=== PATIENT | male | born 1955 | race Caucasian/White ===

== ENCOUNTER 2022-12-08 07:18 | Outpatient (OUT) | payer MEDICARE, SELFPAY ==
[2022-12-08 08:17] LABS: Anion Gap 14.1; BUN Creatinine Ratio 14.8; Carbon Dioxide 26.3 mmol/L (21.0-32.0); Chloride 103 mmol/L (98-107); Estimated GFR (African America >60 (>=60); Estimated GFR (Non-African Ame >60 (>=60); Glucose 160 mg/dL (74-106); Potassium 4.4 mmol/L (3.5-5.1); Sodium 139 mmol/L (136-145)
== END 2022-12-08 07:19 | disposition home or self-care (01) ==
LOC: LAB 07:23
PROVIDERS: PCP Family Medicine
DX: I50.9 Heart failure, unspecified (principal); I25.89 Other forms of chronic ischemic heart disease
CPT/HCPCS: 36415; 80048

== ENCOUNTER 2023-01-14 08:23 | Outpatient (OUT) | payer MEDICARE, SELFPAY ==
--- NOTE | 2023-01-14 08:27 | CT_ITS ---
The [address] [address] Patient Name: LORENA CAMPOS MRN: [id number] date: 1955 Sex: M Assigned Patient Location: CT Current Patient Location: CT Accession/Order Number: [id number] Exam Date: 01/14/2023 08:30 Report Date: 01/14/2023 16:01 At the request of: TOÑA CACERES Procedure: CT chest wo con CT chest wo con CLINICAL HISTORY: Solitary Pulmonary Nodule R91.1 COMPARISON: 01/19/2022. 03/30/2021. CT CHEST TECHNIQUE: Noncontrast axial CT images obtained from lung apices through lung bases. Coronal and sagittal reconstructions performed. Dose reduction techniques were achieved by using automated exposure control and/or adjustment of mA and/or kV according to patient size and/or use of iterative reconstruction technique. CT CHEST FINDINGS: Lower thyroid unremarkable. No axillary adenopathy. Thoracic spondylosis without acute bony process. Visualized upper abdomen is unremarkable. Cardiomegaly and coronary artery calcifications. No pericardial effusion. No mediastinal adenopathy. Lungs with minimal scarring. No active airspace opacities or effusions. No interval dominant lesion. No chronic interstitial lung disease or bronchiectasis. Anterior left lower lobe subpleural 6 mm noncalcified nodule on image 63 of series 3 is stable. 3 mm right lower lobe noncalcified nodule on image [address]/CT chest wo con IMPRESSION: Stable bilateral lower lobe nodules back to February 2021. Most consistent with benign granulomas. No interval acute process or other significant change. Electronically authenticated by: LONDON GARCIA Date: 01/14/2023 16:01
== END 2023-01-14 08:24 | disposition home or self-care (01) ==
LOC: CT 08:23
PROVIDERS: PCP Family Medicine; Visit Provider Internal Medicine
DX: R91.1 Solitary pulmonary nodule (principal)
CPT/HCPCS: 71250

== ENCOUNTER 2023-04-05 09:09 | Outpatient (OUT) | payer MEDICARE, SELFPAY ==
[2023-04-05 09:48] LABS: Estimated Average Glucose 154 mg/dL
== END 2023-04-05 09:10 | disposition home or self-care (01) ==
LOC: LAB 09:11
PROVIDERS: PCP Family Medicine; Visit Provider Family Medicine
DX: E11.65 Type 2 diabetes mellitus with hyperglycemia (principal)
CPT/HCPCS: 36415; 83036

== ENCOUNTER 2023-04-05 09:15 | Outpatient (OUT) | payer MEDICARE, SELFPAY ==
[2023-04-05 09:36] LABS: Basophils Percent Auto 0.5 % (0.2-2.0); Eosinophils Absolute Auto 0.2 10^3/uL (0.0-0.7); Hematocrit 40.9 % (42.0-54.0); Hemoglobin 13.7 g/dL (14.0-18.0); Immature Granulocytes Abs Auto 0.01 10^3/uL (0.00-0.03); Immature Granulocytes Pct Auto 0.2 % (0.0-0.5); Lymphocytes Absolute Auto 1.5 10^3/uL (1.2-3.8); Lymphocytes Percent Auto 26.6 % (20.5-60.0); Mean Corpuscular HGB Conc 33.5 g/dL (29.9-35.2); Mean Corpuscular Hemoglobin 30.5 pg (25.9-34.0); Mean Corpuscular Volume 91.1 fL (80.0-94.0); Mean Platelet Volume 10.6 fL (9.5-13.5); Monocytes Absolute Auto 0.5 10^3/uL (0.3-0.8); Monocytes Percent Auto 8.5 % (1.7-12.0); Neutrophils Absolute Auto 3.3 10^3/uL (1.4-6.5); Neutrophils Percent Auto 60.2 % (43.0-75.0); Platelet Count 140 10^3/uL (150-450); Red Blood Count 4.49 10^6/uL (4.70-6.10); Red Cell Distribution Width 13.1 % (11.0-15.0); White Blood Count 5.5 10^3/uL (4.0-11.0)
[2023-04-05 09:59] LABS: Anion Gap 14.6; BUN Creatinine Ratio 17.1; Calcium 8.9 mg/dL (8.5-10.1); Carbon Dioxide 25.7 mmol/L (21.0-32.0); Chloride 101 mmol/L (98-107); Estimated GFR (African America >60 (>=60); Estimated GFR (Non-African Ame >60 (>=60); Glucose 139 mg/dL (74-106); Potassium 4.3 mmol/L (3.5-5.1); Sodium 137 mmol/L (136-145)
== END 2023-04-05 09:16 | disposition home or self-care (01) ==
LOC: LAB 09:16
PROVIDERS: PCP Family Medicine
DX: R94.31 Abnormal electrocardiogram [ECG] [EKG] (principal); E11.65 Type 2 diabetes mellitus with hyperglycemia; Z79.899 Other long term (current) drug therapy; E78.5 Hyperlipidemia, unspecified; R53.83 Other fatigue
CPT/HCPCS: 36415; 80048; 83036; 85025

== ENCOUNTER 2023-08-13 07:07 | Outpatient (OUT) | payer MEDICARE, SELFPAY ==
--- OUTSIDE RECORDS SUMMARY | 2023-08-13 07:19 | XMS_ITS | CCD ---
Author Name Unknown Address [id number] [place] [address] Organization [facility] Care Team Providers Care Lay Out Inspector Name Role Phone Cristina Benítez Unavailable Adam Leo Unavailable Akil Morrow Unavailable Cristina Benítez Unavailable Unavailable Unavailable CRISTINA BENÍTEZ Primary Care Physician [phone] Cristina Benítez Un[address]. Cristina Benítez Primary Care Unav ailable Primo Stevens Attending Unavailable MD Kushal Page Admitting Unavailable NONE, XXXX Referring Unavailable MD Kushal Page Attending Unavailable MD Kushal Page Admitting Unavailable NONE, XXXX Referring Unavailable MD Kushal Page Attending Unavailable MD Kushal Page Admitting Unavailable MD Kushal Page Attending Unavailable MD Kushal Page Referring Unavailable MD Kushal Page Admitting Unavailable MD Kushal Page Attending Unavailable MD Kushal Page Admitting Unavailable MD Kushal Page Attending Unavailable NONE, XXXX Referring Unavailable MD Kushal Page Attending Unavailable MD Kushal Page Admitting Unavailable DR DOMINIC ROMEO LISTED Primary Care Unavailmelo ANTONIO, DR LORENA Banks Consulting Unavailable TOÑA MARIN Admitting Unavailable TOÑA MARIN Attending Unavailable TOÑA MARIN Consulting Unavailable MISC, DR FLORES Attending Unavailable JEYSON, DR CRISTINA Albarado Primary Care Unavailable MISC, DR FLORES Admitting Unavailable MISC, DR FLORES Consulting Unavailable MISC, DR FLORES Attending Unavailable DR CRISTINA BENÍTEZ Primary Care Unavailable MISC, DR FLORES Admitting Unavailable MISC, DR FLORES Consulting Unavailable BENÍTEZ, DR CRISTINA Albarado Admitting Unavailable BENÍTEZ, DR CRISTINA Albarado Primary Care Unavailable BENÍTEZ, DR CRISTINA Albarado Consulting Unavailable BENÍTEZ, DR CRISTINA Albarado Attending Unavailable Stevens, Dr. Oswald Attending Unavailable Benítez, Dr. Cristina Cunha Primary Care Unav ailable Stevens, Dr. Oswald Referring Unavailable Stevens, Dr. Oswald Attending Unavailable Jeyson, Dr. Cristina Cunha Primary Care Unav ailable Stevens, Dr. Oswald Referring Unavailable Benítez, Dr. Cristina Cunha Primary Care Unav ailable Stevens, Dr. Oswald Attending Unavailable Stevens, Dr. Oswald Referring Unavailable Benítez, Dr. Cristina Cunha Primary Care Unav ailable Stevens, Dr. Oswald Referring Unavailable Stevens, Dr. Oswald Attending Unavailable Stevens, Dr. Oswald Attending Unavailable Benítez, Dr. Cristina Cunha Primary Care Unav ailable Stevens, Dr. Oswald Referring Unavailable Benítez, Dr. Cristina Cunha Primary Care Unav ailable Stevens, Dr. Oswald Referring Unavailable Stevens, Dr. Oswald Attending Unavailable Stevens, Dr. Oswald Attending Unavailable Benítez, Dr. Cristina Cunha Primary Care Unav ailable Stevens, Dr. Oswald Referring Unavailable Kelly Jane Unavailable PRIMO STEVENS Attending Unavailable CRISTINA BENÍTEZ Primary Care Unavailable Allergies Allergy Classification Reported Allergen(s) Allergy Type Date of Onset Reaction(s) Facility (1 source) No Known Medication Allergies; Translations: [No Known Medication Allergies] Propensity to adverse reactions (disorder) [facility] (10 sources) dapagliflozin; Translations: [Farxiga TABS] Drug Allergy [place] [address] DO Work Phone: Medications Current Medications Medication Drug Class(es) Dates Sig (Normalized) Sig (Original) allopurinol 300 mg oral tablet (20 sources) Xanthine Oxidase Inhibitor Start: 06-03-2022 take 1 tablet by mouth every twenty-four hours Allopurinol 300 MG 1 tablet Orally Once a day for 90 days May, Active Start: 03-06-2020 allopurinol 30 0 mg Tab 150 mg = 0.5 tab(s), Oral, Daily, Gout pain Start Date: 03/06/20 Status: Ordered Allopurinol Acti ve apixaban 5 mg oral tablet (1 source) Factor Xa Inhibitor take 1 tablet by mouth twice daily Eliquis 5 mg oral tablet ; 1 tab(s) orally 2 times a day Quantity: 0 Refills: 0 Ordered: 07-Oct-2020 Andreia Petersen Generic Substitution Allowed Aspir-81 (8 sources) Aspir-81 Active clopidogrel 75 mg oral tablet (20 sources) [id number] Platelet Inhibitor Start: 2 End: 3 take 1 tablet by mouth once daily Plavix 75 mg Tab 75 mg = 1 tab(s), Oral, Daily, X 90 day(s), # 90 tab(s), Refills(s) 3, Pharmacy: [facility]/pharmacy #[id number], 178, cm, 01/23/22 14:05:00 EDT, Height/Length Dosing, 170, kg, 01/23/22 14:05:00 EDT, Weight Dosing Start Date: 01/24/22 Stop Date: 01/19/23 Status: Ordered Start: 01-23-2022 take 4 tablets by mouth once P lavix 75 mg Tab 300 mg = 4 tab(s), Oral, Once, 300 mg Loading Dose, # 4 tab(s), Refills(s) 0, Pharmacy: [facility]/pharmacy #[id number], 178, cm, 01/23/22 14:05:00 EDT, Height/Length Dosing, 170, kg, 01/23/22 14:05:00 EDT, Weight Dosing Start Date: 01/24/22 Status: Ordered Clopidogrel Bisu lfate Active take 1 tablet by inocencio th once daily Clopidogrel Bisulfate 75 MG Oral Tablet TAKE 1 TABLET DAILY. Quantity: 0 Refills: 0 Ordered: 21-Apr-2021 DO Active colchicine 0.6 mg oral capsule (20 sources) Start: 03-06-2020 take 1 capsule by mouth once daily as needed for pain colchicine 0.6 mg oral capsule 0.6 mg = 1 cap(s), Oral, Daily, PRN Gout pain, Refills(s) 0 Start Date: 03/06/20 Status: Ordered Colchicine 0.6 M G 1 tablet prn Active Colchicine 0.6 M G Oral Capsule as needed Quantity: 0 Refills: 0 Ordered: 06-Jul-2022 DO Active cyclobenzaprine hydrochloride 10 mg oral tablet (2 sources) Muscle Relaxant Start: 05-07-2023 take 1 tablet by mouth three times daily as needed for pain Cyclobenzaprine HCl 10 MG 1 tab(s) Orally tid prn prn back pain and stiffness Apr, Active 0.5 ml dulaglutide 1.5 mg/ml auto-injector (11 sources) GLP-1 Receptor Agonist Start: 06-29-2022 Trulicity 0.75 MG/0.5ML as directed Subcutaneous weekly for 28 days May, Active Trulicity 0.75 M G/0.5ML Subcutaneous Solution Pen-injector 1 weekly shot Quantity: 0 Refills: 0 Ordered: 06-Jul-2022 DO Active DULoxetine 60 mg delayed release oral capsule (6 sources) Serotonin and Norepinephrine Reuptake Inhibitor Start: 11-05-2022 take 1 capsule by mouth every twenty-four hours Cymbalta 60 MG 1 capsule Orally Once a day for 30 days Oct, Active losartan potassium 50 mg oral tablet (20 sources) Angiotensin 2 Receptor Sally Start: 10-09-2021 End: 10-04-2022 take 1 tablet by mouth twice daily losartan 50 mg Tab 50 mg = 1 tab(s), Oral, BID, X 90 day(s), # 180 tab(s), Refills(s) 3, Pharmacy: [facility]/pharmacy #[id number], 178, cm, 06/20/21 9:09:00 EST, Height/Length Dosing, 166, kg, 06/20/21 9:09:00 EST, Weight Dosing Start Date: 10/09/21 Stop Date: 10/04/22 Status: Ordered Losartan Potassi um Active take 1 tablet by mouth once dudley y Losartan Potassium 50 MG Oral Tablet TAKE 1 TABLET DAILY. Quantity: 0 Refills: 0 Ordered: 14-Apr-2021 DO Active Magnesium (3 sources) Magnesium 400 MG 1 tablet once a day Active metFORMIN hydrochloride 500 mg oral tablet (20 sources) Biguanide Start: 03-06-2020 take 1 tablet by mouth once daily metformin 500 mg ER Tab 500 mg = 1 tab(s), Oral, Daily, High blood sugar Start Date: 03/06/20 Status: Ordered take 1 tablet by mouth once dudley y metFORMIN HCl ER 750 MG TAKE 1 TABLET BY MOUTH EVERY DAY Active metFORMIN HCl Ac tive take 1 tablet by mouth twice alda ly metFORMIN 750 mg oral tablet, extended release ; 1 tab(s) orally 2 times a day Quantity: 0 Refills: 0 Ordered: 07-Oct-2020 Andreia Petersen Generic Substitution Allowed modafinil 200 mg oral tablet (4 sources) Sympathomimetic-like Agent take 1 tablet by mouth every twenty-four hours Modafinil 200 MG 1 tablet once a day Active take 1 tablet by mouth once dudley y Modafinil 100 MG Oral Tablet TAKE 1 TABLET DAILY. Quantity: 0 Refills: 0 Ordered: 15-Feb-2023 DO Active Multivitamin preparation (9 sources) Multivitamin Act trish take 1 tablet by mouth once dudley y Multiple Vitamins oral tablet ; 1 tab(s) orally once a day Quantity: 0 Refills: 0 Ordered: 07-Oct-2020 Andreia Petersen Generic Substitution Allowed Multivitamin, Therapeutic w/ Minerals (7 sources) Start: 06-21-2020 take 1 tablet by mouth once daily Multivitamin, Therapeutic w/ Minerals 1 tab(s), Oral, Daily, Prophylaxis Start Date: 06/21/20 Status: Ordered naproxen 500 mg oral tablet (7 sources) Nonsteroidal Anti-inflammatory Drug Start: 06-08-2020 take 1 tablet by mouth every twelve hours at mealtime as needed Naproxen 500 MG 1 tablet with food or milk as needed Orally every 12 hrs for 10 days May, Active Start: 06-08-2020 Naproxen 500 M G Oral Tablet Quantity: 20 Refills: 0 Ordered: 08-Jun-2020 DO Start : 08-Jun-2020 Complete predniSONE 20 mg oral tablet (2 sources) Start: 05-07-2023 take 1 tablet by mouth every twelve hours predniSONE 20 MG 1 tablet Orally bid for 5 day(s) Apr, Active 24 hr venlafaxine 37.5 mg extended release oral tablet (20 sources) Serotonin and Norepinephrine Reuptake Inhibitor Start: 06-21-2020 take 1 tablet by mouth once daily venlafaxine 37.5 mg oral tablet, extended release 37.5 mg = 1 tab(s), Oral, Daily, Anxiety Start Date: 06/21/20 Status: Ordered take 1 tablet by mouth once dudley y Venlafaxine HCl ER 225 MG TAKE 1 TABLET BY MOUTH EVERY DAY for 90 Active Venlafaxine HCl Active Completed/Discontinued Medications Medication Drug Class(es) Dates Sig (Normalized) Sig (Original) acetaminophen 325 mg / HYDROcodone bitartrate 5 mg oral tablet (2 sources) Opioid Agonist Start: 03-30-2021 HYDROcodone-Aceta minophen 5-325 MG Oral Tablet Quantity: 18 Refills: 0 Ordered: 30-Mar-2021 DO Start : 30-Mar-2021 Complete amoxicillin 875 mg / clavulanate 125 mg oral tablet (2 sources) Penicillin-class Antibacterial Start: 03-30-2021 Amoxicillin-Pot Clavulanate 875-125 MG Oral Tablet Quantity: 14 Refills: 0 Ordered: 30-Mar-2021 DO Start : 30-Mar-2021 Complete aspirin 81 mg delayed release oral tablet (20 sources) Platelet Aggregation Inhibitor, Nonsteroidal Anti-inflammatory Drug Start: 08-17-2022 Aspirin EC 81 MG TBEC TAKE 1 TABLET DAILY. Quantity: 90 Refills: 3 Ordered: 17-Aug-2022 Primo Stevens MD Start : 17-Aug-2022 Active Start: 01-21-2022 aspirin 81 mg oral capsule Refills(s) 0 Start Date: 01/21/22 Status: Ordered Aspirin 81 MG TA BS TAKE 1 TABLET DAILY. Quantity: 0 Refills: 0 Ordered: 31-Dec-2021 DO Active take 1 tablet by inocencio th once daily aspirin 81 mg oral tablet, chewable ; 1 tab(s) orally once a day Quantity: 0 Refills: 0 Ordered: 07-Oct-2020 Andreia Petersen Generic Substitution Allowed atorvastatin 40 mg oral tablet (20 sources) HMG-CoA Reductase Inhibitor Start: 09-22-2022 take 1 tablet by mouth at bedtime Atorvastatin Calcium 40 MG Oral Tablet TAKE 1 TABLET AT BEDTIME. Quantity: 90 Refills: 3 Ordered: 22-Sep-2022 Primo Stevens MD Start : 22-Sep-2022 Active Start: 05-17-2020 take 2 tablets by mo [facility] at bedtime atorvastatin 40 mg Tab 80 mg = 2 tab(s), Oral, Bedtime, Refills(s) 0, High cholesterol Start Date: 05/17/20 Status: Ordered Atorvastatin Davide cium Not-Taking take 1 tablet by inocencio th once daily Atorvastatin Calcium 10 MG Oral Tablet TAKE 1 TABLET DAILY DIRECTED. Quantity: 0 Refills: 0 Ordered: 21-Apr-2021 DO Active take 1 tablet by inocencio th once daily at bedtime atorvastatin 40 mg oral tablet ; 1 tab(s) orally once a day (at bedtime) Quantity: 0 Refills: 0 Ordered: 07-Oct-2020 Andreia Petersen Generic Substitution Allowed carvedilol 3.125 mg oral tablet (8 sources) alpha-Adrenergic Sally, beta-Adrenergic Sally Start: 07-19-2020 Carvedilol 3.125 MG Oral Tablet Quantity: 180 Refills: 0 Ordered: 19-Jul-2020 DO Start : 19-Jul-2020 Complete Carvedilol Activ e take 1 tablet by mouth twice alda ly carvedilol 3.125 mg oral tablet ; 1 tab(s) orally 2 times a day Quantity: 0 Refills: 0 Ordered: 07-Oct-2020 Anderia Petersen Status: Discontinued Generic Substitution Allowed dapagliflozin 10 mg oral tablet (4 sources) Sodium-Glucose Cotransporter 2 Inhibitor Start: 08-17-2022 take 1 tablet by mouth once daily in the morning Farxiga 10 MG Oral Tablet TAKE 1 TABLET BY MOUTH EVERY MORNING Quantity: 90 Refills: 0 Ordered: 17-Aug-2022 Primo Stevens MD Start : 17-Aug-2022 Active furosemide 20 mg oral tablet (9 sources) Loop Diuretic Start: 07-06-2022 take 0.5 tablet by mouth once daily Furosemide 20 MG Oral Tablet TAKE 0.5 TABLET Daily Quantity: 45 Refills: 3 Ordered: 06-Jul-2022 Primo Stevens MD Start : 06-Jul-2022 Active dose decreased Start: 07-01-2021 End: 04-09-2023 take 1 tablet by mouth once daily furosemide 20 mg Tab 20 mg = 1 tab(s), Oral, Daily, X 90 day(s), # 90 tab(s), Refills(s) 3, Pharmacy: [facility]/pharmacy #[id number], 179, cm, 03/09/22 11:22:00 EDT, Height/Length Dosing, 171, kg, 03/09/22 11:22:00 EDT, Weight Dosing Start Date: 04/14/22 Stop Date: 04/09/23 Status: Ordered Ketorolac (8 sources) Nonsteroidal Anti-inflammatory Drug, Cyclooxygenase Inhibitor Start: 01-31-2015 Toradol per 15 mg Jan, 60 mg magnesium oxide 400 mg oral tablet (20 sources) Start: 12-21-2022 take 1 tablet by mouth once daily Magnesium Oxide -Mg Supplement 400 (240 Mg) MG Oral Tablet TAKE 1 TABLET BY MOUTH EVERY DAY Quantity: 90 Refills: 3 Ordered: 21-Dec-2022 Kaity Rodriguez Start : 21-Dec-2022 Active Start: 10-09-2020 Magnesium Oxid e 400 MG Oral Tablet Quantity: 90 Refills: 0 Ordered: 02-Apr-2021 DO Start : 09-Oct-2020 Complete Start: 10-09-2020 End: 04-06-2021 take 1 tablet by mouth once daily magnesium oxide 400 mg (241.3 mg elemental magnesium) oral tablet ; 1 tab(s) orally once a day Quantity: 30 Refills: 5 Ordered: 09-Oct-2020 Deann Zuñiga Start: 09-Oct-2020 End: 06-Apr-2021 Generic Substitution Allowed Multi Vitamin Oral Tablet (20 sources) take 1 tablet by mouth once daily Multi Vitamin Oral Tablet TAKE 1 TABLET DAILY. Quantity: 0 Refills: 0 Ordered: 14-Apr-2021 DO Active omeprazole 20 mg delayed release oral capsule (20 sources) Proton Pump Inhibitor Start: 12-09-19 22 take 1 capsule by mouth once daily Omeprazole 20 MG Oral Capsule Delayed Release TAKE 1 CAPSULE Daily Quantity: 90 Refills: 3 Ordered: 08-Dec-2021 DO Start : 08-Dec-2021 Active rivaroxaban 20 mg oral tablet (20 sources) Factor Xa Inhibitor Start: 04-23-20 21 take 1 tablet by mouth once daily at mealtime Xarelto 20 MG Oral Tablet TAKE 1 TABLET DAILY WITH BIGGEST MEAL OF THE DAY. Quantity: 90 Refills: 0 Ordered: 03-Feb-2023 Primo Stevens MD Start : 23-Apr-2021 Active rosuvastatin calcium 20 mg oral tablet (15 sources) HMG-CoA Reductase Inhibitor Start: 08-18-19 23 take 1 tablet by mouth once daily Rosuvastatin Calcium 20 MG Oral Tablet TAKE 1 TABLET DAILY. Quantity: 90 Refills: 0 Ordered: 17-Aug-2022 Primo Stevens MD Start : 17-Aug-2022 Active sacubitril 49 mg / valsartan 51 mg oral tablet (19 sources) Angiotensin 2 Receptor Sally Start: 11-24-19 take 1 tablet by mouth twice daily Entresto 49-51 MG Oral Tablet TAKE 1 TABLET BY MOUTH TWICE A DAY Quantity: 180 Refills: 3 Ordered: 23-Nov-2022 Primo Stevens MD Start : 23-Nov-2022 Active dose change Start: 07-06-2022 take 1 tablet by inocencio th twice daily Entresto 24-26 MG Oral Tablet TAKE 1 TABLET BY MOUTH TWICE A DAY Quantity: 180 Refills: 0 Ordered: 17-Aug-2022 Primo Stevens MD Start : 06-Jul-2022 Active stop losartan/ new start sotalol hydrochloride 80 mg oral tablet (20 sources) Antiarrhythmic Start: 10-05-2022 take 1 tablet by mouth twice daily Sotalol HCl - 80 MG Oral Tablet TAKE 1 TABLET BY MOUTH TWICE DAILY Quantity: 180 Refills: 3 Ordered: 05-Oct-2022 Primo Stevens MD Start : 05-Oct-2022 Active Start: 07-07-2021 End: 05-29-2023 take 1 tablet by mouth twice daily Sotalol HCl - 120 MG Oral Tablet take 1 tablet by mouth twice a day Quantity: 180 Refills: 3 Ordered: 07-Jul-2021 Adam Leo MD Start : 07-Jul-2021 Active Start: 10-09-2020 End: 04-06-2021 take 1 tablet by mouth twice daily sotalol 120 mg Tab 120 mg = 1 tab(s), Oral, BID, Rx per DR Leo, # 60 tab(s), Refills(s) 0, other reason (Rx) Start Date: 11/05/20 Status: Ordered sulfamethoxazole 800 mg / trimethoprim 160 mg oral tablet (2 sources) Dihydrofolate Reductase Inhibitor Antibacterial, Sulfonamide Antimicrobial Start: 04-08-2021 Sulfamethoxazole-Trimethopri m 800-160 MG Oral Tablet Quantity: 14 Refills: 0 Ordered: 08-Apr-2021 DO Start : 08-Apr-2021 Complete triamcinolone acetonide 40 mg/ml injectable suspension (10 sources) Corticosteroid Start: 05-07-2023 Kenalog-40 Apr, 40 m g Start: 10-25-2018 ELIZABETH Newton 10 leandro ravi September, 60 mg Problems Active Problems Problem Classification Problem Date Documented Date Episodic/Chronic Administrative/social admission (17 sources) Follow-up status; Translations: [Other specified counseling] Episodic Anxiety disorders (7 sources) Anxiety 06-21-2020 Chronic Blindness and vision defects (16 sources) Visual impairment; Translations: [Unqualified visual loss, 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 Cardiac dysrhythmias (20 sources) Persistent atrial fibrillation; Translations: [Atrial fibrillation] Onset: 3 2020 Chronic Coagulation and hemorrhagic disorders (2 sources) Other thrombophilia; Translations: [Other thrombophilia (CMS/HCC)] Onset: 4 Chronic Conduction disorders (10 sources) Chronotropic incompetence; Translations: [Other specified conduction disorders] Chronic Congestive heart failure; nonhypertensive (19 sources) Congestive heart failure stage C; Translations: [Congestive heart failure, unspecified] Onset: 3 Chronic Coronary atherosclerosis and other heart disease (20 sources) Coronary arteriosclerosis; Translations: [Coronary atherosclerosis of unspecified type of vessel, [place] or graft] Onset: 3 Chronic Coronary atherosclerosis and other heart disease (16 sources) Stented coronary artery; Translations: [Percutaneous transluminal coronary angioplasty status] Episodic Diabetes mellitus with complications (14 sources) Type 2 diabetes mellitus; Translations: [Type 2 diabetes mellitus with hyperglycemia] Onset: 3 Chronic Diabetes mellitus without complication (17 sources) Diabetes mellitus; Translations: [Diabetes mellitus without mention of complication, type II or unspecified type, not stated as uncontrolled] Onset: 3 Chronic Diabetes mellitus without complication (16 sources) Prediabetes; Translations: [Hyperglycemia] Onset: 3 06-21-2020 Episodic Disorders of lipid metabolism (20 sources) Hypercholesterolemia; Translations: [Hyperlipidemia] Onset: 3 06-21-2020 Chronic Esophageal disorders (7 sources) Gastroesophageal reflux disease 04-09-2016 Chronic Essential hypertension (18 sources) Hypertensive disorder; Translations: [Essential hypertension] Onset: 3 04-18-2020 Chronic Fracture of upper limb (7 sources) Fracture at wrist and/or hand level 06-21-2020 Episodic Gout and other crystal arthropathies (15 sources) Gout; Translations: [Gouty arthritis of toe] 06-21-2020 Chronic Malaise and fatigue (7 sources) Fatigue; Translations: [Other malaise and fatigue] Episodic Nonspecific chest pain (1 source) Chest pain; Translations: [Chest pain, unspecified] Episodic Other aftercare (20 sources) Drug therapy finding; Translations: [Long-term (current) use of other medications] Episodic Other aftercare (16 sources) Long-term current use of anticoagulant; Translations: [Long-term (current) use of anticoagulants] Episodic Other aftercare (10 sources) Treatment changed; Translations: [Long-term (current) use of other medications] Episodic Other aftercare (3 sources) Other continuous churn buttermaker (current) drug therapy; Translations: [OTH THRILL PERFORMER CURRENT DRUG THERAPY] Onset: 3 Episodic Other aftercare (1 source) [facility] (current) use of anticoagulants; Translations: [THRILL PERFORMER CURRNT USE ANTICOAGULANTS] Onset: 3 Episodic Other connective tissue disease (10 sources) Muscle pain; Translations: [Myalgia and myositis, unspecified] Episodic Other infections; including parasitic (14 sources) Personal history of other infectious and parasitic diseases; Translations: [Personal history of COVID-19] Episodic Other lower respiratory disease (20 sources) Dyspnea; Translations: [Shortness of breath] Episodic Other lower respiratory disease (1 source) Shortness of breath; Translations: [Shortness of breath] Onset: 3 Episodic Other nutritional; endocrine; and metabolic disorders (4 sources) Morbid obesity; Translations: [Morbid obesity] Chronic Other nutritional; endocrine; and metabolic disorders (20 sources) Body mass index 40+ - severely obese; Translations: [Morbid obesity] Chronic Other nutritional; endocrine; and metabolic disorders (1 source) Body mass index (BMI) 50.0-59.9, adult Chronic Other screening for suspected conditions (not mental disorders or infectious disease) (20 sources) Electrocardiogram abnormal; Translations: [Nonspecific abnormal electrocardiogram [ECG] [EKG]] Onset: 3 Episodic Daphne-; endo-; and myocarditis; cardiomyopathy (except that caused by tuberculosis or sexually transmitted disease) (20 sources) Cardiomyopathy; Translations: [Other primary cardiomyopathies] Onset: Chronic Residual codes; unclassified (8 sources) Sleep apnea; Translations: [Obstructive sleep apnea (adult)(pediatric)] 06-21-2020 Chronic Residual codes; unclassified (19 sources) Obstructive sleep apnea syndrome; Translations: [Obstructive sleep apnea (adult)(pediatric)] Chronic Residual codes; unclassified (1 source) Obstructive sleep apnea (adult) (pediatric) Chronic Residual codes; unclassified (9 sources) Non-smoker; Translations: [Other specified conditions influencing health status] Episodic Residual codes; unclassified (16 sources) Poor short-term memory ; Translations: [Memory loss] Episodic Sprains and strains (1 source) Strain of muscle, fascia and tendon of lower back, initial encounter Episodic Transient cerebral ischemia (16 sources) Transient cerebral ischemia; Translations: [Unspecified transient cerebral ischemia] Chronic Unclassified (2 sources) DRUG LOADING WITH SOTALOL 09-26-2020 Comment on above: DRUG LOADING WITH SO TALOL Viral infection (7 sources) Disease caused by 2019-nCoV; Translations: [Other specified viral infection] Episodic Past or Other Problems Problem Classification Problem Date Documented Da te Episodic/Chronic Other lower respiratory disease (4 sources) Solitary pulmonary nodule; Translations: [SOLITARY PULMONARY NODULE] Onset: 01-19-2022 Episodic Residual codes; unclassified (20 sources) H/O: obesity; Translations: [Personal history of other specified diseases] Resolved: 12-31-2021 Episodic Unclassified (16 sources) Never smoked tobacco; Translations: [Never smoker] Unclassified (16 sources) Patient status finding; Translations: [Patient new to provider] Results Test Name Value Interpretation Reference Range Facility Office Visit (Cardiology)on 02-15-2023 Follow-up visit Diagnoses/Problems Assessed Anticoagulant long-term use (V58.61) (Z79.01) CAD (coronary artery disease) (414.00) (I25.10) CHF (NYHA class II, ACC/AHA stage C) (428.0) (I50.9) Diabetes mellitus (250.00) (E11.9) Encounter to discuss test results (V65.49) (Z71.2) High risk medication use (V58.69) (Z79.899) 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) Morbid obesity with BMI of 50.0-59.9, adult (278.01,V85.43) (E66.01,Z68.43) Obstructive sleep apnea syndrome (327.23) (G47.33) Personal history of COVID-19 (V12.09) (Z86.16) SOB (shortness of breath) (786.05) (R06.02) Stented coronary artery (V45.82) (Z95.5) TIA (transient ischemic attack) (435.9) (G45.9) 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) Never smoker Hyperlipidemia (272.4) (E78.5) Fatigue (780.79) (R53.83) Cardiomyopathy (425.4) (I42.9) Sleep apnea treated with continuous positive airway pressure (CPAP) (327.23) (G47.30) Atrial fibrillation (427.31) (I48.91) Abnormal EKG (794.31) (R94.31) Orders Abnormal EKG Basic Metabolic Panel; Status:Active - Retrospective Authorization; Requested for:[id number]; Abnormal EKG, Fatigue, High risk medication use, Hyperlipidemia Complete Blood Count; Status:Active - Retrospective Authorization; Requested for:[id number]; Atrial fibrillation IO EKG Electrocardiogram- 12 Lead; Status:Complete; Done: [id number] Morbid obesity with BMI of 50.0-59.9, adult Healthy Weight Tips; Status:Complete - Retrospective Authorization; Done: [id number] Some eating tips that can help you lose weight.; Status:Complete - Retrospective Authorization; Done: [id number] SocHx: Never smoker Tobacco Use Screening; Status:Complete; Done: [id number] Patient Instructions Please bring all medicines, vitamins, and herbal supplements with you when you come to the office. Prescriptions will not be filled unless you are compliant with your follow up appointments or have a follow up appointment scheduled as per instruction of your physician. Refills should be requested at the time of your visit. Fall Prevention education given labs Follow up in 5 months Chief Complaint LORENA CAMPOS is being seen for a 3 month follow-up of. History of Present Illness Patient is accompanied by to the office. Most recently seen October 2022 at which time Entresto dose was uptitrated. Blood pressure is now at target no symptoms of lightheadedness presyncope or syncope. Continues to have exertional shortness of breath which is clearly multifactorial. The treadmill stress test in August of this year showed profound chronotropic blunting. At that time we discontinued metoprolol. We talked about down titrating sotalol, but there is concerned that atrial fibrillation may recur, and patient historically has not tolerated atrial fibrillation. His morbid obesity is also contributory to his shortness of breath. He is not interested in pursuing bariatric surgical options. He and his have joined Novad[employer]. An EKG was done today, reviewed,No recent laboratory data to review.Reviewed Holter monitor results. Reviewed treadmill stress test results History so far : 1. Persistent atrial fibrillation controlled on sotalol and anticoagulated with Eliquis. 2. Sinus node dysfunction. Patient had profound bradycardia on combination of beta-sally and sotalol, currently remains on sotalol. 3. Coronary artery disease status post angioplasty with drug-eluting stent to the mid right coronary artery on May 16, 2020. 4. Dyslipidemia on high-dose high intensity statin. 5. Hypertension, controlled 6. Morbid obesity with a BMI of 52.95. 7. Diabetes mellitus, uncontrolled, elevated hemoglobin A1c 8. Obstructive sleep apnea on CPAP. 9. Cardiomyopathy with a left ventricular ejection fraction of 40 to 45% per 2D echocardiogram dated June 07, 2020, [place] Heart [employer] class II, stage B heart failure. 10. Gouty arthritis. Patient remains on allopurinol, no recent recurrence. 11. Abnormal perfusion imaging showing an LV ejection fraction in the 20s, with subsequent cardiac catheterization showing LV ejection fraction of 45%, this was done at [facility] and that particular Catheterization did not show any flow-limiting disease. The perfusion study was done in December 2021, cardiac catheterization from January 2022 showed nonobstructive coronary artery disease of the left system widely patent RCA stent LVEF 45% moderately dilated left ventricular chamber dimension mildly elevated LV end-diastolic pressure. 12. General stress test August 2022-4.6 METS, 72% HPJ maximum heart rate, developed shortness of breath and the study had to be terminated. Only exercised for 3 minutes per Benja protocol. There was also blunting of blood pressure response. This is consistent with chronotropic blunting. 13. [id number] score is 6 14.48-hour Holter monitor-minimum heart rate 46 bpm average heart rate 66 bpm maximum heart rate 99 bpm ventricular patience (more content not included)... Normal [employer] Tobacco Screening.on 023 Fall risk assessment b) One or more fall s in the last year [facility] 250 DO Work Phone: Tobacco use status [facility] b) No [facility] [facility] 250 DO Work Phone: Cardiovasc Arrhythmia Result son 11-30-2022 Cardiovasc Arrhythmia Results Reason For Visit Reason for Visit: Holter Monitor: LORENA is here for the application of a 48 hour Holter monitor. Ordering Physician: Dr. Primo Stevens MD Diagnosis: a-fib NO equipment agreement signed. LORENA understands monitor is to be returned on: 12/02/2022 Monitor number [id number] applied. Holter monitor returned and downloaded. Holter monitor returned and downloaded. 12/03/2022 Holter monitor printed and emailed to [place] [facility] and placed on Dr. Primo Stevens MD desk to dictate. Procedure 48-hour Holter monitor is performed to evaluate heart rate variability in patient with atrial fibrillation. Patient is 67 years old. Minimum heart rate 46 bpm occurring at 9:16 AM, average heart rate 66 bpm maximum heart rate 99 bpm. There were a total of 2164 ventricular ectopic beats, comprising 0.6% of the total QRS complexes. There was 1 ventricular triplet and 12 ventricular couplets. There were a total of 2003 supraventricular ectopic beats, comprising 1.1% of the total QRS complexes. There was a 3 beat atrial run at 6:30 PM, at a rate of 124 bpm. Longest R to R interval was 1.7 seconds and occurred at 5:37 AM. Activity log was not provided Patient did not report any cardiac symptoms. There was no atrial fibrillation identified. Summary: 1. Overall blunted heart rate, heart there were no tachy or bradycardia dysrhythmias. 2. Patient was in sinus rhythm throughout, with the exception of isolated ventricular and supraventricular premature beats. 3. Patient did not report any symptoms Diagnosis/Problems Assessed Atrial fibrillation (427.31) (I48.91) Future Appointments Date/TimeProviderSpeci altySite 02/15/2023 12:30 PMRodney Primo, [id number] [facility] [address] 250 DO Signatures Electronically signed by : Primo Stevens MD; Feb 15 2023 2:58PM EST (Author) Normal [facility] Office Visit (Cardiology)on 11-23-2022 Follow-up visit Diagnoses/Problems Assessed Atrial fibrillation (427.31) (I48.91) CAD (coronary artery disease) (414.00) (I25.10) Cardiomyopathy (425.4) (I42.9) CHF (NYHA class II, ACC/AHA stage C) (428.0) (I50.9) Diabetes mellitus (250.00) (E11.9) Hyperlipidemia (272.4) (E78.5) 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) Obstructive sleep apnea syndrome (327.23) (G47.33) Never smoker Morbid obesity with BMI of 50.0-59.9, adult (278.01,V85.43) (E66.01,Z68.43) Medication list inaccurate SOB (shortness of breath) (786.05) (R06.02) Fatigue (780.79) (R53.83) Medication course changed (V58.69) (Z79.899) Personal history of COVID-19 (V12.09) (Z86.16) Anticoagulant long-term use (V58.61) (Z79.01) Myalgia (729.1) (M79.10) Orders Atrial fibrillation IO EKG Electrocardiogram- 12 Lead; Status:Complete; Done: 23Nov2022 IO Holter Monitor up to 48 Hrs; Status:Active - Perform Order,Retrospective Authorization; Requested for:23Nov2022; CHF (NYHA class II, ACC/AHA stage C) Start: Entresto 49-51 MG Oral Tablet; TAKE 1 TABLET BY MOUTH TWICE A DAY CHF (NYHA class II, ACC/AHA stage C), Ischemic heart disease with chronotropic incompetence Basic Metabolic Panel; Status:Active - Retrospective Authorization; Requested for:[id number]; Morbid obesity with BMI of 50.0-59.9, adult Healthy Weight Tips; Status:Complete - Retrospective Authorization; Done: 23Nov2022 Some eating tips that can help you lose weight.; Status:Complete - Retrospective Authorization; Done: 23Nov2022 SocHx: Never smoker Tobacco Use Screening; Status:Complete; Done: 23Nov2022 Patient Instructions Please bring all medicines, vitamins, and herbal supplements with you when you come to the office. Prescriptions will not be filled unless you are compliant with your follow up appointments or have a follow up appointment scheduled as per instruction of your physician. Refills should be requested at the time of your visit. Follow up in [3 ] months Chief Complaint LORENA CAMPOS is being seen for 6-8 week follow up. History of Present Illness Patient was most recently seen by me September 2022 and presents for follow-up. Did not have his medications or list with him, says his lays on his medications out, and she could not accompany him to the office today. At last office visit Patient's beta-blockers had to be discontinued because of profound bradycardia and fatigue on the combination. Currently remains on sotalol 80 mg p.o. twice daily, EKG shows sinus rhythm at 82 bpm KS interval 158 ms QRS duration 102 ms QTc 450 ms, isolated ventricular premature beat is noted, and there is poor R wave progression. Low volts in general in the anterior and lateral precordial leads. Tolerating current medications, continues to remain very tired, BMI is excessive, clinically trace lower extremity edema, could not afford Farxiga, hence did not start. EKG today shows sinus rhythm at 82 bpm with isolated supraventricular premature beats, poor R wave progression across the anterior precordial leads, normal intervals, no significant change compared to EKG of 623 with the exception of supraventricular premature beats that are now noted. 1 History so far : 1. Persistent atrial fibrillation controlled on sotalol and anticoagulated with Eliquis. 2. Sinus node dysfunction. Patient had profound bradycardia on combination of beta-sally and sotalol, currently remains on sotalol. 3. Coronary artery disease status post angioplasty with drug-eluting stent to the mid right coronary artery on May 16, 2020. 4. Dyslipidemia on high-dose high intensity statin. 5. Hypertension, controlled 6. Morbid obesity with a BMI of 52.95. 7. Diabetes mellitus, uncontrolled, elevated hemoglobin A1c, Trulicity was added recently. 8. Obstructive sleep apnea on CPAP. 9. Cardiomyopathy with a left ventricular ejection fraction of 40 to 45% per 2D echocardiogram dated June 07, 2020, [place] Heart [employer] class II, stage B heart failure. 10. Gouty arthritis. Patient remains on allopurinol, no recent recurrence. 11. Abnormal perfusion imaging showing an LV ejection fraction in the 20s, with subsequent cardiac catheterization showing LV ejection fraction of 45%, this was done at [facility] and that particular Catheterization did not show any flow-limiting disease. The perfusion study was done in December 2021, cardiac catheterization from January 2022 showed nonobstructive coronary artery disease of the left system widely patent RCA stent LVEF 45% moderately dilated left ventricular chamber dimension mildly elevated LV end-diastolic pressure. 12. General stress test August 2022-4.6 METS, 72% HPJ maximum heart rate, developed shortness of breath and the study had to be terminated. Only exercised for 3 minutes per Benja protocol. There was also blunting of blood pressure response. This is consistent with chronotropic blunting. 13. [id number] score is 6 Laboratory data from September 2022 s (more content not included)... Normal [employer] Tobacco Screening.on 023 Adult depression screening assessment No [facility] 250 DO Work Phone: Fall risk assessment a) No falls within the last year [facility] 250 DO Work Phone: Tobacco use status [facility] b) No [facility] 250 DO Work Phone: BNPon 10-27-2022 Natriuretic peptide B (Bld) [Mass/Vol] 80.0 pg/mL Normal <=900.0 [facility] Comment on above: Performed By: #### B OYSTER GROWER, CK, TSH #### [facility] [address], [place] [address] Dr. Maria T Canela CPKon 10-27-2022 CK [Catalytic activity/Vol] 302 U/L Normal 39-308 [facility] Comment on above: Performed By: #### B OYSTER GROWER, CK, TSH #### [facility] [address], [place] [address] Dr. Maria T Canela FREE T4on 10-27-2022 Free T4 [Mass/Vol] 0.87 ng/dL Normal 0.76-1.46 [facility] Comment on above: Performed By: #### F T4 ####[facility] [id number] [place] [id number]. Maria T Canela GLYCOHEMOGLOBIN A1Con 2022 ADA RECOMMENDATION SEE BELOW Normal [facility] Comment on above: Result Comment: ADA RECOMMENDED LIMIT 4.0 - 6.0 ADA THERAPEUTIC TARGET < 7.0 ACTION SUGGESTED > 7.0 Performed By: #### A 1C #### [facility] [address] [place] [address] [address] Maria T Canela Glucose [Mass/Vol] 169 mg/dL Normal [facility] Comment on above: Performed By: #### A 1C #### [facility] [address] [address] [address] Maria T Canela HbA1c (Bld) [Mass fraction] 7.5 % Critically high 4.5-6.2 [facility] Comment on above: Performed By: #### A 1C #### [facility] [address] [address] [address] Maria T Canela [facility] 20[facility] SED RATE 15 mm/hr Normal <=20 [facility] Comment on above: Performed By: #### S EDR ####[facility] [address] [place] [id number]. Maria T Canela TSHon 10-27-2022 TSH 1.477 uIU/mL Normal 0.358-3.740 [facility] Comment on above: Performed By: #### B OYSTER GROWER, CK, TSH #### [facility] [address] [address] [address] Maria T Canela Office Visit (Cardiology)on 10-05-2022 Follow-up visit Diagnoses/Problems Assessed High risk medication use (V58.69) (Z79.899) Diabetes mellitus (250.00) (E11.9) CHF (NYHA class II, ACC/AHA stage C) (428.0) (I50.9) Atrial fibrillation (427.31) (I48.91) Anticoagulant long-term use (V58.61) (Z79.01) CAD (coronary artery disease) (414.00) (I25.10) Hyperlipidemia (272.4) (E78.5) Obstructive sleep apnea syndrome (327.23) (G47.33) Short-term memory loss (780.93) (R41.3) SOB (shortness of breath) (786.05) (R06.02) Stented coronary artery (V45.82) (Z95.5) Encounter to discuss test results (V65.49) (Z71.2) Morbid obesity with BMI of 50.0-59.9, adult (278.01,V85.43) (E66.01,Z68.43) Never smoker Personal history of COVID-19 (V12.09) (Z86.16) Orders Anticoagulant long-term use, Atrial fibrillation, CAD (coronary artery disease), Cardiomyopathy, CHF (NYHA class II, ACC/AHA stage C), Diabetes mellitus, High risk medication use, Hyperlipidemia Brain Natriuretic Peptide BNP; Status:Active - Retrospective Authorization; Requested for:05Oct2022; Creatine Kinase, Level; Status:Active - Retrospective Authorization; Requested for:05Oct2022; Sedimentation Rate, Erythrocyte; Status:Active - Retrospective Authorization; Requested for:05Oct2022; T4 - Free Thyroxine, Serum; Status:Active - Retrospective Authorization; Requested for:05Oct2022; TSH - Thyroid Stimulating Hormone, Serum; Status:Active - Retrospective Authorization; Requested for:05Oct2022; Atrial fibrillation Start: Sotalol HCl - 80 MG Oral Tablet; TAKE 1 TABLET BY MOUTH TWICE DAILY IO EKG Electrocardiogram- 12 Lead; Status:Complete; Done: 05Oct2022 Morbid obesity with BMI of 50.0-59.9, adult Healthy Weight Tips; Status:Complete - Retrospective Authorization; Done: 05Oct2022 Some eating tips that can help you lose weight.; Status:Complete - Retrospective Authorization; Done: 05Oct2022 SocHx: Never smoker Tobacco Use Screening; Status:Complete; Done: 05Oct2022 Patient Instructions Please bring all medicines, vitamins, and herbal supplements with you when you come to the office. Prescriptions will not be filled unless you are compliant with your follow up appointments or have a follow up appointment scheduled as per instruction of your physician. Refills should be requested at the time of your visit. patient to hold Rosuvastatin for 4 weeks to see if improvement from joint pain. Follow up in 6-8 weeks Chief Complaint LORENA CAMPOS is being seen for test results. History of Present Illness Patient with chronic systolic heart failure functional class III, progressive and persistent fatigue and some shortness of breath, morbid obesity, obstructive sleep apnea, on high risk medication, presents for follow-up after testing. At the last office visit I was considering the possibility of chronotropic blunting to be a cause of his shortness of breath. On history no stress test August 2022 he achieved a workload of 4.6 METS and only 72% of his age-predicted maximum heart rate. He had to stop exercising after 3 minutes. Blood pressure response to exercise was also blunted. Patient says he has no follow-up with EP service, and does not wish to establish follow-up at this time. Reports compliance with CPAP therapy. Also complains of diffuse aches and pains. This may or may not be related to rosuvastatin, but would be easy to figure out, we will give him a holiday from rosuvastatin. Remains on Xarelto, no bleeding diathesis. EKG was reviewed. Significant sinus bradycardia is noted. Compared to prior EKG there has been a further drop in heart rate. History so far : 1. Persistent atrial fibrillation controlled on sotalol and anticoagulated with Eliquis. 2. Sinus node dysfunction. Patient had profound bradycardia on combination of beta-sally and sotalol, currently remains on sotalol. 3. Coronary artery disease status post angioplasty with drug-eluting stent to the mid right coronary artery on May 16, 2020. 4. Dyslipidemia on high-dose high intensity statin. 5. Hypertension, controlled 6. Morbid obesity with a BMI of 52.95. 7. Diabetes mellitus, uncontrolled, elevated hemoglobin A1c, Trulicity was added recently. 8. Obstructive sleep apnea on CPAP. 9. Cardiomyopathy with a left ventricular ejection fraction of 40 to 45% per 2D echocardiogram dated June 07, 2020, [place] Heart [employer] class II, stage B heart failure. 10. Gouty arthritis. Patient remains on allopurinol, no recent recurrence. 11. Abnormal perfusion imaging showing an LV ejection fraction in the 20s, with subsequent cardiac catheterization showing LV ejection fraction of 45%, this was done at [facility] and that particular Catheterization did not show any flow-limiting disease. The perfusion study was done in December 2021, cardiac catheterization from January 2022 showed nonobstructive coronary artery disease of the left system widely patent RCA stent LVEF 45% moderately dilated left ventricular chamber dimension mildly elevated L (more content not included)... Normal [employer] Tobacco Screening.on 023 Tobacco use status [facility] b) No [facility] [facility] 250 DO Work Phone: Heart and Vascular Office/Cl inic Noteon 09-26-2022 Heart and Vascular Office/Clinic Note History of Present Illness Mr. Campos is a 66 year old male, morbidly obese with obstructive sleep apnea who uses CPAP, hypertension, unknown cholesterol but on atorvastatin, lifelong non-smoker, who returns to Cardiology office for follow up after extensive cardiac testing. He was previously seen in the office by Dr Saldaña for further evaluation of labile BP, near syncope, dizziness, and dyspnea on exertion. He had a 12 lead EKG which revealed atrial fibrillation. His orthostatic VS were negative in office. He had echocardiogram performed at [facility], which was normal. He was ordered Event Monitor, Carotid US, Stress Testing, and Ambulatory BP monitoring. Patient underwent a nuclear stress test in February 2020 which demonstrated a large fixed defect inferiorly and anterior ischemia. Patient was seen by me in consultation in the office recommended a heart catheterization which took place on 05/16/2020 with the following results: CONCLUSIONS: 1. Minimal nonobstructive disease of the left anterior descending with angiographically normal diagonal #1 and diagonal #2. 2. Angiographically normal left circumflex. 3. Significant mid-right coronary artery stenosis in a dominant right coronary artery. 4. Moderate to severe left ventricular dysfunction with regional wall motion abnormalities of the mid-anteroapical and inferoapical henry. LVEF approximate 35 to 40%. 5. Normal LVDP. It was found the patient required intervention of his RCA which took place on the same day 05/16/2020 with the following results: CONCLUSIONS: 1. Successful Heparin and Plavix assisted angioplasty and drug-eluting stenting of the mid-right coronary artery utilizing a 4.0 x 24 Promus Synergy stent, postdilated with a 4.5 x 8 noncompliant balloon with an excellent result. 2. Nonobstructive disease of his left anterior descending and angiographically normal left circumflex. 3. Moderate to severe left ventricular dysfunction. [1] In addition he underwent echocardiogram on 05/20/2020 which showed low normal EF of 50%, no wall motion abnormalities noted, normal RVSP. Stage I diastolic dysfunction. Patient underwent unsuccessful DC cardioversion on 06/25/2020 with the following results: Unsuccessful direct current cardioversion with a maximum of 200 joules of biphasic energy. He remained in atrial fibrillation. Patient will be recovered per Anesthesiology protocol. [1] patient was then referred to [facility] and was placed on sotalol followed by repeat DC cardioversion which was successful. In addition the patient underwent a Holter monitor following that on 11/14/2020 with the following results: CONCLUSIONS: Generally benign appearing Holter monitor which was mostly sinus bradycardia or sinus rhythm. Clinical correlation suggested. [2] Finally, the patient had a repeat echocardiogram to determine if sinus rhythm has improved his LV function on 06/04/2021 with the following results: (06/04/2021 10:15 EST Echo Transthoracic w/ Contrast) SUMMARY/CONCLUSION: 1. Mild left ventricular dysfunction with above noted wall motion abnormalities. Left ventricular ejection fraction is approximately 45%. 2. Stage 1 diastolic dysfunction. 3. Mild left atrial enlargement. 4. Trivial tricuspid regurgitation with normal right ventricular systolic pressure of 25 mmHg. 5. Mild ascending aortic root dilatation of 3.8 cm. 6. In comparison to echocardiogram dated 06/07/2020, no appreciable change is noted, however, the patient appears to be in normal sinus rhythm on this examination and was in atrial fibrillation at that time. [3] To better evaluate the patient's LV dysfunction recommended a stress test which took place on 01/22/2023 with the following results: (01/22/2022 12:19 EDT NM Myocardial Spect Multi Stress) CONCLUSIONS: 1. Abnormal, adequate, Lexiscan/myocardial perfusion imaging. Positive for significant left ventricular dilatation and moderate left ventricular dysfunction with an ejection fraction of 44%. 2. There is evidence of fixed inferior apical hypoperfusion which appears to worsen with peak exercise. 3. Hypertensive blood pressure response to exercise. 4. Poor exercise capacity for age. 5. No anginal symptoms noted. 6. This is an intermediate risk study. Recommend clinical correlation or additional testing for cardiac evaluation. [1] Given his known history of coronary disease and abnormal stress test he underwent repeat catheterization on 02/05/22 with the following results: CONCLUSIONS: 1. Angiographically normal left anterior descending, diagonal, and left circumflex system. 2. Widely patent right coronary artery stent with no significant in-stent restenosis. 3. Mild global left ventricular dysfunction with a left ventricular ejection fraction of 45%. 4. Moderately dilated left ventricular chamber. 5. Mildly elevated left ventricular end diastolic pressure of 20. [1] Patient acquired COVID about 5 months ago and has had a progressive dry (more content not included)... Normal [facility] Comment on above: Result Comment: Elec tronically Signed By: Camilo STARK, Kushal Galarza Other Comment: Appar ent pt no show Cardiac Stress Teston 2022 Cardiac Stress Test [address], [address] [place] [address] Exercise Stress Test Patient Name: LORENA CAMPOS Ordering Physician: [id number] Primo Stevens Study Date: 09/10/2022 Reading Physician: [id number] Kim Mckeon MD, [facility] MRN/PID: [id number] Supervising Physician: [id number] Kim Mckeon MD, [facility] Accession/Order#: [id number] Referring Physician: PRIMO STEVENS Date of : 1955 PCP: Cristina Benítez Gender: M Fellow: Height: 177.80 cm Nurse: Tigre De La Rosa RN Weight: 168.74 kg Reclamation Worker: ROB BSA: 2.72 m2 Technologist: BMI: 53.38 kg/m2 Additional Staff: Age: 66 years cc report to: Patient Location: cc report to: [id number] Primo Stevens Study Type: Cardiac Stress Test Diagnosis/ICD: R94.31-Abnormal electrocardiogram [ECG] [EKG]; I25.10-Atherosclerotic heart disease; I42.9-Cardiomyopathy, unspecified; I50.9-Heart failure, unspecified; R06.02-Shortness of breath Indication: Cardiomyopathy Procedure/CPT: Stress Test Interpretation-[id number]; Stress Test Supervision-[id number] Falls Risk: Low: Patient has low risk for sustaining a fall; environmental safety interventions in place. Study Details: Correct procedure and correct patient verified verbally. Patient History: Allergies: None. Patient Performance: The peak heart rate achieved was 112 bpm, which was 72 % of the age predicted target heart rate of 155 bpm. The resting blood pressure was 108/66 mmHg with a heart rate of 59 bpm. The standing blood pressure was 116/72 mmHg with a heart rate of 60 bpm. The patient's functional capacity was below average. The patient developed dyspnea during the stress exam. The symptoms resolved with rest. The blood pressure response was normal. The test was terminated due to: dyspnea. Baseline ECG: Resting ECG showed sinus bradycardia. Stress Stage Data: + +--- +------+-------+ HR Sys BP Jay BP + +--- +------+-------+ Baseline Resting 59 108 66 + +--- +------+-------+ Baseline Standing 60 116 72 + +--- +------+-------+ Stage I 112 138 78 + +--- +------+-------+ Recovery ECG: The heart rate recovery was normal. + +---+---- --+-------+ HR Sys BP Jay BP + +---+---- --+-------+ Recovery I 112 138 78 + +---+---- --+-------+ Recovery II 83 136 76 + +---+---- --+-------+ Recovery III 64 128 82 + +---+---- --+-------+ Recovery IV 64 112 78 + +---+---- --+-------+ Summary: 1. 1_nondiagnostic graded exercise tolerance test after completing only 3 minutes on a Benja protocol and achieving only 72% of predicted maximal heart rate and a workload of 4.6 METS. The test ended due to dyspnea. 2_no chest pain, cardiac arrhythmias or ischemic EKG changes after limited exercise tolerance test 3_poor exercise tolerance for age likely caused by deconditioning. If ischemic heart disease is suspected other modalities of investigation such as nuclear pharmacological stress test would be recommended. 2. The adequate level of stress was achieved. [id number] Kim Mckeon MD, [facility] Electronically signed on 09/10/2022 at 6:25:43 PM Final Normal [facility] Cardiac Stress Test MP-No rth [facility] y 250 DO Work Phone: Office Visit (Cardiology)on 08-17-2022 Follow-up visit Diagnoses/Problems Assessed Personal history of COVID-19 (V12.09) (Z86.16) Anticoagulant long-term use (V58.61) (Z79.01) Atrial fibrillation (427.31) (I48.91) CAD (coronary artery disease) (414.00) (I25.10) CHF (NYHA class II, ACC/AHA stage C) (428.0) (I50.9) Diabetes mellitus (250.00) (E11.9) Hyperlipidemia (272.4) (E78.5) Morbid obesity with BMI of 50.0-59.9, adult (278.01,V85.43) (E66.01,Z68.43) Obstructive sleep apnea syndrome (327.23) (G47.33) Short-term memory loss (780.93) (R41.3) SOB (shortness of breath) (786.05) (R06.02) Orders Abnormal EKG, CAD (coronary artery disease), Cardiomyopathy, CHF (NYHA class II, ACC/AHA stage C), SOB (shortness of breath) Cardiac Stress Test; Status:Hold For - Scheduling; Requested for:17Aug2022; CAD (coronary artery disease) Start: Aspirin EC 81 MG Oral Tablet Delayed Release; TAKE 1 TABLET DAILY CAD (coronary artery disease), Cardiomyopathy, CHF (NYHA class II, ACC/AHA stage C), Diabetes mellitus, Health Maintenance, Hyperlipidemia, Morbid obesity with BMI of 50.0-59.9, adult ALT - Alanine Aminotransferase, Serum; Status:Active; Requested for:17Nov2022; AST; Status:Active; Requested for:17Nov2022; Lipid Panel; Status:Active; Requested for:17Nov2022; CAD (coronary artery disease), Cardiomyopathy, CHF (NYHA class II, ACC/AHA stage C), SOB (shortness of breath), Stented coronary artery ALT - Alanine Aminotransferase, Serum; Status:Active; Requested for:28Sep2022; AST; Status:Active; Requested for:28Sep2022; Cardiomyopathy, CHF (NYHA class II, ACC/AHA stage C) Renew: Entresto 24-26 MG Oral Tablet; TAKE 1 TABLET BY MOUTH TWICE A DAY CHF (NYHA class II, ACC/AHA stage C), Diabetes mellitus Start: Farxiga 10 MG Oral Tablet; TAKE 1 TABLET BY MOUTH EVERY MORNING Hyperlipidemia Start: Rosuvastatin Calcium 20 MG Oral Tablet; TAKE 1 TABLET DAILY Morbid obesity with BMI of 50.0-59.9, adult Healthy Weight Tips; Status:Complete; Done: 17Aug2022 Some eating tips that can help you lose weight.; Status:Complete; Done: 17Aug2022 Patient Instructions Please bring all medicines, vitamins, and herbal supplements with you when you come to the office. Prescriptions will not be filled unless you are compliant with your follow up appointments or have a follow up appointment scheduled as per instruction of your physician. Refills should be requested at the time of your visit. Follow-up after testing completed Chief Complaint LORENA CAMPOS is being seen for a 6 week follow-up of. History of Present Illness Patient with atherosclerotic [place] vessel coronary artery disease, multiple cardiac risk factors including diabetes that is suboptimally controlled, increased BMI, atrial fibrillation on high risk medications sotalol and Xarelto, was most recently and initially seen by me to 623, at which time some medication changes were suggested as part of evaluation of unrelenting fatigue and memory impairment. I temporarily stopped atorvastatin, and discontinued the metoprolol succinate. Patient continues to have fatigue. Patient was also started on Entresto, and the WINTER inhibitor was discontinued. I reduced his Lasix dose as well Weight has remained without change, patient has issues with his CPAP therapy, there is air leak, his continued fatigue could be multifactorial to include poorly controlled diabetes, suboptimally treated sleep apnea and chronotropic blunting. He does not report any chest pressure tightness or heaviness. Short-term memory impairment persists. Laboratory data from 07/20/2022 was reviewed sodium 136 potassium 4.9 glucose 190 GFR greater than 60 NT proBNP level was within normal limits, hemoglobin A1c was significantly elevated at 9.4. Assessment: 1. Persistent atrial fibrillation controlled on sotalol and anticoagulated with Eliquis. 2. Sinus node dysfunction. Patient had profound bradycardia on combination of beta-sally and sotalol, currently remains on sotalol. 3. Coronary artery disease status post angioplasty with drug-eluting stent to the mid right coronary artery on May 16, 2020. 4. Dyslipidemia on high-dose high intensity statin. 5. Hypertension, controlled 6. Morbid obesity with a BMI of 52.95. 7. Diabetes mellitus, uncontrolled, elevated hemoglobin A1c, Trulicity was added recently. 8. Obstructive sleep apnea on CPAP. 9. Cardiomyopathy with a left ventricular ejection fraction of 40 to 45% per 2D echocardiogram dated June 07, 2020, [place] [employer] class II, stage B heart failure. 10. Gouty arthritis. Patient remains on allopurinol, no recent recurrence. 11. Abnormal perfusion imaging showing an LV ejection fraction in the 20s, with subsequent cardiac catheterization showing LV ejection fraction of 45%, this was done at [facility] and that particular Catheterization did not show any flow-limiting disease. The perfusion study was done in December 2021, cardiac catheterization from January 2022 showed nonobstructive coronary a (more content not included)... Normal [email or web address] Tobacco Screening.on 023 Fall risk assessment c) Not medically indicated [facility] y 250 DO Work Phone: Tobacco use status [facility] b) No [facility] 250 DO Work Phone: BNPon 07-20-2022 Natriuretic peptide B (Bld) [Mass/Vol] 72.0 pg/mL Normal <=900.0 [facility] Comment on above: Performed By: #### B MP, BNP ####[facility] [address] [place], [place] [address]Dr. Maria T Canela PROF CHEM 8 (BAS METB)on Anion gap [Moles/Vol] 11.8 mmol/L Normal [facility] Comment on above: Performed By: #### B MP, BNP ####[facility] [address] [place], [place] [address]Dr. Maria T Canela Calcium [Mass/Vol] 9.2 mg/dL Normal 8.5-10.1 [facility] Comment on above: Performed By: #### B MP, BNP ####[facility] [address] [place], [place] [address]Dr. Maria T Caneal Chloride [Moles/Vol] 101 mmol/L Normal 98-107 [facility] Comment on above: Performed By: #### B MP, BNP ####[facility] [address] [place], [place] [address]Dr. Maria T Canela CO2 [Moles/Vol] 28.1 mmol/L Normal 21.0-32.[address] [facility] Comment on above: Performed By: #### B MP, BNP ####[facility] [address] [place], [place] [address]Dr. Maria T Canela Creatinine [Mass/Vol] 0.82 mg/dL Normal 0.70-1.30 [facility] Comment on above: Performed By: #### B MP, BNP ####[facility] [address] [place], [place] [address]Dr. Maria T Canela EGFR-AF CROATIAN >60 Normal >=[address] [facility] Comment on above: Performed By: #### B MP, BNP ####[facility] [address] [place], [place] [address]Dr. Maria T Canela EGFR-NON AF CROATIAN >60 Normal >=60 [facility] Comment on above: Performed By: #### B MP, BNP ####[facility] [address] [place], [place] [address]Dr. Maria T Canela Glucose [Mass/Vol] 190 mg/dL Critically high 74-106 [facility] Comment on above: Performed By: #### B MP, BNP ####[facility] [address] [place] [address]Dr. Maria T Canela Potassium [Moles/Vol] 4.9 mmol/L Normal 3.5-5.1 [facility] Comment on above: Performed By: #### B MP, BNP ####[facility] [address] [place] [id number]. Maria T Canela Sodium [Moles/Vol] 136 mmol/L Normal 136-145 [facility] Comment on above: Performed By: #### B MP, BNP ####[facility] [address] [place] [address]Dr. Maria T Canela Urea nitrogen [Mass/Vol] 13.0 mg/dL Normal 7.0-18.0 [facility] Comment on above: Performed By: #### B MP, BNP ####[facility] [address] [place] [id number]. Maria T Canela Urea nitrogen/Creatinine [Mass ratio] 15.9 mg/mg Normal [facility] Comment on above: Performed By: #### B MP, BNP ####[facility] [address] [address]Dr. Maria T Canela Office Visit (Cardiology)on 07-06-2022 Follow-up visit Diagnoses/Problems Assessed Atrial fibrillation (427.31) (I48.91) Cardiomyopathy (425.4) (I42.9) CAD (coronary artery disease) (414.00) (I25.10) SOB (shortness of breath) (786.05) (R06.02) High risk medication use (V58.69) (Z79.899) TIA (transient ischemic attack) (435.9) (G45.9) Diabetes mellitus (250.00) (E11.9) Anticoagulant long-term use (V58.61) (Z79.01) Patient new to provider Hyperlipidemia (272.4) (E78.5) Obstructive sleep apnea syndrome (327.23) (G47.33) Morbid obesity with BMI of 50.0-59.9, adult (278.01,V85.43) (E66.01,Z68.43) 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) Stented coronary artery (V45.82) (Z95.5) CHF (NYHA class II, ACC/AHA stage C) (428.0) (I50.9) Abnormal EKG (794.31) (R94.31) Short-term memory loss (780.93) (R41.3) Orders Atrial fibrillation IO EKG Electrocardiogram- 12 Lead; Status:Complete; Done: 06Jul2022 Cardiomyopathy, CHF (NYHA class II, ACC/AHA stage C) Start: Entresto 24-26 MG Oral Tablet; TAKE 1 TABLET BY MOUTH TWICE A DAY Basic Metabolic Panel; Status:Active - Retrospective Authorization; Requested for:20Jul2022; Brain Natriuretic Peptide BNP; Status:Active - Retrospective Authorization; Requested for:20Jul2022; CHF (NYHA class II, ACC/AHA stage C) Start: Furosemide 20 MG Oral Tablet; TAKE 0.5 TABLET Daily Morbid obesity with BMI of 50.0-59.9, adult Healthy Weight Tips; Status:Complete - Retrospective Authorization; Done: 06Jul2022 Some eating tips that can help you lose weight.; Status:Complete - Retrospective Authorization; Done: 06Jul2022 SocHx: Never smoker Tobacco Use Screening; Status:Complete; Done: 06Jul2022 Unlinked Stop: Atorvastatin Calcium 80 MG Oral Tablet Stop: Furosemide 20 MG Oral Tablet Stop: Losartan Potassium 50 MG Oral Tablet Patient Instructions Please bring all medicines, vitamins, and herbal supplements with you when you come to the office. Prescriptions will not be filled unless you are compliant with your follow up appointments or have a follow up appointment scheduled as per instruction of your physician. Refills should be requested at the time of your visit. labs in 2 weeks Follow up in 6 weeks Chief Complaint LORENA CAMPOS is being seen for CAD/ AFIB old Dr. Leo patient. History of Present Illness Patient is new to this provider, he is accompanied by his who works at [employer] in the cafeteria. Prior records were reviewed, patient was seen previously by Drs. Page, Dr. Leo, and most recently by Lisa Sheffield. Based on these notes, The patient is a 66-year-old male who is followed for persistent atrial fibrillation on sotalol and anticoagulated with Eliquis. Additionally he has underlying sinus node dysfunction, coronary artery disease, dyslipidemia, hypertension, and morbid obesity. He is also followed for diabetes mellitus and obstructive sleep apnea on CPAP. His left ventricular ejection fraction is 40 to 45% per 2D echocardiogram dated June 07, 2020. The patient states that he was treated for COVID in Sep, 2021. Since that time he has had ongoing shortness of breath, cough, fatigue, occasional fluttering in his chest, and states there is a spot on one of his lungs which is being evaluated by Dr. Clinton fritz. The patient states that he is also scheduled to undergo an MRI, pulmonary function test, and Lexiscan stress test at [facility]. He states he has absolutely no energy and is easily fatigued, he is short of breath and he has a nonproductive cough. He denies fever or chills. He is accompanied by his who questions whether he may change his cardiology follow-up to [facility] due to proximity to home. Patient wishes to establish care at [facility]. Predominant complaints are unrelenting fatigue, short-term memory impairment, lack of motivation. Recent history of COVID, in 2021, and since then overall decline. Has obstructive sleep apnea and is compliant with CPAP therapy Was previously on metformin, recently hemoglobin A1c escalated, now on Trulicity and metformin dose has been increased. Denies orthopnea or PND Remains on Lasix on a regular basis Activity level is less than 4 METS Remains on disability. Gives prior history of TIA, and loss of vision in the right eye which is more recent. Sees ophthalmology. Physical exam: Neurological: Alert and oriented X3. Cooperative and a pleasant demeanor. Normal power x4 extremities. HEENT: Carotid upstrokes are 2+/4 bilaterally. No carotid bruits noted. No jugular vein distention noted at 90 degrees. Cardiac: Regular S1 and S2. No S3, or S4. No murmurs or rubs noted. Lungs: Clear to auscultation posterior laterally. Respirations are regular and non-labored. Abdomen: Soft with active bowel sounds X4 quads. No hepatosplenomegaly noted. No palpable masses noted. Extremities: Lower extremities are warm, dry, and intact. No lower extremity edema noted. DPs are 2+ bilaterally. EKG is abnormal wit (more content not included)... Normal [employer] Tobacco Screening.on 023 Adult depression screening assessment No [facility] y 250 DO Work Phone: Fall risk assessment a) No falls within the last year [facility] y 250 DO Work Phone: Tobacco use status [facility] b) No [facility] 250 DO Work Phone: CBC AUTO DIFFon 06-15-2022 BASO # 0.1 103/ul Normal 0.0-0.1 [facility] Comment on above: Performed By: #### C BC #### [facility] [address] [place] [address] Dr. Maria T Canela Basophils/100 WBC (Bld) 0.7 % Normal 0.2-2.0 [facility] Comment on above: Performed By: #### C BC #### [facility] [address] [place] [address] Dr. Maria T Canela EO # 0.2 103/ul Normal 0.0-0.7 [facility] Comment on above: Performed By: #### C BC #### [facility] [address] [place] [address] Dr. Maria T Canela Eosinophils/100 WBC (Bld) 2.7 % Normal 0.9-7.0 [facility] Comment on above: Performed By: #### C BC #### [facility] [address] [place] [address] Dr. Maria T Canela Erythrocyte distribution width (RBC) [Ratio] 12.7 % Normal 11.0-15.0 [facility] Comment on above: Performed By: #### C BC #### [facility] [address] [place] [address] Dr. Maria T Canela Hematocrit (Bld) [Volume fraction] 39.7 % Critically low 42.0-54.0 [facility] Comment on above: Performed By: #### C BC #### [facility] [address] [place] [address] Dr. Maria T Canela Hemoglobin (Bld) [Mass/Vol] 13.4 g/dL Critically low 14.0-18.0 [facility] Comment on above: Performed By: #### C BC #### [facility] [address] [place] [address] Dr. Maria T Canela IG # 0.01 10e3/ul Normal 0.00-0.03 [facility] Comment on above: Performed By: #### C BC #### [facility] [address] [place] [address] Dr. Maria T Canela IG % 0.1 % Normal 0.0-0.5 [facility] Comment on above: Performed By: #### C BC #### [facility] [address] [place] [address] Dr. Maria T Canela LYMPH # 1.7 103/ul Normal 1.2-3.8 [facility] Comment on above: Performed By: #### C BC #### [facility] [address] [place] [address] Dr. Maria T Canela Lymphocytes/100 WBC (Bld) 25.0 % Normal 20.5-60.0 [facility] Comment on above: Performed By: #### C BC #### [facility] [address] [place] [address] Dr. Maria T Canela MANUAL DIFF REQ NO Normal [facility] Comment on above: Performed By: #### C BC #### [facility] [address] [place] [address] Dr. Maria T Canela MCH (RBC) [Entitic mass] 30.0 pg Normal 25.9-34.0 [facility] Comment on above: Performed By: #### C BC #### [facility] [address] [place] [address] Dr. Maria T Canela MCHC (RBC) [Mass/Vol] 33.8 g/dL Normal 29.9-35.2 [facility] Comment on above: Performed By: #### C BC #### [facility] [address] [place] [address] Dr. Maria T Canela MCV (RBC) [Entitic vol] 89.0 fL Normal 80.0-94.0 [facility] Comment on above: Performed By: #### C BC #### [facility] [address] [address] [address] Maria T Canela MONO # 0.6 103/ul Normal 0.3-0.8 [facility] Comment on above: Performed By: #### C BC #### [facility] [address] [address] [address] Maria T Canela Monocytes/100 WBC (Bld) 9.6 % Normal 1.7-12.0 [facility] Comment on above: Performed By: #### C BC #### [facility] [address] [place] [address] Dr. Maria T Canela NEUT # 4.1 103/ul Normal 1.4-6.5 [facility] Comment on above: Performed By: #### C BC #### [facility] [address] [place] [address] Dr. Maria T Canela Neutrophils/100 WBC (Bld) 61.9 % Normal 43.0-75.0 [facility] Comment on above: Performed By: #### C BC #### [facility] [address] [place] [address] Dr. Maria T Canela Platelet mean volume (Bld) [Entitic vol] 10.6 fL Normal 9.5-13.5 [facility] Comment on above: Performed By: #### C BC #### [facility] [address] [place] [address] Dr. Maria T Canela PLT 163 103/ul Normal 150-450 [facility] Comment on above: Performed By: #### C BC #### [facility] [address] [place], [place] [id number] Dr. Maria T Canela RBC 4.46 106/ul Critically low 4.70-6.10 [facility] Comment on above: Performed By: #### C BC #### [facility] [address] [place] [address] Dr. Maria T Canela WBC 6.7 103/ul Normal 4.0-11.0 [facility] Comment on above: Performed By: #### C BC #### [facility] [address] [address] [address] Maria T Canela GLYCOHEMOGLOBIN A1Con 2022 ADA RECOMMENDATION SEE BELOW Normal [facility] Comment on above: Result Comment: ADA RECOMMENDED LIMIT 4.0 - 6.0 ADA THERAPEUTIC TARGET < 7.0 ACTION SUGGESTED > 7.0 Performed By: #### A 1C #### [facility] [address] [address] [address] Maria T Canela Glucose [Mass/Vol] 223 mg/dL Normal [facility] Comment on above: Performed By: #### A 1C #### [facility] [address] [place] [address] Dr. Maria T Canela HbA1c (Bld) [Mass fraction] 9.4 % Critically high 4.5-6.2 [facility] Comment on above: Performed By: #### A 1C #### [facility] [address] [place] [address] Dr. Maria T Canela MICROALBUMIN, RAND URon 05-31 mALB <1.3 Normal <=30.0 [facility] Comment on above: Performed By: #### M ALBR #### [facility] [address] [place] [address] Dr. Maria T Canela PROF 14(COMP METB)on 023 Albumin [Mass/Vol] 3.9 g/dL Normal 3.4-5.0 [facility] Comment on above: Performed By: #### C MP #### [facility] [address] [place] [address] Dr. Maria T Canela Albumin/Globulin [Mass ratio] 1.2 {ratio} Normal [facility] Comment on above: Performed By: #### C MP #### [facility] [address] [place] [address] Dr. Maria T Canela ALP [Catalytic activity/Vol] 81 U/L Normal 46-116 [facility] Comment on above: Performed By: #### C MP #### [facility] [address] [place] [address] Dr. Maria T Canela ALT [Catalytic activity/Vol] 65 U/L Critically high 16-63 [facility] Comment on above: Performed By: #### C MP #### [facility] [address] [place] [address] Dr. Maria T Canela Anion gap [Moles/Vol] 12.2 mmol/L Normal [facility] Comment on above: Performed By: #### C MP #### [facility] [address] [address] [address] Maria T Canela AST [Catalytic activity/Vol] 47 U/L Critically high 15-37 [facility] Comment on above: Performed By: #### C MP #### [facility] [address] [place] [address] Dr. Maria T Canela Bilirubin [Mass/Vol] 0.5 mg/dL Normal 0.2-1.0 [facility] Comment on above: Performed By: #### C MP #### [facility] [address] [place] [address] Dr. Maria T Canela Calcium [Mass/Vol] 9.1 mg/dL Normal 8.5-10.1 [facility] Comment on above: Performed By: #### C MP #### [facility] [address] [place] [address] Dr. Maria T Canela Chloride [Moles/Vol] 98 mmol/L Normal 98-107 [facility] Comment on above: Performed By: #### C MP #### [facility] [address] [place] [address] Dr. Maria T Canela CO2 [Moles/Vol] 27.3 mmol/L Normal 21.0-32.[address] [facility] Comment on above: Performed By: #### C MP #### [facility] [address] [place] [address] Dr. Maria T Canela Creatinine [Mass/Vol] 0.80 mg/dL Normal 0.70-1.30 [facility] Comment on above: Performed By: #### C MP #### [facility] [address] [place] [address] Dr. Maria T Canela EGFR-AF CROATIAN >60 Normal >=60 [facility] Comment on above: Performed By: #### C MP #### [facility] [address] [address] [address] Maria T Canela EGFR-NON AF CROATIAN >60 Normal >=60 [facility] Comment on above: Performed By: #### C MP #### [facility] [address] [address] [address] Maria T Canela Globulin (S) [Mass/Vol] 3.3 g/dL Normal [facility] Comment on above: Performed By: #### C MP #### [facility] [address] [address] [address] Maria T Canela Glucose [Mass/Vol] 291 mg/dL Critically high 74-106 T [facility] Comment on above: Performed By: #### C MP #### [facility] [address] [address] [address] Maria T Canela Potassium [Moles/Vol] 4.5 mmol/L Normal 3.5-5.1 [facility] Comment on above: Performed By: #### C MP #### [facility] [address] [address] [address] Maria T Canela Protein [Mass/Vol] 7.2 g/dL Normal 6.4-8.2 [facility] Comment on above: Performed By: #### C MP #### [facility] [address] [address] [address] Maria T Canela Sodium [Moles/Vol] 133 mmol/L Critically low 136-145 [facility] Comment on above: Performed By: #### C MP #### [facility] [address] [address] [address] Maria T Canela Urea nitrogen [Mass/Vol] 14.0 mg/dL Normal 7.0-18.0 [facility] Comment on above: Performed By: #### C MP #### [facility] [address] [address] [address] Maria T Canela Urea nitrogen/Creatinine [Mass ratio] 17.5 mg/mg Normal [facility] Comment on above: Performed By: #### C #### [facility] [address] [place] [address] [id number] [address] Maria T Canela Coding Summary.on 03-18-2022 Coding Summary. CD:[id number] Gh 0bWw+PGhlYWQ+OF7NVXMnI 05ocZYrwN8GZ0vJXN4FDGA VSMOYLT1SHE0fnXQ5HUueR 2VybiAv EcgkpKNvFX82VZg6KTZ2eX etXJxheZ3vqZBnR1u5GfXb GI99jO14NEthBPSyWeX1Rf ZpbjsgbWFy V9wtWlLgcPJgYdn+PHRhYm xlIHdpZHRoPScxMDAlJyBz kWazHF8kGo3sUQKcFSOczV xhcHNlOiBj k4jtDBPvAUrwEQ1hdJahO7 QdgTF5QHWhm1n4Gp32kTI+ ZPFnWCC2tAbbGIgyy661Bf Qho2ivIOQ3 rYWqTMxqQEB8T46pp3W1KR KfEOXxUUO7vAO4eI7jcAcd qsqnW5KvjVZcAoR8HCM3iR BqmL1qwExh vvcuxK5jSqf+R33CVF3YWZ ZSJQ7HPmm8G1OySqvvdKW+ LA32XGNwFH72cENmcIMyt9 rteSh3YtTb BKAlEZA3lAgoPQqvy2ByOT WfB38zlPEvq8E8WITcqZwo kHEoYsMuoFD5kR5eEQbxhm nrh5yzlsil Urjuo2lllk04zS77P67cST ikBSCrUDE8LJIvXLBgqHxf uv4mdU8dKl3+JLrbd8veu0 pehNc3NtMe TOYsejAokXfmSRX1h6NhTj 45C3UvqSvwd7CmWhe4fh35 bMDjb9B5bNO1ZPyqTWRrfI 3mARgoIwL9 MFKsYuUyrP37uGSwIHbpGv 4moRkjyUcmRO9xCHWnvxvq WPFdmN2nTBTfhVFfoUmoUF 4wNTBpbjtm h799SuMdYVV3PJZexVWkE3 KaeA1hRxErRTCeNGWyW3Yv uMGyGGqvR264WPgwMsN6EO TkmhEaJ5Ns FZEciWusZqV1n1M0Dv1Zr1 UncukjBDS7VZzcCFYyXwF0 WuKfDwK3I7GlLoo8SJPjfE rwSD4qC0Ug LYEhhxjdzbyimLE0PRNlSY ExwZ92dNAyMXkiXh5cg3Q4 w485ILAnPKYdyJ35Fi1skH ogMTBwdCBU xH6jnmhdt7kkibbfJhDqDO TxFYm2NXi4DFRgsNqgBmMv CIB9JpE0XYL2nCLhtE8vgJ jyrrcsrI4b Oyc+H10gwT7zSAY9ERR5np exBREscbNcND36CS78G4Pg PjwvdGFibGU+PGRpdiBzdH dyXS8iOjTf d9ese8LgCJohU0YgVUOhZA dsDlt8WCRhISI3xCG6bY3t AHJfVGoir7P6pOH5P1Knlv Aqzs3zz4ho EGLkEEzwF58kpYBsf4H1WX PkkAL8APUqmDfcYkPhuY45 Oyc+KKLzuHsit3YcIfkfp5 dyh4zidJi2 GuOcXXRzmgEpdGpeERO0r4 EbNa03D49lDQjjIWUhXBYq LADcTFRhdNfhof4abU5jEt 8+PGNvbCB3 zIL9zO7uMPTrQsR0QQcdH6 86MoHrxJCrUkwpv4nyu0is zBs9TfJpQCKipfWglWmmGB P0h4QsJz90 G00cSJujUOCnTQRtRQPjAQ SqwBkyhm1fsB0uYm5+PC9j l2rqdy40bT21uLI+PHRkIH D0wNmkAJje ASFleY1xSDjiKyD4LFPkOq TydK94gPVkFIlkJe2ghUsw dFprQH2pBBPjxbkvb236Rs Sur9osAHWo wJPeHEhzSTU8Z31pe9Z5LO ExKNPwZGR3eBK0kU6xiDut bjogbGVmdDsgdmVydGljYW wmOSudC099 IHRvcDsnPlBhdGllbnQgTm QtDLt1T1JzUyl8SNAqhCzt IM5kpFDrLSnyOl7psEhzfF guWG8oNLOy goqht738MiBcp3ovOFUyuR XoHQdsUCK8K63wm3Y3MRFc IKEoPYT6gIE1bL2anJyeqt ogbGVmdDsg drPztBpbHDniNEelC639VE RvcDsnPkJpcnRoIERhdGU6 RL15HS05sWZsq8C2bVR9A2 BhZGRpbmct ehvjnUT8DWHxNCMuaX85Xi 6qxLsaDu5xSNZvTUF1CFYi xYJlS5KrtN4oXcTkCYFhZP QrK0SjjXPy XOczA399DSkmGnL8ZJCtvq LuA8XuJMYzfYphFpF1w8H1 Jf7VM0Y6ID11GJ48iIHwp5 Z6gRT9E3Dy FZPuvfgulcvehGB1BMWfOA XwqJ98Vj8xeEgfCj2xVDPo OMR5LSVwnZDoO0AoaY6mTm AjMDAwMDAw H5AfdNAaVHtqL976SVrbSd Q0SOXlemVdL2LiYJHuhXew UyF4g0H9Fq6APPa8LJ23CZ 42uHMrj8C7 fJT4U3UkGCRnfzfjniuurG Y5YQQzRTDjrZ21Au9geTxh Xj9zXHMcWVT4QWVszFFnP3 YinH6uOeTx KVOlNGBiT3CbfZXlWHfiG8 53GXlzIuG3KMHyqjIkN7Eb FSRaqEkbUyH1k4D4Xx6EVH TjCP43INZ2 wOZ0RJ49VJ68H7MbIdckoP FibGU+PHRhYmxlIHdpZHRo JOexOYBtOgEuhSigWL6dPp 9yZGVyLWNv uYociQGyYqExp9pmFZXtQW dpSZ0vtZjxQ4SsfBA5TNDs r2x8Nu81Q63nL4KntZT+PG EchFK9zMA0 bN1xKeNiKyC6XOifK248Lw BpyNNfTgmkk1rsz9hzpBd0 UmM6LQBenrKbuWnpRPE5o3 YpWz92F91w IHdpZHRoPSIxNSUiIHZhbG uvhm2qzE7nEo4+PGNvbCB3 kYA7lF0uWiSsKcN0VVlxB1 49InRvcCIv Puehq8lqm3uxsDe8WdFsNV XomkOelTgiHIR4b1PlNe94 A0SlgVhdk8YpHhk5mm50hU Ltx1Z8gOJ6 Z6XwMVOiuvnnvJLuxZndXF 0sBOYqouwyGWMdyB0yMZBz N4d3PrCjCaF5IYazF6Wknf T8JVXqrDHj NGzuPSW0W31fc4N9RDJpWR GwRKU2tGW9mV9uzEvfaxgt bGVmdDsgdmVydGljYWwtYW rdH593YXWa kIccMXVuzE6bNXVumCDxfY pcVQ1mYGPbsgsrTqTBNrRJ OtlxJGEEFXGEHyKZGK89YU 85bVQwg1E5 pQR6F6FsWICvnsbwxfwwqR Y6CQFrTYJszH97nSWgJDio Zc5mm0M8b783PSGpGJIczW 85Pr9qtThz WPZyqISEiU5lnlkce2zmbh bgEcBgNVQoVZz1QHp9QHUf iZmuCvOeZLQ2JqY3SOB0iW XdcZ9evHzc tonpwG5cDuy+MDUvMTEvMT c7VPkosTC+CEZiLKG9oXpq LHdpEXGooP8lXXFoK7u2Tw GbUzE1IJtp I3BcDGAjvzkmKf58fL4lUa CcCfW7LDxjJ1SkkgN2RUBj eMJbRHezOBE1B12af6Y8BQ MwMDAwMDA7 rDC1jN5coQencoplbCQdcX lksbJyjKiwURjzQOveS875 BHSrpQsyOoS1HJzdUPVzKG 49WT39oDFb q4Z2cDI9J5EgXBVyhxolck psxKM0QCJcATUoqJ66aOQd ZLjqKh1dz8M2y628AVEyYT RjnU79Bx5f tVpaUIClfXNOhD7udihcx7 wadzupUjSmSUKpJJb4NZj6 TDUfuJwnXjWbCTB0HzQ6FI U6wSLkqN6n gJdtctqhuZ7oNck+TWFsZT wvdGQ+KLEkWWH7mXwoQPdr PUTrjV2xGLVtW3i3JjYdVa U0XIjpF1Ic NJSuraclWw00aD1kImIbLt Q3ZYelB8WcetI7NFYwqVHi FGzjPGG3T03lu0I1VAMxYN HoXHZ8wEG0 yR2qnSfupjgopZSebYeoxz RnrGiiTQhfTEkcV588MKNt hPusNi34xPWykSewfqI2L8 RkPjwvdHI+ FU08KHYyLP54gTZrmYUvb3 sidVd0GvQvTUSbKLS5gTeg FZqpe1YmQHRyS98wvQMlt1 V9XTUarQff bWTjVlIwgSF6vF3nMRueyb jnc7esdggnWagub8lgwd55 sT98Q59yNJanLAFoAXRePY UiIHZhbGln bt8ikN5gOz6+SBZhtLH7nO V7fV8cJgQdCvX6HNukS320 GnSwoPOoZcxna0mal5nioM s8WoHgPMOs mnXtePxmVOG2i8IeLj90F8 9sIHdpZHRoPSIyMCUiIHZh mUukbf0deU5tCe2+PC9jb2 xfbf28rB83 dHI+LMAyTMW4lGthDEmtYK SofY4iTYqmOwQ4JQXaRuCq kD94qHUdQKcjDw7sqQpjqR sbVX2cQRHb zzsos548OhRyj4bpIHBdhM GwSBrpDKM7L68hc6Y9TQDn CBDdBBU9qFA7wG5euKvtvl ogbGVmdDsg vuWqnTdzSSwmALlxX575PX YhtOpyNbOutFWwM1lwvuXW CX6uQwhbaKR+DLItSUX9wL xlPSdwYWRk bM6uRQBtV1s1NjIlVyY7CH awH5IbknJ5LQKlwAIiOQJr mFEDgM4pnecny6hsizlqOd AwMDAwMDt0 PSd6UTHunKblEbSzSXY5Au Y1TTH0bICviH7dlFqrjlzs zC8aIry+RklOOjwvdGQ+PH QbVTE3mHcd DEogCIBxvC9eVCLsS8a5Wk ItAsC5RIiaF8YpsiO4XZYx kYIkOVVxoMUEbY8rvrbsa8 xvcjogIzAw OFRwOPq2ZHn8EWLzsKciWg SgFZA8FgU3SKH1cCZbmO5e qKjsjlyawL8fQmn+TVJOOj wvdGQ+PHRk KKD3yQziGTtvQIOicH4kLE UxK4u4HcFbWvF9REhxQ6Cy umR5SMSnqGEdPIPdsSUBxH 1quvsim5dd uhykLyNuGJLpWIa1SMj5TC DsxRbeEpMzPHB2JjU1HHA8 bJRxhM1grCrydsgqdO0jRt c+JAW1LFB9 MD40UJ17V9ApFuihlHSglR U+PHRhYmxlIHdpZHRoPScx XLUuJdNpgQmsDV7oXe9iIQ VyLWNvbGxh cHNl (more content not included)... Normal [facility] Consent for Treatmenton 02-28 Consent for Treatment [id number]#1.0 0CD:127 Normal [facility] Heart and Vascular Office/Cl inic Noteon 03-09-2022 Heart and Vascular Office/Clinic Note History of Present Illness Mr. Campos is a 66 year old male, morbidly obese with obstructive sleep apnea who uses CPAP, hypertension, unknown cholesterol but on atorvastatin, lifelong non-smoker, who returns to Cardiology office for follow up after extensive cardiac testing. He was previously seen in the office by Dr Saldaña for further evaluation of labile BP, near syncope, dizziness, and dyspnea on exertion. He had a 12 lead EKG which revealed atrial fibrillation. His orthostatic VS were negative in office. He had echocardiogram performed at [facility], which was normal. He was ordered Event Monitor, Carotid US, Stress Testing, and Ambulatory BP monitoring. Patient underwent a nuclear stress test in February 2020 which demonstrated a large fixed defect inferiorly and anterior ischemia. Patient was seen by me in consultation in the office recommended a heart catheterization which took place on 05/16/2020 with the following results: CONCLUSIONS: 1. Minimal nonobstructive disease of the left anterior descending with angiographically normal diagonal #1 and diagonal #2. 2. Angiographically normal left circumflex. 3. Significant mid-right coronary artery stenosis in a dominant right coronary artery. 4. Moderate to severe left ventricular dysfunction with regional wall motion abnormalities of the mid-anteroapical and inferoapical henry. LVEF approximate 35 to 40%. 5. Normal LVDP. It was found the patient required intervention of his RCA which took place on the same day 05/16/2020 with the following results: CONCLUSIONS: 1. Successful Heparin and Plavix assisted angioplasty and drug-eluting stenting of the mid-right coronary artery utilizing a 4.0 x 24 Promus Synergy stent, postdilated with a 4.5 x 8 noncompliant balloon with an excellent result. 2. Nonobstructive disease of his left anterior descending and angiographically normal left circumflex. 3. Moderate to severe left ventricular dysfunction. [1] In addition he underwent echocardiogram on 05/20/2020 which showed low normal EF of 50%, no wall motion abnormalities noted, normal RVSP. Stage I diastolic dysfunction. Patient underwent unsuccessful DC cardioversion on 06/25/2020 with the following results: Unsuccessful direct current cardioversion with a maximum of 200 joules of biphasic energy. He remained in atrial fibrillation. Patient will be recovered per Anesthesiology protocol. [1] patient was then referred to [facility] and was placed on sotalol followed by repeat DC cardioversion which was successful. In addition the patient underwent a Holter monitor following that on 11/14/2020 with the following results: CONCLUSIONS: Generally benign appearing Holter monitor which was mostly sinus bradycardia or sinus rhythm. Clinical correlation suggested. [2] Finally, the patient had a repeat echocardiogram to determine if sinus rhythm has improved his LV function on 06/04/2021 with the following results: (06/04/2021 10:15 EST Echo Transthoracic w/ Contrast) SUMMARY/CONCLUSION: 1. Mild left ventricular dysfunction with above noted wall motion abnormalities. Left ventricular ejection fraction is approximately 45%. 2. Stage 1 diastolic dysfunction. 3. Mild left atrial enlargement. 4. Trivial tricuspid regurgitation with normal right ventricular systolic pressure of 25 mmHg. 5. Mild ascending aortic root dilatation of 3.8 cm. 6. In comparison to echocardiogram dated 06/07/2020, no appreciable change is noted, however, the patient appears to be in normal sinus rhythm on this examination and was in atrial fibrillation at that time. [3] To better evaluate the patient's LV dysfunction recommended a stress test which took place on 01/22/2023 with the following results: (01/22/2022 12:19 EDT NM Myocardial Spect Multi Stress) CONCLUSIONS: 1. Abnormal, adequate, Lexiscan/myocardial perfusion imaging. Positive for significant left ventricular dilatation and moderate left ventricular dysfunction with an ejection fraction of 44%. 2. There is evidence of fixed inferior apical hypoperfusion which appears to worsen with peak exercise. 3. Hypertensive blood pressure response to exercise. 4. Poor exercise capacity for age. 5. No anginal symptoms noted. 6. This is an intermediate risk study. Recommend clinical correlation or additional testing for cardiac evaluation. [1] Given his known history of coronary disease and abnormal stress test he underwent repeat catheterization on 02/05/22 with the following results: CONCLUSIONS: 1. Angiographically normal left anterior descending, diagonal, and left circumflex system. 2. Widely patent right coronary artery stent with no significant in-stent restenosis. 3. Mild global left ventricular dysfunction with a left ventricular ejection fraction of 45%. 4. Moderately dilated left ventricular chamber. 5. Mildly elevated left ventricular end diastolic pressure of 20. [1] Patient acquired COVID about 5 months ago and has had a progressive dry (more content not included)... Normal [facility] Comment on above: Result Comment: Elec tronically Signed By: Camilo STARK, Kushal Galarza\.br\Date and Time Signed: 03/09/22 11:29 EDT Progress Note-Physicianon Progress Note-Physician [id number]#1.0 0CD:127 Normal [facility] Coding Summary.on 02-10-2022 Coding Summary. CD:[id number] Gh 0bWw+PGhlYWQ+VH9VTUTfW 94wcPSpmA6IU2vOYO6VWXM HTEUUCH0NAN2cjIW9BWvpS 2VybiAv JxpgaVEvSV68SYq0PHR5aD mhBHtrwQ3vdWXiG5r7NkUv DT37aM26GIdzLKPdDtI0Nx ZpbjsgbWFy J6laAvGxcVKdAud+PHRhYm xlIHdpZHRoPScxMDAlJyBz sVlnJW4hIy2nMSKqIWAzdM xhcHNlOiBj j5ahTERjGXxbKD7fjDabT8 TykMS7GSDgn3y8Dg83hZI+ IMRtWSZ6tKznGYlrh546Ty Bnb2xwLFX1 tTLnNSucXLB7A51hg4Y0CW EdNBGbORX5tAF0rB7kvMrw pxfiW4OszJEyRkG6EIS9gG YrzT6smEio tcjcsZ9aZdk+O22XCW6HBI KZXL5NXdu9L6KpQvbveWA+ EE45MDKbSF18tMLggMKav3 tbuId1XaRd MGIcLNU4uSlnYIqqr8PxYQ SeE40wvOTzi8K6JOTzvUca wXMuFdAexHZ1oP1mKZxmgb syd7uhprpg Yxfti9ehrv15rR40Y92aXL fdBLLcWPA8TTCtGJLitOfs oq8ltK0jUe6+MIavk3ifp6 zqzEx0MvZy UQAjndRhiDwqYED6p9PqYs 40D4HyiQdja8SeOgl9lo63 vOWox8E1vNL4DMmzZTHutL 9zQKjhPyI8 DHIuGcIiyI39gROgXZkbOq 5vqOtmiJugDF1lWAWogfss FJWwzH7dCZVxmUXouMrzKL 4wNTBpbjtm r185SbQzAVC1SAHntEOyP8 ZscB6zWxIsLQMvQVQoG2Tt tAUsUUaoQ064ONhzRbE8HJ MmdrKdM6Ga OHIonJgsAxB4b0W5Ca3Ub2 YgwusjYNY7IQinBVZ9YsRs JzUrDuC3U4IqRvt9XTUsmF ymYV6qW2Pr IKJdhssytobsyZP4AUEbIZ RhhC96pJInNWmtHt6bu6U5 y211YQZvOQHtyB39Ot4gqN ogMTBwdCBU aB1gikzeo5ennwltDdKoSP PcCUk2QPu3UKQusHgkCoKg LKV7TzB5ZAH6zKImaN6ssN ospghqiE0y Oyc+W38rfV4dFND4ERB1wk jnJKIhvkEzVU27SB69G8Ee PjwvdGFibGU+PGRpdiBzdH kfWN0tLjPb p1byx3OyLUnfE8GdHMAcDT udBcc9TLLrVET0xVT5fL5y IIGkYNnvf8C1lDM6A8Gejw Ypdw4fb6pw TTSeAWfoV19uwKGuh5G0UV UpsWK0ZQHahSqiXnIytY79 Oyc+UUBttYtnp4CzZekgj8 kis5ephMz6 NcSxGGYmswYsyMprWJM1o0 TnVx40M12jZWxjUNLiLJMr XGOkXSCchGyqqm8mdB8sLd 8+PGNvbCB3 sXQ1zG5iUFBoTlA4MFxpB0 56EnGkpURsMhrlb3ljn8il oEc0DuMnGMCiqnFtyQsfER L8h5ZcLz77 T78bCNcxSIUcSMLoEFBaXV SyoFztjn2lnE6jXw1+PC9j a8bgat72gA60wAF+PHRkIH F1lZpaQJps THAiiC4cYDnnSpD8RJQlLh UepS73aRRtPFwhBt1arYsi rTloXT4lGZEixogzl410Os Cpj5omVEZi nJCdFHiwHCF7W05dz4K1XQ BpYYVuDEG3oRB4aO8kuRzx bjogbGVmdDsgdmVydGljYW cvIKujK225 IHRvcDsnPlBhdGllbnQgTm TnVGd5M0MwEkc9IFKtoVay XI9dhYTsLBfrKy6zdDuxjF slJH2eHFWz cdyrr952VoRiz9srUIJlqP JqZUyaRXT3V49ca9O4KZBt OWPrHNW8cSF0uT8zuFxaeq ogbGVmdDsg vfTpdOhsUEvuYGjwQ725SZ RvcDsnPkJpcnRoIERhdGU6 GM66VB02yNPbp4Z6dFE2H0 BhZGRpbmct oftskEX2ZIUsZJTmuE30Ii 1nxYkwCk3qWOWmEYN5BHFc eGDaP2JdqT2kLwNmIGVaYT UcQ3SutEDw YPcrR143PCpkGhF4SVVznj CtZ2IwRINuzJtfImO2d5P8 Ua7OX2L8HQ93RL12zGYxa7 Y8iNZ6I8Cw PNAmyomerqbrhHM9OGIqYO GkrL93Cj7suYggIc9aGQGu CXO8CLNikWAvK5ToaD6dSi AjMDAwMDAw Z7ArxRXiPQoxF460JFetRk V8VSYqiyQnO7EjRMCgsVvs UsL0a0H9Ua9XIZz7GK01DH 35yFNzo9E0 dTH3T0EdDSZrwjvoqaticQ G2HROtXOBvyV39Wt1jyNgz Wp5rMHWvDHB6UXGbmVWgP0 GsuM5rOwPv WLScBUJuW6QfdDVvXXrdJ9 57TLhhJaK8QWDitoSyZ8Df UUQpwJrrUxV1y7D3Vh6OXG WnAE89IKX6 hSB6PZ42ST35C7AyJkeimF FibGU+PHRhYmxlIHdpZHRo FMviPDCuZsEnjQsrOA7lKx 9yZGVyLWNv nWhbcMIhOrVfp8dsUIPlFH igWX7soFhaS3NjhVX2YIQy c7h3Qq82V61tN8UqgVF+PG MikWS1lDL1 lV3rDpUsGjA6HGknC720Rj PivAHwUucxn9xzi2asdNk5 MqR9AZGuhnBhqPwhDIG6z2 YhSu44X80a IHdpZHRoPSIxNSUiIHZhbG ntql0mbB2oVs0+PGNvbCB3 qRA6dO5yEwXtOxW6SIawS1 49InRvcCIv Uqdef4qpj6wbrNk9YdSsDL IphtAamBarVWZ5y3VrAk07 M0XlnSfog0PcPtv3vv65qG Bsi9D3dAT9 K4HcLSJquqbceCVtdPscTL 6rVNRpfybkVVMayI5eDGPe J0l1OcCkLiZ4PPlkM4Usrl O3WZPctQTo MDqpSYF4L75ok8F5SNOgZP WgKNT4yTL3dA8pwIdeenyc bGVmdDsgdmVydGljYWwtYW xvW775DFXw tOfwMRXxoZ9nXKTtdLTrxW odNO7gCQZlkstwRhTSWgXY DutuADGWXMVNQkWZYY59JP 62uLNjv6C4 pYR3E1HkCGHowvxhstvdiI J6XXUgFKCjtE19xVJhQGfx Ih3bn3C4k006OQUeJQXzsC 41Lo7coEdj RYIlqBYXxX7ahmqjm5puyf kvPcLsMGBpDCz2FHa4FBKw dKzqGeYhSCI2GqJ9MFW2dM WfrF7qeXtr xrnasK2eMyt+MDUvMTEvMT x6IInrtDC+CKVaQPG7mPgf QMcwZNAmaE1lHASrB0s9Ti IjPkU3SBwh A9QcQLFbtrjnZs73nE3mAk YtDjG5OOdqP3OmufT6MWQz yFGjXTmyTCX4L05if3I9GC MwMDAwMDA7 yIZ3kC4alKbmbxnvpJGpsE pzwkJvaHzcAAyiZAcqV406 WWYqzVolYeR9ONqmVSOeIK 24QP11vLUf v6O9kSE4G3KwMJObgtvixv zacVE4OJWjVDOmgO34dHZq PBzjSu9jb9E4t570BMYtRL MxvM96Jd8z sWfoBUMejVDEoG3akxugu1 acgvciMiSkMTLsVSt8INt8 KXRpfEfxCfKvGNB2QrD5OY H5bFQwnM2q bGxmgeabrC7zZaw+TWFsZT wvdGQ+SSKrWNG2rLxvTBpw BOOqoW2yOOJmX7h5AaTtAl L6NWmaY8Ye IJNoimuvUf78zT6sZyFlBv Q2BRcbJ5YwpvA4XEUifGRt QHupKCH7A76pn3O8DYGhLF SaXXC0uHJ2 dS5ptEzabpntfBEgwEyodg EnlGdaKCejLXwqA592HCTk cDsnPkFtYnVsYXRvcnkvU2 FtZSBEYXkg B4XcU8EnoIzqjMO+PC90cj 15V7DmNlbcJbc8ZYLpGHR0 jVR5pH6jLVXdYLwso6B7jR O0H1ThsvXj nq1ki7omUAPgXGmqL75ktN Veq2R4OFJpaEU9QZSnrEyd RsDpdH07Bog+PGNvbGdyb3 TdPhxpp3bd b8shmFc3GgJvEUEqmmLyxG fyKGQ7w8GhYi40T48yQQxt ZHRoPSIzMCUiIHZhbGlnbj 3goZ8aYc3+ JPElhZL9vQY6uX6kAtRhEw V7ILljF099DcLicNLaSdpu i9lco8bzaOg4MrRnUEQyrq FsaWduPSJ0 u5MtAr77H9SgzTmcn0KtJb j4jw23eTGcj4T5tBH0J6Xg DYXpwlvfcCAutJosUP2rYP BpbjtwYWRk yE2lLTMeG3x1SbLrWmA6ZV htC5QxegR3LZIntUVtXLMa iMCToY7xaxbbx6gvztmbBl AwMDAwMDt0 IZx4UULbuVdxYxAoDDL1Oz M5FCI5pMPhgS0etYlydoxi xS6wHvs+RWr9i7pjbWXjJL 8cjET4GW75 IJ77yKBnw0X7tDP7E9WuIO TqchihpfogvQY2PLVfLMVn eF64Ne6rcOtgPj9bCNKuEC V4XQSeeKNy E7GtjL5sGgQoKPDqOCGeR4 TotGIoFBedQ535IQxjLoO2 PLKawiWoT3SnALVpzMxeOw S3t5A0Bt2L TZ52JF81VM76pZWwh2T6oX Y5S0EiOURfafcvxncvsPH6 BVZcGQErtL22Af6jxHvcVd 9gCCLxCWM7 YZEjuEMwL0ZehV8mCuNvDM RzZIWsX9JrkAFzBSleL063 BPnrQeH8IDRvovEeF3MaUZ FsaWduOiB0 f6M5Vh9RDa28WL71TH60pL Kvn3X0pSU3V9LsCPTicfye nfxyeUZ0JTPfZZZhhF87Ng 8shPmsDa6s GOEcCFV6AOPxbHKsC7XggM 1oYzXlQSAnWFCwV9MzlQFn YXptA121XAsyMsH2DWLfuk MiK5McQOCc yJczHbU0z3N4Cp9LDQqzeh g8N9RxSsxbgGU+QY14MPUg OW53sSXtdWKxb4jreSv8Od EwMCUnIHN0 eWxl (more content not included)... Normal [facility] Consent for Procedure/Surger yon 02-09-2022 Consent for Procedure/Surgery [id number] .[id number]:127 Normal [facility] Cardiovascular Reporton Cardiovascular Report [id number]. 00CD:127 Normal [facility] Consent for Treatmenton Consent for Treatment [id number] 0CD:127 Normal [facility] Inpatient Clinical Summaryon 02-05-2022 Inpatient Clinical Summary [address] [id number] Clinical Summary Person Information: Name: LORENA CAMPOS Age: 66 Years : 1955 Sex: Male PCP: CRISTINA BENÍTEZ MD Marital Status: Phone: [phone] Race: White Ethnicity: Non- or Language: Malaysian Visit Id: Visit Reason: R94.39 R07.9, I25.10 Speciality: Acuity: Enc Type: Ambulatory/Same Day Surgery Med Service: Surgery Arrival: 02/05/2022 06:31:58 Discharge: Dispo Type: Address: [address] [place] [phone] Provider Notes: Diagnosis: Problems Active Hypertension Acid reflux Smoking Status: Never Smoker Functional Status: Sensory Deficits: History of Falls: Mobility Assistance Prior to Admission: Independent ADLs: Independent Current Level of Assistance for Self-Care/Mobility: Cognitive Status: Allergies No Known Medication Allergies Measurements: Height: 177 cm Weight: 170 kg Blood Pressure: 150 mmHg / 82 mmHg BMI: 54.26 kg/m2 Procedures Cardiac catheterization, left heart (02/05/2022) Immunizations No Immunizations Documented This Visit Final Med List: allopurinol (allopurinol 300 mg Tab) 0.5 Tablets By Mouth every day. aspirin (aspirin 81 mg oral capsule) atorvastatin (atorvastatin 40 mg Tab) 2 Tablets By Mouth at bedtime. clopidogrel (Plavix 75 mg Tab) 1 Tablets By Mouth every day for 90 Days. Refills: 3. clopidogrel (Plavix 75 mg Tab) 1 Tablets By Mouth every day. colchicine (colchicine 0.6 mg oral capsule) 1 Capsules By Mouth every day as needed Gout pain. furosemide (furosemide 20 mg Tab) 1 Tablets By Mouth every day for 90 Days. Refills: 3. losartan (losartan 50 mg Tab) 1 Tablets By Mouth 2 times a day for 90 Days. Refills: 3. metformin (metformin 500 mg ER Tab) 1 Tablets By Mouth every day. multivitamin with minerals (Multivitamin, Therapeutic w/ Minerals) 1 Tablets By Mouth every day. rivaroxaban (Xarelto 20 mg oral tablet) sotalol (sotalol 120 mg Tab) 1 Tablets By Mouth 2 times a day. Rx per DR Leo. Refills: 0. venlafaxine (venlafaxine 37.5 mg oral tablet, extended release) 1 Tablets By Mouth every day. Care Team Members: Attending Physician: Kushal Page MD Consulting Physician: Referring Physician: Kushal Page MD Follow up: With: Address: When: Kushal Page [address] [place] [phone] Business () 03/09/2022 11:15 AM Type Location Start [facility] Cardiology Follow Up (FT) FT[facility]Cardiology Clinic 03/09/2022 11:15 AM 03/09/2022 11:30 AM Confirmed Patient Education Information: CV - Cardiovascular Discharge Instructions (CUSTOM) Normal [facility] Inpatient Patient Summaryon 02-05-2022 Inpatient Patient Summary [address] [id number] Patient Discharge Instructions PERSON INFORMATION Name: LORENA CAMPOS Date of : 1955 Current Date: 02/05/2022 11:23:22 PHYSICIANS Admitting Physician: Kushal Page MD Primary Care Physician: CRISTINA BENÍTEZ MD PCP Comment: Discharge Diagnosis: Condition at Discharge: Improved LORENA CAMPOS has been given the following list of follow-up instructions, prescriptions, and patient education materials: PATIENT FOLLOW-UP INFORMATION Diet: Regular Discharge Activity: Arrange for a responsible adult supervision for 24 hours Discharge Restrictions: No driving for 24 hrs, Do not make important decisions for 24 hours, Do not drink alcoholic beverages for 24 hours Wound Care Instructions: Remove dressing as instructed Remove Your Dressing In 1 Days Call Your Doctor For: IF UNABLE TO CONTACT YOUR PHYSICIAN AND YOU FEEL IT IS AN EMERGENCY, GO TO THE NEAREST EMERGENCY ROOM OR CALL 911 Home Treatment: Devices/Equipment: Special Services: Additional Instructions: Remove dressing tomorrow Primary Care Physician to provide the following pending test results: None Follow up: With: Address: When: Kushal Page [address] [place] [phone] Business (1) 03/09/2022 11:15 AM In the event that this physician does not participate in your insurance network, please consult with your insurance company to find a nearby participating provider. Type Location Start [facility] Follow Up (FT) FT[facility]Cardiology Clinic 03/09/2022 11:15 AM 03/09/2022 11:30 AM Confirmed Comment: BETH Laguna STEVEN L, have received the attached patient education materials/instructions and have verbalized understanding: Patient Signature Date Clinican/Nurse Signature ___ Date HERE ARE THE MEDICATION CHANGES THAT OCCURRED DURING YOUR HOSPITAL STAY Medications to Continue with No Changes Other Medications allopurinol (allopurinol 300 mg Tab) 0.5 Tablets By Mouth every day. Last Dose: ___Next Dose: ___ aspirin (aspirin 81 mg oral capsule) Last Dose: ___Next Dose: ___ atorvastatin (atorvastatin 40 mg Tab) 2 Tablets By Mouth at bedtime. Last Dose: ___Next Dose: ___ clopidogrel (Plavix 75 mg Tab) 1 Tablets By Mouth every day for 90 Days. Refills: 3. Last Dose: ___Next Dose: ___ clopidogrel (Plavix 75 mg Tab) 1 Tablets By Mouth every day. Last Dose: ___Next Dose: ___ colchicine (colchicine 0.6 mg oral capsule) 1 Capsules By Mouth every day as needed Gout pain. Last Dose: ___Next Dose: ___ furosemide (furosemide 20 mg Tab) 1 Tablets By Mouth every day for 90 Days. Refills: 3. Last Dose: ___Next Dose: ___ losartan (losartan 50 mg Tab) 1 Tablets By Mouth 2 times a day for 90 Days. Refills: 3. Last Dose: ___Next Dose: ___ metformin (metformin 500 mg ER Tab) 1 Tablets By Mouth every day. Last Dose: ___Next Dose: ___ multivitamin with minerals (Multivitamin, Therapeutic w/ Minerals) 1 Tablets By Mouth every day. Last Dose: ___Next Dose: ___ rivaroxaban (Xarelto 20 mg oral tablet) Last Dose: ___Next Dose: ___ sotalol (sotalol 120 mg Tab) 1 Tablets By Mouth 2 times a day. Rx per DR Leo. Refills: 0. Last Dose: ___Next Dose: ___ venlafaxine (venlafaxine 37.5 mg oral tablet, extended release) 1 Tablets By Mouth every day. Last Dose: ___Next Dose: ___ Comment: MEDICATION LIST PROVIDED FOR YOU IS A LIST OF YOUR CURRENT MEDICATIONS. PLEASE CARRY THIS WITH YOU AT ALL TIMES. allopurinol (allopurinol 300 mg Tab) 0.5 Tablets By Mouth every day. aspirin (aspirin 81 mg oral capsule) atorvastatin (atorvastatin 40 mg Tab) 2 Tablets By Mouth at bedtime. clopidogrel (Plavix 75 mg Tab) 1 Tablets By Mouth every day for 90 Days. Refills: 3. clopidogrel (Plavix 75 mg Tab) 1 Tablets By Mouth every day. colchicine (colchicine 0.6 mg oral capsule) 1 Capsules By Mouth every day as needed Gout pain. furosemide (furosemide 20 mg Tab) 1 Tablets By Mouth every day for 90 Days. Refills: 3. losartan (losartan 50 mg Tab) 1 Tablets By Mouth 2 times a day for 90 Days. Refills: 3. metformin (metformin 500 mg ER Tab) 1 Tablets By Mouth every day. multivitamin with minerals (Multivitamin, Therapeutic w/ Minerals) 1 Tablets By Mouth every day. rivaroxaban (Xarelto 20 mg oral tablet) sotalol (sotalol 120 mg Tab) 1 Tablets By Mouth 2 ti (more content not included)... Normal [facility] Operative Reporton 2 Operative Report SURGERY DATE: 02/05/2022 PREOPERATIVE DIAGNOSIS: Hypertension, hypercholesterolemia, previous percutaneous intervention to the right coronary artery in April 2020 with recurrent chest pain and abnormal stress test POSTOPERATIVE DIAGNOSIS: 1. Nonobstructive coronary disease of the left anterior descending and left circumflex and widely patent stent to the mid-right coronary artery 2. Mild left ventricular dysfunction with an ejection fraction around 45% OPERATION: Left heart catheterization, coronary angiogram, left ventricular angiogram I.V. CONTRAST DYE: 60 cc total SEDATION: 1 mg of Versed COMPLICATIONS: None HISTORY OF PRESENT ILLNESS: The patient is a very pleasant 66 year old gentleman who is severely obese with obstructive sleep apnea, who uses continuous positive airway pressure with associated hypertension, hypercholesterolemia, lifelong nonsmoker with known coronary artery disease with angioplasty and drug-eluting stent to the mid-right coronary artery on 05/16/2020. The patient returned with recurrent chest pain symptoms and was evaluated with a stress test which was found to be abnormal. The ejection fraction at that time was 44% with a fixed inferoapical hypoperfusion defect which appeared to worsen with exercise. The patient also had a hypertensive blood pressure response to exercise. For these reasons, he was referred for repeat catheterization and angiography. The risk and benefits of the procedure were thoroughly explained to the patient including specific attention to lack of onsite surgical backup, and written informed consent was obtained. PROCEDURE: The patient was brought to the Catheterization Laboratory in the fasting state and prepped and draped in the usual sterile fashion. Under fluoroscopic guidance the right femoral artery was anesthetized with 1% lidocaine followed by access with a single anterior stick of a Cook needle followed by placement of an exchange length J-wire. Next a 4 [place] sheath was placed without complications and flushed with Heparinized Saline. Next a 4 [place] JL5 catheter was easily engaged into the left main coronary. RESULTS: Left main: The left main is large vessel which bifurcates into a left anterior descending and left circumflex. There are no significant lesions seen in the left main. Left anterior descending: The left anterior descending is a large vessel which wraps around the apex of the heart. It is angiographically normal. Diagonal branches: Diagonal branches are angiographically normal. Left circumflex: The left circumflex is a moderate size vessel which appears to be angiographically normal. Obtuse marginal branches: Obtuse marginal branch appears to be angiographically normal. Next the JL5 catheter was exchanged over a wire for a 4 [place] 3DRC catheter. This was easily engaged into the right coronary artery. There was no dampening or ventricularization upon engagement. Right coronary artery: The right coronary artery is a large and dominant vessel with a visible widely patent stent in its mid-portion. There are no significant areas of in-stent restenosis. The remainder of the right coronary artery has minor nonobstructive disease and no further lesions that require intervention. PDA: The PDA is a moderate size vessel which has minimal nonobstructive coronary disease. Next the 3DRC catheter was exchanged over a wire for a 4 [place] angled pigtail catheter. This is easily engaged in the left ventricular chamber. LV pressures were 135 with an EDP of 20. AO pressure was 130/73. The LV angiogram performed in the 30 degree right anterior oblique position demonstrated moderate LV dilatation with moderate global LV dysfunction specifically of the inferior wall. Overall ejection fraction is 45%. No significant mitral regurgitation. No significant gradient seen on pullback. CONCLUSIONS: 1. Angiographically normal left anterior descending, diagonal, and left circumflex system. 2. Widely patent right coronary artery stent with no significant in-stent restenosis. 3. Mild global left ventricular dysfunction with a left ventricular ejection fraction of 45%. 4. Moderately dilated left ventricular chamber. 5. Mildly elevated left ventricular end diastolic pressure of 20. RECOMMENDATIONS: At this point I would continue the patient on Baby Aspirin and discontinue his Plavix as he does not require any further stents. The patient has a false positive stress test and atypical chest pain on further review. Would continue his Lasix, Losartan, Sotalol and resume his Xarelto in one weeks time. The patient tolerated the procedure well. No complications. The results conveyed to the patient and his . Kushal Page M.D. lr Dictated: 02/05/2022 [id number] Transcribed: 02/05/2022 [facility] Comment on above: Result Comment: Elec tronically Signed By: Camilo STARK, Kushal Galarza\.br\Date and Time Signed: 02/05/22 13:41 EDT Patient Education - [place] 0 02-05-2022 Patient Education - [place], [place] CARDIOVASCULAR DISCHARGE INSTRUCTIONS Diet: ? Resume pre-procedure diet. ? Increase water intake the next 2 days to flush dye out of the body. Activity: If groin access: ? Limit activity today. Do not operate a vehicle, machinery or power tools. ? NO LIFTING OVER 10 POUNDS (a gallon of milk weighs 8 pounds) for 3 days. ? Limit climbing stairs, bending, squatting and stooping for 3 days. ? May resume driving in 24 hours. ? No sexual activity for 1 week. ? Let pain/discomfort guide your activity. If you are having pain, stop. ? Return to the Emergency Room if you have trouble breathing, walking or nausea and vomiting. Medications: ? Resume pre-procedure medication, unless otherwise directed. ? Hold the following medications for 48 hours post procedure: Actoplus Met Glucophage Glucophage XR Glucovance Avandamet Fortamet Apo-metformin Glycon Francisco-metformin Glumetza Janumet Metaglip Riomet Glycomet *Minimal pain, soreness and/or discomfort is expected. *You may take OTC non-steroidal anti-inflammatory to manage discomfort, unless contraindicated. If pain is not controlled with the above medications, contact your physician. Site Care: ? Do not remove dressing for 24 hours unless it becomes saturated, then replace. ? Keep site clean and dry; inspect site daily. ? Do not use any lotions, powders, or ointments at the groin or wrist site for 1 week. ? May shower 24 hours after the procedure. Clean site with soap and water. Pat dry and apply band aid. No tub baths, swimming or hot tubs for 3 days Post Procedure: ? Soreness and tenderness to the site can last up to one week. ? Bruising may occur to site. ? A responsible adult should be with you for the first 24 hours after you arrive home. ? Keep follow-up appointment. ? No smoking for 24 hours as it increases the risk of developing blood clots. ? If you are interested in smoking cessation, contact [facility] at [phone], ext. [phone]. ? In the event you are unable to reach your physician, please call [facility] at [phone] and the food bagging machine operator will assist you. Seek Immediate Medical Care for: ? Bleeding: Apply continuous pressure to the site and Call 911. ? Should the arm or leg become cold, numb, blue or white call your physician immediately. ? Signs of infection are redness, warmth, swelling, increased tenderness, colored drainage, fever or chills ? Chest pain ? Normal [facility] Coding Summary.on 02-03-2022 Coding Summary. [id number] Gh 0bWw+PGhlYWQ+YC1GXHNkB 81ofVDuiN6KE0uGYD3OKBH VOBLQRP3HBU3pqLK1KVpjI 2VybiAv DsvdnRIbMG50TUj5TTB1yW ocKTcwlH3evVFpI2o9ItWp DS47iK91FLgwTBMpVuV8Xe ZpbjsgbWFy H5nxWlJiqHVaVzb+PHRhYm xlIHdpZHRoPScxMDAlJyBz qElrHJ9nAv4cOUPyMLCyqC xhcHNlOiBj i4paHNFlLLdyLN1gvWpuG9 YkuLD3XJAeb1z4Ve70oVE+ MDBuBAZ2wDmnAAhsd785Nd Rej7fnOIU8 oOLxLVelYJV0Z85zl5Y3FA UwYGZcBJB4fHZ4xN3uyUnh vcwgR6PuaDEuCsM6GRQ2pA GkqR5zaQni zcafmY8cWfp+Q09XJN9TPG DTDM1KVex3X0JyQhvpjZG+ ZK61AFAwAO33aEAtqYCqr4 grvSn4IwNp NDUgDKV3gBgqMAjoe5VbPW QvI21dhAGri0N7QUDuqBcw sVMtEuLolAC5gU0aOWxxzx wvx5xthafd Klfoj4yssn60hY71N31rIV vlNZEaRDB7JFHbNHIflAnm kx7brF4iGg7+RLotx4fgo9 qbzJc0TdPp DFBbltIbqCwiASY3j6AoSv 37V1SuyYamg1XcOtp0tk28 uGXvi5E7bEX8IJpgNSPhyO 2yGSopAhJ8 MVLpPoXrzI36aXGxMSsgXr 9toNawjBbjAU6vBSQohumf ZSGrlC6kCCFwlHFuoNvcQK 4wNTBpbjtm z620SeNkCFY8LXXwsXRpS9 BeuJ3aEwVzCRPwCFQdQ8Zh vOMsZZbsM808SHqbSyA4RH HqidUoA3Cp PVZnyAkyMgD6r9D4Jj0Wf6 IzxfwzRFH5YKhvVSA1JhK4 AgPlSbO3S8OyEpq9GXBdpS wySL4hA3Iu TIButckrjvmotDA5FQOwSC MjjV64jWInEDgaId6hu6K4 a798ZVIsECJvjX51Cy2jhI ogMTBwdCBU yE7wonkrh8dpkpswTaUySY UsMKu5ENa3YDTggUiwJcLm AXX7JiI1CKR7lNBuyR7tbT omkmduoQ5v Oyc+H21qjD2jVYN9RSS2ld auZOShrlTyIT59ZQ33R0Ui PjwvdGFibGU+PGRpdiBzdH dtUY0zKqAm t6wzc3XgTIooW5XnHHFmLA avBbx8VBFbZEQ2cJD5iL3i BLGrVKxqk3Z1pCR3S1Syjt Zcdn9zt0cc RLJdIQyrW22vkIWrk6T1AR OmcNK5SBFehBnfCnBxxG02 Oyc+YYCdeLkzs5ApZwuct1 ary4rnpKg1 IvYmTLCdpuGjuTnnEAD0f3 QoLu06H40qEBiuMZXlOUJv FNOiFZWldFohyl0dwI7sFl 8+PGNvbCB3 kDN7wA7pWUAoUbA1XEkmW6 22DvQjyKCfPidjr8ljn3fg nDk1VlDyVWKreuFqwRvbNT S8l5SxDm34 C05dTKrdIVQjJNGqPVWoYL OqaJqaez4xyP0aDh5+PC9j t1babg88wG38zEB+PHRkIH I3vAwcVFad DTHfhU5hZYsjKmW2EPRxKk CgaQ70pJNpRLxqHn2imHai oUpvPN2lDFXrqsoxz884Jk Jyu3obBMZi tAGnFVkgVVE2G49wc3I9ZL BtQMHuGTO6qCH5bK4nkJzt bjogbGVmdDsgdmVydGljYW dcIMeaX551 IHRvcDsnPlBhdGllbnQgTm CkOJv6Z3TdWky7JQJboRor RX7tuMBlGSgzJj6glUrciM uvAS0eQEUv mclwa996SgHoq6liJQWoyW WmONlhEMZ7F58xe6C5UETa IQKcHIO7mAG8tO7gnDwmus ogbGVmdDsg btGzwFkwDYwiPJmpK967EJ RvcDsnPkJpcnRoIERhdGU6 MX01DF39aIGtl0T2mVV8Q4 BhZGRpbmct giyqzDR3BHAcQVGaiK45Kh 8zzRkwZj2kWFZcWSR6KTGw uHOkA8DveN5cCxTcANLtWR VhT2MjyZKh MAuqF183VYnxPzV0MSTxcm HvT9VnNIAajJdnDwJ6z1J0 Kx7EG7M2RP17AG87cCKmq8 G4vXH5I9Lt PSWfhdncxhnxcBB0QYByTZ QhbC60Ve4dvXwkYi9bMAJq SBG1IDJhfGDiV6JwrS8dTh AjMDAwMDAw B3JqlFTxURcoX901PRwkXy C0JPIovqYlE4TcFUPivUha QpU1e5J0Sc8YWTk5GW27OZ 69wRYht4T6 yZZ5P2DrGBLjofwazgkcwO B1GNNsGHImdK59Yv9haYgs Az6fYDSnQFB4DPTmdRGgX2 ElyW7qJhWa VETsAAUcF2UvqVUnYNwoY4 58GMgvUaW1EPBcmnWxS5Sw SMSqiLrgJqE1t1P9Cr7MJV BwAN87NZA8 pWJ4NL43LF86L8HtVtahcN FibGU+PHRhYmxlIHdpZHRo NZmgQMWdGmJpnPhnIL2oFw 9yZGVyLWNv qEmkfOOdZaVfr4obGBRpCJ duFS3snJesA3JssQB7ZWCj r7q4Nt52D39iK7CazQE+PG CofAQ3qVA2 kR8eWuIgNkG2HZxiT295Pe BadXNrUtrpy2ebn2frlBm9 FkT6TDEbxtJojTqdVST9a9 TwEb07W04u IHdpZHRoPSIxNSUiIHZhbG ihfl3acQ3vXc9+PGNvbCB3 kRU9rM2yOpXvLxH7MEsgQ3 49InRvcCIv Qtslq4ypu7mvdFu3KqIcKW VqcsOazKkcTJG8q1VrGt83 X8KgnDial8ClVjh0vc61eO Hra7M8xPR1 G0PeNRRdkhrphEClnFtxZH 2vESNsnzztNGXnlR0pGYLc J0t5CtDdAwN4RYwwH5Sjoe Y3LAMyzJRr NMdyVJS2W34kn2C7ZNCwPN ZtJXI8zOZ2nI5vcElhpkpe bGVmdDsgdmVydGljYWwtYW niE968WCRh sPpmSMOjvA3oXOYdkZFuyZ agIG6vRIHhyakzLhZSVuSW PjebNJRPYSHFAcAEBO36JD 42pMPcp3H4 iPV1W7FrAWYoprezvojlbW Y2CMScNBMrnI00nXJdECbh Pi7op1H7w323ACAjEWPepO 18Ft1imSqt MQZpbDKFnA6qiqntl0jphv ulBlHlLQWtTEe3JAo4TKXp xGmkHpIdBGP7WfR8KVJ5yK OwuO5gqOwd haxowY3lEbr+MDUvMTEvMT i7ZPuzbFE+PAOfDZQ1vOas LVxbODCgdG5jORTjW8t8Pn JpSnS5VYzj A5BtEATodkhbVs36gO4hGm KsJdW4LRixL9YybjT3YFPo sUXvXOhwODH1N54lo3F0WM MwMDAwMDA7 nIJ8yN3zrSnwcnfzvUErrK gghsAntNjlNPaqPBjdR278 UJMxePjeMlD6IQluIVNdZO 53XO31bEQu a0T5eXA4U1ZrXZRorzcekp lfkHG0GDFrKAQsyT04nMMr ARhcOd8gr3O6p650CLWtFK NqwX39We8h cLrkVFFpsADRoF6jpzvur4 ewlgipXrNaRNDiKWv5SXv9 ATDklDotMdEkZAN1SoZ2QD Y0dQLkbR1r rArjtaeqiU9vYgp+TWFsZT wvdGQ+SOZoTAL1gUkuBUoa XPZpoB7nWJWeV1v0QyGkWr U6NRizP0Ba RCXnubidOy77fE5yYiSmNk M4DIpiH1NzpnK0MRVtnVFp YInfZCW9V17ku6V5UAIxDP IsEPU8wUX8 lZ8guTsxgbxqrEFhoRrrej BemBtjICkkEMyuD447FNLa bHeoMm39bLYxfXowejI9M6 RkPjwvdHI+ OU86BEOeIO61uBAsdQUgt9 zsdGr9FeNsWZPdBRB0yByp KEjpc5LnURNxO91fqNMdb1 A3OSOgpLfz qGHpYwGppGA3wD6vORuqkr tue3hakmfoPfhvb3jbpq56 sS73J46dEOnqIKTxOXZeZF UiIHZhbGln xc6dmR1xNp6+QHRvwYB0xM T0tE8oVrKySsT2YLejQ368 YmLhmMQsItacl4tml2lhgB c9HaQpMHGa nsOpaQdnQLC6f7OaEv98J3 9sIHdpZHRoPSIyMCUiIHZh zYtdmp4xiP7gKt1+PC9jb2 nsln58xU74 dHI+SKHdIPZ1fWoiNVwoEB NkcL6lKRomKxH5PULuOiBy rF56eNKnAQjiHt8nqFnyjM dsEA7jPCZs xsgoi384PwSaz9dnDJOenR NwHNmgQWT0X50qv8W2AAMu OUBgOEI9aHW0nR9brHrshh ogbGVmdDsg bgKvfLwhOZapMBaqE245AO PbqHadNjZzkZYbN8yrtzSB WA8zUmwdxUW+WVZvFSD6wW xlPSdwYWRk jN5yPPWcV2l2LnUeDiJ1JG beZ6HyoqH4VRSbiZMeKTLz zGYPkL3hjcbwk5zfpodpIo AwMDAwMDt0 RCg6AFEbbHrrUfNsLEJ3Kf U4SFU7mTPfvT5ijEnmzufx cD9uMcu+RklOOjwvdGQ+PH BdFUE3nLta TNarQULgxX1sZVKwT6a5Ci CcUvX4SJdeD0AvasP0ZXAh rIQmLXGweSWMrR2xqgmzp4 xvcjogIzAw VUXhXUz6FVb1DQHdvPctLo UoIUP9UzK8ACK5mWGckM5t uLczebcmpQ5vZmg+TVJOOj wvdGQ+PHRk LHC5wMbgMUpvTZMmxR0nHW EbY9g4XlDxEaL9EHhbF3Ta rmS3CQEapRWaOEWbpQOLsK 6bgogfq1ci hkzkKvRvZULhPHm7DIb2BO MvaSapSzOpUSH8PyZ3WMY3 fFTazX9wzYcwkwpocB4yMl c+JAH1VIU7 IY03OS69A6XzUdrrzQHebN U+PHRhYmxlIHdpZHRoPScx NSTbLkHpzButMB6lKr3oTW VyLWNvbGxh cHNl (more content not included)... [facility] Outside Recordson 01-29-2022 Outside Records [id number] Normal [facility] Auto Diffon 01-28-2022 Basophils/100 WBC (Bld) 1.0 % Normal 0.0-2.0 [facility] Comment on above: Order Comment: Order Added by Discern Expert. Performed By: #### 2 330694, [id number], 8826287, [id number] ####[address] [address] Basophils/Leukocytes Auto (Bld) [Pure # fraction] 0.0 E9/L Normal 0.0-0.2 [facility] Comment on above: Order Comment: Order Added by Discern Expert. Performed By: #### 2 097438, 5316918, 7529763, [id number] ####[address] [address] Eosinophils/100 WBC (Bld) 3.9 % Normal 0.0-8.0 [facility] Comment on above: Order Comment: Order Added by Discern Expert. Performed By: #### 2 117691, 9589680, 8965775, [id number] ####[address] [address] Eosinophils/Leukocyte s Auto (Bld) [Pure # fraction] 0.2 E9/L Normal 0.0-0.5 [facility] Comment on above: Order Comment: Order Added by Discern Expert. Performed By: #### 2 911731, 8418568, 0058857, [id number] ####[address] [address] Lymphocytes/100 WBC (Bld) 27.4 % Normal 14.0-50.0 [facility] Comment on above: Order Comment: Order Added by Discern Expert. Performed By: #### 2 340935, 7971552, 5437003, [id number] ####[address] [address] Lymphocytes/Leukocyte s Auto (Bld) [Pure # fraction] 1.3 E9/L Normal 1.0-4.0 [facility] Comment on above: Order Comment: Order Added by Discern Expert. Performed By: #### 2 209030, 0174780, 9108317, 84632959 ####[address] [place] [address] Monocytes/100 WBC (Bld) 8.1 % Normal 4.0-14.0 [facility] Comment on above: Order Comment: Order Added by Luis Expert. Performed By: #### 2 478069, 1280524, 4132640, [id number] ####[address] [place] [address] Monocytes/Leukocytes Auto (Bld) [Pure # fraction] 0.4 E9/L Normal 0.2-1.0 [facility] Comment on above: Order Comment: Order Added by Luis Expert. Performed By: #### 2 527216, 7669210, 6366607, [id number] ####[address] [place] [address] Neutrophils/100 WBC (Bld) 59.6 % Normal 36.0-75.0 [facility] Comment on above: Order Comment: Order Added by Luis Expert. Performed By: #### 2 251124, 6921752, 7760471, [id number] ####[address] [place] [address] Neutrophils/Leukocyte s Auto (Bld) [Pure # fraction] 2.9 E9/L Normal 2.0-7.5 [facility] Comment on above: Order Comment: Order Added by Luis Expert. Performed By: #### 2 024099, 1487960, 0528400, [id number] ####[facility] [address] [place] [address] BMPon 01-28-2022 Anion gap [Moles/Vol] 15 mmol/L Normal 6-16 [facility] Comment on above: Performed By: #### 2 092656, 7571587, 0081353, 48074191 ####[address] [place] [address] Calcium [Mass/Vol] 9.2 mg/dL Normal 8.9-11.1 [facility] Comment on above: Performed By: #### 2 149295, 3468658, 5345050, 85529543 ####[facility] [address] [place] [address] Chloride [Moles/Vol] 100 mmol/L Low 101-111 [facility] Comment on above: Performed By: #### 2 100807, 9155993, 8203021, 73560383 ####[facility] [address] [place] [address] CO2 [Moles/Vol] 24 mmol/L Normal 21-31 [facility] Comment on above: Performed By: #### 2 685419, 8424927, 5470612, [id number] ####[facility] [address] [place] [address] Creatinine [Mass/Vol] 0.8 mg/dL Normal 0.5-1.3 [facility] Comment on above: Performed By: #### 2 916208, 3908264, 4668487, 67328886 ####[facility] [address] [place] [address] Glucose [Mass/Vol] 260 mg/dL High 55-199 [facility] Comment on above: Result Comment: If t his glucose result represents a fasting glucose, interpretation should refer to the following reference range: 55-99 mg/dL Performed By: #### 2 391496, 6175443, 0130302, 41151405 ####[facility] [address] [place] [address] Potassium [Moles/Vol] 4.4 mmol/L Normal 3.5-5.3 [facility] Comment on above: Performed By: #### 2 886772, 2966678, 7291845, 28314430 ####[facility] [address] [place] [address] Sodium [Moles/Vol] 135 mmol/L Normal 135-145 [facility] Comment on above: Performed By: #### 2 767486, 5364813, 9460330, 57712240 ####[facility] [address] [place] [address] Urea nitrogen [Mass/Vol] 13 mg/dL Normal 5-21 [facility] Comment on above: Performed By: #### 2 825870, 0065286, 0090563, 22740112 ####[facility] [address] [place] [address] Urea nitrogen/Creatinine [Mass ratio] 16 No Units Normal 10-20 [facility] Comment on above: Performed By: #### 2 264729, 5064241, 2286641, 80978024 ####[facility] [address] [place] [address] CBC w/ Auto Diffon 2 Erythrocyte distribution width (RBC) [Ratio] 13.9 % Normal 10.9-14.2 [facility] Comment on above: Performed By: #### 2 456209, 6048117, 3949934, 89580880 ####[facility] [address] [place] [address] Hematocrit (Bld) [Volume fraction] 39.6 % Normal 37.7-49.0 [facility] Comment on above: Performed By: #### 2 086581, 0208499, 6524493, 98840238 ####[facility] [address] [place] [address] Hemoglobin (Bld) [Mass/Vol] 13.5 g/dL Normal 13.5-17.5 [facility] Comment on above: Performed By: #### 2 671343, 5958876, 5687621, 70671842 ####[facility] [address] [place] [address] MCH (RBC) [Entitic mass] 30.7 pg Normal 27.0-34.0 [facility] Comment on above: Performed By: #### 2 139926, 3594970, 5174187, 47037831 ####[facility] [address] [place] [address] MCHC (RBC) [Mass/Vol] 34.2 g/dL Normal 31.4-36.0 [facility] Comment on above: Performed By: #### 2 358599, 2301378, 5963492, 53709478 ####[address] [address] MCV (RBC) [Entitic vol] 89.7 fL Normal 80.0-100.0 [facility] Comment on above: Performed By: #### 2 916771, 3022196, 2831379, 92582623 ####[address] [address] Platelet mean volume (Bld) [Entitic vol] 8.9 fL Normal 6.4-10.8 [facility] Comment on above: Performed By: #### 2 385651, 5865634, 8960507, 21012337 ####[address] [address] Platelets (Bld) [#/Vol] 153.0 E9/L Normal 150.0-500.0 [facility] Comment on above: Performed By: #### 2 686340, 3150878, 7093777, 33273109 ####[address] [address] RBC (Bld) [#/Vol] 4.4 E12/L Normal 4.3-5.9 [facility] Comment on above: Performed By: #### 2 016938, 1744187, 6466881, 37894654 ####[address] [address] WBC corrected for nucl RBC Auto (Bld) [#/Vol] 4.9 E9/L Normal 4.0-11.0 [facility] Comment on above: Performed By: #### 2 184215, 1519722, 2452419, 09267252 ####[address] [address] CHEMISTRYOrdered By: SYSTEM SYSTEM on 01-28-2022 Anion gap [Moles/Vol] 15 mmol/L Normal 6 - 16 mEq/L [facility] Calcium [Mass/Vol] 9.2 mg/dL Normal 8.9 - 11. 1 mg/dL [facility] Chloride [Moles/Vol] 100 mmol/L Low 101 - 1 11 mmol/L [facility] CO2 [Moles/Vol] 24 mmol/L Normal 21 - 31 mmol/L [facility] Creatinine [Mass/Vol] 0.8 mg/dL Normal 0.5 - 1.3 mg/dL [facility]isol GFR/1.73 sq M.predicted among blacks MDRD (S/P/Bld) [Vol rate/Area] mL/min/1.73 m2 Normal >=59mL/min/1. 73 m2 FT Chem S GFR/1.73 sq M.predicted among non-blacks MDRD (S/P/Bld) [Vol rate/Area] mL/min/1.73 m2 Normal >=59mL/min/1. 73 m2 FT Chem S Glucose [Mass/Vol] 260 mg/dL High 55 - 199 mg/dL [facility] Potassium [Moles/Vol] 4.4 mmol/L Normal 3.5 - 5.3 mmol/L [facility] Sodium [Moles/Vol] 135 mmol/L Normal 135 - 145 mmol/L [facility] Urea nitrogen [Mass/Vol] 13 mg/dL Normal 5 - 21 mg/dL [facility] Urea nitrogen/Creatinine [Mass ratio] 16 mg/mg Normal 10 - 20 [facility]isol Coding Summary.on 01-28-2022 Coding Summary. [id number] Gh 0bWw+PGhlYWQ+MT7QGAStI 82htQDnaF6BN0kPCF2SITG LLACHUJ5GSG4okOT6BVugS 2VybiAv SviytJYgBQ61SEn4RNU2dQ alMHjtjZ1sbIEzM7f7SzCf KN12nW57ILveHJYhDlB8Qq ZpbjsgbWFy Y3bfPeXodQPbSim+PHRhYm xlIHdpZHRoPScxMDAlJyBz sPzeXS1kBs9fQHIwNOFtzU xhcHNlOiBj j0jpBDIkAWfpSO8cbBhqL1 NrrHY6DIQzs6a7Md20kVW+ ZOCtIDW2pGlcVWgfd330Ft Nnq5wcKKZ2 eWIaGDjkMIO7S68eo5Z6PG YeVACpCLW9mDD0eZ1rzScc mccmC3AhxSZxMpZ8CZD8wK TwdG5jyEdq dhwnbJ3jGjp+Q90FKZ2BZB BHQF3EKqu5F4QgJoyhoQB+ XR97YQZaBU78wRRykFGnj6 bayJr2JrRu PEQzPVY9xUsdYLpbq6BqDF RqQ62xxYZep6D6URYapVha aMQgLhJobHI7xV6qXWkcqj qvq4wjabjr Xmcqh6oakd00tH91U51fML egFMQaREC3REUdQVTzkHcy fx4btZ5fYd7+YJfds9pln4 etbDr9LvBt FRXlzuVswNkuWLF5o4IzAd 13S9QvlRimx0HaVcg2ab55 kCKfq9I3wJQ3SEvhNSMuzV 7dJStoMvR9 HHEqGuWbeG41oZBdSYpsQb 7rhKffoDvvJU6uMOTszome CBZctG3gVGDnxTNcwIoePE 4wNTBpbjtm k967CoJzTVI8FPNtjBBdS6 JgiN5pTdFfMKEnGBRjC7Jh nBSeNAbeO868GUyvQhT0RO XoohUtO6No QSPrlOxfZuZ6m2C4Jo2Qs6 IqoiclYLC6NHvoWNU1MeMo TzWkZcN8G0CwHpw2FLDxrE uiJP6aQ2Cz HENmkmzdpejoaRY9KXSkOC MhzZ30xKVnJVnhWb8dq1D7 f506HJDmYBLmwR71Rc0meV ogMTBwdCBU aS0gmiqmq8cpuqigCsGwXT UvOXx0XAv8PLJwhAahFuPq XXW9OnR6VIH6xAPiqG2ovM cxicxncR7r Oyc+C81fjM4rNQA4QNC4jr bdLQBmztGfZU74KI16I4Yo PjwvdGFibGU+PGRpdiBzdH peNE6rEhDj p5mpo6PeWZwmC6GaCHIzRY ytXzk2NDEzDPZ5bNS7cM9w WQHoAKzlv5C9vKE1G5Frcz Hwgo3rn8yl DYMuATbgO96wmZWjn2Y0NE EvxSH1MTWdsYjzLdAnuE83 Oyc+DGTstGfgs4GpWasgs6 ayq1lzcZv3 IpJiIIWyocCisVxgSVS1f9 KfIk52M97pKVjrVAOzXCHn XSFoVPImlGawyl8yqP2gFj 8+PGNvbCB3 aWL4yF8fTZWfVzX3UBukW2 14PcAbiXIdWmajx2qzt2az uSo8AsPyDGRdmyGdzGeyCL W1x2MdRt97 I90lZMqdLYQgBTXcWANpPF CvwJpezz1geS9mCb0+PC9j g6isyr65gO23sGQ+PHRkIH I4kQnrXZgh ZVJqvM6kBMbrVbJ7TXZeUj MtoU74yUMfMAqwQw9lwKke pNkmUU7mDMOjbyopl249Ts Jwh7nnOPIu kFMnFLkxZUT1N22ks6K6UD VcNKIhJCB9pII9mP3etZof bjogbGVmdDsgdmVydGljYW dpZHkoU355 IHRvcDsnPlBhdGllbnQgTm FsXMx7H6KwEcr5OAXdnGuj FL9gjXOwSXbrPo3acYylaA ucIF0kGZXs jbspb671FaXog1peJTDepP NhLIkgKVE2H42gn0H5HFMn OAKoRDH0zCD3uY2whSjnxm ogbGVmdDsg plMmiNtfGBraEFkdF959ZG RvcDsnPkJpcnRoIERhdGU6 KT71MS87hTYmz3H1yQS1O6 BhZGRpbmct waolsLV2YVPkMNPiiJ28Nm 8dqNhtDw5tVDRmMTF8VLZn vBDjQ5XbwN5jQvSbXHAgMQ WqD1KqxFFd FYjfC141VPjhKgH9BMJxne QgV9NaRPUdaGqmEiL2y4J6 Jn3TT8U4PB11YN84yRKgd4 T2dAB0Y1We OIFlkdheiuandQC7NRIqNM WzrW15Nm5zhOjuMi5aMKTt NUU8ALQxtSVpJ7ZzbK6gAl AjMDAwMDAw Z7UmvFUcAZnqB241UUkuDk S1NDCnodKbD9VbMGNrzWxw XpS6h4X6Kh1IWPg3PD40BT 66rWTne1G0 bKH2Y9MnRZOlzmyjmklumO R5MDOwFIDyiW15Bp3gzGkb Ou5wEXZxERM3ONGxdGYkI9 IjsC3iHhTt QKTzOQEfD3IfgOMgJXnpS1 51OFlsMuK2RGGpnsIzP0Wv GFDpmYgnRgD9p2A3Mc9ZAS HiRA25PVP6 nDZ9FK44UG37K2CoTuboyX FibGU+PHRhYmxlIHdpZHRo RDevLKMhRnVfgXsvZU3mIi 9yZGVyLWNv rFdkcRDcYkGqh7nsJHXiYX ioTQ5ysCkfF4IqyUE9TRYm y1v8Qg59B91cS3FhtWP+PG JkwRQ6xCH4 eS4yRsHdLhQ3VHaqV220Qo DzjIXvIrapr7hyw4tdzPv6 HgH7WKHblzIehJgfITB2o7 RdLg24G06x IHdpZHRoPSIxNSUiIHZhbG twxu1haG7oRd4+PGNvbCB3 cSS1wB0hSsSuFjA7YBobS5 49InRvcCIv Edylm7sko0noaJl8TqVnHU SiszQhvTwfEJV2a0GaWc37 B3FsjRhpk8IsCmo3fy10lK Oaa9R1uAH0 L3FjULTsxnayoFCrsIueNW 1mAPYlsozkPLMncY8pBTGy J5p4EiRyVeG5GBtxL8Omii J7RKMnoJOs BDfyEIW8Z02kg2J0WFCeIJ RoNXB5gKL8kE8qwDjmgnbi bGVmdDsgdmVydGljYWwtYW dmA842KXXn bAdvCFJowR6hQLIpdTWtnH juSQ1dBWUpjwbxBwVLJrGT FuznTAEQIMAHXfFMUZ50XW 43gJImu2G6 jGP1H6YfQGCoixoqqxthlF V8DJEjRLYzaN08jACoXTky Ep2fc7O9r673DFTlPXLweJ 84Ws1ikGdz YRXhhGXXuR9wacfaz7zrnf jkOaYoJKSsVNw1IUu8UYBs iCfmQmTpLHL8QgI8YDD8iF AdxM8ziSxi hdkxlY9yTja+MDUvMTEvMT l6URohyXH+ZMYdKHJ5iHkf WYxfWCHhjU0dFZJfB4j6Sk HdWxM9ZJkk Q4DeFOTnxatiId27vJ9tVt NqUuI0BDinL4OsqcC8OBBf tLTjMMmpSIP5K50xu9S1JJ MwMDAwMDA7 sPM6pY1yoHfdrurbjDTmzD tyajNkaYxfZWmoAVywU250 FGAnaCouCtB7DJzuTSAbGO 17LI76wKCm s7E2xVR0L5DyYMXsvaudbs sabRO2XFUfZVMimX97aNVo AIlmDe2ne3J9r952OJSeOV CxmD48Dj6w iApgXVCeeEWRmH9weleht1 fvinmrMnStVFNvTCd2AUt3 YPHurEdsPoIaMCK7PpT5LR I4eWRybH2g nCyoqmmylI1sEhy+TWFsZT wvdGQ+XYUuDLR1bMywJOsx UBHpuS1hRHPwC5m9JvTvHp E7INmnL6Vw UKUsasdxGr61vC0vPgWbKr D2LTllY6CmcyL2FEElrYYn GPpfMPS7M74jr8P4EQPhWR ClALV0aLT8 jO2eqTaobsmgsCCprIxusp NulUpjUAtkFNskN185YCJc dXydAy93kBFhkUfmhoE6V7 RkPjwvdHI+ JI52IRPkPQ30mKZjgLAuf9 ktbPf4PqHzGZBnMCL7pXon DMeqg7KnDAIgS96jsHKqs1 Q9MSRzyYxo sORwEdOwxQM1vJ8sQQglur xhf0riwzrzXxgqd2itum50 gB06T26mFSraKXCuHBUjZD UiIHZhbGln nh3wcV2hZr8+ERFhsFH0sU V6tC3aFgHsNrU4SRylZ738 IiXsaQLqIvihj2vej6gzpP a7CeXsUDDi elYwrQjmFOE7f0BhXj02F4 9sIHdpZHRoPSIyMCUiIHZh bOokpq1qwG5tMw9+PC9jb2 nunm21sA71 dHI+TMGtKTQ1kMltKWptOS UrwW8uISuqSrY6DZQkLgGj sH20lMAuHQxmTl9riLxzoS azKN7hGENx vrwcs725UpAte9ipEDGxcV YbCGlrAJT4D99xo1K0DXNd BGDdVKG2uUH1uN2qcCbufi ogbGVmdDsg pdOliNnsSNdaOCyaF058LS YwvNmzBxOxcCMuW7naqtWT CT1uIllukKM+TATrAMO8mG xlPSdwYWRk rZ7mCFNuL3t3BoBnWlS1CH lxE3NjyhJ1CTAchNDtHEZx zBKZjO1skfqtw6rcbreqHn AwMDAwMDt0 DSy0PIJsuQgoClFoOLB2Cw Z5YLM0oLNeaA5kpXsdknao bW1wNxb+RklOOjwvdGQ+PH CiVFJ3iCgy TPeiLOGhvC3nUEBrA2y1Pr IlNlY7VRfmY4JjmxM0VZIj uFFrDMCbwCECkA2oajtqd7 xvcjogIzAw JBDjZFr6WJs3MNOdkBfcKy SlNPM1SmJ9RPH8uKLeaS2h kQclmjixoZ1kRzw+TVJOOj wvdGQ+PHRk HCZ6hBipCKknAHFwyN2yIX SxC6x7KyDfDlR1HNlyF2Mb slG4MXYtzIZeOZSxySBBvX 3imkanw8sw xqzcYaPrWTGpKJu8AVt0HJ TwiHciEzGsTWE1ZgA8NFJ0 hGHedF6ngDkujvisjI0dOm c+DOC5TAP7 NI25EQ23L8PyCzpvwKKscA U+PHRhYmxlIHdpZHRoPScx AMLcScYtdGusDU5cAk1kEQ VyLWNvbGxh cHNl (more content not included)... Normal [facility] Consent for Treatmenton 12-31 Consent for Treatment [id number]#1.0 0CD:127 Normal [facility] HEMATOLOGYOrdered By: SYSTEM SYSTEM on 01-28-2022 Basophils/100 WBC (Bld) 1.0 % Normal 0.0 - 2.0 % [facility] Basophils/Leukocytes Auto (Bld) [Pure # fraction] 0.0 E9/L Normal 0.0 - 0.2 E9/L [facility] Eosinophils/100 WBC (Bld) 3.9 % Normal 0.0 - 8.0 % [facility] Eosinophils/Leukocyte s Auto (Bld) [Pure # fraction] 0.2 E9/L Normal 0.0 - 0.5 E9/L [facility] Lymphocytes/100 WBC (Bld) 27.4 % Normal 14.0 - 50.0 % [facility] Lymphocytes/Leukocyte s Auto (Bld) [Pure # fraction] 1.3 E9/L Normal 1.0 - 4.0 E9/L [facility] Monocytes/100 WBC (Bld) 8.1 % Normal 4.0 - 14.0 % [facility] Monocytes/Leukocytes Auto (Bld) [Pure # fraction] 0.4 E9/L Normal 0.2 - 1.0 E9/L [facility] Neutrophils/100 WBC (Bld) 59.6 % Normal 36.0 - 75.0 % [facility] Neutrophils/Leukocyte s Auto (Bld) [Pure # fraction] 2.9 E9/L Normal 2.0 - 7.5 E9/L [facility] HEMATOLOGYOrdered By: Marek Arnold on 01-28-2022 Erythrocyte distribution width (RBC) [Ratio] 13.9 % Normal 10.9 - 14.2 % [facility] Hematocrit (Bld) [Volume fraction] 39.6 % Normal 37.7 - 49.0 % [facility] Hemoglobin (Bld) [Mass/Vol] 13.5 g/dL Normal 13.5 - 17.5 gm/dL [facility] MCH (RBC) [Entitic mass] 30.7 pg Normal 27.0 - 34.0 pg [facility] MCHC (RBC) [Mass/Vol] 34.2 g/dL Normal 31.4 - 36.0 gm/dL [facility] MCV (RBC) [Entitic vol] 89.7 fL Normal 80.0 - 100.0 fL [facility] Platelet mean volume (Bld) [Entitic vol] 8.9 fL Normal 6.4 - 10.8 fL [facility] Platelets (Bld) [#/Vol] 153.0 E9/L Normal 150.0 - 500.0 E9/L [facility] RBC (Bld) [#/Vol] 4.4 E12/L Normal 4.3 - 5.9 E12/L [facility] WBC corrected for nucl RBC Auto (Bld) [#/Vol] 4.9 E9/L Normal 4.0 - 11.0 E9/L [facility] eGFRon 01-28-2022 GFR/1.73 sq M.predicted among blacks MDRD (S/P/Bld) [Vol rate/Area] mL/min/{1.73_m2} Normal >=59 [facility] Comment on above: Order Comment: Order added by Discern Expert. Result Comment: eGFR is race adjusted. AA=. Performed By: #### 2 [id number] ####[facility] [id number] [place] [address] GFR/1.73 sq M.predicted among non-blacks MDRD (S/P/Bld) [Vol rate/Area] mL/min/{1.73_m2} Normal >=59 [facility] Comment on above: Order Comment: Order added by Discern Expert. Result Comment: Assistant Merchandiser neil kidney disease could be indicated at eGFR's of less than 60 mL/min/1.73m2. Kidney failure is indicated at less than 15 mL/min/1.73m2. Performed By: #### 2 [id number] ####[facility] [id number] [place] [address] Consent for Procedure/Surger yon 01-27-2022 Consent for Procedure/Surgery [id number]#1.0 0CD:127 Normal [facility] Progress Note-Physicianon Progress Note-Physician [id number]#1.0 0CD:127 [facility] Pre-Certification Formon Pre-Certification Form [id number]#1.0 0CD:127 [facility] Coding Summary.on 01-23-2022 Coding Summary. CD:[id number] Gh 0bWw+PGhlYWQ+VR1DNRSvK 52asRVazP0AQ4pSTX9RCOR CINYIFK1WZF7szHH5OMiaY 2VybiAv SaeevKMaAC17EYy3RSB6eJ nyNQascF1anLBwL3n3PwPt CI09oJ17WFfqAWDwNqJ8Bu ZpbjsgbWFy B1tsChZmrEZaOys+PHRhYm xlIHdpZHRoPScxMDAlJyBz qJzcPU9zPf9fGFKeQXJuqR xhcHNlOiBj i0bwXXEeTFzlDZ5zoVpyS2 EyeAG2ADZwz4v5Gx85oIL+ PMXqCRA2fEbcBYfjr544Wq Vuu2vmIPP4 lLXfPWdxNAZ7Z96tf9D5XZ MyNVAdLVN7fNI8bW4mdUeu mvapT2CscJLxFlC7BAY9cO OzxC3ihDtl azvooH2dDnf+S47QBH8FGN GMDK2MLfm4X5BoYviquPF+ WU47IXWiSN63gNOpnLOrm2 gkkMr5AfWv RXQlIHS4jIlrONnfu6FcEU UjQ83psIYao6R2JGGwwSuy tYNuKbUqxKL0xR6gFDsvxv klf8mkjtek Siujw2ghzo11qR29U62oLK zeIXEwVPI3OYFtZLTtnUkz rs0gcM2xNt3+JDmtb9poa6 wxtEc9JcPo IVStjzWlsMtxWWT4a9KpEy 67Y2QeaDjrn6DpGwb7di52 xGSnk9S4bOF5XFzoZDGesQ 2qDDfgBbH8 WBUiUuYvtN61fXIyFQlrFv 0rqPghoWobWN5kOMQyermi FOVblQ5eQJSntLUwwPjjTJ 4wNTBpbjtm s845YzSuNAY8DSDmwQHxG3 MfmQ8rAlVaEZZjWYZgB3Ib cLGrAStyT067URujZdQ0KY HzpoEtL4Qm VEMbbPofYlS2y9E7Ro7Lx6 ReorsnPVO5UJuiXRW3GhT1 GyXjWtW7Y0GfEar8HGCwlU kpLT7hX7Hp CSWjkqnhczdgnBH6AYYaCI YkpA77xFXoUUkaLp5ld8S0 j469FOHxBKNdfB84Dg3fnM ogMTBwdCBU iL8dbdbqp3lsgyiyQqMaVI SuIMy0RGj9MJFfkFucDaTc LYE9FdO4WUU6aXOnbH1ewR tumwkzwA7r Oyc+X95rsH2oXAA4EFT4ft dpEHHbjtEvJW79LH60S1Rh PjwvdGFibGU+PGRpdiBzdH liJU8jYiHb b9axg2IiEZhkF4MiFMWeGI zcNuk8BFEnKEF1zXV9yJ5d EIPeJEixt8V3kVT6C3Ygje Qnuc9ay7un XKTcJAhtY57zhXWua7E6JE EraQI6NAAicGmnRqNzvA11 Oyc+XDNkwUqud7RxPflmk9 exm2lbmQx3 AsVtFXTpjhYnmAvkYPL3l8 OpJz04W77vMOwkCJMhEBCq XCBjHQSrzFcjsc4zoI2fCc 8+PGNvbCB3 gMH8tR4dQKTuDbL4DNlvZ8 01AxFtzKNaFdsnf0das6ry vDi7WaHxSYFuiqGirSlhBH H1b9CcRb37 N22zTBvyKCObIITvGMXhZF HwkKaiau7ytD5qAq2+PC9j h0uuei46cT49qCF+PHRkIH H6lLmiEHgs AADbyV4qWUsjHyF4CTCmIo VbgV63rGGmFKiwBe4auGnl zUfmEL6aMIHhsorpv958Zq Eek4qrWOUt jBNrTBwzTWN6R01be2N2AN FlFPHmVTD9rCR7cR6ymClf bjogbGVmdDsgdmVydGljYW aqWLheG018 IHRvcDsnPlBhdGllbnQgTm LeVHo6H1WeVhm7EFYymUcy QZ2nnWAqEDgdQi4lbJzmtD stGE1qIXDi unjzb321LeLcc2wlYMAymP HyETnuSJI8W47od9E0VZHd XXToSTO8tXE1pP3ovQpigk ogbGVmdDsg mtOmfLxqWUbeQXliN605ES RvcDsnPkJpcnRoIERhdGU6 WA70OU52wYYam4S5aZN3X0 BhZGRpbmct rljffFD1XRTwNAGlnA15Zg 2mbQtgQo7yREWdPIO6ZHOv wCOdF5ShkE7qRnCmMCYkCD VrY6AhgTDv JCeeU449SSuuOzT2BSGiot PbG5NsUEXetTsoOvY8r0Y4 As8EL1O9IL87VL17nPSqz9 U5sEF3L4Nb NKGqapwmrpjvrEL4JVKfBW BqvH85Hl0eiLwqZr4oODWb NLL6BHWetVSjY3GhfL9mHd AjMDAwMDAw R3BgmLFlSMgzL259QNyjJz K1EDNlboQaO2DrSSBgrBjt FzS9r2Z0Am4SWFj4ZA88NB 97iDNro5V3 gEC1M3JjRAWmwcwvldryrA J7RANaPNWwyS66Ma0geShq Cl4qCTPdDVV3YPUwmKWoF6 SgdS6hDhKa CTTdPSGoF6NtrOVvNKdxM5 52GQcuZpF2YXRzouSfM8Uq WJKdwKtoBvZ1f1Z2Im4VCN EwMD98CHY7 oVF0VJ50LJ24V0McUdyxoH FibGU+PHRhYmxlIHdpZHRo BPzjRUFeFvVmxNszFX7qXz 9yZGVyLWNv eEnojXUwWqFen2aoFACmON wvJN1dtZqmF9YfbNM1JPYj t1w2Du06U36qS6XwhMQ+PG RyxWK8eKQ0 qC6yUeMxYcI1BRfhI526Xg PveHNfYgxbg3yxj0lagUl5 VuK3FEPaayLbeFodEOB6y3 EeAb64J74e IHdpZHRoPSIxNSUiIHZhbG bhex1whP8wNb9+PGNvbCB3 xZC6iM2fClFlNiL0YUbgH6 49InRvcCIv Lddha2sqo2jmuSy2AlUuIW NxdgWfySzgKJF8r8TtSz11 J0EvlPrzw8HdPfk7fa95hI Akn7X9mWO4 I5BzYWGnnxeojZHkkDmyEQ 1bLCNnbldtROAtbG5eZZPg N2m2PqKpRuO3ZJlqZ9Hvtx Y7RUNjrKSq ZWhlMVF2P08xe5B7HROlZW EvXCO7rTN4gC3slKsxgdez bGVmdDsgdmVydGljYWwtYW urD337JUUv vKjiUYPksG8vDOHjiTXquO gjFB6nIJYjlvduFjOBPnPE TggxUKANDWRCPoYCOP08DF 65xSCfj7R0 wLC5G6ZkFSSclbfnichmnK C0LDReKHUrdT33sZJhLNpx Rq1ou7Z2n734NKDcJYQnrS 92Mc3qsDfh QCMcmRXWcC2xkdobr8zgcs rwKnEgPBRrTPa1IOt1GFMx kEomGfInTOX3CtN2UHL0fL QauH1uqJib blxkkK2lSmn+MDUvMTEvMT b3FQqyrWK+OVScPTD4hSdf MPetRVDqmY6uXRMuV7d7Qf SbPsO1WMhs P6QkBINosluwEb83gT0wHt CxZqL8QQxiS6IsqpI6DZSj gNHjDMalBFW2O25bp5A2DX MwMDAwMDA7 hPK5cH3fwBrzinqpkZHliQ lcraYmhRefIAqwIFzeE955 VTIfzEsyEaJ3NWbnXKUyIR 67FU02rKBx r6H0pRQ6Q1OaQUPmpzmtbl gusQF4YJMkOTBgjI50tZBl AVcbKl6dw5P0g646SXLlHB KwgC81Mu0w iKkrNVZmoUIPyI4ekdnwz3 ujmkstSbTvFLNoGWt0CWd3 UUPhfQyyXxBvKTV0NaS6SY Q2eTEksC4g kOioaxetcT3oBnx+TWFsZT wvdGQ+CLCaMPT2wChuPBih XVEhmP1oIPAoZ8g8QaEfKr Q8RKerV5Tp LMPuuzscRk63zO1uInMpCs Y1ZJjfW9DligN6ROXvvSJw ARytJHO0G48tf9M5QCUnXV DrYGG1eAH2 qI7skKwzkcxyuADeaEfesl LgnSexFYkyEZkzM156MQDp oDvqKyFaF7YtskqlBfxekR Q+VM87lc96 A0FuDnfbZcz2AFDvIVE2nY O3yB2sHMVuZPpum2G6iQD0 W5XyloHtmt3fe1suCZFwDR fpX85zfMUx e9R0MUOunOC2OCRscZdoMw NxeI51Dcv+ZKXhmLyjo8Ka Edyhh1qsm5yuaEw0BoYxWH IgdmFsaWdu GHN5y1MdZg77K26hSFtdUW JqHAJaPTPjNSRkrJlsug2t vJ7xHp4+VUZquJZ6bLT9lZ 4vEgLnPfR1 PQwzI834NnCjdISsWxmgk2 duy1awgBw3ClIkIGHrdcYw hYmaNAE9n0EwYs43L7RlgQ kba2OeSib4 cz80vISwg9F5tHM9Q0JjKO FqimootZUjnBtsBL8iLWRx ghtxQTRlwT3hQJRhV9v4Eu JdNaE9AIqg G2QiwaZ7LYYuwDGzSGPamR JFoB7ahixyj7yjgtacHxEf PIFlZOo4LGq2FKUmdJddDi EqZQM0XtN9 CGP4qQFmeA4snCwnoxzkwK 9wOyc+GZk7a6zzjEVaCL4f vUJ1VX25ZB83nFAcy2J0lG V5M3HbFJKu jmanwvhkrQU1SYGiDFQoaU 02Uu6ofLjmXh1uBVVrMNJ2 CVMjiWRsU5NppU7xOjSeXS SnGBZiO1Pg pLYeAJrcW532FKskSlB1YZ RfsjCbS3YiHJYvqGnbNrX5 r1C0Bb8QST47YV28KB69tT Cku6C9hZH7 V2IlPIHdvbgrcwsetAL9RG GeDQEdbL73Hi9jlUkkRe8o EZSwKQW0AVZskUVsT1RxfJ 9yOiAjMDAw YVXzI5IpbIXiAAlhN379JT kmVlF6GOZfemFiK9DzUKRp vGpbPsA8f4Y8Po7GCg57NK 27VQ09tFIb i3W4pKQ0U8IaFHShdwlqjp kzaSR9PMNwFTDwzB95Is3f lQkrTa4sGLGkNWJ4MUMddD OqG0GgrG1a XuGxJFGkROKnW3TaxHIsIL shU290VKdnZaT0LNDxndMg M4WcVEAjlJqgCxP6a0A7Ah 3ZEGdqzba6 F1GpAmyldFX+WP04RUFmMO 93oTJouULcc4uoqMp6OvKm CPPsRRU4lYjiTGgpk8LqRN XlG16heZMe c2U6 (more content not included)... Normal [facility] Consent for Treatmenton 12-30 Consent for Treatment [id number]#1.0 0CD:127 Normal [facility] Heart and Vascular Office/Cl inic Noteon 01-23-2022 Heart and Vascular Office/Clinic Note History of Present Illness Mr. Campos is a 66 year old male, morbidly obese with obstructive sleep apnea who uses CPAP, hypertension, unknown cholesterol but on atorvastatin, lifelong non-smoker, who returns to Cardiology office for follow up after extensive cardiac testing. He was last seen in the office by Dr Saldaña for further evaluation of labile BP, near syncope, dizziness, and dyspnea on exertion. He had a 12 lead EKG which revealed atrial fibrillation. His orthostatic VS were negative in office. He had echocardiogram performed at [facility], which was normal. He was ordered Event Monitor, Carotid US, Stress Testing, and Ambulatory BP monitoring. Patient underwent a nuclear stress test in February 2020 which demonstrated a large fixed defect inferiorly and anterior ischemia. Patient was seen by me in consultation in the office recommended a heart catheterization which took place on 05/16/2020 with the following results: CONCLUSIONS: 1. Minimal nonobstructive disease of the left anterior descending with angiographically normal diagonal #1 and diagonal #2. 2. Angiographically normal left circumflex. 3. Significant mid-right coronary artery stenosis in a dominant right coronary artery. 4. Moderate to severe left ventricular dysfunction with regional wall motion abnormalities of the mid-anteroapical and inferoapical henry. LVEF approximate 35 to 40%. 5. Normal LVDP. It was found the patient required intervention of his RCA which took place on the same day 05/16/2020 with the following results: CONCLUSIONS: 1. Successful Heparin and Plavix assisted angioplasty and drug-eluting stenting of the mid-right coronary artery utilizing a 4.0 x 24 Promus Synergy stent, postdilated with a 4.5 x 8 noncompliant balloon with an excellent result. 2. Nonobstructive disease of his left anterior descending and angiographically normal left circumflex. 3. Moderate to severe left ventricular dysfunction. [1] In addition he underwent echocardiogram on 05/20/2020 which showed low normal EF of 50%, no wall motion abnormalities noted, normal RVSP. Stage I diastolic dysfunction. Patient underwent unsuccessful DC cardioversion on 06/25/2020 with the following results: Unsuccessful direct current cardioversion with a maximum of 200 joules of biphasic energy. He remained in atrial fibrillation. Patient will be recovered per Anesthesiology protocol. [1] patient was then referred to [facility] and was placed on sotalol followed by repeat DC cardioversion which was successful. In addition the patient underwent a Holter monitor following that on 11/14/2020 with the following results: CONCLUSIONS: Generally benign appearing Holter monitor which was mostly sinus bradycardia or sinus rhythm. Clinical correlation suggested. [2] Finally, the patient had a repeat echocardiogram to determine if sinus rhythm has improved his LV function on 06/04/2021 with the following results: (06/04/2021 10:15 EST Echo Transthoracic w/ Contrast) SUMMARY/CONCLUSION: 1. Mild left ventricular dysfunction with above noted wall motion abnormalities. Left ventricular ejection fraction is approximately 45%. 2. Stage 1 diastolic dysfunction. 3. Mild left atrial enlargement. 4. Trivial tricuspid regurgitation with normal right ventricular systolic pressure of 25 mmHg. 5. Mild ascending aortic root dilatation of 3.8 cm. 6. In comparison to echocardiogram dated 06/07/2020, no appreciable change is noted, however, the patient appears to be in normal sinus rhythm on this examination and was in atrial fibrillation at that time. [3] To better evaluate the patient's LV dysfunction recommended a stress test which took place on 01/22/2023 with the following results: (01/22/2022 12:19 EDT NM Myocardial Spect Multi Stress) CONCLUSIONS: 1. Abnormal, adequate, Lexiscan/myocardial perfusion imaging. Positive for significant left ventricular dilatation and moderate left ventricular dysfunction with an ejection fraction of 44%. 2. There is evidence of fixed inferior apical hypoperfusion which appears to worsen with peak exercise. 3. Hypertensive blood pressure response to exercise. 4. Poor exercise capacity for age. 5. No anginal symptoms noted. 6. This is an intermediate risk study. Recommend clinical correlation or additional testing for cardiac evaluation. [1] Patient acquired COVID about 4 months ago and has had a progressive dry cough ever since then. His cough is worse with laying down, with taking deep breaths, and with speaking. 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 He is taking and tolerating his medicines well. He has had no exertional chest pain symptoms prior to his COVID infection. 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 His daughter works here at [facility] and was present for his visit. Patient is now her (more content not included)... Normal [facility] Comment on above: Result Comment: Elec tronically Signed By: Camilo STARK, Kushal Galarza\.br\Date and Time Signed: 01/23/22 14:23 EDT Stress EKG Tracingson 2021 Stress EKG Tracings [id number]#1. 00CD:127 Normal [facility] NM Myocardial Spect Part 2on 01-22-2022 NM Myocardial Spect Part 2 Exam Date/Time: 01/22/2022 12:19 EDT 01/21/2022 11:48 EDT Reason for Exam: .;Chest pain .;Chest pain Report DATE OF PROCEDURE: 01/21/2022 and 01/22/2022 over two days INDICATION: Chest pain. STUDY: After informed consent was obtained, the patient was injected with 30.8 mCi of Cardio lite for rest SPECT imaging on 01/21/22. The patient then returned the next day on 01/22/22 and attempted to undergo a treadmill EKG, however, was unable to keep up with the treadmill and was switched to Lexiscan. At the conclusion of the Lexiscan infusion, the patient was injected with 29.9 mCi of Cardiolite for stress SPECT imaging. RESTING EKG: The patient has normal sinus rhythm, leftward axis, low voltage in the precordial and limb leads, no previous myocardial infarction noted. TREADMILL EKG: The patient attempted to exercise on a treadmill but was unable to keep up with the treadmill. The patient went a total of 10 minutes and 17 seconds at a modified Benja deloris col. During this time, the patient had no anginal symptoms or dynamic EKG changes. The patient did have premature ventricular contractions during recovery, however. Given the patient's in ability to stay up with the treadmill, he was then injected with Lexiscan. Hypertensive blood pressure response to exercise with a peak blood pressure of 202/108. IMAGING: The patient's ejection fraction is 44% with moderate left ventricular dilatation with an EDV of 171 mL. TID is normal at 0.97. Rest perfusion images demonstrates what appears to be a fixed inferior defect seen in multiple views versus diaphragmatic artifact. The extent of this is about 21%. With stress, there was subtle reversibility seen in the inferior segments. CONCLUSIONS: 1. Abnormal, adequate, Lexiscan/myocardial perfusion imaging. Positive for significant left ventricular dilatation and moderate left ventricular dysfunction with an ejection fraction of 44%. 2. There is evidence of fixed inferior apical hypoperfusion which appears to worsen with peak exercise. 3. Hypertensive blood pressure response to exercise. 4. Poor exercise capacity for age. 5. No anginal symptoms noted. 6. This is an intermediate risk study. Recommend clinical correlation or additional testing for cardiac evaluation. FINAL REPORT Signed (Electronic Signature): 01/22/2022 5:58 pm Signed by: Kushal Page MD Transcribed by: cielo Technologist: MARITZA Technical Comments NM Myocardial Spect Rest/Stress 2 Day: Rest Dose (mCi Tc99m Cardiolite): 30.8 NM Myocardial Spect Part 2: Please See Report for NM Myocardial Spect Rest/Stress 2 Day Stress Dose (mCi Tc99M Cardiolite): 29.9 Normal [facility] Consent for Treatmenton 12-30 Consent for Treatment [id number]#[id number] 0CD:127 Normal [facility] CT CHEST WO CONon 01-19-2022 CT CHEST WO CON EXAMINATION: CT CHES T WO CON HISTORY: Solitary nodule of lung follow-up COMPARISON: CT chest 03/30/2021 TECHNIQUE: Axial, Coronal, and Sagittal images were created without the administration of IV contrast material. Dose reduction techniques were achieved by using automated exposure control and/or adjustment of mA and/or kV according to patient size and/or use of iterative reconstruction technique. FINDINGS: LUNGS: Stable 7 mm nodule (previously inadvertently transcribed as 11 mm) within the anterior lateral aspect of the left lower lobe near the costophrenic angle. No acute infiltrates, significant chronic interstitial changes, or suspicious nodules. PLEURA: No mass, effusion, or pneumothorax. VASCULATURE: No abnormality. LIZANDRO: No mass or pathologic adenopathy. MEDIASTINUM: No mass or pathologic adenopathy. CARDIAC: No enlargement, pericardial thickening, or significant calcification. AORTA: No aneurysm or dissection. CHEST WALL: No mass or axillary adenopathy BONES: No bone lesion or fracture. LIMITED ABDOMEN: No suspicious findings. Limited images of the upper abdomen. OTHER: Negative. IMPRESSION: 1. Lung-RADS Category 2- Benign Appearance or Behavior. Nodules with a very low likelihood of becoming a clinically active cancer due to size or lack of growth. 2. If patient is at increased risk for lung cancer consider annual screening with LDCT in 12 months. Electronically authenticated by: LORENA ANTONIO Date: 2022-01-19 17:17 Normal [facility] HEMOGLOBINon 01-19-2022 Hemoglobin (Bld) [Mass/Vol] 13.2 g/dL Critically low 14.0-18.0 [facility] Comment on above: Performed By: #### H GB #### [facility] [address] [place] [address] Dr. Maria T Canela Pre-Certification Formon Pre-Certification Form [id number]#1. 00CD:127 Normal [facility] TSH - Thyroid Stimulating Ho rmone, Serumon 12-31-2021 TSH Qn 1.65 m[IU]/L See Below [facility] [address] DO Work Phone: Comment on above: Reference Range: 0.4 4 - 3.98 TSH testing is performed using different testing methodology at [facility] than at other system hospitals. Direct result comparisons should only be made within the same method. Tobacco Screening.on 022 Adult depression screening assessment No [facility] [address] DO Work Phone: Fall risk assessment a) No falls within the last year [facility] DO Work Phone: Tobacco use status CP b) No [facility] [address] DO Work Phone: Outside Recordson 12-30-2021 Outside Records [id number] 20 [id number]#1.0 0CD:127 Normal [facility] Coding Summary.on 12-24-2021 Coding Summary. CD:[id number] Gh 0bWw+PGhlYWQ+QM9YQNRmL 92imALsqU6HO5mQSC0YNRK QJLGUEV5FPM4fqVQ5LLghV 2VybiAv FqmxoOJnWZ01ULc5JHE4hG joJPhzyT8jaQCwV6m4XtTj VT17fD94BFgnKOZwAjL0Br ZpbjsgbWFy G5vxDvCwsADhLpd+PHRhYm xlIHdpZHRoPScxMDAlJyBz rZilCI2eWa2zNGDvZZIjrS xhcHNlOiBj p4trGWVfJLevJD4moOrcT7 VpzWV3IRQjt1v1Zq81sPV+ KQPvLGB5hOrvIDqno568Sk Vjt5sdUEB3 rOReAFrjLBZ2Q71lb3Z4HK SfRXPeKXK0yLQ3iX4dgClv jpagV4YpiTVuRdW9NZD6pF KykY5tbQux eupqnO2eKum+M43RIX8UGQ OPTB0DGwv1B7WyHrrduCA+ DZ72BBVjVC30lBKqaIIlx3 ubjMe2RfAx RMFoHIL4oCmoLSpoa6HqEG EsM60mfNWrt0A6YPBdnCnp hUQrTnJeiPX3pD6uPQiojw abu1bnrajw Kttmg1puby54wR20S22aIW tvPDIeEHT7IGAmSSTahTej sx5qiY3mKt6+WYlqo2gpf2 eucHw2BqVr VNKmpqOylBqrIRB5x8IcAv 26G1FjuTofm2GuCau7uu36 tPVrq0L3fHF7POdzYKBxiL 1lGHfrQeU1 UBQzQqKepC17iUYmSOyrIv 0skOcpqSdpVX0hHNTvjjqd BGNmtY5nLDEalBHkzGanYA 4wNTBpbjtm a059YfAgKJS0NXMoaONhD8 PnaK2dOvWdKVGwCVPxF3Tr mWApMLloJ300KIsnIcM9NO JsvlGgE7Bw XDElzBvtXfF4y4N3Ix8Ib6 NvaxaoGNC0XPlrBAB7TjS1 BvReUiG4J4ZwJnz1NVQepE coBM5hV9Jh NMHqvxdxmgorpBU3DCEgAE FpgG83vZFmNVkkKu7ly5B2 m738HXXdICAnmY99Ox2ppQ ogMTBwdCBU uR4tgzxvt8xqgeynWrYnFO OzRGk9FPw2QGFjtDrdZtYq PZH5HyO7GHF8jQLbfC8kzT ricbguaT9t Oyc+H04zrH6wJAI3JRK5yj xbAHNfnrBbMU15RU12D2Fm PjwvdGFibGU+PGRpdiBzdH dwHR6gNxFf h5fvx8ClDDbbF2SqJMFfCF neFlw8ZVLtFRS5qWS2mR9m XZMqEOawr1J5rHE0S9Texm Aekf7xu5uf TMSyMPexT34onZJlz9I6NC WkjPB7OHIovPplZlGkcQ78 Oyc+HTXlkEccl4UuVaxid7 dvm4zedAe0 OaEpDENldjXwdIepNTN5j7 AwWl80C94nHIjhROCgBZAa APCrGFJbpQsdby4dnN9xDz 8+PGNvbCB3 xBE0pF5iAXQlTqT5RYqoX0 48RwZobXAkRlvbv7lun2ee vGf3JkQdMLVbweQetNexTU O3c8WvPg78 S76hNBdrCVRgYQZfZSYwIA JpjAczzf2fbF2aDe5+PC9j q5wmxt46hV86hNA+PHRkIH Q6jZkyKKbc BFTryN9hGBsqSuM0NTFhXs RvkM67kZJvDJisJq6uxAkz rXagOD8gRTMovzmwh968Wy Zla9anEYRb kXFiFRylLOT0C68ua1C1AX OiTPAuMOF1jJJ3kA3ybWmg bjogbGVmdDsgdmVydGljYW ahTSvtF126 IHRvcDsnPlBhdGllbnQgTm PoSOi3C1YdMjq4MBHlbEeb BF7woRRcKVmwTx3trOazeU jkLW7bPHCw xkdqz259EdMmc5kuVRGkgT QpSDeuBQU7V84ik5R6BHWu FMIbZKC0wDR0rH3tzXptnb ogbGVmdDsg aeDgrNhqRAfuWPwkU095QW RvcDsnPkJpcnRoIERhdGU6 MK94FX04gDXdb8P6gDS5L0 BhZGRpbmct jdablJT8JGTnHOVouG67Ld 7vqUrgVv4wHOUtEOW1ZUWn xGKnZ5KlsW4gTwGzIHLbIL YmN7BpvCZf YAvtR402UYhbEoE1BJNdkx VoG8YyOCIldEakXcD2j1T6 Xz0XP7T6WE10MR05dZVlm6 B8fNM5I1Si MFUzjqkrpacukDS1UNJmFT SpmF14Js3toKgbCn0wRFTr WTA3JEShaDYwM4AbaH1tFk AjMDAwMDAw Z7PtyRPoBMgxT782EAriCb Z1KUFnnpCpJ0SlEGYclSum WqF4k5P4Ny9RESq1RZ09WM 72zIKlw3E1 zKO3R5AiFJTlnxwfanvqdL O5SORiIGWvaH07So0szEot Fl7tMZJgEKG3QHKzsZUtU9 MjnZ3nIvZl DUPmPXJdJ2UsiZFrSOpmF1 51IBkmPcH2YZEkujVcR1Ba SOColOixOzX6l8G7Sg8IEQ ZfLK99XZJ6 hKF3LT17SS33X7SwXtkyeT FibGU+PHRhYmxlIHdpZHRo TFlfVJWsGnPdzZikFB1xDr 9yZGVyLWNv zVxpzTRrYsSmp2snSZOiHS gnPQ3slGnoY3VyqEM6GSTu b8u4Bt25E38yU6EaeWG+PG JrbFC1pIO8 sY1kVzDjAdJ4USczJ220Qg HawXErQiynm8edn0nqtUe0 ImL8AIApamXqgBikUJF2o5 EgIt60L56v IHdpZHRoPSIxNSUiIHZhbG ssnb0qpB6cJn6+PGNvbCB3 uHN6cN7zGaUtQuW7EGwvW6 49InRvcCIv Gsczl8qbe1ztdRz6EuIdKK UzzvOjhIahPYU3b9JeMs21 U8GmbEstu9BjSgf9xh58pU Sxo9A7fRC8 I4VjPARwihoxlHOurDzrHL 2hHLGkqpciOHKhyJ9oLBEg R8a6MzZfJkV5MDnoT5Wjpz S1CJHmdLOe TQwbKUA9B75qn2Y9UJMmHA AtVIW1zNG7eQ8fpTvdkuun bGVmdDsgdmVydGljYWwtYW xcB432MOZn nKdtMHOjiF4fFZMroMDmoT nhWB4fNDRalhynHeXOGgCY PidxIFNTORFJJvQYWJ12XY 25dHPvk3B6 hQN5K3XcZROyjzninvdspK O6QAVmCUFhlR72eREkCRtz Fb9no6P8z352JZSjWDFedE 08El5jiTez VQZoqJSQrX5swykag8jnal zzSeUaECLrBVw4CSl8SWTv wUhaNhHcHXU3QpL3VJE3cL KoqU0tiEem kxgnwX0kTrv+MDUvMTEvMT m6DSoyaIK+XGLrWCY2mKbf UNgmZUFblO0wAJLeO6h0Lh CnEjD0SPxk Z2OnXQGgowjkJn25nJ0tDr FlHiM1QVxqC1MyznP2QQVd mIWrVSxjJWG2P17ul2V7TB MwMDAwMDA7 vUW7dJ0ckFlyqtvcvVUqnW rhgyNsbNfyUNcwZAypQ074 ABVxoEkrPmP8MQuuCZCkZY 92RH98qNSe j4J7eYY7Y2EvWZJmkdgncz sseQL8OYPsLJWmjG51sHNj COtiGx5fy2I5p175PETxIB JmmH01Go6i bKwnKLLisYPEcK6dvonxw4 zexvbhMqJxPBVmHVc7SGt9 DERahNgmEaYrMML7KaR5MA F9hBAacW3l eRpkegnkaB8gHmn+TWFsZT wvdGQ+SIYxACD9kUowBElk SGBgoQ6uQLGfK7s8FoCrKo J3WCvfT7Cn QMXrphgxNz98dF0rBjAlJs M9QIhjB2KblpL9COFaxWMq UBazQFQ9L77tj2D2YUFdLJ XjRAK6rVZ7 yH9hgRaeimzmwXCvzVbwfi LwoVwiRXpcXHwjY775IQVk iPskZw07hQJmaPxuyiO9I1 RkPjwvdHI+ VS58NNPnIA09xTWtqJXcm7 bgcSe5OyMsYTDbQLU8cMum KNjnc3InGVOiP33dxAEno4 S9UQTinOii zBGiApKzzOC7uL9aDPdxoi jxf2chcepiIyfok2nssi03 gC53C05qXTswDUSjUFKsLF UiIHZhbGln vm9leQ7fBj1+LTMagYP8sB H8aV2vOwHkAsH5VVvqG201 PyZylBDhKzvxm8tkl4qjfC a6ZpCuOWEs vnKpoPksJDY5z4YtEp29H9 9sIHdpZHRoPSIyMCUiIHZh xLynrd2vjI2uXs1+PC9jb2 dyxu08eS30 dHI+VQBkKPU7sAjrHGztCA YtbN4nTQspGwM3NVXuPfZv rH92jBRpDGkcTf6kyTyuiY umMH5rLBGv cpfnn609GmEwr6ntZATmuQ HjWWfyIFV9M01go6A6RQYn GEEmMRK5jAJ1xP1ktFoeus ogbGVmdDsg btDsqPtwRXunWNdpK267BC PqaUbpXaAgfLLuE4cbobOG PT9xDvnsgCK+OWKuOST6aC xlPSdwYWRk iV3lEAPiY0p0DaFvYqB0NC afC4NomsH9QRDgfQMrJFEc uLTBoS9xtcgbh1ygdfoaRk AwMDAwMDt0 KMr7BSDrvUjaUdPbBEA4Bt K4HNH0jZVmxX7acOzivdmx lQ6pPrf+RklOOjwvdGQ+PH PmRTD7zIbg HPwhMLDaeA7gVDMiQ6i3Ct EwCgW3YRqqY3JpcpZ9QDCw sJBtZDUyvIAMmX9cmwlyp6 xvcjogIzAw LTZiJBv7NDl9SSEceFlsKi JoNCE7ZrZ2LGN9lFSfhR6a mNryerjlzI2eYcr+TVJOOj wvdGQ+PHRk IFA4tWtmHMxdZKHrsC4mXH QaP1s4JmLmHrX8NUmhV0La fkZ0EGAjsWMvOELurWALnY 9qnganc9vh ipxcYqHbCYYpHDp5QFl7BM QkzJjhGeAdROO7CdG4YSQ4 nRNisY2zcSiqnjoquL3jZx c+INV5YFX4 PI57FF06N8KsUppkqBZokO U+PHRhYmxlIHdpZHRoPScx REVpIeUldPozVL1pHt3xEV VyLWNvbGxh cHNl (more content not included)... Normal [facility] Consent for Treatmenton Consent for Treatment [id number] 0CD:127 Normal [facility] Heart and Vascular Office/Cl inic Noteon 12-05-2021 Heart and Vascular Office/Clinic Note History of Present Illness Mr. Campos is a 66 year old male, morbidly obese with obstructive sleep apnea who uses CPAP, hypertension, unknown cholesterol but on atorvastatin, lifelong non-smoker, who returns to Cardiology office for follow up after extensive cardiac testing. He was last seen in the office by Dr Saldaña for further evaluation of labile BP, near syncope, dizziness, and dyspnea on exertion. He had a 12 lead EKG which revealed atrial fibrillation. His orthostatic VS were negative in office. He had echocardiogram performed at [facility], which was normal. He was ordered Event Monitor, Carotid US, Stress Testing, and Ambulatory BP monitoring. Patient underwent a nuclear stress test in February 2020 which demonstrated a large fixed defect inferiorly and anterior ischemia. Patient was seen by me in consultation in the office recommended a heart catheterization which took place on 05/16/2020 with the following results: CONCLUSIONS: 1. Minimal nonobstructive disease of the left anterior descending with angiographically normal diagonal #1 and diagonal #2. 2. Angiographically normal left circumflex. 3. Significant mid-right coronary artery stenosis in a dominant right coronary artery. 4. Moderate to severe left ventricular dysfunction with regional wall motion abnormalities of the mid-anteroapical and inferoapical henry. LVEF approximate 35 to 40%. 5. Normal LVDP. It was found the patient required intervention of his RCA which took place on the same day 05/16/2020 with the following results: CONCLUSIONS: 1. Successful Heparin and Plavix assisted angioplasty and drug-eluting stenting of the mid-right coronary artery utilizing a 4.0 x 24 Promus Synergy stent, postdilated with a 4.5 x 8 noncompliant balloon with an excellent result. 2. Nonobstructive disease of his left anterior descending and angiographically normal left circumflex. 3. Moderate to severe left ventricular dysfunction. [1] In addition he underwent echocardiogram on 05/20/2020 which showed low normal EF of 50%, no wall motion abnormalities noted, normal RVSP. Stage I diastolic dysfunction. Patient underwent unsuccessful DC cardioversion on 06/25/2020 with the following results: Unsuccessful direct current cardioversion with a maximum of 200 joules of biphasic energy. He remained in atrial fibrillation. Patient will be recovered per Anesthesiology protocol. [1] In addition the patient underwent a Holter monitor following that on 11/14/2020 with the following results: CONCLUSIONS: Generally benign appearing Holter monitor which was mostly sinus bradycardia or sinus rhythm. Clinical correlation suggested. [2] Finally, the patient had a repeat echocardiogram to determine if sinus rhythm has improved his LV function on 06/04/2021 with the following results: (06/04/2021 10:15 EST Echo Transthoracic w/ Contrast) SUMMARY/CONCLUSION: 1. Mild left ventricular dysfunction with above noted wall motion abnormalities. Left ventricular ejection fraction is approximately 45%. 2. Stage 1 diastolic dysfunction. 3. Mild left atrial enlargement. 4. Trivial tricuspid regurgitation with normal right ventricular systolic pressure of 25 mmHg. 5. Mild ascending aortic root dilatation of 3.8 cm. 6. In comparison to echocardiogram dated 06/07/2020, no appreciable change is noted, however, the patient appears to be in normal sinus rhythm on this examination and was in atrial fibrillation at that time. [3] Patient acquired COVID about 3 months ago and has had a progressive dry cough ever since then. His cough is worse with laying down, with taking deep breaths, and with speaking. 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 He is taking and tolerating his medicines well. He has had no exertional chest pain symptoms prior to his COVID infection. 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 His daughter works here at [employer] and was present for his visit. In our office his blood pressure is 118/69, and pulse is 70 and regular. Physical exam is as below. His lipids dated 05/14/2020 show HDL of 42 and LDL of 72. EKG today demonstrates atrial fibrillation with controlled ventricular response, left anterior hemiblock, nonspecific interventricular conduction delay. Review of Systems Constitutional: no fever, no chills, no weakness, no fatigue Respiratory: no shortness of breath, no cough, no orthopnea, no wheezing Cardiovascular: no chest pain, no palpitations, no edema Neuro: no dizziness no light headed no syncope Additional ROS info: Except as noted in the above Review of Systems and in the History of Present Illness all other systems have been reviewed and are negative or noncontributory. Physical Exam General: alert, no acute distress Neck: Supple, noJVD nocarotid bruit Cardiovascular: regular rate and rhythm, no murmur normal peripheral perfusion R (more content not included)... Normal [facility] Comment on above: Result Comment: Elec tronically Signed By: Camilo STARK, Kushal Galarza\.rita\Date and Time Signed: 12/05/21 15:17 EDT Progress Note-Physicianon Progress Note-Physician [id number]. 00CD:127 Normal [facility] Tobacco Screening.on 021 Fall risk assessment b) One or more fall s in the last year [facility] DO Work Phone: Tobacco use status [facility]PH[facility] b) No [facility] DO Work Phone: Tobacco Screening. Yes [facility] DO Work Phone: COVID-19 Lab Corpon 10-05-19 21 SARS-CoV-2 (COVID-19) RNA PATTIE+probe Ql (Unsp spec) Not detected Normal Not Detected [facility] Comment on above: Order Comment: Healt hcare Worker?: N Result Comment: This nucleic acid amplification test was developed and its performance characteristics determined by [employer]. Nucleic acid amplification tests include RT- PCR and TMA. This test has not been FDA cleared or approved. This test has been authorized by FDA under an Emergency Use Authorization (EUA). This test is only authorized for the duration of time the declaration that circumstances exist justifying the authorization of the emergency use of in vitro diagnostic tests for detection of SARS-CoV-2 virus and/or diagnosis of COVID-19 infection under section 564(b)(1) of the Act, 21 U.S.C. 360bbb-3(b) (1), unless the authorization is terminated or revoked sooner. When diagnostic testing is negative, the possibility of a false negative result should be considered in the context of a patient's recent exposures and the presence of clinical signs and symptoms consistent with COVID-19. An individual without symptoms of COVID-19 and who is not shedding SARS-CoV-2 virus would expect to have a negative (not detected) result in this assay. PERFORMED BY: [address] [place] [address] PATHOLOGIST MAINTENANCE SUPERVISOR [employer]LECTRICAL SAMEER HARDIN M.D. Performed By: #### C ORONAVIRUS #### [facility] , Vital Signs Date Time Vital Sign Value Performing Clinician Facility 05-07-2023 11:45-0500 Body height 175.26 cm Kelly Jane Other [facility] Other 05-07-2023 11:45-0500 Body mass index (BMI) [Ratio] 53.3 kg/m2 Kelly Jane Other [facility] Other 05-07-2023 11:45-0500 Body temperature 97.2 [degF] Kelly Promond Other [facility] Other 05-07-2023 11:45-0500 Body weight 163.75 kg Kelly Lucinda Other [facility] Other 05-07-2023 11:45-0500 Diastolic blood pressure 93 mm[Hg] Kelly Lucinda Other [facility] Other 05-07-2023 11:45-0500 Respiratory rate 18 /min Kelly Lucinda Other [facility] Other 05-07-2023 11:45-0500 SaO2% (BldA) [Mass fraction] 95 % Kelly Lucinda Other [facility] Other 05-07-2023 11:45-0500 Systolic blood pressure 159 mm[Hg] Kelly Lucinda Other [facility] Other 03-08-2023 09:30-0400 Body height 175.26 cm Cristina Benítez Other [facility] Other 03-08-2023 09:30-0400 Body mass index (BMI) [Ratio] 55.67 kg/m2 Cristina Benítez Other [facility] Other 03-08-2023 09:30-0400 Body weight 171.01 kg Cristina Benítez Other [facility] Other 03-08-2023 09:30-0400 Diastolic blood pressure 85 mm[Hg] Cristina Benítez Other [facility] Other 03-08-2023 09:30-0400 Systolic blood pressure 145 mm[Hg] Cristina Benítez Other [facility] Other 02-15-2023 14:33-0400 Body height 177.8 cm Cristina Benítez Work Phone: [facility] [address] DO Work Phone: 02-15-2023 14:33-0400 Body mass index (BMI) [Ratio] 53.38 kg/m2 Cristina Benítez Work Phone: [facility] DO Work Phone: 02-15-2023 14:33-0400 Body surface area Derived from formula 2.72 m2 Cristina Benítez Work Phone: [facility] DO Work Phone: 02-15-2023 14:33-0400 Body weight 168.74 kg Cristina Benítez Work Phone: [facility] DO Work Phone: 02-15-2023 14:33-0400 Diastolic blood pressure 82 mm[Hg] Cristina Benítez Work Phone: [facility] DO Work Phone: 02-15-2023 14:33-0400 Heart rate 64 /min Cristina Benítez Work Phone: [facility] DO Work Phone: 02-15-2023 14:33-0400 Systolic blood pressure 138 mm[Hg] Cristina Benítez Work Phone: [facility] DO Work Phone: 11-23-2022 17:11-0400 Diastolic blood pressure 84 mm[Hg] Cristina Benítez Work Phone: [facility] DO Work Phone: 11-23-2022 17:11-0400 Systolic blood pressure 138 mm[Hg] Cristina Benítez Work Phone: [facility] DO Work Phone: 11-23-2022 15:32-0400 Body height 177.8 cm Cristina Benítez Work Phone: [facility] DO Work Phone: 11-23-2022 15:32-0400 Body mass index (BMI) [Ratio] 53.95 kg/m2 Cristina Benítez Work Phone: [facility] DO Work Phone: 11-23-2022 15:32-0400 Body surface area Derived from formula 2.73 m2 Cristina Benítez Work Phone: [facility] DO Work Phone: 11-23-2022 15:32-0400 Body weight 170.55 kg Cristina Benítez Work Phone: [facility] DO Work Phone: 11-23-2022 15:32-0400 Diastolic blood pressure 90 mm[Hg] Cristina Benítez Work Phone: [facility] DO Work Phone: 11-23-2022 15:32-0400 Heart rate 82 /min Cristina Benítez Work Phone: [facility] DO Work Phone: 11-23-2022 15:32-0400 Systolic blood pressure 148 mm[Hg] Cristina Benítez Work Phone: [facility] DO Work Phone: 10-05-2022 14:45-0400 Body height 177.8 cm Cristina Benítez Work Phone: [facility] DO Work Phone: 10-05-2022 14:45-0400 Body mass index (BMI) [Ratio] 53.81 kg/m2 Cristina Benítez Work Phone: [facility] DO Work Phone: 10-05-2022 14:45-0400 Body surface area Derived from formula 2.73 m2 Cristina Benítez Work Phone: [facility] DO Work Phone: 10-05-2022 14:45-0400 Body weight 170.1 kg Cristina Benítez Work Phone: [facility] DO Work Phone: 10-05-2022 14:45-0400 Diastolic blood pressure 84 mm[Hg] Cristina Benítez Work Phone: [facility] DO Work Phone: 10-05-2022 14:45-0400 Heart rate 52 /min Cristina Benítez Work Phone: [facility] DO Work Phone: 10-05-2022 14:45-0400 Systolic blood pressure 126 mm[Hg] Cristina Benítez Work Phone: [facility] DO Work Phone: 08-17-2022 15:25-0400 Body height 177.8 cm Cristina Benítez Work Phone: [facility] DO Work Phone: 08-17-2022 15:25-0400 Body mass index (BMI) [Ratio] 53.38 kg/m2 Cristina Benítez Work Phone: [facility] DO Work Phone: 08-17-2022 15:25-0400 Body surface area Derived from formula 2.72 m2 Cristina Benítez Work Phone: [facility] DO Work Phone: 08-17-2022 15:25-0400 Body weight 168.74 kg Cristina Benítez Work Phone: [facility] DO Work Phone: 08-17-2022 15:25-0400 Diastolic blood pressure 78 mm[Hg] Cristina Benítez Work Phone: [facility] DO Work Phone: 08-17-2022 15:25-0400 Heart rate 66 /min Cristina Benítez Work Phone: [facility] DO Work Phone: 08-17-2022 15:25-0400 Systolic blood pressure 124 mm[Hg] Cristina Benítez Work Phone: [facility] DO Work Phone: 07-06-2022 15:45-0500 Body height 177.8 cm Cristina Benítez Work Phone: [facility] DO Work Phone: 07-06-2022 15:45-0500 Body mass index (BMI) [Ratio] 53.38 kg/m2 Cristina Benítez Work Phone: [facility] DO Work Phone: 07-06-2022 15:45-0500 Body surface area Derived from formula 2.72 m2 Cristina Benítez Work Phone: [facility] DO Work Phone: 07-06-2022 15:45-0500 Body weight 168.74 kg Cristina Benítez Work Phone: [facility] DO Work Phone: 07-06-2022 15:45-0500 Diastolic blood pressure 80 mm[Hg] Cristina Benítez Work Phone: [facility] [employer] 250 DO Work Phone: 07-06-2022 15:45-0500 Heart rate 64 /min Cristina Benítez Work Phone: [facility] [employer] 250 DO Work Phone: 07-06-2022 15:45-0500 Systolic blood pressure 118 mm[Hg] Cristina Benítez Work Phone: [facility] [employer] [address] DO Work Phone: 06-15-2022 11:15-0500 Body height 175.26 cm Cristina Benítez Other [facility] Other 06-15-2022 11:15-0500 Body mass index (BMI) [Ratio] 55.81 kg/m2 Cristina Benítez Other [facility] Other 06-15-2022 11:15-0500 Body weight 171.46 kg Cristina Benítez Other [facility] Other 06-15-2022 11:15-0500 Diastolic blood pressure 88 mm[Hg] Cristina Benítez Other [facility] Other 06-15-2022 11:15-0500 SaO2% (BldA) [Mass fraction] 97 % Cristina Benítez Other [facility] Other 06-15-2022 11:15-0500 Systolic blood pressure 130 mm[Hg] Cristina Benítez Other [facility] Other 03-09-2022 11:20-0400 Blood Pressure Location Kushal Page [facility] 03-09-2022 11:20-0400 Diastolic blood pressure 76 mm[Hg] Kushal Page [facility] 03-09-2022 11:20-0400 Heart rate 60 /min Kushal Page [facility] 03-09-2022 11:20-0400 Respiratory rate 18 /min Kushal Page [facility] 03-09-2022 11:20-0400 SaO2% (BldA) [Mass fraction] 98 % Kushal Page [facility] 03-09-2022 11:20-0400 Systolic blood pressure 140 mm[Hg] Kushal Page [facility] 02-05-2022 06:41-0400 Blood Pressure Location Kushal Page [facility] 02-05-2022 06:41-0400 Diastolic blood pressure 82 mm[Hg] Kushal Page [facility] 02-05-2022 06:41-0400 Heart rate 56 /min Kushal Page [facility] 02-05-2022 06:41-0400 Respiratory rate 20 /min Kushal Page [facility] 02-05-2022 06:41-0400 SaO2% (BldA) [Mass fraction] 100 % Kushal Page [facility] 02-05-2022 06:41-0400 Systolic blood pressure 150 mm[Hg] Kushal Page [facility] 01-23-2022 14:04-0400 Blood Pressure Location Kushal Page [facility] 01-23-2022 14:04-0400 Diastolic blood pressure 67 mm[Hg] Kushal Page [facility] 01-23-2022 14:04-0400 Heart rate 70 /min Kushal Page [facility] 01-23-2022 14:04-0400 Respiratory rate 18 /min Kushal Page [facility] 01-23-2022 14:04-0400 SaO2% (BldA) [Mass fraction] 97 % Kushal Page [facility] 01-23-2022 14:04-0400 Systolic blood pressure 140 mm[Hg] Kushal Page [facility] 12-31-2021 11:54-0400 Body height 177.8 cm Cristina Benítez Work Phone: [facility] [address] DO Work Phone: 12-31-2021 11:54-0400 Body mass index (BMI) [Ratio] 52.95 kg/m2 Cristina Benítez Work Phone: [facility] [address] DO Work Phone: 12-31-2021 11:54-0400 Body surface area Derived from formula 2.71 m2 Cristina Benítez Work Phone: [facility] [address] DO Work Phone: 12-31-2021 11:54-0400 Body weight 167.38 kg Cristina Benítez Work Phone: [facility] [address] DO Work Phone: 12-31-2021 11:54-0400 Diastolic blood pressure 84 mm[Hg] Cristina Benítez Work Phone: [facility] [address] DO Work Phone: 12-31-2021 11:54-0400 Heart rate 67 /min Cristina Benítez Work Phone: [facility] [address] DO Work Phone: 12-31-2021 11:54-0400 Systolic blood pressure 138 mm[Hg] Cristina Benítez Work Phone: [facility] DO Work Phone: 12-05-2021 15:01-0400 Blood Pressure Location Kushal Camilo [facility] 12-05-2021 15:01-0400 Diastolic blood pressure 69 mm[Hg] Kushal Page [facility] 12-05-2021 15:01-0400 Heart rate 70 /min Kushal Page [facility] 12-05-2021 15:01-0400 Respiratory rate 18 /min Kushal Page [facility] 12-05-2021 15:01-0400 SaO2% (BldA) [Mass fraction] 98 % Kushal Page [facility] 12-05-2021 15:01-0400 Systolic blood pressure 118 mm[Hg] Kushal Camilo [facility] 04-23-2021 16:19-0500 Body height 177.8 cm [facility] Work Phone: 04-23-2021 16:19-0500 Body mass index (BMI) [Ratio] 51.94 kg/m2 Cristina Benítez Work Phone: [facility] DO Work Phone: 04-23-2021 16:19-0500 Body surface area Derived from formula 2.69 m2 Cristina Benítez Work Phone: [facility] DO Work Phone: 04-23-2021 16:19-0500 Body weight 164.2 kg Cristina Benítez Work Phone: [facility] DO Work Phone: 04-23-2021 16:19-0500 Diastolic blood pressure 62 mm[Hg] Cristina Benítez Work Phone: [facility] DO Work Phone: 04-23-2021 16:19-0500 Heart rate 65 /min Cristina Benítez Work Phone: [facility] DO Work Phone: 04-23-2021 16:19-0500 Systolic blood pressure 108 mm[Hg] Cristina Benítez Work Phone: [facility] DO Work Phone: 10-09-2020 14:30-0400 Diastolic blood pressure 66 mm[Hg] Cristina Benítez Other Phone: [facility] 10-09-2020 14:30-0400 Heart rate 50 /min Cristina Benítez Other Phone: [facility] 10-09-2020 14:30-0400 Systolic blood pressure 133 mm[Hg] Cristina Benítez Other Phone: [facility] 10-09-2020 13:00-0400 Body temperature 96.8 [degF] Cristina Benítez Other Phone: [facility] 10-09-2020 13:00-0400 Respiratory rate 19 /min Cristina Benítez Other Phone: [facility] 10-09-2020 13:00-0400 SaO2% (BldA) [Mass fraction] 98 % Cristina Benítez Other Phone: [facility] 10-09-2020 02:15-0400 Body weight 159.4 kg Cristina Benítez Other Phone: [facility] Encounters Encounter Date Encounter Type Care Provider Facility Start: 07-19-2023 End: 07-19-2023 ambulatory [facility] Start: 05-07-2023 End: 05-07-2023 ambulatory Kelly Jane Other [facility] Other Start: 05-07-2023 Office outpatient visit 15 minutes Kelly Jane [facility] Start: 05-07-2023 Telephone encounter Cristina Benítez [facility] Start: 03-08-2023 End: 03-08-2023 ambulatory Cristina Benítez Other [facility] Other Start: 03-08-2023 Office outpatient visit 25 minutes Cristina Benítez [facility] Start: 02-15-[address] Cristina Benítez Facility: Start: 02-03-2023 Rx Renewal Cristina Benítez Work Phone: [facility] DO Work Phone: Start: 01-28-2023 End: 01-28-2023 ambulatory Cristina Benítez Other [facility] Other Start: 01-28-2023 Telephone encounter Cristina Benítez [facility] Start: 12-03-[address] Cristina Benítez Facility: Start: 11-30-[address] Cristina Benítez Facility: Start: 11-30-2022 Patient encounter procedure Cristina Benítez Work Phone: [facility] DO Work Phone: Start: 11-23-2022 Office outpatient ne w 45 minutes Cristina Benítez Work Phone: [facility] DO Work Phone: Start: 11-23-[address] Primo Newman ty: Start: 10-27-2022 End: 10-28-[address] DOCTOR HOLDEN Facility:[facility] Start: 10-12-2022 Telephone encounter Cristina echavarria Work Phone: [facility] DO Work Phone: Start: 10-05-2022 Office outpatient visit 25 minutes Cristina Benítez Work Phone: [facility] DO Work Phone: Start: 10-05-[address] Primo Newman ty: Start: 09-22-2022 Patient encounter procedure Cristina Benítez Work Phone: [facility] 250 DO Work Phone: Start: 09-17-2022 Chart Update Cristina Benítez Work Phone: [facility] 250 DO Work Phone: Start: 09-17-2022 End: 09-17-2022 ambulatory Cristina Benítez Other [facility] [employer] Other Start: 09-17-2022 Telephone encounter Cristina Benítez [facility] Start: 09-10-[address] Cristina Benítez Facility:[id number] Start: 09-08-2022 End: 09-09-2022 Pre-admission assessment Kushal Page [facility] Start: 08-17-2022 Office outpatient visit 25 minutes Cristina Benítez Work Phone: [facility] 250 DO Work Phone: Start: 08-17-[address] Primo Newman ty: Start: 07-20-2022 End: 07-21-[address] DOCTOR HOLDEN Facility:H1 Start: 07-06-2022 Office outpatient visit 25 minutes Cristina Benítez Work Phone: [facility] 250 DO Work Phone: Start: 07-06-[address] Primo Newman ty: Start: 06-23-2022 End: 06-23-2022 ambulatory Cristina Benítez Other [employer] Other Start: 06-23-2022 Telephone encounter rCistina Benítez [facility] Start: 06-15-2022 Office outpatient visit 25 minutes Cristina Benítez [facility] Start: 06-15-2022 End: 06-16-[address] CRISTINA BENÍTEZ [facility] [employer] Other Start: 06-02-2022 End: 06-02-2022 ambulatory Cristina Benítez Other [employer] Other Start: 06-02-2022 Telephone encounter Cristina Benítez [facility] Start: 03-09-2022 End: 03-10-2022 ambulatory XXXX NONE Facility:[place] Start: 03-09-2022 End: 03-09-2022 Patient encounter procedure Kushal Page [facility] Start: 02-05-2022 End: 02-05-2022 ambulatory MD Kushal Page Facility:[place] Start: 02-05-2022 End: 02-05-2022 Admission to same day surgery center Kushal Page [facility] Start: 01-28-2022 End: 01-29-2022 ambulatory MD Kushal Pgae Facility:[place] Start: 01-28-2022 End: 01-28-2022 Patient encounter procedure Kushal Page [facility] Start: 01-23-2022 End: 01-24-2022 ambulatory MD Kushal Page Facility:[place] Start: 01-23-2022 End: 01-23-2022 Patient encounter procedure Kushal Page [facility] Start: 01-21-2022 End: 04-23-2022 ambulatory MD Kushal Page Facility:[place] Start: 01-21-2022 End: 04-22-2022 Frank Galarza Page [facility] Start: 01-19-2022 Rx Renewal Cristina Benítez Work Phone: [facility] 250 DO Work Phone: Start: 01-19-2022 End: 01-20-2022 ambulatory NONE LISTED REQUEST Facility: Start: 01-01-2022 Chart Update Cristina Benítez Work Phone: [facility] 320 DO Work Phone: Start: 12-31-2021 Patient encounter procedure Cristina Benítez Work Phone: [facility] 320 DO Work Phone: Start: 12-31-2021 Current tobacco non-user cad cap copd pv dm Cristina Benítez Work Phone: [facility] 320 DO Work Phone: Start: 12-05-2021 End: 12-06-2021 ambulatory MD Kushal Page Facility:[place] Start: 12-05-2021 End: 12-05-2021 Patient encounter procedure Kushal Page [facility] Start: 07-07-2021 Rx Renewal Cristina Benítez Work Phone: [facility] 250 DO Work Phone: Start: 04-23-2021 Office outpatient visit 25 minutes Cristina Benítez Work Phone: [facility] 320 DO Work Phone: Start: 10-07-2020 End: 10-09-2020 Evaluation and management of inpatient Adam Romano 8 Cardio ICU 816 01 Patient encounter status Cristina Benítez Work Phone: [facility] 320 DO Work Phone: Procedures Date Procedure Procedure Detail Performing Clinician Start: 07-19-2023 Basic metabolic 2000 panel - Serum or Plasma PRIMO STEVENS Start: 07-19-2023 CBC panel - Blood by Automated count PRIMO STEVENS Start: 07-19-2023 Comprehensive metabo lic 2000 panel - Serum or Plasma PRIMO STEVENS Start: 07-19-2023 Lipid panel PRIMO PIERRE Start: 07-19-2023 ECG 12-LEAD PRIMO PIERRE Start: 02-05-2022 Catheterization of l eft heart Kushal Page Start: 10-09-2020 End: 10-09-2020 EKG impression Deann Zuñiga Start: 2020 End: 2020 EKG impression Deann Zuñiga Start: 05-16-2020 Catheterization of l eft heart Kushal Page Start: 05-16-2020 Stent, device (physi davide object) Kushal Camilo Comment on above: Mid RCA Start: 05-04-2016 epidural steroid injection 2 Kushal Page Comment on above: 90% relief for 2 wks . back surgery 3 Kushal Page Comment on above: 1987 Cardiac catheterization Juan Benítez Work Phone: Cardioversion Cristina Benítez Work Phone: Excision of mass of neck Spencer iel Camilo Hernia repair Cristina Benítez Work Phone: Herniated structure (morphologic abnormality) Kushal Page Comment on above: 2009 Total colonoscopy Cristina echavarria Work Phone: Plan of Treatment Date Care Activity Detail Author Start: 02-15-2023 FUV, Provider: Primo Stevens, Status: Pen, Time: 12:30 PM FUV, Provider: Primo Stevens, Status: Pen, Time: 12:30 PM [facility] 250 DO Work Phone: Start: 12-02-2022 HOLTER 48, Provider: VIN IZAGUIRRE SHOE LASTER 1,[id number], Status: Pen, Time: 9:00 AM HOL[facility] 48, Provider: VIN IZAGUIRRE SHOE LASTER 1,[id number], Status: Pen, Time: 9:00 AM [facility] 250 DO Work Phone: Start: 11-23-2022 FUV, Provider: Primo Stevens, Status: Pen, Time: 3:00 PM FUV, Provider: Primo Stevens, Status: Pen, Time: 3:00 PM [facility] 250 DO Work Phone: Start: 10-05-2022 FUV, Provider: Primo Stevens, Status: Pen, Time: 2:30 PM FUV, Provider: Primo Stevens, Status: Pen, Time: 2:30 PM [facility] 250 DO Work Phone: Start: 09-10-2022 STRESS HERSON, Provider : [facility] HHVI NUCLEAR 01,[id number], Status: Pen, Time: 9:00 AM STRESS HERSON, Provider: [place] HHVI NUCLEAR 01,[id number], Status: Pen, Time: 9:00 AM [facility] 250 DO Work Phone: Start: 08-17-2022 FUV, Provider: Primo Stevens, Status: Pen, Time: 3:15 PM FUV, Provider: Primo Stevens, Status: Pen, Time: 3:15 PM [facility] 250 DO Work Phone: Start: 10-29-2021 FUV, Provider: Adam Leo, Status: Pen, Time: 3:45 PM FUV, Provider: Adam Leo, Status: Pen, Time: 3:45 [facility] Work Phone: Start: 10-09-2020 No post-op complications No po st-op complications Date: 09-Oct-2020 [facility] Start: 10-09-2020 Prolonged QT interval Prolonge d QT interval Date: 09-Oct-2020 [facility] Start: 2020 Arrhythmia Arrhythmia Ridge e: 08-Oct-2020 [facility] Start: 10-07-2020 End: 2021 [facility] Comment on above: IF patient HAS a sec ure IV access & is Unconscious, Conscious, NPO or Unable to Eat or Drink. Repeat until BG reaches 100 mg/dL or greater. Push 2-3 mL/minute. Discontinue once BG reaches 100 mg/dL or greater. IF patient DOES NOT have secure IV access & is Unconscious, Conscious, NPO or Unable to Eat or Drink. Repeat until BG reaches 100 mg/dL or greater. Discontinue once BG reaches 100 mg/dL or greater. Immunizations Immunization Date Immunization Notes Care Provider Nikole turner 03-30-2021 diphtheria, tetanus toxoids and pertussis vaccine Cristina Benítez Work Phone: [facility] 320 DO Work Phone: 09-30-2020 Pfizer-BioNTech COVI D-19 Vacc 30 MCG/0.3ML Intramuscular Suspension Cristina Benítez Work Phone: [facility] 320 DO Work Phone: 09-10-2020 Pfizer-BioNTech COVI D-19 Vacc 30 MCG/0.3ML Intramuscular Suspension Cristina Benítez Work Phone: [facility] 320 DO Work Phone: Payers Date Payer Category Payer Private Health Insurance 1957 Medicare [id number] 2. [id number] 1957 Unknown [id number] 2.16.8 [id number] 1957 Unknown [id number] 2.16.8 40.1.641468.3.579.2.727 1957 Unknown [id number] 2.16.8 40.1.181069.3.579.2.727 1957 Unknown [id number] 2.16.8 40.1.455018.3.579.2.727 1957 Unknown [id number] 2.16.8 40.1.235142.3.579.2.727 1957 Unknown [id number] 2.16.8 40.1.821335.3.579.2.727 1957 Unknown [id number] 2.16.8 40.1.199766.3.579.2.727 1957 Unknown [id number] 2.16.84 0.1.179605.3.579.2.593 1957 Unknown [id number] 2.16.84 0.1.295256.3.579.2.593 1957 Unknown [id number] 2.16.84 0.1.816362.3.579.2.593 1957 Unknown [id number] 2.16.84 0.1.544796.3.579.2.593 1957 Unknown [id number] 2.16. 840.1.304949.3.579.2.356 1957 Unknown [id number] 2.16. 840.1.742856.3.579.2.356 1957 Unknown [id number] 2.16. 840.1.292345.3.579.2.356 1957 Unknown [id number] 2.16. 840.1.065073.3.579.2.356 1957 Unknown [id number] 2.16. 840.1.262797.3.579.2.356 1957 Unknown [id number] 2.16. 840.1.725772.3.579.2.356 1957 Unknown [id number] 2.16. 840.1.268571.3.579.2.356 1957 Unknown [id number] 2.16.8 40.1.656985.3.579.2.1244 Unknown Social History Date Type Detail Facility [facility] Tobacco smoking consumption unknown [facility] Never smoker Never smoker [facility] 320 DO Work Phone: Comment on above: 2-3 cups of tea dudley y, 1 soda; Start: 05-30-2020 Tobacco smoking status Never s moked tobacco (finding) [facility] Sex Assigned At Male [facility] Functional Status Date Assessment Result Facility 03-09-2022 Functional Status N/A [facility] 02-05-2022 Functional Status Yes [facility] 01-23-2022 Functional Status N/A [facility] 12-05-2021 Functional Status N/A [facility] Functional observable [facility] Mental Status Date Assessment Result Facility 10-09-2020 Cognitive functions [id number] [facility] Clinical Notes 10-07-2020 to 05-07-2023 Note Date & Type Note Facility 05-07-2023 Evaluation note Encounter Date Diagnosis Assessment Notes Apr, Strain of lumbar region, initial encounter (ICD-10 - S39.012A) Low back pain home care material was printed Drink plenty fluids, get plenty of rest. Continue home medications as prescribed. Take the prednisone as prescribed until gone starting tomorrow. Take Tylenol as needed for pain. Follow-up with your family physician if no improvement in 2 to 3 days. Go to the ER for worsening symptoms or concerns [facility] [employer] Other 10-09-2023 Evaluation note* Encounter Date Diagnosis Assessment Notes Treatment Notes Treatment Clinical Notes Feb, Type 2 diabetes mellitus with hyperglycemia, without long-term current use of insulin (ICD-10 - E11.65) Due for A1C. Will continue present medications and monitor home glucose. Feb, Essential (primary) hypertension (ICD-10 - I10) Low sodium (2gm) diet was advised. Limit caffeine. Routine CV exercise also recommended Reviewed notes from Cardiology Feb, Dyslipidemia (ICD-10 - E78.5) Patient to continue to watch diet and increase exercise routine. Remain active as tolerated and we will continue to monitor with routine blood work. Patient is to continue with above medication as directed. Feb, Coronary artery disease involving [place] coronary artery of [place] heart without angina pectoris (ICD-10 - I25.10) Continue care w [facility] Feb, GAYLE (obstructive sleep apnea) (ICD-10 - G47.33) Continue care w Dr. Noble. [employer] Other 05-01-2023 History of Present illness Narrative* Patient was most recently seen by me September 2022 and presents for follow-up. Did not have his medications or list with him, says his lays on his medications out, and she could not accompany him to the office today. At last office visit * Patient's beta-blockers had to be discontinued because of profound bradycardia and fatigue on the combination. Currently remains on sotalol 80 mg p.o. twice daily, EKG shows sinus rhythm at 82 bpm PRinterval 158 ms QRS duration 102 ms QTc 450 ms, isolated ventricular premature beat is noted, and there is poor R wave progression. Low volts in general in the anterior and lateral precordial leads. Tolerating current medications, continues to remain very tired, BMI is excessive, clinically trace lower extremity edema, could not afford Farxiga, hence did not start. * History so far : * 1. Persistent atrial fibrillation controlled on sotalol and anticoagulated with Eliquis. * 2. Sinus node dysfunction. Patient had profound bradycardia on combination of beta-sally and sotalol, currently remains on sotalol. * 3. Coronary artery disease status post angioplasty with drug-eluting stent to the mid right coronary artery on May 16, 2020. * 4. Dyslipidemia on high-dose high intensity statin. * 5. Hypertension, controlled * 6. Morbid obesity with a BMI of 52.95. * 7. Diabetes mellitus, uncontrolled, elevated hemoglobin A1c, Trulicity was added recently. * 8. Obstructive sleep apnea on CPAP. * 9. Cardiomyopathy with a left ventricular ejection fraction of 40 to 45% per 2D echocardiogram dated June 07, 2020, [place] Heart [employer] class II, stage B heart failure. * 10. Gouty arthritis. Patient remains on allopurinol, no recent recurrence. * 11. Abnormal perfusion imaging showing an LV ejection fraction in the 20s, with subsequent cardiac catheterization showing LV ejection fraction of 45%, this was done at [facility] and that particular Catheterization did not show any flow-limiting disease. The perfusion study was done in December 2021, cardiac catheterization from January 2022 showed nonobstructive coronary artery disease of theleft system widely patent RCA stent LVEF 45% moderately dilated left ventricular chamber dimension mildly elevated LV end-diastolic pressure. * 12. General stress test August 2022-4.6 METS, 72% HPJ maximum heart rate, developed shortness of breath and the study had to be terminated. Only exercised for 3 minutes per Benja protocol. There was also blunting of blood pressure response. This is consistent with chronotropic blunting. * 13. [id number] score is 6 * Laboratory data from September 2022 showed NT proBNP level of 80 CPK 302 Free T4 and TSH were normal hemoglobin A1c 7.5, sed rate 15. CPK and sed rate were obtained because of diffuse myalgia. Hemoglobin A1c is actually down from 9.4 in May 2022. Patient reports compliance with CPAP therapy. * Recommendations: * 1. From cardiac perspective, I will increase the Entresto to 49/51 p.o. twice daily, check basic metabolic profile 7 to 10 days after that. * 2. May be a candidate for reticuloendothelial stimulants such as Provigil, will defer to primary/sleep medicine. * 3. Patient does not report any improvement in myalgia with rosuvastatin holiday, he will therefore continue rosuvastatin. * 4. To further assess his overall heart rate variability and look for bradycardia dysrhythmia as a cause of his shortness of breath, we will do a 48-hour Holter monitor as well. * 5. Weight loss would help, Farxiga prohibitively expensive Jardiance prohibitively expensive-pleaseconsider Ozempic or Rybelsus-defer to primary/endocrinology. -[facility] 250 DO Work Phone: 1(241) 254-915505-01-2023 History of Present illness Narrative* Patient was most recently seen by me September 2022 and presents for follow-up. Did not have his medications or list with him, says his lays on his medications out, and she could not accompany him to the office today. At last office visit * Patient's beta-blockers had to be discontinued because of profound bradycardia and fatigue on the combination. Currently remains on sotalol 80 mg p.o. twice daily, EKG shows sinus rhythm at 82 bpm PRinterval 158 ms QRS duration 102 ms QTc 450 ms, isolated ventricular premature beat is noted, and there is poor R wave progression. Low volts in general in the anterior and lateral precordial leads. Tolerating current medications, continues to remain very tired, BMI is excessive, clinically trace lower extremity edema, could not afford Adstrix, hence did not start. * History so far : * 1. Persistent atrial fibrillation controlled on sotalol and anticoagulated with Eliquis. * 2. Sinus node dysfunction. Patient had profound bradycardia on combination of beta-sally and sotalol, currently remains on sotalol. * 3. Coronary artery disease status post angioplasty with drug-eluting stent to the mid right coronary artery on May 16, 2020. * 4. Dyslipidemia on high-dose high intensity statin. * 5. Hypertension, controlled * 6. Morbid obesity with a BMI of 52.95. * 7. Diabetes mellitus, uncontrolled, elevated hemoglobin A1c, Trulicity was added recently. * 8. Obstructive sleep apnea on CPAP. * 9. Cardiomyopathy with a left ventricular ejection fraction of 40 to 45% per 2D echocardiogram dated June 07, 2020, [place] Heart Association class II, stage B heart failure. * 10. Gouty arthritis. Patient remains on allopurinol, no recent recurrence. * 11. Abnormal perfusion imaging showing an LV ejection fraction in the 20s, with subsequent cardiac catheterization showing LV ejection fraction of 45%, this was done at [facility] and that particular Catheterization did not show any flow-limiting disease. The perfusion study was done in December 2021, cardiac catheterization from January 2022 showed nonobstructive coronary artery disease of theleft system widely patent RCA stent LVEF 45% moderately dilated left ventricular chamber dimension mildly elevated LV end-diastolic pressure. * 12. General stress test August 2022-4.6 METS, 72% HPJ maximum heart rate, developed shortness of breath and the study had to be terminated. Only exercised for 3 minutes per Benja protocol. There was also blunting of blood pressure response. This is consistent with chronotropic blunting. * 13. [id number] score is 6 * Laboratory data from September 2022 showed NT proBNP level of 80 CPK 302 Free T4 and TSH were normal hemoglobin A1c 7.5, sed rate 15. CPK and sed rate were obtained because of diffuse myalgia. Hemoglobin A1c is actually down from 9.4 in May 2022. Patient reports compliance with CPAP therapy. * Recommendations: * 1. From cardiac perspective, I will increase the Entresto to 49/51 p.o. twice daily, check basic metabolic profile 7 to 10 days after that. * 2. May be a candidate for reticuloendothelial stimulants such as Provigil, will defer to primary/sleep medicine. * 3. Patient does not report any improvement in myalgia with rosuvastatin holiday, he will therefore continue rosuvastatin. * 4. To further assess his overall heart rate variability and look for bradycardia dysrhythmia as a cause of his shortness of breath, we will do a 48-hour Holter monitor as well. * 5. Weight loss would help, Farxiga prohibitively expensive Jardiance prohibitively expensive-pleaseconsider Uriel or Juan-defer to primary/endocrinology. -[facility] AOBiome DO Work Phone: 1([phone]) 528-461305-01-2023 History of Present illness Narrative* Patient was most recently seen by me September 2022 and presents for follow-up. Did not have his medications or list with him, says his lays on his medications out, and she could not accompany him to the office today. At last office visit * Patient's beta-blockers had to be discontinued because of profound bradycardia and fatigue on the combination. Currently remains on sotalol 80 mg p.o. twice daily, EKG shows sinus rhythm at 82 bpm PRinterval 158 ms QRS duration 102 ms QTc 450 ms, isolated ventricular premature beat is noted, and there is poor R wave progression. Low volts in general in the anterior and lateral precordial leads. Tolerating current medications, continues to remain very tired, BMI is excessive, clinically trace lower extremity edema, could not afford Farxiga, hence did not start. * EKG today shows sinus rhythm at 82 bpm with isolated supraventricular premature beats, poor R wave progression across the anterior precordial leads, normal intervals, no significant change compared to EKG of 623 with the exception of supraventricular premature beats that are now noted. * History so far : * 1. Persistent atrial fibrillation controlled on sotalol and anticoagulated with Eliquis. * 2. Sinus node dysfunction. Patient had profound bradycardia on combination of beta-sally and sotalol, currently remains on sotalol. * 3. Coronary artery disease status post angioplasty with drug-eluting stent to the mid right coronary artery on May 16, 2020. * 4. Dyslipidemia on high-dose high intensity statin. * 5. Hypertension, controlled * 6. Morbid obesity with a BMI of 52.95. * 7. Diabetes mellitus, uncontrolled, elevated hemoglobin A1c, Trulicity was added recently. * 8. Obstructive sleep apnea on CPAP. * 9. Cardiomyopathy with a left ventricular ejection fraction of 40 to 45% per 2D echocardiogram dated June 07, 2020, [place] Heart [employer] class II, stage B heart failure. * 10. Gouty arthritis. Patient remains on allopurinol, no recent recurrence. * 11. Abnormal perfusion imaging showing an LV ejection fraction in the 20s, with subsequent cardiac catheterization showing LV ejection fraction of 45%, this was done at [facility] and that particular Catheterization did not show any flow-limiting disease. The perfusion study was done in December 2021, cardiac catheterization from January 2022 showed nonobstructive coronary artery disease of theleft system widely patent RCA stent LVEF 45% moderately dilated left ventricular chamber dimension mildly elevated LV end-diastolic pressure. * 12. General stress test August 2022-4.6 METS, 72% HPJ maximum heart rate, developed shortness of breath and the study had to be terminated. Only exercised for 3 minutes per Benja protocol. There was also blunting of blood pressure response. This is consistent with chronotropic blunting. * 13. [id number] score is 6 * Laboratory data from September 2022 showed NT proBNP level of 80 CPK 302 Free T4 and TSH were normal hemoglobin A1c 7.5, sed rate 15. CPK and sed rate were obtained because of diffuse myalgia. Hemoglobin A1c is actually down from 9.4 in May 2022. Patient reports compliance with CPAP therapy. * Recommendations: * 1. From cardiac perspective, I will increase the Entresto to 49/51 p.o. twice daily, check basic metabolic profile 7 to 10 days after that. * 2. May be a candidate for reticuloendothelial stimulants such as Provigil, will defer to primary/sleep medicine. * 3. Patient does not report any improvement in myalgia with rosuvastatin holiday, he will therefore continue rosuvastatin. * 4. To further assess his overall heart rate variability and look for bradycardia dysrhythmia as a cause of his shortness of breath, we will do a 48-hour Holter monitor as well. * 5. Weight loss would help, Farxiga prohibitively expensive Jardiance prohibitively expensive-pleaseconsider Uriel or Juan-defer to primary/endocrinology. -[facility] French DO Work Phone: [phone]) 547-203504-01-2023 History of Present illness Narrative* Patient with chronic systolic heart failure functional class III, progressive and persistent fatigue and some shortness of breath, morbid obesity, obstructive sleep apnea, on high risk medication, presents for follow-up after testing. * At the last office visit I was considering the possibility of chronotropic blunting to be a cause of his shortness of breath. On history no stress test August 2022 he achieved a workload of 4.6 METS and only 72% of his age- predicted maximum heart rate. He had to stop exercising after 3 minutes. Blood pressure response to exercise was also blunted. * Patient says he has no follow-up with EP service, and does not wish to establish follow-up at this time. * Reports compliance with CPAP therapy. * Also complains of diffuse aches and pains. This may or may not be related to rosuvastatin, but would be easy to figure out, we will give him a holiday from rosuvastatin. Remains on Xarelto, no bleeding diathesis. * EKG was reviewed. Significant sinus bradycardia is noted. Compared to prior EKG there has been a further drop in heart rate. * History so far : * 1. Persistent atrial fibrillation controlled on sotalol and anticoagulated with Eliquis. * 2. Sinus node dysfunction. Patient had profound bradycardia on combination of beta-sally and sotalol, currently remains on sotalol. * 3. Coronary artery disease status post angioplasty with drug-eluting stent to the mid right coronary artery on May 16, 2020. * 4. Dyslipidemia on high-dose high intensity statin. * 5. Hypertension, controlled * 6. Morbid obesity with a BMI of 52.95. * 7. Diabetes mellitus, uncontrolled, elevated hemoglobin A1c, Trulicity was added recently. * 8. Obstructive sleep apnea on CPAP. * 9. Cardiomyopathy with a left ventricular ejection fraction of 40 to 45% per 2D echocardiogram dated June 07, 2020, [place] [employer] class II, stage B heart failure. * 10. Gouty arthritis. Patient remains on allopurinol, no recent recurrence. * 11. Abnormal perfusion imaging showing an LV ejection fraction in the 20s, with subsequent cardiac catheterization showing LV ejection fraction of 45%, this was done at [facility] and that particular Catheterization did not show any flow-limiting disease. The perfusion study was done in December 2021, cardiac catheterization from January 2022 showed nonobstructive coronary artery disease of theleft system widely patent RCA stent LVEF 45% moderately dilated left ventricular chamber dimension mildly elevated LV end-diastolic pressure. * 12. General stress test August 2022-4.6 METS, 72% HPJ maximum heart rate, developed shortness of breath and the study had to be terminated. Only exercised for 3 minutes per Benja protocol. There was also blunting of blood pressure response. * At this point, we will try to down titrate the sotalol. Patient understands that when we down titrate sotalol there is a tendency for recurrence of atrial fibrillation, and we will have to address accordingly. At this point, one of the reasons for his shortness of breath and fatigue could be chronotropic incompetence which is the result of his medications. Intrinsic sinus node dysfunction is not excluded at this time. BMI is also excessive and we talked about weight loss, and for him a good approach would be intermittent fasting. We will also benefit to check a hemoglobin A1c, blood glucose was elevated in the recent basic metabolic profile, and if he has prediabetes or diabetes he may qualify for Ozempic. That would help with weight loss. * Recommendations: * 1. Decrease sotalol to 80 mg p.o. twice daily * 2. Rosuvastatin holiday for 4 weeks, if aches and pains get drastically better, we will discontinuerosuvastatin and choose an alternate agent * 3. CPK sed rate free T4 TSH BNP level hemoglobin A1c in the near future * 4. Follow-up in about 6 weeks sooner if interval problems arise * 5. Discussed weight loss * At this point we are continuing to make risk factor modification, and continue to work-up reasons for his unrelenting fatigue and foggy brain. -[facility] DO Work Phone: [phone] Evaluation note* Encounter Date Diagnosis Assessment Notes Treatment Notes Treatment Clinical Notes May, Type 2 diabetes mellitus with hyperglycemia, without long-term current use of insulin (ICD-10 - E11.65) chronic problem - may increase or add med based on lab results May, Essential (primary) hypertension (ICD-10 - I10) chronic and controlled adequately at this time. May, Coronary artery disease involving [place] coronary artery of [place] heart without angina pectoris (ICD-10 - I25.10) May, BMI 50.0-59.9, adult (ICD-10 - Z68.43) Pt is encouraged to lose weight, change diet, and increase exercise as tolerated. [facility] [employer] Other 09-12-2022 Note [id number]:[id number] 02-05-2022 Evaluation + Plan noteExtracted from: Title:Procedure Note Heart & Vascular Author:Sandeep moncada MD, Kushal Galarza Date:02/05/22 Ordered: fentanyl, 50 microgram = 1 mL, Injection, IV Push, q2min PRN Other (see comment) for 4 dose(s), Stop date Limited # of times, Routine, Start date 02/05/22 6:30:00 EDT, 02/05/22 6:30:00 EDT heparin, 5,000 unit(s) = 5 mL, Injection, IV Push, q2min PRN Other (see comment) for 4 dose(s), Stop date Limited # of times, Routine, Start date 02/05/22 6:30:00 EDT, 02/05/22 6:30:00 EDT heparin, 1,000 unit(s) = 500 mL, Soln-IV, Misc, Once PRN Other (see comment), Routine, Start date 02/05/22 6:30:00 EDT, 02/05/22 6:30:00 EDT heparin, 1,000 unit(s) = 500 mL, Soln-IV, Misc, Once PRN Other (see comment), Routine, Start date 02/05/22 6:30:00 EDT, 02/05/22 6:30:00 EDT heparin, 1,000 unit(s) = 500 mL, Soln-IV, Misc, Once PRN Other (see comment), Routine, Start date 02/05/22 6:30:00 EDT, 02/05/22 6:30:00 EDT iopamidol, = 50 mL, Injection, IV Push, q5min PRN Other (see comment) for 4 dose(s), Stop date Limited # of times, Routine, Start date 02/05/22 6:30:00 EDT iopamidol, = 200 mL, Injection, IV Push, q5min PRN Other (see comment) for 4 dose(s), Stop date Limited # of times, Routine, Start 02/05/22 6:30:00 EDT, 02/05/22 6:30:00 EDT lidocaine, 100 mg, 10 mL, Injection, SubCutaneous, q5min PRN Other (see comment) for 3 dose(s), Stop date Limited # of times, Routine, Start date 02/05/22 6:30:00 EDT midazolam, 1 mg = 1 mL, Injection, IV Push, q2min PRN Other (see comment) for 4 dose(s), Stop date Limited # of times, Routine, Start 02/05/22 6:30:00 EDT, 02/05/22 6:30:00 EDT niCARdipine 20 mg + Sodium Chloride 0.9% intravenous solution 200 mL, 200 mL, IV, titrate per protocol, Routine, Start date 02/05/22 6:30:00 EDT, Total volume (mL): 200, 170 kg, Use as directed for radial cocktail, 2.9, m2 nitroglycerin 50 mg [5 mcg/min] + Dextrose 5% in Water intravenous solution 250 mL, 250 mL, IV, 1.5 mL/hr, Routine, Start date 02/05/22 6:30:00 EDT, 166.7 hour(s), Total volume (mL): 250, 170 kg, 2.9, m2 Sodium Chloride 0.9% intravenous solution 1,000 mL, 1,000 mL, IV, 75 mL/hr, Routine, Start date 02/05/22 6:30:00 EDT, 13.3 hour(s), Total volume (mL): 1,000, 170 kg, 2.9, m2 verapamil, 2.5 mg = 1 mL, Soln-IV, IV Push, q2min PRN Other (see comment), Routine, Start date 02/05/22 6:30:00 EDT, as directed for radial cocktail Communication Order Communication Order Communication Order Communication Order Communication Order Communication Order Communication Order Communication Order Communication Order CV Coronary IVUS FFR Initial CV Coronary IVUS Initial NPO Diet Oxygen Protocol Patient Education Routine Capillary Glucose POC Saline Lock Insert Future Appointments Appointment Date:03/09/2022 11:15:00 AM Scheduled Provider:Kushal Page MD Location:[facility].Cardiology Clinic Appointment Type:Cardiology Follow Up (FT) Future Scheduled Tests Laboratory* Basic Metabolic Panel 06/06/21 [facility]09-08-2022 Hospital Discharge instructions Patient Education 02/05/2022 10:35:09 CV - Cardiovascular Discharge Instructions (CUSTOM) [place], [place] CARDIOVASCULAR DISCHARGE INSTRUCTIONS Diet: Resume pre-procedure diet. Increase water intake the next 2 days to flush dye out of the body. Activity: If groin access: Limit activity today. Do not operate a vehicle, machinery or power tools. NO LIFTING OVER 10 POUNDS (a gallon of milk weighs 8 pounds) for 3 days. Limit climbing stairs, bending, squatting and stooping for 3 days. May resume driving in 24 hours. No sexual activity for 1 week. Let pain/discomfort guide your activity. If you are having pain, stop. Return to the Emergency Room if you have trouble breathing, walking or nausea and vomiting. Medications: Resume pre-procedure medication, unless otherwise directed. Hold the following medications for 48 hours post procedure: Actoplus MetGlucophageGlucophage XR GlucovanceAvandametFortamet Cqq-vdpouucinJrttelDvam-pfpobrzwe GlumetzaJanumetMetaglip RiometGlycomet *Minimal pain, soreness and/or discomfort is expected. *You may take OTC non-steroidal anti-inflammatory to manage discomfort, unless contraindicated. If pain is not controlled with the above medications, contact your physician. Site Care: Do not remove dressing for 24 hours unless it becomes saturated, then replace. Keep site clean and dry; inspect site daily. Do not use any lotions, powders, or ointments at the groin or wrist site for 1 week. May shower 24 hours after the procedure. Clean site with soap and water. Pat dry and apply band aid. No tub baths, swimming or hot tubs for 3 days Post Procedure: Soreness and tenderness to the site can last up to one week. Bruising may occur to site. A responsible adult should be with you for the first 24 hours after you arrive home. Keep follow-up appointment. No smoking for 24 hours as it increases the risk of developing blood clots. If you are interested in smoking cessation, contact [facility] at [phone], ext. [phone]. In the event you are unable to reach your physician, please call [facility] at [phone] and the food bagging machine operator will assist you. Seek Immediate Medical Care for: Bleeding: Apply continuous pressure to the site and Call 911. Should the arm or leg become cold, numb, blue or white call your physician immediately. Signs of infection are redness, warmth, swelling, increased tenderness, colored drainage, fever or chills Chest pain Follow Up Care 01/27/2022 09:04:57 With:Kushal Page Address: [address] [place] [phone] Business (1) When:03/09/2022 11:15:00 [facility]09-08-2022 NoteProcedure The risk/benefits of the procedure were thoroughly explained the patient including specific attention to lack of onsite surgical backup, and written informed consent was obtained. Airway Assessment: Class II: Visualization of the soft palate, fauces, uvula Airway Abnormalities: none ASA Classification: ASA 2: A patient with mild systemic disease Risks/Benefits of IV Sedation: Have been explained IV Sedation Plan: Patient agrees to IV sedation plan_ Assessment/Plan Ordered: fentanyl, 50 microgram = 1 mL, Injection, IV Push, q2min PRN Other (see comment) for 4 dose(s), Stop date Limited # of times, Routine, Start date 02/05/22 6:30:00 EDT, 02/05/22 6:30:00 EDT heparin, 5,000 unit(s) = 5 mL, Injection, IV Push, q2min PRN Other (see comment) for 4 dose(s), Stop date Limited # of times, Routine, Start date 02/05/22 6:30:00 EDT, 02/05/22 6:30:00 EDT heparin, 1,000 unit(s) = 500 mL, Soln-IV, Misc, Once PRN Other (see comment), Routine, Start date 02/05/22 6:30:00 EDT, 02/05/22 6:30:00 EDT heparin, 1,000 unit(s) = 500 mL, Soln-IV, Misc, Once PRN Other (see comment), Routine, Start date 02/05/22 6:30:00 EDT, 02/05/22 6:30:00 EDT heparin, 1,000 unit(s) = 500 mL, Soln-IV, Misc, Once PRN Other (see comment), Routine, Start date 02/05/22 6:30:00 EDT, 02/05/22 6:30:00 EDT iopamidol, = 50 mL, Injection, IV Push, q5min PRN Other (see comment) for 4 dose(s), Stop date Limited # of times, Routine, Start date 02/05/22 6:30:00 EDT iopamidol, = 200 mL, Injection, IV Push, q5min PRN Other (see comment) for 4 dose(s), Stop date Limited # of times, Routine, Start date 02/05/22 6:30:00 EDT, 02/05/22 6:30:00 EDT lidocaine, 100 mg, 10 mL, Injection, SubCutaneous, q5min PRN Other (see comment) for 3 dose(s), Stop date Limited # of times, Routine, Start date 02/05/22 6:30:00 EDT midazolam, 1 mg = 1 mL, Injection, IV Push, q2min PRN Other (see comment) for 4 dose(s), Stop date Limited # of times, Routine, Start date 02/05/22 6:30:00 EDT, 02/05/22 6:30:00 EDT niCARdipine 20 mg + Sodium Chloride 0.9% intravenous solution 200 mL, 200 mL, IV, titrate per protocol, Routine, Start date 02/05/22 6:30:00 EDT, Total volume (mL): 200, 170 kg, Use as directed for radial cocktail, 2.9, m2 nitroglycerin 50 mg [5 mcg/min] + Dextrose 5% in Water intravenous solution 250 mL, 250 mL, IV, 1.5mL/hr, Routine, Start date 02/05/22 6:30:00 EDT, 166.7 hour(s), Total volume (mL): 250, 170 kg, 2.9, m2 Sodium Chloride 0.9% intravenous solution 1,000 mL, 1,000 mL, IV, 75 mL/hr, Routine, Start date 02/05/22 6:30:00 EDT, 13.3 hour(s), Total volume (mL): 1,000, 170 kg, 2.9, m2 verapamil, 2.5 mg = 1 mL, Soln-IV, IV Push, q2min PRN Other (see comment), Routine, Start date 02/05/22 6:30:00 EDT, as directed for radial cocktail Communication Order Communication Order Communication Order Communication Order Communication Order Communication Order Communication Order Communication Order Communication Order CV Coronary IVUS FFR Initial CV Coronary IVUS Initial NPO Diet Oxygen Protocol Patient Education Routine Capillary Glucose POC Saline Lock InsertHolzer [facility] Center – JacksonComment on above:Result Comment: Electronically Signed By: Camilo STARK, Kushal Moran.br\Date and Time Signed: 02/05/22 06:47 [id number] Evaluation + Plan note Future Scheduled Tests Laboratory* Basic Metabolic Panel 06/06/21 [facility]05-12-2021 Hospital Discharge instructions* Follow Up Appointment 1:Physician/Dept/Service: Kaity Zapata ([facility] N[facility]P.)Scheduled Date/Time: [id number]: [facility] Romano officePhone Number: [phone] [facility]05-10-2021 History of Present illness Narrative* 65-year-old male who is followed for persistent atrial fibrillation. He underwent antiarrhythmic drug loading with sotalol October 07, 2020 and presents to the office today for follow-up evaluation. His carvedilol was discontinued due to heart rates in the 40s post drug loading. He did require cardioversion on October 09, 2020 for rastafarian of sinus rhythm. * Since the last office visit, he has been doing well. He denies any symptoms like shortness of breath or palpitation. Patient had occasional chest discomfort but no radiation to the arm or neck. No shortness of breath. Sharp pain on and off for few seconds. Not related with activities. * EKG performed today shows sinus rhythm rate of 65 bpm. QRS duration 104 ms. QT corrected 449 ms. Rhythm strip shows the same pattern. * General: The patient was alert and oriented x3. * Head: Normocephalic. * HEENT: Normal. * Neck: Supple. No JVD. * Lungs: Clear to auscultation and percussion. * Cardiovascular: Regular rate and rhythm. * Abdomen: Soft, bowel sounds present. * Extremities: No edema in the lower extremity. * Neurologic: alert, oriented x3 , no motor or sensory deficits * Skin : no cyanosis or pallor. * Clinical impressions: * 1. Persistent atrial fibrillation controlled on sotalol and anticoagulated with Eliquis. Long-term plan discussed with patient during this office visit * 2. Sinus node dysfunction. Stable * 3. Coronary artery disease status post angioplasty with drug-eluting stent to the mid right coronary artery on May 16, 2020. Now with chest pain. Most likely musculoskeletal * 4. Dyslipidemia on statin. * 5. Hypertension, controlled * 6. Morbid obesity with a BMI of 50.22 * 7. Diabetes mellitus. Controlled * 8. Gouty arthritis. * 9. Obstructive sleep apnea on CPAP. * 10. Cardiomyopathy with a left ventricular ejection fraction of 40 to 45% per 2D echocardiogram dated June 07, 2020, [place] Heart Association class II, stage B heart failure. * Recommendations: * Patient is doing well from the electrophysiology standpoint. We will continue with current dose of sotalol therapy. No recurrence of atrial fibrillation * Mostly chest discomfort related with musculoskeletal pain. Patient can follow- up with general cardiology scheduled * Patient would like to change Eliquis for Xarelto for better insurance coverage. Patient will start Xarelto 20 mg 1 tablet daily * Follow my office in 6 months or sooner if needed * Risk factor modifications and lifestyle modifications discussed with patient. Diet , exercise and hydration discussed during this office visit, as well as avoid alcohol, smoking and excessive caffeine use. * Prescriptions were refilled during this office visit * I have personally review with patient during this office visit, laboratory data, echocardiogram results, stress test results, Holter event monitor results prior and after the last electrophysiology visit. All questions has been answered. * Please excuse any errors in grammar or translation related to this dictation. Voice recognition software was utilized to prepare this document. [facility] DO Work Phone: [phone] History of Present illness Narrative* 65-year-old male who is followed for persistent atrial fibrillation. He underwent antiarrhythmic drug loading with sotalol October 07, 2020 and presents to the office today for follow-up evaluation. His carvedilol was discontinued due to heart rates in the 40s post drug loading. He did require cardioversion on October 09, 2020 for rastafarian of sinus rhythm. * Since the last office visit, he has been doing well. He denies any symptoms like shortness of breath or palpitation. Patient had occasional chest discomfort but no radiation to the arm or neck. No shortness of breath. Sharp pain on and off for few seconds. Not related with activities. * EKG performed today shows sinus rhythm rate of 65 bpm. QRS duration 104 ms. QT corrected 449 ms. Rhythm strip shows the same pattern. * General: The patient was alert and oriented x3. * Head: Normocephalic. * HEENT: Normal. * Neck: Supple. No JVD. * Lungs: Clear to auscultation and percussion. * Cardiovascular: Regular rate and rhythm. * Abdomen: Soft, bowel sounds present. * Extremities: No edema in the lower extremity. * Neurologic: alert, oriented x3 , no motor or sensory deficits * Skin : no cyanosis or pallor. * Clinical impressions: * 1. Persistent atrial fibrillation controlled on sotalol and anticoagulated with Eliquis. Long-term plan discussed with patient during this office visit * 2. Sinus node dysfunction. Stable * 3. Coronary artery disease status post angioplasty with drug-eluting stent to the mid right coronary artery on May 16, 2020. Now with chest pain. Most likely musculoskeletal * 4. Dyslipidemia on statin. * 5. Hypertension, controlled * 6. Morbid obesity with a BMI of 50.22 * 7. Diabetes mellitus. Controlled * 8. Gouty arthritis. * 9. Obstructive sleep apnea on CPAP. * 10. Cardiomyopathy with a left ventricular ejection fraction of 40 to 45% per 2D echocardiogram dated June 07, 2020, [place] [employer] class II, stage B heart failure. * Recommendations: * Patient is doing well from the electrophysiology standpoint. We will continue with current dose of sotalol therapy. No recurrence of atrial fibrillation * Mostly chest discomfort related with musculoskeletal pain. Patient can follow- up with general cardiology scheduled * Patient would like to change Eliquis for Xarelto for better insurance coverage. Patient will start Xarelto 20 mg 1 tablet daily * Follow my office in 6 months or sooner if needed * Risk factor modifications and lifestyle modifications discussed with patient. Diet , exercise and hydration discussed during this office visit, as well as avoid alcohol, smoking and excessive caffeine use. * Prescriptions were refilled during this office visit * I have personally review with patient during this office visit, laboratory data, echocardiogram results, stress test results, Holter event monitor results prior and after the last electrophysiology visit. All questions has been answered. * Please excuse any errors in grammar or translation related to this dictation. Voice recognition software was utilized to prepare this document. [facility] Work Phone: Evaluation + Plan note Future Appointments Appointment Date:01/23/2022 03:00:00 PM Scheduled Provider:Kushal Page MD Location:FT.Cardiology Clinic Appointment Type:Cardiology Follow Up (FT) Future Scheduled Tests Laboratory* Basic Metabolic Panel 06/06/21 Radiology* NM Myocardial Spect Rest/Stress 2 Day [facility]ments Appointment Date:02/05/2022 08:00:00 AM Scheduled Provider: [facility] (FT) Future Scheduled Tests Laboratory* Basic Metabolic Panel 06/06/21 Radiology* CV [facility]05[facility] Future Appointments Appointment Date:09/08/2022 03:15:00 PM Scheduled Provider:Kushal Page MD [facility] Type:Cardiology Follow Up (FT) Future Scheduled Tests Laboratory* Basic Metabolic [facility] Mus[facility]: ROM intact, no joint swelling, normal strengthCardiovascular: irregular rate and rhythm, no murmurs, 2+ equal pulses of the extremities, normal S 1and S 2. Telemetry shows atrial fibrillation. EKG shows Atrial fibrillation with HR 63 BPM and QTc 440msRespiratory/Thorax: Patent airways, CTAB, normal breath sounds with good chest expansion, thorax symmetricConstitutional: Well developed, awake/alert/oriented x3, no distress, alert and cooperativeNeurological: alert and oriented x3, intact senses, motor, response and reflexes, normal strengthExtremities: normal extremities, no cyanosis, edema, contusions, wounds, or clubbingPsychological: Appropriate mood and behavior [facility] CenterEvaluation noteNo InformationNortCancer Treatment Centers of America [employer] Other History general Narrative - Reported* Type Description Date Medical History Gout Medical History Depression Medical History HTN Medical History stroke Medical History Atrial fibrillation Medical History DM Surgical History Back surgery Surgical History Hernia Surgical History Mass removed from skin of neck Surgical History heart cath with stent placed Hospitalization History See past surgical hx Hospitalization History Stroke 05/2019 [facility] [employer] Other History of Present illness Narrative* Patient is new to this provider, he is accompanied by his who works at [employer] in the cafeteria. Prior records were reviewed, patient was seen previously by Drs. Page, Dr. Leo, and most recently by Lisa Sheffield. Based on these notes, * The patient is a 66-year-old male who is followed for persistent atrial fibrillation on sotalol and anticoagulated with Eliquis. Additionally he has underlying sinus node dysfunction, coronary artery disease, dyslipidemia, hypertension, and morbid obesity. He is also followed for diabetesmellitus and obstructive sleep apnea on CPAP. His left ventricular ejection fraction is 40 to 45% per 2D echocardiogram dated June 07, 2020. The patient states that he was treated for COVID in . Since that time he has had ongoing shortness of breath, cough, fatigue, occasional fluttering in his chest, and states there is a spot on one of his lungs which is being evaluated by Dr. Clinton fritz. The patient states that he is also scheduled to undergo an MRI, pulmonary function test, and Lexiscan stress test at [facility]. He states he has absolutely no energy and is easily fatigued, he is short of breath and he has a nonproductive cough. He denies fever or chills. He isaccompanied by his who questions whether he may change his cardiology follow-up to [facility] due to proximity to home. * Patient wishes to establish care at [facility]. Predominant complaints are unrelenting fatigue, short-term memory impairment, lack of motivation. * Recent history of COVID, in 2021, and since then overall decline. * Has obstructive sleep apnea and is compliant with CPAP therapy * Was previously on metformin, recently hemoglobin A1c escalated, now on Trulicity and metformin dosehas been increased. * Denies orthopnea or PND * Remains on Lasix on a regular basis * Activity level is less than 4 METS * Remains on disability. * Gives prior history of TIA, and loss of vision in the right eye which is more recent. Sees ophthalmology. * Physical exam: * Neurological: Alert and oriented X3. Cooperative and a pleasant demeanor. Normal power x4 extremities. * HEENT: Carotid upstrokes are 2+/4 bilaterally. No carotid bruits noted. No jugular vein distention noted at 90 degrees. * Cardiac: Regular S1 and S2. No S3, or S4. No murmurs or rubs noted. * Lungs: Clear to auscultation posterior laterally. Respirations are regular and non-labored. * Abdomen: Soft with active bowel sounds X4 quads. No hepatosplenomegaly noted. No palpable masses noted. * Extremities: Lower extremities are warm, dry, and intact. No lower extremity edema noted. DPs are 2+ bilaterally. * EKG is abnormal with low volts, normal intervals, low volts could be related to body habitus. * Assessment: * 1. Persistent atrial fibrillation controlled on sotalol and anticoagulated with Eliquis. * 2. Sinus node dysfunction. Patient had profound bradycardia on combination of beta-sally and sotalol, currently remains on sotalol. * 3. Coronary artery disease status post angioplasty with drug-eluting stent to the mid right coronary artery on May 16, 2020. * 4. Dyslipidemia on high-dose high intensity statin. * 5. Hypertension, controlled * 6. Morbid obesity with a BMI of 52.95. * 7. Diabetes mellitus, uncontrolled, elevated hemoglobin A1c, Trulicity was added recently. * 8. Obstructive sleep apnea on CPAP. * 9. Cardiomyopathy with a left ventricular ejection fraction of 40 to 45% per 2D echocardiogram dated June 07, 2020, [place] Heart Association class II, stage B heart failure. * 10. Gouty arthritis. Patient remains on allopurinol, no recent recurrence. * 11. Abnormal perfusion imaging showing an LV ejection fraction in the 20s, with subsequent cardiac catheterization showing LV ejection fraction of 45%, this was done at [facility] and that particular Catheterization did not show any flow-limiting disease. The perfusion study was done in December 2021, cardiac catheterization from January 2022 showed nonobstructive coronary artery disease of theleft system widely patent RCA stent LVEF 45% moderately dilated left ventricular chamber dimension mildly elevated LV end-diastolic pressure. * EKG from today shows normal sinus rhythm at 64 bpm KS interval 148 ms QRS duration 106 ms QTc 433 ms. * Recommendations: * 1. I would suggest some medication changes, I told patient and that we are trying some medication changes, and we may have to go back to original medications if there is no symptom improvement. * 2. Discontinue losartan and start Entresto 24/26 p.o. twice daily. * 3. Patient to take a holiday from atorvastatin. Rarely atorvastatin has caused memory impairment, which may or may not be reversible. * 4. Decrease furosemide to 10 mg daily * 5. Basic metabolic profile and BNP level in 2 weeks * 6. We talked about aiming to lose 1 pound every week. * 7. At subsequent office visits I would like to increase Entresto as tolerated and discontinue the Lasix. I would also like to down titrate the sotalol dose, but if atrial fibrillation recurs, we willhave to increase dose again. * Patient and are in agreement with plan. Reviewed laboratory data from May 2022 hemoglobin A1c is 9.4 sodium 133 potassium 4.5 glucose 291 ALT and AST mildly elevated hemoglobin 13.4. -[facility] [address] DO Work Phone: History of Present illness Narrative* Patient with atherosclerotic mille lacs vessel coronary artery disease, multiple cardiac risk factors including diabetes that is suboptimally controlled, increased BMI, atrial fibrillation on high risk medications sotalol and Xarelto, was most recently and initially seen by me to 623, at which time some medication changes were suggested as part of evaluation of unrelenting fatigue and memory impairment. I temporarily stopped atorvastatin, and discontinued the metoprolol succinate. * Patient continues to have fatigue. Patient was also started on Entresto, and the WINTER inhibitor was discontinued. * I reduced his Lasix dose as well * Weight has remained without change, patient has issues with his CPAP therapy, there is air leak, his continued fatigue could be multifactorial to include poorly controlled diabetes, suboptimally treated sleep apnea and chronotropic blunting. He does not report any chest pressure tightness or heaviness. Short- term memory impairment persists. * Laboratory data from 07/20/2022 was reviewed sodium 136 potassium 4.9 glucose 190 GFR greater than 60 NT proBNP level was within normal limits, hemoglobin A1c was significantly elevated at 9.4. * Assessment: * 1. Persistent atrial fibrillation controlled on sotalol and anticoagulated with Eliquis. * 2. Sinus node dysfunction. Patient had profound bradycardia on combination of beta-sally and sotalol, currently remains on sotalol. * 3. Coronary artery disease status post angioplasty with drug-eluting stent to the mid right coronary artery on May 16, 2020. * 4. Dyslipidemia on high-dose high intensity statin. * 5. Hypertension, controlled * 6. Morbid obesity with a BMI of 52.95. * 7. Diabetes mellitus, uncontrolled, elevated hemoglobin A1c, Trulicity was added recently. * 8. Obstructive sleep apnea on CPAP. * 9. Cardiomyopathy with a left ventricular ejection fraction of 40 to 45% per 2D echocardiogram dated June 07, 2020, [place] Heart Association class II, stage B heart failure. * 10. Gouty arthritis. Patient remains on allopurinol, no recent recurrence. * 11. Abnormal perfusion imaging showing an LV ejection fraction in the 20s, with subsequent cardiac catheterization showing LV ejection fraction of 45%, this was done at [facility] and that particular Catheterization did not show any flow-limiting disease. The perfusion study was done in December 2021, cardiac catheterization from January 2022 showed nonobstructive coronary artery disease of theleft system widely patent RCA stent LVEF 45% moderately dilated left ventricular chamber dimension mildly elevated LV end-diastolic pressure. * At this point we are continuing to make risk factor modification, and continue to work-up reasons for his unrelenting fatigue and foggy brain. * Recommendations: * 1. Patient to discuss with pulmonary service/sleep medicine about his CPAP leakage. * 2. Continue to stay off of atorvastatin * 3. Rosuvastatin 20 mg p.o. daily * 4. Liver enzymes in 6 weeks * 5. Liver and lipid in 3 months * 6. On current medical therapy proceed with a treadmill stress test, does not require perfusion, I am looking for chronotropic blunting and exercise capacity * 7. We talked about fark [employer], risks benefits discussed, the potential life- threatening complicationof peritoneal infection and what to watch for was also discussed. Prescription provided for 90 days, patient will first check on cost her to see if it is acceptable. Patient may diurese more once he is started on fark [employer]. He is not having any evidence of volume overload today. Lasix dose will remain the same for now. * 8. Follow-up in 3 months at which time we will proceed with additional recommendations. If there ischronotropic blunting, will discuss with EP service as to whether we can down titrate the sotalol dose. * 9. I wonder if there would be any role for stimulants such as Provigil-we will defer to sleep medicine * Recommendations: -[facility] 250 DO Work Phone: History of Present illness Narrative* Patient with atherosclerotic mille lacs vessel coronary artery disease, multiple cardiac risk factors including diabetes that is suboptimally controlled, increased BMI, atrial fibrillation on high risk medications sotalol and Xarelto, was most recently and initially seen by me to 623, at which time some medication changes were suggested as part of evaluation of unrelenting fatigue and memory impairment. I temporarily stopped atorvastatin, and discontinued the metoprolol succinate. * Patient continues to have fatigue. Patient was also started on Entresto, and the WINTER inhibitor was discontinued. * I reduced his Lasix dose as well * Weight has remained without change, patient has issues with his CPAP therapy, there is air leak, his continued fatigue could be multifactorial to include poorly controlled diabetes, suboptimally treated sleep apnea and chronotropic blunting. He does not report any chest pressure tightness or heaviness. Short- term memory impairment persists. * Laboratory data from 07/20/2022 was reviewed sodium 136 potassium 4.9 glucose 190 GFR greater than 60 NT proBNP level was within normal limits, hemoglobin A1c was significantly elevated at 9.4. * Assessment: * 1. Persistent atrial fibrillation controlled on sotalol and anticoagulated with Eliquis. * 2. Sinus node dysfunction. Patient had profound bradycardia on combination of beta-sally and sotalol, currently remains on sotalol. * 3. Coronary artery disease status post angioplasty with drug-eluting stent to the mid right coronary artery on May 16, 2020. * 4. Dyslipidemia on high-dose high intensity statin. * 5. Hypertension, controlled * 6. Morbid obesity with a BMI of 52.95. * 7. Diabetes mellitus, uncontrolled, elevated hemoglobin A1c, Trulicity was added recently. * 8. Obstructive sleep apnea on CPAP. * 9. Cardiomyopathy with a left ventricular ejection fraction of 40 to 45% per 2D echocardiogram dated June 07, 2020, [place] Heart Association class II, stage B heart failure. * 10. Gouty arthritis. Patient remains on allopurinol, no recent recurrence. * 11. Abnormal perfusion imaging showing an LV ejection fraction in the 20s, with subsequent cardiac catheterization showing LV ejection fraction of 45%, this was done at [facility] and that particular Catheterization did not show any flow-limiting disease. The perfusion study was done in December 2021, cardiac catheterization from January 2022 showed nonobstructive coronary artery disease of theleft system widely patent RCA stent LVEF 45% moderately dilated left ventricular chamber dimension mildly elevated LV end-diastolic pressure. * At this point we are continuing to make risk factor modification, and continue to work-up reasons for his unrelenting fatigue and foggy brain. * Recommendations: * 1. Patient to discuss with pulmonary service/sleep medicine about his CPAP leakage. * 2. Continue to stay off of atorvastatin * 3. Rosuvastatin 20 mg p.o. daily * 4. Liver enzymes in 6 weeks * 5. Liver and lipid in 3 months * 6. On current medical therapy proceed with a treadmill stress test, does not require perfusion, I am looking for chronotropic blunting and exercise capacity * 7. We talked about fark [employer], risks benefits discussed, the potential life- threatening complicationof peritoneal infection and what to watch for was also discussed. Prescription provided for 90 days, patient will first check on cost her to see if it is acceptable. Patient may diurese more once he is started on fark [employer]. He is not having any evidence of volume overload today. Lasix dose will remain the same for now. * 8. Follow-up in 3 months at which time we will proceed with additional recommendations. If there ischronotropic blunting, will discuss with EP service as to whether we can down titrate the sotalol dose. * 9. I wonder if there would be any role for stimulants such as Provigil-we will defer to sleep medicine * Recommendations: [facility] Work Phone: Hospital course Narrative No data available for this section [facility] data available [facility] this section [facility] data available for this [facility] Chief Complaint Patient is here today for a scheduled follow upPatient is here today for a scheduled follow upPt. here for scheduled f/u* Pt. here for scheduled f/u * Chief complaint: I had COVID in September and I am having a hard time getting over it. * History: The patient is a 66-year-old male who is followed for persistent atrial fibrillation on sotalol and anticoagulated with Eliquis. Additionally he has underlying sinus node dysfunction, coronary artery disease, dyslipidemia, hypertension, and morbid obesity. He is also followed fordiabetes mellitus and obstructive sleep apnea on CPAP. His left ventricular ejection fraction is 40to 45% per 2D echocardiogram dated June 07, 2020. The patient states that he was treated for COVID in Sep, 2021. Since that time he has had ongoing shortness of breath, cough, fatigue, occasional fluttering in his chest, and states there is a spot on one of his lungs which is being evaluated by Dr. Clinton fritz. The patient states that he is also scheduled to undergo an MRI, pulmonary function test, and Lexiscan stress test at [facility]. He states he has absolutely no energy andis easily fatigued, he is short of breath and he has a nonproductive cough. He denies fever or chills. He is accompanied by his who questions whether he may change his cardiology follow-up to [facility] due to proximity to home. * Physical exam: * Neurological: Alert and oriented X3. Cooperative and a pleasant demeanor. Normal power x4 extremities. * HEENT: Carotid upstrokes are 2+/4 bilaterally. No carotid bruits noted. No jugular vein distention noted at 90 degrees. * Cardiac: Regular S1 and S2. No S3, or S4. No murmurs or rubs noted. * Lungs: Clear to auscultation posterior laterally. Respirations are regular and non-labored. * Abdomen: Soft with active bowel sounds X4 quads. No hepatosplenomegaly noted. No palpable masses noted. * Extremities: Lower extremities are warm, dry, and intact. No lower extremity edema noted. DPs are 2+ bilaterally. * Labs and testing: Twelve-lead EKG reveals sinus rhythm at 67 bpm. QRS durations 92 ms, QT 438 ms, QTC is 462 ms. No acute ischemic changes are noted. * Clinical impressions: * 1. Persistent atrial fibrillation controlled on sotalol and anticoagulated with Eliquis. * 2. Sinus node dysfunction. * 3. Coronary artery disease status post angioplasty with drug-eluting stent to the mid right coronary artery on May 16, 2020. * 4. Dyslipidemia on statin. * 5. Hypertension, controlled with a blood pressure today 138/84. * 6. Morbid obesity with a BMI of 52.95. * 7. Diabetes mellitus, controlled. * 8. Obstructive sleep apnea on CPAP. * 9. Cardiomyopathy with a left ventricular ejection fraction of 40 to 45% per 2D echocardiogram dated June 07, 2020, [place] Heart [employer] class II, stage B heart failure. * 10. Gouty arthritis. * Recommendations: * 1. Continue current medications as prescribed. * 2. I discussed with the patient that he may follow-up with a hand tier in [facility] as requested. He was instructed to notify [facility] if he requires any medical records to be transferred. * 3. Lifestyle modifications were discussed regarding increasing activity and exercise as well as weight reduction. Patient was instructed to decrease consumption of carbohydrates and increase protein,vegetables, and fruit. He was also instructed to increase water intake and reduce caffeine consumption. * Evaluation and note by Kaity Holt CNP * Please excuse any errors in grammar or translation related to this dictation. Voice recognition software was utilized to prepare this document. LORENA CAMPOS is being seen for CAD/ AFIB old Dr. Leo patient.LORENA CAMPOS is being seen for CAD/ AFIB old Dr. Leo patient.LORENA CAMPOS is being seen for a 6 week follow-up of.LORENA CAMPOS is being seen for a 6 week follow-up of.LORENA CAMPOS is being seen for test results.LORENA CAMPOS is being seen for test results.LORENA CAMPOS is being seen for 6-8 week follow up.LORENA CAMPOS is being seen for 6-8 week follow up.LORENA CAMPOS is being seen for 6- 8 week follow up. Summary Purpose Family History Unknown Family Member Name Dates Details Family history of hypertensi on: Mother(V17.49, Z82.49) Status:Active Family history of diabetes m ellitus: Mother(V18.0, Z83.3) Status:Active History of PTCA: Mother(V45. 82, Z98.61) Status:Active Family history of coronary a rtery disease: Mother(V17.3, Z82.49) Status:Active : Father Status:Active No pertinent family history: Sibling(V49.89, Z78.9) Status:Active No Family History Records Found Advance Directives No Advanced Directives Records FoundNo Advanced Directives Records FoundNo Advanced Directives Records FoundNo Advanced Directives Records FoundNo Advanced Directives Records FoundNo Advanced Directives Records FoundNo Advanced Directives Records Found Reason for Referral Reason 07/06/22 [place] office, scanning recent documents we have from [facility], but we do not have all of them Diagnosis 1 Coronary artery dise ase involving mille lacs coronary artery of mille lacs heart without angina pectoris (I25.10) [facility] Referring Provider First Name Cristina Referring Provider Last Name Jeyson Referring Provider Specialty [facility] Referred Organization [facility] Referred Provider Albaro Au Referred Address [address] [place] [address] ,[place], [place],[address] Referred Provider Specialty Internal Med icine Referral Priority Routine Referral Appointment Date 2022-07-06 General Notes Gerri Davis 11:54:25 AM >received today, ins card attached along with previous [facility] note. referral faxed to Gerri Stapleton 06/25/2022 09:09:11 AM >faxed first attempt letter Gerri Davis 06/25/2022 01:02:50 PM >received fax with appt date and time Gerri Davis 07/07/2022 02:57:10 PM >notes in patient docs. reviewed out. closing referral at this time. Additional Source Comments <item> Privacy Markings (unrecogniz ed section and content) Section Author: Paula Sinha PROHIBITION ON REDISCLOSURE OF CONFIDENTIAL INFORMATION This notice accompanies a disclosure of information concerning a client made to you with the consent of such client. (unrecognized sect ion and content) No Status Records FoundNo Status Records FoundNo Status Records FoundNo Status Records FoundNo Status Records FoundNo Status Records FoundNo Status Records Found INFORMATION SOURCE (unrecogn ized section and content) DATE CREATED AUTHOR 07/24/2021 [facility] DATE CREATED AUTHOR AUTHOR'S ORGANIZ ATION 09/12/2022 [facility] DATE CREATED AUTHOR AUTHOR'S ORGANIZ ATION 09/26/2022 [facility] DATE CREATED AUTHOR AUTHOR'S ORGANIZ ATION 11/06/2022 [facility] DATE CREATED AUTHOR AUTHOR'S ORGANIZ ATION 02/16/2023 [facility] DATE CREATED AUTHOR AUTHOR'S ORGANIZ ATION 02/16/2023 [facility] DATE CREATED AUTHOR AUTHOR'S ORGANIZ ATION 07/20/2023 [facility] Territory Sales Consultant Team (unrecognized sect ion and content) Personnel Name: CRISTINA BENÍTEZ MD Address: [address] [place] [address] Personnel Name: CRISTINA BENÍTEZ MD Address: [address] [place] [address] Personnel Name: CRISTINA BENÍTEZ MD Address: [address] [place] [address] Personnel Name: CRISTINA BENÍTEZ MD Address: [address] [place] [address] Personnel Name: CRISTINA BENÍTEZ MD Address: Address: [address] [place] [address] Personnel Name: CRISTINA BENÍTEZ MD Address: Address: [address] [place] [address] Personnel Name: CRISTINA BENÍTEZ MD Address: Address: [address] [place] [address] REASON FOR VISIT (unrecogniz ed section and content) Refill RequestLab ResultsBS ISSUESmessageReason for Visit:Holter Monitor:LORENA is here for the application of a 48 hour Holter monitor.Ordering Physician: Dr. Primo Stevens, KELSIEiagnosis: [facility]. LORENA hancocks monitor is to be returned on: 12/02/2022Monitor number [id number] applied.Reason for Visit:Holter Monitor:LORENA is here for the application of a 48 hour Holter monitor.Ordering Physician: Dr. Primo Stevens, KELSIEiagnosis: a-fibNO equipment agreement signed. LORENA hancocks monitor is to be returned on: 12/02/2022Monitor number [id number] applied.Holter monitor returned and downloaded.Holter monitor returned and downloaded.12/03/2022 Holter monitor printed and emailed to [place] [facility] and placed on Dr. Primo Stevens MD desk to dictate.Needs OV for Disability FormReason for Visit:Holter Monitor:LORENA is here for the application of a 48 hour Holter monitor.Ordering Physician: Dr. Primo Stevens, KELSIEiagnosis: a-fibNO equipment agreement signed. LORENA hancocks monitor is to be returned on: 12/02/2022Monitor number [id number] applied.Holter monitor returned and downloaded.Holter monitor returned and downloaded.12/03/2022 Holter monitor printed and emailed to [place] [facility] and placed on Dr. Primo Stevens MD desk to dictate.Disability PaperworkRIGHT LOWER BACK PAIN, MOVING HEAVY OBJECT AT HOMNo Information FOR RECORDS PERTAINING TO PATIENTS WHO ARE OR HAVE BEEN ENROLLED IN A CHEMICAL DEPENDENCY/SUBSTANCEABUSE PROGRAM, SOME INFORMATION MAY BE OMITTED. This clinical summary was aggregated from multiple sources. Caution should be exercised in using it in the provision of clinical care. This summary normalizes information from multiple sources, and as a consequence, information in this document may materially change the coding, format and clinical context of patient data. In addition, data may be omitted in some cases. CLINICAL DECISIONS SHOULD BE BASED ON THE PRIMARY CLINICAL RECORDS. [facility]. provides no warranty or guarantee of the accuracy or completeness of information in this document.
[2023-08-13 08:50] LABS: BUN Creatinine Ratio 16.9; Carbon Dioxide 25.2 mmol/L (21.0-32.0); Chloride 101 mmol/L (98-107); Estimated GFR (African America >60 (>=60); Estimated GFR (Non-African Ame >60 (>=60); Glucose 194 mg/dL (74-106); Potassium 4.2 mmol/L (3.5-5.1); Sodium 137 mmol/L (136-145)
== END 2023-08-13 07:08 | disposition home or self-care (01) ==
LOC: LAB 07:15
PROVIDERS: PCP Family Medicine
DX: I25.5 Ischemic cardiomyopathy (principal); I50.22 Chronic systolic (congestive) heart failure
CPT/HCPCS: 36415; 80048

== ENCOUNTER 2023-08-19 07:37 | Outpatient (OUT) | payer MEDICARE, SELFPAY ==
--- OUTSIDE RECORDS SUMMARY | 2023-08-19 07:42 | XMS_ITS | CCD ---
Author Organization [facility] Care Team Providers Care Security Systems Engineer Name Role Phone Beena Benítez Unavailable Adam Leo Unavailable Akil Morrow Unavailable Beena Benítez Unavailable Unavailable Unavailable BEENA BENÍTEZ Primary Care Physician Beena Benítez Unavailable Dr. Beena Benítez Primary Care Unav ailable Margret Stevens Attending Unavailable MD Kushal Page Admitting [...] Attending Unavailable MD Kushal Page Admitting Unavailable REQUEST, DR ALFARO LISTED Primary Care Unavailmelo ANTONIO, DR LORENA Banks Consulting Unavailable SAMSA .TOÑA Admitting Unavailable SAMSA .TOÑA Attending Unavailable MORRIS .TOÑA Consulting Unavailable MISC, DR FLORES Attending Unavailable JEYSON, DR BEENA Albarado Primary Care Unavailable MISC, DR FLORES Admitting Unavailable MISC, DR FLORES Consulting Unavailable MISC, DR FLORES Attending Unavailable BENÍTEZ, DR BEENA Albarado Primary Care Unavailable MISC, DR FLORES Admitting Unavailable MISC, DR FLORES Consulting Unavailable JEYSON, DR BEENA Albarado Admitting Unavailable BENÍTEZ, DR BEENA Albarado Primary Care Unavailable BENÍTEZ, DR BEENA Albarado Consulting Unavailable BENÍTEZ, DR BEENA Albarado Attending Unavailable Stevens, Dr. Oswald Attending Unavailable Jeyson, Dr. Beena Cunha Primary Care Unav ailable Rodney, Dr. Oswald Referring Unavailable Rodney, Dr. Oswald Attending Unavailable Jeyson, Dr. Beena Cunha Primary Care Unav ailable Rodney, Dr. Oswald Referring Unavailable Benítez, Dr. Beena Cunha Primary Care Unav ailable Rodney, Dr. Oswald Attending Unavailable Stevens, Dr. Oswald Referring Unavailable Benítez, Dr. Beena Cunha Primary Care Unav ailable Stevens, Dr. Oswald Referring Unavailable Stevens, Dr. Oswald Attending Unavailable Rodney, Dr. Oswald Attending Unavailable Jeyson, Dr. Beena Cunha Primary Care Unav ailable Rodney, Dr. Oswald Referring Unavailable Benítez, Dr. Beena Cunha Primary Care Unav ailable Stevens, Dr. Oswald Referring Unavailable Stevens, Dr. Oswald Attending Unavailable Stevens, Dr. Oswald Attending Unavailable Benítez, Dr. Beena Cunha Primary Care Unav ailable Stevens, Dr. Oswald Referring Unavailable Kelly Jane Unavailable MARGRET STEVENS Attending BEENA Sheldon Primary Care Unavailable Beena Benítez MD Primary Care Provider [phone] Allergies Allergy Classification Reported Allergen(s) Allergy Type Date of Onset Reaction(s) Facility (1 source) No Known Medication Allergies; Translations: [No Known Medication Allergies] Propensity to adverse reactions (disorder) [facility] Repository (10 sources) dapagliflozin; Translations: [Farxiga TABS] Drug Allergy [place] [id number] DO Work Phone: Medications Current Medications Medication [...] day(s), # 90 tab(s), Refills(s) 3, Pharmacy: [facility]/pharmacy #[id number], 178, cm, 01/23/22 14:05:00 EDT, Height/Length Dosing, 170, kg, 01/23/22 14:05:00 EDT, Weight Dosing Start Date: 01/24/22 Stop Date: 01/19/23 Status: Ordered Start: 01-23-2022 take 4 tablets by mouth once P lavix 75 mg Tab 300 mg = 4 tab(s), Oral, Once, 300 mg Loading Dose, # 4 tab(s), Refills(s) 0, Pharmacy: [facility]/pharmacy #[id number], 178, cm, 01/23/22 14:05:00 EDT, Height/Length [...] Refills(s) 0 Start Date: 03/06/20 Status: Ordered take 1 tablet by inocencio th once daily as needed colchicine 0.6 mg tablet Take 1 tablet ( 0.6 mg) by mouth once daily. As needed 0 Active Colchicine 0.6 M G Oral Capsule [...] DULoxetine 60 mg delayed release oral capsule (7 sources) Serotonin and Norepinephrine Reuptake Inhibitor Start: 11-05-2022 take 1 capsule by mouth once daily DULoxetine (Cymbalta) [address] capsule Take 1 capsule (60 mg) by mouth once daily. 0 03/01/2023 Active losartan potassium 50 mg oral tablet (20 sources) Angiotensin 2 Receptor Ashely Start: 10-09-2021 End: 10-04-2022 take 1 tablet by mouth twice daily losartan 50 mg Tab 50 mg = 1 tab(s), Oral, BID, X 90 day(s), # 180 tab(s), Refills(s) 3, Pharmacy: [facility]/pharmacy #[id number], 178, cm, 06/20/21 9:09:00 EST, Height/Length [...] tablet by mouth once dudley y metFORMIN XR (Glucophage-XR) 750 mg 24 hr tablet Take 1 tablet (750 mg) by mouth once daily. 0 Active metFORMIN HCl Ac tive take 1 tablet by mouth twice alda ly metFORMIN 750 mg oral tablet, extended release ; 1 tab(s) orally 2 times a day Quantity: 0 Refills: 0 Ordered: 07-Oct-2020 Andreia Petersen Generic Substitution Allowed modafinil 100 mg oral tablet (5 sources) Sympathomimetic-like Agent Start: 01-26-2023 take 1 tablet by mouth once daily modafinil (Provigil) 100 mg tablet Take 1 tablet (100 mg) by mouth once daily. 0 01/26/2023 Active take 1 tablet by inocencio th every twenty-four hours Modafinil 200 MG 1 tablet once a day Active Multivitamin preparation (9 sources) Multivitamin Act trish take 1 tablet by mouth once dudley y Multiple Vitamins oral tablet ; 1 tab(s) orally once a day Quantity: 0 Refills: 0 Ordered: 07-Oct-2020 Andreia Petersen Generic Substitution Allowed multivitamin tablet (1 source) take 1 tablet by mouth once daily multivitamin tablet Take 1 tablet by mouth once daily. 0 Active Multivitamin, Therapeutic w/ Minerals (7 sources) Start: 06-21-19 take 1 tablet by mouth once daily Multivitamin, Therapeutic w/ Minerals 1 tab(s), Oral, Daily, Prophylaxis Start Date: 06/21/20 Status: Ordered naproxen 500 mg oral tablet (7 sources) Nonsteroidal Anti-inflammatory Drug Start: 06-08-19 21 take 1 tablet by mouth every twelve hours at mealtime as needed Naproxen 500 MG 1 tablet with food or milk as needed Orally every 12 hrs for 10 days May, Active Start: 06-08-2020 Naproxen 500 M G Oral Tablet Quantity: 20 Refills: 0 Ordered: 08-Jun-2020 DO Start : 08-Jun-2020 Complete omeprazole 20 mg delayed release oral capsule (20 sources) Proton Pump Inhibitor Start: 12-08-2021 take 1 capsule by mouth once daily omeprazole (PriLOSEC) [address] capsule Take 1 capsule (20 mg) by mouth once daily. 0 03/21/2023 Active predniSONE 20 mg oral tablet (2 sources) Start: 05-07-2023 take 1 tablet by mouth every twelve hours predniSONE 20 MG 1 tablet Orally bid for 5 day(s) Apr, Active rivaroxaban 20 mg oral tablet (20 sources) Factor Xa Inhibitor Start: 05-15-2023 Xarelto 20 mg tablet Indications: Unspecified atrial fibrillation (CMS/HCC) TAKE 1 TABLET DAILY WITH BIGGEST MEAL OF THE DAY. 30 tablet 3 05/15/2023 Active Start: 04-23-2021 take 1 tablet by inocencio th once daily at mealtime Xarelto 20 MG Oral Tablet TAKE 1 TABLET DAILY WITH BIGGEST MEAL OF THE DAY. Quantity: 90 Refills: 0 Ordered: 03-Feb-2023 Margret Stevens MD Start : 23-Apr-2021 Active rosuvastatin calcium 20 mg oral tablet (16 sources) HMG-CoA Reductase Inhibitor Start: 08-17-2022 take 1 tablet by mouth once daily rosuvastatin (Crestor) 20 mg tablet Take 1 tablet (20 mg) by mouth once daily. 0 03/08/2023 Active sacubitril 97 mg / valsartan 103 mg oral tablet (20 sources) Angiotensin 2 Receptor Ashely Start: 07-19-2023 take 1 tablet by mouth twice daily sacubitriL-valsartan (Entresto) 97-103 mg tablet Indications: Ischemic cardiomyopathy , Chronic systolic congestive heart failure, NYHA class 2 (CMS/HCC) Take 1 tablet by mouth 2 times a day. 180 tablet 3 07/19/2023 Active Start: 11-23-2022 End: 07-19-2023 take 1 tablet by mouth twice daily Entresto 49-51 mg tablet Take 1 tablet by mouth 2 times a day. 0 02/20/2023 07/19/2023 Discontinued (Therapy completed) Start: 07-06-2022 take 1 tablet by inocencio th twice daily Entresto 24-26 MG Oral Tablet TAKE 1 TABLET BY MOUTH TWICE A DAY Quantity: 180 Refills: 0 Ordered: 17-Aug-2022 Margret Stevens MD Start : 06-Jul-2022 Active stop losartan/ new start sotalol hydrochloride 80 mg oral tablet (20 sources) Antiarrhythmic Start: 10-05-2022 take 1 tablet by mouth twice daily sotalol (Betapace) 80 mg tablet Take 1 tablet (80 mg) by mouth 2 times a day. 0 03/30/2023 Active Start: 07-07-2021 End: 05-29-2023 take 1 [...] reason (Rx) Start Date: 11/05/20 Status: Ordered 24 hr venlafaxine 37.5 mg extended release [...] DAILY. Quantity: 90 Refills: 3 Ordered: 17-Aug-2022 Margret Stevens MD Start : 17-Aug-2022 Active Start: 01-21-2022 aspirin 81 mg oral capsule Refills(s) 0 Start Date: 01/21/22 Status: Ordered aspirin 81 mg ch ewable tablet Chew 1 tablet (81 mg) once daily. 0 Active Aspirin 81 MG TA BS TAKE 1 TABLET DAILY. Quantity: 0 Refills: 0 Ordered: 31-Dec-2021 DO Active atorvastatin 40 mg oral tablet (20 sources) HMG-CoA Reductase Inhibitor Start: 09-22-2022 take 1 tablet by mouth at bedtime Atorvastatin Calcium 40 MG Oral Tablet TAKE 1 TABLET AT BEDTIME. Quantity: 90 Refills: 3 Ordered: 22-Sep-2022 Margret Stevens MD Start : 22-Sep-2022 Active Start: 05-17-2020 take 2 tablets by mo [facility] at bedtime atorvastatin 40 mg Tab 80 [...] 3.125 mg oral tablet (8 sources) alpha-Adrenergic Ashely, beta-Adrenergic Ashely Start: 07-19-2020 Carvedilol 3.125 MG Oral Tablet Quantity: 180 Refills: 0 Ordered: 19-Jul-2020 DO Start : 19-Jul-2020 Complete Carvedilol Activ e take 1 tablet by mouth twice alda ly carvedilol 3.125 mg oral tablet ; 1 tab(s) orally 2 times a day Quantity: 0 Refills: 0 Ordered: 07-Oct-2020 Andreia Petersen Status: Discontinued Generic Substitution Allowed dapagliflozin 10 mg oral tablet (4 sources) Sodium-Glucose Cotransporter 2 Inhibitor Start: 08-17-2022 take 1 tablet by mouth once daily in the morning Farxiga 10 MG Oral Tablet TAKE 1 TABLET BY MOUTH EVERY MORNING Quantity: 90 Refills: 0 Ordered: 17-Aug-2022 Margret Stevens MD Start : 17-Aug-2022 Active furosemide 20 mg oral tablet (9 sources) Loop Diuretic Start: 07-06-2022 take 0.5 tablet by mouth once daily Furosemide 20 MG Oral Tablet TAKE 0.5 TABLET Daily Quantity: 45 Refills: 3 Ordered: 06-Jul-2022 Margret Stevens MD Start : 06-Jul-2022 Active dose decreased Start: 07-01-2021 End: 04-09-2023 take 1 tablet by mouth once daily furosemide 20 mg Tab 20 mg = 1 tab(s), Oral, Daily, X 90 day(s), # 90 tab(s), Refills(s) 3, Pharmacy: [facility]/pharmacy #[id number], 179, cm, 03/09/22 11:22:00 EDT, Height/Length [...] Start: 09-Oct-2020 End: 06-Apr-2021 Generic Substitution Allowed take 1 tablet by inocencio th once daily magnesium oxide (Mag-Ox) 400 mg (241.3 mg magnesium) tablet Take 1 tablet (400 mg) by mouth once daily. 0 Active Multi Vitamin Oral Tablet (20 sources) take 1 tablet by mouth once daily Multi Vitamin Oral Tablet TAKE 1 TABLET DAILY. Quantity: 0 Refills: 0 Ordered: 14-Apr-2021 DO Active sulfamethoxazole 800 mg / trimethoprim 160 mg oral tablet (2 sources) Dihydrofolate Reductase Inhibitor Antibacterial, Sulfonamide Antimicrobial Start: 04-08-20 21 Sulfamethoxazole-T rimethoprim 800-160 MG Oral Tablet Quantity: 14 Refills: 0 Ordered: 08-Apr-2021 DO Start : 08-Apr-2021 Complete triamcinolone acetonide 40 mg/ml injectable suspension (10 sources) Corticosteroid Start: 05-07-20 Kenalog-40 Apr, 40 mg Start: 10-25-2018 KENALOG - 10 m g September, 60 mg Problems Active Problems Problem Classification Problem Date Documented Date Episodic/Chronic Administrative/social admission (17 sources) Follow-up status; Translations: [Other specified counseling] Episodic Anxiety disorders (7 sources) Anxiety 06-21-2020 Chronic Blindness and vision defects (16 sources) Visual impairment; Translations: [Unqualified visual loss, 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 Cardiac dysrhythmias (20 sources) Persistent atrial fibrillation; Translations: [Atrial fibrillation] Onset: 10-27-2022 2020 Chronic Coagulation and hemorrhagic disorders (4 sources) Other thrombophilia; Translations: [Secondary hypercoagulable state] Onset: 07-19-2023 Chronic Conduction disorders (10 sources) Chronotropic incompetence; Translations: [Other specified conduction disorders] Chronic Congestive heart failure; nonhypertensive (20 sources) Congestive heart failure stage C; Translations: [Congestive heart failure, unspecified] Onset: 10-28-2022 Chronic Coronary atherosclerosis and other heart disease (20 sources) Coronary arteriosclerosis; Translations: [Coronary atherosclerosis of unspecified type of vessel, [place] or graft] Onset: 09-10-2022 Chronic Coronary atherosclerosis and other heart disease (16 sources) Stented coronary artery; Translations: [Percutaneous transluminal coronary angioplasty status] Episodic Diabetes mellitus with complications (14 sources) Type 2 diabetes mellitus; Translations: [Type 2 diabetes mellitus with hyperglycemia] Onset: 06-15-2022 Chronic Diabetes mellitus without complication (17 sources) Diabetes mellitus; Translations: [Diabetes mellitus without mention of complication, type II or unspecified type, not stated as uncontrolled] Onset: 10-28-2022 Chronic Diabetes mellitus without complication (16 sources) Prediabetes; Translations: [Hyperglycemia] Onset: 10-28-2022 06-21-2020 Episodic Disorders of lipid metabolism (20 sources) Hypercholesterolemia; Translations: [Hyperlipidemia] Onset: 10-28-2022 06-21-2020 Chronic Esophageal disorders (7 sources) Gastroesophageal reflux disease 04-09-2016 Chronic Essential hypertension (18 sources) Hypertensive disorder; Translations: [Essential hypertension] Onset: 06-20-2022 04-18-2020 Chronic Fracture of upper limb (7 [...] (current) use of anticoagulants] Episodic Other aftercare (12 sources) Treatment changed; Translations: [Long-term (current) use of other medications] Onset: 07-19-2023 07-19-2023 Episodic Other aftercare (3 sources) Other salvage determiner (current) drug therapy; Translations: [OTH DRILL OPERATOR AUTOMATIC CURRENT DRUG THERAPY] Onset: 10-28-2022 Episodic Other aftercare (1 source) ocean transportation intermediary (current) use of anticoagulants; Translations: [DRILL OPERATOR AUTOMATIC CURRNT USE ANTICOAGULANTS] Onset: 10-28-2022 Episodic Other aftercare (2 sources) Taking high risk medication; Translations: [Other mcc (current) drug therapy] Onset: 07-19-2023 07-19-2023 Episodic Other connective tissue disease (10 sources) Muscle pain; Translations: [Myalgia and myositis, unspecified] Episodic Other infections; including parasitic (14 sources) Personal history of other infectious and parasitic diseases; Translations: [Personal history of COVID-19] Episodic Other lower respiratory disease (1 source) Shortness of breath; Translations: [Shortness of breath] Onset: 09-10-2022 Episodic Other nutritional; endocrine; and metabolic disorders (4 sources) Morbid obesity; Translations: [Morbid obesity] Chronic Other nutritional; endocrine; and metabolic disorders (20 sources) Body mass index 40+ - severely obese; Translations: [Morbid obesity] Chronic Other nutritional; endocrine; and metabolic disorders (1 source) Body mass index (BMI) 50.0-59.9, adult Chronic Daphne-; endo-; and myocarditis; cardiomyopathy (except that caused by tuberculosis or sexually transmitted disease) (20 sources) Cardiomyopathy; Translations: [Other primary cardiomyopathies] Onset: 07-20-2022 Chronic Residual codes; unclassified (8 sources) Sleep [...] on above: DRUG LOADING WITH SO TALOL Past or Other Problems Problem Classification Problem Date Documented Date Episodic/Chronic Other lower respiratory disease (20 sources) Dyspnea; Translations: [Shortness of breath] Onset: 05-05-2023 05-05-2023 Episodic Other lower respiratory disease (4 sources) Solitary pulmonary nodule; Translations: [SOLITARY PULMONARY NODULE] Onset: 01-19-2022 Episodic Other screening for suspected conditions (not mental disorders or infectious disease) (20 sources) Electrocardiogram abnormal; Translations: [Nonspecific abnormal electrocardiogram [ECG] [EKG]] Onset: 09-10-2022 05-05-2023 Episodic Residual codes; unclassified (20 sources) H/O: obesity; Translations: [Personal history of other specified diseases] Resolved: 12-31-2021 Episodic Unclassified (16 sources) Never smoked tobacco; Translations: [Never smoker] Unclassified (16 sources) Patient status finding; Translations: [Patient new to provider] Unclassified (1 source) Onset: 07-19-2023 07-19-2023 Viral infection (8 sources) Disease caused by 2019-nCoV; Translations: [Other specified viral infection] Onset: 05-05-2023 05-05-2023 Episodic Results Test Name Value Interpretation Reference Range Facility ECG 12 Leadon 08-16-2023 [facility] Work Phone: Office Visit (Cardiology)on 02-15-2023 Follow-up visit Diagnoses/Problems [...] Metabolic Panel; Status:Active - Retrospective Authorization; Requested for:01Jul2023; Abnormal EKG, Fatigue, High risk medication use, Hyperlipidemia Complete Blood Count; Status:Active - Retrospective Authorization; Requested for:01Jul2023; Atrial fibrillation IO EKG Electrocardiogram- 12 Lead; Status:Complete; Done: [id number] Morbid obesity with BMI of 50.0-59.9, adult Healthy Weight Tips; Status:Complete - Retrospective Authorization; Done: [id number] Some eating tips that can help you lose weight.; Status:Complete - Retrospective Authorization; Done: [id number] SocHx: Never smoker Tobacco Use Screening; Status:Complete; Done: [id number] Patient Instructions Please bring all medicines, vitamins, [...] surgical options. He and his have joined weight [employer]. An EKG was done today, reviewed,No recent laboratory data to review.Reviewed Holter monitor results. Reviewed treadmill stress test results History so far : 1. Persistent atrial fibrillation controlled on sotalol and anticoagulated with Eliquis. 2. Sinus node dysfunction. Patient had profound bradycardia on combination of beta-ashely and sotalol, currently remains on sotalol. 3. [...] per 2D echocardiogram dated June 07, 2020, [place] [employer] class II, stage B heart failure. 10. Gouty arthritis. Patient remains on allopurinol, no recent recurrence. 11. Abnormal perfusion imaging showing an LV ejection fraction in the 20s, with subsequent cardiac catheterization showing LV ejection fraction of 45%, this was done at [facility] and that particular Catheterization did not show [...] This is consistent with chronotropic blunting. 13. [id number] score is 6 14.48-hour Holter monitor-minimum heart rate 46 bpm average heart rate 66 bpm maximum heart rate 99 bpm ventricular patience (more content not included)... Normal [facility] Tobacco Screening.on 023 Fall risk assessment b) One or more fall s in the last year [facility] [address] DO Work Phone: Tobacco use status [facility] b) No [facility] [address] DO Work Phone: Cardiovasc Arrhythmia Result son 11-30-2022 Cardiovasc Arrhythmia Results Reason For Visit Reason for Visit: Holter Monitor: LORENA is here for the application of a 48 hour Holter monitor. Ordering Physician: Dr. Margret Stevens MD Diagnosis: a-fib NO equipment agreement signed. LORENA understands monitor is to be returned on: 12/02/2022 Monitor number [id number] applied. Holter monitor returned and downloaded. Holter monitor returned and downloaded. 12/03/2022 Holter monitor printed and emailed to [facility] and placed on Dr. Margret Stevens MD desk to dictate. Procedure 48-hour [...] Atrial fibrillation (427.31) (I48.91) Future Appointments Date/TimeProvider[facility]i [facility] 02/15/2023 12:30 PMMargret Stevens, [id number] [facility] [address] DO Signatures Electronically signed by : Margret Stevens MD; Feb 15 2023 2:58PM EST (Author) Normal [facility] Office Visit (Cardiology)on 11-23-2022 Follow-up visit Diagnoses/Problems [...] Metabolic Panel; Status:Active - Retrospective Authorization; Requested for:[id number]; Morbid obesity with BMI of 50.0-59.9, adult [...] EKG shows sinus rhythm at 82 bpm ND interval 158 ms QRS duration 102 ms [...] Patient had profound bradycardia on combination of beta-ashely and sotalol, currently remains on sotalol. 3. [...] per 2D echocardiogram dated June 07, 2020, [place] [employer] class II, stage B heart failure. 10. Gouty arthritis. Patient remains on allopurinol, no recent recurrence. 11. Abnormal perfusion imaging showing an LV ejection fraction in the 20s, with subsequent cardiac catheterization showing LV ejection fraction of 45%, this was done at [facility] and that particular Catheterization did not show [...] This is consistent with chronotropic blunting. 13. [id number] score is 6 Laboratory data from September 2022 s (more content not included)... Normal [facility] Tobacco Screening.on 023 Adult depression screening assessment No [facility] 250 DO Work Phone: Fall risk assessment a) No falls within the last year [facility] 250 DO Work Phone: Tobacco use status [facility] b) No [facility] 250 DO Work Phone: BNPon 10-27-2022 Natriuretic peptide B (Bld) [Mass/Vol] 80.0 pg/mL Normal <=900.0 [facility] Comment on above: Performed By: #### B LCSW, CK, TSH #### [facility] [address] [place] [address] [address] Maria T Canela CPKon 10-27-2022 CK [Catalytic activity/Vol] 302 U/L Normal 39-308 [facility] Comment on above: Performed By: #### B LCSW, CK, TSH #### [facility] [address] [place] [address] [address] Maria T Canela FREE T4on 10-27-2022 Free T4 [Mass/Vol] 0.87 ng/dL Normal 0.76-1.46 [facility] Comment on above: Performed By: #### F T4 ####[facility] [id number] [place] [address]Dr. Maria T Canela GLYCOHEMOGLOBIN A1Con 2022 ADA RECOMMENDATION SEE BELOW Normal [facility] Comment on above: Result Comment: ADA RECOMMENDED LIMIT 4.0 - 6.0 ADA THERAPEUTIC TARGET < 7.0 ACTION SUGGESTED > 7.0 Performed By: #### A 1C #### [facility] [address] [place] [address] [address] Maria T Canela Glucose [Mass/Vol] 169 mg/dL Normal [facility] Comment on above: Performed By: #### A 1C #### [facility] [address] [place] [address] [address] Maria T Canela HbA1c (Bld) [Mass fraction] 7.5 % Critically high 4.5-6.2 [facility] Comment on above: Performed By: #### A 1C #### [facility] [address] [place], [place] [address] Dr. Maria T Canela SED RATE WESTERGRENon 2022 SED RATE 15 mm/hr Normal <=20 [facility] Comment on above: Performed By: #### S EDR ####[facility] [id number] [place], [place] [address]LkDr. Maria T Canela TSHon 10-27-2022 TSH 1.477 uIU/mL Normal 0.358-3.740 [facility] Comment on above: Performed By: #### B LCSW, CK, TSH #### [facility] [address] [place], [place] [address] Dr. Maria T Canela Office Visit (Cardiology)on [...] Patient had profound bradycardia on combination of beta-ashely and sotalol, currently remains on sotalol. 3. [...] per 2D echocardiogram dated June 07, 2020, [place] [employer] class II, stage B heart failure. 10. Gouty arthritis. Patient remains on allopurinol, no recent recurrence. 11. Abnormal perfusion imaging showing an LV ejection fraction in the 20s, with subsequent cardiac catheterization showing LV ejection fraction of 45%, this was done at [facility] and that particular Catheterization did not show any flow-limiting disease. The perfusion study was done in December 2021, cardiac catheterization from January 2022 showed nonobstructive coronary artery disease of the left system widely patent RCA stent LVEF 45% moderately dilated left ventricular chamber dimension mildly elevated L (more content not included)... Normal [facility] Tobacco Screening.on 023 Tobacco use status [facility] b) No [facility] [address] DO Work Phone: Heart and Vascular Office/ inic Noteon 09-26-2022 Heart and Vascular Office/Clinic [...] in office. He had echocardiogram performed at [facility], which was normal. He was ordered [...] protocol. [1] patient was then referred to [place] and was placed on sotalol followed by [...] progressive dry (more content not included)... Normal [facility] Comment on above: Result Comment: Elec tronically Signed By: Camilo STARK, Kushal Galarza Other Comment: Appar ent pt no show Cardiac Stress Teston 2022 Cardiac Stress Test [address], [address] [facility] [facility], [place] [address] Exercise Stress Test Patient Name: LORENA CAMPOS Ordering Physician: [id number] Margret Stevens Study Date: 09/10/2022 Reading Physician: [id number] Kim Mckeon MD, [facility] MRN/PID: [id number] Supervising Physician: [id number] Kim Mckeon MD, [facility] Accession/Order#: [id number] Referring Physician: MARGRET STEVENS Date of : 1955 PCP: Beena Benítez Gender: M Fellow: Height: 177.80 cm Nurse: Tigre De La Rosa RN Weight: 168.74 kg Digital Design Engineer: ROB BSA: 2.72 m2 Technologist: BMI: 53.38 kg/m2 Additional Staff: Age: 66 years cc report to: Patient Location: cc report to: [id number] Margretmelo Stevens Study Type: Cardiac Stress Test Diagnosis/ICD: R94.31-Abnormal electrocardiogram [ECG] [EKG]; I25.10-Atherosclerotic heart disease; I42.9-Cardiomyopathy, unspecified; I50.9-Heart failure, unspecified; R06.02-Shortness of breath Indication: Cardiomyopathy Procedure/CPT: Stress Test Interpretation-[id number]; Stress Test Supervision-[id number] Falls Risk: Low: Patient has low risk [...] The adequate level of stress was achieved. [id number] Kim Mckeon MD, FACC Electronically signed on 09/10/2022 at 6:25:[address] [facility] Cardiac Stress Test MP-No rth [place] [facility] y 250 DO Work Phone: Office Visit [...] History of Present Illness Patient with atherosclerotic [place] vessel coronary artery disease, multiple cardiac risk [...] Patient had profound bradycardia on combination of beta-ashely and sotalol, currently remains on sotalol. 3. [...] per 2D echocardiogram dated June 07, 2020, [place] Heart Association class II, stage B heart failure. 10. Gouty arthritis. Patient remains on allopurinol, no recent recurrence. 11. Abnormal perfusion imaging showing an LV ejection fraction in the 20s, with subsequent cardiac catheterization showing LV ejection fraction of 45%, this was done at [facility] and that particular Catheterization did not show any flow-limiting disease. The perfusion study was done in December 2021, cardiac catheterization from January 2022 showed nonobstructive coronary a (more content not included)... Normal Noom Tobacco Screening.on 023 Fall risk assessment c) Not medically indicated -[facility] [employer] y 250 DO Work Phone: Tobacco use status CPHS b) No -[facility] y 250 DO Work Phone: BNPon 07-20-2022 Natriuretic peptide B (Bld) [Mass/Vol] 72.0 pg/mL Normal <=900.0 [facility] Comment on above: Performed By: #### B MP, BNP ####[facility] [address] [place] [address]Dr. Maria T Canela PROF CHEM 8 (BAS METB)on Anion gap [Moles/Vol] 11.8 mmol/L Normal [facility] Comment on above: Performed By: #### B MP, BNP ####[facility] [address] [place] [address]Dr. Maria T Canela Calcium [Mass/Vol] 9.2 mg/dL Normal 8.5-10.1 [facility] Comment on above: Performed By: #### B MP, BNP ####[facility] [address] [place] [address]Dr. Maria T Canela Chloride [Moles/Vol] 101 mmol/L Normal 98-107 [facility] Comment on above: Performed By: #### B MP, BNP ####[facility] [address] [place] [address]Dr. Maria T Canela CO2 [Moles/Vol] 28.1 mmol/L Normal 21.0-32.0 [facility] Comment on above: Performed By: #### B MP, BNP ####[facility] [address] [place] [address]Dr. Maria T Canela Creatinine [Mass/Vol] 0.82 mg/dL Normal 0.70-1.30 [facility] Comment on above: Performed By: #### B MP, BNP ####[facility] [address] [place] [address]Dr. Kettysahra Hilton EGFR-AF IRAQI >60 Normal >=60 [facility] Comment on above: Performed By: #### B MP, BNP ####[facility] [address] [place], [place] [address]Dr. Kettysahra Hilton EGFR-NON AF IRAQI >60 Normal >=60 [facility] Comment on above: Performed By: #### B MP, BNP ####[facility] [address] [place], [place] [address]Dr. Maria T Canela Glucose [Mass/Vol] 190 mg/dL Critically high 74-106 [facility] Comment on above: Performed By: #### B MP, BNP ####[facility] [address] [place], [place] [address]Dr. Maria T Canela Potassium [Moles/Vol] 4.9 mmol/L Normal 3.5-5.1 [facility] Comment on above: Performed By: #### B MP, BNP ####[facility] [address] [place] [address]Dr. Kettysahra Hilton Sodium [Moles/Vol] 136 mmol/L Normal 136-145 [facility] Comment on above: Performed By: #### B MP, BNP ####[facility] [address] [place] [address]Dr. Maria T Canela Urea nitrogen [Mass/Vol] 13.0 mg/dL Normal 7.0-18.0 [facility] Comment on above: Performed By: #### B MP, BNP ####[facility] [address] [place], [place] [address]QdKami Canela Urea nitrogen/Creatinine [Mass ratio] 15.9 mg/mg Normal [facility] Comment on above: Performed By: #### B MP, BNP ####[facility] [address] [place], [place] [address]MdKami Canela Office Visit (Cardiology)on 07-06-2022 Follow-up visit [...] Metabolic Panel; Status:Active - Retrospective Authorization; Requested for:[id number]; Brain Natriuretic Peptide BNP; Status:Active - Retrospective Authorization; Requested for:[id number]; CHF (NYHA class II, ACC/AHA stage C) [...] is accompanied by his who works at [facility] [employer] in the cafeteria. Prior records were [...] function test, and Lexiscan stress test at [facility]. He states he has absolutely no energy and is easily fatigued, he is short of breath and he has a nonproductive cough. He denies fever or chills. He is accompanied by his who questions whether he may change his cardiology follow-up to [facility] due to proximity to home. Patient wishes to establish care at [facility]. Predominant complaints are unrelenting fatigue, short-term [...] abnormal wit (more content not included)... Normal Noom Tobacco Screening.on 023 Adult depression screening assessment No [facility] y 250 DO Work Phone: Fall risk assessment a) No falls within the last year [facility] y 250 DO Work Phone: Tobacco use status CPHS b) No [facility] y 250 DO Work Phone: CBC AUTO DIFFon 06-15-2022 BASO # 0.1 103/ul Normal 0.0-0.1 [facility] Comment on above: Performed By: #### C BC #### [facility] [address] [place] [address] [address] Maria T Canela Basophils/100 WBC (Bld) 0.7 % Normal 0.2-2.0 [facility] Comment on above: Performed By: #### C BC #### [facility] [address] [place] [address] Dr. Maria T Canela EO # 0.2 103/ul Normal 0.0-0.7 [facility] Comment on above: Performed By: #### C BC #### [facility] [address] [place] [address] Dr. Maria T Canela Eosinophils/100 WBC (Bld) 2.7 % Normal 0.9-7.0 [facility] Comment on above: Performed By: #### C BC #### [facility] [address] [place] [address] Dr. Maria T Canela Erythrocyte distribution width (RBC) [Ratio] 12.7 % Normal 11.0-15.0 [facility] Comment on above: Performed By: #### C BC #### [facility] [address] [place] [address] Dr. Maria T Canela Hematocrit (Bld) [Volume fraction] 39.7 % Critically low 42.0-54.0 [facility] Comment on above: Performed By: #### C BC #### [facility] [address] [place] [address] Dr. Maria T Canela Hemoglobin (Bld) [Mass/Vol] 13.4 g/dL Critically low 14.0-18.0 [facility] Comment on above: Performed By: #### C BC #### [facility] [address] [place] [address] Dr. Maria T Canela IG # 0.01 10e3/ul Normal 0.00-0.03 [facility] Comment on above: Performed By: #### C BC #### [facility] [address] [place] [address] Dr. Maria T Canela IG % 0.1 % Normal 0.0-0.5 [facility] Comment on above: Performed By: #### C BC #### [facility] [address] [place] [address] Dr. Maria T Canela LYMPH # 1.7 103/ul Normal 1.2-3.8 [facility] Comment on above: Performed By: #### C BC #### [facility] [address] [place] [address] Dr. Maria T Canela Lymphocytes/100 WBC (Bld) 25.0 % Normal 20.5-60.0 [facility] Comment on above: Performed By: #### C BC #### [facility] [address] [place] [address] Dr. Maria T Canela MANUAL DIFF REQ NO Normal [facility] Comment on above: Performed By: #### C BC #### [facility] [address] [place] [address] Dr. Maria T Canela MCH (RBC) [Entitic mass] 30.0 pg Normal 25.9-34.0 [facility] Comment on above: Performed By: #### C BC #### [facility] [address] [place] [address] Dr. Maria T Canela MCHC (RBC) [Mass/Vol] 33.8 g/dL Normal 29.9-35.2 [facility] Comment on above: Performed By: #### C BC #### [facility] [address] [place] [address] Dr. Maria T Canela MCV (RBC) [Entitic vol] 89.0 fL Normal 80.0-94.0 [facility] Comment on above: Performed By: #### C BC #### [facility] [address] [place] [address] Dr. Maria T Canela MONO # 0.6 103/ul Normal 0.3-0.8 [facility] Comment on above: Performed By: #### C BC #### [facility] [address] [place] [address] Dr. Maria T Canela Monocytes/100 WBC (Bld) 9.6 % Normal 1.7-12.0 [facility] Comment on above: Performed By: #### C BC #### [facility] [address] [place] [address] Dr. Maria T Canela NEUT # 4.1 103/ul Normal 1.4-6.5 [facility] Comment on above: Performed By: #### C BC #### [facility] [address] [place] [address] [address] Maria T Canela Neutrophils/100 WBC (Bld) 61.9 % Normal 43.0-75.0 [facility] Comment on above: Performed By: #### C BC #### [facility] [address] [place] [address] [address] Maria T Canela Platelet mean volume (Bld) [Entitic vol] 10.6 fL Normal 9.5-13.5 [facility] Comment on above: Performed By: #### C BC #### [facility] [address] [address] [address] Maria T Canela PLT 163 103/ul Normal 150-450 [facility] Comment on above: Performed By: #### C BC #### [facility] [address] [place] [address] [address] Maria T Canela RBC 4.46 106/ul Critically low 4.70-6.10 [facility] Comment on above: Performed By: #### C BC #### [facility] [address] [place] [address] [address] Maria T Canela WBC 6.7 103/ul Normal 4.0-11.0 [facility] Comment on above: Performed By: #### C BC #### [facility] [address] [place] [address] [address] Maria T Canela GLYCOHEMOGLOBIN A1Con 2022 ADA RECOMMENDATION SEE BELOW Normal [facility] Comment on above: Result Comment: ADA RECOMMENDED LIMIT 4.0 - 6.0 ADA THERAPEUTIC TARGET < 7.0 ACTION SUGGESTED > 7.0 Performed By: #### A 1C #### [facility] [address] [place] [address] [address] Maria T Canela Glucose [Mass/Vol] 223 mg/dL Normal [facility] Comment on above: Performed By: #### A 1C #### [facility] [address] [place] [address] [address] Maria T Canela HbA1c (Bld) [Mass fraction] 9.4 % Critically high 4.5-6.2 [facility] Comment on above: Performed By: #### A 1C #### [facility] [address] [place] [address] [address] Maria T Canela MICROALBUMIN, RAND URon 05-31 mALB <1.3 Normal <=30.0 [facility] Comment on above: Performed By: #### M ALBR #### [facility] [address] [place] [address] [address] Maria T Canela PROF 14(COMP METB)on 023 Albumin [Mass/Vol] 3.9 g/dL Normal 3.4-5.0 [facility] Comment on above: Performed By: #### C MP #### [facility] [address] [place] [address] Dr. Maria T Canela Albumin/Globulin [Mass ratio] 1.2 {ratio} Normal [facility] Comment on above: Performed By: #### C MP #### [facility] [address] [place] [address] [address] Maria T Canela ALP [Catalytic activity/Vol] 81 U/L Normal 46-116 [facility] Comment on above: Performed By: #### C MP #### [facility] [address] [place] [address] Dr. Maria T Canela ALT [Catalytic activity/Vol] 65 U/L Critically high 16-63 [facility] Comment on above: Performed By: #### C MP #### [facility] [address] [place] [address] [address] Maria T Canela Anion gap [Moles/Vol] 12.2 mmol/L Normal [facility] Comment on above: Performed By: #### C MP #### [facility] [address] [place] [address] [address] Maria T Canela AST [Catalytic activity/Vol] 47 U/L Critically high 15-37 [facility] Comment on above: Performed By: #### C MP #### [facility] [address] [place] [address] Dr. Maria T Canela Bilirubin [Mass/Vol] 0.5 mg/dL Normal 0.2-1.0 [facility] Comment on above: Performed By: #### C MP #### [facility] [address] [place] [address] [address] Maria T Canela Calcium [Mass/Vol] 9.1 mg/dL Normal 8.5-10.1 [facility] Comment on above: Performed By: #### C MP #### [facility] [address] [place] [address] [address] Maria T Canela Chloride [Moles/Vol] 98 mmol/L Normal 98-107 [facility] Comment on above: Performed By: #### C MP #### [facility] [address] [place] [address] [address] Maria T Canela CO2 [Moles/Vol] 27.3 mmol/L Normal 21.0-32.0 [facility] Comment on above: Performed By: #### C MP #### [facility] [address] [place] [address] [address] Maria T Canela Creatinine [Mass/Vol] 0.80 mg/dL Normal 0.70-1.30 [facility] Comment on above: Performed By: #### C MP #### [facility] [address] [place] [address] [address] Maria T Canela EGFR-AF IRAQI >60 Normal >=60 [facility] Comment on above: Performed By: #### C MP #### [facility] [address] [place] [address] [address] Maria T Canela EGFR-NON AF IRAQI >60 Normal >=60 [facility] Comment on above: Performed By: #### C MP #### [facility] [address] [place] [address] [address] Maria T Canela Globulin (S) [Mass/Vol] 3.3 g/dL Normal [facility] Comment on above: Performed By: #### C MP #### [facility] [address] [place] [address] [address] Maria T Canela Glucose [Mass/Vol] 291 mg/dL Critically high 74-106 [facility] Comment on above: Performed By: #### C MP #### [facility] [address] [place], [place] [address] Dr. Maria T Canela Potassium [Moles/Vol] 4.5 mmol/L Normal 3.5-5.1 [facility] Comment on above: Performed By: #### C MP #### [facility] [address] [place], [place] [address] Dr. Maria T Canela Protein [Mass/Vol] 7.2 g/dL Normal 6.4-8.2 [facility] Comment on above: Performed By: #### C MP #### [facility] [address] [place], [place] [address] Dr. Maria T Canela Sodium [Moles/Vol] 133 mmol/L Critically low 136-145 [facility] Comment on above: Performed By: #### C MP #### [facility] [address] [place], [place] [address] Dr. Maria T Canela Urea nitrogen [Mass/Vol] 14.0 mg/dL Normal 7.0-18.0 [facility] Comment on above: Performed By: #### C MP #### [facility] [address] [place], [place] [address] Dr. Maria T Canela Urea nitrogen/Creatinine [Mass ratio] 17.5 mg/mg Normal [facility] Comment on above: Performed By: #### C MP #### [facility] [address] [place], [place] [address] Dr. Maria T Canela Coding Summary.on 03-18-2022 Coding Summary. CD:[id number] Gh 0bWw+PGhlYWQ+ZM5ZKYMcX 69zvNGkcU2DG9lVUI9JAQC XLMHEXT5FAC3agAF3RXraV 2VybiAv SlrltURhBM98DFy3BQX0sN jjOFrasY6dlVTaV7m9QeWd HM72rD84NNwuEGYaQcV4Kf ZpbjsgbWFy L9qkMcHhcFXbJjj+PHRhYm xlIHdpZHRoPScxMDAlJyBz bNppDD8qIo4rKYUiJIMboB xhcHNlOiBj b8ytPOJhSRegPD2fkQxlC0 IanWV1NNUps1k0An63nEO+ QJGvSRQ2yTcvDXdpr444Ak Jnt7jtAPA3 sGYwJKqbGVT5J73of6O3EI UtNFMoJPI3oEU5gE5hjXli rqqmO4MdcWXuGxZ6GWB0yA BgaI8bpXal pfrdmV6fIot+D46HMJ3OAH AWVM3YHfi5Y0OsNujdiHP+ KH81WWHgVW05oLCxjQWlu0 ilgLu8GdIx CBEpZMB4qRhzBAydi5QqIC IeF37kqINzz4F7DZKphKks bFPvGqUncSE1eM9oRTyzbv kwg7weetnj Noeiw0hquf37zP91O81lLL koTFKwQGK3RDJjYMFxgPxd xc1ciF8tMf1+MVans8snr0 tlnPs8RxEz DREjclAlvBrjVGM6s5OxWy 38N8NapImuh6BpJze4fr31 vJZix4E5hHX9KUpoLFNjuG 0oXPpvBjR7 KEQbMvUirS75tTEbKYdwZj 7eyKoxwIrqTQ8mVVOvlenx NMMvuH2qVXVnoDZmgGdbNS 4wNTBpbjtm f504ZwXwMQV9DHXqaMKgC9 ZsxF3fDeTyWQGlZVOlI9Qk sLNbDJsbE654VFllVrO4UQ WpzaAjP5Oe GIRwwOdqNlJ4z5W5It1Xd3 VjqxduVBH0OGgtYWVkZzN6 UgFdPhO0V5KxNih7RXSzjC sbZC3bT2Jo UXZjfdzigkegmUN3AUZyFQ OhsI30hPHxVRyvIm1vi9J1 a211UJGoNPZmdG48Du9sgO ogMTBwdCBU vP2zrqtcz4yebkpkEqIxBS BfAAr2ATh9NGZkwYtvIeEb HOF3ZaF5FQW7wBEhbY0zdF cbdgqdmK9d Oyc+S90toQ6hXMA1GGQ8zm usHJDmrdPtYS37HY73O2Io PjwvdGFibGU+PGRpdiBzdH gwWT1sNoCm p4eah0ByVBieP4ByEGLpXQ kvBom2NSNpMOD9pXG7nF9r BQHlCOnul2H2uGO2A1Dfoo Ggqe6jp6ie JDZcABymR77jpMYls3Q9VD OgiIQ9OPApaCkyChCljK19 Oyc+PYOswUnlx4FwDeynh4 tch4dycZd6 QwMrVNFqhfRsaAyoPZJ9t9 NkPp43O24hRSiiAIUiMHQk NMRaFGUymKxctp7fvT3iPm 8+PGNvbCB3 jFZ2uA0nUDKnRmI6SRszP1 15NiIikWGfFjuxl1njt9sq nSv8CpViRMLwieWosQhuRU G2w5YyRd06 K48jLJzlARPiLVTlEDLeTQ LlzOlfpi4bcV0iDj7+PC9j c8dtmm36oY59cWE+PHRkIH S5bKysJVdn LABmiI4nZWlqFrM7CGPjZk EylK37wMIpYJsyUs7lvQov vNrvHP3lFRVkuwqvw771Mx Orq0svLJBo eIUuNSngUZQ1T58al2L1FF EaCXYkRKT8bOF8xL3cvDfe bjogbGVmdDsgdmVydGljYW giSDjlW842 IHRvcDsnPlBhdGllbnQgTm IbQGi9N1NiNey8UKUolAnn SE2sdQJpJHcuKq8uwRwlsA yiSV6wXCXl ylrqh650YaThw5ctKLXvzH FrMIwoDHQ2R08dy5X5GHVr DPEaPJZ4sSM8xU5dsQjaiy ogbGVmdDsg grNirXecSJpiFJwrD537VO RvcDsnPkJpcnRoIERhdGU6 LD19OH85yIHdr8C9iVW9X4 BhZGRpbmct uthfyDB4OQCyTTWnkB39Ju 8fxWojDx2xDJWgRGX5NPUf xICgG6AheN4bRqEgCZOnBM FsI3DeuOWh DFxeW442MJbuIjC1YECznj MgZ9QoXSLnbLuiEkA8w4Y7 Zy6II1K4GZ64EJ04gXAsb0 K6sNK2V5Ww ZPMwzxvcujctzEV1OFXmHP GavY69Hs1seZiuDi4iGNKa MDZ8FBDsaZRlS3PtpJ0nBr AjMDAwMDAw E9KgeACbJBspY033KXakTw W7DZAtrfXpV8VxWBYjyGfb MyS0c8A5Dl0REKi6YM94DM 15iIJra3I3 hFY8U5IiGNFsuegnuoidpQ D7VMJhYKFymR96Ci4okZxl Bw6nMRAdLVK8LMDzoUFnH1 EdvZ7lWgAa FSWsWEBhI4XbfHYtDOucS8 59PFhwEgQ7IUQrccVyY3Bm RJDowElcCaW4m2O2Bi6KOS XwHZ34XJY4 nBY1CO26LN71M8CmEaornG FibGU+PHRhYmxlIHdpZHRo UPuzHNDfOvEbtGacIO7eZc 9yZGVyLWNv nJkcsQSmVeCjn1uhTAPaGO iuWG1hzBjuA5MmwUV4KDYq p3v3Wi19S70qF6HqyFX+PG BudDS7lHZ2 cY4iQeZcCbY9FVmxR934Nd AxwKVdJvoew6jop9fzuWn7 QdG0SKQzdmAnfWbpEED9m4 GhUx75P20b IHdpZHRoPSIxNSUiIHZhbG penu0iwD7hIc9+PGNvbCB3 hST1mE1nUpVxNaS8NAwxE1 49InRvcCIv Mgfnh0njd0zzaQi3TtInCC PdnyMamKfdTMT8o0AeKw57 H8TlnSttf9QhUag4vn89eA Vvc9X5vQJ0 R5LrSEJwauybsGFpcUrzHL 7hFBDbsmyzLLEalE8mHTMf D2y0PnFoDfK0GAcrT9Pgxq J1BIWstJGa NJrrHED0R01fr8E8EMFkQD KkNNN6oLV1pM7amCswdpof bGVmdDsgdmVydGljYWwtYW glM921POXh vMelZRQhlK9dPLDewUZwtU emSM8iDEOyrmdvOzLFXdLV LixlCLHSRVMKPzYTEA90QO 25cLHkb6O6 lPE5W9SyEQDzkomsvpaefS X4IFJbXRNakR29lYRiDJby Uk3fw7H5n724QXPjZEAjoO 96Nl5ilGbt AMObnURUrD6ktkheb6jkjc efMqAlGIFkDSj5BIi5FSAs dDhqFmUpPXW0UhD9SGN1pV IcvJ5lpPkq lvlyoI3lHle+MDUvMTEvMT q8XJszvMS+ESNfGRZ1lDmz WSbcTCDtjO9sOGIcN3k1Eg ChKcS1IUzw I8UiBRLlpvzzQh45xW2sRf YrDgZ2IGegJ5VvccX0QODa qLUxALtvWVX2U15cq9L3OU MwMDAwMDA7 rWH7rB1dzZuxhkroyDXywV zkwfEtaEqjJAjbLVyqA041 DCFqwSgcHxQ8UQtoHYRhSV 58KX70nHSa l4R6nCX6R1KqLJPxowasuh gefNH6VIXrSMSkyD38wBWd XVtkYp4ei1N3n968MYRuZV YikE51Pz4u gMneNHArgPAEsO5llyoap2 cilpphUcQqWHAxAXe9WZa2 ZEFqjTcmXjHjTTY6EjN9QE O5xZStlQ8n kJdprajybN7tKmy+TWFsZT wvdGQ+KXVsHLX9pAunNVpe IARmuL6vLCZqA5q2SwQeHt T2HYpdM1Dk WGAzvzdeTx68nN9rCkWpIk Q7SCdaW4UvovE2HZUoqAMm GZkzLQA5N05be0P1OWOhMI LzYJD3sKE0 bQ8kiIhsfavggHUtrLfrnw GyoHnxVJfsIRqrG292CMOv mXsiFx72qVKubBvrhhO0I6 RkPjwvdHI+ DI65MZQhSH76bFZnhOAxs5 utoBi5XyLdXZTzDLE5oOnw ACnfm8XaHKYiT37soQAml7 L5LAUzdBry yICpQyNxpDI5tS7wHAplly uwp8mnlxyhFkrls8mluv64 fJ07E72wQEjqOSQqKHIpYN UiIHZhbGln yv1mrP6qKs9+SIXugRE2wF U5gO8dLwLoGpL3YJclY637 HnIhdXCiLjqvt1kmr3haiC w6YsYfNVXy zyMsoQnzLSM3i8UeJj63U2 9sIHdpZHRoPSIyMCUiIHZh mFkfid2krH9lEb9+PC9jb2 dgpd52lX48 dHI+LZIrKFK9jNeoSQhxBX IniY2iIJrgSvC4JNOcPcKn bH82pZUtGFpsDn3biJsztB eaSK4dPFGl gupwk931WjLen9gkZOUtuX UtBTnsEKX6O50xh7P6HEWq JGXkARS8uZU3rM5vvOduwj ogbGVmdDsg vdCdsMnyWUveQDtgK915DD FgvWzdVvGuwNEoK0thekTX YF0oQearfAE+XUErPIF5tY xlPSdwYWRk sW0wRVKzS9w5InOcKgV5LQ myE8VubtI3NNAviNJcWGMk qVSIzV5mzlyvv6mdsppwWl AwMDAwMDt0 GQg7KMBbzLjwKqBeWAF0Ug T0EQT0cFVpeG8xrWwjvunc aI9eTww+RklOOjwvdGQ+PH TcSWM9eBcv ZQnxQHCncA1bICTzM7q9Zx HvKcB1PKtmU1RnadS1ZQCj nSHkJSTbxDTCmA4rqudcs1 xvcjogIzAw BBNxCPa7YIu4XJEvuHllIr OwHWO8WzZ5ZYQ9dNNhoV6z hWadjfnfwR6qDmk+TVJOOj wvdGQ+PHRk LZN3eCmvEAesUZKalF7rJI RsW1e6JnVeTvJ1UTspO4Re aeK8IXNvfLJnQDOneWBCzN 5eggvyu0ie gefvVxFfQMKdLEp9PSr5GY GzhQqpYeBjBGT4CfX5GAM8 xLOinT3kuMqcmccvsX7aNw c+JFM2RNO0 UC33SQ64L8HwSugqlRQboY U+PHRhYmxlIHdpZHRoPScx ZCDcLfOhwSidQI7uIp4fIK VyLWNvbGxh cHNl (more content not included)... Normal [facility] Consent for Treatmenton 02-28 Consent for Treatment [id number] 2099 [id number]#1.0 0CD:127 Normal [facility] Heart and Vascular Office/Cl inic Noteon 03-09-2022 Heart and Vascular Office/Clinic Note History of Present Illness Mr. Campos is a 66 year old male, morbidly obese with obstructive sleep apnea who uses CPAP, hypertension, unknown cholesterol but on atorvastatin, lifelong non-smoker, who returns to [facility] office for follow up after extensive cardiac testing. He was previously seen in the office by Dr Saldaña for further evaluation of labile BP, near syncope, dizziness, and dyspnea on exertion. He had a 12 lead EKG which revealed atrial fibrillation. His orthostatic VS were negative in office. He had echocardiogram performed at [facility], which was normal. He was ordered [...] protocol. [1] patient was then referred to [place] and was placed on sotalol followed by [...] progressive dry (more content not included)... Normal [facility] Comment on above: Result Comment: Elec tronically Signed By: Camilo STARK, Kushal J\.br\Date and Time Signed: 03/09/22 11:29 EDT Progress Note-Physicianon Progress Note-Physician [id number]#1.0 0CD:127 Normal [facility] Coding Summary.on 02-10-2022 Coding Summary. CD:[id number] Gh 0bWw+PGhlYWQ+HK9ZAQCjI 67cyAFtzN4HW4fKDG8XVXU UJYYHES5EAJ5epMA5UBkiZ 2VybiAv OktsoXQhIE68WVs1VLY1bL btMJfauU3qrJHyB6b3PvFo AJ21hR42CKkhXEAaUvB4Yx ZpbjsgbWFy Q3ueGtVmfMSxPgd+PHRhYm xlIHdpZHRoPScxMDAlJyBz dYjyYX4tJj0wVEIqAXJkkG xhcHNlOiBj l9piLAWcFEbtPK6grDdzG3 WmiSH2KTQiq0v1Mc76iOA+ CFOhWHI0tKhuJWuzy125Gh Pas1ovAER7 fTLbGQjxJFU1T57qb6C7GI GqACSaRFD2iOW3iW6akSdu eqkyZ4FawCGyLoI8DBS2aN SikW7npAfi kzzayC0fUay+P14KVH2SUL ZWDH3YZgq7J9LhVftreBG+ NI71WVHtJR70qCInkBZoc0 iqeSj0KhRb KJIpRCP9fEnqCRynj8HsWU BiV62tpOEyv4Y9WDJabHla bXIuUlAyeDP8sP6kHRrgbm yxq0dejbeb Gqodv8uijm38tM47O81nOM ntRCKqZFX6XMIdVVBewZja ql5thB1qCs9+VGljp4gdr4 clbHj8ZwRe QDSowwBriDvoJAN9z7PhRe 05R4IhpWtpg0OaKjb5dd42 rCYxm3P1xKG8LZgaTJNgiH 3pDOffExF4 RWYdAvBmyK08aPYwJIcfAn 1zbMjioYnsIS8tKFJwekoo TZBwzF6oIDXsjACprDscLV 4wNTBpbjtm y190YgTrWJL0VPXuwHEsV6 MbuU0fMfChWRIkZHDwS3Uu iAQxXYgsH063TWelMgF5SC DitiAkD1Do BXZsnFdtQaT4y7D0Em2Vb4 PoqnvcSXE7KBemGKH7QqBi JzKmIaA5R9BtSxr3EOKwzN mrBO7nM5Vt BFRmaxjcugofyXD3WCXdDT PbtN98zJMyHEgeNe9vq4V4 y274UEAhMMHsoD83Vr9nsX ogMTBwdCBU tA0degjus2xxepfpJkHzZP ZvIBe6CQs8CQOvsQulSbSc IFK4ZmA6DSN9bFMnsA5qyA ccdzgjkF0u Oyc+Q52qdN6dLHI6KLV3ne itNTRpndQiZA72KC95E0Ib PjwvdGFibGU+PGRpdiBzdH jzDX2oXlXx i2bxo5EfZTeaS1ZtLFYnAW crRdy2BSDgCRG8gKY8kN1h CDOtJWgvq7H7zCO3L8Femy Unta0nx1xj BQFzSMdrG44sgUXni5Q8JX CkbWM4MVPezCttQzFmnB70 Oyc+BESgkAzqh9BxHoviv1 vgn6vunTg6 HqIuFNTvmsRxuJylPYQ1c5 GeFh34W43oGHaqAMAlKMZb FOClVPIhqNvnrm7mxV1eQg 8+PGNvbCB3 zBP7hP5yXHIhDgW4BPcnH5 65OdCmmQJlGctal4eth4la dEx2AgJwZNYmwuPxcLpoCO L4h6RfMy54 H73mPSdpYDOpVICrFFPiJC GpvQvzrw3aiK7zYm7+PC9j o1hlzd91lA24rBQ+PHRkIH O2gCxqGFnf ONVlrR6qMLtoTaZ1QCJlDn ZxwA59mUDeAMjyZz0bjNgk gAjpFJ6oDMNzpgciv775Ke Ddf1yeABJe zJZhWKvqTDK0M55bg1R2ZX JnGSTwJPS1aDL0vA6kaCiw bjogbGVmdDsgdmVydGljYW hwLAapT875 IHRvcDsnPlBhdGllbnQgTm DzJZw7G6EgFss9YPUtoJcu JC2sqWBeMAeyRp7zdVrryC caFS8jGHIc jihkk985QwJcd4qfEVIffJ GyXLdkPEI5M49qb6Q4PCJo HQVyQTY5sGI6wR9obVtukv ogbGVmdDsg khMgqRhuICuoTZcyR585YX RvcDsnPkJpcnRoIERhdGU6 MT56OP26gWRpn8G6xSG7H7 BhZGRpbmct jixppAR9MEKlQXXqjS60Aw 3fjBhlYs5sQBXeBWU4ERIp iRHjK3AmmA6cHtInCNGySK VvX0BnlOKb HNcwB351UPjxGmO3KMYnvk YdQ5NbXIDcjRipKgB1h7N7 Kt6JL5E2DB62BR70qUJwe3 V5uKW4L4Mi QSFaxxmsptsxdTT3JPPaLB HlrP60Kh2tjKyuXp9cFJDs KIN6RDRvqJVtR8NkdN0gAy AjMDAwMDAw R5AadNLqGCyaN749YTdaAd B3ULXozaPjB0HfTLQhnPij JuX5f7U5Nb3GZNs8FP13YT 37cPCwr3Z6 kXL8E7SpLYSdwnbukkglvE B9KCTqVZLajE92El9tdNth Ay2qSRUeVMP7FJIilUUuB1 XqyM4vLbIp PWQlNBKxJ1HtuWWcWExeE4 99JIyrMtB5GMDeawMkE5Ih SFRfiIuaVnP3a5Q4Wj6IZY MnRB24PBN7 bZN7MD87ZM51S1SeJohvqB FibGU+PHRhYmxlIHdpZHRo FPjjTTJmCqUawCycQW5rEn 9yZGVyLWNv zLourXOfEjTgv7fbMFGdJK deUD1khVgjT2RnzUZ7YVUh o5l3Gn96S16zH3EziUA+PG MnlMN3hQI7 lQ8yJtPuMtK0DKmlB957Ww QjyQJiUeprp0vkl5eyeVo4 AsO7JUDpduVlvUldKDG8v7 HsUu26B50r IHdpZHRoPSIxNSUiIHZhbG emkd9knR8uVn8+PGNvbCB3 sFU7cZ9hToNhGgD4SLaiH7 49InRvcCIv Bketd8aoc6ekvBh6ZyGaTP IhjzVtcJxdZUP2b9QzJn30 P4RnvGeco1GxIfl8jm85qI Ceb2V7lBW0 V8WrOAUjmsbahGZzmKjhEM 6wSVFzslmkITEkmN3yFQPw M4c4IfRuMuA5OYceW4Dxkw U4LWXlvYFu QIaiTXS3G25gs5W5HWTlMH SiBAG9yUD4mK3leVarmier bGVmdDsgdmVydGljYWwtYW xrT616FFMy jWcyQZOxqS3jZRWsnTRgiI zaSE2gMOJbnxxgHlYRFqEX NmejZLDWOANIIxPGUM76CP 77yARht9P7 qKI3H2XcOBKgffqreyldqJ D3OHBtENUggD57iRPuTOpz Qy7zq4G8i104IIIdPNHvqT 24Qf7zuLhy HACqmVRQoC3kdzdnt6exbl kzLaPeZONjQXp7YJq9YTSt rFzwSeYgPZE2XhT6BNP0sG GrmH3tyUpc pfanhT6oQnt+MDUvMTEvMT n3JGkmeCU+RQGxXBL1vEnw IGwxEZQrjT9jFBBnT4a1Zt FiVvE7ODbq S9EaPWYcaxyeQy26dR0kIu YqRvB7URlbI0PhaeC0ZCSz dMVxDKgeQEM4S68ze2Y7QF MwMDAwMDA7 mMV2pZ8xjSnvnwrxeIKnwP ntaxClwWmmQIydQZleD652 BZIpuZhxUdU7DDdvJHPxIB 11FY29cQCj a3C0zIM7Z3KiYUVlbciqik idgCW7FKXrDTCumX66fZVw TEfjIf3ce3G0d164PPLiDY EpgT07Cx5c zOgdHKYabSQVcE5nacoua7 oorydrXqXrOFHjLPz4SOb5 YKFnqSvrUbSsSQA6BmT4WJ S0eHZhsS8f zWermdedaY3lOwm+TWFsZT wvdGQ+NVCuDCX9xJmrQBmm DYTheG8vRJFhX4s3GiHzGj F7RHfgZ4Ce RGVktlazQg40gY3mDyAbIs S3NCaqN2CegsJ3JQVobOJy EZmdNOS1H44qj0L3TGKjDH NpBMY7fAS9 kB2ppNretojphGDfdBlkkv WjuJcnQUxeKGroW950SOLj cDsnPkFtYnVsYXRvcnkvU2 FtZSBEYXkg E3NgW8PvoWdspIC+PC90cj 41A6NcLysmMak3HMTgOXS6 uCT5tP8iQZLqUFogz7V0iJ B2T8CdrpRw kk5ng7ecOJWdLVkqM70qoY Iyc6W1YVAqqGH7HDOygQln DgUdkW78Unt+PGNvbGdyb3 UrOptoa1sr f7nucWm0RyVjAXZjabYgyR rcOID1y3NsNw19L82aLJdp ZHRoPSIzMCUiIHZhbGlnbj 0ukM8sZz6+ XCWeaIA1eHA0fY3mFtMsTy Z1IXspL809UgRgiAOpZtvi u5vpb8pusNn3WuEkDOJquy FsaWduPSJ0 n0IqPd76U9HpoYonx6UzFn x1ww69fTMmj3S0aZY9J0Ds VTTbtnisfZItrZopWD2rTI BpbjtwYWRk yV6tLONrH8l4XjLkYoO7WD tfA1KbftD4LSWaiDFeCMQz cTBFbJ1ivafko7ajqaogHr AwMDAwMDt0 LYg5RRLubNmkXkKtHTW4Kl T6YUL0vDMmuS3dbSywicii xB4nOri+AFe5m3uecZDlBY 1upWT2DB88 GK70jJRae4Q1zTZ9J7XeHB MwetohtkmunDX6MPIuYKVq xD30Bu7snBvyQz2kLASrCA Y3UMNigTYz K1OklC8hSpNbLHPhPOKeG4 XpvMGlEMjxP512DKooMfA8 QUBcroPfS2RcITBtxBuxXe T2g9C1La1T YW53GU86NR49hHQrn3J8nY C3S9YrSBZkghmqzzxoqWT1 XVCtXEVrdH17Am6pzMnzQi 1qSYVoPWY0 TYKceMZpO1CpkL9kNmCnWO KxDLWgN2ByyTBtOGboE012 CJvzEcG0VIChjuIxU6FnHZ FsaWduOiB0 l4A4Hs6QXx44TP28LZ53oZ Bfq8R4lDS6T2HuWKAqmjpb vsbbyLR8VSJhOGBupE98Fo 2ufKtyBe1h GCEdSWV0ZNOymVIsF3XybM 4zDeRtWCIdEXTrF9JvaAHx NIdfK686JAzqXxT4VDFjfj PrN9IvCPEy qUovWfL4x2W7Dv5PENcouu a7X3MpGxqdgFD+BY80EQJk ZL36rFMieSMag3kwaEr3So EwMCUnIHN0 eWxl (more content not included)... Normal [facility] Consent for Procedure/Surger yon 02-09-2022 Consent for Procedure/Surgery [id number]#1 .00CD:127 Normal [facility] Cardiovascular Reporton Cardiovascular Report [id number]#1. 00CD:127 Normal [facility] Consent for Treatmenton Consent for Treatment [id number]#1.0 0CD:127 Normal [facility] Inpatient Clinical Summaryon 02-05-2022 Inpatient Clinical Summary [place] [id number] Clinical Summary Person Information: Name: LORENA CAMPOS Age: 66 Years : 1955 Sex: Male PCP: BEENA BENÍTEZ MD Marital Status: Phone: [phone] Race: White Ethnicity: Non- or Language: Cape Verdean Visit Id: Visit Reason: R94.39 R07.9, I25.10 Speciality: Acuity: Enc Type: Ambulatory/Same Day Surgery Med Service: Surgery Arrival: 02/05/2022 06:31:58 Discharge: Dispo Type: Address: [address] [place] [address] [phone] Provider Notes: Diagnosis: Problems Active Hypertension Acid [...] Follow up: With: Address: When: Kushal Page [facility] [place] [address] [phone] Business () 03/09/2022 11:15 AM Type Location [facility] Cardiology Follow Up (FT) FT.Cardiology Clinic 03/09/2022 11:15 AM 03/09/2022 11:30 AM Confirmed Patient Education Information: CV - Cardiovascular Discharge Instructions (CUSTOM) Katiuska [facility] Inpatient Patient Summaryon 02-05-2022 Inpatient Patient Summary [address] [address] Patient Discharge Instructions PERSON INFORMATION Name: LORENA CAMPOS Date of : 1955 Current Date: 02/05/2022 11:23:22 PHYSICIANS Admitting Physician: Kushal Page MD Primary Care Physician: BEENA BENÍTEZ MD PCP Comment: Discharge Diagnosis: Condition [...] Follow up: With: Address: When: Kushal Page [address] [place], [place] [id number] [phone] Business (1) 03/09/2022 11:15 AM In the event that this physician does not participate in your insurance network, please consult with your insurance company to find a nearby participating provider. Type Location [facility] Cardiology Follow Up (FT) FT.Cardiology Clinic 03/09/2022 11:15 AM 03/09/2022 11:30 AM Confirmed Comment: Luz Elena BRYANNACOLBYLORENA, have received the attached patient education materials/instructions [...] 2 ti (more content not included)... Normal [facility] Operative Reporton 2 Operative Report SURGERY DATE: [...] an exchange length J-wire. Next a 4 Trinidadian sheath was placed without complications and flushed with Heparinized Saline. Next a 4 Trinidadian JL5 catheter was easily engaged into the [...] exchanged over a wire for a 4 Trinidadian 3DRC catheter. This was easily engaged into [...] exchanged over a wire for a 4 Trinidadian angled pigtail catheter. This is easily engaged [...] patient and his . Kushal Page M.D. kendra Dictated: 02/05/2022 [id number] Transcribed: 02/05/2022 Normal [facility] Comment on above: Result Comment: Elec tronically Signed By: Camilo STARK, Kushal Galarza\.br\Date and Time Signed: 02/05/22 13:41 EDT Patient Education - Texton 0 02-05-2022 Patient Education - Text [place], [place] CARDIOVASCULAR DISCHARGE INSTRUCTIONS Diet: ? Resume [...] you are interested in smoking cessation, contact [facility] at [phone], ext. [phone]. ? In the event you are unable to reach your physician, please call [facility] at [phone] and the rounding machine operator will assist you. Seek Immediate Medical Care for: ? Bleeding: Apply continuous pressure to the site and Call 911. ? Should the arm or leg become cold, numb, blue or white call your physician immediately. ? Signs of infection are redness, warmth, swelling, increased tenderness, colored drainage, fever or chills ? Chest pain ? Normal [facility] Coding Summary.on 02-03-2022 Coding Summary. CD:[id number] Gh 0bWw+PGhlYWQ+PO4VYUYfV 55edCSktF2QE8dAVX8AOLI YKQZOSS3RWL0yjLC5LGczT 2VybiAv DxqrsTLuYV95WEg6YUW9uF voIFnfrI9tbSZhH6l9TjKy KB73mK07IVwrXPKaThJ5Nd ZpbjsgbWFy L3hsNhQipDRgTny+PHRhYm xlIHdpZHRoPScxMDAlJyBz dIoxUM5hEg3aTIZxCEYqyC xhcHNlOiBj j2dkPSQyTCkaSV4fdAkzB4 AtlCD4TJYcj9k7Ol83vHC+ USXpNCV6wGrqZKyhy886Lr Zbn7vhSJJ9 mLQuFKphZBI5C03dg7U3JJ FoOBLpYUS4fLO1hB7vlLlm hkedR2MycBTqGsY8KNS4vN YovG0njSfs iikofK1kOru+W71DCN2TBC GDKI4GIra6W0SoAvhmzMD+ EZ53YURvPS92cBGlcMEfb4 qnrNg4ChEf VWQeTBR4tJnyOJrel1UmGT MqR95ipWDvg8M4DFHwiUwb qIYtYnBgrEU6yD2pZYcoej mqm3qbswbe Cokae8btbx76zU86W68bUW rqZIKnHUQ3EMUpXAKwaZpt bb0xaX8mEd6+ZEcab6ite4 qbwCq3CtJf MYEaikMcxMovSJX6i5JnMt 02H0TwrJpsg4WcMpq7us24 qXSoh1B4iLP6SUanGZYifD 7uVQdyKmP4 PSPwPeGkiW92rVMaWUukDk 2skHdapSdvSV8uXNEsnjvl BLQvoL4mHGMbfPQnkGcuMA 4wNTBpbjtm c944CpExUBK6MTFqpVOrH3 WgjR3sVvYeQLDvLXXfB8Vo jCGoQAffN858DWueDpA4WC FgrrUnF9Zp OPHabEjeQoM0v4G3Zy8Nj7 AlowbmARZ9GYhdCOJ4AiA5 UdTnCeZ2R9TiXzo4MPWoiO elAP8bK2Be CPIkgbfbbzasmSV0BQEcSE DyfE30aOXbYAwgEn1mk7L3 a420NEPsLLRicE90Dw9cjW ogMTBwdCBU xO6jhwtkr1fdvxdiWnTdHR ZvKUv7RFc9XSAquKooUmIe BWT6KmD9ZRK8rXZfrE3roU leudhvkG1z Oyc+Q09ffR4bANV1EZD3ff ygRQXikkUqTO77TJ44B2Pb PjwvdGFibGU+PGRpdiBzdH bnWH6iIhSg b4fki1SuUMdeJ1UnMYTbNC hoEww8CUGxBJA0gMU3bD4x HPPqEVwbi5R7pKD2Z6Kgoh Bqjl2xs2jr JNLlDVcuS36gxKRyn9G6NO RuwXU8DYMnuJpdRiPefY46 Oyc+ABZjwZkwv8IlJpkqu7 qur8mikVs7 YwKnTTFywhTtrVlhTVR5w1 FiPg27J98zAUiaWFHoGGKl EJErWEJcgSjlho1umP0uKw 8+PGNvbCB3 dTB1uN7cAYWjZbQ0WIduS6 79FcFitOFbDdvbj1zna5si jWx0UxIaPIVmhzQgnCsuXH X6x7TjOv55 Z88fWJvlPXNzGCZbEAGgDZ RppPmpnb7tsU8vRy3+PC9j e0kdtj20gS34xJN+PHRkIH X3rObnPCjn IVUjeW4fKZupGqN6JKLnLy MqlA10xMKjMYbhBs2frIis ePidON0pPCVbuyhoq985Bh Lyc2bfLFIo wXIwEUuyUHO6D54rf4B7VY ZuFQNxNFR4eNM7sS9mxTxl bjogbGVmdDsgdmVydGljYW kxYXfnM376 IHRvcDsnPlBhdGllbnQgTm AvHWs3M1NkGay3WFGqaYtv JW4wgIGaCLhxSh1rdBvedH niJA3vMMAy qftnf843PfLpw4mwONJutK YeWDdhSJX9Y80fb2I3BTRd GRGsDFY3fPJ9xB3isZnmao ogbGVmdDsg tqKnqLtmJMbzROzdD554FC RvcDsnPkJpcnRoIERhdGU6 EV47JH09nMKkb2Y0pAP4W5 BhZGRpbmct qrrifYS6DEBlCZLbwM54Or 5wrEjrPa9fOTCqEQX9YJXl gMQdQ8AddT5dLnBsRGPdTQ QwD3DbdODg BMurM480TQfmOkQ0WHSfae MuQ9XzBNWwoHbtCeF4b8J4 Gf6XN1B8YG53ZQ81lECuy6 F4mQP9G9Qo ROAhbifpmnyqpHP4MZGrIZ JtqG68Zq1wpFaoUz7vLMRo IDT8KWIqeTJmW6BpnO7fHl AjMDAwMDAw L3QlfZOaIQnrP372ZVlkHb A2KUAamtOdC5HzYDCfsLal BcL0z3F0Um2OQVa2AX58DP 18zJVai2C3 yMW6U1LfZIVsastbrjmvvI Y4PKGcKBMwzE73Rq8rpBna Fc6sSCKxBAC4CBBabSAvY2 AwrO9wLgKl OUBpRHScI1FsrREtLUuhB0 06XKffTrG7VDKvfzQxK6Sc NNXziUehAjT0a3J6Hl7BCS EbBO72MAV8 rRT6AG87GK32E5DsIabpwT FibGU+PHRhYmxlIHdpZHRo BIimIUPdEqVecJskXZ6yOl 9yZGVyLWNv lWoxkZGiLhIze9fdBOVcEH rsSO2kmGzoU3ZrcCE5JVEq f3y8Ls09K58gX9LgnRJ+PG EsyZM1lEK4 cK3oKmUaFmX6UDuoL696Oi PyeRXiNfdmy6aqj4ckyMe8 DuG8DMHougLyaAafGYJ4m5 VcMl04C30h IHdpZHRoPSIxNSUiIHZhbG ugej6vaE1kTz0+PGNvbCB3 rJQ5eZ0vGpGiRrJ9TOwxZ8 49InRvcCIv Bgbwb9tlq1kiyBg7HtTsZW EuxzMwcXxeRJI8h8HeMx16 U0SlbTpwp2JpOwa7ql80zY Njc8L9wJI7 U0XlLAEqzakumHTvdKdlJF 6jDENjqlgbZCOmkQ5iCLIi K3t1EgOwZtT6JCwmE7Ajwr S6JNXdtOCn EIyvBNT7V19me0K9LHGvPS FjTAC3iWQ9wK1qcRsdpxlq bGVmdDsgdmVydGljYWwtYW urP609YXEt pZikUDPcgT4yAOUhbFVvsG wxZY0dVZXzqyhiZkHDMcCU FiyeTQGZRACWIhQFAQ71CD 12yCFhp5S6 qSE3Q4PeDKJgmcqoiwqfuQ C9PSXuVCJuzN12rOLyLArq Mo4sz8Y0k759SWFaVIAvnK 89Rw9zpLir DHPwoKGFiZ6ccomdi6evqc klSkAgFQSjQUw6YNy4AANr xLejKsDlTPK3VfX9XBA5kR VomQ4ofNdf asnbiZ9aTkp+MDUvMTEvMT g9KUxluOI+UABrASS0nNnu EJnmTBKnvQ3kWDZzU9i1Xy YyOaN9KTpu A2HyPSMuosgsIz60zJ9jZg IlNlB2FUlfG6MmvzO9FNBf zLQzSDjdGBJ5W97jl5G5GO MwMDAwMDA7 nPZ8eA0nvHpzczarwBGdmA fvvdVzhAkdFJyhKFumB728 EXBbfRgbTyA0DMsiVMCsBN 73WF39vXPi b7Y9nSL4Z3ErITYhngbqan osyUQ8IMQoWFRmyI98gVZw BUyqKw7gh6X5h152KDEyMD LjvZ40Ub1x lJivGJDpaFOAcF3qmeecs7 cdwgwcXuAqBNUjYSg5YOs3 CXMdfEgwKvFrCKC7YiS1OP V7pAOhkP9w rTwkakfirC4rUls+TWFsZT wvdGQ+MHQkNCZ0bGeuMTsk ZMFceX8vREEpA7d7GgSkXl D0BOnnS9Ji HVQotfraGs85aU3vYcKmXf Y4HHlfO1LottV8AEYvqDRe EFwdUBF0R08ws9S7HMLaIH UmWFG1hWI4 dY7gwDqfrhkiyJCaqFncnm VvaSqkYKfeJCimG344GWEq eXjdEj92vHHxoNryfdH2W1 RkPjwvdHI+ AB63INKoAZ51dUSceOJgs7 waxQq3HaFdDPXcSPA3zXcw TMlme5XdQIUjQ34kfHVhy6 E7POWigWtp aDIvXdFttKT6sH7hKTquos ael0jwngkmZrquq2ywgk49 mJ17P27oPJvtQNDhOVRjSZ UiIHZhbGln jp6cfB7tZf9+EXFgjJG5mD X8oC4sTrDcPsZ9TVbsH150 NvXefGNlFbiez1rin4zpyL x0LtGrYXCz wmSbiXijMKE2p9OxWx39V0 9sIHdpZHRoPSIyMCUiIHZh lWvtvy5bbU9iPj1+PC9jb2 zekm82cL72 dHI+LPYsBTD0gGplDZgaPL JwoT6dTJevUbE6NJSvDyQv vI86fXOjEQfxKq3rxSfacN frVT3wEUQx qjjjm715XkAyb0ugVNPggF RmGRxzBQI5L22fh9J7ZQWk XACyXYO8hMX7iP9afOnoip ogbGVmdDsg ycNbhKccCZpuFAqgA728HC WlxLzgJzUpkAWsK6gmqaTS AL0sGvgbdMA+FVImCZX4oW xlPSdwYWRk iI0oNFPoU8c0XwXuSnF0CY hjB9LuotY5KVQwcQGrOXFc uIDIxI3ztfmcy2rsombbEg AwMDAwMDt0 QVc8MBFceTcjUbUlTNM2Ac K0ERA9wABgwG5lwHzqbyxb yP5xBlf+RklOOjwvdGQ+PH SzRGG5iTkj UXonXRCfhQ5tSVPhR2n1Oe KqNtC6XNqbM3OcayQ8RNSl xRTqWQAaeUAWiL5bsdcys8 xvcjogIzAw KJUqCNn5KNd3EDUrfXgpIz ElYGR2IfZ4BBG8eCJywS4h iUsjfemwtL2gIqz+TVJOOj wvdGQ+PHRk QPA5qEqgGUgiNEVmkC9pJN MgS7s5ZzVfYpG2SPrqK3Tu obK0RZGaeIRyZEXxoGGSpW 9inlnzg2gt qcwsMlAaBCKdLPa7ZNa2HZ HbwOzuYuGmVWJ4ZfT3LSA1 lKMdsG3liSstafcobQ1dVe c+UZV3LEH3 RM84KD04Z8WxZwhnySIxcT U+PHRhYmxlIHdpZHRoPScx FYJtZdZhkKkfAA9rZq6fCN VyLWNvbGxh cHNl (more content not included)... Normal [facility] Outside Recordson 01-29-2022 Outside Records [id number]#1. 00CD:127 Normal [facility] Auto Diffon 01-28-2022 Basophils/100 WBC (Bld) 1.0 % Normal 0.0-2.0 [facility] Comment on above: Order Comment: Order Added by Discern Expert. Performed By: #### 2 [id number], [id number], [id number], [id number] ####[facility] [address] [place] [address] Basophils/Leukocytes Auto (Bld) [Pure # fraction] 0.0 E9/L Normal 0.0-0.2 [facility] Comment on above: Order Comment: Order Added by Luis Expert. Performed By: #### 2 295042, 1856575, 4352928, [id number] ####[facility] [address] [place] [address] Eosinophils/100 WBC (Bld) 3.9 % Normal 0.0-8.0 [facility] Comment on above: Order Comment: Order Added by Luis Expert. Performed By: #### 2 924363, 6241552, 6538266, [id number] ####[facility] [address] [place] [address] Eosinophils/Leukocyte s Auto (Bld) [Pure # fraction] 0.2 E9/L Normal 0.0-0.5 [facility] Comment on above: Order Comment: Order Added by Discern Expert. Performed By: #### 2 730009, 6290851, 0138098, [id number] ####[place] [address] [place] [address] Lymphocytes/100 WBC (Bld) 27.4 % Normal 14.0-50.0 [facility] Comment on above: Order Comment: Order Added by Luis Expert. Performed By: #### 2 207700, 6462868, 7351206, [id number] ####[address] [address] Lymphocytes/Leukocyte s Auto (Bld) [Pure # fraction] 1.3 E9/L Normal 1.0-4.0 [facility] Comment on above: Order Comment: Order Added by Luis Expert. Performed By: #### 2 695207, 0040329, 9737574, [id number] ####[address] [address] Monocytes/100 WBC (Bld) 8.1 % Normal 4.0-14.0 [facility] Comment on above: Order Comment: Order Added by Discern Expert. Performed By: #### 2 847714, 0759480, 2791033, [id number] ####[place] [address] [place] [address] Monocytes/Leukocytes Auto (Bld) [Pure # fraction] 0.4 E9/L Normal 0.2-1.0 [facility] Comment on above: Order Comment: Order Added by Luis Expert. Performed By: #### 2 039398, 5281895, 7112699, [id number] ####[address] [place] [address] Neutrophils/100 WBC (Bld) 59.6 % Normal 36.0-75.0 [facility] Comment on above: Order Comment: Order Added by Discern Expert. Performed By: #### 2 394772, 6295923, 9738856, [id number] ####[facility] [address] [place] [address] Neutrophils/Leukocyte s Auto (Bld) [Pure # fraction] 2.9 E9/L Normal 2.0-7.5 [facility] Comment on above: Order Comment: Order Added by Discern Expert. Performed By: #### 2 187866, 7149757, 7285945, [id number] ####[facility] [address] [place] [address] BMPon 01-28-2022 Anion gap [Moles/Vol] 15 mmol/L Normal 6-16 [facility] Comment on above: Performed By: #### 2 349439, 5768817, 1794007, [id number] ####[facility] [address] [place] [address] Calcium [Mass/Vol] 9.2 mg/dL Normal 8.9-11.1 [facility] Comment on above: Performed By: #### 2 402096, 5392661, 1893650, [id number] ####[facility] [address] [place] [address] Chloride [Moles/Vol] 100 mmol/L Low 101-111 [facility] Comment on above: Performed By: #### 2 836923, 9972374, 9174082, [id number] ####[facility] [address] [place] [address] CO2 [Moles/Vol] 24 mmol/L Normal 21-31 [facility] Comment on above: Performed By: #### 2 693177, 9789138, 9432478, [id number] ####[facility] [address] [place] [address] Creatinine [Mass/Vol] 0.8 mg/dL Normal 0.5-1.3 [facility] Comment on above: Performed By: #### 2 684626, 6241223, 1421407, [id number] ####[facility] [address] [place] [address] Glucose [Mass/Vol] 260 mg/dL High 55-199 [facility] Comment on above: Result Comment: If t his glucose result represents a fasting glucose, interpretation should refer to the following reference range: 55-99 mg/dL Performed By: #### 2 186166, 2136365, 1582289, [id number] ####[facility] [address] [place] [address] Potassium [Moles/Vol] 4.4 mmol/L Normal 3.5-5.3 [facility] Comment on above: Performed By: #### 2 258201, 9242425, 5567874, 11070414 ####[facility] [address] [place] [address] Sodium [Moles/Vol] 135 mmol/L Normal 135-145 [facility] Comment on above: Performed By: #### 2 279337, 8259318, 7914768, [id number] ####[facility] [address] [place] [address] Urea nitrogen [Mass/Vol] 13 mg/dL Normal 5-21 [facility] Comment on above: Performed By: #### 2 257302, 6037179, 6999949, [id number] ####[facility] [address] [place] [address] Urea nitrogen/Creatinine [Mass ratio] 16 No Units Normal 10-20 [facility] Comment on above: Performed By: #### 2 663696, 7723022, 9352861, 05936496 ####[facility] [address] [place] [address] CBC w/ Auto Diffon 2 Erythrocyte distribution width (RBC) [Ratio] 13.9 % Normal 10.9-14.2 [facility] Comment on above: Performed By: #### 2 355664, 4982991, 0079566, [id number] ####[place] [address] [place] [id number] Hematocrit (Bld) [Volume fraction] 39.6 % Normal 37.7-49.0 [facility] Comment on above: Performed By: #### 2 086449, 1109671, 2669724, [id number] ####[place] [id number] Hemoglobin (Bld) [Mass/Vol] 13.5 g/dL Normal 13.5-17.5 [facility] Comment on above: Performed By: #### 2 862309, 8194896, 3158672, 09540110 ####[address] [address] MCH (RBC) [Entitic mass] 30.7 pg Normal 27.0-34.0 [facility] Comment on above: Performed By: #### 2 834490, 2771983, 9203911, 86256564 ####[address] [address] MCHC (RBC) [Mass/Vol] 34.2 g/dL Normal 31.4-36.0 [facility] Comment on above: Performed By: #### 2 938823, 5712022, 6678080, 56699833 ####[address] [address] MCV (RBC) [Entitic vol] 89.7 fL Normal 80.0-100.0 [facility] Comment on above: Performed By: #### 2 885490, 4778001, 0504143, 64197031 ####[address] [address] Platelet mean volume (Bld) [Entitic vol] 8.9 fL Normal 6.4-10.8 [facility] Comment on above: Performed By: #### 2 740514, 5015850, 2312886, [id number] ####[facility] [place] [address] Platelets (Bld) [#/Vol] 153.0 E9/L Normal 150.0-500.0 [facility] Comment on above: Performed By: #### 2 933980, 0999866, 7610620, 45432555 ####[facility] [address] [place] [address] RBC (Bld) [#/Vol] 4.4 E12/L Normal 4.3-5.9 [facility] Comment on above: Performed By: #### 2 929060, 7798965, 7950173, [id number] ####[facility] [address] [place] [address] WBC corrected for nucl RBC Auto (Bld) [#/Vol] 4.9 E9/L Normal 4.0-11.0 [facility] Comment on above: Performed By: #### 2 346221, 5436352, 2854676, 59410110 ####[facility] [address] [place] [address] CHEMISTRYOrdered By: SYSTEM SYSTEM on 01-28-2022 Anion gap [Moles/Vol] 15 mmol/L Normal 6 - 16 mEq/L [facility] Calcium [Mass/Vol] 9.2 mg/dL Normal 8.9 - 11. 1 mg/dL [facility] Chloride [Moles/Vol] 100 mmol/L Low 101 - 1 11 mmol/L [facility] CO2 [Moles/Vol] 24 mmol/L Normal 21 - 31 mmol/L [facility] Creatinine [Mass/Vol] 0.8 mg/dL Normal 0.5 - 1.3 mg/dL [facility] GFR/1.73 sq M.predicted among blacks MDRD (S/P/Bld) [Vol rate/Area] mL/min/1.73 m2 Normal >=59mL/min/1. 73 m2 [facility] Chem S GFR/1.73 sq M.predicted among non-blacks MDRD (S/P/Bld) [Vol rate/Area] mL/min/1.73 m2 Normal >=59mL/min/1. 73 m2 [facility] Chem S Glucose [Mass/Vol] 260 mg/dL High 55 - 199 mg/dL [facility] Potassium [Moles/Vol] 4.4 mmol/L Normal 3.5 - 5.3 mmol/L [facility] Sodium [Moles/Vol] 135 mmol/L Normal 135 - 145 mmol/L [facility] Urea nitrogen [Mass/Vol] 13 mg/dL Normal 5 - 21 mg/dL [facility] Urea nitrogen/Creatinine [Mass ratio] 16 mg/mg Normal 10 - 20 [facility] Coding Summary.on 01-28-2022 Coding Summary. CD:[id number] Gh 0bWw+PGhlYWQ+LS8QPFUfI 18ybVGjnZ0MW1tFPD4JFOX DJMNBZW3PED2ytIB3HMehK 2VybiAv UjxirPToUC42KIt2LKW5uQ naQRxzpT9yzQErQ1d4NjHv WA78oP39CSpzXBSeNlW6Zg ZpbjsgbWFy Q9rdQoDhrIOfKbk+PHRhYm xlIHdpZHRoPScxMDAlJyBz bPikPK8uAx9mZFHrZBLnqI xhcHNlOiBj r6zxUAPwKVxvZP7hsHyqV0 XfjDT0UBScf9q0Ud58pER+ SGZbAKR8mIeoQMuss726Dn Wgq4oqLGG6 vONyEXjxYJR8D67xb1U8CR ClOGSoKNM6xLT4qK2bdXvq hqxeV7CqrPErQlM7ZHG2bP PymB7inLtj djdayG5fWup+S59HKM3ERF JDEG9CEwz7A9QrGyijqJY+ YW28IWLvDI83dFBiiPYkz2 zliCb8YvTr XPWdCHY8hUutYGxfq3PgES WwZ34kfFTyk6N1VUSpoTjg hCKwJuRimNF7iF9rNAxwzz ixy2dfrobj Tnwfn8ycye89jL35P69uKJ xnEPUzENG4SXBcXZSoeLeo mk9lkB1fSm5+UBvkh3qnu8 bmeQa2NrEs CUEhbdYihGemDGV1v5AkDv 47U9JtkKcmf9AaLvm9hr35 eIIfm7Z1kCC4FHivOMIkcA 0mHWyfTgU5 OCYoOuYxlD66bSXtSExeUh 0ydKxhmGjpNB3aVWJnsnou IAWhdL8jZHDdnNIrjCpjCR 4wNTBpbjtm e892RdBrJVL7DZDwrSRxC7 QyyJ4vZqCqQYYoCKJbD1Bs vTMrFMruL121LWwfOpY6HS OafaSfQ0Pq WFIftEqwZjN3l3X0Ir0Du7 XlgoudRGB1NAdfKWL0HoCx JmNtCnP9Y1YnCcb6SGLqfQ weGH0pG2Iz GCLkkvoiujixwVU0OZEoIZ AzlU43rVEhCDmiIr1qi9O3 i231FMXnKMJhrA49Or9ffN ogMTBwdCBU zV8okinjx0dhlpvvNeIcOF WaVXv7UVq1KHEikVlyAwSr MXA8HeA3NGC6fECmaE3zfA uilislbC9o Oyc+K54txL9tLUK8CWH7ec mgIXWlviToVH51IK63Y6Lo PjwvdGFibGU+PGRpdiBzdH vcJB0nNeIj g0ahp5QuVFxoC7WgMASyAY bnYxu3KMBnOKI1iYF9aT8i YYJpPTuqb0Z4iXN1N4Uupo Wfsw6oq4jj BKHdSOpbH90mcGFwh5Y1UX FjaNM6UVExuVnmGpIehE84 Oyc+APXwuWycv9YvOyycb3 vcq9mozLc7 FdZxGIEwibEyrIdlCTQ6e4 WxWf59T27qUGcgOFVuKZKs EASaPOMhkTmfag7hpI9gJw 8+PGNvbCB3 oHZ0cL2lZNJqArB0RPquL7 00WrTutBSbWxtwy0pre7yo eJp5KjVbWANuuePhvZeyPX M9q2OaQu56 U79cSEplFAGkQHAfKWQrUX PxxZohoh4zxW3gNw4+PC9j q0ksod75oH14cUI+PHRkIH X1aZzaHHlx KXCsrE5oMWuuQxP2TJOrPr ZnnD65uFRsTQggRx6bwFro uLqkFY2zUVRfbjbme072Hj Wsv6ocPFIr uHJwBVjiAVT4Y34ea8X2EG PlCNNbLTP4nPX1lN8alMvi bjogbGVmdDsgdmVydGljYW plQKsfF944 IHRvcDsnPlBhdGllbnQgTm VkUSw6G2QqRys4VJNkqTzd EJ0qzMGvPSwiRd1qgMpoeI ddJT7yYWBk rqwqi968GxJau1jjQHRjoN KgSLkbXKE7R93pe5T9YOGb ZLSuJKQ8cXH9vS0jqXsosi ogbGVmdDsg wyArmIroQTdeRSipP086FL RvcDsnPkJpcnRoIERhdGU6 GE46WE37sOJaq0Y2oQT0D6 BhZGRpbmct fopzoWW4WJUzULXfpI28Gf 7wiEquQz6eSILdTKS7ANWd qTCdX6FpsL6gIsBhKEHsYI RiG2WewJQw XLqmN360WGenMlB3CAZzfk TrL2DwMPLbgAhwUyP5z7E2 Ok6OH4E2BK15HE66jFMmx6 L4wSZ3Q9Id RFYqdetbjxtxyOG0WUHhSC RlmQ83Zb7onWziMj3iSIFh VSE8VGUmpATpZ3XljR8vWq AjMDAwMDAw C6DrsROsUQifQ174BNtjSn S6AAGbwwNqR0UbKXPwjNxz VzQ7r8I8At5TMZl3IJ35KL 71yGCee3K7 aFV4I4DzIMPgezwkkygadH Q0IBRpFBNcqT92Qc0msXyc Sj5dZWUnORJ7BELhbXTdF5 ZygE3dVxTz REJvIKGaF3HjfMAlZIeoF7 58UKrqTiF5IXMadlSvC3Lt YDCitGlnBbA0w0K0St1DJY DzAM29JLN2 nEB8HC75RF29T9TjGenicI FibGU+PHRhYmxlIHdpZHRo MYmjJJFoXkXzhIdlIT6pQt 9yZGVyLWNv xGmutRZuVoNzl7jvZPLfPE kdCW2ppOrlS7DrbFB8MQOc m6f9Hu83F03sP2FtrYA+PG ZcmNC0fWF1 wW2vXyYjVoD3PDlmH727Xw EabJHwFzlwc1dpi9gglCn7 DjZ0PPAgtrVxwUajJIT2x5 WfHd42R99m IHdpZHRoPSIxNSUiIHZhbG mipx5npK7xOc8+PGNvbCB3 sED0dK7fNlEqItU3DIrdY4 49InRvcCIv Ignmp3ihb4punCt4ArXcRA PbbiLbyStkUYK2i7QeJl02 D2NypOcxt5WmZzw0qe89sO Jtu0L0rKI8 I3UhLUCgszkdwBZjrZobQZ 0fWXJsjmksRCDpmZ2nAETd M6g3CvShEtZ1OSxqF8Bgpa G2FNAkmSUn UDmoNUO0T67fm5S2TZTaFD RlOLJ8zJN6mA8dpUuoeybm bGVmdDsgdmVydGljYWwtYW wmK111DHHd zQpkXMMntA0rUKEtvIAveK lnYI7wLPCqubbzKvGMOpRP YxxtPKOWKKSZGfMIWI99XJ 10mVYja8N4 sYB4F6PmQWPbiydwlhlhdK R7SFMmMIGlhZ90yLJcIBby Al0hu8I9m223TUDrDWNbeI 96Ya5tyNyo ZVRfaIUJdQ3pykfjx5vwyi khOmRqDPOsNAn8MSk7BDQj bDpvPkBbYQY2ZxN9OJI8fC QriA3zwVgs utoarG2kEjv+MDUvMTEvMT d1JAroqUV+ZHAsCAD0gKxv WUfiEPDjpI1dIEKgU1d6Hd TvMbE8RMgh F7XkINZuwfxpAk83mU7tDo UpReY2RPrjV2BjpkM2FWTy qOSoWMvgCEX2J60fq8H8RO MwMDAwMDA7 uIE1mC7oxCedsyolnWKatE hlruZwcWnbFMglJZosN725 DGZiwKlhItX1PBujZYFhHW 04WT91fISc i2T9jJZ1C4XcDWPudwbsen vuxJC5OZFsWRSthR80nHEr AAamQy8rj7T3k488XYPrUX RjfR01Vh0r hPybFUPxpDCTdC0ihyskx2 hrxlhsAiIiVXAnETm2PCq5 ZHFmaVpoTwCdKZL6MjT7ME W6xBJacZ8b fZwvjaddfH2oDgk+TWFsZT wvdGQ+UFOcVZO6sAasNZmo TOXsfL9fANWkQ6k8YkCrXq G8SZupJ1Tm OPRugqmgPx99cB2gBsKcUn Q8BYdhU2ZtdfR7AWBbjKWr PNfpGCY6U92pm6T5FXYbRF IgXIK1sYL5 xA1thMialrjudDLvhFkbfn BrmRbhXCwiHXuuQ100CCLd rNjxRe03pTWlzJvkenT7X3 RkPjwvdHI+ RA84JNCwER77vSDtoKOif6 sxyHh7VhYqJCJoPIT5uAaf FUhdc4XbSUAvB43mtALcd4 N0AYWfaJzs yGPxBhWvrYZ9aI3gCPfiuk ayn4yvprixVwxdt9xlnk80 rO70A69fZJtkEHQaUJYlCP UiIHZhbGln vy5vxC8cWd2+XTNwuQO6nE U1dE4mXhBmGmZ8ZNxlO729 PxVzvRSqByvac5pjd6hzvZ d5ZkEzPXYk nlNzqTmqNQI3r0OwCr67L9 9sIHdpZHRoPSIyMCUiIHZh gUcfdk1wkN6oUs9+PC9jb2 ecue08wM46 dHI+XJSsFQN9zQwyPTmqCJ FgtL9iQUqpGwO5ZLQlQtQz dZ33bLQvRZfmVh1rhGarkP ueXX2nLWOy ctibn287ZeMba5fsIPLzsR JjCGrgSOD5J73oz4Y2WSEi RWElAZD6fZO3qY2ljMplwl ogbGVmdDsg daSyoDzwJFbxXBlsN039GB ZznMvjJwRuuCNwU2jnxkTX EW3cLsompCA+CODyKUK3cM xlPSdwYWRk bE1kSSZmR5t7PhFkJtK6JO jfI4RgbcW8RFGtfRLrPIJs kZFXgP5wzxtso5rbpvhyBg AwMDAwMDt0 UIh0VEMdzUifPhKzLGI7Oj M5WSE8uILjjP9ghDhvkkfz hX7kEif+RklOOjwvdGQ+PH WxXEO5yXtu KCciLKScxL6yBKBeO4z5Lo GySiC1OOduM0CrqhD9IOFc lQToUXOcrZFQgZ2uxnurb0 xvcjogIzAw XHWxDZg7YBr5LIGfyFnyTq IzUNV9IaQ1QKD6nIPrpF4j iLimlekpdP9jJtp+TVJOOj wvdGQ+PHRk ARB7rNolBOrlNJSjkV7bSO GqX3u2XvZvUbM5SWjbL8Og hvW6DRSwwBWyJZLapJJPkA 3azibph7xw uiyxDnKrQFErMFs0HGx1BB AjkEppJxNeJUP5WfH9YPU2 hTXilF8plHvwowlykG9vBe c+XNO5MPY1 OE73GS94K8RmMdamrGAtpS U+PHRhYmxlIHdpZHRoPScx VVRzVhKsqQvpOV0sXo9nLI VyLWNvbGxh cHNl (more content not included)... Normal [facility] Consent for Treatmenton 12-31 Consent for Treatment [id number]#1.0 0CD:127 Normal [facility] HEMATOLOGYOrdered By: SYSTEM SYSTEM on 01-28-2022 Basophils/100 [...] 0.4 E9/L Normal 0.2 - 1.0 E9/L [facility] Neutrophils/100 WBC (Bld) 59.6 % Normal 36.0 - 75.0 % [facility] Neutrophils/Leukocyte s Auto (Bld) [Pure # fraction] 2.9 E9/L Normal 2.0 - 7.5 E9/L [facility] HEMATOLOGYOrdered By: Marek Arnold on 01-28-2022 Erythrocyte distribution width (RBC) [Ratio] 13.9 % Normal 10.9 - 14.2 % [facility] Hematocrit (Bld) [Volume fraction] 39.6 % Normal 37.7 - 49.0 % [facility] Hemoglobin (Bld) [Mass/Vol] 13.5 g/dL Normal 13.5 - 17.5 gm/dL [facility] MCH (RBC) [Entitic mass] 30.7 pg Normal 27.0 - 34.0 pg [facility] MCHC (RBC) [Mass/Vol] 34.2 g/dL Normal 31.4 - 36.0 gm/dL [facility] MCV (RBC) [Entitic vol] 89.7 fL Normal 80.0 - 100.0 fL [facility] Platelet mean volume (Bld) [Entitic vol] 8.9 fL Normal 6.4 - 10.8 fL [facility] Platelets (Bld) [#/Vol] 153.0 E9/L Normal 150.0 - 500.0 E9/L [facility] RBC (Bld) [#/Vol] 4.4 E12/L Normal 4.3 - 5.9 E12/L [facility] WBC corrected for nucl RBC Auto (Bld) [#/Vol] 4.9 E9/L Normal 4.0 - 11.0 E9/L [facility] eGFRon 01-28-2022 GFR/1.73 sq M.predicted among blacks MDRD (S/P/Bld) [Vol rate/Area] mL/min/{1.73_m2} Normal >=59 [facility] Comment on above: Order Comment: Order added by Discern Expert. Result Comment: eGFR is race adjusted. AA=. Performed By: #### 2 [id number] ####[facility] [id number] [place] [address] GFR/1.73 sq M.predicted among non-blacks MDRD (S/P/Bld) [Vol rate/Area] mL/min/{1.73_m2} Normal >=59 [facility] Comment on above: Order Comment: Order added by Discern Expert. Result Comment: Financial Analysis Consultant neil kidney disease could be indicated at eGFR's of less than 60 mL/min/1.73m2. Kidney failure is indicated at less than 15 mL/min/1.73m2. Performed By: #### 2 [id number] ####[facility] [address] [place] [address] Consent for Procedure/Surger yon 01-27-2022 Consent for Procedure/Surgery [id number]#1.0 0CD:127 Normal [facility] Progress Note-Physicianon Progress Note-Physician [id number]#1.0 0CD:127 Normal [facility] Pre-Certification Formon Pre-Certification Form [id number]#1.0 0CD:127 Normal [facility] Coding Summary.on 01-23-2022 Coding Summary. CD:[id number] Gh 0bWw+PGhlYWQ+BH7UIEXpQ 79ffJAanU9ED6bZMM4CNMV KGGHCCG9XVL5agDS7JFgqB 2VybiAv IzbejABxDZ05SOa1QQP4vY euHHnzpQ6ocPQmG0u2XfSk GS69yQ21BDacREMoMwJ8Ql ZpbjsgbWFy U6sdOqPhjRJuGwf+PHRhYm xlIHdpZHRoPScxMDAlJyBz nRfhZK7bAh0dRYVpRIYifH xhcHNlOiBj s3ngSMDsSOmgXB6nwNxaB4 AgzNX5JQWsc2x4Sc18wJI+ QAGkTOI8nKikEHrrb895Lh Qwb8afDHL5 eBXsQXtvKIH0U77wd1F9KZ YaVEZrXMB4dRV6yQ5ldCmn yekoA2TzuZGnBnW9LZO1cC QuoM1qaQee jiygdA1jYqs+Q92KNW0VIH AZJV3PFql7E7PpKeftbUV+ SB57LEBrRR72vZVvvJFnz7 essNc1QeOz YBRxVNW2rRlyZOaol5TkHM UzW40jcQSog0H1YGYekImz vMEjMfRjaWC0zO1kHFxmpe adz3lneedr Tczyi2ozje46tT88A95oJQ ihDBOfJFY0LUYoGHSneBfp fh1iyJ6lSz2+VYpod8ued2 bwqJe8IaYr OGVrraXsnRumNOF6j3CkJz 52C0LveSfuf3EkHeh7zw60 fJJhp7W7nVH5ONucPLAmsV 7jXHahKhI8 ZDHdGlJazE97pZYqFYbkOb 3qyBbkmPadXG4pUNTvenho PLMurR9oZLQraDCgbXblRD 4wNTBpbjtm q385VoFmJMF1HJWuzMBlG3 BrkA2lKmIxLQYzFUNxZ3Al oUCuXJcjN708DSqjTjZ7DT JeomIrJ3Pv RVMxvJcoVaO0o2K4Zd4Ze7 HdcwwrSJX9TAthEUQ2CpC8 JfHcJlX4A1QxDsu8BSDvkM sxCR2mN7Bb ZRGrhwkvcjyzwUL3WYJdSL TliG39uZLcJJcdIu9ut0O7 n245AIYiWGZaoR06Zs5ekM ogMTBwdCBU cN0pcwgmf8tcuzxkFfLvXD DfMJz8DAf9PTHxpLvvXoFh QOC3MuU0KYG9iBBpgM9jdP frnybjnN6k Oyc+F49ktM8fBGP7VTV3fk koTIUkmgTpBU47JG10W5Ny PjwvdGFibGU+PGRpdiBzdH coOA9eYgIk k6pjb5ZaPBwsJ1JrHZIcWH kvVby6YZUrWBR1fHP2sF8d HNXuQIeyn1S6xHF7G5Srvi Fzzs0yo8ex WSTnZKfjU91zeMCaq6O5MS YxbTE9COLjcAtnOvMaiA62 Oyc+EINpfDlnf7LkEyugb1 fyq3xklUy5 GhUeCQRchqQrbNjoZRU6l0 KzIq34L43mQMvpKZRpUKIp WEVrPOSmwHnwdq7nbY3oMe 8+PGNvbCB3 wVW5bI2nSXPvCdR0XVflT0 50KyXfjQCcDocfj1lrj0fj dNz6MpUzREKhutTdrXmxPY E3u7RlYs42 Y20oVBpvJCJyCFBuIAAbHB DroDbzra7kgY6rGm2+PC9j f4used19nQ49lQQ+PHRkIH T7oNbhFZih NDVqxJ7nHVppZeM0REAsGz WbaV19sEBxLCzvKh0kiYwk hHvxIB5wUWDedfvah580Kx Moy3xsYQWo lMCaKKxiMKG5F69oo6L1LI LjRZBnLPT3eBX8vA0myIsf bjogbGVmdDsgdmVydGljYW smQKuzM483 IHRvcDsnPlBhdGllbnQgTm KlJIv9L4KzEsr6VDGkfDcj QR9ajJKxAEdtMb5zzWiwpM loJR9qCJFv qpjcy966IkFhq4csSDGhkE FqRPgaIQH6E93wo9A6QUId AUFxQPK4gEJ6vX2vaLxgpm ogbGVmdDsg naTgfLzrQIyqSUulM160PP RvcDsnPkJpcnRoIERhdGU6 IW81SO31vLJpm0U0aUF5Z8 BhZGRpbmct yrbmxRN5NMJqRUChhS74Om 3qwUcbEh8pWMXmTTE3CZKn aTYgH0QlzA0sHqSaCZDvKW EfU5YwhFBo GNjfP613UWuuUgY3GSMgkh FcA6IyBLJhrAhqOyT9r5K7 Cd2HG6B7BX21AC28jEVms1 J0aOG0Y6Kp OWUbcshiglvfnGO3RHUqIF NymH67Ev7wlBkwEy3yIQJg HRF7MZCfjFUuF8NpoM3bWp AjMDAwMDAw B3UtgFYlJMuoO588NCmqLd D4PTPhvmCwG9XuTCHgcBjb ZeN2l9L6Ez1KNLa2XO97RY 00zERxu0R0 fOO4C4AjOGZwryvfxzlimO E0NAHfGHGfmT35Ge5jfOuf Vn0cWYHkHWH3IOEuiTXcA8 PnoA3gEdIf NMZoPOFjV5OisGBrMIbsW0 11TMzgEkU5YJWrzcOtF3Bq BLAqpJeuEvO5p7Y3Dx1GPP LiOQ42EDX9 sLW7IV98WE25H3OoExxfyN FibGU+PHRhYmxlIHdpZHRo MWhmFOQrOcEdlKvwFN7zJg 9yZGVyLWNv cUjnfSWpNoUln8kjCZQdWF erRZ1oeGwhU6AfxQR5XSOd l9w3Cj56X66fH4OccWD+PG MrtMN9jXS9 gB1yOzXoLmY7MXcnY019Po PkeFLpJzznd5kvb5hqeXc0 HxN0OHWpgmHlsTjlXCR1t8 HmSp90U41t IHdpZHRoPSIxNSUiIHZhbG ffht8vzZ1sAj0+PGNvbCB3 hTF9vJ0xBrFgVtG4HTjrV7 49InRvcCIv Goaiq7lqc9zgfIm6NiHePB BlgcAkrYtyBZX3n7VxAx68 N1OvkOaew0WnSub8db41vT Kvd6A8nUU9 X4EeDCHgzjbjxJOqmJsxFA 8pNUPlrfdhRHQikS7aNQMi P4s5WcIcSnK7LKleW2Zrxu U9NZXnrUYs HJisLEQ5K73rk3X7XWAeMC RwKMZ7zFC6uY4thRljusgu bGVmdDsgdmVydGljYWwtYW diJ976CXOx xZptSNSaqY7kSFPrmBEkjN rtVX2gXHHbdfxrCoLPDuFX AqiaFXOVQFZHLrYNBM84RE 18rUYzg4A1 dOH0A5GxNMFonjnbsvnssC Q2ZKCqMZVvlI42tQFzNFnm Im2vr0F5o866NURyKYPnpQ 26Qt3ajDhc UUGkiTOYhG1eqszzw8xbky aqQiNyUDRkICd1SLu5BKMt lFcmQmUuLMU2CdD0CKS7hO YxyZ2vpRxy oiecdU8zGko+MDUvMTEvMT p8QXkewZO+RPBlAUR9rWpd BXiiQAKgaA0yAJSzN3o6Kq OmOuE6ARrk F3BdPEYcizlzMi70bZ1gEa TkOlH1XCkdK0OsbdJ4MUPg nKZlXXhzZSY5Q28ag2E6RI MwMDAwMDA7 kYB0rS1tcNeouuomeXHmjR tievUfdRkaZLkxLMniR430 YLLuaDhhYnF5IRfhUKPrXC 01SW00oQBp k2L4bRU5A7XlKYTgemkpkq bjxHC9BZAbCFHkrN66mRLu OPkxDn3cv3D9o630APNtED TrcH84Vj6r gHsbCYWujVOPpC3wngkln8 jtrtbnMfEbANTyHSl6YCg8 EFGenAywUaUmGFJ9FgU1YN S7cCNbvJ8l jFrudlmmhW9dMwj+TWFsZT wvdGQ+JCPaJBK1nPnaFBnm ZZGawX6xCZHeO4y0RsJoRs V0ZVxdG3Zn ILAbssorIc19vQ0rZzCuBb Y7WQlfO0QnrzS4POPmoUZo LYdhXZS5G13ch9E2HWGsYZ XpBOS3jAY2 nL1uwUbosgjqwPKfwFlifb BadTeiYTsyLKdhS392XSSf qPzwRuQvF7DsnsbpHzbxrO Q+RB00oy27 E6VzAjipDlr5BRGhWCP4pD G8vZ9sGGJjZAztf4X5kVO3 F2UwnxXczk1fg9odJDZsNM huB65tlQWh q7X4QEJtdPN0VIBvoFyqCb ZzsZ90Poc+KRPxpJazl1Dp Sfxgf6ofs2xreCo7TtNmIT IgdmFsaWdu JOX3y8NwMo48X86dCQtoAE UcCJHkYOTiYYZmtOqcsv1i lD6gPp6+IGYpfRY3rYA1aI 7wPnPaWvW5 NBsyY563DdThxSBvZgskx8 qnf2mugTb2JhQwTLGavfWi xKhmFVU3m8MpQz30P7FvxF tqe7RpIvw2 en07cTGrf3M5iNZ4R8FzLQ FwjxojzWWqqJhzOL9cPNPc ijfwYYCoqJ9dYRAzT4f8Hx TxLaK7SJng D1HyezA5ODRsvPAvQRRmoF ZWyM1wecfex8rzcsinHwYk KOTrTGw3UPk3XANiwXjuTv OhMUI5OjN3 IAR7vOOmfT1bsRfrejewxZ 9wOyc+BTw0r2xvvGNaUP7l nMJ9SD82LC35uAYkp1H7jD D8O5VgBULg zzngzevcaZX7SGKkLAUovS 40Mx3toRlyAh0rKMTxYFI7 LKZiaBRiD8BxqR1vGdTeVC HwFATgR0Xc dQHvSBwbU061KSaiGxM8YZ ZhweInU8MzMOHnsFrwCzK8 t1B7Mc8HWG41MI21RI03dR Rzs9G7fMU2 U6DhIELsyuhoqlhmqCS1ZX SpPEHywA40Zq3dtYieWx6j EFWmYJC3WYYamRBdE5ShdS 9yOiAjMDAw MXHlM9EbqZBgZLcmZ436YX kgVgA6ECBeabCeT7HlCKFi xEbuRtB1b8Z3Wo2ZMw64AP 29ZS05gZPt y8M0eER7U4KlHMElvivpdd vdtXL0LVDrYOQcbU65Qi6z xKofSe5cVPHcFBH5CJNemQ UxE3NmnU4m WkAbXOVuRQTnU5TcvMWqXL hcF270VXgzWfJ8UFDtzeTn M6RfLUYwoOypNpY9w1I4Gi 6GZJexgtq5 O7XeKbovfPU+WJ37SVJdME 81xAKndNWax2zthHn0UeBi AZYtKEW6hJblEXfnu3GgVN PfZ87jvJYa c2U6 (more content not included)... Normal [facility] Consent for Treatmenton 12-30 Consent for Treatment [id number] 2080 [id number]#1.0 0CD:127 Normal [facility] Heart and Vascular Office/Cl inic Noteon 01-23-2022 [...] in office. He had echocardiogram performed at [facility], which was normal. He was ordered [...] protocol. [1] patient was then referred to [place] and was placed on sotalol followed by [...] with speaking. 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 He is taking and tolerating his medicines well. He has had no exertional chest pain symptoms prior to his COVID infection. 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 His daughter works here at [employer] and was present for his visit. Patient is now her (more content not included)... Normal [facility] Comment on above: Result Comment: Elec tronically Signed By: Camilo STARK, Kushal Lenz\Date and Time Signed: 01/23/22 14:23 EDT Stress EKG Tracingson 2021 Stress EKG Tracings [id number]#1. 00CD:127 Normal [facility] NM Myocardial Spect Part 2on 01-22-2022 NM [...] Stress Dose (mCi Tc99M Cardiolite): 29.9 Normal [facility] Consent for Treatmenton 12-30 Consent for Treatment [id number] 2079 [id number]#1.0 0CD:127 Normal [facility] CT CHEST WO CONon 01-19-2022 CT CHEST [...] ANTONIO Date: 2022-01-19 17:17 Normal [facility] HEMOGLOBINon 01-19-2022 Hemoglobin (Bld) [Mass/Vol] 13.2 g/dL Critically low 14.0-18.0 [facility] Comment on above: Performed By: #### H GB #### [facility] [address] [place] [address] Dr. Maria T Canela Pre-Certification Formon Pre-Certification Form [id number]#1. 00CD:127 Normal [facility] TSH - Thyroid Stimulating Ho mckenna, Serumon 12-31-2021 TSH Qn 1.65 m[IU]/L See Below [facility] [address] DO Work Phone: Comment on above: Reference Range: 0.4 4 - 3.98 TSH testing is performed using different testing methodology at [facility] than at other [facility]. Direct result comparisons should only be made within the same method. Tobacco Screening.on 022 Adult depression screening assessment No [facility] [address] DO Work Phone: Fall risk assessment a) No falls within the last year [facility] [address] DO Work Phone: Tobacco use status [facility]PH[facility] b) No [facility] [address] DO Work Phone: Outside Recordson 12-30-2021 Outside Records [id number] 20 [id number]#1.0 0CD:127 Normal [facility] Coding Summary.on 12-24-2021 Coding Summary. CD:[id number] Gh 0bWw+PGhlYWQ+JK5LTCBmS 53hoHEycZ4WX8yHAZ3WIFD XPYFGYT7UUD7cpAZ1YNroG 2VybiAv ZltzgNCrQE82OTj6HTL1yD ooAHehwS0mgTGtR0r3KcGr PZ31vI22TAuzRADwSnO5Rq ZpbjsgbWFy U5xrItNflLWfWrt+PHRhYm xlIHdpZHRoPScxMDAlJyBz yZlrHI4yHj5xOXJxVFQidK xhcHNlOiBj n2sgECNiJTjyDK1ocEwqW5 GmqII7NISmw2z4Ug46zWQ+ LQNdQWN4zDvlWJsum552Eo Noa9wgFNB8 dBGjATakQOS7H09xz6U2DQ UzBWMaYUU9nOR6fE1xrFcw cuitL9SilJPvRjL1ATC8lY TzfJ1pzGcf yuebrH8mGoz+E05GGM4ARG MCIN1EBju5F2EpXdzpwIF+ XH60JRWfCC31rIDhwZLzh3 lysVo5AiJy KFApJNA5rNciKPqve5GpJH ZcX51tpJRqj5X5OXDlwSzp cQYcKuNwbCJ8fJ5mHUaxgg tjx5hvorzg Oduiu7kxqj30kA92F44fFC bfBAMuFNV0JBErXNBtpIfa ik0cfN8hIg9+ZQern1yyw1 ndgUs8EaDt SQWxzySmkUpsSPZ5c9RsOh 81N8WhnYsrn0NyJwa3tc79 vAUfd3N4jGQ3OIbaPHWtcW 0pNAkvXxR5 YYTcUaGauN72qZRxLTtnQk 5lbNrjlNerHM4hNSRxcieh YUMgrD6zWMOokANyhLpqWE 4wNTBpbjtm u674TvEbFOU5WGLmfRVcC9 WooU7kNtJpAFCpMDRqP1Tf xJEsZXtzM532MHobNwC3KI KdsgLyW8Go GAWzpLpwPhU6r1J3Qw6Gx5 VdatwrZLX3GVhgWIV3ClM1 JpMaOjG7P7ZzYcb5WICmbK jaLU1sV2Wc ADKnusyhmulwjFL8HDJoIS MyzW90oLWbJArhYe9ar8O6 x367YTKdEBDvbP60Tc2rrP ogMTBwdCBU aQ2houkxn3jzjamlQcRcEX EwFNd8XJi8AKSsvGzfRlJx TRB0PdP5QDT7mALtoE9pwX nzpcavtR4e Oyc+X35bqV8cSNA6GIM2rv smENVewpYgGI67CX34X6Ak PjwvdGFibGU+PGRpdiBzdH wnQB1yKaAg q4lvs1UyPYsrK4MySFLiTP mnFjy7RVHcGZT6tPE3xD6z DENvWIqyo3C6lCR6R9Askc Flwz5ea4wq ENNtLCqpY76byVCud4I5NY ClpQJ9RAQfkHldFdHldT94 Oyc+RXGnzTvuj2VhHdwte7 uin7ummXj8 OiXuHWXqtyLhfHbnGSW1e3 JqGx97S47aXBirEDXnTNNv VWDiWGSmeDbrub3pkN8gKv 8+PGNvbCB3 fRJ1zD0tETHbIaB8QZfyZ2 42ZfHkeRByCnnxs9ltd5ee rAv5GsNgOFKdvnRzwWlhAK H1w8FzVr34 M37qNUvoXJGeTMUjNFBvXF HefTqyvv6pfI4xNq0+PC9j z5tmtt72fK84mVV+PHRkIH Y9lQfwEKbk HCDkpS2dHOblBmP9EEMyKu EwhZ48wMVwXUpqKs0fkQib zNsuFI3cIQMjvahzr250Es Gvs0dgGKKv yAXrKLhuRUE2C91hn9P9WD XkECGcNHW5jIV5lR9ucJnh bjogbGVmdDsgdmVydGljYW khXQngA788 IHRvcDsnPlBhdGllbnQgTm ZgWNa8N6FoLsc2RJZfdCqe IP2axICgGTxsQc0deLngeT ceCP8kYJKk jybqh934YqDss9hrPOVzoV RuYPmyNBS0Q32hr2J0XAYw ZVDuDRQ6cMI4wU0ilYtjba ogbGVmdDsg lrVkoSquAIibGAnaO994JJ RvcDsnPkJpcnRoIERhdGU6 PR73VH65cKEqh6I8wXA9T1 BhZGRpbmct ayvbkDA9PYBdUYWavW22Zy 4rhFyaMv5jIDGhUVI6WSMv eGToK6QwuE5aMfReLDEyGY QaS5DjePAg EXcpX290XZpaZqQ6KRFxcu RnD9LiRHBwaRbtShX7j0Q5 Me3EJ5Z1UO84FM48jWGij6 P1wIZ6O0Un AHYiwbhymlbxdKE5RQViQX DoeZ20Kd1igGcvEy3dKXYx EDN2AZOhkUBkM0XzuC2aLe AjMDAwMDAw Z4ZtfDWsVQkoD042ECxxXy L1REHsfgHiZ7SfILXrlDop AhB3k9S4Fy6UWIf7YH92HB 47mXLdm9V6 lMH3Q6RiAISxtbwbytmqxI T4MTWhKWKwuZ75Dv5yxOlk Vr4lOTQcMYI3TFBbeMKiE4 OaxR0uSlMh UHZcOCFjE4OjoLLvOUxbV0 57PLhaItU2ALMjklSaU8Gt EWOgwBkoFbP0c6K9Ul6MCK XfBU04ZRK7 sCF7OE25OZ51K2YqEfgbgX FibGU+PHRhYmxlIHdpZHRo PDuhTSZxUwDcbUrcXT1iZm 9yZGVyLWNv lJsenZHoBkCge7cwKASrCI jqFV5tbLsgL3UkdKD5RDPb h2r4Hz09A21kA0OjaZM+PG JpsKV7gNI6 qX4mRhAcZxC1MVveS988Vh SyiYZiAfxyj6cet2xemQz8 LmZ3BMVfvzAscXhaJSA1g0 OaNm98A10e IHdpZHRoPSIxNSUiIHZhbG uwvq4wlO4jIf5+PGNvbCB3 pKL8wJ1pQwRlUdY4BTwyZ8 49InRvcCIv Nwmcp3lkx6eaxCo5DvPjKJ AkwvKlxZmgLNX8g0DkHk39 H3VnmGreh6YyDvp4vk43pQ Knk6N8aNR8 M9WhMEQdbvwzbFSddVqwIA 2sFPTdyekdUEPgyV4gPFPk R9z2RsXfTyL8HOwxL9Wxwe K0OGHuaFCz YLdpSCE9I75mx2D9RIPcEU TcLKS5nEZ4uP8tlGbeeqlc bGVmdDsgdmVydGljYWwtYW ozH154AKYp wCbvTNLzzI1yNASyySIskH agKY1qTGJkatnaIlSNDnVD DktlXUPIICOEAwKACR14AD 96qQTqu1W5 dGO8A3QuSGDbghccnvnocV X9JFRtXCEmhG34hLYnWHst Qk9fu6N1a248XKYaKKSxvE 03Ba6clMui YZMtaIVBaH4zisztu2jqsn ahJlPzTWVaLJq5OQx4HGTn sLvsAwFjLDA7MhY6XRY2zS DaoI4ptMof jzjylK4mOpv+MDUvMTEvMT g7MRjkiVM+ETMuPIO1jLxg PBeiNZMpzT1oFSGmT7v5Dq KuIaJ8MCti B9KdAWLlfbinPq18cX7cWb TbLeS1ISpjT6LfhuC9OKIh qDMnYNqjIJM7F21ci3T7XL MwMDAwMDA7 nTP4wM6ylXtdqjplhNCnpY tlcrCkvWbkQDksJLasV742 OWIvoBtfZoM0BFqgFBSwMZ 42XJ37mIBa x9K7mIO8Q9XvCAQyisdqmu xreRO6WOWuTCScmE38kCYn WUhbOq7vi2A7a476GSUvRG LmwJ41Vk5g cXorCBJnqXGScB3wnbgeq3 ilamfrDkYiRKPcXYv0FRl3 KNYchXztTfYyYXL3YyE4CW W5lVSmqC7m mNahtomaqP0lNjf+TWFsZT wvdGQ+NNLsDGK7eZssVUbq MFMkdR1mONRzM4v3QeEsPd O0JZusU5Ev ZZNzhcgdMa72eL5xEbPyRj O8EExmA3VfiuE6GRHxgSTx LRgdVIS2N56lz7M2WLCbES YoZTI5eHW0 fM2onAtjqorxxZDngWwglf ZmbBvdTKddFPebJ713DALb tOtnXc53wNIgxXspwiF2Z5 RkPjwvdHI+ NA49TUJtIG54kQVjhQSoi7 nveTj7EaNsPOJqRAN0uXsw FTups0QgRWKyG12ckUOvj3 G5UYQpoAar yGQlIyXxmIU4qW1jIMjguv zpn1zbimbmXiwgw5biof17 hL33H36sGQavOWQxPVImIN UiIHZhbGln tr5huX4nBf5+XZDbpCN4dG S5fQ2uOlPjEbJ4EEzqT388 RiPtbPJnGrzzt4psc1ystN c4JuVqCNIl mqXmxJyoLYO2o7ZjWg04W1 9sIHdpZHRoPSIyMCUiIHZh qVklgj8qnU0uUn8+PC9jb2 cubl07eJ65 dHI+FBYpKGR5zBjrAAbfKX UwxT2pWItfIlQ9QFXvXnIb yM41wXJoKKieAq6xiLijoG etFN2gBGJi kjtxs547RiSyq2zdMPVdcG NyBAxiOXB8N99fu3W7XVTu VRZvOSO4rFB2fP0oxHeivh ogbGVmdDsg dkBeyVcgYGjsKZiuM188BU VeuWhvUfRaiTXrQ2ekjyPL FL8oMrdkoEG+SAVbJYV0mX xlPSdwYWRk kX0cPIFtA6p3SpDgJcH1WO koI7ZzneA7EVAmvWSsXDKd qTYAaY3hwnagq7oyutqiOp AwMDAwMDt0 VDk9UEShoOgxFeQnKZF5Bm X4FNY8iOBokB2wgCfvpnuo vG4yVic+RklOOjwvdGQ+PH RwZTL3vJoe AMsnDTOjaC5iHPYkE1t0Vg KnDyQ0EDgcM0RolgB3TIWe eJObQKTqwOJKrR9xwigkx3 xvcjogIzAw UTAiUWo5QXa4GBQkiEqfRs DuOZE7UrY8NDJ5zWZqwO9x vQepqgrljE7zQkp+TVJOOj wvdGQ+PHRk GZJ4mJfaQLwcHHFlgN2cVW ZdE2z1DqKnNjL8JKmrS7Ok xeP9GJAalODwJJHypNFWvC 6iewzlf3zx xwayRoWuVQAxPXq2BKo7GR WzpJncTbHeEDW4BeK0DUP3 pRCnwS0gtJhijejjzO1uFb c+COZ7MEN3 EO46LY77Q0AgUtzoyQZtrQ U+PHRhYmxlIHdpZHRoPScx PBYzYhIorEjgLU6uXo4aFP VyLWNvbGxh cHNl (more content not included)... Normal [facility] Consent for Treatmenton Consent for Treatment [id number] 0CD:127 Normal [facility] Heart and Vascular Office/Cl inic Noteon 12-05-2021 Heart and Vascular Office/Clinic Note History of Present Illness Mr. Campos is a 66 year old male, morbidly obese with obstructive sleep apnea who uses CPAP, hypertension, unknown cholesterol but on atorvastatin, lifelong non-smoker, who returns to [facility] office for follow up after extensive cardiac testing. He was last seen in the office by Dr Saldaña for further evaluation of labile BP, near syncope, dizziness, and dyspnea on exertion. He had a 12 lead EKG which revealed atrial fibrillation. His orthostatic VS were negative in office. He had echocardiogram performed at [facility], which was normal. He was ordered [...] with speaking. 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 He is taking and tolerating his medicines well. He has had no exertional chest pain symptoms prior to his COVID infection. 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 His daughter works here at [employer] and was present for his visit. In [...] perfusion R (more content not included)... Normal [facility] Comment on above: Result Comment: Elec tronically Signed By: Camilo STARK, Kushal Moran.br\Date and Time Signed: 12/05/21 15:17 EDT Progress Note-Physicianon Progress Note-Physician [id number]. 00CD:127 Normal [facility] Tobacco Screening.on 021 Fall risk assessment b) One or more fall s in the last year [facility] [address] DO Work Phone: Tobacco use status CP b) No [facility] 320 DO Work Phone: Tobacco Screening. Yes [facility] [facility] 320 DO Work Phone: COVID-19 Lab [facility] 10-05-19 21 SARS-CoV-2 (COVID-19) RNA PATTIE+probe Ql (Unsp spec) Not detected Normal Not Detected [facility] Comment on above: Order Comment: Healt hcare Worker?: N Result Comment: This nucleic acid amplification test was developed and its performance characteristics determined by [employer] Nucleic acid amplification tests include RT- PCR [...] detected) result in this assay. PERFORMED BY: [address] [address] PATHOLOGIST VALVE STEAMER SAMEER HARDIN M.D. Performed By: #### C ORONAVIRUS #### [facility] , Vital Signs Date Time Vital Sign Value Performing Clinician Facility 07-19-2023 15:30-0500 Body height 177.8 cm Margret Stevens MD Work Phone: [facility] 07-19-2023 15:30-0500 Body mass index (BMI) [Ratio] 52.37 kg/m2 Margret Stevens MD Work Phone: [facility] 07-19-2023 15:30-0500 Body weight 165.56 kg Margret Stevens MD Work Phone: [facility] 07-19-2023 15:30-0500 Diastolic blood pressure 88 mm[Hg] Margret Stevens MD Work Phone: [facility] 07-19-2023 15:30-0500 Heart rate 65 /min Margret Stevens MD Work Phone: [facility] 07-19-2023 15:30-0500 Systolic blood pressure 138 mm[Hg] Margret Stevens MD Work Phone: [facility] 05-07-2023 11:45-0500 Body height 175.26 cm Kelly Jane Other [employer] Other 05-07-2023 11:45-0500 Body mass index (BMI) [Ratio] 53.3 kg/m2 Kelly Lucinda Other [employer] Other 05-07-2023 11:45-0500 Body temperature 97.2 [degF] Kelly Lucinda Other [employer] Other 05-07-2023 11:45-0500 Body weight 163.75 kg Kelly Lucinda Other [employer] Other 05-07-2023 11:45-0500 Diastolic blood pressure 93 mm[Hg] Kelly Lucinda Other [employer] Other 05-07-2023 11:45-0500 Respiratory rate 18 /min Kelly Lucinda Other [employer] Other 05-07-2023 11:45-0500 SaO2% (BldA) [Mass fraction] 95 % Kelly Lucinda Other [employer] Other 05-07-2023 11:45-0500 Systolic blood pressure 159 mm[Hg] Kelly Lucinda Other [employer] Other 03-08-2023 09:30-0400 Body height 175.26 cm Beena Benítez Other [employer] Other 03-08-2023 09:30-0400 Body mass index (BMI) [Ratio] 55.67 kg/m2 Beena Benítez Other [employer] Other 03-08-2023 09:30-0400 Body weight 171.01 kg Beena Benítez Other [employer] Other 03-08-2023 09:30-0400 Diastolic blood pressure 85 mm[Hg] Beena Benítez Other [facility] [employer] Other 03-08-2023 09:30-0400 Systolic blood pressure 145 mm[Hg] Beena Benítez Other [facility] [employer] Other 02-15-2023 14:33-0400 Body height 177.8 cm Beena Benítez Work Phone: [facility] [employer] 250 DO Work Phone: 02-15-2023 14:33-0400 Body mass index (BMI) [Ratio] 53.38 kg/m2 Beena Benítez Work Phone: [facility] [employer] 250 DO Work Phone: 02-15-2023 14:33-0400 Body surface area Derived from formula 2.72 m2 Beena Benítez Work Phone: [facility] [employer] 250 DO Work Phone: 02-15-2023 14:33-0400 Body weight 168.74 kg Beena Benítez Work Phone: [facility] 250 DO Work Phone: 02-15-2023 14:33-0400 Diastolic blood pressure 82 mm[Hg] Beena Benítez Work Phone: [facility] 250 DO Work Phone: 02-15-2023 14:33-0400 Heart rate 64 /min Beena Benítez Work Phone: [facility] 250 DO Work Phone: 02-15-2023 14:33-0400 Systolic blood pressure 138 mm[Hg] Beena Benítez Work Phone: [facility] 250 DO Work Phone: 11-23-2022 17:11-0400 Diastolic blood pressure 84 mm[Hg] Beena Benítez Work Phone: [facility] 250 DO Work Phone: 11-23-2022 17:11-0400 Systolic blood pressure 138 mm[Hg] Beena Benítez Work Phone: [facility] 250 DO Work Phone: 11-23-2022 15:32-0400 Body height 177.8 cm Beena Benítez Work Phone: [facility] 250 DO Work Phone: 11-23-2022 15:32-0400 Body mass index (BMI) [Ratio] 53.95 kg/m2 Beena Benítez Work Phone: [facility] 250 DO Work Phone: 11-23-2022 15:32-0400 Body surface area Derived from formula 2.73 m2 Beena Benítez Work Phone: [facility] 250 DO Work Phone: 11-23-2022 15:32-0400 Body weight 170.55 kg Beena Benítez Work Phone: [facility] [facility] 250 DO Work Phone: 11-23-2022 15:32-0400 Diastolic blood pressure 90 mm[Hg] Beena Benítez Work Phone: [facility] 250 DO Work Phone: 11-23-2022 15:32-0400 Heart rate 82 /min Beena Benítez Work Phone: [facility] 250 DO Work Phone: 11-23-2022 15:32-0400 Systolic blood pressure 148 mm[Hg] Beena Benítez Work Phone: [facility] 250 DO Work Phone: 10-05-2022 14:45-0400 Body height 177.8 cm Beena Benítez Work Phone: [facility] 250 DO Work Phone: 10-05-2022 14:45-0400 Body mass index (BMI) [Ratio] 53.81 kg/m2 Beena Benítez Work Phone: [facility] 250 DO Work Phone: 10-05-2022 14:45-0400 Body surface area Derived from formula 2.73 m2 Beena Benítez Work Phone: [facility] 250 DO Work Phone: 10-05-2022 14:45-0400 Body weight 170.1 kg Beena Benítez Work Phone: [facility] 250 DO Work Phone: 10-05-2022 14:45-0400 Diastolic blood pressure 84 mm[Hg] Beena Benítez Work Phone: [facility] 250 DO Work Phone: 10-05-2022 14:45-0400 Heart rate 52 /min Beena Benítez Work Phone: [facility] 250 DO Work Phone: 10-05-2022 14:45-0400 Systolic blood pressure 126 mm[Hg] Beena Benítez Work Phone: [facility] 250 DO Work Phone: 08-17-2022 15:25-0400 Body height 177.8 cm Beena Benítez Work Phone: [facility] 250 DO Work Phone: 08-17-2022 15:25-0400 Body mass index (BMI) [Ratio] 53.38 kg/m2 Beena Benítez Work Phone: [facility] 250 DO Work Phone: 08-17-2022 15:25-0400 Body surface area Derived from formula 2.72 m2 Beena Benítez Work Phone: [facility] 250 DO Work Phone: 08-17-2022 15:25-0400 Body weight 168.74 kg Beena Benítez Work Phone: [facility] 250 DO Work Phone: 08-17-2022 15:25-0400 Diastolic blood pressure 78 mm[Hg] Beena Benítez Work Phone: [facility] 250 DO Work Phone: 08-17-2022 15:25-0400 Heart rate 66 /min Beena Benítez Work Phone: [facility] 250 DO Work Phone: 08-17-2022 15:25-0400 Systolic blood pressure 124 mm[Hg] Beena Benítez Work Phone: [facility] 250 DO Work Phone: 07-06-2022 15:45-0500 Body height 177.8 cm Beena Benítez Work Phone: [facility] 250 DO Work Phone: 07-06-2022 15:45-0500 Body mass index (BMI) [Ratio] 53.38 kg/m2 Beena Benítez Work Phone: [facility] 250 DO Work Phone: 07-06-2022 15:45-0500 Body surface area Derived from formula 2.72 m2 Beena Benítez Work Phone: [facility] 250 DO Work Phone: 07-06-2022 15:45-0500 Body weight 168.74 kg Beena Benítez Work Phone: [facility] [employer] 250 DO Work Phone: 07-06-2022 15:45-0500 Diastolic blood pressure 80 mm[Hg] Beena Benítez Work Phone: [facility] [employer] 250 DO Work Phone: 07-06-2022 15:45-0500 Heart rate 64 /min Beena Benítez Work Phone: [facility] [address] 250 DO Work Phone: 07-06-2022 15:45-0500 Systolic blood pressure 118 mm[Hg] Beena Benítez Work Phone: [facility] [address] 250 DO Work Phone: 06-15-2022 11:15-0500 Body height 175.26 cm Beena Benítez Other [employer] Other 06-15-2022 11:15-0500 Body mass index (BMI) [Ratio] 55.81 kg/m2 Beena Benítez Other [employer] Other 06-15-2022 11:15-0500 Body weight 171.46 kg Beena Benítez Other [employer] Other 06-15-2022 11:15-0500 Diastolic blood pressure 88 mm[Hg] Beena Benítez Other [employer] Other 06-15-2022 11:15-0500 SaO2% (BldA) [Mass fraction] 97 % Beena Benítez Other [employer] Other 06-15-2022 11:15-0500 Systolic blood pressure 130 mm[Hg] Beena Benítez Other [employer] Other 03-09-2022 11:20-0400 Blood Pressure Location Kushal Page [facility] 03-09-2022 11:20-0400 Diastolic blood pressure 76 mm[Hg] Kushal Page [facility] 03-09-2022 11:20-0400 Heart rate 60 /min Kushal Page [facility] 03-09-2022 11:20-0400 Respiratory rate 18 /min Kushal Page [facility] 03-09-2022 11:20-0400 SaO2% (BldA) [Mass fraction] 98 % Kushal Page [facility] 03-09-2022 11:20-0400 Systolic blood pressure 140 mm[Hg] Kushal Page [facility] 02-05-2022 06:41-0400 Blood Pressure Location Kushal Page [facility] 02-05-2022 06:41-0400 Diastolic blood pressure 82 mm[Hg] Kushal Page [facility] 02-05-2022 06:41-0400 Heart rate 56 /min Kushal Page [facility] 02-05-2022 06:41-0400 Respiratory rate 20 /min Kushal Page [facility] 02-05-2022 06:41-0400 SaO2% (BldA) [Mass fraction] 100 % Kushal Page [facility] 02-05-2022 06:41-0400 Systolic blood pressure 150 mm[Hg] Kushal Page [facility] 01-23-2022 14:04-0400 Blood Pressure Location Kushal Page [facility] 01-23-2022 14:04-0400 Diastolic blood pressure 67 mm[Hg] Kushal Page [facility] 01-23-2022 14:04-0400 Heart rate 70 /min Kushal Page [facility] 01-23-2022 14:04-0400 Respiratory rate 18 /min Kushal Page [facility] 01-23-2022 14:04-0400 SaO2% (BldA) [Mass fraction] 97 % Kushal Page [facility] 01-23-2022 14:04-0400 Systolic blood pressure 140 mm[Hg] Kushal Page [facility] 12-31-2021 11:54-0400 Body height 177.8 cm Beena Benítez Work Phone: [facility] 320 DO Work Phone: 12-31-2021 11:54-0400 Body mass index (BMI) [Ratio] 52.95 kg/m2 Beena Benítez Work Phone: [facility] 320 DO Work Phone: 12-31-2021 11:54-0400 Body surface area Derived from formula 2.71 m2 Beena Benítez Work Phone: [facility] 320 DO Work Phone: 12-31-2021 11:54-0400 Body weight 167.38 kg Beena Benítez Work Phone: [facility] 320 DO Work Phone: 12-31-2021 11:54-0400 Diastolic blood pressure 84 mm[Hg] Beena Benítez Work Phone: [facility] 320 DO Work Phone: 12-31-2021 11:54-0400 Heart rate 67 /min Beena Benítez Work Phone: [facility] 320 DO Work Phone: 12-31-2021 11:54-0400 Systolic blood pressure 138 mm[Hg] Beean Benítez Work Phone: [facility] 320 DO Work Phone: 12-05-2021 15:01-0400 Blood Pressure Location Kushal Page [facility] 12-05-2021 15:01-0400 Diastolic blood pressure 69 mm[Hg] Kushal Page [facility] 12-05-2021 15:01-0400 Heart rate 70 /min Kushal Page [facility] 12-05-2021 15:01-0400 Respiratory rate 18 /min Kushal Page [facility] 12-05-2021 15:01-0400 SaO2% (BldA) [Mass fraction] 98 % Kushal Page [facility] 12-05-2021 15:01-0400 Systolic blood pressure 118 mm[Hg] Kushal Page [facility] 04-23-2021 16:19-0500 Body height 177.8 cm Beena Benítez Work Phone: [facility] 320 DO Work Phone: 04-23-2021 16:19-0500 Body mass index (BMI) [Ratio] 51.94 kg/m2 Beena Benítez Work Phone: [facility] 320 DO Work Phone: 04-23-2021 16:19-0500 Body surface area Derived from formula 2.69 m2 Beena Benítez Work Phone: [facility] 320 DO Work Phone: 04-23-2021 16:19-0500 Body weight 164.2 kg Beena Benítez Work Phone: [facility] 320 DO Work Phone: 04-23-2021 16:19-0500 Diastolic blood pressure 62 mm[Hg] Beena Benítez Work Phone: [facility] 320 DO Work Phone: 04-23-2021 16:19-0500 Heart rate 65 /min Beena Benítez Work Phone: [facility] 320 DO Work Phone: 04-23-2021 16:19-0500 Systolic blood pressure 108 mm[Hg] Beena Benítez Work Phone: [facility] 320 DO Work Phone: 10-09-2020 14:30-0400 Diastolic blood pressure 66 mm[Hg] Beena Benítez Other Phone: [facility] 10-09-2020 14:30-0400 Heart rate 50 /min Beena Benítez Other Phone: [facility] 10-09-2020 14:30-0400 Systolic blood pressure 133 mm[Hg] Beena Benítez Other Phone: [facility] 10-09-2020 13:00-0400 Body temperature 96.8 [degF] Beena Benítez Other Phone: [facility] 10-09-2020 13:00-0400 Respiratory rate 19 /min Beena Benítez Other Phone: [facility] 10-09-2020 13:00-0400 SaO2% (BldA) [Mass fraction] 98 % Beena Benítez Other Phone: [facility] 10-09-2020 02:15-0400 Body weight 159.4 kg Beena Benítez Other Phone: [facility] Encounters Encounter Date Encounter Type Care Provider Facility Start: 07-19-2023 End: 07-19-2023 ambulatory [facility] Start: 07-19-2023 End: 07-19-2023 Office outpatient visit 25 minutes Margret Stevens MD Work Phone: [facility] Comment on above: Paroxysmal atrial fi brillation (CMS/HCC); Coronary artery disease involving [place] coronary artery of [place] heart without angina pectoris; Ischemic cardiomyopathy; Chronic systolic congestive heart failure, NYHA class 2 (CMS/HCC); Hypercoagulable state due to paroxysmal atrial fibrillation (CMS/HCC); Medication course changed; Mixed hyperlipidemia; High risk medication use Start: 05-07-2023 End: 05-07-2023 ambulatory Kelly Lucinda Other [employer] Other Start: 05-07-2023 Office outpatient vi sit 15 minutes Kelly Jane [facility] Start: 05-07-2023 Telephone encounter Beena Benítez [facility] Start: 03-08-2023 End: 03-08-2023 ambulatory Beena Benítez Other [employer] Other Start: 03-08-2023 Office outpatient vi sit 25 minutes Beena Benítez [facility] Start: 02-15-[address] Beena Benítez Facility: Start: 02-03-2023 Rx Renewal Beena Benítez Work Phone: [facility] 250 DO Work Phone: Start: 01-28-2023 End: 01-28-2023 ambulatory Beena Benítez Other [employer] Other Start: 01-28-2023 Telephone encounter Beena Benítez [facility] Start: 12-03-[address] Beena Benítez Facility: Start: 11-30-[address] Beena Benítez Facility: Start: 11-30-2022 Patient encounter procedure Beena Benítez Work Phone: [facility] 250 DO Work Phone: Start: 11-23-2022 Office outpatient ne w 45 minutes Beena Benítez Work Phone: [facility] 250 DO Work Phone: Start: 11-23-[address] Margret Newman ty: Start: 10-27-2022 End: 10-28-[address] DOCTOR HOLDEN Facility:[facility]1 Start: 10-12-2022 Telephone encounter Beena echavarria Work Phone: [facility] 250 DO Work Phone: Start: 10-05-2022 Office outpatient vi sit 25 minutes Beena Benítez Work Phone: [facility] 250 DO Work Phone: Start: 10-05-[address] Margret Newman ty: Start: 09-22-2022 Patient encounter procedure Beena Benítez Work Phone: [facility] 250 DO Work Phone: Start: 09-17-2022 Chart Update Beena Benítez Work Phone: [facility] 250 DO Work Phone: Start: 09-17-2022 End: 09-17-2022 ambulatory Beena Benítez Other [facility] [employer] Other Start: 09-17-2022 Telephone encounter Beena Benítez [facility] Start: 09-10-[address] Beena Benítez Facility:[id number] Start: 09-08-2022 End: 09-09-2022 Pre-admission assessment Kushal Page [facility] Start: 08-17-2022 Office outpatient vi sit 25 minutes Beena Benítez Work Phone: [facility] 250 DO Work Phone: Start: 08-17-[address] Margret Newman ty: Start: 07-20-2022 End: 07-21-[address] DOCTOR HOLDEN Facility: Start: 07-06-2022 Office outpatient vi sit 25 minutes Beena Benítez Work Phone: [facility] 250 DO Work Phone: Start: 07-06-[address] Margret Newman ty: Start: 06-23-2022 End: 06-23-2022 ambulatory Beena Benítez Other [employer] Other Start: 06-23-2022 Telephone encounter Beena Benítez [facility] Start: 06-15-2022 Office outpatient vi sit 25 minutes Beena Benítez [facility] Start: 06-15-2022 End: 06-16-[address] BEENA BENÍTEZ [facility] [employer] Other Start: 06-02-2022 End: 06-02-2022 ambulatory Beena Benítez Other [email or web address] Other Start: 06-02-2022 Telephone encounter Beena Benítez [facility] Start: 03-09-2022 End: 03-10-2022 ambulatory XXXX NONE Facility:[facility] Start: 03-09-2022 End: 03-09-2022 Patient encounter procedure Kushal Page [facility] Start: 02-05-2022 End: 02-05-2022 ambulatory MD Kushal Page Facility:[facility] Start: 02-05-2022 End: 02-05-2022 Admission to same day surgery center Kushal Page [facility] Start: 01-28-2022 End: 01-29-2022 ambulatory MD Kushal Page Facility:[facility] Start: 01-28-2022 End: 01-28-2022 Patient encounter procedure Kushal Page [facility] Start: 01-23-2022 End: 01-24-2022 ambulatory MD Kushal Page Facility:[facility] Start: 01-23-2022 End: 01-23-2022 Patient encounter procedure Kushal Page [facility] Start: 01-21-2022 End: 04-23-2022 ambulatory MD Kushal Page Facility:[facility] Start: 01-21-2022 End: 04-22-2022 Recurring Kushal Page [facility] Start: 01-19-2022 Rx Renewal Beena Benítez Work Phone: [facility] 250 DO Work Phone: Start: 01-19-2022 End: 01-20-[address] ALFARO LISTED REQUEST Facility: Start: 01-01-2022 Chart Update Beena Benítez Work Phone: [facility] 320 DO Work Phone: Start: 12-31-2021 Patient encounter procedure Beena Benítez Work Phone: [facility] 320 DO Work Phone: Start: 12-31-2021 Current tobacco non- user cad cap copd pv dm Beena Benítez Work Phone: [facility] 320 DO Work Phone: Start: 12-05-2021 End: 12-06-2021 ambulatory MD Kushal Page Facility:[facility] Start: 12-05-2021 End: 12-05-2021 Patient encounter procedure Kushal Page [facility] Start: 02-07-2022 Rx Renewal Beena Benítez Work Phone: [facility] 250 DO Work Phone: Start: 04-23-2021 Office outpatient vi sit 25 minutes Beena Benítez Work Phone: [facility] 320 DO Work Phone: Start: 10-07-2020 End: 10-09-2020 Evaluation and management of inpatient Adam Romano 8 Cardio ICU 816 01 Patient encounter status Beena Benítez Work Phone: [facility] 320 DO Work Phone: Procedures Date Procedure Procedure Detail Performing Clinician Start: 07-19-2023 Basic metabolic 2000 panel - Serum or Plasma MARGRET STEVENS Start: 07-19-2023 CBC panel - Blood by Automated count MARGRET STEVENS Start: 07-19-2023 Comprehensive metabo lic 2000 panel - Serum or Plasma MARGRET STEVENS Start: 07-19-2023 Lipid panel [facility] Start: 07-19-2023 ECG 12-LEAD AMRGRET SCHREIBER AN Start: 07-19-2023 Ecg routine ecg w/le ast 12 lds w/i&r Margret Stevens MD Work Phone: Start: 02-05-2022 Catheterization of l eft heart Kushal Page Start: 10-09-2020 End: 10-09-2020 EKG impression Deann Zuñiga Start: 2020 End: 2020 EKG impression Deann Zuñiga Start: 05-16-2020 Catheterization of l eft heart Kushal Page Start: 05-16-2020 Stent, device (physi davide object) Kushal Page Comment on above: Mid RCA Start: 05-04-2016 epidural steroid injection 2 Kushal Page Comment on above: 90% relief for 2 wks . back surgery 3 Kushal Page Comment on above: 1987 Cardiac catheterization Juan Benítez Work Phone: Cardioversion Beena Albarado Benítez Work Phone: Excision of mass of neck Spencer iel Page Hernia repair Beena Albarado Jeyson Work Phone: Herniated structure (morphologic abnormality) Kushal Page Comment on above: 2009 Total colonoscopy Beena Albarado Carol echavarria Work Phone: Plan of Treatment Date Care Activity Detail Author Start: 03-30-2031 DTaP/Tdap/Td Vaccines (2 - Tdap) DTaP/Tdap/Td Vaccines (2 - Tdap) [facility] Start: 07-17-2024 End: 07-17-2024 Patient encounter procedure 07/17/2024 3:30 PM EST Office Visit [address] [place] [address] Margret Stevens MD [address] [place] [address] [address] [place], [place] [id number] [facility] Start: 06-19-2024 End: 06-19-2024 Patient encounter procedure 06/19/2024 10:45 AM EST Appointment [id number] [place] [id number] [facility] Start: 06-18-2024 End: 07-19-2024 CBC panel - Blood by Automated count CBC Lab Routine Paroxysmal atrial fibrillation (CMS/HCC) Hypercoagulable state due to paroxysmal atrial fibrillation (CMS/HCC) Expected: 06/18/2024 (Approximate), Expires: 07/19/2024 [facility] Work Phone: Comment on above: Expected: 06/18/2024 (Approximate), Expi res: 07/19/2024 Start: 06-18-2024 End: 07-19-2024 Comprehensive metabolic 2000 panel - Serum or Plasma Comprehensive Metabolic Panel Lab Routine Paroxysmal atrial fibrillation (CMS/HCC) Coronary artery disease involving port [place] coronary artery of port [place] heart without angina pectoris Ischemic cardiomyopathy Chronic systolic congestive heart failure, NYHA class 2 (CMS/HCC) Expected: 06/18/2024 (Approximate), Expires: 07/19/2024 [facility] Work Phone: Comment on above: Expected: 06/18/2024 (Approximate), Expi res: 07/19/2024 Start: 06-18-2024 End: 07-19-2024 Lipid 1996 panel - Serum or Plasma Lipid Panel Lab Routine Coronary artery disease involving [place] coronary artery of [place] heart without angina pectoris Mixed hyperlipidemia Expected: 06/18/2024 (Approximate), Expires: 07/19/2024 [facility] Work Phone: Comment on above: Expected: 06/18/2024 (Approximate), Expi res: 07/19/2024 Start: 08-02-2023 End: 07-19-2024 Basic metabolic 2000 panel - Serum or Plasma Basic Metabolic Panel Lab Routine Ischemic cardiomyopathy Chronic systolic congestive heart failure, NYHA class 2 (CMS/HCC) Expected: 08/02/2023 (Approximate), Expires: 07/19/2024 [facility] Service [facility] Work Phone: Comment on above: Expected: 08/02/2023 (Approximate), Expi res: 07/19/2024 Start: 07-19-2023 End: 07-19-2025 [facility] Transthoracic Transthoracic Echo Complete Echocardiography Routine Ischemic cardiomyopathy Chronic systolic congestive heart failure, NYHA class 2 (CMS/HCC) Expected: 07/19/2023 (Approximate), Expires: 07/19/2025 [facility] Work Phone: Comment on above: Expected: 07/19/2023 (Approximate), Expi res: 07/19/2025 Start: 02-15-2023 FUV, Provider: Margret Stevens, Status: Pen, Time: 12:30 PM FUV, Provider: Margret Stevens, Status: Pen, Time: 12:30 PM [facility] 250 DO Work Phone: Start: 01-29-2023 COVID-19 Vaccine () COVID-19 Vaccine () [facility] Start: 01-29-2023 Influenza vaccination Influenza Vaccine (#1) [facility] Start: 12-02-2022 HOLTER 48, Provider: VIN IZAGUIRRE [employer] PORTAL DEVELOPER 1,[id number], Status: Pen, Time: 9:00 AM HOLTER 48, Provider: VIN IZAGUIRRE [employer] DEVEL[employer] 1,[id number], Status: Pen, Time: 9:00 AM [facility] 250 DO Work Phone: Start: 11-23-2022 FUV, Provider: Margret Stevens, Status: Pen, Time: 3:00 PM FUV, Provider: Margret Stevens, Status: Pen, Time: 3:00 PM [facility] 250 DO Work Phone: Start: 10-05-2022 FUV, Provider: Margret Stevens, Status: Pen, Time: 2:30 PM FUV, Provider: Margret Stevens, Status: Pen, Time: 2:30 PM -[facility] 250 DO Work Phone: Start: 09-10-2022 STRESS HERSON, Provider: CARLA HHVI NUCLEAR 01,[id number], Status: Pen, Time: 9:00 AM STRESS HERSON, Provider: CARLA HHVI NUCLEAR 01,[id number], Status: Pen, Time: 9:00 AM -[facility] 250 DO Work Phone: Start: 08-17-2022 FUV, Provider: Margret Stevens, Status: Pen, Time: 3:15 PM FUV, Provider: Margret Stevens, Status: Pen, Time: 3:15 PM -[facility] 250 DO Work Phone: Start: 10-29-2021 FUV, Provider: Adam Leo, Status: Pen, Time: 3:45 PM FUV, Provider: Adam Leo, Status: Pen, Time: 3:45 PM [facility] 320 DO Work Phone: Start: 10-09-2021 Creatinine measurement Creatinine Level [facility] Start: 10-09-2021 Diabetes mellitus screening Diabetes Screening [facility] Start: 10-09-2021 Potassium measurement Potassium Level [facility] Start: 10-09-2020 No post-op complications No post-op complications Date: 09-Oct-2020 [facility] Start: 10-09-2020 Prolonged QT interval Prolonged QT interval Date: 09-Oct-2020 [facility] Start: 2020 Arrhythmia Arrhythmia Date: 08-Oct-2020 [facility] Start: 10-07-2020 End: 2021 [facility] Comment on above: IF patient HAS a secure IV access & is U nconscious, Conscious, NPO or Unable to Eat or Drink. Repeat until BG reaches 100 mg/dL or greater. Push 2-3 mL/minute. Discontinue once BG reaches 100 mg/dL or greater. IF patient DOES NOT have secure IV access & is Unconscious, Conscious, NPO or Unable to Eat or Drink. Repeat until BG reaches 100 mg/dL or greater. Discontinue once BG reaches 100 mg/dL or greater. Start: 10-09-2007 Zoster Vaccines (1 of 2) Zoster Vaccines (1 of 2) [facility] Start: 10-09-1975 Hepatitis C screening Hepatitis C Screening [facility] Start: 10-09-1963 Pneumococcal Vaccine: 65+ Years (1 - PCV) Pneumococcal Vaccine: 65+ Years (1 - PCV) [facility] Start: 1958 MMR Vaccines (1 of 1 - Standard series) MMR Vaccines (1 of 1 - Standard series) [facility] Start: 1957 Annual wellness visit Medicare Initial Physical (IPPE) [facility] Start: 1957 Echocardiography Echocardiogram [facility] Start: 1957 Lipid panel Lipid Panel [facility] Start: 1957 Screening for malignant neoplasm of colon [facility] Immunizations Immunization Date Immunization Notes Care Provider Fa cility 03-30-2021 diphtheria, tetanus toxoids and pertussis vaccine Beena Benítez Work Phone: [facility] 320 DO Work Phone: 09-30-2020 Pfizer-BioNTech COVI D-19 Vacc 30 MCG/0.3ML Intramuscular Suspension Beena Benítez Work Phone: [facility] 320 DO Work Phone: 09-10-2020 Pfizer-BioNTech COVI D-19 Vacc 30 MCG/0.3ML Intramuscular Suspension Beena Verena Benítez Work Phone: [facility] 320 DO Work Phone: Payers Date Payer Category Payer Private Health Insurance 2021 Medicare A[employer] MEDICARE A ETNA MEDICARE VALUE PLAN [id number] 2021-Present P Isa [id number] [place] [address] [id number] 1959 Medicare [id number] 1957 Unknown [id number] 2.16.840.1.089875.3.579.2.1 06 1957 Unknown [id number] 2.16.840.1.089044.3.579.2.7 1957 Unknown [id number] 2.16.840.1.366175.3.579.2.7 1957 Unknown [id number] 2.16.840.1.666551.3.579.2.7 1957 Unknown [id number] 2.16.840.1.735523.3.579.2.7 1957 Unknown [id number] 2.16.840.1.196116.3.579.2.7 1957 Unknown [id number] 2.16.840.1.141483.3.579.2.7 1957 Unknown [id number] 2.16.840.1.605915.3.579.2.5 93 1957 Unknown [id number] 2.16.840.1.011328.3.579.2.5 93 1957 Unknown [id number] 2.16.840.1.513011.3.579.2.5 93 1957 Unknown [id number] 2.16.840.1.403786.3.579.2.5 93 1957 Unknown [id number] 2.16.840.1.899450.3.579.2.3 56 1957 Unknown [id number] 2.16.840.1.747837.3.579.2.3 56 1957 Unknown [id number] 2.16.840.1.148134.3.579.2.3 56 1957 Unknown [id number] 2.16.840.1.177691.3.579.2.3 1957 Unknown [id number] 2.16.840.1.988576.3.579.2.3 1957 Unknown [id number] 2.16.840.1.527816.3.579.2.3 1957 Unknown [id number] 2.16.840.1.352461.3.579.2.3 1957 Unknown [id number] 2.16.840.1.224003.3.579.2.1 244 Unknown Social History Date Type Detail Facility [facility] Tobacco smoking consumption unknown [facility] Start: 07-19-2023 Never smoker Never smoker [facility] 320 DO Work Phone: Comment on above: 2-3 cups of tea dudley y, 1 soda; Start: 05-30-2020 End: 07-19-2023 Tobacco smoking status Never smoked tobacco (finding) [facility] Start: 07-19-2023 Sex Assigned At Male F [facility] Start: 07-19-2023 Tobacco use and exposure Smokeless tobacco non-user [facility] Work Phone: Start: 07-19-2023 Alcohol intake Current drinke r of alcohol (finding) [facility] Work Phone: Start: 07-19-2023 Alcohol Comment occasional beer [facility] Work Phone: Start: 1955 Sex Assigned At Not on file U [facility] Work Phone: Start: 07-09-2023 End: 07-19-2023 Exposure to SARS-CoV-2 (event) Not sure [facility] Functional Status Date Assessment Result Facility 03-09-2022 Functional Status N/A [facility] 02-05-2022 Functional Status Yes [facility] 01-23-2022 Functional Status N/A [facility] 12-05-2021 Functional Status N/A [facility] Functional observable [facility] Mental Status Date Assessment Result Facility 10-09-2020 Cognitive functions 62809:[id number] [facility] Clinical Notes 10-07-2020 to 07-19-2023 Margret Stevens MD - 07/19/2023 3:00 PM ESTPatient Instructions Note Date & Type Note Facility 07-19-2023 History of Present illness Narrative This is a 6-month follow-up. Past medical history is as noted below. Subjective : Lost a few pounds Shortness of breath functional class II No falls Compliant with CPAP therapy Compliant with medications No palpitations, no bleeding diathesis. History so Far : 1. Persistent atrial fibrillation controlled on sotalol and anticoagulated with Eliquis. 2. Sinus node dysfunction. Patient had profound bradycardia on combination of beta-ashely and sotalol, currently remains on sotalol. 3. [...] per 2D echocardiogram dated June 07, 2020, [place] [employer] class II, stage B heart failure. 10. Gouty arthritis. Patient remains on allopurinol, no recent recurrence. 11. Abnormal perfusion imaging showing an LV ejection fraction in the 20s, with subsequent cardiac catheterization showing LV ejection fraction of 45%, this was done at [facility] and that particular Catheterization did not show [...] This is consistent with chronotropic blunting. 13. BLM4QT2-VKSw score is 6 14.48-hour Holter monitor-minimum heart rate 46 bpm average heart rate 66 bpm maximum heart rate 99 bpm ventricular premature beats comprised 0.6% of the total QRS complexes there was 1 ventricular triplet and 12 ventricular couplets supraventricular ectopic beats comprised 1.1% of the total QRS complexes longest R to R interval 1.7 seconds occurred at 5:37 AM no symptoms were reported. Activity log was not provided Objective Failed to redirect to the Timeline version of the [employer]. Wt Readings from Last 3 Encounters: 07/19/23 (!) 166 kg (365 lb) 02/15/23 (!) 169 kg (372 lb) 11/23/22 (!) 171 kg (376 lb) Visit Vitals BP 138/88 (BP Location: Right arm, Patient Position: Sitting) Pulse 65 Ht 1.778 m (5' 10 ) Wt (!) 166 kg (365 lb) BMI 52.37 kg/m Smoking Status Never BSA 2.86 m Physical Exam: GENERAL APPEARANCE: in no acute distress. CHEST: Symmetric and non-tender. INTEGUMENT: Skin warm and dry HEENT: No gross abnormalities identified.No pallor or scleral icterus. NECK: Supple, no JVD, no bruit. NEURO/PSHCY: Alert and oriented x3; appropriate behavior and responses and responses LUNGS: Clear to auscultation bilaterally; normal respiratory effort. HEART: Rate and rhythm regular with no evident murmur; no gallop appreciated. ABDOMEN: Soft, non tender. MUSCULOSKELETAL: No gross deformities. EXTREMITIES: Warm There is no edema noted. Meds: Current Outpatient Medications Medication Instructions allopurinol (ZYLOPRIM) 300 mg, oral, Daily aspirin 81 mg chewable tablet 1 tablet, oral, Daily colchicine 0.6 mg, oral, Daily, As needed DULoxetine (CYMBALTA) 60 mg, oral, Daily magnesium oxide (Mag-Ox) 400 mg (241.3 mg magnesium) tablet 1 tablet, oral, Daily metFORMIN XR (GLUCOPHAGE-XR) 750 mg, oral, Daily modafinil (PROVIGIL) 100 mg, oral, Daily multivitamin tablet 1 tablet, oral, Daily omeprazole (PRILOSEC) 20 mg, oral, Daily rosuvastatin (CRESTOR) 20 mg, oral, Daily sacubitriL-valsartan (Entresto) 97-103 mg tablet 1 tablet, oral, 2 times daily sotalol (BETAPACE) 80 mg, oral, 2 times daily Xarelto 20 mg tablet TAKE 1 TABLET DAILY WITH BIGGEST MEAL OF THE DAY. No Known Allergies LABS: Lab Results Component Value Date WBC 6.7 10/07/2020 HGB 14.6 10/07/2020 HCT 43.3 10/07/2020 PLT 193 10/07/2020 ALT 31 10/07/2020 AST 23 10/07/2020 NA 139 10/09/2020 K 4.2 10/09/2020 CL 102 10/09/2020 CREATININE 0.97 10/09/2020 BUN 16 10/09/2020 CO2 28 10/09/2020 TSH 1.65 12/31/2021 INR 1.1 10/07/2020 Patient Active Problem List Diagnosis Date Noted Hypercoagulability due to atrial fibrillation ([facility]) 07/19/2023 Medication course changed 07/19/2023 Chronic systolic congestive heart failure, NYHA class 2 ([facility]) 07/19/2023 High risk medication use 07/19/2023 Abnormal electrocardiogram 05/05/2023 Atrial fibrillation ([facility]) 05/05/2023 CAD (coronary artery disease) 05/05/2023 Cardiomyopathy (CMS/HCC) 05/05/2023 COVID-19 05/05/2023 SOB (shortness of breath) 05/05/2023 Assessment: 1. Paroxysmal atrial fibrillation (CMS/HCC) Follow Up In Cardiology ECG 12 Lead CBC Comprehensive Metabolic Panel CBC Comprehensive Metabolic Panel 2. Coronary artery disease involving [place] coronary artery of [place] heart without angina pectoris Follow Up In Cardiology Comprehensive Metabolic Panel Lipid Panel Comprehensive Metabolic Panel Lipid Panel 3. Ischemic cardiomyopathy Follow Up In Cardiology sacubitriL-valsartan (Entresto) 97-103 mg tablet Basic Metabolic Panel Comprehensive Metabolic Panel Transthoracic Echo Complete Basic Metabolic Panel Comprehensive Metabolic Panel 4. Chronic systolic congestive heart failure, NYHA class 2 (CMS/HCC) sacubitriL-valsartan (Entresto) 97-103 mg tablet Basic Metabolic Panel Comprehensive Metabolic Panel Transthoracic Echo Complete Basic Metabolic Panel Comprehensive Metabolic Panel 5. Hypercoagulable state due to paroxysmal atrial fibrillation (CMS/HCC) CBC CBC 6. Medication course changed 7. Mixed hyperlipidemia Lipid Panel Lipid Panel 8. High risk medication use Clinical discussion: Patient is doing well overall, but we have room to further uptitrate guideline directed heart failure therapy. We will increase Entresto to 97/103 p.o. twice daily Basic metabolic profile in 2 weeks 1 year follow-up CBC comprehensive profile lipid profile and BNP prior to next visit Echocardiogram prior to next visit Patient remains on high risk medications-EKG was reviewed Patient to discuss with primary care as to the role of weight loss medications. May be a candidate for Ozempic or Rybelsus. Follow up : 1 year Provider Attestation - Scribe documentation All medical record entries made by the Scribe were at my direction and personally dictated by me. I have reviewed the chart and agree that the record accurately reflects my personal performance of the history, physical exam, discussion and plan. Scribe Attestation By signing my name below, I, Julito Marcus LPN attest that this documentation has been prepared under the direction and in the presence of Margret Stevens MD. documented in this encounter [facility] Work Phone: 07-19-2023 Instructions Clarisa Quintanilla LPN - 07/19/2023 3:00 PM EST Please bring all medicines, vitamins, and herbal supplements with you when you come to the office. Prescriptions will not be filled unless you are compliant with your follow up appointments or have a follow up appointment scheduled as per instruction of your physician. Refills should be requested at the time of your visit. EKG done in office today BMI was above normal measurement. Current weight: (!) 166 kg (365 lb) Weight change since last visit (-) denotes wt loss -7 lbs Weight loss needed to achieve BMI 25: 191.1 Lbs Weight loss needed to achieve BMI 30: 156.4 Lbs Provided instructions on dietary changes Advised to Increase physical activity. documented in this encounter [facility] Work Phone: 05-07-2023 Evaluation note Encounter Date Diagnosis Assessment [...] the ER for worsening symptoms or concerns [employer] Other 10-09-2023 Evaluation note* Encounter Date Diagnosis [...] as directed. Feb, Coronary artery disease involving [place] coronary artery of [place] heart without angina pectoris (ICD-10 - I25.10) Continue care w [facility] Feb, GAYLE (obstructive sleep apnea) (ICD-10 - G47.33) Continue care w Dr. Noble. [employer] Other 05-01-2023 History of Present illness Narrative* [...] Patient had profound bradycardia on combination of beta-ashely and sotalol, currently remains on sotalol. * [...] per 2D echocardiogram dated June 07, 2020, [place] [employer] class II, stage B heart failure. * 10. Gouty arthritis. Patient remains on allopurinol, no recent recurrence. * 11. Abnormal perfusion imaging showing an LV ejection fraction in the 20s, with subsequent cardiac catheterization showing LV ejection fraction of 45%, this was done at [facility] and that particular Catheterization did not show [...] is consistent with chronotropic blunting. * 13. [id number] score is 6 * Laboratory data from [...] prohibitively expensive-pleaseconsider Ozempic or Rybelsus-defer to primary/endocrinology. -[facility]Carla [address] DO Work Phone: [phone]) 714-420005-01-2023 History of Present illness Narrative* Patient was [...] Patient had profound bradycardia on combination of beta-ashely and sotalol, currently remains on sotalol. * [...] per 2D echocardiogram dated June 07, 2020, [place] [employer] class II, stage B heart failure. * 10. Gouty arthritis. Patient remains on allopurinol, no recent recurrence. * 11. Abnormal perfusion imaging showing an LV ejection fraction in the 20s, with subsequent cardiac catheterization showing LV ejection fraction of 45%, this was done at [facility] and that particular Catheterization did not show [...] is consistent with chronotropic blunting. * 13. PVO7TR3-IUEz score is 6 * Laboratory data from [...] prohibitively expensive-pleaseconsider Ozempic or Rybelsus-defer to primary/endocrinology. -[facility]Carla French DO Work Phone: 1([phone]) 716-617505-01-2023 History of Present illness Narrative* Patient was [...] Patient had profound bradycardia on combination of beta-ashely and sotalol, currently remains on sotalol. * [...] per 2D echocardiogram dated June 07, 2020, [place] [employer] class II, stage B heart failure. * 10. Gouty arthritis. Patient remains on allopurinol, no recent recurrence. * 11. Abnormal perfusion imaging showing an LV ejection fraction in the 20s, with subsequent cardiac catheterization showing LV ejection fraction of 45%, this was done at [facility] and that particular Catheterization did not show [...] is consistent with chronotropic blunting. * 13. XDG4YN2-PIAv score is 6 * Laboratory data from [...] prohibitively expensive-pleaseconsider Uriel or Juan-defer to primary/endocrinology. -[facility]Carla French DO Work Phone: [phone]) 636-200604-01-2023 History of Present illness Narrative* Patient with [...] Patient had profound bradycardia on combination of beta-ashely and sotalol, currently remains on sotalol. * [...] per 2D echocardiogram dated June 07, 2020, [place] [employer] class II, stage B heart failure. * 10. Gouty arthritis. Patient remains on allopurinol, no recent recurrence. * 11. Abnormal perfusion imaging showing an LV ejection fraction in the 20s, with subsequent cardiac catheterization showing LV ejection fraction of 45%, this was done at [facility] and that particular Catheterization did not show [...] for his unrelenting fatigue and foggy brain. -[facility]-Carla French DO Work Phone: [phone]) 367-757001-16-2023 Evaluation note* Encounter Date Diagnosis Assessment Notes Treatment Notes Treatment Clinical Notes May, Type 2 diabetes mellitus with hyperglycemia, without long-term current use of insulin (ICD-10 - E11.65) chronic problem - may increase or add med based on lab results May, Essential (primary) hypertension (ICD-10 - I10) chronic and controlled adequately at this time. May, Coronary artery disease involving [place] coronary artery of [place] heart without angina pectoris (ICD-10 - I25.10) May, BMI 50.0-59.9, adult (ICD-10 - Z68.43) Pt is encouraged to lose weight, change diet, and increase exercise as tolerated. [employer] Other 09-12-2022 Note [id number] 02-05-2022 Evaluation + Plan noteExtracted from: Title:Procedure [...] Scheduled Tests Laboratory* Basic Metabolic Panel 06/06/21 [facility]09-08-2022 Hospital Discharge instructions Patient Education 02/05/2022 10:35:09 CV - Cardiovascular Discharge Instructions (CUSTOM) [place], [place] CARDIOVASCULAR DISCHARGE INSTRUCTIONS Diet: Resume pre-procedure [...] hours post procedure: Actoplus MetGlucophageGlucophage XR GlucovanceAvandametFortamet Qqx-yynvlckkmQzpuxpMljd-gciudlnyc GlumetzaJanumetMetaglip RiometGlycomet *Minimal pain, soreness and/or discomfort [...] you are interested in smoking cessation, contact [facility] at [phone], ext. [phone]. In the event you are unable to reach your physician, please call [facility] at [phone] and the rounding machine operator will assist you. Seek Immediate Medical Care for: Bleeding: Apply continuous pressure to the site and Call 911. Should the arm or leg become cold, numb, blue or white call your physician immediately. Signs of infection are redness, warmth, swelling, increased tenderness, colored drainage, fever or chills Chest pain Follow Up Care 01/27/2022 09:04:57 With:Kushal Page Address: [address] [place] [phone] Business (1) When:03/09/2022 11:15:00 [facility]09-08-2022 NoteProcedure The risk/benefits of the procedure were [...] Education Routine Capillary Glucose POC Saline Lock InsertWayne Healthcare Main CampusComment on above:Result Comment: Electronically Signed By: Camilo STARK, Kushal Moran.br\Date and Time Signed: 02/05/22 06:47 [id number] Evaluation + Plan note Future Scheduled Tests Laboratory* Basic Metabolic Panel 06/06/21 [facility]05-12-2021 Hospital Discharge instructions* Follow Up Appointment 1:Physician/Dept/Service: Kaity Zapata (VIN N.PKami)Scheduled Date/Time: [id number]: VIN Romano officePhone Number: [phone] [facility]05-10-2021 History of Present illness Narrative* 65-year-old male who is followed for persistent atrial fibrillation. He underwent antiarrhythmic drug loading with sotalol October 07, 2020 and presents to the office today for follow-up evaluation. His carvedilol was discontinued due to heart rates in the 40s post drug loading. He did require cardioversion on October 09, 2020 for faith of sinus rhythm. * Since the last [...] per 2D echocardiogram dated June 07, 2020, [place] [employer] class II, stage B heart [...] software was utilized to prepare this document. [facility]Rosalina 320 DO Work Phone: 1([phone]) 515-917105-10-2021 History of Present illness Narrative* 65-year-old male who is followed for persistent atrial fibrillation. He underwent antiarrhythmic drug loading with sotalol October 07, 2020 and presents to the office today for follow-up evaluation. His carvedilol was discontinued due to heart rates in the 40s post drug loading. He did require cardioversion on October 09, 2020 for faith of sinus rhythm. * Since the last [...] per 2D echocardiogram dated June 07, 2020, [place] [employer] class II, stage B heart [...] software was utilized to prepare this document. [facility] [place] Work Phone: Evaluation + Plan note Future Appointments Appointment Date:01/23/2022 03:00:00 PM Scheduled Provider:Kushal Page MD Location:[facility]Cardiology Clinic Appointment Type:Cardiology Follow Up ([facility]) Future Scheduled Tests Laboratory* Basic Metabolic Panel 06/06/21 Radiology* NM Myocardial Spect Rest/Stress 2 Day [facility] Future Appointments Appointment Date:02/05/2022 08:00:00 AM Scheduled Provider: [facility] ([facility]) Future Scheduled Tests Laboratory* Basic Metabolic Panel 06/06/21 Radiology* CV Cardi[facility] Future Appointments Appointment Date:09/08/2022 03:15:00 PM Scheduled Provider:Kushal Page MD Location:[facility]iology [facility] Appointment Type:Cardiology Follow Up ([facility]) Future Scheduled Tests Laboratory* Basic Metabolic Panel [facility]* Musculoskeletal: ROM intact, no joint swelling, [...] wounds, or clubbingPsychological: Appropriate mood and behavior [facility] noteNo InformationNortLifec[facility] [employer] Other Evaluation note* Diagnosis Paroxysmal atrial fibrillation (CMS/HCC) Atrial fibrillation Coronary artery disease involving [place] coronary artery of [place] heart without angina pectoris Ischemic cardiomyopathy Other specified forms of chronic ischemic heart disease Chronic systolic congestive heart failure, NYHA class 2 (CMS/HCC) Hypercoagulable state due to paroxysmal atrial fibrillation (CMS/HCC) Medication course changed Mixed hyperlipidemia High risk medication use documented in this encounter [facility] Work Phone: History general Narrative - Reported* Type Description Date Medical History Gout Medical History Depression Medical History HTN Medical History stroke Medical History Atrial fibrillation Medical History DM Surgical History Back surgery Surgical History Hernia Surgical History Mass removed from skin of neck Surgical History heart cath with stent placed Hospitalization History See past surgical hx Hospitalization History Stroke 05/2019 [email or web address] Other History of Present illness Narrative* Patient is new to this provider, he is accompanied by his who works at [employer] in the cafeteria. Prior records were [...] function test, and Lexiscan stress test at [facility]. He states he has absolutely no energy and is easily fatigued, he is short of breath and he has a nonproductive cough. He denies fever or chills. He isaccompanied by his who questions whether he may change his cardiology follow-up to [facility] due to proximity to home. * Patient wishes to establish care at [facility]. Predominant complaints are unrelenting fatigue, short-term [...] Patient had profound bradycardia on combination of beta-ashely and sotalol, currently remains on sotalol. * [...] per 2D echocardiogram dated June 07, 2020, [place] [employer] class II, stage B heart failure. * 10. Gouty arthritis. Patient remains on allopurinol, no recent recurrence. * 11. Abnormal perfusion imaging showing an LV ejection fraction in the 20s, with subsequent cardiac catheterization showing LV ejection fraction of 45%, this was done at [facility] and that particular Catheterization did not show any flow-limiting disease. The perfusion study was done in December 2021, cardiac catheterization from January 2022 showed nonobstructive coronary artery disease of theleft system widely patent RCA stent LVEF 45% moderately dilated left ventricular chamber dimension mildly elevated LV end-diastolic pressure. * EKG from today shows normal sinus rhythm at 64 bpm ND interval 148 ms QRS duration 106 ms [...] ALT and AST mildly elevated hemoglobin 13.4. -[facility]Carla 250 DO Work Phone: History of Present illness Narrative* Patient with atherosclerotic [place] vessel coronary artery disease, multiple cardiac risk [...] Patient had profound bradycardia on combination of beta-ashely and sotalol, currently remains on sotalol. * [...] per 2D echocardiogram dated June 07, 2020, [place] [employer] class II, stage B heart failure. * 10. Gouty arthritis. Patient remains on allopurinol, no recent recurrence. * 11. Abnormal perfusion imaging showing an LV ejection fraction in the 20s, with subsequent cardiac catheterization showing LV ejection fraction of 45%, this was done at [facility] and that particular Catheterization did not show [...] will defer to sleep medicine * Recommendations: -[place] [address] DO Work Phone: History of Present illness Narrative* Patient with atherosclerotic [place] vessel coronary artery disease, multiple cardiac risk [...] Patient had profound bradycardia on combination of beta-ashely and sotalol, currently remains on sotalol. * [...] per 2D echocardiogram dated June 07, 2020, [place] [employer] class II, stage B heart failure. * 10. Gouty arthritis. Patient remains on allopurinol, no recent recurrence. * 11. Abnormal perfusion imaging showing an LV ejection fraction in the 20s, with subsequent cardiac catheterization showing LV ejection fraction of 45%, this was done at [facility] and that particular Catheterization did not show [...] will defer to sleep medicine * Recommendations: [facility] Work Phone: Hospital course Narrative No data available for this section [facility] No data available for this section [facility] note No data available for this section [facility] Chief Complaint Patient is here today for [...] function test, and Lexiscan stress test at [facility]. He states he has absolutely no energy andis easily fatigued, he is short of breath and he has a nonproductive cough. He denies fever or chills. He is accompanied by his who questions whether he may change his cardiology follow-up to [facility] due to proximity to home. * Physical [...] per 2D echocardiogram dated June 07, 2020, [place] [employer] class II, stage B heart failure. * 10. Gouty arthritis. * Recommendations: * 1. Continue current medications as prescribed. * 2. I discussed with the patient that he may follow-up with a intake specialist in [facility] as requested. He was instructed to notify [facility] if he requires any medical records to [...] Advanced Directives Records Found Reason for Referral Specialty Diagnoses / Procedures Referred By Silvina nichols Referred To Contact Cardiology Diagnoses Ischemic cardiomyopathy Chronic systolic congestive heart failure, NYHA class 2 (CMS/HCC) Procedures Transthoracic Echo Complete ND ECHO TTHRC R-T 2D W/WOM-MODE COMPL SPEC&COLR D Margret Stevens MD [address] [address] Referral ID Status Reason Start Date Expiration Date Visits Requested Visits Authorized [id number] Pending Review Perform Procedure 07/19/2023 07/18/2024 1 1 Specialty Diagnoses / Procedures Referred By Silvina nichols Referred To Contact Diagnoses Paroxysmal atrial fibrillation (CMS/HCC) Procedures ECG 12 Lead Margret Stevens MD 254 [facility] [address] [place] [address] Referral ID Status Reason Start Date Expiration Date V isits Requested Visits Authorized [id number] Authorized 07/19/2023 07/18/2024 1 1 Specialty Diagnoses / Procedures Referred By Contcecy t Referred To Contact Cardiology Diagnoses Paroxysmal atrial fibrillation (CMS/HCC) Coronary artery disease involving [place] coronary artery of [place] heart without angina pectoris Ischemic cardiomyopathy Procedures Follow Up In Cardiology Margret Stevens MD 254 [facility] [facility] [address] [place] [address] Margret Stevens MD [address] [facility] [address] [place] [address] Referral ID Status Reason Start Date Expiration Date V isits Requested Visits Authorized [id number] Authorized 07/19/2023 07/18/2024 1 1 Reason 07/06/22 [place] office, scanning recent documents we have from [facility], but we do not have all of them Diagnosis 1 Coronary artery dise ase involving [place] coronary artery of [place] heart without angina pectoris (I25.10) Referral Organization [facility]ly [facility] Referring Provider First Name Beena Referring Provider Last Name Jeyson Referring Provider Specialty [facility] Referred Organization [facility] Referred Provider Albaro Au Referred Address [address] [place] [address] [place], [place],[address] Referred Provider Specialty Internal Med icine Referral Priority Routine Referral Appointment Date 2022-07-06 General Notes Gerri Davis 11:54:25 AM >received today, ins card attached along with previous [facility] note. referral faxed to Gerri Stapleton 06/25/2022 [...] section and content) DATE CREATED AUTHOR 07/24/2021 [facility] DATE CREATED AUTHOR AUTHOR'S ORGANIZ ATION 09/12/2022 [facility] DATE CREATED AUTHOR AUTHOR'S ORGANIZ ATION 09/26/2022 [facility] DATE CREATED AUTHOR AUTHOR'S ORGANIZ ATION 11/06/2022 [facility] DATE CREATED AUTHOR AUTHOR'S ORGANIZ ATION 02/16/2023 [facility] DATE CREATED AUTHOR AUTHOR'S ORGANIZ ATION 02/16/2023 [facility] DATE CREATED AUTHOR AUTHOR'S ORGANIZ ATION 07/20/2023 [facility] Provider Enrollment Specialist Team (unrecognized sect ion and content) Security Systems Engineer Relationship Specialty Start Date End Date Beena Benítez MD [address] [place] [address] PCP - General Family Medicine 07/19/23 REASON FOR VISIT (unrecogniz ed section and content) Reason Comments Follow-up 5 month Specialty Diagnoses / Procedures Referred By Contac t Referred To Contact Diagnoses Paroxysmal atrial fibrillation (CMS/[facility]) Procedures ECG 12 Lead Margret Stevens MD [address] [place] [address] [address] [place] [address] Referral ID Status Reason Start Date Expiration Date V isits Requested Visits Authorized [id number] Authorized 07/19/2023 07/18/2024 1 1 FOR RECORDS PERTAINING TO PATIENTS WHO ARE [...] BE BASED ON THE PRIMARY CLINICAL RECORDS. [employer] [facility]. provides no warranty or guarantee of the accuracy or completeness of information in this document.
--- NOTE | 2023-08-19 07:57 | XR_ITS ---
The [address] [address] Patient Name: LORENA CAMPOS MRN: [id number] date: 1955 Sex: M Assigned Patient Location: [facility] Current Patient Location: [facility] Accession/Order Number: [id number] Exam Date: 08/19/2023 07:50 Report Date: 08/19/2023 22:08 At the request of: BEENA BENÍTEZ Procedure: XR ankle LT min 3V EXAM: XR ankle LT min 3V HISTORY: Left Ankle Effusion M25.472 COMPARISON: None. TECHNIQUE: 3 views of the left ankle were obtained. FINDINGS: There is no evidence of an acute fracture or dislocation. The mortise is intact and no osteochondral injury is identified. There are soft tissue calcification seen adjacent to the medial and lateral malleoli, with calcifications seen within the ankle joint. The subtalar joints are intact. Osteophytes arise from the dorsal aspect of the talus and the posterior aspect. Osteophytes arise from the posterior calcaneus. There is mild diffuse soft tissue swelling of the lower leg and ankle extending into the foot. XR/XR ankle LT min 3V IMPRESSION: No acute fracture or dislocation. The joint spaces are relatively intact. There are are several calcifications seen adjacent to the tip of the medial and lateral malleoli as well as in the ankle joint space. Other degenerative changes are present, as described. Soft tissue swelling is seen diffusely about the lower leg and ankle extending into the foot. Electronically authenticated by: ALFREDO PARMAR Date: 08/19/2023 22:08
== END 2023-08-19 07:38 | disposition home or self-care (01) ==
LOC: RAD 07:38
PROVIDERS: PCP Family Medicine; Visit Provider Family Medicine
DX: M25.472 Effusion, left ankle (principal)
CPT/HCPCS: 73610

== ENCOUNTER 2023-09-09 08:09 | Outpatient (OUT) | payer MEDICARE, SELFPAY ==
--- OUTSIDE RECORDS SUMMARY | 2023-09-09 08:15 | XMS_ITS | CCD ---
Author Organization [facility] Care Team Providers Care Reprint Sorter Name Role Phone Beena Benítez Unavailable Adam [...] Unavailable Beena Benítez MD Primary Care Provider Allergies Allergy Classification Reported Allergen(s) Allergy Type Date of Onset Reaction(s) Facility (1 source) No Known Medication Allergies; Translations: [No Known Medication Allergies] Propensity to adverse reactions (disorder) [facility] Repository (10 sources) dapagliflozin; Translations: [Farxiga TABS] Drug Allergy [place] [address] DO Work Phone: Medications Current Medications Medication [...] day(s), # 90 tab(s), Refills(s) 3, Pharmacy: [facility]/pharmacy #[id number], 178, cm, 01/23/22 14:05:00 EDT, Height/Length Dosing, 170, kg, 01/23/22 14:05:00 EDT, Weight Dosing Start Date: 01/24/22 Stop Date: 01/19/23 Status: Ordered Start: 01-23-2022 take 4 tablets by mouth once P lavix 75 mg Tab 300 mg = 4 tab(s), Oral, Once, 300 mg Loading Dose, # 4 tab(s), Refills(s) 0, Pharmacy: [facility]/pharmacy #[id number], 178, cm, 01/23/22 14:05:00 EDT, Height/Length [...] day(s), # 180 tab(s), Refills(s) 3, Pharmacy: [facility]/pharmacy #[id number], 178, cm, 06/20/21 9:09:00 EST, Height/Length [...] Start: 05-17-2020 take 2 tablets by mo [facility] at bedtime atorvastatin 40 mg Tab 80 [...] day(s), # 90 tab(s), Refills(s) 3, Pharmacy: [facility]/pharmacy #[id number], 179, cm, 03/09/22 11:22:00 EDT, Height/Length [...] [Coronary atherosclerosis of unspecified type of vessel, muscogee or graft] Onset: 09-10-2022 Chronic Coronary atherosclerosis [...] 07-19-2023 Episodic Other aftercare (3 sources) 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 therapy; Translations: [OTH SHIPPING AND RECEIVING SUPERVISOR CURRENT DRUG THERAPY] Onset: 10-28-2022 Episodic Other aftercare (1 source) emt intermediate (current) use of anticoagulants; Translations: [SHIPPING AND RECEIVING SUPERVISOR CURRNT USE ANTICOAGULANTS] Onset: 10-28-2022 Episodic Other aftercare (2 sources) Taking high risk medication; Translations: [Other [place] [facility] (current) drug therapy] Onset: 07-19-2023 07-19-2023 Episodic [...] Reference Range Facility ECG 12 Leadon 08-16-2023 [facility] Work Phone: Office Visit (Cardiology)on 02-15-2023 Follow-up [...] IO EKG Electrocardiogram- 12 Lead; Status:Complete; Done: [id number] Morbid obesity with BMI of 50.0-59.9, adult Healthy Weight Tips; Status:Complete - Retrospective Authorization; Done: [id number] Some eating tips that can help you lose weight.; Status:Complete - Retrospective Authorization; Done: [id number] SocHx: Never smoker Tobacco Use Screening; Status:Complete; Done: [id number] Patient Instructions Please bring all medicines, vitamins, [...] options. He and his have joined weight [employer]. An EKG was done today, reviewed,No recent [...] per 2D echocardiogram dated June 07, 2020, [place] Heart Association class II, stage B heart failure. 10. Gouty arthritis. Patient remains on allopurinol, no recent recurrence. 11. Abnormal perfusion imaging showing an LV ejection fraction in the 20s, with subsequent cardiac catheterization showing LV ejection fraction of 45%, this was done at [facility] and that particular Catheterization did [...] This is consistent with chronotropic blunting. 13. [id number]-VNPp score is 6 14.48-hour Holter monitor-minimum heart rate 46 bpm average heart rate 66 bpm maximum heart rate 99 bpm ventricular patience (more content not included)... Normal [facility] Tobacco Screening.on 023 Fall risk assessment b) One or more fall s in the last year [facility] DO Work Phone: Tobacco use status [facility] b) No [facility] 250 DO Work Phone: Cardiovasc Arrhythmia Result son 11-30-2022 Cardiovasc Arrhythmia Results Reason For Visit Reason for Visit: Holter Monitor: LORENA is here for the application of a 48 hour Holter monitor. Ordering Physician: Dr. Margret Stevens MD Diagnosis: a-fib NO equipment agreement signed. LORENA understands monitor is to be returned on: 12/02/2022 Monitor number [id number] applied. Holter monitor returned and downloaded. Holter monitor returned and downloaded. 12/03/2022 Holter monitor printed and emailed to [facility] and placed on Dr. Margret Stevens [...] Atrial fibrillation (427.31) (I48.91) Future Appointments Date/TimeProviderSpeci altySp[facility] 02/15/2023 12:30 PMMargret Stevens, JFOherjyotfd521 [facility] [address] 250 DO Signatures Electronically signed by : Margret Stevens MD; Feb 15 2023 2:58PM EST (Author) Normal [facility] Office Visit (Cardiology)on 11-23-2022 Follow-up visit Diagnoses/Problems [...] Metabolic Panel; Status:Active - Retrospective Authorization; Requested for:[id number]; Morbid obesity with BMI of 50.0-59.9, adult [...] EKG shows sinus rhythm at 82 bpm DE interval 158 ms QRS duration 102 ms [...] per 2D echocardiogram dated June 07, 2020, [place] Heart Association class II, stage B heart failure. 10. Gouty arthritis. Patient remains on allopurinol, no recent recurrence. 11. Abnormal perfusion imaging showing an LV ejection fraction in the 20s, with subsequent cardiac catheterization showing LV ejection fraction of 45%, this was done at [facility] and that particular Catheterization did [...] This is consistent with chronotropic blunting. 13. [id number]-AHWn score is 6 Laboratory data from September 2022 s (more content not included)... Normal [facility] Tobacco Screening.on 023 Adult depression screening assessment No [facility] [facility] 250 DO Work Phone: Fall risk assessment a) No falls within the last year [facility] 250 DO Work Phone: Tobacco use status [facility] b) No [facility] 250 DO Work Phone: BNPon 10-27-2022 Natriuretic peptide B (Bld) [Mass/Vol] 80.0 pg/mL Normal <=900.0 [facility] Comment on above: Performed By: #### B ENGINE LATHE SET UP OPERATOR, CK, TSH #### [facility] [address] [place] [address] [address] Maria T Canela CPKon 10-27-2022 CK [Catalytic activity/Vol] 302 U/L Normal 39-308 [facility] Comment on above: Performed By: #### B ENGINE LATHE SET UP OPERATOR, CK, TSH #### [facility] [address] [place] [address] [address] Maria T Canela FREE T4on 10-27-2022 Free T4 [Mass/Vol] 0.87 ng/dL Normal 0.76-1.46 [facility] Comment on above: Performed By: #### F T4 ####[facility] [address] [place] [address]Dr. Maria T Canela GLYCOHEMOGLOBIN A1Con 2022 ADA RECOMMENDATION SEE BELOW Normal [facility] Comment on above: Result Comment: ADA RECOMMENDED LIMIT 4.0 - 6.0 ADA THERAPEUTIC TARGET < 7.0 ACTION SUGGESTED > 7.0 Performed By: #### A 1C #### [facility] [address] [place] [address] [address] Maria T Canela Glucose [Mass/Vol] 169 mg/dL Normal [facility] Comment on above: Performed By: #### A 1C #### [facility] [address] [place] [address] [address] Maria T Canela HbA1c (Bld) [Mass fraction] 7.5 % Critically high 4.5-6.2 [facility] Comment on above: Performed By: #### A 1C #### [facility] [address] [place], [place] [address] Dr. Maria T Canela SED RATE WESTERGRENon 2022 SED RATE 15 mm/hr Normal <=20 [facility] Comment on above: Performed By: #### S EDR ####[facility] [address] [place], [place] [address]WbDr. Maria T Canela TSHon 10-27-2022 TSH 1.477 uIU/mL Normal 0.358-3.740 [facility] Comment on above: Performed By: #### B ENGINE LATHE SET UP OPERATOR, CK, TSH #### [facility] [address] [place], [place] [address] Dr. Maria T Canela Office Visit (Cardiology)on [...] per 2D echocardiogram dated June 07, 2020, [place] Heart Association class II, stage B heart failure. 10. Gouty arthritis. Patient remains on allopurinol, no recent recurrence. 11. Abnormal perfusion imaging showing an LV ejection fraction in the 20s, with subsequent cardiac catheterization showing LV ejection fraction of 45%, this was done at [facility] and that particular Catheterization did not show any flow-limiting disease. The perfusion study was done in December 2021, cardiac catheterization from January 2022 showed nonobstructive coronary artery disease of the left system widely patent RCA stent LVEF 45% moderately dilated left ventricular chamber dimension mildly elevated L (more content not included)... Normal [facility] Tobacco Screening.on 023 Tobacco use status [facility] b) No [facility] 250 DO Work Phone: Heart [...] in office. He had echocardiogram performed at [facility], which was normal. He was ordered [...] protocol. [1] patient was then referred to [place] and was placed on sotalol followed by [...] progressive dry (more content not included)... Normal [facility] Comment on above: Result Comment: Elec tronically Signed By: Camilo STARK, Kushal Galarza Other Comment: Appar ent pt no show Cardiac Stress Teston 2022 Cardiac Stress Test [address], [address] [facility], [place] [address] Exercise Stress Test Patient Name: LORENA CAMPOS Ordering Physician: [id number] Margret Stevens Study Date: 09/10/2022 Reading Physician: [id number] Kim Mckeon MD, [facility] MRN/PID: [id number] Supervising Physician: [id number] Kim Mckeon MD, [facility] Accession/Order#: [id number] Referring Physician: MARGRET STEVENS Date of : 1955 PCP: Beena Benítez Gender: M Fellow: Height: 177.80 cm Nurse: Tigre De La Rosa RN Weight: 168.74 kg Server Support Technician: ROB BSA: 2.72 m2 Technologist: BMI: 53.38 kg/m2 Additional Staff: Age: 66 years cc report to: Patient Location: cc report to: [id number] Margretmelo Stevens Study Type: Cardiac Stress Test Diagnosis/ICD: R94.31-Abnormal electrocardiogram [ECG] [EKG]; I25.10-Atherosclerotic heart disease; I42.9-Cardiomyopathy, unspecified; I50.9-Heart failure, unspecified; R06.02-Shortness of breath Indication: Cardiomyopathy Procedure/CPT: Stress Test Interpretation-[id number]; Stress Test Supervision-[id number] Falls Risk: Low: Patient has low risk [...] The adequate level of stress was achieved. [id number] Kim Mckeon MD, FACC Electronically signed on 09/10/2022 at 6:25:43 PM Final Normal [facility] Cardiac Stress Test [facility] 250 DO Work Phone: Office [...] History of Present Illness Patient with atherosclerotic muscogee vessel coronary artery disease, multiple cardiac risk [...] per 2D echocardiogram dated June 07, 2020, [place] Heart Association class II, stage B heart failure. 10. Gouty arthritis. Patient remains on allopurinol, no recent recurrence. 11. Abnormal perfusion imaging showing an LV ejection fraction in the 20s, with subsequent cardiac catheterization showing LV ejection fraction of 45%, this was done at [facility] and that particular Catheterization did not show any flow-limiting disease. The perfusion study was done in December 2021, cardiac catheterization from January 2022 showed nonobstructive coronary a (more content not included)... Normal [facility] Tobacco Screening.on 023 Fall risk assessment c) Not medically indicated -[facility] [employer] y 250 DO Work Phone: Tobacco use status [facility] b) No -[facility] y 250 DO Work Phone: BNPon 07-20-2022 Natriuretic peptide B (Bld) [Mass/Vol] 72.0 pg/mL Normal <=900.0 [facility] Comment on above: Performed By: #### B MP, BNP ####[facility] [address] [place] [address]Dr. Maria T Canela PROF CHEM 8 (BAS METB)on Anion gap [Moles/Vol] 11.8 mmol/L Normal [facility] [place] [facility] Comment on above: Performed By: #### B MP, BNP ####[facility] [address] [place] [address]Dr. Maria T Canela Calcium [Mass/Vol] 9.2 mg/dL Normal 8.5-10.1 [facility] Comment on above: Performed By: #### B MP, BNP ####[facility] [address] [place] [address]Dr. Maria T Canela Chloride [Moles/Vol] 101 mmol/L Normal 98-107 [facility] Comment on above: Performed By: #### B MP, BNP ####[facility] [address] [place] [address]Dr. Maria T Canela CO2 [Moles/Vol] 28.1 mmol/L Normal 21.0-32.0 [facility] Comment on above: Performed By: #### B MP, BNP ####[facility] [address] [place] [address]Dr. Maria T Canela Creatinine [Mass/Vol] 0.82 mg/dL Normal 0.70-1.30 [facility] Comment on above: Performed By: #### B MP, BNP ####[facility] [address] [place] [address]Dr. Kettysahra Hilton EGFR-AF MICRONESIAN >60 Normal >=60 [facility] Comment on above: Performed By: #### B MP, BNP ####[facility] [address] [place], [place] [address]Dr. Kettysahra Hilton EGFR-NON AF MICRONESIAN >60 Normal >=60 [facility] Comment on above: Performed By: #### B MP, BNP ####[facility] [address] [place], [place] [address]Dr. Maria T Canela Glucose [Mass/Vol] 190 mg/dL Critically high 74-106 [facility] Comment on above: Performed By: #### B MP, BNP ####[facility] [address] [place], [place] [address]Dr. Maria T Canela Potassium [Moles/Vol] 4.9 mmol/L Normal 3.5-5.1 [facility] Comment on above: Performed By: #### B MP, BNP ####[facility] [address] [place] [address]Dr. Kettysahra Hilton Sodium [Moles/Vol] 136 mmol/L Normal 136-145 [facility] Comment on above: Performed By: #### B MP, BNP ####[facility] [address] [place] [address]Dr. Maria T Canela Urea nitrogen [Mass/Vol] 13.0 mg/dL Normal 7.0-18.0 [facility] Comment on above: Performed By: #### B MP, BNP ####[facility] [address] [place], [place] [address]DeKami Canela Urea nitrogen/Creatinine [Mass ratio] 15.9 mg/mg Normal [facility] Comment on above: Performed By: #### B MP, BNP ####[facility] [address] [place], [place] [address]TqKami Canela Office Visit (Cardiology)on 07-06-2022 Follow-up visit [...] Metabolic Panel; Status:Active - Retrospective Authorization; Requested for:[id number]; Brain Natriuretic Peptide BNP; Status:Active - Retrospective Authorization; Requested for:[id number]; CHF (NYHA class II, ACC/AHA stage C) [...] is accompanied by his who works at [facility] in the cafeteria. Prior records were [...] function test, and Lexiscan stress test at [facility]. He states he has absolutely no energy and is easily fatigued, he is short of breath and he has a nonproductive cough. He denies fever or chills. He is accompanied by his who questions whether he may change his cardiology follow-up to [facility] due to proximity to home. Patient wishes to establish care at [facility]. Predominant complaints are unrelenting fatigue, short-term memory [...] abnormal wit (more content not included)... Normal [facility] Tobacco Screening.on 023 Adult depression screening assessment No [facility] y 250 DO Work Phone: Fall risk assessment a) No falls within the last year [facility] 250 DO Work Phone: Tobacco use status [facility] b) No [facility] 250 DO Work Phone: CBC AUTO DIFFon 06-15-2022 BASO # 0.1 103/ul Normal 0.0-0.1 [facility] Comment on above: Performed By: #### C BC #### [facility] [address] [place] [address] [address] Maria T Canela Basophils/100 WBC (Bld) 0.7 % Normal 0.2-2.0 [facility] Comment on above: Performed By: #### C BC #### [facility] [address] [place] [address] Dr. Maria T Canela EO # 0.2 103/ul Normal 0.0-0.7 [facility] Comment on above: Performed By: #### C BC #### [facility] [address] [place] [address] Dr. Maria T Canela Eosinophils/100 WBC (Bld) 2.7 % Normal 0.9-7.0 [facility] Comment on above: Performed By: #### C BC #### [facility] [address] [place] [address] Dr. Maria T Canela Erythrocyte distribution width (RBC) [Ratio] 12.7 % Normal 11.0-15.0 [facility] Comment on above: Performed By: #### C BC #### [facility] [address] [place] [address] Dr. Maria T Canela Hematocrit (Bld) [Volume fraction] 39.7 % Critically low 42.0-54.0 [facility] Comment on above: Performed By: #### C BC #### [facility] [address] [place] [address] Dr. Maria T Canela Hemoglobin (Bld) [Mass/Vol] 13.4 g/dL Critically low 14.0-18.0 [facility] Comment on above: Performed By: #### C BC #### [facility] [address] [place] [address] Dr. Maria T Canela IG # 0.01 10e3/ul Normal 0.00-0.03 [facility] Comment on above: Performed By: #### C BC #### [facility] [address] [place] [address] Dr. Maria T Canela IG % 0.1 % Normal 0.0-0.5 [facility] Comment on above: Performed By: #### C BC #### [facility] [address] [place] [address] Dr. Maria T Canela LYMPH # 1.7 103/ul Normal 1.2-3.8 [facility] Comment on above: Performed By: #### C BC #### [facility] [address] [place] [address] Dr. Maria T Canela Lymphocytes/100 WBC (Bld) 25.0 % Normal 20.5-60.0 [facility] Comment on above: Performed By: #### C BC #### [facility] [address] [place] [address] Dr. Maria T Canela MANUAL DIFF REQ NO Normal [facility] Comment on above: Performed By: #### C BC #### [facility] [address] [place] [address] Dr. Maria T Canela MCH (RBC) [Entitic mass] 30.0 pg Normal 25.9-34.0 [facility] Comment on above: Performed By: #### C BC #### [facility] [address] [place] [address] Dr. Maria T Canela MCHC (RBC) [Mass/Vol] 33.8 g/dL Normal 29.9-35.2 [facility] Comment on above: Performed By: #### C BC #### [facility] [address] [place] [address] Dr. Maria T Canela MCV (RBC) [Entitic vol] 89.0 fL Normal 80.0-94.0 [facility] Comment on above: Performed By: #### C BC #### [facility] [address] [place] [address] Dr. Maria T Canela MONO # 0.6 103/ul Normal 0.3-0.8 [facility] Comment on above: Performed By: #### C BC #### [facility] [address] [place] [address] Dr. Maria T Canela Monocytes/100 WBC (Bld) 9.6 % Normal 1.7-12.0 [facility] Comment on above: Performed By: #### C BC #### [facility] [address] [place] [address] Dr. Maria T Canela NEUT # 4.1 103/ul Normal 1.4-6.5 [facility] Comment on above: Performed By: #### C BC #### [facility] [address] [place] [address] [address] Maria T Canela Neutrophils/100 WBC (Bld) 61.9 % Normal 43.0-75.0 [facility] Comment on above: Performed By: #### C BC #### [facility] [address] [place] [address] [address] Maria T Canela Platelet mean volume (Bld) [Entitic vol] 10.6 fL Normal 9.5-13.5 [facility] Comment on above: Performed By: #### C BC #### [facility] [address] [place] [address] [address] Maria T Canela PLT 163 103/ul Normal 150-450 [facility] Comment on above: Performed By: #### C BC #### [facility] [address] [place] [address] [address] Maria T Canela RBC 4.46 106/ul Critically low 4.70-6.10 [facility] Comment on above: Performed By: #### C BC #### [facility] [address] [place] [address] [address] Maria T Canela WBC 6.7 103/ul Normal 4.0-11.0 [facility] Comment on above: Performed By: #### C BC #### [facility] [address] [place] [address] [address] Maria T Canela GLYCOHEMOGLOBIN A1Con 2022 ADA RECOMMENDATION SEE BELOW Normal [facility] Comment on above: Result Comment: ADA RECOMMENDED LIMIT 4.0 - 6.0 ADA THERAPEUTIC TARGET < 7.0 ACTION SUGGESTED > 7.0 Performed By: #### A 1C #### [facility] [address] [place] [address] [address] Maria T Canela Glucose [Mass/Vol] 223 mg/dL Normal [facility] Comment on above: Performed By: #### A 1C #### [facility] [address] [place] [address] [address] Maria T Canela HbA1c (Bld) [Mass fraction] 9.4 % Critically high 4.5-6.2 [facility] Comment on above: Performed By: #### A 1C #### [facility] [address] [place] [address] [address] Maria T Canela MICROALBUMIN, RAND URon 05-31 mALB <1.3 Normal <=30.0 [facility] Comment on above: Performed By: #### M ALBR #### [facility] [address] [place] [address] [address] Maria T Canela PROF 14(COMP METB)on 023 Albumin [Mass/Vol] 3.9 g/dL Normal 3.4-5.0 [facility] Comment on above: Performed By: #### C MP #### [facility] [address] [place] [address] Dr. Maria T Canela Albumin/Globulin [Mass ratio] 1.2 {ratio} Normal [facility] Comment on above: Performed By: #### C MP #### [facility] [address] [place] [address] [address] Maria T Canela ALP [Catalytic activity/Vol] 81 U/L Normal 46-116 [facility] Comment on above: Performed By: #### C MP #### [facility] [address] [place] [address] Dr. Maria T Canela ALT [Catalytic activity/Vol] 65 U/L Critically high 16-63 [facility] Comment on above: Performed By: #### C MP #### [facility] [address] [place] [address] [address] Maria T Canela Anion gap [Moles/Vol] 12.2 mmol/L Normal [facility] [place] [facility] Comment on above: Performed By: #### C MP #### [facility] [address] [place] [address] [address] Maria T Canela AST [Catalytic activity/Vol] 47 U/L Critically high 15-37 [facility] Comment on above: Performed By: #### C MP #### [facility] [address] [place] [address] Dr. Maria T Canela Bilirubin [Mass/Vol] 0.5 mg/dL Normal 0.2-1.0 [facility] Comment on above: Performed By: #### C MP #### [facility] [address] [place] [address] [address] Maria T Canela Calcium [Mass/Vol] 9.1 mg/dL Normal 8.5-10.1 [facility] Comment on above: Performed By: #### C MP #### [facility] [address] [place] [address] [address] Maria T Canela Chloride [Moles/Vol] 98 mmol/L Normal 98-107 [facility] Comment on above: Performed By: #### C MP #### [facility] [address] [place] [address] [address] Maria T Canela CO2 [Moles/Vol] 27.3 mmol/L Normal 21.0-32.0 [facility] Comment on above: Performed By: #### C MP #### [facility] [address] [place] [address] [address] Maria T Canela Creatinine [Mass/Vol] 0.80 mg/dL Normal 0.70-1.30 [facility] Comment on above: Performed By: #### C MP #### [facility] [address] [place] [address] [address] Maria T Canela EGFR-AF MICRONESIAN >60 Normal >=60 [facility] Comment on above: Performed By: #### C MP #### [facility] [address] [place] [address] Dr[address] Maria T Canela EGFR-NON AF MICRONESIAN >60 Normal >=60 [facility] Comment on above: Performed By: #### C MP #### [facility] [address] [address] [address] Maria T Canela Globulin (S) [Mass/Vol] 3.3 g/dL Normal [facility] Comment on above: Performed By: #### C MP #### [facility] [address] [address] [address] Maria T Canela Glucose [Mass/Vol] 291 mg/dL Critically high 74-106 T [facility] Comment on above: Performed By: #### C MP #### [facility] [address] [place], [place] [address] Dr. Maria T Canela Potassium [Moles/Vol] 4.5 mmol/L Normal 3.5-5.1 [facility] Comment on above: Performed By: #### C MP #### [facility] [address] [place], [place] [address] Dr. Maria T Canela Protein [Mass/Vol] 7.2 g/dL Normal 6.4-8.2 [facility] Comment on above: Performed By: #### C MP #### [facility] [address] [place], [place] [address] Dr. Maria T Canela Sodium [Moles/Vol] 133 mmol/L Critically low 136-145 Th [facility] Comment on above: Performed By: #### C MP #### [facility] [address] [place], [place] [address] Dr. Maria T Canela Urea nitrogen [Mass/Vol] 14.0 mg/dL Normal 7.0-18.0 [facility] Comment on above: Performed By: #### C MP #### [facility] [address] [place], [place] [address] Dr. Maria T Canela Urea nitrogen/Creatinine [Mass ratio] 17.5 mg/mg Normal [facility] Comment on above: Performed By: #### C MP #### [facility] [address] [place], [place] [address] Dr. Maria T Canela Coding Summary.on 03-18-2022 Coding Summary. CD:[id number] Gh 0bWw+PGhlYWQ+FU1HPFNzO 26lfXYaaE8XF8zEBP7ALKW HEVYFEJ1FDP2frJM2GIqxR 2VybiAv AxmptEPeKQ57UKm7KWC4tQ eaMIswuN3srOHaP5s6JaJo YP72aS57ABctJYUjRqA1Nw ZpbjsgbWFy D9sbFtTwjWBtNel+PHRhYm xlIHdpZHRoPScxMDAlJyBz lJaoXY3tAk5cKIWoLAFuvJ xhcHNlOiBj d5hpMJXxRPjyDC6oyHfbF8 MknVF3VUElu9t8Dg38fFJ+ ZJLgADK1dHznLBcxt050Ll Lwb7vmSHQ3 eWQlHEokXJR0C60se4Y9BM DwGOWbKPT8qFM1pL2unEln mpgwF9UdqMFxYnP8OVP0zD ZldU6zuLud biewcV4pGki+I68HRU7LLQ TTOT2ZZsf1T5IwAvmdsQE+ FP24XZSzSC62dDIyvAPfu6 kqlXt2YrYz RAPrRKK2mNeyBPcle1HnYS EgZ06nnNFxr4R2PAHcoSlu iFDqXzIweIF8qJ1iKMjkgp row8krbfbx Gfwnr1wpsv24sH71H22mRO xnDLRhPWD9NGCbNNDnsQfa ki3qrX8gHk7+QIjub2tje7 eywNh1KfBr OWKbkbHbcLqcFGI3c9NlHj 75U9FcrXpww9HdOiu5bc38 mGGic7J2jEU1VDcmCMXdfQ 1nDAubYiX1 NAYmHrSjzL78pOFcIRzdMt 9sqHjluGvwQP9eQVBptbkb BUWqlQ1qSVAqcZJfuKihGW 4wNTBpbjtm x896EtPzSGE2DGLyrQFrV5 LimV6qAlSnDJEgDEFlP3Mt jOKiDWnmL673BXvnXyM7UI OfkjKyY5Dy MZJkvFkoMeD5g8D4Zk0Ii7 GnvvcvLZY2MTloVVCfEqJ6 NdEyEtS8F4XwVfg0YHVdoV quDT0gK7Zk CLWamlxlimtlfEJ8ILXnCA XhgW07nMIjFCohVu6rh7V2 b847PCVuFTDgjU10Aa2dlL ogMTBwdCBU vA5kqpamw7fyjunmFtOoLQ WbGTf8EUa9AHMapIzdLfIj NQH4HpV0HHX4rSBszA2scH pezzpuzZ1m Oyc+R06anO5iOFV1YTE5kx yhZZKftcNvEG46KV32G8Il PjwvdGFibGU+PGRpdiBzdH fpZR9iIoAg g2llr3FtKFyjS2MjIPPfTW obOsj3ZCArRIY4xEV6bI5c AUXqRNobs7Q0eOH5N9Sofz Yelq1mv3al YPVnTMuoX73qwXZny9J8CQ HurLA2MWXreUwfGyHxbN67 Oyc+BKOuiXlzl1AmYubrv6 hvp9sccBt2 PaZxQPLqkeTtgZhyRDP4p4 KzMe36S63nVCasEYNgRWUo MDRaNSJjvPxrta0sjB0jRh 8+PGNvbCB3 qIC0uE0oHCAmDcS9HEjiU1 63BbHgkEKyVqtlx2tng7gp sMe6GcRvCXFlgoRugRpuCD F8c2YaNr38 J79fRIueVHWfFKOeADArID CcmWkwpe0rlX0hYn5+PC9j v5bdgo92mP09wAB+PHRkIH O9iQvoTIia BRTcaN3mYNcrJfX7WLRpKp DwyR51zRVsPJdcSb7lsDsz dGwlID4nDZFdflrcf034Jt Ouj8afDBOd wRVoZMhuABL1H31nl1A8NB MwZWCwBKH3dFI4sD9igPkx bjogbGVmdDsgdmVydGljYW wdCDvwM138 IHRvcDsnPlBhdGllbnQgTm TnVQq8F8OjUkk7REWrkAdx ZW3nuBBuLJdmEb9gdKhszH uyJI0tCTNz vwtzp219YuYhe2mqAEIszE YlBWolIZO3H02el8Q7LXQs MGPbQDZ2rKH3cJ3usHoian ogbGVmdDsg ynSpvErwAImaWCeoP760UJ RvcDsnPkJpcnRoIERhdGU6 DL28QZ56ePLpg4O1cHP5A1 BhZGRpbmct zehzkMV8IYIsWLKdzI56Hh 9qcZsoFy0qBKOjGUB5HWQq lEJmQ5UfgE1rChLyRVZsFI MdU2YiiDYc THpwT030GIxqTeR8ROKfsf ZrF3XxFYUdiXwvEbZ8f5D8 Ks2VD2S7LL88DI17fAYqt4 M7gOI0Z7Jg XGLewxbmqmrxoIV0EBFwHU DdwW11Yn6ujIfyCl0iNDEk VMX2YAGbpCEaJ5GlgH5gJd AjMDAwMDAw Y6QfcFNnFPlkX829ZSmfZc B2NKDsgfZcV1ByBAByqAgc NgP0h8Q2Bo1QDMq1ZS74YD 74qWQys6J5 bMZ9A3FuJLGehzyperemsD J4VJQwPBEbxO90El9gwPnb Da2bGXUtZQD4NDLbkKCiE8 EunC3vMmTt TPGpFLHxX1LedUYyYDbsS5 10WWnzMwQ5XZRpjgSzM4Nx PNVvbCzhVcF5d1W1Af2KBO HfQJ19FQU1 sDF3FK31RK76D4QuXhmvsV FibGU+PHRhYmxlIHdpZHRo CHodKFLnOgPjxNgrOJ1dEj 9yZGVyLWNv fHcejJRsOhPja0rmJCIhPV qwBO3cdNssT1PscXH2CTZw c8i7Ct64F31iZ8KtzLT+PG NgdEF9bQY8 rH1zRzEzJsM7JWqwI602Ml UoiZSnVmfds4mjl8lunWi8 LmZ4JTSigwIkfMifAGY2l4 AqTg84P62w IHdpZHRoPSIxNSUiIHZhbG wifg6uhF2yIq6+PGNvbCB3 mNB9tB9fDwPhTwP7ELlaK9 49InRvcCIv Wcsfg8oog4hwcPh0MnYwUR WlyyCjfMyeBAI4q6ZqAy28 F0ZoyNpwu8XbApp6qf12eJ Mdj0N1rBJ2 S2JnWLTzmpgmqLEbfOaaJV 2bQIMblcliXKMmoU6jNQXl U4l1EcAjDgU7XPhrN4Qejn N9XPWssFPb KLftFZS0Y32xv1Q3XEUlHY LuJTM7rDM2bF5cdObfrobj bGVmdDsgdmVydGljYWwtYW jzL351HATs oVxkFWKysF7xCIKyxVHvcO zkIO3mYRSjssasRsPIEaYP MqtvTICQQFJEAxDNYH60NM 79dGNch7W0 gNG2H1DqGDVumpsyakkxuW P9ZIUyTZNyrM91vXAnKErw Uz2dj6Z8m831CHJhURRfoF 23An0qeLiv BOFdrMIIqQ8uphqtm3ofnw uqBtKlNBVhJSs1HQu5ZEKr tNbfYtSqCVB9NdW5CQB5cP TrdO3drWxn etafcT8sJtj+MDUvMTEvMT z5EJnyfEE+RPMnGNJ1qSyv IPwqLTDtbY7tAQLqV0i3Rc ZyPrF1MZpj T7NmUHItgvqjTp65kE6yNl UxMiD6QMtmM8UpjyF2NKJu aHLzAOjpPKI8F70fd9C8ZK MwMDAwMDA7 wZY8tH8gsHuiurowxBKfgL bljiXuiTzvNPamZFmhT210 KYIvtYsdCzO1RYkrLJMwAG 21QW33wCAn t9R5eXB1Q8NwDSZafzvcsf xtpCY6ELOnLYSrpD24gDPb USvhFr8wj5R5k149WITvPW SfqN86Ha6h wDyePSYddZVUpD3astqgs3 lfdlvdPbVjVPHuSFm5VDb9 XTMhaMlvOyMwCJH6XqB8XD G3kZGemD9w qSzusjrrfZ7nHdf+TWFsZT wvdGQ+FROpWPL5yIsvQPpn AIEomQ9yMDMgR4j0RsJpTd Q1LUalO0Py KTVsnbldKy22iA0nTjVoQe F8ROqsF6BvepB8GZKbgOOk AUtiAFX3X59ck5G5EOJtZW DcHZF5dAS9 uT7cdTcpldpkaPLdcXpssl VteXnlVMfhWEaxB401VBWr yXtbWa20rYKmqOndwbJ2B5 RkPjwvdHI+ HP22UKDpQZ57vVYacWJbf9 bhqJn5EuUwQVYxATZ7eGku VIswt3LcOTAnJ62qxIFzc8 D3CWIlpYyh qNCxVsKvkLE7iB8zRQozqw ejs3wtsapcTquks1mhaj62 uZ66Y72pWGjeEJCfQDLrVE UiIHZhbGln fn9owH9zHc0+KEUrbXB3nS B5rT7yTbDmEbP9TJdlG109 GkOvwBHzMbqud4anc7vmbR n6IxKaQDXb wqIhkPrfUAA4e2FeSi21K2 9sIHdpZHRoPSIyMCUiIHZh dTexwj9jyV6iBk7+PC9jb2 kmxz23lQ39 dHI+JVCbKTK4eGdiBKhkHE VvcR3pPSciHiU8IFRdOxCr tZ37dFTzPVlwWy7crPpwxK aaMN9sYSBo agvdp608ZxQwe0rlLDEfaI EqGRifZWH9U67om8Z3ICBh CPGgIGJ6wXY4xT4crDagun ogbGVmdDsg nzRpnCmnWIteAQkoU827SB WlkQlvDeDufLXjS6wrvcPV FH0zYqdziCZ+PXEiIBP2tQ xlPSdwYWRk lT6vCXKeE6x2IpPkCkW4JZ vjH9KwwlQ1KSZujSIoISRt mNRMuB3fimsfr5gmzfscEi AwMDAwMDt0 OKz3SZLdtIomKbEwRCX0Th R5YON8dDBflJ4gdDtmfzlu cR4eEmh+RklOOjwvdGQ+PH DoQPT4bSih KNttINYptG1fQBViD4t3Tp DmRtO4MTazL5HgysY2PEQg gCEdBYXcvQLJzQ5ckndon7 xvcjogIzAw PFGxTZo5WAa2QBNoiHwlGx JiYWV3FeC7XSO2cFLcfQ4m xIgnxpklwD5iUwm+TVJOOj wvdGQ+PHRk JEE1yVorNLwuNBItjY8bRX KnN9u8HnGsNcC9RBjlN7Hd lfX1WQVpjIHcCMXorLDEvJ 9uivhlg9jb tojdNdDvFEIcEIr8UJw3NR OyxCdiSbWuKBA0PrR3CWI8 bUJnrI1rsUlpduxbxX8rJo c+KIY6MAM1 RC41EK13J2PkDsqtsALijS U+PHRhYmxlIHdpZHRoPScx TXQySlGxeHfpHG8lJu3vQA VyLWNvbGxh cHNl (more content not included)... Normal [facility] Consent for Treatmenton 02-28 Consent for Treatment [id number] 2099 [id number]#1.0 0CD:127 Normal [facility] Heart and Vascular Office/Cl inic Noteon 03-09-2022 [...] in office. He had echocardiogram performed at [facility], which was normal. He was ordered [...] protocol. [1] patient was then referred to [place] and was placed on sotalol followed by [...] progressive dry (more content not included)... Normal [facility] Comment on above: Result Comment: Elec tronically Signed By: Camilo STARK, Kushal J\.br\Date and Time Signed: 03/09/22 11:29 EDT Progress Note-Physicianon Progress Note-Physician [id number]#1.0 0CD:127 Normal [facility] Coding Summary.on 02-10-2022 Coding Summary. CD:[id number] Gh 0bWw+PGhlYWQ+NN1NHFLoM 12viKIioE6FW4sDEN8UCRF WYHPSUA7TFT0sdBT6JOquU 2VybiAv VijykWQzSA42ECc0CRF6lD qmRVmytH8ofVUxL0a5DpJh GC96cZ17DErdMWWqDbI4Wh ZpbjsgbWFy F0dpVeLfzMUnEiy+PHRhYm xlIHdpZHRoPScxMDAlJyBz cMmwXE3yEm3pJALaZLQsiQ xhcHNlOiBj c2izCAFvMRvdDZ9lcJfuL4 KojNP0SRHhb8s1Th59sAO+ TYQaMBP8wDdcDZkzs605Na Gys1fiSYY7 mZDiRUpcLIH6Z82ip4K4EG HxSFLzPWP9qEQ7rN5daSdx sbzrM9SnbWPhVlM9GFQ8zD FgzO0wtCij lidjfJ6rMqk+J88QVA7USR LCSL2YIww6K3PvEjfckVT+ BU99WJVwKK29mRNuqDUgj4 ascGm0UvKj JTUyELM5iJzmULwrh4OqZI ZyX93ogVZsp8G0IDNvwPlt pSQuUyJwcFQ4fG9oPGxtax vzt6pyntnq Fodrg7hexo96cV42O40kXW xnOZQgEUO5TTKoPCIdqJfj ly8mvU7lGz0+OBrbn9nwf6 zwkXs4XwUf VYYqeaUgfPztRYX2r3IkNi 57B6EssHxqb7JbTuw1af27 oWCzw2Z5pMD7REntIGZsgS 5xEVedGrW9 DTQbVjXocH00pNUySFlrTt 4xtPnnsPefNO8jXQAjtddi MSFcrW3rLDFjnWGkbRziQT 4wNTBpbjtm r862JdQwCCM2EVUrlDEzN8 BodJ2oSkGhGETxKMPqY2Aq mLWdCDocH978BLfkFwH6LH AnicTvX0Xu CGDqzByoIhE4i9F7Ol8Rv9 NpphiuKAL5FWwvJIN4DsSq TqXpOyV8R6CwOme0UDSfdM ljHN6zL3Qf STWwbrgthgvrqPV8ASFhKZ ErbS04nCIcOFncLq8in0B9 u504CGDmQTAfcD33Yx5ffV ogMTBwdCBU vT7bzsifw8iuwfyjDvBbKP JlGVs1MYh3XCTkkMwtKlUa ZOX6LlN8SAA3dJBtoX7nuK hplgnpgK4k Oyc+P52ecM6uIYQ3HFG9tv xfYGPlwwMpAR60RR39Z5Fn PjwvdGFibGU+PGRpdiBzdH meIF0sSiSb r4dkr1NpHCxbV6LqEKNfCV hhPey5IDXsVZR7zCU7kY3z UJTsRThvs9T0vHF0Q0Kngi Ixgi1nz3oz YNIuQBqqS95pcKIxe0O9VI ImuTH4SFLwvFfxKpHvaE55 Oyc+ALIvyLizn1TyNurmc0 yrw3rtyYp6 DpWlDUSqvoLfbKpvOAC0v1 SgYu41E15nEIoxUXUgFDSr RWEwTAJdsHmnlz2itC8pXj 8+PGNvbCB3 qUV9zJ4bTWZbRzG5OJxxT9 88OwFoqOKjGkghh5pqx8dj zIy9JzWvSCNdifGkzVncWR Z1q3BtDq36 B29xJGzmQGIhDMVzVBWdQV TsxPuqxu9ucO9gCb2+PC9j n9tlfv46bH84pTK+PHRkIH Y9yWvzWMka LZXacL9dHYfcRaO6EPCsXc VacC81pFXnURtcDs7joFwj vBxyVB6lPORevgvbd297Pl Vdp4wgCQRv nIJxGKspEWB1W29jt3P7GJ EaALDeBZL7rXZ9nG3vxOcq bjogbGVmdDsgdmVydGljYW wcKDvhQ068 IHRvcDsnPlBhdGllbnQgTm KjTSq8S6VsIwj4SMCnrJds UE2vsXHfHCvqVj1osMkbeR exFT7lFNCa klxjj646YyNxl2ofBMPmnH HwCAccMNT0X95lv7H4ADKr HLBfHNE6sIN8cU2ssPckhq ogbGVmdDsg xnIvuNcgHCuhSBroP755TU RvcDsnPkJpcnRoIERhdGU6 HF49MY08wLVlu1S0zYA1B8 BhZGRpbmct sgeapJI1FIXhOXZylP05Ta 4vgQtsNp9xBZUyVSD3CCLi fBTiU3FmdG8bOaGbFTLfZF NpI2JsoMQd FGtqJ487GAowZyK9WCImtz FfA1RtPOFqxKvoWzC3g1M1 Ed0MQ9N9YI48CX58gEEot9 O2iNY5C0Lv IWPkhwncezyjgHO5DODpSQ ExkX06Xg7abLslAs9iXTDi VHL6GLIlsQKyL7KubQ7nKd AjMDAwMDAw U5JsqSHmIVliG659YSfoEs Q7VIKtmhZnV7JuZELnwBnu EqS6s3G6Th4MZGo0SF53SX 79qCGnd7S4 cLU4S8OzYTFjhotwsopzcW D1DFKdCQWgsB90Av2smWea Za5pNEOcXIE3LCHbdCGzB9 UioN0vKgQf XUNqVLKkB4JskLOxEDsuR9 94AWufBiK4SVVkwkKpV5Lv DGNmqTyjDwX8b8A4Rz4ACE DfJU02EVM6 kLQ6TP10MR98Z6LuJpjmkD FibGU+PHRhYmxlIHdpZHRo FOroHUNhEkVznWypHL4uZf 9yZGVyLWNv yNcfnDXbJoUaf3hlENXeWC zrZR6skTahR8IaqWS6DIZx n6q7Hg58O57bY5RxaEC+PG VefJQ4aPE1 dN1vXyRrSbQ0SDltI344Yf KuxZWlKgjkb9nop3wlpZr0 WiD5KVEffeUtlIrlYYY7u8 JsKr04E26j IHdpZHRoPSIxNSUiIHZhbG vfgn1iwF7fKx4+PGNvbCB3 hUS2yN3rRhKvUhV1VBtwH7 49InRvcCIv Jvivu3ksn9zztYo8XtJbPF GhrlMorLrsIOD3f5XqCk20 B7RblQgpd8HqOlm7ps04uP Htr1C7pLO7 K4CrVILgjfneaFGpnPizDM 5rRJAegteyWIAztS2fNYUd I7c7QqNyZxF7FGqbY5Fywt W1ILEirVId XIgoKTY9B66of1I0QGVhXA SqJOM2zBX6dZ9hdPueqges bGVmdDsgdmVydGljYWwtYW deY988YEQx nNggPVGxoG1kCJKceFMxsA sgQJ7dZVKdhrvqKaILZcZV HzbiKWRRJQOXVhIDOO97NZ 91nJJxn2Y8 xOS2A5QsCWEnlwerxnvnvO T8AHNjHDEadZ69qHTeZOui Kf5tj7V0l703CDPkSSYyhM 88Rj4yaWam SGVubFWQdB7kddwrg8wgtw eaJdRaWAXsBOb6RAq2QXBb jLkiXzAeNRM9AjB3TOZ9aT JrmG9zvVov pbddqJ1sCas+MDUvMTEvMT p4LJfymUT+DGBoYJT1kGjt TZvoNNHunF4wFXNwZ0a1Mq YjQhS2BThh R5JhSTAofqpxTe38sZ7fMa NxOvH8RQiuR0EruyW4LBRk oDGvZMoyRBR2B65er3M6LV MwMDAwMDA7 aPO5fV7qoKonaxdvyVNysR jmwtHtaWemRFqjXQapH932 LBFexMqxHdE8FPduESQoJY 27KC97gFMx o8X7bZA1M0TgWLVrdbgadl dujWJ8DQMhZUIbqM11kGLp RBjcDu6qw5E7r954ARKpWI DzlX53Me2t oIckEHVtpIBRzG1gahcow8 hpdxprOjByAUZyFRw1ZKi2 MELxvMaxUoYsDIV4KtA5PK H9vHXptZ5k cNyxfizspY3yDgc+TWFsZT wvdGQ+TLZtXWW7xApqXNmb LASqdP9iHIZvV5t7TiIqVi W7XUivO6Sn UVLygithFv60jU8jPwXkCn J9OTrkE1XrjeT0PYCeaEFc OCiqWVE9J80vv9J2BKPqQV OnHSJ5aCM9 vF4viWdqysbjoABgfYnkvt GyiIdxUAdoZNzxC971QACb cDsnPkFtYnVsYXRvcnkvU2 FtZSBEYXkg W2PjQ1DjnQdpyDP+PC90cj 71Z4PuJrzgYxn9GPXaOLK6 eQD1pV0dITDnFJnce3Y5vJ S6J9EimgYy ff5tt0ilDPEjQLxmA08waD Ecn5Z6GODltTY9ODJnpFbx BtQlmJ46Pee+PGNvbGdyb3 AkPqhto9uq s6qasEd0NvMiBVGoogCoxX yjVQC8j4OvYg98T18mXWyz ZHRoPSIzMCUiIHZhbGlnbj 8muS4wOw9+ PHSgxYP6qDI0vG8tRjYxTv B8KWuyU500NhWpxIMtOnky q5ixb5qjjGy8JrWpAQUfbk FsaWduPSJ0 h2DjWm71N2WwdDdfr8AjPl x0ww88cXSbu0R3cJN6N3Zk HEJxwmrvjDZntCazOJ0jJX BpbjtwYWRk rA9xVOUuO5f1WfYlQoN7NQ dgX7TjipH5OAMeiCNbQNRd tNUVzZ6hsupbi8muwipmKc AwMDAwMDt0 BNs8FWFsgNsbHuLoTWT2Ma G5BOS0tUGcwC4jlBnmdpdm lO9tTcu+IKf0w2mniTYxYA 1vhTN4WC14 ZE05hNOhg0N2iET0S5FnHO MopobmnydyoFU8MUNnNGBo dB84Ko2qsYgwRg4uHJOkSR J3PFDomUTx J9RgeU9hSuMrNHUcQTFrU7 MivOMkZCsoL683GFtkKlL5 LDOylsZcR1NcUESzfVveNg C1i8P4Xo8Q XE52VR79NT11lJLbe7L3lT Y4P5XnCWNjfegcmcoghNX6 XPDxYJNgaW77If9hnYviVk 6jRMSjVEP8 UTZfcAVuM5BqhC7rDsReST YwTHTfP2XciQThWEgjQ651 ZSerAkB6CBBqstMsW6WaLW FsaWduOiB0 k2L5Yz8YHd97ZT69MJ24wE Irj1F2rEJ7S4SnZXKpwvad busnqAV6EBYfRSHfmY05Xe 6ldGxyOa7o JRGiIFV8PJHnzRAsC2PypL 8bAzDdFVOjGVZxH0FlzTHi WGmiM282RIqnKpS5ASTiza DaF6WpWDAr yFsfDmD2s7M6Fo4OBRbybb m9P8BoJbyahXY+UM38SPIo QJ16pLQqzJHwf8djcJk3Ni EwMCUnIHN0 eWxl (more content not included)... Normal [facility] Consent for Procedure/Surger yon 02-09-2022 Consent for Procedure/Surgery [id number]:127 Normal [facility] Cardiovascular Reporton Cardiovascular Report [id number]#1. 00CD:127 Normal [facility] Consent for Treatmenton Consent for Treatment [id number]#1.0 0CD:127 Normal [facility] Inpatient Clinical Summaryon 02-05-2022 Inpatient Clinical Summary [place] [id number] Clinical Summary Person Information: Name: LORENA CAMPOS Age: 66 Years : 1955 Sex: Male PCP: BEENA BENÍTEZ MD Marital Status: Phone: [phone] Race: White Ethnicity: Non- or Language: Beninese Visit Id: Visit Reason: R94.39 R07.9, I25.10 Speciality: Acuity: Enc Type: Ambulatory/Same Day Surgery Med Service: Surgery Arrival: 02/05/2022 06:31:58 Discharge: Dispo Type: Address: [address] [place] [address] [phone] Provider Notes: Diagnosis: Problems Active Hypertension Acid [...] Follow up: With: Address: When: Kushal Page [facility] [place] [address] [phone] Business () 03/09/2022 11:15 AM Type Location Start [facility] Cardiology Follow Up (FT) FT.Cardiology Clinic 03/09/2022 11:15 AM 03/09/2022 11:30 AM Confirmed Patient Education Information: CV - Cardiovascular Discharge Instructions (CUSTOM) [place] [facility] Inpatient Patient Summaryon 02-05-2022 Inpatient Patient Summary [address] [address] Patient Discharge Instructions PERSON INFORMATION Name: LORENA [...] Follow up: With: Address: When: Kushal Page [address] [place], [place] [id number] [phone] Business (1) 03/09/2022 11:15 AM In the event that this physician does not participate in your insurance network, please consult with your insurance company to find a nearby participating provider. Type Location [facility] Cardiology Follow Up (FT) FT.Cardiology Clinic [...] 2 ti (more content not included)... Normal [facility] Operative Reporton 2 Operative Report SURGERY DATE: [...] an exchange length J-wire. Next a 4 Austrian sheath was placed without complications and flushed with Heparinized Saline. Next a 4 Austrian JL5 catheter was easily engaged into the [...] exchanged over a wire for a 4 Austrian 3DRC catheter. This was easily engaged into [...] exchanged over a wire for a 4 Austrian angled pigtail catheter. This is easily engaged [...] . Kushal Page M.D. kendra Dictated: 02/05/2022 [id number] Transcribed: 02/05/2022 Normal [facility] Comment on above: Result Comment: Elec tronically Signed By: Camilo STARK, Kushal Galarza\.br\Date and Time Signed: 02/05/22 13:41 EDT Patient Education - Text[place] 0 02-05-2022 Patient Education - [place], [place] CARDIOVASCULAR DISCHARGE INSTRUCTIONS Diet: ? Resume [...] you are interested in smoking cessation, contact [facility] at [phone], ext. [phone]. ? In the event you are unable to reach your physician, please call [facility] at [phone] and the glass lathe operator will assist you. Seek Immediate Medical Care for: ? Bleeding: Apply continuous pressure to the site and Call 911. ? Should the arm or leg become cold, numb, blue or white call your physician immediately. ? Signs of infection are redness, warmth, swelling, increased tenderness, colored drainage, fever or chills ? Chest pain ? Normal [facility] Coding Summary.on 02-03-2022 Coding Summary. [id number] Gh 0bWw+PGhlYWQ+PP3WIBMsR 51qpYQzjU3MQ3qVEZ2BGAY MMTBZOB6EXA2heTH9HWilH 2VybiAv VevyrHUnFO48SAy3AUU6sU yuIRndsD3hpNPxM6e6GaMp HT45uF08CXloAPAcVnF1Yy ZpbjsgbWFy R5znLvLnrYKmHvn+PHRhYm xlIHdpZHRoPScxMDAlJyBz tMezKD8pPf2jOJQfJAVqqF xhcHNlOiBj s8dqBBKmFSeoWS3coKivX1 IypFS1TGVsd8o7Xm74jOZ+ XSYxZFB4mLceHUavz414Ds Csm9seWYS7 zJPhLYivRCT0K55av4B4LS SyFFBcEPL2lPW4aN5eoYij gyjxZ3SjfYYgMeF5XPT4vE JlgR5jwWje leebmD6aJjc+P43DDJ5MZY VLTX7XBwo4S4WtAnnfhED+ KV95OZCuII30pAFreDXvb8 snxQi2TpMt ITAfBPX3pZekKMleg0YgDU RpQ13foVTsd5Q0CIEfnHnl vLJfIbUvpHD3sL2gMRlbqk wfu5bfwulk Ygkkj9ngnl58wO80F29bGK dpNBQpDPQ8LNDlQLBojAbk cg5xbN7vDl0+KXzia6jjn1 tjbYs8MyHf ISFknwDkyQaoUNJ5f3EfQw 13K1DjgWzkq2MpUjl9fc32 tSZwu9T0aMA9KStjYDRfiJ 6uJCyeOpU2 ALDdNdRpuT65uSNuJLmoAv 8ykIbdvRozCF6qAEWndpeq SEPzoF7tRDCaaEVejJdkZW 4wNTBpbjtm k914OyJsHJK3BSQclFLoP0 BneO9dNoRaBGLgQJBiU9Ff yUDzOEvvX324DMmmTpZ2OB NbgsUeF4Vu KILnuGgyOfP5k6S9Qi6Ag9 NqqvtaZZP9JEfhAWC2ElR4 WrKhYcE5Y7RxTjw0NYXghD rtKS8hR0Yz UGUchfckwvrqyBR9XEMbGX BagX27zBYwUSjvIx4ji1B7 z068KGCpAUIogZ94Xs5aiW ogMTBwdCBU cD2upbveu2dvozaeZxNoJI JuSUk9ZYs2CGKyjIegKmVl YDN3PpY4XIH8gXSkuL5zbK mgpcayqE5z Oyc+G60vvP0pYFI9CCS3ox mjZFPdxhOyEL33LK21P5Cz PjwvdGFibGU+PGRpdiBzdH yqDD4hAtOz k5jks6ClLYlpD9SuNBAlLO emWlh2HEWqIDK8bTU9jL1n NMBoHAfuw3R8vRM0E7Vaap Qhvr5ib3vg LBPbVCoxB12ykNZlz8Q0JS IygBE0PNClpHenNbYlwX06 Oyc+XKDtjZvso0LwZxhmz3 hxj8bvcBh6 TmMhPCVddqLdvGznMOS8j0 MkDo14N60bFAxkVJWqHQTa WAFmOEQesOvfcl7vfZ5kVo 8+PGNvbCB3 oDW1aZ2tUMKlBmG1HCxvE8 88GjJcdDIlEeqbw9eig5hk gRn3IdZjINDbbrTgaPtyTO C0q5VsXa18 R23cHCpwOWLoZBCvBXVuJD MkqWdupn2lhY6jZo1+PC9j d5lgqf08rN67qLK+PHRkIH E8bOayBXrq IUXmuJ1uSHugVjH3NJGmCx GusN76nJSlTSbgLd9kzPsj mDpxFN7jFNQnymfef954Ka Lfa1nsTBAe fULqZOloJWC2E54br6E2ET UkWYMbAUD3zVO4vE8geRgy bjogbGVmdDsgdmVydGljYW oeTGogU720 IHRvcDsnPlBhdGllbnQgTm ZsSKu0B7EeIex3TUXekOsz RJ6qvGTbKObtAh7gxJiijN qrPM2rGFZg hwixy451ZyYpy8zuVPGpvN RsVUfkCMF9Z47zw5T3VZVv SWEzZFI9zFO1nQ2swChpxk ogbGVmdDsg ecRhtViiEQemHAwzG332DV RvcDsnPkJpcnRoIERhdGU6 SY86HV55aWMri2D9kBU3D8 BhZGRpbmct nolsoGO5JYFyYDZydM19Jz 7vhQmgVt0aTUGtTGG4XVPa kHEjX0ZigL2gEbYrPYBeKZ HlI7IqhLSh QLjdF478ROntRvM7UNEvna MhU3MbAYLziDpsMhX9c7M3 Ev7IB7S4CL53RA24tNOsk6 M3uOO8O0Ds ROYpjdiyziyeyOG9WWIsKB ZhqM42Wr3ehZdiMr1vTTRz QGU2QZVxhRLiB5AanA3fEb AjMDAwMDAw N0GaxTJyAFfiI390GKxoMj G2GNLemgNpX8ZuKGQkfLze RlX9p9R0Fr0NHGo2ZL41PP 15aLMnj4V1 xUO0Y1XyGFZehvwifdfsjZ L7WKUdFYEehC82Am2cbHak Nf3mEAErMPJ3GXGqtKStK7 TgaF3pLlHd MURuNAVhN7SppPKtYUpiX4 62XPctKkQ1IBEtsiUbC3Pq CMRplNvsOzR4j3H5Ho8WIE DmSA69OQM7 hTO7TY50JF07N1SaLnnxvG FibGU+PHRhYmxlIHdpZHRo MUslEVLoDcLuqIwgJR6oIe 9yZGVyLWNv oXrdgKEyRhHin0urPCYbVT xcQA3ppRacE7DbxPO3GELz k8q3Iw61N70pH6NtlGI+PG NjzYJ6xIQ2 uM9pSdJxBeE6GRylR118Hz NzwHGpZdbmz6ork3mrlFv8 HgX5PMEiefExuWliBXN6r4 CmEw37S87w IHdpZHRoPSIxNSUiIHZhbG wiov5nfQ8tDx7+PGNvbCB3 nJD8sA3iAvYnWjX3YJohQ5 49InRvcCIv Ndqjt6ona2gscMy8DjKsRV EjjnCmrRsuTRX5r9JoNg39 P0HyrHqkk6LwKty9uq93xD Cax2K3uCZ9 S1RrSVAubesjvJXvgPtuBJ 1aTYSksvrpXDWutQ9zKNJn Q9e9BoFqDwY8NCcyR6Pvji L5OAYdnHFv EGtuVLB5R83cf9O9ZNQfZF SiTUL1sHE4pV3bmPsfbdvu bGVmdDsgdmVydGljYWwtYW epL364TKXu wKzyAFJoqX2qQTBxxGBpoC yrAP0bJJRveonyVdUQBdYC WrwlHQQZIEYZRmRYOB34VO 00xEKck8F6 fRD9M8HdXFAdpbzgcviyjF C5NGRpQKLkeL91uRTvUVbh Zz1ky7P4t349KQZaUVFwwF 79Ae4hdYaf DPHysQOTbX2ovileb2moik scIeTnJCGtJYe4PXu1VFJl iSdeWuNqKFW1EyN5DXF3lH OjoB1wkNxy mcaffL6mVrv+MDUvMTEvMT f5OGzqaKO+CADyFQA0rWsj XThnRBIzbW8mKSGuO4p1Ti XqFfK5LIff U7JdVMNpjuhkSg90tK5vDv QmFfA9TRqmM2OapzD6WREl sKDxNWtxSZY4H00dv6I4HR MwMDAwMDA7 vJT9qQ7ghGwvfomglUYlwZ unqvYeqIddRDpuZCiiJ616 WYPurMkmUpI8HAknSVPiIH 38ZC77xROd u5U8mTH0R6JnYDUjoiwzfr dnbZD2KCXpUNQxtI34iGAe TJgfLv0jc7G8j454TVQgWJ LqyV50Zw9s zWyeMPArgXWDwA0kgemmt7 aowtnhNqGwTHSfEWs1PDo6 FNSueCzoExXwZDJ7YgI2BX W4mEQnhM0l qZmggahdeG8pLjf+TWFsZT wvdGQ+XGRuUZO2mCylIYsu GRKwrL3vUZLoC6x7OdMlTk B4MZymT1Uu CBNdkfdjOt15mM7lHdEmHb P5YNlcJ7XevbD1OGPgiOLj CNvvDHA2F81he0O0ORCsLW QwTKJ1mVD9 mF0dqQoddkgutTHhvMlftu TnuZlzXFdzFBbpM810EPCl hRaxLz10oFGnwWvkhgU6S5 RkPjwvdHI+ LE38KAFxWA33vUAagANkr3 egwBs2EhMzODBkIYL0kMut UQsdu2CmTCWyZ54nkZQuq4 B0ONOmuKxr kOTzZbSpsUJ7oT6oNBqxve uor5mnppmmHbjre2ltgc76 oC35C75wEAqwNHDeBPYbWB UiIHZhbGln dn3qgH5mIy4+WJIfnPA6kL D2pR5tXbLsSiP2ZZzhN605 UxFgdWBkNbica2pwp0bbnB l1RyEaAXGd hbLdlFltRDD9a7LrNw64D9 9sIHdpZHRoPSIyMCUiIHZh dRkewp9bpZ9gRi1+PC9jb2 knfj03iN92 dHI+VZTnMOL0dVnnAQfuGS TxcX1tEIokSlH8NKFcHiOb xX66xAXxYIkzZa7ftFvtwO oaMV6dWMWa gqvqh494NzAgs7ioEKLxfV HtQFovJND5J14uh5U2BWSd VPMyJFE2fFS0jT3ebZkeld ogbGVmdDsg wvTswLabKCmkMRirA420CQ VcgHmbNlHwuNYwW6kuybDS UI1pNwuvqBB+NMYeOYD9hP xlPSdwYWRk kL0aEPMqA3w5BqZaZfZ3XZ ecB8HvgfL2UPGtlVOhAXWk wCRAoM0wqyxup8elozrdHu AwMDAwMDt0 NEg2PBHrhCzsAvWlGVE3Kx S8JZL9tBZbbR5jzPzzzejv pP8fJqe+RklOOjwvdGQ+PH QbAAZ8sYwi TFolVERfsX7nZAMaE9r7Mw YtCbW3AZkdD1HrawU0TWFv bDAvGZVglGVAtS3ficezb1 xvcjogIzAw EBPgRYe2LVr3PJDmhGdqWr AaJXD1LoZ1BWH4eSYjhC0a aKaonzixvY9rPbc+TVJOOj wvdGQ+PHRk QFU5tRclWClwGDKwaP4eYA UkT5x0UdKnByR4JShlZ2Gu eyX2LUPldAQtCJWqtMRZqI 6imgjzv1qf ubgpVaVrBUGpUJl0BGo6LS FksWowAdUhHMS0AsT3ZRV2 gUBijK6vvQzktfnyeL3pSf c+MIQ9ZWW1 WF87PE31I7QhBsaueTUunL U+PHRhYmxlIHdpZHRoPScx JPOtZlKxeDoaGT3kEx3yWL VyLWNvbGxh cHNl (more content not included)... Normal [facility] Outside Recordson 01-29-2022 Outside Records [id number]:127 Normal [facility] Auto Diffon 01-28-2022 Basophils/100 WBC (Bld) 1.0 % Normal 0.0-2.0 [facility] Comment on above: Order Comment: Order Added by Discern Expert. Performed By: #### 2 [id number], [id number], [id number], [id number] ####[facility] [address] [place] [address] Basophils/Leukocytes Auto (Bld) [Pure # fraction] 0.0 E9/L Normal 0.0-0.2 [facility] Comment on above: Order Comment: Order Added by Luis Expert. Performed By: #### 2 [id number], [id number], [id number], [id number] ####[facility] [address] [place] [address] Eosinophils/100 WBC (Bld) 3.9 % Normal 0.0-8.0 [facility] Comment on above: Order Comment: Order Added by Luis Expert. Performed By: #### 2 [id number], [id number], [id number], [id number] ####[facility] [address] [place] [address] Eosinophils/Leukocyte s Auto (Bld) [Pure # fraction] 0.2 E9/L Normal 0.0-0.5 [facility] Comment on above: Order Comment: Order Added by Discern Expert. Performed By: #### 2 [id number], [id number], [id number], [id number] ####[place] [address] [place] [address] Lymphocytes/100 WBC (Bld) 27.4 % Normal 14.0-50.0 [facility] Comment on above: Order Comment: Order Added by Luis Expert. Performed By: #### 2 [id number], [id number], [id number], [id number] ####[address] [address] Lymphocytes/Leukocyte s Auto (Bld) [Pure # fraction] 1.3 E9/L Normal 1.0-4.0 [facility] Comment on above: Order Comment: Order Added by Luis Expert. Performed By: #### 2 [id number], [id number], 8195087, [id number] ####[address] [address] Monocytes/100 WBC (Bld) 8.1 % Normal 4.0-14.0 [facility] Comment on above: Order Comment: Order Added by Discern Expert. Performed By: #### 2 [id number], [id number], [id number], [id number] ####[place] [address] [place] [address] Monocytes/Leukocytes Auto (Bld) [Pure # fraction] 0.4 E9/L Normal 0.2-1.0 [facility] Comment on above: Order Comment: Order Added by Luis Expert. Performed By: #### 2 077765, [id number], 0815645, [id number] ####[address] [place] [address] Neutrophils/100 WBC (Bld) 59.6 % Normal 36.0-75.0 [facility] Comment on above: Order Comment: Order Added by Discern Expert. Performed By: #### 2 [id number], [id number], 3487482, [id number] ####[facility] [address] [place] [address] Neutrophils/Leukocyte s Auto (Bld) [Pure # fraction] 2.9 E9/L Normal 2.0-7.5 [facility] Comment on above: Order Comment: Order Added by Discern Expert. Performed By: #### 2 473480, 8553062, 7000596, [id number] ####[facility] [address] [place] [address] BMPon 01-28-2022 Anion gap [Moles/Vol] 15 mmol/L Normal 6-16 [facility] Comment on above: Performed By: #### 2 742614, 0014145, 2654827, [id number] ####[facility] [address] [place] [address] Calcium [Mass/Vol] 9.2 mg/dL Normal 8.9-11.1 [facility] Comment on above: Performed By: #### 2 538492, 1088585, 4315643, 83707859 ####[facility] [address] [place] [address] Chloride [Moles/Vol] 100 mmol/L Low 101-111 [facility] Comment on above: Performed By: #### 2 603548, 6045198, 3679523, 80987741 ####[facility] [address] [place] [address] CO2 [Moles/Vol] 24 mmol/L Normal 21-31 [facility] Comment on above: Performed By: #### 2 420680, 3773397, 5014357, [id number] ####[facility] [address] [place] [address] Creatinine [Mass/Vol] 0.8 mg/dL Normal 0.5-1.3 [facility] Comment on above: Performed By: #### 2 949662, 8422911, 9406166, [id number] ####[facility] [address] [place] [address] Glucose [Mass/Vol] 260 mg/dL High 55-199 [facility] Comment on above: Result Comment: If t his glucose result represents a fasting glucose, interpretation should refer to the following reference range: 55-99 mg/dL Performed By: #### 2 175708, 4993723, 9522564, [id number] ####[facility] [address] [place] [address] Potassium [Moles/Vol] 4.4 mmol/L Normal 3.5-5.3 [facility] Comment on above: Performed By: #### 2 608999, 4048004, 8094023, [id number] ####[facility] [address] [place] [address] Sodium [Moles/Vol] 135 mmol/L Normal 135-145 [facility] Comment on above: Performed By: #### 2 823246, 0960140, 7660926, 93435436 ####[facility] [address] [place] [address] Urea nitrogen [Mass/Vol] 13 mg/dL Normal 5-21 [facility] Comment on above: Performed By: #### 2 557915, 5329675, 7975570, [id number] ####[facility] [address] [place] [address] Urea nitrogen/Creatinine [Mass ratio] 16 No Units Normal 10-20 [facility] Comment on above: Performed By: #### 2 186854, 4132815, 5541573, [id number] ####[facility] [address] [place] [address] CBC w/ Auto Diffon 2 Erythrocyte distribution width (RBC) [Ratio] 13.9 % Normal 10.9-14.2 [facility] Comment on above: Performed By: #### 2 499685, 6938610, 0956267, 25986858 ####[place] [address] [place] [id number] Hematocrit (Bld) [Volume fraction] 39.6 % Normal 37.7-49.0 [facility] Comment on above: Performed By: #### 2 591703, 3088937, 6755332, 84425835 ####[place] [address] Hemoglobin (Bld) [Mass/Vol] 13.5 g/dL Normal 13.5-17.5 [facility] Comment on above: Performed By: #### 2 847383, 2215653, 0581089, 41024237 ####[address] [address] MCH (RBC) [Entitic mass] 30.7 pg Normal 27.0-34.0 [facility] Comment on above: Performed By: #### 2 085726, 8103503, 0559279, 65284308 ####[address] [address] MCHC (RBC) [Mass/Vol] 34.2 g/dL Normal 31.4-36.0 [facility] Comment on above: Performed By: #### 2 805130, 2187900, 4623309, 76339767 ####[address] [address] MCV (RBC) [Entitic vol] 89.7 fL Normal 80.0-100.0 [facility] Comment on above: Performed By: #### 2 470036, 8969645, 5730482, 95429315 ####[address] [address] Platelet mean volume (Bld) [Entitic vol] 8.9 fL Normal 6.4-10.8 [facility] Comment on above: Performed By: #### 2 784191, 2540655, 3225441, 94685914 ####[facility] [place] [address] Platelets (Bld) [#/Vol] 153.0 E9/L Normal 150.0-500.0 [facility] Comment on above: Performed By: #### 2 145999, 6165111, 8500376, 00028177 ####[facility] [address] [place] [address] RBC (Bld) [#/Vol] 4.4 E12/L Normal 4.3-5.9 [facility] Comment on above: Performed By: #### 2 433322, 6980984, 9158044, 72650954 ####[facility] [address] [place] [address] WBC corrected for nucl RBC Auto (Bld) [#/Vol] 4.9 E9/L Normal 4.0-11.0 [facility] Comment on above: Performed By: #### 2 488519, 7695340, 4978367, 08158559 ####[facility] [address] [place] [address] CHEMISTRYOrdered By: SYSTEM SYSTEM on 01-28-2022 Anion [...] rate/Area] mL/min/1.73 m2 Normal >=59mL/min/1. 73 m2 [facility] Chem S Glucose [Mass/Vol] 260 mg/dL High [...] FT Remisol Coding Summary.on 01-28-2022 Coding Summary. CD:[id number] Gh 0bWw+PGhlYWQ+KJ1JGWJqA 49glWKozW4JC4xAOZ7YLCE GCBKRLR5WTM7agMQ8MOuwE 2VybiAv UbqzhOBdCA16XUk4IKO4rI jfMBxgwA6jmTUiI1h8NeZo GE18qA10ISlfOZRpZlC9Ym ZpbjsgbWFy M4byTbGoeFTrArx+PHRhYm xlIHdpZHRoPScxMDAlJyBz yWfsDH9aYz4vVQRoCLAktN xhcHNlOiBj l4jfOVTiXLvvFP9lbHxhL2 KcqWV7HLTgn6y6Jj63xKC+ YVNxDHW1rKavYJzmj137Cr Tct5jvLGV3 bVGnGDyhFRK6P67pn0Q5GP KpTCQjNDM9pUT3sP6hhWji ntjmT7HitWMbIaT1VTL8pW VujW5eoAdi giwelF1iLxz+K58FPR7CQL GQUF7IVdr4G3TqJeqekRI+ GZ99YWGmCF38fGJpdWUcs9 utqQf5RsNp YKUcEGN9qEysYXnjb4RsAM KiO62fjLEic4C2DHIzgWrs cGWtMsQnsYK5cF8tUHiqyq css5pddpdl Vaiol5wzxm78eL20A40qCZ jxHGKlYOZ2FWUiPGCytWvt vm3pwW2rIc3+WFdkp7wpj3 mukLv3FxLg NQJbjnOmlWhsJFF6k4XlGp 51X3VzsGvwi8MfZsk6dj86 aALgn8S3rHS8HQxgDAWfmB 9zYCccKbO4 HENkXcIsrA19yBIyLPqsDr 0pkVtkfWnyJG2qCACzkkmv BKZtjR9nWTWsyGPmeSbzXJ 4wNTBpbjtm r752MeUiIOK8QFUniRAtL1 VgxQ9sSjEdNUKeFLEwM9Ss vGPrNEloS899OBooWuR1GP RubbLiF0Qa VTFfpNqrErQ4w6X4Aj2Mx8 TmawjtNCQ8GMmaQGU2NyQk IvFgMcQ3Z9GxZrd9QQVkgD poNL4uY9Kk LXQnjjlrrjzbsCC2QFUjHH GfgG72xAOtAScoEk2gg0E1 f130YQEgNFCvlR85Bm9biZ ogMTBwdCBU tB5jflwqh5qztmzwHvYsGC WpFMp8LFo4YMHkmOwhXmYj UAN5QxE9RJO0bNRpaS2fsW vfxmdidM6r Oyc+D20rdR5sAND0XNY3aw lqFGAjczFkNP48AT49B9Wi PjwvdGFibGU+PGRpdiBzdH cgBO3wYtWs b5gix7WrABbtR4AxPJCjVH cbWth8PMEhXVN2oYX8kG2k QAZfDUgyo8R5dIG6W6Yvgu Igpu9nv9vw RVKwFWykO45kyFSfv2J6MZ ZyrDD4QVRkdQrhUsNcfA66 Oyc+DWNheIwac9XfAgiyc0 api2zaxLr0 PlTnDCWhcaXnsGiqMBC1k8 SbXz99X99eZGgwUBNvIVZz RFKgEXXkxYiace2gyI7oAf 8+PGNvbCB3 xZN9xA5dVOToEoO5HEgwY5 75WhPitYQoQjegv9dhj3zf fSm7KqPuBOVcaeYseZweQU A6u4OfGf02 N03yPRyuMLBbVUXbNTDsBO LhwOnmsy9rnE7zUc7+PC9j u9slgv62pM45xIG+PHRkIH D1sWjkNEgv JLRooX5eBRyaJcJ1FZBgSq UceR83hKCoOGzjNj0tsLlq vXhkRW3hZKFxlzqjj876Hc Uis1ndAKNg eBFbMOxdRZK4X15ew2K4SZ FmUXLvECI3gTW9lC7pdTir bjogbGVmdDsgdmVydGljYW jqJIdxJ609 IHRvcDsnPlBhdGllbnQgTm MeULm7T9XwSzt2CPBdtKib NI7jiVAaUUcvXn9ojLsoyO ygNZ6uGUAy tverj715HxDxa8ulOCRqsY SoKBthIPN9J52tv8L8XSBo ENMvLNI2vIB2nN9koBmtre ogbGVmdDsg ntPyzFkhVNfhGIpxC062XX RvcDsnPkJpcnRoIERhdGU6 OD49DY64iIHvg8M9gZS9W9 BhZGRpbmct sfnagQK4ZSCfWTUlsO28Oc 3vmFzmTk8pDQTvPMZ7FUIi hVFaR7LdbX0hNlDjOWGyCR PrD8RajNEk PPewJ049DFlcUhM9EYUhpm AoO2VfIPDkiAxrZlS8w5S7 Qs6EJ3L5BM97XW04yCLda0 U7sGN8H2Bz IWCnxbeudwsnlSX6XVDrMR JimP46Wi5pdIcaQm9fDUVd FMA8ZOYweLFmT4VnoH5bYa AjMDAwMDAw B5DtxMTpHKkkZ835NBkkLm Q3GONzdrNpE8KeZRRxuDky QeS8g9D4Yi3VQUx2YV34JN 55cLOqg1C7 rYW1M5CnDCAcwrrzdgjplF C6KCUuXVMeyH20Wg2iqUuf Cl3tRQAiHZL6NBSvsCMzZ6 IdyO4zIuUq WINjBLArW9SlpGUiBLdbL4 12VOziMbG4KGFzslIoU0Ex TCEbzLhlDzH1l7H4Kt5JNX IuNP59RAA3 uDP4YK91UB58F0UvQwfdcZ FibGU+PHRhYmxlIHdpZHRo DGpwMOFzFaHfsWmgQJ0nOp 9yZGVyLWNv aYmtsOYpJiFzu3cuIUUsNL avHE7ibLxfS3WgkGF4CHXb t3v5Cp85R81pJ9BodBT+PG GxkAY5fME5 oX4gBxGcYvV0WBqcE367Bj LskFYkSolpj8rec0wnaOp5 LiO7KCJxbvGpnRzjXYZ2g2 LfVd77X74j IHdpZHRoPSIxNSUiIHZhbG kiib0lgB3rJf0+PGNvbCB3 yBJ7pQ8hSnOiTkL1USdqI1 49InRvcCIv Efpoe1fxx6zljIp3XzLiKE QidjIldNsxTJL0n8UoUf14 O0ZsrAmui6KyIzr7nj76oE Ntj0G9yAJ2 P6TcOVHjltkusUOzeEsiCU 8iOHYqewvkYMEfcJ2mUAHk Q4m9EqFzErA7WPojP7Ryql D0PSYubQNd HUizIAX4O61zr4Y8GCOoLM IxQFR0lFV7xC9mhIkwqccj bGVmdDsgdmVydGljYWwtYW ezO027WCWt iEblNTKyaR7kUPZahIZogZ ugMJ1fKSSgyfneTiVWZuLT ZepcTDXZWBBCYcTQXR37OX 30yOUro4K2 aAT1R4DsVPKpbyxeeglvxK V1CABjIRSxxQ38vEBtKKti Yz0uj3Z5y779LBEaCIBbiY 32Nh1geFjq ULQfmGZImR3kpccne9utgk mhXvChPVMeMWt0MRg7HMKs sQatDsYgMXU3FjI5ULX7xT OcuV6gcRra ryjpoO1rUmf+MDUvMTEvMT i7KYlapRP+QGThTCT3eUdh HYnnVZKfwC2eYKYgO5m2Cr NjVyV4RFab B8YvUTEhmdtrPk69fK4bGh ZhXjB9OIqvJ8IizmM1CLZu lVFbAWzwTWN7X17ik1D2XI MwMDAwMDA7 uJU1vV7ddRruffkjsZFmaU pwfyKfnDhcGUknZCygT825 ZMMusEbdAhP5HKwdKNRmWE 48LV24dMDa x1C2qRQ3W0KbNPZphzqotk xppMQ9NKIvVMEseB87pOWv RUooMf1mw6B0i143JJHvHQ IvtR76Mj3v aLjsKDIefJAVwH3tsukob8 zzsetlGqOsYGSiRYb3IKo4 FDDqtSkqXwOfGAX7JqI9UX D1dJYpqV0x tDgbbsdnlA8sXju+TWFsZT wvdGQ+QQIqQKZ0vCgmTOct GBIkoZ0gNQNpK3h2GtKoJq I3PPeoU4Km KAPdqfjvIo09fT8qWmCvXo I3JBuzG4OuxgA4UNLwdORl XOwuZMA7Z75he8Q5IJJtVT WrEYH8eMX7 uS7ulZzazjtciKRpgLxznc KctAoiWRtbBDlwA059FDEc wOpaEz94aVRzvPoiewN4J0 RkPjwvdHI+ OF69EJCgHW75jOQhbGGpt2 vneCb1GtLoFALtGAW3rUqo ZRuub5EwJCRjZ09siAVhj4 D3SKAohVeh tMQmGoUnlEY4kV8oAFllti xyc9iedrpuYupwj0ftod06 iP15T05kJXbxEQOoEBMsCS UiIHZhbGln il2jrR1ePq9+IEKlfTQ4aO X6jC0qOxGfQdE1ACxaC922 YrFcwHZwWhojz2ygx4iujL r9MnZzXOWv wdGtiKzxYAF0f6RvQl92I5 9sIHdpZHRoPSIyMCUiIHZh nThvul4xuE6aTf2+PC9jb2 vuup31pL68 dHI+MZExHIP8qMmmLMtrYR PbeG7jDBxuQoW8SWHyGzCd fA00wUTyBRefUk8meWgckM hcQZ6bOJTy kyghg883CqSuw4rxOTHtvM FoTTshLNN1P94rc2B1EMJh WMDnODX4yWJ7vG9mxWoysj ogbGVmdDsg ztLuwJskADinVLxoH259VK BbqRbiUrIajFQxT7cmcmXO WE0mVkshtAI+AVEaSII3vE xlPSdwYWRk rY9wFZRbZ9g4SzLoDhT6TW kaW7MhhoZ7VVPsnBWlGFVe jBZBeZ3itymll9qwlzqxGl AwMDAwMDt0 SNv5PWGzcKfyWzCzUOP2Rh D6HRA3dAGyvL8esOmuvguv jY6jMil+RklOOjwvdGQ+PH XeGCL8lUyb AFemKDNbzM1lKJDyN3p4Qo KzCdL8BQnfO2ObshZ4USRh oGXoNFQxiCAAfV4ngnluf0 xvcjogIzAw LZRuEAg8APb3YSCtfIpaVy AgXSY7PnE3MSJ5bZAyyP8a dXcqgfdhbL1lWic+TVJOOj wvdGQ+PHRk OGP7qQqgLWjeTBUtaI7oRU JmS3v8EmMuWvH4QHtlR8Yd omK4NMYmrLIvGFCvxIPRrT 7qhamjx4te vbbjToXfUHDyYUh9CDu8NL IeiTnnQsIlTDQ5AaS6FJM1 mMLydL9yuWwhfpeomY1qEj c+XNX6OQD9 WQ03VV59N0EzXrtruYWcmT U+PHRhYmxlIHdpZHRoPScx AACbEmNscHxkDG9pVn8qKO VyLWNvbGxh cHNl (more content not included)... Normal [facility] Consent for Treatmenton 12-31 Consent for Treatment [id number]#1.0 0CD:127 Normal [facility] HEMATOLOGYOrdered By: SYSTEM SYSTEM on 01-28-2022 Basophils/100 [...] MDRD (S/P/Bld) [Vol rate/Area] mL/min/{1.73_m2} Normal >=59 [facility] Comment on above: Order Comment: Order added by Discern Expert. Result Comment: eGFR is race adjusted. AA=. Performed By: #### 2 814953, 0291763, 2147769, [id number] ####[facility] [address] [place] [address] GFR/1.73 sq M.predicted among non-blacks MDRD (S/P/Bld) [Vol rate/Area] mL/min/{1.73_m2} Normal >=59 [facility] Comment on above: Order Comment: Order added by Discern Expert. Result Comment: Rn Surgery Icu neil kidney disease could be indicated at eGFR's of less than 60 mL/min/1.73m2. Kidney failure is indicated at less than 15 mL/min/1.73m2. Performed By: #### 2 774441, 6737467, 1446875, [id number] ####[facility] [address] [place] [address] Consent for Procedure/Surger yon 01-27-2022 Consent for Procedure/Surgery [id number]#1.0 0CD:127 Normal [facility] Progress Note-Physicianon Progress Note-Physician [id number]#1.0 0CD:127 Normal [facility] Pre-Certification Formon Pre-Certification Form [id number]#1.0 0CD:127 Normal [facility] Coding Summary.on 01-23-2022 Coding Summary. CD:[id number] Gh 0bWw+PGhlYWQ+FF1NBRTrG 26xaONtmL7TP6qEKE1LZNK FEBUVNP8OCK8qmPI5IIbmS 2VybiAv IofinSFfML78PIp0VMD8hR wmIMxniZ3siAOkQ3a9HiXy XJ01nP24FCskBKFiWsH8Cm ZpbjsgbWFy S6cuIlBywBEoZxt+PHRhYm xlIHdpZHRoPScxMDAlJyBz aIhpQW0nTr6vRFXxJSQliM xhcHNlOiBj w2jwMAHcNUaiFD4xaAfhB9 CurWB8KKNbi0o2Ll21rTS+ NEVjCCP6vGhuPAaks653At Omo2qeBHM6 vWFeIZbzFPB1E37zq8V1TO JtOKZjSGE5iHG1qN9koKdn thniT8RopVQmMvH7MFV5jR GpyS9tdJle bgjjnG6cEhk+G23ARO5WLA BNVP7WGpp4I5OxNqzejEO+ HM49GFOrZY53iRHnoJLmq2 edfKk8ZsLw NUDnMUX0jXbzSRcqz0RuNR HwF04mcFAsk3F4FDIxpBoj zRJzNlVamQR6dJ2nPTuhyo mmu9batmyo Jbvrp0imcz55vW07B79vHL kcBZFhQLZ9SHGqWALwxFqs xf0hwH2bIn9+OQvgd4ues9 wbxSc9IyMq XNTrwqVprOqdUVJ2c4IuYn 95Q7HmrFzgd5IeOap8fc37 wDPtt3Y1tIP2YKxvQDYouR 4iVGpzXnB7 PTTpYoRfuY95hYMiBPmpIk 8ouUkklYmoPB3hBHCczmwt CEUgaE9iWPAiyQFnkGebOZ 4wNTBpbjtm r404KbCtSMY0FXJhhNUtP6 MxfC6tJeQcVCCiPBKiM0Re mWYhNCvkB886INieGdI8QU RbadXtE6Co ESAwhYbuTaE4j2Z1Fg0Dd7 YhzmqfSCJ4OCvfSGS3UrF5 VbUhPiL3U6MgNsh1QPFrlT mfSX6hZ1Ac FHDdejfwsjvniJM3KOZpYN CaaE31yVEnJEieCx7wj4Q1 p733YLYeWDNxbT63Ne3qpP ogMTBwdCBU dC2mjjqwl9kqsozbLqOzXE KiYUf6WQs0EZJafCynWkIz TOP6PhU4BLK6zLMkjR7nnQ ghmfqjoT3n Oyc+V25knH0bUBH4SEC1ef rhDGJtlhZqIK22IP44B3Gw PjwvdGFibGU+PGRpdiBzdH aeKB9vIyJf o6mfk8PkZIbcR5CkZUQyUD gyDnr0BUUqZUL2zIF0vW4o OOCkFHawo9S3dRH2I7Moyz Fpwm2hu1gt ZMXtPTzcI02tnVZxw4W5FQ FbbGU8IBAbbOnrAzZcpG70 Oyc+SDWisTuiv7KsUyesv7 sew0wgoUe1 ZoGtMLDvktUitMneGRT9c2 TgOg02C29rUHesPRQlPQVs QTVwJXFehKbshb0ehO3bTj 8+PGNvbCB3 lFX5gP4lPOPxBqS8SJusN4 90UmPuyPXhTpdsj3rak9ji qSq0DlSgCTZbowOrxNsqDY D2t5BrKv21 Y29tPOfqMLReRJMoEIYbQV SsdXcmbf4xjN2hTw6+PC9j n6vmym40mK44zFJ+PHRkIH Q1xZwrIDis GMJmcS5gZLmvDfJ8GAUbXw PczW62kMZrJUdzMa2waNwn zNijIT6jCOVnjhkmd574Lf Pcx8ybYNYz vDWmMZqmUYY9H22mh9C5LP GoEPJoIZW0wZH2yX5uiVir bjogbGVmdDsgdmVydGljYW jiXRfhE291 IHRvcDsnPlBhdGllbnQgTm YfEXo0O6TjWat8SQGbrQqr WH2fnCFvWTsdTy3whCtnlE vgMA3eSVAd pmrhj405CnPys9vuUKZpeK MfQEzyMUT6R82ly3M2JKKb WBMlHPO1fKG2wB3jxNmzuv ogbGVmdDsg pzIuiDmtEPlqJRkqT338UA RvcDsnPkJpcnRoIERhdGU6 HC24OG91fNGij7C2wXP5D4 BhZGRpbmct szprbHE4SVNkNBOyzG38Ty 3tsGemKz4jWKUpUSO2NHQk dYKyX7PwtL7nDpXwNTZcMA JuV0HvmBKd EHjtP881FMpvPpL9BGScxa HaG2AzODBswEviXlP8h2I3 Gl1JS1A9KZ88IB47wKFkz4 L7jUQ2O6Lg RDSsdkutyoftzAV3PPRuZM XcbL30Wf1jaOhwGr6nNDCt YUA4MLHhhBJcJ5ExbO5uAl AjMDAwMDAw J1HweMQcYAkaZ661RGhzNt C4UWDgkcJyJ5KiSVCkmDnz PpD0g2N7Yt7ZYMo6BQ58CK 19eSQxm7B5 xCV4H2JfYJCfsyfisdgncU D1UVMvJZKatO95Ow8uaOod Fl9oSGCrCRU4SXWhkLFyV4 MgvJ6gHaDi ZIHuIOYuI2WfwPWlGDqoQ0 11CJaxTaT3OATvttEdG4Ad MYTgeKjzPuZ8m7C6Jf6TCO VaHH55PFO2 qIF7XZ43JB79I0CuBydqmO FibGU+PHRhYmxlIHdpZHRo OPiaISKtDtBqrWegKO9tPe 9yZGVyLWNv vMxsoFRhIpZqw8gsXDImDT yyUL1uhUuxY0MwdET5TRAu t9f2Ky95T42lJ9XngGX+PG SirRJ4sUT7 yM9gWuYsByW7YThrB783Fj PbqJJwBfjzb4dak9lpyOs5 DeV8DQGoqlFxsAvdWDC9v6 IwTa95K88g IHdpZHRoPSIxNSUiIHZhbG jnoi1yzO9gMo0+PGNvbCB3 sKF3cG3dXiCtHhK7FGtvB0 49InRvcCIv Cjeyp9odp2aafWf3KhAcAB HrpdGugSrxNIL1e6KlEq37 B8GfbUify7ReZdi2er51aQ Cyp7B9aFV1 P4JjYFIdnvmutYUudMvaMC 1sSGYuemaaJBVjdR5vORPy E4k5VnCjRqI8RNpaI4Mtut Q8AMNqkPQw RTzoCBE5I69vj4U4PTRnCX ZzLEP5sUV6wM1zpKdkkzdc bGVmdDsgdmVydGljYWwtYW fdU315LPRv bUbeCMSdqZ7nFPHzhUEqpW qlLU8qXRQghmacDdHXXjKH XnvvRPJJQVCRHtTCUS43RU 12jBPso7W9 tCV8K6HoQFNwunociegdkL E8ILIbVOYjuS29kHDwIZva Gs6hr2S2o327HRVoAVEpeL 09Dj1zgDxp BAGusHHBzQ2picpff5gpwq rgZmSjPZHmMQr0XUq0PFLv vCwqHeMsIYY0FgP5MLY1oH JerP8xhHwo reasqF0rKau+MDUvMTEvMT p7WPxtpGX+OCLxIIQ6mCfk PAofULPvqB7yNCWxG5o1Aw SxIgO5POct P1EyTRDpmkorGq87iY0xOo UlDuX2PWeeL4CfqrL9VHTz lJPbWRujYMV8O31pv5F7RD MwMDAwMDA7 bJJ4cE3hlXznkidazFVysM hagaFchRynWUliPTvbO506 LHXpnMjjLwJ5JOasPEWtRG 61DQ88zLSd l9M2zMR0I4JcXHSgjibfps llpDT2JNZfSSTzaT74gBKj VAlrWn5cp9L4v262YHYmAS IiqZ43Zn5l yCgnNQXeuYMJuF2uyneoi4 wwcnlvQkHwZPEkHXy0XZa6 BHSjpAyuKvPqDSD8YfL0YN O2sESnvY4o oPzjytwucV4cIfp+TWFsZT wvdGQ+PBQfDNH4gFyyYAcc BMHzuE2sSPNdK5e7NyZsGi D3NRyzG6Qu WAVorryfBk07oA8zNiBpGq T3JYrnE0QtxgX4YHAetAFo MQugHPW0K14fv9R8RDTgNY ZsPSR9nIG3 nB7hgDitvbhkvOMdcGspll AsvCiqBTtpXIuoL622AUZg gDuyVaDcD7FhjnskOtjbuP Q+QY80ny37 H5WhTpmoPaq0MRZdRVB2eB U0jN0sNBFbVXxva6X5vMW1 G3CjsrSlnv5ot0ddOVJaXJ xxL16lzVPv y6T9RIBnxHV6XVDizOrxOo DprV34Paq+CJDftUrri2Hh Alglq4omc9tokLm9ZiBqNW IgdmFsaWdu TKD4a4IlYy93I28gFOpoQK AfXZXuKMBcEWVkfYelat2h eJ8gHz8+SPEonGY1gIY4lN 0fDfRbUsG9 MWvdG460SlQmoDFpKziaj1 qzz0twfMp7DtXtCWGmyeVl aBltTSJ4q4CdHd52I4UxiX syj4JhDww6 za34wNLsm2S1kGK8E2BsTZ EuoieczNCqfXidJM9gXPUp zfatHTLtiB2fGAOuO1l5Lq IrSeQ9CWkw S8WnupY2KSXmdGSdDYKwcT IImK2cpeepe4dggyqxRaDo ODJpRXx6EEx1SNNehUqbKu HkJUO3VoI2 RBE2lLJyeB4iiLajsyvujH 9wOyc+NRs9y0xaqGPgSW1t wAH9HI17FV92kGXmr8K8yM U2L8VzROFl kqcdpjylvUP4NEBwWQWzxF 41Oq5pjXeqQn1oBLNfTWM7 UVNjbIArX4TneB9iMrYsJQ ZiNYZwM7Nc zBTcTTbjI952IQuvDzS6NX UshpWnD5IjVWQqqAgsSmL3 u5R3Ie8YDQ90JC90CQ11rW Vwp8V4lPX8 K6BpXPFluftxpkrqtXO5DW CbQFNblY48Kb5lyZpmGt0a RQZzVWV8IFTypAWiG1QrkD 9yOiAjMDAw NDQxF0LitHUpXSphT699FJ stIyF0GVCkiwAvX3HwLTMr nDyrVoT5f1J5Cd2LTp35GA 86OQ99iYRp h6M9eEL9E3UyRKNknvzajd hvtBY3BDAtZLQsoB18Xh7d wZadLt3zQWCpMEW5NRPxgY IkF6QfyW9f SkWhAVUhQZAoG2SosBIrHD hfS086ECtoBpD2OHXbmzTt X5AiPLYrpIpsMdL6g7T1Lb 2RQZxvjmr8 H3QuXelnpPA+RK57FBSoRE 39dYDomKNau4xuiLg3RjOr JQScMAU2hLdlQValz0PgSI McE63pwAHq c2U6 (more content not included)... Normal [facility] Consent for Treatmenton 12-30 Consent for Treatment [id number] 2080 [id number]#1.0 0CD:127 Normal [facility] Heart and Vascular Office/Cl inic Noteon 01-23-2022 [...] in office. He had echocardiogram performed at [facility], which was normal. He was ordered [...] protocol. [1] patient was then referred to [place] and was placed on sotalol followed by [...] with speaking. 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 He is taking and tolerating his medicines well. He has had no exertional chest pain symptoms prior to his COVID infection. 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 His daughter works here at [employer] and was present for his visit. Patient is now her (more content not included)... Normal [facility] Comment on above: Result Comment: Elec tronically Signed By: Camilo STARK, Kushal Lenz\Date and Time Signed: 01/23/22 14:23 EDT Stress EKG Tracingson 2021 Stress EKG Tracings [id number] 05 [id number]#1. 00CD:127 Normal [facility] NM Myocardial Spect Part 2on 01-22-2022 NM [...] Stress Dose (mCi Tc99M Cardiolite): 29.9 Normal [facility] Consent for Treatmenton 12-30 Consent for Treatment [id number] 2079 [id number]#1.0 0CD:127 Normal [facility] CT CHEST WO CONon 01-19-2022 CT CHEST [...] by: LORENA ANTONIO Date: 2022-01-19 17:17 Normal [facility] HEMOGLOBINon 01-19-2022 Hemoglobin (Bld) [Mass/Vol] 13.2 g/dL Critically low 14.0-18.0 [facility] Comment on above: Performed By: #### H GB #### [facility] [address] [place] [address] Dr. Maria T Canela Pre-Certification Formon Pre-Certification Form [id number]#1. 00CD:127 Normal [facility] TSH - Thyroid Stimulating Ho mckenna, Serumon 12-31-2021 TSH Qn 1.65 m[IU]/L See Below [facility] [address] DO Work Phone: Comment on above: Reference Range: 0.4 4 - 3.98 TSH testing is performed using different testing methodology at [facility] than at other [facility]. Direct result comparisons should only be made within the same method. Tobacco Screening.on 022 Adult depression screening assessment No [facility] [address] DO Work Phone: Fall risk assessment a) No falls within the last year [facility] [address] DO Work Phone: Tobacco use status [facility] b) No [facility] [address] DO Work Phone: Outside Recordson 12-30-2021 Outside Records [id number] 20 [id number]#1.0 0CD:127 Normal [facility] Coding Summary.on 12-24-2021 Coding Summary. CD:[id number] Gh 0bWw+PGhlYWQ+VK7NZKQzS 39lbQCahX9CE5wAYB1FKAS FKYVGOC3FHK3kcIM5NRvaF 2VybiAv HdjbjYLrYC27PXk2ZGG4mX ccOEruoU8ynSDvS0n1YxLu GR01eY83QCggWMDaSwC4Dy ZpbjsgbWFy C2zsUxSuyAHaJve+PHRhYm xlIHdpZHRoPScxMDAlJyBz kNpiWP9dXr5hCOFaYEDeuM xhcHNlOiBj j0zfMQHmUKxzTE0shZtrY1 NhkNV4AVSih7a4Xj69aGY+ JAXaMXJ6dUemBFhaa515Vm Egy8fnCNW1 aCEeHWmaUWP1C09tf5R7SS OuEFOjBTZ9hZT0iT2jcXzb zddlR9FuoLWrSeE8NIW6yR HsuZ3luOdj slnfuU3eDwh+V29JFZ4TJB DOEV1ARka7Q7PgWsbboWK+ ZO73MVGwSE43iPVetUJle7 lfxDg4OkNm IYKrJTK5qDfsPPdic1TsOU ZiG46gmMSdy5U6AUCfqTls fGQiArXtmWF5xH7wWHkfxm ofo0sekabr Txlxj2eyfk54vH34K66bGS hjHKFpXRP4MSXfPHXsgFzc vr8tnC0jLj1+AVvio3jfw7 ijyAn5EcVw PQMaceWktZkjIHH5k2DeRm 19W3OybXone0TaChv6fx68 sOHau6A7uGB7VKffEEGobX 5qJHclDqN6 ZYLyStUhiJ87yLSvPXtyBt 2fkApcgBawTF5bOGLwhwgk TZDssZ9uZXVkaZCbdPlpUR 4wNTBpbjtm e046MdEmJLW4GQXxnRLhA8 OebH8vHrKiCAEvDZYjV5Pe lDLuEYqpJ370YWliKyM3IR DojxCaL1Tm PFTluHxcBqJ4o8W5Ju6Yk8 PjqcxjRDL7SXelEOQ4VbK0 LbKuGwI6Z7DzCep7GDYhgQ fbHS4rQ6Vv EUDqanxvrqvwxTW3NAHvRW RkdZ39yBJnKVosFy8ka8L8 h564MGRbWKWewI97Bm6gfW ogMTBwdCBU yW9nqxsjo8jmerofQmGeNM MnXNo3XQq6LZSasRqjSbLv VKU3KmP2UHB0sLWzfX9mpV qdxqjapK3r Oyc+R46cuQ0zFID7NUP4ae deFLCfmgZdEA55EO14E9Gy PjwvdGFibGU+PGRpdiBzdH fuEA5tBlDu i4zhl8LpGKtdC9PaLYTcBI ycNyk4GYYgPRR2tMV6bS0z CGLtXWrnd6J4dLQ7S8Kaad Xqey0nh1oo OJLzTYkwZ58xfOJmi2Z2EL EqyUD5BKPprLztVfUatY84 Oyc+BQFugAftk3NeIfcjw9 raj9gsnUj2 QoArYUTyjyPezLpuRNB3n7 DsAj84L21kVLnpPPEwUEIp WBLzCCUoyTjdap0oiW3zCd 8+PGNvbCB3 jOI5eW8fEESzMjT8RUwuS5 58OtAdiOKxVuerl9mgn9kc pMj2YnFeYNCjpsBdxGzxWH C1x9QsVh97 N54kNCpgBLJhTTLsKCTbDO GelKtjph6tmB2sEg6+PC9j a6jbbx12iV41fED+PHRkIH Z6hAzpQAac TEFipO9bCCbaKlY2QXNxYs KytK28sXWvPBcyTi9qeYgj tQaeSI1jHOAiplxmf215Bv Yfg5kwZZBe cPSnTEraWBL3P01ez7E3KT GsHBEtZUX8mHA8oU8ifPeh bjogbGVmdDsgdmVydGljYW dpQLyzX666 IHRvcDsnPlBhdGllbnQgTm OdLNn0C3OuDjd5DCLugTsg RI5yeEZhKCisIv5wnUyknI ozAK5lMYHe oifhl905QsMlf6gxCKFygG AzSKqxBYU5N83cr1W9PZEa FWGqWQG2dQK5xU7lsXdfjl ogbGVmdDsg trDnpOigEPzuMWriJ222CT RvcDsnPkJpcnRoIERhdGU6 BN17VL26dJFfj9N5oGM3E3 BhZGRpbmct rqaptIM4KHQxKMPfbB23Vo 7urVgpHt0hQUSlPME9PNVd qABhL1YcnH1rXfCwYRCsOC AnF6PbwSBf BGpqB952QXimMcU2BAKyjw RmC9YfZQOdkShfMfF4n4J9 Zz8BO8T9FU87GD51kBLhw7 F5eYJ8P2Ep FCTzdwvqzwlxnTA6IQEoHU BlaX84Yb2cbYocPt9gVWMr NWV3AEGvlMCxR6XgmC4tPm AjMDAwMDAw M9OyfLGrONqnX291ABfwYx K7YDIsymKyU1JrDHEgqDvr JfK0v7J9Ui2UWGg7ES11MF 75eTZrs4W8 vVO3U4MpRKIxzrfdacssyW N4ZWZgZZCxiF60Es2taElf Xv7xYQTfFIE0HPVzlILgC9 ApkH8iFrPx BMGcHRGzJ5MihQTfSBzlH0 82NAdqCjE3SEBtgaZdT9Ls SSKmiDcmJrD2r2C9Fd3TOH SsQC77BMV7 uGS6HS95OG57Y0IkGvtygR FibGU+PHRhYmxlIHdpZHRo HUscIIWgAeDomUlkXJ7fOh 9yZGVyLWNv fMzqnEPwWwPcw9gpYUUuWZ fkGC9erEwuJ1EnfHR8IMUg n8v7Vs91B58gD3UlfVZ+PG ZilGG6tMQ2 eB2nOnUeYsH6YObrW370Dt XuoEFjXyjqk6nqh1afoKi5 CaK5ATBgboKzjWpxNKH8g5 SjCu27G50r IHdpZHRoPSIxNSUiIHZhbG ipzi0ezU3dHo0+PGNvbCB3 wJU5vS5iLiEqYkU2EMbsH6 49InRvcCIv Oheba5wwv4qdgTq6BpIlGZ YrxrYsiOxcHQO0g0ElFe68 V5NwqTspx0RnWjy0te51dO Wwj4X2gVN5 T5XzIMEciedbsXHdyOeqCP 1sUSRcegwfTDGpgH0wSBWg H3j0WeThTfR8WGryR3Qier V9JXRhbTMz VZltHII2P48ck0V6JPJlFA KiMMV6eYX4eI0ucBfticyi bGVmdDsgdmVydGljYWwtYW ygC877YODn gOecTJHqpH2nDYEqbCTqwS khRL0xNNAwkwxuNtFZDeGI QxurBGTCUYNWFqXNPO53IJ 76dOHgd2D9 wSC3W3RxZKNerryhxulcsX J7EMAvDFAxuR32xHPiNAkn Xk6up1P9u533YYZwUKEstJ 84Qz4rbFnu PLPauQXYvC8sictyu1bajc rqZcArWWIdIYq9YMj6WTIn wZuoTjXsTRL7GxY1CQW7eT DfuY2ebXyi pekvyY5bHtb+MDUvMTEvMT l5YLtgfPZ+IQToSQA6pDzz DMctBNZpxS6kSDKzV7l6Ou MkYvT5CWsk P5UzOZPfpbcqJo29gO8hPx UpJaV3ICjpR1IzeyC0OVOg rFWvBMjdHHI1U99pv7K1DL MwMDAwMDA7 bWA8sB2rvQmjqpzdkPVmpR tftxUbuWopYVnzTXtyP556 VFOreHcxDtX8JZogJFDcNR 59JL93uGDg j5Q0jVU7B5FuWMBnrdzjvh cybYS5MGDzTMCqwN68pYZk KPsnFf9gi8S0g938PWFrOF LvxA23Qh2j tHozLNRdyMKEjQ4ohlzcw1 ascfgpXoSjMDZrBFf8GXi5 LNZwzYtvHuHhQTM1PaR9QT W6vUPasZ4o sUqofftqhB6rKkw+TWFsZT wvdGQ+UUTjABY1vOqmNTia XGSctB7gFDVoG0i8FvYuLa Q4XGgjY6Uq JCGpkilsFy45mN7dGxTrLb C0HZnjN1HqchX0UCNdaEUw VFrmJSP7B97bf2T7RGMtOY JzTUF8vJJ0 aI0gmUlysblcaNPwxUoswx ClhRleDSfwJIfmK687YEVc kQssZz03bRYndTrcclJ6V3 RkPjwvdHI+ CF37OACyMA57xNEljGLbu0 mztCu1LxYfVJYrWNB0xOll CNozi5PmWFXfX87ncODwa9 P9HKWkvJcy wEKlNyBicKM7mM3qQQcquf hlj1tjkuerSlmna1uuvx31 iX46H26mDXjvIVEbTYHjDD UiIHZhbGln tn2wlC4vFo3+PNDfgSV3dM G3bH4vKpIbMxX0DRgvO724 AeLqfBPyCsibs0mnz7wnmU g1SwTwEUCd bxNcvVoiPDC2b9MtQo18R9 9sIHdpZHRoPSIyMCUiIHZh vTuaxl9nmA8hZh7+PC9jb2 efnv41xW65 dHI+ESWzHWH2zKtvERfzSS AboU4yUZfjUoS8DRWvWmJq sZ31rTVbNZquMv2ouFszqP diJQ2bVRAu mrpcv845JzRjz6yoNOCgbT DnKYpjJLV9A57jx8T4VGTx SMGuNNL3mED7zU8vgKaxun ogbGVmdDsg fqStxSpzBIhdLUcdI429EG KuhZsfWhUqiDDyE7lbbtJF XE4tHpptmET+SMOuDPU6cW xlPSdwYWRk qJ4uYKXoQ5m0AzDjSwV1EZ dkH8QewkK8RLCwtPItNOWa jFIQeU7firmto4vuhlbrXh AwMDAwMDt0 WPz8BZJzdCcfYvWfPBB2Eu W6HEH1sUDquA3wkFxokqte pC6sGll+RklOOjwvdGQ+PH GeEMY2tHfz BGbtYRDipG4zMNVvL6g5Us MkXhJ3VValP5ElzmQ8ZMWf hQPcFHKsvRJWyX3dmlgre6 xvcjogIzAw SQQuBFn2EJq6ROGgdQtaSg YxBZF4CpG6DFN8eUPhrS3h yUjfvogugH6rJph+TVJOOj wvdGQ+PHRk BCG5yFjpJSkjAMDaoK3eOW XgZ7u9ShIgVeL0VZntV2Zk lgX0DJTpoNXlXNAkbWTOkS 7vketwm5kc qlsxRsCsQIDtRZf2UXy3NI ObbEunFdEtAWV7QrY6NVN5 xNLmzW7syClpzdzhlZ4xXn c+XCC0KIA9 OQ13DR03Z1MqHrjvsQOpjO U+PHRhYmxlIHdpZHRoPScx ELDkAkCgoHvaSP4eRk4aAX VyLWNvbGxh cHNl (more content not included)... Normal [facility] Consent for Treatmenton Consent for Treatment [id number] 0CD:127 Normal [facility] Heart and Vascular Office/Cl inic Noteon 12-05-2021 [...] in office. He had echocardiogram performed at [facility], which was normal. He was ordered [...] with speaking. 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 He is taking and tolerating his medicines well. He has had no exertional chest pain symptoms prior to his COVID infection. 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 His daughter works here at [employer] and was present for his visit. In [...] perfusion R (more content not included)... Normal [facility] Comment on above: Result Comment: Elec tronically Signed By: Camilo STARK, Kushal Moran.br\Date and Time Signed: 12/05/21 15:17 EDT Progress Note-Physicianon Progress Note-Physician [id number]. 00CD:127 Normal [facility] Tobacco Screening.on 021 Fall risk assessment b) One or more fall s in the last year [facility] 320 DO Work Phone: Tobacco use status CP b) No [facility] 320 DO Work Phone: Tobacco Screening. Yes [facility] DO Work Phone: COVID-19 [facility] 10-05-19 21 SARS-CoV-2 (COVID-19) RNA PATTIE+probe Ql (Unsp spec) Not detected Normal Not Detected [facility] Comment on above: Order Comment: Healt hcare Worker?: N Result Comment: This nucleic acid amplification test was developed and its performance characteristics determined by [employer]. Nucleic acid amplification tests include RT- PCR [...] detected) result in this assay. PERFORMED BY: [address] [address] PATHOLOGIST [employer] SAMEER HARDIN M.D. Performed By: #### C ORONAVIRUS #### [facility] , Vital Signs Date Time Vital Sign Value Performing Clinician Facility 07-19-2023 15:30-0500 Body height 177.8 cm Margret Stevens MD Work Phone: [facility] 07-19-2023 15:30-0500 Body mass index (BMI) [Ratio] 52.37 kg/m2 Margret Stevens MD Work Phone: [facility] 07-19-2023 15:30-0500 Body weight 165.56 kg Margret Stevens MD Work Phone: [facility] 07-19-2023 15:30-0500 Diastolic blood pressure 88 mm[Hg] Margret Stevens MD Work Phone: [facility] 07-19-2023 15:30-0500 Heart rate 65 /min Margret Stevens MD Work Phone: [facility] 07-19-2023 15:30-0500 Systolic blood pressure 138 mm[Hg] Margret Stevens MD Work Phone: [facility] 05-07-2023 11:45-0500 Body height 175.26 cm Kelly Jane Other [employer] Other 05-07-2023 11:45-0500 Body mass index (BMI) [Ratio] 53.3 kg/m2 Kelly Lucinda Other [employer] Other 05-07-2023 11:45-0500 Body temperature 97.2 [degF] Kelly Lucinda Other [employer] Other 05-07-2023 11:45-0500 Body weight 163.75 kg Kelly Lucinda Other [employer] Other 05-07-2023 11:45-0500 Diastolic blood pressure 93 mm[Hg] Kelly Lucinda Other [employer] Other 05-07-2023 11:45-0500 Respiratory rate 18 /min Kelly Luicnda Other [employer] Other 05-07-2023 11:45-0500 SaO2% (BldA) [Mass fraction] 95 % Kelly Lucinda Other [employer] Other 05-07-2023 11:45-0500 Systolic blood pressure 159 mm[Hg] Kelly Lucinda Other [employer] Other 03-08-2023 09:30-0400 Body height 175.26 cm Beena Benítez Other [employer] Other 03-08-2023 09:30-0400 Body mass index (BMI) [Ratio] 55.67 kg/m2 Beena Benítez Other [employer] Other 03-08-2023 09:30-0400 Body weight 171.01 kg Beena Benítez Other [employer] Other 03-08-2023 09:30-0400 Diastolic blood pressure 85 mm[Hg] Beena Benítez Other [facility] [employer] Other 03-08-2023 09:30-0400 Systolic blood pressure 145 mm[Hg] Beena Benítez Other [facility] [employer] Other 02-15-2023 14:33-0400 Body height 177.8 cm Beena Benítez Work Phone: [facility] [employer] 250 DO Work Phone: 02-15-2023 14:33-0400 Body mass index (BMI) [Ratio] 53.38 kg/m2 Beena Benítez Work Phone: [facility] [employer] 250 DO Work Phone: 02-15-2023 14:33-0400 Body surface area Derived from formula 2.72 m2 Beena Benítez Work Phone: [facility] [employer] 250 DO Work Phone: 02-15-2023 14:33-0400 Body weight 168.74 kg Beena Benítez Work Phone: [facility] 250 DO Work Phone: 02-15-2023 14:33-0400 Diastolic blood pressure 82 mm[Hg] Beena Benítez Work Phone: [facility] DO Work Phone: 02-15-2023 14:33-0400 Heart rate 64 /min Beena Benítez Work Phone: [facility] DO Work Phone: 02-15-2023 14:33-0400 Systolic blood pressure 138 mm[Hg] Beena Benítez Work Phone: [facility] 250 DO Work Phone: 11-23-2022 17:11-0400 Diastolic blood pressure 84 mm[Hg] Beena Benítez Work Phone: [facility] 250 DO Work Phone: 11-23-2022 17:11-0400 Systolic blood pressure 138 mm[Hg] Beena Benítez Work Phone: [facility] 250 DO Work Phone: 11-23-2022 15:32-0400 Body height 177.8 cm Beena Benítez Work Phone: [facility] 250 DO Work Phone: 11-23-2022 15:32-0400 Body mass index (BMI) [Ratio] 53.95 kg/m2 Beena Benítez Work Phone: [facility] 250 DO Work Phone: 11-23-2022 15:32-0400 Body surface area Derived from formula 2.73 m2 Beena Benítez Work Phone: [facility] 250 DO Work Phone: 11-23-2022 15:32-0400 Body weight 170.55 kg Beena Benítez Work Phone: [facility] 250 DO Work Phone: 11-23-2022 15:32-0400 Diastolic blood pressure 90 mm[Hg] Beena Benítez Work Phone: [facility] 250 DO Work Phone: 11-23-2022 15:32-0400 Heart rate 82 /min Beena Benítez Work Phone: [facility] 250 DO Work Phone: 11-23-2022 15:32-0400 Systolic blood pressure 148 mm[Hg] Beena Benítez Work Phone: [facility] 250 DO Work Phone: 10-05-2022 14:45-0400 Body height 177.8 cm Beena Benítez Work Phone: [facility] 250 DO Work Phone: 10-05-2022 14:45-0400 Body mass index (BMI) [Ratio] 53.81 kg/m2 Beena Benítez Work Phone: [facility] 250 DO Work Phone: 10-05-2022 14:45-0400 Body surface area Derived from formula 2.73 m2 Beena Benítez Work Phone: [facility] 250 DO Work Phone: 10-05-2022 14:45-0400 Body weight 170.1 kg Beena Benítez Work Phone: [facility] 250 DO Work Phone: 10-05-2022 14:45-0400 Diastolic blood pressure 84 mm[Hg] Beena Benítez Work Phone: [facility] 250 DO Work Phone: 10-05-2022 14:45-0400 Heart rate 52 /min Beena Benítez Work Phone: [facility] 250 DO Work Phone: 10-05-2022 14:45-0400 Systolic blood pressure 126 mm[Hg] Beena Benítez Work Phone: [facility] DO Work Phone: 08-17-2022 15:25-0400 Body height 177.8 cm Beena Benítez Work Phone: [facility] DO Work Phone: 08-17-2022 15:25-0400 Body mass index (BMI) [Ratio] 53.38 kg/m2 Beena Benítez Work Phone: [facility] DO Work Phone: 08-17-2022 15:25-0400 Body surface area Derived from formula 2.72 m2 Beena Benítez Work Phone: [facility] 250 DO Work Phone: 08-17-2022 15:25-0400 Body weight 168.74 kg Beena Benítez Work Phone: [facility] DO Work Phone: 08-17-2022 15:25-0400 Diastolic blood pressure 78 mm[Hg] Beena Benítez Work Phone: [facility] DO Work Phone: 08-17-2022 15:25-0400 Heart rate 66 /min Beena Benítez Work Phone: [facility] DO Work Phone: 08-17-2022 15:25-0400 Systolic blood pressure 124 mm[Hg] Beena Benítez Work Phone: [facility] DO Work Phone: 07-06-2022 15:45-0500 Body height 177.8 cm Beena Benítez Work Phone: [facility] DO Work Phone: 07-06-2022 15:45-0500 Body mass index (BMI) [Ratio] 53.38 kg/m2 Beena Benítez Work Phone: [facility] 250 DO Work Phone: 07-06-2022 15:45-0500 Body surface area Derived from formula 2.72 m2 Beena Benítez Work Phone: [facility] DO Work Phone: 07-06-2022 15:45-0500 Body weight 168.74 kg Beena Benítez Work Phone: [facility] [employer] 250 DO Work Phone: 07-06-2022 15:45-0500 Diastolic blood pressure 80 mm[Hg] Beena Benítez Work Phone: [facility] [employer] 250 DO Work Phone: 07-06-2022 15:45-0500 Heart rate 64 /min Beena Benítez Work Phone: [facility] [employer] 250 DO Work Phone: 07-06-2022 15:45-0500 Systolic blood pressure 118 mm[Hg] Beena Benítez Work Phone: [facility] [employer] 250 DO Work Phone: 06-15-2022 11:15-0500 Body height 175.26 cm Beena Benítez Other [employer] Other 06-15-2022 11:15-0500 Body mass index (BMI) [Ratio] 55.81 kg/m2 Beena Benítez Other [employer] Other 06-15-2022 11:15-0500 Body weight 171.46 kg Beena Benítez Other [employer] Other 06-15-2022 11:15-0500 Diastolic blood pressure 88 mm[Hg] Beena Benítez Other [employer] Other 06-15-2022 11:15-0500 SaO2% (BldA) [Mass fraction] 97 % Beena Benítez Other [employer] Other 06-15-2022 11:15-0500 Systolic blood pressure 130 mm[Hg] Beena Benítez Other [employer] Other 03-09-2022 11:20-0400 Blood Pressure Location Kushal Page [facility] 03-09-2022 11:20-0400 Diastolic blood pressure 76 mm[Hg] Kushal Page [facility] 03-09-2022 11:20-0400 Heart rate 60 /min Kushal Page [facility] 03-09-2022 11:20-0400 Respiratory rate 18 /min Kushal Page [facility] 03-09-2022 11:20-0400 SaO2% (BldA) [Mass fraction] 98 % Kushal Page [facility] 03-09-2022 11:20-0400 Systolic blood pressure 140 mm[Hg] Kushal Page [facility] 02-05-2022 06:41-0400 Blood Pressure Location Kushal Page [facility] 02-05-2022 06:41-0400 Diastolic blood pressure 82 mm[Hg] Kushal Page [facility] 02-05-2022 06:41-0400 Heart rate 56 /min Kushal Page [facility] 02-05-2022 06:41-0400 Respiratory rate 20 /min Kushal Page [facility] 02-05-2022 06:41-0400 SaO2% (BldA) [Mass fraction] 100 % Kushal Page [facility] 02-05-2022 06:41-0400 Systolic blood pressure 150 mm[Hg] Kushal Page [facility] 01-23-2022 14:04-0400 Blood Pressure Location Kushal Page [facility] 01-23-2022 14:04-0400 Diastolic blood pressure 67 mm[Hg] Kushal Page [facility] 01-23-2022 14:04-0400 Heart rate 70 /min Kushal Page [facility] 01-23-2022 14:04-0400 Respiratory rate 18 /min Kushal Page [facility] 01-23-2022 14:04-0400 SaO2% (BldA) [Mass fraction] 97 % Kushal Page [facility] 01-23-2022 14:04-0400 Systolic blood pressure 140 mm[Hg] Kushal Page [facility] 12-31-2021 11:54-0400 Body height 177.8 cm Beena Benítez Work Phone: [facility] 320 DO Work Phone: 12-31-2021 11:54-0400 Body mass index (BMI) [Ratio] 52.95 kg/m2 Beena Benítez Work Phone: [facility] 320 DO Work Phone: 12-31-2021 11:54-0400 Body surface area Derived from formula 2.71 m2 Beena Benítez Work Phone: [facility] 320 DO Work Phone: 12-31-2021 11:54-0400 Body weight 167.38 kg Beena Benítez Work Phone: [facility] 320 DO Work Phone: 12-31-2021 11:54-0400 Diastolic blood pressure 84 mm[Hg] Beena Benítez Work Phone: [facility] 320 DO Work Phone: 12-31-2021 11:54-0400 Heart rate 67 /min Beena Benítez Work Phone: [facility] 320 DO Work Phone: 12-31-2021 11:54-0400 Systolic blood pressure 138 mm[Hg] Beena Benítez Work Phone: [facility] 320 DO Work Phone: 12-05-2021 15:01-0400 Blood Pressure Location Kushal Page [facility] 12-05-2021 15:01-0400 Diastolic blood pressure 69 mm[Hg] Kushal Page [facility] 12-05-2021 15:01-0400 Heart rate 70 /min Kushal Page [facility] 12-05-2021 15:01-0400 Respiratory rate 18 /min Kushal Page [facility] 12-05-2021 15:01-0400 SaO2% (BldA) [Mass fraction] 98 % uKshal Page [facility] 12-05-2021 15:01-0400 Systolic blood pressure 118 mm[Hg] Kushal Page [facility] 04-23-2021 16:19-0500 Body height 177.8 cm Beena Benítez Work Phone: [facility] 320 DO Work Phone: 04-23-2021 16:19-0500 Body mass index (BMI) [Ratio] 51.94 kg/m2 Beena Benítez Work Phone: [facility] 320 DO Work Phone: 04-23-2021 16:19-0500 Body surface area Derived from formula 2.69 m2 Beena Benítez Work Phone: [facility] 320 DO Work Phone: 04-23-2021 16:19-0500 Body weight 164.2 kg Beena Benítez Work Phone: [facility] 320 DO Work Phone: 04-23-2021 16:19-0500 Diastolic blood pressure 62 mm[Hg] Beena Benítez Work Phone: [facility] 320 DO Work Phone: 04-23-2021 16:19-0500 Heart rate 65 /min Beena Benítez Work Phone: [facility] 320 DO Work Phone: 04-23-2021 16:19-0500 Systolic blood pressure 108 mm[Hg] Beena Benítez Work Phone: [facility] 320 DO Work Phone: 10-09-2020 14:30-0400 Diastolic blood pressure 66 mm[Hg] Beena Benítez Other Phone: [facility] 10-09-2020 14:30-0400 Heart rate 50 /min Beena Benítez Other Phone: [facility] 10-09-2020 14:30-0400 Systolic blood pressure 133 mm[Hg] Beena Benítez Other Phone: [facility] 10-09-2020 13:00-0400 Body temperature 96.8 [degF] Beena Benítez Other Phone: [facility] 10-09-2020 13:00-0400 Respiratory rate 19 /min Beena Benítez Other Phone: [facility] 10-09-2020 13:00-0400 SaO2% (BldA) [Mass fraction] 98 % Beena Benítez Other Phone: [facility] 10-09-2020 02:15-0400 Body weight 159.4 kg Beena Benítez Other Phone: [facility] Encounters Encounter Date Encounter Type Care Provider Facility Start: 07-19-2023 End: 07-19-2023 ambulatory [facility] Ambulatory Start: 07-19-2023 End: 07-19-2023 Office outpatient visit 25 minutes Margret Stevens MD Work Phone: [facility] Comment on above: Paroxysmal atrial fi brillation (CMS/HCC); Coronary artery disease involving muscogee coronary artery of muscogee heart without angina pectoris; Ischemic cardiomyopathy; Chronic systolic congestive heart failure, NYHA class 2 (CMS/HCC); Hypercoagulable state due to paroxysmal atrial fibrillation (CMS/HCC); Medication course changed; Mixed hyperlipidemia; High risk medication use Start: 05-07-2023 End: 05-07-2023 ambulatory Kelly Lucinda Other [employer] Other Start: 05-07-2023 Office outpatient vi sit 15 minutes Kelly Jane [facility] Start: 05-07-2023 Telephone encounter Beena Benítez [facility] Start: 03-08-2023 End: 03-08-2023 ambulatory Beena Benítez Other [employer] Other Start: 03-08-2023 Office outpatient vi sit 25 minutes Beena Benítez [facility] Start: 02-15-[address] Beena Benítez Facility: Start: 02-03-2023 Rx Renewal Beena Benítez Work Phone: [facility] 250 DO Work Phone: Start: 01-28-2023 End: 01-28-2023 ambulatory Beena Benítez Other [employer] Other Start: 01-28-2023 Telephone encounter Beena Benítez [facility] Start: 12-03-[address] Beena Benítez Facility: Start: 11-30-[address] Beena Benítez Facility: Start: 11-30-2022 Patient encounter procedure Beena Benítez Work Phone: [facility] 250 DO Work Phone: Start: 11-23-2022 Office outpatient ne w 45 minutes Beena Benítez Work Phone: [facility] 250 DO Work Phone: Start: 11-23-[address] Margret Newman ty: Start: 10-27-2022 End: 10-28-[address] DOCTOR HOLDEN Facility:[facility] Start: 10-12-2022 Telephone encounter Beena echavarria Work Phone: [facility] 250 DO Work Phone: Start: 10-05-2022 Office outpatient vi sit 25 minutes Beena Benítez Work Phone: [facility] 250 DO Work Phone: Start: 10-05-[address] Margret Newman ty: Start: 09-22-2022 Patient encounter procedure Beena Benítez Work Phone: [facility] 250 DO Work Phone: Start: 09-17-2022 Chart Update Beena Benítez Work Phone: [facility] 250 DO Work Phone: Start: 09-17-2022 End: 09-17-2022 ambulatory Beena Benítez Other [facility] [employer] Other Start: 09-17-2022 Telephone encounter Beena Benítez [facility] Start: 09-10-[address] Beena Benítez Facility:[id number] Start: 09-08-2022 End: 09-09-2022 Pre-admission assessment Kushal Page [facility] Start: 08-17-2022 Office outpatient vi sit 25 minutes Beena Benítez Work Phone: [facility] 250 DO Work Phone: Start: 08-17-[address] Margret Newman ty: Start: 07-20-2022 End: 07-21-[address] DOCTOR HOLDEN Facility: Start: 07-06-2022 Office outpatient vi sit 25 minutes Beena Benítez Work Phone: [facility] 250 DO Work Phone: Start: 07-06-[address] Margret Newman ty: Start: 06-23-2022 End: 06-23-2022 ambulatory Beena Benítez Other [employer] Other Start: 06-23-2022 Telephone encounter Beena Benítez [facility] Start: 06-15-2022 Office outpatient vi sit 25 minutes Beena Benítez [facility] Start: 06-15-2022 End: 06-16-[address] BEENA BENÍTEZ [facility] [employer] Other Start: 06-02-2022 End: 06-02-2022 ambulatory Beena Benítez Other [employer] Other Start: 06-02-2022 Telephone encounter Beena Benítez [facility] Start: 03-09-2022 End: 03-10-2022 ambulatory XXXX NONE Facility:[facility] Start: 03-09-2022 End: 03-09-2022 Patient encounter procedure Kushal Page [facility] Start: 02-05-2022 End: 02-05-2022 ambulatory MD Kushal Page Facility:[facility] Start: 02-05-2022 End: 02-05-2022 Admission to same day surgery center Kushal Page [facility] Start: 01-28-2022 End: 01-29-2022 ambulatory MD Kushal Page Facility:[facility] Start: 01-28-2022 End: 01-28-2022 Patient encounter procedure Kushal Page [facility] Start: 01-23-2022 End: 01-24-2022 ambulatory MD Kushal Page Facility:[facility] Start: 01-23-2022 End: 01-23-2022 Patient encounter procedure Kushal Page [facility] Start: 01-21-2022 End: 04-23-2022 ambulatory MD Kushal Page Facility:[facility] Start: 01-21-2022 End: 04-22-2022 Recurring Kushal Page [facility] Start: 01-19-2022 Rx Renewal Beena Benítez Work Phone: [facility] 250 DO Work Phone: Start: 01-19-2022 End: 01-20-[address] ALFARO LISTED REQUEST Facility: Start: 01-01-2022 Chart Update Beena Benítez Work Phone: [facility] 320 DO Work Phone: Start: 12-31-2021 Patient encounter procedure Beena Benítez Work Phone: [facility] 320 DO Work Phone: Start: 12-31-2021 Current tobacco non- user cad cap copd pv dm Beena Benítez Work Phone: [facility] 320 DO Work Phone: Start: 12-05-2021 End: 12-06-2021 ambulatory MD Kushal Page Facility:[facility] Start: 12-05-2021 End: 12-05-2021 Patient encounter procedure Kushal Page [facility] Start: 02-07-2022 Rx Renewal Beena Benítez Work Phone: [facility] 250 DO Work Phone: Start: 04-23-2021 Office outpatient vi sit 25 minutes Beena Benítez Work Phone: [facility] 320 DO Work Phone: Start: 10-07-2020 End: 10-09-2020 Evaluation and management of inpatient Adam Romano 8 Cardio ICU 816 01 Patient encounter status Beena Benítez Work Phone: [facility] 320 DO Work Phone: Procedures Date Procedure Procedure Detail Performing Clinician Start: 07-19-2023 Basic metabolic 2000 panel - Serum or Plasma MARGRET STEVENS Start: 07-19-2023 CBC panel - Blood by Automated count MARGRET STEVENS Start: 07-19-2023 Comprehensive metabo lic 2000 panel - Serum or Plasma MARGRET STEVENS Start: 07-19-2023 Lipid panel [facility] Start: 07-19-2023 ECG 12-LEAD MARGRET SCHREIBER AN Start: 07-19-2023 Ecg routine ecg [...] - Tdap) DTaP/Tdap/Td Vaccines (2 - Tdap) [facility] Start: 07-17-2024 End: 07-17-2024 Patient encounter procedure 07/17/2024 3:30 PM EST Office Visit [address] [place] [address] Margret Stevens MD [address] [place] [address] [address] [place], [place] [id number] [facility] Start: 06-19-2024 End: 06-19-2024 Patient encounter procedure 06/19/2024 10:45 AM EST Appointment [place] [id number] [place] [id number] [facility] Start: 06-18-2024 End: 07-19-2024 CBC panel - Blood by Automated count CBC Lab Routine Paroxysmal atrial fibrillation (CMS/HCC) Hypercoagulable state due to paroxysmal atrial fibrillation (CMS/HCC) Expected: 06/18/2024 (Approximate), Expires: 07/19/2024 [facility] Work Phone: Comment on above: Expected: 06/18/2024 (Approximate), Expi res: 07/19/2024 Start: 06-18-2024 End: 07-19-2024 Comprehensive metabolic 2000 panel - Serum or Plasma Comprehensive Metabolic Panel Lab Routine Paroxysmal atrial fibrillation (CMS/HCC) Coronary artery disease involving muscogee coronary artery of muscogee heart without angina pectoris Ischemic cardiomyopathy Chronic systolic congestive heart failure, NYHA class 2 (CMS/HCC) Expected: 06/18/2024 (Approximate), Expires: 07/19/2024 [facility] Work Phone: Comment on above: Expected: 06/18/2024 (Approximate), Expi res: 07/19/2024 Start: 06-18-2024 End: 07-19-2024 Lipid 1996 panel - Serum or Plasma Lipid Panel Lab Routine Coronary artery disease involving muscogee coronary artery of muscogee heart without angina pectoris Mixed hyperlipidemia Expected: 06/18/2024 (Approximate), Expires: 07/19/2024 [facility] Work Phone: Comment on above: Expected: 06/18/2024 (Approximate), Expi res: 07/19/2024 Start: 08-02-2023 End: 07-19-2024 Basic metabolic 2000 panel - Serum or Plasma Basic Metabolic Panel Lab Routine Ischemic cardiomyopathy Chronic systolic congestive heart failure, NYHA class 2 (CMS/HCC) Expected: 08/02/2023 (Approximate), Expires: 07/19/2024 [facility] Service Area Work Phone: Comment on above: Expected: 08/02/2023 (Approximate), Expi res: 07/19/2024 Start: 07-19-2023 End: 07-19-2025 [facility] Transthoracic Transthoracic Echo Complete Echocardiography Routine Ischemic cardiomyopathy Chronic systolic congestive heart failure, NYHA class 2 (CMS/HCC) Expected: 07/19/2023 (Approximate), Expires: 07/19/2025 [facility] Work Phone: Comment on above: Expected: 07/19/2023 (Approximate), Expi res: 07/19/2025 Start: 02-15-2023 FUV, Provider: Margret Stevens, Status: Pen, Time: 12:30 PM FUV, Provider: Margret Stevens, Status: Pen, Time: 12:30 PM [facility] 250 DO Work Phone: Start: 01-29-2023 COVID-19 Vaccine () COVID-19 Vaccine () [facility] Start: 01-29-2023 Influenza vaccination Influenza Vaccine (#1) [facility] Start: 12-02-2022 HOLTER 48, Provider: VIN IZAGUIRRE MANAGER MEDICAID 1,[id number], Status: Pen, Time: 9:00 AM HOLTER 48, Provider: VIN IZAGUIRRE MANAGER MEDICAID 1,[id number], Status: Pen, Time: 9:00 AM -[facility] 250 DO Work Phone: Start: 11-23-2022 FUV, Provider: Margret Stevens, Status: Pen, Time: 3:00 PM FUV, Provider: Margret Stevens, Status: Pen, Time: 3:00 PM -[facility] 250 DO Work Phone: Start: 10-05-2022 FUV, Provider: Margret Stevens, Status: Pen, Time: 2:30 PM FUV, Provider: Margret Stevens, Status: Pen, Time: 2:30 PM -[facility] 250 DO Work Phone: Start: 09-10-2022 STRESS HERSON, Provider: CARLA HHVI NUCLEAR 01,[id number], Status: Pen, Time: 9:00 AM STRESS HERSON, Provider: CARLA HHVI NUCLEAR 01,[id number], Status: Pen, Time: 9:00 AM -[facility] 250 DO Work Phone: Start: 08-17-2022 FUV, Provider: Margret Stevens, Status: Pen, Time: 3:15 PM FUV, Provider: Margret Stevens, Status: Pen, Time: 3:15 PM -[facility] 250 DO Work Phone: Start: 10-29-2021 FUV, Provider: Adam Leo, Status: Pen, Time: 3:45 PM FUV, Provider: Adam Leo, Status: Pen, Time: 3:45 PM -[facility] 320 DO Work Phone: Start: 10-09-2021 Creatinine measurement Creatinine Level [facility] Start: 10-09-2021 Diabetes mellitus screening Diabetes Screening [facility] Start: 10-09-2021 Potassium measurement Potassium Level [facility] Start: 10-09-2020 No post-op complications No post-op complications Date: 09-Oct-2020 [facility] Start: 10-09-2020 Prolonged QT interval Prolonged QT interval Date: 09-Oct-2020 [facility] Start: 2020 Arrhythmia Arrhythmia Date: 08-Oct-2020 [facility] Start: 10-07-2020 End: 2021 [facility] Comment on above: IF patient HAS [...] of 2) Zoster Vaccines (1 of 2) [facility] Start: 10-09-1975 Hepatitis C screening Hepatitis C Screening [facility] Start: 10-09-1963 Pneumococcal Vaccine: 65+ Years (1 - PCV) Pneumococcal Vaccine: 65+ Years (1 - PCV) [facility] Start: 1958 MMR Vaccines (1 of 1 - Standard series) MMR Vaccines (1 of 1 - Standard series) [facility] Start: 1957 Annual wellness visit Medicare Initial Physical (IPPE) [facility] Start: 1957 Echocardiography Echocardiogram [facility] Start: 1957 Lipid panel Lipid Panel [facility] Start: 1957 Screening for malignant neoplasm of colon [facility] Immunizations Immunization Date Immunization Notes Care Provider Fa cility 03-30-2021 diphtheria, tetanus toxoids and pertussis vaccine Beena Benítez Work Phone: [facility] 320 DO Work Phone: 09-30-2020 Pfizer-BioNTech COVI D-19 Vacc 30 MCG/0.3ML Intramuscular Suspension Beena Benítez Work Phone: [facility] 320 DO Work Phone: 09-10-2020 Pfizer-BioNTech COVI D-19 Vacc 30 MCG/0.3ML Intramuscular Suspension Beena Verena Benítez Work Phone: [facility] 320 DO Work Phone: Payers Date Payer Category Payer Private Health Insurance 2021 Medicare AETNA MEDICARE A ETNA MEDICARE VALUE PLAN [id number] 2021-Present P Isa Cunningham [id number] [place] [address] [id number] 1957 Medicare [id number] 1957 Unknown [id number] 2.16.840.1.380296.3.579.2.1 06 1957 Unknown [id number] 2.16.840.1.770212.3.579.2.7 1957 Unknown [id number] 2.16.840.1.584691.3.579.2.7 1957 Unknown [id number] 2.16.840.1.607498.3.579.2.7 1957 Unknown [id number] 2.16.840.1.234885.3.579.2.7 1957 Unknown [id number] 2.16.840.1.065820.3.579.2.7 1957 Unknown [id number] 2.16.840.1.267453.3.579.2.7 1957 Unknown [id number] 2.16.840.1.343706.3.579.2.5 93 1957 Unknown [id number] 2.16.840.1.290224.3.579.2.5 93 1957 Unknown [id number] 2.16.840.1.836363.3.579.2.5 93 1957 Unknown [id number] 2.16.840.1.083666.3.579.2.5 93 1957 Unknown [id number] 2.16.840.1.970962.3.579.2.3 56 1957 Unknown [id number] 2.16.840.1.298540.3.579.2.3 56 1957 Unknown [id number] 2.16.840.1.645787.3.579.2.3 56 1957 Unknown [id number] 2.16.840.1.565437.3.579.2.3 1957 Unknown [id number] 2.16.840.1.824435.3.579.2.3 1957 Unknown [id number] 2.16.840.1.626983.3.579.2.3 1957 Unknown [id number] 2.16.840.1.585915.3.579.2.3 1957 Unknown [id number] 2.16.840.1.151448.3.579.2.1 244 Unknown Social History Date Type Detail Facility [facility] ([place], [place]) Tobacco smoking consumption unknown [facility] Start: 07-19-2023 Never smoker Never smoker [facility] 320 DO Work Phone: Comment on above: 2-3 cups of tea dudley y, 1 soda; Start: 05-30-2020 End: 07-19-2023 Tobacco smoking status Never smoked tobacco (finding) [facility] Start: 07-19-2023 Sex Assigned At Male F [facility] Start: 07-19-2023 Tobacco use and exposure Smokeless tobacco non-user [facility] Work Phone: Start: 07-19-2023 Alcohol intake Current drinke r of alcohol (finding) [facility] Work Phone: Start: 07-19-2023 Alcohol Comment occasional beer [facility] Work Phone: Start: 1955 Sex Assigned At Not on file U [facility] Work Phone: Start: 07-09-2023 End: 07-19-2023 Exposure to SARS-CoV-2 (event) Not sure [facility] Functional Status Date Assessment Result Facility 03-09-2022 Functional Status N/A [facility] 02-05-2022 Functional Status Yes [facility] 01-23-2022 Functional Status N/A [facility] 12-05-2021 Functional Status N/A [facility] Functional observable [facility] Mental Status Date Assessment Result Facility 10-09-2020 Cognitive functions 75743:[id number] [facility] Clinical Notes 10-07-2020 to 07-19-2023 Margret [...] per 2D echocardiogram dated June 07, 2020, [place] [employer] class II, stage B heart failure. 10. Gouty arthritis. Patient remains on allopurinol, no recent recurrence. 11. Abnormal perfusion imaging showing an LV ejection fraction in the 20s, with subsequent cardiac catheterization showing LV ejection fraction of 45%, this was done at [facility] and that particular Catheterization did [...] This is consistent with chronotropic blunting. 13. [id number]-TILr score is 6 14.48-hour Holter monitor-minimum heart [...] redirect to the Timeline version of the [employer] SmartLink. Wt Readings from Last 3 Encounters: [...] Date Noted Hypercoagulability due to atrial fibrillation ([facility]) 07/19/2023 Medication course changed 07/19/2023 Chronic systolic congestive heart failure, NYHA class 2 ([facility]) 07/19/2023 High risk medication use 07/19/2023 Abnormal electrocardiogram 05/05/2023 Atrial fibrillation ([facility]) 05/05/2023 CAD (coronary artery disease) 05/05/2023 Cardiomyopathy (CMS/HCC) 05/05/2023 COVID-19 05/05/2023 SOB (shortness of breath) 05/05/2023 Assessment: 1. Paroxysmal atrial fibrillation (CMS/HCC) Follow Up In Cardiology ECG 12 Lead CBC Comprehensive Metabolic Panel CBC Comprehensive Metabolic Panel 2. Coronary artery disease involving muscogee coronary artery of muscogee heart without angina pectoris Follow Up In [...] Margret Stevens MD. documented in this encounter [facility] Work Phone: 07-19-2023 Instructions Clarisa Quintanilla LPN [...] Increase physical activity. documented in this encounter [facility] Work Phone: 05-07-2023 Evaluation note Encounter Date [...] the ER for worsening symptoms or concerns [employer] Other 10-09-2023 Evaluation note* Encounter Date Diagnosis [...] as directed. Feb, Coronary artery disease involving muscogee coronary artery of muscogee heart without angina pectoris (ICD-10 - I25.10) Continue care w [facility] Feb, GAYLE (obstructive sleep apnea) (ICD-10 - G47.33) Continue care w Dr. Noble. [employer] Other 05-01-2023 History of Present illness Narrative* [...] per 2D echocardiogram dated June 07, 2020, [place] [employer] class II, stage B heart failure. * 10. Gouty arthritis. Patient remains on allopurinol, no recent recurrence. * 11. Abnormal perfusion imaging showing an LV ejection fraction in the 20s, with subsequent cardiac catheterization showing LV ejection fraction of 45%, this was done at [facility] and that particular Catheterization did [...] is consistent with chronotropic blunting. * 13. [id number]-VZNh score is 6 * Laboratory data from [...] prohibitively expensive-pleaseconsider Ozempic or Rybelsus-defer to primary/endocrinology. -[facility] 250 DO Work Phone: [phone] 330-331405-01-2023 History of Present illness Narrative* Patient was [...] per 2D echocardiogram dated June 07, 2020, [place] [employer] class II, stage B heart failure. * 10. Gouty arthritis. Patient remains on allopurinol, no recent recurrence. * 11. Abnormal perfusion imaging showing an LV ejection fraction in the 20s, with subsequent cardiac catheterization showing LV ejection fraction of 45%, this was done at [facility] and that particular Catheterization did [...] is consistent with chronotropic blunting. * 13. PTA0GM0-[id number] score is 6 * Laboratory data from [...] prohibitively expensive-pleaseconsider Ozempic or Rybelsus-defer to primary/endocrinology. -[facility] French DO Work Phone: [phone]) 637-289305-01-2023 History of Present illness Narrative* Patient was [...] per 2D echocardiogram dated June 07, 2020, [place] [employer] class II, stage B heart failure. * 10. Gouty arthritis. Patient remains on allopurinol, no recent recurrence. * 11. Abnormal perfusion imaging showing an LV ejection fraction in the 20s, with subsequent cardiac catheterization showing LV ejection fraction of 45%, this was done at [facility] and that particular Catheterization did [...] is consistent with chronotropic blunting. * 13. XOS5XH5-KSQe score is 6 * Laboratory data from [...] prohibitively expensive-pleaseconsider Uriel or Juan-defer to primary/endocrinology. -[facility] French DO Work Phone: [phone]) 260-247704-01-2023 History of Present illness Narrative* Patient with [...] per 2D echocardiogram dated June 07, 2020, [place] [employer] class II, stage B heart failure. * 10. Gouty arthritis. Patient remains on allopurinol, no recent recurrence. * 11. Abnormal perfusion imaging showing an LV ejection fraction in the 20s, with subsequent cardiac catheterization showing LV ejection fraction of 45%, this was done at [facility] and that particular Catheterization did [...] for his unrelenting fatigue and foggy brain. -[facility] French DO Work Phone: [phone]) 925-848001-16-2023 Evaluation note* Encounter Date Diagnosis Assessment Notes Treatment Notes Treatment Clinical Notes May, Type 2 diabetes mellitus with hyperglycemia, without long-term current use of insulin (ICD-10 - E11.65) chronic problem - may increase or add med based on lab results May, Essential (primary) hypertension (ICD-10 - I10) chronic and controlled adequately at this time. May, Coronary artery disease involving muscogee coronary artery of muscogee heart without angina pectoris (ICD-10 - I25.10) May, BMI 50.0-59.9, adult (ICD-10 - Z68.43) Pt is encouraged to lose weight, change diet, and increase exercise as tolerated. [employer] Other 09-12-2022 Note [id number] 02-05-2022 Evaluation + Plan noteExtracted from: Title:Procedure [...] Scheduled Tests Laboratory* Basic Metabolic Panel 06/06/21 [facility]09-08-2022 Hospital Discharge instructions Patient Education 02/05/2022 10:35:09 CV - Cardiovascular Discharge Instructions (CUSTOM) [place], [place] CARDIOVASCULAR DISCHARGE INSTRUCTIONS Diet: Resume pre-procedure [...] hours post procedure: Actoplus MetGlucophageGlucophage XR GlucovanceAvandametFortamet Mal-uziowfdicWfqbxbNchc-qolppxdmp GlumetzaJanumetMetaglip RiometGlycomet *Minimal pain, soreness and/or discomfort [...] you are interested in smoking cessation, contact [facility] at [phone], ext. [phone]. In the event you are unable to reach your physician, please call [facility] at [phone] and the glass lathe operator will assist you. Seek Immediate Medical Care for: Bleeding: Apply continuous pressure to the site and Call 911. Should the arm or leg become cold, numb, blue or white call your physician immediately. Signs of infection are redness, warmth, swelling, increased tenderness, colored drainage, fever or chills Chest pain Follow Up Care 01/27/2022 09:04:57 With:Kushal Page Address: [address] [place] [phone] Business (1) When:03/09/2022 11:15:00 [facility]09-08-2022 NoteProcedure The risk/benefits of the procedure were [...] Education Routine Capillary Glucose POC Saline Lock InsertSelect [facility] Specialty Hospital - AkronComment on above:Result Comment: Electronically Signed By: Camilo STARK, Kushal Moran.br\Date and Time Signed: 02/05/22 06:47 [id number] Evaluation + Plan note Future Scheduled Tests Laboratory* Basic Metabolic Panel 06/06/21 [facility]05-12-2021 Hospital Discharge instructions* Follow Up Appointment 1:Physician/Dept/Service: Kaity Zapata (VIN N.PKami)Scheduled Date/Time: [id number]-[id number]: VIN Romano officePhone Number: [phone] [facility]05-10-2021 History of Present illness Narrative* 65-year-old male who is followed for persistent atrial fibrillation. He underwent antiarrhythmic drug loading with sotalol October 07, 2020 and presents to the office today for follow-up evaluation. His carvedilol was discontinued due to heart rates in the 40s post drug loading. He did require cardioversion on October 09, 2020 for christian of sinus rhythm. * Since the last [...] per 2D echocardiogram dated June 07, 2020, [place] [employer] class II, stage B heart [...] software was utilized to prepare this document. [facility] 320 DO Work Phone: [phone]) [phone] History of Present illness Narrative* 65-year-old male who is followed for persistent atrial fibrillation. He underwent antiarrhythmic drug loading with sotalol October 07, 2020 and presents to the office today for follow-up evaluation. His carvedilol was discontinued due to heart rates in the 40s post drug loading. He did require cardioversion on October 09, 2020 for christian of sinus rhythm. * Since the last [...] per 2D echocardiogram dated June 07, 2020, [place] [employer] class II, stage B heart [...] software was utilized to prepare this document. [facility] [place] Work Phone: Evaluation + Plan note Future Appointments Appointment Date:01/23/2022 03:00:00 PM Scheduled Provider:Kushal Page MD Location:[facility] Appointment Type:Cardiology Follow Up ([place]) Future Scheduled Tests Laboratory* Basic Metabolic Panel 06/06/21 Radiology* NM Myocardial Spect Rest/Stress 2 Day 12/05/21 [facility] Future Appointments Appointment Date:02/05/2022 08:00:00 AM Scheduled [facility] ([facility]) Future Scheduled Tests Laboratory* Basic Metabolic Panel 06/06/21 Radiology* CV Cardiovascular 02/05/22 [facility] Future Appointments Appointment Date:09/08/2022 03:15:00 PM Scheduled Provider:Kushal Page MD Location:[facility] Appointment Type:Cardiology Follow Up ([place]) Future Scheduled Tests Laboratory* Basic Metabolic Panel 06/06/21 [facility]* Musculoskeletal: ROM intact, no joint swelling, [...] wounds, or clubbingPsychological: Appropriate mood and behavior [facility] noteNo InformationNortUPMC [facility] [employer] Other Evaluation note* Diagnosis Paroxysmal atrial fibrillation (CMS/HCC) Atrial fibrillation Coronary artery disease involving muscogee coronary artery of muscogee heart without angina pectoris Ischemic cardiomyopathy Other specified forms of chronic ischemic heart disease Chronic systolic congestive heart failure, NYHA class 2 (CMS/HCC) Hypercoagulable state due to paroxysmal atrial fibrillation (CMS/HCC) Medication course changed Mixed hyperlipidemia High risk medication use documented in this encounter [facility] Work Phone: History general Narrative - Reported* Type Description Date Medical History Gout Medical History Depression Medical History HTN Medical History stroke Medical History Atrial fibrillation Medical History DM Surgical History Back surgery Surgical History Hernia Surgical History Mass removed from skin of neck Surgical History heart cath with stent placed Hospitalization History See past surgical hx Hospitalization History Stroke 05/2019 [employer] [facility] Other History of Present illness Narrative* Patient is new to this provider, he is accompanied by his who works at [employer] in the cafeteria. Prior records were [...] function test, and Lexiscan stress test at [facility]. He states he has absolutely no energy and is easily fatigued, he is short of breath and he has a nonproductive cough. He denies fever or chills. He isaccompanied by his who questions whether he may change his cardiology follow-up to [facility] due to proximity to home. * Patient wishes to establish care at [facility]. Predominant complaints are unrelenting fatigue, short-term memory [...] per 2D echocardiogram dated June 07, 2020, [place] [employer] class II, stage B heart failure. * 10. Gouty arthritis. Patient remains on allopurinol, no recent recurrence. * 11. Abnormal perfusion imaging showing an LV ejection fraction in the 20s, with subsequent cardiac catheterization showing LV ejection fraction of 45%, this was done at [facility] and that particular Catheterization did not show any flow-limiting disease. The perfusion study was done in December 2021, cardiac catheterization from January 2022 showed nonobstructive coronary artery disease of theleft system widely patent RCA stent LVEF 45% moderately dilated left ventricular chamber dimension mildly elevated LV end-diastolic pressure. * EKG from today shows normal sinus rhythm at 64 bpm DE interval 148 ms QRS duration 106 ms [...] ALT and AST mildly elevated hemoglobin 13.4. -[facility] 250 DO Work Phone: History of Present illness Narrative* Patient with atherosclerotic muscogee vessel coronary artery disease, multiple cardiac risk [...] per 2D echocardiogram dated June 07, 2020, [place] [employer] class II, stage B heart failure. * 10. Gouty arthritis. Patient remains on allopurinol, no recent recurrence. * 11. Abnormal perfusion imaging showing an LV ejection fraction in the 20s, with subsequent cardiac catheterization showing LV ejection fraction of 45%, this was done at [facility] and that particular Catheterization did [...] will defer to sleep medicine * Recommendations: -[place] [address] DO Work Phone: History of Present illness Narrative* Patient with atherosclerotic muscogee vessel coronary artery disease, multiple cardiac risk [...] per 2D echocardiogram dated June 07, 2020, [place] [employer] class II, stage B heart failure. * 10. Gouty arthritis. Patient remains on allopurinol, no recent recurrence. * 11. Abnormal perfusion imaging showing an LV ejection fraction in the 20s, with subsequent cardiac catheterization showing LV ejection fraction of 45%, this was done at [facility] and that particular Catheterization did [...] will defer to sleep medicine * Recommendations: [facility] Work Phone: Hospital course Narrative No data available for this section [facility] No data available for this section [facility] Center[facility] note No data available for this section [facility] Chief Complaint Patient is here today for [...] function test, and Lexiscan stress test at [facility]. He states he has absolutely no energy andis easily fatigued, he is short of breath and he has a nonproductive cough. He denies fever or chills. He is accompanied by his who questions whether he may change his cardiology follow-up to [facility] due to proximity to home. * Physical [...] per 2D echocardiogram dated June 07, 2020, [place] [employer] class II, stage B heart failure. * 10. Gouty arthritis. * Recommendations: * 1. Continue current medications as prescribed. * 2. I discussed with the patient that he may follow-up with a mining professionals in [facility] as requested. He was instructed to notify [facility] if he requires any medical records to be transferred. * 3. Lifestyle modifications were discussed regarding increasing activity and exercise as well as weight reduction. Patient was instructed to decrease consumption of carbohydrates and increase protein,vegetables, and fruit. He was also instructed to increase water intake and reduce caffeine consumption. * Evaluation and note by Katiy Holt CNP * Please excuse any errors [...] class 2 (CMS/HCC) Procedures Transthoracic Echo Complete DE ECHO TTHRC R-T 2D W/WOM-MODE COMPL SPEC&COLR D Margret Stevens MD [address] [address] Referral ID Status Reason Start Date Expiration Date Visits Requested Visits Authorized [id number] Pending Review Perform Procedure 07/19/2023 07/18/2024 1 1 Specialty Diagnoses / Procedures Referred By Silvina nichols Referred To Contact Diagnoses Paroxysmal atrial fibrillation (CMS/HCC) Procedures ECG 12 Lead Margret Stevens MD [address] [facility] [address] [place] [address] Referral ID Status Reason Start Date Expiration Date V isits Requested Visits Authorized [id number] Authorized 07/19/2023 07/18/2024 1 1 Specialty Diagnoses / Procedures Referred By Contcecy t Referred To Contact Cardiology Diagnoses Paroxysmal atrial fibrillation (CMS/HCC) Coronary artery disease involving muscogee coronary artery of muscogee heart without angina pectoris Ischemic cardiomyopathy Procedures Follow Up In Cardiology Margret Stevens MD [address] [facility] [address] [place] [address] Margret Stevens MD [address] [facility] [address] [place] [address] Referral ID Status Reason Start Date Expiration Date V isits Requested Visits Authorized [id number] Authorized 07/19/2023 07/18/2024 1 1 Reason 07/06/22 Counselor office, scanning recent documents we have from [facility], but we do not have all of them Diagnosis 1 Coronary artery dise ase involving muscogee coronary artery of muscogee heart without angina pectoris (I25.10) Referral Organization [facility] conrad Referring Provider First Name Beena Referring Provider Last Name Jeyson Referring Provider Specialty [facility] Referred Organization [facility] Referred Provider Albaro Au Referred Address [address] [place] [address] [place], [place],[address] Referred Provider Specialty Internal Med icine Referral Priority Routine Referral Appointment Date 2022-07-06 General Notes Gerri Davis 11:54:25 AM >received today, ins card attached along with previous [facility] note. referral faxed to Gerri Stapleton 06/25/2022 [...] section and content) DATE CREATED AUTHOR 07/24/2021 [facility] DATE CREATED AUTHOR AUTHOR'S ORGANIZ ATION 09/12/2022 [facility] DATE CREATED AUTHOR AUTHOR'S ORGANIZ ATION 09/26/2022 [facility] DATE CREATED AUTHOR AUTHOR'S ORGANIZ ATION 11/06/2022 [facility] DATE CREATED AUTHOR AUTHOR'S ORGANIZ ATION 02/16/2023 [employer] DATE CREATED AUTHOR AUTHOR'S ORGANIZ ATION 02/16/2023 [facility] DATE CREATED AUTHOR AUTHOR'S ORGANIZ ATION 07/20/2023 [facility] Manager Group Team (unrecognized sect ion and content) Reprint Sorter Relationship Specialty Start Date End Date Beena Benítez MD [address] [place] [address] PCP - General Family Medicine 07/19/23 REASON FOR VISIT (unrecogniz ed section and content) Reason Comments Follow-up 5 month Specialty Diagnoses / Procedures Referred By Contac t Referred To Contact Diagnoses Paroxysmal atrial fibrillation (CMS/[facility]) Procedures ECG 12 Lead Margret Stevens MD [address] [place] [address] [address] [place] [address] Referral ID Status Reason Start Date Expiration Date V isits Requested Visits Authorized [id number] Authorized 07/19/2023 07/18/2024 1 1 FOR RECORDS [...] BE BASED ON THE PRIMARY CLINICAL RECORDS. [employer] [facility]. provides no warranty or guarantee of the accuracy or completeness of information in this document.
[2023-09-09 08:38] LABS: Anion Gap 12.5; Calcium 9.2 mg/dL (8.5-10.1); Carbon Dioxide 27.8 mmol/L (21.0-32.0); Chloride 101 mmol/L (98-107); Estimated GFR (African America >60 (>=60); Estimated GFR (Non-African Ame >60 (>=60); Glucose 173 mg/dL (74-106); Potassium 4.3 mmol/L (3.5-5.1); Sodium 137 mmol/L (136-145)
== END 2023-09-09 08:10 | disposition home or self-care (01) ==
LOC: LAB 08:12
PROVIDERS: PCP Family Medicine
DX: R06.02 Shortness of breath (principal); R60.9 Edema, unspecified
CPT/HCPCS: 36415; 80048

== ENCOUNTER 2023-10-14 07:21 | Outpatient (OUT) | payer MEDICARE, SELFPAY ==
--- OUTSIDE RECORDS SUMMARY | 2023-10-14 07:25 | XMS_ITS | CCD ---
Author Organization [facility] Care Team Providers Care Clinical Research Nurse Name Role Phone Beena Benítez Unavailable Adam [...] Unavailable REQUEST, DR ALFARO LISTED Primary Care Unavaila tom ANTONIO, DR LORENA Banks Consulting Unavailable MORRIS .TOÑA Admitting Unavailable MORRIS .TOÑA Attending Unavailable MORRIS .TOÑA Consulting Unavailable [...] Dr. Beena Cunha Primary Care Unav ailable Rodnye, Dr. Oswald Referring Unavailable Stevens, Dr. Oswald [...] Unav ailable Rodney, Dr. Oswald Referring Unavailable Stevens, Dr. Oswald Attending Unavailable Stevens, Dr. Oswald Attending Unavailable Benítez, Dr. Beena Cunha Primary Care Unav ailable Stevens, Dr. Oswald Referring Unavailable Kelly Jane Unavailable Beena Benítez MD Primary Care Provider Beena Benítez MD Primary Care Provider MARGRET STEVENS Attending Unavailable BEENA BENÍTEZ Primary Care Unavailable RODNEY, MARGRET Attending Unavailable MARGRET STEVENS Referring Unavailable BEENA BENÍTEZ Primary Care Unavailable Allergies Allergy Classification Reported Allergen(s) Allergy Type Date of Onset Reaction(s) Facility (1 source) No Known Medication Allergies; Translations: [No Known Medication Allergies] Propensity to adverse reactions (disorder) [facility] Repository (10 sources) dapagliflozin; Translations: [Jonnxiga TABS] Drug Allergy [address] Work Phone: Medications Current Medications Medication Drug [...] day(s), # 90 tab(s), Refills(s) 3, Pharmacy: [facility]/pharmacy #[id number], 178, cm, 01/23/22 14:05:00 EDT, Height/Length Dosing, 170, kg, 01/23/22 14:05:00 EDT, Weight Dosing Start Date: 01/24/22 Stop Date: 01/19/23 Status: Ordered Start: 01-23-2022 take 4 tablets by mouth once P lavix 75 mg Tab 300 mg = 4 tab(s), Oral, Once, 300 mg Loading Dose, # 4 tab(s), Refills(s) 0, Pharmacy: [facility]/pharmacy #[id number], 178, cm, 01/23/22 14:05:00 [...] mg) by mouth once daily. As needed Active Colchicine 0.6 M G Oral Capsule [...] DULoxetine 60 mg delayed release oral capsule (8 sources) Serotonin and Norepinephrine Reuptake Inhibitor Start: 11-05-2022 take 1 capsule by mouth once daily DULoxetine (Cymbalta) [address] capsule Take 1 capsule (60 mg) by mouth once daily. 03/01/2023 Active furosemide 20 mg oral tablet (11 sources) Loop Diuretic Start: 10-04-2023 End: 10-03-2024 take 1 tablet by mouth twice daily furosemide (Lasix) 20 mg tablet Indications: SOB (shortness of breath) , Edema, unspecified type , Chronic systolic congestive heart failure, NYHA class 2 (Multi) Take 1 tablet (20 mg) by mouth 2 times a day. 180 tablet 3 10/04/2023 10/03/2024 Active Start: 08-20-2023 End: 10-04-2023 take 1 tablet by mouth once daily furosemide (Lasix) 20 mg tablet Indications: SOB (shortness of breath) , Edema, unspecified type Take 1 tablet (20 mg) by mouth once daily. 90 tablet 3 08/20/2023 10/04/2023 Discontinued (Reorder) Start: 07-06-2022 take 0.5 tablet by m outh once daily Furosemide 20 MG Oral Tablet TAKE 0.5 TABLET Daily Quantity: 45 Refills: 3 Ordered: 06-Jul-2022 Margret Stevens MD Start : 06-Jul-2022 Active dose decreased Start: 07-01-2021 End: 04-09-2023 take 1 tablet by mouth once daily furosemide 20 mg Tab 20 mg = 1 tab(s), Oral, Daily, X 90 day(s), # 90 tab(s), Refills(s) 3, Pharmacy: [facility]/pharmacy #[id number], 179, cm, 03/09/22 11:22:00 EDT, Height/Length Dosing, 171, kg, 03/09/22 11:22:00 EDT, Weight Dosing Start Date: 04/14/22 Stop Date: 04/09/23 Status: Ordered losartan potassium 50 mg oral tablet (20 sources) Angiotensin 2 Receptor Ashely Start: 10-09-2021 End: 10-04-2022 take 1 tablet by mouth twice daily losartan 50 mg Tab 50 mg = 1 tab(s), Oral, BID, X 90 day(s), # 180 tab(s), Refills(s) 3, Pharmacy: [facility]/pharmacy #[id number], 178, cm, 06/20/21 9:09:00 [...] tablet (750 mg) by mouth once daily. Active metFORMIN HCl Ac tive take 1 tablet by mouth twice alda ly metFORMIN 750 mg oral tablet, extended release ; 1 tab(s) orally 2 times a day Quantity: 0 Refills: 0 Ordered: 07-Oct-2020 Andreia Petersen Generic Substitution Allowed modafinil 100 mg oral tablet (6 sources) Sympathomimetic-like Agent Start: 01-26-2023 take 1 tablet by mouth once daily modafinil (Provigil) 100 mg tablet Take 1 tablet (100 mg) by mouth once daily. 01/26/2023 Active take 1 tablet by inocencio th every twenty-four hours Modafinil 200 MG 1 tablet once a day Active Multivitamin preparation (9 sources) Multivitamin Act trish take 1 tablet by mouth once dudley y Multiple Vitamins oral tablet ; 1 tab(s) orally once a day Quantity: 0 Refills: 0 Ordered: 07-Oct-2020 Andreia Petersen Generic Substitution Allowed multivitamin tablet (2 sources) take 1 tablet by inocencio th once daily multivitamin tablet Take 1 tablet by mouth once daily. Active take 1 tablet by mouth once dudley y multivitamin tablet Take 1 tablet by mouth [...] capsule (20 mg) by mouth once daily. 03/21/2023 Active Ozempic 0.25 mg or 0.5 mg (2 mg/3 mL) pen injector (1 source) Start: 09-16-2023 Ozempic 0.25 mg or 0.5 mg (2 mg/3 mL) pen injector 1 (one) time per week. 09/16/2023 Active microencapsulated potassium chloride 20 meq extended release oral tablet (2 sources) Start: 08-20-2023 End: 10-03-2024 take 1 tablet by mouth once daily potassium chloride CR (Klor-Con M20) 20 mEq ER tablet Indications: SOB (shortness of breath) , Edema, unspecified type Take 1 tablet (20 mEq) by mouth once daily. Do not crush or chew. 90 tablet 3 10/04/2023 10/03/2024 Active predniSONE 20 mg oral tablet (2 sources) Start: 05-07-2023 take 1 tablet by mouth every twelve hours predniSONE 20 MG 1 tablet Orally bid for 5 day(s) Apr, Active rivaroxaban 20 mg oral tablet (20 sources) Factor Xa Inhibitor Start: 09-21-2023 End: 10-04-2023 take 1 tablet by mouth once daily at mealtime rivaroxaban (Xarelto) 20 mg tablet Indications: Unspecified atrial fibrillation (Multi) TAKE 1 TABLET BY MOUTH ONCE DAILY WITH BIGGEST MEAL OF THE DAY 30 tablet 3 10/04/2023 Active Start: 05-15-2023 Xarelto 20 mg tablet Indications: [...] Active rosuvastatin calcium 20 mg oral tablet (18 sources) HMG-CoA Reductase Inhibitor Start: 08-17-2022 End: 10-03-2024 take 1 tablet by mouth once daily rosuvastatin (Crestor) 20 mg tablet Indications: Mixed hyperlipidemia Take 1 tablet (20 mg) by mouth once daily. 90 tablet 3 10/04/2023 10/03/2024 Active sacubitril 97 mg / valsartan 103 mg oral tablet (20 sources) Angiotensin 2 Receptor Ashely Start: 07-19-2023 End: 10-04-2023 take 1 tablet by mouth twice daily sacubitriL-valsartan (Entresto) 97-103 mg tablet Indications: Chronic systolic congestive heart failure, NYHA class 2 (Multi) , Ischemic cardiomyopathy Take 1 tablet by mouth 2 times a day. 180 tablet 3 10/04/2023 Active Start: 11-23-2022 End: 07-19-2023 take 1 [...] mg oral tablet (20 sources) Antiarrhythmic Start: 08-20-2023 End: 10-04-2023 take 1 tablet by mouth twice daily sotalol (Betapace) 80 mg tablet Indications: Unspecified atrial fibrillation (Multi) Take 1 tablet (80 mg) by mouth 2 times a day. 180 tablet 3 10/04/2023 Active Start: 10-05-2022 take 1 tablet by inocencio th twice daily sotalol (Betapace) 80 mg tablet [...] reason (Rx) Start Date: 11/05/20 Status: Ordered spironolactone 25 mg oral tablet (1 source) Aldosterone Antagonist Start: 10-04-2023 End: 10-03-2024 take 1 tablet by mouth once daily spironolactone (Aldactone) 25 mg tablet Indications: SOB (shortness of breath) , Edema, unspecified type , Chronic systolic congestive heart failure, NYHA class 2 (Multi) Take 1 tablet (25 mg) by mouth once daily. 90 tablet 3 10/04/2023 10/03/2024 Active 24 hr venlafaxine 37.5 mg extended [...] Chew 1 tablet (81 mg) once daily. Active Aspirin 81 MG TA BS TAKE [...] Start: 05-17-2020 take 2 tablets by mo [facility] at bedtime atorvastatin 40 mg Tab 80 [...] Margret Stevens MD Start : 17-Aug-2022 Active Ketorolac (8 sources) Nonsteroidal Anti-inflammatory Drug, Cyclooxygenase Inhibitor Start: 01-31-2015 Toradol per 15 mg Jan, 60 mg magnesium oxide 400 mg oral tablet (20 sources) Start: 12-21-2022 take 1 tablet by mouth once daily Magnesium Oxide -Mg Supplement 400 (240 Mg) MG Oral Tablet TAKE 1 TABLET BY MOUTH EVERY DAY Quantity: 90 Refills: 3 Ordered: 21-Dec-2022 Kiaty Rodriguez Start : 21-Dec-2022 Active Start: 10-09-2020 [...] tablet (400 mg) by mouth once daily. Active Multi Vitamin Oral Tablet (20 sources) [...] injectable suspension (10 sources) Corticosteroid Start: 05-07-20 23 Kenalog-40 Apr, 40 mg Start: 10-25-2018 KENALOG [...] 10-27-2022 2020 Chronic Coagulation and hemorrhagic disorders (8 sources) Other thrombophilia; Translations: [Secondary hypercoagulable state] Onset: 07-19-2023 07-19-2023 Chronic Conduction disorders (10 sources) Chronotropic incompetence; Translations: [Other specified conduction disorders] Chronic Congestive heart failure; nonhypertensive (20 sources) Congestive heart failure stage C; Translations: [Congestive heart failure, unspecified] Onset: 10-28-2022 07-19-2023 Chronic Coronary atherosclerosis and other heart disease (20 sources) Coronary arteriosclerosis; Translations: [Coronary atherosclerosis of unspecified type of vessel, hop[place] or graft] Onset: 09-10-2022 Chronic Coronary atherosclerosis [...] (current) use of anticoagulants] Episodic Other aftercare (14 sources) Treatment changed; Translations: [Long-term (current) use of other medications] Onset: 07-19-2023 07-19-2023 Episodic Other aftercare (3 sources) Other assisted (current) drug therapy; Translations: [OTH CAREER DEVELOPER CURRENT DRUG THERAPY] Onset: 10-28-2022 Episodic Other aftercare (1 source) intermediate (current) use of anticoagulants; Translations: [CAREER DEVELOPER CURRNT USE ANTICOAGULANTS] Onset: 10-28-2022 Episodic Other aftercare (4 sources) Taking high risk medication; Translations: [Other assisted (current) drug therapy] Onset: 07-19-2023 07-19-2023 Episodic Other connective tissue disease (10 sources) Muscle pain; Translations: [Myalgia and myositis, unspecified] Episodic Other infections; including parasitic (14 sources) Personal history of other infectious and parasitic diseases; Translations: [Personal history of COVID-19] Episodic Other lower respiratory disease (20 sources) Dyspnea; Translations: [Shortness of breath] Onset: 05-05-2023 05-05-2023 Episodic Other lower respiratory disease (3 sources) Shortness of breath; Translations: [Shortness of breath] [...] cardiomyopathies] Onset: 07-20-2022 Chronic Residual codes; unclassified (10 sources) Sleep apnea; Translations: [Obstructive sleep apnea (adult)(pediatric)] Onset: 10-04-2023 06-21-2020 Chronic Residual codes; unclassified (19 sources) Obstructive sleep apnea syndrome; Translations: [Obstructive sleep apnea (adult)(pediatric)] Chronic Residual codes; unclassified (1 source) Obstructive sleep apnea (adult) (pediatric) Chronic Residual codes; unclassified (2 sources) Sleep apnea, unspecified; Translations: [Sleep apnea, unspecified] Onset: 10-04-2023 Chronic Residual codes; unclassified (9 sources) Non-smoker; Translations: [Other specified conditions influencing health status] Episodic Residual codes; unclassified (16 sources) Poor short-term memory ; Translations: [Memory loss] Episodic Residual codes; unclassified (1 source) Edema; Translations: [Edema, unspecified] 10-04-2023 Episodic Residual codes; unclassified (2 sources) Edema of lower leg ; Translations: [Localized edema] Onset: 10-04-2023 10-04-2023 Episodic Residual codes; unclassified (2 sources) Edema, unspecified; Translations: [Edema, unspecified] Onset: 10-04-2023 Episodic Residual codes; unclassified (2 sources) Localized edema; Translations: [Localized edema] Onset: 10-04-2023 Episodic Sprains and strains (1 source) Strain of muscle, fascia and tendon of lower back, initial encounter Episodic Transient cerebral ischemia (16 sources) Transient cerebral ischemia; Translations: [Unspecified transient cerebral ischemia] Chronic Unclassified (2 sources) DRUG LOADING WITH SOTALOL 09-26-2020 Comment on above: DRUG LOADING WITH SO TALOL Past or Other Problems Problem Classification Problem Date Documented Date Episodic/Chronic Other lower respiratory disease (4 sources) [...] finding; Translations: [Patient new to provider] Unclassified (2 sources) Onset: 07-19-2023 Resolved: 10-04-2023 07-19-2023 Viral infection (9 sources) Disease caused by 2019-nCoV; Translations: [Other specified viral infection] Onset: 05-05-2023 05-05-2023 Episodic Results Test Name Value Interpretation Reference Range Facility ECG 12 Leadon 10-04-2023 [facility] Work Phone: [facility] Work Phone: ECG 12 Leadon 08-16-2023 [facility] Work Phone: Office Visit (Cardiology)on 02-15-2023 [...] Metabolic Panel; Status:Active - Retrospective Authorization; Requested for:[id number]; Abnormal EKG, Fatigue, High risk medication use, Hyperlipidemia Complete Blood Count; Status:Active - Retrospective Authorization; Requested for:[id number]; Atrial fibrillation IO EKG Electrocardiogram- 12 Lead; Status:Complete; Done: [id number] Morbid obesity with BMI of 50.0-59.9, adult Healthy Weight Tips; Status:Complete - Retrospective Authorization; Done: [id number] Some eating tips that can help you lose weight.; Status:Complete - Retrospective Authorization; Done: [id number] SocHx: Never smoker Tobacco Use Screening; Status:Complete; Done: [id number] Patient Instructions Please bring all medicines, vitamins, [...] options. He and his have joined weight watchers. An EKG was done today, reviewed,No recent [...] per 2D echocardiogram dated June 07, 2020, [place] Heart Association class II, stage B heart failure. 10. Gouty arthritis. Patient remains on allopurinol, no recent recurrence. 11. Abnormal perfusion imaging showing an LV ejection fraction in the 20s, with subsequent cardiac catheterization showing LV ejection fraction of 45%, this was done at [facility] and that particular Catheterization did not [...] This is consistent with chronotropic blunting. 13. [id number] score is 6 14.48-hour Holter monitor-minimum heart rate 46 bpm average heart rate 66 bpm maximum heart rate 99 bpm ventricular patience (more content not included)... Normal [facility] Tobacco Screening.on 023 Fall risk assessment b) One or more fall s in the last year -[facility] [address] DO Work Phone: Tobacco use status CP b) No -[facility] [facility] [address] DO Work Phone: Cardiovasc Arrhythmia Result son 11-30-2022 Cardiovasc Arrhythmia Results Reason For Visit Reason for Visit: Holter Monitor: LORENA is here for the application of a 48 hour Holter monitor. Ordering Physician: Dr. Margret Stevens MD Diagnosis: a-fib NO equipment agreement signed. LORENA understands monitor is to be returned on: 12/02/2022 Monitor number [id number] applied. Holter monitor returned and downloaded. Holter monitor returned and downloaded. 12/03/2022 Holter monitor printed and emailed to [facility] and placed on Dr. Margret Stevens MD [...] (I48.91) Future Appointments Date/TimeProviderSpeci altySite 02/15/2023 12:30 PMMargret Stevens, [id number] [facility] [address] 250 DO Signatures Electronically signed by : Margret Stevens MD; Feb 15 2023 2:58PM EST (Author) Normal [facility] Office Visit (Cardiology)on 11-23-2022 Follow-up visit Diagnoses/Problems [...] Metabolic Panel; Status:Active - Retrospective Authorization; Requested for:[id number]; Morbid obesity with BMI of 50.0-59.9, adult [...] per 2D echocardiogram dated June 07, 2020, [place] Heart [employer] class II, stage B heart failure. 10. Gouty arthritis. Patient remains on allopurinol, no recent recurrence. 11. Abnormal perfusion imaging showing an LV ejection fraction in the 20s, with subsequent cardiac catheterization showing LV ejection fraction of 45%, this was done at [facility] and that particular Catheterization did not [...] This is consistent with chronotropic blunting. 13. [id number] score is 6 Laboratory data from September 2022 s (more content not included)... Normal [facility] Tobacco Screening.on 023 Adult depression screening assessment No [facility] [facility] 250 DO Work Phone: Fall risk assessment a) No falls within the last year [facility] [facility] 250 DO Work Phone: Tobacco use status [facility] b) No -[facility] [facility] 250 DO Work Phone: BNPon 10-27-2022 Natriuretic peptide B (Bld) [Mass/Vol] 80.0 pg/mL Normal <=900.0 [facility] Comment on above: Performed By: #### B LOCKSTITCH CUP SETTER, CK, TSH #### [facility] [address] [address] [address] Maria T Canela CPKon 10-27-2022 CK [Catalytic activity/Vol] 302 U/L Normal 39-308 [facility] Comment on above: Performed By: #### B LOCKSTITCH CUP SETTER, CK, TSH #### [facility] [address] [address] [address] Maria T Canela FREE T4on 10-27-2022 Free T4 [Mass/Vol] 0.87 ng/dL Normal 0.76-1.46 [facility] Comment on above: Performed By: #### F T4 ####[facility] [address] [address]Dr. Maria T Canela GLYCOHEMOGLOBIN A1Con 2022 ADA RECOMMENDATION SEE BELOW Normal [facility] Comment on above: Result Comment: ADA RECOMMENDED LIMIT 4.0 - 6.0 ADA THERAPEUTIC TARGET < 7.0 ACTION SUGGESTED > 7.0 Performed By: #### A 1C #### [facility] [address] [place] [address] Dr. Mraia T Canela Glucose [Mass/Vol] 169 mg/dL Normal [facility] Comment on above: Performed By: #### A 1C #### [facility] [address] [address] [address] Maria T Canela HbA1c (Bld) [Mass fraction] 7.5 % Critically high 4.5-6.2 [facility] Comment on above: Performed By: #### A 1C #### [facility] [address] [address] [address] Maria T Canela SED RATE WESTERGRENon 2022 SED RATE 15 mm/hr Normal <=20 [facility] Comment on above: Performed By: #### S EDR ####[facility] [address] [place], [place] [address]CsDr. Maria T Canela TSHon 10-27-2022 TSH 1.477 uIU/mL Normal 0.358-3.740 [facility] Comment on above: Performed By: #### B LOCKSTITCH CUP SETTER, CK, TSH #### [facility] [address] [place], [place] [address] Dr. Maria T Canela Office Visit (Cardiology)on [...] per 2D echocardiogram dated June 07, 2020, [place] Heart Association class II, stage B heart failure. 10. Gouty arthritis. Patient remains on allopurinol, no recent recurrence. 11. Abnormal perfusion imaging showing an LV ejection fraction in the 20s, with subsequent cardiac catheterization showing LV ejection fraction of 45%, this was done at [facility] and that particular Catheterization did not show any flow-limiting disease. The perfusion study was done in December 2021, cardiac catheterization from January 2022 showed nonobstructive coronary artery disease of the left system widely patent RCA stent LVEF 45% moderately dilated left ventricular chamber dimension mildly elevated L (more content not included)... Normal [facility] Tobacco Screening.on 023 Tobacco use status [facility] b) No -[facility] y 250 DO Work Phone: Heart and Vascular Office/ in Noteon 09-26-2022 Heart and Vascular Office/Clinic Note [...] in office. He had echocardiogram performed at [facility], which was normal. He was ordered [...] protocol. [1] patient was then referred to [place] and was placed on sotalol followed by [...] progressive dry (more content not included)... Normal [facility] Comment on above: Result Comment: Elec tronically Signed By: Camilo STARK, Kushal Galarza Other Comment: Appar ent pt no show Cardiac Stress Teston 2022 Cardiac Stress Test [address], [address] [place] [address] Exercise Stress Test Patient Name: LORENA GOULDCOLBY Ordering Physician: [id number] Margret Stevens Study Date: 09/10/2022 Reading Physician: [id number] Kim Mckeon MD, [facility] MRN/PID: [id number] Supervising Physician: [id number] Kim Mckeon MD, [facility] Accession/Order#: [id number] Referring Physician: MARGRET STEVENS Date of : 1955 PCP: Beena Benítez Gender: M Fellow: Height: 177.80 cm Nurse: Tigre De La Rosa RN Weight: 168.74 kg Gaming Investigator: ROB BSA: 2.72 m2 Technologist: BMI: 53.38 kg/m2 Additional Staff: Age: 66 years cc report to: Patient Location: cc report to: [id number] Margret Stevens Study Type: Cardiac Stress Test Diagnosis/ICD: R94.31-Abnormal electrocardiogram [ECG] [EKG]; I25.10-Atherosclerotic heart disease; I42.9-Cardiomyopathy, unspecified; I50.9-Heart failure, unspecified; R06.02-Shortness of breath Indication: Cardiomyopathy Procedure/CPT: Stress Test Interpretation-[id number]; Stress Test Supervision-[id number] Falls Risk: Low: Patient has low risk [...] The adequate level of stress was achieved. [id number] Kim Mckeon MD, [facility] Electronically signed on 09/10/2022 at 6:25:43 PM Final Normal [facility] Cardiac Stress Test MP-No rth [place] [facility] [facility] [address] DO Work Phone: Office [...] History of Present Illness Patient with atherosclerotic hopland vessel coronary artery disease, multiple cardiac risk [...] per 2D echocardiogram dated June 07, 2020, [place] Heart [employer] class II, stage B heart failure. 10. Gouty arthritis. Patient remains on allopurinol, no recent recurrence. 11. Abnormal perfusion imaging showing an LV ejection fraction in the 20s, with subsequent cardiac catheterization showing LV ejection fraction of 45%, this was done at [facility] and that particular Catheterization did not show any flow-limiting disease. The perfusion study was done in December 2021, cardiac catheterization from January 2022 showed nonobstructive coronary a (more content not included)... Normal [employer] [facility] Tobacco Screening.on 023 Fall risk assessment c) Not medically indicated -[facility] [facility] 250 DO Work Phone: Tobacco use status [facility] b) No MP-[facility] [facility] [address] DO Work Phone: BNPon 07-20-2022 Natriuretic peptide B (Bld) [Mass/Vol] 72.0 pg/mL Normal <=900.0 [facility] Comment on above: Performed By: #### B MP, BNP ####[facility] [address] [address]Dr. Maria T Canela PROF CHEM 8 (BAS METB)on Anion gap [Moles/Vol] 11.8 mmol/L Normal [facility] Comment on above: Performed By: #### B MP, BNP ####[facility] [address] [place], [place] [address]Dr. Maria T Canela Calcium [Mass/Vol] 9.2 mg/dL Normal 8.5-10.1 [facility] Comment on above: Performed By: #### B MP, BNP ####[facility] [address] [address]Dr. Maria T Canela Chloride [Moles/Vol] 101 mmol/L Normal 98-107 [facility] Comment on above: Performed By: #### B MP, BNP ####[facility] [address] [place], [place] [address]Dr. Maria T Canela CO2 [Moles/Vol] 28.1 mmol/L Normal 21.0-32.0 [facility] Comment on above: Performed By: #### B MP, BNP ####[facility] [address] [place], [place] [address]Dr. Maria T Canela Creatinine [Mass/Vol] 0.82 mg/dL Normal 0.70-1.30 [facility] Comment on above: Performed By: #### B MP, BNP ####[facility] [address] [address]Dr. Maria T Canela EGFR-AF NEW ZEALANDER >60 Normal >=60 [facility] Comment on above: Performed By: #### B MP, BNP ####[facility] [address] [address]Dr. Maria T Canela EGFR-NON AF NEW ZEALANDER >60 Normal >=60 [facility] Comment on above: Performed By: #### B MP, BNP ####[facility] [address] [place], [place] [address]Dr. Maria T Canela Glucose [Mass/Vol] 190 mg/dL Critically high 74-106 [facility] Comment on above: Performed By: #### B MP, BNP ####[facility] [address] [place], [place] [address]Dr. Maria T Canela Potassium [Moles/Vol] 4.9 mmol/L Normal 3.5-5.1 [facility] Comment on above: Performed By: #### B MP, BNP ####[facility] [address] [place], [place] [address]Dr. Maria T Canela Sodium [Moles/Vol] 136 mmol/L Normal 136-145 [facility] Comment on above: Performed By: #### B MP, BNP ####[facility] [address] [address]Dr. Kettysahra Hilton Urea nitrogen [Mass/Vol] 13.0 mg/dL Normal 7.0-18.0 [facility] Comment on above: Performed By: #### B MP, BNP ####[facility] [address] [place], [place] [address]Dr. Kettysahra Hilton Urea nitrogen/Creatinine [Mass ratio] 15.9 mg/mg Normal [facility] Comment on above: Performed By: #### B MP, BNP ####[facility] [address] [place], [place] [address]DrKami Canela Office Visit (Cardiology)on 07-06-2022 Follow-up visit [...] Metabolic Panel; Status:Active - Retrospective Authorization; Requested for:[id number]; Brain Natriuretic Peptide BNP; Status:Active - Retrospective Authorization; Requested for:[id number]; CHF (NYHA class II, ACC/AHA stage C) Start: Furosemide 20 MG Oral Tablet; TAKE 0.5 TABLET Daily Morbid obesity with BMI of 50.0-59.9, adult Healthy Weight Tips; Status:Complete - Retrospective Authorization; Done: 06Jul2022 Some eating tips that can help you lose weight.; Status:Complete - Retrospective Authorization; Done: 06Jul2022 SocHx: Never smoker Tobacco Use Screening; Status:Complete; Done: [id number] Unlinked Stop: Atorvastatin Calcium 80 MG Oral [...] is accompanied by his who works at [facility] [employer] in the cafeteria. Prior records were [...] function test, and Lexiscan stress test at [facility]. He states he has absolutely no energy and is easily fatigued, he is short of breath and he has a nonproductive cough. He denies fever or chills. He is accompanied by his who questions whether he may change his cardiology follow-up to [facility] due to proximity to home. Patient wishes to establish care at [facility]. Predominant complaints are unrelenting fatigue, [...] abnormal wit (more content not included)... Normal [employer] Tobacco Screening.on 023 Adult depression screening assessment No [facility] y 250 DO Work Phone: Fall risk assessment a) No falls within the last year [facility] y 250 DO Work Phone: Tobacco use status [facility] b) No [facility] y 250 DO Work Phone: CBC AUTO DIFFon 06-15-2022 BASO # 0.1 103/ul Normal 0.0-0.1 [facility] Comment on above: Performed By: #### C BC #### [facility] [address] [place] [address] Dr. Maria T Canela Basophils/100 WBC (Bld) 0.7 % Normal 0.2-2.0 [facility] Comment on above: Performed By: #### C BC #### [facility] [address] [place] [address] Dr. Maria T Canela EO # 0.2 103/ul Normal 0.0-0.7 [facility] Comment on above: Performed By: #### C BC #### [facility] [address] [place] [address] Dr. Maria T Canela Eosinophils/100 WBC (Bld) 2.7 % Normal 0.9-7.0 [facility] Comment on above: Performed By: #### C BC #### [facility] [address] [place] [address] Dr. Maria T Canela Erythrocyte distribution width (RBC) [Ratio] 12.7 % Normal 11.0-15.0 [facility] Comment on above: Performed By: #### C BC #### [facility] [address] [place] [address] Dr. Maria T Canela Hematocrit (Bld) [Volume fraction] 39.7 % Critically low 42.0-54.0 [facility] Comment on above: Performed By: #### C BC #### [facility] [address] [place] [address] Dr. Maria T Canela Hemoglobin (Bld) [Mass/Vol] 13.4 g/dL Critically low 14.0-18.0 [facility] Comment on above: Performed By: #### C BC #### [facility] [address] [place] [address] Dr. Maria T Canela IG # 0.01 10e3/ul Normal 0.00-0.03 [facility] Comment on above: Performed By: #### C BC #### [facility] [address] [place] [address] Dr. Maria T Canela IG % 0.1 % Normal 0.0-0.5 [facility] Comment on above: Performed By: #### C BC #### [facility] [address] [place] [address] Dr. Maria T Canela LYMPH # 1.7 103/ul Normal 1.2-3.8 [facility] Comment on above: Performed By: #### C BC #### [facility] [address] [place] [address] Dr. Maria T Canela Lymphocytes/100 WBC (Bld) 25.0 % Normal 20.5-60.0 [facility] Comment on above: Performed By: #### C BC #### [facility] [address] [place] [address] Dr. Maria T Canela MANUAL DIFF REQ NO Normal [facility] Comment on above: Performed By: #### C BC #### [facility] [address] [place] [address] Dr. Maria T Canela MCH (RBC) [Entitic mass] 30.0 pg Normal 25.9-34.0 [facility] Comment on above: Performed By: #### C BC #### [facility] [address] [place] [address] Dr. Maria T Canela MCHC (RBC) [Mass/Vol] 33.8 g/dL Normal 29.9-35.2 [facility] Comment on above: Performed By: #### C BC #### [facility] [address] [place] [address] Dr. Maria T Canela MCV (RBC) [Entitic vol] 89.0 fL Normal 80.0-94.0 [facility] Comment on above: Performed By: #### C BC #### [facility] [address] [place] [address] Dr. Maria T Canela MONO # 0.6 103/ul Normal 0.3-0.8 [facility] Comment on above: Performed By: #### C BC #### [facility] [address] [place] [address] Dr. Maria T Canela Monocytes/100 WBC (Bld) 9.6 % Normal 1.7-12.0 [facility] Comment on above: Performed By: #### C BC #### [facility] [address] [place] [address] Dr. Maria T Canela NEUT # 4.1 103/ul Normal 1.4-6.5 [facility] Comment on above: Performed By: #### C BC #### [facility] [address] [place] [address] Dr. Maria T Canela Neutrophils/100 WBC (Bld) 61.9 % Normal 43.0-75.0 [facility] Comment on above: Performed By: #### C BC #### [facility] [address] [place] [address] Dr. Maria T Canela Platelet mean volume (Bld) [Entitic vol] 10.6 fL Normal 9.5-13.5 [facility] Comment on above: Performed By: #### C BC #### [facility] [address] [place] [address] Dr. Maria T Canela PLT 163 103/ul Normal 150-450 [facility] Comment on above: Performed By: #### C BC #### [facility] [address] [place] [address] Dr. Maria T Canela RBC 4.46 106/ul Critically low 4.70-6.10 [facility] Comment on above: Performed By: #### C BC #### [facility] [address] [place] [address] Dr. Maria T Canela WBC 6.7 103/ul Normal 4.0-11.0 [facility] Comment on above: Performed By: #### C BC #### [facility] [address] [place] [address] Dr. Maria T Canela GLYCOHEMOGLOBIN A1Con 2022 ADA RECOMMENDATION SEE BELOW Normal [facility] Comment on above: Result Comment: ADA RECOMMENDED LIMIT 4.0 - 6.0 ADA THERAPEUTIC TARGET < 7.0 ACTION SUGGESTED > 7.0 Performed By: #### A 1C #### [facility] [address] [place] [address] Dr. Maria T Canela Glucose [Mass/Vol] 223 mg/dL Normal [facility] Comment on above: Performed By: #### A 1C #### [facility] [address] [place] [address] Dr. Maria T Canela HbA1c (Bld) [Mass fraction] 9.4 % Critically high 4.5-6.2 [facility] Comment on above: Performed By: #### A 1C #### [facility] [address] [place] [address] Dr. Maria T Canela MICROALBUMIN, RAND URon 05-31 mALB <1.3 Normal <=30.0 [facility] Comment on above: Performed By: #### M ALBR #### [facility] [address] [place] [address] Dr. Maria T Canela PROF 14(COMP METB)on 023 Albumin [Mass/Vol] 3.9 g/dL Normal 3.4-5.0 [facility] Comment on above: Performed By: #### C MP #### [facility] [address] [place] [address] Dr. Maria T Canela Albumin/Globulin [Mass ratio] 1.2 {ratio} Normal [facility] Comment on above: Performed By: #### C MP #### [facility] [address] [place] [address] Dr. Maria T Canela ALP [Catalytic activity/Vol] 81 U/L Normal 46-116 [facility] Comment on above: Performed By: #### C MP #### [facility] [address] [place] [address] Dr. Maria T Canela ALT [Catalytic activity/Vol] 65 U/L Critically high 16-63 [facility] Comment on above: Performed By: #### C MP #### [facility] [address] [place] [address] Dr. Maria T Canela Anion gap [Moles/Vol] 12.2 mmol/L Normal [facility] Comment on above: Performed By: #### C MP #### [facility] [address] [place] [address] Dr. Maria T aCnela AST [Catalytic activity/Vol] 47 U/L Critically high 15-37 [facility] Comment on above: Performed By: #### C MP #### [facility] [address] [place] [address] Dr. Maria T Canela Bilirubin [Mass/Vol] 0.5 mg/dL Normal 0.2-1.0 [facility] Comment on above: Performed By: #### C MP #### [facility] [address] [place] [address] Dr. Maria T Canela Calcium [Mass/Vol] 9.1 mg/dL Normal 8.5-10.1 [facility] Comment on above: Performed By: #### C MP #### [facility] [address] [address] [address] Maria T Canela Chloride [Moles/Vol] 98 mmol/L Normal 98-107 [facility] Comment on above: Performed By: #### C MP #### [facility] [address] [address] [address] Maria T Canela CO2 [Moles/Vol] 27.3 mmol/L Normal 21.0-32.0 [facility] Comment on above: Performed By: #### C MP #### [facility] [address] [place] [address] Dr. Maria T Canela Creatinine [Mass/Vol] 0.80 mg/dL Normal 0.70-1.30 [facility] Comment on above: Performed By: #### C MP #### [facility] [address] [place] [address] Dr. Maria T Canela EGFR-AF NEW ZEALANDER >60 Normal >=60 [facility] Comment on above: Performed By: #### C MP #### [facility] [address] [place] [address] Dr. Maria T Canela EGFR-NON AF NEW ZEALANDER >60 Normal >=60 [facility] Comment on above: Performed By: #### C MP #### [facility] [address] [place] [address] Dr. Maria T Canela Globulin (S) [Mass/Vol] 3.3 g/dL Normal [facility] Comment on above: Performed By: #### C MP #### [facility] [address] [place] [address] Dr. Maria T Canela Glucose [Mass/Vol] 291 mg/dL Critically high 74-106 [facility] Comment on above: Performed By: #### C MP #### [facility] [address] [place] [address] Dr. Maria T Canela Potassium [Moles/Vol] 4.5 mmol/L Normal 3.5-5.1 [facility] Comment on above: Performed By: #### C MP #### [facility] [address] [place] [address] Dr. Maria T Canela Protein [Mass/Vol] 7.2 g/dL Normal 6.4-8.2 [facility] Comment on above: Performed By: #### C MP #### [facility] [address] [address] [address] Maria T Canela Sodium [Moles/Vol] 133 mmol/L Critically low 136-145 [facility] Comment on above: Performed By: #### C MP #### [facility] [address] [address] [address] Maria T Canela Urea nitrogen [Mass/Vol] 14.0 mg/dL Normal 7.0-18.0 [facility] Comment on above: Performed By: #### C MP #### [facility] [address] [address] [address] Maria T Canela Urea nitrogen/Creatinine [Mass ratio] 17.5 mg/mg Normal [facility] Comment on above: Performed By: #### C MP #### [facility] [address] [address] [address] Maria T Canela Coding Summary.on 03-18-2022 Coding Summary. CD:[id number] Gh 0bWw+PGhlYWQ+VP8DBKFmG 80gnRXvcR4KX4yGOV5LPCI KSQIPDL4KFW6stPD3KUkqQ 2VybiAv FjpmfTWpSX28CHn4TYZ5yD zhVOirxL5dmRTyK4v8WdWl VN40eP24TOipGSXhCvH2Hk ZpbjsgbWFy S9rmLrHjdLGvXvj+PHRhYm xlIHdpZHRoPScxMDAlJyBz iByiSO1fJq7gEKMcMKSihC xhcHNlOiBj q6vjGMPmRIzhPE0azNeiK8 YaeVV7JNPvf1i1Yv55rVS+ NRYaWAJ8zXfxQEoms890Yz Faj0joVKF7 lTHcTPrmXLJ4P61bw4P6JR RnGLPuRVJ4lAK9kW6kiLxv ritdK8ZrjJBtNmU8QIB0yM QfoH9msMnl crwwyP2vEzo+O95WXP4KST HQVX8HUbw2P5JuDlmhhYU+ OD07IITmJR43sDVysCHxl4 eaqHj2WvWe RSNoMRG5fKbtANzye3QbZA XlG32giZUgj3G4SZOlfNpa lBUsQcCrnVC7gD7wGToogm rvc2orlimw Tcdfa4dimq05vM84B97wWC zqZCEaMWX1ADHtYOEfgIym up0gtS8nAl5+EArbv9jii6 sxjTe2YwHl SUVyqqQizXwlYEK9a6ShGo 62K6AznCueo4RcTps6mj18 sMIjc2O4uUY2CIkmOKAyoG 8dMSmwZbP9 CRTnPsXjeS94zEPmWDynVz 4blQhwkBzcSV6uYQXhcjla VKWfwZ0oFHXxfJTniXkdAP 4wNTBpbjtm t916QoEgWVL7BKIwsRVnG3 NzlA2xHfJtOSBxCVSiD2Cr sACqILbbQ823RShhJiU6LR DmajNdR3Kh IJYbySrlXhE0t7Y3Iu1Pv1 FkrbhwJLK1BTonLQTvUjY3 BoKqJkZ9I9TeQfu9VOIxzZ ncXE6oY5Pj ACMmqdnrbkoafYR6FGIdLG BzmE18oAIlREvmIe8fd5D6 n565VGUmDVMjwT75De1paZ ogMTBwdCBU fB2tcvcci9pptauhFsOwCC HxXSd9BPs3RQZojXhlFzTl KMQ8HsK1UET5bTJedK9zaU ujywbgxA5g Oyc+P44doP1bAWK1KUV0jo irOKQshgChDK39OU95D6Gi PjwvdGFibGU+PGRpdiBzdH vgWA9eDgEf q4lgp4CjASrkU5ReIIOsXL dnQsh0YTAzJXC8zGX0qV7e MBGpKMvay1I7wCF9A6Kgqq Miva5eu2hw MUKdANnsO86xeDXlw6W4CC FxnNX0HNUwdMyhBtUygT93 Oyc+POVwoLevt9GbBkhyo7 wew7jpkBu8 SeIeWFKhbcVbeFldYZN5q4 FmMh78L25lSVpsUCKsVNCc XQXbDTQltWayem8fqB5sZg 8+PGNvbCB3 pHP4aE4hQAIgVgV3RWyrL5 77CjTekVVyRxgvu0kxx1mw zXc4KkLvAKCbeaWjgFitNX C7s2IaWn45 F34sGTwfKZVdUZOyYFUoXF WtdAkrte6nwI5tDe7+PC9j e8zpea61rR00kIZ+PHRkIH W8nPkbMMap MBJfaM3sQTyhEkT9EUOxUp BqtG75tDGhDBqjVm8mnIxi jXkqND6wWQLxaxygc101Pz Ipc4bmPCXl kTYxISopJET0J13ud7A9TL PkNUFuEMQ4fML0aB3unLoo bjogbGVmdDsgdmVydGljYW ubWHzgL644 IHRvcDsnPlBhdGllbnQgTm QoMCr6T4RjRdu6QXGpfArb ZB3kpBVbSWqkJx3xrEsfkM qhAB0hEKSl xlfcr060NrEke8mrWFDxvT NwSEyzMUR0C06al0R7HTXt YTToUHB2dGQ0mO0tjJeyrv ogbGVmdDsg ikWkcXqeVRajBPpzJ520EY RvcDsnPkJpcnRoIERhdGU6 BU04MD00aVAgn9S7vGC5X4 BhZGRpbmct ytthaBM7LNWsKCSyrH17Es 1dqQrpSb8wJSRfLBI4IIJn dACfK7PsdK5yAcSmIXOvYC YgM8RjjFEe ACuyA196JGwnPuL3DZFiqa QbK8TpYJGcbSpcWxJ2m4V2 Xf4HW2F1NX19XF04cXHwg2 N7gKX0M9Ce SORmsqlsdrgbrCW0SCYqKN EwdG90Lf7vfIefHh6pYURw OQH2KZWkmGPoS0MghW4tOl AjMDAwMDAw U7DmtIDfJGxlQ390MMgaYj V3MNDjvqVwP4GwSPYbnZwc EqG0p0C8Mz4UUOy9QJ22LA 22vFWyv9Z8 fRQ7F2BnOGTvlxebqyepxR J6BRArNXJcyH50Fc4txPva Qk2zXJJqLIX8AFFdmTWlP6 EqrO3wUbLg LZWtAAOhS1AicDZlGDngA1 28ZAbkXsD8TJWgqhOxY4Zc QUOqxCpfNsH7r6J9Ol7MBT EaII20ICN5 xRW1GD42QT78I1HpZnshcT FibGU+PHRhYmxlIHdpZHRo JKyjJMNeWqTdsXfuTO5hOv 9yZGVyLWNv bVexvSNeMgCfm0zqYDOcIK sjRL6ofIyiG2DhjGL5KBVd n5u6Yb44L13zZ2YdjVV+PG UbeQW3fUF0 aC3uQwBpAbX0EQjxH759Uq TqrKNxApdll3tgq4ohpSv1 UwN2UKCfnpPdzRbxLVE5i8 YiNo76T46n IHdpZHRoPSIxNSUiIHZhbG bzim0zvF2gCt2+PGNvbCB3 dDC8zU2jSgQaVhU5YYsrF7 49InRvcCIv Xplop3tkl5sqfVv9AnLgRJ QzghTdeLcuUQO8v3SsTv59 V6SgqBfxf0YfAxg9ho95cG Lcw9U8zLB2 D0HnRKTjoancjBPwlDiiVK 8pCSXaqkluXLGeeZ0hHCDs V1d0JwBtBrJ8QQaiE2Aeia U2RTUyhDKt CDnfMGZ4K94wl1X2CZNvLX QqAZG4iGQ2rG1wuUnjbbve bGVmdDsgdmVydGljYWwtYW ckB162KABl pOefSOZkdD9yUCLprVHclR yzEY7eAMXtlsbtPuQIBgVY UpzbQNRZAJMTSrYLCU25XN 85vFWoj7D1 lCR2G1DcNCXsuqgkhrurqT G9CXKdTTIjlC53aPTpNWlf Lk5gj4X3v292AIXyZUZdwD 17Fe5sxLpm ABUckVNHxH9snwnxz1vgkd tsLgAoXZHhCXc4BVx3FAXq eAyxJaKrNAZ4DqT9NCZ8oZ DleV0jsIrq gaynmZ2mXnu+MDUvMTEvMT b4ZTtxfSG+XAJgPRS2jHax RKsoMJXboK7kTUDpC7h1Dx NfUbK3TOap Z2IlSBXqnhseEb85iS7cWm HaVzK4JKsgO2PuioI2YGKj hWAnZCqcANU0T11kp3A7UM MwMDAwMDA7 wNU5pI8crFvjncvovSKddV dpbxOjnEjqFMkgGHdpO435 BRGqlQioEjM8KRgxGERaEO 09JH51qCSb l1C2hCR9D0ZqZDDdacipua dhiSY6IOPeIDAwxJ71qHRj QBxyBu0bb1E4l315PULlPM PieO74Wu4d kVkkUCWidEQYtE3duntid4 mkowtaTzQdCMNtVVu0NGo4 CIAprDvmPuAnBVC4VyC8EM X0oWTwuY9g bKvvhfiyqR4zZvl+TWFsZT wvdGQ+MAAlVJI4gUhwULqx NFZtiY2iJHAjX3n9DaCbDn C0KFbzY4Wc IWZmezusZi90gN3yAbVbIp S2HGhfV3IxwxL5YCMtkSXm LZgfQWI4L75ew1G1HPInLP JiLDF8iAR9 hJ1cqQmapfaqgRFsjAhoqd QjwOwgSViqJRcnI648ZDCc nRebGw19lFAktBbkxjI3T1 RkPjwvdHI+ WY51OGYsUM11qHAhuGXdm7 bkrRl4VqPkUVMbEZL1uOdm GWcyr0IgCQEfL00pbSKem5 U8PHFvoKwq rFQyBpIxnBR6bM8rWUnxky dnq9nzlvwjJbjrw5izts62 dL45U77eCCbvBXHhBHSsPR UiIHZhbGln vv1drG5sXy4+KORbfGW0cC W6lV2mMeCpTwC8MSeyI711 BmNkjCRoLyzeu0puc6zicW d5EuGbWHUw alXyuNngCEI1m8PuSy83D3 9sIHdpZHRoPSIyMCUiIHZh qDkrwh1upY4aKq4+PC9jb2 lojl07lA61 dHI+WWMePNH8hQbsOGmqMR YfcC7pHWmoSqB5UGHoBhKs sD33mTWaMFjmTo7xmFvebB ulSV4tUWLb shpqs789CuLus9lnHMKveY BiUPtcMZZ3Y35yv8X9GBFq WLZfEVF3nNM1yN2pcMeelt ogbGVmdDsg dpUnuVscAYexDNnfC944VR NixFvjJeZvkGNcY0jtbhGO RB2mCvmhnMG+FFBoDNY8rK xlPSdwYWRk lD2nXSMeY4i9KzTpPaR2EL fyP7RhsdJ1VTJokHUpPIAa hGXVtK1zgqbbb0fzbefrDp AwMDAwMDt0 LBs4OBShsEtuHbOlQEW2Dn J3AXW1cBPyhH9nmDoehjrk nH9mLlw+RklOOjwvdGQ+PH LxGJX3dHta AYizZFRdnG8zOSTrV0h2Iz LyCsJ5BRkeK6UbhiW2CRCc pXKcUETnlTMQwY8unrhac5 xvcjogIzAw JSZhIJf3UPq5VRYfnDntHf XdBKS6WaA3OZF3uIZtvC1c oAuyxahzsY1vKab+TVJOOj wvdGQ+PHRk TIE2yMcrMQyxHAPpwN4gJX DjS7b7OrApKkD9PQkzS4Gz mwX1BQRakAAsXVBxbKIImP 1adbypi1ve owonWcNpYESbGTb9IWi3FS WctAtsHlWtKGI4XwX2SVK3 wGTzvM1kjNwhqgkyaG8pKl c+VAA4LTN7 EI36YW49G4EiCffvlBTwuA U+PHRhYmxlIHdpZHRoPScx LFYxLoKnaOvyJU4uQd8kWN VyLWNvbGxh cHNl (more content not included)... Normal [facility] Consent for Treatmenton 02-28 Consent for Treatment [id number] 2099 [id number]#[id number] 0CD:127 Normal [facility] Heart and Vascular Office/Cl inic Noteon 03-09-2022 [...] in office. He had echocardiogram performed at [facility], which was normal. He was ordered [...] protocol. [1] patient was then referred to [place] and was placed on sotalol followed by [...] progressive dry (more content not included)... Normal [facility] Comment on above: Result Comment: Elec tronically Signed By: Camilo STARK, Kushal Galarza\.rita\Date and Time Signed: 03/09/22 11:29 EDT Progress Note-Physicianon Progress Note-Physician [id number]#[id number] 0CD:127 Normal [facility] Coding Summary.on 02-10-2022 Coding Summary. CD:[id number] Gh 0bWw+PGhlYWQ+PK9KPMVcC 43zyKPddK8YE9yBOL5RJAZ FQQVFPW9WRA0qbPD0EFhhA 2VybiAv CczouJRxRH51OWe6NWH7kN qtAYlqaB7wtDYuC3m1LcCs BI75uI04HAggGTGnPcV6Wf ZpbjsgbWFy O4fzTbVxzYLpJto+PHRhYm xlIHdpZHRoPScxMDAlJyBz jRmyCT1rCu8cFQYwLXMmqL xhcHNlOiBj f4wvGOIoNLhnXC1tnMltI1 XbsAW4KIXao7c3He07yZD+ VMAkVQI5zFjzDKnld163Jb Onj8ynBML9 gVYeLCrkAKR6G06xw6V4AW SnAEBjFDB1nXD1zJ0orNgn vilwV4OhfASxZoY4SZT9tP TesQ7qjEdj molarM3tWyi+N65GDQ7CDY CDPK6KWvg1N4YgSbgubHA+ VN11YHKfED71jQXplVTvx9 xpzFp5DtCf ALMiSQO1eSvhOLphm8KqQR VcK88cuMUlq7C4UVOzjTot rSUaWmNelQY6jN3pJXvomq glz8rvoyok Uxivt8efwj83zL80O72lIE mzPKXuQXY8JYGqEEMhaNgd cx0chR3yLn1+CWfcf5bnf2 solOw7OiOi YIQrnkWpnXwoAFD6c2OuHg 19D1QozGjqz3HlXrv3xu92 oNWsk7V5bCK2BUwsGERlsH 4hZVhfDwE3 IQSiTaRhfB68hHIhIKiqUa 0rcLionZytHO4wYEDmjial EPUpcI6fNOHliCJmmLkwRG 4wNTBpbjtm d726NoIsEAO6LGMfnEZiB6 MbcI9xBiCbROWaXQEuE9Ry bFZiCNnhR251IRcjSrY8OO JwzoZrE4Ki LTBrcXlyInW0z3W1Qx2Fm2 DdncawUWW5MPcyETT0TpNi XnRrQfG7Q7DeHnr0UADgiC ozRL0tI5Hc UXRdtlgxhgmqkZS1XQXcFX GzaH59zPFnVUelBr2ix3W8 z876KBXeGAAokR78Fq7fxE ogMTBwdCBU gR4tbebqq9hmbhjuVyDjRK SyWAr2EMc7QIHdoGtwRwDo ZKH2TqJ7KGZ7iCDezC5cfD lxfsbnbP6u Oyc+O61eeC5sDNV4ZXI9hj anXZIzpmChMJ60VA19H8Sk PjwvdGFibGU+PGRpdiBzdH lmMY6sCxYe h5yrb4GcKHvjH5SmMSGkSB ctEzj5KGYlBGG1eNK3wQ6a LZYcNEvfj3G9lLM9O0Mylr Fauq9bw7rf TIKbUGxeH69upEPcn3V3XQ PiwTR5UIShtAfdZaIofT78 Oyc+DSSfsXixy5QjTxecg4 lpi6qfiOx6 FzGuWOErqwDllSawXYT9b7 UrUg44R45aOHcsNPTpLJJk MHYaYORkqRsfkf0bxT7vGx 8+PGNvbCB3 zFA2qE4aDDOqRsA9NCftQ2 79DfLieGTtWkrgy5ynl1vv lGq9QmYlJFQkvtBmhLziEA Q5z1NvZz53 N17qEDttBEHmSSOcNTNbDV UimWiucy7qeJ9bDk0+PC9j z8qliy28oP86aSZ+PHRkIH X0tEznRZdt CISkfJ8cFWpiQuU5MCSkVb MpaC68oDUoRGagNl7dsIyi bLtgNK8cPLYgwpsev952Ft Wal7zpNZFe zYPfMNufPFV4O62tl3K9UK LeVLJhBMZ4pQR1cX4lfGse bjogbGVmdDsgdmVydGljYW ytALbwC765 IHRvcDsnPlBhdGllbnQgTm FzVGb1D8QfLer9EABysXxx XY8poCJsPVsrNy5hpTkimL qhTL8hCXUq bqlbr234ClJbu4opZFFzmO EhBQocDWY0X86xk1I6TAOu DSIqFMO9vEJ0dY8ggZaoyc ogbGVmdDsg glPmwBujWJhePYpdM116YM RvcDsnPkJpcnRoIERhdGU6 VR73KI63aMXtp4K5xPB0G4 BhZGRpbmct xpkuqQH5GRZxPVJylB78Xl 0btQhySo4dZJUjVHL4PWLf dRUfD9DbxL2gMpOvVUBjTH XgC7YyaJVf HSstL257RIhgTaF6JTVhpy VmF3MzUERodMiyYoT9k5R3 Wq4RN8O6PC06SK80pMXyc3 C1iHD4D2Ir PWNvyidhcojwwZB2GJClKX KgvV80Uo4ilVhwFw1iOYTa PAD7VCVljFDsH0EwlJ1fIh AjMDAwMDAw A1OjwFVnNKppI304BVyxWs J8RNQdflCyR5MmPCFmaIhl QsG3x5G5Ca6MRTn1CA50SL 52xSYcf7J1 zYP6P5DrGODgwrhjuumjfA A8STUlOEFypY52Cz0ooKwr Jt2aNKBzUCG7VBBdcUGsH9 DqlF5zGnSh UFTkYJAzY4OxnXDeABkoT1 50FQtjCbF9EYKpgrFwI7Jl VAZcmKnoPlX6y4H0Zx1RIW NfAM15VXR5 sJU8ZB10WK31S0ZlUqacpS FibGU+PHRhYmxlIHdpZHRo CSppUAWbHjDnaGckZG1xZg 9yZGVyLWNv vTztoQTdRvZgi7mbBXFwBZ exKT4naSgrM0XiyRO2SEHg s2g5Pv04Y42mO6IdkTU+PG GhfPD1xIL2 fY9cPaHxRoF3QEbeN524Vj CykUDkTzhul5uxo6ceoOb3 JtQ0XTYclkSzsRywOSI3y1 ZrEg27H75o IHdpZHRoPSIxNSUiIHZhbG yhpl3bvN7gCy0+PGNvbCB3 xOG2wP3hUsSmPzW3FBadG7 49InRvcCIv Vffbd0rgx2mmhCh7RrJaAS WtzyHxgDkkSKW5d9TlUq47 Q4BnsDyvg8RqCsu2bj04xJ Vmq4B2eZM7 M4EwXTKlkvyueIWgcUzgRC 8bJIOydhjqTSRbnO1wWMBj K9e3KpPmIpG2WGjbN6Zrbn L4SYLvlBKy IVgwASV7F95fh6X3OHOzUK NqGLG7gIN0qN6izDnfdzsj bGVmdDsgdmVydGljYWwtYW xbY320RGWg gMdeRRYrvF3kJLMqbIHtgP upVQ1xNOEtopkiSpZYAaXN EmeoPFAMTPEHDeYHAC91WY 35nFYsz7A8 bUX8S5MzMLOmkdxvzfsijQ U5MIJsLXQflF47sNKtJFer Wk0gg4D3b466LFCtTVMnjE 33Es3wzXrk BSXkpGXMdF2irgtbe8dcng xiFsGgODJxYZo4QCg5MIZf qTikLuTbAGQ5IoM7OFA7cB LhzW5evWqm qievyZ1kPkf+MDUvMTEvMT o8QFqueQF+RFWwBTV3gMad TKmqPRRawG3rVQPlW2n7Ht VqGqX9OXvn I7UwJKKazqniTr34dV3sUn UiPtA0XDibM5QzgrZ6XCYe fAGsCVvuSSM8J71sn5C3NY MwMDAwMDA7 xDH9oX2lrErsdcrqwUAlrF qxwyJwfBrrSFjiUYxyI799 NHJcoLynQgU0DIdaPGEnCL 03II35wLGi y9Q9iQJ6B2JhWQBuqexloy upeFL8VDVmBWUuzH63qXNv GVkfVh7mi1H2g096HWHbHC IreZ11Cd5f oAetVVDzoUDTcU3aiuwqf9 ardnwhGeBjFPRhJKj8MNn2 BFGofCwiQrMpINZ2TnI6DF C9rBOlkI0i mWtrtdclwM3zRsy+TWFsZT wvdGQ+CNZoPVC5zNbuMWbz PKZvnK4hEFIfM2f1ReJbEt W8PMcgF8Bc DACczvjuVe20pC6oYbBfCx E5AXggC8PetyF9OHZawCCu WYqpHXO4V81bt9B4ATWcFK PhAQU8mVH8 pQ7zeTdpxsqbvNOhiAuulm MxsKouHBlxONvfK955VPTs cDsnPkFtYnVsYXRvcnkvU2 FtZSBEYXkg B0YjH7VpuTtcwGG+PC90cj 03T9KkKadpKsg7YKUvQFV8 aXW3cI0xMOMhVRqzx2J2uY O7G1KbeoSj xg9gf4vjMZUiDUjpP50goI Vsn1A4EDFlgCS3YFAvvHue XzXqpR43Jzk+PGNvbGdyb3 FzHxssm6uz t4jchFq5BcZzHDLiwsIreL iiTHR3m2NqQe82I80pYUdk ZHRoPSIzMCUiIHZhbGlnbj 9nkU5sPn2+ XPAuvEM1cVG2sR0zGlNeNi F9YZkbM274DxCwgBKyVudu w6oav2odtKf3SiZyADMgwv FsaWduPSJ0 r8YsBc27S1ZoxMlzy2RoAo j2gk17bZRut1L4vKZ9J7Zu JWKahtezoQSiqXzkOM1kLT BpbjtwYWRk pL5sOHJgT2q7ZkNzLrW1AW juP1MxozW0ENXxdLAsLLVg jCUMaG0vofcmi5fwzexvOv AwMDAwMDt0 JWj5PNHxpFzeGyBzNFN6Cl H5OUV3zLFppF0zwCjersmj tR3wPvo+BHc5w7voaDQdXW 0jwCH6NW35 RQ99vEXic0D7hPR1Q9DxFO GmxiccarjnoBP3RWJvYVVb sS17Zb6auVrhRw5iFHStKB M5JJYviCXh K2BbzV1mWdTeBFUhXIFfF2 KjwPWvCProV443FEnoVeD1 TVImarBdA3KuUXFixKwbQj Z0k8G7Mi9J OL47MK69CN20gQYwo5H2qY G1A7CgDBXeqztmrtbasQF3 JCJoRDTdrB30Oj7maWvgIn 0aBZRyRVL7 WVHycYVrO2XbkV6uDlSaLP LgQDQoR3IyhRSmHKmuR609 IBnmUyK5LHUcysEdA5DbMF FsaWduOiB0 v5L3Zw5RQt96FF90FN51wV Hso1B6ePH4H0LmQSGmfkfo avtxmLB0RZBuPFUbvV64Re 3gzGcjUm3u SKOmYRD0CMHjcWRwR1EjpU 6zHjPjNBOcULAlU8CceQEl XYvgW417WOqwOfF1ZRRijg TnY2TcXXHd dBnpEqF3z1N2Nh9DHDydzz z1K4SwLhedbPL+CT01ABVt IV14pLYkzCOsr6udnRy5Cr EwMCUnIHN0 eWxl (more content not included)... Normal [facility] Consent for Procedure/Surger yon 02-09-2022 Consent for Procedure/Surgery [id number]#1 .[id number]:127 Normal [facility] Cardiovascular Reporton Cardiovascular Report [id number]#1. 00CD:127 Normal [facility] Consent for Treatmenton Consent for Treatment [id number]#1.0 0CD:127 Normal [facility] Inpatient Clinical Summaryon 02-05-2022 Inpatient Clinical Summary [place] [id number] Clinical Summary Person Information: Name: LORENA CAMPOS Age: 66 Years : 1955 Sex: Male PCP: BEENA BENÍTEZ MD Marital Status: Phone: [phone] Race: White Ethnicity: Non- or Language: South Korean Visit Id: Visit Reason: R94.39 R07.9, I25.10 Speciality: Acuity: Enc Type: Ambulatory/Same Day Surgery Med Service: Surgery Arrival: 02/05/2022 06:31:58 Discharge: Dispo Type: Address: [address] [place] [address] [phone] Provider Notes: Diagnosis: Problems Active Hypertension Acid [...] Follow up: With: Address: When: Kushal Page [address] [place] [id number] [phone] Business (1) 03/09/2022 11:15 AM Type Location Start [facility] Cardiology Follow Up (FT) [facility] 03/09/2022 11:15 AM 03/09/2022 11:30 AM Confirmed Patient Education Information: CV - Cardiovascular Discharge Instructions (CUSTOM) Normal [facility] Inpatient Patient Summaryon 02-05-2022 Inpatient Patient Summary [address] [address] Patient Discharge Instructions PERSON INFORMATION Name: LORENA [...] Follow up: With: Address: When: Kushal Page [address] [place] [address] [place] [address] [phone] [facility] (1) 03/09/2022 11:15 AM In the event that this physician does not participate in your insurance network, please consult with your insurance company to find a nearby participating provider. Type Location [facility] 11:15 AM 03/09/2022 11:30 AM Confirmed Comment: IBETH STEVEN L, have received the attached patient [...] 2 ti (more content not included)... Normal [facility] Operative Reporton 2 Operative Report SURGERY DATE: [...] an exchange length J-wire. Next a 4 [place] Islander sheath was placed without complications and flushed with Heparinized Saline. Next a 4 [place] JL5 catheter was easily engaged into the [...] exchanged over a wire for a 4 [place] 3DRC catheter. This was easily engaged into [...] exchanged over a wire for a 4 [place] angled pigtail catheter. This is easily engaged [...] . Kushal Page M.D. kendra Dictated: 02/05/2022 [id number] Transcribed: 02/05/2022 [facility] Comment on above: Result Comment: Elec tronically Signed By: Camilo STARK, Kushal Galarza\.br\Date and Time Signed: 02/05/22 13:41 EDT Patient Education - Texton 0 02-05-2022 Patient Education - Text [place], [place] CARDIOVASCULAR DISCHARGE INSTRUCTIONS Diet: ? Resume [...] you are interested in smoking cessation, contact [facility] at [phone], ext. [phone]. ? In the event you are unable to reach your physician, please call Robert at [phone] and the washer and capper machine operator will assist you. Seek Immediate Medical Care for: ? Bleeding: Apply continuous pressure to the site and Call 911. ? Should the arm or leg become cold, numb, blue or white call your physician immediately. ? Signs of infection are redness, warmth, swelling, increased tenderness, colored drainage, fever or chills ? Chest pain ? Normal [facility] Coding Summary.on 02-03-2022 Coding Summary. [id number] Gh 0bWw+PGhlYWQ+YM5LRUVnI 69unIGosU3FM5kTVE4PWFH SQDWVNA1SVY7dlBP3AAteJ 2VybiAv PsvicVEjLU58FTi5XKK7cX uwETqqoU5tsLWeX0q5CmRk FC65xV70XMkqDDCjXlX7Tn ZpbjsgbWFy V7zcHnIsjXAdVqg+PHRhYm xlIHdpZHRoPScxMDAlJyBz pLtlZM7xQc0mZFWgLDZesR xhcHNlOiBj g8fwJCTiMIqoTI1tdZpfP9 XjrCU3MRAgs7p9Tn43sBC+ CEBlEVP3vGvgTZaoa309Xi Mut8taUDT3 iOAtYBsdNBB3R39bw0W1AO IyTGOfFWO4bEZ1kU7vjJdw vsyxM6KswIWrNqS5VUT3xC NyxP1khJvh sdikeA7sYje+O21VQQ5XKN IFKH3SNrs4O2EcTkrodOI+ UY24CYCbFD19rAAdhWFpb1 vgqPr8VzPa EIXhEIU2kSlqSKybx4JfIB LwZ93mzBKdn8O8DVJgtFgv gFInTrDieYK6sH2uXJwwdh mkd3bbvzrx Zxwlm9gbpp26yM65X75oLG riSKTmOSJ9WORpSZLobPao ye8gvJ5kMk1+RIdcb7aod3 qohXq0SwTx TZSzfxZpnGacDRS1l5MpUu 22E1JdoTynu3DoTwj2ma97 iJTnn2I4bRR5WOgtDNTmoI 6wSJduQaW7 OZMwArHqzF18jWHqDLxgRb 9txUlfsMfuKJ9zAKZgmcyg DMOikQ3fNAZpwGVlyJfvUS 4wNTBpbjtm f235SpAzGDO6NMAkrXJbO9 JweY9xNtLwNFQnWEIsO7Te iERgWDqqI643XFdsAhO0LI MdedGsD1Ig JWSztDlnWrJ6k0X1Cs1Fn9 XpfgswPEP4RQuaFMC4TzW4 YrZiTvL0T7CeBof0FIRrtL vvJX0xN8Bn CQEwphfedxifpRV5TIFrQX OpwD30kMSbYCqkSz5dk8W2 v817LXOfFCWxfU86Na7qoJ ogMTBwdCBU uP3odavuj2adjvbxZoLeYK LdIIy9ZEo0DFQvrRywOvFn CNY7KnP8BUM3rTQamJ5woI yrvwfzsB6o Oyc+B16ubN4dHGZ9BIO4el ukICFewsMcTU04KY69Z6Nc PjwvdGFibGU+PGRpdiBzdH lhAN0tHtLm t5saw1EwHSdyQ8DkVQZeJY woHix3LQGeFNF0kYO4kN2v MUIiPNuwx8L3vAK0Y7Fhzd Xdbu2mx3ci ICJuGJquW13ocYErb1K8PS VikKJ3NONkxWbfKpIzjZ47 Oyc+GDWhhQgwq5VxXqjwd9 fcq4kadFm6 DlVoWJCmpyBqdBotLNG4v8 RvXk10Z25mJKmwGDYjJEEp IUMrIIZeuIjuhi6ewS3aDt 8+PGNvbCB3 kWX8yZ8wVTAoYaW2TEgfP0 02HjEjkNJrSgjic9mqv1cr jUg8SuGrDSWtxpMjmTmeMZ J5a0KsLl48 S51aJIyyUFJvDEKoDWQmGK NtgSzzfk7ryC9tMo2+PC9j n7bfjk17cV82eTC+PHRkIH K2mOrkNZbm XWPwzA3oULswDyR2ANReZa CqiD27bWYpIPaiDn3auTdp tEwcGA9fNUWvsknow316Ds Mhd8jqZFQq xHSuPHvwMYJ1T41zt0Z6DW GvLZLrXHI2mPL6lH3ftRht bjogbGVmdDsgdmVydGljYW cyKGqsI752 IHRvcDsnPlBhdGllbnQgTm FbZGs1W0MlAeb6WPIaxBuu AE1paNNeWKikFc1ziCdkgE vkHQ2fFNUd nepce177SrGqt4xbPHXddQ ZyNXrrHXZ9E26nc9M2FRNq SSFdITI7vPR1wE0tqJiwlt ogbGVmdDsg ajAwuAgnFKjvDMxtJ117YQ RvcDsnPkJpcnRoIERhdGU6 FG72WS62bGTgr5I9eLF8O3 BhZGRpbmct dspzyFO3JXOlOWIcjK50Jj 7pyFkaMg9pFNNkRMK9YHMn iBKxX0UnrF5xCtNmISQiHI AlD1WmuNUi OIvuM127BCqkGxR8SYRvzp QoO6OmPJMlcTkeQbJ5x8M0 Oh9IX3N8WQ82MR26cCQej8 A0iOV5A8Li DDNwmqokoytmjOM5CJHgBY UmvX86Jv3nkAfqJm3dVOYe FVI8GMGvbULxD9HbkN7lLm AjMDAwMDAw Q4HyeLXzLHjeE782UYkwCj T0QAUdfgAsU1UnYLGldQvb QiQ5d0X8Yd5QWBp8JE74BT 50pGFhd2X2 xHT5N1OfICIjqbdyrwgkbW H2VSDtBBZsgZ43Tc7idNor Gw8xOOAjKXS1GSEauIFrE5 FiaY1dFgHn HEEkMMJuV0HmrQJnNVjcP9 27WOllPjH9TNPyfqLbL8Aq RSWwnKsqBwQ9n4C3Nu4XYH AnBM02RIZ6 gTY8EC72FI88F7YyXxlvoR FibGU+PHRhYmxlIHdpZHRo RSmyIPVsFmVjxSzwCW6hVy 9yZGVyLWNv oLzlzRYiTqWob5xvOTByRI lxJP8liUdgJ2YfkLA7XRKu k1m4Ep76B06mA1ErlWE+PG MlyRF7qMT9 zC4eEnXwEvG8JQhzG747Xx LfhKFeNfpkv7owq3hunKa8 TrE5IGPiouXscNcmRXI2w3 GhEi64T26q IHdpZHRoPSIxNSUiIHZhbG hgid5hvR5xAg2+PGNvbCB3 vTT6cU9bNnMeOyD4KXgiS2 49InRvcCIv Kppnc2wxu2wxiTh1DeIrKY NyeyEctFpuASO5q7HyJv77 E1JdlZgdw8MpLtz0iu62wW Fhw1W5nGK5 P9XgHEVbwwkovWFskEbuWT 7eZKLuihkoOXUcxL9cMTIj D2i2VpZkOqS5NKmeT7Buld M2FKOulKQj XAgxZBT6I77pz5E8FAXzHI RxPEQ9jTM8sJ7siJbibark bGVmdDsgdmVydGljYWwtYW ebH606DDQq eUqrPWKeoG1lDUDxiFJsgC ghEY5nFXRhdnxiGcOZFmIT QhrhJLZNYEEPCfWNZY74ZC 31iICdv5T0 vGL8W3RuVATdsndspisqaQ M5ZUUwEDIsgO19yKFbYXxi Gm2ky2K3r133JLVmFCSmxA 58Kt9bwIhi CNLffPTXrL6vawrbk4hodm xzOmBjQXAyLDw4KOs7IRVx gCghEpOtESR9HoI5VEM8wU IwnX2cdZpf elykbP2uGvo+MDUvMTEvMT n9JJqmeDW+JRXqHPR5xVhd UOuvVAXhlE5mEQCmB8o5Gu OeTlO4PNcp M5FeSKVawbwmWp74uQ9gZb TaVgM9KDdlZ8WvyyK4SWEw mVEpWMooQNZ2F93wr5P1NN MwMDAwMDA7 rOW1yU7pxRwupixkcMTclO bgdzXnnCviSZygCVnpC062 TQZozUrwTmZ1WUatAAZhDQ 76LH55jJLy t5R8tNE8O2KiJACzdqxobq sqrJV6TVIbZYXpmT12vEYq MOujSl9ej1K3w825DIQtNX MveZ82Vt1t zCgqMFRdvFUPlX2jlwfvc8 rjefzoKjTzXFRiSXj5CNe8 HOXlrCfpGxEaXAD0RtW6ET Z6kCDxzN5f kGopwzjdkV1qVee+TWFsZT wvdGQ+SFZcDTB7zXbwVXsf XOAykC9gICNeG5r8LaIwMk M4KXecJ2Lx OFAwpwlvDp22bU7bRsGtCs N8PXtyM3JmqaK7IZYxsMCb UMopGCJ0M49et0K5MXHvNV QiRIU5wBU6 vO2reMpxzllthHFcfRmeey AqnPwnTDvlOSnlJ674MHIs pKiqEv78mWWarQknqkZ6I5 RkPjwvdHI+ DK85MVUmQM16lBQfsLQwq7 fneAy4BcWiQMQfSMS5xFyj YOesw5JoTGQaW68ojKVyq3 D3CVXgmBhn pTZjUyFklHK1kU2bYMcrbb jdo4rznmfaFvlmq1wrve83 vS89U55sWGzwGAAfRVVgVQ UiIHZhbGln eb7irF1dCb6+DMPewGU3aK C5oV9uTkWpPdB0CEttR480 DqWwkLFpZcywv8spd0zweP b3DeMuXDRt zpOsbYhkZKE2n0IvWt63U9 9sIHdpZHRoPSIyMCUiIHZh cDpdqx0juH4lNa0+PC9jb2 qgpa62oO83 dHI+FGXiYNF0xFkwCGzlFR BejF3lDGguUrT5WQMzZkBe bO88iWCtBGmaFj6tpSqamU juXG2rMHZb ogvtk783IlAou4rlQXHcoW BxBFubUKT3T35xe9V9RPLf MYVdBYS9kVW0kL5lwCdcee ogbGVmdDsg iiUqwMaeDCrfOQggI148OZ VqxDejXmYltLInQ1jldiIR OF7rIpwteLA+GOAuFWK9gD xlPSdwYWRk rU3zYAOjV4o4SnCoJfG3BG inI8WvmkR2OPYslDAcJSSj gNCHfS4moocfn2bqcoiyZh AwMDAwMDt0 FOv7TZBytCsmXuVdUDM0Md U4KPA4bPBkyO3tzRyowrps vY7mZmi+RklOOjwvdGQ+PH LuYTS9gPzl FQznCNUfaD1tSULbZ9b8Er OsRfC4LDglH9YkpwV3IDCy aCOpLBJgqHXDgO4ryhfji5 xvcjogIzAw BCXgRDb1DVv7GUUdeYrwRb AkSAA4XfV5COJ8gYIqjZ2i rPxgyruiqG9hQnf+TVJOOj wvdGQ+PHRk OON8tVmbYBvhBTRbrS0uTE EfN4u3BjRvEdU6AShaY6Xe sbY2XIWsoJWeNSYfbMVObI 8aykigo0gq bzocHaEsDOUxZVq1SFj8ZW IutXewLbJyFWO4JzA6ZTR1 aHHtwY2mlIielbmjmJ6wDr c+FFC4DGO7 SL39FU54P9LxCqmefIKffS U+PHRhYmxlIHdpZHRoPScx VVLeImCyxVkaIQ4mIb7lRO VyLWNvbGxh cHNl (more content not included)... Normal [facility] Outside Recordson 01-29-2022 Outside Records [id number]#1. [id number]:127 Normal [facility] Auto Diffon 01-28-2022 Basophils/100 WBC (Bld) 1.0 % Normal 0.0-2.0 [facility] Comment on above: Order Comment: Order Added by Discern Expert. Performed By: #### 2 885314, 0870254, 7102379, [id number] ####[facility] [address] [place] [address] Basophils/Leukocytes Auto (Bld) [Pure # fraction] 0.0 E9/L Normal 0.0-0.2 [facility] Comment on above: Order Comment: Order Added by Discern Expert. Performed By: #### 2 725116, 7877457, 0637622, 53221235 ####[facility] [address] [place] [address] Eosinophils/100 WBC (Bld) 3.9 % Normal 0.0-8.0 [facility] Comment on above: Order Comment: Order Added by Discern Expert. Performed By: #### 2 649795, 1484207, 3458166, 98192657 ####[facility] [address] [place] [address] Eosinophils/Leukocyte s Auto (Bld) [Pure # fraction] 0.2 E9/L Normal 0.0-0.5 [facility] Comment on above: Order Comment: Order Added by Luis Expert. Performed By: #### 2 118185, 3341621, 1748199, 23799416 ####[facility] [address] [place] [address] Lymphocytes/100 WBC (Bld) 27.4 % Normal 14.0-50.0 [facility] Comment on above: Order Comment: Order Added by Discern Expert. Performed By: #### 2 239745, 7812879, 5039039, 69077836 ####[facility] [address] [place] [address] Lymphocytes/Leukocyte s Auto (Bld) [Pure # fraction] 1.3 E9/L Normal 1.0-4.0 [facility] Comment on above: Order Comment: Order Added by Luis Expert. Performed By: #### 2 831395, 3044687, 4910872, [id number] ####[address] [address] Monocytes/100 WBC (Bld) 8.1 % Normal 4.0-14.0 [facility] Comment on above: Order Comment: Order Added by Luis Expert. Performed By: #### 2 925845, 1596708, 9693646, 63328583 ####[facility] [address] [place] [address] Monocytes/Leukocytes Auto (Bld) [Pure # fraction] 0.4 E9/L Normal 0.2-1.0 [facility] Comment on above: Order Comment: Order Added by Luis Expert. Performed By: #### 2 170175, 0956118, 3884678, 53309073 ####[facility] [address] [place] [address] Neutrophils/100 WBC (Bld) 59.6 % Normal 36.0-75.0 [facility] Comment on above: Order Comment: Order Added by Luis Expert. Performed By: #### 2 193269, 3678418, 4077082, 56397801 ####[facility] [address] [place] [address] Neutrophils/Leukocyte s Auto (Bld) [Pure # fraction] 2.9 E9/L Normal 2.0-7.5 [facility] Comment on above: Order Comment: Order Added by Discern Expert. Performed By: #### 2 740630, 1084675, 6359050, 05902082 ####[facility] [address] [place] [address] BMPon 01-28-2022 Anion gap [Moles/Vol] 15 mmol/L Normal 6-16 [facility] Comment on above: Performed By: #### 2 884065, 9393151, 1770620, 12081127 ####[facility] [address] [place] [address] Calcium [Mass/Vol] 9.2 mg/dL Normal 8.9-11.1 [facility] Comment on above: Performed By: #### 2 962625, 3316620, 9661810, 10976737 ####[facility] [address] [place] [address] Chloride [Moles/Vol] 100 mmol/L Low 101-111 [facility] Comment on above: Performed By: #### 2 456229, 0568278, 3123384, 36601016 ####[facility] [address] [place] [address] CO2 [Moles/Vol] 24 mmol/L Normal 21-31 [facility] Comment on above: Performed By: #### 2 512556, 2378306, 0307931, 07682867 ####[facility] [address] [place] [address] Creatinine [Mass/Vol] 0.8 mg/dL Normal 0.5-1.3 [facility] Comment on above: Performed By: #### 2 258936, 0626650, 6845032, 59484695 ####[facility] [address] [place] [address] Glucose [Mass/Vol] 260 mg/dL High 55-199 [facility] Comment on above: Result Comment: If t his glucose result represents a fasting glucose, interpretation should refer to the following reference range: 55-99 mg/dL Performed By: #### 2 489346, 7287831, 7660060, 06096027 ####[facility] [address] [place] [address] Potassium [Moles/Vol] 4.4 mmol/L Normal 3.5-5.3 [facility] Comment on above: Performed By: #### 2 578476, 4623286, 8615734, 16242733 ####[facility] [address] [place] [address] Sodium [Moles/Vol] 135 mmol/L Normal 135-145 [facility] Comment on above: Performed By: #### 2 961363, 6855812, 0365732, 94185895 ####[facility] [address] [place] [address] Urea nitrogen [Mass/Vol] 13 mg/dL Normal 5-21 [facility] Comment on above: Performed By: #### 2 123817, 5334357, 2594435, 10880497 ####[facility] [address] [place] [address] Urea nitrogen/Creatinine [Mass ratio] 16 No Units Normal 10-20 [facility] Comment on above: Performed By: #### 2 155453, 4482357, 3353659, 67833010 ####[facility] [address] [place] [address] CBC w/ Auto Diffon 2 Erythrocyte distribution width (RBC) [Ratio] 13.9 % Normal 10.9-14.2 [facility] Comment on above: Performed By: #### 2 172687, 2298643, 7830501, 03501912 ####[facility] [address] [place] [address] Hematocrit (Bld) [Volume fraction] 39.6 % Normal 37.7-49.0 [facility] Comment on above: Performed By: #### 2 571262, 1604632, 3349373, 34361676 ####[facility] [address] [place] [address] Hemoglobin (Bld) [Mass/Vol] 13.5 g/dL Normal 13.5-17.5 [facility] Comment on above: Performed By: #### 2 146827, 6986144, 2887358, 27032619 ####[address] [address] MCH (RBC) [Entitic mass] 30.7 pg Normal 27.0-34.0 [facility] Comment on above: Performed By: #### 2 242506, 2314428, 5601067, 38457192 ####[place] [address]957 MCHC (RBC) [Mass/Vol] 34.2 g/dL Normal 31.4-36.0 [facility] Comment on above: Performed By: #### 2 864820, 9913249, 0077199, 02643034 ####[address] [address] MCV (RBC) [Entitic vol] 89.7 fL Normal 80.0-100.0 [facility] Comment on above: Performed By: #### 2 377433, 0645465, 8794356, 77205402 ####[address] [address] Platelet mean volume (Bld) [Entitic vol] 8.9 fL Normal 6.4-10.8 [facility] Comment on above: Performed By: #### 2 665712, 3181256, 9873962, 18341601 ####[address] [address] Platelets (Bld) [#/Vol] 153.0 E9/L Normal 150.0-500.0 [facility] Comment on above: Performed By: #### 2 303241, 8025229, 6543778, 07197384 ####[address] [address] RBC (Bld) [#/Vol] 4.4 E12/L Normal 4.3-5.9 [facility] Comment on above: Performed By: #### 2 430573, 2847829, 5915749, 51540643 ####[facility] [address] [place] [address] WBC corrected for nucl RBC Auto (Bld) [#/Vol] 4.9 E9/L Normal 4.0-11.0 [facility] Comment on above: Performed By: #### 2 945842, 1938365, 3380412, 59528709 ####[facility] [address] [place] [address] CHEMISTRYOrdered By: SYSTEM SYSTEM on 01-28-2022 Anion gap [Moles/Vol] 15 mmol/L Normal 6 - 16 mEq/L F [facility] Remisol Calcium [Mass/Vol] 9.2 mg/dL Normal 8.9 - 11. 1 mg/dL [facility] Chloride [Moles/Vol] 100 mmol/L Low 101 - 1 11 mmol/L [facility] CO2 [Moles/Vol] 24 mmol/L Normal 21 - 31 mmol/L [facility] Creatinine [Mass/Vol] 0.8 mg/dL Normal 0.5 - 1.3 mg/dL [facility] GFR/1.73 sq M.predicted among blacks MDRD (S/P/Bld) [Vol rate/Area] mL/min/1.73 m2 Normal >=59mL/min/1. 73 m2 [facility] Chem S GFR/1.73 sq M.predicted among non-blacks MDRD (S/P/Bld) [Vol rate/Area] mL/min/1.73 m2 Normal >=59mL/min/1. 73 m2 [facility] Chem S Glucose [Mass/Vol] 260 mg/dL High [...] [facility] Coding Summary.on 01-28-2022 Coding Summary. [id number] Gh 0bWw+PGhlYWQ+FZ7BXIJeO 23zoUUhnE5DY3zDPJ6ZTSB OZVEZVV5FMO4dbNQ5TLraU 2VybiAv VrabkYWnTN23MKr7ZUA0oO riJZkstO0kpPAsZ9x4ByOv AE61gN57XSunSZZrAkH8Lc ZpbjsgbWFy S3tbDgUnkMVpPjq+PHRhYm xlIHdpZHRoPScxMDAlJyBz iQsnYR0dHf5kCOUsYQWuzF xhcHNlOiBj u7yeNAWaPIdlHQ1ppPiqQ0 FnrUL7XZDxr8x2Vn07iCS+ QKHcUID5vDyrOQswk856Cp Yxs9yaRPB9 gWOvVCwsLPO6S95kz0D3OK OmPQLkSOJ6uJU6wO4wcUkz iaqqG1UnaGNrEpF0AUL1uX LiiV9guUxr ulikyP0iJui+V80SYD0JHR GSXC2BFeh5S1FoHajojGG+ KV13HGIxSI98dHEgxZZqr7 caoSf7VeHu CYHrTRA0mZttGGsiy4NmGH QwK53jnMQbh9Z7UTRazIgh fXIwZfQgxCE7bP2vPWdwhe xxw7kixttk Omjax3kiih89dA49Q54fYE hhXGOsRUG8GUQpZZLmtPtp he4gqN1wVu4+WHznh7caz2 zkqVi3KgJg FQQjshThbZowGZA5w1HeOx 97V0MyeEifn1JiXjn6zs13 oSRtc3R6hZY2OEocDCNygU 8rWXghVwT9 UPPcEvEgfD99nKKvYNxxPk 1wtRialMpkRK2tGYNgyybp ZPRjfW8bPGRcqHPtaZuuQA 4wNTBpbjtm w186WqDqDAL0AYQhsQTdU1 CctL5vJfFcGSQdDZMmR5Td yDEuZBnoZ462YOddErN8XF MzxwTsO1Le YSCmdCzbJtT5f3G7Lj6Fd4 KfdejxDOR9UKwuUNX6LeWr BqAyJxP0E1InEvr4QQWqeE seNJ4aW7Ve JGJvkgdcsptpdCQ0RUZoXQ MddY78gAKoVIanEe0ef3R1 l621XOOdRILmsN39Vr9wmE ogMTBwdCBU fZ2hpzlhr5nkniecRgTrUA DuEMy1NWq1CJNohRhgVnDu WER6FpM2RBC7bWOnsJ2zfQ ltovaigA2k Oyc+D45fwT8kSVA5IXM6ba esBHTlwiCiGK60VG64D0Cm PjwvdGFibGU+PGRpdiBzdH spZT5xYoXw a5pwo0UdVGtoU9TvSIFoBP rwXza1YPXjYBU9qCH0sH0j KXGaDLner0W6gRT6H4Sxfb Ouzc8im1rv LIQaJRlwF80exZBsp8X3MJ ViqWH4IRAmkOkbZuYkmK47 Oyc+HUYqsCtti9VkSeqer5 dee8lwmLr8 GyJwENVypkNjmIeuNDC2k2 MwHz82Z18cHEtwZDAbFRJw BQUgXTXobBnxpd7jfD9zSw 8+PGNvbCB3 fCH5xU1dFBNlPyT9HVedN3 55OeSrlAGfMisdx1sro8ce pPc7FdFpDNAmtcAtgYotXB A5u4XvOi20 F31uCZugSKXtLZWkLUWrIN NwbAtxne6plR0vRs9+PC9j h4pbnz10xX27sTE+PHRkIH M7fQovIRci WWBlwM6oEHbcUyM5QZKmOu HziS93cYKlHZegHw7onDbv qUsuVP9pXAPmxeuvj035Jp Mlm8xjOMRt hUIrLGjwEPU1D03um3F2QL PzZXPpERH0yVH5xN3dmMsp bjogbGVmdDsgdmVydGljYW trADeuD491 IHRvcDsnPlBhdGllbnQgTm HuMUp9P9MnJiu5SYHwlBcd LB1jtBTzTRvzJr8nvFvwmS wiQW7lXVBw wtdyv950SuFsb4fuUMJggE XlLRsyAWW2R58tv2M3ZIZh ZKJkVOX5gTU2bM0tpQfcoq ogbGVmdDsg uxHobQzxDZxnFFooT870WI RvcDsnPkJpcnRoIERhdGU6 AS51YD19gDFzm1R0mNI7B3 BhZGRpbmct nbjodFG2TTKqJAPqlN78Lk 2otWtmMc3yAWPaPXN3WHAq sVLhZ8IutD4sOjNjYJUvZA IzS8UtmFDi FYkoT134NOheGiO8HLCqxe ExD3NqSZNzwKwaVwH6b6V6 Xs0HH3Y3OF86IG72pHMab2 X6hAS0Q1Sv GEZfanpixqrwoRI4CHBhKP GtiE08Pd6qnPuiPx0vQKZd TCU6HRDkuBBaU5UjjC2dBe AjMDAwMDAw Y1NqnLOcWKujL059HKjoLk E1LLHbapSpB9TqQPMljXbx VhS1d5T5Eh1KDLi4RY41UU 11cGNgb1Y5 eJP5J4PlOFGgwpjnviyudU I3FTOxDHMmdJ82Zk4yyDxv Zh5gNMTxPDP7XRQdcRKuQ9 XocL5oKlKu LDPaVBMyG9EtdBMjKBxhC6 70JUovZnA2IUQhjlRcC6Ys CVVykDjcTbI2e3Z8Zf6ZBR ItAE12UED1 bGB3GS87VX73I8IcRgeukW FibGU+PHRhYmxlIHdpZHRo SBwmFETkSyLciQzvRR1rWv 9yZGVyLWNv nSzdpWTaJjKxz9mkVWEiYT snYS8frHqeB8BcnND4KVHq a0m9Uv53K89aM1PigCW+PG IbkSL8iGE8 nL2aXjHjQwQ7MDopF058Wo FffVThOvaxx6ire7jgnLr8 PgW1DBYejmQpgJorWRY4c1 JkIm46P99b IHdpZHRoPSIxNSUiIHZhbG pken1ymK0vPo2+PGNvbCB3 wJT1dC9fBhMxJvN1WXdiE4 49InRvcCIv Zwzjf7jit8vnxGu8FsKeKW PoijEabQuoHLN1t2TjUd94 Q8VqfZacz2RlDep4tu63qB Wbp5W9wDK0 T1AcMEWaszhjxRZspGoyPZ 9wUXClglqeQVPrsD5cVISu X2v5EdVmBmX5NYdvI2Hgya S5YCGhzDEh UOtvOAS6S24rk1B7YZYxGI LjMZD4kLA6oW7kaBeeerad bGVmdDsgdmVydGljYWwtYW xsQ724FMSq dLxwIIEsfA2lDBTdrULtjU xbVN1eWPFgfnulPrHMTsIR OnobVAONPYOCFiCGWU34EX 73pBLvg9W0 cNF3N4HeTZCphpdeslhbkW T4GOVoKHUwaW24rMOpGXhd Lq0ui3I0e828BHJuJQNmfM 99Mc7crBmd MJDanWVGpH6kyzqeb6diky foPzKrDWOuJRc8CRc0SIJm kSmaOaXwPQC8YeW3WRK3qH PffX8wlGfd sengzM6rHma+MDUvMTEvMT z5QOuptVO+VLMsXZW0cThg FSmzFJRcoX0nHBYcI1a6Hk MkDtO2JOns Y0ThATRcglpiXn63wP8wWf CaJgF8XAzxT9YnczA8OOFm xUKyKTpxWRW1O37mp2X8TM MwMDAwMDA7 xRQ7eP4zqZqihxemiGCqaV zqhbRnlGogAFqfFCapF660 ERTlpBwoNpM6APgeLKMuMJ 73PY34uMMu k7Y4sUX7E5BtGYArhlsoxx omkDO4QXIvDYQvpP30zSCy DXylUj1hr3U9k832IGJhAG QagO86Ns4n oSsoYENmuRJLzL3pkawut9 lhpskdDeCnZDYpEIr1QNr9 IPGblKywImDmINH5WxM5GF M8aCYblA7p jVaswqotsA1fHaq+TWFsZT wvdGQ+NYAiUJD4gAagQSzh SNEjoG3oAXXsO3u3IsZcSp E4IPygZ8Cz CDUwzjzzPh30vZ6sGsDjPu B1QUxrM3IapsR2GOBytCKv OShcPSU7E95xg4X7MNPaLA ToERI6cIE1 vZ8oiVskcbldsSBrgGozry BrfSxtDKcnSCvxE192THWj yWhzWm10rDRfmOyusmP4G8 RkPjwvdHI+ YR05WVVsQX60qDLejZDmb9 xdtZu5MxCtLYJgSSP7jMod UXbhw9KqEXNyF18ceOPob9 H0SQXfxGbd bTHoKvDkvUT9aK9bOEsgtc fts5cuqjvtOfwzb4npuj80 xA31N89bNWzzWCOkKRNgDX UiIHZhbGln av5jaA5tNt0+KDUioVQ9tE W6cF9nAuAcQkG9MVoiB001 BtUeaADpUjsaa5srv2qgvZ i2YnAcZRDj saMphJftOCJ9h0UfFp16L5 9sIHdpZHRoPSIyMCUiIHZh rRvbju1npA0pLi6+PC9jb2 xzed66vH37 dHI+JVIsCIB8iJyxIOkbKT YqzG3yIVlqTqA7WWWaJnJn dY29mRMzOXbsSp3aeBvwaN jwNG1nUHQr lplur320RpLhk9kqVUBazL KfNGjjSIT4S95he5A0FYZg JRXpBPC2ePB4oG2hoXizjk ogbGVmdDsg xaCfpFplQEnwIKnnN675VY TlkZvrHhTiwUWpT1kaypYM LS7sEwkkpVI+LNKaYAZ9pG xlPSdwYWRk kK7xLGLxI9d8TzRpMdY8IF omR9FiiwK1CDNqeTLoMOVj oOZJfD1yulqmn2zuauanHt AwMDAwMDt0 ULz9RGSesJxaQkDdZML5Aa N8AUP0gHUhfD9wsBspzevm dI6bVme+RklOOjwvdGQ+PH ZpLRW9aGry HVwdEJAckG3aSXMqS8m2Pk YyIvJ2LOzgK2PzlsI8YQFe hWElWAXzzXIHfZ3snyrvm8 xvcjogIzAw GKCyRWr3OKw6FHUpnPqsXg DgNMZ5MyF3ENU5yCNlyJ1e lBqmywtunL0vSkb+TVJOOj wvdGQ+PHRk MNR5dHdkSAolXJTaiI1dTQ AxA1g3KxHfGdS3RUinU9Wb uaX6VOMzqXUvFXOawLXDrP 7mmfaon0ly dahgVjMvOBKxTPl4MGs4QW ItfQqwZkNkBDT6YcV3BUZ3 eYRcdS5adXmxwjyscR5bPi c+ZDI8KFE3 UE67OG46Z4KlUrwgaSNhjD U+PHRhYmxlIHdpZHRoPScx YQMcLqEluBgsCY3vJb1kPA VyLWNvbGxh cHNl (more content not included)... Normal [facility] Consent for Treatmenton 12-31 Consent for Treatment [id number]#1.0 0CD:127 Normal [facility] HEMATOLOGYOrdered By: SYSTEM SYSTEM on 01-28-2022 Basophils/100 [...] 153.0 E9/L Normal 150.0 - 500.0 E9/L FT HemeAutoSS RBC (Bld) [#/Vol] 4.4 E12/L Normal 4.3 - 5.9 E12/L FT HemeAutoSS WBC corrected for nucl RBC Auto (Bld) [#/Vol] 4.9 E9/L Normal 4.0 - 11.0 E9/L FT HemeAutoSS eGFRon 01-28-2022 GFR/1.73 sq M.predicted among blacks MDRD (S/P/Bld) [Vol rate/Area] mL/min/{1.73_m2} Normal >=59 [facility] Comment on above: Order Comment: Order added by Discern Expert. Result Comment: eGFR is race adjusted. AA=. Performed By: #### 2 [id number] ####[facility] [id number] [place] [address] GFR/1.73 sq M.predicted among non-blacks MDRD (S/P/Bld) [Vol rate/Area] mL/min/{1.73_m2} Normal >=59 [facility] Comment on above: Order Comment: Order added by Discern Expert. Result Comment: Inventory Control Assistant neil kidney disease could be indicated at eGFR's of less than 60 mL/min/1.73m2. Kidney failure is indicated at less than 15 mL/min/1.73m2. Performed By: #### 2 [id number] ####[facility] [id number] [place] [address] Consent for Procedure/Surger yon 01-27-2022 Consent for Procedure/Surgery [id number]#1.0 0CD:127 Normal [facility] Progress Note-Physicianon Progress Note-Physician [id number]#1.0 0CD:127 Normal [facility] Pre-Certification Formon Pre-Certification Form [id number]#1.0 0CD:127 Normal [facility] Coding Summary.on 01-23-2022 Coding Summary. CD:[id number] Gh 0bWw+PGhlYWQ+LV5LUCYkD 86ekILmbF3GY7cFBU9AVVJ AMIRXNK8CNK1liIS3LJfgN 2VybiAv QesrlHMzOY29IUy7PME4oN mkMLvwtZ1hbQLhO3k3OxJm XX77kH24BWeaHVQaExA5Uy ZpbjsgbWFy B4jcRoGkaXDeDto+PHRhYm xlIHdpZHRoPScxMDAlJyBz uQdwKH3wBp5kCSZiLPPvoL xhcHNlOiBj h8ekHRSlANqvKM6xrGsmJ4 OwdDI8ZIShi6q6Yx86nCQ+ DNMnCPL1tZehMQewx762Bi Fgn4blYQE8 kLYtZHfxXWP8O74dz8Y1QL KvSLToMMU6pNW2wW6zjUjz radoV6BrkIVbDfW0UFF7oV LoaF9evIgz fcaujV9rEpm+R04NQZ1BSL QHOA3WMyd8Q9AsKvogqXE+ PY63YTXzST59iYNcjHHid7 nimMl0JfHy EVMlADK8vBbeVPtop3NyBK FiL23kyTCas5V7CQSzhSuc dJXxDcWmjPP8jL5rCMtpiy isb8odjznl Bfguh6ocxf58fX47R52qNJ rcYGTpWYI9SJVqJDFpqHag mg9gnD6kHc4+OJwtu9faq8 vemGv6UbDf WFWwvuIbjNeiBYA8o2QhLa 14C3HcjKlus6BrQja2en23 wMWkq9E9nFQ6AUalVVDreV 8xJFfxRpI0 BVJyTnFhnI00jGWhGPurRc 7atNgvrUspUM1cJMAvilpo SQRkuU0oPHLvjHGvdYqvRF 4wNTBpbjtm v456WyZsUNE8LWQysAZzC6 FefW4mUiFaZNNxYPNiI8Oy xWNqTWrhZ860SLezEpU2YQ FrgvLrY1Ad ARLsdOriIqP9w5J7Jq3Uu4 BrzfjuPEQ0HTukWJB4QtK6 OgJfKkC5L4UhXhz1OKCrwF kfJN8xB4Vo SYIppizhnbdhjGA0SNZgBI KgmJ65fJVmQWkwUl8nt7U9 k839ITLcGFGmrJ51Zx9cyN ogMTBwdCBU wH5wikawt7jsspvtDeJlWP EgQXm4LFh2QNSfhAxpAbOe BRQ2DxA9TUM2hQIpgP6gnK ehxhknxR8u Oyc+S43jnX2kRZW6MOS5lu slUUAngzPkLB88YQ80G1Tv PjwvdGFibGU+PGRpdiBzdH iaEY7uZzDw m2sgn2YiGBsyE6EnWXBuSC fqHuc3ATLuAHK0fKE5zO9e YBFsTVegj7L8wVK4V5Vhad Ywkz1uw7gn TKQmPNfdH72mvNArj8C9VA RxfND7JUVphXxuZwNajH67 Oyc+QZIxqUrhh9DrKkszq6 xke2msiTf1 DiNiEFDsfmSxgShrIEV9k5 CtLd51T95qQKqbFZScUQRt YGJhZHVfbQywkd7epF7hXf 8+PGNvbCB3 pXU3pV7fXGBoHuA7WBpvA8 14EnQqiYBuUiucr7xxi9zq jBv1HgRzEBKgveFmhZhuAV L9c9PjFz03 J54yVCrfDXQhDTHgGINqQK JzeLwhyr0mdV3mXw0+PC9j l5vlgu29zJ57tAK+PHRkIH Y9dBlyAPxv VGDbuM8sZSrkUdN8FRZdEy VsiY03mOSlCPrhRn8bvJvk qYryKQ9wUFUkezknc337Xe Qnd7puRQOg lCZvDPleCSP2Y22bc2B5OE LlIOQwGCQ4uSH4iD8rfTcg bjogbGVmdDsgdmVydGljYW seMYniU668 IHRvcDsnPlBhdGllbnQgTm GdVOa6D0QfUxe2QIPxyMoq DI1uwFSbHLhkFf8oyTinpB wkWV4wFHYz xhhot751QlPrp1xbQBBvrB RhYTbvBLL7P30rx9C8ZFLl BNPqINQ4oLG8oQ3uaVtqup ogbGVmdDsg cbZsyNogVMqfEWzpI803MZ RvcDsnPkJpcnRoIERhdGU6 GI57BX47nDChj5S4oJI0Q9 BhZGRpbmct jicyrVX8TZLhYIEasG60En 6kwKifSe9lIFDcZRD7OZPm iVUaX9EktQ2xDkRfKQMvQO UeH2VwcCOf KFhjA167ZPjlQcD8LJXmoo SxO8NcFVNgvKxvOqS4z2W4 Pq0AT9F5HT31MA34xFFyt1 H7tGR1J9Mo UBUfvkiiridacKV1ZUNjLW CteN48Fp0ahHpwDl5hVTLf GLI3TQYuuTGeA2GsfR9gHz AjMDAwMDAw C2HjxKJvCJyeF559JKufCm B7OCZpmuBsF8AtNKNvgGvo UiP6h1M3Em3CUCb8AE61MQ 74oFJbi7U6 hTZ9U7CrHQVmlyrhrcjajH O0QWFsZRZfkM55Fb4rjRhw On7sNYPlNCE3AVKttQNyU8 RrhP0iHyZt WWMcDVIyL2WtlUQaWTqkL1 74VYwfOvO1CESvdbZrX8Mx EVBqdPguFfV9c3A2Gy7XYO HsGN30ENK2 gUY7GX13ZP07S2WrWnkzhQ FibGU+PHRhYmxlIHdpZHRo XQiqIFFlLeIfwByuQG7tKh 9yZGVyLWNv jCeewFQpNyBvd9whDLRxEE dhLK6huPjeT6ZcbPC5HUMd q2j0Vi25Y92dP7BxpIK+PG GdiQE7nHX1 hQ7uLgBxRcD3IKljD220Dv HmiHMsWnsoa6fox0xbaXq8 ZeX9MOPhseQfsLmjLCD2s6 YuBh35O43e IHdpZHRoPSIxNSUiIHZhbG irdb3ccP9yPy0+PGNvbCB3 lIV4iU3pPkTcVpI0JZsoP8 49InRvcCIv Pipla2mnf4xlfIa5FaGyCP LlklCvkVoyVDC2n1GaDh65 R6TzrRxhr0TrEfs0up97xE Iai3W4fDX1 D8FwTVFtbmhwgSRxcLpjGT 1eYVIvbxzyQCZqeG7nWXFh Y3z2VqIjBiU6OMvyG8Wyhm K4FOFklTBw UZszDQY9F93ct4D4KDVdZC CmSZH8wPP7hJ5ckXqaydth bGVmdDsgdmVydGljYWwtYW dfY686BOXj rTgeSIPrjL5rRGEdxBEvfP nyHS6hUQEuvcvrVjWPEyCY AhuwNFOAGHWFGnFKUS56UM 33kFXos1H3 oEW0L2YoQIZgzbqusurpyO C0ZTRtXBStaK50rQImYZxp Id1gu8E7f881KNAnNIToaG 12Ze8mwEhw YCMsxSRUoY1uxzklt5mcac bkUdZmWGKaGMp2MYc2PDIc aLgnChRtBFV3XyX4CCI7vD TauZ5hhEgk krxlxT8rJtm+MDUvMTEvMT h8WQbaiYM+PXCcXGD5cOyx MMnuEIKnmT1iSZPlH5d3Ki ZeCeN5GLmm Z1GqDPHympnaLp17gN5fFb FrWtX1VJrvE0QdufV5IYYj iOKiAWaiQTG2S21wa5M2HR MwMDAwMDA7 bQW6cD7maCgmbhorcOKphJ cnaxLoiZpeFBygIUjpV273 PZYhxFdpXxV3GNkjPRHmEU 48TU94rLEt p6E3nKV9M7SkUFPjkdrajj penWM3ZABrPHCpkJ49bQVd DWltNz4xt2D1t895PYUzRD KpkL17Dz8o aDppNNNrjNJAgA8tjfxnc6 ecyrveQcQhDUZmZXe8LFd3 AXJrlMddQlDbSSG5XtO1OJ T0aZXooH2i hPykypoanV2mKeh+TWFsZT wvdGQ+UMPtCPU7cAcoHObz TMOxrQ9hUNBmS7t5KePiFb Y2AMvcB7Bj MCFardqpCe73zD1iMxYaRi G4WBvnC3UnlkQ6UVGpzRSz NUapJWZ6G66ku1Y5SPFhMB GvGWB2eFC2 rT9iqTvvmrqirTPfdNszxz JaiQoaMMjxUOjtX608QVUv pQndRnOxP4AsspwrWgxwoB Q+JY33hg68 P2FlNimjCyn9IDOhMDY6zE K8vO8rBZJxEDokj8Q3cFC8 G3UkwdEdil8fv8upXUWkVJ hkO23whBOr t9J0UEEhbEE6CLSnxExjPo IntT99Fnr+KNLfgNsjf4Rn Oyqmt0rgh0qxpNk1BqNxDB IgdmFsaWdu HLX3x6JbAh90V23jUAjcHM OvFEOxIWKyTADqhJdwfp9v gM2iYi8+XINzwPM8jJZ4bI 0fWsXbHvS0 XXlvU718EhDwyMYyEiluc8 lxz6syhFs3NsZnRLQanlGd cPpyGTO4i6BsOr29Z9FgcP zhk6JpKxs2 rr24wBApe6Z5xUB7O2CdQD SnustsoJDefRquNJ2lIKSg gsnjOGSvyP2rAFIlJ8r7Am ZgSrK8FWxy A1PoguV7YHJwyDKpQZPdcL GClZ6juggid6kibwatYjHe ZYMfJWz6ARh5AGUigTbmMr YqAGV5AwW7 ALD9yBKobX0jrPepkkzjfB 9wOyc+QJz9j6fyuWUtOX5k aKW9SB37GL37uKKxp5J6bD L4R1AwOHPj wmvnegtgdIE4MJXoDEMxlC 68Jk7btNnvRj4lDAWsAMM2 KZSpwYZnR4MpfU8dYlCoQU HtNRAbJ8Ej iKCnXQbwG489PBqmPbV6BZ SvemRkT8EwIIFwfBwlFpL6 p0O2Ym0LOT25BQ06XX50cL Tus9E7aUH8 I3NiIQKmgwprvnatmEK1ML TlHTPikL58Hd8euMfdPl9n NAMbDCR0KIDynSMuO9DjfE 9yOiAjMDAw ZKJwB4TfgLJaHPhyW627VU ijClP1ZPDvxqOyN2BmSNZi pRbtJcB5y0J8Ox9YAi66QB 41ZO77gGAp o2I7hFY8T0JqGYAenpmyxy ukbIV4MDPeQOGcyX55Ld3l wKaiKe6nSYOmOQC1PVGyqE YrO2EwjK4s YnDuYILgDUQfS5CjpWQyMY ovP871PTpbIfV7NBJlvvVm T5TsEFKelBuvDoE1q3D9Sc 4EWGigodp6 F3FrEiaioDA+QM02INZyMJ 06sWJmfNRby9nqtBj2SkUl XHHoTHG4uEjtJHgll4WzBE DhT59rhLTn c2U6 (more content not included)... Normal [facility] Consent for Treatmenton 12-30 Consent for Treatment [id number] 2079 [id number]#1.0 0CD:127 Normal [facility] Heart and Vascular Office/Cl inic Noteon 01-23-2022 [...] in office. He had echocardiogram performed at [facility], which was normal. He was ordered [...] protocol. [1] patient was then referred to [place] and was placed on sotalol followed by [...] with speaking. 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 He is taking and tolerating his medicines well. He has had no exertional chest pain symptoms prior to his COVID infection. 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 His daughter works here at [employer] and was present for his visit. Patient is now her (more content not included)... Normal [facility] Comment on above: Result Comment: Elec tronically Signed By: Camilo STARK, Kushal Galarza\[employer]\Date and Time Signed: 01/23/22 14:23 EDT Stress EKG Tracingson 2021 Stress EKG Tracings [id number] 05 [id number]#1. 00CD:127 Normal [facility] NM Myocardial Spect Part 2on 01-22-2022 NM [...] Stress Dose (mCi Tc99M Cardiolite): 29.9 Normal [facility] Consent for Treatmenton 12-30 Consent for Treatment [id number] 2079 [id number]#1.0 0CD:127 Normal [facility] CT CHEST WO CONon 01-19-2022 CT CHEST [...] by: LORENA ANTONIO Date: 2022-01-19 17:17 Normal [facility] HEMOGLOBINon 01-19-2022 Hemoglobin (Bld) [Mass/Vol] 13.2 g/dL Critically low 14.0-18.0 [facility] Comment on above: Performed By: #### H GB #### [facility] [address] [place] [id number] Maria T Canela Pre-Certification Formon Pre-Certification Form [id number]#1. 00CD:127 [facility] TSH - Thyroid Stimulating Ho mckenna, Serumon 12-31-2021 TSH Qn 1.65 m[IU]/L See Below [facility] 320 DO Work Phone: Comment on above: Reference Range: 0.4 4 - 3.98 TSH testing is performed using different testing methodology at [facility] than at other [facility]. Direct result comparisons should only be made within the same method. Tobacco Screening.on Adult depression screening assessment No [facility] 320 DO Work Phone: Fall risk assessment a) No falls within the last year [facility] 320 DO Work Phone: Tobacco use status CP b) No [facility] 320 DO Work Phone: Outside Recordson 12-30-2021 Outside Records [id number] 20 [id number]#1.0 0CD:127 [facility] Coding Summary.on 12-24-2021 Coding Summary. CD:[id number] Gh 0bWw+PGhlYWQ+WD6YTPIpA 91jwDFxwY1FM0fEIA1BVEA KOPFSLA6ZGQ5inKD1BHqxS 2VybiAv GxyrsNIbBI67KTm4JFU3aB rqIPjntL4pkXXoK0d4RwUl WZ10hP63MFkdDRVwHoE2Rh ZpbjsgbWFy N2wpOiFdjROzNnt+PHRhYm xlIHdpZHRoPScxMDAlJyBz kCglFJ7dJv6mNROgARFvpD xhcHNlOiBj a6veCRMfTQgkWQ6uhSabG3 NjbHG6UQXcc9z6Sy35xOL+ SKYbXTN4gXybFDsug066Jz Whs4mvSOX8 dTUlMDxlGXU2M95dk4I5EQ EsAPSvYWG6wPQ4fH5ujKlj rtqbD1JoiJTgRbV6WTF1wZ TomJ8jnYlo odcroR5rUjo+H39ARI2LIR QHTV8VOsp0U8LeGqtkmWA+ SU43FMZgCX88sKHewWHmm8 gpuXo4FqMy IIFxUPP6iAhzDQxdk2JwQI OdL04uzBYlh2N1BAZlgSbr nOKaYeMorXV3kT5pGErqye vgx6zkuvvw Kztnf4ogeh74eC05F17eQQ xaKTRfULT3CXXuTDEqbSla ki9rkN6uGc1+IAvva4cut7 cpiCj6PqPn AJGmyvFyzQnbDVH1a0XrFi 39R0XkwPwwq9GaHkx1hb91 gCEdp7M1nAL8ZRykTNHwnG 6gXLnvMqA1 CWSeCzLrgE13gJUkBBihUm 7vcSyxxHviKM8tXKEmgtni KLVrmE4tWCFdbKYitZytAX 4wNTBpbjtm e090NiRzKWK1IHFmvYFjK7 SwwU2mOjDjLDKdTGAuY9Tp vVVwMPfzG540FWgaTvF8AR UpgsJqK4Pv KMXbvJseXyB1m8M7Cz3Yt9 IeugayLFR6GFmfIYL4ZsS6 NnTqSeL4C9EmQeh5PLBvnZ zyRN4iY2Xw LEZeuldqpvobnPA6UQHfPP MdkM71oMVtDZcsMs4zy5Y0 w090ROLqURTwtU54Jg1gfJ ogMTBwdCBU iR7ilrpiu9ydxnquSaIfBE CpDWc6JTi9NYJqvJmpEqGc OIM6FsG1ISN7xKSxkS2zpP ljcgwrpC2z Oyc+O60ewV0dSZW8ENA4by lwESGqzyOxAO16EP36P3Vd PjwvdGFibGU+PGRpdiBzdH uhSN9hDwIj l8gsi3IsHZzsQ4IhNKHlSH obUjv2DTOhAWZ1kJA2fD8m QFGfOTrhp0A7gTH2C5Jern Ccmn1cl5kl MTKwMFiiI12hqGBoz5M2ST KxdCD4LRLxzNpnGkMghT75 Oyc+WDHrsDqah4QoRcuis9 aew6qsjAt8 LbUdHOShvkUahVbwZJO7s5 ApNu18O98cEWatRTQiDIDc NCArUHMmcPlkqi6xaG8aAh 8+PGNvbCB3 jWG3gI4bURWtAfI3EJjsP7 70VhOdgTDlApwvs5xyv9kr pNb0FiHhCZGoqvTlbHoaXY V1v8GtJf60 H53cUZkpHMOwCEWgIKPuDS JnjBslvu7onF8gYt2+PC9j m6qnwe57zD61lRX+PHRkIH Z3uLxgAHzi NUUztM3cSKkvCrM5QLKcLo QvfR36kGOuGDxvBq0sdJep jHsfQF9sQFIsdsmwu864Zq Vmi1ahQOHu gGQlGWqlZQO3J50la7I0JI DbMCTeVEU1jDZ3dV9kaLns bjogbGVmdDsgdmVydGljYW mtGRfgX189 IHRvcDsnPlBhdGllbnQgTm VhPOs0A7OkEat2ZQYuwNxd QL2yyWUpICesXc8khTjrnT kvXD2uWIWt zcksc057DsWrg8abQFLjpB VcOKxfETN7W79gs4D3UWLk MYHeWVP9bTD1kK3ilVfkmk ogbGVmdDsg ijIzxXphZOjjGYvvH123OS RvcDsnPkJpcnRoIERhdGU6 IR93MD50dHYno3E6kIH2X4 BhZGRpbmct dmbvyUM4LOJoDCFsfK57Cw 1tnFdeRp5bJFRgKYE8XZLj jCWtO7RcmA2iXiLjLSGyRS LiP8UhpWLx HVwuU000IDawVpM9ANXmjt BwJ2YqDMJqfVemMbA2b3Z0 Rs0TI4D2PO05VY25jCQpd3 F5pJI6L5Ra HLTsucembghsfEI8VVFrXY WyuI31Sy4njSriAx9yPSSb KKO6DEUlyZJzB7FdhM6aLp AjMDAwMDAw O3QilLHuJKanL540AYazYs Z5MLEhuxPsB9AbTLBckSmg BpX0r2S6Cb3BLIl1QL70GD 89dRLkv9I5 dAT8E6OwXMSkjienmmemoD X4LMSqIXIabH52Ji1rtAow Pv6zYYRtITP1TYOecNPcW0 KczS3eSyWf KCHrBLNsO4RlbFRlZVebF3 72OVcnCcR5ARSsemCsC8Uq WTMkaRunNhS4a9X8Dv7QZS EjCW54USF2 oOM8PZ06RK40U6MuGswybJ FibGU+PHRhYmxlIHdpZHRo EYhmPGVcWfTmjCiiDE9gLs 9yZGVyLWNv zQxqfHZhDjFxi7naEYQyWK sgSG3nbEybC5VpxEE8HLQr m9p0Xn27M63iF6WzkVT+PG FegTX0rWY1 sJ2xUyAzDlW6FObrE936Hv QtvKQnPxcra8ngq3pimDi4 RcH9ZMRdkaOyiGkrNPX4e8 BfSn61K36i IHdpZHRoPSIxNSUiIHZhbG khai8sdK7bEj5+PGNvbCB3 jOK7xL5rRkAcAmK9SNntH3 49InRvcCIv Lrvma2mjv6akmTp7IcQtQA BffjNkwTmvSRG5c3IlKk68 W2TxdHyky9IjIul5ai53eH Wuu5M2gDK5 V4BrMGBdwtwcrJSedItpQD 4dZBGgxddfIVBrxH6jGHXq J9l9GrOwHiK9KWrkF0Ssra U0MDMfpLDx GIvjSPA5U19dv5Z3IRZwNT GaMOM3dTM9fD2uxAozoipa bGVmdDsgdmVydGljYWwtYW hbG496YSNt oKcdHBHuwW1mWRNtzAErpI rmSM2cJIRyyqvhLdJLLuOO OdwuNJNSOLPHJcZDZV57QW 03vVOxk2R8 wEM0P7LjFIBfboiqennzqX U4SFNlZAUnkI42rTLjHRaj Xf3re2L1o658ABSsWNJeuJ 17Kt0acZsf KDGwvUFMxI8szjynx0txrh wjTeOnGWXhTHu3BIy1DRFh hYluTkMgDJH3KkO6ADF2xX VkvF1piEgp wohyiN7aCuj+MDUvMTEvMT v3BYnhlRK+HSFqAUE6wXkj MAaxEUGvxY0aENYzB8z2Uv LeKqB1YUdn S3FsBBVtviwmDb49fE6mVf JwHkT0DQhlC1LlkoQ6AZPz hGTnWVerGBD5M50hi8S9TZ MwMDAwMDA7 cPC7xZ8ndGwklnhgdUFajH ejpxNzhNbnABovGOycP162 LUQiiBdsEmQ3PUscDWKdIW 56YR68zCMn k8B8wPQ9U1XsOWWudnbyhj urzZP3UUZfVKOmyN62ePPw YCiyWz9mp0B7o350UOCfKP UleC91Af4c vRzlCTMuuFCJlG8vyzadl6 aggwtuNzTcXXDuVHi0EDh5 ZDGnsJxhDdAqMYE3YsH9FW V0nFCcoI9j rQjhweopkB3jEye+TWFsZT wvdGQ+SSYyNFN4aNjeMTot SCNgjR6dDVHbJ5c2FcGiFg O0ZUixG3Cb ICGjtnitVg21rD5yQxQwGf J7SJreQ3OnvdW5PRPxsNHm WHakMBD4I32cj0N2DAZtLI BjJZU9qWX3 rN9cuSudkdsckORceNvjeq MfhEfrKFffKIncZ017VLWu aScvRp97iQJpwMesurD9W3 RkPjwvdHI+ TH57ZAAqLO55kREpjZJnl0 oqpYw6IcEwFNTpGQM8aOrv LXmmm9WcMXOxR03pcWYvh1 W4IUAifCxn aAGtHuJnaNG8qK7iHRhrud lnz0mhhbsnJoijt3nynm67 iY38X39dMVhqUTSxNHGkFL UiIHZhbGln qi4ozT0iCl5+XDEztOB0mY K9mV6bPpUdImA8JYjxF122 GjRttBDgOilfa2vwg9socM u7VlNkHJOx zwStyWogEDV1l5DdTu40S9 9sIHdpZHRoPSIyMCUiIHZh rXoadx2wwX9gSn0+PC9jb2 qpvn82qX99 dHI+JUQmDXE7xCysQDoiLX MjpI4sAJdkMgP2IKYmMeLd vM14gKJaBPwcFb0cpIiwvN wsCH2aNXMb ieywi813IgFwa8ijDGAdnR YfVWymVXL9I53kr5K6XBUu DDDlNNS2xNS6kS1pnVxpai ogbGVmdDsg maZbeLncSPtbSXsaA422YV KfiWmsKzJukXWcF8ouzqWA AT4mJfuomLY+WTGySCH5gJ xlPSdwYWRk cQ2aGBZnB8u4VyWrBoB7RX ogY3EpfvR8QCPgyFYkBHJf jGEYoX2dydbrp2zfqvlfVb AwMDAwMDt0 BVm4CHXjbKhjKmLaPCX7If J5KXE0qJDbxS9euMxrzsai mI4wImy+RklOOjwvdGQ+PH GwVNE3pAuw ZZlsRKPqeE0aVILgF1p2En CzSmZ3NPmxZ9EzouD5AMZs mAPnBVXyaIGYbR2hjdpvz6 xvcjogIzAw BNYvPXk3UPz2DFFkiGnlFj SzNEC7BdA9GZP6fONtjH9j uJaasgwkvI1aFfo+TVJOOj wvdGQ+PHRk RRL4vUboFRroNXMcpD7yMD MlJ4g3AdYfVnT0PDizI1Jw emZ4SMYpfUTdYODvyPSIzM 4bqkbtd0ba bzqpExPsTIZwDGu8KYo6CD GhiCpaFjTjKKE5PuU6AQM4 bYVklO4qwFdngbazbS1nHd c+CGS0ECH0 EX64AZ71H7JtBaxkkNKvvC U+PHRhYmxlIHdpZHRoPScx WIKaZsLdqDgrOA5nAv4zWA VyLWNvbGxh cHNl (more content not included)... [facility] Consent for Treatmenton 070 Consent for Treatment [id number]#1.0 0CD:127 [facility] Heart and Vascular Office/Cl inic Noteon 12-05-2021 [...] in office. He had echocardiogram performed at [facility], which was normal. He was ordered [...] with speaking. 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 He is taking and tolerating his medicines well. He has had no exertional chest pain symptoms prior to his COVID infection. 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 His daughter works here at [employer] and was present for his visit. In [...] perfusion R (more content not included)... Normal [facility] Comment on above: Result Comment: Elec tronically Signed By: Camilo STARK, Kushal Moran.br\Date and Time Signed: 12/05/21 15:17 EDT Progress Note-Physicianon Progress Note-Physician [id number]#1. 00CD:127 Normal [facility] Tobacco Screening.on 021 Fall risk assessment b) One or more fall s in the last year [facility] 320 DO Work Phone: Tobacco use status CPHS b) No [facility] 320 DO Work Phone: Tobacco Screening. Yes [facility] 320 DO Work Phone: COVID-19 Lab Corpon 10-05-19 21 SARS-CoV-2 (COVID-19) RNA PATTIE+probe Ql (Unsp spec) Not detected Normal Not Detected [facility] Comment on above: Order Comment: Healt hcare Worker?: N Result Comment: This nucleic acid amplification test was developed and its performance characteristics determined by [employer]. Nucleic acid amplification tests include RT- PCR [...] detected) result in this assay. PERFORMED BY: [facility] [place] [address] PATHOLOGIST ONCOLOGY NURSE NAVIGATOR SAMEER HARDIN M.D. Performed By: #### C ORONAVIRUS #### [facility] , Vital Signs Date Time Vital Sign Value Performing Clinician Facility 10-04-2023 13:56-0400 Body height 177.8 cm Margret Stevens MD Work Phone: [phone] [place] [address] 10-04-2023 13:56-0400 Body mass index (BMI) [Ratio] 52.8 kg/m2 Margret Stevens MD Work Phone: [phone] [place] [address] 10-04-2023 13:56-0400 Body weight 166.92 kg Margret Stevens MD Work Phone: [phone] [place] [address] 10-04-2023 13:56-0400 Diastolic blood pressure 64 mm[Hg] Margret Stevens MD Work Phone: [facility] 10-04-2023 13:56-0400 Heart rate 61 /min Margret Stevens MD Work Phone: [facility] 10-04-2023 13:56-0400 Systolic blood pressure 128 mm[Hg] Margret Stevens MD Work Phone: [facility] 07-19-2023 15:30-0500 Body height 177.8 cm Margret Stevens MD Work Phone: [facility] 07-19-2023 15:30-0500 Body mass index (BMI) [Ratio] 52.37 kg/m2 Margret Stevens MD Work Phone: [facility] 07-19-2023 15:30-0500 Body weight 165.56 kg Margret Stevens MD Work Phone: [facility] 07-19-2023 15:30-0500 Diastolic blood pressure 88 mm[Hg] Margret Stevens MD Work Phone: [facility] 07-19-2023 15:30-0500 Heart rate 65 /min Margret Stevens MD Work Phone: [facility] 07-19-2023 15:30-0500 Systolic blood pressure 138 mm[Hg] Margret Stevens MD Work Phone: [facility] 05-07-2023 11:45-0500 Body height 175.26 cm Kelly Lucinda Other [facility] Other 05-07-2023 11:45-0500 Body mass index (BMI) [Ratio] 53.3 kg/m2 Kelly Lucinda Other [facility] Other 05-07-2023 11:45-0500 Body temperature 97.2 [degF] Kelly Lucinda Other [facility] Other 05-07-2023 11:45-0500 Body weight 163.75 kg Kelly Lucinda Other [facility] Other 05-07-2023 11:45-0500 Diastolic blood pressure 93 mm[Hg] Kelly Lucinda Other [facility] Other 05-07-2023 11:45-0500 Respiratory rate 18 /min Kelly Lucinda Other [facility] Other 05-07-2023 11:45-0500 SaO2% (BldA) [Mass fraction] 95 % Kelly Lucinda Other [facility] Other 05-07-2023 11:45-0500 Systolic blood pressure 159 mm[Hg] Kelly Lucinda Other [facility] Other 03-08-2023 09:30-0400 Body height 175.26 cm Beena Benítez Other [facility] Other 03-08-2023 09:30-0400 Body mass index (BMI) [Ratio] 55.67 kg/m2 Beena Benítez Other [facility] Other 03-08-2023 09:30-0400 Body weight 171.01 kg Beena Benítez Other [facility] Other 03-08-2023 09:30-0400 Diastolic blood pressure 85 mm[Hg] Beena Benítez Other [facility] Other 03-08-2023 09:30-0400 Systolic blood pressure 145 mm[Hg] Beena Benítez Other [facility] Other 02-15-2023 14:33-0400 Body height 177.8 cm Beena Benítez Work Phone: [facility] [employer] 250 DO Work Phone: 02-15-2023 14:33-0400 Body mass index (BMI) [Ratio] 53.38 kg/m2 Beena Benítez Work Phone: [facility] 250 DO Work Phone: 02-15-2023 14:33-0400 Body surface area Derived from formula 2.72 m2 Beena Benítez Work Phone: [employer] 250 DO Work Phone: 02-15-2023 14:33-0400 Body weight 168.74 kg Beena Benítez Work Phone: [employer] [employer] 250 DO Work Phone: 02-15-2023 14:33-0400 Diastolic blood pressure 82 mm[Hg] Beena Benítez Work Phone: [facility] 250 DO Work Phone: 02-15-2023 14:33-0400 Heart rate 64 /min Beena Benítez Work Phone: [facility] 250 DO Work Phone: 02-15-2023 14:33-0400 Systolic blood pressure 138 mm[Hg] Beena Benítez Work Phone: [facility] 250 DO Work Phone: 11-23-2022 17:11-0400 Diastolic blood pressure 84 mm[Hg] Beena Benítez Work Phone: [facility] 250 DO Work Phone: 11-23-2022 17:11-0400 Systolic blood pressure 138 mm[Hg] Beena Benítez Work Phone: [facility] 250 DO Work Phone: 11-23-2022 15:32-0400 Body height 177.8 cm Beena Benítez Work Phone: [facility] 250 DO Work Phone: 11-23-2022 15:32-0400 Body mass index (BMI) [Ratio] 53.95 kg/m2 Beena Benítez Work Phone: [facility] 250 DO Work Phone: 11-23-2022 15:32-0400 Body surface area Derived from formula 2.73 m2 Beena Benítez Work Phone: [facility] 250 DO Work Phone: 11-23-2022 15:32-0400 Body weight 170.55 kg Beena Benítez Work Phone: [facility] 250 DO Work Phone: 11-23-2022 15:32-0400 Diastolic blood pressure 90 mm[Hg] Beena Benítez Work Phone: [facility] 250 DO Work Phone: 11-23-2022 15:32-0400 Heart rate 82 /min Beena Benítez Work Phone: [facility] 250 DO Work Phone: 11-23-2022 15:32-0400 Systolic blood pressure 148 mm[Hg] Beena Benítez Work Phone: [facility] 250 DO Work Phone: 10-05-2022 14:45-0400 Body height 177.8 cm Beena Benítez Work Phone: [facility] 250 DO Work Phone: 10-05-2022 14:45-0400 Body mass index (BMI) [Ratio] 53.81 kg/m2 Beena Benítez Work Phone: [facility] 250 DO Work Phone: 10-05-2022 14:45-0400 Body surface area Derived from formula 2.73 m2 Beena Benítez Work Phone: [facility] 250 DO Work Phone: 10-05-2022 14:45-0400 Body weight 170.1 kg Beena Benítez Work Phone: [facility] 250 DO Work Phone: 10-05-2022 14:45-0400 Diastolic blood pressure 84 mm[Hg] Beena Benítez Work Phone: [facility] 250 DO Work Phone: 10-05-2022 14:45-0400 Heart rate 52 /min Beena Benítez Work Phone: [facility] 250 DO Work Phone: 10-05-2022 14:45-0400 Systolic blood pressure 126 mm[Hg] Beena Benítez Work Phone: [facility] 250 DO Work Phone: 08-17-2022 15:25-0400 Body height 177.8 cm Beena Benítez Work Phone: [facility] 250 DO Work Phone: 08-17-2022 15:25-0400 Body mass index (BMI) [Ratio] 53.38 kg/m2 Beena Benítez Work Phone: [facility] 250 DO Work Phone: 08-17-2022 15:25-0400 Body surface area Derived from formula 2.72 m2 Beena Benítez Work Phone: [facility] 250 DO Work Phone: 08-17-2022 15:25-0400 Body weight 168.74 kg Beena Benítez Work Phone: [facility] 250 DO Work Phone: 08-17-2022 15:25-0400 Diastolic blood pressure 78 mm[Hg] Beena Benítez Work Phone: [facility] 250 DO Work Phone: 08-17-2022 15:25-0400 Heart rate 66 /min Beena Benítez Work Phone: [facility] 250 DO Work Phone: 08-17-2022 15:25-0400 Systolic blood pressure 124 mm[Hg] Beena Benítez Work Phone: [facility] 250 DO Work Phone: 07-06-2022 15:45-0500 Body height 177.8 cm Beena Benítez Work Phone: [facility] 250 DO Work Phone: 07-06-2022 15:45-0500 Body mass index (BMI) [Ratio] 53.38 kg/m2 Beena Benítez Work Phone: [facility] 250 DO Work Phone: 07-06-2022 15:45-0500 Body surface area Derived from formula 2.72 m2 Beena Benítez Work Phone: [facility] 250 DO Work Phone: 07-06-2022 15:45-0500 Body weight 168.74 kg Beena Benítez Work Phone: [facility] 250 DO Work Phone: 07-06-2022 15:45-0500 Diastolic blood pressure 80 mm[Hg] Beena Benítez Work Phone: [facility] 250 DO Work Phone: 07-06-2022 15:45-0500 Heart rate 64 /min Beena Benítez Work Phone: [facility] 250 DO Work Phone: 07-06-2022 15:45-0500 Systolic blood pressure 118 mm[Hg] Beena Benítez Work Phone: [facility] DO Work Phone: 06-15-2022 11:15-0500 Body height 175.26 cm Beena Benítez Other [facility] Other 06-15-2022 11:15-0500 Body mass index (BMI) [Ratio] 55.81 kg/m2 Beena Benítez Other [facility] Other 06-15-2022 11:15-0500 Body weight 171.46 kg Beena Benítez Other [facility] Other 06-15-2022 11:15-0500 Diastolic blood pressure 88 mm[Hg] Beena Benítez Other [facility] Other 06-15-2022 11:15-0500 SaO2% (BldA) [Mass fraction] 97 % Beena Benítez Other [facility] Other 06-15-2022 11:15-0500 Systolic blood pressure 130 mm[Hg] Beena Benítez Other [facility] Other 03-09-2022 11:20-0400 Blood Pressure Location Kushal Page [facility] 03-09-2022 11:20-0400 Diastolic blood pressure 76 mm[Hg] Kushal Page [facility] 03-09-2022 11:20-0400 Heart rate 60 /min Kushal Page [facility] 03-09-2022 11:20-0400 Respiratory rate 18 /min Kushal Page [facility] 03-09-2022 11:20-0400 SaO2% (BldA) [Mass fraction] 98 % Kushal Page [facility] 03-09-2022 11:20-0400 Systolic blood pressure 140 mm[Hg] Kushal Page [facility] 02-05-2022 06:41-0400 Blood Pressure Location Kushal Page [facility] 02-05-2022 06:41-0400 Diastolic blood pressure 82 mm[Hg] Kushal Page [facility] 02-05-2022 06:41-0400 Heart rate 56 /min Kushal Page [facility] 09-08-2022 06:41-0400 Respiratory rate 20 /min Kushal Page [facility] 02-05-2022 06:41-0400 SaO2% (BldA) [Mass fraction] 100 % Kushal Page [facility] 02-05-2022 06:41-0400 Systolic blood pressure 150 mm[Hg] Kushal Page [facility] 01-23-2022 14:04-0400 Blood Pressure Location Kushal Page [facility] 01-23-2022 14:04-0400 Diastolic blood pressure 67 mm[Hg] Kushal Page [facility] 01-23-2022 14:04-0400 Heart rate 70 /min Kushal Page [facility] 01-23-2022 14:04-0400 Respiratory rate 18 /min Kushal Paeg [facility] 01-23-2022 14:04-0400 SaO2% (BldA) [Mass fraction] 97 % Kushal Page [facility] 01-23-2022 14:04-0400 Systolic blood pressure 140 mm[Hg] Kushal Page [facility] 12-31-2021 11:54-0400 Body height 177.8 cm Beena Benítez Work Phone: [facility] [employer] DO Work Phone: 12-31-2021 11:54-0400 Body mass index (BMI) [Ratio] 52.95 kg/m2 Beena Benítez Work Phone: [facility] [employer] DO Work Phone: 12-31-2021 11:54-0400 Body surface area Derived from formula 2.71 m2 Beena Benítez Work Phone: [facility] DO Work Phone: 12-31-2021 11:54-0400 Body weight 167.38 kg Beena Benítez Work Phone: [facility] DO Work Phone: 12-31-2021 11:54-0400 Diastolic blood pressure 84 mm[Hg] Beena Benítez Work Phone: [facility] DO Work Phone: 12-31-2021 11:54-0400 Heart rate 67 /min Beena Benítez Work Phone: [facility] DO Work Phone: 12-31-2021 11:54-0400 Systolic blood pressure 138 mm[Hg] Beena Benítez Work Phone: [facility] DO Work Phone: 12-05-2021 15:01-0400 Blood Pressure Location Kushal Page [facility] 12-05-2021 15:01-0400 Diastolic blood pressure 69 mm[Hg] Kushal Page [facility] 12-05-2021 15:01-0400 Heart rate 70 /min Kushal Page [facility] 12-05-2021 15:01-0400 Respiratory rate 18 /min Kushal Page [facility] 12-05-2021 15:01-0400 SaO2% (BldA) [Mass fraction] 98 % Kushal Page [facility] 12-05-2021 15:01-0400 Systolic blood pressure 118 mm[Hg] Kushal Page [facility] 04-23-2021 16:19-0500 Body height 177.8 cm Beena Benítez Work Phone: [facility] DO Work Phone: 04-23-2021 16:19-0500 Body mass index (BMI) [Ratio] 51.94 kg/m2 Beena Benítez Work Phone: [facility] DO Work Phone: 04-23-2021 16:19-0500 Body surface area Derived from formula 2.69 m2 Beena Benítez Work Phone: [facility] DO Work Phone: 04-23-2021 16:19-0500 Body weight 164.2 kg Beena Benítez Work Phone: [facility] DO Work Phone: 04-23-2021 16:19-0500 Diastolic blood pressure 62 mm[Hg] Beena Benítez Work Phone: [facility] DO Work Phone: 04-23-2021 16:19-0500 Heart rate 65 /min Beena Benítez Work Phone: [facility] DO Work Phone: 04-23-2021 16:19-0500 Systolic blood pressure 108 mm[Hg] Beena Benítez Work Phone: [facility] DO Work Phone: 10-09-2020 14:30-0400 Diastolic blood pressure 66 mm[Hg] Beena Benítez Other Phone: [facility] 10-09-2020 14:30-0400 Heart rate 50 /min Beena Benítez Other Phone: [facility] 10-09-2020 14:30-0400 Systolic blood pressure 133 mm[Hg] Beena Benítez Other Phone: [facility] 10-09-2020 13:00-0400 Body temperature 96.8 [degF] Beena Benítez Other Phone: [facility] 10-09-2020 13:00-0400 Respiratory rate 19 /min Beena Benítez Other Phone: [facility] 10-09-2020 13:00-0400 SaO2% (BldA) [Mass fraction] 98 % Beena Benítez Other Phone: [facility] 10-09-2020 02:15-0400 Body weight 159.4 kg Beena Benítez Other Phone: [facility] Encounters Encounter Date Encounter Type Care Provider Facility Start: 10-04-2023 End: 10-04-2023 ambulatory [facility] Ambulatory Start: 10-04-2023 End: 10-04-2023 Office outpatient visit 25 minutes Margret Stevens MD Work Phone: [facility] Comment on above: SOB (shortness of br eath); Edema, unspecified type; Chronic systolic congestive heart failure, NYHA class 2 (Multi); Ischemic cardiomyopathy; Coronary artery disease involving hopland coronary artery of hopland heart without angina pectoris; Paroxysmal atrial fibrillation (Multi); Lower leg edema; High risk medication use; Hypercoagulable state due to paroxysmal atrial fibrillation (Multi); Unspecified atrial fibrillation (Multi); Sleep apnea treated with continuous positive airway pressure (CPAP); Mixed hyperlipidemia; Medication course changed Start: 07-19-2023 End: 07-19-2023 ambulatory [facility] Start: 07-19-2023 End: 07-19-2023 Office outpatient visit 25 minutes Margret Stevens MD Work Phone: [facility] Comment on above: Paroxysmal atrial fi brillation (CMS/HCC); Coronary artery disease involving hopland coronary artery of hopland heart without angina pectoris; Ischemic cardiomyopathy; Chronic systolic congestive heart failure, NYHA class 2 (CMS/HCC); Hypercoagulable state due to paroxysmal atrial fibrillation (CMS/HCC); Medication course changed; Mixed hyperlipidemia; High risk medication use Start: 05-07-2023 End: 05-07-2023 ambulatory Kelly Jane Other [facility] Other Start: 05-07-2023 Office outpatient vi sit 15 minutes Kelly Jane [facility] Start: 05-07-2023 Telephone encounter Beena Benítez [facility] Start: 03-08-2023 End: 03-08-2023 ambulatory Beena Benítez Other [facility] Other Start: 03-08-2023 Office outpatient vi sit 25 minutes Beena Benítez [facility] Start: 02-15-[address] Beena Benítez Facility: Start: 02-03-2023 Rx Renewal Beena Benítez Work Phone: [facility] DO Work Phone: Start: 01-28-2023 End: 01-28-2023 ambulatory Beena Benítez Other [facility] Other Start: 01-28-2023 Telephone encounter Beena Benítez [facility] Start: 12-03-[address] Beena Benítez Facility: Start: 11-30-[address] Beena Benítez Facility: Start: 11-30-2022 Patient encounter procedure Beena Benítez Work Phone: [facility] DO Work Phone: Start: 11-23-2022 Office outpatient ne w 45 minutes Beena Benítez Work Phone: [facility] DO Work Phone: Start: 11-23-[address] Margret Newman ty: Start: 10-27-2022 End: 10-28-[address] DOCTOR HOLDEN Facility:[facility]1 Start: 10-12-2022 Telephone encounter Beena echavarria Work Phone: [facility] DO Work Phone: Start: 10-05-2022 Office outpatient vi sit 25 minutes Beena Benítez Work Phone: [facility] DO Work Phone: Start: 10-05-[address] Margret Newman ty: Start: 09-22-2022 Patient encounter procedure Beena Benítez Work Phone: [facility] DO Work Phone: Start: 09-17-2022 Chart Update Beena Benítez Work Phone: [facility] DO Work Phone: Start: 09-17-2022 End: 09-17-2022 ambulatory Beena Benítez Other [facility] Other Start: 09-17-2022 Telephone encounter Beena Benítez [facility] Start: 09-10-[address] Beena Benítez Facility:[id number] Start: 09-08-2022 End: 09-09-2022 Pre-admission assessment Kushal Page [facility] Start: 08-17-2022 Office outpatient vi sit 25 minutes Beena Benítez Work Phone: [facility] DO Work Phone: Start: 08-17-[address] Margret Newman ty: Start: 07-20-2022 End: 07-21-[address] DOCTOR HOLDEN Facility:[facility]1 Start: 07-06-2022 Office outpatient vi sit 25 minutes Beena Benítez Work Phone: [facility] DO Work Phone: Start: 07-06-[address] Margret Newman ty: Start: 06-23-2022 End: 06-23-2022 ambulatory Beena Benítez Other [facility] Other Start: 06-23-2022 Telephone encounter Beena Benítez [facility] Start: 06-15-2022 Office outpatient vi sit 25 minutes Beena Benítez [facility] Start: 06-15-2022 End: 06-16-[address] BEENA BNEÍTEZ [facility] Other Start: 06-02-2022 End: 06-02-2022 ambulatory Beena Benítez Other [facility] Other Start: 06-02-2022 Telephone encounter Beena Benítez [facility] Start: 03-09-2022 End: 03-10-2022 ambulatory XXXX NONE Facility:[facility] Start: 03-09-2022 End: 03-09-2022 Patient encounter procedure Kushal Page [facility] Start: 02-05-2022 End: 02-05-2022 ambulatory MD Kushal Page Facility:[facility] Start: 02-05-2022 End: 02-05-2022 Admission to same day surgery center Kushal Page [facility] Start: 01-28-2022 End: 01-29-2022 ambulatory MD Kushal Page Facility:[facility] Start: 01-28-2022 End: 01-28-2022 Patient encounter procedure Kushal Page [facility] Start: 01-23-2022 End: 01-24-2022 ambulatory MD Kushal Page Facility:[facility] Start: 01-23-2022 End: 01-23-2022 Patient encounter procedure Kushal Page [facility] Start: 01-21-2022 End: 04-23-2022 ambulatory MD Kushal Page Facility:[facility] Start: 01-21-2022 End: 04-22-2022 Recurring Kushal Page [facility] Start: 01-19-2022 Rx Renewal Beena Benítez Work Phone: [facility] DO Work Phone: Start: 01-19-2022 End: 01-20-[address] NONE LISTED REQUEST Facility: Start: 01-01-2022 Chart Update Beena Benítez Work Phone: [facility] DO Work Phone: Start: 12-31-2021 Patient encounter procedure Beena Benítez Work Phone: [facility] DO Work Phone: Start: 12-31-2021 Current tobacco non- user cad cap copd pv dm Beena Benítez Work Phone: [facility] DO Work Phone: Start: 12-05-2021 End: 12-06-2021 ambulatory MD Kushal Page Facility:[facility] Start: 12-05-2021 End: 12-05-2021 Patient encounter procedure Kushal Page [facility] Start: 07-07-2021 Rx Renewal Beena Benítez Work Phone: [facility] DO Work Phone: Start: 04-23-2021 Office outpatient vi sit 25 minutes Beena Benítez Work Phone: [facility] DO Work Phone: Start: 10-07-2020 End: 10-09-2020 Evaluation and management of inpatient Adam Alonsoia 8 Cardio ICU 816 01 Patient encounter status Beena Benítez Work Phone: [facility] DO Work Phone: Procedures Date Procedure Procedure Detail Performing Clinician Start: 10-04-2023 ECG 12-LEAD MARGRET PIERRE Start: 10-04-2023 FOLLOW UP IN CARDIOLOGY MARGRET STEVENS Start: 10-04-2023 Ecg routine ecg w/le ast 12 lds w/i&r Margret Stevens MD Work Phone: Start: 07-19-2023 Basic metabolic 2000 panel - Serum or Plasma MARGRET STEVENS Start: 07-19-2023 CBC panel - Blood by Automated count MARGRET STEVENS Start: 07-19-2023 Comprehensive metabo lic 2000 panel - Serum or Plasma MARGRET STEVENS Start: 07-19-2023 Lipid panel MARGRET SCHREIBER AN Start: 07-19-2023 ECG 12-LEAD MARGRET PIERRE Start: 07-19-2023 Ecg routine ecg w/le ast 12 lds w/i&r Margret Stevens MD Work Phone: Start: 02-05-2022 Catheterization of l eft heart Kushal Page Start: 10-09-2020 End: 10-09-2020 EKG impression Deann Yogesh Start: 2020 End: 2020 EKG impression Deann [...] catheterization Juan Benítez Work Phone: Cardioversion Beena Benítez Work Phone: Excision of mass of neck Spencer Page Hernia repair Beena Benítez Work Phone: Herniated structure (morphologic abnormality) Kushal Page Comment on above: 2009 Total colonoscopy Beena echavarria Work Phone: Plan of Treatment Date Care Activity Detail Author Start: 03-30-2031 DTaP/Tdap/Td Vaccines (2 - Tdap) DTaP/Tdap/Td Vaccines (2 - Tdap) [facility] Start: 07-17-2024 End: 07-17-2024 Patient encounter procedure 07/17/2024 3:30 PM EST Office Visit [facility] [address] [facility] [address] [place] [address] Margret Stevens MD [address] [place] [address] [address] [place] [address] [facility] Start: 06-19-2024 End: 06-19-2024 Patient encounter procedure 06/19/2024 10:45 AM EST [facility] [address] [facility] [address] [place] [id number] [facility] Start: 06-18-2024 End: 07-19-2024 CBC panel - Blood by Automated count CBC Lab Routine Paroxysmal atrial fibrillation (CMS/HCC) Hypercoagulable state due to paroxysmal atrial fibrillation (CMS/HCC) Expected: 06/18/2024 (Approximate), Expires: 07/19/2024 [facility] Work Phone: Comment on above: Expected: 06/18/2024 (Approximate), Expi res: 07/19/2024 Start: 06-18-2024 End: 07-19-2024 Comprehensive metabolic 2000 panel - Serum or Plasma Comprehensive Metabolic Panel Lab Routine Paroxysmal atrial fibrillation (CMS/HCC) Coronary artery disease involving hopland coronary artery of hopland heart without angina pectoris Ischemic cardiomyopathy Chronic systolic congestive heart failure, NYHA class 2 (CMS/HCC) Expected: 06/18/2024 (Approximate), Expires: 07/19/2024 [facility] Work Phone: Comment on above: Expected: 06/18/2024 (Approximate), Expi res: 07/19/2024 Start: 06-18-2024 End: 07-19-2024 Lipid 1996 panel - Serum or Plasma Lipid Panel Lab Routine Coronary artery disease involving hopland coronary artery of hopland heart without angina pectoris Mixed hyperlipidemia Expected: 06/18/2024 (Approximate), Expires: 07/19/2024 [facility] Work Phone: Comment on above: Expected: 06/18/2024 (Approximate), Expi res: 07/19/2024 Start: 01-30-2024 Influenza vaccination Influenza Vaccine (Season Ended) [facility] Start: 11-15-2023 End: 11-15-2023 Patient encounter procedure 11/15/2023 3:30 PM EDT Office Visit [facility] [address] [facility] [address] [place] [address] Margret Stevens MD [address] [place] [address] [address] [place], [place] [id number] [facility] Start: 11-10-2023 End: 11-10-2023 Patient encounter procedure 11/10/2023 10:45 AM EDT Appointment [facility] [address] [facility] [address] [place] [phone] [facility] Start: 10-11-2023 End: 10-03-2024 Basic metabolic 2000 panel - Serum or Plasma Basic Metabolic Panel Lab Routine SOB (shortness of breath) Edema, unspecified type Chronic systolic congestive heart failure, NYHA class 2 (Multi) Ischemic cardiomyopathy Medication course changed Expected: 10/11/2023 (Approximate), Expires: 10/03/2024 [facility] Work Phone: Comment on above: Expected: 10/11/2023 (Approximate), Expi res: 10/03/2024 Start: 10-04-2023 End: 10-03-2025 US Heart Transthoracic Transthoracic Echo Complete Echocardiography Routine SOB (shortness of breath) Chronic systolic congestive heart failure, NYHA class 2 (Multi) Ischemic cardiomyopathy Expected: 10/04/2023 (Approximate), Expires: 10/03/2025 [facility] Work Phone: Comment on above: Expected: 10/04/2023 (Approximate), Expi res: 10/03/2025 Start: 08-02-2023 End: 07-19-2024 Basic metabolic 2000 panel - Serum or Plasma Basic Metabolic Panel Lab Routine Ischemic cardiomyopathy Chronic systolic congestive heart failure, NYHA class 2 (CMS/HCC) Expected: 08/02/2023 (Approximate), Expires: 07/19/2024 [facility] Work Phone: Comment on above: Expected: 08/02/2023 (Approximate), Expi res: 07/19/2024 Start: 07-19-2023 End: 07-19-2025 [facility] Transthoracic Transthoracic Echo Complete Echocardiography Routine Ischemic cardiomyopathy Chronic systolic congestive heart failure, NYHA class 2 (CMS/HCC) Expected: 07/19/2023 (Approximate), Expires: 07/19/2025 [facility] Work Phone: Comment on above: Expected: 07/19/2023 (Approximate), Expi res: 07/19/2025 Start: 02-15-2023 FUV, Provider: Margret Stevens, Status: Pen, Time: 12:30 PM FUV, Provider: Margret Stevens, Status: Pen, Time: 12:30 PM -[facility] DO Work Phone: Start: 01-29-2023 COVID-19 Vaccine ( season) COVID-19 Vaccine ( season) [facility] Start: 01-29-2023 Influenza vaccination Influenza Vaccine (#1) [facility] Start: 12-02-2022 HOLTER 48, Provider: VIN IZAGUIRRE HAND HARDENER 1,[id number], Status: Pen, Time: 9:00 AM HOLTER 48, Provider: VIN IZAGUIRRE HAND HARDENER 1,[id number], Status: Pen, Time: 9:00 AM [facility] DO Work Phone: Start: 11-23-2022 FUV, Provider: Margret Stevens, Status: Pen, Time: 3:00 PM FUV, Provider: Margret Stevens, Status: Pen, Time: 3:00 PM [facility] DO Work Phone: Start: 10-05-2022 FUV, Provider: Margret Stevens, Status: Pen, Time: 2:30 PM FUV, Provider: Margret Stevens, Status: Pen, Time: 2:30 PM -[facility] DO Work Phone: Start: 09-10-2022 STRESS HERSON, Provider: CARLA HHVI NUCLEAR 01,[id number], Status: Pen, Time: 9:00 AM STRESS HERSON, Provider: CARLA HHVI NUCLEAR 01,[id number], Status: Pen, Time: 9:00 AM -[facility] DO Work Phone: Start: 08-17-2022 FUV, Provider: Margret Stevens, Status: Pen, Time: 3:15 PM FUV, Provider: Margret Stevens, Status: Pen, Time: 3:15 PM -[facility] DO Work Phone: Start: 10-29-2021 FUV, Provider: Adam Leo, Status: Pen, Time: 3:45 PM FUV, Provider: Adam Leo, Status: Pen, Time: 3:45 PM [facility] DO Work Phone: Start: 10-09-2021 Creatinine measurement Creatinine Level [facility] Start: 10-09-2021 Diabetes mellitus screening Diabetes Screening [facility] Start: 10-09-2021 Potassium measurement Potassium Level [facility] Start: 10-09-2020 No post-op complications No post-op complications Date: 09-Oct-2020 [facility] Start: 10-09-2020 Prolonged QT interval Prolonged QT interval Date: 09-Oct-2020 [facility] Start: 2020 Arrhythmia Arrhythmia Date: 08-Oct-2020 [facility] Start: 10-07-2020 End: 2021 [facility] Comment on above: IF patient HAS [...] BG reaches 100 mg/dL or greater. Start: 2017 RSV patients and/or patients aged 60+ years (1 - 1-dose 60+ series) RSV patients and/or patients aged 60+ years (1 - 1-dose 60+ series) [facility] Start: 10-09-2007 Zoster Vaccines (1 of 2) Zoster Vaccines (1 of 2) [facility] Start: 10-09-1975 Hepatitis C screening Hepatitis C Screening [facility] Start: 10-09-1963 Pneumococcal Vaccine: 65+ Years (1 - PCV) Pneumococcal Vaccine: 65+ Years (1 - PCV) [facility] Start: 10-09-1963 Pneumococcal Vaccine: 65+ Years (1 of 2 - PCV) Pneumococcal Vaccine: 65+ Years (1 of 2 - PCV) [facility] Start: 1958 MMR Vaccines (1 of 1 - Standard series) MMR Vaccines (1 of 1 - Standard series) [facility] Start: 1957 Annual wellness visit Medicare Initial Physical (IPPE) [facility] Start: 1957 Echocardiography Echocardiogram [facility] Start: 1957 Lipid panel Lipid Panel [facility] Start: 1957 Medicare Annual Wellness Visit Medicare Annual Wellness Visit (AWV) [facility] Start: 1957 Screening for malignant neoplasm of colon [facility] Immunizations Immunization Date Immunization Notes Care Provider Fa cili 03-30-2021 diphtheria, tetanus toxoids and pertussis vaccine Beena Benítez Work Phone: [facility] DO Work Phone: 09-30-2020 Pfizer-BioNTWelocalize COVI D-19 Vacc 30 MCG/0.3ML Intramuscular Suspension Beena Benítez Work Phone: [facility] DO Work Phone: 09-10-2020 Pfizer-BioNTech COVI D-19 Vacc 30 MCG/0.3ML Intramuscular Suspension Beena Benítez Work Phone: -[facility] DO Work Phone: Payers Date Payer Category Payer Private Health Insurance 2021 Medicare AETNA MEDICARE A ETNA MEDICARE VALUE PLAN [id number] 2021-Present [address] [place] [address] [id number] 1957 Medicare [id number] 1957 Unknown [id number] [id number] 068 1957 Unknown [id number] 2.16.840.1.436580.3.579.2.7 1957 Unknown [id number] 2.16.840.1.714576.3.579.2.7 1957 Unknown [id number] 2.16.840.1.734669.3.579.2.7 1957 Unknown [id number] 2.16.840.1.978203.3.579.2.7 1957 Unknown [id number] 2.16.840.1.188839.3.579.2.7 1957 Unknown [id number] 2.16.840.1.752503.3.579.2.7 1957 Unknown [id number] 2.16.840.1.817836.3.579.2.5 1957 Unknown [id number] 2.16.840.1.002428.3.579.2.5 1957 Unknown [id number] 2.16.840.1.946428.3.579.2.5 93 1957 Unknown [id number] 2.16.840.1.982568.3.579.2.5 93 1957 Unknown [id number] 2.16.840.1.299478.3.579.2.3 56 1957 Unknown [id number] 2.16.840.1.684726.3.579.2.3 56 1957 Unknown [id number] 2.16.840.1.819663.3.579.2.3 56 1957 Unknown [id number] 2.16.840.1.189467.3.579.2.3 56 1957 Unknown [id number] 2.16.840.1.874066.3.579.2.3 56 1957 Unknown [id number] 2.16.840.1.249803.3.579.2.3 56 1957 Unknown [id number] 2.16.840.1.686580.3.579.2.3 56 1957 Unknown [id number] 2.16.840.1.560172.3.579.2.1 244 1957 Unknown [id number] 2.16.840.1.773799.3.579.2.1 244 Unknown Social History Date Type Detail Facility [facility] Tobacco smoking consumption unknown [facility] Start: 07-19-2023 End: 10-04-2023 Never smoker Never smoker [place] [address] DO Work Phone: Comment on above: 2-3 cups of tea dudley y, 1 soda; Start: 05-30-2020 End: 07-19-2023 Tobacco smoking status Never smoked tobacco (finding) [facility] Start: 07-19-2023 End: 10-04-2023 Sex Assigned At Male [facility] Start: 07-19-2023 Tobacco use and exposure Smokeless tobacco non-user [facility] Work Phone: Start: 07-19-2023 End: 10-04-2023 Alcohol intake Current drinker of alcohol (finding) [facility] Work Phone: Start: 07-19-2023 Alcohol Comment occasional beer [facility] Work Phone: Start: 1955 Sex Assigned At Not on file [facility] Work Phone: Start: 07-09-2023 End: 10-04-2023 Exposure to SARS-CoV-2 (event) Not sure [facility] Functional Status Date Assessment Result Facility 03-09-2022 Functional Status N/A [facility] 02-05-2022 Functional Status Yes [facility] 01-23-2022 Functional Status N/A [facility] 12-05-2021 Functional Status N/A [facility] Functional observable [facility] [place] Mental Status Date Assessment Result Facility 10-09-2020 Cognitive functions 31110:[id number] [facility] Clinical Notes 10-07-2020 to 10-04-2023 Margret Stveens MD - 10/04/2023 1:45 PM EDTPatient InstructionsMargret Stevens MD - 07/19/2023 3:00 PM ESTPatient Instructions Note Date & Type Note Facility 10-04-2023 Note Normal sinus rhythm poor R wave progression normal intervals no change compared to previous EKG [facility] 10-04-2023 History of Present illness Narrative This is a follow-up from July 2023. At that visit, dose of Entresto was maximized to 97/103 p.o. twice daily. Orders were placed for blood work to include basic metabolic profile CBC comprehensive profile and lipid profile. Echocardiogram was also ordered. Subjective : Very difficult historian Accompanied by to the office, was not present at last visit Patient did not get the echocardiogram that was ordered last visit. called in to report that patient was more short of breath and developing lower extremity edema I was concerned about recurrence of atrial fibrillation. I ordered Lasix and potassium, however due to persistent symptoms I wanted patient to be seen. No chest pressure tightness or palpitations BMI 53 almost. History so Far : 1. Persistent atrial [...] per 2D echocardiogram dated June 07, 2020, [place] [employer] Association class II, stage B heart failure. 10. Gouty arthritis. Patient remains on allopurinol, no recent recurrence. 11. Abnormal perfusion imaging showing an LV ejection fraction in the 20s, with subsequent cardiac catheterization showing LV ejection fraction of 45%, this was done at [facility] and that particular Catheterization did not [...] This is consistent with chronotropic blunting. 13. [id number] score is 6 14.48-hour Holter monitor-minimum heart [...] reported. Activity log was not provided Objective Wt Readings from Last 3 Encounters: 10/04/23 (!) 167 kg (368 lb) 07/19/23 (!) 166 kg (365 lb) 02/15/23 (!) 169 kg (372 lb) Vitals: 10/04/23 1356 BP: 128/64 BP Location: Right arm Patient Position: Sitting Pulse: 61 Weight: (!) 167 kg (368 lb) Height: 1.778 m (5' 10 ) Physical Exam: GENERAL APPEARANCE: in no acute [...] No gross deformities. EXTREMITIES: Warm There is 1+ edema noted. Meds: Current Outpatient Medications Medication Instructions allopurinol (ZYLOPRIM) 300 mg, oral, Daily aspirin 81 mg chewable tablet 1 tablet, oral, Daily colchicine 0.6 mg, oral, Daily, As needed DULoxetine (CYMBALTA) 60 mg, oral, Daily furosemide (LASIX) 20 mg, oral, 2 times daily magnesium oxide (Mag-Ox) 400 mg (241.3 mg magnesium) tablet 1 tablet, oral, Daily metFORMIN XR (GLUCOPHAGE-XR) 750 mg, oral, Daily modafinil (PROVIGIL) 100 mg, oral, Daily multivitamin tablet 1 tablet, oral, Daily omeprazole (PRILOSEC) 20 mg, oral, Daily Ozempic 0.25 mg or 0.5 mg (2 mg/3 mL) pen injector Once Weekly potassium chloride CR (Klor-Con M20) 20 mEq ER tablet 20 mEq, oral, Daily, Do not crush or chew. rivaroxaban (Xarelto) 20 mg tablet TAKE 1 TABLET BY MOUTH ONCE DAILY WITH BIGGEST MEAL OF THE DAY rosuvastatin (CRESTOR) 20 mg, oral, Daily sacubitriL-valsartan (Entresto) 97-103 mg tablet 1 tablet, oral, 2 times daily sotalol (BETAPACE) 80 mg, oral, 2 times daily spironolactone (ALDACTONE) 25 mg, oral, Daily No Known Allergies Basic metabolic profile 09/09/2023 sodium 137 potassium 4.3 BUN 15 creatinine 0.75 GFR greater than 60 LABS: Lab Results Component Value Date WBC 6.7 10/07/2020 HGB 14.6 10/07/2020 HCT 43.3 10/07/2020 PLT 193 10/07/2020 ALT 31 10/07/2020 AST 23 10/07/2020 NA 139 10/09/2020 K 4.2 10/09/2020 CL 102 10/09/2020 CREATININE 0.97 10/09/2020 BUN 16 10/09/2020 CO2 28 10/09/2020 TSH 1.65 12/31/2021 INR 1.1 10/07/2020 Patient Active Problem List Diagnosis Date Noted Lower leg edema 10/04/2023 Sleep apnea treated with continuous positive airway pressure (CPAP) 10/04/2023 Hypercoagulability due to atrial fibrillation (Multi) 07/19/2023 Medication course changed 07/19/2023 Chronic systolic congestive heart failure, NYHA class 2 (Multi) 07/19/2023 High risk medication use 07/19/2023 Abnormal electrocardiogram 05/05/2023 Atrial fibrillation (Multi) 05/05/2023 CAD (coronary artery disease) 05/05/2023 Cardiomyopathy (Multi) 05/05/2023 COVID-19 05/05/2023 SOB (shortness of breath) 05/05/2023 Assessment: 1. SOB (shortness of breath) Follow Up In Cardiology furosemide (Lasix) 20 mg tablet potassium chloride CR (Klor-Con M20) 20 mEq ER tablet spironolactone (Aldactone) 25 mg tablet Transthoracic Echo Complete Basic Metabolic Panel 2. Edema, unspecified type Follow Up In Cardiology furosemide (Lasix) 20 mg tablet potassium chloride CR (Klor-Con M20) 20 mEq ER tablet spironolactone (Aldactone) 25 mg tablet Basic Metabolic Panel 3. Chronic systolic congestive heart failure, NYHA class 2 (Multi) furosemide (Lasix) 20 mg tablet sacubitriL-valsartan (Entresto) 97-103 mg tablet spironolactone (Aldactone) 25 mg tablet Transthoracic Echo Complete Basic Metabolic Panel 4. Ischemic cardiomyopathy Follow Up In Cardiology sacubitriL-valsartan (Entresto) 97-103 mg tablet Transthoracic Echo Complete Basic Metabolic Panel 5. Coronary artery disease involving hopland coronary artery of hopland heart without angina pectoris 6. Paroxysmal atrial fibrillation (Multi) ECG 12 Lead 7. Lower leg edema 8. High risk medication use 9. Hypercoagulable state due to paroxysmal atrial fibrillation (Multi) 10. Unspecified atrial fibrillation (Multi) sotalol (Betapace) 80 mg tablet rivaroxaban (Xarelto) 20 mg tablet 11. Sleep apnea treated with continuous positive airway pressure (CPAP) 12. Mixed hyperlipidemia rosuvastatin (Crestor) 20 mg tablet 13. Medication course changed Basic Metabolic Panel Clinical decision making: Given history of worsening shortness of breath and lower extremity edema, repeat echocardiogram is necessary Reiterated the importance of continued CPAP therapy. Currently on Ozempic, previously on Trulicity, dose 0.5 mg every week, followed by primary. I will increase the furosemide to 20 mg in the morning 20 mg around 2 PM Add Aldactone 25 mg p.o. daily Basic metabolic profile 1 week after medication change See me after echo to accompany him to all office visits. Reiterated the importance of bringing in medications Correct medication list to the office Follow up : after testing Provider Attestation - Scribe documentation All medical record entries made by the Scribe were at my direction and personally dictated by me. I have reviewed the chart and agree that the record accurately reflects my personal performance of the history, physical exam, discussion and plan. documented in this encounter [facility] Work Phone: 10-04-2023 Instructions Judy Guillaume CMA - 10/04/2023 1:45 PM EDT Please bring all medicines, vitamins, and herbal supplements with you when you come to the office. Prescriptions will not be filled unless you are compliant with your follow up appointments or have a follow up appointment scheduled as per instruction of your physician. Refills should be requested at the time of your visit. EKG done in office today documented in this encounter [facility] Work Phone: 07-19-2023 History of Present illness Narrative This [...] per 2D echocardiogram dated June 07, 2020, [place] [employer] Association class II, stage B heart failure. 10. Gouty arthritis. Patient remains on allopurinol, no recent recurrence. 11. Abnormal perfusion imaging showing an LV ejection fraction in the 20s, with subsequent cardiac catheterization showing LV ejection fraction of 45%, this was done at [facility] and that particular Catheterization did not [...] This is consistent with chronotropic blunting. 13. [id number] score is 6 14.48-hour Holter monitor-minimum heart [...] redirect to the Timeline version of the REVFS SmartLink. Wt Readings from Last 3 Encounters: [...] Date Noted Hypercoagulability due to atrial fibrillation (CMS/HCC) 07/19/2023 Medication course changed 07/19/2023 Chronic systolic congestive heart failure, NYHA class 2 (CMS/HCC) 07/19/2023 High risk medication use 07/19/2023 Abnormal electrocardiogram 05/05/2023 Atrial fibrillation ([facility]/HCC) 05/05/2023 CAD (coronary artery disease) 05/05/2023 Cardiomyopathy (CMS/HCC) 05/05/2023 COVID-19 05/05/2023 SOB (shortness of breath) 05/05/2023 Assessment: 1. Paroxysmal atrial fibrillation (CMS/HCC) Follow Up In Cardiology ECG 12 Lead CBC Comprehensive Metabolic Panel CBC Comprehensive Metabolic Panel 2. Coronary artery disease involving hopland coronary artery of hopland heart without angina pectoris Follow Up In [...] Attestation By signing my name below, I, Clarisa Acosta LPN , Scribe attest that this documentation has been prepared under the direction and in the presence of Margret Stevens MD. documented in this encounter [facility] Work Phone: 07-19-2023 Instructions Clarisa Quintanilla [...] Increase physical activity. documented in this encounter [facility] Work Phone: 05-07-2023 Evaluation note Encounter [...] the ER for worsening symptoms or concerns [facility] Other 10-09-2023 Evaluation note* Encounter Date Diagnosis [...] as directed. Feb, Coronary artery disease involving hopland coronary artery of hopland heart without angina pectoris (ICD-10 - I25.10) Continue care w [facility] Feb, GAYLE (obstructive sleep apnea) (ICD-10 - G47.33) Continue care w Dr. Noble. [facility] Other 05-01-2023 History of Present illness Narrative* [...] per 2D echocardiogram dated June 07, 2020, [place] [employer] class II, stage B heart failure. * 10. Gouty arthritis. Patient remains on allopurinol, no recent recurrence. * 11. Abnormal perfusion imaging showing an LV ejection fraction in the 20s, with subsequent cardiac catheterization showing LV ejection fraction of 45%, this was done at [facility] and that particular Catheterization did not [...] is consistent with chronotropic blunting. * 13. [id number] score is 6 * Laboratory data from [...] prohibitively expensive-pleaseconsider Uriel or Juan-defer to primary/endocrinology. -[facility]-Carla French DO Work Phone: 1(147) 773-201605-01-2023 History of Present illness Narrative* Patient was [...] per 2D echocardiogram dated June 07, 2020, [place] [employer] class II, stage B heart failure. * 10. Gouty arthritis. Patient remains on allopurinol, no recent recurrence. * 11. Abnormal perfusion imaging showing an LV ejection fraction in the 20s, with subsequent cardiac catheterization showing LV ejection fraction of 45%, this was done at [facility] and that particular Catheterization did not [...] is consistent with chronotropic blunting. * 13. [id number]-CIYd score is 6 * Laboratory data from [...] prohibitively expensive-pleaseconsider Ozempic or Rybelsus-defer to primary/endocrinology. -[facility]-Carla 250 DO Work Phone: [phone]) 750-935305-01-2023 History of Present illness Narrative* Patient was [...] per 2D echocardiogram dated June 07, 2020, [place] [employer] class II, stage B heart failure. * 10. Gouty arthritis. Patient remains on allopurinol, no recent recurrence. * 11. Abnormal perfusion imaging showing an LV ejection fraction in the 20s, with subsequent cardiac catheterization showing LV ejection fraction of 45%, this was done at [facility] and that particular Catheterization did not [...] is consistent with chronotropic blunting. * 13. [id number]-MZMh score is 6 * Laboratory data from [...] prohibitively expensive-pleaseconsider Uriel or Juan-defer to primary/endocrinology. -[facility]-[place] 250 DO Work Phone: [phone]) 147-268704-01-2023 History of Present illness Narrative* Patient with [...] per 2D echocardiogram dated June 07, 2020, [place] [employer] class II, stage B heart failure. * 10. Gouty arthritis. Patient remains on allopurinol, no recent recurrence. * 11. Abnormal perfusion imaging showing an LV ejection fraction in the 20s, with subsequent cardiac catheterization showing LV ejection fraction of 45%, this was done at [facility] and that particular Catheterization did not [...] for his unrelenting fatigue and foggy brain. -[facility]Carla 250 DO Work Phone: 1(647) 717-368801-16-2023 Evaluation note* Encounter Date Diagnosis Assessment Notes Treatment Notes Treatment Clinical Notes May, Type 2 diabetes mellitus with hyperglycemia, without long-term current use of insulin (ICD-10 - E11.65) chronic problem - may increase or add med based on lab results May, Essential (primary) hypertension (ICD-10 - I10) chronic and controlled adequately at this time. May, Coronary artery disease involving hopland coronary artery of hopland heart without angina pectoris (ICD-10 - I25.10) May, BMI 50.0-59.9, adult (ICD-10 - Z68.43) Pt is encouraged to lose weight, change diet, and increase exercise as tolerated. [facility] Other 09-12-2022 Note [id number]:127[facility] 02-05-2022 Evaluation + Plan noteExtracted from: Title:Procedure [...] Laboratory* Basic Metabolic Panel 06/06/21 [facility]09-08-2022 Hospital Discharge instructions Patient Education 02/05/2022 10:35:09 CV - Cardiovascular Discharge Instructions (CUSTOM) [place], [place] CARDIOVASCULAR DISCHARGE INSTRUCTIONS Diet: Resume pre-procedure [...] hours post procedure: Actoplus MetGlucophageGlucophage XR GlucovanceAvandametFortamet Dno-khacycsjhHksopsFcdi-ngrybasyt GlumetzaJanumetMetaglip RiometGlycomet *Minimal pain, soreness and/or discomfort [...] you are interested in smoking cessation, contact [facility] at [phone], ext. [phone]. In the event you are unable to reach your physician, please call [facility] at [phone] and the washer and capper machine operator will assist you. Seek Immediate Medical Care for: Bleeding: Apply continuous pressure to the site and Call 911. Should the arm or leg become cold, numb, blue or white call your physician immediately. Signs of infection are redness, warmth, swelling, increased tenderness, colored drainage, fever or chills Chest pain Follow Up Care 01/27/2022 09:04:57 With:Kushal Page Address: [address] [place] [phone] Business (1) When:03/09/2022 11:15:00 [facility]09-08-2022 NoteProcedure The risk/benefits of the procedure were [...] Education Routine Capillary Glucose POC Saline Lock InsertChillicothe Va Medical CenterComment on above:Result Comment: Electronically Signed By: Camilo STARK, Kushal Moran.rita\Date and Time Signed: 02/05/22 06:47 [id number] Evaluation + Plan note Future Scheduled Tests Laboratory* Basic Metabolic Panel 06/06/21 [facility]05-12-2021 Hospital Discharge instructions* Follow Up Appointment 1:Physician/Dept/Service[facility]Scheduled Date/Time: [id number]: [facility] [place] officePhone Number: [phone] [facility]05-10-2021 History of Present illness Narrative* 65-year-old male who is followed for persistent atrial fibrillation. He underwent antiarrhythmic drug loading with sotalol October 07, 2020 and presents to the office today for follow-up evaluation. His carvedilol was discontinued due to heart rates in the 40s post drug loading. He did require cardioversion on October 09, 2020 for buddhism of sinus rhythm. * Since the last [...] per 2D echocardiogram dated June 07, 2020, [place] Heart Association class II, stage B heart [...] software was utilized to prepare this document. [facility] [employer] [address] DO Work Phone: 1([phone]) 351-340005-10-2021 History of Present illness Narrative* 65-year-old male who is followed for persistent atrial fibrillation. He underwent antiarrhythmic drug loading with sotalol October 07, 2020 and presents to the office today for follow-up evaluation. His carvedilol was discontinued due to heart rates in the 40s post drug loading. He did require cardioversion on October 09, 2020 for buddhism of sinus rhythm. * Since the last [...] per 2D echocardiogram dated June 07, 2020, [place] Heart Association class II, stage B heart [...] software was utilized to prepare this document. [facility] Work Phone: Evaluation + Plan note Future Appointments Appointment Date:01/23/2022 03:00:00 PM Scheduled Provider:Kushal Page MD Location:[facility].Cardiology Clinic Appointment Type:Cardiology Follow Up ([facility]) Future Scheduled Tests Laboratory* Basic Metabolic Panel 06/06/21 Radiology* NM Myocardial Spect Rest/Stress 2 Day [facility] Future Appointments Appointment Date:02/05/2022 08:00:00 AM Scheduled Provider: Location:[facility] Appointment Type:CV Heart Cath (FT) Future Scheduled Tests Laboratory* Basic Metabolic Panel 06/06/21 Radiology* CV [facility] Future Appointments Appointment Date:09/08/2022 03:15:00 PM Scheduled Provider:Kushal Page MD Location:[facility].Cardiology Clinic Appointment Type:Cardiology Follow Up (FT) Future Scheduled Tests Laboratory* Basic Metabolic Panel 06/06/21 [facility] note* Musculoskeletal: ROM intact, no joint swelling, [...] wounds, or clubbingPsychological: Appropriate mood and behavior [facility] noteNo [employer] [employer] Other Evaluation note* Diagnosis Paroxysmal atrial fibrillation (CMS/HCC) Atrial fibrillation Coronary artery disease involving hopland coronary artery of hopland heart without angina pectoris Ischemic cardiomyopathy Other specified forms of chronic ischemic heart disease Chronic systolic congestive heart failure, NYHA class 2 (CMS/HCC) Hypercoagulable state due to paroxysmal atrial fibrillation (CMS/HCC) Medication course changed Mixed hyperlipidemia High risk medication use documented in this encounter [facility] Work Phone: Evaluation note* Diagnosis SOB (shortness of breath) Shortness of breath Edema, unspecified type Chronic systolic congestive heart failure, NYHA class 2 (Multi) Ischemic cardiomyopathy Other specified forms of chronic ischemic heart disease Coronary artery disease involving hop[place] coronary artery of hop[place] heart without angina pectoris Paroxysmal atrial fibrillation (Multi) Atrial fibrillation Lower leg edema High risk medication use Hypercoagulable state due to paroxysmal atrial fibrillation (Multi) Unspecified atrial fibrillation (Multi) Sleep apnea treated with continuous positive airway pressure (CPAP) Mixed hyperlipidemia Medication course changed documented in this encounter [facility] Work Phone: History general Narrative - Reported* Type Description Date Medical History Gout Medical History Depression Medical History HTN Medical History stroke Medical History Atrial fibrillation Medical History DM Surgical History Back surgery Surgical History Hernia Surgical History Mass removed from skin of neck Surgical History heart cath with stent placed Hospitalization History See past surgical hx Hospitalization History Stroke 05/2019 [facility] Other History of Present illness Narrative* Patient is new to this provider, he is accompanied by his who works at [employer] in the cafeteria. Prior records were [...] function test, and Lexiscan stress test at [facility]. He states he has absolutely no energy and is easily fatigued, he is short of breath and he has a nonproductive cough. He denies fever or chills. He isaccompanied by his who questions whether he may change his cardiology follow-up to [facility] due to proximity to home. * Patient wishes to establish care at [facility]. Predominant complaints are unrelenting fatigue, [...] per 2D echocardiogram dated June 07, 2020, [place] [employer] class II, stage B heart failure. * 10. Gouty arthritis. Patient remains on allopurinol, no recent recurrence. * 11. Abnormal perfusion imaging showing an LV ejection fraction in the 20s, with subsequent cardiac catheterization showing LV ejection fraction of 45%, this was done at [facility] and that particular Catheterization did not [...] * 2. Discontinue losartan and start Entresto 24/ p.o. twice daily. * 3. Patient to [...] ALT and AST mildly elevated hemoglobin 13.4. [facility] Work Phone: History of Present illness Narrative* Patient with atherosclerotic hopland vessel coronary artery disease, multiple cardiac risk [...] per 2D echocardiogram dated June 07, 2020, [place] [employer] class II, stage B heart failure. * 10. Gouty arthritis. Patient remains on allopurinol, no recent recurrence. * 11. Abnormal perfusion imaging showing an LV ejection fraction in the 20s, with subsequent cardiac catheterization showing LV ejection fraction of 45%, this was done at [facility] and that particular Catheterization did not [...] will defer to sleep medicine * Recommendations: -[facility]-Carla French DO Work Phone: History of Present illness Narrative* Patient with atherosclerotic hopland vessel coronary artery disease, multiple cardiac risk [...] per 2D echocardiogram dated June 07, 2020, [place] [employer] class II, stage B heart failure. * 10. Gouty arthritis. Patient remains on allopurinol, no recent recurrence. * 11. Abnormal perfusion imaging showing an LV ejection fraction in the 20s, with subsequent cardiac catheterization showing LV ejection fraction of 45%, this was done at [facility] and that particular Catheterization did not [...] will defer to sleep medicine * Recommendations: [facility] Work Phone: Hospital course Narrative No data available for this section [facility] No data available for this section [facility] note No data available for this section [facility] Chief Complaint Patient is here today for [...] function test, and Lexiscan stress test at [facility]. He states he has absolutely no energy andis easily fatigued, he is short of breath and he has a nonproductive cough. He denies fever or chills. He is accompanied by his who questions whether he may change his cardiology follow-up to [facility] due to proximity to home. * Physical [...] per 2D echocardiogram dated June 07, 2020, [place] [employer] class II, stage B heart failure. * 10. Gouty arthritis. * Recommendations: * 1. Continue current medications as prescribed. * 2. I discussed with the patient that he may follow-up with a educational psychologist in [facility] as requested. He was instructed to notify [facility] if he requires any medical records to [...] Referral Specialty Diagnoses / Procedures Referred By Contac t Referred To Contact Cardiology Diagnoses SOB (shortness of breath) Chronic systolic congestive heart failure, NYHA class 2 (Multi) Ischemic cardiomyopathy Procedures Transthoracic Echo Complete KS ECHO TTHRC R-T 2D W/WOM-MODE COMPL SPEC&COLR D Margret Stevens MD [address] [place] [address] Referral ID Status Reason Start Date Expiration Date Visits Requested Visits Authorized [id number] Pending Review Perform Procedure 10/04/2023 10/03/2024 1 1 Specialty Diagnoses / Procedures Referred By Contac t Referred To Contact Diagnoses Paroxysmal atrial fibrillation (Multi) Procedures ECG 12 Lead Margret Stevens MD [address] [place] [address] Referral ID Status Reason Start Date Expiration Date V isits Requested Visits Authorized [id number] Authorized 10/04/2023 10/03/2024 1 1 Specialty Diagnoses / Procedures Referred By Contac t Referred To Contact Cardiology Diagnoses Ischemic cardiomyopathy Procedures Follow Up In Cardiology Margret Stevens MD [address] [place] [address] Margret Stevens MD [address] [place] [address] Referral ID Status Reason Start Date Expiration Date V isits Requested Visits Authorized [id number] Authorized 10/04/2023 10/03/2024 1 1 Specialty Diagnoses / Procedures Referred By Contac t Referred To Contact Cardiology Diagnoses Ischemic cardiomyopathy Chronic systolic congestive heart failure, NYHA class 2 (CMS/HCC) Procedures Transthoracic Echo Complete KS ECHO TTHRC R-T 2D W/WOM-MODE COMPL SPEC&COLR D Margret Stevens MD [address] [place] [address] Referral ID Status Reason Start Date Expiration Date Visits Requested Visits Authorized [id number] Pending Review Perform Procedure 07/19/2023 07/18/2024 1 1 Specialty Diagnoses / Procedures Referred By Contac t Referred To Contact Diagnoses Paroxysmal atrial fibrillation (CMS/HCC) Procedures ECG 12 Lead Margret Stevens MD [address] [place] [address] Referral ID Status Reason Start Date Expiration Date V isits Requested Visits Authorized [id number] Authorized 07/19/2023 07/18/2024 1 1 Specialty Diagnoses / Procedures Referred By Contac t Referred To Contact Cardiology Diagnoses Paroxysmal atrial fibrillation (CMS/HCC) Coronary artery disease involving [place] coronary artery of [place] heart without angina pectoris Ischemic cardiomyopathy Procedures Follow Up In Cardiology Margret Stevens MD [address] [place] [address] Margret Stevens MD [address] [place] [address] Referral ID Status Reason Start Date Expiration Date V isits Requested Visits Authorized [id number] Authorized 07/19/2023 07/18/2024 1 1 Reason 07/06/22 [facility]la office, scanning recent documents we have from [facility], but we do not have all of them Diagnosis 1 Coronary artery dise ase involving hop[place] coronary artery of [place] heart without angina pectoris (I25.10) Referral Organization [facility] conrad Referring Provider First Name Beena Referring Provider Last Name Jeyson Referring Provider Specialty Family [facility] Referred Organization [facility] Referred Provider Albaro Au Referred Address [address] [place],[address] Referred Provider Specialty Internal Med icine Referral Priority Routine Referral Appointment Date 2022-07-06 General Notes Gerri Davis 11:54:25 AM >received today, ins card attached along with previous [facility] note. referral faxed to Gerri Stapleton 06/25/2022 09:09:11 AM >faxed first attempt letter Gerri Davis 06/25/2022 01:02:50 PM >received fax with appt date and time RyanLesterya 07/07/2022 02:57:10 PM >notes in patient docs. [...] section and content) DATE CREATED AUTHOR 07/24/2021 [facility] DATE CREATED AUTHOR AUTHOR'S ORGANIZ ATION 09/12/2022 [facility] DATE CREATED AUTHOR AUTHOR'S ORGANIZ ATION 09/26/2022 [facility] DATE CREATED AUTHOR AUTHOR'S ORGANIZ ATION 11/06/2022 [facility] DATE CREATED AUTHOR AUTHOR'S ORGANIZ ATION 02/16/2023 [employer] DATE CREATED AUTHOR AUTHOR'S ORGANIZ ATION 02/16/2023 [facility] DATE CREATED AUTHOR AUTHOR'S ORGANIZ ATION 10/05/2023 [facility] [employer] (unrecognized sect ion and content) Clinical Research Nurse Relationship Specialty Start Date End Date Beena Benítez MD [address] [place] [address] [address] [place] [address] PCP - General Family Medicine 07/19/23 Clinical Research Nurse Relationship Specialty Start Date End Date Beena Benítez MD PCP - General Family Medicine 07/19/23 REASON FOR VISIT (unrecogniz ed section and content) Reason Comments Follow-up 5 month Specialty Diagnoses / Procedures Referred By Contac t Referred To Contact Diagnoses Paroxysmal atrial fibrillation (CMS/HCC) Procedures ECG 12 Lead Margret Stevens MD [address] [facility] [address] [place] [address] Referral ID Status Reason Start Date Expiration Date V isits Requested Visits Authorized [id number] Authorized 07/19/2023 07/18/2024 1 1 Reason Comments Follow-up Sooner OV - last wed lower edema, med change Specialty Diagnoses / Procedures Referred By Contac t Referred To Contact Cardiology Diagnoses SOB (shortness of breath) Edema, unspecified type Procedures Follow Up In Cardiology Margret Stevens MD [address] [facility] [address] [place] [address] Margret Stevens MD [address] [facility] [address] [place] [address] Referral ID Status Reason Start Date Expiration Date V isits Requested Visits Authorized [id number] Authorized 09/23/2023 09/22/2024 1 1 FOR RECORDS PERTAINING TO PATIENTS [...] BE BASED ON THE PRIMARY CLINICAL RECORDS. [employer] provides no warranty or guarantee of the accuracy or completeness of information in this document.
[2023-10-14 08:01] LABS: Anion Gap 13.4; Calcium 9.4 mg/dL (8.5-10.1); Carbon Dioxide 28.1 mmol/L (21.0-32.0); Chloride 100 mmol/L (98-107); Estimated GFR (African America >60 (>=60); Estimated GFR (Non-African Ame >60 (>=60); Glucose 164 mg/dL (74-106); Potassium 4.5 mmol/L (3.5-5.1); Sodium 137 mmol/L (136-145)
== END 2023-10-14 07:22 | disposition home or self-care (01) ==
LOC: LAB 07:22
PROVIDERS: PCP Family Medicine
DX: R06.02 Shortness of breath (principal); R60.9 Edema, unspecified; I50.22 Chronic systolic (congestive) heart failure; I25.5 Ischemic cardiomyopathy; Z79.899 Other long term (current) drug therapy
CPT/HCPCS: 36415; 80048

== ENCOUNTER 2023-11-08 10:02 | Emergency (ER) | payer MEDICARE, SELFPAY ==
[2023-11-08 10:06] VITALS: BP 149/85; PULSE 68; TEMP 36.7; O2SAT 98; BMI 53.4
--- NOTE | 2023-11-08 10:18 | PC.NURSE ---
patient reports left lower leg pain. Initially, patient states the left leg woke him up night, around the achilles and heel, due to pain. patient states pain has continued. patient is on xarelto daily for atrial fibrillation. patient denies injury to leg
--- OUTSIDE RECORDS SUMMARY | 2023-11-08 10:31 | XMS_ITS | CCD ---
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 Name Role Phone Beena Benítez Unavailable Adam [...] tom ANTONIO, DR LORENA Banks Consulting Unavailable SAMSA .TOÑA Admitting Unavailable SAMSA .TOÑA Attending Unavailable SAMSA .TOÑA Consulting Unavailable MISC, DR FLORES Attending [...] Medication Allergies] Propensity to adverse reactions (disorder) [facility] Repository (10 sources) dapagliflozin; Translations: [Farxiga TABS] Drug Allergy [address] Work Phone: Medications Current Medications Medication [...] day(s), # 90 tab(s), Refills(s) 3, Pharmacy: [facility]/pharmacy #[id number], 178, cm, 01/23/22 14:05:00 EDT, Height/Length Dosing, 170, kg, 01/23/22 14:05:00 EDT, Weight Dosing Start Date: 01/24/22 Stop Date: 01/19/23 Status: Ordered Start: 01-23-2022 take 4 tablets by mouth once P lavix 75 mg Tab 300 mg = 4 tab(s), Oral, Once, 300 mg Loading Dose, # 4 tab(s), Refills(s) 0, Pharmacy: [facility]/pharmacy #[id number], 178, cm, 01/23/22 14:05:00 [...] Daily Quantity: 45 Refills: 3 Ordered: 06-Jul-2022 Rodney STARK Margret Start : 06-Jul-2022 Active dose decreased Start: 07-01-2021 End: 04-09-2023 take 1 tablet by mouth once daily furosemide 20 mg Tab 20 mg = 1 tab(s), Oral, Daily, X 90 day(s), # 90 tab(s), Refills(s) 3, [id number], 179, cm, 03/09/22 11:22:00 EDT, Height/Length [...] day(s), # 180 tab(s), Refills(s) 3, [id number], 178, cm, 06/20/21 9:09:00 EST, Height/Length [...] DAY Quantity: 180 Refills: 0 Ordered: 17-Aug-2022 Herman Stevens MDtha Start : 06-Jul-2022 Active stop losartan/ new [...] 05-17-2020 take 2 tablets by mo [facility] at bedtime atorvastatin 40 mg Tab 80 mg = 2 tab(s), Oral, Bedtime, Refills(s) 0, High cholesterol Start Date: 05/17/20 Status: Ordered Atorvastatin Davide cium Not-Taking take 1 tablet by inocencio once daily Atorvastatin Calcium 10 MG Oral [...] DAY Quantity: 90 Refills: 3 Ordered: 21-Dec-2022 Jonathon GIL-PACS SPECIALIST, Kaity Start : 21-Dec-2022 Active Start: 10-09-2020 Magnesium [...] [Coronary atherosclerosis of unspecified type of vessel, [place] or graft] Onset: 09-10-2022 Chronic Coronary atherosclerosis [...] 07-19-2023 Episodic Other aftercare (3 sources) Other skilled nursing (current) drug therapy; Translations: [OTH DESK OPERATOR CURRENT DRUG THERAPY] Onset: 10-28-2022 Episodic Other aftercare (1 source) skilled nursing (current) use of anticoagulants; Translations: [SNF CURRNT USE ANTICOAGULANTS] Onset: 10-28-2022 Episodic Other aftercare (4 sources) Taking high risk medication; Translations: [Other skilled nursing (current) drug therapy] Onset: 07-19-2023 07-19-2023 Episodic [...] Reference Range Facility ECG 12 [place] 10-04-2023 [facility] Work Phone: [facility] Work Phone: ECG 12 [place] 08-16-2023 [facility] Work Phone: Office Visit (Cardiology)on 02-15-2023 Follow-up [...] Metabolic Panel; Status:Active - Retrospective Authorization; Requested for:[id number]; Abnormal EKG, Fatigue, High risk medication use, Hyperlipidemia Complete Blood Count; Status:Active - Retrospective Authorization; Requested for:[id number]; Atrial fibrillation IO EKG Electrocardiogram- 12 Lead; Status:Complete; Done: [id number] Morbid obesity with BMI of 50.0-59.9, adult Healthy Weight Tips; Status:Complete - Retrospective Authorization; Done: [id number] Some eating tips that can help you lose weight.; Status:Complete - Retrospective Authorization; Done: [id number] SocHx: Never smoker Tobacco Use Screening; Status:Complete; Done: [id number] Patient Instructions Please bring all medicines, vitamins, [...] per 2D echocardiogram dated June 07, 2020, [place] Heart Association class II, stage B heart failure. 10. Gouty arthritis. Patient remains on allopurinol, no recent recurrence. 11. Abnormal perfusion imaging showing an LV ejection fraction in the 20s, with subsequent cardiac catheterization showing LV ejection fraction of 45%, this was done at [facility] and that particular Catheterization did not [...] This is consistent with chronotropic blunting. 13. [id number] score is 6 14.48-hour Holter monitor-minimum heart rate 46 bpm average heart rate 66 bpm maximum heart rate 99 bpm ventricular patience (more content not included)... Normal [employer] Tobacco Screening.on 023 Fall risk assessment b) One or more fall s in the last year [facility] [facility] [address] DO Work Phone: Tobacco use status CP b) No -[facility] [facility] 250 DO Work Phone: Cardiovasc Arrhythmia Result son 11-30-2022 Cardiovasc Arrhythmia Results Reason For Visit Reason for Visit: Holter Monitor: LORENA is here for the application of a 48 hour Holter monitor. Ordering Physician: Dr. Margret Stevens MD Diagnosis: a-fib NO equipment agreement signed. LORENA understands monitor is to be returned on: 12/02/2022 Monitor number [id number] applied. Holter monitor returned and downloaded. Holter monitor returned and downloaded. 12/03/2022 Holter monitor printed and emailed to [facility] and placed on Dr. Margret Stevens MD [...] Appointments Date/TimeProviderSpeci altySite 02/15/2023 12:30 PMMargret Stevens, [id number] [facility] [address] 250 DO Signatures Electronically signed by : Margret Stevens MD; Feb 15 2023 2:58PM EST (Author) Normal [employer] Office Visit (Cardiology)on 11-23-2022 Follow-up visit Diagnoses/Problems [...] Metabolic Panel; Status:Active - Retrospective Authorization; Requested for:[id number]; Morbid obesity with BMI of 50.0-59.9, adult [...] EKG shows sinus rhythm at 82 bpm NM interval 158 ms QRS duration 102 ms [...] per 2D echocardiogram dated June 07, 2020, [place] Heart Association class II, stage B heart failure. 10. Gouty arthritis. Patient remains on allopurinol, no recent recurrence. 11. Abnormal perfusion imaging showing an LV ejection fraction in the 20s, with subsequent cardiac catheterization showing LV ejection fraction of 45%, this was done at [facility] and that particular Catheterization did not [...] This is consistent with chronotropic blunting. 13. [id number] score is 6 Laboratory data from September 2022 s (more content not included)... Normal [employer] Tobacco Screening.on 023 Adult depression screening assessment No [facility] [facility] 250 DO Work Phone: Fall risk assessment a) No falls within the last year [facility] [facility] 250 DO Work Phone: Tobacco use status [facility] b) No [facility] [facility] 250 DO Work Phone: BNPon 10-27-2022 Natriuretic peptide B (Bld) [Mass/Vol] 80.0 pg/mL Normal <=900.0 [facility] Comment on above: Performed By: #### B MANAGER USER INTERFACE, CK, TSH #### [facility] [address] [address] [address] Maria T Canela CPKon 10-27-2022 CK [Catalytic activity/Vol] 302 U/L Normal 39-308 [facility] Comment on above: Performed By: #### B MANAGER USER INTERFACE, CK, TSH #### [facility] [address] [address] [address] Maria T Canela FREE T4on 10-27-2022 Free T4 [Mass/Vol] 0.87 ng/dL Normal 0.76-1.46 [facility] Comment on above: Performed By: #### F T4 ####[facility] [address] [address]Dr. Maria T Canela GLYCOHEMOGLOBIN A1Con 2022 ADA RECOMMENDATION SEE BELOW Normal [facility] Comment on above: Result Comment: ADA RECOMMENDED LIMIT 4.0 - 6.0 ADA THERAPEUTIC TARGET < 7.0 ACTION SUGGESTED > 7.0 Performed By: #### A 1C #### [facility] [address] [place] [address] Dr. Maria T Canela Glucose [Mass/Vol] 169 mg/dL Normal [facility] Comment on above: Performed By: #### A 1C #### [facility] [address] [place] [address] Dr. Maria T Canela HbA1c (Bld) [Mass fraction] 7.5 % Critically high 4.5-6.2 [facility] Comment on above: Performed By: #### A 1C #### [facility] [address] [address] [address] Maria T Canela SED RATE WESTERGRENon 2022 SED RATE 15 mm/hr Normal <=20 [facility] Comment on above: Performed By: #### S EDR ####[facility] [address] [place], [place] [address]YhDr. Maria T Canela TSHon 10-27-2022 TSH 1.477 uIU/mL Normal 0.358-3.740 [facility] Comment on above: Performed By: #### B MANAGER USER INTERFACE, CK, TSH #### [facility] [address] [place], [place] [address] Dr. Maria T Canela Office Visit (Cardiology)on [...] Thyroxine, Serum; Status:Active - Retrospective Authorization; Requested for:[id number]; TSH - Thyroid Stimulating Hormone, Serum; Status:Active [...] per 2D echocardiogram dated June 07, 2020, [place] Heart Association class II, stage B heart failure. 10. Gouty arthritis. Patient remains on allopurinol, no recent recurrence. 11. Abnormal perfusion imaging showing an LV ejection fraction in the 20s, with subsequent cardiac catheterization showing LV ejection fraction of 45%, this was done at [facility] and that particular Catheterization did not show any flow-limiting disease. The perfusion study was done in December 2021, cardiac catheterization from January 2022 showed nonobstructive coronary artery disease of the left system widely patent RCA stent LVEF 45% moderately dilated left ventricular chamber dimension mildly elevated L (more content not included)... Normal [employer] Tobacco Screening.on 023 Tobacco use status [facility] b) No MP-[facility] y 250 DO Work Phone: Heart and [...] in office. He had echocardiogram performed at [facility], which was normal. He was ordered Event [...] protocol. [1] patient was then referred to [place] and was placed on sotalol followed by [...] progressive dry (more content not included)... Normal [facility] Comment on above: Result Comment: Elec tronically Signed By: Camilo STARK, Kushal Galarza Other Comment: Appar ent pt no show Cardiac Stress Teston 2022 Cardiac Stress Test [address], [address] [place] [address] Exercise Stress Test Patient Name: LORENA CAMPOS Ordering Physician: [id number] Margret Stevens Study Date: 09/10/2022 Reading Physician: [id number] Kim Mckeon MD, [facility] MRN/PID: [id number] Supervising Physician: [id number] Kim Mckeon MD, [facility] Accession/Order#: [id number] Referring Physician: MARGRET STEVENS Date of : 1955 PCP: Beena Benítez Gender: M Fellow: Height: 177.80 cm Nurse: Tigre De La Rosa RN Weight: 168.74 kg Apartment Leasing Agent: ROB BSA: 2.72 m2 Technologist: BMI: 53.38 kg/m2 Additional Staff: Age: 66 years cc report to: Patient Location: cc report to: [id number] Margret Stevens Study Type: Cardiac Stress Test Diagnosis/ICD: R94.31-Abnormal electrocardiogram [ECG] [EKG]; I25.10-Atherosclerotic heart disease; I42.9-Cardiomyopathy, unspecified; I50.9-Heart failure, unspecified; R06.02-Shortness of breath Indication: Cardiomyopathy Procedure/CPT: Stress Test Interpretation-[id number]; Stress Test Supervision-[id number] Falls Risk: Low: Patient has low risk [...] The adequate level of stress was achieved. [id number] Kim Mckeon MD, [facility] Electronically signed on 09/10/2022 at 6:25:43 PM Final Normal [facility] Cardiac Stress Test [facility] [facility] 250 DO Work Phone: Office [...] History of Present Illness Patient with atherosclerotic [place] vessel coronary artery disease, multiple cardiac risk [...] per 2D echocardiogram dated June 07, 2020, [place] Heart Association class II, stage B heart failure. 10. Gouty arthritis. Patient remains on allopurinol, no recent recurrence. 11. Abnormal perfusion imaging showing an LV ejection fraction in the 20s, with subsequent cardiac catheterization showing LV ejection fraction of 45%, this was done at [facility] and that particular Catheterization did not show any flow-limiting disease. The perfusion study was done in December 2021, cardiac catheterization from January 2022 showed nonobstructive coronary a (more content not included)... Normal [employer] Tobacco Screening.on 023 Fall risk assessment c) Not medically indicated -[facility] [facility] 250 DO Work Phone: Tobacco use status [facility] b) No -[facility] [facility] 250 DO Work Phone: BNPon 07-20-2022 Natriuretic peptide B (Bld) [Mass/Vol] 72.0 pg/mL Normal <=900.0 [facility] Comment on above: Performed By: #### B MP, BNP ####[facility] [address] [place], [place] [address]Dr. Maria T Canela PROF CHEM 8 (BAS METB)on Anion gap [Moles/Vol] 11.8 mmol/L Normal [facility] Comment on above: Performed By: #### B MP, BNP ####[facility] [address] [place], [place] [address]Dr. Maria T Canela Calcium [Mass/Vol] 9.2 mg/dL Normal 8.5-10.1 [facility] Comment on above: Performed By: #### B MP, BNP ####[facility] [address] [address]Dr. Maria T Canela Chloride [Moles/Vol] 101 mmol/L Normal 98-107 [facility] Comment on above: Performed By: #### B MP, BNP ####[facility] [address] [address]Dr. Maria T Canela CO2 [Moles/Vol] 28.1 mmol/L Normal 21.0-32.0 [facility] Comment on above: Performed By: #### B MP, BNP ####[facility] [address] [address]DrKami Canela Creatinine [Mass/Vol] 0.82 mg/dL Normal 0.70-1.30 [facility] Comment on above: Performed By: #### B MP, BNP ####[facility] [address] [address]Dr. Maria T Canela EGFR-AF TAIWANESE >60 Normal >=60 [facility] Comment on above: Performed By: #### B MP, BNP ####[facility] [address] [address]Dr. Maria T Canela EGFR-NON AF TAIWANESE >60 Normal >=60 [facility] Comment on above: Performed By: #### B MP, BNP ####[facility] [address] [place], [place] [address]Dr. Maria T Canela Glucose [Mass/Vol] 190 mg/dL Critically high 74-106 [facility] [place] Comment on above: Performed By: #### B MP, BNP ####[facility] [address] [place], [place] [address]Dr. Maria T Canela Potassium [Moles/Vol] 4.9 mmol/L Normal 3.5-5.1 [facility] Comment on above: Performed By: #### B MP, BNP ####[facility] [address] [place], [place] [address]Dr. Maria T Canela Sodium [Moles/Vol] 136 mmol/L Normal 136-145 [facility] Comment on above: Performed By: #### B MP, BNP ####[facility] [address] [place], [place] [address]Dr. Maria T Canela Urea nitrogen [Mass/Vol] 13.0 mg/dL Normal 7.0-18.0 [facility] Comment on above: Performed By: #### B MP, BNP ####[facility] [address] [place], [place] [address]Dr. Maria T Canela Urea nitrogen/Creatinine [Mass ratio] 15.9 mg/mg Normal [facility] Comment on above: Performed By: #### B MP, BNP ####[facility] [address] [place], [place] [address]Dr. Maria T Canela Office Visit (Cardiology)on 07-06-2022 [...] Metabolic Panel; Status:Active - Retrospective Authorization; Requested for:[id number]; Brain Natriuretic Peptide BNP; Status:Active - Retrospective Authorization; Requested for:[id number]; CHF (NYHA class II, ACC/AHA stage C) [...] is accompanied by his who works at [facility] in the cafeteria. Prior records were reviewed, [...] function test, and Lexiscan stress test at [facility]. He states he has absolutely no energy and is easily fatigued, he is short of breath and he has a nonproductive cough. He denies fever or chills. He is accompanied by his who questions whether he may change his cardiology follow-up to [facility] due to proximity to home. Patient wishes to establish care at [facility]. Predominant complaints are unrelenting fatigue, [...] abnormal wit (more content not included)... Normal [employer] Tobacco Screening.on 023 Adult depression screening assessment No [facility] y 250 DO Work Phone: Fall risk assessment a) No falls within the last year [facility] y 250 DO Work Phone: Tobacco use status [facility] b) No [facility] [facility] 250 DO Work Phone: CBC AUTO DIFFon 06-15-2022 BASO # 0.1 103/ul Normal 0.0-0.1 [facility] Comment on above: Performed By: #### C BC #### [facility] [address] [place] [address] Dr. Maria T Canela Basophils/100 WBC (Bld) 0.7 % Normal 0.2-2.0 [facility] Comment on above: Performed By: #### C BC #### [facility] [address] [place] [address] Dr. Maria T Canela EO # 0.2 103/ul Normal 0.0-0.7 [facility] Comment on above: Performed By: #### C BC #### [facility] [address] [place] [address] Dr. Maria T Canela Eosinophils/100 WBC (Bld) 2.7 % Normal 0.9-7.0 [facility] Comment on above: Performed By: #### C BC #### [facility] [address] [place] [address] Dr. Maria T Canela Erythrocyte distribution width (RBC) [Ratio] 12.7 % Normal 11.0-15.0 [facility] Comment on above: Performed By: #### C BC #### [facility] [address] [place] [address] Dr. Maria T Canela Hematocrit (Bld) [Volume fraction] 39.7 % Critically low 42.0-54.0 [facility] Comment on above: Performed By: #### C BC #### [facility] [address] [place] [address] Dr. Maria T Canela Hemoglobin (Bld) [Mass/Vol] 13.4 g/dL Critically low 14.0-18.0 [facility] Comment on above: Performed By: #### C BC #### [facility] [address] [place] [address] Dr. Maria T Canela IG # 0.01 10e3/ul Normal 0.00-0.03 [facility] Comment on above: Performed By: #### C BC #### [facility] [address] [place] [address] Dr. Maria T Canela IG % 0.1 % Normal 0.0-0.5 [facility] Comment on above: Performed By: #### C BC #### [facility] [address] [place] [address] Dr. Maria T Canela LYMPH # 1.7 103/ul Normal 1.2-3.8 [facility] Comment on above: Performed By: #### C BC #### [facility] [address] [place] [address] Dr. Maria T Canela Lymphocytes/100 WBC (Bld) 25.0 % Normal 20.5-60.0 [facility] Comment on above: Performed By: #### C BC #### [facility] [address] [place] [address] Dr. Maria T Canela MANUAL DIFF REQ NO Normal [facility] Comment on above: Performed By: #### C BC #### [facility] [address] [place] [address] Dr. Maria T Canela MCH (RBC) [Entitic mass] 30.0 pg Normal 25.9-34.0 [facility] Comment on above: Performed By: #### C BC #### [facility] [address] [place] [address] Dr. Maria T Canela MCHC (RBC) [Mass/Vol] 33.8 g/dL Normal 29.9-35.2 [facility] Comment on above: Performed By: #### C BC #### [facility] [address] [place] [address] Dr. Maria T Canela MCV (RBC) [Entitic vol] 89.0 fL Normal 80.0-94.0 [facility] Comment on above: Performed By: #### C BC #### [facility] [address] [place] [address] Dr. Maria T Canela MONO # 0.6 103/ul Normal 0.3-0.8 [facility] Comment on above: Performed By: #### C BC #### [facility] [address] [place] [address] Dr. Maria T Canela Monocytes/100 WBC (Bld) 9.6 % Normal 1.7-12.0 [facility] Comment on above: Performed By: #### C BC #### [facility] [address] [place] [address] Dr. Maria T Canela NEUT # 4.1 103/ul Normal 1.4-6.5 [facility] Comment on above: Performed By: #### C BC #### [facility] [address] [place] [address] Dr. Maria T Canela Neutrophils/100 WBC (Bld) 61.9 % Normal 43.0-75.0 [facility] Comment on above: Performed By: #### C BC #### [facility] [address] [place] [address] Dr. Maria T Canela Platelet mean volume (Bld) [Entitic vol] 10.6 fL Normal 9.5-13.5 [facility] Comment on above: Performed By: #### C BC #### [facility] [address] [place] [address] Dr. Maria T Canela PLT 163 103/ul Normal 150-450 [facility] Comment on above: Performed By: #### C BC #### [facility] [address] [address] [address] Maria T Canela RBC 4.46 106/ul Critically low 4.70-6.10 [facility] Comment on above: Performed By: #### C BC #### [facility] [address] [place] [address] Dr. Maria T Canela WBC 6.7 103/ul Normal 4.0-11.0 [facility] Comment on above: Performed By: #### C BC #### [facility] [address] [place] [address] Dr. Maria T Canela GLYCOHEMOGLOBIN A1Con 2022 ADA RECOMMENDATION SEE BELOW Normal [facility] Comment on above: Result Comment: ADA RECOMMENDED LIMIT 4.0 - 6.0 ADA THERAPEUTIC TARGET < 7.0 ACTION SUGGESTED > 7.0 Performed By: #### A 1C #### [facility] [address] [place] [address] Dr. Maria T Canela Glucose [Mass/Vol] 223 mg/dL Normal [facility] Comment on above: Performed By: #### A 1C #### [facility] [address] [place] [address] Dr. Maria T Canela HbA1c (Bld) [Mass fraction] 9.4 % Critically high 4.5-6.2 [facility] Comment on above: Performed By: #### A 1C #### [facility] [address] [place] [address] Dr. Maria T Canela MICROALBUMIN, RAND URon 05-31 mALB <1.3 Normal <=30.0 [facility] Comment on above: Performed By: #### M ALBR #### [facility] [address] [place] [address] Dr. Maria T Canela PROF 14(COMP METB)on 023 Albumin [Mass/Vol] 3.9 g/dL Normal 3.4-5.0 [facility] Comment on above: Performed By: #### C MP #### [facility] [address] [address] [address] Maria T Canela Albumin/Globulin [Mass ratio] 1.2 {ratio} Normal [facility] [facility] Comment on above: Performed By: #### C MP #### [facility] [address] [address] [address] Maria T Canela ALP [Catalytic activity/Vol] 81 U/L Normal 46-116 [facility] Comment on above: Performed By: #### C MP #### [facility] [address] [place] [address] Dr. Maria T Canela ALT [Catalytic activity/Vol] 65 U/L Critically high 16-63 [facility] Comment on above: Performed By: #### C MP #### [facility] [address] [place] [address] Dr. Maria T Canela Anion gap [Moles/Vol] 12.2 mmol/L Normal [facility] Comment on above: Performed By: #### C MP #### [facility] [address] [place] [address] Dr. Maria T Canela AST [Catalytic activity/Vol] 47 U/L Critically high 15-37 [facility] Comment on above: Performed By: #### C MP #### [facility] [address] [address] [address] Maria T Canela Bilirubin [Mass/Vol] 0.5 mg/dL Normal 0.2-1.0 [facility] Comment on above: Performed By: #### C MP #### [facility] [address] [place] [address] Dr. Maria T Canela Calcium [Mass/Vol] 9.1 mg/dL Normal 8.5-10.1 [facility] Comment on above: Performed By: #### C MP #### [facility] [address] [place] [address] Dr. Maria T Canela Chloride [Moles/Vol] 98 mmol/L Normal 98-107 [facility] Comment on above: Performed By: #### C MP #### [facility] [address] [address] [address] Maria T Canela CO2 [Moles/Vol] 27.3 mmol/L Normal 21.0-32.0 [facility] Comment on above: Performed By: #### C MP #### [facility] [address] [address] [address] Maria T Canela Creatinine [Mass/Vol] 0.80 mg/dL Normal 0.70-1.30 [facility] Comment on above: Performed By: #### C MP #### [facility] [address] [place] [address] Dr. Maria T Canela EGFR-AF TAIWANESE >60 Normal >=60 [facility] Comment on above: Performed By: #### C MP #### [facility] [address] [address] [address] Maria T Canela EGFR-NON AF TAIWANESE >60 Normal >=60 [facility] Comment on above: Performed By: #### C MP #### [facility] [address] [address] [address] Maria T Canela Globulin (S) [Mass/Vol] 3.3 g/dL Normal [facility] Comment on above: Performed By: #### C MP #### [facility] [address] [address] [address] Maria T Canela Glucose [Mass/Vol] 291 mg/dL Critically high 74-106 [facility] Comment on above: Performed By: #### C MP #### [facility] [address] [address] [address] Maria T Canela Potassium [Moles/Vol] 4.5 mmol/L Normal 3.5-5.1 [facility] Comment on above: Performed By: #### C MP #### [facility] [address] [place] [address] Dr. Maria T Canela Protein [Mass/Vol] 7.2 g/dL Normal 6.4-8.2 [facility] Comment on above: Performed By: #### C MP #### [facility] [address] [place], [place] [address] Dr. Maria T Canela Sodium [Moles/Vol] 133 mmol/L Critically low 136-145 [facility] Comment on above: Performed By: #### C MP #### [facility] [address] [place], [place] [address] Dr. Maria T Canela Urea nitrogen [Mass/Vol] 14.0 mg/dL Normal 7.0-18.0 [facility] Comment on above: Performed By: #### C MP #### [facility] [address] [place], [place] [address] Dr. Maria T Canela Urea nitrogen/Creatinine [Mass ratio] 17.5 mg/mg Normal [facility] Comment on above: Performed By: #### C MP #### [facility] [address] [place], [place] [address] Dr. Maria T Canela Coding Summary.on 03-18-2022 Coding Summary. CD:[id number] Gh 0bWw+PGhlYWQ+DC2FUZKnW 77otMTwiU9DL2yWZA3KBBI YZNWYEG2EED3ovKW2CKvuE 2VybiAv CopfpYHsUG25WOn8ZRW4eJ dhOPlklS3qfDDzJ4u8EwRt CR18zS30IWchCMYlJsK6If ZpbjsgbWFy I0neYwFdbLCkVcl+PHRhYm xlIHdpZHRoPScxMDAlJyBz nNlgFU8pYy6yFEGlSFLpgM xhcHNlOiBj q5tvYAXtYEcvQE0tdNnrH6 NemTN9JJTvl9v1Nl77jCE+ HLAaBPD1xAwgXHnja442Na Xlz3xwHIP7 vMPeMUexCGS7P43aa4B8NO XqYQEmQSL0cZQ1tA0peOgy wdnuI7HroQDnPhY1XHV4cN VarJ0gwKiy hygkmR2pWnc+D57NTQ1PLF ZBDW5CUnz5H0UeCgmbzMS+ SE98PYOjSJ77qARnxILzy1 qcwIm3QvIy HLCzPYP2iNllBNhkq6EzPO LrF32ylGDlc6G0BMMfbSgy lMHrZfYxnAJ5aG9mYEpaog fkg7utssiw Negvm2dwof94rS04C76fRU vqFDYaFLB0BNUuAEQsgXev fv0jsB1gEf9+MXcqx8jus2 wktAg3BqBm YMMdxnVwyTumINP8i6PdGi 89H3IqfJnia5PoRlt2zj63 nGMie2J5bUY8IFjbHZMvdN 9xBNtsPhJ3 GLQlQoZomU67mHQgJNcsDl 9zaWcspHfwIR0uHBMmebrd CUKnoN6sOTZevKSjjPvpVF 4wNTBpbjtm l280SnQlYCR9CVRfsWVxK0 PesA7iXlYqOHJiFSZuL1Ft aFMbUCakQ365IMzbYjR9ZG YobmQzC8Vt WOUpxIcoXfH3n8P5Xj8Vs7 XaqrhwLSI8AMgzAZWsKqP6 ZuSqMxG5D1EiVrk1MNPwvF pqAB0eL5Aq YOTyuyedwgeclZM1AGBvMA QotZ01bOEzSIzwRo7ka4S0 g172WGDkXHOyrF54Na9weT ogMTBwdCBU dG2afluxq7wudzijGfKxSI JvQUu1TPa3PZHzvJwdBwTb YCZ0NfE3WVY2iXZkvZ6hgI afljkcyH1a Oyc+C21btJ1rNON8DHO6mw ucAWYhkhJpVD91WV61H3Uc PjwvdGFibGU+PGRpdiBzdH qrQZ7dLlWt c6bql9BwDMsnX2DxLMOtOC rhQwx7ISXePBY1mKR0dI4i KFJzZCryh9S8dXN5I3Pppw Ddpd9yf8zk YNDzUYanE83vnEDix5I5OY GtaBG7OOVmwEogSyKrqI51 Oyc+MPGjoFequ6FvHjtty7 jbo5kuhDh9 RnRoGIZwqyGanYiqQBL2p7 SwYf01A54jKBsbOROvMQAd BFCrYQVjbYkyym4wnO5aZv 8+PGNvbCB3 qRO8nF4oYXNgFkD1NMmvQ8 97ZdGhsOIaWoiiy6rfn3uq fMq6DuSaITBdzeAakQlhNM Y8a2ReIb74 E02wDAtdMMOlFZTvSBUgWW WdnInwfj6ybX4eKu3+PC9j d5tsup51jZ16uRK+PHRkIH J7dSmdCKev PRDkgW9jCCzkTmO7ZWCrJg OfbP84cMFdPTquGm4rdWle pHcjSA5aEJVhhrhev869Do Njo1ueGXPk gZRdNBooFZU7O67jj9V4ZE GgEYWqWRO4lUX9lQ3myQrt bjogbGVmdDsgdmVydGljYW pfSLbeK518 IHRvcDsnPlBhdGllbnQgTm CzLVl8T8CzHya2PNKkyRnm VE1brSYaWQphCu9koChyvD erMN8zKTWm kwufw706OyJcf0vfXRWvsV EpRYemWTM3U37zx1O7VNQe KWCcOBA4vLC8nM8xrQyboi ogbGVmdDsg weOnmThdRDnoJRkpT298SY RvcDsnPkJpcnRoIERhdGU6 DY80SB63mXWix7O2kRK9E0 BhZGRpbmct yiqmiSO8MSDtAZCozN14Rg 1uiNosBy5iPFVvTQT7ZYXj eJIgG4FigF6fIgDxJILyFN GjM4VhrJLe JUztX052MLjsQkH6XKFvkl VxI3MtKNHugExkTyM9q1A3 Vl0DB0W5LL58MP06fCKvw4 C0tWZ4X0Sw LVTbabtkqwjjsUO5WFFmYY DavC38Td3euDrtAe1gYSCx EWS6UHPuaTOcS8FfgG7zHt AjMDAwMDAw B2EzkRQbUHtqN043ACiwMf P7FGYngaEbP6XtOSZpvEqe LtF1x4K7Lc3TRRb1JT26AH 36vPTfi6V1 oAM2C7HsYQIaiajgbldodH D0VRQsVRPjlB93Ek6bdRns Ui4vKRRrUAO6FYNksGZqK0 NaaI7jBlVe TJGkRRJeA8JbyVQsLCimP1 10GTglSoU7TGOzuwPmM1Mq DTWhdGgtLeS2w9I9It9YCI XkYW52AGI7 zHU9PE29KS96H1EmQalszW FibGU+PHRhYmxlIHdpZHRo SXqyOSStJzPbmEzhDZ8kZk 9yZGVyLWNv qTlkrYViFmLnj7egMUVmKK qwZX3ayCyhO1ZlhLR4SKSt a7a2Nh09G36nV1VzzMB+PG JtsGY8vCC2 zL7mGqKgVgV0DVzdR168Vp UxtTSmOczsv8cjk2yhxGd8 OyO3ZWMdufVurZqhVMM8k3 DuHc02U63a IHdpZHRoPSIxNSUiIHZhbG pyci6olF8rXr2+PGNvbCB3 nLL8oH9vGzNcPkV5MEzzI7 49InRvcCIv Rhzga4lrj0uifXl0AzMjBL TvjqZkcXnsBFG0a3UzCf82 N2VktJjvm9HzEew5dq37mL Oqy8M3tFO2 N6IgEYQbvlsuxAGveKbgHG 4mWLLfultmMMPquM5zYKWd G3i8WuNoBgH3HKnoB1Tevn U4DYVhyQGg GDijHBJ4L95zk7D4WUUqXS SyLZA0oVB0bS6uoNzglgic bGVmdDsgdmVydGljYWwtYW poX634VJKn nQhbATMpbG7aPCQdhWUvgZ rdVH6xGLTomficZyUNIlDI FjmnVJHWDHKMWfQHIH52UY 37hOSvq3N5 lTJ7A0SgDKEqitgldljwjS X5SCIvUWJpzT97eJUeMQwa Tv9yu5T1y744MRRtZHCujO 83Oh6byVez FMManHWSmB2yvoaly6xkpx ibAuBsEQDqQDk2ZYa4RWZc gPidSfVjVKZ3YiP8VQX3rP BtxX8agPzy zldwwJ2mIln+MDUvMTEvMT a2YNyolSG+HJSeRQV9mHdq ZMvzAMSydL6rOXUuY8v7Fy IaLrI5JPbm V7UqXNXnspvgUg17tK5hCk DbJfI7IRczI7LdwfS4EYTm vPPkYNdgXSF1X11yq3P9ZK MwMDAwMDA7 lOX2vW3imQeuunidgSAfvA ukjiRhaGnmLZvrIJxdG960 TTSerNguLpO9PBcvCMJsFT 63RF27tQVz y3X8kOW2N7SbGOIoopbtde ikdGZ0RMEiIFLsdO67iRZg TWjsSo9jj2Y2t383WNAlAM SrdF87Fd8i hZsvBNKjiVMRaP2hkgfqs6 csfrnkUwFhIQByARi6GTe9 TAZklPfeGhXjGZX8KnP8VU J5iHCdhZ3s bDpsipffvN1qMtg+TWFsZT wvdGQ+KFDnZTK3yXfyEXsq FHDdcU6nKQLoW6d7SbTzAq W0JClkZ7Xl QRTxdaxfXd38eK6iChOrIf R8GRyeQ6VfnbN9QYSmiYGv XQqaPVD3H97tv7C6UNRcED TiIXZ5pWZ3 oJ4ixYdjovyxvEAghWgcnn NgrMckSJxuQGqlN891YGFm wQhhDk07hEQqdCbtzxU1H7 RkPjwvdHI+ YX15LNFmHZ27vJPrdKOzv0 bjhZd5QvJkHQHuZBZ6aPwd FMvdx8ZnLFVcB21giOVlo4 A1MGIxhGab yMOtEvMenUD0fD3rPSqunq zek1dkydkmImmit2byrw39 vE34J76oVVnsLDGnHKLgMR UiIHZhbGln wh1qkG5aUh3+DAKqoVF4uX Z2gX3kUgMoPwN8UVciF203 VqSzfZCfZxjax0han5lppV t6MaScUTFr prTpcVxaHWM0s6AjPy26K4 9sIHdpZHRoPSIyMCUiIHZh lUnnwa0smJ1pRx8+PC9jb2 gftf96lP07 dHI+TGSyJZW1yYfqUFfpOQ JgwO9xTMgvNyT5TBKoQfMu fM72fPNyXVywPd7sgUiesR aoEO0iRGLr refpy299YjPix2qiAXEbfX JdUQzlIDT0F91sv7S3SKTl LFZrIMK3oCU1tD6zgAcvzi ogbGVmdDsg ixGbjTybETxwUErwR806SJ TvmZhzLpUdgOOmP9lruzKI NU8eRkhphYM+TPXjGYC6dW xlPSdwYWRk tN2wIXTwH5i1NuBaNfP6VZ njI9ZdlcY5SCVeqUUoVWTm sYRCyI2tflrmn2rndikkNk AwMDAwMDt0 XZi8RUVgvCcjLsYpESF6Wm B6MXN7nIOicA7chFvcwlbt vX8uYra+RklOOjwvdGQ+PH QbTRA6zWiv EGexVGEglX6nONJkA6d8Bm YnAdI5SWuaK2RgzuW1UXTh sHNoWZDydZHHzY0fmzzdf8 xvcjogIzAw AEBdBGv6UZn8WIXroCnhAl RcMVL9LqV6PRW7wNTynA0v fMcenyksdQ7rEnc+TVJOOj wvdGQ+PHRk MOH1wHsoWFqxEVKhoP5dYE YmT5g0UaJaYwL1XLhwO8Wb kyM9HLPqrDKjIJAcwIRQnW 6oaqlpd9kv vjrsMnHqECIcHZi2NUc9NT BajGjfRsHxPXT4RiU9ETT7 qZItvL6zsJvzpznykA2oWl c+TDT2ONG6 EG61BX47G0GnBtjbkXNhqW U+PHRhYmxlIHdpZHRoPScx EAXcNuTkxBmzSL6tSq5aJH VyLWNvbGxh cHNl (more content not included)... Normal [facility] Consent for Treatmenton 02-28 Consent for Treatment [id number] 2099 [id number]#1.0 0CD:127 Normal [facility] Heart [facility] Vascular Office/Cl inic Noteon 03-09-2022 [...] in office. He had echocardiogram performed at [facility], which was normal. He was ordered Event [...] protocol. [1] patient was then referred to [place] and was placed on sotalol followed by [...] progressive dry (more content not included)... Normal [facility] Comment on above: Result Comment: Elec tronically Signed By: Camilo STARK, Kushal Galarza\.br\Date and Time Signed: 03/09/22 11:29 EDT Progress Note-Physicianon Progress Note-Physician [id number]#1.0 0CD:127 Normal [facility] Coding Summary.on 02-10-2022 Coding Summary. CD:[id number] Gh 0bWw+PGhlYWQ+VK0HOXGzB 87fmSPcaT2CA2yBDW1IICI PCGEIET4ACP4xpMT6SPmaQ 2VybiAv JtlrdNUbMX27QFd0AQN3rA bhZOewdP2xsURdT5w8KpHm VT74jA18AYowGPAcWuE5Wx ZpbjsgbWFy T5tySzBkoQLnGpa+PHRhYm xlIHdpZHRoPScxMDAlJyBz nOjbCK5dGu3hFEArAADxsO xhcHNlOiBj f8rqSOYhPMdvWY6xaJlnW0 EeqOX9WJErg4b0If96uYZ+ KFNrUSE8yHymOQzuz717Ii Vqy0wyFNA7 uGBsNCwsUHO0Q54mo8L0YZ TlNBHnCWL9tPR1yT2gvJvg hevtE4ReaUKbUoX3WUX5kI QzfP0yjFrg otcegC9xIzj+H98UAP8OZW OIFJ4ZBpv4S0GaSmtqpLG+ WZ95EKVmJB73kOSezUCpv0 anhDj9OtPq JDPgOJJ2zUhqZHcuq4WuAL XnT68jqAMxi9F8AQAxfYwc cQNtYtOpiZV7mT0fOZlldh kbi9itydfg Etlau8hffu41tH30X68sDR szZKMcCYT3XHFoFMEytVhj uz3zmO4nDl6+CLtmt9lyj6 hriZx7IvVj JPOjyiLtoZwxBUG9h4EtSi 24B8KucSicy8QeYcr0ej92 sBElj4U1vGN7TSdlZUPncY 7dBHnqRkZ2 BQAmAsYcnI08oJPzKKpaXk 6lpEqysTreML4dVWKoopgh IZKmaV8aDJCkhANisVluFR 4wNTBpbjtm s640BlCpMDY1IDKjyDLgK9 XcpT4qDkHhMGZpBKUiP1Jq gENcITnwZ064SJsiEgI4VX VyfvXfK3Sn UEUwtUarGsR9c0M5Xm3Bb6 GmrmxkIWR7LVhuQIO1NbNb PxWePrV5N5KvZte2ZVOxoJ gzDH1lC9Pp FDGwzaunaxresKO0PIHxKA OqoA57qAXaTTsqRe2fs5Z9 j853DQAuHZJwhJ11Bk0acR ogMTBwdCBU tS7gfrmrt7riszdwPtGwEM RpMGl9YTh0DSPqeYgpOlNs BEL2MnT0BKU0rSNuuK4asG ccsfmjcT3x Oyc+I28iyR3hBYX4HPM5wn ozLVJvpmEfJI68SQ33Y4Hr PjwvdGFibGU+PGRpdiBzdH mhZR3eYdSv r9rmw5ZpGRdrP1EsERGyBY uiFyy3POXcSCC6jSB1fB7g PNQgCFbup5T3wBA5W6Kaak Tsbp3pe5bw GXYmNNylF38jqBMnx9L7BV VliWK6BRLtsGevZbAmsC03 Oyc+SHVeyPuzw5WkUrrhn9 ito5etfFt0 BgWlPMBqdgZtbLygTUK0e8 PrGe81S52bNXjjLJPeFATb NVMaJHZgvRgibx8mtF0gMk 8+PGNvbCB3 wUZ5dB0zFRGeEqT6WQwwV0 66XaYpyKZeBldzj9khg0ba sMl0OwHrSJSzbmDegQedNH Q1m7WqBd66 X40cINvrIMVqDZQfSACgYY XqfSjicz2agQ6mTa6+PC9j q6bwcj19rC07nQK+PHRkIH G4nTyoTTws BWUoqT4kDAmkTuO6NVTeGq IvwE09xITjDSpuOi5gmVql dDnwAY2gAFSjdacrb641Ow Pik8wqTEOs sDQuQRfuVAB6T38ab7S8RD MmPHVrVIY2eOX1zX1xvYhv bjogbGVmdDsgdmVydGljYW svSOflH249 IHRvcDsnPlBhdGllbnQgTm ArAFg2M4LpAkt7ZVIciKkt GK1gwRJoLLitRj8awSuewK tgQB8pKJPi jimne938ZsLth5maADMaoL FdGMmzDMT4U38we2V9KKXn OOYyRSP0oUT9cO4jcKbftu ogbGVmdDsg ruFdsCzyTEdyQZhbI272NU RvcDsnPkJpcnRoIERhdGU6 MI72SH23jDKku0S2zWC1F0 BhZGRpbmct gkxfmAY0NHTbURIvzS57Ug 1kuRshRr2bGZSdEFX1PJXi rUBcH5WppN4fJeOjRBAmXD WsO9DxhSYt YAibE688USlcKuZ2FERyyl HmK8YtKTIvnQcmZmF7c9B6 Od7HS3I5IA16WF79oFTyo2 F1iXW9K8Sd SFDshevwpgeuhAH7GZEoAB WaaZ15Ty4rqYabEr5eDFEi TJC9ZTOynZIwH2GvkT0kLq AjMDAwMDAw J0VklUZuASgdW003QGieGn A0SKVohrXpJ0VnXDLsaOgq LxS4m9V5Gs6RKDh5WS20VX 91kWBeo1W4 rVL6O7AbNRAzjwubllaszF T2VDUlHLKdyZ03Um3vgTrp Mm3wGSXiEFD1FABscLDkV8 WnmO2kMaZt AEHoHEYsQ9XciHPdWUoqG6 97SOddJlU7XDJvrtUzV1Ew ZQDnjAdkPuS1a4D9Tc5TDN PhFZ27RWU9 qZH5LL26AO50P9ZlVtncoN FibGU+PHRhYmxlIHdpZHRo CZwjMCWsVyRjaSduCK9iQs 9yZGVyLWNv kXfvdKJjOdTvr3wrSQZsYZ hhNJ9gaBzzR2CrmFI1FLBc r3w6Mu12G36eF2ApkJR+PG AajCS8sDC3 kV9nVoOdKwZ2UInjV871Po AneXHlFloyp5pbd9qeyRs6 CvG8JDJunkPqrZziPEG6v3 MoIx25I35s IHdpZHRoPSIxNSUiIHZhbG obsl0rsE7aJh8+PGNvbCB3 tII6fR1rDmRsVrY5IPtnX2 49InRvcCIv Qowri4qjq5yleRh3XpPnHY MyxnPziJqmXVS2h7LqTa09 A5AbgMqtm8SkXxa0am15fL Dce8I6xAQ4 L0FnYDVogzazhUYgaKasUH 1yRAEalvcjIRPuxI6cOYWb O5c7VoBuDzK5UNnkY7Mkkk G4XWUpcMMx NHfmOPJ4J01ph9L9LNStMM ZdJYT9xWT4vT5pvFhyjmpw bGVmdDsgdmVydGljYWwtYW eyY182BXEn bUwyKTPnrL6yDWXkgTZpcG xwML0tYGVmakblEzFIFiYO UadpTWWDUOJIJqOYIR04CV 41yTXhc2U2 qSS8D9WgMFQifddzgugzxR W0VUQsGXLnzA54gMUhJSis Cw4uh4R3c922EOFaAJPvbG 43Rb5uoHmh JHXsrLNIqY7vgrqhg8rvar cgWdFlYMYkYDl7QAk8ZZSw yTvsAvVuLYB1AyC7LWC4mA IbjI0clZwb gvdybC0gBsb+MDUvMTEvMT x2HCabaMZ+MYGeMJR7uBfk CEdxKXEypN4bNMRyQ8g8Hj AbNnC6EOpg J7OvRMCuxdgmMj84xD3qHi JdHuB3UQrxG0MqbxQ6GAVl hKVoKCitWVN1G97js3J8KE MwMDAwMDA7 xJP0zQ8rlUgpxumkrQPtdZ rnoaWyaWetREihSEcxH041 HJGogYwiSuV2SOgiTHQnCJ 23HA35zJHq r3B5mSU6P4BmBPTvmmxnfk nxiRG2TWXtCNTvqI63jQDo SBmgMu9yz2W1h663QWMdVM ZxpP58Ly5a vHzsIZYdlNCFzJ9kooozj8 gufshoJtPaFURsJAy1JMk5 VJZwsDcjSzRoVFV0LmS8EK U6zSQjsR9x yFjsibflqF8aCyg+TWFsZT wvdGQ+MHOfNES4lWmyKIvd JAQqcW6fUKOkR4v6QqViKa Z7FVldT6Zl NEScdimmNx01iO8iHcEvJt T8AAzcE6TfoyO9BAQnoHDb FLuyXEA3X66ad1D9ZCGaOS TxDNQ9dFS4 qX6jsMlnfxcpuXSacUevqr KlrUdwWLtiDJscJ010RLZa cDsnPkFtYnVsYXRvcnkvU2 FtZSBEYXkg W5BzF9OfsHeraLZ+PC90cj 95P9SdLybuLyu0CGVlOYR6 jZA3xY9lHVEaGOzll9C8pI S1H5MfcgBy zz7eu8zlXWWtPMqaN49xoT Htt5S4OOUaoBS6KHEpyJqc UfBbcO30Eer+PGNvbGdyb3 NbKqkjx6pd e0szoIq8KlTzHNFvhiZkpM waIDF2p4BqPn28P48bTRnq ZHRoPSIzMCUiIHZhbGlnbj 4ljX6eBm3+ RCTzfZY6bHR8bL3uNqMmWk F5LGgfM015TxKbdJQoYazp x3biw6cidOg9QoDcKKTtbe FsaWduPSJ0 u5LuRr00I6KzbTboc3FwCr l3zx42pTPgt4T5tCM4E5Iy HPMytxrvlRIcjRvkAP6mOW BpbjtwYWRk sW2wFQInH3z0UtWpWiX3VW fhW1JwmjG6FVLmiCVxTMVk zPBErE7yrznjt8wriinjHz AwMDAwMDt0 ZIo7JCQdqCdjIcNgTUI6Ro Q6JTY9sQFpoS1uzVdvkezl sI5rAgd+UZs3o7xcmHIpWH 5agWW7ME59 DC14aHOgt9I4iZS0S9VeLE JafgyswrsopHJ4YPWuPMZg aF06Hj0qdMvrUi8eFXRxJU O2ECVjwPXt Z5OmcI5cEySdOKCeBWAnV3 FpsBMwITsgM962MVkwHiK4 AXZiphMiN8GkGJRndLhhEb S8f7O3Ke7E RJ19YV46YQ72vKJmr5X1iP R2H0NnYQUjpzdidzvtwEJ0 ISKkVJZcvR73Ji7ptDvfLv 0zGVJmCDU0 MUHjxFJlJ8IycK0sMrXaBD JnXSMmI8WilKJnQCbwF896 DJmfXjF0LQMkllNbT1VnMX FsaWduOiB0 y0X4Ek7XOo36EX38YY95dF Mgc1U5qWS0G6OyFNKocehm pexhgUZ7VUAjENEwiY60Em 6dqMbwZs2v FPJdUNW3IPZvzZGwP7NxhY 1qVzFiWFKuWTMvL0VsjBEp RAajZ637SXshTqH1DIYvuf GrG6UyZHVl xJogLmD6b8K8Dj7HIYgltu x9B1TbLtoleXZ+LP36BLHx LU64hVAnaINws8rzhQt1Sd EwMCUnIHN0 eWxl (more content not included)... Normal [facility] Consent for Procedure/Surger yon 02-09-2022 Consent for Procedure/Surgery [id number] .00CD:127 Normal [facility] Cardiovascular Reporton Cardiovascular Report [id number]#1. 00CD:127 Normal [facility] Consent for Treatmenton Consent for Treatment [id number]#1.0 0CD:127 Normal [facility] Inpatient Clinical Summaryon 02-05-2022 Inpatient Clinical Summary [place] [id number] Clinical Summary Person Information: Name: LORENA CAMPOS Age: 66 Years : 1955 Sex: Male PCP: BEENA BENÍTEZ MD Marital Status: Phone: [phone] Race: White Ethnicity: Non- or Language: [place] Visit Id: Visit Reason: R94.39 R07.9, I25.10 Speciality: Acuity: Enc Type: Ambulatory/Same Day Surgery Med Service: Surgery Arrival: 02/05/2022 06:31:58 Discharge: Dispo Type: Address: [address] [place] [address] [phone] Provider Notes: Diagnosis: Problems Active Hypertension Acid [...] Follow up: With: Address: When: Kushal Page [address] [place] [id number] [phone] Business (1) 03/09/2022 11:15 AM Type Location Start [facility] Cardiology Follow Up (FT) FT.Cardiology Clinic 03/09/2022 11:15 AM 03/09/2022 11:30 AM Confirmed Patient Education Information: CV - Cardiovascular Discharge Instructions (CUSTOM) Normal [facility] Inpatient Patient Summaryon 02-05-2022 Inpatient Patient Summary [address] [address] Patient Discharge Instructions PERSON INFORMATION [...] Follow up: With: Address: When: Kushal Page [address] [place] [address] [phone] Business (1) 03/09/2022 11:15 AM In the event that this physician does not participate in your insurance network, please consult with your insurance company to find a nearby participating provider. Type Location [facility] Cardiology Follow Up (FT) FT.Cardiology Clinic [...] ti (more content not included)... Normal [facility] Operative Reporton Operative Report SURGERY DATE: 02/05/2022 PREOPERATIVE DIAGNOSIS: [...] an exchange length J-wire. Next a 4 Israeli sheath was placed without complications and flushed with Heparinized Saline. Next a 4 Israeli JL5 catheter was easily engaged into the [...] exchanged over a wire for a 4 Israeli 3DRC catheter. This was easily engaged into [...] exchanged over a wire for a 4 Israeli angled pigtail catheter. This is easily engaged [...] conveyed to the patient and his . Jamir Hernandez Dictated: 02/05/2022 [id number] Transcribed: 02/05/2022 [facility] Comment on above: Result Comment: Elec tronically Signed By: Camilo STARK, Kushal Galarza\.br\Date and Time Signed: 02/05/22 13:41 EDT Patient Education - [place] 0 02-05-2022 Patient Education - Text [place], [place] CARDIOVASCULAR DISCHARGE INSTRUCTIONS Diet: ? Resume [...] you are interested in smoking cessation, contact [facility] at [phone], ext. [phone]. ? In the event you are unable to reach your physician, please call Robert at [phone] and the alfalfa dehydrator operator will assist you. Seek Immediate Medical Care for: ? Bleeding: Apply continuous pressure to the site and Call 911. ? Should the arm or leg become cold, numb, blue or white call your physician immediately. ? Signs of infection are redness, warmth, swelling, increased tenderness, colored drainage, fever or chills ? Chest pain ? Normal [facility] Coding Summary.on 02-03-2022 Coding Summary. CD:[id number] Gh 0bWw+PGhlYWQ+WW7DASVrI 39wqFBluI8AW5pSTI3IOYM QNCEWIU7UOL7hsLC0BVhlU 2VybiAv XikjxHGeWW31KSe5PXO8jH weTShhuS3heMZjV3v9BhVk WF61dZ77EBcfHXKtIpG4Vx ZpbjsgbWFy U0toWlKdrYEaAug+PHRhYm xlIHdpZHRoPScxMDAlJyBz sToqQU9fRw1mGFWfAJLlhW xhcHNlOiBj m9cwKJYwEPxnRC1whCzgX3 HniOM8AKUui4h0Wr07dZP+ PZYqKAZ8vRrzZCphm984Qg Yaz7rdACS2 hUUtDRyhEUV5F80dv9W3UK HdKICbUXM1dZX8pT9jaKbt xpyoX1LozQKwLaV0QLK0iM HdqV4leVnr cdwipB8dFym+I69GRV7EQN GQNU7HXdh6Y7SjUvdzdVB+ MO43RNHwVD12zEOwlKVjk6 oopOd4XeEl BUFwBIJ2sJudLFyhh9HxXY ZxH43kvBKoc6J5FWFtqQmk rCCmImJmvSE8eO1dUTbdnj qpx1dndqsp Qnyon2qosp93qE99D24wER rjPFAjHNH3XDWbGYGcoDpa aa2cuV7oQl2+GYzzw0oqj9 gphGz7HxCy MOQeaxFjfGyhPJB8b0KhAu 02Z3GfkMqpg0EsZal2un22 mISmw3C5lSZ5IIhaWUAcuV 6lLEcmGyF9 MAJaLeRqrN55zEFiAGtmUv 2spPbwqVlgLF6kNXAnicxx XJFfeQ4qICZvfEYcxVcrJU 4wNTBpbjtm u436HjQwCFS3USCtlONtO9 AhaG5nJrQaXHXoVUAwF6Gr nYAcQLziH087WEckNfM0JX AotyQnW6Zs OWDmyLbyUuU6t5B8Kh0Hm8 AwczocKPG8JLlpJFH6GrL6 MkQqGjJ5X2DfKlq1TNTqjC uuPW3oI6Sa ZFSrvadvovdqsTS6KDWfUZ YsgG51cFVhQNtxHj5yn9O0 h412PVPiAYVigF71Fm3afO ogMTBwdCBU hW4mewans0bhzwpiGnWhXY KaASv9PEl3CILodMniUjHq AZX2BmE4NYJ6yNGdjV1sjP xutqkskJ6k Oyc+V31vxC7xPDR9OAT2mf ycVBReruFjDT55FS90G5Tl PjwvdGFibGU+PGRpdiBzdH qvIC2zXpOg p1uyo8FkQKwhS9YmDRGaMZ ytYko4RHBwURM6uEZ0tC0c YSRjEUmtz4R1kPC8Q7Uqfi Xynh8ns7lp TZEkNLnsM33olLKqn7W6CR HnyZT6TAGdsYcqLiZyuG53 Oyc+EXBghVsxl8HoDcqvm8 ycu1ibqNj3 WpAiCDEicjZpzFdqAVU7o7 XjOh54H86jLDpvRNBuTZNk DGDoCPUdnHhlxo0nbV9lCf 8+PGNvbCB3 nNC7oA8jARBjSvO9CSgfC8 94ClCenJOpHfgmm9blk7ic mIo2MbFaTGPgkkXdtUljOO J6z8UuSe19 U79nRUlfNROxMWZpCUDvHG UxrKklem1zhV3rIg0+PC9j r1fshq78dK06aFT+PHRkIH V7eJanVXse CDNlpG5oUUodTmG0QAPiRm KjeG50bOOfZXhmZz9doKsa eNwyWF9wEMUfbrcxq386Py Srf6gxAQTk eHVuFZzvCRJ9D49gr5W2GL HoKDYqSYX2lHI5tE7jsOrh bjogbGVmdDsgdmVydGljYW eiWKxiG468 IHRvcDsnPlBhdGllbnQgTm MiMFd1X5ClYrk3XCTtfEvx RA5slVDnXGslFd6faQeonY bkNE4gDGCz xujjb236ShStf3xeQUCglH KxAQgbHRX5E72bl2B9PQDs SLMzCOY3pAG0vW0iwKztgj ogbGVmdDsg ydWnnHkyMRywYCdtY492IA RvcDsnPkJpcnRoIERhdGU6 DH84GD42cDCtb0E3dRZ0J3 BhZGRpbmct aohrkCP6YWChHNHmoA33Xw 7ogIfkDi0oEWDwUWQ3OEHm lHDhR2IbdN1xSxGnVYQtHH FpN5HweSJg XUkkJ886SBpoQwW0RYEzdq IdU7NkPCEuiLaeNrL9e8N2 Gh6SV8H0QN54KK99yIYcs6 L2tME2W1Fx XSIalhsoeqhkqRP5LXFeQV MuhG57Uk5pyTvcWz8ySZIf LCM0EQPfjUQqF1JjfH8mCz AjMDAwMDAw B0SuuAYoIGblV223PJtiEo L2NRTwlbNzU0ZnEDWxbTvh DcU1b9Q6Br2EAOv3OQ69IO 50iLLlc3B6 cYI7K8JjIHIbcrvtqkancS V6MUQmFKCpoT77Vp4rnOzy Lu1qKIBbNFB2AXAdeUMbA5 SbgY8pIsUm OPNyIEQlR5RdwZFqBDjpL6 02HQwlRmZ5WJHvqlBcN3Hi ZSPsuKymUoP1u1A9Cr9ZZB HeZI36HSR5 oAZ4JY48IY51P6DjXlinvX FibGU+PHRhYmxlIHdpZHRo BNjeVUUwCmSqxOvpGT4jQo 9yZGVyLWNv sVzweUBiQfPgb1hfKINqTR kvHF2ztVizK6DsfTI4BMPt r9d6Va64C82pZ3NoqDJ+PG ItvYH5fAK2 xW8wPwLbOeE6AUjkN709Wz SvvELkVdjjy7fyx2jumQm3 DcV4OPKqzrNdqMryVIL5c9 MmVb75B43q IHdpZHRoPSIxNSUiIHZhbG iffo7yeO5zAb3+PGNvbCB3 nQU2rZ2gDkQiMfQ7XWxiH3 49InRvcCIv Qvarl0gtf6jwpUt0GlTsUF EoomYhfKvzDTE8u3FgKr68 Y2QehPvey4XxBve8ls56aD Vty5N5iYZ0 G6BiJQUxhruvuALseZxaIK 5sYVHnbjtdERAquR5zZGCj V2u6IuGgAnH9NAzxN2Fmuw Y5VVWfnRPw ZOynCFH9T75zn9R5SXNoXJ YtPZO7jBS0pG1jtNgrtiay bGVmdDsgdmVydGljYWwtYW ugM671OAAc aYrtHOYrpM5rBLCovIQtjZ vpAF1sPTSohholZqSEUcEU KeelZSSZRWVSLnUQTF50BF 28kUOwk2L2 tEF1A7ItYQYccadmnogssI R9BORzESFfsU77cIYjRLng Xh1oj0B1k596JDTxABWsuP 93Od2pnBmw URSyoRQNcN8dwfsdt3xqnp dsFbTqYYAiMHo5AHg7WHCg fGisXePtLSF9VhL2DVM2bF MufU7ntMvo jauwnV2dWmp+MDUvMTEvMT h4JIdbkAT+FMDyQQF8uLyg MPsxQRTmtR5gTZPnG8m6Bs HpOdK9JJym Y1VqIDZkzpbaGi99zU3dZg MiPmM7QXkrQ1WmgmU6DNIo xHVwERywKCQ5U95lg1P4QI MwMDAwMDA7 nND9jS0pwMlntgdykEDesF selvEmpMunBIaiGUnhL455 SPVfiPsuHwO6FGczIYQqBA 20LP73zXQo y3O6oTM6A5EzIVQrejzuqk rkhBN3OJSvSAJmhQ18kNVl YVgaCd2lv0O0s199RMKoWS XgrF06Bu3l xUssCMLnaISBbM7fpbdou7 awaxkkWtAkFQEqFUr9LFw0 ZJOkgClbYnElDHZ8SwP2RT Y2uXPqtG0w zUuozldsdV0rRcv+TWFsZT wvdGQ+QXDlPQV2cVhqPVnj EAHskN0wZADoK5r3DjYlYq N9PQcyE4Ey QPRbezapJy05tV9kXcGtAu L6CKfpA7RnvpL0EEHknMKi BEkwFNI1P49gl2E0EHQqLC PrUJF4yBN0 aX6fwJgiprcshRZmwZqnty FkwDrpIPyiNGpbW674NTBd oXxzZt61sQHvjFbtgtU4N8 RkPjwvdHI+ HG34DXLfRU42rTWuaICvh5 avhLg3YtCtLKHvTCS6hErk DAyot3SpZCItZ12hpBImn7 I5RTNhbPeu hCGwSiWgaVE3vK5oOJkuxd hqh7vmxbuvIryog3jadh34 gS95Y38zUXhkSUYsYBPxZE UiIHZhbGln nm7qhF0hVx1+OCMfoXU5sJ F3gO3xZaVvOmR5DRykQ050 IyUavESvQlvpq2usc3lchA a2YiNuGXMt tnFmuAteZAM5z1NeCo33R3 9sIHdpZHRoPSIyMCUiIHZh wBbpsc4ewC1eBp9+PC9jb2 rswl83eC11 dHI+SUPaLFR2hEcaVUjcZE MdpX8rGYkiTkX3XXKkYaMz aC16kMRiGWpdUl4hsNdcjO cfZV9qOPDm dkuca256RqGch5atCYFrwO PcHQalMXI5Y95ez0X9KVWc DNBqOEV1kHU1yI8zlSuttp ogbGVmdDsg jxLggTkkLAisSOtbV368YG YqoZfvYvUtuVToB4vqpePG JW7qGnvxlLK+OPXtKVW8xK xlPSdwYWRk sM3dGRFjD1m3JsTsTiF2QK ebT6HxmzH3GZZjqJOxTBEy rQDZvN7tavsbp9xotynoSa AwMDAwMDt0 CZu8XCAxpIhqSsJeWKR8Fp F2EDU3eCTyqR3jvPthxwub oM6cOjx+RklOOjwvdGQ+PH WqIZK4jQxw SGewPVPexN2aITShJ3r3Ee LmEfV3FOnyK9BmboC1OKSz eWLeUYYgqPKMiL0xhyhld8 xvcjogIzAw BJFgXUb4VOs3HPVdbOpuOw OcOSM1SsI6OXC3rGXouD2n dNofgwrdhS2bQve+TVJOOj wvdGQ+PHRk EAN1aHzqNJfgTVAiiT1xCU AnR1u5BvVgFaK8ZSgqI6Ms ooU5VIIzkWYfJMRgnFDOlR 0hjgtfz8or gunpWzHuBJEtCLq5NMm2GV TsgUvtNxTeIAW8KeH8EKY9 yOYohX5ntRwxrhrfaX8zHu c+CNT8SFA6 XN63FV21P2ZqUimrtGZsmO U+PHRhYmxlIHdpZHRoPScx SURvAcRhcMsuXN0mBt7gDN VyLWNvbGxh cHNl (more content not included)... [facility] [facility] 01-29-2022 Outside Records [id number]#[id number]:127 Normal [facility] Auto Diffon 01-28-2022 Basophils/100 WBC (Bld) 1.0 % Normal 0.0-2.0 [facility] Comment on above: Order Comment: Order Added by Discern Expert. Performed By: #### 2 119481, 8099870, 5793057, [id number] ####[facility] [address] [place] [address] Basophils/Leukocytes Auto (Bld) [Pure # fraction] 0.0 E9/L Normal 0.0-0.2 [facility] Comment on above: Order Comment: Order Added by Discern Expert. Performed By: #### 2 372380, 8604631, 7642344, [id number] ####[facility] [address] [place] [address] Eosinophils/100 WBC (Bld) 3.9 % Normal 0.0-8.0 [facility] Comment on above: Order Comment: Order Added by Discern Expert. Performed By: #### 2 164006, 1626319, 3232865, [id number] ####[facility] [address] [place] [address] Eosinophils/Leukocyte s Auto (Bld) [Pure # fraction] 0.2 E9/L Normal 0.0-0.5 [facility] Comment on above: Order Comment: Order Added by Luis Expert. Performed By: #### 2 835879, 2446994, 3337733, [id number] ####[address] [place] [address] Lymphocytes/100 WBC (Bld) 27.4 % Normal 14.0-50.0 [facility] Comment on above: Order Comment: Order Added by Discern Expert. Performed By: #### 2 619510, 6225856, 9819332, [id number] ####[address] [address] Lymphocytes/Leukocyte s Auto (Bld) [Pure # fraction] 1.3 E9/L Normal 1.0-4.0 [facility] Comment on above: Order Comment: Order Added by Luis Expert. Performed By: #### 2 434316, 6459273, 7042970, [id number] ####[address] [address] Monocytes/100 WBC (Bld) 8.1 % Normal 4.0-14.0 [facility] Comment on above: Order Comment: Order Added by Luis Expert. Performed By: #### 2 754478, 9876073, 5806034, [id number] ####[address] [address] Monocytes/Leukocytes Auto (Bld) [Pure # fraction] 0.4 E9/L Normal 0.2-1.0 [facility] Comment on above: Order Comment: Order Added by Luis Expert. Performed By: #### 2 856771, 6243526, 2170867, 44646965 ####[address] [place] [address] Neutrophils/100 WBC (Bld) 59.6 % Normal 36.0-75.0 [facility] Comment on above: Order Comment: Order Added by Luis Expert. Performed By: #### 2 422366, 4113562, 1276145, 47082955 ####[address] [place] [address] Neutrophils/Leukocyte s Auto (Bld) [Pure # fraction] 2.9 E9/L Normal 2.0-7.5 [facility] Comment on above: Order Comment: Order Added by Discern Expert. Performed By: #### 2 568942, 1225323, 6518966, 66989898 ####[facility] [address] [place] [address] BMPon 01-28-2022 Anion gap [Moles/Vol] 15 mmol/L Normal 6-16 [facility] Comment on above: Performed By: #### 2 434763, 3321501, 5934633, [id number] ####[facility] [address] [place] [address] Calcium [Mass/Vol] 9.2 mg/dL Normal 8.9-11.1 [facility] Comment on above: Performed By: #### 2 716689, 7319604, 2388180, 79280071 ####[facility] [address] [place] [address] Chloride [Moles/Vol] 100 mmol/L Low 101-111 [facility] Comment on above: Performed By: #### 2 692935, 2890205, 4811060, 22251888 ####[facility] [address] [place] [address] CO2 [Moles/Vol] 24 mmol/L Normal 21-31 [facility] Comment on above: Performed By: #### 2 158312, 4053524, 5084245, 48488231 ####[facility] [address] [place] [address] Creatinine [Mass/Vol] 0.8 mg/dL Normal 0.5-1.3 [facility] Comment on above: Performed By: #### 2 613902, 6537736, 9493701, 18679995 ####[facility] [address] [place] [address] Glucose [Mass/Vol] 260 mg/dL High 55-199 [facility] Comment on above: Result Comment: If t his glucose result represents a fasting glucose, interpretation should refer to the following reference range: 55-99 mg/dL Performed By: #### 2 881873, 1484668, 4535126, [id number] ####[facility] [address] [place] [address] Potassium [Moles/Vol] 4.4 mmol/L Normal 3.5-5.3 [facility] Comment on above: Performed By: #### 2 585490, 7604882, 9881298, 34280432 ####[facility] [address] [place] [address] Sodium [Moles/Vol] 135 mmol/L Normal 135-145 [facility] Comment on above: Performed By: #### 2 947063, 6186523, 8984428, 85637048 ####[facility] [address] [place] [address] Urea nitrogen [Mass/Vol] 13 mg/dL Normal 5-21 [facility] Comment on above: Performed By: #### 2 121738, 8941019, 0544482, 46026732 ####[facility] [address] [place] [address] Urea nitrogen/Creatinine [Mass ratio] 16 No Units Normal 10-20 [facility] Comment on above: Performed By: #### 2 853200, 6101050, 8778166, 36220647 ####[address] [address] CBC w/ Auto Diffon 2 Erythrocyte distribution width (RBC) [Ratio] 13.9 % Normal 10.9-14.2 [facility] Comment on above: Performed By: #### 2 890448, 9868803, 5378537, 92489564 ####[address] [place] [address] Hematocrit (Bld) [Volume fraction] 39.6 % Normal 37.7-49.0 [facility] Comment on above: Performed By: #### 2 051423, 9313763, 1928078, 16523295 ####[facility] [address] [place] [address] Hemoglobin (Bld) [Mass/Vol] 13.5 g/dL Normal 13.5-17.5 [facility] Comment on above: Performed By: #### 2 701400, 5348207, 8210722, 44649703 ####[address] [place] [address] MCH (RBC) [Entitic mass] 30.7 pg Normal 27.0-34.0 [facility] Comment on above: Performed By: #### 2 633834, 8460884, 2996054, 70676256 ####[address] [address] MCHC (RBC) [Mass/Vol] 34.2 g/dL Normal 31.4-36.0 [facility] Comment on above: Performed By: #### 2 910365, 5530302, 7960333, 46392146 ####[address] [address] MCV (RBC) [Entitic vol] 89.7 fL Normal 80.0-100.0 [facility] Comment on above: Performed By: #### 2 019135, 3777098, 6194349, 35164655 ####[address] [address] Platelet mean volume (Bld) [Entitic vol] 8.9 fL Normal 6.4-10.8 [facility] Comment on above: Performed By: #### 2 516372, 4734985, 8557248, 47124192 ####[address] [address] Platelets (Bld) [#/Vol] 153.0 E9/L Normal 150.0-500.0 [facility] Comment on above: Performed By: #### 2 255368, 3794473, 5132594, 74962183 ####[address] [address] RBC (Bld) [#/Vol] 4.4 E12/L Normal 4.3-5.9 [facility] Comment on above: Performed By: #### 2 903034, 5832248, 1542384, 68112306 ####[facility] [address] [place] [address] WBC corrected for nucl RBC Auto (Bld) [#/Vol] 4.9 E9/L Normal 4.0-11.0 [facility] Comment on above: Performed By: #### 2 280425, 6916030, 7554232, 88817314 ####[facility] [address] [place] [address] CHEMISTRYOrdered By: SYSTEM SYSTEM on 01-28-2022 Anion gap [Moles/Vol] 15 mmol/L Normal 6 - 16 mEq/L [facility] Remisol Calcium [Mass/Vol] [...] rate/Area] mL/min/1.73 m2 Normal >=59mL/min/1. 73 m2 [facility] [place] Chem S GFR/1.73 sq M.predicted among non-blacks MDRD (S/P/Bld) [Vol rate/Area] mL/min/1.73 m2 Normal >=59mL/min/1. 73 m2 [facility] Chem S Glucose [Mass/Vol] 260 mg/dL High [...] FT Remisol Coding Summary.on 01-28-2022 Coding Summary. CD:[id number] Gh 0bWw+PGhlYWQ+QU9XRXJtJ 21tyMLwdM7VN9oQSP0IJTO QPLRAVU3CYQ2bsQO0ZBcnE 2VybiAv KctofOLsOL21BJk5BGT1oI kcRCsqxB5lnZWaC1c1EjZm UL93pY70DEzqUDYiUyP8Xa ZpbjsgbWFy C9iwGtHtbIIkSxt+PHRhYm xlIHdpZHRoPScxMDAlJyBz zNnnCS4fTt4cARYmJACneH xhcHNlOiBj t7piXPLnEBofFR3dzToiM7 GxyOD1ELSwh2w9Kq67bWA+ TLXsHVW7rIwvTHult365Yw Hgl0elUSC6 rNBeVWydMGN3Y73ql2H5YR TmKALtIMR2nSR1dZ6wpHka mpgfU3QzjSMpTqO9UJF5fB SnjB4kmNyy rdakzR0zReo+O64QUM6VMY COHJ4OYyu5J8IiMbpoeHC+ SA57FXTsCM10zCWzpEOtc6 vvwVa6ArJw FYQaHJF3mJtyJCbbk3SmTT FlL37gkLMqc6M8FFWmaLrc iJBjAjGtaIC6sS5qAExibx iif0yfpaqe Lqddq5fvyq01qB32E20qIC wtVARhVBN4HJKyQAGeqHoa xn1crD4zRy8+TDnvb8nuw0 xrxNd7UrGf KEOnczCyxTwvOED4t2KgBj 32T8NtnDuau3WbQvs7jl87 iIBri1O8gFS8PHxcPGFwqU 0rQCaqNuN6 UCYeGtPuyX85uSAxERavJh 8pzXpopZyoAF5zNVNbuuiy MMWbxH1bLADcfRMueKykIG 4wNTBpbjtm o058MfSoLCZ4OZZwkCCiE3 XqxN2eKtSoRDHsGHQbV5Ir mLNxEUzhE342HTgjMzQ3IZ JvbtNrB5Wk FEAkcHfgAeM1q3E8Xh3Yv0 CrqdraCAK4LWkqQRV1ZcIj SmNsZwW4T2SkAyc9KLEjuR wuRC4dH7Ui WERydcpwtvyxbEC8VMEcGJ XuzJ45yZUnFElhEj2kx3A0 i860FMMqTBIviX78Zs3lvK ogMTBwdCBU tV1mapcpu3gulpqcYiNdKT WxAGt0UUt8GDWmhOywGtYp DVU5VhZ3UMS6pIUptI6lbO iftjdslN7v Oyc+B36zyU7jEBH5RGN8cx zgZWHihmGhMT16JJ66J0Cm PjwvdGFibGU+PGRpdiBzdH lcKY9xXaTl f1bud5HuISxjS2MpSNBfOI cvWsd8ZLAiTQW6jES5nX2p ZWBwOFgrp8X0pJJ1P8Tjjg Kmvr1wg3ea KAPiQLmkO45ujXZqk5M9ZS MxrUU1HTLhiGxbSrZwwH65 Oyc+NYXykWqkf1ZfJdktw9 rbz0ezdEs7 NlQiNDIsuaYlrDseNHX1t6 RfUu63N19sNIznAYLsSVFm HXWiEWYbtUsgcf3djC5dYf 8+PGNvbCB3 rRF3iN0rZOQoFnN4DCkiB0 68MjOyfFGcJppyt5dtq1ub qQc2AgLdXJKjggBprWvuXK I0p9PlJi26 X94pXPobNRFxFTTuWKReBX JubOcqpo4quY8qMp6+PC9j c9oyfk89cZ81pBC+PHRkIH V0xFekUKbo NLKgxI9cYCxqInR5VRNzFp NcnZ99rYKjWLhcFp3mdNqq nZdjXH0kQDBabclse233Am Flr3xpHVMc xDJuAHznNGF1D11xg4A9ZF FtLOGlJGV2pYJ4bS0bdNfr bjogbGVmdDsgdmVydGljYW waQGlnF883 IHRvcDsnPlBhdGllbnQgTm EyMTq2L1RhWoy0QWEcjPzt OE4tjBKzALkcYp3naOpdaD biES3kMPUr scfxk181RsOpw2mcVJKahC SqMVnsNMN9S70yz2Q6YJDa RXFrVKN5uJE3vA0lfZcwzk ogbGVmdDsg lvQtjFukHFjiKDdvC817IX RvcDsnPkJpcnRoIERhdGU6 HC19RA15gXPdr7R9jFT1J7 BhZGRpbmct qclzsJF4GYAaUVUsnU53Rd 7sxVclNu3qVVHgLTE2HJIc bDTrV3ZoeL7qMeTfFVRiWE SmN5XekIHi KCqiD249YAcoNdI9VCCrxg SsP7BqBYXcvMheIyE4e0B4 Rw9DZ3U5HQ28SX99rDJsv6 Z5kNG4J1Na OARgrqofxpabrTS9WOPlTO XxzZ73Sp2pzZulAd7hXMVc CGT1WXGxqVZoR0AnqF9fYd AjMDAwMDAw Q9SddHAxYDbrH848TVteLz Q6JONwwlFeG6MgBUZsmWpo OyQ3u0B0Vk5YGRm8QB53JY 26sLDqh1U2 eYF1H3WaFCTcbkeolanrrV K8TJDwHFWifG52Px8ssAsj Ne8kGJDjJFM8AQFfjGNhE6 LrbR9mAnCd WCQtVEGcK6YuvIKvSNfbD7 72IVocVxV5EGPqqyXpX4Dl RVCwmRvnJsH2l7C8Da9TLR NuDA39NQT8 iTF7HY78SX46X3EnKsexuH FibGU+PHRhYmxlIHdpZHRo HJnuXKUrHtPlsNrkUL4fRs 9yZGVyLWNv pRfsqILzQoSai8koZTSiTD aoAI2upEofL9ZxgMY0GHEk d4f9Le31H87mV7JnoTS+PG LndDR6sNB2 kZ6qKzBlAqZ2CApxG063Sf QrhBYeFyauq4hen4ggmFs1 RiT4WEMoggPhkQfgCEN2k2 ZqZk02R31h IHdpZHRoPSIxNSUiIHZhbG bnjs8hwR4rLb3+PGNvbCB3 fCU0zG3jDpKbJnI1NSjuG6 49InRvcCIv Ptcwz1oku0tkdKx8IvSuNI VytmWcdFibZHL5g5DsUl66 N4UrnJqxr9HuGqw7vh72cP Itp8U3pPB8 B1RiWRBxvddbiVBahIhkMA 2aRRNyfhpjQNUlaJ8bCZRd V3y6KxLsVbI4TFdyP8Oplv L1IBHwmSTm PAjoWFG1K01yc8K6VLUxCG SeOEY6cGR8oD7xjNrvaywg bGVmdDsgdmVydGljYWwtYW veG544VKGu yIsaNYWokF5iSVJveWCfzB owMP3yAPXwuilyXoGTDiRW MccfPMQKSEIUSgLVHF24YY 63xCVmt0B8 lDT2C2PnFPYofxshizjljK X4YTYgGQMmnZ33zIUlBFfo Yh1rf9L2s473XKVcQXWprO 66Qi8asAia XZIdkAHOcB2wnocml4ftfu txFbQjZLUsGYf4FJl1NYDg xOjxQtXnSJC3HvP0IMN7oP SjtR2upYum angetK5eXsk+MDUvMTEvMT b6SLewjXA+AURuXGV8nSlv KLcoSZPphM6oEVJlA7f6Bw MqLkF5DHwn J6MxRGMfsyjwXo29pM7cVo EtBiX2GNnfN0RxzvN3RTWh bXZzNRevVTO1A37ir2Y4TH MwMDAwMDA7 kXW6tG2frPvfvfauiJFvkB tpueMboBroKEqrWXtuO731 XGEtgNtpGkM4VFmtXBNcPJ 83YZ67aHOt t1X1lMU8N3TfAJLcsvqwjs ppqVH0VMLpWDGayX13zNFn XAcaHx9vg1K4t859STFiYW LzpS50Su1e oYabFVNrjHVHaT9ohnkwp3 zvwrpgQfDkHHYaEQk3PQa4 DETuyMtaDbMuDDJ5MiU8XJ T2vFPyuP3e mDrohubvhB3uBud+TWFsZT wvdGQ+JGKqVBX1nMcbTPfi XZQprT6zETXpX4i6PpWdSg E2ZNabS1Oh ACGlfodnWj25yQ9sRbDjSt Q7IEtsU7PoueQ8WRWhnICk TLgoOPG2W70sw4Y9SJWmWP QuIRO8yHD3 wT6btVbdnhesfGUlrInnlo YrdLsdZKrlYQnpH240SQLh zJirBx16rCNgyKizrfC5K2 RkPjwvdHI+ YQ20CZBxSD71qEWdxHRvj2 kleAy3AeZrZSWbDDH7iGzr LPqfo1QgRDYyR54yoVOyx3 A2BJVpqFsm qHHyGcHakHN4sM4lBFiovv cqf3rhsvadTuvtw0tjtm50 tL82C87xJOskFKEpCNZfPN UiIHZhbGln xg3ucM6bFj1+ADCerRR3lM S4sJ3tCmVhWnY9PAxnJ611 HbRgdJWrJbgjf5lxr0vnmM c1JkStSROe coRitKwiRIV9e1WcUf31J1 9sIHdpZHRoPSIyMCUiIHZh vCggfi6llR4vEq2+PC9jb2 pzaz73qU42 dHI+RIRiBKG7iAztJFduGL HbiW1gZIsvDsJ6EHRhBrRm fF11hZFbXLhrVu7jkSfyiS mbJL0hKXOv vdaxj426QyCvb7ebTMFtyX WaLCtrHSD8H82wr9R4LGDj XGYsORH4hJO0sW5nsKfxuu ogbGVmdDsg mhYxhIwbLNtjBWhcV765ZI SsfIzxSzZouXMmE6amkrOR EL4kCpqyvTZ+MTNwICH1uM xlPSdwYWRk rO3hTMNtS2m7AqXpRsE6BZ ypC7YkmeZ7PYZlwTHyQXYx bSKFiC7dpgxqj1bgyxvmCi AwMDAwMDt0 KXc6QJMdrAnpTmTnTUS1Pm A8LME6bMJlaN3gcOpvnljw eB4tCht+RklOOjwvdGQ+PH PyTLZ1rLzy FYtgAVDpwQ6dZXFvD5g7Hg HiTlV8FBuiJ7DceyD0YULa lJBfNZPmsCDJcY5pskcln3 xvcjogIzAw OGDkITb6VNn0CZWvmQlqOg NkKBG3EpN0YKW1iQDkeX0b gGznnhmcfX8iUbx+TVJOOj wvdGQ+PHRk MWX0jWjmNVibCBQxxC6fBK DsP8r1VdTxOtM6PGwuU2Kp xqY5EKWwbALdEBQtuIRCkA 8cpuded0lw klynPqIiXAToIWu8UYh7QV UuqNgiWgEiJVN9SqQ7ZAA5 dMRpxO8lrBbyutvmgA7kLa c+RLT4DAZ0 AG13MJ37K3NrYdecxBQdgP U+PHRhYmxlIHdpZHRoPScx WOQnKnStlEwkYI3hNi8gUC VyLWNvbGxh cHNl (more content not included)... Normal [facility] Consent for Treatmenton 12-31 Consent for Treatment [id number]#1.0 0CD:127 Normal [facility] HEMATOLOGYOrdered By: SYSTEM SYSTEM on 01-28-2022 Basophils/100 [...] 7.5 E9/L [facility] HEMATOLOGYOrdered By: Marek Arnlod on 01-28-2022 Erythrocyte distribution width (RBC) [Ratio] [...] 8.9 fL Normal 6.4 - 10.8 fL [facility] Platelets (Bld) [#/Vol] 153.0 E9/L Normal 150.0 - 500.0 E9/L [facility] RBC (Bld) [#/Vol] 4.4 E12/L Normal 4.3 - 5.9 E12/L [facility] WBC corrected for nucl RBC Auto (Bld) [#/Vol] 4.9 E9/L Normal 4.0 - 11.0 E9/L [facility] eGFRon 01-28-2022 GFR/1.73 sq M.predicted among blacks MDRD (S/P/Bld) [Vol rate/Area] mL/min/{1.73_m2} Normal >=59 [facility] Comment on above: Order Comment: Order added by Discern Expert. Result Comment: eGFR is race adjusted. AA=. Performed By: #### 2 617257, 8292339, 4427333, [id number] ####[facility] [address] [place] [address] GFR/1.73 sq M.predicted among non-blacks MDRD (S/P/Bld) [Vol rate/Area] mL/min/{1.73_m2} Normal >=59 [facility] Comment on above: Order Comment: Order added by Discern Expert. Result Comment: Dedicated Owner Operator neil kidney disease could be indicated at eGFR's of less than 60 mL/min/1.73m2. Kidney failure is indicated at less than 15 mL/min/1.73m2. Performed By: #### 2 997149, 6802781, 0045137, [id number] ####[facility] [address] [place] [address] Consent for Procedure/Surger yon 01-27-2022 Consent for Procedure/Surgery [id number]#1.0 0CD:127 Normal [facility] Progress Note-Physicianon Progress Note-Physician [id number]#1.0 0CD:127 Normal [facility] Pre-Certification Formon Pre-Certification Form [id number]#1.0 0CD:127 Normal [facility] Coding Summary.on 01-23-2022 Coding Summary. CD:[id number] Gh 0bWw+PGhlYWQ+MX4GTEIcH 18jlDWhoK9VZ0kDLW4MNGM XIPLSMN5WIO6zmCN2MPaiL 2VybiAv InxeuYQxMF21KMx1FFP8uJ snNRxhbP4smBMuD8j8SbSn AD95dX32PGgiAKLkYnU7Ri ZpbjsgbWFy W4zjKnRpdCZmTdq+PHRhYm xlIHdpZHRoPScxMDAlJyBz fBsjMG8iTv1oPJEuIRCqpD xhcHNlOiBj w8keIZSvUGtrFA5yuOqzH7 ShrSL8PTClv8v2Ze85cIC+ KDOuEOE0cDtmWPcnr213Dk Pcs2zdUPC6 fAPlAKzxOMG2J73tt9A7YL EoUGThGXT0rGP5uB8zuUzy ajhyU7FyfMAvYbZ1XBM9bQ JfrS4noVzt pewreW9aMje+K08VOK5DEZ MHRN5XSnq3N0BaHkqswHN+ KS95ZIGvSA85jOSruZCzc0 sgcTx0GtFl ZDOpMXD2pFelBJqnd4RvAE WzW64flWMda0X1DQKvoXta fELgMcEfaRC7hK7wSZkepo tpd2trwgya Fvpgn0gbdl13hY07S15jWZ ijKMVaJUO6KLOrLPMouZtn xl6ezR3jPr7+WPpjp0pgm7 ijfKe5RnEc KRJehrQhwZahDSM5u8LcJo 09X1LdtEgqd1QdBsa3gk17 jYUxp2G5jCQ3JZtnBHAnzR 4cVFhcGvU2 KNXkNaIouW05lGCsOSwqGl 8eeFrxsPczZF7rVLAntjhl ASKpzS6pTCBiqZFvsYdwQU 4wNTBpbjtm a565CdUeXPL9UEVdvWLfL3 VydU5jByEbHXBrJWRvJ4Fw fIEkXTlyV974EZtbOkE5XJ RtqmJpV1Sj DOEpuEkiDzF6y9A9Cl5Qm8 QezlrkVGM4VObhCKL9IaS9 VgKfUiE6V6CzKgx9MHRqqK tkPP1pM9Eb PYBauoxxznddtOG1UVAhTX DsyB17nXUkJOvuUq9sn9Q4 m937KILwPSVnoC63Yx6byO ogMTBwdCBU xJ8ncdsyc1sswkusOzHyDH NzULb8HLi1UFOvcXnoIeTf OMI2SiB6CMA9xYDsmC4dxG yfpwivgY6l Oyc+B29bhU1zBGC4WYR9fj anGVLexvIpCG93QI02M8Ee PjwvdGFibGU+PGRpdiBzdH zbCO5fBzVj r6odp6FpDPdfC7UdBZUrGG ziFqa7FPJbTOX7sBS2jE5m HSKwCNtfz9P5cRQ7O1Ghwp Dseq4ny1wi EGLmNPlkE86kkVKqm6V2XY DjsEB6NFCrjQjaVeCbcW40 Oyc+GIJryKrav1LtBqjfg8 dsk2wnxGy1 ZvIhGEKgxsBozDrmHVX1n5 XbRo44P74lDBeuKWUwXJEm XFMtLVFwtZlscy0hpA3wRz 8+PGNvbCB3 pUA2bD5iOEEdQhS5LMzpR5 89IuIgrRUkNjpll6ued2kn lEt4YwClOYSklcLuoWpeAJ B1m5HaCz26 G81vQLgtZQYhCRJxFBKuOH VvkAwogp3vhI7lKl0+PC9j w6wlxv36lG33rQI+PHRkIH T2yWaqDGnd DYXkaF2wPBehRmF7BDElEy DrxF30sAYnRGaaQf9mmUvs tSrxTT6dLPTavgjvc712Tx Ukt3weTUSj sRQzFWrpTFX5G47ai1J5IF VoBJOmOYX7gSI2sP9bkKre bjogbGVmdDsgdmVydGljYW vsMOodT566 IHRvcDsnPlBhdGllbnQgTm MbIHw1A6CrNoi0FKDxaHiq LL8dwZXnLWmbJu6dwKogyY joNZ5nZTGt phqew131QdBhi9zoONPczU EqVGjbKYU2M03tl7T3LJYu HIEhYJT1tIV4sP2foNjglg ogbGVmdDsg uzKngAdfOBndAKylH241OK RvcDsnPkJpcnRoIERhdGU6 UD27PJ35wRMpu1W3dWO7B0 BhZGRpbmct gagzhDW8IJNcPAUeaQ64Ww 9xbGoyXt3yZFOmGHR2CROa vHNuW4PjmN2fMxVlSDZvFN PnR3PfgJJc XGwuY360JNjyOnV6GAZode YvL7IiACYcwPldTpQ8t5F0 Hr3FP7V7ZO94LD40tVIjb0 R6yQO6L5Jp FWAsyfcckcahlTX6UJVpIC VukH88Jh6vsJvhQf2uUVUz NCN2KFIvwIAmX2PpgO1zPc AjMDAwMDAw O7WvnBGePLhpA032MEljXt S6SGYorfQbX4RdRKKahJcg SxM6x9T5Mi3HRUe7XY07BC 39hYAgi6N2 iTX9T8OwSREitefasmvvxA R8GGEzUIXfaE37Qj1lpXtu Xj8vOZNwBFL9IDDmxNSmX8 GjmP2uKyMd RAXsMMArV7DpyDSsAEwpH0 74MPumVzE3KHJbofWoT2Lz KWCqoDxuXgM3a7R6Pv6XBU DySO28XJW7 bOM8EE57VO95K9QsWcckbL FibGU+PHRhYmxlIHdpZHRo HKwpEWZiLkWcdUtqZP6yYh 9yZGVyLWNv oIrwfGUqWvWvd2jbUEPbUR fmWT0ggCbpR9ZokWY4YCKn y7h9Fd48J14eL5LhyYO+PG HuoSI1iRH7 sT7qKbBeHnO8GEpiP795Kz HaiFUwEecuh7bui6kksOe0 XuS4YYPzgtSmlCxuMXY8h8 ShLw48O06j IHdpZHRoPSIxNSUiIHZhbG pdkk9nqV3mHj7+PGNvbCB3 oOR1rL2wNsRiMbX3BOqwN3 49InRvcCIv Fvwrh0iel7pclOx7EqIbTL EqqyOrxKjqLKX5w0BtXe83 D6EryKias4HbDba6na17aW Lpz0N2hLK3 R6GoVXWntrafzPZgaIveOS 5iOJTchyqrSURcfQ9yJRDn Z9f4VfKjDwN2ZWviK0Ueim Z4VZXfwBEj AQllUQZ1C57cp6S1MHZmZG DfJDE7zCO5pL5fuBkwzizk bGVmdDsgdmVydGljYWwtYW tgX978YACp xCaxGUFieN9iBFMwzXHahG wyXG4qJAGekpphTaLDSvQH FkrxBQSKUUDGYqOXMC19PM 40mBNek3M9 zRI9Z8JsEPLcxovqsravoQ X5KXXwSFBasO80oDUiWWbq Bg0xg2L5j349HKUjJTBxqV 56We2gjEix ZBCbwMPThM7xgwsrg4wodu hnQxAaPLKxJBh0HYz1CXYo uTqiMqSfLIF6WjU5PCY0nG CowW9saFvu okhycR9jWve+MDUvMTEvMT y3OOwxoJB+GCGdMLW6mJnl ZXulWJMnqV4hHIKzE8l2La ExUiE6FAvc R7HzSFAekhhaSr38nW1wFx MeGwT9UFxjQ5HlqlL7RQGu aEGjNUtlKWS9P02at0S1RL MwMDAwMDA7 qYP0qO5euDuyzcducDYwcY baygOlzDwcQEkyQAhfE305 CRYgjMdiMuN1CHxqLAFmVV 77QX65iFRh u4X7iWF9B0PqYANrkvisuk hzfYH6WNQnPYEgiA78wVQx SXrdQz1gw2Z1x326RGPnLW UziN65Ff8v gKmeDIBhmNQKlJ9mqjljo8 gyaefqEiAnMFKdEKw5CAl6 EMJwfKpvUoTmFQU0AxE0PF L5oAPhuT4x mUlbncadrD4nGea+TWFsZT wvdGQ+NHAjCNI1jKpgQYiq ABCchK2hNFZpR0i0BjGzTs N6MXvwY1On KIUxklohQe68zT4qKkIsJf X0IUhxF1OmskK3JJSbsGFu DYeaCMW0O91ao8S1MQFnYZ OuCSB9hME3 qW9nsFtnkklxkLPdjBqbhw CfcMhwJKlpCYhyS544AQJk kWclBlAlP2BvpgbrHnxxkA Q+GY94aw89 W9DiWtreXmu9DUNbAFB8cA P6fS5oLGUgLQpwi5G6xIY9 Z9TwyoOsrf2yp7znEHHaMK huF23dqMHh n3L7QZXgnIJ5ZHTktCzsRv PutD30Kgo+OPGysPfcb7Oi Nxwwp9mal5rymUj1LwScKO IgdmFsaWdu PEF2q6UaRd47S65xIIsmVS DuZPMjAEEmYDClpQpebk8d wT4tKh8+EDGueCB4nBZ1sP 1qHtGjNdM9 ZEnpH648ErTdpTJgDndut1 lxa5wadGt9WmEpPGLxoxOk zSlpOAB0z3EmEv92S6LpuS svo9UuCvl7 pq26pVIil2J7fVY2P9NqLO YkpmtpyGNdlEchZI4fKCNx xbocMQClkS6oYQPpG1j5Hp YmThV4MXif V3KekxI5AZIvaYYkOOWotE HTaZ4miejnr6vdbvwcXpRi DZLdHIo7KCq9EOVktPegCb SnGDL3JcD4 NEF1yYYctT3zeUlyuzmogB 9wOyc+ZVf5k8fkwLAvVX5h hZR7VJ65HC25lYDnd1B4zQ G1Y2DrODEf ygxkqttbhBV6LQNrEEEstA 73Gy8luVqtWu3tFYDmXCY9 STSacAPcR4LjjC9nCcOmGA NoQCJxJ5Fv tWUrLTfvC951DQrcSeJ0PK HwdhEqS7GdEYZzuEdnDwY6 u5Z7Ap0HLL04HC68MS04rN Vng7F2rHZ2 V7NgVNVbbvvkndhtqFZ0MO VsMOKmgA87Fq9seZqtIj4j LNWcKKP8ANBrvUJiJ9QldH 9yOiAjMDAw YTXmT1TbcNSyTAmiM911DA dgHcA4FQBcnnPuW2ZzZPLk nWqnQeS8o7Y4Bb7VJs84DH 63YU91dAOs l6H5hPG5U7FkRQGaaaowwn ouvXN0WSLjGVRbcO84Ou7w eMylRz8uJUVzSBN6JBSxeU PjJ0PvyN0p XjBlAWKoKABeI4QnsPIfVR qcV041PHefNqA7HVMdmcSa I9HeLNTgwWrqEmU9y1P5Pi 5XMQouaes0 W8HnKjdnrNM+DY49QODkCP 08lVHnmZWed6pyuFn5PyAr BIFwTZV3fAfmQFjjp3JvGO HuY15woACd c2U6 (more content not included)... Normal [facility] Consent for Treatmenton 12-30 Consent for Treatment [id number]#1.0 0CD:127 Normal [facility] Heart and Vascular Office/Cl inic Noteon 01-23-2022 [...] in office. He had echocardiogram performed at [facility], which was normal. He was ordered Event [...] protocol. [1] patient was then referred to [place] and was placed on sotalol followed by [...] with speaking. He does not have a mortgage collector and recently underwent pulmonary function tests which were performed last week with results pending. He is taking and tolerating his medicines well. He has had no exertional chest pain symptoms prior to his COVID infection. 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 His daughter works here at [employer] and was present for his visit. Patient is now her (more content not included)... Normal [facility] Comment on above: Result Comment: Elec tronically Signed By: Camilo STARK, Kushal Galarza\.rita\Date and Time Signed: 01/23/22 14:23 EDT Stress EKG Tracingson 2021 Stress EKG Tracings [id number]#1. 00CD:127 Normal [facility] NM Myocardial Spect Part 2on 01-22-2022 NM [...] Stress Dose (mCi Tc99M Cardiolite): 29.9 Normal [facility] Consent for Treatmenton 12-30 Consent for Treatment [id number]#1.0 0CD:127 Normal [facility] CT CHEST WO CONon 01-19-2022 CT CHEST [...] by: LORENA ANTONIO Date: 2022-01-19 17:17 Normal [facility] HEMOGLOBINon 01-19-2022 Hemoglobin (Bld) [Mass/Vol] 13.2 g/dL Critically low 14.0-18.0 [facility] Comment on above: Performed By: #### H GB #### [facility] [address] [place], [place] [id number] Dr. Maria T Canela Pre-Certification Formon Pre-Certification Form [id number]#1. 00CD:127 [facility] TSH - Thyroid Stimulating Ho mckenna, Serumon 12-31-2021 TSH Qn 1.65 m[IU]/L See Below [facility] o Heart[facility] [address] DO Work Phone: Comment on above: Reference Range: 0.4 4 - 3.98 TSH testing is performed using different testing methodology at [facility] than at other [facility]. Direct result comparisons should only be made within the same method. Tobacco Screening.on Adult depression screening assessment No [facility] [address] DO Work Phone: Fall risk assessment a) No falls within the last year [facility] [address] DO Work Phone: Tobacco use status CP b) No [facility] 320 DO Work Phone: Outside Recordson 12-30-2021 Outside Records [id number] 20 [id number]#1.0 0CD:127 [facility] Coding Summary.on 12-24-2021 Coding Summary. CD:[id number] Gh 0bWw+PGhlYWQ+UG5AMTVnC 81elUQbdO2XT9iLKX8LVPX CKBTXRK8XKU4mtUO4HEkmS 2VybiAv XflgcSFyPX39IJz2JYV2bZ bqZDhfkN1bbZUqG8z1AqAi AI80eT54OSxaGPHiNnB9Mt ZpbjsgbWFy B5rrGqMaiMZpHte+PHRhYm xlIHdpZHRoPScxMDAlJyBz nXfxDP8bIi3iURGlUKMpsD xhcHNlOiBj f3ubFZOvUEjqOT1juFjaX7 FhzRF8GZSpt0x2Dl23eVI+ AZGlDPP4dRqmDJgas924Ct Yis3ypXPX9 bIApXHsaXOO2S59uq2D5OY ZoPRGyANF5pPS5nU2nwAyn nuisJ0CjkVOiIvB5PGH8mT IezS2rjNsl yqgcfJ6yEwx+K97IUY0KTO NOXE1KJld9L2OlWehmzCC+ SI54SMLdCZ80rBKldUZme2 hpsFy8JnAm DSThJEV4wJdqZBule1UwYS QwS87xkRLev6C3DAZycOko vNJvEnXzfQE9jK5xLQlspy aow2qlnlxr Zexlh4kxeb93rV57S41vLH snBHOoDLK9LHRjGTGmyAnd hf3wfL1sLb7+PWtrn7chj0 dolHq6HcXn YYYawbUraLhzTQI9c5KnLm 20C5HuyQhuj0SoIzl0fz37 vCBdc1C8sTL6RWrqCPPvhX 3lRRyfKnW8 PCRrHtAxgB97rJFkSOtgZk 1ooUnjmNxhUG3nAWPjevpq TBMkfQ9tXTXriPGctPmmYA 4wNTBpbjtm c971RxFoKUK0BDAdvBCyS3 MdfZ9fViTcVARkFJNdS5Ho jKJgFDwjN065UFuhZkD2VK EjkxKzK9Qo ZGVeyGwsDhW8f7S1Pb8Jf8 MehumnWSM9LDztBIE0LgE0 NaTqJjM3Q0ElTkv5APXxjG uzYL9dV4Sn NXXmsnrcyqeurLO0CNHtJF HmrU00lJFbNUaaIx2zr7F9 t094RILfFEJvvP89Yi4wpS ogMTBwdCBU aE4fvzdpy2oxlteiLcQbVO XdNRe4WRq2ISTvcXovScSm CPI8TcX7CSH1kQZjaC0ebE pzynxxbJ3h Oyc+P19eaM8tHMW5YGW8mq twCKAenbXoUF28TC39I5In PjwvdGFibGU+PGRpdiBzdH lwDC5cYcIz v4fss4FxLIcuE5PaKCIlQP dcMqz5LOWvGRQ3bQK5rO4u AUJtXYpey6O7dEY4T3Pjjn Pniq9yt6oo WBCqVHxfK01aqPXgj4I7YQ RloHW9PIVdgNlgGhEtwO94 Oyc+TBIqqBlgw8ToJbtqd9 wbs1iirZh9 BgWbGBKqtqGvvRmkTRD5e4 LeQp12Z57uIPlwYYMcCSAk MUDaEQYyfOnpuq4bbM0oKi 8+PGNvbCB3 mAO8pD8yTDLoCsK9RIagQ8 45XdSxuCYtMvtdn0mqd4wp hOo9JcMjTBBiukHdhDotUY Y6o4KnYz35 D52qZCrzLNOsDVUbKZSnAD RysXxkek8bhU8uPg3+PC9j i3bges57fR39oIG+PHRkIH N6vWdbUGuj AXZhrQ1hMJqgFjB9YZUqNs YubU17tDBuNIwaAb5vhOka kVsfIC1gQYWkaiwni436Fs Tkn3faSVSm rGHlPHeuMKO2U46pn2O5PJ KmQFLyCVF6oBJ3wR4cxUoh bjogbGVmdDsgdmVydGljYW huECbrO946 IHRvcDsnPlBhdGllbnQgTm NpMIx0N0GcUqq3MCHvzJnf CJ5smCTiNMhaCo4oqRqiaA cuMU1sGDNp mssus413DaKvq9elCGLxlF HfPPvcXXR5P43jb7C8OAIp NGEjXBD6tOM9gE0wxLwzju ogbGVmdDsg vqYmzKudRHkiOEanH829GZ RvcDsnPkJpcnRoIERhdGU6 CO76FK58lVQul6O8hXD8S4 BhZGRpbmct avpwgAD2VEDlSWVafK51Oe 4fhVbeJw3qVBGuTBW1GSDc iYIwV0WjuA2gKqDaMMKsHD MgD0TcvQPc CAjjK861JSbjYcN8UHVinq KfL6HsARMmnWsjSzD7u8O7 Jj2XX6A0OJ77MO22iAEui8 M9yVT1F0Hs BSWdepqwwysmsVM0CEWeTY QerR50Nf5ybMvjBq5aBVGa EON3TMOfzEQgB8LktQ5zLe AjMDAwMDAw L4NudODuOGjbC811MNokTy H7HPLeaaDkW2XfBNUaqNwu FfS7i8L2Sb8ITCn5NZ56KQ 24bRAmm0L2 uDN3Y9GuMUEpibbxjdjwbD X2MBGhQHObbX58Fo6trYkl Cm2kEBCzNFT6KEDgtPCeB2 EbnG2jLuSy YDPfXFRgT1UgwILsCLfnN0 90WYfzKsF3MDVpepCfS4Hm GFRwsCzrZkO9r6K8Jh4FRR XzHB22YUH6 yIA4MQ07PC67N4AuJoytiL FibGU+PHRhYmxlIHdpZHRo RNxtPWTkEzScyFqcRA8lZg 9yZGVyLWNv pMpmeHVrAbPyn8lnMQDeUC jsMT9wjDxoL3RorQN9ZLVb s8c1Rf72M20xQ9ZabSS+PG TbpTB0vJK1 nS1kFhDbQsO4HBewX261Zc RcqZEvYbhux0zkz1qkjNp4 EwY3MIShwbIpePfmUAB9b5 DxTw89P35r IHdpZHRoPSIxNSUiIHZhbG vymr5noG9cXc0+PGNvbCB3 vGS1kU4gLyDhFdK9MNdgF7 49InRvcCIv Uugfl9gcp0enzHc7AhNrEJ CnbuOxoDeqMSX0a0TmRx47 W8FaoZwtf1HnNsw7gd50xX Vej5C9yNB1 C2RaGASkfckxmMIwcAjsIV 9kODCmfvohNMFecV0lXDCs I0o2FyPlEaX1DVlzW2Eptq T3KBXjyWLi XOwvCNE0C39vz8E7EJXbGW EoJGV4hQF2sD8chPdkbxjr bGVmdDsgdmVydGljYWwtYW mpF860LFSh nTnhNMXutE1iFTTpmIIhfL sjPG8iMRUxldjhHcLLKrIF DszzBKFDRFBWLrYMVD11DD 26kHWcg2X9 pRX4Q6IkFBJtmlhhknpzuF Y4MIHqVUVfmR65qWQuJHna Ug0sq9D0f994DAMqLHVgnK 73Fw1ewRbp TJDnzPYDsC5bpfpgf9lbwh fcXqOfDNJkXKj7FBw9TPHe bSloScTkOXF4UdN5VXK4sH UilK0luEeh dnhxtX3yYph+MDUvMTEvMT r1UKxkcUR+CFFwOUJ1sNtu BYxcMDJazA7hRIEdA1m4Rk FdSdU4CWlk M8EnGSWwvnnxJg54jO3iKc AjYpX7KDyzR0IuhuD0EFTn mKLdGWbaKRF9L64xs7Q2MB MwMDAwMDA7 sQD7gF4mtSptgistlHIopQ mirgLmiRwnFUadTXnjW792 JYIinCyoDcF3ZVieKKLfCY 87MU15bLHv x8C3iGV1Q9VoCDHlpoynov ggrRA8JRLeAJChkX44pKVi WEwfDo0gn7B5o733NIZfMB YhoT11Kv5n jYykMFMbwULSsS9pxbdgd9 msqdskDgZsDJVgORd9VJb2 MDZssHvvKzXnJNF8TnU1EE J8rFLwvA9g aAfzdrstkL7tDqc+TWFsZT wvdGQ+PMHzAXK9kFdjWXms BAMtpE4sNOZzS6i6FbKwUm Y5PImkC3Rt ZAEcteqyWg20rC9cBeMzPw X5GOduC4JlfhK9GSFedUUe LZspVFO1Y38ia5O3HQXtRQ QrNKH7hAP1 vI1whDdmeyvawNJamXscux TuhTcyPKbuEWdqD240AVTj cUxgGx04wOSiuGxmutD8F3 RkPjwvdHI+ DH98DKAkTL15zAYziSEco3 qscAj9IfYrDSNwXLA1tBvy UFwvt8UbBGSxC53muLZnr2 G0CPLtkCkr gWWtAjWckDA5oP8aMJspew itp9cxbwjnQyhfa5hybs97 iJ83S89uHQnaFDQzXVXlJV UiIHZhbGln zi6brV1bBn3+GBUpvBR7mV F1nJ3iNjNgNgS1DGveF723 KfQvzZIaXkurp2lvi7gzgY a5BgGpOUCu frGmfAwjEVI9o4HiUq41M8 9sIHdpZHRoPSIyMCUiIHZh sPsdez7bmA0nNv6+PC9jb2 fmas04kO22 dHI+WSYdDJC7wGeoRBcwVK SwzS3gTQspCmI0WXTcGdPv nH65wTSjIUcvSx5imMczdO fxBW6lPLTi oigab837PrMvf2ipGPPczT ClGLrvZLA6H83sj1R9CIZs YQKeHNO2mLW0yE5dfOkzot ogbGVmdDsg xuSkgGgtOQtuQLdaG718UP JuaTfjIeBtuTUrU9szdjRJ CF7iDofowUZ+IHXkNYE2kC xlPSdwYWRk fW1vTSYuE1o2RkSxYsP2QS eaU7JfwiL0PZGuhERjJCZa lGVFsZ5jasjqe2ylbixyZh AwMDAwMDt0 VZm3KMDcdMrlFtOpOUQ8Bs K3JQA3jPQsdG3vySzmyewa rV7nFtj+RklOOjwvdGQ+PH HlQLF8vNnc OSjgGFTeoY8qYHBqY6p3Xv RgIfJ2WMzaO8NjqgR0LYVz rCMeUKMslDTOyN5hhcspv9 xvcjogIzAw VOGqGTu3DXs7VNNljBpnFg HvKIH0UeE4GUB3oTUfwQ9v kMzuxrpczM3iYnc+TVJOOj wvdGQ+PHRk LKD0tRchGGwzCYQcwD7yUP ClL7v3IaMlNjO7PClvU2Cx uaB9CJLefGBaDQWgjPDWiO 4yzmcli2yf kdlmPbXyIKGzQKs8VDf2FN QlySqvTsCbGNP1RkW6WWY5 oSImhE0opFowqwfyxZ3hLl c+FRX1PIS4 JB27OT55Q5ZgBtbcoSRnlT U+PHRhYmxlIHdpZHRoPScx ZMGiLxKugYmnDL7jNv6dZJ VyLWNvbGxh cHNl (more content not included)... Normal [facility] Consent for Treatmenton Consent for Treatment [id number] [id number]#[id number] 0CD:[id number] [facility] Heart [facility] V[facility] Office/Cl inic Noteon 12-05-2021 [...] in office. He had echocardiogram performed at [facility], which was normal. He was ordered Event [...] with speaking. He does not have a mortgage collector and has an appointment with his PCP this upcoming Wednesday. He is taking and tolerating his medicines well. He has had no exertional chest pain symptoms prior to his COVID infection. 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 His daughter works here at [employer] and was present for his visit. In [...] perfusion R (more content not included)... Normal [facility] Comment on above: Result Comment: Elec tronically Signed By: Camilo STARK, Kushal Moran.br\Date and Time Signed: 12/05/21 15:17 EDT Progress Note-Physicianon Progress Note-Physician [id number]#1. 00CD:127 Normal [facility] Tobacco Screening.on 021 Fall risk assessment b) One or more fall s in the last year [facility] [place] [address] DO Work Phone: Tobacco use status CPHS b) No [facility] [address] DO Work Phone: Tobacco Screening. Yes [facility] [facility] DO Work Phone: COVID-19 Lab [facility]on 10-05-19 21 SARS-CoV-2 (COVID-19) RNA PATTIE+probe Ql (Unsp spec) Not detected Normal Not Detected [facility] Comment on above: Order Comment: Healt hcare Worker?: N Result Comment: This nucleic acid amplification test was developed and its performance characteristics determined by [employer]. Nucleic acid amplification tests include RT- PCR [...] detected) result in this assay. PERFORMED BY: [place] [address] [place] [address] PATHOLOGIST [employer]ING [employer]ONG TABLE ASSEMBLER SAMEER HARDIN M.D. Performed By: #### C ORONAVIRUS #### [facility] , Vital Signs Date Time Vital Sign Value Performing Clinician Facility 10-04-2023 13:56-0400 Body height 177.8 cm Margret Stevens MD Work Phone: [facility] 10-04-2023 13:56-0400 Body mass index (BMI) [Ratio] 52.8 kg/m2 Margret Stevens MD Work Phone: [facility] 10-04-2023 13:56-0400 Body weight 166.92 kg Margret Stevens MD Work Phone: [facility] 10-04-2023 13:56-0400 Diastolic blood pressure 64 mm[Hg] Margret Stevens MD Work Phone: [facility] 10-04-2023 13:56-0400 Heart rate 61 /min Margret Stevens MD Work Phone: [facility] 10-04-2023 13:56-0400 Systolic blood pressure 128 mm[Hg] Margret Stevens MD Work Phone: [facility] 07-19-2023 15:30-0500 Body height 177.8 cm Margret Stevens MD Work Phone: [facility] 07-19-2023 15:30-0500 Body mass index (BMI) [Ratio] 52.37 kg/m2 Margret Stevens MD Work Phone: [facility] 07-19-2023 15:30-0500 Body weight 165.56 kg Margret Stevens MD Work Phone: [facility] 07-19-2023 15:30-0500 Diastolic blood pressure 88 mm[Hg] Margret Stevens MD Work Phone: [facility] 07-19-2023 15:30-0500 Heart rate 65 /min Margret Stevens MD Work Phone: [facility] 07-19-2023 15:30-0500 Systolic blood pressure 138 mm[Hg] Margret Stevens MD Work Phone: [facility] 05-07-2023 11:45-0500 Body height 175.26 cm Kelly Lucinda Other [employer] Other 05-07-2023 11:45-0500 Body mass index (BMI) [Ratio] 53.3 kg/m2 Kelly Lucinda Other [employer] Other 05-07-2023 11:45-0500 Body temperature 97.2 [degF] Kelly Lucinda Other [employer] Other 05-07-2023 11:45-0500 Body weight 163.75 kg Kelly Lucinda Other [employer] Other 05-07-2023 11:45-0500 Diastolic blood pressure 93 mm[Hg] Kelly Lucinda Other [employer] Other 05-07-2023 11:45-0500 Respiratory rate 18 /min Kelly Lucinda Other [employer] Other 05-07-2023 11:45-0500 SaO2% (BldA) [Mass fraction] 95 % Kelly Lucinda Other [employer] Other 05-07-2023 11:45-0500 Systolic blood pressure 159 mm[Hg] Kelly Lucinda Other [employer] Other 03-08-2023 09:30-0400 Body height 175.26 cm Beena Benítez Other [employer] Other 03-08-2023 09:30-0400 Body mass index (BMI) [Ratio] 55.67 kg/m2 Beena Benítez Other [employer] Other 03-08-2023 09:30-0400 Body weight 171.01 kg Beena Benítez Other [employer] Other 03-08-2023 09:30-0400 Diastolic blood pressure 85 mm[Hg] Beena Benítez Other [employer] Other 03-08-2023 09:30-0400 Systolic blood pressure 145 mm[Hg] Beena Benítez Other [employer] Other 02-15-2023 14:33-0400 Body height 177.8 cm Beena Benítez Work Phone: [facility] [employer] [address] DO Work Phone: 02-15-2023 14:33-0400 Body mass index (BMI) [Ratio] 53.38 kg/m2 Beena Benítez Work Phone: [facility] [employer] [address] DO Work Phone: 02-15-2023 14:33-0400 Body surface area Derived from formula 2.72 m2 Beena Benítez Work Phone: [facility] [employer] DO Work Phone: 02-15-2023 14:33-0400 Body weight 168.74 kg Beena Benítez Work Phone: [facility] [employer] 250 DO Work Phone: 02-15-2023 14:33-0400 Diastolic blood pressure 82 mm[Hg] Beena Benítez Work Phone: [facility] [address] DO Work Phone: 02-15-2023 14:33-0400 Heart rate 64 /min Beena Benítez Work Phone: [facility] [address] DO Work Phone: 02-15-2023 14:33-0400 Systolic blood pressure 138 mm[Hg] Beena Benítez Work Phone: [facility] [address] DO Work Phone: 11-23-2022 17:11-0400 Diastolic blood pressure 84 mm[Hg] Beena Benítez Work Phone: [facility] [address] DO Work Phone: 11-23-2022 17:11-0400 Systolic blood pressure 138 mm[Hg] Beena Benítez Work Phone: [facility] 250 DO Work Phone: 11-23-2022 15:32-0400 Body height 177.8 cm Beena Benítez Work Phone: [facility] [address] DO Work Phone: 11-23-2022 15:32-0400 Body mass index (BMI) [Ratio] 53.95 kg/m2 Beena Benítez Work Phone: [facility] DO Work Phone: 11-23-2022 15:32-0400 Body surface area Derived from formula 2.73 m2 Beena Benítez Work Phone: [facility] DO Work Phone: 11-23-2022 15:32-0400 Body weight 170.55 kg Beena Benítez Work Phone: [facility] [address] DO Work Phone: 11-23-2022 15:32-0400 Diastolic blood pressure 90 mm[Hg] Beena Benítez Work Phone: [facility] [address] DO Work Phone: 11-23-2022 15:32-0400 Heart rate 82 /min Beena Benítez Work Phone: [facility] [address] DO Work Phone: 11-23-2022 15:32-0400 Systolic blood pressure 148 mm[Hg] Beena Benítez Work Phone: [facility] 250 DO Work Phone: 10-05-2022 14:45-0400 Body height 177.8 cm Beena Benítez Work Phone: [facility] [address] DO Work Phone: 10-05-2022 14:45-0400 Body mass index (BMI) [Ratio] 53.81 kg/m2 Beena Benítez Work Phone: [facility] [address] DO Work Phone: 10-05-2022 14:45-0400 Body surface area Derived from formula 2.73 m2 Beena Benítez Work Phone: [facility] [facility] DO Work Phone: 10-05-2022 14:45-0400 Body weight 170.1 kg Beena Benítez Work Phone: [facility] [address] DO Work Phone: 10-05-2022 14:45-0400 Diastolic blood pressure 84 mm[Hg] Beena Benítez Work Phone: [facility] [address] DO Work Phone: 10-05-2022 14:45-0400 Heart rate 52 /min Beena Benítez Work Phone: [facility] 250 DO Work Phone: 10-05-2022 14:45-0400 Systolic blood pressure 126 mm[Hg] Beena Benítez Work Phone: [facility] [address] DO Work Phone: 08-17-2022 15:25-0400 Body height 177.8 cm Beena Benítez Work Phone: [facility] 250 DO Work Phone: 08-17-2022 15:25-0400 Body mass index (BMI) [Ratio] 53.38 kg/m2 Beena Benítez Work Phone: [facility] 250 DO Work Phone: 08-17-2022 15:25-0400 Body surface area Derived from formula 2.72 m2 Beena Benítez Work Phone: [facility] [address] DO Work Phone: 08-17-2022 15:25-0400 Body weight 168.74 kg Beena Benítez Work Phone: [facility] DO Work Phone: 08-17-2022 15:25-0400 Diastolic blood pressure 78 mm[Hg] Beena Benítez Work Phone: [facility] [address] DO Work Phone: 08-17-2022 15:25-0400 Heart rate 66 /min Beena Benítez Work Phone: [facility] [address] DO Work Phone: 08-17-2022 15:25-0400 Systolic blood pressure 124 mm[Hg] Beena Benítez Work Phone: [facility] [address] DO Work Phone: 07-06-2022 15:45-0500 Body height 177.8 cm Beena Bentíez Work Phone: [facility] [address] DO Work Phone: 07-06-2022 15:45-0500 Body mass index (BMI) [Ratio] 53.38 kg/m2 Beena Benítez Work Phone: [facility] 250 DO Work Phone: 07-06-2022 15:45-0500 Body surface area Derived from formula 2.72 m2 Beena Benítez Work Phone: [facility] 250 DO Work Phone: 07-06-2022 15:45-0500 Body weight 168.74 kg Beena Benítez Work Phone: [facility] [address] DO Work Phone: 07-06-2022 15:45-0500 Diastolic blood pressure 80 mm[Hg] Beena Benítez Work Phone: [facility] [address] DO Work Phone: 07-06-2022 15:45-0500 Heart rate 64 /min Beena Benítez Work Phone: [facility] [facility] DO Work Phone: 07-06-2022 15:45-0500 Systolic blood pressure 118 mm[Hg] Beena Benítez Work Phone: [facility] [address] DO Work Phone: 06-15-2022 11:15-0500 Body height 175.26 cm Beena Benítez Other [facility] [employer] Other 06-15-2022 11:15-0500 Body mass index (BMI) [Ratio] 55.81 kg/m2 Beena Benítez Other [facility] [employer] Other 06-15-2022 11:15-0500 Body weight 171.46 kg Beena Benítez Other [employer] Other 06-15-2022 11:15-0500 Diastolic blood pressure 88 mm[Hg] Beena Benítez Other [employer] [facility] [employer] Other 06-15-2022 11:15-0500 SaO2% (BldA) [Mass fraction] 97 % Beena Benítez Other [employer] Other 06-15-2022 11:15-0500 Systolic blood pressure 130 mm[Hg] Beena Benítez Other [facility] [employer] Other 03-09-2022 11:20-0400 Blood Pressure Location Kushal Page [facility] 03-09-2022 11:20-0400 Diastolic blood pressure 76 mm[Hg] Kushal Page [facility] 03-09-2022 11:20-0400 Heart rate 60 /min Kushal Page [facility] 03-09-2022 11:20-0400 Respiratory rate 18 /min Kushal Page [facility] 03-09-2022 11:20-0400 SaO2% (BldA) [Mass fraction] 98 % Kushal Page [facility] 03-09-2022 11:20-0400 Systolic blood pressure 140 mm[Hg] Kushal Page [facility] 02-05-2022 06:41-0400 Blood Pressure Location Kushal Page [facility] 02-05-2022 06:41-0400 Diastolic blood pressure 82 mm[Hg] Kushal Page [facility] 02-05-2022 06:41-0400 Heart rate 56 /min Kushal Page [facility] 02-05-2022 06:41-0400 Respiratory rate 20 /min Kushal Page [facility] 02-05-2022 06:41-0400 SaO2% (BldA) [Mass fraction] 100 % Kushal Page [facility] 02-05-2022 06:41-0400 Systolic blood pressure 150 mm[Hg] Kushal Page [facility] 01-23-2022 14:04-0400 Blood Pressure Location Kushal Page [facility] 01-23-2022 14:04-0400 Diastolic blood pressure 67 mm[Hg] Kushal Page [facility] 01-23-2022 14:04-0400 Heart rate 70 /min Kushal Page [facility] 01-23-2022 14:04-0400 Respiratory rate 18 /min Kushal Page [facility] 01-23-2022 14:04-0400 SaO2% (BldA) [Mass fraction] 97 % Kushal Page [facility] 01-23-2022 14:04-0400 Systolic blood pressure 140 mm[Hg] Kushal Page [facility] 12-31-2021 11:54-0400 Body height 177.8 cm Beena Benítez Work Phone: [facility] [employer] DO Work Phone: 12-31-2021 11:54-0400 Body mass index (BMI) [Ratio] 52.95 kg/m2 Beena Benítez Work Phone: [facility] [employer] DO Work Phone: 12-31-2021 11:54-0400 Body surface area Derived from formula 2.71 m2 Beena Benítez Work Phone: [facility] [place] [address] DO Work Phone: 12-31-2021 11:54-0400 Body weight 167.38 kg Beena Benítez Work Phone: [facility] [address] DO Work Phone: 12-31-2021 11:54-0400 Diastolic blood pressure 84 mm[Hg] Beena Benítez Work Phone: [facility] [address] DO Work Phone: 12-31-2021 11:54-0400 Heart rate 67 /min Beena Benítez Work Phone: [facility] [address] DO Work Phone: 12-31-2021 11:54-0400 Systolic blood pressure 138 mm[Hg] Beena Benítez Work Phone: [facility] DO Work Phone: 12-05-2021 15:01-0400 Blood Pressure Location Kushal Page [facility] 12-05-2021 15:01-0400 Diastolic blood pressure 69 mm[Hg] Kushal Page [facility] 12-05-2021 15:01-0400 Heart rate 70 /min Kushal Page [facility] 12-05-2021 15:01-0400 Respiratory rate 18 /min Kushal Page [facility] 12-05-2021 15:01-0400 SaO2% (BldA) [Mass fraction] 98 % Kushal Page [facility] 12-05-2021 15:01-0400 Systolic blood pressure 118 mm[Hg] Kushal Page [facility] 04-23-2021 16:19-0500 Body height 177.8 cm Beena Benítez Work Phone: [facility] [address] DO Work Phone: 04-23-2021 16:19-0500 Body mass index (BMI) [Ratio] 51.94 kg/m2 Beena Benítez Work Phone: [facility] [address] DO Work Phone: 04-23-2021 16:19-0500 Body surface area Derived from formula 2.69 m2 Beena Benítez Work Phone: [facility] [address] DO Work Phone: 04-23-2021 16:19-0500 Body weight 164.2 kg Beena Benítez Work Phone: [facility] [address] DO Work Phone: 04-23-2021 16:19-0500 Diastolic blood pressure 62 mm[Hg] Beena Benítez Work Phone: [facility] [address] DO Work Phone: 04-23-2021 16:19-0500 Heart rate 65 /min Beena Benítez Work Phone: [facility] [address] DO Work Phone: 04-23-2021 16:19-0500 Systolic blood pressure 108 mm[Hg] Beena Benítez Work Phone: [facility] [address] DO Work Phone: 10-09-2020 14:30-0400 Diastolic blood pressure 66 mm[Hg] Beena Benítez Other Phone: [facility] 10-09-2020 14:30-0400 Heart rate 50 /min Beena Benítez Other Phone: [facility] 10-09-2020 14:30-0400 Systolic blood pressure 133 mm[Hg] Beena Benítez Other Phone: [facility] 10-09-2020 13:00-0400 Body temperature 96.8 [degF] Beena Benítez Other Phone: [facility] 10-09-2020 13:00-0400 Respiratory rate 19 /min Beena Benítez Other Phone: [facility] 10-09-2020 13:00-0400 SaO2% (BldA) [Mass fraction] 98 % Beena Benítez Other Phone: [facility] 10-09-2020 02:15-0400 Body weight 159.4 kg Beena Benítez Other Phone: [facility] Encounters Encounter Date Encounter Type Care Provider Facility Start: 10-04-2023 End: 10-04-2023 ambulatory [facility] Ambulatory Start: 10-04-2023 End: 10-04-2023 Office outpatient visit 25 minutes Margret Stevens MD Work Phone: [facility] Comment on above: SOB (shortness of br eath); Edema, unspecified type; Chronic systolic congestive heart failure, NYHA class 2 (Multi); Ischemic cardiomyopathy; Coronary artery disease involving [place] coronary artery of [place] heart without angina pectoris; Paroxysmal atrial fibrillation (Multi); Lower leg edema; High risk medication use; Hypercoagulable state due to paroxysmal atrial fibrillation (Multi); Unspecified atrial fibrillation (Multi); Sleep apnea treated with continuous positive airway pressure (CPAP); Mixed hyperlipidemia; Medication course changed Start: 07-19-2023 End: 07-19-2023 ambulatory [facility] Ambulatory Start: 07-19-2023 End: 07-19-2023 Office outpatient visit 25 minutes Margret Stevens MD Work Phone: [facility] Comment on above: Paroxysmal atrial fi brillation (CMS/HCC); Coronary artery disease involving [place] coronary artery of [place] heart without angina pectoris; Ischemic cardiomyopathy; Chronic systolic congestive heart failure, NYHA class 2 (CMS/HCC); Hypercoagulable state due to paroxysmal atrial fibrillation (CMS/HCC); Medication course changed; Mixed hyperlipidemia; High risk medication use Start: 05-07-2023 End: 05-07-2023 ambulatory Kelly Jane Other [employer] Other Start: 05-07-2023 Office outpatient vi sit 15 minutes Kelly Jane [facility] Start: 05-07-2023 Telephone encounter Beena Benítez [facility] Start: 03-08-2023 End: 03-08-2023 ambulatory Beena Benítez Other [employer] Other Start: 03-08-2023 Office outpatient vi sit 25 minutes Beena Benítez [facility] Start: 02-15-[address] Beena Benítez Facility: Start: 02-03-2023 Rx Renewal Beena Benítez Work Phone: [facility] 250 DO Work Phone: Start: 01-28-2023 End: 01-28-2023 ambulatory Beena Benítez Other [employer] [facility] [employer] Other Start: 01-28-2023 Telephone encounter Beena Benítez [facility] Start: 12-03-[address] Beena Benítez Facility: Start: 11-30-[address] Beena Benítez Facility: Start: 11-30-2022 Patient encounter procedure Beena Benítez Work Phone: [facility] 250 DO Work Phone: Start: 11-23-2022 Office outpatient ne w 45 minutes Beena Benítez Work Phone: [facility] 250 DO Work Phone: Start: 11-23-[address] Margret Newman ty: Start: 10-27-2022 End: 10-28-[address] DOCTOR HOLDEN Facility:[facility] Start: 10-12-2022 Telephone encounter Beena echavarria Work Phone: [facility] 250 DO Work Phone: Start: 10-05-2022 Office outpatient vi sit 25 minutes Beena Benítez Work Phone: [facility] 250 DO Work Phone: Start: 10-05-[address] Margret Newman ty: Start: 09-22-2022 Patient encounter procedure Beena Benítez Work Phone: [facility] 250 DO Work Phone: Start: 09-17-2022 Chart Update Beena Benítez Work Phone: [facility] 250 DO Work Phone: Start: 09-17-2022 End: 09-17-2022 ambulatory Beena Benítez Other [employer] Other Start: 09-17-2022 Telephone encounter Beena Bneítez [facility] Start: 09-10-[address] Beena Benítez Facility:[id number] Start: 09-08-2022 End: 09-09-2022 Pre-admission assessment Kushal Page [facility] Start: 08-17-2022 Office outpatient vi sit 25 minutes Beena Benítez Work Phone: [facility] 250 DO Work Phone: Start: 08-17-[address] Margret Newman ty: Start: 07-20-2022 End: 07-21-[address] DOCTOR HOLDEN Facility:H1 Start: 07-06-2022 Office outpatient vi sit 25 minutes Beena Benítez Work Phone: [facility] 250 DO Work Phone: Start: 07-06-[address] Margret Newman ty: Start: 06-23-2022 End: 06-23-2022 ambulatory Beena Benítez Other [employer] Other Start: 06-23-2022 Telephone encounter Beena Benítez [facility] Start: 06-15-2022 Office outpatient vi sit 25 minutes Beena Benítez [facility] Start: 06-15-2022 End: 06-16-[address] BEENA BENÍTEZ [employer] [facility] [employer] Other Start: 06-02-2022 End: 06-02-2022 ambulatory Beena Benítez Other [employer] Other Start: 06-02-2022 Telephone encounter Beena Benítez [facility] Start: 03-09-2022 End: 03-10-2022 ambulatory XXXX NONE Facility:[facility] Start: 03-09-2022 End: 03-09-2022 Patient encounter procedure Kushal Page [facility] Start: 02-05-2022 End: 02-05-2022 ambulatory MD Kushal Page Facility:[facility] Start: 02-05-2022 End: 02-05-2022 Admission to same day surgery center Kushal Page [facility] Start: 01-28-2022 End: 01-29-2022 ambulatory MD Kushal Page Facility:[facility] Start: 01-28-2022 End: 01-28-2022 Patient encounter procedure Kushal Page [facility] Start: 01-23-2022 End: 01-24-2022 ambulatory MD Kushal Page Facility:[facility] Start: 01-23-2022 End: 01-23-2022 Patient encounter procedure Kushal Page [facility] Start: 01-21-2022 End: 04-23-2022 ambulatory MD Kushal Page Facility:[facility] Start: 01-21-2022 End: 04-22-2022 Recurring Kushal Page [facility] Start: 01-19-2022 Rx Renewal Beenamarissa Benítez Work Phone: [facility] 250 DO Work Phone: Start: 01-19-2022 End: 01-20-[address] NONE LISTED REQUEST Facility: Start: 01-01-2022 Chart Update Beena Benítez Work Phone: [facility] 320 DO Work Phone: Start: 12-31-2021 Patient encounter procedure Beena Benítez Work Phone: [facility] 320 DO Work Phone: Start: 12-31-2021 Current tobacco non- user cad cap copd pv dm Beena Benítez Work Phone: [facility] 320 DO Work Phone: Start: 12-05-2021 End: 12-06-2021 ambulatory MD Kushal Page Facility:[facility] Start: 12-05-2021 End: 12-05-2021 Patient encounter procedure Kushal Page [facility] Start: 07-07-2021 Rx Renewal Beena Veerna Benítez Work Phone: [facility] 250 DO Work Phone: Start: 04-23-2021 Office outpatient vi sit 25 minutes Beena Benítez Work Phone: [facility] 320 DO Work Phone: Start: 10-07-2020 End: 10-09-2020 Evaluation and management of inpatient Adam Leo [place] 8 Cardio ICU 816 01 Patient encounter status Beena Benítez Work Phone: [facility] 320 DO Work Phone: Procedures Date Procedure [...] MARGRET STEVENS Start: 07-19-2023 Lipid panel MARGRET PIERRE Start: 07-19-2023 ECG 12-LEAD MARGRET PIERRE Start: [...] Phone: Excision of mass of neck Spencer bardyl Camilo Hernia repair Beena Benítez Work Phone: Herniated structure (morphologic abnormality) Kushal Page Comment on above: 2009 Total colonoscopy Beena echavarria Work Phone: Plan of Treatment Date Care Activity Detail Author Start: 03-30-2031 DTaP/Tdap/Td Vaccines (2 - Tdap) DTaP/Tdap/Td Vaccines (2 - Tdap) [facility] Start: 07-17-2024 End: 07-17-2024 Patient encounter procedure 07/17/2024 3:30 PM EST Office Visit [facility] [address] [address] [place] [address] Margret Stevens MD [address] [place] [address] [address] [place] [address] [facility] Start: 06-19-2024 End: 06-19-2024 Patient encounter procedure 06/19/2024 10:45 AM EST [facility] [address] [place] [address] [facility] Start: 06-18-2024 End: 07-19-2024 CBC panel - Blood by Automated count CBC Lab Routine Paroxysmal atrial fibrillation (CMS/HCC) Hypercoagulable state due to paroxysmal atrial fibrillation (CMS/HCC) Expected: 06/18/2024 (Approximate), Expires: 07/19/2024 [facility] Work Phone: Comment on above: Expected: 06/18/2024 (Approximate), Expi res: 07/19/2024 Start: 06-18-2024 End: 07-19-2024 Comprehensive metabolic 2000 panel - Serum or Plasma Comprehensive Metabolic Panel Lab Routine Paroxysmal atrial fibrillation (CMS/HCC) Coronary artery disease involving [place] coronary artery of [place] heart without angina pectoris Ischemic cardiomyopathy Chronic systolic congestive heart failure, NYHA class 2 (CMS/HCC) Expected: 06/18/2024 (Approximate), Expires: 07/19/2024 [facility] Work Phone: Comment on above: Expected: 06/18/2024 (Approximate), Expi res: 07/19/2024 Start: 06-18-2024 End: 07-19-2024 Lipid 1996 panel - Serum or Plasma Lipid Panel Lab Routine Coronary artery disease involving [place] coronary artery of [place] heart without angina pectoris Mixed hyperlipidemia Expected: 06/18/2024 (Approximate), Expires: 07/19/2024 [facility] Work Phone: Comment on above: Expected: 06/18/2024 (Approximate), Expi res: 07/19/2024 Start: 01-30-2024 Influenza vaccination Influenza Vaccine (Season Ended) [facility] Start: 11-15-2023 End: 11-15-2023 Patient encounter procedure 11/15/2023 3:30 PM EDT Office Visit [facility] [address] [place] [address] [address] [place] [address] Margret Stevens MD [address] [place] [address] [address] [place], [place] [id number] [facility] Start: 11-10-2023 End: 11-10-2023 Patient encounter procedure 11/10/2023 10:45 AM EDT Appointment [facility] [address] [place] [id number] [facility] Start: 10-11-2023 End: 10-03-2024 Basic metabolic 2000 panel - Serum or Plasma Basic Metabolic Panel Lab Routine SOB (shortness of breath) Edema, unspecified type Chronic systolic congestive heart failure, NYHA class 2 (Multi) Ischemic cardiomyopathy Medication course changed Expected: 10/11/2023 (Approximate), Expires: 10/03/2024 [facility] Work Phone: Comment on above: Expected: 10/11/2023 (Approximate), Expi res: 10/03/2024 Start: 10-04-2023 End: 10-03-2025 US Heart Transthoracic Transthoracic Echo Complete Echocardiography Routine SOB (shortness of breath) Chronic systolic congestive heart failure, NYHA class 2 (Multi) Ischemic cardiomyopathy Expected: 10/04/2023 (Approximate), Expires: 10/03/2025 [facility] Service Area Work Phone: Comment on above: Expected: 10/04/2023 (Approximate), Expi res: 10/03/2025 Start: 08-02-2023 End: 07-19-2024 Basic metabolic 2000 panel - Serum or Plasma Basic Metabolic Panel Lab Routine Ischemic cardiomyopathy Chronic systolic congestive heart failure, NYHA class 2 (CMS/HCC) Expected: 08/02/2023 (Approximate), Expires: 07/19/2024 [facility] Service Area Work Phone: Comment on above: Expected: 08/02/2023 (Approximate), Expi res: 07/19/2024 Start: 07-19-2023 End: 07-19-2025 Heart Transthoracic Transthoracic Echo Complete Echocardiography Routine Ischemic cardiomyopathy Chronic systolic congestive heart failure, NYHA class 2 (CMS/HCC) Expected: 07/19/2023 (Approximate), Expires: 07/19/2025 [facility] Work Phone: Comment on above: Expected: 07/19/2023 (Approximate), Expi res: 07/19/2025 Start: 02-15-2023 FUV, Provider: Margret Stevens, Status: Pen, Time: 12:30 PM FUV, Provider: Margret Stevens, Status: Pen, Time: 12:30 PM [facility] [facility] DO Work Phone: Start: 01-29-2023 COVID-19 Vaccine ( season) COVID-19 Vaccine ( season) [facility] Start: 01-29-2023 Influenza vaccination Influenza Vaccine (#1) [facility] Start: 12-02-2022 HOLTER 48, Provider: VIN IZAGUIRRE LIFE SPECIALIST 1,[id number], Status: Pen, Time: 9:00 AM HOLTER 48, Provider: VIN IZAGUIRRE LIFE SPECIALIST 1,[id number], Status: Pen, Time: 9:00 AM [facility] 250 DO Work Phone: Start: 11-23-2022 FUV, Provider: Margret Stevens, Status: Pen, Time: 3:00 PM FUV, Provider: Margret Stevens, Status: Pen, Time: 3:00 PM -[facility] 250 DO Work Phone: Start: 10-05-2022 FUV, Provider: Margret Stevens, Status: Pen, Time: 2:30 PM FUV, Provider: Margret Stevens, Status: Pen, Time: 2:30 PM -[facility] 250 DO Work Phone: Start: 09-10-2022 STRESS HERSON, Provider: CARLA HHVI NUCLEAR 01,[id number], Status: Pen, Time: 9:00 AM STRESS HERSON, Provider: CARLA HHVI NUCLEAR 01,[id number], Status: Pen, Time: 9:00 AM [facility] 250 DO Work Phone: Start: 08-17-2022 FUV, Provider: Margret Stevens, Status: Pen, Time: 3:15 PM FUV, Provider: Margret Stevens, Status: Pen, Time: 3:15 PM -[facility] 250 DO Work Phone: Start: 10-29-2021 FUV, Provider: Adam Leo, Status: Pen, Time: 3:45 PM FUV, Provider: Adam Leo, Status: Pen, Time: 3:45 PM -[facility] 320 DO Work Phone: Start: 10-09-2021 Creatinine measurement Creatinine Level [facility] Start: 10-09-2021 Diabetes mellitus screening Diabetes Screening [facility] Start: 10-09-2021 Potassium measurement Potassium Level [facility] Start: 10-09-2020 No post-op complications No post-op complications Date: 09-Oct-2020 [facility] Start: 10-09-2020 Prolonged QT interval Prolonged QT interval Date: 09-Oct-2020 [facility] Start: 2020 Arrhythmia Arrhythmia Date: 08-Oct-2020 [facility] Start: 10-07-2020 End: 2021 [facility] Comment on above: IF patient [...] 60+ years (1 - 1-dose 60+ series) [facility] Start: 10-09-2007 Zoster Vaccines (1 of 2) Zoster Vaccines (1 of 2) [facility] Start: 10-09-1975 Hepatitis C screening Hepatitis C Screening [facility] Start: 10-09-1963 Pneumococcal Vaccine: 65+ Years (1 - PCV) Pneumococcal Vaccine: 65+ Years (1 - PCV) [facility] Start: 10-09-1963 Pneumococcal Vaccine: 65+ Years (1 of 2 - PCV) Pneumococcal Vaccine: 65+ Years (1 of 2 - PCV) [facility] Start: 1958 MMR Vaccines (1 of 1 - Standard series) MMR Vaccines (1 of 1 - Standard series) [facility] Start: 1957 Annual wellness visit Medicare Initial Physical (IPPE) [facility] Start: 1957 Echocardiography Echocardiogram [facility] Start: 1957 Lipid panel Lipid Panel [facility] Start: 1957 Medicare Annual Wellness Visit Medicare Annual Wellness Visit (AWV) [facility] Start: 1957 Screening for malignant neoplasm of colon [facility] Immunizations Immunization Date Immunization Notes Care Provider Fa cility 03-30-2021 diphtheria, tetanus toxoids and pertussis vaccine Beena Benítez Work Phone: [facility] [employer] DO Work Phone: 09-30-2020 [employer] COVI D-19 Vacc 30 MCG/0.3ML Intramuscular Suspension Beena Benítez Work Phone: [facility] [employer] 320 DO Work Phone: 09-10-2020 Pfizer-BioNTech COVI D-19 Vacc 30 MCG/0.3ML Intramuscular Suspension Beena Benítez Work Phone: -[facility] Ortega DO Work Phone: Payers Date Payer Category Payer Private Health Insurance 2021 Medicare AETNA MEDICARE A ETNA MEDICARE VALUE PLAN [id number] 2021-Present [address] [place] [address] [id number] 1959 Medicare [id number] 1957 Unknown [id number] 2.16.840.1.255289.3.579.2.1 068 1957 Unknown [id number] 2.16.840.1.716498.3.579.2.7 27 1957 Unknown [id number] 2.16.840.1.560362.3.579.2.7 27 1957 Unknown [id number] 2.16.840.1.459249.3.579.2.7 1957 Unknown [id number] 2.16.840.1.643948.3.579.2.7 1957 Unknown [id number] 2.16.840.1.943270.3.579.2.7 27 1957 Unknown [id number] 2.16.840.1.869819.3.579.2.7 27 1957 Unknown [id number] 2.16.840.1.723702.3.579.2.5 93 1957 Unknown [id number] 2.16.840.1.757400.3.579.2.5 93 1957 Unknown [id number] 2.16.840.1.117264.3.579.2.5 93 1957 Unknown [id number] 2.16.840.1.120684.3.579.2.5 93 1957 Unknown [id number] 2.16.840.1.381608.3.579.2.3 56 1957 Unknown [id number] 2.16.840.1.687133.3.579.2.3 56 1957 Unknown [id number] 2.16.840.1.900160.3.579.2.3 56 1957 Unknown [id number] 2.16.840.1.137777.3.579.2.3 56 1957 Unknown [id number] 2.16.840.1.371268.3.579.2.3 56 1957 Unknown [id number] 2.16.840.1.333678.3.579.2.3 56 1957 Unknown [id number] 2.16.840.1.929973.3.579.2.3 56 1957 Unknown [id number] 2.16.840.1.012190.3.579.2.1 244 1957 Unknown [id number] 2.16.840.1.240653.3.579.2.1 244 Unknown Social History Date Type Detail Facility [facility] Tobacco smoking consumption unknown [facility] Start: 07-19-2023 End: 10-04-2023 Never smoker Never smoker [place] [address] DO Work Phone: Comment on above: 2-3 cups of tea dudley y, 1 soda; Start: 05-30-2020 End: 07-19-2023 Tobacco smoking status Never smoked tobacco (finding) [facility] Start: 07-19-2023 End: 10-04-2023 Sex Assigned At Male [facility] Start: 07-19-2023 Tobacco use and exposure Smokeless tobacco non-user [facility] Work Phone: Start: 07-19-2023 End: 10-04-2023 Alcohol intake Current drinker of alcohol (finding) [facility] Work Phone: Start: 07-19-2023 Alcohol Comment occasional beer [facility] Work Phone: Start: 1955 Sex Assigned At Not on file [facility] Work Phone: Start: 07-09-2023 End: 10-04-2023 Exposure to SARS-CoV-2 (event) Not sure [facility] Functional Status Date Assessment Result Facility 03-09-2022 Functional Status N/A [facility] 02-05-2022 Functional Status Yes [facility] 01-23-2022 Functional Status N/A [facility] 12-05-2021 Functional Status N/A [facility] Functional observable [facility] Mental Status Date Assessment Result Facility 10-09-2020 Cognitive functions [id number] [facility] Clinical Notes 10-07-2020 to 10-04-2023 Margret Stevens MD - 10/04/2023 1:45 PM EDTPatient InstructionsMargret Stevens MD - 07/19/2023 3:00 PM ESTPatient Instructions Note Date & Type Note Facility 10-04-2023 Note Normal sinus rhythm poor R wave progression normal intervals no change compared to previous EKG [facility] 10-04-2023 History of Present illness Narrative This [...] per 2D echocardiogram dated June 07, 2020, [place] [employer] class II, stage B heart failure. 10. Gouty arthritis. Patient remains on allopurinol, no recent recurrence. 11. Abnormal perfusion imaging showing an LV ejection fraction in the 20s, with subsequent cardiac catheterization showing LV ejection fraction of 45%, this was done at [facility] and that particular Catheterization did not [...] This is consistent with chronotropic blunting. 13. [id number] score is 6 14.48-hour Holter monitor-minimum heart [...] lb) 07/19/23 (!) 166 kg (365 lb) 09/18/23 (!) 169 kg (372 lb) Vitals: 10/04/23 [...] Metabolic Panel 5. Coronary artery disease involving [place] coronary artery of [place] heart without angina pectoris 6. Paroxysmal atrial [...] discussion and plan. documented in this encounter [facility] Work Phone: 10-04-2023 Instructions Judy Guillaume CMA [...] in office today documented in this encounter [facility] Work Phone: 07-19-2023 History of Present illness [...] per 2D echocardiogram dated June 07, 2020, [place] [employer] class II, stage B heart failure. 10. Gouty arthritis. Patient remains on allopurinol, no recent recurrence. 11. Abnormal perfusion imaging showing an LV ejection fraction in the 20s, with subsequent cardiac catheterization showing LV ejection fraction of 45%, this was done at [facility] and that particular Catheterization did not [...] This is consistent with chronotropic blunting. 13. HYR1AE4-TIBa score is 6 14.48-hour Holter monitor-minimum heart [...] redirect to the Timeline version of the [employer]. Wt Readings from Last 3 Encounters: [...] Date Noted Hypercoagulability due to atrial fibrillation ([facility]) 07/19/2023 Medication course changed 07/19/2023 Chronic systolic congestive heart failure, NYHA class 2 ([facility]/HCC) 07/19/2023 High risk medication use 07/19/2023 Abnormal electrocardiogram 05/05/2023 Atrial fibrillation ([facility]/HCC) 05/05/2023 CAD (coronary artery disease) 05/05/2023 Cardiomyopathy ([facility]) 05/05/2023 COVID-19 05/05/2023 SOB (shortness of breath) 05/05/2023 Assessment: 1. Paroxysmal atrial fibrillation ([facility]/HCC) Follow Up In Cardiology ECG 12 Lead CBC Comprehensive Metabolic Panel CBC Comprehensive Metabolic Panel 2. Coronary artery disease involving [place] coronary artery of [place] heart without angina pectoris Follow Up In Cardiology Comprehensive Metabolic Panel Lipid Panel Comprehensive Metabolic Panel Lipid Panel 3. Ischemic cardiomyopathy Follow Up In Cardiology sacubitriL-valsartan (Entresto) 97-103 mg tablet Basic Metabolic Panel Comprehensive Metabolic Panel Transthoracic Echo Complete Basic Metabolic Panel Comprehensive Metabolic Panel 4. Chronic systolic congestive heart failure, NYHA class 2 ([facility]/HCC) sacubitriL-valsartan (Entresto) 97-103 mg tablet Basic Metabolic [...] By signing my name below, I, Clarisa Karla KIM , Ilaibverena attest that this documentation has been prepared under the direction and in the presence of Margret Stevens MD. documented in this encounter [facility] Work Phone: 07-19-2023 Instructions Clarisa Quintanilla LPN [...] Increase physical activity. documented in this encounter [facility] Work Phone: 05-07-2023 Evaluation note Encounter Date [...] the ER for worsening symptoms or concerns [employer] Other 10-09-2023 Evaluation note* Encounter Date Diagnosis [...] as directed. Feb, Coronary artery disease involving [place] coronary artery of [place] heart without angina pectoris (ICD-10 - I25.10) Continue care w [facility] Feb, GAYLE (obstructive sleep apnea) (ICD-10 - G47.33) Continue care w Dr. Noble. [employer] Other 05-01-2023 History of Present illness Narrative* [...] per 2D echocardiogram dated June 07, 2020, [place] [employer] class II, stage B heart failure. * 10. Gouty arthritis. Patient remains on allopurinol, no recent recurrence. * 11. Abnormal perfusion imaging showing an LV ejection fraction in the 20s, with subsequent cardiac catheterization showing LV ejection fraction of 45%, this was done at [facility] and that particular Catheterization did not [...] is consistent with chronotropic blunting. * 13. [id number]-[id number] score is 6 * Laboratory data from [...] prohibitively expensive-pleaseconsider Uriel or Juan-defer to primary/endocrinology. -[facility] French DO Work Phone: 1(365) 648-142305-01-2023 History of Present illness Narrative* Patient was [...] per 2D echocardiogram dated June 07, 2020, [place] [employer] class II, stage B heart failure. * 10. Gouty arthritis. Patient remains on allopurinol, no recent recurrence. * 11. Abnormal perfusion imaging showing an LV ejection fraction in the 20s, with subsequent cardiac catheterization showing LV ejection fraction of 45%, this was done at [facility] and that particular Catheterization did not [...] is consistent with chronotropic blunting. * 13. [id number]-HSUx score is 6 * Laboratory data from [...] prohibitively expensive-pleaseconsider Uriel or Juan-defer to primary/endocrinology. -[facility] 250 DO Work Phone: [phone]) 476-669205-01-2023 History of Present illness Narrative* Patient was [...] per 2D echocardiogram dated June 07, 2020, [place] [employer] class II, stage B heart failure. * 10. Gouty arthritis. Patient remains on allopurinol, no recent recurrence. * 11. Abnormal perfusion imaging showing an LV ejection fraction in the 20s, with subsequent cardiac catheterization showing LV ejection fraction of 45%, this was done at [facility] and that particular Catheterization did not [...] is consistent with chronotropic blunting. * 13. [id number]-KJJg score is 6 * Laboratory data from [...] prohibitively expensive-pleaseconsider Uriel or Juan-defer to primary/endocrinology. -[facility] 250 DO Work Phone: 1(753) 146-802004-01-2023 History of Present illness Narrative* Patient with [...] per 2D echocardiogram dated June 07, 2020, [place] [employer] class II, stage B heart failure. * 10. Gouty arthritis. Patient remains on allopurinol, no recent recurrence. * 11. Abnormal perfusion imaging showing an LV ejection fraction in the 20s, with subsequent cardiac catheterization showing LV ejection fraction of 45%, this was done at [facility] and that particular Catheterization did not [...] for his unrelenting fatigue and foggy brain. -[facility] 250 DO Work Phone: [phone]) 547-626401-16-2023 Evaluation note* Encounter Date Diagnosis Assessment Notes Treatment Notes Treatment Clinical Notes May, Type 2 diabetes mellitus with hyperglycemia, without long-term current use of insulin (ICD-10 - E11.65) chronic problem - may increase or add med based on lab results May, Essential (primary) hypertension (ICD-10 - I10) chronic and controlled adequately at this time. May, Coronary artery disease involving [place] coronary artery of [place] heart without angina pectoris (ICD-10 - I25.10) May, BMI 50.0-59.9, adult (ICD-10 - Z68.43) Pt is encouraged to lose weight, change diet, and increase exercise as tolerated. [facility] [employer] Other 09-12-2022 Note [id number] 02-05-2022 Evaluation + Plan noteExtracted from: Title:Procedure [...] Laboratory* Basic Metabolic Panel 06/06/21 [facility]09-08-2022 Hospital Discharge instructions Patient Education 02/05/2022 10:35:09 CV - Cardiovascular Discharge Instructions (CUSTOM) [place], [place] CARDIOVASCULAR DISCHARGE INSTRUCTIONS Diet: Resume pre-procedure [...] hours post procedure: Actoplus MetGlucophageGlucophage XR GlucovanceAvandametFortamet Zax-cywsothiuUyjewsTaic-xxspatscd GlumetzaJanumetMetaglip RiometGlycomet *Minimal pain, soreness and/or discomfort [...] you are interested in smoking cessation, contact [facility] at [phone], ext. [phone]. In the event you are unable to reach your physician, please call [facility] at [phone] and the alfalfa dehydrator operator will assist you. Seek Immediate Medical Care for: Bleeding: Apply continuous pressure to the site and Call 911. Should the arm or leg become cold, numb, blue or white call your physician immediately. Signs of infection are redness, warmth, swelling, increased tenderness, colored drainage, fever or chills Chest pain Follow Up Care 01/27/2022 09:04:57 With:Kushal Page Address: [address] [place] [place] [phone] Business (1) When:03/09/2022 11:15:00 [facility]09-08-2022 NoteProcedure The risk/benefits of the procedure were [...] Education Routine Capillary Glucose POC Saline Lock InsertNorwalk Memorial HospitalComment on above:Result Comment: Electronically Signed By: Camilo STARK, Kushal Lenz\Date and Time Signed: 02/05/22 06:47 [id number] Evaluation + Plan note Future Scheduled Tests Laboratory* Basic Metabolic Panel 06/06/21 [facility]05-12-2021 Hospital Discharge instructions* Follow Up Appointment 1:Physician/Dept/Service: Kaity Zapata ([facility]Scheduled Date/Time: [id number]: [facility] Romano officePhone Number: [phone] [facility]05-10-2021 History of Present illness Narrative* 65-year-old male who is followed for persistent atrial fibrillation. He underwent antiarrhythmic drug loading with sotalol October 07, 2020 and presents to the office today for follow-up evaluation. His carvedilol was discontinued due to heart rates in the 40s post drug loading. He did require cardioversion on October 09, 2020 for orthodoxy of sinus rhythm. * Since the last [...] per 2D echocardiogram dated June 07, 2020, [place] [employer] class II, stage B heart [...] software was utilized to prepare this document. [facility] [employer] DO Work Phone: [phone] 685-517205-10-2021 History of Present illness Narrative* 65-year-old male who is followed for persistent atrial fibrillation. He underwent antiarrhythmic drug loading with sotalol October 07, 2020 and presents to the office today for follow-up evaluation. His carvedilol was discontinued due to heart rates in the 40s post drug loading. He did require cardioversion on October 09, 2020 for orthodoxy of sinus rhythm. * Since the last [...] per 2D echocardiogram dated June 07, 2020, [place] Heart [employer] class II, stage B heart [...] software was utilized to prepare this document. [facility] Work Phone: Evaluation + Plan note Future Appointments Appointment Date:01/23/2022 03:00:00 PM Scheduled Provider:Kushal Page MD Location:[facility].Cardiology Clinic Appointment Type:Cardiology Follow Up (FT) Future Scheduled Tests Laboratory* Basic Metabolic Panel 06/06/21 Radiology* NM Myocardial Spect Rest/Stress 2 Day [facility]05/21 [facility] Future Appointments Appointment Date:02/05/2022 08:00:00 AM Scheduled Provider: Location:[facility] Appointment Type:CV Heart Cath (FT) Future Scheduled Tests Laboratory* Basic Metabolic Panel 06/06/21 Radiology* CV Cardiovascular 02/05/22 [facility] + Plan note Future Appointments Appointment Date:09/08/2022 03:15:00 PM Scheduled Provider:Kushal Page MD Location:FT.Cardiology Clinic Appointment Type:Cardiology Follow Up (FT) Future Scheduled Tests Laboratory* Basic Metabolic Panel 06/06/21 [facility] note* Musculoskeletal: ROM intact, no joint swelling, [...] wounds, or clubbingPsychological: Appropriate mood and behavior [facility]No [facility] Other Evaluation note* Diagnosis Paroxysmal atrial fibrillation (CMS/HCC) Atrial fibrillation Coronary artery disease involving [place] coronary artery of [place] heart without angina pectoris Ischemic cardiomyopathy Other specified forms of chronic ischemic heart disease Chronic systolic congestive heart failure, NYHA class 2 (CMS/HCC) Hypercoagulable state due to paroxysmal atrial fibrillation (CMS/HCC) Medication course changed Mixed hyperlipidemia High risk medication use documented in this encounter [facility] Work Phone: Evaluation note* Diagnosis SOB (shortness of breath) Shortness of breath Edema, unspecified type Chronic systolic congestive heart failure, NYHA class 2 (Multi) Ischemic cardiomyopathy Other specified forms of chronic ischemic heart disease Coronary artery disease involving [place] coronary artery of [place] heart without angina pectoris Paroxysmal atrial fibrillation (Multi) Atrial fibrillation Lower leg edema High risk medication use Hypercoagulable state due to paroxysmal atrial fibrillation (Multi) Unspecified atrial fibrillation (Multi) Sleep apnea treated with continuous positive airway pressure (CPAP) Mixed hyperlipidemia Medication course changed documented in this encounter [facility] Work Phone: History general Narrative - Reported* Type Description Date Medical History Gout Medical History Depression Medical History HTN Medical History stroke Medical History Atrial fibrillation Medical History DM Surgical History Back surgery Surgical History Hernia Surgical History Mass removed from skin of neck Surgical History heart cath with stent placed Hospitalization History See past surgical hx Hospitalization History Stroke 05/2019 [employer] Other History of Present illness Narrative* Patient is new to this provider, he is accompanied by his who works at [employer] in the cafeteria. Prior records were reviewed, [...] function test, and Lexiscan stress test at [facility]. He states he has absolutely no energy and is easily fatigued, he is short of breath and he has a nonproductive cough. He denies fever or chills. He isaccompanied by his who questions whether he may change his cardiology follow-up to [facility] due to proximity to home. * Patient wishes to establish care at [facility]. Predominant complaints are unrelenting fatigue, [...] per 2D echocardiogram dated June 07, 2020, [place] [employer] class II, stage B heart failure. * 10. Gouty arthritis. Patient remains on allopurinol, no recent recurrence. * 11. Abnormal perfusion imaging showing an LV ejection fraction in the 20s, with subsequent cardiac catheterization showing LV ejection fraction of 45%, this was done at [facility] and that particular Catheterization did not show any flow-limiting disease. The perfusion study was done in December 2021, cardiac catheterization from January 2022 showed nonobstructive coronary artery disease of theleft system widely patent RCA stent LVEF 45% moderately dilated left ventricular chamber dimension mildly elevated LV end-diastolic pressure. * EKG from today shows normal sinus rhythm at 64 bpm NM interval 148 ms QRS duration 106 ms [...] ALT and AST mildly elevated hemoglobin 13.4. [facility] 250 DO Work Phone: History of Present illness Narrative* Patient with atherosclerotic [place] vessel coronary artery disease, multiple cardiac risk [...] per 2D echocardiogram dated June 07, 2020, [place] [employer] class II, stage B heart failure. * 10. Gouty arthritis. Patient remains on allopurinol, no recent recurrence. * 11. Abnormal perfusion imaging showing an LV ejection fraction in the 20s, with subsequent cardiac catheterization showing LV ejection fraction of 45%, this was done at [facility] and that particular Catheterization did not [...] will defer to sleep medicine * Recommendations: [facility]-Carla French DO Work Phone: History of Present illness Narrative* Patient with atherosclerotic [place] vessel coronary artery disease, multiple cardiac risk [...] per 2D echocardiogram dated June 07, 2020, [place] [employer] class II, stage B heart failure. * 10. Gouty arthritis. Patient remains on allopurinol, no recent recurrence. * 11. Abnormal perfusion imaging showing an LV ejection fraction in the 20s, with subsequent cardiac catheterization showing LV ejection fraction of 45%, this was done at [facility] and that particular Catheterization did not [...] will defer to sleep medicine * Recommendations: [facility] Work Phone: Hospital course Narrative No data available for this section [facility] No data available for this section [facility] NorthProgress note No data available for this section [facility] Chief Complaint Patient is here today for [...] function test, and Lexiscan stress test at [facility]. He states he has absolutely no energy andis easily fatigued, he is short of breath and he has a nonproductive cough. He denies fever or chills. He is accompanied by his who questions whether he may change his cardiology follow-up to [facility] due to proximity to home. * Physical [...] per 2D echocardiogram dated June 07, 2020, [place] [employer] class II, stage B heart failure. * 10. Gouty arthritis. * Recommendations: * 1. Continue current medications as prescribed. * 2. I discussed with the patient that he may follow-up with a inspector brake lining in [facility] as requested. He was instructed to notify [facility] if he requires any medical records [...] (Multi) Ischemic cardiomyopathy Procedures Transthoracic Echo Complete NM ECHO TTHRC R-T 2D W/WOM-MODE COMPL SPEC&COLR D Margret Stevens MD [address] [place] [address] Referral ID Status Reason Start Date Expiration Date Visits Requested Visits Authorized [id number] Pending Review Perform Procedure 10/04/2023 10/03/2024 1 1 Specialty Diagnoses / Procedures Referred By Contac t Referred To Contact Diagnoses Paroxysmal atrial fibrillation (Multi) Procedures ECG 12 Lead Margret Stevens MD [address] [place] [address] Referral ID Status Reason Start Date Expiration Date V isits Requested Visits Authorized [id number] Authorized 10/04/2023 10/03/2024 1 1 Specialty Diagnoses / Procedures Referred By Contac t Referred To Contact Cardiology Diagnoses Ischemic cardiomyopathy Procedures Follow Up In Cardiology Margret Stevens MD [address] [place] [address] Margret Stevens MD [address] [place] [address] Referral ID Status Reason Start Date Expiration Date V isits Requested Visits Authorized [id number] Authorized 10/04/2023 10/03/2024 1 1 Specialty Diagnoses / Procedures Referred By Contac t Referred To Contact Cardiology Diagnoses Ischemic cardiomyopathy Chronic systolic congestive heart failure, NYHA class 2 (CMS/HCC) Procedures Transthoracic Echo Complete NM ECHO TTHRC R-T 2D W/WOM-MODE COMPL SPEC&COLR D Margret Stevens MD [address] [place] [address] Referral ID Status Reason Start Date Expiration Date Visits Requested Visits Authorized [id number] Pending Review Perform Procedure 07/19/2023 07/18/2024 1 1 Specialty Diagnoses / Procedures Referred By Contac t Referred To Contact Diagnoses Paroxysmal atrial fibrillation (CMS/HCC) Procedures ECG 12 Lead Margret Stevens MD [address] [place] [address] Referral ID Status Reason Start Date Expiration Date V isits Requested Visits Authorized [id number] Authorized 07/19/2023 07/18/2024 1 1 Specialty Diagnoses / Procedures Referred By Contac t Referred To Contact Cardiology Diagnoses Paroxysmal atrial fibrillation (CMS/HCC) Coronary artery disease involving [place] coronary artery of [place] heart without angina pectoris Ischemic cardiomyopathy Procedures Follow Up In Cardiology Margret Stevens MD [address] [place] [address] Margret Stevens MD [address] [place] [address] Referral ID Status Reason Start Date Expiration Date V isits Requested Visits Authorized [id number] Authorized 07/19/2023 07/18/2024 1 1 Reason 07/06/22 Carla gilliland, scanning recent documents we have from [facility], but we do not have all of them Diagnosis 1 Coronary artery dise ase involving [place] coronary artery of [place] heart without angina pectoris (I25.10) Referral Organization [facility] conrad Referring Provider First Name Beena Referring Provider Last Name Jeyson Referring Provider Specialty [facility] Referred Organization [facility] Referred Provider Albaro Au Referred Address [address] [place] [address] Luisito Toribio,[place],[address] Referred Provider Specialty Internal Med icine Referral Priority Routine Referral Appointment Date 2022-07-06 General Notes Gerri Davis 11:54:25 AM >received today, ins card attached along with previous [facility] note. referral faxed to Gerri Stapleton 06/25/2022 [...] section and content) DATE CREATED AUTHOR 07/24/2021 [facility] DATE CREATED AUTHOR AUTHOR'S ORGANIZ ATION 09/12/2022 [facility] DATE CREATED AUTHOR AUTHOR'S ORGANIZ ATION 09/26/2022 [facility] DATE CREATED AUTHOR AUTHOR'S ORGANIZ ATION 11/06/2022 [facility] DATE CREATED AUTHOR AUTHOR'S ORGANIZ ATION 02/16/2023 [facility] DATE CREATED AUTHOR AUTHOR'S ORGANIZ ATION 02/16/2023 [facility] ical Center DATE CREATED AUTHOR AUTHOR'S ORGANIZ ATION 10/05/2023 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 Relationship Specialty Start Date End Date Beena Benítez MD [address] [place] [address] [place] [address] PCP - General Family Medicine 07/19/23 Strip Mine Supervisor Relationship Specialty Start Date End Date Beena Benítez MD PCP - General Family Medicine 07/19/23 REASON FOR VISIT (unrecogniz ed section and content) Reason Comments Follow-up 5 month Specialty Diagnoses / Procedures Referred By Carissaac t Referred To Contact Diagnoses Paroxysmal atrial fibrillation ([facility]/HCC) Procedures ECG 12 Lead Margret Stevens MD [address] [place] [address] Referral ID Status Reason Start Date Expiration Date V isits Requested Visits Authorized [id number] Authorized 07/19/2023 07/18/2024 1 1 Reason Comments Follow-up Sooner OV - last wed lower edema, med change Specialty Diagnoses / Procedures Referred By Contac t Referred To Contact Cardiology Diagnoses SOB (shortness of breath) Edema, unspecified type Procedures Follow Up In Cardiology Margret Stevens MD [address] [place] [address] Margret Stevens MD [address] [address] Referral ID Status Reason Start Date Expiration Date V isits Requested Visits Authorized [id number] Authorized 09/23/2023 09/22/2024 1 1 FOR RECORDS [...] BE BASED ON THE PRIMARY CLINICAL RECORDS. [employer] provides no warranty or guarantee of the accuracy or completeness of information in this document.
--- NOTE | 2023-11-08 10:36 | US_ITS ---
The [address] [address] Patient Name: LORENA CAMPOS MRN: [id number] date: 1955 Sex: M Assigned Patient Location: ED.MAIN Current Patient Location: ER Accession/Order Number: [id number] Exam Date: 11/08/2023 10:40 Report Date: 11/08/2023 11:18 At the request of: CHANELLE WAY Procedure: US venous doppler LE LT EXAM: US venous doppler LE LT HISTORY: leg pain COMPARISON: None. TECHNIQUE: Grayscale, color and Doppler FINDINGS: Region: Left leg Thrombus: None Flow: Normal Compressibility: Normal Augmentation: Normal US/US venous doppler LE LT IMPRESSION: No deep or superficial vein thrombus identified in the left leg Electronically authenticated by: NAVI AVILEZ Date: 11/08/2023 11:18
--- NOTE | 2023-11-08 10:38 | ED.GENADUL1 ---
HPI HPI - General Adult General Chief complaint: Extremity Problem, Nontraumatic Stated complaint: left leg/foot swelling Time Seen by Provider: 11/08/23 10:36 Source: patient Mode of arrival: walk-in History of Present Illness HPI narrative: Patient is a 68-year-old male who is coming complaining of left calf pain, left ankle pain and swelling. Patient stated that on he was having some pain to the insertion of his left Achilles and also some swelling in his left leg.Patient does take Eliquis. Patient has not any type of twisting, turning or trauma that he is aware of.Patient is having some pain with ambulation secondary to left foot and ankle pain.He has no new chest pain or shortness of breath. No nausea or vomiting. No fever or chills. Patient has no recent traveling or trauma.Patient states his left leg is slightly larger than the right leg.Patient has big legs at baseline. All systems are negative except as noted/marked. All systems reviewed and otherwise negative. Nurses note and vital signs reviewed and patient is not hypoxic. General: The patient appears well and in no apparent distress. Patient is resting comfortably on cart. Patient is not toxic, lethargic, or listless Skin: Warm, dry, no pallor noted. There is no rash noted. No petechiae, purpura. Head: Normocephalic, atraumatic Eye: Normal conjunctiva, no drainage, EOMI. PERRL Ears, Nose, Mouth, and Throat: oral mucosa is moist. Nares patent. Mouth without vesicles. Cardiovascular: Regular Rate and Rhythm Respiratory: Patient is in no distress, Back: non-tender, GI: Soft,no tenderness Musculoskeletal: Patient has full range of motion of all of the extremities. Patient has moderate tenderness to palpation to the insertion of left Achilles. Patient left Achilles is intact.Patient does have mild swelling to the entire left leg compared to the right. Patient has no pain to the posterior aspect of his right posterior thigh, calf, popliteal fossa. No tenderness to palpation to bilateral malleoli Otherwise no motor, sensory, or focal neurological deficits Neurological: A&O x4, normal speech Psychiatric: Cooperative Related Data Home Medications ?Medication ?Instructions ?Recorded ?Confirmed allopurinol 300 mg tablet 300 mg PO DAILY 11/08/23 11/08/23 aspirin 81 mg tablet,delayed 81 mg PO DAILY 11/08/23 11/08/23 release (Adult Low Dose Aspirin) colchicine 0.6 mg capsule 0.6 mg PO DAILY 11/08/23 11/08/23 duloxetine 60 mg capsule,delayed 60 mg PO DAILY 11/08/23 11/08/23 release furosemide 20 mg tablet 20 mg PO DAILY 11/08/23 11/08/23 magnesium oxide 400 mg (241.3 mg 400 mg PO DAILY 11/08/23 11/08/23 magnesium) tablet metformin 750 mg tablet,extended 750 mg PO DAILY 11/08/23 11/08/23 release 24 hr modafinil 100 mg tablet 100 mg PO DAILY 11/08/23 11/08/23 multivitamin 1 tab PO DAILY 11/08/23 11/08/23 omeprazole 20 mg capsule,delayed 20 mg PO DAILY 11/08/23 11/08/23 release potassium chloride 20 mEq 20 meq PO DAILY 11/08/23 11/08/23 tablet,extended release(part/cryst) (Klor-Con M) rivaroxaban 20 mg tablet (Xarelto) 20 mg PO DAILY 11/08/23 11/08/23 rosuvastatin 20 mg tablet 20 mg PO DAILY 11/08/23 11/08/23 sacubitril 97 mg-valsartan 103 mg 1 tab PO BID 11/08/23 11/08/23 tablet (Entresto) semaglutide 0.25 mg or 0.5 mg (2 0.5 mg subcut QWEEK 11/08/23 11/08/23 mg/3 mL) subcutaneous pen injector (Ozempic) sotalol 80 mg tablet 80 mg PO BID 11/08/23 11/08/23 spironolactone 25 mg tablet 25 mg PO DAILY 11/08/23 11/08/23 Allergies Allergy/AdvReac Type Severity Reaction Status Date / Time No Known Drug Allergies Allergy Verified 11/08/23 10:09 Opioid HPI Opioid Management Most Recent Opioid Data: No Data to Display [facility] Medical History (Updated 11/08/23 @ 11:57 by Luis Schofield MD) High cholesterol ?E78.00 - Pure hypercholesterolemia, unspecified (ICD-10) Gout ?M10.9 - Gout, unspecified (ICD-10) Afib ?I48.91 - Unspecified atrial fibrillation (ICD-10) Surgical History (Updated 11/08/23 @ 10:20 by Deann Cast) H/O heart artery stent ?Z95.5 - Presence of coronary angioplasty implant and graft (ICD-10) Exam Constitutional Vital Signs, click to edit/add: Last Vital Signs Temp 98.1 F 11/08/23 10:06 Pulse 68 11/08/23 10:06 Resp 18 11/08/23 10:06 BP 149/85 H 11/08/23 10:06 Pulse Ox 98 11/08/23 10:06 O2 Del Method Room Air 11/08/23 10:06 Course Vital Signs Vital signs: Vital Signs Temperature 98.1 F 11/08/23 10:06 Pulse Rate 68 11/08/23 10:06 Respiratory Rate 18 11/08/23 10:06 Blood Pressure 149/85 H 11/08/23 10:06 Pulse Oximetry 98 11/08/23 10:06 Oxygen Delivery Method Room Air 11/08/23 10:06 Temperature 98.1 F 11/08/23 10:06 Pulse Rate 68 11/08/23 10:06 Respiratory Rate 18 11/08/23 10:06 Blood Pressure 149/85 H 11/08/23 10:06 Pulse Oximetry 98 11/08/23 10:06 Oxygen Delivery Method Room Air 11/08/23 10:06 Medical Decision Making MDM Narrative Medical decision making narrative: Patient has had back surgery many years ago, otherwise no other significant abdominal surgery or hernia surgery that would cause any type of obstruction that would cause lymphedema to the left leg. Ultrasound to left lower extremity was negative.No signs of DVT.Patient was given Mik wrap and a postop shoe.Patient is showing signs of left Achilles tendinitis.Patient was referred back to PCP but more importantly to Dr. Chow for evaluation of left Achilles tendinitis.Patient and are aware of this, no questions at discharge. Patient will continue using Tylenol. Patient does have Voltaren gel that he can use at home to help with inflammation as well.Education on splint care of Mik wrap and splint with postop shoe was done at bedside and on discharge paperwork Discharge Plan Discharge Stand Alone Forms: Portal Instructions Chief Complaint: Extremity Problem, Nontraumatic Clinical Impression: Tendonitis, Achilles, left, Left leg swelling Patient Disposition: Home, Self-Care Time of Disposition Decision: 11:50 Condition: Fair Prescriptions / Home Meds: No Action allopurinol 300 mg tablet 300 mg PO DAILY duloxetine 60 mg capsule,delayed release(DR/EC) 60 mg PO DAILY aspirin [Adult Low Dose Aspirin] 81 mg tablet,delayed release (DR/EC) 81 mg PO DAILY colchicine 0.6 mg capsule 0.6 mg PO DAILY magnesium oxide 400 mg (241.3 mg magnesium) tablet 400 mg PO DAILY metformin 750 mg tablet extended release 24 hr 750 mg PO DAILY modafinil 100 mg tablet 100 mg PO DAILY omeprazole 20 mg capsule,delayed release(DR/EC) 20 mg PO DAILY potassium chloride [Klor-Con M20] 20 mEq tablet,ER particles/crystals 20 meq PO DAILY furosemide 20 mg tablet 20 mg PO DAILY Xarelto 20 mg tablet 20 mg PO DAILY rosuvastatin 20 mg tablet 20 mg PO DAILY Entresto 97-103 mg tablet 1 tab PO BID Ozempic 0.25 mg or 0.5 mg (2 mg/3 mL) pen injector 0.5 mg SUBCUT QWEEK sotalol 80 mg tablet 80 mg PO BID spironolactone 25 mg tablet 25 mg PO DAILY multivitamin Tablet 1 tab PO DAILY Print Language: [place] Instructions: Leg Cramps (ED), Leg Edema (ED), Tendinitis (ED), Leg Pain (ED) Additional Instructions: Ice 20 minutes on, 20 minutes off. Do this throughout the day for the next week. Use your Voltaren gel at home daily for the next 7 to 10 days as prescribed. Use Tylenol every 4 hours as needed for pain as well, do not take more than 3000 mg a day for Tylenol Follow-up with Dr. Chow and Dr. Dominguez as discussed Referrals: Cristina Dominguez MD [Primary Care Provider] - 1 week Dank Chow DPM [Physician] - 1 week Discharge Date/Time: 11/08/23 12:18
--- NOTE | 2023-11-08 12:16 | PC.NURSE ---
luisana wrap applied to left leg, observed demonstration of how to apply and verbalizes understanding of how to reapply. patient also placed in post op shoe to left.
== END 2023-11-08 12:18 | disposition home or self-care (01) ==
PROVIDERS: Emergency Provider Emergency Medicine; PCP Family Medicine
DX: M79.89 Other specified soft tissue disorders (principal); M76.62 Achilles tendinitis, left leg
CPT/HCPCS: 93971; 99284

== ENCOUNTER 2024-01-10 08:54 | Outpatient (OUT) | payer MEDICARE, SELFPAY ==
--- OUTSIDE RECORDS SUMMARY | 2024-01-10 09:08 | XMS_ITS | CCD ---
Author Organization [facility] Care Team Providers Care Hospice/Home Health Aide Name Role Phone Beena Benítez Unavailable Adam Leo Unavailable Akil Morrow Unavailable Beena Benítez Unavailable Unavailable Unavailable BEENA BENÍTEZ Primary Care Physician [phone] Beena Bení[address] Beena Benítez Primary [...] Provider Beena Benítez MD Primary Care Provider [phone] Beena Benítez MD Primary Care Provider [phone] SHILPI STEVENSA Referring Unavailable BEENA BENÍTEZ Primary Care Unavailable MARGRET STEVENS Attending Unavailable BEENA BENÍTEZ Primary Care Unavailable MARGRET STEVENS Attending Unavailable SHILPI STEVENSA Referring Unavailable BEENA BENÍTEZ Primary Care Unavailable LEONEL BILLY Attending Unavailable SHILPI STEVENSA Referring Unavailable BEENA BENÍTEZ Primary Care Unavailable Allergies Allergy Classification Reported Allergen(s) Allergy Type Date of Onset Reaction(s) Facility (1 source) No Known Medication Allergies; Translations: [No Known Medication Allergies] Propensity to adverse reactions (disorder) [facility] Repository (10 sources) dapagliflozin; Translations: [Farxiga TABS] Drug Allergy -[place] [id number] DO Work Phone: Medications Current Medications Medication [...] day(s), # 90 tab(s), Refills(s) 3, Pharmacy: [facility]/pharmacy #[id number], 178, cm, 01/23/22 14:05:00 EDT, Height/Length Dosing, 170, kg, 01/23/22 14:05:00 EDT, Weight Dosing Start Date: 01/24/22 Stop Date: 01/19/23 Status: Ordered Start: 01-23-2022 take 4 tablets by mouth once P lavix 75 mg Tab 300 mg = 4 tab(s), Oral, Once, 300 mg Loading Dose, # 4 tab(s), Refills(s) 0, Pharmacy: [facility]/pharmacy #[id number], 178, cm, 01/23/22 14:05:00 [...] DULoxetine 60 mg delayed release oral capsule (9 sources) Serotonin and Norepinephrine Reuptake Inhibitor Start: 11-05-2022 take 1 capsule by mouth once daily DULoxetine (Cymbalta) [address] capsule Take 1 capsule (60 mg) by mouth once daily. 03/01/2023 Active furosemide 20 mg oral tablet (12 sources) Loop Diuretic Start: 10-04-2023 End: 10-03-2024 [...] day(s), # 90 tab(s), Refills(s) 3, Pharmacy: [facility]/pharmacy #[id number], 179, cm, 03/09/22 11:22:00 [...] day(s), # 180 tab(s), Refills(s) 3, Pharmacy: [facility]/pharmacy #[id number], 178, cm, 06/20/21 9:09:00 [...] Substitution Allowed modafinil 100 mg oral tablet (7 sources) Sympathomimetic-like Agent Start: 01-26-2023 take 1 [...] Andreia Petersen Generic Substitution Allowed multivitamin tablet (3 sources) take 1 tablet by inocencio th [...] 0.5 mg (2 mg/3 mL) pen injector (2 sources) Start: 09-16-2023 Ozempic 0.25 mg or 0.5 mg (2 mg/3 mL) pen injector 1 (one) time per week. 09/16/2023 Active microencapsulated potassium chloride 20 meq extended release oral tablet (3 sources) Start: 08-20-2023 End: 10-03-2024 take 1 [...] Start: 04-23-2021 take 1 tablet by inocencio once daily at mealtime Xarelto 20 MG Oral Tablet TAKE 1 TABLET DAILY WITH BIGGEST MEAL OF THE DAY. Quantity: 90 Refills: 0 Ordered: 03-Feb-2023 Margret Stevens MD Start : 23-Apr-2021 Active rosuvastatin calcium 20 mg oral tablet (19 sources) HMG-CoA Reductase Inhibitor Start: 08-17-2022 End: [...] Status: Ordered spironolactone 25 mg oral tablet (2 sources) Aldosterone Antagonist Start: 10-04-2023 End: 10-03-2024 take [...] Start: 05-17-2020 take 2 tablets by mo ut at bedtime atorvastatin 40 mg Tab 80 [...] Quantity: 90 Refills: 3 Ordered: 21-Dec-2022 Jonathon PIMENTELNKaity SHOEMAKER Start : 21-Dec-2022 Active Start: 10-09-2020 Magnesium [...] 0 Refills: 0 Ordered: 14-Apr-2021 DO Active perflutren protein A microsphere (Optison) injection 0.5 mL (1 source) Start: 11-10-19 End: 11-10-19 0.5 mL, intravenous, Once, On Wed11/10/23 at 1130, For 1 dose sulfamethoxazole 800 mg / trimethoprim 160 mg [...] 10-27-2022 2020 Chronic Coagulation and hemorrhagic disorders (9 sources) Other thrombophilia; Translations: [Secondary hypercoagulable state] Onset: 07-19-2023 07-19-2023 Chronic Conduction disorders (10 sources) Chronotropic incompetence; Translations: [Other specified conduction disorders] Chronic Congestive heart failure; nonhypertensive (20 sources) Congestive heart failure stage C; Translations: [Congestive heart failure, unspecified] Onset: 10-28-2022 07-19-2023 Chronic Coronary atherosclerosis and other heart disease (20 sources) Coronary arteriosclerosis; Translations: [Coronary atherosclerosis of unspecified type of vessel, crooked creek or graft] Onset: 09-10-2022 Chronic Coronary atherosclerosis [...] (current) use of anticoagulants] Episodic Other aftercare (1 source) nursing home (current) use of anticoagulants; Translations: [TILTING HEAD BAND SAWYER CURRNT USE ANTICOAGULANTS] Onset: 10-28-2022 Episodic Other connective tissue disease (10 sources) Muscle pain; Translations: [Myalgia and myositis, unspecified] Episodic Other infections; including parasitic (14 sources) Personal history of other infectious and parasitic diseases; Translations: [Personal history of COVID-19] Episodic Other lower respiratory disease (20 sources) Dyspnea; Translations: [Shortness of breath] Onset: 05-05-2023 05-05-2023 Episodic Other lower respiratory disease (5 sources) Shortness of breath; Translations: [Shortness of [...] cardiomyopathies] Onset: 07-20-2022 Chronic Residual codes; unclassified (11 sources) Sleep apnea; Translations: [Obstructive sleep apnea [...] [Edema, unspecified] 10-04-2023 Episodic Residual codes; unclassified (3 sources) Edema of lower leg ; Translations: [...] Classification Problem Date Documented Date Episodic/Chronic Other aftercare (15 sources) Treatment changed; Translations: [Long-term (current) use of other medications] Onset: 07-19-2023 07-19-2023 Episodic Other aftercare (3 sources) Other residential (current) drug therapy; Translations: [OTH TILTING HEAD BAND SAWYER CURRENT DRUG THERAPY] Onset: 10-28-2022 Episodic Other aftercare (5 sources) Taking high risk medication; Translations: [Other dinkey operator (current) drug therapy] Onset: 07-19-2023 07-19-2023 Episodic Other lower respiratory disease (4 sources) [...] finding; Translations: [Patient new to provider] Unclassified (3 sources) Onset: 07-19-2023 Resolved: 10-04-2023 07-19-2023 Viral infection (10 sources) Disease caused by 2019-nCoV; Translations: [Other specified viral infection] Onset: 05-05-2023 05-05-2023 Episodic Results Test Name Value Interpretation Reference Range Facility TRANSTHORACIC ECHO (TTE) COM PLETEon 11-10-2023 TRANSTHORACIC ECHO (TTE) COMPLETE [address], [address] [place] [address] TRANSTHORACIC ECHOCARDIOGRAM REPORT Patient Name: LORENA Arboleda Physician: [id number] Roman MD Study Date: 11/10/2023 Ordering Provider: [id number] MARGRET STEVENS MRN/PID: [id number] Fellow: Nurse: Tigre De La Rosa RN Date of /Age: 5 1955 / 68 years Federal Mediation Commissioner: Gina Hernandez RD, RVT Gender: M Additional Staff: Height: 177.80 cm Admit Date: Weight: 166.92 kg Admission Status: BSA / BMI: 2.70 m2 / 52.80 kg/m2 Department Location: [facility] Study Type: TRANSTHORACIC ECHO (TTE) COMPLETE Diagnosis/ICD: Shortness of breath-R06.02; Chronic systolic (congestive) heart failure (CHF)-I50.22; Ischemic cardiomyopathy-I25.5 Indication: Atrial Fibrillation, CAD, PTCA-04/2020, Diabetes, Edema, HTN, Hyperlipidemia, Morbid Obesity, GAYLE CPT Codes: Echo Complete w Full Doppler-24315 Study Detail: The following Echo studies were performed: 2D, M-Mode, Doppler and color flow. Optison used as a contrast agent for endocardial border definition. Total contrast used for this procedure was 0.5 mL via IV push. PHYSICIAN INTERPRETATION: Left Ventricle: Left ventricular systolic function is mildly decreased, with an estimated ejection fraction of 45%. There is global hypokinesis of the left ventricle with minor regional variations. The left ventricular cavity size is upper limits of normal. There is moderate to severe concentric left ventricular hypertrophy. Spectral Doppler shows an impaired relaxation pattern of left ventricular diastolic filling. Left Atrium: The left atrium is mildly dilated. Right Ventricle: The right ventricle is normal in size. There is normal right ventricular global systolic function. Right Atrium: The right atrium is normal in size. Aortic Valve: The aortic valve is trileaflet. There is evidence of mildly elevated transaortic gradients consistent with sclerosis of the aortic valve. There is no evidence of aortic valve regurgitation. The peak instantaneous gradient of the aortic valve is 9.6 mmHg. The mean gradient of the aortic valve is 5.0 mmHg. Mitral Valve: The mitral valve is mildly thickened. There is trace to mild mitral valve regurgitation. Tricuspid Valve: The tricuspid valve is structurally normal. There is trace to mild tricuspid regurgitation. Pulmonic Valve: The pulmonic valve is not well visualized. There is no indication of pulmonic valve regurgitation. Pericardium: There is no pericardial effusion noted. Aorta: The aortic root is normal. CONCLUSIONS: 1. Left ventricular systolic function is mildly decreased with a 45% estimated ejection fraction. 2. Spectral Doppler shows an impaired relaxation pattern of left ventricular diastolic filling. 3. There is moderate to severe concentric left ventricular hypertrophy. 4. Aortic valve sclerosis. 5. There is global hypokinesis of the left ventricle with minor regional variations. QUANTITATIVE DATA SUMMARY: 2D MEASUREMENTS: Normal Ranges: Ao Root d: 3.10 cm (2.0-3.7cm) LAs: 4.50 cm (2.7-4.0cm) RVIDd: 2.57 cm (0.9-3.6cm) IVSd: 2.02 cm (0.6-1.1cm) LVPWd: 1.46 cm (0.6-1.1cm) LVIDd: 5.70 cm (3.9-5.9cm) LVIDs: 4.30 cm LV Mass Index: 181.2 g/m2 LV % FS 24.6 % LV SYSTOLIC FUNCTION BY 2D PLANIMETRY (MOD): Normal Ranges: EF-A4C View: 46.1 % (>=55%) LV DIASTOLIC FUNCTION: Normal Ranges: MV Peak E: 0.99 m/s (0.7-1.2 m/s) MV Peak A: 1.19 m/s (0.42-0.7 m/s) E/A Ratio: 0.83 (1.0-2.2) MV lateral e' 0.08 m/s MV medial e' 0.14 m/s E/e' Ratio: 12.70 (<8.0) MITRAL VALVE: Normal Ranges: MV Vmax: 1.38 m/s (<=1.3m/s) MV peak P.6 mmHg (<5mmHg) MV mean P.0 mmHg (<48mmHg) MITRAL INSUFFICIENCY: Normal Ranges: MR Vmax: 199.00 cm/s AORTIC VALVE: Normal Ranges: AoV Vmax: 1.55 m/s (<=1.7m/s) AoV Peak P.6 mmHg (<20mmHg) AoV Mean P.0 mmHg (1.7-11.5mmHg) LVOT Max Garcia: 0.81 m/s (<=1.1m/s) AoV VTI: 36.20 cm (18-25cm) LVOT VTI: 20.30 cm LVOT Diameter: 2.40 cm (1.8-2.4cm) AoV Area, VTI: 2.54 cm2 (2.5-5.5cm2) AoV Area,Vmax: 2.37 cm2 (2.5-4.5cm2) AoV Dimensionless Index: 0.56 TRICUSPID VALVE/RVSP: Normal Ranges: Peak TR Velocity: 1.64 m/s RV Syst Pressure: 13.8 mmHg (< 30mmHg) PULMONIC VALVE: Normal Ranges: PV Max Garcia: 0.5 m/s (0.6-0.9m/s) PV Max P.2 mmHg [id number] Albaro Roman MD Electronically signed on 11/11/2023 at 6:04:53 PM Final Normal [facility] ECG 12 Leadon 10-04-2023 [facility] Work Phone: [facility] Work Phone: ECG 12 Leadon 08-16-2023 [facility] Work Phone: Office Visit (Cardiology)on 02-15-2023 Follow-up [...] Metabolic Panel; Status:Active - Retrospective Authorization; Requested for:[id number]; Abnormal EKG, Fatigue, High risk medication use, Hyperlipidemia Complete Blood Count; Status:Active - Retrospective Authorization; Requested for:[id number]; Atrial fibrillation IO EKG Electrocardiogram- 12 Lead; Status:Complete; Done: [id number] Morbid obesity with BMI of 50.0-59.9, adult Healthy Weight Tips; Status:Complete - Retrospective Authorization; Done: [id number] Some eating tips that can help you lose weight.; Status:Complete - Retrospective Authorization; Done: [id number] SocHx: Never smoker Tobacco Use Screening; Status:Complete; Done: [id number] Patient Instructions Please bring all medicines, vitamins, [...] per 2D echocardiogram dated June 07, 2020, [place] Heart Association class II, stage B heart failure. 10. Gouty arthritis. Patient remains on allopurinol, no recent recurrence. 11. Abnormal perfusion imaging showing an LV ejection fraction in the 20s, with subsequent cardiac catheterization showing LV ejection fraction of 45%, this was done at [facility] and that particular Catheterization did not [...] This is consistent with chronotropic blunting. 13. [id number]-PDPo score is 6 14.48-hour Holter monitor-minimum heart rate 46 bpm average heart rate 66 bpm maximum heart rate 99 bpm ventricular patience (more content not included)... Normal V[facility] Tobacco Screening.on 023 Fall risk assessment b) One or more fall s in the last year -[facility] y 250 DO Work Phone: Tobacco use status CP b) No -[facility] 250 DO Work Phone: Cardiovasc Arrhythmia Result son 11-30-2022 Cardiovasc Arrhythmia Results Reason For Visit Reason for Visit: Holter Monitor: LORENA is here for the application of a 48 hour Holter monitor. Ordering Physician: Dr. Margret Stevens MD Diagnosis: a-fib [facility] equipment agreement signed. LORENA understands monitor is to be returned on: 12/02/2022 Monitor number [id number] applied. Holter monitor returned and downloaded. Holter monitor returned and downloaded. 12/03/2022 Holter monitor printed and emailed to [facility] and placed on Dr. Margret Stevens [...] Appointments Date/TimeProviderSpeci altySite 02/15/2023 12:30 PMMargret Stevens, [id number] [facility] [address] 250 DO Signatures Electronically signed by : Margret Stevens MD; Feb 15 2023 2:58PM EST (Author) Normal [facility] Office Visit (Cardiology)on 11-23-2022 Follow-up visit Diagnoses/Problems [...] Metabolic Panel; Status:Active - Retrospective Authorization; Requested for:[id number]; Morbid obesity with BMI of 50.0-59.9, adult [...] EKG shows sinus rhythm at 82 bpm SC interval 158 ms QRS duration 102 ms [...] per 2D echocardiogram dated June 07, 2020, [place] Heart Association class II, stage B heart failure. 10. Gouty arthritis. Patient remains on allopurinol, no recent recurrence. 11. Abnormal perfusion imaging showing an LV ejection fraction in the 20s, with subsequent cardiac catheterization showing LV ejection fraction of 45%, this was done at [facility] and that particular Catheterization did not [...] This is consistent with chronotropic blunting. 13. EIH0UD7-LLRo score is 6 Laboratory data from September 2022 s (more content not included)... Normal Videoflow Tobacco Screening.on 023 Adult depression screening assessment No [facility] y 250 DO Work Phone: Fall risk assessment a) No falls within the last year [facility] y 250 DO Work Phone: Tobacco use status CPHS b) No [facility] y 250 DO Work Phone: BNPon 10-27-2022 Natriuretic peptide B (Bld) [Mass/Vol] 80.0 pg/mL Normal <=900.0 [facility] Comment on above: Performed By: #### B ROPE WALKER, CK, TSH #### [facility] [address] [place] [address] Dr. Maria T Canela CPKon 10-27-2022 CK [Catalytic activity/Vol] 302 U/L Normal 39-308 [facility] Comment on above: Performed By: #### B ROPE WALKER, CK, TSH #### [facility] [address] [place] [address] [address] Maria T Canela FREE T4on 10-27-2022 Free T4 [Mass/Vol] 0.87 ng/dL Normal 0.76-1.46 [facility] Comment on above: Performed By: #### F T4 ####[facility] [address] [place] [address]Dr. Maria T Canela GLYCOHEMOGLOBIN A1Con 2022 ADA RECOMMENDATION SEE BELOW Normal [facility] Comment on above: Result Comment: ADA RECOMMENDED LIMIT 4.0 - 6.0 ADA THERAPEUTIC TARGET < 7.0 ACTION SUGGESTED > 7.0 Performed By: #### A 1C #### [facility] [address] [place] [address] [address] Maria T Canela Glucose [Mass/Vol] 169 mg/dL Normal [facility] Comment on above: Performed By: #### A 1C #### [facility] [address] [place] [address] [address] Maria T Canela HbA1c (Bld) [Mass fraction] 7.5 % Critically high 4.5-6.2 [facility] Comment on above: Performed By: #### A 1C #### [facility] [address] [place] [address] [address] Maria T Canela SED RATE WESTERGRENon 2022 SED RATE 15 mm/hr Normal <=20 [facility] Comment on above: Performed By: #### S EDR ####[facility] [address] [place] [address]Dr. Maria T Canela TSHon 10-27-2022 TSH 1.477 uIU/mL Normal 0.358-3.740 [facility] Comment on above: Performed By: #### B ROPE WALKER, CK, TSH #### [facility] [address] [place] [address] [address] Maria T Canela Office Visit (Cardiology)on [...] lose weight.; Status:Complete - Retrospective Authorization; Done: [id number] SocHx: Never smoker Tobacco Use Screening; Status:Complete; Done: [id number] Patient Instructions Please bring all medicines, vitamins, [...] per 2D echocardiogram dated June 07, 2020, [place] Heart Association class II, stage B heart failure. 10. Gouty arthritis. Patient remains on allopurinol, no recent recurrence. 11. Abnormal perfusion imaging showing an LV ejection fraction in the 20s, with subsequent cardiac catheterization showing LV ejection fraction of 45%, this was done at [facility] and that particular Catheterization did not show any flow-limiting disease. The perfusion study was done in December 2021, cardiac catheterization from January 2022 showed nonobstructive coronary artery disease of the left system widely patent RCA stent LVEF 45% moderately dilated left ventricular chamber dimension mildly elevated L (more content not included)... Normal Heavy Tobacco Screening.on 023 Tobacco use status CPHS b) No [facility] [facility] 250 DO Work [...] in office. He had echocardiogram performed at [facility], which was normal. He was ordered [...] protocol. [1] patient was then referred to [place] and was placed on sotalol followed by [...] progressive dry (more content not included)... Normal [facility] Comment on above: Result Comment: Elec tronically Signed By: Camilo STARK, Kushal Galarza Other Comment: Appar ent pt no show Cardiac Stress Teston 2022 Cardiac Stress Test [address], [address] [facility] [place] [address] Exercise Stress Test Patient Name: LORENA CAMPOS Ordering Physician: [id number] Margret Stevens Study Date: 09/10/2022 Reading Physician: [id number] Kim Mckeon MD, [facility] MRN/PID: [id number] Supervising Physician: [id number] Kim Mckeon MD, [facility] Accession/Order#: [id number] Referring Physician: MARGRET STEVENS Date of : 1955 PCP: Beena Benítez Gender: M Fellow: Height: 177.80 cm Nurse: Tigre De La Rosa RN Weight: 168.74 kg Federal Mediation Commissioner: ROB BSA: 2.72 m2 Technologist: BMI: 53.38 kg/m2 Additional Staff: Age: 66 years cc report to: Patient Location: report to: [id number] Margret Stevens Study Type: Cardiac Stress Test Diagnosis/ICD: R94.31-Abnormal electrocardiogram [ECG] [EKG]; I25.10-Atherosclerotic heart disease; I42.9-Cardiomyopathy, unspecified; I50.9-Heart failure, unspecified; R06.02-Shortness of breath Indication: Cardiomyopathy Procedure/CPT: Stress Test Interpretation-[id number]; Stress Test Supervision-[id number] Falls Risk: Low: Patient has low risk [...] The adequate level of stress was achieved. [id number] Kim Mckeon MD, [facility] Electronically signed on 09/10/2022 at 6:25:43 PM Final Normal [facility] Cardiac Stress Test [facility] DO Work Phone: Office Visit [...] History of Present Illness Patient with atherosclerotic crooked creek vessel coronary artery disease, multiple cardiac risk [...] per 2D echocardiogram dated June 07, 2020, [place] Heart Association class II, stage B heart failure. 10. Gouty arthritis. Patient remains on allopurinol, no recent recurrence. 11. Abnormal perfusion imaging showing an LV ejection fraction in the 20s, with subsequent cardiac catheterization showing LV ejection fraction of 45%, this was done at [facility] and that particular Catheterization did not show any flow-limiting disease. The perfusion study was done in December 2021, cardiac catheterization from January 2022 showed nonobstructive coronary a (more content not included)... Normal Heavy Tobacco Screening.on 023 Fall risk assessment c) Not medically indicated MP-[facility] 250 DO Work Phone: Tobacco use status CPHS b) No [facility] y 250 DO Work Phone: BNPon 07-20-2022 Natriuretic peptide B (Bld) [Mass/Vol] 72.0 pg/mL Normal <=900.0 [facility] Comment on above: Performed By: #### B MP, BNP ####[facility] [address] [place], [place] [address]Dr. Maria T Canlea PROF CHEM 8 (BAS METB)on Anion gap [Moles/Vol] 11.8 mmol/L Normal [facility] Comment on above: Performed By: #### B MP, BNP ####[facility] [address] [place], [place] [address]Dr. Maria T Canela Calcium [Mass/Vol] 9.2 mg/dL Normal 8.5-10.1 [facility] Comment on above: Performed By: #### B MP, BNP ####[facility] [address] [place], [place] [address]Dr. Maria T Canela Chloride [Moles/Vol] 101 mmol/L Normal 98-107 [facility] Comment on above: Performed By: #### B MP, BNP ####[facility] [address] [place], [place] [address]Dr. Maria T Canela CO2 [Moles/Vol] 28.1 mmol/L Normal 21.0-32.0 [facility] Comment on above: Performed By: #### B MP, BNP ####[facility] [address] [place], [place] [address]Dr. Maria T Canela Creatinine [Mass/Vol] 0.82 mg/dL Normal 0.70-1.30 [facility] Comment on above: Performed By: #### B MP, BNP ####[facility] [address] [place], [place] [address]Dr. Maria T Canela EGFR-AF IVORIAN >60 Normal >=60 [facility] Comment on above: Performed By: #### B MP, BNP ####[facility] [address] [place] [address]Dr. Maria T Canela EGFR-NON AF IVORIAN >60 Normal >=60 [facility] Comment on above: Performed By: #### B MP, BNP ####[facility] [address] [place] [address]Dr. Maria T Canela Glucose [Mass/Vol] 190 mg/dL Critically high 74-106 T [facility] Comment on above: Performed By: #### B MP, BNP ####[facility] [address] [place] [address]Dr. Maria T Canela Potassium [Moles/Vol] 4.9 mmol/L Normal 3.5-5.1 [facility] Comment on above: Performed By: #### B MP, BNP ####[facility] [address] [place] [address]Dr. Maria T Canela Sodium [Moles/Vol] 136 mmol/L Normal 136-145 [facility] Comment on above: Performed By: #### B MP, BNP ####[facility] [address] [place] [address]Dr. Maria T Canela Urea nitrogen [Mass/Vol] 13.0 mg/dL Normal 7.0-18.0 [facility] Comment on above: Performed By: #### B MP, BNP ####[facility] [address] [place] [address]Dr. Maria T Canela Urea nitrogen/Creatinine [Mass ratio] 15.9 mg/mg Normal [facility] Comment on above: Performed By: #### B MP, BNP ####[facility] [address] [place], [place] [address]Dr. Maria T Canela Office Visit (Cardiology)on 07-06-2022 [...] IO EKG Electrocardiogram- 12 Lead; Status:Complete; Done: [id number] Cardiomyopathy, CHF (NYHA class II, ACC/AHA stage C) Start: Entresto 24-26 MG Oral Tablet; TAKE 1 TABLET BY MOUTH TWICE A DAY Basic Metabolic Panel; Status:Active - Retrospective Authorization; Requested for:[id number]; Brain Natriuretic Peptide BNP; Status:Active - Retrospective Authorization; Requested for:[id number]; CHF (NYHA class II, ACC/AHA stage C) Start: Furosemide 20 MG Oral Tablet; TAKE 0.5 TABLET Daily Morbid obesity with BMI of 50.0-59.9, adult Healthy Weight Tips; Status:Complete - Retrospective Authorization; Done: [id number] Some eating tips that can help you lose weight.; Status:Complete - Retrospective Authorization; Done: [id number] SocHx: Never smoker Tobacco Use Screening; Status:Complete; Done: [id number] Unlinked Stop: Atorvastatin Calcium 80 MG Oral [...] is accompanied by his who works at [employer] [facility] [employer] in the cafeteria. Prior records were [...] function test, and Lexiscan stress test at [facility]. He states he has absolutely no energy and is easily fatigued, he is short of breath and he has a nonproductive cough. He denies fever or chills. He is accompanied by his who questions whether he may change his cardiology follow-up to [facility] due to proximity to home. Patient wishes to establish care at [facility]. Predominant complaints are unrelenting fatigue, short-term memory [...] abnormal wit (more content not included)... Normal [facility] Tobacco Screening.on 023 Adult depression screening assessment No [facility] [employer] [facility] y 250 DO Work Phone: Fall risk assessment a) No falls within the last year [facility] y 250 DO Work Phone: Tobacco use status CPHS b) No [facility] y 250 DO Work Phone: CBC AUTO DIFFon 06-15-2022 BASO # 0.1 103/ul Normal 0.0-0.1 [facility] Comment on above: Performed By: #### C BC #### [facility] [address] [address] [address] Maria T Canela Basophils/100 WBC (Bld) 0.7 % Normal 0.2-2.0 [facility] Comment on above: Performed By: #### C BC #### [facility] [address] [address] [address] Maria T Canela EO # 0.2 103/ul Normal 0.0-0.7 [facility] Comment on above: Performed By: #### C BC #### [facility] [address] [address] [address] Maria T Canela Eosinophils/100 WBC (Bld) 2.7 % Normal 0.9-7.0 [facility] Comment on above: Performed By: #### C BC #### [facility] [address] [address] [address] Maria T Canela Erythrocyte distribution width (RBC) [Ratio] 12.7 % Normal 11.0-15.0 [facility] Comment on above: Performed By: #### C BC #### [facility] [address] [place] [address] Dr. Maria T Canela Hematocrit (Bld) [Volume fraction] 39.7 % Critically low 42.0-54.0 [facility] Comment on above: Performed By: #### C BC #### [facility] [address] [place] [address] Dr. Maria T Canela Hemoglobin (Bld) [Mass/Vol] 13.4 g/dL Critically low 14.0-18.0 [facility] Comment on above: Performed By: #### C BC #### [facility] [address] [place] [address] Dr. Maria T Canela IG # 0.01 10e3/ul Normal 0.00-0.03 [facility] Comment on above: Performed By: #### C BC #### [facility] [address] [place] [address] Dr. Maria T Canela IG % 0.1 % Normal 0.0-0.5 [facility] Comment on above: Performed By: #### C BC #### [facility] [address] [place] [address] Dr. Maria T Canela LYMPH # 1.7 103/ul Normal 1.2-3.8 [facility] Comment on above: Performed By: #### C BC #### [facility] [address] [place] [address] Dr. Maria T Canela Lymphocytes/100 WBC (Bld) 25.0 % Normal 20.5-60.0 [facility] Comment on above: Performed By: #### C BC #### [facility] [address] [place] [address] Dr. Maria T Canela MANUAL DIFF REQ NO Normal [facility] Comment on above: Performed By: #### C BC #### [facility] [address] [place] [address] Dr. Maria T Canela MCH (RBC) [Entitic mass] 30.0 pg Normal 25.9-34.0 [facility] Comment on above: Performed By: #### C BC #### [facility] [address] [address] [address] Maria T Canela MCHC (RBC) [Mass/Vol] 33.8 g/dL Normal 29.9-35.2 [facility] Comment on above: Performed By: #### C BC #### [facility] [address] [address] [address] Maria T Canela MCV (RBC) [Entitic vol] 89.0 fL Normal 80.0-94.0 [facility] Comment on above: Performed By: #### C BC #### [facility] [address] [place] [address] Dr. Maria T Canela MONO # 0.6 103/ul Normal 0.3-0.8 [facility] Comment on above: Performed By: #### C BC #### [facility] [address] [place] [address] Dr. Maria T Canela Monocytes/100 WBC (Bld) 9.6 % Normal 1.7-12.0 [facility] Comment on above: Performed By: #### C BC #### [facility] [address] [place] [address] Dr. Maria T Canela NEUT # 4.1 103/ul Normal 1.4-6.5 [facility] Comment on above: Performed By: #### C BC #### [facility] [address] [place] [address] Dr. Maria T Canela Neutrophils/100 WBC (Bld) 61.9 % Normal 43.0-75.0 [facility] Comment on above: Performed By: #### C BC #### [facility] [address] [place] [address] Dr. Maria T Canela Platelet mean volume (Bld) [Entitic vol] 10.6 fL Normal 9.5-13.5 [facility] Comment on above: Performed By: #### C BC #### [facility] [address] [place] [address] Dr. Maria T Canela PLT 163 103/ul Normal 150-450 [facility] Comment on above: Performed By: #### C BC #### [facility] [address] [address] [address] Maria T Canela RBC 4.46 106/ul Critically low 4.70-6.10 [facility] Comment on above: Performed By: #### C BC #### [facility] [address] [address] [address] Maria T Canela WBC 6.7 103/ul Normal 4.0-11.0 [facility] Comment on above: Performed By: #### C BC #### [facility] [address] [address] [address] Maria T Canela GLYCOHEMOGLOBIN A1Con 2022 ADA RECOMMENDATION SEE BELOW Normal [facility] Comment on above: Result Comment: ADA RECOMMENDED LIMIT 4.0 - 6.0 ADA THERAPEUTIC TARGET < 7.0 ACTION SUGGESTED > 7.0 Performed By: #### A 1C #### [facility] [address] [place] [address] Dr. Maria T Canela Glucose [Mass/Vol] 223 mg/dL Normal [facility] Comment on above: Performed By: #### A 1C #### [facility] [address] [place] [address] Dr. Maria T Canela HbA1c (Bld) [Mass fraction] 9.4 % Critically high 4.5-6.2 [facility] Comment on above: Performed By: #### A 1C #### [facility] [address] [place] [address] Dr. Maria T Canela MICROALBUMIN, RAND URon 05-31 mALB <1.3 Normal <=30.0 [facility] Comment on above: Performed By: #### M ALBR #### [facility] [address] [place] [address] Dr. Maria T Canela PROF 14(COMP METB)on 023 Albumin [Mass/Vol] 3.9 g/dL Normal 3.4-5.0 [facility] Comment on above: Performed By: #### C MP #### [facility] [address] [place] [address] Dr. Maria T Canela Albumin/Globulin [Mass ratio] 1.2 {ratio} Normal [facility] Comment on above: Performed By: #### C MP #### [facility] [address] [address] [address] Maria T Canela ALP [Catalytic activity/Vol] 81 U/L Normal 46-116 [facility] Comment on above: Performed By: #### C MP #### [facility] [address] [address] [address] Maria T Canela ALT [Catalytic activity/Vol] 65 U/L Critically high 16-63 [facility] Comment on above: Performed By: #### C MP #### [facility] [address] [address] [address] Maria T Canela Anion gap [Moles/Vol] 12.2 mmol/L Normal [facility] Comment on above: Performed By: #### C MP #### [facility] [address] [address] [address] Maria T Canela AST [Catalytic activity/Vol] 47 U/L Critically high 15-37 [facility] Comment on above: Performed By: #### C MP #### [facility] [address] [address] [address] Maria T Canela Bilirubin [Mass/Vol] 0.5 mg/dL Normal 0.2-1.0 [facility] Comment on above: Performed By: #### C MP #### [facility] [address] [address] [address] Maria T Canela Calcium [Mass/Vol] 9.1 mg/dL Normal 8.5-10.1 [facility] Comment on above: Performed By: #### C MP #### [facility] [address] [address] [address] Maria T Canela Chloride [Moles/Vol] 98 mmol/L Normal 98-107 [facility] Comment on above: Performed By: #### C MP #### [facility] [address] [address] [address] Maria T Canela CO2 [Moles/Vol] 27.3 mmol/L Normal 21.0-32.0 [facility] Comment on above: Performed By: #### C MP #### [facility] [address] [address] [address] Maria T Canela Creatinine [Mass/Vol] 0.80 mg/dL Normal 0.70-1.30 [facility] Comment on above: Performed By: #### C MP #### [facility] [address] [address] [address] Maria T Canela EGFR-AF IVORIAN >60 Normal >=60 [facility] Comment on above: Performed By: #### C MP #### [facility] [address] [address] [address] Maria T Canela EGFR-NON AF IVORIAN >60 Normal >=60 [facility] Comment on above: Performed By: #### C MP #### [facility] [address] [place] [address] Dr. Maria T Canela Globulin (S) [Mass/Vol] 3.3 g/dL Normal [facility] Comment on above: Performed By: #### C MP #### [facility] [address] [place] [address] Dr. Maria T Canela Glucose [Mass/Vol] 291 mg/dL Critically high 74-106 T [facility] Comment on above: Performed By: #### C MP #### [facility] [address] [place] [address] Dr. Maria T Canela Potassium [Moles/Vol] 4.5 mmol/L Normal 3.5-5.1 [facility] Comment on above: Performed By: #### C MP #### [facility] [address] [place] [address] Dr. Maria T Canela Protein [Mass/Vol] 7.2 g/dL Normal 6.4-8.2 [facility] Comment on above: Performed By: #### C MP #### [facility] [address] [place] [address] Dr. Maria T Canela Sodium [Moles/Vol] 133 mmol/L Critically low 136-145 [facility] Comment on above: Performed By: #### C MP #### [facility] [address] [place] [address] Dr. Maria T Canela Urea nitrogen [Mass/Vol] 14.0 mg/dL Normal 7.0-18.0 [facility] Comment on above: Performed By: #### C MP #### [facility] [address] [place], [place] [id number] Dr. Maria T Canela Urea nitrogen/Creatinine [Mass ratio] 17.5 mg/mg Normal [facility] Comment on above: Performed By: #### C MP #### [facility] [address] [address] [address] Maria T Canela Coding Summary.on 03-18-2022 Coding Summary. CD:[id number] Gh 0bWw+PGhlYWQ+OO8ZLMGpB 41ngFJqbR4ND0wOVR6OFVD XXIPHVK0RQY4weQR3LJaqF 2VybiAv TeabpVOjYM65KSh6PRH1gZ bdWOwddZ1nfRTsS3i0ZmFv HR34tZ93KGhjPTVlEbQ6Dh ZpbjsgbWFy A0ayLpMdeVQuDvm+PHRhYm xlIHdpZHRoPScxMDAlJyBz dQitMD4cMc6yJYJtDTAsdB xhcHNlOiBj e9xbSCZyAGzlCT3nnGkuI1 ShdWI0GWUqj5n8Ef85aSD+ WDJuOIG2cQqrGPnke061Zb The8ruUBP8 tWQkXXixFXP1P22xq2K8YW PuGVXlOZJ0iLO4bR9hkTnp ghhlP1FxzXWzLsV5LXR8vL MjbW3syAcu avpeeP0vQwf+V13HQJ8VRR ASUK3PCii4W1JnOsytiRQ+ WG52IBIjWP84rBCufZQiv6 fpsGc3BuIy SPIiPCO8fNyqKZikw4PnUZ DzB36cjAFnh5A2BRLfdOhe fVVcQvZamTE9qZ8sGOhqnl rqj7ejgzoc Bcpzx0aitq87pT51W11iYY cuHMXqILN6TRJuEQYydQjn to5xrC4kKf0+VTtqi5hjj6 oqbNc1JwCw UXNgsiYajOqgWXN3y4FkAg 54U1RpcZkvc2ArRzu4uw93 pORjh6Z9dLF7QWdaIBYnxQ 1lLXlxQbR9 ALYqMlFdnL18mNMaNQiiKs 2igHqyvBvpMC3yYZLtgqxb KLRjcI8aQKTsoHLsfUdbIV 4wNTBpbjtm u396SrZeZZH5EOYbwEUoX4 YwlG2uLuQwMFLlICXzG7Vw nRApZUjgF541XYqvZuG8FF FawtQcS7Qh OMLusTypOqP9e3S7Dv1Wv2 JatjpfXXC5JDpvYGJdSdU0 RvGoCuI4O1ZeSft3QPHowW ktDR5xH4Qi JWUvicdwatamkXC8UEDbMF JfmP28oCMiLDwwPq4nk7U2 h714ALCyTCBtkW70Pc4whO ogMTBwdCBU lM5lftrhf7ylyobyOqTtLU FsIMf7ATf2ELEdtNnnLgBa HEI0WnD0DVR7fIPdoG8tlN vgvxavtR8k Oyc+V91bnG2uHNU4TSZ6nq diNPXscuAuZM56JL68S8Ff PjwvdGFibGU+PGRpdiBzdH gfXT6iMlDp n7lrf3GuZPnxT1SlCOGhUO ljRtn0QPLbAYQ0eWZ2dA9u TVBmTZqaz8A0dFP6B0Msii Ugrx6kk2ge BSFfWJonW18yoSRfg8D8ZY YtrRY3UYYdtXmhQjSmaD55 Oyc+AMTxuIhkh8EdFfyhv2 ebq6xpfFd6 FySsIPSghrQqxWnwTAH9v2 FgBl16W06pLGcrJDUoEMDi SFGjMCQelCpamm4muU4pEw 8+PGNvbCB3 qBM6aK5tWKRkStI9ZDpwN4 64ZeFynFIiMnzad8pkz4iy lKz2VpAwELPwuxNteOboPP G3d6MaEh12 R56vVRxrQSRgXQTrUUMtGG SvnNtpjd5ymG6jTr3+PC9j i0umte06oT11aWP+PHRkIH Q3nXmrISlt JKHtwW4bWKvrZlI5ECReBx CtuG76yKHdYPtpEw2pfHqo nDsxAE0nYVRnhtpfe702Io Gtk5tnSAHp iQHeKGtpXLC4P93rm4K1EL IpABPfJPD1pSQ3vL7mdLlf bjogbGVmdDsgdmVydGljYW ctGOzxD536 IHRvcDsnPlBhdGllbnQgTm NrXTs0S0YaNgh8EPUruMru YU3siWEmHKucDb1qjGrelC gyPY0vMBRd xtktw037WqWen1iuQDEqzO PaIJwrEGT0S80sk4S7EEWh VRRgLMD9nXQ3zQ1mrDkmss ogbGVmdDsg cnLtqXwqNJywIWrtE188TE RvcDsnPkJpcnRoIERhdGU6 EO06KO17qDCbw4E9bSF5X4 BhZGRpbmct vcyylGD6ZGOmFYHnhV80So 9brWcyGu2rRRGyWQD3ETEo tYIoM5KueD5iNdMrBBSbHG DsL4WlcQLo RFvfS220ALvaKqU8YJTppr IxG8FnIVZilNnhYrA3a3N1 Fn2MC4X7JG54EV54xMOer5 A5xJR1M3Xx HMTijinixbslfWA7WTGgWZ SjkW61Hh3jnOmmBg3sJFYf IXK1AOIudRKhY7DhoX9iQt AjMDAwMDAw F1SbyBViHPyfQ631SGxvXr S1DGFzcpYcU6TnZCEbkDxt RpS5j4A6Ht2FGJh2MB29NW 41qRHjm2L5 qAC8J2BhKBBsjvuyayjmuC I7KHTxWDIdgC36Um7psXgt Kp3kKGEzDDR3LTYtbDPoX4 NppE2jAwBz THUeOPPgA4PbjVJqVPubP9 20WKjpLyS4WECgzzZzV7Kp CRVprQhzIgF1n3G1Si7QWW NlUE40ESI1 wAV2UQ87BI37B7KtUqabaA FibGU+PHRhYmxlIHdpZHRo EBzdYDDyReOzhCmaSU1pRx 9yZGVyLWNv rLdfzQVsVnGtq4krMNCtQL qcGX3izDlzW4BubPM0BHFc u9v0Og18B02gK3SmaPD+PG IviOA5yLY6 qE5jWtBnPsV5CMuzS693Gn PsfMLsDgruv3txx7fehYw1 OtL7IAMxcaEjiJkxQUB7g5 TbBt11W62n IHdpZHRoPSIxNSUiIHZhbG pbfv9yjM8iOt6+PGNvbCB3 pQN6kS1mTiJfCcW3IJoqL5 49InRvcCIv Gslsc7vgg6avrQy1IiTsBP WjtiDsvKhbVFP3j9IwRk60 N3RprMnwu2LiZnr3dw92cS Hwi7I2sZC4 V8NyTOMjklfdzJZcfTxxPL 7zVKHbpywyIETppA3lFABi O1o6JgYqHzB2SLckH6Mjbz C6UOZlaMUb TCvdGPH8I26dn5I7AYIuPH LpTIW9kUX4vA4vdPpbhuwx bGVmdDsgdmVydGljYWwtYW doJ559DXGb iLbhTJVzoH4lJCTpwOWtaC ddQI4gQHEdpoehSrWZLcSX RfgzMBHNRGRLYyYSHE15LL 27gOVoz5C9 fDI7X0TlIDThzsrmzzqniE H6EPXoDYOazE60tAYlMBxa Kg9lu1K6k215OUOzXEFxzV 68Zs6dfGlw ENDpiKQZxY4jlrptm1unql iyFkRkISAzYNe7IDy9ZHDa jZvrQkNrDAP1YlT4JHS0uT FcbA2kzHdl yxmqeH9zCsp+MDUvMTEvMT d0CJdnaTO+GSZqXSX1uQmj TMafULXywW1nHFIoS6u5Ga XvWfC0HZgu R1AtQNRzciwxHb04gG6bPl UlOpP3XFbvR1AddrR0JGLw yXHiXYsjYBU7R00di2Z4BG MwMDAwMDA7 pSH9rI8aaAiugjwbcUVntY gotfLhfGbiEHdyEXcoS600 MBBuvUziGrA9IFusEWXrLV 93BW71tZEa x4E5mKP3F6CmVHGernweil qeqPK8FUUhNHGxpD76zWEv CThlLq8vs5X8d867ESYgDH HsjP64Rq8m rZrzQZZetJCYpQ4uzgssh7 bxgdbyFqLfPDDmMMv2KWl8 GLGyiQtfWvOpVPW1XvT3PZ E9iUHsvS9f kRugtuktgH3kZod+TWFsZT wvdGQ+WLXcMWA9eRvxEIaf PWPghO8pFFJfV8r1AyEfVa Z3PZmfQ8Qe BLTncjrjZp70kH0yUqWoLh F2OLasM8AklbA8FFEhnTRv BOjzFLB1M78vn5L2STRlZS AgIVF0wAX2 nS7liCxvbsvvsGQgdPoexp CmmFgpFHmpPVskU402QKPk uPahNy72wTMfmEvijrH2G2 RkPjwvdHI+ JO53MLWsDR15nCUydJDxg3 lteAb1GfLvEPOlRNE0jIft QZyjs3XkBWOhS10jiFTyz5 Q5YDDadGjl pAYfEeCyrQR8yY5rRGjtwv lpv7dgbwxtIzrwu1vptu18 iY19W36dBXzvTBDkXCGpOM UiIHZhbGln jc4tiA6wPe3+QCKsaSV4wT R8mU8zPsQgJnK9DFngB786 RiMbkHQdJjwmx9igx5nocC n3HoFbBDTv piPdtJubBLJ4w7YmAr13N5 9sIHdpZHRoPSIyMCUiIHZh fDksoq3ttN1eSc6+PC9jb2 znac63rS99 dHI+KXPqCYF4vNvmSZvmXU AeeW9uXDyaWzA7ICKqEvEa dI86wQLvVIfbSf8pzWwzpQ onYO4lRCWn jrziz558OhCpi4bcENPoiT CmCYfmSNS7G31bs9J0UGGv LRGvOBF8xFG8uL5dlXmbon ogbGVmdDsg hoLzzQsoIUidUMucR281SO TnaXotVnVzhLZjU9pzwaGK FB6cAlabrFL+YARmDLS4cU xlPSdwYWRk xH7cEOYkZ0m1WsRhIeF5VK qoV8RtmvF4BVStyQDkERAa uYBAkA0blompz3gfeufaYo AwMDAwMDt0 MLd1SNYtrQtzZcDqJMJ2Ox Y3FPT6gGPbwK9quGnmnhju sR9mKja+RklOOjwvdGQ+PH TnSWV7yRbp SYrkSRPeoT5zSZRqZ5c6Gn SpMhB1EMnjU2SjaoT0CDTm eSIrPBVpjLBOdE0dauunb6 xvcjogIzAw WFRdYDn1ANn9JLUvdPqbEn KlYIM9JrI3USW9xIDjyI8u qWskqtbqaT9bKud+TVJOOj wvdGQ+PHRk MLO8kIpuRYefVDMwpM2aYV XuU4m0QyCmPsE4OGpyL8Pz yiK3GLTvsXBrCBCagMWGmX 8oiucdy6wk dcecCyDdLTKlJDo8GJh7HM VtgOneSoGdMTY6TcC9LMP2 wMIvrT6zdLzdycdvnJ7pXh c+DPG9LKD5 JE43UO32T2ChZdbcxQHhqD U+PHRhYmxlIHdpZHRoPScx QQCsPsNsfMnfJV2cMf6sTD VyLWNvbGxh cHNl (more content not included)... Normal [facility] Consent for Treatmenton 02-28 Consent for Treatment [id number] 2099 [id number] 0CD:[address] [facility] Office/Cl inic Noteon [...] in office. He had echocardiogram performed at [facility], which was normal. He was ordered [...] protocol. [1] patient was then referred to [place] and was placed on sotalol followed by [...] progressive dry (more content not included)... Normal [facility] Comment on above: Result Comment: Elec tronically Signed By: Camilo STARK, Kushal Galarza\.br\Date and Time Signed: 03/09/22 11:29 EDT Progress Note-Physicianon Progress Note-Physician [id number]#[id number] 0CD:[address] [facility] Coding Summary.on 02-10-2022 Coding Summary. CD:[id number] Gh 0bWw+PGhlYWQ+XH7ZVSYxY 62rkPOeuA8PU2sYPK5FICZ OOVLOIB6XUC5owNQ8MDrjV 2VybiAv JupdmIKrQO61AGw6LNZ0yF jdNAzogQ2tgPDlR8q3TgAc CP59oQ82YTzrXRVoMjH0Mv ZpbjsgbWFy Q5fuAoWsvYPmTsx+PHRhYm xlIHdpZHRoPScxMDAlJyBz eCiaLX0gSu5rPCDdZNQrfD xhcHNlOiBj l4zuZKZlILgmYJ1utFrfL5 FgoBX3SUHbs4g5Hv20tBQ+ KXWrPZY1hXtbPMuff628Qq Idk7odJSX0 mWBiSPwzLGO5P38dn0B2JA LkLBCsTLL5eKX4kR4hdXjv hyhwM1UleZWmKeC8PBK7nO FhyZ6lnRkz feokcA9tCnl+G21JIK6MGT HNXE9AGif8R7NgWtpgvXO+ AG42XHTaXH65hPFiyFLtw4 nfaCm3XeSd TEXdPSJ1wQchCOeth1UhRO BkE73hvBPhz7J0XQIpaNmi dIWcPeAkqTQ1zV9qZWekkm gvg8ejnacc Qrggg6aukd51lD70U55vYP wmZGYaCJK2ZNPfKQGvxAni il6qgQ4jTu2+RYjql0gge8 hqcVd3WgWs QKBfprYyhXpjFNJ4h2EdKq 20E4XksNijt7ObCjy4aa60 jRRgx1U3qAG0ZEwhHJMbcV 5aHMrcCiQ7 YSEiYuFaiM45oEQfYYqyUr 7xtBbieZbgMX4wPMJwqkty YWShsJ5vQADdrWSvwLbqNN 4wNTBpbjtm d429AxGoCVX9MUCppVLiP7 KemF0sQrDvFXNtNUTnD4Sd oMAgFNjoL463VHgoYeT1YG YydlRaQ8Ag KXZzbYbbSeK1c5D4Yp9Ho0 IsrxmtBUH7ZNboOAY2PuWo XrEjRkZ9M7DbXna6PRWrcA qcSA9sZ3Gt BCBxmqmpashblJY4GRHoEH HatA42kVDuVYcqLu4qc4L7 x088LKSnKZCipD31Dr4wvO ogMTBwdCBU aS2sxtkpq4ztrajnXsLsGD NjHOu9VUi3NQYgjKaqReAr CEV1KaB6SBW0vHLlaG0fmT dchooisQ0d Oyc+L30fiJ1cYCB7JIE7xr yhKJGnkhOzTQ38PO85J6Gq PjwvdGFibGU+PGRpdiBzdH tbEF1yAmBb g8myx7ZdWSucE5KqIWSwNZ irQjt0EHVyDYO7fQY7lY0r UVQiFVfuq1W3aVQ2T0Kscw Rbno9ca3nu USDrJBytM54qgRIcc8Y4ZA OomIF7TSNimClyRrCrxF20 Oyc+FEBgvUdlg8MbGslxn6 ete7iqbQi3 QgWtVKQjjuLrkIqtGGB3h8 GlUe47N71tMUhcZEIsVCOv YRKuOZXccHgqdy9enK2cLm 8+PGNvbCB3 gAG3tS5rKMKrAtQ9YHvnX6 01VzBoiXXhLjdyz3eeb4qf zLe1IyNtUEDpmoXktGiqSX H3r7QkHk76 W18uZEkzSOFwSVPgENUtLY UilNnxzj7maT4vOd7+PC9j h7qsmm94fB73kHH+PHRkIH F8oVdlJFcz MGMmnP7yNXgnBlV3ORLgFy ZjeD47wLQkAMqrUs2skUhr sTiiQQ7lCPWziatbu411Mg Zyd3kmGWCq uCIaWUrnFOV6V79jm0F1MW UcVAXsBTA5cKV2uH0eqCdl bjogbGVmdDsgdmVydGljYW qeEDovV421 IHRvcDsnPlBhdGllbnQgTm DgXZk6K6QgRtv3JCEwoQqo SN0nfMHbVLsxVu8kcKljnM uvTI9fPLAa zjamq846IjMhz3ysZLZekB PdJSboJCW5D73yd8R9HAQg YXMlTLO3qOM5pW2txBacnq ogbGVmdDsg frHyxQdoFOyySHecP188SV RvcDsnPkJpcnRoIERhdGU6 ZH63JF53bJNts7M0bMI3Y6 BhZGRpbmct bwcwdBR9NEJfYCZtkD22Yv 7xpAptAg6pESSnVEC6QILv eMQdJ6WlaD3qWmPbNOBiQG FtH7DatIJs BWbgM927MXpmKvY6TRIkny RrJ7HaKTFurMdiSbQ0f1L3 Am6UK8Y9SC47GA40lEBax5 H4bIH0W7Zw JGFaodedszcaoBG9SABfZE HlpS28Jy5wbEwaSi1wIGHw SCV9MCLnbGDyS3BirJ9pXs AjMDAwMDAw I7UpcATiAQfwR593HKqvZj N9CTSzrfWxN6JgUSYxaYgz RxP1k1N9Eo2YFGs8RA73CD 55hEYae7D7 eTV4S6WqNMEtynktfhcdeD C5AWSxHGZppK71Hg9rfMyp Sj7lJCFuNGT6LZAzgURaW9 AxcT3xCvLf QYLhBKYqP1VshYKwENfgW8 38MPjkSxC2HYKtebNuF9Jd AURzqLobTfQ0c4G8By7AYX CgTP51OLO9 xEX0GL12SU90B8ByDcurzT FibGU+PHRhYmxlIHdpZHRo OIpjIZKdAlQjbJgpSH0xKa 9yZGVyLWNv sCzboDPqAsOfb9edIATjYV sgAU6reSecD8IglWL9YJDb r4e3Hi88N94fQ9WltZM+PG GaxQM9mOY3 cS6uDkVoSfG0TWnrX742Wy AnkUSnHmxjw9ocb6ihcQe3 CfZ9ORSmhaQbyLxiVZV9b3 TjQv67W41q IHdpZHRoPSIxNSUiIHZhbG iwat4jlQ7fOq4+PGNvbCB3 dIN2bE0jEdAxTcQ7PElmO8 49InRvcCIv Awdwn4eka8iloEa6HeSyQW DixhVxlCmzOKS1s7KdQf26 F9VesGrvz6VaViy8bs50hC Ens0D7wFL6 N4UgWZBkqrvlwMYvgAwbHY 2iADYusyrxHORqnV1zAOGm Q9r9JkGzUoZ4HYeoI4Znwg W9WMAgsWDh VNmuHCN3P21tg1I1ZCRfPM YaVFM7qEP5tC2lgOjaylij bGVmdDsgdmVydGljYWwtYW yvF312DEBc jZraBZLsvS0nPVZpbGBwfL mrWN5tFVPrtyuqOhSIHpBC EhdlAJEHRTLGRyGQXW07AS 64fJOuz9B5 jQL4S0EsLZNbepgmaxdjaP Y6KPIiYRWvkZ05mWUmAVwj Po9xc2D8x304EOOjHVMjlL 97Fd8qhYxf AMFuqFKHnW5ciuxzk9nmgf yvAfMtIFSgTJi7LQm3EEHg fAnpHlGeGIT9OeO5ZPY5jD BmmV0caLdt djidbT1xVdj+MDUvMTEvMT q6KSuepST+EGMfAMD1uCyr PWgzNAYxcC0dSHVmC8i3Cj OfYvF9NWhk U2PqIMGwqapmOu36xP0iBr YqClX6LVnuF2MzmfC4ATAg kOQgKIrnEWJ0T58gw1V7DN MwMDAwMDA7 zGW4fI1gwNcylcaftWSkeU odwaXqoPifGJeaXCcjP354 KRIsoTtnOdY9CIlfHSByXN 41FU59tWPs b1W8kGX0R8ZgWDCqyrmkpo aepGX6RLMvJMHchH84aUEn MPnpNd4kj6L0v844HEOoAK AogS37Aj4m vIccPPAzaUNAzB9ojhkrb3 uofiwrFpHaIHUpQMs6EJj1 LBFeqNpeWcOzCXT1AfG3BI R0sYYpyZ0v tFtsaphkwD0xAty+TWFsZT wvdGQ+HAKlRVQ8gKdwUQor WYYnpR5oUSRgC1t2WoTkJi R3JAunU4Zd GSHmihjyXw01aS4aNxKfDl N8CPubP4FnbuL6SCWkiKFj CGxgTIE7P46nw4J7ITWgWW VsYOH6xIZ9 kS2ckFlujcmllPMdoPylmt XtqYsaPVaaSOygK108POHj cDsnPkFtYnVsYXRvcnkvU2 FtZSBEYXkg W5NwK2RnzFwodLW+PC90cj 43B5IqIasaJpj0SLJhOLA9 tFE8nD0mBXBuFYogv9E9rV T3P8RyqtOn se6aa8cjBDOxRMvtJ34bnI Thx2Z9YPAhgLH3BYVnwUed FdWptF07Ois+PGNvbGdyb3 NeWlscq8pn q0dkxYw6CmNaPXBiovAleX wmCDD7e0BmYx50H65yPOjy ZHRoPSIzMCUiIHZhbGlnbj 7gbE5hKv6+ UPDnjVT3tAX4aK5mIrOwNj P2WRsxQ151SmIhrOMyBiqm r2dkk8igqMd5UwKmJGVffr FsaWduPSJ0 i8SvGx09O9HbhDlmv8XsAb e2ph04mREyg9W7rOX5L7Xn ZPLrfrfgwMXrlWmdVO8jOZ BpbjtwYWRk gW6bBTRiM8z3KeAbFiV9BL loZ5WrxtK9NOGfsBQdJFGy pHPVcV8pklxpr2qervvcXe AwMDAwMDt0 HEp1ADIujExvQeIaXGI7Ga K3MVA4iQOhfN4ksZgiyglr bD6rMty+KKu8c0orxQRqRE 3bdZA8TG89 UZ99fVHtc4P0kSP6A4KrPJ SilipxqbrdsEI3RAXaYECu xN93St9ddTflCg6lTQVyWF H5OGFpaCNv E5NghG8vAcRpQUScABMrJ1 KztSLjOCcgP038JOdkLnA7 PSNnvmDoI4CnJFWhtFybHb E7l1Z1Tr8M YP82YA94UQ00rQGqb3S0xT O4X3BnZEFnuxbiaklytDI9 OEMcLCYerJ70Yb5ktTggJn 8hMLBtDWY9 LXFtyNFyR6CdeG2eUdYiQY EjHZKeX2TliIAvOJxmB771 OXizAeS5JACuvtKyA1HxRO FsaWduOiB0 y1A4Iv0BGp65UG84IR03rM Qpy2U1vLG8Q3SvMEBupuss plhsiZB1HOCiVJFnlA00Pg 2zgMvoRy3l FOOsGRA0MAUxxDFoT0BjsT 7yGlVlPOWeOVGmF7WzaLDc BJrpF205RUwrKxP5NXRlbg XsG8QuHZXt mBfuBvW2q0S2Vm0SRHwbyz o8Z6AfLtsjwKE+SH24SQLk PT53fFTlwLXki8lexOw3Wd EwMCUnIHN0 eWxl (more content not included)... Normal [facility] Consent for Procedure/Surger yon 02-09-2022 Consent for Procedure/Surgery [id number] .[email or web address]:[address] [facility] Cardiovascular Reporton Cardiovascular Report [id number]. [email or web address]:[address] [facility] Consent for Treatmenton Consent for Treatment [id number] 0CD:[address] [facility] Inpatient Clinical Summaryon 02-05-2022 Inpatient Clinical Summary [place] [id number] Clinical Summary Person Information: Name: LORENA CAMPOS Age: 66 Years : 1955 Sex: Male PCP: BEENA BENÍTEZ MD Marital Status: Phone: [phone] Race: White Ethnicity: Non- or Language: Amharic Visit Id: Visit Reason: R94.39 R07.9, I25.10 Speciality: Acuity: Enc Type: Ambulatory/Same Day Surgery Med Service: Surgery Arrival: 02/05/2022 06:31:58 Discharge: Dispo Type: Address: [address] [place] [address] [phone] Provider Notes: Diagnosis: Problems Active Hypertension Acid [...] Follow up: With: Address: When: Kushal Page [address] [place], [place] [id number] [phone] [facility] () 03/09/2022 11:15 AM Type Location Start [facility] Cardiology Follow Up (FT) FT[facility]Cardiology Clinic 03/09/2022 11:15 AM 03/09/2022 11:30 AM Confirmed Patient Education Information: CV - Cardiovascular Discharge Instructions (CUSTOM) Normal [facility] Inpatient Patient Summaryon 02-05-2022 Inpatient Patient Summary [address] [address] Patient Discharge Instructions PERSON INFORMATION Name: LORENA [...] Follow up: With: Address: When: [place] [address] [phone] Business (1) 03/09/2022 11:15 AM In the event that this physician does not participate in your insurance network, please consult with your insurance company to find a nearby participating provider. Type Location Start [facility] Cardiology Follow Up (FT) FT.Cardiology Clinic [...] 2 ti (more content not included)... Normal Sneed [facility] Operative Reporton 2 Operative Report SURGERY DATE: [...] an exchange length J-wire. Next a 4 Croatian sheath was placed without complications and flushed with Heparinized Saline. Next a 4 Croatian JL5 catheter was easily engaged into the [...] exchanged over a wire for a 4 Croatian 3DRC catheter. This was easily engaged into [...] exchanged over a wire for a 4 Croatian angled pigtail catheter. This is easily engaged [...] . Kushal Page M.D. kendra Dictated: 02/05/2022 [id number] Transcribed: 02/05/2022 [facility] Comment on above: Result Comment: Elec tronically Signed By: Camilo STARK, Kushal Galarza\.br\Date and Time Signed: 02/05/22 13:41 EDT Patient Education - Texton 0 02-05-2022 Patient Education - Text [place], [place] CARDIOVASCULAR DISCHARGE INSTRUCTIONS Diet: ? Resume [...] you are interested in smoking cessation, contact [facility] at [phone], ext. [phone]. ? In the event you are unable to reach your physician, please call [facility] at [phone] and the flatbed press operator will assist you. Seek Immediate Medical Care for: ? Bleeding: Apply continuous pressure to the site and Call 911. ? Should the arm or leg become cold, numb, blue or white call your physician immediately. ? Signs of infection are redness, warmth, swelling, increased tenderness, colored drainage, fever or chills ? Chest pain ? Normal [facility] Coding Summary.on 02-03-2022 Coding Summary. [id number] Gh 0bWw+PGhlYWQ+PV2ZOXUiB 65giFRorF5PJ5iDDG1OGTJ NMYNBHR9KCP8ccDT2ZQplY 2VybiAv GwkfgBVtGI64KUw1RDQ7tF wlGFltiN6yxMRaQ0n0BlLy MH68vA34SIyjHIAkLrD1Yx ZpbjsgbWFy D2stFeJubFKdQia+PHRhYm xlIHdpZHRoPScxMDAlJyBz xLohBR0cOi4nINXfJTRdkS xhcHNlOiBj d3abHACgFMxoAV6hxTmkW5 SijKE6UXCdc0i3Je06rEA+ COPhMYO0qIwsALaoe922Av Myy5qpBXQ8 qIOrEKzsYKU5L64ex3O2ZQ EqFJVyGVT6pJI3pA0eoFup clzuA1FguYMrGkX6QII5bU OooM7xzHht wydnjD5mKbu+Z07TNN1SFB JQIR0DJvd8Q0VoOhrcsIS+ HZ96MOIyYC20vESlmIXjo8 ddjGc8WlJo YZGjXCW7gPxxWMgpp1MmGL ZkS47geMYne7W6INZziUkx qPJiLrWawJF6gR2oTQeuqw gla0jcwmvn Cktmo0qfqd58hY77Z68bIU elYUXmXBN5RQNhDNJccSlg na8elO1rIz4+SEeyb0uzu0 yynAp6IeTp QOQwarFtrAvjUPT1a1VmEe 22T0JysQdkc9SvHwi1mz33 yZGfv7L7lRE9WFttZXZqpQ 8kVWptWgQ5 ZJAbLlEevC07uIRnMOsnTx 7zjNxtqIqzYY9dBKYkbwmp OWExyY9bDZEotCJksNwzIB 4wNTBpbjtm t806BvStXGM6LQNqkKTzI8 SyqY6oXfJwTOSpVLYfV2Oi cNSfMWskT044JLkqJkF7SG QjcpArX2Iq KNLdbGooItZ7o7U5Bj9St9 DmmhfkHIJ6QGoqVUC7WpA6 YtEnJdX1X6GtCmi1EXRfoS lqQO1eF2Qv CSGpopzyrozxlTQ7AOXsUJ CtcN33vRVkUCzkVg9cm1B0 d884AWCtWGZleI54Ms4spF ogMTBwdCBU iJ1mkrddm1hobtfqYxSuMF AqYFd4NMx6HWXkwRyfBbZk JLL6JnE3PMX2yRDniJ6teT ojyorpsU6f Oyc+T29vxE2gRHY6UTH0fm eiDQSqjhUcAJ82YV73G4Zz PjwvdGFibGU+PGRpdiBzdH xcBM5dHfXo l1ktj8BgYQmhW3BlRVRmOJ duYir3NTZxSMU9gZY0dD1i LFUsVPyvh4U7lDF4P6Nmod Tcsp6ww9tt OIAyXBtaU15jaLJgv5Q5VR OxaSF6AEWumQuxKxLswW43 Oyc+QBQwuPhzc4KuPgtzm0 kgq9pfvXq7 SwGeNYSagpTgiQrvSXC8v0 OoJk60S52qWXpzKYZgWHMr KBLpQUNeqIkcxs8unP3aSg 8+PGNvbCB3 yPZ4cQ6lBQAuOtV3WLibH5 71FmZsyDLxUlbsu6xvp5pt xUs8RwLrRAQnmyTbiIgbTV A1e1XpAp68 G57eCCtmXMUnVOScABRpTL AzxGptmh5iiK5nTj4+PC9j p8jwos80lF09qZY+PHRkIH O2uEspEYkt RBOraS5oIVmsVpY6GWRsGh WtzL89cODjQKoxWl3krUty jWwdAQ1hKAFdsuqzf506Ax Pih1tyEFTm aWKtJPczYYS5T45cg1Q4FT YsPQFuJFI7sWP8jV7rlTfk bjogbGVmdDsgdmVydGljYW uuAReeY176 IHRvcDsnPlBhdGllbnQgTm PjLWa7J4NjAaw4QLOpvAoy NA7xhAFlKYmaDw5utPincG ejUP1mFWQy tzfwj337CaPsb7owPJSdxJ LgDEibTCC7G04ot4X3CPPc ZXLeSZC0wKQ4jZ7nrUkwwp ogbGVmdDsg spKmpPpoOIfwRCrkW450PP RvcDsnPkJpcnRoIERhdGU6 IN69YU11fPYje3H4bBR3D3 BhZGRpbmct qqpchLD6NKJbWOSmgR52Dk 5hqOajMe2uGMLqVOB7OFBr aVTqW3TbbL5fGvPxDRBuRO FuX9PdhFXa WLnzX274NAohMpW1ZHOhfi RoG9QxUJXaxRbwSpA6i7X3 Su2IN1H3ST26RR92pUSnv6 F3wDE0R0Rs CCEjlydhezgspEB1WYPmWR SpcP96Zy5beNcmXk6wSWCw ZDK5WNHnlFBzU0WciU7wNu AjMDAwMDAw Q9SmkWDkNIbiI315RIjmZp I0KCSktvEbR8QkWQTphAqy ViM9l7L3Lx9DZZh3XW96CY 01zKXwt0R7 mHX2L0VbLZWgtcgvovsmzZ Z8GQXaMKWobI20Rt4alYib Ov4wQNSiDZU3RXEeuGUcL7 EprF7mQzJy ITNgBSChL4OqgTQwTTvnA8 12EIihVfQ5EMWddsFtD9Ew MMJyiHjmZtM3t2V9Mb3RJO LzJP66DJI8 jZE9GI46BU05P5JnDurjmC FibGU+PHRhYmxlIHdpZHRo ZAuxVVEaJgKjzQfpGA7uCr 9yZGVyLWNv oQngtYYcOcDhk2bhJXNgJY avKI6pzGgnQ0CjrUW6JFFl c8p5Nj21E68cQ7WnsQM+PG ViyIX5iJA7 sC3rRdHxQdJ4VKslK676Ip BalIHeMynqx4wqi1sfuOk5 GgS9HGSifrHdiRjeHZE5l8 MuKw80N55g IHdpZHRoPSIxNSUiIHZhbG lfpz9ytI9uEz1+PGNvbCB3 cDT8wW2sKtXcTzT0MUyxQ2 49InRvcCIv Yyuxa9ycc3bzeHb6ZsLaXP DzneUjtWvhMBL2g6ZePf57 F0JcjWttw5BwQxi2sf17xH Kzb5M1bFK6 M2RePVOxjsesgAKglOleTX 2xHHAtmypuVSNjmU2cUNYd F5k8FuBnDdE0USqsY3Sais M3KXCjaOKu NWpuDTZ9I61zu6C8KRIzQI AiCQL2iAH5uQ3fjXgxaesc bGVmdDsgdmVydGljYWwtYW uvV777GSMg eUhcZMStvE0wOCIsfQKjtT vwYT6aXQGygmnfJdWSWfDY ZlcpAKZXPHSVYjWYBN18AL 68gNLic4E1 uJD9E6NxKMPhxkwndrlelR B6ZCXhGMNdjT15mEIyNTom Dn8cx3A8w573HPVhBEZxdH 45Bj4amIpf RTDukEXNdK6akxukn9xild vhJmKaKBFqRVb3GXg8XNXg nLthWlJpKCO2AbG6ASI6vV YwlV8tkQfr ytablX1ySmv+MDUvMTEvMT a8QKpgrUP+WCYuSTG5aGby OZceCVKhmX2hAQEaD7q8Lc IzToZ1OWss P8UtSONloilfZo49kX1hBh HmNeY9TYhaY4TujwT2DJTu fUAtNKzzMCR0K13gt3C2ZM MwMDAwMDA7 zJC4bJ9uvUyvbzqqhYYfxX cminDynZezFJktNEhoI481 KKKeiEbfIsN6GXveQGEjJX 50OV61rZKo p8F0rLU1N4RoVBJzmxgfqt pxdXF0FSTaKIPzoR78jRWk INpeHf4tp3G8d879XXWsFC MsvN37Tw1p qLmhEHJlnSMRbY5nbeogc5 vvmzfuMrNhOVQqEPk1FGm8 BYAbaWuzEcKgAMY4MwZ2TF T5qAHycF1z xZteolblrE9sKyv+TWFsZT wvdGQ+RRMdQBP9tTrjQRwr CTDyeJ2xPTGjI2q9GoZzDt I6EKfrS7Ny AUFbzyprOm37hV2qNjYdHp L1WCozB4RjbiL2QMBnaJWz RUhkZFK2P77bd4P5OTYvYY TnAUQ7fTJ5 rT0lbDeedcnkjWLrrQjvnn IltHhuNKfhGTafW879SIQe gUrhZr36uEViwVbowvX9N7 RkPjwvdHI+ AD99WXLnBN34uOXzlFMwz5 uuwOj0IbPzSYNsBNS7dQdj DZqjd2KkJAFfH51rzWXmm1 W8BPPogWuh jWFnJjSrcVD2zK1rYNkkek gpa8pqszfeHfund4suqq16 tX17U23fMNzrSWWiLRQiOA UiIHZhbGln wo3nvM7jUr8+OKKpvZC2sL W6yZ0bWyOdQkL8TXilN861 IuYgaBVfUvqzr6qdf5pmuR v6WpPkHFOf itVzrQwaCUT6l4MwDm73C9 9sIHdpZHRoPSIyMCUiIHZh uZgrat2reZ4hEu7+PC9jb2 byzw43sK03 dHI+QTDvUKT3uTdgWNolDT FbbN4kJIneQxA6RUBzQrEz oE87aUVdZLkzUo8opHuipM dyTH6wRVAv qzvtg620QqClr3sjRLNpbE GgHOloDCX9E33zb6O8VGFj TGXhAVT3iGJ5pN8ajUwwfz ogbGVmdDsg qzEkaCmtKEwoCBtjR006OD RhqCuaZpEuiSOtH6hzvoRX BL1zSqoatWB+CBLyGJN1kV xlPSdwYWRk bI7oSKWuF5c1GxJjBeZ3BJ btP9GdmuH3VWSmoHWnMMWk jDWWyE7ldlvbh2aaydyyNa AwMDAwMDt0 VQm3SEElbAlzBdHdYUD6Cz Y7ICU6hZLnfX1tgXnnwrxx lB5iBrc+RklOOjwvdGQ+PH MiHSM0rDiu HJnuUKGecA4rBIMwO9v5Av VaBbU3GEbjR7XmayH7VZDk nFYsHDJvoGCTlS2axzkgb3 xvcjogIzAw SNSgFIn3DGa3NRCkbWpgVf ElMLM8TcT7NJZ0iFNhqY8w mMxaqatzxG1eDhp+TVJOOj wvdGQ+PHRk KMG5mWdpRCucAAIddQ4iVT CcA0u3ChHvNsV6FRtuA7Sb egP9YFOlfLRyCTBwqCSHqX 4hqacxr9ze akmpQkTzLSUbWMp2NQx3UC VsyEuyFzPrJJH0EcY8YLQ7 nAAyrH8ojNjmuzrenA4jFh c+FWT1WFG5 DJ23EF46D6XxFpughACypH U+PHRhYmxlIHdpZHRoPScx MBIiDnNgnIoqMU9mZt3sFX VyLWNvbGxh cHNl (more content not included)... Normal [facility] Outside Recordson 01-29-2022 Outside Records [id number] [facility] Auto Diffon 01-28-2022 Basophils/100 WBC (Bld) 1.0 % Normal 0.0-2.[address] [facility] Comment on above: Order Comment: Order Added by Discern Expert. Performed By: #### 2 649551, 7299165, 8862453, [id number] ####[address] [place] [address] Basophils/Leukocytes Auto (Bld) [Pure # fraction] 0.0 E9/L Normal 0.0-0.[address] [facility] Comment on above: Order Comment: Order Added by Discern Expert. Performed By: #### 2 468633, 2665683, 1337629, [id number] ####[address] [place] [address] Eosinophils/100 WBC (Bld) 3.9 % Normal 0.0-8.[address] [facility] Comment on above: Order Comment: Order Added by Discern Expert. Performed By: #### 2 988298, 0511974, 7621377, [id number] ####[address] [place] [address] Eosinophils/Leukocyte s Auto (Bld) [Pure # fraction] 0.2 E9/L Normal 0.0-0.[address] [facility] Comment on above: Order Comment: Order Added by Discern Expert. Performed By: #### 2 407104, 5460338, 2255555, [id number] ####[address] [place] [address] Lymphocytes/100 WBC (Bld) 27.4 % Normal 14.0-50.[address] [facility] Comment on above: Order Comment: Order Added by Discern Expert. Performed By: #### 2 743458, 4052097, 4937297, 37957006 ####[address] [place] [address] Lymphocytes/Leukocyte s Auto (Bld) [Pure # fraction] 1.3 E9/L Normal 1.0-4.[address] [facility] Comment on above: Order Comment: Order Added by Discern Expert. Performed By: #### 2 395757, 8591828, 2877104, 98448896 ####[address] [address] Monocytes/100 WBC (Bld) 8.1 % Normal 4.0-14.[address] [facility] Comment on above: Order Comment: Order Added by Discern Expert. Performed By: #### 2 016699, 6970977, 8682937, 17125017 ####[address] [address] Monocytes/Leukocytes Auto (Bld) [Pure # fraction] 0.4 E9/L Normal 0.2-1.[address] [facility] Comment on above: Order Comment: Order Added by Discern Expert. Performed By: #### 2 458816, 9728535, 6562894, 07904972 ####[address] [address] Neutrophils/100 WBC (Bld) 59.6 % Normal 36.0-75.[address] [facility] Comment on above: Order Comment: Order Added by Discern Expert. Performed By: #### 2 712696, 4610998, 4523762, 17168129 ####[address] [address] Neutrophils/Leukocyte s Auto (Bld) [Pure # fraction] 2.9 E9/L Normal 2.0-7.[address] [facility] Comment on above: Order Comment: Order Added by Discern Expert. Performed By: #### 2 788297, 9686382, 1564170, 59297221 ####[address] [address] BMPon 01-28-2022 Anion gap [Moles/Vol] 15 mmol/L Normal 6-16 [facility] Comment on above: Performed By: #### 2 367100, 7034899, 6940914, 01530802 ####[facility] [address] [place] [address] Calcium [Mass/Vol] 9.2 mg/dL Normal 8.9-11.[address] [facility] Comment on above: Performed By: #### 2 599341, 2482869, 6755875, 87242951 ####[facility] [address] [place] [address] Chloride [Moles/Vol] 100 mmol/L Low 101-111 [facility] Comment on above: Performed By: #### 2 057355, 3764395, 3693879, 64806398 ####[facility] [address] [place] [address] CO2 [Moles/Vol] 24 mmol/L Normal 21-31 [facility] Comment on above: Performed By: #### 2 036838, 9219710, 3597143, 87086041 ####[facility] [address] [place] [address] Creatinine [Mass/Vol] 0.8 mg/dL Normal 0.5-1.3 [facility] Comment on above: Performed By: #### 2 681779, 6538729, 4540262, 33461145 ####[facility] [address] [place] [address] Glucose [Mass/Vol] 260 mg/dL High 55-[address] [facility] Comment on above: Result Comment: If t his glucose result represents a fasting glucose, interpretation should refer to the following reference range: 55-99 mg/dL Performed By: #### 2 471289, 1665504, 6304596, 26493314 ####[facility] [address] [place] [address] Potassium [Moles/Vol] 4.4 mmol/L Normal 3.5-5.3 [facility] Comment on above: Performed By: #### 2 187832, 2479625, 1681650, 98409735 ####[facility] [address] [place] [address] Sodium [Moles/Vol] 135 mmol/L Normal 135-[address] [facility] Comment on above: Performed By: #### 2 420023, 9270968, 7267622, 95135479 ####[facility] [address] [place] [address] Urea nitrogen [Mass/Vol] 13 mg/dL Normal 5-[address] [facility] Comment on above: Performed By: #### 2 570209, 4784345, 6539714, 65147184 ####[address] [place] [address] Urea nitrogen/Creatinine [Mass ratio] 16 No Units Normal 10-[address] [facility] Comment on above: Performed By: #### 2 097750, 5382212, 0662265, 06326313 ####[facility] [address] [place] [address] CBC w/ Auto Diffon Erythrocyte distribution width (RBC) [Ratio] 13.9 % Normal 10.9-14.[address] [facility] Comment on above: Performed By: #### 2 632991, 9359165, 9064533, 03536003 ####[address] [place] [address] Hematocrit (Bld) [Volume fraction] 39.6 % Normal 37.7-49.[address] [facility] Comment on above: Performed By: #### 2 872656, 9975343, 9783423, 45701340 ####[facility] [address] [place] [address] Hemoglobin (Bld) [Mass/Vol] 13.5 g/dL Normal 13.5-17.[address] [facility] Comment on above: Performed By: #### 2 611664, 8091890, 1451119, 44601972 ####[address] [place] [address] MCH (RBC) [Entitic mass] 30.7 pg Normal 27.0-34.[address] [facility] Comment on above: Performed By: #### 2 926491, 3940020, 8709040, 98139570 ####[address] [place] [address] MCHC (RBC) [Mass/Vol] 34.2 g/dL Normal 31.4-36.0 [facility] Comment on above: Performed By: #### 2 135146, 0254692, 5194198, 66060112 ####[address] MCV (RBC) [Entitic vol] 89.7 fL Normal 80.0-100.[address] [facility] Comment on above: Performed By: #### 2 510585, 8092360, 5057283, 15516618 ####[address] Platelet mean volume (Bld) [Entitic vol] 8.9 fL Normal 6.4-10.[address] [facility] Comment on above: Performed By: #### 2 022511, 3158411, 6784080, 22406844 ####[address] [address] Platelets (Bld) [#/Vol] 153.0 E9/L Normal 150.0-500.[address] [facility] Comment on above: Performed By: #### 2 122911, 5815346, 1047211, 68758666 ####[address] [address] RBC (Bld) [#/Vol] 4.4 E12/L Normal 4.3-5.[address] [facility] Comment on above: Performed By: #### 2 887044, 2643449, 0428190, 82815605 ####[address] [address] WBC corrected for nucl RBC Auto (Bld) [#/Vol] 4.9 E9/L Normal 4.0-11.[address] [facility] Comment on above: Performed By: #### 2 166993, 7152650, 4477318, 18224071 ####[facility] [address] [place] [address] CHEMISTRYOrdered By: SYSTEM SYSTEM on 01-28-2022 Anion gap [Moles/Vol] 15 mmol/L Normal 6 - 16 mEq/L F [facility] Remisol Calcium [Mass/Vol] 9.2 [...] rate/Area] mL/min/1.73 m2 Normal >=59mL/min/1. 73 m2 [facility] Chem S GFR/1.73 sq M.predicted among non-blacks MDRD (S/P/Bld) [Vol rate/Area] mL/min/1.73 m2 Normal >=59mL/min/1. 73 m2 [facility] Chem S Glucose [...] [facility] Coding Summary.on 01-28-2022 Coding Summary. [id number] Gh 0bWw+PGhlYWQ+VP6ELSAsW 13qcECpaI2YM9uKBR1DNZE MZTTVXN6BZO1rdMR4YBwwS 2VybiAv StbmiQKjAP84ESv5IMO3mY qhGTbwtX7cmUOiK6x0QjHk KS38cK75BNzsNCVmYhT9Cq ZpbjsgbWFy B5glVaTpuCEcYgb+PHRhYm xlIHdpZHRoPScxMDAlJyBz nZbkRQ6yGq6cIPZuNZOomL xhcHNlOiBj y6seWYKtVRupAC6ijHetG4 CboOU1CDFge6i0Gb68eYT+ ISIzYNS9oMzuTWdiv230Iv Jty2nyTGU2 sIYvTNetLSN1Y96xy8I1AH MqOOMpEYF2yHR0xV7rfUyz vdnpO7SnsOLjYnP4QNT7bE NznJ8slFwr ucjmeR4yIos+X27LTI9JWS QCMZ2GEki3R9NcCjpllMN+ DH96DJBrGO17zAUbxCQrr2 bprHu7EwVm HDVqZKR9wIfgYFhtw9SuZY LgA32fiNCka2I8IOErhTiz qABsJwWfoEM6dM6mDKyjws yae2cgoyxb Htmpe3ibpq96bC79A20ySQ ezTIXhLBI2LISkQIJaqEjx ht8iwN7tVi9+ZXoqt9hpx6 eciEj0MfTh ERWhwrHmkCdjGNE2x8FoTb 68F3QhiMzbn0PqYwy2rk43 uVBnh5V7zLR3YKxaTWHkbQ 3iMZnqXjL9 VAXiJvLfoN50jGTzXVkeXi 5vtKaugKrfHY6hYJXgraea CVTsyO6nXOOlnMSkrQnbXG 4wNTBpbjtm s217BuQbTCR0NKHtpXTtX1 ZknZ1dKeKxFHTdIQRrN0Rd gWNuWPjpJ814XLasWgQ2HQ IephMsZ5Nn LVYmfChpTpL1t0O3Lg8Tq7 GloazgRMR0YOtcXVD0CyAn OoXrGtE6I2XtYyn4PBNalO qkPW8uY2Eb MJEcoxllfqwitTW3JWDkYU CvsJ38sBZiZKvqOq9yh5B7 d490DDXsNFCdxA82It4ruD ogMTBwdCBU pF1fjvkzu2rudlxxPoPyDK YfANx8KOt9LMTfgBblBeLs OAQ6BxE4UVK5aCBdhW6vtL qscqimwI9t Oyc+B05rvX3dQJD1QGD2ci amUEEpwrZfBT31SV13G9Rd PjwvdGFibGU+PGRpdiBzdH ygRL3wVvGp c6ihi9TmNLvbS6JwCEPsTJ mxVey6XFHjSLP6lRQ1uC3f EQNaHQrws6U0rMF3D4Yxye Bkvg6fv5ag LAGtBWqnT86gvKMpi9Y5CA EdnVL4VGLroNlgNmLroE75 Oyc+NWAlcUbdn7ZhKqruy5 taz2vooBc9 RgCzAWFbaoLozEogUHL5j7 SwYu36F53kDRzmBRCbVKEs IEGmSKSyzYrwvw9knT9iZo 8+PGNvbCB3 fDR0gV4sJODvWkO9OCuxB0 59BuUidTLcQbkzc4opf6wf rFm8MdUsDTWjvxYnjYchRW N7f1PoWt12 E36yQBerFTTdINDlGKRjGV MuyHtdxd2txW0dBf6+PC9j b3fuvu67xY91vBY+PHRkIH D1zKtrOMpf MJMlmJ0kWYotDsI7RVRuZr SkaP16kDSuAIelSb6dcPri cZdgMC9oMMAshpmfx245Fl Jfw0vaJRCc eUBmVHccYXE4N96gf3K0XT JkMJOpDNG1xFM5mT6txBcf bjogbGVmdDsgdmVydGljYW slJGptU344 IHRvcDsnPlBhdGllbnQgTm UkWBk9O0SxYzk9KMPznXcx OP3fyCTbGIitEy3jqZlzaI uuBA2fKRDu hzcnj740SkEwn3peWKUjeF AvEDwiXNT7C55yj3B2MUXo YEIlABU1eQP4uG5viFascq ogbGVmdDsg znIuaFgrITxgHHxfV082VJ RvcDsnPkJpcnRoIERhdGU6 KN57XR04rQIhx4Q8yME2D1 BhZGRpbmct hcrvkKD4TMCaPFBpuD68Zz 4xzJaeTz5jTIRrROU2JSOd pYVbE0KoiD1pYhDbYJAbNC TmE1TylOZl GExkL277JVtcYpM2DHVnyf CaU9BmIDDtrOugLlZ6y0R5 Rq3GP1F3JK32FE79rQLlq7 J6zKV8K3Dr JHWwilbqbqhkgFW4YOYeBU TyuN45Sl0xqBbvIr3uEIHt PDB5IFIzjRIsY1DgmE4zRi AjMDAwMDAw L6CvrQYdMXcfR209ADqmLk M3HYGhzmRfQ2DfMBBcoBsu NzT2j0G5Bg7TQAp2DS14NV 70tUUse3T3 cDU7T8AmXCPrzcqkgtpshV M1TCMrSGXqqB01Ra2lbQhu Ov5rLJNyGYW2OXYhcLDxP7 NinP2mHyMd UVQkNOOnQ0AbqZQgSRxpT8 67JCrtPnV9ZSJdfmJeF1Fz OPXilOzrTeN2o3L8Ob1ESV FpDB61BEJ4 pUI9MX35IU72O3WeCjaqlG FibGU+PHRhYmxlIHdpZHRo VYhvFGBcFgPtoCvoPE0yTv 9yZGVyLWNv hEureFLqErEpn3fyQIPfLU xnIY5lbWsvU5RqvVT6UTLh j1f0Qc32H68lX3DhjTQ+PG WroMH7qKK7 nU7hLcKbYlA5HZzmW327Nr LutVFkZdgfd3ctk1uqiFv5 MwN7NNFhazWkzMeaTAG7v9 TuHp50Q51m IHdpZHRoPSIxNSUiIHZhbG gixp7vpZ7kYl4+PGNvbCB3 yWY1jU2wVzQaMpX2YUtjX1 49InRvcCIv Quugy5bba7dudXk4XxRnDQ QfdqWxiQseWKH8r1QqTo69 T3NivHrnd1BiGmt5bj10sB Zjl6S2dLS7 R2BeCMJegvkftCPolEbgZP 3fIZXhacytRTBgfW7sXYQl A0h7VjOdNzQ4HJtsJ0Jvvb V3ZFEhyBPy MSneNNW5V79ln4U2ONDeQN RwMIP0lGT1kD0juMbdhzpr bGVmdDsgdmVydGljYWwtYW ynK955ABOi oGxeUTNgvT6yJDQzrPGarL poQB6sZUVywsxeXyCFGhPO PrfdIKQVFZOBNcGKPF53NJ 45qGLor6F8 mWD4U0PlMVOkjljnfpujlZ I7BENgCRIzvS12bUVyIHxr Fk2ju1I5a738JZSqDZXtsH 04Uj9emQel QUEbaFGIkX1zkshmi3aupm mmDyVaAOGdGOs1PPc7HXUp fLvvOkIaINH1OpS8SHL9fG GoeX4qoTef bwrflP8oJlx+MDUvMTEvMT g7EPidzEL+FWTqVEV6uLrp STpvCWJnbC1jRJLxI8s6Bt ZiGkV9VKhr N1JbMZMrrvkxSd76jV0lBn VeOoV8AGuyK1UgfuY8VWZl kXJeAUeaYGI8A92kt6B5LT MwMDAwMDA7 fJN1rT4hpPrauakjrZJqfJ upqgZelSqhFMtdFXctP673 AEKckTliMmH6HXvjLYHjOX 54LK69vNUw o1F8fVN4U5WwQYFqepxebz ckiHY6MVXfMSRxlE32jWIl UWdgWo0xv7I1j325NHZvCK MvcR74Vu1h nMsiJCQvnCKVfE5blolzg7 gbbjfjMoTrLCSfDTq7PUz0 LAVdrZgyPyMxKOU4IdL3DO R7xLDbvV8k vXxjxvcefZ6xLmt+TWFsZT wvdGQ+PHXyWXO0gSchWFdr HWNvoE5qWPAjC9r3YrSlBk T6WBafH1Yp MUQxbgmmYr11oU5gQnKvEv V0CCizY8EguoX6WZWtcYLd RVhbCPG9T03xk2W2CJYfCQ TmMCI6xOI1 bQ9bkFiqnxpezENlzBfded AdyFrhXLkjLPriR786THHk dKulFc50zFYznQpqpdW1W1 RkPjwvdHI+ CT60PEZiBJ82gPGthVTlw1 honMh7YuSqMJZlCAD7hYbh GPoju6IwRCEzA10zeECva2 F4QVBibGlx lXKrWpYaqCT6yY0uKEllei hzi9uygdwaAorxs4riqq42 jR36Q66xFQmmCZCtJPOzGO UiIHZhbGln wx5glF1kEl2+VVAhjIX0mJ U1uL6yMuEwKdX1ZHpoR900 UcSjrWEyPsqlv5zej0aigQ t6YrBvIBEm alEwdXbsQJQ2j9JrIi89Q5 9sIHdpZHRoPSIyMCUiIHZh iMsjeb6lhE9mNp1+PC9jb2 dyno27qF99 dHI+SUVeBPR3mQxiLDvhUJ WclA3eVJrkFxD9IWXaFjWu kA02xJObRSxdYn2smVxasO yeDI8tGSLq ijdix082KvZnm8akOXPwfJ MqUYrsGBN7T15av1G0EFHw LKVlTTM5gPA5oA3twXcenb ogbGVmdDsg xnXoiBnfJJlnWMnvO371XT XrbGboWyKccJBjQ0fecyFK DQ2jQcwrdVO+OBOvUOA7aA xlPSdwYWRk dB3tCHRpS8b5SgXcXzB2MB acN5XkjgA3XECymJQkNDKs wHXMpE6jhiywy0pgxokxPr AwMDAwMDt0 YQb6ZHSnsFsaWmJcIMD5Qf X8HIU1zZIozP5ybYpbaldw zR2xYhi+RklOOjwvdGQ+PH TbSBC2tEpj LVetFHCxtG9yCMOkC2o6Vr JcHnZ2QWxfD9AtfwN5UGQy kAVmNPKhtNRCuD9aovucp3 xvcjogIzAw RTBnGCg2LMc8EDVcrDioEg HaKUC0ChZ4LAV9uFCtiJ1n zZtesdnvqN6uRck+TVJOOj wvdGQ+PHRk GUK3qSptYFxbMIEihK4oTZ NrD7k6DoIjKyG5EVlmW6Dc bkM4SFWxlSLyOUOruPLMcU 9marida3ku xpjhPpHkYDWdGSc1WDu7DJ MjlUgtUhVzRYN2KwD0ETI7 zQGvcC9bjDtmpbfclC1oTe c+GAZ0UZS3 NR40TQ84I6KlTgttyRTosQ U+PHRhYmxlIHdpZHRoPScx YRIkAnBxkMkwCF0wRc9zBU VyLWNvbGxh cHNl (more content not included)... Normal [facility] Consent for Treatmenton 12-31 Consent for Treatment [id number]#1.0 0CD:[address] [facility] HEMATOLOGYOrdered By: SYSTEM SYSTEM on 01-28-2022 [...] MDRD (S/P/Bld) [Vol rate/Area] mL/min/{1.73_m2} Normal >=[address] [facility] Comment on above: Order Comment: Order added by Discern Expert. Result Comment: eGFR is race adjusted. AA=. Performed By: #### 2 [id number] ####[id number] [place] [address] GFR/1.73 sq M.predicted among non-blacks MDRD (S/P/Bld) [Vol rate/Area] mL/min/{1.73_m2} Normal >=[address] [facility] Comment on above: Order Comment: Order added by Discern Expert. Result Comment: [facility] neil kidney disease could be indicated at eGFR's of less than 60 mL/min/1.73m2. Kidney failure is indicated at less than 15 mL/min/1.73m2. Performed By: #### 2 [id number], [id number], [id number] ####[facility] [address] [place] [address] Consent for Procedure/Surger yon 01-27-2022 Consent for Procedure/Surgery [id number]#1.0 0CD:127 [facility] Progress Note-Physicianon Progress Note-Physician [id number]#1.0 0CD:127 [facility] Pre-Certification Formon Pre-Certification Form [id number]#1.0 0CD:127 [facility] Coding Summary.on 01-23-2022 Coding Summary. CD:[id number] Gh 0bWw+PGhlYWQ+FH0CCTTpL 63seBAqmM2PC2dNNP9GWOT PTXIERP8IST5syQK6TVpnN 2VybiAv PfgqfDFnNN80CId3UMC8uC zhRPculL2wkQSfB1c0AbAb BX58tT78FFaaYPHiSjI8Ud ZpbjsgbWFy D9xeSoFcxROmNhk+PHRhYm xlIHdpZHRoPScxMDAlJyBz dSapKG1wQo2pWYDhEHDzjQ xhcHNlOiBj k0htLOHiCOdyQV0yiAqhD0 IliYE6WKKnw5m2Il56pIF+ MGNhFLF2rFniLOmny690My Mxm0loSHU0 lRMbCTxoAVM3F00ba0F0PE MjBDZmGSD0mMG8mE9qsDxy yddqH7VdqOQySyL4PFQ4nD ZauE9jwOgx caifjM8bJiw+C14HRG2NSJ VKZU0XBkw6G4VtBarcbKD+ NW80JNLeNA52fSXaeOIsx6 esjGt3PcIc NTTnYPN5fUgoRNkbn8GwJW RyQ20huJInd5C6UDHafLcb rKUqFtFdlCW5xJ7uQKuupi ngb7xwhxok Phkkg7hvgs82lX39M55rEE yyHQJnFXB8AAUtRVHynWot tn9zrG4tBs2+PTrmq0tug1 mzvKq2NhAi MCYlnoDgqCcdSVQ8m0NqVw 17C8QlaCqcn2WzDyt4mt23 iXMkb2C6tPN2QZnlLHQlsB 4eHLatInZ4 QGTqZcNlfV77tPFdAZxfId 9hzVmcoDtdBX3rUYYmkowm DCYcjS4eBQIqlZLmzPaiGN 4wNTBpbjtm v255OiFkSGU1KGOtaFKkJ2 IhfC8uYuRqUXUkIVMdN2Js yEYtKCxsA495ODloUjN5SX RvvzKeF1Mb VRMncNjqQpT0n6H2Cq5Dp4 OwpdehGBU4CBokKDR1FjV2 BuXiQpJ9A2QvPer4XJTzeX yzAV0gY1Le ZXNzhenpxeggoCW1EOKkPV PiyN02jKNzXAixUv9lk0H9 m376TTCjJFTobB49Nu7wnM ogMTBwdCBU dZ1zwascv2lbsrrsAwYsPD YyORj9UMp3CZStuQesOuLp XSB4NaV8EEO5rCLkxC2pvP pefqelsN6x Oyc+X47hcL7oVUW8PRI9pa jxTVLnnzSbLJ54NV23X7Cb PjwvdGFibGU+PGRpdiBzdH scAK1pPlPl d9wdn9HcYZroT5ApTWGpIL nhFkb5FSCgUOX3gEY5eQ9d JMNwZCipq8Y9vCE4P2Nsqk Aubp9bz4xs ARNuBGsoR29diPJrg7D7EI FacKN5LVGjiXkpBtMyhD07 Oyc+GJMkqJdgo8ZlIvpjj5 wgc1asdPw6 XvLeOBQyhnEoeAyiGVQ7t8 HaFa75M10bATtiXVJtCBDd CHErIGKqpGlqts9yoM4xJk 8+PGNvbCB3 hIT9sF4eSEHnXdC2PVlkG0 66IuFnsSDfSocrt6zga1or qYl2DsAgHWUfejBvtVxsKV Z4p6DeLb57 U21vOCorNHPfAVNfSLUrKZ HxwKfqfi4ibT0rYm9+PC9j x5pliv49rX91cHC+PHRkIH Y7nUnoOHfs SIXcgK6kAXysCaF9XONdTf OejM11qUSqACvhOi7wsGpu tXyrDR0wDXKijazik852Rk Chl8tfAMRc zJUpODfvACC3H64vw7X1SO LfJFThYQY6vNQ3oY1fyWbv bjogbGVmdDsgdmVydGljYW gpQNwmP756 IHRvcDsnPlBhdGllbnQgTm BcWHg6I1QaDxf4FWZviMiv EF7gxSEjUEguBa1gsXxwnC saYY8jWJSw lqhkn605SvVxq9iuWGDhzN XiTTetXEJ0X54px3F3YLAy RLOtOJF6gVI8oX9kdKfxxl ogbGVmdDsg vbZwdMvqNJkhRNdmM537XD RvcDsnPkJpcnRoIERhdGU6 YG38DK72cLPsk1B3cAL0B8 BhZGRpbmct gqapgEE6EQKiTLQgfQ58Ef 9brMfaEk8eODVlJDF4PCAk dJOnR8LvhB4iEyJsQPIpLM LoC5LkzIUc WGtfC856CQzrCbV2WZZusr AjO0UiIHSnsZjeLsN4c8V9 Ap7YW9X1LX58QB03aRSfl1 G4fAG8P3Za MZZlrxzdbxswuNJ7OBAaUA SmaA54Ap3dlCsdQt8vUSUz MJO7ZFGvjPDiC9MfjU6oQa AjMDAwMDAw T1QskADbCHooP359YPqpEw S6RQLvtzZoU8SgHWWayIpu ThW8w6C2Ps2ZJUa0LE02CH 30cAKnb6W2 jIG2H3QtAQKwhhjglsvraX B0LAFrUMDoeX67Iv2xiAlc La5zABFuOPE2PSDhbKKdY1 IjaQ8pQqAu NJKeVQWjI0PehXDvOSmyA2 14ZHdgObA2RCDtmvFvR0Xf GZDyuPyvElL0r0B1Ar9PXW BfBF63QTY7 [id number] FibGU+PHRhYmxlIHdpZHRo SExnLPAbQzIllOzaSI2zUi 9yZGVyLWNv dPzvoSBxOkIoi0nmGZQsSY rxDL7bpZjzD7QuiKQ5URGa h5v2Cx85E74bD1AqlMP+PG OnjAD2nJC1 sF9tMeOoEfI9NBtjR133Xb XgoDPiFtymt7mgo0aqpKq4 ZfT2JNYuvgHwcIneKZZ0d2 PjPm51K50m IHdpZHRoPSIxNSUiIHZhbG rlus6ekJ3yYz8+PGNvbCB3 xLM7uJ1vNuRqUiA7DBxoF6 49InRvcCIv Lhegz2ilp5adkSp2OeZjQO WdlxQvnOucLGC9t6EyKy96 L4BmsPagh1DsHaw8ce64gF Heb9W9oUG8 Q2CkZLKlwctovAGukYrzLQ 6gWOTgyrpnYICczK1oSKRb W5p1CkRhRiX9QGngP8Gglz C5DYQixDGl RSnlODB3K58gs2W7SNWuDF LgAUB3sHM7mX8kvYspiwaj bGVmdDsgdmVydGljYWwtYW klS159ATQo iJsgNFIbzC3wKNUyeXUbaT uqXF7zIAVnxmckOjHVUqYP MflvWQPQTUCRElBVNE89UU 74jNAes1G6 gEP6Y5GjKTTkvladygofuZ C9XCKpCRJiaD55hJMvKUhk Hj5co1U4o272ROBfEAXdcG 23Xj4pgGtw NLToySSHnI7rfivfr4thxg wfDiMwKBLbKAg0XMr4EULh qPzcJtKiEFQ9ZyU3OAS3mZ JahK6huXos sdoulK8uAtk+MDUvMTEvMT z4IShaaGS+PXTjLDM8qBbu QIvrOGIdtD8pDJOeW2d6Pf TfRiE1AKnv Z2YzGACydpmeRv31cC3sKz CqJyO7YQatW7KcguG3OHKd tTFaERfgZZM6W60wh9D4PU MwMDAwMDA7 iEJ4pE0yoKjnxrytqFVzmR hndvQzhXuiQJyzWEynT189 LWDuzGbbDdU5HCafYAFbZP 09OV48oCMy n5K3iNM7U1BmPKHkzoaxti nvxWK6ROYqFDTseC59cBCs NEkjXt3jx7O0f956PVIdFN MuaR29Qu8l fVieMBDydXZLbZ9huxgoz7 hmrrtxKqBmATJmCUi3JWq7 JYDdaUzlQaTzJKB6HcA7CP U4eVNyzH1a qOpjsiatfH4bNwg+TWFsZT wvdGQ+UBNsJPE9fZdtNRfp JAQeyU1fEHKlH3f8VgBtAy Q4VUqvO8Yt ZVYgnsdeEg78fF4nJxKfQh S1FOyeR6SuaxU2JDGnxOHa KLvuOCG6Y64vo5U4MVMjBE PzODT5wNP4 qA3rjIajfbufjDBjqIrgmj MnmVvaUNwlZOwvL875RNRz hAlbMxWiR1CeocmbXfjifV Q+CA39mv81 R8TpRzitGga8CQZkANA9aA T3dW4oYCZyKAmkl5Q6dKT5 P9SaqrAyyd2fm4xoDUNdRD gbJ23nfCFp o1N6BSFgyOR1JHHcjJxcZt JkzU79Dua+ZZUojYkqd3Fw Vhkdy7eno6uliMo4CyQaSY IgdmFsaWdu OQL2s8LsJs09I35xJPhyAS CfWBMmOKEuIKIfgVwhrk6q bI8jTu9+ISTnwDS8rSG6tR 0aEyDsLhD7 QGtwL529FpCgiERgXwnij7 vhl4fhaLe8SoFuWTGysdZt eRdaDNH5r0SrMo89R5IfgT xfp5DlErl8 jf87dNKwv0A5vZL4T0AhIA JtsyaorUWwnEugWF5zOXUz ydvpDULydU2jLNLqU7j8Xg TrRqF9UMzi Q9NsaeG2YKGlhCJuADAzbO TBbQ0anuuei7njkvaeIqYo XYVaWLi9NSf0TILfvDvzZh ArTSP9WxT7 GOF5cTUlsE1baRbhaefibM 9wOyc+IGf3x7gfxUXrGM4d hLW8OM63CF37rAKtq3W2fI C8Z4BdTQCy gusoqjrodJP0PMZyDCDfnK 47Lu8etZyySk8hZPEqZEF4 OEUhcSBmZ5YjcY8uVeLqHQ DlXNMeU5Cc wXDeZUkhS836HEvgQpW0DP XnamMaA8YeJDCrpWqdZqY0 h0F7Jx2FIQ59CO98OK62nG Vsu6B4qAU1 Y1MtTUOxtpciczqxeOW7CJ ZhGYWmeT25Qu3xkQwnCi6p OOKbZZL3LEOvlSLeZ3WwzD 9yOiAjMDAw UJVzK8TahQHoUVpqQ889DR irFfN9BGTgxyHtG4GwELTs gYzyXhG8d5X2Ef8CFb46EN 98KO04aOKd t7G6pJB0D4MvSDSgajsrty exqHB8PZWiBAQbrD03Yk5c zTzgCt2qXRLbPEN8LFDsmG VeZ2UgeC4y LwGtRDDlRNKpM9GskTXgUH uyD843MLfhJvV2XZRjwxCr Y4BpPLRdyUqlZsC3e1F9Wk 0IHVdtavh0 R7PpHhduvVS+CL53TGDwLQ 42gSVijBRcd0fgmNv8HrBd PRPfYNT5aEbkHYlsn1YeQI BqH60gwUIo c2U6 (more content not included)... Normal [facility] Consent for Treatmenton 12-30 Consent for Treatment [id number] [id number]#1.0 0CD:[address] [facility] Heart and Vascular Office/Cl inic Noteon [...] in office. He had echocardiogram performed at [facility], which was normal. He was ordered [...] protocol. [1] patient was then referred to [place] and was placed on sotalol followed by [...] with speaking. 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 He is taking and tolerating his medicines well. He has had no exertional chest pain symptoms prior to his COVID infection. 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 His daughter works here at [facility] and was present for his visit. Patient is now her (more content not included)... Normal [facility] Comment on above: Result Comment: Elec tronically Signed By: Camilo STARK, Kushal Galarza\.rita\Date and Time Signed: 01/23/22 14:23 EDT Stress EKG Tracingson 2021 Stress EKG Tracings [id number] 05 [id number]#1. 00CD:[address] [facility] NM Myocardial Spect Part 2on 01-22-2022 [...] Stress Dose (mCi Tc99M Cardiolite): 29.[address] [facility] Consent for Treatmenton 12-30 Consent for Treatment [id number] 2079 [id number]#1.0 0CD:[address] [facility] CT CHEST WO CONon 01-19-2022 CT [...] by: LORENA ANTONIO Date: 2022-01-19 17:17 Normal [facility] HEMOGLOBINon 01-19-2022 Hemoglobin (Bld) [Mass/Vol] 13.2 g/dL Critically low 14.0-18.0 [facility] Comment on above: Performed By: #### H GB #### [facility] [address] [place] [address] Dr. Maria T Canela Pre-Certification Formon Pre-Certification Form [id number]#1. 00CD:127 [facility] TSH - Thyroid Stimulating Ho mckenna, Serumon 12-31-2021 TSH Qn 1.65 m[IU]/L See Below [facility] 320 DO Work Phone: Comment on above: Reference Range: 0.4 4 - 3.98 TSH testing is performed using different testing methodology at [facility] than at other [facility]. Direct result comparisons should only be made within the same method. Tobacco Screening.on 022 Adult depression screening assessment No [facility] DO Work Phone: Fall risk assessment a) No falls within the last year [facility] 320 DO Work Phone: Tobacco use status CPHS b) No [facility] 320 DO Work Phone: Outside Recordson 12-30-2021 Outside Records [id number] 20 [id number]#1.0 0CD:127 [facility] Coding Summary.on 12-24-2021 Coding Summary. CD:[id number] Gh 0bWw+PGhlYWQ+WX4BBTBjV 44cvRDvdD1SH5qTQB5RUDZ QRWXNNF8HMU1wwRD2RYyhN 2VybiAv VhteiQTxFB29NBd0UOK1uR psIDckkO1itLHwB3u5QhJi ZO18pY86ZRkiHGChKaQ2Sj ZpbjsgbWFy P3glIiVoqYLcLsi+PHRhYm xlIHdpZHRoPScxMDAlJyBz lVilKI1iRj0jWTPsAWMdvP xhcHNlOiBj g8maXDZxOWwcER0svSvqO1 NbaQR4UVWlx3k7Rt22zOB+ VAUbRXE5eYmhUItmi519Oq Lap9roKRX4 cRMrBKfdJFK2S33us8O0EK NnUQHhXKW0zIM8rD4pqApe uhtoO7MbkNWxMrH3MGW5gH DdaX8scGjq gzrwmI2wTeb+M63GRW1NVN ZDHQ6SZav9A8AkVyhcmCP+ VR50SUDpPS48nMSfuTOuq9 jwbOn1FeQb SOSnDIJ6fKgfZRxpy1DbFF QrJ68aePMzf8U2AXBhsOgk tIAyNzDfbRH6wC5pRNyugd yul1snnucc Sijoq8uodq03nX67K77fUT twATCqWLE5YQIpWAPtvLok ka2iiB5vXf6+EEnxl6cpr3 lylDu4UkMd RCWuywYyuImbIGJ6b8HcDn 95X9GgpFdbv6KaGup8xd32 lSOkh5X8yEK3OTcpCCKcvK 9eJYrrZvT5 WPXzBdKjwB95oMQhBIllOi 2gwTglwVvhZD7tXFBeqhwc PLInyC5mWWQyvLScrIadUF 4wNTBpbjtm l011JdMjPHZ2YHJzfLWoS9 WesJ0sUlWtRMOgSIOiN4Mn rNDvHOehK414QEccBtZ9OB CyniKxO7Tw YZSvfXjcAkJ6y7W4Qc8Dl1 VieyxcDXY4JXtlBCJ8UxY7 GdLfFmJ6C3LaGec8KWGnsK epSO8sN3Pc NBNkzgfgkropnLO3ZLVaTZ BeeK17sOLvSVcpTd0ut5V5 p107DPUgPDPmiR76Nq1meD ogMTBwdCBU pN3zwbgsa0rggzckJwOkFD OrHTh8XMv4KWYdhHkuLkIk KVJ4KwC2MEB8aTQlcX0usG yohhvbzZ3n Oyc+W78tqC0qFMT2OFP3wi hhBGUtnsVyYG04UX95R4Ha PjwvdGFibGU+PGRpdiBzdH lxVZ0pBrJh t9hmj1FfKWmlV1UbQOQpEV nhEss5MEMoOUH8rIB6mQ9z TFBaBVhne9Y9fRM4G5Bxak Chuz4ab5ty LKSnDPpoU17xqTFja4A9UY QuuPJ2SEByfJcpOmLerY51 Oyc+GJBboFgvb6IdKfqch0 nim5llmLq8 LnGpQKWmhjKihFjvNEZ4p9 FeZy06O45iNCgsLCEaAPTx PXOiIVXhzVglzl6gkN7fAr 8+PGNvbCB3 bIW3yT1sFAOiLfV0ORriF6 08PqHmaDOyPofea1pyd0dn cVt7MqVnEDVskyTqaTsvVV U8x6JvCa02 G38nLWvrYGFcWFQpRMYwNU EgdLsltj4ynD5bZf6+PC9j s9qklf08nP09eGK+PHRkIH U7uCpgFQao QJMibX0tTWppTaB6WNGaNy ClkQ30yQMhHXcfPt8prOft mWjxVH4eFKTbecern701Gw Hwn5jiLGIx bCYoJOtxDGC1B88qc0F9SJ GfZMLaKAJ2lJB8bB8cqFdh bjogbGVmdDsgdmVydGljYW odITmgQ313 IHRvcDsnPlBhdGllbnQgTm SgXSl3R6UvPsx0FZQyxKmw RN4kqNKcHDajUy3wbOnbtL mzUX2oNUEr fmqdb438FbJqw9qhJRQpuI UnVSrkIGJ9T18pm0O6KUTo VDYlNXE7nMW7eV4kqRphrs ogbGVmdDsg vrFjkGnaVLlwQPukF291XJ RvcDsnPkJpcnRoIERhdGU6 CA08NL96dDUbe9X0yNS0P3 BhZGRpbmct ogsmpZO9SQThIVEvbD36Fs 4ecJbvNf5eWUVwMYL3SYPj kILlS6QtkO3hSbOsJIFsNS IvN3JsdBUg BWxcC601VIwsBgD2VSOfly XoB3ToNZRzzUwlQhA3g7L7 Hp1MC7U4SK80SU20rHNjk5 X1tSV3T2Lf XFNgnjdgzlvbqYA4BIYkRJ OvkI42Yp9huYusFd3lZHGn OFJ0IXZscGYjZ4QlqB6lXu AjMDAwMDAw U6EobMQdQOgyO791PSvrFt X0ARZzujQdJ1ChTFSvyYkc HdC6z8N4Ba6DTHy1PR39PV 92bTRha5O4 xKI8O4HcMDKkuyrucvnadS H6OKCwCXAdyT30Qo9ywHpd Np4vFSLgJUY6NRRviLKmS8 SbmV5nGkRd FKUbDLWyD2KxpURfLNjaO7 26TTdkOmH0NLDfatCrB2Co RCXabIulNqI1d4F5Xv1TMI CoWQ35PZF3 lYA3VY47DI98S4XeUdcnwU FibGU+PHRhYmxlIHdpZHRo JIyzYYJoBqCzqBowMC8kDb 9yZGVyLWNv kBpyfMPlVnDls0jxICLuOA bvUR9hlUtnG6UsaJP2YVRl d9t8Lb02U89jW6AopFV+PG BydTC8fER2 jA8cTmOyXoE5QLiaO197Mz HqqTHzUnpuy8muq3fagPt6 EaS8ETQjghQxeUvvGEM0t4 RfZk08J54d IHdpZHRoPSIxNSUiIHZhbG ujdc7oeH2eSj5+PGNvbCB3 zNC9pI5gAzFkZfJ5OXahA9 49InRvcCIv Jdjzu6zmm2sucYg8JqUgHX XqbdQwtOkuKDU3o0UiFu80 K5KgpYjku7JdOww0yp66bQ Lnt4F2dWR3 Q0XjRGFhijkkjRDscJdrVQ 6oPBWzfucaCJSymF4nBVTq C7x5KeAqFjS5DLskH2Bylp Y4SYKypAHw MRatRXY7M61ce0L4ZJXdRP YbHUW7yBW4kG1zfMossotr bGVmdDsgdmVydGljYWwtYW pdU222NRBa kJdrPVCmsO0vDYMjnATiiI yiXT3iERAptbncRtABMiJR YjylVFINEAXYKrOAXQ64HW 55cAUqh7D9 kLY7M4KjWESlphbuyjuplF J8TSLiZTOajQ33bKNuAOdi Ix0iu9M5n703QWVxDPStdU 23Wu6pdQhy RKLdcXICpJ6jlqlzv8xdxi jbSlOfMXQzXLx4CLw1BRAc fCibTiMeSHA9EbJ4PNQ1wD TzsO1wcSub asjsgZ7wJbw+MDUvMTEvMT i2POgjpHH+KAVsSRJ0ePzi BSmfGBJsyO2xWRVkG2f7Ez UyKgS8REhl F7UpNSKbboynVv26sZ0pAc ZnImI1KRjyQ0AvsaC5ACNt bOByNFqwNDP0T51aq7L7SX MwMDAwMDA7 wXQ1mN7mgFyoviphoNQrwZ ogouHdxAwlGMwrTWzuW963 GYQjtBeoRkY7QKafSLNxTP 99JR90xKFs s2M6rWI7G2EqKUDhhmfnke jotGL4IIGkYUWwpJ77eZFs DUzqMv5bm8E6i623GHXaKT XawA91Rg0m yNdvYWYsuQJDlC4yuqmhh9 tjwzodBlPvEBHuPXx6IPs2 WZGyzOxeYxGdWAY6HuB0WK G7pSAerP4a iAgauleadU8pHqk+TWFsZT wvdGQ+FFKuPHD5lCoqTQls OUCmzA8mMAWvN4q7FyJlMq C1CDzmX5Vi BPYtjthxGi08eT1kXpBbTz J3IFxmP6MetlT6HOTccYFs EXhqYNN3U27yr9C6BODmQU AqCDG2gFV9 sE7uxDtuzjovpDQmtSaczl RqfIxlWTjlASibE628CKAg aIixNp31bGZopJykzaG2H3 RkPjwvdHI+ LW15QUXfVX55jLKxdURno6 fcvNd9QeDcGIPwLKT6mBfi CGqsn2SzTBSfN21diZKlx1 A4IRFsjNga pQSgJpDmpYO9kT4oIEsfhr ter4ashdccRwlcy8zpsz27 kC98D88fGHitECTlFISeYS UiIHZhbGln xm1rnT7jPw0+BIHdfKN0nE N1fZ2bAuEtHsY1ERkkF497 AbCcuPYwBfjpr5reo4ngnL e7HzFeNODr gmIldEziLHH7h4IrFl60B2 9sIHdpZHRoPSIyMCUiIHZh eIigox9cqW3mUb8+PC9jb2 whfk42cX18 dHI+ZJEnKXG8fCrcNQkcVM WifZ2nDUqfDpS9VCWwPoRc mB94tCTiOAbhRe8ttOpmtB rzIG0fQWVr qwqdk557RtSov0zrUJFkxA IgBCkqOOY6I68mq1Z4YRWy NAGyAIY3ePN4yD8lsBevgf ogbGVmdDsg dyMmhFeeAAmyJLrkI844EI CrdGwjEcJmtZNpX6dvnpGZ ZC0lEkohbSC+GGMyNMW4eG xlPSdwYWRk jX7wDTCyY6o8CpVkRvG2WU dwT7TexsK0AIZbmSPpCSJk tEJPzN5xxttyz5sytdshKr AwMDAwMDt0 ZPi1NUHzmBhyFjBeTUC1Ba N7IXP1dIUmgY5ofZslxryd yL6dSae+RklOOjwvdGQ+PH HmNKT9mLfl LPtbCMEgnP6bJOBtY4y9Dw LdSkJ7YKkvG9CpgjM2IROa mWMsAPEhvKUPnT3xgiyfo7 xvcjogIzAw MCXySQe7BFu7ZUDttNfoSs XrRQQ7HiU5OYJ4kAFxdN3j hZhyrgmtsV6wAgm+TVJOOj wvdGQ+PHRk FDL0xPiqKZegVXNewB1xNW XrP4f5HuJpKoN6LTscC2Fr vmV8ZBFivADnVCYgkEPVdV 9dhhebt9rm nvhnXzWuCHBsRVg4HZg7OO MteYljRoHhICS7KqO4HBU8 tIFzyC1ubJknwffvyB0jTp c+IPL4AFY1 CL70VB23Y1NaRaghxEUmfM U+PHRhYmxlIHdpZHRoPScx WBEqYwGeoMjqIM3pTq8sXT VyLWNvbGxh cHNl (more content not included)... Normal [facility] Consent for Treatmenton Consent for Treatment [id number]#1.0 0CD:[address] [facility] Heart and Vascular Office/Cl inic Noteon [...] in office. He had echocardiogram performed at [facility], which was normal. He was ordered [...] with speaking. 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 He is taking and tolerating his medicines well. He has had no exertional chest pain symptoms prior to his COVID infection. 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 His daughter works here at [facility] and was present for his visit. In [...] perfusion R (more content not included)... Normal [facility] Comment on above: Result Comment: Elec tronically Signed By: Camilo STARK, Kushal Galarza\.rita\Date and Time Signed: 12/05/21 15:17 EDT Progress Note-Physicianon Progress Note-Physician [id number]#1. 00CD:[address] [facility] Tobacco Screening.on 021 Fall risk assessment b) One or more fall s in the last year [facility] DO Work Phone: Tobacco use status CP b) No [facility] DO Work Phone: Tobacco Screening. Yes [facility] Work Phone: COVID-19 Lab Corpon 10-05-19 21 SARS-CoV-2 (COVID-19) RNA PATTIE+probe Ql (Unsp spec) Not detected Normal Not Detected [facility] Comment on above: Order Comment: Healt hcare Worker?: N Result Comment: This nucleic acid amplification test was developed and its performance characteristics determined by [employer]. Nucleic acid amplification tests include RT- PCR [...] detected) result in this assay. PERFORMED BY: [facility] [address] [place] [address] PATHOLOGIST ALLOY WEIGHER SAMEER HARDIN M.D. Performed By: #### C ORONAVIRUS #### [facility] , Vital Signs Date Time Vital Sign Value Performing Clinician Facility 11-10-2023 10:44-0400 Body height 177.[address] 11-10-2023 10:44-0400 Body mass index (BMI) [Ratio] 52.8 kg/m2 [address] 11-10-2023 10:44-0400 Body weight 166.[address] 10-04-2023 13:56-0400 Body height 177.8 cm Margret Stevens MD Work Phone: [phone] [place] [address] 10-04-2023 13:56-0400 Body mass index (BMI) [Ratio] 52.8 kg/m2 Margret Stevens MD Work Phone: [phone])[phone] [place] [address] 10-04-2023 13:56-0400 Body weight 166.92 kg Margret Stevens MD Work Phone: [phone])[phone] [address] 10-04-2023 13:56-0400 Diastolic blood pressure 64 mm[Hg] Margret Stevens MD Work Phone: 0(830)[phone] [place] [address] 10-04-2023 13:56-0400 Heart rate 61 /min Margret Stevens MD Work Phone: [phone](864)[phone] [place] [address] 10-04-2023 13:56-0400 Systolic blood pressure 128 mm[Hg] Margret Stevens MD Work Phone: 4(173)[phone] [address] 07-19-2023 15:30-0500 Body height 177.8 cm Margret Stevens MD Work Phone: 7(612)[phone] [place] [address] 07-19-2023 15:30-0500 Body mass index (BMI) [Ratio] 52.37 kg/m2 Margret Stevens MD Work Phone: [phone])[phone] [place] [address] 07-19-2023 15:30-0500 Body weight 165.56 kg Margret Stevens MD Work Phone: 9([phone])[phone] [place] [address] 07-19-2023 15:30-0500 Diastolic blood pressure 88 mm[Hg] Margret Stevens MD Work Phone: [facility] 07-19-2023 15:30-0500 Heart rate 65 /min Margret Stevens MD Work Phone: [facility] 07-19-2023 15:30-0500 Systolic blood pressure 138 mm[Hg] Margret Stevens MD Work Phone: [facility] 05-07-2023 11:45-0500 Body height 175.26 cm Kelly Lucinda Other [facility] Other 05-07-2023 11:45-0500 Body mass index (BMI) [Ratio] 53.3 kg/m2 Kelly Lucinda Other [facility] Other 05-07-2023 11:45-0500 Body temperature 97.2 [degF] Kelly Lucinda Other [facility] Other 05-07-2023 11:45-0500 Body weight 163.75 kg Kelly Lucinda Other [facility] Other 05-07-2023 11:45-0500 Diastolic blood pressure 93 mm[Hg] Kelly Lucinda Other [facility] Other 05-07-2023 11:45-0500 Respiratory rate 18 /min Kelly Lucinda Other [facility] Other 05-07-2023 11:45-0500 SaO2% (BldA) [Mass fraction] 95 % Kelly Lucinda Other [facility] Other 05-07-2023 11:45-0500 Systolic blood pressure 159 mm[Hg] Kelly Lucinda Other [facility] Other 03-08-2023 09:30-0400 Body height 175.26 cm Beena Benítez Other [facility] Other 03-08-2023 09:30-0400 Body mass index (BMI) [Ratio] 55.67 kg/m2 Beena Benítez Other [employer] Other 03-08-2023 09:30-0400 Body weight 171.01 kg Beena Benítez Other [facility] Other 03-08-2023 09:30-0400 Diastolic blood pressure 85 mm[Hg] Beena Benítez Other [employer] Other 03-08-2023 09:30-0400 Systolic blood pressure 145 mm[Hg] Beena Benítez Other [employer] Other 02-15-2023 14:33-0400 Body height 177.8 cm Beena Benítez Work Phone: [facility] [employer] [address] DO Work Phone: 02-15-2023 14:33-0400 Body mass index (BMI) [Ratio] 53.38 kg/m2 Beena Benítez Work Phone: [facility] [employer] [address] DO Work Phone: 02-15-2023 14:33-0400 Body surface area Derived from formula 2.72 m2 Beena Benítez Work Phone: [facility] [employer] [address] DO Work Phone: 02-15-2023 14:33-0400 Body weight 168.74 kg Beena Benítez Work Phone: [facility] [facility] DO Work Phone: 02-15-2023 14:33-0400 Diastolic blood pressure 82 mm[Hg] Beena Benítez Work Phone: [facility] 250 DO Work Phone: 02-15-2023 14:33-0400 Heart rate 64 /min Beena Benítez Work Phone: [facility] 250 DO Work Phone: 02-15-2023 14:33-0400 Systolic blood pressure 138 mm[Hg] Beena Benítez Work Phone: [facility] 250 DO Work Phone: 11-23-2022 17:11-0400 Diastolic blood pressure 84 mm[Hg] Beena Benítez Work Phone: [facility] 250 DO Work Phone: 11-23-2022 17:11-0400 Systolic blood pressure 138 mm[Hg] Beena Benítez Work Phone: [facility] 250 DO Work Phone: 11-23-2022 15:32-0400 Body height 177.8 cm Beena Benítez Work Phone: [facility] 250 DO Work Phone: 11-23-2022 15:32-0400 Body mass index (BMI) [Ratio] 53.95 kg/m2 Beena Benítez Work Phone: [facility] 250 DO Work Phone: 11-23-2022 15:32-0400 Body surface area Derived from formula 2.73 m2 Beena Benítez Work Phone: [facility] 250 DO Work Phone: 11-23-2022 15:32-0400 Body weight 170.55 kg Beena Benítez Work Phone: [facility] 250 DO Work Phone: 11-23-2022 15:32-0400 Diastolic blood pressure 90 mm[Hg] Beena Benítez Work Phone: [facility] 250 DO Work Phone: 11-23-2022 15:32-0400 Heart rate 82 /min Beena Benítez Work Phone: [facility] 250 DO Work Phone: 11-23-2022 15:32-0400 Systolic blood pressure 148 mm[Hg] Beena Benítez Work Phone: [facility] 250 DO Work Phone: 10-05-2022 14:45-0400 Body height 177.8 cm Beena Benítez Work Phone: [facility] 250 DO Work Phone: 10-05-2022 14:45-0400 Body mass index (BMI) [Ratio] 53.81 kg/m2 Beena Benítez Work Phone: [facility] 250 DO Work Phone: 10-05-2022 14:45-0400 Body surface area Derived from formula 2.73 m2 Beena Benítez Work Phone: [facility] 250 DO Work Phone: 10-05-2022 14:45-0400 Body weight 170.1 kg Beena Benítez Work Phone: [facility] 250 DO Work Phone: 10-05-2022 14:45-0400 Diastolic blood pressure 84 mm[Hg] Beena Benítez Work Phone: [facility] 250 DO Work Phone: 10-05-2022 14:45-0400 Heart rate 52 /min Beena Benítez Work Phone: [facility] [facility] DO Work Phone: 10-05-2022 14:45-0400 Systolic blood pressure 126 mm[Hg] Beena Benítez Work Phone: [facility] [facility] DO Work Phone: 08-17-2022 15:25-0400 Body height 177.8 cm Beena Benítez Work Phone: [facility] 250 DO Work Phone: 08-17-2022 15:25-0400 Body mass index (BMI) [Ratio] 53.38 kg/m2 Beena Benítez Work Phone: [facility] 250 DO Work Phone: 08-17-2022 15:25-0400 Body surface area Derived from formula 2.72 m2 Beena Benítez Work Phone: [facility] 250 DO Work Phone: 08-17-2022 15:25-0400 Body weight 168.74 kg Beena Benítez Work Phone: [facility] 250 DO Work Phone: 08-17-2022 15:25-0400 Diastolic blood pressure 78 mm[Hg] Beena Benítez Work Phone: [facility] 250 DO Work Phone: 08-17-2022 15:25-0400 Heart rate 66 /min Beena Benítez Work Phone: [facility] 250 DO Work Phone: 08-17-2022 15:25-0400 Systolic blood pressure 124 mm[Hg] Beena Benítez Work Phone: [facility] 250 DO Work Phone: 07-06-2022 15:45-0500 Body height 177.8 cm Beena Benítez Work Phone: [facility] 250 DO Work Phone: 07-06-2022 15:45-0500 Body mass index (BMI) [Ratio] 53.38 kg/m2 Beena Benítez Work Phone: [facility] [employer] 250 DO Work Phone: 07-06-2022 15:45-0500 Body surface area Derived from formula 2.72 m2 Beena Benítez Work Phone: [facility] [employer] 250 DO Work Phone: 07-06-2022 15:45-0500 Body weight 168.74 kg Beena Benítez Work Phone: [facility] [employer] [place] 250 DO Work Phone: 07-06-2022 15:45-0500 Diastolic blood pressure 80 mm[Hg] Beena Benítez Work Phone: [facility] [employer] [place] 250 DO Work Phone: 07-06-2022 15:45-0500 Heart rate 64 /min Beena Benítez Work Phone: [facility] [employer] [place] 250 DO Work Phone: 07-06-2022 15:45-0500 Systolic blood pressure 118 mm[Hg] Beena Benítez Work Phone: [facility] [employer] 250 DO Work Phone: 06-15-2022 11:15-0500 Body height 175.26 cm Beena Benítez Other [facility] [employer] Other 06-15-2022 11:15-0500 Body mass index (BMI) [Ratio] 55.81 kg/m2 Beena Benítez Other [facility] Other 06-15-2022 11:15-0500 Body weight 171.46 kg Beena Benítez Other [facility] Other 06-15-2022 11:15-0500 Diastolic blood pressure 88 mm[Hg] Beena Benítez Other [facility] Other 06-15-2022 11:15-0500 SaO2% (BldA) [Mass fraction] 97 % Beena Benítez Other [facility] Other 06-15-2022 11:15-0500 Systolic blood pressure 130 mm[Hg] Beena Benítez Other [facility] [employer] Other 03-09-2022 11:20-0400 Blood Pressure Location Kushal Page [facility] 03-09-2022 11:20-0400 Diastolic blood pressure 76 mm[Hg] Kushal Page [facility] 03-09-2022 11:20-0400 Heart rate 60 /min Kushal Page [facility] 03-09-2022 11:20-0400 Respiratory rate 18 /min Kushal Page [facility] 03-09-2022 11:20-0400 SaO2% (BldA) [Mass fraction] 98 % Kushal Page [facility] 03-09-2022 11:20-0400 Systolic blood pressure 140 mm[Hg] Kushal Page [facility] 02-05-2022 06:41-0400 Blood Pressure Location Kushal Page [facility] 02-05-2022 06:41-0400 Diastolic blood pressure 82 mm[Hg] Kushal Page [facility] 02-05-2022 06:41-0400 Heart rate 56 /min Kushal Page [facility] 02-05-2022 06:41-0400 Respiratory rate 20 /min Kushal Page [facility] 02-05-2022 06:41-0400 SaO2% (BldA) [Mass fraction] 100 % Kushal Page [facility] 02-05-2022 06:41-0400 Systolic blood pressure 150 mm[Hg] Kushal Page [facility] 01-23-2022 14:04-0400 Blood Pressure Location Kushal Page [facility] 01-23-2022 14:04-0400 Diastolic blood pressure 67 mm[Hg] Kushal Page [facility] 01-23-2022 14:04-0400 Heart rate 70 /min Kushal Page [facility] 01-23-2022 14:04-0400 Respiratory rate 18 /min Kushal Page [facility] 01-23-2022 14:04-0400 SaO2% (BldA) [Mass fraction] 97 % Kusahl Page [facility] 01-23-2022 14:04-0400 Systolic blood pressure 140 mm[Hg] Kushal Page [facility] 12-31-2021 11:54-0400 Body height 177.8 cm Beena Benítez Work Phone: [facility] [employer] DO Work Phone: 12-31-2021 11:54-0400 Body mass index (BMI) [Ratio] 52.95 kg/m2 Beena Benítez Work Phone: [facility] [employer] DO Work Phone: 12-31-2021 11:54-0400 Body surface area Derived from formula 2.71 m2 Beena Benítez Work Phone: [facility] [employer] DO Work Phone: 12-31-2021 11:54-0400 Body weight 167.38 kg Beena Benítez Work Phone: [facility] 320 DO Work Phone: 12-31-2021 11:54-0400 Diastolic blood pressure 84 mm[Hg] Beena Benítez Work Phone: [facility] 320 DO Work Phone: 12-31-2021 11:54-0400 Heart rate 67 /min Beena Benítez Work Phone: [facility] 320 DO Work Phone: 12-31-2021 11:54-0400 Systolic blood pressure 138 mm[Hg] Beena Benítez Work Phone: [facility] 320 DO Work Phone: 12-05-2021 15:01-0400 Blood Pressure Location Kushal Page [facility] 12-05-2021 15:01-0400 Diastolic blood pressure 69 mm[Hg] Kushal Page [facility] 12-05-2021 15:01-0400 Heart rate 70 /min Kushal Page [facility] 12-05-2021 15:01-0400 Respiratory rate 18 /min Kushal Page [facility] 12-05-2021 15:01-0400 SaO2% (BldA) [Mass fraction] 98 % Kushal Page [facility] 12-05-2021 15:01-0400 Systolic blood pressure 118 mm[Hg] Kushal Page [facility] 04-23-2021 16:19-0500 Body height 177.8 cm Beena Benítez Work Phone: [facility] 320 DO Work Phone: 04-23-2021 16:19-0500 Body mass index (BMI) [Ratio] 51.94 kg/m2 Beena Benítez Work Phone: [facility] 320 DO Work Phone: 04-23-2021 16:19-0500 Body surface area Derived from formula 2.69 m2 Beena Benítez Work Phone: [facility] 320 DO Work Phone: 04-23-2021 16:19-0500 Body weight 164.2 kg Beena Benítez Work Phone: [facility] 320 DO Work Phone: 04-23-2021 16:19-0500 Diastolic blood pressure 62 mm[Hg] Beena Benítez Work Phone: [facility] 320 DO Work Phone: 04-23-2021 16:19-0500 Heart rate 65 /min Beena Benítez Work Phone: [facility] 320 DO Work Phone: 04-23-2021 16:19-0500 Systolic blood pressure 108 mm[Hg] Beena Benítez Work Phone: [facility] 320 DO Work Phone: 10-09-2020 14:30-0400 Diastolic blood pressure 66 mm[Hg] Beena Benítez Other Phone: [facility] 10-09-2020 14:30-0400 Heart rate 50 /min Beena Benítez Other Phone: [facility] 10-09-2020 14:30-0400 Systolic blood pressure 133 mm[Hg] Beena Benítez Other Phone: [facility] 10-09-2020 13:00-0400 Body temperature 96.8 [degF] Beena Benítez Other Phone: [facility] 10-09-2020 13:00-0400 Respiratory rate 19 /min Beena Benítez Other Phone: [facility] 10-09-2020 13:00-0400 SaO2% (BldA) [Mass fraction] 98 % Beena Benítez Other Phone: [facility] 10-09-2020 02:15-0400 Body weight 159.4 kg Beena Benítez Other Phone: [facility] Encounters Encounter Date Encounter Type Care Provider Facility Start: 12-15-2023 End: 12-15-2023 ambulatory [facility] Ambulatory Start: 11-10-2023 End: 11-10-2023 Subsequent hospital visit by physician Serina Myers Echo/Vasc Room 2 [facility] Comment on above: SOB (shortness of br eath); Chronic systolic congestive heart failure, NYHA class 2 (Multi); Ischemic cardiomyopathy Start: 11-10-2023 End: 11-10-2023 ambulatory [facility] Start: 10-04-2023 End: 10-04-2023 Office outpatient visit 25 minutes Margret Stevens MD Work Phone: [facility] Comment on above: SOB (shortness of br eath); Edema, unspecified type; Chronic systolic congestive heart failure, NYHA class 2 (Multi); Ischemic cardiomyopathy; Coronary artery disease involving [place] coronary artery of [place] heart without angina pectoris; Paroxysmal atrial fibrillation (Multi); Lower leg edema; High risk medication use; Hypercoagulable state due to paroxysmal atrial fibrillation (Multi); Unspecified atrial fibrillation (Multi); Sleep apnea treated with continuous positive airway pressure (CPAP); Mixed hyperlipidemia; Medication course changed Start: 10-04-2023 End: 10-04-2023 ambulatory [facility] Amb[facility] Start: 07-19-2023 End: 07-19-2023 ambulatory [facility] Start: 07-19-2023 End: 07-19-2023 Office outpatient visit 25 minutes Margret Stevens MD Work Phone: [facility] Comment on above: Paroxysmal atrial fi brillation (CMS/HCC); Coronary artery disease involving [place] coronary artery of [place] heart without angina pectoris; Ischemic cardiomyopathy; Chronic systolic congestive heart failure, NYHA class 2 (CMS/HCC); Hypercoagulable state due to paroxysmal atrial fibrillation (CMS/HCC); Medication course changed; Mixed hyperlipidemia; High risk medication use Start: 05-07-2023 End: 05-07-2023 ambulatory Kelly Lucinda Other [facility] Other Start: 05-07-2023 Office outpatient vi sit 15 minutes Kelly Jane [facility] Start: 05-07-2023 Telephone encounter Beena Benítez [facility] Start: 03-08-2023 End: 03-08-2023 ambulatory Beena Benítez Other [facility] Other Start: 03-08-2023 Office outpatient vi sit 25 minutes Beena Benítez [facility] Start: 02-15-[address] Beena Benítez Facility: Start: 02-03-2023 Rx Renewal Beena Benítez Work Phone: [facility] 250 DO Work Phone: Start: 01-28-2023 End: 01-28-2023 ambulatory Beena Benítez Other [facility] Other Start: 01-28-2023 Telephone encounter Beena Benítez [facility] Start: 12-03-[address] Beena Benítez Facility: Start: 11-30-[address] Beena Benítez Facility: Start: 11-30-2022 Patient encounter procedure Beena Benítez [facility] Phone: [facility] DO Work Phone: Start: 11-23-2022 Office outpatient ne w 45 minutes Beena Benítez Work Phone: [facility] DO Work Phone: Start: 11-23-[address] Margret Newman ty: Start: 10-27-2022 End: 10-28-[address] DOCTOR HOLDEN Facility:H1 Start: 10-12-2022 Telephone encounter Beena echavarria Work Phone: [facility] 250 DO Work Phone: Start: 10-05-2022 Office outpatient vi sit 25 minutes Beena Benítez Work Phone: [facility] 250 DO Work Phone: Start: 10-05-[address] Margret Newman ty: Start: 09-22-2022 Patient encounter procedure Beena Benítez Work Phone: [facility] 250 DO Work Phone: Start: 09-17-2022 Chart Update Beena Benítez Work Phone: [facility] 250 DO Work Phone: Start: 09-17-2022 End: 09-17-2022 ambulatory Beena Benítez Other [facility] Other Start: 09-17-2022 Telephone encounter Beena Benítez [facility] Start: 09-10-[address] Beena Benítez Facility:[id number] Start: 09-08-2022 End: 09-09-2022 Pre-admission assessment Kushal Page [facility] Start: 08-17-2022 Office outpatient vi sit 25 minutes Beena Benítez Work Phone: [facility] 250 DO Work Phone: Start: 08-17-[address] Margret Newman ty: Start: 07-20-2022 End: 07-21-[address] DOCTOR HOLDEN Facility:[facility]1 Start: 07-06-2022 Office outpatient vi sit 25 minutes Beena Benítez Work Phone: [facility] 250 DO Work Phone: Start: 07-06-[address] Margret Newman ty: Start: 06-23-2022 End: 06-23-2022 ambulatory Beena Benítez Other [facility] Other Start: 06-23-2022 Telephone encounter Beena Benítez [facility] Start: 06-15-2022 Office outpatient vi sit 25 minutes Beena Benítez [facility] Start: 06-15-2022 End: 06-16-[address] BEENA BENÍTEZ [facility] Other Start: 06-02-2022 End: 06-02-2022 ambulatory Beena Benítez Other [facility] Other Start: 06-02-2022 Telephone encounter Beena Benítez [facility] Start: 03-09-2022 End: 03-10-2022 ambulatory XXXX NONE Facility:[facility] Start: 03-09-2022 End: 03-09-2022 Patient encounter procedure Kushal Page [facility] Start: 02-05-2022 End: 02-05-2022 ambulatory MD Kushal Page Facility:[facility] Start: 02-05-2022 End: 02-05-2022 Admission to same day surgery center Kushal Page [facility] Start: 01-28-2022 End: 01-29-2022 ambulatory MD Kushal Page Facility:[facility] Start: 01-28-2022 End: 01-28-2022 Patient encounter procedure Kushal Page [facility] Start: 01-23-2022 End: 01-24-2022 ambulatory MD Kushal Page Facility:[facility] Start: 01-23-2022 End: 01-23-2022 Patient encounter procedure Kushal Page [facility] Start: 01-21-2022 End: 04-23-2022 ambulatory MD Kushal Page Facility:[facility] Start: 01-21-2022 End: 04-22-2022 Recurring Kushal Page [facility] Start: 01-19-2022 Rx Renewal Beena E Jeyson Work Phone: [facility] 250 DO Work Phone: Start: 01-19-2022 End: 01-20-2022 ambulatory NONE LISTED REQUEST Facility: Start: 01-01-2022 Chart Update Beena Benítez Work Phone: [facility] 320 DO Work Phone: Start: 12-31-2021 Patient encounter procedure Beena Benítez Work Phone: [facility] 320 DO Work Phone: Start: 12-31-2021 Current tobacco non- user cad cap copd pv dm Beena Benítez Work Phone: [facility] 320 DO Work Phone: Start: 12-05-2021 End: 12-06-2021 ambulatory MD Kushal Page Facility:[facility] Start: 12-05-2021 End: 12-05-2021 Patient encounter procedure Kushal Page [facility] Start: 07-07-2021 Rx Renewal Beena Benítez Work Phone: [facility] 250 DO Work Phone: Start: 04-23-2021 Office outpatient vi sit 25 minutes Beena Benítez Work Phone: [facility] 320 DO Work Phone: Start: 10-07-2020 End: 10-09-2020 Evaluation and management of inpatient Adam Romano 8 Cardio ICU 816 01 Patient encounter status Beena Benítez Work Phone: [facility] 320 DO Work Phone: Procedures Date Procedure Procedure Detail Performing Clinician Start: 10-04-2023 ECG 12-LEAD MARGRET MOH AN Start: 10-04-2023 FOLLOW UP IN CARDIOLOGY MARGRET STEVENS Start: 10-04-2023 Ecg routine ecg w/le ast 12 lds w/i&r Margret Stevens MD Work Phone: Start: 07-19-2023 Basic metabolic 2000 panel - Serum or Plasma [facility] Start: 07-19-2023 CBC panel - Blood by Automated count MARGRET STEVENS Start: 07-19-2023 Comprehensive metabo lic 2000 panel - Serum or Plasma MARGRETJossie STEVENS Start: 07-19-2023 Lipid panel [facility] Start: 07-19-2023 ECG 12-LEAD MARGRET [facility] Start: 07-19-2023 Ecg routine ecg w/le [...] surgery 3 Kushal Page Comment on above: 1988 Cardiac catheterization Juan Albarado Jeyson Work Phone: Cardioversion Beena Albarado Jeyson Work Phone: Excision of mass of neck Spencer Page Hernia repair Beena Albarado Benítez Work Phone: Herniated structure (morphologic abnormality) Kushal Page Comment on above: 2009 Total colonoscopy Beena echavarria Work Phone: Plan of Treatment Date Care Activity Detail Author Start: 03-30-2031 DTaP/Tdap/Td Vaccines (2 - Tdap) DTaP/Tdap/Td Vaccines (2 - Tdap) [facility] Start: 07-17-2024 End: 07-17-2024 Patient encounter procedure [facility] Start: 06-19-2024 End: 06-19-2024 Patient encounter procedure 06/19/2024 10:45 AM EST Appointment [facility] [address] [address] [facility] Start: 06-18-2024 End: 07-19-2024 CBC panel - Blood by Automated count CBC Lab Routine Paroxysmal atrial fibrillation (CMS/HCC) Hypercoagulable state due to paroxysmal atrial fibrillation (CMS/HCC) Expected: 06/18/2024 (Approximate), Expires: 07/19/2024 [facility] Work Phone: Comment on above: Expected: 06/18/2024 (Approximate), Expi res: 07/19/2024 Start: 06-18-2024 End: 07-19-2024 Comprehensive metabolic 2000 panel - Serum or Plasma Comprehensive Metabolic Panel Lab Routine Paroxysmal atrial fibrillation (CMS/HCC) Coronary artery disease involving [place] coronary artery of [place] heart without angina pectoris Ischemic cardiomyopathy Chronic systolic congestive heart failure, NYHA class 2 (CMS/HCC) Expected: 06/18/2024 (Approximate), Expires: 07/19/2024 [facility] Work Phone: Comment on above: Expected: 06/18/2024 (Approximate), Expi res: 07/19/2024 Start: 06-18-2024 End: 07-19-2024 Lipid 1996 panel - Serum or Plasma Lipid Panel Lab Routine Coronary artery disease involving [place] coronary artery of [place] heart without angina pectoris Mixed hyperlipidemia Expected: 06/18/2024 (Approximate), Expires: 07/19/2024 [facility] Work Phone: Comment on above: Expected: 06/18/2024 (Approximate), Expi res: 07/19/2024 Start: 01-30-2024 Influenza vaccination Influenza Vaccine (Season Ended) [facility] Start: 12-15-2023 End: 12-15-2023 Patient encounter procedure 12/15/2023 3:00 PM EDT Office Visit [facility] [address] [facility] [address] [place] [address] Leonel Billy, MOVEMENT ASSEMBLER-MOLDER SETTER [address] [facility] [address] [place] [address] [facility] Start: 11-15-2023 End: 11-15-2023 Patient encounter procedure 11/15/2023 3:30 PM EDT Office Visit [address] [place] [address] Margret Stevens MD [address] [place] [address] [address] [place] [address] [facility] Start: 11-10-2023 End: 11-10-2023 Patient encounter procedure 11/10/2023 10:45 AM EDT Appointment [facility] [address] [facility] [address] [place] [address] [facility] Start: 10-11-2023 End: 10-03-2024 Basic metabolic 2000 panel - Serum or Plasma Basic Metabolic Panel Lab Routine SOB (shortness of breath) Edema, unspecified type Chronic systolic congestive heart failure, NYHA class 2 (Multi) Ischemic cardiomyopathy Medication course changed Expected: 10/11/2023 (Approximate), Expires: 10/03/2024 [facility] Work Phone: Comment on above: Expected: 10/11/2023 (Approximate), Expi res: 10/03/2024 Start: 10-04-2023 End: 10-03-2025 US Heart Transthoracic Transthoracic Echo Complete Echocardiography Routine SOB (shortness of breath) Chronic systolic congestive heart failure, NYHA class 2 (Multi) Ischemic cardiomyopathy Expected: 10/04/2023 (Approximate), Expires: 10/03/2025 [facility] Service Area Work Phone: Comment on above: Expected: 10/04/2023 (Approximate), Expi res: 10/03/2025 Start: 08-02-2023 End: 07-19-2024 Basic metabolic 2000 panel - Serum or Plasma Basic Metabolic Panel Lab Routine Ischemic cardiomyopathy Chronic systolic congestive heart failure, NYHA class 2 (CMS/HCC) Expected: 08/02/2023 (Approximate), Expires: 07/19/2024 [facility] Service Area Work Phone: Comment on above: Expected: 08/02/2023 (Approximate), Expi res: 07/19/2024 Start: 07-19-2023 End: 07-19-2025 US Heart Transthoracic Transthoracic Echo Complete Echocardiography Routine Ischemic cardiomyopathy Chronic systolic congestive heart failure, NYHA class 2 (CMS/HCC) Expected: 07/19/2023 (Approximate), Expires: 07/19/2025 [facility] Work Phone: Comment on above: Expected: 07/19/2023 (Approximate), Expi res: 07/19/2025 Start: 02-15-2023 FUV, Provider: Margret Stevens, Status: Pen, Time: 12:30 PM FUV, Provider: Margret Stevens, Status: Pen, [facility]: 12[facility] [address] Work Phone: Start: 01-29-2023 COVID-19 Vaccine ( season) COVID-19 Vaccine ( season) [facility] Start: 01-29-2023 Influenza vaccination Influenza Vaccine (#1) [facility] Start: 12-02-2022 HOLTER 48, Provider: VIN IZAGUIRRE MERRY GO ROUND ATTENDANT 1,[id number], Status: Pen, Time: 9:00 AM HOLTER 48, Provider: VIN STEINY03 MERRY GO ROUND ATTENDANT 1,[id number], Status: Pen, Time: 9:[address] [facility] 250 DO Work Phone: Start: 11-23-2022 FUV, Provider: Margret Stevens, Status: Pen, Time: 3:00 PM FUV, Provider: Margret Stevens, Status: Pen, Time: 3:00 PM -[facility] 250 DO Work Phone: Start: 10-05-2022 FUV, Provider: Margret Stevens, Status: Pen, Time: 2:30 PM FUV, Provider: Margret Stevens, Status: Pen, Time: 2:30 PM -[facility] 250 DO Work Phone: Start: 09-10-2022 STRESS HERSON, Provider: CARLA HHVI NUCLEAR 01,[id number], Status: Pen, Time: 9:00 AM STRESS HERSON, Provider: CARAL HHVI NUCLEAR 01,[id number], Status: Pen, Time: 9:00 AM -[facility] 250 DO Work Phone: Start: 08-17-2022 FUV, Provider: Margret Stevens, Status: Pen, Time: 3:15 PM FUV, Provider: Margret Stevens, Status: Pen, Time: 3:[address] [facility] 250 DO Work Phone: Start: 10-29-2021 FUV, Provider: Adam Leo, Status: Pen, Time: 3:45 PM FUV, Provider: Adam Leo, Status: Pen, Time: 3:45 PM [facility] 320 DO Work Phone: Start: 10-09-2021 Creatinine measurement Creatinine Level [facility] Start: 10-09-2021 Diabetes mellitus screening Diabetes Screening [facility] Start: 10-09-2021 Potassium measurement Potassium Level [facility] Start: 10-09-2020 No post-op complications No post-op complications Date: 09-Oct-2020 [facility] Start: 10-09-2020 Prolonged QT interval Prolonged QT interval Date: 09-Oct-2020 [facility] Start: 2020 Arrhythmia Arrhythmia Date: 08-Oct-2020 [facility] Start: 10-07-2020 End: 2021 [facility] Comment on above: IF patient HAS [...] 60+ years (1 - 1-dose 60+ series) [facility] Start: 10-09-2007 Zoster Vaccines (1 of 2) Zoster Vaccines (1 of 2) [facility] Start: 10-09-1975 Hepatitis C screening Hepatitis C Screening [facility] Start: 10-09-1963 Pneumococcal Vaccine: 65+ Years (1 - PCV) Pneumococcal Vaccine: 65+ Years (1 - PCV) [facility] Start: 10-09-1963 Pneumococcal Vaccine: 65+ Years (1 of 2 - PCV) Pneumococcal Vaccine: 65+ Years (1 of 2 - PCV) [facility] Start: 1958 MMR Vaccines (1 of 1 - Standard series) MMR Vaccines (1 of 1 - Standard series) [facility] Start: 1957 Annual wellness visit Medicare Initial Physical (IPPE) [facility] Start: 1957 Echocardiography Echocardiogram [facility] Start: 1957 Lipid panel Lipid Panel [facility] Start: 1957 Medicare Annual Wellness Visit Medicare Annual Wellness Visit (AWV) [facility] Start: 1957 Screening for malignant neoplasm of colon [facility] End: 11-10-2023 [facility] Service Area Work Phone: Comment on above: Once for 1 Occurrences starting 11/10/19 24 until 11/10/2023 Immunizations Immunization Date Immunization Notes Care Provider Nikole turner 03-30-2021 diphtheria, tetanus toxoids and pertussis vaccine Beena Benítez Work Phone: [facility] 320 DO Work Phone: 09-30-2020 Pfizer-BioNTech COVI D-19 Vacc 30 MCG/0.3ML Intramuscular Suspension Beena Benítez Work Phone: [facility] 320 DO Work Phone: 09-10-2020 Pfizer-BioNTech COVI D-19 Vacc 30 MCG/0.3ML Intramuscular Suspension Beena Benítez Work Phone: [facility] 320 DO Work Phone: Payers Date Payer Category Payer Private Health Insurance 2021 Medicare AETNA MEDICARE A ETNA MEDICARE VALUE PLAN [id number] 2021-Present P Isa Cunningham [id number] [place] [address] [id number] 1959 Medicare [id number] 1957 Unknown [id number] 2.16.840.1.408178.3.579.2.1 1957 Unknown [id number] 2.16.840.1.325924.3.579.2.7 1957 Unknown [id number] 2.16.840.1.804173.3.579.2.7 1957 Unknown [id number] 2.16.840.1.997157.3.579.2.7 27 1957 Unknown [id number] 2.16.840.1.232451.3.579.2.7 27 1957 Unknown [id number] 2.16.840.1.217087.3.579.2.7 27 1957 Unknown [id number] 2.16.840.1.997088.3.579.2.7 27 1957 Unknown [id number] 2.16.840.1.150850.3.579.2.5 93 1957 Unknown [id number] 2.16.840.1.898421.3.579.2.5 93 1957 Unknown [id number] 2.16.840.1.850628.3.579.2.5 93 1957 Unknown [id number] 2.16.840.1.854088.3.579.2.5 93 1957 Unknown [id number] 2.16.840.1.856495.3.579.2.3 56 1957 Unknown [id number] 2.16.840.1.084415.3.579.2.3 56 1957 Unknown [id number] 2.16.840.1.214900.3.579.2.3 56 1957 Unknown [id number] 2.16.840.1.415024.3.579.2.3 56 1957 Unknown [id number] 2.16.840.1.986994.3.579.2.3 56 1957 Unknown [id number] 2.16.840.1.872979.3.579.2.3 56 1957 Unknown [id number] 2.16.840.1.788821.3.579.2.3 56 1957 Unknown [id number] 2.16.840.1.810509.3.579.2.1 246 1957 Unknown [id number] 2.16.840.1.660523.3.579.2.1 244 1957 Unknown [id number] 2.16.840.1.426077.3.579.2.1 244 1957 Unknown [id number] 2.16.840.1.648068.3.579.2.1 244 Unknown Social History Date Type Detail Facility [facility] Tobacco smoking consumption unknown [facility] Start: 07-19-2023 End: 10-04-2023 Never smoker Never smoker [place] [address] DO Work Phone: Comment on above: 2-3 cups of tea dudley y, 1 soda; Start: 05-30-2020 End: 07-19-2023 Tobacco smoking status Never smoked tobacco (finding) [facility] Start: 07-19-2023 End: 10-04-2023 Sex Assigned At Male [facility] Start: 07-19-2023 Tobacco use and exposure Smokeless tobacco non-user [facility] Work Phone: Start: 07-19-2023 End: 10-04-2023 Alcohol intake Current drinker of alcohol (finding) [facility] Work Phone: Start: 07-19-2023 Alcohol Comment occasional beer [facility] Work Phone: Start: 1955 Sex Assigned At Not on file [facility] Work Phone: Start: 07-09-2023 End: 11-10-2023 Exposure to SARS-CoV-2 (event) Not sure [facility] Functional Status Date Assessment Result Facility 03-09-2022 Functional Status N/A [facility] 02-05-2022 Functional Status Yes [facility] 01-23-2022 Functional Status N/A [facility] 12-05-2021 Functional Status N/A [facility] Functional observable [facility] Mental Status Date Assessment Result Facility 10-09-2020 Cognitive functions 30236:[id number] [facility] Clinical Notes 10-07-2020 to 10-04-2023 Margret Stevens MD - 10/04/2023 1:45 PM EDTPatient InstructionsMargret Stevens MD - 07/19/2023 3:00 PM ESTPatient Instructions Note Date & Type Note Facility 10-04-2023 Note Normal sinus rhythm poor R wave progression normal intervals no change compared to previous EKG [facility] 10-04-2023 History of Present illness Narrative [...] per 2D echocardiogram dated June 07, 2020, [place] [employer] class II, stage B heart failure. 10. Gouty arthritis. Patient remains on allopurinol, no recent recurrence. 11. Abnormal perfusion imaging showing an LV ejection fraction in the 20s, with subsequent cardiac catheterization showing LV ejection fraction of 45%, this was done at [facility] and that particular Catheterization did not [...] This is consistent with chronotropic blunting. 13. [id number] score is 6 14.48-hour Holter monitor-minimum heart [...] Metabolic Panel 5. Coronary artery disease involving [place] coronary artery of [place] heart without angina pectoris 6. Paroxysmal atrial [...] discussion and plan. documented in this encounter [facility] Work Phone: 10-04-2023 Instructions Judy Guillaume CMA [...] in office today documented in this encounter [facility] Work Phone: 07-19-2023 History of Present illness [...] per 2D echocardiogram dated June 07, 2020, [place] Heart Association class II, stage B heart failure. 10. Gouty arthritis. Patient remains on allopurinol, no recent recurrence. 11. Abnormal perfusion imaging showing an LV ejection fraction in the 20s, with subsequent cardiac catheterization showing LV ejection fraction of 45%, this was done at [facility] and that particular Catheterization did not [...] This is consistent with chronotropic blunting. 13. [id number] score is 6 14.48-hour Holter monitor-minimum heart [...] redirect to the Timeline version of the [employer] SmartLink. Wt Readings from Last 3 Encounters: [...] Date Noted Hypercoagulability due to atrial fibrillation ([facility]) 07/19/2023 Medication course changed 07/19/2023 Chronic systolic congestive heart failure, NYHA class 2 ([facility]) 07/19/2023 High risk medication use 07/19/2023 Abnormal electrocardiogram 05/05/2023 Atrial fibrillation ([facility]) 05/05/2023 CAD (coronary artery disease) 05/05/2023 Cardiomyopathy ([facility]) 05/05/2023 COVID-19 05/05/2023 SOB (shortness of breath) 05/05/2023 Assessment: 1. Paroxysmal atrial fibrillation ([facility]) Follow Up In Cardiology ECG 12 Lead CBC Comprehensive Metabolic Panel CBC Comprehensive Metabolic Panel 2. Coronary artery disease involving crooked creek coronary artery of [place] creek heart without angina pectoris Follow Up In [...] Margret Stevens MD. documented in this encounter [facility] Work Phone: 07-19-2023 Instructions Clarisa Quintanilla LPN [...] Increase physical activity. documented in this encounter [facility] Work Phone: 05-07-2023 Evaluation note Encounter Date [...] the ER for worsening symptoms or concerns [facility] Other 10-09-2023 Evaluation note* Encounter Date Diagnosis [...] as directed. Feb, Coronary artery disease involving crooked creek coronary artery of [place] heart without angina pectoris (ICD-10 - I25.10) Continue care w [facility] Feb, GAYLE (obstructive sleep apnea) (ICD-10 - G47.33) Continue care w Dr. Noble. [facility] Other 05-01-2023 History of Present illness Narrative* [...] per 2D echocardiogram dated June 07, 2020, [place] Heart Association class II, stage B heart failure. * 10. Gouty arthritis. Patient remains on allopurinol, no recent recurrence. * 11. Abnormal perfusion imaging showing an LV ejection fraction in the 20s, with subsequent cardiac catheterization showing LV ejection fraction of 45%, this was done at [facility] and that particular Catheterization did not [...] is consistent with chronotropic blunting. * 13. [id number]-[id number] score is 6 * Laboratory data from [...] prohibitively expensive-pleaseconsider Uriel or Juan-defer to primary/endocrinology. -[facility]-Carla French DO Work Phone: 1(572) 423-531005-01-2023 History of Present illness Narrative* Patient was [...] per 2D echocardiogram dated June 07, 2020, [place] Heart [employer] class II, stage B heart failure. * 10. Gouty arthritis. Patient remains on allopurinol, no recent recurrence. * 11. Abnormal perfusion imaging showing an LV ejection fraction in the 20s, with subsequent cardiac catheterization showing LV ejection fraction of 45%, this was done at [facility] and that particular Catheterization did not [...] is consistent with chronotropic blunting. * 13. [id number]-KYOw score is 6 * Laboratory data from [...] prohibitively expensive-pleaseconsider Uriel or Juan-defer to primary/endocrinology. -[facility]-aCrla French DO Work Phone: [phone]) 421-859605-01-2023 History of Present illness Narrative* Patient was [...] per 2D echocardiogram dated June 07, 2020, [place] Heart [employer] class II, stage B heart failure. * 10. Gouty arthritis. Patient remains on allopurinol, no recent recurrence. * 11. Abnormal perfusion imaging showing an LV ejection fraction in the 20s, with subsequent cardiac catheterization showing LV ejection fraction of 45%, this was done at [facility] and that particular Catheterization did not [...] is consistent with chronotropic blunting. * 13. [id number]-BKOn score is 6 * Laboratory data from [...] prohibitively expensive-pleaseconsider Ozempic or Rybelsus-defer to primary/endocrinology. -[facility]-Carla 250 DO Work Phone: 1([phone]) 596-743804-01-2023 History of Present illness Narrative* Patient with [...] per 2D echocardiogram dated June 07, 2020, [place] Heart Association class II, stage B heart failure. * 10. Gouty arthritis. Patient remains on allopurinol, no recent recurrence. * 11. Abnormal perfusion imaging showing an LV ejection fraction in the 20s, with subsequent cardiac catheterization showing LV ejection fraction of 45%, this was done at [facility] and that particular Catheterization did not [...] for his unrelenting fatigue and foggy brain. -[facility]-Carla French DO Work Phone: [phone]) 944-823201-16-2023 Evaluation note* Encounter Date Diagnosis Assessment Notes Treatment Notes Treatment Clinical Notes May, Type 2 diabetes mellitus with hyperglycemia, without long-term current use of insulin (ICD-10 - E11.65) chronic problem - may increase or add med based on lab results May, Essential (primary) hypertension (ICD-10 - I10) chronic and controlled adequately at this time. May, Coronary artery disease involving crooked creek coronary artery of [place] heart without angina pectoris (ICD-10 - I25.10) 16 May, 2022 BMI 50.0-59.9, adult (ICD-10 - Z68.43) Pt is encouraged to lose weight, change diet, and increase exercise as tolerated. [facility] Other 09-12-2022 Note [id number] 02-05-2022 Evaluation + Plan noteExtracted from: [...] Scheduled Tests Laboratory* Basic Metabolic Panel 06/06/21 [facility]09-08-2022 Hospital Discharge instructions Patient Education 02/05/2022 10:35:09 CV - Cardiovascular Discharge Instructions (CUSTOM) [place], [place] CARDIOVASCULAR DISCHARGE INSTRUCTIONS Diet: Resume pre-procedure [...] hours post procedure: Actoplus MetGlucophageGlucophage XR GlucovanceAvandametFortamet Gip-iqsuqdmatFuiqusAjwn-ehpsdwswp GlumetzaJanumetMetaglip RiometGlycomet *Minimal pain, soreness and/or discomfort [...] you are interested in smoking cessation, contact [facility] at [phone], ext. [phone]. In the event you are unable to reach your physician, please call [facility] at [phone] and the flatbed press operator will assist you. Seek Immediate Medical Care for: Bleeding: Apply continuous pressure to the site and Call 911. Should the arm or leg become cold, numb, blue or white call your physician immediately. Signs of infection are redness, warmth, swelling, increased tenderness, colored drainage, fever or chills Chest pain Follow Up Care 01/27/2022 09:04:57 With:Kushal Page Address: [address] [place] [phone] Business (1) When:03/09/2022 11:15:00 [facility]09-08-2022 NoteProcedure The risk/benefits of the procedure [...] Education Routine Capillary Glucose POC Saline Lock InsertMount St. Mary HospitalComment on above:Result Comment: Electronically Signed By: Camilo STARK, Kushal Moran.br\Date and Time Signed: 02/05/22 06:47 [id number] Evaluation + Plan note Future Scheduled Tests Laboratory* Basic Metabolic Panel 06/06/21 [facility]05-12-2021 Hospital Discharge instructions* Follow Up Appointment 1:Physician/Dept/Service: Kaity Zapata (VIN N.PKami)Scheduled Date/Time: [id number]: [facility]IN Romano officePhone Number: [phone] [facility]05-10-2021 History of Present illness Narrative* 65-year-old male who is followed for persistent atrial fibrillation. He underwent antiarrhythmic drug loading with sotalol October 07, 2020 and presents to the office today for follow-up evaluation. His carvedilol was discontinued due to heart rates in the 40s post drug loading. He did require cardioversion on October 09, 2020 for religion of sinus rhythm. * Since the last [...] per 2D echocardiogram dated June 07, 2020, [place] Heart Association class II, stage B heart [...] software was utilized to prepare this document. [facility]-[place] 320 DO Work Phone: [phone] 553-272905-10-2021 History of Present illness Narrative* 65-year-old male who is followed for persistent atrial fibrillation. He underwent antiarrhythmic drug loading with sotalol October 07, 2020 and presents to the office today for follow-up evaluation. His carvedilol was discontinued due to heart rates in the 40s post drug loading. He did require cardioversion on October 09, 2020 for religion of sinus rhythm. * Since the last [...] per 2D echocardiogram dated June 07, 2020, [place] Heart Association class II, stage B heart [...] software was utilized to prepare this document. [facility] Work Phone: Evaluation + Plan note Future Appointments Appointment Date:01/23/2022 03:00:00 PM Scheduled Provider:Kushal Page MD Location:[facility].Cardiology Clinic Appointment Type:Cardiology Follow Up (FT) Future Scheduled Tests Laboratory* Basic Metabolic Panel 06/06/21 Radiology* NM Myocardial Spect Rest/Stress 2 Day [facility]05[facility]21 [facility] Future Appointments Appointment Date:02/05/2022 08:00:00 AM Scheduled Provider: Location:[facility] Appointment Type:CV Heart Cath (FT) Future Scheduled Tests Laboratory* Basic Metabolic Panel 06/06/21 Radiology* CV Cardiovascular 02/05/22 [facility] Future Appointments Appointment Date:09/08/2022 03:15:00 PM Scheduled Provider:Kushal Page MD Location:[facility].Cardiology Clinic Appointment Type:Cardiology Follow Up (FT) Future Scheduled Tests Laboratory* Basic Metabolic Panel 06/06/21 [facility]* Musculoskeletal: ROM intact, no joint [...] wounds, or clubbingPsychological: Appropriate mood and behavior [facility] noteNo InformationN[facility] [employer] Other Evaluation note* Diagnosis Paroxysmal atrial fibrillation (CMS/HCC) Atrial fibrillation Coronary artery disease involving cro[place] creek coronary artery of [place] heart without angina pectoris Ischemic cardiomyopathy Other specified forms of chronic ischemic heart disease Chronic systolic congestive heart failure, NYHA class 2 (CMS/HCC) Hypercoagulable state due to paroxysmal atrial fibrillation (CMS/HCC) Medication course changed Mixed hyperlipidemia High risk medication use documented in this encounter [facility] Work Phone: Evaluation note* Diagnosis SOB (shortness of breath) Shortness of breath Edema, unspecified type Chronic systolic congestive heart failure, NYHA class 2 (Multi) Ischemic cardiomyopathy Other specified forms of chronic ischemic heart disease Coronary artery disease involving [place] coronary artery of [place] heart without angina pectoris Paroxysmal atrial fibrillation (Multi) Atrial fibrillation Lower leg edema High risk medication use Hypercoagulable state due to paroxysmal atrial fibrillation (Multi) Unspecified atrial fibrillation (Multi) Sleep apnea treated with continuous positive airway pressure (CPAP) Mixed hyperlipidemia Medication course changed documented in this encounter [facility] Work Phone: Evaluation note* Diagnosis SOB (shortness of breath) Shortness of breath Chronic systolic congestive heart failure, NYHA class 2 (Multi) Ischemic cardiomyopathy Other specified forms of chronic ischemic heart disease documented in this encounter [facility] Work Phone: History general Narrative - Reported* Type Description Date Medical History Gout Medical History Depression Medical History HTN Medical History stroke Medical History Atrial fibrillation Medical History DM Surgical History Back surgery Surgical History Hernia Surgical History Mass removed from skin of neck Surgical History heart cath with stent placed Hospitalization History See past surgical hx Hospitalization History Stroke 05/2019 [facility] [employer] Other History of Present illness Narrative* Patient is new to this provider, he is accompanied by his who works at [employer] in the cafeteria. Prior records were [...] function test, and Lexiscan stress test at [facility]. He states he has absolutely no energy and is easily fatigued, he is short of breath and he has a nonproductive cough. He denies fever or chills. He isaccompanied by his who questions whether he may change his cardiology follow-up to [facility] due to proximity to home. * Patient wishes to establish care at [facility]. Predominant complaints are unrelenting fatigue, short-term memory [...] per 2D echocardiogram dated June 07, 2020, [place] Heart Association class II, stage B heart failure. * 10. Gouty arthritis. Patient remains on allopurinol, no recent recurrence. * 11. Abnormal perfusion imaging showing an LV ejection fraction in the 20s, with subsequent cardiac catheterization showing LV ejection fraction of 45%, this was done at [facility] and that particular Catheterization did not show any flow-limiting disease. The perfusion study was done in December 2021, cardiac catheterization from January 2022 showed nonobstructive coronary artery disease of theleft system widely patent RCA stent LVEF 45% moderately dilated left ventricular chamber dimension mildly elevated LV end-diastolic pressure. * EKG from today shows normal sinus rhythm at 64 bpm SC interval 148 ms QRS duration 106 ms [...] ALT and AST mildly elevated hemoglobin 13.4. 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 * 10. Gouty arthritis. Patient remains on allopurinol, no recent recurrence. * 11. 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 * 10. Gouty arthritis. Patient remains on allopurinol, no recent recurrence. * 11. Abnormal perfusion imaging showing an LV ejection fraction in the 20s, with subsequent cardiac catheterization showing LV ejection fraction of 45%, this was done at [facility] and that particular Catheterization did not [...] will defer to sleep medicine * Recommendations: [facility] Work Phone: Hospital course Narrative No data available for this section [facility] No data available for this section [facility] No data available for this section [facility] Chief Complaint Patient is here today [...] function test, and Lexiscan stress test at [facility]. He states he has absolutely no energy andis easily fatigued, he is short of breath and he has a nonproductive cough. He denies fever or chills. He is accompanied by his who questions whether he may change his cardiology follow-up to [facility] due to proximity to home. * [...] per 2D echocardiogram dated June 07, 2020, [place] Heart Association class II, stage B heart failure. * 10. Gouty arthritis. * Recommendations: * 1. Continue current medications as prescribed. * 2. 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 He was instructed to notify [facility] if he requires any medical [...] was utilized to prepare this document. LORENA BETH is being seen for CAD/ AFIB old Dr. Leo patient.LORENA CAMPOS is being seen for CAD/ AFIB old Dr. Leo patient.LORENA GOULDCOLBY is being seen for a 6 week follow-up of.LORENA CAMPOS is being seen for a 6 week follow-up of.LORENA GOULDCOLBY is being seen for test results.LORENA GOULDCOLBY is being seen for test results.LORENA CAMPOS is being seen for 6-8 week follow up.LORENA CAMPOS is being seen for 6-8 week follow up.LORENA GOULDCOLBY is being seen for 6- 8 week [...] (Multi) Ischemic cardiomyopathy Procedures Transthoracic Echo Complete SC ECHO TTHRC R-T 2D W/WOM-MODE COMPL SPEC&COLR D Margret Stevens MD [address] [facility] [address] [place] [address] Referral ID Status Reason Start Date Expiration Date Visits Requested Visits Authorized [id number] Pending Review Perform Procedure 10/04/2023 10/03/2024 1 1 Specialty Diagnoses / Procedures Referred By Contac t Referred To Contact Diagnoses Paroxysmal atrial fibrillation (Multi) Procedures ECG 12 Lead Margret Stevens MD [address] [place] [address] Referral ID Status Reason Start Date Expiration Date V isits Requested Visits Authorized [id number] Authorized 10/04/2023 10/03/2024 1 1 Specialty Diagnoses / Procedures Referred By Contac t Referred To Contact Cardiology Diagnoses Ischemic cardiomyopathy Procedures Follow Up In Cardiology Margret Stevens MD [address] [place] [address] Margret Stevens MD [address] [place] [address] Referral ID Status Reason Start Date Expiration Date V isits Requested Visits Authorized [id number] Authorized 10/04/2023 10/03/2024 1 1 Specialty Diagnoses / Procedures Referred By Contac t Referred To Contact Cardiology Diagnoses Ischemic cardiomyopathy Chronic systolic congestive heart failure, NYHA class 2 (CMS/HCC) Procedures Transthoracic Echo Complete SC ECHO TTHRC R-T 2D W/WOM-MODE COMPL SPEC&COLR D Margret Stevens MD [address] [facility] [address] [place] [address] Referral ID Status Reason Start Date Expiration Date Visits Requested Visits Authorized [id number] Pending Review Perform Procedure 07/19/2023 07/18/2024 1 1 Specialty Diagnoses / Procedures Referred By Contac t Referred To Contact Diagnoses Paroxysmal atrial fibrillation (CMS/HCC) Procedures ECG 12 Lead Margret Stevens MD [address] [place] [address] Referral ID Status Reason Start Date Expiration Date V isits Requested Visits Authorized [id number] Authorized 07/19/2023 07/18/2024 1 1 Specialty Diagnoses / Procedures Referred By Contac t Referred To Contact Cardiology Diagnoses Paroxysmal atrial fibrillation (CMS/HCC) Coronary artery disease involving cro[place] coronary artery of [place] heart without angina pectoris Ischemic cardiomyopathy Procedures Follow Up In Cardiology Margret Stevens MD [address] [facility] [address] [place] [address] Margret Stevens MD [address] [facility] [address] [place] [address] Referral ID Status Reason Start Date Expiration Date V isits Requested Visits Authorized [id number] Authorized 07/19/2023 07/18/2024 1 1 Reason 07/06/22 [place] office, scanning recent documents we have from [facility], but we do not have all of them Diagnosis 1 Coronary artery dise ase involving crooked creek coronary artery of [place] heart without angina pectoris (I25.10) Referral Organization [facility] conrad Referring Provider First Name Beena Referring Provider Last Name Jeyson Referring Provider Specialty [facility] Referred Organization [facility] Referred Provider Albaro Au Referred Address [address] [place] [address] [place], [place],[address] Referred Provider Specialty Internal Med icine Referral Priority Routine Referral Appointment Date 2022-07-06 General Notes Gerri Davis 11:54:25 AM >received today, ins card attached along with previous [facility] note. referral faxed [...] section and content) DATE CREATED AUTHOR 07/24/2021 [facility] DATE CREATED AUTHOR AUTHOR'S ORGANIZ ATION 09/12/2022 [facility] DATE CREATED AUTHOR AUTHOR'S ORGANIZ ATION 09/26/2022 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 (unrecognized sect ion and content) Hospice/Home Health Aide Relationship Specialty Start Date End Date Beena Benítez MD [address] [place] [id number] PCP - General Family Medicine 07/19/23 Hospice/Home Health Aide Relationship Specialty Start Date End Date Beena Benítez MD PCP - General Family Medicine 07/19/23 Hospice/Home Health Aide Relationship Specialty Start Date End Date Beena Benítez MD PCP - General Family Medicine 07/19/23 REASON FOR VISIT (unrecogniz ed section and content) Reason Comments Follow-up 5 month Specialty Diagnoses / Procedures Referred By Contac t Referred To Contact Diagnoses Paroxysmal atrial fibrillation (CMS/HCC) Procedures ECG 12 Lead Margret Steevns MD [address] [place] [address] [address] [place] [address] Referral ID Status Reason Start Date Expiration Date V isits Requested Visits Authorized [id number] Authorized 07/19/2023 07/18/2024 1 1 Reason Comments Follow-up Sooner OV - last mon th lower edema, med change Specialty Diagnoses / Procedures Referred By Contac t Referred To Contact Cardiology Diagnoses SOB (shortness of breath) Edema, unspecified type Procedures Follow Up In Cardiology Margret Stevens MD [address] [facility] [address] [place] [address] Margret Stevesn MD [address] [facility] [address] [place] [address] Referral ID Status Reason Start Date Expiration Date V isits Requested Visits Authorized [id number] Authorized 09/23/2023 09/22/2024 1 1 Specialty Diagnoses / Procedures Referred By Contac t Referred To Contact Cardiology Diagnoses SOB (shortness of breath) Chronic systolic congestive heart failure, NYHA class 2 (Multi) Ischemic cardiomyopathy Procedures Transthoracic Echo Complete SC ECHO TTHRC R-T 2D W/WOM-MODE COMPL SPEC&COLR D Margret Stevens MD [address] [facility] [address] [place] [address] Referral ID Status Reason Start Date Expiration Date Visits Requested Visits Authorized [id number] Authorized Perform Procedure 10/04/2023 10/03/2024 1 1 FOR RECORDS PERTAINING TO PATIENTS [...] BE BASED ON THE PRIMARY CLINICAL RECORDS. [facility]. provides no warranty or guarantee of the accuracy or completeness of information in this document.
[2024-01-10 09:41] LABS: Anion Gap 13.7; Calcium 8.8 mg/dL (8.5-10.1); Carbon Dioxide 24.9 mmol/L (21.0-32.0); Chloride 101 mmol/L (98-107); Estimated GFR (African America >60 (>=60); Estimated GFR (Non-African Ame >60 (>=60); Glucose 186 mg/dL (74-106); Potassium 4.6 mmol/L (3.5-5.1); Sodium 135 mmol/L (136-145)
== END 2024-01-10 08:55 | disposition home or self-care (01) ==
PROVIDERS: PCP Family Medicine; Visit Provider Nurse Practitioner
DX: R06.02 Shortness of breath (principal)
CPT/HCPCS: 36415; 80048; 83880

== ENCOUNTER 2024-02-15 07:58 | Outpatient (OUT) | payer MEDICARE, SELFPAY ==
--- OUTSIDE RECORDS SUMMARY | 2024-02-15 08:21 | XMS_ITS | CCD ---
Author Organization [facility] Care Team Providers Care Customer Relations Advisor Name Role Phone Beena Benítez Unavailable Adam [...] Referring Unavailable Stevens, Dr. Oswald Attending Unavailable Benítez, [...] Unavailable Beena Benítez MD Primary Care Provider [phone] Beena Benítez MD Primary Care Provider [phone] Beena Benítez MD Primary Care Provider [phone] MARGRET STEVENS Referring Unavailable BEENA BENÍTEZ Primary Care Unavailable MARGRET STEVENS Attending Unavailable BEENA BENÍTEZ Primary Care Unavailable MARGRET STEVENS Attending Unavailable SHILPI STEVENSA Referring Unavailable BEENA BENÍTEZ Primary Care Unavailable LEONEL BILLY Attending Unavailable MARGRET STEVENS Referring Unavailable BEENA BENÍTEZ Primary Care Unavailable MARGRET STEVENS Attending Unavailable LEONEL BILLY Referring Unavailable BEENA BENÍTEZ Primary Care Unavailable Allergies Allergy Classification Reported Allergen(s) Allergy Type Date of Onset Reaction(s) Facility (1 source) No Known Medication Allergies; Translations: [No Known Medication Allergies] Propensity to adverse reactions (disorder) [facility] Repository (10 sources) dapagliflozin; Translations: [Farxiga TABS] Drug Allergy [facility] 250 DO Work Phone: Medications Current Medications Medication [...] # 90 tab(s), Refills(s) 3, Pharmacy: [facility]/pharmacy #[id number], 178, jazmín, 01/23/22 14:05:00 EDT, Height/Length Dosing, 170, kg, 01/23/22 14:05:00 EDT, Weight Dosing Start Date: 01/24/22 Stop Date: 01/19/23 Status: Ordered Start: 01-23-2022 take 4 tablets by mouth once P lavix 75 mg Tab 300 mg = 4 tab(s), Oral, Once, 300 mg Loading Dose, # 4 tab(s), Refills(s) 0, Pharmacy: [facility]/pharmacy #[id number], 178, cm, 01/23/22 14:05:00 EDT, Height/Length Dosing, 170, kg, 01/23/22 14:05:00 EDT, Weight Dosing Start Date: 01/24/22 Status: Ordered Clopidogrel Bisu lfate Active take 1 tablet by th once daily Clopidogrel Bisulfate 75 MG [...] Status: Ordered take 1 tablet by inocencio once daily as needed colchicine 0.6 mg [...] # 90 tab(s), Refills(s) 3, Pharmacy: [facility]/pharmacy #[id number], 179, cm, 03/09/22 11:22:00 EDT, [...] # 180 tab(s), Refills(s) 3, Pharmacy: [facility]/pharmacy #[id number], 178, cm, 06/20/21 9:09:00 EST, [...] DAY Quantity: 180 Refills: 0 Ordered: 17-Aug-2022 Rodney STARK Margret Start : 06-Jul-2022 Active stop losartan/ new [...] Start: 05-17-2020 take 2 tablets by mo [facility] at bedtime atorvastatin 40 mg Tab 80 mg = 2 tab(s), Oral, Bedtime, Refills(s) 0, High cholesterol Start Date: 05/17/20 Status: Ordered Atorvastatin Davide cium Not-Taking take 1 tablet by inocencio th once daily Atorvastatin Calcium 10 MG Oral Tablet TAKE 1 TABLET DAILY DIRECTED. Quantity: 0 Refills: 0 Ordered: 21-Apr-2021 DO Active take 1 tablet by incoencio once daily at bedtime atorvastatin 40 mg [...] Quantity: 90 Refills: 3 Ordered: 21-Dec-2022 Jonathon ENGINE MANAGER-Kaity BEATTY Start : 21-Dec-2022 Active Start: 10-09-2020 Magnesium [...] 3 2020 Chronic Coagulation and hemorrhagic disorders (9 sources) Other thrombophilia; Translations: [Secondary hypercoagulable state] Onset: 4 07-19-2023 Chronic Conduction disorders (10 sources) Chronotropic incompetence; Translations: [Other specified conduction disorders] Chronic Congestive heart failure; nonhypertensive (20 sources) Congestive heart failure stage C; Translations: [Congestive heart failure, unspecified] Onset: 3 07-19-2023 Chronic Coronary atherosclerosis and other heart disease (20 sources) Coronary arteriosclerosis; Translations: [Coronary atherosclerosis of unspecified type of vessel, grayling or graft] Onset: 3 Chronic Coronary atherosclerosis [...] of anticoagulants] Episodic Other aftercare (1 source) retirement (current) use of anticoagulants; Translations: [CORRECTION CURRNT USE ANTICOAGULANTS] Onset: 3 Episodic Other connective tissue disease (10 sources) Muscle pain; Translations: [Myalgia and myositis, unspecified] Episodic Other infections; including parasitic (14 sources) Personal history of other infectious and parasitic diseases; Translations: [Personal history of COVID-19] Episodic Other lower respiratory disease (20 sources) Dyspnea; Translations: [Shortness of breath] Onset: 3 05-05-2023 Episodic Other nutritional; endocrine; and metabolic disorders (4 sources) Morbid obesity; Translations: [Morbid obesity] Chronic Other nutritional; endocrine; and metabolic disorders (20 sources) Body mass index 40+ - severely obese; Translations: [Morbid obesity] Chronic Other nutritional; endocrine; and metabolic disorders (3 sources) Body mass index (BMI) 50.0-59.9, adult; Translations: [Body mass index (BMI) 50.0-59.9, adult (Multi)] Onset: 4 Chronic Other screening for suspected conditions (not mental disorders or infectious disease) (20 sources) Electrocardiogram abnormal; Translations: [Nonspecific abnormal electrocardiogram [ECG] [EKG]] Onset: 3 05-05-2023 Episodic Daphne-; endo-; and myocarditis; cardiomyopathy (except that caused by tuberculosis or sexually transmitted disease) (20 sources) Cardiomyopathy; Translations: [Other primary cardiomyopathies] Onset: 3 Chronic Residual codes; unclassified (11 sources) Sleep apnea; Translations: [Obstructive sleep apnea (adult)(pediatric)] Onset: 4 06-21-2020 Chronic Residual codes; unclassified (19 sources) Obstructive sleep apnea syndrome; Translations: [Obstructive sleep apnea (adult)(pediatric)] Chronic Residual codes; unclassified (1 source) Obstructive sleep apnea (adult) (pediatric) Chronic Residual codes; unclassified (2 sources) Sleep apnea, unspecified; Translations: [Sleep apnea, unspecified] Onset: Chronic Residual codes; unclassified (9 sources) Non-smoker; Translations: [Other specified conditions influencing health status] Episodic Residual codes; unclassified (16 sources) Poor short-term memory ; Translations: [Memory loss] Episodic Residual codes; unclassified (1 source) Edema; Translations: [Edema, unspecified] 10-04-2023 Episodic Residual codes; unclassified (3 sources) Edema of lower leg ; Translations: [Localized edema] Onset: 4 10-04-2023 Episodic Sprains and strains (1 source) Strain of muscle, fascia and tendon of lower back, initial encounter Episodic Transient cerebral ischemia (16 sources) Transient cerebral ischemia; Translations: [Unspecified transient cerebral ischemia] Chronic Unclassified (2 sources) DRUG LOADING WITH SOTALOL 09-26-2020 Comment on above: DRUG LOADING WITH SO TALOL Past or Other Problems Problem Classification Problem Date Documented Da te Episodic/Chronic Other aftercare (15 sources) Treatment changed; Translations: [Long-term (current) use of other medications] Onset: 07-19-2023 07-19-2023 Episodic Other aftercare (3 sources) Other intermediate (current) drug therapy; Translations: [OTH CORRECTION CURRENT DRUG THERAPY] Onset: 10-28-2022 Episodic Other aftercare (5 sources) Taking high risk medication; Translations: [Other intermediate (current) drug therapy] Onset: 07-19-2023 07-19-2023 Episodic Other lower respiratory disease (5 sources) Shortness of breath; Translations: [Shortness of breath] Onset: 09-10-2022 Episodic Other lower respiratory disease (4 sources) Solitary pulmonary nodule; Translations: [SOLITARY PULMONARY NODULE] Onset: 01-19-2022 Episodic Residual codes; unclassified (20 sources) H/O: obesity; Translations: [Personal history of other specified diseases] Resolved: 12-31-2021 Episodic Residual codes; unclassified (2 sources) Edema, unspecified; Translations: [Edema, unspecified] Onset: 10-04-2023 Episodic Residual codes; unclassified (2 sources) Localized edema; Translations: [Localized edema] Onset: 10-04-2023 Episodic Unclassified (16 sources) Never smoked tobacco; [...] COM PLETEon 11-10-2023 TRANSTHORACIC ECHO (TTE) COMPLETE [address], [place] [address] TRANSTHORACIC ECHOCARDIOGRAM REPORT Patient Name: LORENA Arboleda Physician: [id number] Roman MD Study Date: 11/10/2023 Ordering Provider: [id number] MARGRET STEVENS MRN/PID: [id number] Fellow: Nurse: Tigre De La Rosa RN Date of /Age: 5 1955 / 68 years Rigging Man: Gina Hernandez RDCS, RVT Gender: M Additional Staff: Height: 177.80 cm Admit Date: Weight: 166.92 kg Admission Status: BSA / BMI: 2.70 m2 / 52.80 kg/m2 Department Location: [facility] Study Type: TRANSTHORACIC ECHO (TTE) COMPLETE Diagnosis/ICD: Shortness of breath-R06.02; Chronic systolic (congestive) heart failure (CHF)-I50.22; Ischemic cardiomyopathy-I25.5 Indication: Atrial Fibrillation, CAD, PTCA-04/2020, Diabetes, Edema, HTN, Hyperlipidemia, Morbid Obesity, GAYLE CPT Codes: Echo Complete w Full Doppler-[id number] Study Detail: The following Echo studies were [...] 0.5 m/s (0.6-0.9m/s) PV Max P.2 mmHg [id number] Albaro Roman MD Electronically signed on 11/11/2023 at 6:04:53 PM Final Normal [facility] ECG 12 Leadon 10-04-2023 [facility] Work Phone: [facility] Work Phone: ECG 12 Leadon 08-16-2023 [facility] Work Phone: Office Visit (Cardiology)on [...] Metabolic Panel; Status:Active - Retrospective Authorization; Requested for:[id number]; Abnormal EKG, Fatigue, High risk medication use, Hyperlipidemia Complete Blood Count; Status:Active - Retrospective Authorization; Requested for:[id number]; Atrial fibrillation IO EKG Electrocardiogram- 12 Lead; Status:Complete; Done: [id number] Morbid obesity with BMI of 50.0-59.9, adult Healthy Weight Tips; Status:Complete - Retrospective Authorization; Done: [id number] Some eating tips that can help you lose weight.; Status:Complete - Retrospective Authorization; Done: [id number] SocHx: Never smoker Tobacco Use Screening; Status:Complete; Done: [id number] Patient Instructions Please bring all medicines, vitamins, [...] options. He and his have joined weight [employer]. An EKG was done today, reviewed,No recent [...] per 2D echocardiogram dated June 07, 2020, [place] Heart Association class II, stage B heart failure. 10. Gouty arthritis. Patient remains on allopurinol, no recent recurrence. 11. Abnormal perfusion imaging showing an LV ejection fraction in the 20s, with subsequent cardiac catheterization showing LV ejection fraction of 45%, this was done at [facility] and that particular Catheterization did [...] This is consistent with chronotropic blunting. 13. [id number] score is 6 14.48-hour Holter monitor-minimum heart rate 46 bpm average heart rate 66 bpm maximum heart rate 99 bpm ventricular patience (more content not included)... Normal [facility] Tobacco Screening.on 023 Fall risk assessment b) One or more fall s in the last year [facility] 250 DO Work Phone: Tobacco use status CP b) No [facility] 250 DO Work Phone: Cardiovasc Arrhythmia Result son 11-30-2022 Cardiovasc Arrhythmia Results Reason For Visit Reason for Visit: Holter Monitor: LORENA is here for the application of a 48 hour Holter monitor. Ordering Physician: Dr. Margret Stevens MD Diagnosis: a-fib NO equipment agreement signed. LORENA understands monitor is to be returned on: 12/02/2022 Monitor number [id number] applied. Holter monitor returned and downloaded. Holter monitor returned and downloaded. 12/03/2022 Holter monitor printed and emailed to [facility] [facility] and placed on Dr. Margret Stevens [...] Appointments Date/TimeProviderSpeci altySite 02/15/2023 12:30 PMMargret Stevens, [id number] [facility] [address] 250 DO Signatures Electronically signed by : Margret Stevens MD; Feb 15 2023 2:58PM EST (Author) Normal [facility] Office Visit (Cardiology)on 11-23-2022 Follow-up visit Diagnoses/Problems [...] Metabolic Panel; Status:Active - Retrospective Authorization; Requested for:[id number]; Morbid obesity with BMI of 50.0-59.9, adult [...] EKG shows sinus rhythm at 82 bpm GA interval 158 ms QRS duration 102 ms [...] no significant change compared to EKG of 3 with the exception of supraventricular premature beats [...] per 2D echocardiogram dated June 07, 2020, [place] Heart Association class II, stage B heart failure. 10. Gouty arthritis. Patient remains on allopurinol, no recent recurrence. 11. Abnormal perfusion imaging showing an LV ejection fraction in the 20s, with subsequent cardiac catheterization showing LV ejection fraction of 45%, this was done at [facility] and that particular Catheterization did [...] This is consistent with chronotropic blunting. 13. [id number] score is 6 Laboratory data from September 2022 s (more content not included)... Normal [facility] Tobacco Screening.on 023 Adult depression screening assessment No [facility] 250 DO Work Phone: Fall risk assessment a) No falls within the last year [facility] [employer] [employer]ew[facility] y 250 DO Work Phone: Tobacco use status CPHS b) No [facility] adRise-3Jam y 250 DO Work Phone: BNPon 10-27-2022 Natriuretic peptide B (Bld) [Mass/Vol] 80.0 pg/mL Normal <=900.0 [facility] Comment on above: Performed By: #### B CLERICAL MANAGER, CK, TSH #### [facility] [address] [place] [address] [address] Maria T Canela CPKon 10-27-2022 CK [Catalytic activity/Vol] 302 U/L Normal 39-308 [facility] Comment on above: Performed By: #### B CLERICAL MANAGER, CK, TSH #### [facility] [address] [place] [address] [address] Maria T Canela FREE T4on 10-27-2022 Free T4 [Mass/Vol] 0.87 ng/dL Normal 0.76-1.46 [facility] Comment on above: Performed By: #### F T4 ####[facility] [address] [place] [address]Dr. Maria T Canela GLYCOHEMOGLOBIN A1Con 2022 ADA RECOMMENDATION SEE BELOW Normal [facility] Comment on above: Result Comment: ADA RECOMMENDED LIMIT 4.0 - 6.0 ADA THERAPEUTIC TARGET < 7.0 ACTION SUGGESTED > 7.0 Performed By: #### A 1C #### [facility] [address] [place] [address] [address] Maria T Canela Glucose [Mass/Vol] 169 mg/dL Normal [facility] Comment on above: Performed By: #### A 1C #### [facility] [address] [place] [address] [address] Maria T Canela HbA1c (Bld) [Mass fraction] 7.5 % Critically high 4.5-6.2 [facility] Comment on above: Performed By: #### A 1C #### [facility] [address] [place] [address] [address] Maria T Canela SED RATE WESTERGRENon 2022 SED RATE 15 mm/hr Normal <=20 [facility] Comment on above: Performed By: #### S EDR ####[facility] [address] [place] [address]Dr. Maria T Canela TSHon 10-27-2022 TSH 1.477 uIU/mL Normal 0.358-3.740 [facility] Comment on above: Performed By: #### B CLERICAL MANAGER, CK, TSH #### [facility] [address] [place] [address] Dr. Maria T Canela Office Visit (Cardiology)on [...] per 2D echocardiogram dated June 07, 2020, [place] Heart Association class II, stage B heart failure. 10. Gouty arthritis. Patient remains on allopurinol, no recent recurrence. 11. Abnormal perfusion imaging showing an LV ejection fraction in the 20s, with subsequent cardiac catheterization showing LV ejection fraction of 45%, this was done at [facility] and that particular Catheterization did not show any flow-limiting disease. The perfusion study was done in December 2021, cardiac catheterization from January 2022 showed nonobstructive coronary artery disease of the left system widely patent RCA stent LVEF 45% moderately dilated left ventricular chamber dimension mildly elevated L (more content not included)... Normal [employer] Tobacco Screening.on 023 Tobacco use status CPHS b) No [facility] 250 DO Work Phone: Heart [...] in office. He had echocardiogram performed at [facility], which was normal. He was [...] protocol. [1] patient was then referred to [place] and was placed on sotalol followed by [...] progressive dry (more content not included)... Normal [facility] Comment on above: Result Comment: Elec tronically Signed By: Camilo STARK, Kushal Galarza Other Comment: Appar ent pt no show Cardiac Stress Teston 2022 Cardiac Stress Test [address], [address] [place] [address] Exercise Stress Test Patient Name: LORENA CAMPOS Ordering Physician: [id number] Margret Stevens Study Date: 09/10/2022 Reading Physician: [id number] Kim Mckeon MD, [facility] MRN/PID: [id number] Supervising Physician: [id number] iKm Mckeon MD, [facility] Accession/Order#: [id number] Referring Physician: MARGRET STEVENS Date of : 1955 PCP: Beena Benítez Gender: M Fellow: Height: 177.80 cm Nurse: Tigre De La Rosa RN Weight: 168.74 kg Rigging Man: ROB BSA: 2.72 m2 Technologist: BMI: 53.38 kg/m2 Additional Staff: Age: 66 years cc report to: Patient Location: cc report to: [id number] Margret Stevens Study Type: Cardiac Stress Test Diagnosis/ICD: R94.31-Abnormal electrocardiogram [ECG] [EKG]; I25.10-Atherosclerotic heart disease; I42.9-Cardiomyopathy, unspecified; I50.9-Heart failure, unspecified; R06.02-Shortness of breath Indication: Cardiomyopathy Procedure/CPT: Stress Test Interpretation-[id number]; Stress Test Supervision-[id number] Falls Risk: Low: Patient has low risk [...] The adequate level of stress was achieved. [id number] Kim Mckeon MD, [facility] Electronically signed on 09/10/2022 at 6:25:43 PM Final Normal [facility] Cardiac Stress Test [facility] [place] [facility] 250 DO Work Phone: Office [...] History of Present Illness Patient with atherosclerotic grayling vessel coronary artery disease, multiple cardiac risk [...] per 2D echocardiogram dated June 07, 2020, [place] Heart Association class II, stage B heart failure. 10. Gouty arthritis. Patient remains on allopurinol, no recent recurrence. 11. Abnormal perfusion imaging showing an LV ejection fraction in the 20s, with subsequent cardiac catheterization showing LV ejection fraction of 45%, this was done at [facility] and that particular Catheterization did not show any flow-limiting disease. The perfusion study was done in December 2021, cardiac catheterization from January 2022 showed nonobstructive coronary a (more content not included)... Normal [facility] Tobacco Screening.on 023 Fall risk assessment c) Not medically indicated -[facility] 250 DO Work Phone: Tobacco use status CPHS b) No -[facility] 250 DO Work Phone: BNPon 07-20-2022 Natriuretic peptide B (Bld) [Mass/Vol] 72.0 pg/mL Normal <=900.0 [facility] Comment on above: Performed By: #### B MP, BNP ####[facility] [address] [place] [address]Dr. Maria T Canela PROF CHEM 8 (BAS METB)on Anion gap [Moles/Vol] 11.8 mmol/L Normal [facility] Comment on above: Performed By: #### B MP, BNP ####[facility] [address] [place] [address]Dr. Maria T Canela Calcium [Mass/Vol] 9.2 mg/dL Normal 8.5-10.1 [facility] Comment on above: Performed By: #### B MP, BNP ####[facility] [address] [place] [address]Dr. Maria T Canela Chloride [Moles/Vol] 101 mmol/L Normal 98-107 [facility] Comment on above: Performed By: #### B MP, BNP ####[facility] [address] [place] [address]Dr. Maria T Canela CO2 [Moles/Vol] 28.1 mmol/L Normal 21.0-32.0 [facility] Comment on above: Performed By: #### B MP, BNP ####[facility] [address] [place] [address]Dr. Maria T Canela Creatinine [Mass/Vol] 0.82 mg/dL Normal 0.70-1.30 [facility] Comment on above: Performed By: #### B MP, BNP ####[facility] [address] [place] [id number]. Maria T Canela EGFR-AF [facility] >60 Normal >=60 [facility] Comment on above: Performed By: #### B MP, BNP ####[facility] [address] [place], [place] [address]If. Maria T Canela EGFR-NON AF [facility] >60 Normal >=60 [facility] Comment on above: Performed By: #### B MP, BNP ####[facility] [address] [place] [phone]. Maria T Canela Glucose [Mass/Vol] 190 mg/dL Critically high 74-[address] [facility] Comment on above: Performed By: #### B MP, BNP ####[facility] [address] [place] [address]Dr. Maria T Canela Potassium [Moles/Vol] 4.9 mmol/L Normal 3.5-5.1 [facility] Comment on above: Performed By: #### B MP, BNP ####[facility] [address] [place] [phone]. Maria T Canela Sodium [Moles/Vol] 136 mmol/L Normal 136-145 [facility] Comment on above: Performed By: #### B MP, BNP ####[facility] [address] [place] [phone]. Maria T Canela Urea nitrogen [Mass/Vol] 13.0 mg/dL Normal 7.0-18.0 [facility] Comment on above: Performed By: #### B MP, BNP ####[facility] [address] [place] [phone]. Maria T Canela Urea nitrogen/Creatinine [Mass ratio] 15.9 mg/mg Normal [facility] Comment on above: Performed By: #### B MP, BNP ####[facility] [address] [place] [phone]. Maria T Canela Office Visit (Cardiology)on 07-06-2022 [...] Metabolic Panel; Status:Active - Retrospective Authorization; Requested for:[id number]; Brain Natriuretic Peptide BNP; Status:Active - Retrospective Authorization; Requested for:[id number]; CHF (NYHA class II, ACC/AHA stage C) [...] is accompanied by his who works at [facility] [employer] in the cafeteria. Prior records [...] function test, and Lexiscan stress test at [facility]. He states he has absolutely no energy and is easily fatigued, he is short of breath and he has a nonproductive cough. He denies fever or chills. He is accompanied by his who questions whether he may change his cardiology follow-up to [facility] due to proximity to home. Patient wishes to establish care at [facility]. Predominant complaints are unrelenting fatigue, short-term memory [...] abnormal wit (more content not included)... Normal [facility] Tobacco Screening.on 023 Adult depression screening assessment No [facility] [facility] 250 DO Work Phone: Fall risk assessment a) No falls within the last year [facility] 250 DO Work Phone: Tobacco use status CPHS b) No [facility] 250 DO Work Phone: CBC AUTO DIFFon 06-15-2022 BASO # 0.1 103/ul Normal 0.0-0.1 [facility] Comment on above: Performed By: #### C BC #### [facility] [address] [place] [address] [address] Maria T Canela Basophils/100 WBC (Bld) 0.7 % Normal 0.2-2.0 [facility] Comment on above: Performed By: #### C BC #### [facility] [address] [place] [address] [address] Maria T Canela EO # 0.2 103/ul Normal 0.0-0.7 [facility] Comment on above: Performed By: #### C BC #### [facility] [address] [place] [address] [address] Maria T Canela Eosinophils/100 WBC (Bld) 2.7 % Normal 0.9-7.0 [facility] Comment on above: Performed By: #### C BC #### [facility] [address] [place] [address] Dr. Maria T Canela Erythrocyte distribution width (RBC) [Ratio] 12.7 % Normal 11.0-15.0 [facility] Comment on above: Performed By: #### C BC #### [facility] [address] [place] [address] Dr. Maria T Canela Hematocrit (Bld) [Volume fraction] 39.7 % Critically low 42.0-54.0 [facility] Comment on above: Performed By: #### C BC #### [facility] [address] [place] [address] Dr. Maria T Canela Hemoglobin (Bld) [Mass/Vol] 13.4 g/dL Critically low 14.0-18.0 [facility] Comment on above: Performed By: #### C BC #### [facility] [address] [place] [address] Dr. Maria T Canela IG # 0.01 10e3/ul Normal 0.00-0.03 [facility] Comment on above: Performed By: #### C BC #### [facility] [address] [place] [address] Dr. Marai T Canela IG % 0.1 % Normal 0.0-0.5 [facility] Comment on above: Performed By: #### C BC #### [facility] [address] [place] [address] Dr. Maria T Canela LYMPH # 1.7 103/ul Normal 1.2-3.8 [facility] Comment on above: Performed By: #### C BC #### [facility] [address] [place] [address] Dr. Maria T Canela Lymphocytes/100 WBC (Bld) 25.0 % Normal 20.5-60.0 [facility] Comment on above: Performed By: #### C BC #### [facility] [address] [place] [address] Dr. Maria T Canela MANUAL DIFF REQ NO Normal [facility] Comment on above: Performed By: #### C BC #### [facility] [address] [place] [address] Dr. Maria T Canela MCH (RBC) [Entitic mass] 30.0 pg Normal 25.9-34.0 [facility] Comment on above: Performed By: #### C BC #### [facility] [address] [place] [address] Dr. Maria T Canela MCHC (RBC) [Mass/Vol] 33.8 g/dL Normal 29.9-35.2 [facility] Comment on above: Performed By: #### C BC #### [facility] [address] [place] [address] Dr. Maria T Canela MCV (RBC) [Entitic vol] 89.0 fL Normal 80.0-94.0 [facility] Comment on above: Performed By: #### C BC #### [facility] [address] [place] [address] Dr. Maria T Canela MONO # 0.6 103/ul Normal 0.3-0.8 [facility] Comment on above: Performed By: #### C BC #### [facility] [address] [place] [address] Dr. Maria T Canela Monocytes/100 WBC (Bld) 9.6 % Normal 1.7-12.0 [facility] Comment on above: Performed By: #### C BC #### [facility] [address] [place] [address] Dr. Maria T Canela NEUT # 4.1 103/ul Normal 1.4-6.5 [facility] Comment on above: Performed By: #### C BC #### [facility] [address] [place] [address] Dr. Maria T Canela Neutrophils/100 WBC (Bld) 61.9 % Normal 43.0-75.0 [facility] Comment on above: Performed By: #### C BC #### [facility] [address] [place] [address] Dr. Maria T Canela Platelet mean volume (Bld) [Entitic vol] 10.6 fL Normal 9.5-13.5 [facility] Comment on above: Performed By: #### C BC #### [facility] [address] [address] [address] Maria T Canela PLT 163 103/ul Normal 150-450 [facility] Comment on above: Performed By: #### C BC #### [facility] [address] [address] [address] Maria T Canela RBC 4.46 106/ul Critically low 4.70-6.10 [facility] Comment on above: Performed By: #### C BC #### [facility] [address] [address] [address] Maria T Canela WBC 6.7 103/ul Normal 4.0-11.0 [facility] Comment on above: Performed By: #### C BC #### [facility] [address] [address] [address] Maria T Canela GLYCOHEMOGLOBIN A1Con 2022 ADA RECOMMENDATION SEE BELOW Normal [facility] Comment on above: Result Comment: ADA RECOMMENDED LIMIT 4.0 - 6.0 ADA THERAPEUTIC TARGET < 7.0 ACTION SUGGESTED > 7.0 Performed By: #### A 1C #### [facility] [address] [place] [address] Dr. Maria T Canela Glucose [Mass/Vol] 223 mg/dL Normal [facility] Comment on above: Performed By: #### A 1C #### [facility] [address] [place] [address] Dr. Maria T Canela HbA1c (Bld) [Mass fraction] 9.4 % Critically high 4.5-6.2 [facility] Comment on above: Performed By: #### A 1C #### [facility] [address] [place] [address] Dr. Maria T Canela MICROALBUMIN, RAND URon 05-31 mALB <1.3 Normal <=30.0 [facility] Comment on above: Performed By: #### M ALBR #### [facility] [address] [place] [address] Dr. Maria T Canela PROF 14(COMP METB)on 023 Albumin [Mass/Vol] 3.9 g/dL Normal 3.4-5.0 [facility] Comment on above: Performed By: #### C MP #### [facility] [address] [address] [address] Maria T Canela Albumin/Globulin [Mass ratio] 1.2 {ratio} Normal [facility] Comment on above: Performed By: #### C MP #### [facility] [address] [address] [address] Maria T Canela ALP [Catalytic activity/Vol] 81 U/L Normal 46-116 [facility] Comment on above: Performed By: #### C MP #### [facility] [address] [address] [address] Maria T Canela ALT [Catalytic activity/Vol] 65 U/L Critically high 16-63 [facility] Comment on above: Performed By: #### C MP #### [facility] [address] [place] [address] Dr. Maria T Canela Anion gap [Moles/Vol] 12.2 mmol/L Normal [facility] Comment on above: Performed By: #### C MP #### [facility] [address] [place] [address] Dr. Maria T Canela AST [Catalytic activity/Vol] 47 U/L Critically high 15-37 [facility] Comment on above: Performed By: #### C MP #### [facility] [address] [place] [address] Dr. Maria T Canela Bilirubin [Mass/Vol] 0.5 mg/dL Normal 0.2-1.0 [facility] Comment on above: Performed By: #### C MP #### [facility] [address] [place] [address] Dr. Maria T Canela Calcium [Mass/Vol] 9.1 mg/dL Normal 8.5-10.1 [facility] Comment on above: Performed By: #### C MP #### [facility] [address] [address] [address] Maria T Canela Chloride [Moles/Vol] 98 mmol/L Normal 98-107 [facility] Comment on above: Performed By: #### C MP #### [facility] [address] [address] [address] Maria T Canela CO2 [Moles/Vol] 27.3 mmol/L Normal 21.0-32.0 [facility] Comment on above: Performed By: #### C MP #### [facility] [address] [address] [address] Maria T Canela Creatinine [Mass/Vol] 0.80 mg/dL Normal 0.70-1.30 [facility] Comment on above: Performed By: #### C MP #### [facility] [address] [address] [address] Maria T Canela EGFR-AF [facility] >60 Normal >=60 [facility] Comment on above: Performed By: #### C MP #### [facility] [address] [place] [address] Dr. Maria T Canela EGFR-NON AF [facility] >60 Normal >=60 [facility] Comment on above: Performed By: #### C MP #### [facility] [address] [place] [address] Dr. Maria T Canela Globulin (S) [Mass/Vol] 3.3 g/dL Normal [facility] Comment on above: Performed By: #### C MP #### [facility] [address] [place] [address] Dr. Maria T Canela Glucose [Mass/Vol] 291 mg/dL Critically high 74-[address] [facility] Comment on above: Performed By: #### C MP #### [facility] [address] [address] [address] Maria T Canela Potassium [Moles/Vol] 4.5 mmol/L Normal 3.5-5.1 [facility] Comment on above: Performed By: #### C MP #### [facility] [address] [place] [address] Dr. Maria T Canela Protein [Mass/Vol] 7.2 g/dL Normal 6.4-8.2 [facility] Comment on above: Performed By: #### C MP #### [facility] [address] [place] [address] Dr. Maria T Canela Sodium [Moles/Vol] 133 mmol/L Critically low 136-145 [facility] Comment on above: Performed By: #### C MP #### [facility] [address] [place], [place] [address] Dr. Maria T Canela Urea nitrogen [Mass/Vol] 14.0 mg/dL Normal 7.0-18.0 [facility] Comment on above: Performed By: #### C MP #### [facility] [address] [id number] [address] Maria T Canela Urea nitrogen/Creatinine [Mass ratio] 17.5 mg/mg Normal [facility] Comment on above: Performed By: #### C MP #### [facility] [id number] Maria T Canela Coding Summary.on 03-18-2022 Coding Summary. CD:[id number] Gh 0bWw+PGhlYWQ+AP8QTNLiN 12rtSIngP5HG0yPVJ9LCSG WYIQIUV5YAQ0zdCT3HBafE 2VybiAv RrpuvKGxHI69MPe8CFG9rM nvVVrhnQ6dsGNnA4c7HvXj CM10oK97LWkaLGRjBgJ5Pl ZpbjsgbWFy X2vzNpJemGVrTtx+PHRhYm xlIHdpZHRoPScxMDAlJyBz hRhuZW6yOk8cGHYcOUEwqR xhcHNlOiBj g7vjPCInFBieLQ1wpWeyL0 BoeII4PQRgl1v2Vy43yYC+ HUQiLBS0zCubRBfsn682Bp Lwm6sgQYI0 rYCkVBehOHR8N36tq6N2LO DzXNUaULE6eBO3fF3enTvl zafcI3HutBLqYlT9KCS6kQ BjfQ0xoMqr bpjviF6eDaw+E52OFG7BYW RUKG4JHpj8U5FfLqaljKS+ FK02QLQuLF80sZWhuKUgs5 eneLy9NvWh YEDpOAV7bFanDYghy4RjII MyK62fxUPsj8T7YHMvbKcv lFUoBaVfoQM2lN8yHDgzkl eje1dthkqu Ooxsv5hbsz18sW52V42rAY xeIASlTER7JPIlWUYajDkm rl0lvQ3sAj8+UZxwb1sdy6 hxjYu9RpCx FISbtiErbDhjLQE6w8UsCj 38C5IsxYfkm3ZyLik4ka41 xIHzs6C0tUW2LOxkJTJkuY 7xTTciTbU4 TAHjUkBnsB64jVJvJTmyUo 4fcSjppGuiOD5wVGNshjlc ESHuyP4lIJJuzUUcdQznFE 4wNTBpbjtm z669MeOvIQH9JIDxbPKxD9 ErjQ2wFwWfWGVsHGRfB0Lu pFNjBKugT461XHxcWdA3JT ZjvyRsC1Cr VBCdmWzwKaU8c4B9Fu2Xz8 SvebelKYT9GKleWKAdHcV6 UyApDfV7U8VwPik8SHNcyX mwXM9fI6Eq LDXugjynmxgllDJ3LVWvGD GwlD10cETgAJmtKs8vx4Q4 c944HHQdOJEnxT39Cl9bcM ogMTBwdCBU mE8dshdpy9zislzsOrRaEC ZgNWi4HQi1QUTzwXulUuVf CTS4QwS9YNR2tOGfuP8igZ uwujbppH9v Oyc+H39xlO3xFVB7QKG8gj nbWAJhlwCbSR75WV46I6Og PjwvdGFibGU+PGRpdiBzdH lvWP3dBwLo t3iip4BmPZwyQ1DnCKAdRM blWnn1AJJlYPR4sJJ7vZ3j TSGgDUpxi6G9aOV4T5Znqe Wfll8wo0ap GLRkAPnlT27bsRYmj8Y2KW OcnHO5XZQlrBkpWyPhiI74 Oyc+OJVwbXxll9SgIhtdc5 dmo9svfCo7 BqKmJMQpogRqhWewSGN1l9 JfUm77Z56vRPmhICOmTDMk OXWnKUNsjGvylu5yiI3pKb 8+PGNvbCB3 zVM4wW2gWQBbQsY9PUupM5 08FnZdcEUlMtntr4drd4xo iIq6OmVfNXCthnMmhLocOK J9b9HbJl17 Z46lAXfuYXRhYXZdIFVfHM DabImmvs0xkM4bOn3+PC9j e0bqbb61mZ79iKY+PHRkIH P9eCphXYgy LNXkaH7eBOufYaW3FMQqDz CvhR68oGMoYIblVw3apVna xLcmMZ9zPMGcrpwyz824Gx Dry4muFZUl fGLjZWqyELW1D45yq3G9VH HqCFMiPJO3nGH1hS4jqErz bjogbGVmdDsgdmVydGljYW llYKvlT795 IHRvcDsnPlBhdGllbnQgTm JdNLf8B0KdBsd2KCOjwTcb ZV4spHOaEFfpDn5onSzmhP jtGE1cOKNz qcttu861SyIat8lxSTJbfS FoYNwaUCT2B15jh3M7AJXg XJZhAWW6pGP2xS5smDrpfh ogbGVmdDsg agWxhEblMMqgJJyxY120ME RvcDsnPkJpcnRoIERhdGU6 FP98FH00rPHyv9J8nWW4D8 BhZGRpbmct qzsfaVL4SVDzVHZohJ62Rx 4zpFbsMi6yUIYmCVD6LKAn gTIsE7BlhD3vRsTyBLErMT CqL2WxtRZo GTwvQ812UNmwJhB0XLBdjn BtQ7SwXMYltQlcXjT0m1D3 Pn9GI0B2KN69MR37wHFpb3 X2pPV1K1Wd BYYwzpnwhyiunSJ2TSZhYJ CttQ54Rz7gpMymVa6tCVAk OJW4EZXztVAiI5NaeC2sYu AjMDAwMDAw O3EedUSaAUlqB761WTuwAv R9SYFusbIvQ6EwBOZuaPnb UxV9p9S2Il6JSUo6QU80NA 34xQDrn4W0 oNQ7I0EsYPMwpsjoocayyB B4MAObISMrlS85Ii4lhPuz Yu9mOIZjINV1PUEkwFAeV6 AlfK3eOzBi DLMqDDJmW0ZtkEFcFNpbF0 40JRcsOqE0DSGhebVwW4Po CTUgaYatGhS7y2O1Zs7ETS DfPX19HLT5 cDI4KG19HI44I4WqHtcdjR FibGU+PHRhYmxlIHdpZHRo GWjzFTXpJjBtwZrqGO0oAe 9yZGVyLWNv lZwepIJaVaCei2dvNGVoVK yhSX6zgKixU4KhtWI1FQRa r8b8Ik44R32fK9UnsES+PG RwdQB6hNM5 cQ9rXuIyGqE8WRonV885Wk TfcJBkZbjig6rxs6udtSe7 SfL4OEDbkhIemOvyVQC2r7 OoOr99W51e IHdpZHRoPSIxNSUiIHZhbG pqni3xkQ1nEe9+PGNvbCB3 nJV1oN9vPnMnUwW0HSuwH8 49InRvcCIv Paucd0hry9bmuSx1TkLaYZ UvleRqhTpxDTY2f9BdYc31 Q0AuhGavp2EvLyf8tt86xU Thm5V4cCK7 Z8JpNLPmhsubmHIqmAbcGJ 1nYKBcaaltIZSzcD7rSPXl V6d4SrSyUjL5EZjdR7Pvrc L2SJCmhOLe JRogNSK5T40va7O4ITVbEZ KnSNF5cRK7tB2yvRoginih bGVmdDsgdmVydGljYWwtYW weO935CAFt wFgtZLLhgR2kWIBcaWMkrT csPC3aOUSjbwmyJsULFyEQ YduxFJMKWGWPRoXEGT59BI 34sZQqs0N2 xKR4D6SyUHVeydbipygmcG K1RKMpNVSavF92mBOzZIec Ru2nv5E7s670WMGzSEOmyA 10Lm8tsRye UIHlxNAWnG9xcmsrh8muei rxMgWuEBNePWh7XZc8LWTf rLvlEjPvSDD1XxW4HVS2xC CrtV8cvEym krfxzE1pZgk+MDUvMTEvMT c9SHwozMR+FNCsOFA4jNbm UIcaRJEfzV0mAMSbW0a9Pf IwYwN0DTtn B8LgKBEhmcdbGl00mV7eOx MiAvO7CQxhU3WwfeN2OZIi qVFlDRroXKF7Y73sk0K0LO MwMDAwMDA7 gRA3hS6jdLnnwzszdRUalW lrfdPehOppDNvfQJkiM167 VLAioCvgSyG5QDtdIGIgMM 47NO84xJLy d7G3uKN4Y2QgCPLzynxvdm qqsPE2BDGwLICxnF08pYPe HYfgNz1op5M5h891KCAwNF PqoQ62Qs6u bNdgKLRrjJIQlG8doklnr8 qvkmvjPhDnYKMzYPb7RWk1 KVZxjCmaJbHaTWP3VnX4KF O7hTVxrW8t xPsyzyithR9tUvn+TWFsZT wvdGQ+OOMoAME2qDsfWUpu ADYehE1tFLGsI7h1YiOlEg D7KCdiG7Xc HGNbazbzXo27oM1wQtZvKr J5HYgtX3VehcB5XLJarVGw NMleKGZ0A23vb3I6DIIfFA MhBBY9wZD8 sL3lxZjdklmsfBSqkFzpbm TdmXhoLPigYXpzX600DFFq iXtlNr44bIQfiZfngvD4X5 RkPjwvdHI+ WW94RJRfEJ53cELluOHxz5 pqqYt1HwMrNVEiGAB1tWeb YYzsf4SmIVNtW86ssCPzf1 E8YXMeiFfq oLMsJjLbsHR3vN2gKRgvbh spt0gceoolBixvi9wwqf41 mZ52D02qRTkjFFNlUSQaZX UiIHZhbGln vm8qxA5tLc0+PTOrmTK8yN L8aM0oOsTiYfA4RBzhN543 SqFgyQGiAplop6clk6ukfQ e4ZlNuTOIe wiYkqVuzXHQ8v7IlGx60T0 9sIHdpZHRoPSIyMCUiIHZh jHfduo0tzH5sVo7+PC9jb2 bzqp63rZ11 dHI+RPQiDQN6hTqgQLprIV RtqL3hBRcyMpQ1AKNsHrJw mQ81qECiJAneHa3dhWlpiO rkQH8tXDCs osekj367KlUdm0keURAvnQ XoZMhcQBK7W09kl8S0JHJi GEQyJKG6jTP7rM7cpYhsmd ogbGVmdDsg jgFqbEccZBotTFrdL452VD BvvWvtRvKmhHDjB6iaudJT UI9cDncphKY+ZVIsYSY8sG xlPSdwYWRk tZ3xBDYgR9w5MeJtBhS6MM tcO2VhrhF3QWIukBIsKMFn cWARbS4mbmolg0onyhbgNn AwMDAwMDt0 CCx4QXXqrQahCkLaDPB6Vz G7MYL2vQAlsJ2ssAquqbyl qF6cSnl+RklOOjwvdGQ+PH YnSJN9iMyu WTlvHXAdwA1lASTqR8h0Ou KoEhN7CXyrJ2TsocX4ZYIx hORmAYQqhNNGsJ5zzvges0 xvcjogIzAw MAKpOMk6IGe5MYYzbGpfZx YqQJN5ElK1IPA9yNCtvV3x fBrzfudagA0cRdr+TVJOOj wvdGQ+PHRk BIS4tUxmMIhsEQWjvK2qTH NoP8k3MjHkLaF0MRtnS8Fv vsN5XWWocBGbKEFjkBIOzF 2rdxims6wp wgdiGeTtUQHjUIs7IHg5ID WywYktAgEeHUD6MjB4PNB1 tVAoeT7boFaubvoxmE1sXr c+KGD0CRI3 WP95WE68I3IqVywkiRKzkW U+PHRhYmxlIHdpZHRoPScx ZEPrNjFzlUisJP4xZc8wPZ VyLWNvbGxh cHNl (more content not included)... Normal [facility] Consent for Treatmenton 02-28 Consent for Treatment [id number] 2099 [id number]#[id number] 0CD:127 Normal [facility] Heart and Vascular Office/ in Noteon 03-09-2022 Heart and Vascular Office/Clinic Note [...] in office. He had echocardiogram performed at [facility], which was normal. He was [...] protocol. [1] patient was then referred to [place] and was placed on sotalol followed by [...] progressive dry (more content not included)... Normal [facility] Comment on above: Result Comment: Elec tronically Signed By: Camilo STARK, Kushal Galarza\.br\Date and Time Signed: 03/09/22 11:29 EDT Progress Note-Physicianon Progress Note-Physician [id number]#1.0 0CD:127 Normal [facility] Coding Summary.on 02-10-2022 Coding Summary. CD:[id number] Gh 0bWw+PGhlYWQ+GN3IPUAuY 07uqXSqiX3BF4lSLK5DLVW SPFZLVH3JMN4gcGM7SPdyP 2VybiAv SeipjCIcMB04QEy9ZSD3iV wcXOsecA1xbVFvY5i3OgPt VT86gD24MGycZSQeIxF2Ar ZpbjsgbWFy F9sgZaQvvDMuOlm+PHRhYm xlIHdpZHRoPScxMDAlJyBz wTbeQN5nWe2cXJHmNGAdxX xhcHNlOiBj d5wiXHEfYNhzSB1wbIxzS2 VzlVM0NIEbl5e7Aj71oJZ+ PTCxSYI9oWrlHQrct473Ug Ueo6gfMQR9 dPFuFMdwVMC8V35vt6E1TC KqJUUjGRD3vGW2lA8bhDnu hdqzK4KxgCHmNuC1XFQ8gU BjhA5xyKnm tnpssK9sYlp+D67PGH2PTF RKTD7SNlt0K6IdYwfpfDZ+ VD90QURlJB14wYPwoXPbo3 ekdJe5QvZg LMYfAMU9mFrqBLnxk3SiZP XdM65lmHXys5Q0CUQbyDml bWRjGtHyhIL3vQ5iZYdhxj nec4zcgfki Hiskt5rgly02lP08V41yLD aiFFYsBSG5LLCnOBXhiLmr jy1bgL5wKh6+RSlvu1rkp6 yssPk4YwZk DWBtuoJuwXcpMJY8z3YmFq 21M0HjvCgco5PyPsh4zs24 kTNrc8K6aAG2KTvwFNVwmT 3oKRsrCtK4 TTWnVtHkcW06uFAuGZkvVj 9mtAvuuXptWD1dMAHmpeac EAGqsS8kWVOudIFbbVgfXR 4wNTBpbjtm m060SvUqNCZ5ZSDpqMMxX2 XcdB6gPxLyIFOoASRqO7Un jJHeBJyaP726IXicVsN4ZL AedqCgD0Vf IOLjoObgMtP8o5U2Oo9Hi2 NwvfsyGCV0ZRweULA2UkRu WaRtGtL8V3ZqUca0PEGjiN tpZZ0qH7Hj RYTfyalrldvqzYS3LZTzUP QlsL05sNJqANclMt3th4F3 l486ZRByFSTgaK34Nc9ugS ogMTBwdCBU oP8kkclrk4anrlmoXcBmLY DqZCz5YFt7VFNyeKflDaJs ZFO4JeV2TTL4oHYcfM7fyZ vligmkjJ6s Oyc+M82otR2qASP5TBW3pg gmOZKmteApAL48GZ62W7Sa PjwvdGFibGU+PGRpdiBzdH loXQ1dKnVv u5cbu1NmBPjvQ6GfKXCjXN gxFsn8PLGuCPX7uJI1oX1n LSPmCChyy5K1mXI2A6Ezcl Ffqi7xa4hm OUOoIPcpP03tcNXme0Z7AV IejPV5HUSrnJfkOvZyfW30 Oyc+FVYsyAhsh0CkQqsgr6 rbn4ulqWe5 PqSlFPCibcMqsWysNDT8h1 FsMx79K25vFCwrWFCkWIDu OFWtLQLfkMmtbd1naU5dUm 8+PGNvbCB3 uKJ1rY2pXLJdAqC9GRyxB3 65VuWkmMDcAodwk3uip9yy jMj8LfWpTIGlmyXllVegCJ Y1x2TsLo23 X08jKVcaZIKmIYGoZLOvHV HpuBbopc8zeN2qBu8+PC9j o5ljgc57iW67sMK+PHRkIH G0aRjtMKhq VTDyxQ7rNOnlCiK1PQArTq KzqV67zNTqDHncEy7igFxw mZvyYV6qHHDrmabnb450Om Xby3cmZFMk hTPxVPkeFKY5O65sg0M2KQ NjICIqLOJ6tIW4oT6gzYii bjogbGVmdDsgdmVydGljYW imLGefE731 IHRvcDsnPlBhdGllbnQgTm SsULx8Y2AxNjl5GKBslOul PP5xxARwEYswPu6ikNyvuY vqEF8pBWKk qryjq853VoYkl6bxWBQcbH BuWMdyKQE9X39kw2P8HTAs JUNoQPU4kMA4wL8anEytja ogbGVmdDsg dyNmvUpvXVhpGVmsD923MF RvcDsnPkJpcnRoIERhdGU6 CI02AH49kQMso8L6vMB5L5 BhZGRpbmct eldbiEJ0PUTyDAXooH07Yl 3zoFkcRd4iAAEcNBI6GMHn uZFzV0UfxF7nPrEkGFQgVX UyC1HjkSZe QXfpR209SMklYyI3DLSzze DdS3NcBOKjgWiyWkV2n8P0 Tq1JV0U0LP32XT22mIAdp7 V7sCH4T8Ez HDAkrbegywhxwAE1WFRhID BxlM58Vq1uzPfzFk1gXEPh VGG7QNVthCRlF0IaiI5mMo AjMDAwMDAw Q7YfmMSjUUydD960OWrsNc Y3RLFwovCpI8PyXXXazLrm PbF6a9N7Eb1OTHp7XW34KB 81wAAxj4Y2 uRT9J4UsWOAthcxjqgkerU N9GHYhIANkxI53Yo3wtIxo Lm9kLAQgYAH2OJEzqWRuG9 WbfM8rRlMa AEUvVVWkF6TkzBZzZRvwY0 13PYknSdT5CMKuxsLyS9Em XTLjiIjiIsZ1i3D4Dv4YHP WrAG87QNV4 kIP8RX94ID69U6CsKyaazL FibGU+PHRhYmxlIHdpZHRo ITygPZHaZnSmeXzlHL8cTm 9yZGVyLWNv sXmhxIFjHxKez6qwFKKxHP dxSN0enOpqS8MkjJU0NHOq r1h7Qp51I40tV4HfeVC+PG QcfEF9mDK8 qI6rUjAgUrU7MHjcV676Rn EwqTLsSzczf1zxu5flwNx1 XkY2NGEkwuNqkIdzIGM3y3 JqJe54K57k IHdpZHRoPSIxNSUiIHZhbG qfaw8msV7tYb1+PGNvbCB3 jOW7sL3lUyUmDxF1ZUkiG3 49InRvcCIv Qbppr9jdt2nnnLr7IjStDP XqcwIheCbeQBI6k7FiIm62 M7FzlPkns7OjEli5kk36yT Osl1A4fVF0 F7AkAQYthbvlvDQkpBbjWT 9xATTxswqnKBSpjQ6iUZWc O2q6MvSxOsF8GHsjD1Qscf G2VLOpqFDb BAcfSLX9Z69uo4L8HXVfUY SmZPD2yTK7uB5kpWgmbhcq bGVmdDsgdmVydGljYWwtYW koN842VROs aGbuTPZquX6pPBIbvVWpcZ lpTY4iPHPqwdvpEkJCYkBF CcbiEMGREDXZDlOEQS93KU 07tNZxf7R8 eRK4M9NiSPOrbhhnrbrczJ R0SIVnPIVaqO94eJKfNJox Xn4pf2H5z181VMTrTLRfnK 00Uv2dkRlw TUTfuRRPcF3tbzkck0vatb xfGoEsUNEeNGg5AMr0PHFt kBkxQmQlQPW1DhY4QHO6bX RokQ1xpSyw rtipiY9tGzs+MDUvMTEvMT r4BKtmdUB+LQJqXRT9eRaj MXxgZKJeoP2vVUAwO2t8Mf DhGtR2SJcp F6TfFBInnvhbZy33cA9hLk ReJgH6KAmyE0UpvpK5RVWy iATzHTcwMNL2O33xi4Q1UD MwMDAwMDA7 jFZ7eQ4wkKcojuruvNKuqT bausBkvGgtNDgmRAdzC676 PYFklQrlOzS7VPtsKWGqVG 11XM01gGKo s5T0ySB7B7HjYZRpuwmgcv uiiDV1PRJeMQHeuC38qMWm IPryYx7sz3R2j949WTUsOX VddJ48Kt0o uRgaBPGjpASTgV2exgkaf3 yxtszfLuFgNJQxEIo2SMe8 CYBhfZprXcZaTNI9UmW5RN W3fREtkQ4v pWftbdtrfQ5eQbm+TWFsZT wvdGQ+PRDkKUF0oEdsNBie QDTqjP1nHBOgY4f2PoKqRd B2YZijN2Xq NYQctlecKv23tC8hCuYnBm A4OMcvR9TftgP0PHUbnTHo CVrsMWZ9O12ad0J9VQDkCA PmTTM3qKS7 qU6jwDaijlxqlPVptHgzwl FzyOnmLKdfFCxlV198HTHa cDsnPkFtYnVsYXRvcnkvU2 FtZSBEYXkg P9PdD3OepOsvcJR+PC90cj 39F9JwXpvnMdn8NMZxUUR8 cSG9mC6fUHZuRYpfr1I4lJ Z9I4XehpNy wj1qo4dcBMJqIWiaA18ofQ Gld5E7UUIckHV7LUUhfPko KfFzzX70Tdf+PGNvbGdyb3 CaAxjlj3kj s3gegVs7VkEoRBGeofDcuR zpPHE4f9DyJi80U73eLCyt ZHRoPSIzMCUiIHZhbGlnbj 3lfM3fAn4+ TRRclNW8rWA2oT3dMiHyDe X6XKgnM359OeYqcEBaEfql s0gyn7zupTe9UeHmGASnjz FsaWduPSJ0 p1NqEj75E3SnhKafo8DuBn y2zg46zUHib6B0lRD2K8Ol QGXauhtruSDfbBufBI2yJC BpbjtwYWRk kJ1pYVStG1a2OhNdHoW3KG lwA6SmsnR4YALukWEuLSZp lONPlA4wusiyi4elarhyZn AwMDAwMDt0 WGs1ASSucAtrHpMgOUP8Ly C8AWA8tXBskU2siThckhvl uH5bUnm+FWk9c2sfmOYiVS 3daSA3JJ58 NW57bNDcf1N5sDX8S4XnNX UnrlbcrvirhZU0AVOpVTBc jO96Yc0jwAcqTm7oAISvQE H1FXGvxMDy O3BrlI1zLsVkFGIoLGHfQ5 JswHBsJGmnU533KKczHdC0 VKEcrvRiH2CbQUPuaUjtWb O3p3M6Fh7I HM34ZI52SE37yYVgi7V0mI W9P5HbJEUragdupndvzWQ1 MAMoFWNzfD12Gn4qkVlkWj 5oDBKnXBS7 DLMtyUXcA9OjdT5hQwCuPV VkQEKuV8KxeYPlACwhM379 WVgmBiR9DFTsjeXpO8WuHI FsaWduOiB0 n7C0Ku0FRm67QX64VT12vP Rxy6H9hMP9R7NvEUDvfmui javyoET4AUAlIYJfaW36Fd 7yvNvsLr5g AKJnSVW9HYJfqXBaI1CfuA 4uAcQkSTCySWDvM2YuvIPp CQpmO258FWryCaM0ABUjwz UbP1DhAYRd jStxSrX3r3Y9Sr2GSGtjwd v5A1HzFqkpmQQ+XA11QYVu CZ27gABdbVTos9nhqEx2Sj EwMCUnIHN0 eWxl (more content not included)... [facility] Consent for Procedure/Surger yon 02-09-2022 Consent for Procedure/Surgery [id number] .00CD:127 [facility] Cardiovascular Reporton Cardiovascular Report [id number]. 00CD:127 [facility] Consent for Treatmenton Consent for Treatment [id number] 0CD:127 [facility] Inpatient Clinical Summaryon 02-05-2022 Inpatient Clinical Summary [place] [id number] Clinical Summary Person Information: Name: LORENA CAMPOS Age: 66 Years : 1955 Sex: Male PCP: BEENA BENÍTEZ MD Marital Status: Phone: [phone] Race: White Ethnicity: Non- or Language: [place] Islander Visit Id: Visit Reason: R94.39 R07.9, I25.10 Speciality: Acuity: Enc Type: Ambulatory/Same Day Surgery Med Service: Surgery Arrival: 02/05/2022 06:31:58 Discharge: Dispo Type: Address: [address] [place] [address] [phone] Provider Notes: Diagnosis: Problems Active Hypertension Acid [...] Follow up: With: Address: When: Kushal Page [address] [place], [place] [id number] [phone] Business (1) 03/09/2022 11:15 AM Type Location Start [facility] Cardiology Follow Up (FT) FT.Cardiology Clinic 03/09/2022 11:15 AM 03/09/2022 11:30 AM Confirmed Patient Education Information: CV - Cardiovascular Discharge Instructions (CUSTOM) [facility] Inpatient Patient Summaryon 02-05-2022 Inpatient Patient Summary [address] [address] Patient Discharge Instructions PERSON INFORMATION Name: LORENA [...] Follow up: With: Address: When: Kushal Page [address] [place] [address] [place] [address] [phone] Business (1) 03/09/2022 11:15 AM In the event that this physician does not participate in your insurance network, please consult with your insurance company to find a nearby participating provider. Type Location Start [facility] Cardiology Follow Up (FT) FT.Cardiology Clinic 03/09/2022 [...] ti (more content not included)... [facility] Operative Reporton Operative Report SURGERY DATE: [...] an exchange length J-wire. Next a 4 Palestinian sheath was placed without complications and flushed with Heparinized Saline. Next a 4 Palestinian JL5 catheter was easily engaged into the [...] exchanged over a wire for a 4 Palestinian 3DRC catheter. This was easily engaged into [...] exchanged over a wire for a 4 Palestinian angled pigtail catheter. This is easily engaged [...] . Kushal Page M.D. kendra Dictated: 02/05/2022 [id number] Transcribed: 02/05/2022 [facility] Comment on above: Result Comment: Elec tronically Signed By: Camilo STARK, Kushal Galarza\.br\Date and Time Signed: 02/05/22 13:41 EDT Patient Education - [facility] 0 02-05-2022 Patient Education - Text [place], [place] CARDIOVASCULAR DISCHARGE INSTRUCTIONS Diet: ? Resume [...] you are interested in smoking cessation, contact [facility] [place] [phone], ext. [phone]. ? In the event you are unable to reach your physician, please call Robert at [phone] and the searchlight operator will assist you. Seek Immediate Medical Care for: ? Bleeding: Apply continuous pressure to the site and Call 911. ? Should the arm or leg become cold, numb, blue or white call your physician immediately. ? Signs of infection are redness, warmth, swelling, increased tenderness, colored drainage, fever or chills ? Chest pain ? [facility] Coding Summary.on 02-03-2022 Coding Summary. CD:[id number] Gh 0bWw+PGhlYWQ+ZR2VXYLnO [id number] NQLREMG8YHZ4ahZS2PKlxT 2VybiAv MvbrfFBwBT44DOg9PYF8qB uaLOfvbJ4lcAXyM8j6IiKt PJ68sZ89JXtfRZNpYqD4Mp ZpbjsgbWFy K5unGeCumELyHht+PHRhYm xlIHdpZHRoPScxMDAlJyBz kUfhXC7fVo0vZJVhGTBsjQ xhcHNlOiBj b2kyJOEvVXdjKT1nkPhsX7 HmmKS9LPPzo5y9Bl21uRB+ EBXdEZT7aJlcDBdif632Zr Tkn3zoPRO7 eUTsKXcdGDP0D31dx2L9UC EtJGXjEYO2aLF8aQ7piEed mpjgV0SmfCGzCuI5XTM0oV BkeI3gcQvr ibgdrI4zAdt+W94BOB5KXA PKNM0DPzf4A0KuSzuyyIY+ XS88ECNkEI24sMHvfNKso6 ptpFl1NwNu MOEhRET1qDupHRjuz8PiIO DzK75qrVHkv3I2PVQbcIvg mZHbLqXndVB7lH1vXJeods osc4vraccv Yedkb3wuzj10gD93F88hXL djDYEmMRR0WIUrZBSraQgu yc8asF6wFv9+CQjce3jmh0 gyxRx2HwQb GQPzafRsfAmxJJV5v0VnDm 71K8WvnGomh5SpKhl5yd30 qCNim2P6pPC3IUoyVYVszX 1xRMbeVyH5 YXPqPgDvnW86uQXhYAisOm 9xyWmmlMifGO9lCTZkatox WYBsnF7wIRAeaMYhbDuqNF 4wNTBpbjtm y503DfZhUYF9YQXicXOlM0 CncB4bCuLaTCCcNIRmY5Vj nYXdISsiO053QEmpJiX5KD GczvPlI6Yr RSWptLyaUaZ8u4B2Sx0Ed4 XssflqJRB9HYonKOA6WjP8 UhUcWaD8Q2GtAqa1UIGkmD kuAG0sL9Qi BGFtxfbastfrzDY9WOZxXQ NmuY88oDKySHanCr0bs6D9 k685EYAgMHLuhH61Wy2tyZ ogMTBwdCBU eC6iashfj2qzxmhxUqDaJP NdECg8XOv7ZOBjyEuwCyEu UYX5VnK5KEW4mVWhpC0ktA wcqadrbK9j Oyc+A40yjE0tRPR0GTU2dn uuNERhjmThZI74DW65H8Nx PjwvdGFibGU+PGRpdiBzdH feFR4jNmZp k7mmf5IbHFzfG1FsUVFaYY lhPwj8RZVtGKO6eCM6lD9w WNCuXGtdg0U2mYX1N7Rjgl Rbsn5ci6xq PVTtIYytZ84plBKch7E8SC IqhLA2EPWgdBotUhSsuQ93 Oyc+PYOafJltk5XeEhjzq5 ujl2vkpNu5 ArAfWSVigaThjBbtJBL5w5 QfCi56Y37jNPvcJQJiMACy YMWuVATzkIijdl6riP0sAt 8+PGNvbCB3 zHO1lM2bYEWqFkU0OUwzT6 17GkCloBAzNjxhc4mav7ee aBe3IiSsJOZajmAayNscNV A9j9IbHk07 L60tCOsnEWBiYZTwSVVyVJ UwoEexfv7mwC9qNm2+PC9j v1gmzl60lY84iJN+PHRkIH G5gLqtRKoo NBAihD2aNTbfUiM7VBWoYf WzoO41vOZnSIuoJt8jxCbm tZlxEY1zWYYqrcpdr164Xj Oak1ylQJLi dVCpREtqBZD5X14dz4O3UV XtNLTxBSY7eEI1aL0svLhz bjogbGVmdDsgdmVydGljYW jeWEmxZ317 IHRvcDsnPlBhdGllbnQgTm GhCHz1W3GdDcn5NKPlcZop ZV7agWAcTNdwFt2fdFfnmM azRU8lEOXf fuguu862MgIar2gfDXNdpP ZnFRrtDYI0X70jw4X2EXGy SGSmYHM1mVS4mD5ctNygzs ogbGVmdDsg joOzqXfvIYdvMKmnZ252CM RvcDsnPkJpcnRoIERhdGU6 IX80HI92iYBxs2Z7rWT2P5 BhZGRpbmct ojtarRV7SVDeDVHvxG51Hw 4sgHipXx0aQQIbGAG5UPQf tBViK5EulH8rRwOdTPOgCP BnI4EotIJg NWtdT926XAwrVlK9TRBkwr NpZ8QxSDXbySzdKpY0f3E2 Hk6MQ2A2SI81JV72cKLtd7 A6tAR3L4Rl HQGhgxlixhhcjZP3VDOrIT KhhA31Ir4vpXdbTu3fIJSk CZG4JPMdrLNiF4LqeH2qZd AjMDAwMDAw A2NldDEeMFsdH231BIkySb N9UUQqdlVjD0WdVJOieXva TuK7r3Q2Cz6HARh7HB14TW 52qKKog9E0 oGS0E6XcLMZvcfiejzipuM T0LUXgVDGcrZ31Ln4zkHmx Jt6rGHAtTQT4DRUwcYXrL7 JpyY4zJbGd HUPdRTLfT5LyzYFsYLwsF3 11WXhbCaV4KQUbfmUtK7Uo VMNcxJzcDvV1z3H7Gy2SXU QzWJ51UUR7 eGB7LL50PE77J9IdGdofjC FibGU+PHRhYmxlIHdpZHRo WJdbCYQvVsVpzRvaUB5wBz 9yZGVyLWNv bQsivXUbRrDvu0npAYUaXK yeWZ4pjBweB9TsdCW4URFx p9c8Oo88Y54dB9ImzIR+PG XjoIC8oBZ4 nZ0pQiYtXsF2MUgxO544Tk UagDHpHoytg9duy0tpeEj5 WvD0ORYnegIyqHxjNEF4r9 UnHf09J83z IHdpZHRoPSIxNSUiIHZhbG avms3noD6hWe0+PGNvbCB3 uZS9hF5vRdQaXgM5QPdfX9 49InRvcCIv Dzwvn0guu3dbvPd5PuGsBL TlozLqzYlcAKW7u5GyHb38 G3TlrKupg9XaXrg4ga39xK Mbk9P9tWB5 H6RuNGQiycldoZGoyPjkUG 1dPESaogfuOSJjaH6uSDQj C0x3QxKfDrY0KHroY2Oyzv L5QBGmkVNv KUvaIZY7V33th3E7CKWiCM PbVPW5oEV8zZ4xyDgazott bGVmdDsgdmVydGljYWwtYW itX435HCEp qOfkTPJwwQ4xRDLcxCUduX smGU8rKSFuyqmuQtFWHuJZ IuzbYUNVOXJYWyZWUH37OJ 68jTRqk5X7 yFV3X7OxIGBwfwrmooxpgQ X5CCXkEQJlxF45kHFkQTvu Hq8nr0X8x829JFWnTDMbrI 15Vp8ogGba BSBekWAXfK1cuaagb1hrst kgIhYgKTRbFPc7EIh4NIUq hRjkSoToYUP5GiV6LIL1zC PbpF5xbMaq vmcwfI2xRaa+MDUvMTEvMT y5NZpyiUA+RQZwGDC0rPsq SWanHLCyrT4aOHCoQ5e3Gf VlFwO5JQtq Z7IiOGCpqbvwVo94gK9oAj CcSvW1RVdiE7KbiiL9ZOGo iYSxVOvzIDL5H17aq3B3FN MwMDAwMDA7 pIF3hP9vnEaqfigyuPTvxZ pabqTutWclKAopCQjtO818 GCWmjDxpPpS8GLxnIAWeCY 06DL26vCFw h9O9pYV4A2CcVXNtcdelwo grqAJ9HRQhLQBstK89jRJo ZJplIg6fo3J6p418NROzXD WqrA90Ec2d zHskFXWbtRWAjY5ojtkjs0 pkfegxBtByYCXaAIz5SHo1 RSVgiSdgPoNhEOY1JiD6QB Z2oXOrmJ2b mYkpscortQ2kWqa+TWFsZT wvdGQ+UQOpYNA7ySdxGYtc RRStuC4aPCXrR6b6PkCiXv Y4SIhjN8Wu MDWzgsfhIj60iL0oSwLpAt Y2SVbkK1JoztD7LJNnwENv YJohCDF8B95rb1K0ESXkGR NvRFQ7dAM4 zA8stHfszlhtdACxhOkxzi GtuHexTLyhBRnoV220QSOz sVnnLg88dTIuqSrdmwD9Y0 RkPjwvdHI+ WW50ODJfAA43sXHasZRuo3 jcbZj0OlDnYTUdBGE1dDcx BAltp3AuNEQcJ61gsVMgt8 G1JSRowLln eUYxTjXgsIK6fM3qIOtuhk xjg3eiwzteFmhbl3ipmj42 uC36X27jRMghVUNwGZZzBK UiIHZhbGln am2naG2nDz3+YXCvoMK4xY T6cR5qXbKuWaC5UJfvU231 IqZnwWInBzioi0hte6bpeS i5EdJrPEGe veLapNboRGQ1x7EyKe95K2 9sIHdpZHRoPSIyMCUiIHZh rLdjet7qpC2pJq4+PC9jb2 jhmv77oL18 dHI+EQLxYNB2pHabCExhYQ BnxG3nSHyoXpC2NMOwKwBf wM22iPBhGJsdTy9ojUdchJ bjIP2oLLJj gqctk970OqFyz3seTYMrfT GeOCfeJJZ5I11rf2V3JEDr ICLoFQC3lLO7xT9zcExpwi ogbGVmdDsg upSbgKjhRFlaBNxnT869JZ FdjJyvEqFstQAzF1mikxKN UL6yLwvscRJ+OUUuNML4sS xlPSdwYWRk eZ7qCSEwE8v0JvCxZgS8VU upP4BawbK0MXAjwHQsWVSz bEENtY3tthzyv9umopccPf AwMDAwMDt0 BHu5QORqsVxcLeMbVND0Xn W3DUF0mBRckH8ycKpzuruh lL4cBet+RklOOjwvdGQ+PH KnQDB5pSti RHdvEQDnoW7vVTNmZ6z4Ds OuJqL0DYoyB3MrxyN2OFSf uMXkCINitJTIbO4cfxmjo1 xvcjogIzAw UKRdGZp1ZUs5VKPmwYnyKp YsOQH9CjJ9FBO4sSEqkH0b gPyayfoskU8wGyf+TVJOOj wvdGQ+PHRk LAE2xFpjKCkhUZFhlI7vCG IeD3g4GgOnLiK9KNjoY2Eq hjN7JHEwyECpNSUjaOEJzM 7ilwqwk4xc ofwiSsEmARFpRLe0GZz1WH EsxRpfDsEbBRZ9WlM1IDO6 zEUyxH3toHpdkpcqmP7uOm c+UQW7LYL3 PY31ZE32X5MtIaybkHHscM U+PHRhYmxlIHdpZHRoPScx KTRjGeGskHxaAM9nIy9nQY VyLWNvbGxh cHNl (more content not included)... Normal [facility] Outside Recordson 01-29-2022 Outside Records [id number] Normal [facility] Auto Diffon 01-28-2022 Basophils/100 WBC (Bld) 1.0 % Normal 0.0-2.0 [facility] Comment on above: Order Comment: Order Added by Discern Expert. Performed By: #### 2 059830, 4040400, 2110490, [id number] ####[address] [address] Basophils/Leukocytes Auto (Bld) [Pure # fraction] 0.0 E9/L Normal 0.0-0.2 [facility] Comment on above: Order Comment: Order Added by Discern Expert. Performed By: #### 2 089447, 7603160, 3521448, [id number] ####[address] [address] Eosinophils/100 WBC (Bld) 3.9 % Normal 0.0-8.0 [facility] Comment on above: Order Comment: Order Added by Discern Expert. Performed By: #### 2 275340, 9663971, 6700717, [id number] ####[address] [address] Eosinophils/Leukocyte s Auto (Bld) [Pure # fraction] 0.2 E9/L Normal 0.0-0.5 [facility] Comment on above: Order Comment: Order Added by Discern Expert. Performed By: #### 2 878449, 6780536, 9104002, [id number] ####[address] [place] [address] Lymphocytes/100 WBC (Bld) 27.4 % Normal 14.0-50.0 [facility] Comment on above: Order Comment: Order Added by Discern Expert. Performed By: #### 2 929986, 9395993, 6434057, [id number] ####[address] [address] Lymphocytes/Leukocyte s Auto (Bld) [Pure # fraction] 1.3 E9/L Normal 1.0-4.0 [facility] Comment on above: Order Comment: Order Added by Discern Expert. Performed By: #### 2 882183, 9845908, 0814317, 85821132 ####[address] [address] Monocytes/100 WBC (Bld) 8.1 % Normal 4.0-14.0 [facility] Comment on above: Order Comment: Order Added by Discern Expert. Performed By: #### 2 231761, 4110199, 0165440, [id number] ####[address] [address] Monocytes/Leukocytes Auto (Bld) [Pure # fraction] 0.4 E9/L Normal 0.2-1.0 [facility] Comment on above: Order Comment: Order Added by Discern Expert. Performed By: #### 2 830815, 5431593, 1490934, 40895193 ####[address] [address] Neutrophils/100 WBC (Bld) 59.6 % Normal 36.0-75.0 [facility] Comment on above: Order Comment: Order Added by Discern Expert. Performed By: #### 2 120064, 4035243, 2468313, [id number] ####[address] [place] [address] Neutrophils/Leukocyte s Auto (Bld) [Pure # fraction] 2.9 E9/L Normal 2.0-7.5 [facility] Comment on above: Order Comment: Order Added by Discern Expert. Performed By: #### 2 041437, 4346091, 1489577, [id number] ####[facility] [address] [place] [address] BMPon 01-28-2022 Anion gap [Moles/Vol] 15 mmol/L Normal 6-16 [facility] Comment on above: Performed By: #### 2 629721, 5275747, 2505543, 49969171 ####[facility] [address] [place] [address] Calcium [Mass/Vol] 9.2 mg/dL Normal 8.9-11.1 [facility] Comment on above: Performed By: #### 2 375104, 0884081, 5390154, 30572036 ####[facility] [address] [place] [address] Chloride [Moles/Vol] 100 mmol/L Low 101-111 [facility] Comment on above: Performed By: #### 2 361144, 0040673, 0098285, [id number] ####[facility] [address] [place] [address] CO2 [Moles/Vol] 24 mmol/L Normal 21-31 [facility] Comment on above: Performed By: #### 2 904856, 3726479, 3698962, 40055069 ####[facility] [address] [place] [address] Creatinine [Mass/Vol] 0.8 mg/dL Normal 0.5-1.3 [facility] Comment on above: Performed By: #### 2 970204, 3932748, 5382374, 37611348 ####[facility] [address] [place] [address] Glucose [Mass/Vol] 260 mg/dL High 55-199 [facility] Comment on above: Result Comment: If t his glucose result represents a fasting glucose, interpretation should refer to the following reference range: 55-99 mg/dL Performed By: #### 2 312930, 5594006, 4022105, 40307929 ####[facility] [address] [place] [address] Potassium [Moles/Vol] 4.4 mmol/L Normal 3.5-5.3 [facility] Comment on above: Performed By: #### 2 899853, 5445406, 2314976, 85144078 ####[facility] [address] [place] [address] Sodium [Moles/Vol] 135 mmol/L Normal 135-145 [facility] Comment on above: Performed By: #### 2 400700, 2809328, 4049392, 76789404 ####[facility] [address] [place] [address] Urea nitrogen [Mass/Vol] 13 mg/dL Normal 5-21 [facility] Comment on above: Performed By: #### 2 051182, 2022037, 1908601, 20848148 ####[facility] [address] [place] [address] Urea nitrogen/Creatinine [Mass ratio] 16 No Units Normal 10-20 [facility] Comment on above: Performed By: #### 2 580398, 6996749, 6408914, 00297652 ####[facility] [address] [place] [address] CBC w/ Auto Diffon Erythrocyte distribution width (RBC) [Ratio] 13.9 % Normal 10.9-14.2 [facility] Comment on above: Performed By: #### 2 678469, 6039962, 8565962, 63520660 ####[facility] [address] [place] [address] Hematocrit (Bld) [Volume fraction] 39.6 % Normal 37.7-49.0 [facility] Comment on above: Performed By: #### 2 893174, 8543451, 4125362, 88927551 ####[facility] [address] [place] [address] Hemoglobin (Bld) [Mass/Vol] 13.5 g/dL Normal 13.5-17.5 [facility] Comment on above: Performed By: #### 2 957297, 2931788, 4653842, 85868189 ####[address] [address] MCH (RBC) [Entitic mass] 30.7 pg Normal 27.0-34.0 [facility] Comment on above: Performed By: #### 2 021387, 3606807, 8153713, 16120681 ####[address] [address] MCHC (RBC) [Mass/Vol] 34.2 g/dL Normal 31.4-36.0 [facility] Comment on above: Performed By: #### 2 858787, 0454551, 0604200, 64433750 ####[address] [address] MCV (RBC) [Entitic vol] 89.7 fL Normal 80.0-100.0 [facility] Comment on above: Performed By: #### 2 233393, 6796738, 4691707, 68839199 ####[address] [address] Platelet mean volume (Bld) [Entitic vol] 8.9 fL Normal 6.4-10.8 [facility] Comment on above: Performed By: #### 2 313039, 9468918, 3677111, 02165112 ####[address] [address] Platelets (Bld) [#/Vol] 153.0 E9/L Normal 150.0-500.0 [facility] Comment on above: Performed By: #### 2 362063, 8513721, 6641990, 45625936 ####[address] [address] RBC (Bld) [#/Vol] 4.4 E12/L Normal 4.3-5.9 [facility] Comment on above: Performed By: #### 2 859588, 2958049, 3535518, 08067853 ####[facility] [address] [place] [address] WBC corrected for nucl RBC Auto (Bld) [#/Vol] 4.9 E9/L Normal 4.0-11.0 [facility] Comment on above: Performed By: #### 2 024241, 4071069, 9392827, 17029297 ####[facility] [address] [place] [address] CHEMISTRYOrdered By: SYSTEM SYSTEM on 01-28-2022 Anion [...] rate/Area] mL/min/1.73 m2 Normal >=59mL/min/1. 73 m2 [facility] [place] S GFR/1.73 sq M.predicted among non-blacks MDRD (S/P/Bld) [Vol rate/Area] mL/min/1.73 m2 Normal >=59mL/min/1. 73 m2 [facility] [place] S Glucose [Mass/Vol] [...] 10 - 20 [facility] Remisol Coding Summary.on 08-31-2022 Coding Summary. CD:[id number] Gh 0bWw+PGhlYWQ+PS0KWBCpC 11ngKDdjQ1EZ3yARJ9VAPZ JOKPFJP7NMY1uaXB6GEgqV 2VybiAv JiojbCUgNE43DOk4WHO7zG gwUFsidR6ohFZjE8g2PqFf QJ75nH50IAeyIBPfPmB7Oo ZpbjsgbWFy V2yxFqLmcSQwLzu+PHRhYm xlIHdpZHRoPScxMDAlJyBz pPpyQV8nQx1zRVNwDSOhbN xhcHNlOiBj m1nfUCVrUYlxOA5jaTwiD1 JrvSE3VAZas7f6Nx50tMM+ NQZgATO2iDrlKLczx478Mr Sqd1gfBFP9 cEVdWBmqZYD3M36pm3F2RJ FiBWBqKCV0cNI3oP1beYum dbniO3NzhUShQiX2NRI3aO ByqK2iiQki nksnxY8vEbn+X45WBA9JFJ NOMP6UPix2K6BvHgvuxAM+ BL04HRAcVK18tHIhpMCiw6 iovGb0UoSo DFXuVFS6gOllVBchq0SdAF AsQ48pnOXfv6X8QQPwxRsf fVYpGvKgwAS2cH8uKYrztb wln9twiien Bvfyq3gyqj45yS17M69wMP yiHXSaQDE5ZVKbLPIvhRno nv9efO3tRr6+URgow0rzz8 evzRk4YkCc DSTmkjZhsUhhKQI5s0TgZq 10W1VptBili2UsTzd1wx52 oCWlg5F3xWI8COcjONCgyJ 4bDRvaNuP3 QDCrQsDkgE19cPBxZRoqZt 4ocDitzMgrUT3gQDCtrtff ZHPctX7lDIRpvRVvvDktYV 4wNTBpbjtm q148UeQaWZC5PWChlIUxP5 VwdI9gCnLzCAWhNZXrR3Pb uAMjRPjfU287AJsrRrB1RB IewyIiD4Xb PKVtsArnAvO4u2L9Kt2Ax9 VlolkaFLS4DRtsYMR3EsSy JgHcStB3B9UnWyj1FLUhrX ppLO7eC9Wa XWWcwgsdsdzcmUN4OEAkHN NxgX13lTTfCCmgWc9op5J2 c895HWEgGBJqkG26Vx8jeX ogMTBwdCBU mX8vgdzvs9ofjxqrYiAaDH QvRLw2XLx7FULphXogZsPj GAM0GuC7FQV8sWOqfE0hsI aogmzrsJ9r Oyc+I22xjA5uAXE2SNX8jj omBGBniqIuMB44IS46A3Fi PjwvdGFibGU+PGRpdiBzdH yxWA6tKkDb f0zyl9DnSBjeU0SyIWBxTS pdPcb4GKGeCBM8oRZ0iE2h HDZqIBplz6J6vQA3H3Gxxm Ezsp5vk8rm QJXbYVftR59vpVCjv6Z0MR VskPG2HALxbGhqHtYbqZ47 Oyc+GNJsaVfwq7KgGktrs5 lac2lnjKs2 UdKdIQRoclBroHxjVKT8k9 QgSs00X09dBMpdXBQuTQUe NXSlBTIotXiijs8clE3cPo 8+PGNvbCB3 yRI8mM9fWOIcWrY4PRwoW6 53XqSgnANzGlodu1uhl4oy fRk7MuNlWPNqpwBifIfwZX G9q6NyAe24 E13yOPrpDGOpSHSjNWRlUK MaeTeddf8gmP4pBu4+PC9j z0juns82nW45bLZ+PHRkIH Q3rJtfTTme POWtvT6gMBuxElZ0OCFmNs PhdO99vILjABjrSd9hgJzc jUlhSV3fQOBmjbulf563De Wza8vgPHNx jFEbODucQAF9S13aj8Q1CV PdSKUnIHX0fIP8yP0ziGey bjogbGVmdDsgdmVydGljYW mqDPxuF154 IHRvcDsnPlBhdGllbnQgTm JnKOb4X3CtSxn6ZSDieBzo ZJ3hjBOlJJflLv4qdQydbB glTH1gXMMw lhlpf117UbVxj2krTHOujD BsAOehCTP6W19te7A2NBSq AKKhYNK0tJB2fW2sbZwvua ogbGVmdDsg ccRoyVgpFFymBTgbP006GC RvcDsnPkJpcnRoIERhdGU6 JF84CI36iDNyh4M7qUL3T0 BhZGRpbmct hijrkSO7IQKwBWQsrK24El 3nfTvaXf9iUZCgYLK6YKKz hGLkU8ShbY2sXmHkHWNdPJ BwA8GwbNMd HUrbS708UGyfNkS4XRWwsh WcM5EzUNMbmWadSsG7z0N1 Ic5CM4K1JE37SN55jCRbf8 B4nCQ5S1Ut GWKbarjmbekmzDS6JGFuMF PixM16Od9zhTwnIi1nUBYr DPN6ZPKjsZRrH6BguZ5sTp AjMDAwMDAw D3FarEEbOPcjK363QRwxWz W5CMGchkNsO3ThYJMjgKxa ZfZ4y4T5Ce0VMVv6YS76TQ 99aLZyc1O2 wAN8K4WuNWZmqbamiijdfR L2GSPnJOXfpX64Fa4evCye Cu7jVHQsVAF1BFYthNClE0 NbtH0qDyEs CIIqTWWlD6CzuCSrCXotV8 25RXffBwK3BGJhwoIrB3Ta GHMwqZtdBoY7b0N5Qc2DXH MmXK30IHF5 vBT8NR18QE47P6PqFeuonW FibGU+PHRhYmxlIHdpZHRo IMgdEMGuRtAoyKvsAI5nXq 9yZGVyLWNv oBgjxBLrAwGbo4hoGGPkXP ecLF5xmQrmZ2GzmGH2GIFw z0p3Pu43C44nL7GusFC+PG KxcFC0rLM4 tC1sGdCgIdD9EKnqQ316Hv RkqXHjJczxi9eme8rasDy2 OoM8IQRqsnPizGhbRYX7n4 JjCb48M50z IHdpZHRoPSIxNSUiIHZhbG rrqh3uwW1iJc1+PGNvbCB3 iQJ8fZ2zTyZxJiO6FVxnA4 49InRvcCIv Dojxf1kaw2ztaPt4IhCcRB XsslSrdDrlBMV0f2OgRc50 K4NheVzhm3YdBmn0gs90qS Tkf6S7wEK9 O7ObMGCejrpafWKcxChrKU 0nWRMycqjuGXQooH0fAPNw W2r4PvLsDrD1KYfqI2Guyp V0XIVidSPm POowTZR3I35wd4C9ZIRgNW UpXZH4cFO1kT5soAtxdrtp bGVmdDsgdmVydGljYWwtYW pzE375YQGa uAmdLSMqsE3xPUWluZTuoP suAY3sPZVwsuraOfGSRuOK CzmbZLPKXGHCKzHVIL54GG 04cRKrq7X7 xWK4F4YoSGJzaftafitenZ X5TNQdFFLhjG91aSEtFSyh Wx3ct2U1y877JREsXDLeeN 10He5vvGrh TCMfxSDMtA0tdepoi0gmff ltSwUiXNXhFIi1XVh3CZXm nCawGmAcBCB7QgV9ODM5iH BjhY8jgIwd vgcehV4dWti+MDUvMTEvMT s0LMrofTP+SLGuUJI2hVuy TVyzOMUwpM1sPWTdN6f7Op XkQcW0MJos O3YsNNOqomxhCb30uZ7wOv XjJyD3JHxnE3ZafwT7HZNf zSXcQRzjXRQ7O23es8K1FC MwMDAwMDA7 nVI5hE0iwVpbhjmzsYNpnH ltcuBicVqxLIrfVQgzD793 RPDqnKrcKvB0XVlbIVVoBW 26OX26zDZu a9E6uBC6T0YpBZLtgjvqfl gdyRJ0YORuKHOezG88eUEp ECsgVw5sx5C1s814ZJRgKA ClwU46Hh8f uYjqWWQmiFPWoU5todpuy8 miqvmmFqNkDNGlUJd3LIf9 QOFhwYstRkTeDSJ3SkX4TE I4mGHibT5c aEabphfjaF2xQub+TWFsZT wvdGQ+AFSlRXM2oIxwZKip SLVuyG2bWTYuI9r6ZkBlLt T7BUxkR4Zs XAUujgvrGx62bZ1qYdXbWt A6XOzqN0DlqwA4OQDctEGo CCpcNLT6A81aa9I3JNLaBL YrBLA1fTC6 jX0wpQsyskwbdLKwvTlnpa FfyMzbWTauYKkhR775HGSo uGoqBl35pUOqhBgcpeO0D4 RkPjwvdHI+ ZM78ONEbOR08uDEvgLTfv7 qhhNh9AhAjNBQnIGO1tNdn PCjsg8CiKQHlZ80cbCJvc0 X1KKOdiLzj aXCoWcVvfFI6hA1oYFpizd elp2tclcgcSuncp3mhfq10 qB06S99tXYbmZUCaNHIqXW UiIHZhbGln iq4uhV4jCf2+UEWvmDK5iX C8eE8kHgDjKkJ5VRfeI705 JsIzeSEvSsxup2qtj3jegH c4XxGbNNIa cmBrcKlqCKS8w1SiVv60M3 9sIHdpZHRoPSIyMCUiIHZh eIorxu3kvT9dXb0+PC9jb2 vpvb52lV17 dHI+RBQfFXP9zYroPZjfAX RarA2oKMcaDqE5IMPeHsUn oZ09lHQvJVraNg9klVejkU ntJJ8oVPCk dffwo464UdNfn8faDEXeuC SnZHxnYPL7L82kk5I9TLFd SFYpTIP7lCF5hG4taVpzma ogbGVmdDsg clRrvHyjGSgkRAxkU378EG UikGljOgJcbSYmU9hnhuJR LA4tOjfqcIM+ILTuALA0mY xlPSdwYWRk xC4cXIHgN6t1FrKjJlD6KN rvI6CjnxJ2PSJdjGCmNZLa bQPXwE4zfmuko6ewljivHs AwMDAwMDt0 TTh4QPEqbAfyIpKwOWQ8Kr K7HDJ1iJZufJ4ywJrcrmwk wH1sPvg+RklOOjwvdGQ+PH PsXTE6mDpo YKzvJVOhnA7cHHOjT5j6Ev JbYqE4DCvmS2RttxW3WSIq jNQgROBmbQKMvY8wqikxg1 xvcjogIzAw QXApRWs5WUx3MKIfyQbuDf IiJHI5QzI7UKL1nBKbgI8n tMkuxpatsY0eJdv+TVJOOj wvdGQ+PHRk NBG6mBstZRcpNVManU8fKI KxK1p6LhKqYqK3FXhgY2Gf cgH4AIEekOXxRSSuvHEBwD 8fhxbur8ng lxbdKjSqZCHdQJx4DYo7AD UxbSbwBvIoNBV9HbA8GKM4 wRKkiB0qkXxonrdvgK5aGu c+BRZ1NIZ7 PE78MV67H5YfTblfdDNksQ U+PHRhYmxlIHdpZHRoPScx OIKfXqRsaTcnNI9lCn3xJR VyLWNvbGxh cHNl (more content not included)... Normal [facility] Consent for Treatmenton 12-31 Consent for Treatment [id number]#1.0 0CD:127 Normal [facility] HEMATOLOGYOrdered By: SYSTEM SYSTEM on 01-28-2022 Basophils/100 [...] MDRD (S/P/Bld) [Vol rate/Area] mL/min/{1.73_m2} Normal >=59 [facility] Comment on above: Order Comment: Order added by Discern Expert. Result Comment: eGFR is race adjusted. AA=. Performed By: #### 2 [id number] ####[facility] [address] [place] [address] GFR/1.73 sq M.predicted among non-blacks MDRD (S/P/Bld) [Vol rate/Area] mL/min/{1.73_m2} Normal >=59 [facility] Comment on above: Order Comment: Order added by Discern Expert. Result Comment: Shipping Packer neil kidney disease could be indicated at eGFR's of less than 60 mL/min/1.73m2. Kidney failure is indicated at less than 15 mL/min/1.73m2. Performed By: #### 2 [id number], [id number], [id number] ####[facility] [address] [place] [address] Consent for Procedure/Surger yon 01-27-2022 Consent for Procedure/Surgery [id number]#1.0 0CD:127 Normal [facility] Progress Note-Physicianon Progress Note-Physician [id number]#1.0 0CD:127 Normal [facility] Pre-Certification Formon Pre-Certification Form [id number]#1.0 0CD:127 Normal [facility] Coding Summary.on 01-23-2022 Coding Summary. CD:[id number] Gh 0bWw+PGhlYWQ+TJ7LOTLnB 73vdWYpgH2SE0oHVG5IXYV VARPNJF9FTR7uqCP1XLuhD 2VybiAv ViexyVMbAX50MSl5ONT9uK etWGovuF1tmLAfZ0n0EfTn FR98mZ69HQjiMXKbIdW8Mg ZpbjsgbWFy Y1ftXbQvhQVwIar+PHRhYm xlIHdpZHRoPScxMDAlJyBz zQxhYU7uRm6rZKHrXJBacM xhcHNlOiBj n0dtNOQvFSakRX7taFtpV5 MutUQ5QGFgr3q3Py79dLN+ BBYqQAJ5eYbrXSvxx356Xi Hfe1eiJFV4 jQHfSKrrETW9B64rs0W5LY TzMPQwQRP7bSE5fO8loRud vdpbH1LtwKOjMwD3GUB5yR QnkP3pmFnl qsqqdK8xFez+H30OGT9GKY DUMQ1VVcg6Q8SxKskztKB+ TR26GCYmWA00fUNsbWKml1 aozQe1WnHw OHLsXPP2dTniKZboy1HsSA FuC98pbGKba4V3WEQpuTwi oLMyEiMorJQ5sX5iHTsxmg kwx1mmwqpc Dluur6nogx64pM08L62rYL bxHMLwDQY0SOOePFVeyMna ln2xcE4vVh4+LClht1jeq5 cnlGl9FuBt HQMjhnSxlNnqKER9l5PcSk 61N4ZcoTncu0RvVvr1ri89 oPDms7Y7fMS5BVbqQTVcdS 6sSOeiGtF4 VCXnOpIpfT11fZYxBWmzOl 3ybAjlzSqcGV1iHQItzxhk FTRiaS4fQLOkwZKirRvjPO 4wNTBpbjtm o760XuZgXRD2YPLvtJNxA7 BxqJ1uGaYpHNCwYQXrR2Yd eZGaXVcaN729AXdlRpL7UQ BexjFjR1Si XHPsmGwaIjR1f5U9Zw4Gv2 QcyminZNR4JGlrFXQ4LiS3 PkFoDwO4K6LiXnd4CHCupC kdYI3hB7Wu QMVwvzmxfnpxrTJ9PERkKN MblA54qSIlXDiaTy0xv1L9 s149IYQyQBFnoY16Lr6noX ogMTBwdCBU jR2ndhjrj9fflapyGoQoUA HaQDr6CPw8UYWwrAwdJfSt CEY8VfD5MFA4pNAsaF7ekK dkgkepqP8k Oyc+H55vbV3xXNN9FNQ9xn ioJQCciaLcER72US39H8Ju PjwvdGFibGU+PGRpdiBzdH vvUO0oGvYn b4jtq3LzYDayU1GgQLRrAA wpVmy3TTBzPAU0pLM8wL7v HYGfTZrdh8N2jTR9E0Zmho Lxhg6qe8bs MYMvOUrdY40jzLCgm7N0WL YfpQB7RHWntArbZuVaaB54 Oyc+DWGsgWocc4OrLeilj8 wig6tfgMp3 LuOsDGRamgFgvWqnMCK3o1 NcSp08Q14eCXndUQZmVKCw WYYbSZAzpIbxfr3mtM9nMk 8+PGNvbCB3 yXS7uQ3oSHCaUoA8QRwzM7 58SkVqzHXlGinvi5kde1si vPi5PcAdNRAhsgWbcCkoEX M9e1MjQi40 F49gBClhUAIhOCQzBMWgFH DsfWoqyf8luL6dMr1+PC9j e1xppb55hS05rEC+PHRkIH P8gYidPEuc AIImeU3hEBhnTdO2GKRhVz UuwR67yZNnFNvvLy9ecBfr vCaiSH3mOCHbkhcep642Qj Kbe2gpLOUl eGOaIGoaWDR1B59ms8Z3NO YgQLLtZOK3wEN8uI1ozWbp bjogbGVmdDsgdmVydGljYW tcKUspP774 IHRvcDsnPlBhdGllbnQgTm HbSUq4E9KoKvj1LUVouYpa XW8ayWWuAKllUz4yrEydgW jxEM6aQMMa cdvoo574BiLne7lfRVTfxB RtIGxbKXM9T87te3B6LRLv JTRaEZU3tEP7oM3dnGmjlx ogbGVmdDsg goVvrEbqZFuyWEswT902SS RvcDsnPkJpcnRoIERhdGU6 VQ84YH74fELxg0V6kPN4D0 BhZGRpbmct brwfkPZ3RMBnXFDldE28Uu 1ffAaeUm9bUKXvRPT1RJOu cPTgY7RsfI4oYdMkZPYwKR BnS1KjyEQl HWqbD890ROtiFiB0AFMyyt FxY4DrERTduTcsBnE2n1M0 Hf2WF4H0PW21RN27tSYqj6 A4kAU0D9Kx BHRcofsqwjqitGO5FVAaAV MvnB88Ms5djZzbOn2fNSEx LET8PQWlwMBiA0JdmX6nBg AjMDAwMDAw V1HytSVjSWthH954QJsqBw B6TXLcwiDuL2CkCTNhxHud GcR8c5U9Ej9TJVo8NG26CY 52rOAtw9E7 uZK1T2BsCYDoylezijucyJ R5KONfZSGwdJ91Ug5ujUuj Po2xESAeTNR3BZQkfQRrE2 SonO2cFdNw SMWmIWEoV9BwzKHuFClsK3 42DAjhKwS1TWYhnnStI4Zn MWWarSnhKzZ2c5D4Ck5GIY OaOT84YQK3 sTB9SM74XQ75M6GzOzgaeW FibGU+PHRhYmxlIHdpZHRo VDqdUMQkOcNyqUgoYZ4lHh 9yZGVyLWNv bJqmeUHuLvEhi5okJSBwVT svIH1yrHcjE7ZfrVE0HMAh s2j3Hk15M50kU2EenTU+PG NbbRY2yNA1 rP1hBaIuYkC8TLylS461Ec YrvKNiUpiwr2msg5bpuIx2 BuV1JKKfrrAtcFzaYWC4n1 RfMa36U63f IHdpZHRoPSIxNSUiIHZhbG twbq2ykR1kZs0+PGNvbCB3 nBW7oJ5sCpMeBdK3NBhiN3 49InRvcCIv Bxspj7plj9qilLq1PsIcXT WqmlIuoVjbUEN3c6HfHf64 O5UnxKloa9OwXej7fk51sB Ish4N7dNM1 Q7AsGLEazsimfMQkeXdhPX 2vZPMbfkwmWEOdkJ1pYPJs D1j0YqImWlK1TOraH5Iaci P1LYNhhPAc XTxhYUI0N57xb0N6ZMXdDW TuQQV9jPA3gC1heFxjomvx bGVmdDsgdmVydGljYWwtYW flW407RNHs sBanKUUlfC6eLZXmwRJynC vaNI1uPSNycqojPmLXVoQY QwgdUCBJTQOBJlYMHA73SN 67kXHyw0N4 nZS0T5HhFJYeqoztjvprhL S0IWOfXZBubX11mDPwXDhu Xh5be5N1e726SOAkMMCtkW 71Gt5tlEln UOYhjNBMcV6yuvpxl2tlqy hwVbBxJMZwKIf1RJe3IUVf gWvgYyAmYKX5IuW9WZE7fF WttN2cgOnq kyvfdG3tIza+MDUvMTEvMT n2GQbzvHI+YUNgBNZ9fSdn IYmtJBHkpP1xTIGqB2h8Ra TnQcG2GAav G2KqYCWwxiviSa54tI0jDv KjRmW8MTkyB4XcufW6AKSo lVLfODhgCSO7M33br2N4SO MwMDAwMDA7 qWM8qJ2eoJxblpeqjKGseV ocsyPapGnwVCzaHHxlA601 CRDkxTpkPqU9YDpmHAEfDO 30YU67yJXo d9E7fWA2Q0NwZBUkzpakgj ppmVW0IEQxECMfiI38jPFd TFgxRz9re7F1i534VYOnCM BdlM74Br9a vAvrDIXunSUUaL3dcwhhp8 cxlhhwUpIpQZYtOYz8UYz3 BNXulIqzAlHfAXL4QgR5VA I9uKLjcH8o qSahamymrY5pQqf+TWFsZT wvdGQ+KPVsSLB4mZdgFZnb GIPmjK5zUNYwU8c6WzMhWv C0SQgsR4Dl JCAwbwohZv38mC4bOoSwIj Q2WDblR7QprkP5BFFgpWOa KBzmLBA3G67qz6Y1HIQbZS ZaCGA0oBH1 xU6ivTvnpnvjqPGjxCvttm GjsWamMEvxVIdoX456UWHh pUbhInLgI4EnjllpOkkxxP Q+FP74om17 C5WlBuodTdw1VTKpDGC8yA Z0wA0zQKHwGJcyf4W6mFH6 P0OtblRotw3do8fxLZBqHA lhX96bqRAx r0D2GAIrjIV6LVImhSyuUl LhwF11Atx+ORFbqLbyt2Pf Dviia0whf6pbxYb2DrGqAU IgdmFsaWdu JGK2d6PkBd03Y40wYKmtAU KjPMJuGHMoAWGfbKyggr7c zP7yMb5+XFPtfIX5oTT0zI 6iBkFoZnU4 VTyuB349DkNwkIAqCbcqz7 fvi9xmrQc6ZjMbKUNrweGi cDliKXQ9m1LqJb71D7SvxQ svd7IpBwx3 fq72oDKld9F9cWE4P6XmEG VfwbuuwPQzgJgkQF0jBWQr jzqcGVMiwZ3lUBLsH2g6Gy WpSwB2SOqk G0VpllJ7KDCwwFZgGXNjmM MVaA1xvoekr8toxpckWeMr LMEyDCf3KZo3YPOlzYfeIx DzACA8UzX1 AYU1aECxjT1ruYzkwsbbfS 9wOyc+XJa9d8pprLOzXU5n bNM5JI41AY92gLAjv3F1vC Y0W3TiFKIx alzpfecbgAJ4ETGuBJYejR 16Zq4gkOrcQs0aWMTyTZC8 HSDxtUNeP4CjxY2jKxUeDD QmLTGqS7Jl nSSwAVzgE638ESiiPcR8FX KaqfKaT5SpTCLxhLkcTrQ9 j3B9Bt4XAT56UI31JI62kB Gnt3O9dEN0 A4CjFDZkmswypkgpmGD4MH ImLLBnzD49Ru8mjIhnYd6x SOHlWMF3UERclJDuP0SpiP 9yOiAjMDAw DLLhI3MejWZmNSdkT124UY mzYxK3OWVnwsEzG7BrBUPi oXrgWtS0g9G5Nr4ZGq42CA 44HJ83aLMp o3H4iSJ9W7IeMUVawfkhme kjyYS7GBPbHBBthF02It0a rLeaOt0fUPNdKPZ0MFSyoQ OtR4DnrM1g YoAaFMXjLJMyW8WhsWSnAD umR811ZGbkLsO2WCNunuYg N0GbBUQgmEryEuB9b1G0Yj 0XJWcskqu9 Z2ZsOaafkHZ+AS99FCZxYQ 40mGKsbTHoo8bjySo2GnJo SVWzROW2gZhsHZxnb4ViPE NyP69qsAFo c2U6 (more content not included)... [facility] Consent for Treatmenton 12-30 Consent for Treatment [id number]#[id number] 0CD:127 [facility] Heart and Vascular Office/Cl inic Noteon 01-23-2022 [...] in office. He had echocardiogram performed at [facility], which was normal. He was [...] protocol. [1] patient was then referred to [place] and was placed on sotalol followed by [...] with speaking. 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 He is taking and tolerating his medicines well. He has had no exertional chest pain symptoms prior to his COVID infection. 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 His daughter works here at [facility] and was present for his visit. Patient is now her (more content not included)... [facility] Comment on above: Result Comment: Elec tronically Signed By: Camilo STARK, Kushal Galarza\.rita\Date and Time Signed: 01/23/22 14:23 EDT Stress EKG Tracingson 2021 Stress EKG Tracings [id number] 05 [id number]#1. 00CD:127 [facility] NM Myocardial Spect Part 2on 01-22-2022 NM [...] Stress Dose (mCi Tc99M Cardiolite): 29.9 [facility] Consent for Treatmenton 12-30 Consent for Treatment [id number] [id number]#[id number] 0CD:127 Normal [facility] CT CHEST WO CONon 01-19-2022 CT CHEST [...] by: LORENA ANTONIO Date: 2022-01-19 17:17 Normal [facility] HEMOGLOBINon 01-19-2022 Hemoglobin (Bld) [Mass/Vol] 13.2 g/dL Critically low 14.0-18.0 [facility] Comment on above: Performed By: #### H GB #### [facility] [address] [address] [address] Maria T Canela Pre-Certification Formon Pre-Certification Form [id number]#1. 00CD:127 [facility] TSH - Thyroid Stimulating Ho mckenna, Serumon 12-31-2021 TSH Qn 1.65 m[IU]/L See Below [facility] [address] DO Work Phone: Comment on above: Reference Range: 0.4 4 - 3.98 TSH testing is performed using different testing methodology at [facility] than at other [facility]. Direct result comparisons should only be made within the same method. Tobacco Screening.on 022 Adult depression screening assessment No [facility] [address] DO Work Phone: Fall risk assessment a) No falls within the last year [facility] [employer] DO Work Phone: Tobacco use status CPHS b) No [facility] [employer] DO Work Phone: Outside Recordson 12-30-2021 Outside Records [id number] 20 [id number]#[id number] 0CD:127 [facility] Coding Summary.on 12-24-2021 Coding Summary. CD:[id number]:[id number] Gh 0bWw+PGhlYWQ+AT4WIWDlK 37fuHLniM4FX1bUDQ9HMFC QMVAZII8HOD8xnTJ9UCqvF 2VybiAv TagomADjOE07LZz1LYI1pP eqZQnjzN7xmTIpU8b2TaRk GP12wZ27YTayMCVlIoN1Od ZpbjsgbWFy P4mrQgFgtUZlIfz+PHRhYm xlIHdpZHRoPScxMDAlJyBz uRczEU0uVd4tXKLtEOUhwC xhcHNlOiBj d4hiMWVkVZrrSC7lmGqaV3 XeiTA8SUFqk1g3Xh15zOY+ WOExFMF8vLdwKNzgv040Cz Spl1zkOLT9 vVVqQDsrYHJ5X82ip7X8WH LmQOFqADV4xWD7sL8liLxa ibejN7TesBMuNuU7VVL7iK LizI1wdLwt tuqktO7wSkv+X06AXN4HLF WEMK2RTzz5N1AkBoyhwOD+ EF77FFDzRC83lLMoeMQwl5 cfcNl8DeHi OFSoDBT1iUfkISgsa3ClZW ZdX78llXGye7R9IZSmjVqk aEAwAcHbdQF6cQ3sIVuhdu jlj0msajno Lcprt5jjui97mB13H49iIM upYWSwEMB7MWAbADDekUzv lb4vwZ7pUx9+EQygp0ofu2 wmfTf7EpUs KMAimeXwtPgpGCN0t6HfWv 73L0LnpRtbo1XsYlz6hs82 bDHvw6A2vWL9XIfwSHFwlG 6rCWvzYvU7 KSUeGgCzeF84zBLxFKxvBo 6ayOpkzEqdSN9xNVFxiaym TRBclI9zDWSetNFhdZxwDQ 4wNTBpbjtm l129GoNtSTF4JAXgtADjY4 SvaU6sSbImWRKhKEIzC0Yu hGYdSQqlA890IVjyQyA9KT ZcppSeM7Ka KQRkuTavTzO0c2D3Ir1Yl2 JokfnqZCN1XSvoWFU4IvL5 GhCzBxU5D0VhDcq7VIZnfA uiMQ1bD7Ib OOVsmupymdmpfWL8JIEhXR MzwD42rTPaHEdoLj8fw9S3 w326DKHwERFjgO44Wo1tzC ogMTBwdCBU gF7cqbnui7bapnhyLpNvDP EyHTc8TOp9BWXpgKufXmWj FRD1WeE0ICK2jEMdgU7ygF itkmtsnJ0m Oyc+E42goS6qAWJ7PWD4lf tiKPUgkiXvYX77FJ25A3Wh PjwvdGFibGU+PGRpdiBzdH sfWB1oZqDi q3gvt1AtXNpvG8JbMCRwAS tcPvy6DWCiXKV5yOA2kB6a OASnDAaws9Q6kPZ5S5Wdib Czat7wr6mg KODaZVduI73qmEJyl5H2HE MjwOL4BKQyiCnoSbXusC27 Oyc+PMMrwEgsg0TaGjdpn9 gfg5tpxGo6 YzVmKZZptoTezSpwDKB3h4 KjXv45M19aIEynILHrTAWq YIHrYXCfpErslv6kyI3dMa 8+PGNvbCB3 kOI4iO3gJLQxYgO3LSarM6 65GzVdnFApAegvt1bks7nh oZy8RdUoYRAaqhEsgYmvPY C0g4RuEe31 H89nFJhdPKApLYVwUGPtDF PixPyvor5buD1uQe4+PC9j o5cqrw02iR73dKG+PHRkIH L1zZluNFvp GFSocC7gIJbgXcF5ASMfMk QtrV86wKFcKUkzJf8hdMwu gRdkZZ0oYHSbriwli836Wx Njc3chUVJh tFMdKLnlQYI4C03ac0C3UT ZqBMZuMEH1mRS2dA7kjZtl bjogbGVmdDsgdmVydGljYW jkHEsmL160 IHRvcDsnPlBhdGllbnQgTm NpPZx2B7OkHpv5QJAnyBhp FV9lcRRxQVzdGp5iwJqvoR zvGQ1xHJCa rrkjw496CbZmf2boEJBseS InFDisMVG8P90hv3F5GUUt VFXbVBO2iMS8rF5lxJetlu ogbGVmdDsg sfZecQilCRjiDWqfA228XR RvcDsnPkJpcnRoIERhdGU6 YM39JJ36jYSmb8P8wQB5G9 BhZGRpbmct hudxhAY3UHVxIDFfgA24Yv 9qgCirSy3mCBImGRV0GQYq zJNvY0AapF5bLhAtQGKgVX BtT9IhyYDn LDsoC300RBgmBoG7KJJmzx GfZ0OaYGNsvUpiQcJ7x7A2 Rw4BQ0B2YW53VR90aEBal6 M9tTS9K5Ck JCQwznqbgsqwaYA2XDBbVK GywZ94Zk4kjKozZq7vYNKl BOP1AWBmiURaO2RnhE4sEf AjMDAwMDAw V0ZwbOKyCQjfX367MImgBz P8QHMnxzOeG8SpSHPckGbs ZqM5h6Z0Yu5XWNf4SI15BK 53qNWof4W9 hBE2H5KkZTXoswbytctesH Q7FCQtXEUxtL50Ee2qaZxu Ta8yDKFxORO8YAOsdWNnF2 HgwE2yKtMy YKYxSFLjX2VfcSVeRHltG7 68RQpeVbJ3UXYcrlEzQ6Qk EMTojXykPcE3l4Q0Fn8OEU PcFJ08UBL2 nKH4CH06IW98B4KrIrpeuL FibGU+PHRhYmxlIHdpZHRo SGfrGPLaAeZayHusGL1dRn 9yZGVyLWNv yVighTHxItXjk9zyZJRfVJ byJO2oqUnoK5BmhUN1YBXz p3e0Ur72B95jY2DcjGC+PG UydIE5oEV0 sH7mCbCwHrT9STnlG196Bd PagFOjZfjad8ifd1fjpAi5 MiJ1PDEtlwShdUjeAUU9i9 JdJz48I67h IHdpZHRoPSIxNSUiIHZhbG anzg1jyX1qUz7+PGNvbCB3 aQI5bG1fSkUtCfE5BEmnJ6 49InRvcCIv Vnjbt3rzn6lykPn0KgJdMA LamhTntVolEYE7p4NgEf01 B6YsdMixv9CpMnl6cy90nT Yxb5I5fBA4 L7FdIPWynsbtcTSpsXmgSU 9lEMXqwjllSAOxmO1dFSXx A1u3ErSqAmR7IWznR3Qury W5EQEaqANw CVyyIFC7U37cg9K2ZCSsHD AtFKF3zFR8qA9qeKwrlmay bGVmdDsgdmVydGljYWwtYW vyB269XJUi vWijZHMnpL6kSAVquEJejL ggKW9dPLUojeveYyKJOmIC RbcmIRPJIHPNBvNZSZ30ZE 87wPXmu0A5 nDM4I7ToSOGokynbiufihQ K3SKOhEEOujG15sEOxXUux Wf3ws6Z5z309QSWqWTAwkM 00Dn2zkCiv NDMxwIDLkI2vwekzb7rtyc wyXvHjKVNdTAh6BIv1MRGm yYzkKdSjELM8MvH8WGZ2bP InrB8xdQsj zfmgcG4hLzh+MDUvMTEvMT x5STmvvBY+CSXbTJC9qRmo PVbpKWBpjI9eVJLcK7c6Uy VcFsK7EBdc B9WgMXCasxefNi32hU2cGv UzWeF0AOfdR0YoqgR0YGLb cRKgLFepVAG6J69xi7J8JI MwMDAwMDA7 sLQ4aF7trNaypzbgmRIkzN obtrWgjMwlSWagVBwwQ548 HIMxcGqkMfG2GLpxOLQaBW 90GT99aVVc k0R4uCR2F3VcOAYhotived mllHB5GAGgDXCwiK60qKXe MUyeDq7gs6M7l624OXBaNU GnmX07Wd1t yPbpWEKkoQBJeR1jimsuo3 jmowjcVlAaGOIrKXh1LTf4 NAMypTjxGkCkAEI7QbT8BL P9bQTykI2f xXgusspixT5wAdt+TWFsZT wvdGQ+VQTdPWU5pVycRDef CIDrsV8sBZZsE6f8LlWtIe Q9MEgcY4Qr XZCosjzyQh75oV1nJzEjOd Y7CMspK1ZprtN5BXDnkOIp GRimIIC5G28ph5D8PCFlNC AtSSJ5yPO7 bS9dkCyjnxtigSJpbCcglu SqdJhxKIzaDGxrZ145IDDf lYkfHh79kNNlaHaxbwW3E1 RkPjwvdHI+ DC12VSBlJB42jKYeoIJfl3 wqvBp4OxArUCHgQXQ9aDnw ISzzt3OuUKWrU74azEDqa9 Y3AYDgjTdt iLHsZaKliIA7nB7wEHhmtb dkl5remgiaOsprh0zozn63 wY80Z44uTJxiTTEmPGTfKV UiIHZhbGln le7zmU4uUm4+VYNhdXV5uV I8mB5uQkTzTcP8BJhjD022 YwXmeUHyCrtpe7jey7krrQ k0DqDjWATr alWtkVllFRE6x1CaJt81W4 9sIHdpZHRoPSIyMCUiIHZh mBurae5ldL9bFp2+PC9jb2 upnp32aT42 dHI+QCPvPBL7uXglFGzbEJ ZtoA0jTDieOpK8MOCzYtMm nJ33uJJtYSkqDw1foThlcK vgHS3pNPHc alvju988TsCoc4mdSHVerI NmPAhhPNW3S05px8H8URWr IKWdZSQ6sXD1gW3kxJqims ogbGVmdDsg zvWybVixKVapWUmfV582YN QobVvnNlAklWTxF6qdxgCT UC1iWhegrOZ+EASyIJA4eV xlPSdwYWRk wF2zMJMpJ4g8OsBsCxE3MV vwP1CfekZ3UEXgjXEvFMCl nTZBlA8fuvtjy5eekmmcTg AwMDAwMDt0 TQy7VLVwoLyuVlByPHR3Zz A7VEF8fBQdrI2ohZgnphhj cU1pNya+RklOOjwvdGQ+PH MyMVF7aCyd PRwfIQGgaA9zDFLrS0l8Hi GkZbS0ZUjkG5NqfyV2QBEd lFFlTDGinVSIbU3jzokmd4 xvcjogIzAw MLBgXNs1AYp4RZOqnZafLd MqJFS2KcZ5VJN8hDOjvG0v sWjojdujuO2fViq+TVJOOj wvdGQ+PHRk PBU0nMbqZOcuFPFfnS1eMO KeA6h1JoJyUgX6ZMidC5Es zfV8AQGefFLgGGSadHKTjN 6ktdsux6ph ocdaKbHjYDHeEEy2CVe3YA FwzWxqUmWbWIU6JsT9QBG1 hRUeeQ5txWchiekocG3tUy c+AWN0SRH4 GZ17YV82N0SbYffccMKmxW U+PHRhYmxlIHdpZHRoPScx WBDhVnPnrSvyMI7bJl9hMI VyLWNvbGxh cHNl (more content not included)... [facility] Consent for Treatmenton Consent for Treatment [id number] 0CD:127 Normal [facility] Heart and Vascular Office/Cl inic Noteon 12-05-2021 [...] in office. He had echocardiogram performed at [facility], which was normal. He was [...] with speaking. 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 He is taking and tolerating his medicines well. He has had no exertional chest pain symptoms prior to his COVID infection. 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 His daughter works here at [facility] and was present for his visit. In [...] perfusion R (more content not included)... [facility] Comment on above: Result Comment: Elec tronically Signed By: Camilo STARK, Kushal Moran.br\Date and Time Signed: 12/05/21 15:17 EDT Progress Note-Physicianon Progress Note-Physician [id number]#1. 00CD:127 [facility] Tobacco Screening.on 021 Fall risk assessment b) One or more fall s in the last year [facility] [address] DO Work Phone: Tobacco use status CPHS b) No [facility] [address] DO Work Phone: Tobacco Screening. Yes [facility] [address] DO Work Phone: COVID-19 Lab Corpon 10-05-19 21 SARS-CoV-2 (COVID-19) RNA PATTIE+probe Ql (Unsp spec) Not detected Normal Not Detected [facility] Comment on above: Order Comment: Healt hcare Worker?: N Result Comment: This nucleic acid amplification test was developed and its performance characteristics determined by [employer]. Nucleic acid amplification tests include RT- PCR [...] in this assay. PERFORMED BY: [facility] [place] [address] PATHOLOGIST RESEARCH ENGINEER SAMEER HARDIN M.D. Performed By: #### C ORONAVIRUS #### [facility] , Vital Signs Date Time Vital Sign Value Performing Clinician Facility 11-10-2023 10:44-0400 Body height 177.[address] 11-10-2023 10:44-0400 Body mass index (BMI) [Ratio] 52.8 kg/m2 [address] 11-10-2023 10:44-0400 Body weight 166.[address] 10-04-2023 13:56-0400 Body height 177.8 cm Margret Stevens MD Work Phone: [phone])[phone] [place] [address] 10-04-2023 13:56-0400 Body mass index (BMI) [Ratio] 52.8 kg/m2 Margret Stevens MD Work Phone: 2(955)601-908566 [place] [address] 10-04-2023 13:56-0400 Body weight 166.92 kg Margret Stevens MD Work Phone: 1(769)293-173266 [place] [address] 10-04-2023 13:56-0400 Diastolic blood pressure 64 mm[Hg] Margret Stevens MD Work Phone: 1(159)815-451166 [place] [address] 10-04-2023 13:56-0400 Heart rate 61 /min Margret Stevens MD Work Phone: [facility] 10-04-2023 13:56-0400 Systolic blood pressure 128 mm[Hg] Margret Stevens MD Work Phone: [facility] 07-19-2023 15:30-0500 Body height 177.8 cm Margret Stevens MD Work Phone: 1(381)752-938966 [place] [address] 07-19-2023 15:30-0500 Body mass index (BMI) [Ratio] 52.37 kg/m2 Margret Stevens MD Work Phone: [facility] 07-19-2023 15:30-0500 Body weight 165.56 kg Margret Stevens MD Work Phone: [facility] 07-19-2023 15:30-0500 Diastolic blood pressure 88 mm[Hg] Margret Stevens MD Work Phone: [facility] 07-19-2023 15:30-0500 Heart rate 65 /min Margret Stevens MD Work Phone: [facility] 07-19-2023 15:30-0500 Systolic blood pressure 138 mm[Hg] Margret Stevens MD Work Phone: [facility] 05-07-2023 11:45-0500 Body height 175.26 cm Kelly Lucinda Other [employer] Other 05-07-2023 11:45-0500 Body mass index (BMI) [Ratio] 53.3 kg/m2 Kelly Lucinda Other [employer] Other 05-07-2023 11:45-0500 Body temperature 97.2 [degF] Kelly Lucinda Other [employer] Other 05-07-2023 11:45-0500 Body weight 163.75 kg Kelly Promond Other [employer] Other 05-07-2023 11:45-0500 Diastolic blood pressure 93 mm[Hg] Kelly Lucinda Other [employer] Other 05-07-2023 11:45-0500 Respiratory rate 18 /min Kelly Lucinda Other [employer] Other 05-07-2023 11:45-0500 SaO2% (BldA) [Mass fraction] 95 % Kelly Lucinda Other [employer] Other 05-07-2023 11:45-0500 Systolic blood pressure 159 mm[Hg] Kelly Jane Other [employer] Other 03-08-2023 09:30-0400 Body height 175.26 cm Beena Benítez Other [employer] Other 03-08-2023 09:30-0400 Body mass index (BMI) [Ratio] 55.67 kg/m2 Beena Benítez Other [employer] Other 03-08-2023 09:30-0400 Body weight 171.01 kg Beena Benítez Other [employer] Other 03-08-2023 09:30-0400 Diastolic blood pressure 85 mm[Hg] Beena Benítez Other [employer] Other 03-08-2023 09:30-0400 Systolic blood pressure 145 mm[Hg] Beena Benítez Other [employer] Other 02-15-2023 14:33-0400 Body height 177.8 cm Beena Benítez Work Phone: [facility] [employer] DO Work Phone: 02-15-2023 14:33-0400 Body mass index (BMI) [Ratio] 53.38 kg/m2 Beena Benítez Work Phone: [facility] [employer] [address] DO Work Phone: 02-15-2023 14:33-0400 Body surface area Derived from formula 2.72 m2 Beena Benítez Work Phone: [facility] [employer] DO Work Phone: 02-15-2023 14:33-0400 Body weight 168.74 kg Beena Benítez Work Phone: [facility] 250 DO Work Phone: 02-15-2023 14:33-0400 Diastolic blood pressure 82 mm[Hg] Beena Benítez Work Phone: [facility] 250 DO Work Phone: 02-15-2023 14:33-0400 Heart rate 64 /min Beena Benítez Work Phone: [facility] 250 DO Work Phone: 02-15-2023 14:33-0400 Systolic blood pressure 138 mm[Hg] Beena Benítez Work Phone: [facility] [address] DO Work Phone: 11-23-2022 17:11-0400 Diastolic blood pressure 84 mm[Hg] Beena Benítez Work Phone: [facility] DO Work Phone: 11-23-2022 17:11-0400 Systolic blood pressure 138 mm[Hg] Beena Benítez Work Phone: [facility] [facility] DO Work Phone: 11-23-2022 15:32-0400 Body height 177.8 cm Beena Benítez Work Phone: [facility] DO Work Phone: 11-23-2022 15:32-0400 Body mass index (BMI) [Ratio] 53.95 kg/m2 Beena Benítez Work Phone: [facility] 250 DO Work Phone: 11-23-2022 15:32-0400 Body surface area Derived from formula 2.73 m2 Beena Benítez Work Phone: [facility] 250 DO Work Phone: 11-23-2022 15:32-0400 Body weight 170.55 kg Beena Benítez Work Phone: [facility] 250 DO Work Phone: 11-23-2022 15:32-0400 Diastolic blood pressure 90 mm[Hg] Beena Benítez Work Phone: [facility] 250 DO Work Phone: 11-23-2022 15:32-0400 Heart rate 82 /min Beena Benítez Work Phone: [facility] DO Work Phone: 11-23-2022 15:32-0400 Systolic blood pressure 148 mm[Hg] Beena Benítez Work Phone: [facility] [facility] DO Work Phone: 10-05-2022 14:45-0400 Body height 177.8 cm Beena Benítez Work Phone: [facility] DO Work Phone: 10-05-2022 14:45-0400 Body mass index (BMI) [Ratio] 53.81 kg/m2 Beena Benítez Work Phone: [facility] 250 DO Work Phone: 10-05-2022 14:45-0400 Body surface area Derived from formula 2.73 m2 Beena Benítez Work Phone: [facility] 250 DO Work Phone: 10-05-2022 14:45-0400 Body weight 170.1 kg Beena Benítez Work Phone: [facility] DO Work Phone: 10-05-2022 14:45-0400 Diastolic blood pressure 84 mm[Hg] Beena Benítez Work Phone: [facility] DO Work Phone: 10-05-2022 14:45-0400 Heart rate 52 /min Beena Benítez Work Phone: [facility] DO Work Phone: 10-05-2022 14:45-0400 Systolic blood pressure 126 mm[Hg] Beena Benítez Work Phone: [facility] [facility] DO Work Phone: 08-17-2022 15:25-0400 Body height 177.8 cm Beena Benítez Work Phone: [facility] 250 DO Work Phone: 08-17-2022 15:25-0400 Body mass index (BMI) [Ratio] 53.38 kg/m2 Beena Benítez Work Phone: [facility] 250 DO Work Phone: 08-17-2022 15:25-0400 Body surface area Derived from formula 2.72 m2 Beena Benítez Work Phone: [facility] 250 DO Work Phone: 08-17-2022 15:25-0400 Body weight 168.74 kg Beena Benítez Work Phone: [facility] DO Work Phone: 08-17-2022 15:25-0400 Diastolic blood pressure 78 mm[Hg] Beena Benítez Work Phone: [facility] DO Work Phone: 08-17-2022 15:25-0400 Heart rate 66 /min Beena Benítez Work Phone: [facility] 250 DO Work Phone: 08-17-2022 15:25-0400 Systolic blood pressure 124 mm[Hg] Beena Benítez Work Phone: [facility] 250 DO Work Phone: 07-06-2022 15:45-0500 Body height 177.8 cm Beena Benítez Work Phone: [facility] [address] DO Work Phone: 07-06-2022 15:45-0500 Body mass index (BMI) [Ratio] 53.38 kg/m2 Beena Benítez Work Phone: [facility] [employer] 250 DO Work Phone: 07-06-2022 15:45-0500 Body surface area Derived from formula 2.72 m2 Beena Benítez Work Phone: [facility] [employer] [address] DO Work Phone: 07-06-2022 15:45-0500 Body weight 168.74 kg Beena Benítez Work Phone: [facility] [employer] [address] DO Work Phone: 07-06-2022 15:45-0500 Diastolic blood pressure 80 mm[Hg] Beena Benítez Work Phone: [facility] 250 DO Work Phone: 07-06-2022 15:45-0500 Heart rate 64 /min Beena Benítez Work Phone: [facility] DO Work Phone: 07-06-2022 15:45-0500 Systolic blood pressure 118 mm[Hg] Beena Benítez Work Phone: [facility] [employer] 250 DO Work Phone: 06-15-2022 11:15-0500 Body height 175.26 cm Beena Benítez Other [employer] Other 06-15-2022 11:15-0500 Body mass index (BMI) [Ratio] 55.81 kg/m2 Beena Benítez Other [employer] Other 06-15-2022 11:15-0500 Body weight 171.46 kg Beena Benítez Other [employer] Other 06-15-2022 11:15-0500 Diastolic blood pressure 88 mm[Hg] Beena Benítez Other [employer] Other 06-15-2022 11:15-0500 SaO2% (BldA) [Mass fraction] 97 % Beena Benítez Other [employer] Other 06-15-2022 11:15-0500 Systolic blood pressure 130 mm[Hg] Beena Benítez Other [place] [employer] Other 03-09-2022 11:20-0400 Blood Pressure Location Kushal Page [facility] 03-09-2022 11:20-0400 Diastolic blood pressure 76 mm[Hg] Kushal Page [facility] 03-09-2022 11:20-0400 Heart rate 60 /min Kushal Page [facility] 03-09-2022 11:20-0400 Respiratory rate 18 /min Kushal Page [facility] 03-09-2022 11:20-0400 SaO2% (BldA) [Mass fraction] 98 % Kushal Page [facility] 03-09-2022 11:20-0400 Systolic blood pressure 140 mm[Hg] Kushal Page [facility] 02-05-2022 06:41-0400 Blood Pressure Location Kushal Page [facility] 02-05-2022 06:41-0400 Diastolic blood pressure 82 mm[Hg] Kushal Page [facility] 02-05-2022 06:41-0400 Heart rate 56 /min Kushal Page [facility] 02-05-2022 06:41-0400 Respiratory rate 20 /min Kushal Page [facility] 02-05-2022 06:41-0400 SaO2% (BldA) [Mass fraction] 100 % Kushal Page [facility] 02-05-2022 06:41-0400 Systolic blood pressure 150 mm[Hg] Kushal Page [facility] 01-23-2022 14:04-0400 Blood Pressure Location Kushal Page [facility] 01-23-2022 14:04-0400 Diastolic blood pressure 67 mm[Hg] Kushal Page [facility] 01-23-2022 14:04-0400 Heart rate 70 /min Kushal Page [facility] 01-23-2022 14:04-0400 Respiratory rate 18 /min Kushal Page [facility] 01-23-2022 14:04-0400 SaO2% (BldA) [Mass fraction] 97 % Kushal Page [facility] 01-23-2022 14:04-0400 Systolic blood pressure 140 mm[Hg] Kushal Page [facility] 12-31-2021 11:54-0400 Body height 177.8 cm Beena Benítez Work Phone: [facility] [address] DO Work Phone: 12-31-2021 11:54-0400 Body mass index (BMI) [Ratio] 52.95 kg/m2 Beena Benítez Work Phone: [facility] 320 DO Work Phone: 12-31-2021 11:54-0400 Body surface area Derived from formula 2.71 m2 Beena Benítez Work Phone: [facility] 320 DO Work Phone: 12-31-2021 11:54-0400 Body weight 167.38 kg Beena Benítez Work Phone: [facility] 320 DO Work Phone: 12-31-2021 11:54-0400 Diastolic blood pressure 84 mm[Hg] Beena Benítez Work Phone: [facility] 320 DO Work Phone: 12-31-2021 11:54-0400 Heart rate 67 /min Beena Benítez Work Phone: [facility] 320 DO Work Phone: 12-31-2021 11:54-0400 Systolic blood pressure 138 mm[Hg] Beena Benítez Work Phone: [facility] 320 DO Work Phone: 12-05-2021 15:01-0400 Blood Pressure Location Kushal Page [facility] 12-05-2021 15:01-0400 Diastolic blood pressure 69 mm[Hg] Kushal Page [facility] 12-05-2021 15:01-0400 Heart rate 70 /min Kushal Page [facility] 12-05-2021 15:01-0400 Respiratory rate 18 /min Kushal Page [facility] 12-05-2021 15:01-0400 SaO2% (BldA) [Mass fraction] 98 % Kushal Page [facility] 12-05-2021 15:01-0400 Systolic blood pressure 118 mm[Hg] Kushal Page [facility] 04-23-2021 16:19-0500 Body height 177.8 cm Beena Benítez Work Phone: [facility] 320 DO Work Phone: 04-23-2021 16:19-0500 Body mass index (BMI) [Ratio] 51.94 kg/m2 Beena Benítez Work Phone: [facility] 320 DO Work Phone: 04-23-2021 16:19-0500 Body surface area Derived from formula 2.69 m2 Beena Benítez Work Phone: [facility] 320 DO Work Phone: 04-23-2021 16:19-0500 Body weight 164.2 kg Beena Benítez Work Phone: [facility] 320 DO Work Phone: 04-23-2021 16:19-0500 Diastolic blood pressure 62 mm[Hg] Beena Benítez Work Phone: [facility] 320 DO Work Phone: 04-23-2021 16:19-0500 Heart rate 65 /min Beena Benítez Work Phone: [facility] 320 DO Work Phone: 04-23-2021 16:19-0500 Systolic blood pressure 108 mm[Hg] Beena Benítez Work Phone: [facility] 320 DO Work Phone: 10-09-2020 14:30-0400 Diastolic blood pressure 66 mm[Hg] Beena Benítez Other Phone: [facility] 10-09-2020 14:30-0400 Heart rate 50 /min Beena Benítez Other Phone: [facility] 10-09-2020 14:30-0400 Systolic blood pressure 133 mm[Hg] Beena Benítez Other Phone: [facility] 10-09-2020 13:00-0400 Body temperature 96.8 [degF] Beena Benítez Other Phone: [facility] 10-09-2020 13:00-0400 Respiratory rate 19 /min Beena Benítez Other Phone: [facility] 10-09-2020 13:00-0400 SaO2% (BldA) [Mass fraction] 98 % Beena Benítez Other Phone: [facility] 10-09-2020 02:15-0400 Body weight 159.4 kg Beena Benítez Other Phone: [facility] Encounters Encounter Date Encounter Type Care Provider Facility Start: 01-17-2024 End: 01-17-2024 ambulatory [facility] Start: 12-15-2023 End: 12-15-[address] [facility] Start: 11-10-2023 End: 11-10-2023 Subsequent hospital visit by physician Serina Myers Echo/Vasc Room 2 [facility] Comment on above: SOB (shortness of br eath); Chronic systolic congestive heart failure, NYHA class 2 (Multi); Ischemic cardiomyopathy Start: 11-10-2023 End: 11-10-2023 ambulatory [facility] Start: 10-04-2023 End: 10-04-2023 Office outpatient visit 25 minutes Margret Stevens MD Work Phone: [facility] Comment on above: SOB (shortness of br eath); Edema, unspecified type; Chronic systolic congestive heart failure, NYHA class 2 (Multi); Ischemic cardiomyopathy; 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; Paroxysmal atrial fibrillation (Multi); Lower leg edema; High risk medication use; Hypercoagulable state due to paroxysmal atrial fibrillation (Multi); Unspecified atrial fibrillation (Multi); Sleep apnea treated with continuous positive airway pressure (CPAP); Mixed hyperlipidemia; Medication course changed Start: 10-04-2023 End: 10-04-2023 ambulatory [facility] Start: 07-19-2023 End: 07-19-2023 ambulatory [facility] Start: 07-19-2023 End: 07-19-2023 Office outpatient visit 25 minutes Margret Stevens MD Work Phone: [facility] Comment on above: Paroxysmal atrial fi brillation (CMS/HCC); 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; Ischemic cardiomyopathy; Chronic systolic congestive heart failure, NYHA class 2 (CMS/HCC); Hypercoagulable state due to paroxysmal atrial fibrillation (CMS/HCC); Medication course changed; Mixed hyperlipidemia; High risk medication use Start: 05-07-2023 End: 05-07-2023 ambulatory Kelly Jane Other [employer] Other Start: 05-07-2023 Office outpatient vi sit 15 minutes Kelly Jane [facility] Start: 05-07-2023 Telephone encounter Beena Benítez [facility] Start: 03-08-2023 End: 03-08-2023 ambulatory Beena Benítez Other [employer] Other Start: 03-08-2023 Office outpatient vi sit 25 minutes Beena Benítez [facility] Start: 02-15-[address] Beena Benítez Facility: Start: 02-03-2023 Rx Renewal Beena Benítez Work Phone: [facility] DO Work Phone: Start: 01-28-2023 End: 01-28-2023 ambulatory Beena Benítez Other [employer] Other Start: 01-28-2023 Telephone encounter Beena Benítez [facility] Start: 12-03-[address] Beena Benítez Facility: Start: 11-30-[address] Beena Benítez Facility: Start: 11-30-2022 Patient encounter procedure Beena Benítez Work Phone: [facility] [facility] DO Work Phone: Start: 11-23-2022 Office outpatient ne w 45 minutes Beena Benítez Work Phone: [facility] DO Work Phone: Start: 11-23-[address] Margret Newman ty: Start: 10-27-2022 End: 10-28-[address] DOCTOR HOLDEN Facility:H1 Start: 10-12-2022 Telephone encounter Beena echavarria Work Phone: [facility] [facility] DO Work Phone: Start: 10-05-2022 Office outpatient vi sit 25 minutes Beena Benítez Work Phone: [facility] [facility] DO Work Phone: Start: 10-05-[address] Margret Newman ty: Start: 09-22-2022 Patient encounter procedure Beena Benítez Work Phone: [facility] [facility] DO Work Phone: Start: 09-17-2022 Chart Update Beena Benítez Work Phone: [facility] [facility] DO Work Phone: Start: 09-17-2022 End: 09-17-2022 ambulatory Beena Benítez Other [facility] [employer] Other Start: 09-17-2022 Telephone encounter Beena Benítez [facility] Start: 09-10-[address] Beena Benítez Facility:[id number] Start: 09-08-2022 End: 09-09-2022 Pre-admission assessment Kushal Page [facility] Start: 08-17-2022 Office outpatient vi sit 25 minutes Beena Benítez Work Phone: [facility] DO Work Phone: Start: 08-17-[address] Margret Newman ty: Start: 07-20-2022 End: 07-21-[address] DOCTOR HOLDEN Facility: Start: 07-06-2022 Office outpatient vi sit 25 minutes Beena Benítez Work Phone: [facility] DO Work Phone: Start: 07-06-[address] Margret Newman ty: Start: 06-23-2022 End: 06-23-2022 ambulatory Beena Benítez Other [employer] Other Start: 06-23-2022 Telephone encounter Beena Benítez [facility] Start: 06-15-2022 Office outpatient vi sit 25 minutes Beena Benítez [facility] Start: 06-15-2022 End: 06-16-[address] BEENA BENÍTEZ [place] [facility] [employer] Other Start: 06-02-2022 End: 06-02-2022 ambulatory Beena Benítez Other [employer] Other Start: 06-02-2022 Telephone encounter Beena Benítez [facility] Start: 03-09-2022 End: 03-10-2022 ambulatory XXXX NONE [place] [place] Start: 03-09-2022 End: 03-09-2022 Patient encounter procedure Kushal Page [facility] Start: 02-05-2022 End: 02-05-2022 ambulatory MD Kushal Page [place] [place] Start: 02-05-2022 End: 02-05-2022 Admission to same day surgery center Kushal Page [facility] Start: 01-28-2022 End: 01-29-2022 ambulatory MD Kushal Page [place] [place] Start: 01-28-2022 End: 01-28-2022 Patient encounter procedure Kushal Page [facility] Start: 01-23-2022 End: 01-24-2022 ambulatory MD Kushal Page [place] [place] Start: 01-23-2022 End: 01-23-2022 Patient encounter procedure Kushal Page [facility] Start: 01-21-2022 End: 04-23-2022 ambulatory MD Kushal Page Facility[place] [place] Start: 01-21-2022 End: 04-22-2022 Recurring Kushal Page [facility] Start: 01-19-2022 Rx Renewal Beena Benítez Work Phone: [facility] DO Work Phone: Start: 01-19-2022 End: 01-20-2022 ambulatory NONE LISTED REQUEST Facility: Start: 01-01-2022 Chart Update Beena Benítez Work Phone: [facility] 320 DO Work Phone: Start: 12-31-2021 Patient encounter procedure Beena Benítez Work Phone: [facility] 320 DO Work Phone: Start: 12-31-2021 Current tobacco non- user cad cap copd pv dm Beena Benítez Work Phone: [facility] [facility] DO Work Phone: Start: 12-05-2021 End: 12-06-2021 ambulatory MD Kushal Page Facility[place] [place] Start: 12-05-2021 End: 12-05-2021 Patient encounter procedure Kushal Page [facility] Start: 07-07-2021 Rx Renewal Beena E Jeyson Work Phone: [facility] [facility] DO Work Phone: Start: 04-23-2021 Office outpatient vi sit 25 minutes Beena Benítez Work Phone: [facility] 320 DO Work Phone: Start: 10-07-2020 End: 10-09-2020 Evaluation and management of inpatient Adam Romano 8 Cardio ICU 816 01 Patient encounter status Beena Benítez Work Phone: [facility] [facility] DO Work Phone: Procedures Date Procedure [...] of neck Spencer iel Camilo Hernia repair Beena Benítez Work Phone: Herniated structure (morphologic abnormality) Kushal Page Comment on above: 2009 Total colonoscopy Beena echavarria Work Phone: Plan of Treatment Date Care Activity Detail Author Start: 03-30-2031 DTaP/Tdap/Td Vaccines (2 - Tdap) DTaP/Tdap/Td Vaccines (2 - Tdap) [facility] Start: 07-17-2024 End: 07-17-2024 Patient encounter procedure [facility] Start: 06-19-2024 End: 06-19-2024 Patient encounter procedure 06/19/2024 10:45 AM EST Appointment [facility] [address] [phone] [facility] Start: 06-18-2024 End: 07-19-2024 CBC panel - Blood by Automated count CBC Lab Routine Paroxysmal atrial fibrillation (CMS/HCC) Hypercoagulable state due to paroxysmal atrial fibrillation (CMS/HCC) Expected: 06/18/2024 (Approximate), Expires: 07/19/2024 [facility] Work Phone: Comment on above: Expected: 06/18/2024 (Approximate), Expi res: 07/19/2024 Start: 06-18-2024 End: 07-19-2024 Comprehensive metabolic 2000 panel - Serum or Plasma Comprehensive Metabolic Panel Lab Routine Paroxysmal atrial fibrillation (CMS/HCC) 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 Ischemic cardiomyopathy Chronic systolic congestive heart failure, NYHA class 2 (CMS/HCC) Expected: 06/18/2024 (Approximate), Expires: 07/19/2024 [facility] Work Phone: Comment on above: Expected: 06/18/2024 (Approximate), Expi res: 07/19/2024 Start: 06-18-2024 End: 07-19-2024 Lipid 1996 panel - Serum or Plasma Lipid Panel Lab Routine 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 Mixed hyperlipidemia Expected: 06/18/2024 (Approximate), Expires: 07/19/2024 [facility] Work Phone: Comment on above: Expected: 06/18/2024 (Approximate), Expi res: 07/19/2024 Start: 01-30-2024 Influenza vaccination Influenza Vaccine (Season Ended) [facility] Start: 12-15-2023 End: 12-15-2023 Patient encounter procedure 12/15/2023 3:00 PM EDT Office Visit [address] [place] [address] Leonel Billy, ENGINE MANAGER-SQE [facility] [facility] [address] [place] [address] [facility] Start: 11-15-2023 End: 11-15-2023 Patient encounter procedure 11/15/2023 3:30 PM EDT Office Visit [address] [place] [address] Margret Stevens MD [address] [place] [address] [address] [place] [address] [facility] Start: 11-10-2023 End: 11-10-2023 Patient encounter procedure 11/10/2023 10:45 AM EDT Appointment [place] [id number] [facility] [address] [place] [address] [facility] Start: 10-11-2023 End: 10-03-2024 Basic metabolic 2000 panel - Serum or Plasma Basic Metabolic Panel Lab Routine SOB (shortness of breath) Edema, unspecified type Chronic systolic congestive heart failure, NYHA class 2 (Multi) Ischemic cardiomyopathy Medication course changed Expected: 10/11/2023 (Approximate), Expires: 10/03/2024 [facility] Work Phone: Comment on above: Expected: 10/11/2023 (Approximate), Expi res: 10/03/2024 Start: 10-04-2023 End: 10-03-2025 Heart Transthoracic Transthoracic Echo Complete Echocardiography Routine SOB (shortness of breath) Chronic systolic congestive heart failure, NYHA class 2 (Multi) Ischemic cardiomyopathy Expected: 10/04/2023 (Approximate), Expires: 10/03/2025 [facility] Work Phone: Comment on above: Expected: 10/04/2023 (Approximate), Expi res: 10/03/2025 Start: 08-02-2023 End: 07-19-2024 Basic metabolic 2000 panel - Serum or Plasma Basic Metabolic Panel Lab Routine Ischemic cardiomyopathy Chronic systolic congestive heart failure, NYHA class 2 (CMS/HCC) Expected: 08/02/2023 (Approximate), Expires: 07/19/2024 [facility] Work Phone: Comment on above: Expected: 08/02/2023 (Approximate), Expi res: 07/19/2024 Start: 07-19-2023 End: 07-19-2025 Heart Transthoracic Transthoracic Echo Complete Echocardiography Routine Ischemic cardiomyopathy Chronic systolic congestive heart failure, NYHA class 2 (CMS/HCC) Expected: 07/19/2023 (Approximate), Expires: 07/19/2025 [facility] Work Phone: Comment on above: Expected: 07/19/2023 (Approximate), Expi res: 07/19/2025 Start: 02-15-2023 FUV, Provider: Margret Stevens, Status: Pen, Time: 12:30 PM FUV, Provider: Margret Stevens, Status: Pen, Time: 12:[address] [facility] [address] DO Work Phone: Start: 01-29-2023 COVID-19 Vaccine ( season) COVID-19 Vaccine ( season) [facility] Start: 01-29-2023 Influenza vaccination Influenza Vaccine (#1) [facility] Start: 12-02-2022 HOLTER 48, Provider: VIN IZAGUIRRE [employer]ER 1,[id number], Status: Pen, Time: 9:00 AM HOLTER 48, Provider: VIN IZAGUIRRE [employer] 1,[id number], Status: Pen, Time: 9:00 AM [facility] DO Work Phone: Start: 11-23-2022 FUV, Provider: Margret Stevens, Status: Pen, Time: 3:00 PM FUV, Provider: Margret Stevens, Status: Pen, Time: 3:00 PM -[facility] 250 DO Work Phone: Start: 10-05-2022 FUV, Provider: Margret Stevens, Status: Pen, Time: 2:30 PM FUV, Provider: Margret Stevens, Status: Pen, Time: 2:30 PM -[facility] 250 DO Work Phone: Start: 09-10-2022 STRESS HERSON, Provider: CARLA LARSONI NUCLEAR 01,[id number], Status: Pen, Time: 9:00 AM STRESS HERSON, Provider: CARLA HHVI NUCLEAR 01,[id number], Status: Pen, Time: 9:00 AM [facility] DO Work Phone: Start: 08-17-2022 FUV, Provider: Margret Stevens, Status: Pen, Time: 3:15 PM FUV, Provider: Margret Stevens, Status: Pen, Time: 3:15 PM -[facility] [facility] DO Work Phone: Start: 10-29-2021 FUV, Provider: Adam Leo, Status: Pen, Time: 3:45 PM FUV, Provider: Adam Leo, Status: Pen, Time: 3:[address] [facility] [facility] DO Work Phone: Start: 10-09-2021 Creatinine measurement Creatinine Level [facility] Start: 10-09-2021 Diabetes mellitus screening Diabetes Screening [facility] Start: 10-09-2021 Potassium measurement Potassium Level [facility] Start: 10-09-2020 No post-op complications No post-op complications Date: 09-Oct-2020 [facility] Start: 10-09-2020 Prolonged QT interval Prolonged QT interval Date: 09-Oct-2020 [facility] Start: 2020 Arrhythmia Arrhythmia Date: 08-Oct-2020 [facility] Start: 10-07-2020 End: 2021 [facility] Comment on above: IF patient HAS a [...] 60+ years (1 - 1-dose 60+ series) [facility] Start: 10-09-2007 Zoster Vaccines (1 of 2) Zoster Vaccines (1 of 2) [facility] Start: 10-09-1975 Hepatitis C screening Hepatitis C Screening [facility] Start: 10-09-1963 Pneumococcal Vaccine: 65+ Years (1 - PCV) Pneumococcal Vaccine: 65+ Years (1 - PCV) [facility] Start: 10-09-1963 Pneumococcal Vaccine: 65+ Years (1 of 2 - PCV) Pneumococcal Vaccine: 65+ Years (1 of 2 - PCV) [facility] Start: 1958 MMR Vaccines (1 of 1 - Standard series) MMR Vaccines (1 of 1 - Standard series) [facility] Start: 1957 Annual wellness visit Medicare Initial Physical (IPPE) [facility] Start: 1957 Echocardiography Echocardiogram [facility] Start: 1957 Lipid panel Lipid Panel [facility] Start: 1957 Medicare Annual Wellness Visit Medicare Annual Wellness Visit (AWV) [facility] Start: 1957 Screening for malignant neoplasm of colon [facility] End: 11-10-2023 [facility] Work Phone: Comment on above: Once for 1 Occurrences starting 11/10/19 24 until 11/10/2023 Immunizations Immunization Date Immunization Notes Care Provider Fa [facility] 03-30-2021 diphtheria, tetanus toxoids and pertussis vaccine Beena Benítez Work Phone: [facility] 320 DO Work Phone: 09-30-2020 Pfizer-BioNTech COVI D-19 Vacc 30 MCG/0.3ML Intramuscular Suspension Beena Benítez Work Phone: [facility] 320 DO Work Phone: 09-10-2020 Pfizer-BioNTech COVI D-19 Vacc 30 MCG/0.3ML Intramuscular Suspension Beena Benítez Work Phone: [facility] 320 DO Work Phone: Payers Date Payer Category Payer Private Health Insurance 2021 Medicare AETNA MEDICARE A ETNA MEDICARE VALUE PLAN [id number] 2021-Present [address] [place] [address] [id number] 1959 Medicare [id number] [id number] 1957 Unknown [id number] 2.16.840.1.993227.3.579.2.1 8 1957 Unknown [id number] 2.16.840.1.112244.3.579.2.7 1957 Unknown [id number] 2.16.840.1.675585.3.579.2.7 1957 Unknown [id number] 2.16.840.1.993406.3.579.2.7 1957 Unknown [id number] 2.16.840.1.144318.3.579.2.7 1957 Unknown [id number] 2.16.840.1.642220.3.579.2.7 1957 Unknown [id number] 2.16.840.1.053556.3.579.2.7 1957 Unknown [id number] 2.16.840.1.080594.3.579.2.5 1957 Unknown [id number] 2.16.840.1.726107.3.579.2.5 1957 Unknown [id number] 2.16.840.1.649081.3.579.2.5 1957 Unknown [id number] 2.16.840.1.085825.3.579.2.5 1957 Unknown [id number] 2.16.840.1.065221.3.579.2.3 1957 Unknown [id number] 2.16.840.1.949525.3.579.2.3 1957 Unknown [id number] 2.16.840.1.905021.3.579.2.3 1957 Unknown [id number] 2.16.840.1.768528.3.579.2.3 1957 Unknown [id number] 2.16.840.1.101939.3.579.2.3 1957 Unknown [id number] 2.16.840.1.173605.3.579.2.3 56 1957 Unknown [id number] 2.16.840.1.211908.3.579.2.3 56 1957 Unknown [id number] 2.16.840.1.882114.3.579.2.1 246 1957 Unknown [id number] 2.16.840.1.566002.3.579.2.1 244 1957 Unknown [id number] 2.16.840.1.105843.3.579.2.1 244 1957 Unknown [id number] 2.16.840.1.452631.3.579.2.1 244 1957 Unknown [id number] 2.16.840.1.875130.3.579.2.1 244 Unknown Social History Date Type Detail Facility [place] Tobacco smoking consumption unknown [facility] Start: 07-19-2023 End: 10-04-2023 Never smoker Never smoker [place] [address] DO Work Phone: Comment on above: 2-3 cups of tea dudley y, 1 soda; Start: 05-30-2020 End: 07-19-2023 Tobacco smoking status Never smoked tobacco (finding) [facility] Start: 07-19-2023 End: 10-04-2023 Sex Assigned At Male [facility] Start: 07-19-2023 Tobacco use and exposure Smokeless tobacco non-user [facility] Work Phone: Start: 07-19-2023 End: 10-04-2023 Alcohol intake Current drinker of alcohol (finding) [facility] Work Phone: Start: 07-19-2023 Alcohol Comment occasional beer [facility] Work Phone: Start: 1955 Sex Assigned At Not on file [facility] Work Phone: Start: 07-09-2023 End: 11-10-2023 Exposure to SARS-CoV-2 (event) Not sure [facility] Functional Status Date Assessment Result Facility 03-09-2022 Functional Status N/A [facility] 02-05-2022 Functional Status Yes [facility] 01-23-2022 Functional Status N/A [facility] 12-05-2021 Functional Status N/A [facility] Functional observable [facility] Mental Status Date Assessment Result Facility 10-09-2020 Cognitive functions 79508:[id number] [facility] Clinical Notes 10-07-2020 to 10-04-2023 Margret Stevens MD - 10/04/2023 1:45 PM EDTPatient InstructionsMargret Stevens MD - 07/19/2023 3:00 PM ESTPatient Instructions Note Date & Type Note Facility 10-04-2023 Note Normal sinus rhythm poor R wave progression normal intervals no change compared to previous EKG [facility] 10-04-2023 History of Present illness Narrative This [...] per 2D echocardiogram dated June 07, 2020, [place] [employer] class II, stage B heart failure. 10. Gouty arthritis. Patient remains on allopurinol, no recent recurrence. 11. Abnormal perfusion imaging showing an LV ejection fraction in the 20s, with subsequent cardiac catheterization showing LV ejection fraction of 45%, this was done at [facility] and that particular Catheterization did [...] This is consistent with chronotropic blunting. 13. [id number] score is 6 14.48-hour Holter monitor-minimum heart [...] Metabolic Panel 5. 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 6. Paroxysmal atrial [...] discussion and plan. documented in this encounter [facility] Work Phone: 10-04-2023 Instructions Judy [...] in office today documented in this encounter [facility] Work Phone: 07-19-2023 History of [...] per 2D echocardiogram dated June 07, 2020, [place] [employer] class II, stage B heart failure. 10. Gouty arthritis. Patient remains on allopurinol, no recent recurrence. 11. Abnormal perfusion imaging showing an LV ejection fraction in the 20s, with subsequent cardiac catheterization showing LV ejection fraction of 45%, this was done at [facility] and that particular Catheterization did [...] This is consistent with chronotropic blunting. 13. [id number] score is 6 14.48-hour Holter monitor-minimum heart [...] redirect to the Timeline version of the [employer]. Wt Readings from Last 3 Encounters: [...] Noted Hypercoagulability due to atrial fibrillation ([facility]) 07/19/2023 Medication course changed 07/19/2023 Chronic systolic congestive heart failure, NYHA class 2 ([facility]) 07/19/2023 High risk medication use 07/19/2023 Abnormal electrocardiogram 05/05/2023 Atrial fibrillation (CMS/HCC) 05/05/2023 CAD (coronary artery disease) 05/05/2023 Cardiomyopathy (CMS/HCC) 05/05/2023 COVID-19 05/05/2023 SOB (shortness of breath) 05/05/2023 Assessment: 1. Paroxysmal atrial fibrillation (CMS/HCC) Follow Up In Cardiology ECG 12 Lead CBC Comprehensive Metabolic Panel CBC Comprehensive Metabolic Panel 2. 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 Follow Up In [...] Margret Stevens MD. documented in this encounter [facility] Work Phone: 07-19-2023 Instructions Clarisa [...] Increase physical activity. documented in this encounter [facility] Work Phone: 05-07-2023 Evaluation note [...] the ER for worsening symptoms or concerns [employer] Other 10-09-2023 Evaluation note* Encounter Date Diagnosis [...] as directed. Feb, 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 (ICD-10 - I25.10) Continue care w [facility] Feb, GAYLE (obstructive sleep apnea) (ICD-10 - G47.33) Continue care w Dr. Noble. [facility] Other 05-01-2023 History of Present illness Narrative* [...] per 2D echocardiogram dated June 07, 2020, [place] [employer] class II, stage B heart failure. * 10. Gouty arthritis. Patient remains on allopurinol, no recent recurrence. * 11. Abnormal perfusion imaging showing an LV ejection fraction in the 20s, with subsequent cardiac catheterization showing LV ejection fraction of 45%, this was done at [facility] and that particular Catheterization did [...] is consistent with chronotropic blunting. * 13. [id number] score is 6 * Laboratory data from [...] prohibitively expensive-pleaseconsider Ozempic or Rybelsus-defer to primary/endocrinology. -[facility] DO Work Phone: [phone]) 514-228705-01-2023 History of Present illness Narrative* Patient was [...] trace lower extremity edema, could not afford [employer], hence did not start. * History so [...] per 2D echocardiogram dated June 07, 2020, [place] [employer] class II, stage B heart failure. * 10. Gouty arthritis. Patient remains on allopurinol, no recent recurrence. * 11. Abnormal perfusion imaging showing an LV ejection fraction in the 20s, with subsequent cardiac catheterization showing LV ejection fraction of 45%, this was done at [facility] and that particular Catheterization did [...] is consistent with chronotropic blunting. * 13. [id number] score is 6 * Laboratory data from [...] prohibitively expensive-pleaseconsider Uriel or Juan-defer to primary/endocrinology. -[facility] 250 DO Work Phone: [phone]) 682-663605-01-2023 History of Present illness Narrative* Patient was [...] per 2D echocardiogram dated June 07, 2020, [place] [employer] class II, stage B heart failure. * 10. Gouty arthritis. Patient remains on allopurinol, no recent recurrence. * 11. Abnormal perfusion imaging showing an LV ejection fraction in the 20s, with subsequent cardiac catheterization showing LV ejection fraction of 45%, this was done at [facility] and that particular Catheterization did [...] is consistent with chronotropic blunting. * 13. [id number] score is 6 * Laboratory data from [...] prohibitively expensive-pleaseconsider Uriel or Juan-defer to primary/endocrinology. -[facility]-Carla French DO Work Phone: 1(142) 314-680404-01-2023 History of Present illness Narrative* Patient with [...] per 2D echocardiogram dated June 07, 2020, [place] Heart [employer] class II, stage B heart failure. * 10. Gouty arthritis. Patient remains on allopurinol, no recent recurrence. * 11. Abnormal perfusion imaging showing an LV ejection fraction in the 20s, with subsequent cardiac catheterization showing LV ejection fraction of 45%, this was done at [facility] and that particular Catheterization did [...] for his unrelenting fatigue and foggy brain. -[facility]-Carla 250 DO Work Phone: 1(280) 357-593501-16-2023 Evaluation note* Encounter Date Diagnosis Assessment Notes Treatment Notes Treatment Clinical Notes May, Type 2 diabetes mellitus with hyperglycemia, without long-term current use of insulin (ICD-10 - E11.65) chronic problem - may increase or add med based on lab results May, Essential (primary) hypertension (ICD-10 - I10) chronic and controlled adequately at this time. May, 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 (ICD-10 - I25.10) May, BMI 50.0-59.9, adult (ICD-10 - Z68.43) Pt is encouraged to lose weight, change diet, and increase exercise as tolerated. [facility] [employer] Other 09-12-2022 Note [id number] 02-05-2022 Evaluation + Plan noteExtracted from: Title:Procedure [...] Scheduled Tests Laboratory* Basic Metabolic Panel 06/06/21 [facility]09-08-2022 Hospital Discharge instructions Patient Education 02/05/2022 10:35:09 CV - Cardiovascular Discharge Instructions (CUSTOM) [place], [place] CARDIOVASCULAR DISCHARGE INSTRUCTIONS Diet: Resume pre-procedure [...] hours post procedure: Actoplus MetGlucophageGlucophage XR GlucovanceAvandametFortamet Ghh-slacyarndDbubglNngm-emszivfxj GlumetzaJanumetMetaglip RiometGlycomet *Minimal pain, soreness and/or discomfort [...] you are interested in smoking cessation, contact [facility] [place] [phone], ext. [phone]. In the event you are unable to reach your physician, please call [facility] at [phone] and the searchlight operator will assist you. Seek Immediate Medical Care for: Bleeding: Apply continuous pressure to the site and Call 911. Should the arm or leg become cold, numb, blue or white call your physician immediately. Signs of infection are redness, warmth, swelling, increased tenderness, colored drainage, fever or chills Chest pain Follow Up Care 01/27/2022 09:04:57 With:Kushal Page Address: [address] [place] [phone]- [phone] Business (1) When:03/09/2022 11:15:00 [facility]09-08-2022 NoteProcedure The risk/benefits of the procedure [...] Education Routine Capillary Glucose POC [facility]:Result Comment: Electronically Signed By: Camilo STARK, Kushal Moran.br\Date and Time Signed: 02/05/22 06:47 [id number] Evaluation + Plan note Future Scheduled Tests Laboratory* Basic Metabolic Panel 06/06/21 [facility]05-12-2021 Hospital Discharge instructions* Follow Up Appointment 1:Physician/Dept/Service: Kaity Zapata ([facility]Scheduled Date/Time: [id number]: [facility] Romano officePhone Number: [phone] [facility]05-10-2021 History of Present illness Narrative* 65-year-old male who is followed for persistent atrial fibrillation. He underwent antiarrhythmic drug loading with sotalol October 07, 2020 and presents to the office today for follow-up evaluation. His carvedilol was discontinued due to heart rates in the 40s post drug loading. He did require cardioversion on October 09, 2020 for uatsdin of sinus rhythm. * Since the last [...] per 2D echocardiogram dated June 07, 2020, [place] Heart Association class II, stage B heart [...] software was utilized to prepare this document. [facility] 320 DO Work Phone: 1(771) 732-160605-10-2021 History of Present illness Narrative* 65-year-old male who is followed for persistent atrial fibrillation. He underwent antiarrhythmic drug loading with sotalol October 07, 2020 and presents to the office today for follow-up evaluation. His carvedilol was discontinued due to heart rates in the 40s post drug loading. He did require cardioversion on October 09, 2020 for uatsdin of sinus rhythm. * Since the last [...] per 2D echocardiogram dated June 07, 2020, [place] Heart Association class II, stage B heart [...] software was utilized to prepare this document. [facility] Work Phone: Evaluation + Plan note Future Appointments Appointment Date:01/23/2022 03:00:00 PM Scheduled Provider:Kushal Page MD Location:.Cardiology Clinic Appointment Type:Cardiology Follow Up (FT) Future Scheduled Tests Laboratory* Basic Metabolic Panel 06/06/21 Radiology* NM Myocardial Spect Rest/Stress 2 Day [facility]05[facility] Future Appointments Appointment Date:02/05/2022 08:00:00 AM Scheduled [facility]: [facility] (FT) Future Scheduled Tests Laboratory* Basic Metabolic Panel 06/06/21 Radiology* CV Cardiovascular [facility]05/22 [facility] Future Appointments Appointment Date:09/08/2022 03:15:00 PM Scheduled Provider:Kushal Page MD [facility] Type:Cardiology Follow Up (FT) Future Scheduled Tests Laboratory* Basic Metabolic Panel 06/06/21 [facility]* Musculoskeletal: ROM intact, no joint [...] wounds, or clubbingPsychological: Appropriate mood and behavior [facility] [employer] Other Evaluation note* Diagnosis Paroxysmal atrial fibrillation (CMS/HCC) Atrial fibrillation 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 Ischemic cardiomyopathy Other specified forms of chronic ischemic heart disease Chronic systolic congestive heart failure, NYHA class 2 (CMS/HCC) Hypercoagulable state due to paroxysmal atrial fibrillation (CMS/HCC) Medication course changed Mixed hyperlipidemia High risk medication use documented in this encounter [facility] Work Phone: Evaluation note* Diagnosis SOB (shortness of breath) Shortness of breath Edema, unspecified type Chronic systolic congestive heart failure, NYHA class 2 (Multi) Ischemic cardiomyopathy Other specified forms of chronic ischemic heart disease 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 Paroxysmal atrial fibrillation (Multi) Atrial fibrillation Lower leg edema High risk medication use Hypercoagulable state due to paroxysmal atrial fibrillation (Multi) Unspecified atrial fibrillation (Multi) Sleep apnea treated with continuous positive airway pressure (CPAP) Mixed hyperlipidemia Medication course changed documented in this encounter [facility] Work Phone: Evaluation note* Diagnosis SOB (shortness of breath) Shortness of breath Chronic systolic congestive heart failure, NYHA class 2 (Multi) Ischemic cardiomyopathy Other specified forms of chronic ischemic heart disease documented in this encounter [facility] Work Phone: History general Narrative - Reported* Type Description Date Medical History Gout Medical History Depression Medical History HTN Medical History stroke Medical History Atrial fibrillation Medical History DM Surgical History Back surgery Surgical History Hernia Surgical History Mass removed from skin of neck Surgical History heart cath with stent placed Hospitalization History See past surgical hx Hospitalization History Stroke 05/2019 [place] [facility] [employer] Other History of Present illness Narrative* Patient is new to this provider, he is accompanied by his who works at [employer] in the cafeteria. Prior records [...] function test, and Lexiscan stress test at [facility]. He states he has absolutely no energy and is easily fatigued, he is short of breath and he has a nonproductive cough. He denies fever or chills. He isaccompanied by his who questions whether he may change his cardiology follow-up to [facility] due to proximity to home. * Patient wishes to establish care at [facility]. Predominant complaints are unrelenting fatigue, short-term memory [...] per 2D echocardiogram dated June 07, 2020, [place] Heart Association class II, stage B heart failure. * 10. Gouty arthritis. Patient remains on allopurinol, no recent recurrence. * 11. Abnormal perfusion imaging showing an LV ejection fraction in the 20s, with subsequent cardiac catheterization showing LV ejection fraction of 45%, this was done at [facility] and that particular Catheterization did not show any flow-limiting disease. The perfusion study was done in December 2021, cardiac catheterization from January 2022 showed nonobstructive coronary artery disease of theleft system widely patent RCA stent LVEF 45% moderately dilated left ventricular chamber dimension mildly elevated LV end-diastolic pressure. * EKG from today shows normal sinus rhythm at 64 bpm GA interval 148 ms QRS duration 106 ms [...] ALT and AST mildly elevated hemoglobin 13.4. -[facility]-[place] 250 DO Work Phone: History of Present illness Narrative* Patient with atherosclerotic grayling vessel coronary artery disease, multiple cardiac risk [...] per 2D echocardiogram dated June 07, 2020, [place] Heart Association class II, stage B heart failure. * 10. Gouty arthritis. Patient remains on allopurinol, no recent recurrence. * 11. Abnormal perfusion imaging showing an LV ejection fraction in the 20s, with subsequent cardiac catheterization showing LV ejection fraction of 45%, this was done at [facility] and that particular Catheterization did [...] will defer to sleep medicine * Recommendations: [facility]-Carla 250 DO Work Phone: History of Present illness Narrative* Patient with atherosclerotic grayling vessel coronary artery disease, multiple cardiac risk [...] per 2D echocardiogram dated June 07, 2020, [place] Heart [employer] class II, stage B heart failure. * 10. Gouty arthritis. Patient remains on allopurinol, no recent recurrence. * 11. Abnormal perfusion imaging showing an LV ejection fraction in the 20s, with subsequent cardiac catheterization showing LV ejection fraction of 45%, this was done at [facility] and that particular Catheterization did [...] will defer to sleep medicine * Recommendations: [facility] Work Phone: Hospital course Narrative No data available for this section [facility] No data available for this section [facility] No data available for this section [facility] Chief Complaint Patient is here today [...] function test, and Lexiscan stress test at [facility]. He states he has absolutely no energy andis easily fatigued, he is short of breath and he has a nonproductive cough. He denies fever or chills. He is accompanied by his who questions whether he may change his cardiology follow-up to [facility] due to proximity to home. * Physical [...] per 2D echocardiogram dated June 07, 2020, [place] Heart [employer] class II, stage B heart failure. * 10. Gouty arthritis. * Recommendations: * 1. Continue current medications as prescribed. * 2. I discussed with the patient that he may follow-up with a snow groomer in [facility] as requested. He was instructed to notify [facility] if he requires any medical records to [...] (Multi) Ischemic cardiomyopathy Procedures Transthoracic Echo Complete GA ECHO TTHRC R-T 2D W/WOM-MODE COMPL SPEC&COLR D Margret Stevens MD [address] [place] [address] Referral ID Status Reason Start Date Expiration Date Visits Requested Visits Authorized [id number] Pending Review Perform Procedure 10/04/2023 10/03/2024 1 1 Specialty Diagnoses / Procedures Referred By Contac t Referred To Contact Diagnoses Paroxysmal atrial fibrillation (Multi) Procedures ECG 12 Lead Margret Stevens MD [address] [place] [address] Referral ID Status Reason Start Date Expiration Date V isits Requested Visits Authorized [id number] Authorized 10/04/2023 10/03/2024 1 1 Specialty Diagnoses / Procedures Referred By Contac t Referred To Contact Cardiology Diagnoses Ischemic cardiomyopathy Procedures Follow Up In Cardiology Margret Stevens MD [address] [place] [address] Margret Stevens MD [address] [place] [address] Referral ID Status Reason Start Date Expiration Date V isits Requested Visits Authorized [id number] Authorized 10/04/2023 10/03/2024 1 1 Specialty Diagnoses / Procedures Referred By Contac t Referred To Contact Cardiology Diagnoses Ischemic cardiomyopathy Chronic systolic congestive heart failure, NYHA class 2 (CMS/HCC) Procedures Transthoracic Echo Complete GA ECHO TTHRC R-T 2D W/WOM-MODE COMPL SPEC&COLR D Margret Stevens MD [address] [place] [address] Referral ID Status Reason Start Date Expiration Date Visits Requested Visits Authorized [id number] Pending Review Perform Procedure 07/19/2023 07/18/2024 1 1 Specialty Diagnoses / Procedures Referred By Contac t Referred To Contact Diagnoses Paroxysmal atrial fibrillation (CMS/HCC) Procedures ECG 12 Lead Margret Stevens MD [address] [place] [address] Referral ID Status Reason Start Date Expiration Date V isits Requested Visits Authorized [id number] Authorized 07/19/2023 07/18/2024 1 1 Specialty Diagnoses / Procedures Referred By Contac t Referred To Contact Cardiology Diagnoses Paroxysmal atrial fibrillation (CMS/HCC) 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 Ischemic cardiomyopathy Procedures Follow Up In Cardiology Margret Stevens MD [address] [place] [address] Margret Stevens MD [address] [place] [address] Referral ID Status Reason Start Date Expiration Date V isits Requested Visits Authorized [id number] Authorized 07/19/2023 07/18/2024 1 1 Reason 07/06/22 Carla office, scanning recent documents we have from [facility], but we do not have all of them Diagnosis 1 Coronary artery dise ase involving grayling coronary artery of grayling heart without angina pectoris (I25.10) Referral Organization [facility] conrad Referring Provider First Name Beena Referring Provider Last Name Jeyson Referring Provider Specialty [facility] Referred Organization [facility] Referred Provider Albaro Au Referred Address [address] [place] [address] [place], [place],[address] Referred Provider Specialty Internal Med icine Referral Priority Routine Referral Appointment Date 2022-07-06 General Notes Gerri Davis 11:54:25 AM >received today, ins card attached along with previous [facility] [place]. referral faxed to [...] section and content) DATE CREATED AUTHOR 07/24/2021 [facility] DATE CREATED AUTHOR AUTHOR'S ORGANIZ ATION 09/12/2022 [facility] DATE CREATED AUTHOR AUTHOR'S ORGANIZ ATION 09/26/2022 [facility] DATE CREATED AUTHOR AUTHOR'S ORGANIZ ATION 11/06/2022 [facility] DATE CREATED AUTHOR AUTHOR'S ORGANIZ ATION 02/16/2023 [employer] DATE CREATED AUTHOR AUTHOR'S ORGANIZ ATION 02/16/2023 [facility] DATE CREATED AUTHOR AUTHOR'S ORGANIZ ATION 12/18/2023 [facility] DATE CREATED AUTHOR AUTHOR'S ORGANIZ ATION 01/18/2024 [facility] Cpht Team (unrecognized sect ion and content) Customer Relations Advisor Relationship Specialty Start Date End Date Beena Benítez MD [facility] [place] [address] [place] [address] PCP - General Family Medicine 07/19/23 Customer Relations Advisor Relationship Specialty Start Date End Date Beena Benítez MD PCP - General Family Medicine 07/19/23 Customer Relations Advisor Relationship Specialty Start Date End Date Beena Benítez MD PCP - General Family Medicine 07/19/23 REASON FOR VISIT (unrecogniz ed section and content) Reason Comments Follow-up 5 month Specialty Diagnoses / Procedures Referred By Contac t Referred To Contact Diagnoses Paroxysmal atrial fibrillation (CMS/HCC) Procedures ECG 12 Lead Margret Stevens MD [address] [facility] [address] [place] [address] Referral ID Status Reason Start Date Expiration Date V isits Requested Visits Authorized [id number] Authorized 07/19/2023 07/18/2024 1 1 Reason Comments Follow-up Sooner OV - last wed lower edema, med change Specialty Diagnoses / Procedures Referred By Contac t Referred To Contact Cardiology Diagnoses SOB (shortness of breath) Edema, unspecified type Procedures Follow Up In Cardiology Margret Stevens MD [address] [facility] [address] [place] [address] Margret Stevens MD [address] [facility] [address] [place] [address] Referral ID Status Reason Start Date Expiration Date V isits Requested Visits Authorized [id number] Authorized 09/23/2023 09/22/2024 1 1 Specialty Diagnoses / Procedures Referred By Contac t Referred To Contact Cardiology Diagnoses SOB (shortness of breath) Chronic systolic congestive heart failure, NYHA class 2 (Multi) Ischemic cardiomyopathy Procedures Transthoracic Echo Complete GA ECHO TTHRC R-T 2D W/WOM-MODE COMPL SPEC&COLR D Margret Stevens MD [address] [facility] [address] [place] [address] Referral ID Status Reason Start Date Expiration Date Visits Requested Visits Authorized [id number] Authorized Perform Procedure 10/04/2023 10/03/2024 1 1 [...] BE BASED ON THE PRIMARY CLINICAL RECORDS. [employer] [facility]. provides no warranty or guarantee of the accuracy or completeness of information in this document.
[2024-02-15 09:16] LABS: Estimated Average Glucose 163 mg/dL; Glycohemoglobin A1C 7.3 % (4.5-6.2)
== END 2024-02-15 07:59 | disposition home or self-care (01) ==
LOC: LAB 07:59
PROVIDERS: PCP Family Medicine; Visit Provider Family Medicine
DX: E11.9 Type 2 diabetes mellitus without complications (principal)
CPT/HCPCS: 36415; 83036

== ENCOUNTER 2024-07-12 06:28 | Outpatient (OUT) | payer MEDICARE, SELFPAY ==
--- OUTSIDE RECORDS SUMMARY | 2024-07-12 06:33 | XMS_ITS | CCD ---
Author Organization [facility] Care Team Providers Care Refuge Manager Name Role Phone Beena Benítez Unavailable Adam Leo Unavailable Akil Morrow Unavailable Beena Benítez Unavailable Unavailable Unavailable BEENA BENÍTEZ Primary Care Physician [phone] Beena Benítez Unavailable Dr. Beena Benítez Primary [...] ANTONIO, DR LORENA Banks Consulting Unavailable SAMSA ., TOÑA Admitting Unavailable SAMSA ., TOÑA Attending Unavailable SAMSA ., TOÑA Consulting Unavailable MISC, DR FLORES Attending Unavailable JEYSON, DR BEENA Albarado Primary Care Unavailable MISC, DR FLORES Admitting Unavailable MISC, DR FLORES Consulting Unavailable MISC, DR FLORES Attending Unavailable JEYSON, DR BEENA Albarado Primary Care Unavailable MISC, DR FLORES Admitting Unavailable MISC, DR FLORES Consulting Unavailable JEYSON, DR BEENA Albarado Admitting Unavailable JEYSON, DR BEENA Albarado Primary Care Unavailable JEYSON, DR BEENA Albarado Consulting Unavailable JEYSON, DR BEENA Albarado Attending Unavailable Stevens, Dr. [...] Unav ailable Stevens, Dr. Oswald Referring Unavailable Lucinda Kelly Unavailable Beena Benítez MD Primary Care Provider [phone] Beena Benítez MD Primary Care Provider [phone] Beena Benítez MD Primary Care Provider [phone] MICHAEL MARGRET Referring Unavailable BEENA BENÍTEZ Primary Care Unavailable SHILPI STEVENSA Attending Unavailable BEENA BENÍTEZ Primary Care Unavailable SHILPI STEVENSA Attending Unavailable STEVENS, MARGRET Referring Unavailable BEENA BENÍTEZ Primary Care Unavailable LEONEL BILLY Attending Unavailable STEVENS, MARGRET Referring Unavailable BEENA BENÍTEZ Primary Care Unavailable STEVENSSHILPIA Attending Unavailable LEONEL BILLY Referring Unavailable BEENA BENÍTEZ Primary Care Unavailable Beena Benítez MD Primary Care Provider Allergies Allergy Classification Reported Allergen(s) Allergy Type Date of Onset Reaction(s) Facility (1 source) No Known Medication Allergies; Translations: [No Known Medication Allergies] Propensity to adverse reactions (disorder) [facility] Repository (10 sources) dapagliflozin; Translations: [Farxiga TABS] Drug Allergy -[facility] 250 DO Work Phone: Medications Current Medications [...] Ordered: 07-Oct-2020 Andreia Petersen Generic Substitution Allowed apple cider vinegar 600 mg oral capsule (2 sources) take 1 capsule by mouth twice daily apple cider vinegar 600 mg capsule Take 1 capsule by mouth 2 times a day. Active Aspir-81 (8 sources) Aspir-81 Active clopidogrel 75 mg oral tablet (20 sources) P2Y12 Platelet Inhibitor Start: 2 End: 3 take 1 tablet by mouth once daily Plavix 75 mg Tab 75 mg = 1 tab(s), Oral, Daily, X 90 day(s), # 90 tab(s), Refills(s) 3, Pharmacy: [facility]/pharmacy #[id number], 178, cm, 01/23/22 14:05:00 EDT, Height/Length Dosing, 170, kg, 01/23/22 14:05:00 EDT, Weight Dosing Start Date: 01/24/22 Stop Date: 01/19/23 Status: Ordered Start: 01-23-2022 take 4 tablets by mouth once P lavix 75 mg Tab 300 mg = 4 tab(s), Oral, Once, 300 mg Loading Dose, # 4 tab(s), Refills(s) 0, Pharmacy: [facility]/pharmacy #[id number], 178, cm, 01/23/22 [...] Refills(s) 0 Start Date: 03/06/20 Status: Ordered colchicine 0.6 m g tablet Take 1 tablet (0.6 mg) by mouth if needed for muscle/joint pain. As needed Active Colchicine 0.6 M G [...] DULoxetine 60 mg delayed release oral capsule (11 sources) Serotonin and Norepinephrine Reuptake Inhibitor Start: 11-05-2022 take 1 capsule by mouth once daily DULoxetine (Cymbalta) [address] capsule Take 1 capsule (60 mg) by mouth once daily. 03/01/2023 Active furosemide 20 mg oral tablet (15 sources) Loop Diuretic Start: 12-15-2023 End: 12-14-2024 take 1 tablet by mouth once daily furosemide (Lasix) 20 mg tablet Indications: Ischemic cardiomyopathy , SOB (shortness of breath) Take 1 tablet (20 mg) by mouth once daily. 30 tablet 11 12/15/2023 12/14/2024 Active Start: 10-04-2023 End: 10-03-2024 take 1 tablet by mouth twice daily furosemide (Lasix) 20 mg tablet Indications: SOB (shortness of breath) , Edema, unspecified type , Chronic systolic congestive heart failure, NYHA class 2 (Multi) Take 1 tablet (20 mg) by mouth 2 times a day. 180 tablet 3 10/04/2023 12/15/2023 Discontinued (Dose adjustment) Start: 08-20-2023 End: 10-04-2023 take 1 tablet [...] day(s), # 90 tab(s), Refills(s) 3, Pharmacy: [facility]/pharmacy #[id number], 179, cm, 03/09/22 [...] day(s), # 180 tab(s), Refills(s) 3, Pharmacy: [facility]/pharmacy #[id number], 178, cm, 06/20/21 [...] MG 1 tablet once a day Active magnesium oxide 400 mg oral tablet (20 sources) Start: 12-22-2023 take 1 tablet by mouth once daily magnesium oxide (Mag-Ox) 400 mg (241.3 mg magnesium) tablet Indications: Unspecified atrial fibrillation (Multi) TAKE 1 TABLET BY MOUTH EVERY DAY 90 tablet 3 12/22/2023 Active Start: 12-21-2022 take 1 tablet by inocencio th once daily Magnesium Oxide -Mg Supplement 400 [...] (400 mg) by mouth once daily. Active metFORMIN hydrochloride 500 mg oral tablet [...] Substitution Allowed modafinil 100 mg oral tablet (9 sources) Sympathomimetic-like Agent Start: 01-26-2023 take 1 [...] Andreia Petersen Generic Substitution Allowed multivitamin tablet (5 sources) take 1 tablet by inocencio th [...] (20 sources) Proton Pump Inhibitor Start: 12-08-2021 omeprazole (PriLOSEC) [address] capsule Take 1 capsule (20 mg) by mouth if needed (GERD). 03/21/2023 Active Ozempic 0.25 mg or 0.5 mg (2 mg/3 mL) pen injector (5 sources) Start: 01-23-2024 End: 02-22-2024 inject 0.5 mg by subcutaneous injection every week Ozempic 0.25 mg or 0.5 mg (2 mg/3 mL) pen injector Indications: Coronary artery disease involving hoonah coronary artery 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 Inject 0.5 mg under the skin 1 (one) time per week. 3 mL 01/23/2024 02/22/2024 Active Start: 09-16-2023 End: 01-17-2024 Ozempic 0.25 mg or 0.5 mg (2 mg/3 mL) pen injector Inject 1 mg under the skin 1 (one) time per week. 09/16/2023 01/17/2024 Discontinued (Reorder) Start: 09-16-2023 Ozempic 0.25 m g or 0.5 mg (2 mg/3 mL) pen injector 1 (one) time per week. 09/16/2023 Active predniSONE 20 mg oral tablet (2 [...] Active rosuvastatin calcium 20 mg oral tablet (20 sources) HMG-CoA Reductase Inhibitor Start: 08-17-2022 End: [...] : 06-Jul-2022 Active stop losartan/ new start 1 mg dose 1.5 ml semaglutide 1.34 mg/ml pen injector (1 source) Start: 01-23-2024 End: 01-22-2025 inject 1 mg by subcutaneous injection every week semaglutide (Ozempic) 1 mg/dose (2 mg/1.5 mL) pen injector Indications: Coronary artery disease involving hoonah coronary artery 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 Inject 1 mg under the skin 1 (one) time per week. 3 mL 3 01/23/2024 01/22/2025 Active sotalol hydrochloride 80 mg oral tablet (20 [...] Status: Ordered spironolactone 25 mg oral tablet (5 sources) Aldosterone Antagonist Start: 10-04-2023 End: 12-14-2024 take 1 tablet by mouth once daily spironolactone (Aldactone) 25 mg tablet Indications: SOB (shortness of breath) , Edema, unspecified type , Chronic systolic congestive heart failure, NYHA class 2 (Multi) Take 1 tablet (25 mg) by mouth once daily. 90 tablet 3 12/15/2023 12/14/2024 Active 24 hr venlafaxine 37.5 mg extended [...] Start: 05-17-2020 take 2 tablets by mo [facility] at bedtime atorvastatin 40 mg Tab [...] Toradol per 15 mg Jan, 60 mg Multi Vitamin Oral Tablet (20 sources) take 1 tablet by mouth once daily Multi Vitamin Oral Tablet TAKE 1 TABLET DAILY. Quantity: 0 Refills: 0 Ordered: 14-Apr-2021 DO Active perflutren protein A microsphere (Optison) injection 0.5 mL (1 source) Start: 11-10-2023 End: 11-10-2023 0.5 mL, intravenous, Once, On Wed11/10/23 at 1130, For 1 dose microencapsulated potassium chloride 20 meq extended release oral tablet (4 sources) Start: 08-20-2023 End: 10-03-2024 take 1 tablet by mouth once daily potassium chloride CR (Klor-Con M20) 20 mEq ER tablet Indications: SOB (shortness of breath) , Edema, unspecified type Take 1 tablet (20 mEq) by mouth once daily. Do not crush or chew. 90 tablet 3 10/04/2023 12/15/2023 Discontinued (Therapy completed) 12 hr ranolazine 500 mg extended release oral tablet (2 sources) Anti-anginal Start: 12-15-2023 End: 12-14-2024 take 1 tablet by mouth twice daily ranolazine (Ranexa) 500 mg 12 hr tablet Indications: SOB (shortness of breath) , Coronary artery disease involving hoonah coronary artery 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 Take 1 tablet (500 mg) by mouth 2 times a day. Do not crush, chew, or split. 60 tablet 11 12/15/2023 01/17/2024 Discontinued (Therapy completed) sulfamethoxazole 800 mg / trimethoprim 160 mg oral tablet (2 sources) Dihydrofolate Reductase Inhibitor Antibacterial, Sulfonamide Antimicrobial Start: 04-08-2021 Sulfamethoxazole- Trimethoprim 800-160 MG Oral Tablet Quantity: 14 Refills: 0 Ordered: 08-Apr-2021 DO Start : 08-Apr-2021 Complete triamcinolone acetonide 40 mg/ml injectable suspension (10 sources) Corticosteroid Start: 05-07-2023 Kenalog-40 Apr, 40 mg Start: 10-25-2018 KENALOG [...] 3 2020 Chronic Coagulation and hemorrhagic disorders (12 sources) Other thrombophilia; Translations: [Secondary hypercoagulable state] Onset: 4 07-19-2023 Chronic Conduction disorders (10 sources) Chronotropic incompetence; Translations: [Other specified conduction disorders] Chronic Congestive heart failure; nonhypertensive (20 sources) Congestive heart failure stage C; Translations: [Congestive heart failure, unspecified] Onset: 3 07-19-2023 Chronic Coronary atherosclerosis and other heart disease (20 sources) Coronary arteriosclerosis; Translations: [Coronary atherosclerosis of unspecified type of vessel, hoonah or graft] Onset: 3 Chronic Coronary atherosclerosis [...] of anticoagulants] Episodic Other aftercare (1 source) correction (current) use of anticoagulants; Translations: [FDC CURRNT USE ANTICOAGULANTS] Onset: 3 Episodic Other connective tissue disease (10 sources) Muscle pain; Translations: [Myalgia and myositis, unspecified] Episodic Other infections; including parasitic (14 sources) Personal history of other infectious and parasitic diseases; Translations: [Personal history of COVID-19] Episodic Other nutritional; endocrine; and metabolic disorders (4 sources) Morbid obesity; Translations: [Morbid obesity] Chronic Other nutritional; endocrine; and metabolic disorders (20 sources) Body mass index 40+ - severely obese; Translations: [Morbid obesity] Onset: 4 12-15-2023 Chronic Other nutritional; endocrine; and metabolic disorders [...] cardiomyopathies] Onset: 3 Chronic Residual codes; unclassified (15 sources) Sleep apnea; Translations: [Obstructive sleep apnea (adult)(pediatric)] Onset: 4 06-21-2020 Chronic Residual codes; unclassified (19 sources) Obstructive sleep apnea syndrome; Translations: [Obstructive sleep apnea (adult)(pediatric)] Chronic Residual codes; unclassified (1 source) Obstructive sleep apnea (adult) (pediatric) Chronic Residual codes; unclassified (2 sources) Sleep apnea, unspecified; Translations: [Sleep apnea, unspecified] Onset: 4 Chronic Residual codes; unclassified (9 sources) Non-smoker; [...] Date Documented Da te Episodic/Chronic Other aftercare (18 sources) Treatment changed; Translations: [Long-term (current) use of other medications] Onset: 07-19-2023 07-19-2023 Episodic Other aftercare (3 sources) Other usp (current) drug therapy; Translations: [OTH FDC CURRENT DRUG THERAPY] Onset: 10-28-2022 Episodic Other aftercare (8 sources) Taking high risk medication; Translations: [Other termite technician (current) drug therapy] Onset: 07-19-2023 07-19-2023 Episodic Other lower respiratory disease (20 sources) [...] 12-31-2021 Episodic Residual codes; unclassified (2 sources) Edema; Translations: [Edema, unspecified] 10-04-2023 Episodic Residual codes; unclassified (7 sources) Edema of lower leg ; Translations: [Localized edema] Onset: 10-04-2023 10-04-2023 Episodic Residual codes; unclassified (2 sources) Edema, unspecified; Translations: [Edema, unspecified] Onset: 10-04-2023 Episodic Residual codes; unclassified (2 sources) Localized edema; Translations: [Localized edema] Onset: 10-04-2023 Episodic Residual codes; unclassified (1 source) Never smoked tobacco; Translations: [Other specified health status] Onset: 01-17-2024 01-17-2024 Episodic Unclassified (16 sources) Never smoked tobacco; Translations: [Never smoker] Unclassified (16 sources) Patient status finding; Translations: [Patient new to provider] Unclassified (5 sources) Onset: 07-19-2023 Resolved: 10-04-2023 07-19-2023 Viral infection (12 sources) Disease caused by 2019-nCoV; Translations: [Other specified viral infection] Onset: 05-05-2023 05-05-2023 Episodic Results Test Name Value Interpretation Reference Range Facility ECG 12 [place] 01-17-2024 Normal sinus rhythm at 71 with supraventricular premature beats. Since record of November 2023 supraventricular premature beats are now present. Low voltage complexes. QTc 456 ms IN interval normal [facility] Work Phone: [facility]TTE) [facility] TRANSTHORACIC ECHO (TTE) COMPLETE [address], [address] [place] [address] TRANSTHORACIC ECHOCARDIOGRAM REPORT Patient Name: LORENA Arboleda Physician: [id number] Albaro Roman MD Study Date: 11/10/2023 Ordering Provider: [id number] MARGRET STEVENS MRN/PID: [id number] Fellow: Nurse: Tigre De La Rosa RN Date of /Age: 5 1955 / 68 years Manager Cardiac: Gina [place] RDCS, RVT Gender: M Additional Staff: Height: 177.80 cm Admit Date: Weight: 166.92 kg Admission Status: BSA / BMI: 2.70 m2 / 52.80 kg/m2 Department Location: [facility] Study Type: TRANSTHORACIC ECHO (TTE) COMPLETE Diagnosis/ICD: Shortness of breath-R06.02; Chronic systolic (congestive) heart failure (CHF)-I50.22; Ischemic cardiomyopathy-I25.5 Indication: Atrial Fibrillation, CAD, PTCA-04/2020, Diabetes, Edema, HTN, Hyperlipidemia, Morbid Obesity, GAYLE CPT Codes: Echo Complete w Full Doppler-[id number] Study Detail: The following Echo studies were [...] 0.5 m/s (0.6-0.9m/s) PV Max P.2 mmHg [id number] Albaro Roman MD Electronically signed on 11/11/2023 at 6:04:53 PM Final Normal [facility] ECG 12 [place] 10-04-2023 [facility] Work Phone: [facility] Work Phone: ECG 12 [place] 08-16-2023 [facility] Work Phone: Office Visit (Cardiology)on 02-15-2023 Follow-up [...] IO EKG Electrocardiogram- 12 Lead; Status:Complete; Done: [id number] Morbid obesity with BMI of 50.0-59.9, adult Healthy Weight Tips; Status:Complete - Retrospective Authorization; Done: [id number] Some eating tips that can help you lose weight.; Status:Complete - Retrospective Authorization; Done: [id number] SocHx: Never smoker Tobacco Use Screening; Status:Complete; Done: [id number] Patient Instructions Please bring all medicines, vitamins, [...] options. He and his have joined weight Personal Style [employer]. An EKG was done today, reviewed,No recent [...] per 2D echocardiogram dated June 07, 2020, [place] Heart [employer] class II, stage B heart failure. 10. Gouty arthritis. Patient remains on allopurinol, no recent recurrence. 11. Abnormal perfusion imaging showing an LV ejection fraction in the 20s, with subsequent cardiac catheterization showing LV ejection fraction of 45%, this was done at [facility] and that particular Catheterization did not [...] This is consistent with chronotropic blunting. 13. [id number] score is 6 14.48-hour Holter monitor-minimum heart rate 46 bpm average heart rate 66 bpm maximum heart rate 99 bpm ventricular patience (more content not included)... Normal [facility] Tobacco Screening.on 023 Fall risk assessment b) One or more fall s in the last year [facility] [facility] 250 DO Work Phone: Tobacco use status CP b) No [facility] 250 DO Work Phone: Cardiovasc Arrhythmia Result son 11-30-2022 Cardiovasc Arrhythmia Results Reason For Visit Reason for Visit: Holter Monitor: LORENA is here for the application of a 48 hour Holter monitor. Ordering Physician: Dr. Margret Stevens MD Diagnosis: a-fib NO equipment agreement signed. LORENA understands monitor is to be returned on: 12/02/2022 Monitor number [id number] applied. Holter monitor returned and downloaded. Holter monitor returned and downloaded. 12/03/2022 Holter monitor printed and emailed to [facility] and placed on Dr. Margret [...] Assessed Atrial fibrillation (427.31) (I48.91) Future Appointments Date/TimeProviderSformerly [facility] 02/15/2023 12:30 PMMargret Stevens, [id number] [facility] [address] 250 DO Signatures Electronically signed by : Margret Stevens MD; Feb 15 2023 2:58PM EST (Author) Normal Infrascale Office Visit (Cardiology)on 11-23-2022 Follow-up visit Diagnoses/Problems [...] Metabolic Panel; Status:Active - Retrospective Authorization; Requested for:[id number]; Morbid obesity with BMI of 50.0-59.9, adult [...] EKG shows sinus rhythm at 82 bpm IN interval 158 ms QRS duration 102 ms [...] per 2D echocardiogram dated June 07, 2020, [place] Heart [employer] class II, stage B heart failure. 10. Gouty arthritis. Patient remains on allopurinol, no recent recurrence. 11. Abnormal perfusion imaging showing an LV ejection fraction in the 20s, with subsequent cardiac catheterization showing LV ejection fraction of 45%, this was done at [facility] and that particular Catheterization did not [...] This is consistent with chronotropic blunting. 13. [id number] score is 6 Laboratory data from September 2022 s (more content not included)... Normal [facility] Tobacco Screening.on 023 Adult depression screening assessment No [facility] [facility] 250 DO Work Phone: Fall risk assessment a) No falls within the last year [facility] 250 DO Work Phone: Tobacco use status [facility] b) No [facility] y 250 DO Work Phone: BNPon 10-27-2022 Natriuretic peptide B (Bld) [Mass/Vol] 80.0 pg/mL Normal <=900.0 [facility] Comment on above: Performed By: #### B RES COUNSELOR, CK, TSH #### [facility] [address] [place] [address] Dr. Maria T Canela CPKon 10-27-2022 CK [Catalytic activity/Vol] 302 U/L Normal 39-308 [facility] Comment on above: Performed By: #### B RES COUNSELOR, CK, TSH #### [facility] [address] [place] [address] [address] Maria T Canela FREE T4on 10-27-2022 Free T4 [Mass/Vol] 0.87 ng/dL Normal 0.76-1.46 [facility] Comment on above: Performed By: #### F T4 ####[facility] [id number] [place], [place] [address]JzDr. Maria T Canela GLYCOHEMOGLOBIN A1Con 2022 ADA RECOMMENDATION SEE BELOW Normal [facility] Comment on above: Result Comment: ADA RECOMMENDED LIMIT 4.0 - 6.0 ADA THERAPEUTIC TARGET < 7.0 ACTION SUGGESTED > 7.0 Performed By: #### A 1C #### [facility] [address] [place] [address] Dr. Maria T Canela Glucose [Mass/Vol] 169 mg/dL Normal [facility] Comment on above: Performed By: #### A 1C #### [facility] [address] [place], [place] [address] Dr. Maria T Canela HbA1c (Bld) [Mass fraction] 7.5 % Critically high 4.5-6.2 [facility] Comment on above: Performed By: #### A 1C #### [facility] [address] [place], [place] [address] Dr. Maria T Canela [facility] SED RATE 15 mm/hr Normal <=20 [facility] Comment on above: Performed By: #### S EDR ####[facility] [address] [place], [place] [address]CiDr. Maria T Canela TSHon 10-27-2022 TSH 1.477 uIU/mL Normal 0.358-3.740 [facility] Comment on above: Performed By: #### B RES COUNSELOR, CK, TSH #### [facility] [address] [place], [place] [address] Dr. Maria T Canela Office Visit (Cardiology)on [...] per 2D echocardiogram dated June 07, 2020, [place] Heart [employer] class II, stage B heart failure. 10. Gouty arthritis. Patient remains on allopurinol, no recent recurrence. 11. Abnormal perfusion imaging showing an LV ejection fraction in the 20s, with subsequent cardiac catheterization showing LV ejection fraction of 45%, this was done at [facility] and that particular Catheterization did not show any flow-limiting disease. The perfusion study was done in December 2021, cardiac catheterization from January 2022 showed nonobstructive coronary artery disease of the left system widely patent RCA stent LVEF 45% moderately dilated left ventricular chamber dimension mildly elevated L (more content not included)... Normal [facility] Tobacco Screening.on 023 Tobacco use status [facility] b) No [facility] 250 DO Work Phone: Heart [...] in office. He had echocardiogram performed at [facility], which was normal. He was [...] protocol. [1] patient was then referred to [facility] and was placed on sotalol followed by [...] progressive dry (more content not included)... Normal [facility] Comment on above: Result Comment: Elec tronically Signed By: Camilo STARK, Kushal Galarza Other Comment: Appar ent pt no show Cardiac Stress Teston 2022 Cardiac Stress Test [address], [address], [place] [address] Exercise Stress Test Patient Name: LORENA CAMPOS Ordering Physician: [id number] Margret Stevens Study Date: 09/10/2022 Reading Physician: [id number] Kim Mckeon MD, [facility] MRN/PID: [id number] Supervising Physician: [id number] Kim Mckeon MD, [facility] Accession/Order#: [id number] Referring Physician: MARGRET STEVENS Date of : 1955 PCP: Beena Benítez Gender: M Fellow: Height: 177.80 cm Nurse: Tigre De La Rosa RN Weight: 168.74 kg Manager Cardiac: ROB BSA: 2.72 m2 Technologist: BMI: 53.38 kg/m2 Additional Staff: Age: 66 years cc report to: Patient Location: cc report to: [id number] Margret Stevens Study Type: Cardiac Stress Test Diagnosis/ICD: R94.31-Abnormal electrocardiogram [ECG] [EKG]; I25.10-Atherosclerotic heart disease; I42.9-Cardiomyopathy, unspecified; I50.9-Heart failure, unspecified; R06.02-Shortness of breath Indication: Cardiomyopathy Procedure/CPT: Stress Test Interpretation-[id number]; Stress Test Supervision-[id number] Falls Risk: Low: Patient has low risk [...] The adequate level of stress was achieved. [id number] Kim Mckeon MD, [facility] Electronically signed on 09/10/2022 at 6:25:43 PM Final Normal [facility] Cardiac Stress Test [facility] y 250 DO Work Phone: Office Visit [...] History of Present Illness Patient with atherosclerotic [place] vessel coronary artery disease, multiple cardiac risk [...] per 2D echocardiogram dated June 07, 2020, [place] Heart [employer] class II, stage B heart failure. 10. Gouty arthritis. Patient remains on allopurinol, no recent recurrence. 11. Abnormal perfusion imaging showing an LV ejection fraction in the 20s, with subsequent cardiac catheterization showing LV ejection fraction of 45%, this was done at [facility] and that particular Catheterization did not show any flow-limiting disease. The perfusion study was done in December 2021, cardiac catheterization from January 2022 showed nonobstructive coronary a (more content not included)... Normal Infrascale Tobacco Screening.on 023 Fall risk assessment c) Not medically indicated [facility] [facility] 250 DO Work Phone: Tobacco use status [facility] b) No [facility] Work Phone: BNPon 07-20-2022 Natriuretic peptide B (Bld) [Mass/Vol] 72.0 pg/mL Normal <=900.0 [facility] Comment on above: Performed By: #### B MP, BNP ####[facility] [id number] [place] [id number] Canela PROF CHEM 8 (BAS METB)on Anion gap [Moles/Vol] 11.8 mmol/L Normal [facility] Comment on above: Performed By: #### B MP, BNP ####[facility] [address] [place], [place] [address]EbKami Canela Calcium [Mass/Vol] 9.2 mg/dL Normal 8.5-10.1 [facility] Comment on above: Performed By: #### B MP, BNP ####[facility] [address] [place] [address]Dr. Maria T Canela Chloride [Moles/Vol] 101 mmol/L Normal 98-107 [facility] Comment on above: Performed By: #### B MP, BNP ####[facility] [address] [place] [address]Dr. Maria T Canela CO2 [Moles/Vol] 28.1 mmol/L Normal 21.0-32.0 [facility] Comment on above: Performed By: #### B MP, BNP ####[facility] [address] [place], [place] [address]Dr. Maria T Canela Creatinine [Mass/Vol] 0.82 mg/dL Normal 0.70-1.30 [facility] Comment on above: Performed By: #### B MP, BNP ####[facility] [address] [place], [place] [address]Dr. Maria T Canela EGFR-AF COMORAN >60 Normal >=60 [facility] Comment on above: Performed By: #### B MP, BNP ####[facility] [address] [place], [place] [address]Dr. Maria T Canela EGFR-NON AF COMORAN >60 Normal >=60 [facility] Comment on above: Performed By: #### B MP, BNP ####[facility] [address] [place], [place] [address]Dr. Maria T Canela Glucose [Mass/Vol] 190 mg/dL Critically high 74-106 [facility] Comment on above: Performed By: #### B MP, BNP ####[facility] [address] [place], [place] [address]Dr. Maria T Canela Potassium [Moles/Vol] 4.9 mmol/L Normal 3.5-5.1 [facility] Comment on above: Performed By: #### B MP, BNP ####[facility] [address] [place], [place] [address]Dr. Maria T Canela Sodium [Moles/Vol] 136 mmol/L Normal 136-145 [facility] Comment on above: Performed By: #### B MP, BNP ####[facility] [address] [place], [place] [address]Kf. Maria T Canela Urea nitrogen [Mass/Vol] 13.0 mg/dL Normal 7.0-18.0 [facility] Comment on above: Performed By: #### B MP, BNP ####[facility] [address] [place], [place] [address]Ex. Maria T Canela Urea nitrogen/Creatinine [Mass ratio] 15.9 mg/mg Normal [facility] Comment on above: Performed By: #### B MP, BNP ####[facility] [address] [place], [place] [address]Xo. Maria T Canela Office Visit (Cardiology)on 07-06-2022 [...] IO EKG Electrocardiogram- 12 Lead; Status:Complete; Done: [id number] Cardiomyopathy, CHF (NYHA class II, ACC/AHA stage [...] is accompanied by his who works at [employer] in the cafeteria. Prior records [...] function test, and Lexiscan stress test at [facility]. He states he has absolutely no energy and is easily fatigued, he is short of breath and he has a nonproductive cough. He denies fever or chills. He is accompanied by his who questions whether he may change his cardiology follow-up to [facility] due to proximity to home. Patient wishes to establish care at [facility]. Predominant complaints are unrelenting fatigue, short-term [...] abnormal wit (more content not included)... Normal [facility] Tobacco Screening.on 023 Adult depression screening assessment No [facility] y 250 DO Work Phone: Fall risk assessment a) No falls within the last year [facility] y 250 DO Work Phone: Tobacco use status CPHS b) No [facility] y 250 DO Work Phone: CBC AUTO DIFFon 06-15-2022 BASO # 0.1 103/ul Normal 0.0-0.1 [facility] Comment on above: Performed By: #### C BC #### [facility] [address] [place] [address] Dr. Maria T Canela Basophils/100 WBC (Bld) 0.7 % Normal 0.2-2.0 [facility] Comment on above: Performed By: #### C BC #### [facility] [address] [place] [address] Dr. Maria T Canela EO # 0.2 103/ul Normal 0.0-0.7 [facility] Comment on above: Performed By: #### C BC #### [facility] [address] [place] [address] Dr. Maria T Canela Eosinophils/100 WBC (Bld) 2.7 % Normal 0.9-7.0 [facility] Comment on above: Performed By: #### C BC #### [facility] [address] [place] [address] Dr. Maria T Canela Erythrocyte distribution width (RBC) [Ratio] 12.7 % Normal 11.0-15.0 [facility] Comment on above: Performed By: #### C BC #### [facility] [address] [place] [address] Dr. Maria T Canela Hematocrit (Bld) [Volume fraction] 39.7 % Critically low 42.0-54.0 [facility] Comment on above: Performed By: #### C BC #### [facility] [address] [place] [address] Dr. Maria T Canela Hemoglobin (Bld) [Mass/Vol] 13.4 g/dL Critically low 14.0-18.0 [facility] Comment on above: Performed By: #### C BC #### [facility] [address] [place] [address] Dr. Maria T Canela IG # 0.01 10e3/ul Normal 0.00-0.03 [facility] Comment on above: Performed By: #### C BC #### [facility] [address] [place] [address] Dr. Maria T Canela IG % 0.1 % Normal 0.0-0.5 [facility] Comment on above: Performed By: #### C BC #### [facility] [address] [place] [address] Dr. Maria T Canela LYMPH # 1.7 103/ul Normal 1.2-3.8 [facility] Comment on above: Performed By: #### C BC #### [facility] [address] [place] [address] Dr. Maria T Canela Lymphocytes/100 WBC (Bld) 25.0 % Normal 20.5-60.0 [facility] Comment on above: Performed By: #### C BC #### [facility] [address] [place] [address] Dr. Maria T Canela MANUAL DIFF REQ NO Normal [facility] Comment on above: Performed By: #### C BC #### [facility] [address] [place] [address] Dr. Maria T Canela MCH (RBC) [Entitic mass] 30.0 pg Normal 25.9-34.0 [facility] Comment on above: Performed By: #### C BC #### [facility] [address] [place] [address] Dr. Maria T Canela MCHC (RBC) [Mass/Vol] 33.8 g/dL Normal 29.9-35.2 [facility] Comment on above: Performed By: #### C BC #### [facility] [address] [place] [address] Dr. Maria T Canela MCV (RBC) [Entitic vol] 89.0 fL Normal 80.0-94.0 [facility] Comment on above: Performed By: #### C BC #### [facility] [address] [place] [address] Dr. Maria T Canela MONO # 0.6 103/ul Normal 0.3-0.8 [facility] Comment on above: Performed By: #### C BC #### [facility] [address] [place] [address] Dr. Maira T Canela Monocytes/100 WBC (Bld) 9.6 % Normal 1.7-12.0 [facility] Comment on above: Performed By: #### C BC #### [facility] [address] [place] [address] [address] Maria T Canela NEUT # 4.1 103/ul Normal 1.4-6.5 [facility] Comment on above: Performed By: #### C BC #### [facility] [address] [place] [address] [address] Maria T Canela Neutrophils/100 WBC (Bld) 61.9 % Normal 43.0-75.0 [facility] Comment on above: Performed By: #### C BC #### [facility] [address] [place] [address] [address] Maria T Canela Platelet mean volume (Bld) [Entitic vol] 10.6 fL Normal 9.5-13.5 [facility] Comment on above: Performed By: #### C BC #### [facility] [address] [place] [address] [address] Maria T Canela PLT 163 103/ul Normal 150-450 [facility] Comment on above: Performed By: #### C BC #### [facility] [address] [place] [address] [address] Maria T Canela RBC 4.46 106/ul Critically low 4.70-6.10 [facility] Comment on above: Performed By: #### C BC #### [facility] [address] [place] [address] [address] Maria T Canlea WBC 6.7 103/ul Normal 4.0-11.0 [facility] Comment on above: Performed By: #### C BC #### [facility] [address] [place] [address] [address] Maria T Canela GLYCOHEMOGLOBIN A1Con 2022 ADA RECOMMENDATION SEE BELOW Normal [facility] Comment on above: Result Comment: ADA RECOMMENDED LIMIT 4.0 - 6.0 ADA THERAPEUTIC TARGET < 7.0 ACTION SUGGESTED > 7.0 Performed By: #### A 1C #### [facility] [address] [place] [address] [address] Maria T Canela Glucose [Mass/Vol] 223 mg/dL Normal [facility] [place] [facility] Comment on above: Performed By: #### A 1C #### [facility] [address] [place] [address] [address] Maria T Canela HbA1c (Bld) [Mass fraction] 9.4 % Critically high 4.5-6.2 [facility] Comment on above: Performed By: #### A 1C #### [facility] [address] [place] [address] Dr. Maria T Canela MICROALBUMIN, RAND URon 05-31 mALB <1.3 Normal <=30.0 [facility] Comment on above: Performed By: #### M ALBR #### [facility] [address] [place] [address] Dr. Maria T Canela PROF 14(COMP METB)on 023 Albumin [Mass/Vol] 3.9 g/dL Normal 3.4-5.0 [facility] Comment on above: Performed By: #### C MP #### [facility] [address] [place] [address] Dr. Maria T Canela Albumin/Globulin [Mass ratio] 1.2 {ratio} Normal [facility] Comment on above: Performed By: #### C MP #### [facility] [address] [place] [address] Dr. Maria T Canela ALP [Catalytic activity/Vol] 81 U/L Normal 46-116 [facility] Comment on above: Performed By: #### C MP #### [facility] [address] [place] [address] Dr. Maria T Canela ALT [Catalytic activity/Vol] 65 U/L Critically high 16-63 [facility] Comment on above: Performed By: #### C MP #### [facility] [address] [place] [address] [address] Maria T Canela Anion gap [Moles/Vol] 12.2 mmol/L Normal [facility] Comment on above: Performed By: #### C MP #### [facility] [address] [place] [address] Dr. Maria T Canela AST [Catalytic activity/Vol] 47 U/L Critically high 15-37 [facility] Comment on above: Performed By: #### C MP #### [facility] [address] [place] [address] [address] Maria T Canela Bilirubin [Mass/Vol] 0.5 mg/dL Normal 0.2-1.0 [facility] Comment on above: Performed By: #### C MP #### [facility] [address] [place] [address] [address] Maria T Canela Calcium [Mass/Vol] 9.1 mg/dL Normal 8.5-10.1 [facility] Comment on above: Performed By: #### C MP #### [facility] [address] [place] [address] [address] Maria T Canela Chloride [Moles/Vol] 98 mmol/L Normal 98-107 [facility] Comment on above: Performed By: #### C MP #### [facility] [address] [place] [address] [address] Maria T Canela CO2 [Moles/Vol] 27.3 mmol/L Normal 21.0-32.0 [facility] Comment on above: Performed By: #### C MP #### [facility] [address] [place] [address] [address] Maria T Canela Creatinine [Mass/Vol] 0.80 mg/dL Normal 0.70-1.30 [facility] Comment on above: Performed By: #### C MP #### [facility] [address] [place] [address] [address] Maria T Canela EGFR-AF COMORAN >60 Normal >=60 [facility] Comment on above: Performed By: #### C MP #### [facility] [address] [place] [address] [address] Maria T Canela EGFR-NON AF COMORAN >60 Normal >=60 [facility] Comment on above: Performed By: #### C MP #### [facility] [address] [place] [address] [address] Maria T Canela Globulin (S) [Mass/Vol] 3.3 g/dL Normal [facility] Comment on above: Performed By: #### C MP #### [facility] [address] [place] [address] [address] Maria T Canela Glucose [Mass/Vol] 291 mg/dL Critically high 74-[address] [facility] Comment on above: Performed By: #### C MP #### [facility] [address] [place] [id number] Maria T Canela Potassium [Moles/Vol] 4.5 mmol/L Normal 3.5-5.1 [facility] Comment on above: Performed By: #### C MP #### [facility] [address] [place] [address] [address] Maria T Canela Protein [Mass/Vol] 7.2 g/dL Normal 6.4-8.2 [facility] Comment on above: Performed By: #### C MP #### [facility] [address] [place] [address] [address] Maria T Canela Sodium [Moles/Vol] 133 mmol/L Critically low 136-145 [facility] Comment on above: Performed By: #### C MP #### [facility] [address] [place] [address] [address] Maria T Canela Urea nitrogen [Mass/Vol] 14.0 mg/dL Normal 7.0-18.0 [facility] Comment on above: Performed By: #### C MP #### [facility] [address] [place] [address] [address] Maria T Canela Urea nitrogen/Creatinine [Mass ratio] 17.5 mg/mg Normal [facility] Comment on above: Performed By: #### C MP #### [facility] [address] [place] [address] [address] Maria T Canela Coding Summary.on 03-18-2022 Coding Summary. CD:[id number] Gh 0bWw+PGhlYWQ+WK2UVNCeA 42awHPgvU6ZT6sDRY9WGCM LRCQSWX4LWD9ojUR8ZMcfB 2VybiAv EvuoeELbON65QCz9NJP0uW xcONjigG2seXSjX1h6TiPx WJ47cO14QIwsJRTnClY5Wy ZpbjsgbWFy I5agIlSiiJXiStp+PHRhYm xlIHdpZHRoPScxMDAlJyBz xBkqVY3rJt5bNFLqWXWggA xhcHNlOiBj j6gpCNObQCraKT5fuVfhB1 UfeKO1BPKwv9q6Ub34sMM+ DMXcLHK9vZraLMqlb599Yf Fic3pcFRH3 fFSyPYcxGAP7B28jw1B7LJ YuRUWzBTJ4rWE1fT2kfGxu zuvkU4OmrRHsMmP0EBG4uB SucJ4riDmu oofhcP0fVef+K89NRZ1TYF OCSM4CCyy6V9YuEhztaXY+ JG05CXXxHG58aSWavWUdo6 bekBr7PhVo ZFFnIAR5tAvaRIwyu6VcZD LpN35mxEIoc2Y6HWCarOty lTYuLvPtiOI9eA0lHBfcue vpl2lndhzz Tsaox7hqqn77pD46A87nGQ uhATHpAGQ2YFKtUDDmjBdg dg4ieR0xLv4+USkkd4yzb6 qlgEh6TdAm ZQPutiOyjLysCRA2i2QvTf 71C9WrtRgpr6GcPoy0ix87 sKFav2Q2tDN6SLnaKZYdsA 6pEHvxUpI2 XFJoMdVfrE40yBRoJSozUn 5erWdltOwpRN4gPBVrjpqi LUGstI6qLBEoyCRdaYqwBY 4wNTBpbjtm q588OiGcZRQ6LGVelFNkP7 AbiL3nLvBhZDMpZQVaL2Hv wKAdJNnxQ971UKhcRkN3XQ KszpVlJ0Tx OUJwhXzcNhR6y1U3Rd1Ol8 OphxndDGZ9LEgqMSRyRgF5 ZnGcHrG3N0SgUuw0ABPdbW ijVT9aY6Gd IOJduqzmmggncJE7COTcIK CriQ15iHBxMJwxDh3ry6L2 i903VTIoJPUakU01Go0fvZ ogMTBwdCBU bF4khpyfn2nyyjzhXqBoWX QcFZn9PZr2CAGtbWmpDbFh UCD3QoB0MCW6eLSfrO3ifK ynjcbirM3n Oyc+H14xkH1xOIF2SMF9el prEUQscaJuOP01EC78F2Um PjwvdGFibGU+PGRpdiBzdH zbIP0qMwHb o4rjj5JlYBvbO8InTGTwJG soHct1EXScLMO0nSN4mM5h PIMyWHlqs4W2nTV3B9Lfmf Hyam0le8ow UQFqHQirN77uuWNlu3Q3CQ WpdMK8OSDgcIqoQoQoeI75 Oyc+HTSlpAspx8ImSsptp2 fsj2ssdTw6 FtJhQXAjogHklBzyBDN5t3 NvMb48W96yVDbkTKKdAXJn HCAsEQJcmHujxe3cwV8uCp 8+PGNvbCB3 vMI6dW9qOIPuSzO5QYemD2 76VoVtiOMpXtizs4ayw6oc hCq5BuUgMBXkjyCovIseWR K1q1WwPo65 Z52yHQdrQNAsGAZjQZXzTQ HqdWeycd2opD8xZn3+PC9j i5mjlv45wD29dJK+PHRkIH Y8vUwxGPyd OFPedB4mFZbuZuP8QOYqHa NqyG60xVBvGTpkXn1ufHac wEwxTY7dVIByjbzfz815Tt Zlg4hfOBGb fMLvAPxcXSE7V78df9Z7LZ KtASBxIOQ3gUP7lA4xiKob bjogbGVmdDsgdmVydGljYW ucFYfgO796 IHRvcDsnPlBhdGllbnQgTm ObMMr5B3TvJel7CSAvoZxp PF6mtXOrBBrhRx1shAdcaJ bjHB7fRYNt ukkep438PvVxu0gjQFJcjH RyWTdlPQH1E19gu7I9BTSi WJPtIRJ3hQT0rZ4giRpdxr ogbGVmdDsg xuAgxAwvIRezZXrsJ196YW RvcDsnPkJpcnRoIERhdGU6 TG37PS05aQQar6G3zAK7T8 BhZGRpbmct daeoxYV5JUOkPGVfrL64Yr 3lpFpdLm6kBXMwMWN7LRKk aMFmL2QsgI3kXbMoZFEoLF QmC7AorFPp NNkmP868GGkrGnR5GWLczj XhI1StETBcnAkjLjV8z8W9 Ld2FS4O0TP31NB88vHRef0 I7uUF9P1Wb WNNbjhqpvasbiVO2MEQmXD MueE88Zz6mnZbeCg9tLVCi TQK1QXLudSMfV3RkgU6tXa AjMDAwMDAw P4QfeIJoJCvsC221QPtnZq K6WKQxlyBvZ1CvORCvlKwg IpM2q7M7Mj1WNTw6FI00JN 11zIRhw1G2 bJT5G4VbHCBkjqtsjzloiB E5JBKeAREqbM33Hz9ykCvo Gq2qNTEnRGG4ONVlcLBhA7 IagO2fDgHb PFLxVXFsZ0PyvWUuTDklG3 58PJbiDoF0UTPkpwTpO5Rq ZRSzeRklRhL8w3P4Yc0HXM RqVI99ORF0 wPU1OR53VM31B7TcThecoY FibGU+PHRhYmxlIHdpZHRo BQzdOEBaJsUweYjnQI7jFh 9yZGVyLWNv nPahsHAvOwPth5vgJARzTH eiVM9upAysG9FpjUZ8OHZg s6z3Zj62L02sY1KnkBA+PG OavCA9lXY4 aA0xUxZwYhB4NPcpC332Uo AkiJNeLifvu7lmt0ozkVx2 JnZ0DCKquzIfeFphXCC4f8 CyAu00R98h IHdpZHRoPSIxNSUiIHZhbG tcrf3irE8fKf1+PGNvbCB3 fFQ6vX4kDtMnHcG4IUimA8 49InRvcCIv Ekhuq2mln7vksIe7WvIeXH SdwgJsfOcdDNS3t3CqGg86 V6WvfWeox2ThBcd5vy00cM Xrk9B1eIC5 K4MbTLXezflevSUdzFtnKS 2wBQQzollrTEHniX7xPYRr U1l4PmTtJeI3BKzgL1Muao S0MHKxiAGa MJacJEK0S16ks8U0IECyNQ LvMSX4kNH9rQ2riUbfvsot bGVmdDsgdmVydGljYWwtYW teK601UHSq iZtoIFKroM1wGWGhuGQphE oqRX5tXMUlwdwhXvLPZeLU ThulEGGFZWRSDwAGYT57SQ 77sNRyb1P5 gCD8T3FvESGopobhjuxkpU Q2UQTkUYPlyN70eIMkVLpy Ab1pq4R6v216RRPwRVDppT 28Vf4srXbj ASWphAPNrW4faldaa3wdmr lnRpOoQNTzEMp6EPl0NGUt eKgoSmGiVEK9OsJ4YUJ1lB JltT8gxJce uuvaoE3oJtg+MDUvMTEvMT s2VJoinIS+MUCiRGR9fSfd ERauFIFgpZ9pTLNjR8a0Ua IdDfI8LLub X0RiGAEsxnmlMr83tL7jEu RqUjY2TLosQ0KttoR3UMOq xLTcBOrqUSV9S90os6V1FJ MwMDAwMDA7 fWQ4bH6lcMgkcahqzYLhrN rzgyVamYwtMQcaNMwfJ828 MUUvqKvhTiZ1AGucCEWaXL 82CJ62vXWv n8U4vCT6I8QxEWKaswrlin wcoEM5AOBfAADecZ78gGNx ZQjnNn7nf7M1g690TTCdFI CgaZ00Nc6b vTyfUDKlyKBFyY6adlnze0 vgsnekUzMwHSJgNHw1MVv7 KBFisBmwFbTiNPM1UbA8UG U7sOKzvK8f aLeqydnsmI8yGoy+TWFsZT wvdGQ+TBAoSGD9xDtwPPgr HLOexA1tTXIaD8g5LxNzPk A6NZvvF2Pm EORktwefFi34xJ5fXyEqBf F9NOpqJ3ReqfF9BBOvhFUg HDjzTYG7S32pl6E3XIQxRI BtDXC9vDK2 fN5waSudwhaeiSCdqXjenu DyvGwgWJiwYGktG155MXRn lXqlYn45xTYogValocE8Y6 RkPjwvdHI+ IL94TADmZA50lXQcwMOcn3 tuzTm1BvIgAVFiIGP9oOmu APqrw5NbAWHcA39glRJog8 O1ADHmjIwu bLVpTrDsfRK8qZ8sGNjiqz pqi1ebzoemDgxqs1vlrm06 pX33N25uRHvyXHGtTNYjKN UiIHZhbGln jd9dnC5yEw4+YKTzaYN0zU H1zO3gJkCnVtB2DExkV298 BqCjcZHmIuchy7xeg6npwJ p9YaMfPLSv ajLddOeyKXV3x2BfVl63Q4 9sIHdpZHRoPSIyMCUiIHZh gJxswd2ogL9lAo1+PC9jb2 qulh32bK29 dHI+KGKtZAL5eQatRWdsHI KayG9oCIeyOlL7YFQbToOd wV26mHQjWYfuRu1qcYsilK iyKH6kTQLb lmnxm232PeKcx7uiTSUaqI EoKBobVRX6M00xi1D2IIRa SKDwQHZ9iZK2qB5pgPokcz ogbGVmdDsg shSoqFhwKKqaZLnnH008EN JdgAweLhPhpPQiL3jjuvGQ AG1nNmpnfBE+JFUjVYH0hJ xlPSdwYWRk eZ8sDCEpF2g4QrOqEwS0MR jwP8AnlfN5UQChfZBwUJFh pVTBfC4nomvzs5tefzgvVj AwMDAwMDt0 CVg5QLNuuPdiAyGfDBR1Lf R3IPW5dVMilY0vvCcrbjdx vD3fNla+RklOOjwvdGQ+PH DoGYZ5wOzd FYzpNTNlgL0eXIGyH3g4Gz YcPcC9GTzaY4ErizY9GWLq dENwNBXowNVXjY1bvrhsj3 xvcjogIzAw AKVgFQe8PHu0JNXnoSakHy JdTYP2BdM8KQF3nTTuvB1f dFvwyxsqyY5nGfk+TVJOOj wvdGQ+PHRk MGJ7kXsfBXxaNJXclQ9xEI EoY0x8VdUvAzZ7HEjuU8Nh khP4KCGwiSFuJNObhVRHpH 3lovrib4eb wmkpQuCcXTGoQCf9LXf6BH ScvEjyKuUoSRG2UjR4OMU9 oEOyvH5ygFxsjhgxaI2lQk c+IWW1XPI8 QU40MO77V8YyRonboKHkfN U+PHRhYmxlIHdpZHRoPScx QCRqZqAvwMdsFD6lLn2vQC VyLWNvbGxh cHNl (more content not included)... Normal [facility] Consent for Treatmenton 10-1 0-2022 Consent for Treatment [id number]#[id number] 0CD:127 Normal [facility] and Vascular Office/Cl in Noteon 03-09-2022 Heart and Vascular Office/Clinic [...] in office. He had echocardiogram performed at [facility], which was normal. He was [...] protocol. [1] patient was then referred to [facility] and was placed on sotalol followed by [...] progressive dry (more content not included)... Normal [facility] Comment on above: Result Comment: Elec tronically Signed By: Caimlo STARK, Kushal Lenz\Date and Time Signed: 03/09/22 11:29 EDT Progress Note-Physicianon Progress Note-Physician [id number]#1.0 0CD:127 Normal [facility] Coding Summary.on 02-10-2022 Coding Summary. [id number] Gh 0bWw+PGhlYWQ+TV8AZNAlV 56gbKPnaP8XX8jNSJ0RIBN OWCBJFB0HZQ8lfIV0AZloL 2VybiAv BndeeBDuPA57LTk0WQH0kL qlDNfmmU3nqFBxK9a5MvUa MR71qG53CKwfTPVfKdE1Dx ZpbjsgbWFy O7alYyQsoBViIsb+PHRhYm xlIHdpZHRoPScxMDAlJyBz oPvmPR7kBk3pDBUaGMYdlL xhcHNlOiBj r6pbKVFqJCfjQM2pxOgyR3 DxqWW5ESUxm7e9Mi68yER+ SJYlEMN7yGikZSijc016Vi Xto2osAZU4 pEFaXOhkQXP6B22ub9G2SQ VrHEErMTG4fLO8uA4pvRkq gtvtK8BeeWXtRrR2FNQ7lR PkoC2ziLqh znssqK2gVgf+X73HGC5GHW AOHZ5LZws7Y8EdBoxicQZ+ TZ18RVUoBL07sFXnzETvp7 hozEq3KpEi MADvRBA7fAtsWAjka8BmFD OjA40mtXCwf7B2NAKelTru fEBzNeJdjDY2iM2wQItnsu cpc5oddpba Mxxjy7hcuf27lO13U20vMW geQPEkMDS9QCGcAFJrwQmp ba9jpE1eMl7+TZfco7qeb5 vmnFp7JrLl UEPdehKyqQfeDOR1r2QrAf 51G8NkcDqxd8PaWhs8rf75 wCOlf6S8jGO4MGszXRCkwZ 1oWXrgYlE0 BNNlRwVhqS63xQSgAOzuWh 1saOnqqFwvER5sEWYcdnps MVYlqE1vGXBctLXnyDlbME 4wNTBpbjtm m048EyHmYYM4FJAzxGPmJ1 LivW3rLzYaOXOuNEMuI2Xk eVOqRHoiS971XKrtAjZ9TS FcrjMuF5Kd MSGclNemTsK6n2R7Us5Yw4 UwnpcfJCE3VPuwCUZ1JhRs OxQvLbQ8T5LbShp2VMSyfO pnHE0aP1Dq CRVxsenqygpgfFR6FZSqZM FjsN50tRPbIPpuBm0af9S6 q867JUXyHKAdrT50Qp4myT ogMTBwdCBU rP1kzherj1jeihjiAlCmJY DyVHn5XWz3WVHtpVsaVwMi KBR6IdN4RUB6rHBcwP3kqV ybudckgY0h Oyc+U89fhD7tCMF9UIV0ku fqVDIaxaQaII02UP93R5Ck PjwvdGFibGU+PGRpdiBzdH gvXB2sFqNj b6bqw8HlBVjfW6XeESEbLD ivPcr5RSIiMLU6vKG9tX0b AAEiZIsds6K8nVM3N5Ndde Dubg7nv9ae DBTlHMsqE52chIQyh8B9IC NvnVH8GAIwdNnyTpLmrO12 Oyc+XKRckOvor9CdHxwhc7 dol4bogHo6 ZyTcGHMpirWscQdjNRJ5l5 XfSt00V06sZSicFMGsGWFc VZJoHQDjdJllqr1qqH0aMp 8+PGNvbCB3 yDW2gJ2tSKJjVfR9WQipG3 63HsKapFZgZqlbr9vxq9hr bPw7QlOrUONpuaSvdYkmSF Z8t2StWt67 T18aJLhsGNGyXFAwVZEwAX OleBodlx8mkP6gIe0+PC9j m4ovco25kU54bMX+PHRkIH V6wZrqZUdc TVPmsN3bAUwhCzN2KWTfMc TxjX68qHVoTPjfYm7eoJoh hXgkTC6nFXFsvfqzq603Ma Brn2eiHRIg gHVaMWcwWMI0C16xq7Y1RR XfNWTyUUV3nIN0hJ5lmMfp bjogbGVmdDsgdmVydGljYW acHUwpJ521 IHRvcDsnPlBhdGllbnQgTm VmFBd1O7AnXse2GDYfnFqb GG4zsWHsIXysZm6egBayaO dvWE0zULWo twcsx566GvOri1fnQVJuhW HiBYwqFAO4E74zc3R9CAGq EDLwDEH4eQW4uC9kuUiqjh ogbGVmdDsg ffFapHucDWmvIOfaK566VW RvcDsnPkJpcnRoIERhdGU6 IG43DT89jFKir2Z7zTP0Y0 BhZGRpbmct wneqdYM2VVBiARDceS85Hq 0rfZpqHs0wSKYtVPN3ZYTj aXPwS3QraV7tNlYbLGZgSB XrZ0OoaKOq EGfaF519GMziWfP9XCNtwz GjQ3QdSUOwdHhpKwT1i4W7 Rl3UG4D4IH88ML92lCAri2 F7gWJ7Y0Ua ZHUbskmphujxrFS1DUGxEX BizC69An4chAkcOs7gSUDr UOV0TEHqkPAoL8MflC0fIr AjMDAwMDAw N2TsuSJbFMljN443AImbWp B3ZIFcaiYkU0UyBKClmRtw KsR7t2H9Ux3CINo2QP87GC 70uHUjc8T5 hSJ8E4LiAXCtadmgbjgjkF H8GSDkJFNuoG11Pr3ltXdk Kr3gIBUrYVX3MDVriFPlY6 PthP3iWzTj CPWkORDdK1BgaPZrNAihJ9 96KPwjSwJ8IFUhoqFsB6Zi SZTnlJycKlF4h4W3Ew3SLU XqTX35GNK0 iFM1QP79LR15G8ZiTolfhI FibGU+PHRhYmxlIHdpZHRo ZIezSJOrJnCuvCboLP3aFa 9yZGVyLWNv bBdaoDIjCqJde2alBUDgFH udEA6cyEfrA2GuiSM0UAIv s1v3Wb09J02jK8FjlMA+PG YxwSN5yXQ8 oI5xOkMlPqT9KBgjA088Ny SunLJsMrkcc5kkw2nkuPs6 OfT5TDCnizZflKlwYIL8c8 EaGm98F12f IHdpZHRoPSIxNSUiIHZhbG tsaz9mtL6uVa9+PGNvbCB3 eXD9cH7dEpUtSyN7GEzxC0 49InRvcCIv Dusuf5fhh1rkvSe7KeQhXH QrllVbaAewCXG3a4CoBv97 O1EnaDfdi2DmGhl9rv65pR Dfz1V2lEX8 V1NrTVSuisjhdGRiiAbeET 1kZRAqirukMOPseH9qFGRg H9w8QcRiRqV3QBydP4Pnep S2KKPhpWJg DHgkQUW7B77qe6C6XGOkRQ UhAOU7mDV8fO3iuBikinoa bGVmdDsgdmVydGljYWwtYW fnY511DAEy wDubNKBgkP9mSXIvbCCfaE xhTR9qUGJhzelmGzYKZeVA SlpvLGMISBYPNmNEMS16VB 11yZBij4B3 vZW8A5SjMEIxmhbznmvvwI M5JJKwPILyuM39mMNtUHib Ec8yg1B8m440JJEtUQNpoX 35Zh4pqPbg WDFqcNFUaO0vmjpbg2oihg jnKfSyOADxHQm8UPt2EFSr cKupNaDtPOQ7HmE7VAF9sL DkfF9ujXih ytdfgT0sFxq+MDUvMTEvMT u2GIgwyFZ+MARfMAM1mOrg YZacLAAqjN6mWVHgZ1g2Bb DkJyC4GXsg H1BrAYPqewbeNj65dW9wZy TbQyS2TXcjB0RxkzA9CCWj oMRxHGitNTM0L78sq2Y7NF MwMDAwMDA7 pCK8xJ7pvDrhvunodTOfvB lrfqCxdHuuUXvpIQweN033 TLKdkTwfNfU3UYpbDIQlWC 33SO18lVRf r1Q8vEH5Y0VfVAQjgavohj cykLP2ATIzGHEjgD33jXAw YWixWd3ui9A4l255KFSwIJ HjoV50Bc1n oTrdVEJlrOAKcO6vfpqmh7 uophpwVnLuTRUxUFa0BZm2 JGNljGzzUaDbQFV3KeU7HY E9eYFtcC0r aJzfkazwuZ4wQyl+TWFsZT wvdGQ+YTOxIIF4pEiyPAxd EMJifN6wVSXwH7t8HyHnAi A4OXzlB0Cc GYGmjtsdQm21wL6yJnBgXb V8RMhhA9KhudZ2LMDueZAs LFudLPH8B60mz7D4EGCzKO PgKXB7iPB2 xH6huCdlizoinOZjwRowcl QfbLxpZSuhTVubM124QTKx cDsnPkFtYnVsYXRvcnkvU2 FtZSBEYXkg J3XvY4ThsCnriRX+PC90cj 16Y8SkRohkKtq6XKKaMIA4 zIS1bA4wUOTxBUxko8C0pD D6Y1TvveKg my1ii0bmHSUsGQavO35kvV Uoz0V7MXCwzQZ4RXSseOgh YtWkcM15Beu+PGNvbGdyb3 VgZlbre2en s1sahIo5CvDnANAmldCuqB veREJ7p5QcTp83S34sRZmo ZHRoPSIzMCUiIHZhbGlnbj 9zhZ8aLh2+ KEDbtAH8aWW2tJ4jCcBmZi H8RTelY069LqMlnLYxJktt t1iqt1fdzVh7OwAaQPZwbj FsaWduPSJ0 p5MrAz90Y3PneCclf5FtZj w9na94fDFvu8Q5fJK3C7Vl XRBiarkyrUCwsOmvZX2vWN BpbjtwYWRk iS3vKDGvY2v9UiPlEtL2SH jaC2ZqawD3KNRaaYEiDRWw uXWFpE3alfmkk6gtnjslDe AwMDAwMDt0 RDq7IZJewXuyAhIaPJK0Bv P2MVA2jCDylB4xjYlgoqbo qL8aOgf+PTl5k4qxxZEyQX 7npGN8CU82 WE91pFEnh0H8rMC6C4AaZX QcxqpsduptlUQ0CVTdMCHs nD22Ma3thNvsRg8nLTBsYU G2MOTawQTq P3EszM5lHsHuMVKzTXOrD1 WdqUCpBSgiG741GIdlAlI2 ZNWwliQeN2PkJJIzaAcoRi G9m1A1Ah2I UT34UD92FF59jYWaa8I5yK J1S2EiPRIuzuossjrmlNI4 GGWuZJIdyN71Ng7agJhuTs 3wLJVdMCY8 ZKYafXCzL0JkbU0nQlRlWR OsBQCxC7MkyDIwZMizS291 EPiyQtE4LNIkhjIxI4UzKT FsaWduOiB0 p9Z9Le2NAt06RO47QI15iN Zls9R5zBH3G7DfXTMwlkuq eoqlcWL1SFWfTXKzbV09Ek 7lpShzFv4o YLDhLEQ9HOJwpHLtP2XzyX 2bVjEeKAFsQWJaS3CmjTXi OKrkT919UAzaEcV3WBFagm DxE7QvCHCn jDwkShJ0h4K2Qp1LWPqzfd e4E7FnBxkwvZE+WF63VTYe OC32uYAskDPbr7ipzHo0Pm EwMCUnIHN0 eWxl (more content not included)... Normal [facility] Consent for Procedure/Surger yon 02-09-2022 Consent for Procedure/Surgery [id number]#1 .00CD:127 Normal [facility] Cardiovascular Reporton Cardiovascular Report [id number]#1. 00CD:127 Normal [facility] Consent for Treatmenton Consent for Treatment [id number]#1.0 0CD:127 Normal [facility] Inpatient Clinical Summaryon 02-05-2022 Inpatient Clinical Summary [address] [address] Clinical Summary Person Information: Name: LORENA CAMPOS Age: 66 Years : 1955 Sex: Male PCP: BEENA BENÍTEZ MD Marital Status: Phone: [phone] Race: White Ethnicity: Non- or Language: Frisian Visit Id: Visit Reason: R94.39 R07.9, I25.10 Speciality: Acuity: Enc Type: Ambulatory/Same Day Surgery Med Service: Surgery Arrival: 02/05/2022 06:31:58 Discharge: Dispo Type: Address: [address] [place] [address] [phone] Provider Notes: Diagnosis: Problems Active Hypertension Acid [...] up: With: Address: When: [place] [address] [phone] Business () 03/09/2022 11:15 AM Type Location Start [facility] Cardiology Follow Up (FT) FT.Cardiology Clinic 03/09/2022 11:15 AM 03/09/2022 11:30 AM Confirmed Patient Education Information: CV - Cardiovascular Discharge Instructions (CUSTOM) Normal [facility] Inpatient Patient Summaryon 02-05-2022 Inpatient Patient Summary [address] [address] Patient Discharge Instructions PERSON INFORMATION Name: LORENA [...] up: With: Address: When: Kushal Page [address] [place], [place] [id number] [phone] Business (1) 03/09/2022 11:15 AM In the event that this physician does not participate in your insurance network, please consult with your insurance company to find a nearby participating provider. Type Location [facility] Cardiology Follow Up (FT) FT.Cardiology Clinic [...] 2 ti (more content not included)... Normal [facility] Operative Reporton 2 Operative Report [...] an exchange length J-wire. Next a 4 Palauan sheath was placed without complications and flushed with Heparinized Saline. Next a 4 Palauan JL5 catheter was easily engaged into the [...] exchanged over a wire for a 4 Palauan 3DRC catheter. This was easily engaged into [...] exchanged over a wire for a 4 Palauan angled pigtail catheter. This is easily engaged [...] . Kushal Page M.D. kendra Dictated: 02/05/2022 [id number] Transcribed: 02/05/2022 [facility] Comment on above: Result Comment: Elec tronically Signed By: Camilo STARK, Kushal Galarza\.br\Date and Time Signed: 02/05/22 13:41 EDT Patient Education - Texton 0 02-05-2022 Patient Education - Text [place], [place] CARDIOVASCULAR DISCHARGE INSTRUCTIONS Diet: ? Resume [...] you are interested in smoking cessation, contact [facility] at [phone], ext. [phone]. ? In the event you are unable to reach your physician, please call [facility] at [phone] and the pad making machine operator will assist you. Seek Immediate Medical Care for: ? Bleeding: Apply continuous pressure to the site and Call 911. ? Should the arm or leg become cold, numb, blue or white call your physician immediately. ? Signs of infection are redness, warmth, swelling, increased tenderness, colored drainage, fever or chills ? Chest pain ? Normal [facility] Coding Summary.on 02-03-2022 Coding Summary. [id number] Gh 0bWw+PGhlYWQ+QR1TOHXmV 62yfKPvjM2JW9zTZZ0NNQS XKLBKAV2EVA8ivJS6SGgjI 2VybiAv OxwomKByAM40RUm7DJK8gW yaZGqlcQ2yjVVuM7g6TdFa LT61fD80JZgiEZNsGfN7Gm ZpbjsgbWFy I0atOgWalFUnKid+PHRhYm xlIHdpZHRoPScxMDAlJyBz sZnjRF2aXf3iKRCuPPEspH xhcHNlOiBj n1emAVRiWZcxYR7vgAvdE3 KggOI2VJRhh4z3Eq20bVV+ YGGkAGY2wGqmYMfiw570Zv Tcv2buNZU0 fEOwOTtlFAP0H78lu0Y1ER ZwTDNbVVD4eUG6nX5mfJja oajvL1ClwDScCtM6EXP7eU DxjH4lvTpn fwtttZ0zSjz+S91OSZ1DVL KLZT8KMlp5M0GxLbwpiJB+ SB06NJYpBV56rICqkWTuf0 ctdWh4KtBs XHLzBSQ1gZcoYLmva7KaHT QmX85drNRlx6F2KRWzlHqp eYLfWzZbkIB4mO4aPRgiqt hzh8yehzln Akbim5uxzt71uV71A62kBC wrVBKiRAS6OHJzVKYzsAgq yf5wyV7pGi9+BSebm1ilu5 uydNb5OwRs STPcnfAdaUklVUI5w5HfMr 13E1RknMmgv3ItUtj1sy07 qGNiz6V1mCY3WWwmJMGgiS 6jZYfeOcH0 AVHcCsZtdY61bBZnEVjxJa 4dfKuswNdlBS7kWIYufdsg VVFclD5dXBUrnGCluJziIE 4wNTBpbjtm j926EdTcIKC9NQOvhJCxK7 YljZ2ePvTpLTFyXFIrC7Hs nTHqHBuwQ103CQnuQeK0SU DojyWeE9Gt SMIjfCyrObO7k6V4Ys0Mc7 TyesppZHS8CHxkPHU8MwI4 UpVhTiU3S9RnQvu8AWXcjM maGU3rC7Ad CGBxvfzamvzpwSG8BYLhYP HrlL04tJCrPIphVy0ww3H5 v350VJCfISWgkT57Po4axI ogMTBwdCBU tL8eouevw8lcxhefLhBkTM IiINo8RKw2JUIgzKuzOjNx BFL9VoS1XTT5oUPhjH8rpR yogkixsD9g Oyc+B69slD8xZJV4DHK1zt pgLLQoebNqWN78QN64G2Eg PjwvdGFibGU+PGRpdiBzdH fiHQ4eKdLi a8lqe2EfKSihN8LrTLDyCE hvRdl2APYjLKA9nYB4aS9g XHUgLHyuc7X3iGV2B4Nqbz Rcaj7up4vh QOCyXVukD30axODce9M7ZE EgaIQ4NTGljCuvEiCcsI38 Oyc+LXXccDeym9BeCndyn1 yvr5bonNd2 LgLaYALrszEpuDyrCBX3w0 AdQf96A18fUHauEQEiGLRn GFFdVOLwyGxbqe0vkP0xOh 8+PGNvbCB3 yXT5iU0pRCJyWtO0YPhxH7 74EdOqtAZjAvxya7rqo1wb vZx6WcAdOTNdjwFjpRufUV S9o7SqYm29 O18bUVjvFGKlQTGaNIOdLF PeePpkpe8uxV4pJc6+PC9j d4uvrg69eF98eBM+PHRkIH Z1sCutEEci YNJdsK0qPKctDqY3BKUaTq DqjN31nETuVWvcCu0naQkh rRelWY2uQXSvokqwk705Ve Eom6lcZDOn tOSnXDfhZSS9J35ww2F7XA QuDVEcUEA2oNB0kQ0dbFat bjogbGVmdDsgdmVydGljYW puJCwkX402 IHRvcDsnPlBhdGllbnQgTm QiSQz8X4UgIti4OPHyuNud PF3mlXFmEMdsEc5gpTnhwR eqLR4tTDTc hwuki916NiMlv4nkJZKnlT QuUWkqODH3E70kz9B1YIYy OUAaYUL5hHO2wQ1gpOfghz ogbGVmdDsg dfNokNhwPAthTHslL810OP RvcDsnPkJpcnRoIERhdGU6 RY81HS07zNShn3K6sMO3V1 BhZGRpbmct dbjcgOF9ZDZyDIVqxJ89Px 9bbBzmUu3tATKkYVV9NLVp kNDoC6DfxR4nIaTuPNNbTV YbR2JjyZVv HSqpL433LCajRwE7MIWpcq GpO4UlHILtfYazMdE6f9A1 Ck5UN7L4MO30WS95sTVei9 U6eBJ7Z3Vf GOIxsozmjviykLA7FVSrRE FgvD62Lf9wkKtoLe1pLYLe QBZ0GNJbdEAzE8OzgV7tRw AjMDAwMDAw G5WywAXwXKbzO762MSchJb M3MAAfepDqA3KaBKGkoJgz VkI0i1F0Wc8ZJQs8SF53UR 44zNSol0D5 mKH5I4OmYDPkvgpulbzlcE Z6DZDtIVWkbR20Qe2vqEch Hx4wQBBkJTF1HKVlwYGpN2 WisF3pKhEx JQPiZXNrO5RswCTtHEmyW8 12PQcoNcX9WDOziyTuG8Ey YMGfoEooJaE9n0F6Jt6WUH SgWK55MZZ0 wGU1YF21DI35L1EdAzavdP FibGU+PHRhYmxlIHdpZHRo GIoeITPsRlNsgFmtMH8hNy 9yZGVyLWNv aCfogVBmWzPwd5ueGGNoGH ulNN5lhEnaA4YezEZ6KFZv q0z6Af32R56sV7BmrQI+PG QmdBS2vDJ4 nO4iJiIwMbG9WJqkC087Al LreEUiMdver8ulm0vzqKd7 EvK1DARigbBraHqgVRF2j8 McLn22U41a IHdpZHRoPSIxNSUiIHZhbG wzvt2gqB6sEs9+PGNvbCB3 xOL3wD9oIpXfZsQ3HWszO7 49InRvcCIv Wxovg5gre4gkyJd2AeHqCY XqltPiiQpvATI8n1HxEy05 O0WlpKyeq5TmEkg8cr99iC Gao2M8sBM0 X1OgOJIozcfobBItuTceWW 7yUWOfncvoZCNsnO9vDTJr L0r1FyRrFlU1WXjlX3Uoyd E2NFWidZZz QVzfYWL7D81rb7Q4SPJmED NnVTV6zOR3sX2mjIyfqqrm bGVmdDsgdmVydGljYWwtYW jyH552JACl gRtbCCCfrP4xZSVxpQHzdF kaFA6oUERndgszZvNLJhOQ YokwAAFLJYYUIpTOSJ16RZ 30tIDfc2X1 qVS7O5MgDIRfkyxfshejkZ I6QROcMBCoiV50fZHeVQce Zj5ir3Z4m767FAEkLKDkjD 41Jb1wcIfx AUXwbHMMgT1igqlxp0pdyl joNoUoGOVkJJb4GWj7VTIl zSgpRoPwVFA6TzM0EEK8bL XtrB4cpWun kmjthX9nOdp+MDUvMTEvMT a5DBypcMF+AFBnFGR7pXbr SJvsFBPckD9dZQRrV8h6Kf EhHsO2NKag Q9PkURSzpnczYi87iY6mXd KvHlP0NFwiO9SphaK1GXRb wIHpQYknMKY8Q68aa6R9NL MwMDAwMDA7 yKC7rU8eqXdbohsipIZoxG vodcKxaGrhEGrfBAycP418 AMNyhPvqYiY9TZefIJUuOQ 19DA01hFOi q0D9gWP1Z7HxHJYqmwvonh plsZL7YKYdZEGriW64dQGi ZLdzVj5tr8H5a205MFOtWD JavA90Gh8g lNwrRRGieWOUzK1rmkgmc0 pcderiVtXaFQHuLRs6MWw7 THGbcRfgXdXaSJY7EzM5CP P7lGXpoN7z wTwwbtnbfP9bVsq+TWFsZT wvdGQ+ZHUbPFN6xRpdANpt ZIAjfG0eJFUjO4f3SlHyHb H0JPxtQ9Nu XAUntiopBy60aL3nUjRrYx I1CWkuW1UkjiZ9YMGsuQBw SUblYKS3C07gd7F2MTDlNY CnMBQ2dWA4 uP5jsXjpzebfrEEyoOqipp YvxTuhZLubILrpA493BAXc gXinHp69oSXtfJsavxF0G3 RkPjwvdHI+ ML25DENgYY31fSTyvWJet4 rclPa6WqXdNFAoXIG9jFfy OEoas3NhKIRdF08jcEZpt1 A5FQLymIfo kUSzTeEmkFD0vF2jCNeptt hnf1cqcbxzBsyxt9qwrj72 mQ85P62sRNxxUFNvPQYbFY UiIHZhbGln yc1efE1wYy7+YFCepEN5uG Y3tF8nOyAlFzF2WSvaP284 IaWmaYDuEgkll5hiq3kncD e9EvRfGSMb ilDywFvzLVK7g1NhNj98Y0 9sIHdpZHRoPSIyMCUiIHZh gAsktw7uqD2wEa4+PC9jb2 lcpo24pN60 dHI+CIBxIVT5hJygIKinAU LcsC4rAJljBoQ8GSBvGkJz lK45vBErXHhpJi8ybJmbuT czWP1uSSNd owgtx940LeEjk3ffOAKbuJ ExFLayHGG4F89vx8P8WVJz FGViRQW0pRX0sQ3saWepbq ogbGVmdDsg suZeqAfjMVquDEwzK094MQ DkyHbbTyCkrQBrD5ywmwAD LO3zYajvvOC+YYIkPOH8pS xlPSdwYWRk iX0fYWQlA7q7IuBrBcO4BV meA1JluhK2HNXpiPUpGDUw uAQEeW7ssxmki5gbiibaCx AwMDAwMDt0 IXr8TUXrcLbdPaOcIFW9Ov D0OIH5bMYqbA4mlCvclgtq gV9qXwk+RklOOjwvdGQ+PH HnCCJ0wPkv SUajTBKvyM0oWMJuJ9w9Mk NuTfP8STtiT2VvujV9SOQo cDVbHRNzwGEHlF5slolbo9 xvcjogIzAw ONAwORd9VIl4ROWqaTqhIj CkATQ9ExW3HYL7cYMzgR9y kBvqpsorpO4pMxu+TVJOOj wvdGQ+PHRk QLJ9dTlrFGmtDGMgkX0bUB RtS5d2CaRkIkO2OFapN8Vq njM1JIYtiXOhGBSwvACCvW 9pmbrnd9cd chgdGoMnFQWdNJt7CNq3MM DmyBvfBeYqCTK4FdU8AAW0 yUMghI9fxMasvwobaY5fCz c+UYK1YLS0 JU77YH79Z5XdOypesAZnjZ U+PHRhYmxlIHdpZHRoPScx DYPlHbYelFoqCD1jZm1aCC VyLWNvbGxh cHNl (more content not included)... Normal [facility] Outside Recordson 01-29-2022 Outside Records [id number]#1. 00CD:127 Normal [facility] Auto Diffon 01-28-2022 Basophils/100 WBC (Bld) 1.0 % Normal 0.0-2.0 [facility] Comment on above: Order Comment: Order Added by Discern Expert. Performed By: #### 2 492182, 7273036, 1805299, [id number] ####[facility] [address] [place] [address] Basophils/Leukocytes Auto (Bld) [Pure # fraction] 0.0 E9/L Normal 0.0-0.2 [facility] Comment on above: Order Comment: Order Added by Discern Expert. Performed By: #### 2 944243, 2356872, 7379903, [id number] ####[facility] [address] [place] [address] Eosinophils/100 WBC (Bld) 3.9 % Normal 0.0-8.0 [facility] Comment on above: Order Comment: Order Added by Discern Expert. Performed By: #### 2 982122, 5651593, 0255026, 93535359 ####[address] [place] [address] Eosinophils/Leukocyte s Auto (Bld) [Pure # fraction] 0.2 E9/L Normal 0.0-0.5 [facility] Comment on above: Order Comment: Order Added by Discern Expert. Performed By: #### 2 338083, 7992364, 5888602, 64858989 ####[address] [address] Lymphocytes/100 WBC (Bld) 27.4 % Normal 14.0-50.0 [facility] Comment on above: Order Comment: Order Added by Discern Expert. Performed By: #### 2 781038, 0807633, 9799005, 00619845 ####[address] [address] Lymphocytes/Leukocyte s Auto (Bld) [Pure # fraction] 1.3 E9/L Normal 1.0-4.0 [facility] Comment on above: Order Comment: Order Added by Discern Expert. Performed By: #### 2 057465, 1962269, 9332184, 70166128 ####[address] [place] [address] Monocytes/100 WBC (Bld) 8.1 % Normal 4.0-14.0 [facility] Comment on above: Order Comment: Order Added by Discern Expert. Performed By: #### 2 707677, 2144408, 4999618, [id number] ####[address] [address] Monocytes/Leukocytes Auto (Bld) [Pure # fraction] 0.4 E9/L Normal 0.2-1.0 [facility] Comment on above: Order Comment: Order Added by Discern Expert. Performed By: #### 2 321692, 9661613, 3523385, 05966895 ####[facility] [address] [place] [address] Neutrophils/100 WBC (Bld) 59.6 % Normal 36.0-75.0 [facility] Comment on above: Order Comment: Order Added by Discern Expert. Performed By: #### 2 794949, 7526724, 1172525, 88197334 ####[facility] [address] [place] [address] Neutrophils/Leukocyte s Auto (Bld) [Pure # fraction] 2.9 E9/L Normal 2.0-7.5 [facility] Comment on above: Order Comment: Order Added by Discern Expert. Performed By: #### 2 367420, 9762967, 9910452, 93089154 ####[facility] [address] [place] [address] BMPon 01-28-2022 Anion gap [Moles/Vol] 15 mmol/L Normal 6-16 [facility] Comment on above: Performed By: #### 2 024129, 1153694, 7517154, 32443776 ####[facility] [address] [place] [address] Calcium [Mass/Vol] 9.2 mg/dL Normal 8.9-11.1 [facility] Comment on above: Performed By: #### 2 214745, 5773498, 0041725, 96753964 ####[facility] [address] [place] [address] Chloride [Moles/Vol] 100 mmol/L Low 101-111 [facility] Comment on above: Performed By: #### 2 514912, 1968190, 6448786, 61445493 ####[facility] [address] [place] [address] CO2 [Moles/Vol] 24 mmol/L Normal 21-31 [facility] Comment on above: Performed By: #### 2 660361, 1006083, 6957273, 98247886 ####[facility] [address] [place] [address] Creatinine [Mass/Vol] 0.8 mg/dL Normal 0.5-1.3 [facility] Comment on above: Performed By: #### 2 501955, 2956584, 2560704, 95066990 ####[facility] [address] [place] [address] Glucose [Mass/Vol] 260 mg/dL High 55-199 [facility] Comment on above: Result Comment: If t his glucose result represents a fasting glucose, interpretation should refer to the following reference range: 55-99 mg/dL Performed By: #### 2 417266, 5998712, 4669278, 53099347 ####[facility] [address] [place] [address] Potassium [Moles/Vol] 4.4 mmol/L Normal 3.5-5.3 [facility] Comment on above: Performed By: #### 2 848660, 6319105, 0615144, 55982033 ####[facility] [address] [place] [address] Sodium [Moles/Vol] 135 mmol/L Normal 135-145 [facility] Comment on above: Performed By: #### 2 882613, 6302863, 3628457, 42666412 ####[facility] [address] [place] [address] Urea nitrogen [Mass/Vol] 13 mg/dL Normal 5-21 [facility] Comment on above: Performed By: #### 2 335843, 5496614, 8923948, 40599802 ####[facility] [address] [place] [address] Urea nitrogen/Creatinine [Mass ratio] 16 No Units Normal 10-20 [facility] Comment on above: Performed By: #### 2 323921, 4973536, 5001542, 89786564 ####[address] [place] [address] CBC w/ Auto Diffon Erythrocyte distribution width (RBC) [Ratio] 13.9 % Normal 10.9-14.2 [facility] Comment on above: Performed By: #### 2 340070, 7829252, 6343173, 42468013 ####[address] [address] Hematocrit (Bld) [Volume fraction] 39.6 % Normal 37.7-49.0 [facility] Comment on above: Performed By: #### 2 217789, 9804621, 8999080, 99098520 ####[address] Hemoglobin (Bld) [Mass/Vol] 13.5 g/dL Normal 13.5-17.5 [facility] Comment on above: Performed By: #### 2 647019, 6507545, 5804486, 83519253 ####[address] [address] MCH (RBC) [Entitic mass] 30.7 pg Normal 27.0-34.0 [facility] Comment on above: Performed By: #### 2 398312, 3283037, 2866542, 24602681 ####[address] [address] MCHC (RBC) [Mass/Vol] 34.2 g/dL Normal 31.4-36.0 [facility] Comment on above: Performed By: #### 2 729660, 5211959, 7533134, 76355150 ####[address] [address] MCV (RBC) [Entitic vol] 89.7 fL Normal 80.0-100.0 [facility] Comment on above: Performed By: #### 2 029233, 6954676, 4202582, 25878461 ####[address] [address] Platelet mean volume (Bld) [Entitic vol] 8.9 fL Normal 6.4-10.8 [facility] Comment on above: Performed By: #### 2 821070, 5282034, 2881477, 98718231 ####[facility] [address] [place] [address] Platelets (Bld) [#/Vol] 153.0 E9/L Normal 150.0-500.0 [facility] Comment on above: Performed By: #### 2 434091, 0954267, 8029817, 85665005 ####[facility] [address] [place] [address] RBC (Bld) [#/Vol] 4.4 E12/L Normal 4.3-5.9 [facility] Comment on above: Performed By: #### 2 607030, 3197631, 3129441, 37565044 ####[facility] [address] [place] [address] WBC corrected for nucl RBC Auto (Bld) [#/Vol] 4.9 E9/L Normal 4.0-11.0 [facility] Comment on above: Performed By: #### 2 637751, 8013387, 6510084, 09878592 ####[facility] [address] [place] [address] CHEMISTRYOrdered By: SYSTEM SYSTEM on 01-28-2022 Anion gap [Moles/Vol] 15 mmol/L Normal 6 - 16 mEq/L [facility] Calcium [Mass/Vol] 9.2 mg/dL Normal 8.9 - 11. 1 mg/dL [facility] Chloride [Moles/Vol] 100 mmol/L Low 101 - 1 11 mmol/L [facility] CO2 [Moles/Vol] 24 mmol/L Normal 21 - 31 mmol/L [facility] Creatinine [Mass/Vol] 0.8 mg/dL Normal 0.5 - 1.3 mg/dL [facility] GFR/1.73 sq M.predicted among blacks MDRD (S/P/Bld) [Vol rate/Area] mL/min/1.73 m2 Normal >=59mL/min/1. 73 m2 [facility] Chem S GFR/1.73 sq M.predicted among non-blacks MDRD (S/P/Bld) [Vol rate/Area] mL/min/1.73 m2 Normal >=59mL/min/1. 73 m2 [facility] Chem S Glucose [Mass/Vol] 260 mg/dL High 55 - 199 mg/dL [facility] Remisol Potassium [Moles/Vol] 4.4 mmol/L Normal 3.5 - 5.3 mmol/L [facility] Remisol Sodium [Moles/Vol] 135 mmol/L Normal 135 - 145 mmol/L [facility] Remisol Urea nitrogen [Mass/Vol] 13 mg/dL Normal 5 - 21 mg/dL [facility] Remisol Urea nitrogen/Creatinine [Mass ratio] 16 mg/mg Normal 10 - 20 [facility] Remisol Coding Summary.on 01-28-2022 Coding Summary. [id number] Gh 0bWw+PGhlYWQ+MW8BYZNbR 79ecGEdqU0KA1oGQN6VVWA ZQEDHUJ8EHE2foVY1SHtbJ 2VybiAv HelttHTlZK89KCn2XIO1oN nwXTmgfL5mbAYsN6s0OsOh TC81uM22UDjgDVBgXpR7Jp ZpbjsgbWFy K5ktDoPodSRhRcx+PHRhYm xlIHdpZHRoPScxMDAlJyBz gXszDB8iTm7yLMFsVZYbgG xhcHNlOiBj q8roDAYaXFguVA9ndQvlX9 SmrRF0SWTty8a9Tu11tHK+ RVGjTAI4tBkjHYmry650Xb Alm9roOFF5 cAYrMBbyQYB4S10rn1L1CJ VuVTKyAAI6nUQ1sN3keGja svqvN5WmlIWcNjA4SYZ4hM IvmL9hfUha rhjgoC1yPfk+N16HTJ5OLD DUHR5KGmh1P3VdKxswgDZ+ NG18EQLaHI98qCYdoYFzq8 hzvFj4FgQo WRShBLP0bSncIKzzn6ZoRB HdX04ssBXsk5T2BHMvgJdg mJDiZoKvaQF8dS8nFAzerm hkk9eesdaw Ffcbf5uyfq04nN91Z13eZJ teYWZeINW3PDMoEKZmlDga cv9pcZ2cEu1+FErwk6afn9 oesUc8OrHe ZKKoaxCfqEddBXN7t0TnQg 25U8ZuvFwao2XaLlv1gj23 hUUoj3E3hIR2EGtiCLAopP 8iIPuuEpH0 RRDtSiCbkT50wTZbAKdgNl 5llOcheMgqZI6pZGImhptd IJHwvC6bIILwjMWngSzrXN 4wNTBpbjtm b780UqEpTKM3CJFksFJrZ6 ObdF3jNfUfKYRrJXMnN4Yt kTJkWHwrK967HFlxQmG9BQ PherSeN0En LNPbgQesShU2p1O4Fl9Lk6 GcncyhNKP3FOlsLYZ8JzZi NcNvJkT5F8ZuJjs1HEZwcT kqDS1gD9Jp RRIwvtperkaraNI3XCXgGJ LquO91cEAuSTqhEa7ab0H5 h711COPsIARuyE78Ws0oaX ogMTBwdCBU hO8eaerkg9vbwtveHzFfIK DwVIk9KOf2FKJugGilZvDh SDH3VkX6WKY6kNTzoE7ieP tqphbmjC7t Oyc+N97nsJ4nAHA0UST1sv hyFWVdfaEaIJ27QJ53K6Ti PjwvdGFibGU+PGRpdiBzdH dgCT0iXfCt z7aut6RqDFwwJ2PgTMVfUH gbJrq2KKGoYEX6cDW1vM3m XOEcKUnce2G6iYM1P6Nibr Rmul2vx5ri IBKjLPhfC71eqDNjf8Q9MC ZvaWW4ZROfaRosIqZmkM36 Oyc+NEZyiIuau9XtNmakg3 mjc3hlfHm7 GeWqRWYkhaRqySnoHOI9q4 IsSj26X96xSVliUJXeREZm DINoWMHrcAisrd0djS2bGw 8+PGNvbCB3 gCN3tM0pKBZfSqM2BWgyB9 70QoZzwRQeFclfs7wpa9ed nSo4LqLhWMWixmBzsDktAE S4e5DpUw74 R78dWEbmJQXkUCTyOHQbXC PajOuzrk0woR1rWt3+PC9j d5usjp87rX35gJI+PHRkIH O3eRzuEAod CHFahY8cUWejGuH7AJHcGw KlsH04dPTdNRwcQs1xxJtc kUaoHV3qBOCkozygq123Aa Pow4hdGBVl iFBpZMhdIUX9Y42nm2M7PF WfJOUyJOZ0hUX4rQ1jhYgi bjogbGVmdDsgdmVydGljYW dvUCqpO792 IHRvcDsnPlBhdGllbnQgTm GzRCd6K7VuQsw6XCJvxLye WL0peBTwMRxbYn6oyZejrF foHB1vTCXn wjlbq636OiPdx8tdZCFjhM RvUPbzGNR0B28fi1Q0STBe VBMsRZR2fWB6vK9mwEbufe ogbGVmdDsg quYyaCmhBGxtCTpiY609MW RvcDsnPkJpcnRoIERhdGU6 QN92UP28kKQlg6C8tHQ2H7 BhZGRpbmct sqgbxAB1HGIiUPOiiG78Qa 2evDlhYf1hLPLvWGO3QFPd tQTuQ3FvaM2xOxNaLUQdSU GuK2RinHMq THczQ878HRyyEuG1IEGlwz ZdF6DrNWQksKhmQoX0q3A5 Fr9CI9S5WM33VP75oGFvw5 G8hQM4H4Pw GNSelhoqttdncWD4HBLvRP GmuP48Yn7neXlgZj2cTNPm GLP6EPDnxVYsG9OnuE5pFj AjMDAwMDAw R3CrxVJzIPafF254VRepDu G8NRKhzxJzV4EhUFDrmUmu RdW3v5L9Up0NUDj0CL26NZ 06gPVxr3Y6 dNN3X7DzGLKrxsakuzrquD N5XPTdKVZrpX60Zt1djOlq Pi8jAWDqXIG1IZJxsTNbW7 RlmR7fMfLi OQCtSPLlC9FiuOMhFHbrG1 60ADhnEmL6HDDoehArI7Tm DMZjmVpiBwB6m1I3Aj8XPJ KpES55MXN2 sDJ0UW81NQ44G4TlPignqY FibGU+PHRhYmxlIHdpZHRo KJeeMUCtStJooLjmYV4zEf 9yZGVyLWNv bAaghFYqQvCow1unSMGgTK goIV3oeBqlR0LbrNU0HWGa o2o3Rb36P37aZ2BqqTN+PG TmiEN7yCY1 qP6rSxCsMcQ1RTgzE707Vo OeqNAjFbdui8ykg4floCi6 IxN5AOOpptRayPzmQXU6s1 NkUa69I10l IHdpZHRoPSIxNSUiIHZhbG kvcg5skW6vHh5+PGNvbCB3 jCZ7rI4qDnFhKqR1NFrwF5 49InRvcCIv Sdqdp9jvw4monNq1FzBfUL OlqeVmwZldMMX9d0FyGe51 W4HbpAems7ZxPbn1wj56vV Vzn8T3pLN7 I3AuCPUijkfgdQQjqPcpNP 9zCKKaoviyLTVnrT8eGOSh I0a4MrJbBdX4JNfqR7Xrcc Z7HNDynHSw YFjqYFI7R38me9Q7BHAnPW PuOBH3kLF5vG1jdGabpblx bGVmdDsgdmVydGljYWwtYW ewA146SNOf jOeyZMNltH2pXHAumKIcgI ntQK0uYGIpmxzvAbGWCaLL FvhuKQHTYTMGGpDVNJ68OL 40bOJit7X2 dSZ5A6MvTYLddnpyukydaM C2ZBAhOMIpdB71zMOyZDjp Sa8cn3P7u145YZFlMASkzX 85Cf6ezNdf ESTrpHZJeA7cnzlnn0cnlq ndHiZvAQGgCMi4GXd4ZNLv cOxbVqYtRDS8SxX3CYA2cA ZarX2prVem rrazrH9jPrb+MDUvMTEvMT p6CRdsaAC+PXZbBPD8kHjz VZeyHSNgrK4gYXXsO6t4Lf OcKlG8SHgo D1GoPETyusjxVc16bU2jWs BpNdC8FIurN2BwkuE8ELJw lGEqIOpxWCA6Y01er6W5LD MwMDAwMDA7 dAW5pL5qjBfssbbpdDUenC zfseBrlXlsAXdcORlsR459 AJMqeUkaAaN4QOuzCVRiHQ 48UZ99nCAn b7A1jNL5V6CeZFMoloeayu ihhEU6JXUuJCIhcV49qNGl WMlqZo2ck3Y2f744FSCcDU RqdM16Ek5c yScoSYUcvWNBnB3vhvbph1 wzhxtgFvQbVBPfNOz3FHi9 XLOzgOezPlPjQQF8TlF0TG Z9iYCvqY1e iFbrzfspzM2tPxt+TWFsZT wvdGQ+SZLqBBI5cXoyZTdu XVJkeE7yFFOnG9h7FjZeHx I3KQadB9Vc VAJcomuxNi83wQ5lPsKgFs S3ABckY8YqibO5UUQaxUAa AHmsPOG7L99ij1Y4HWDpHD QrMUZ2iEI3 wS2nqDhtpbpacJNggOjhcs PzuChjMIqkIJysJ460JGSa xGsxMk17zEYvbDoddtR3O8 RkPjwvdHI+ NY55FAWuUK80wDAdzVSzj4 tejAu8VoBkDFLcGTE6iLaw QObts2WwINZpU58feCOcm1 S8KSOslXvt nIYuHmVolZC0mI6cJEewmo tqy5kvcdyaVhzxf5ymkb58 wE89A31fDNftOALaEDMbXU UiIHZhbGln hx7dgL6iLn6+JJVeoHP0mW V6sE9dJfAuEuH7ZExkS954 JyCqeUPhVtztm8wcl6xthU g9BaVwCWWa dpPpaImkTGK8y0HrAo30R2 9sIHdpZHRoPSIyMCUiIHZh cZimqx0bvD1bWg7+PC9jb2 zfhc93fC27 dHI+ULJpKYD9tAecNXbxUF HtoG8iLBpuUkP1FWAoWtGw mY73tXFlSDhwDs1vwUtowF dzHK7tZQZz bvezt239ImTum6fsIXJmzW BiSRafDXK3C85bk3I2GZJe QSWjFWF3cNF0lJ3cvIhpja ogbGVmdDsg cmTkqOgqRButMXnsZ344YI FnrUdmNmMayIUkF2ttygBZ ZZ7sPkpbnDF+ZVUyBWV5mM xlPSdwYWRk rM7jDPJzC8a2BtHbOfA8NU yvL4DzhlP5ONXocZYpXCLl dDAIsS3mgdeay1nkoueiHg AwMDAwMDt0 QVa3OUVspQkwOkKgEDC0Ma B6AWG5qILluV5boDehwhxt zM4bFus+RklOOjwvdGQ+PH WvLWO8gNhl DSkpRJJojS3sXOMfI3v0Fl CpLgU0SUrfC1FtdlL7QBNc nZOuTHEpuUOUfV7xoqote3 xvcjogIzAw ULVbWLf1HRg0HAEksYyhZw CjJAY7RjQ9QFH8mDMamM8x bGjaxonmlA0fWmf+TVJOOj wvdGQ+PHRk BCY8sBlmIDxaTMFrbA2yUX SjE4z2UzEjFaV4HGmfN6Oe lhF6BUWfyRSrCHDbqTVIqH 5wffozf1dj yxevYvHaUHVxKFh4HJq4YK UdmKwoEtEzGLG9GbM9DWE9 vMAxjR6owHkjvelwpL7kTj c+HIT2YDB8 AW07UI94U0RfZdlzgQSwfP U+PHRhYmxlIHdpZHRoPScx CKFgGmLfcOwdOL1sDl0bGV VyLWNvbGxh cHNl (more content not included)... Normal [facility] Consent for Treatmenton 12-31 Consent for Treatment [id number]#1.0 0CD:127 Normal [facility] HEMATOLOGYOrdered By: SYSTEM SYSTEM on [...] MDRD (S/P/Bld) [Vol rate/Area] mL/min/{1.73_m2} Normal >=59 [facility] Comment on above: Order Comment: Order added by Discern Expert. Result Comment: eGFR is race adjusted. AA=. Performed By: #### 2 [id number] ####[facility] [id number] [place] [address] GFR/1.73 sq M.predicted among non-blacks MDRD (S/P/Bld) [Vol rate/Area] mL/min/{1.73_m2} Normal >=59 [facility] Comment on above: Order Comment: Order added by Discern Expert. Result Comment: Print Journalist neil kidney disease could be indicated at eGFR's of less than 60 mL/min/1.73m2. Kidney failure is indicated at less than 15 mL/min/1.73m2. Performed By: #### 2 [id number] ####[facility] [id number] [place] [address] Consent for Procedure/Surger yon 01-27-2022 Consent for Procedure/Surgery [id number]#1.0 0CD:127 [facility] Progress Note-Physicianon Progress Note-Physician [id number]#1.0 0CD:127 Normal [facility] Pre-Certification Formon Pre-Certification Form [id number]#1.0 0CD:127 [facility] Coding Summary.on 01-23-2022 Coding Summary. CD:[id number] Gh 0bWw+PGhlYWQ+FV5MOUGqV 39rpGQutJ2LH6gTCR3FMQG FJLLAAV1SYH6afLX0RCuiK 2VybiAv VpiptGFkOX80IVa8TKF3fK qgLUelzV3xhJOyA1b1BsIy PI74zZ80SRkpJPMbVdA0Qm ZpbjsgbWFy Z3tvGaEaiZAzAxn+PHRhYm xlIHdpZHRoPScxMDAlJyBz xNyvWK4yFn3eJFDxNSNqlA xhcHNlOiBj j9laVGVzKSuiZT1yaFsyF0 YjxVO1RHGqb7i2Me03yBP+ OYLtGHD0uDcjOKdpi501Xp Idr1twYZT8 dZFgQBlcCCX8K89il0B6OB VtBRYwYAF0xNE6oR9fqKgr eitoO5FmbMUpZjO1PSF9vF GldP5duYhb yyddmE0kPew+U38YKE5MSU DXVC5WQnp6E9HoFtjshVQ+ DL83VQKoGJ71aPQfrETlb2 aaoSo4BzZr ZEPkUBZ2wIbqPGgri8IaNC GkE30bkQOtb8J4OMSngQvp lOQqLeReyPJ4nO0hWWvmsq bnd4msuxtm Rqpoh4tgvo66dU34S16jQY ukNKRpQGM5PYTtGIIysYfh zd2srY9cXy8+ITjsq1jsu8 hklSr4LkFt PZSmkjHqtMlqPDS8i6PiDw 70L6YkrFerf1TtWbo1ps83 xNAej9E0aOA4CDstRYJymM 4nYYuwVnY6 AIXeMzAmrZ31zFSsEGaiPj 0llPdpbMozOC9tZTEgmezr DTRouC1iPBAeoMKqwDqfJL 4wNTBpbjtm a114YcIjWMS2HTGohIZcH8 UyiQ6kZkElFCLzMXBqO5Pg lMKeQBurB439NKkeHiU7AB CdyzCmG8Ex JRBybYczKkN3f9I9Ft4Qv2 MbpmciWRC9XSunGOI7SxR9 QgMvYkV0H2ZaKdx6XABwjD znQP4tH5Fx YTKgqhqmskkvtGR3FACjJC ZwhQ66yYAxJCbzTb7xc9D6 r424SRSnMXNcwN47Ca6aqS ogMTBwdCBU qU2epjshr0gopacfWtCsXW UhWSl3TOu0GRTctDjhEcAk FJL5UgR9MKB1zPSxbQ1gnO nzbzoapF3d Oyc+L81xzU1pFFN3UMH0rk mhOIDptwLcNW96YM40A6Jb PjwvdGFibGU+PGRpdiBzdH suXJ0qIgGv g4nma6QuHMosR5AsNYMeAX ilJkw7RNTpUMF4hQJ7qA9g FLAzGQwpg1T9mKA7Y1Nmkf Ztyz8jq6bw IZKhQEulU10bjTDma2E7HI PmkZZ5XQYetUbtVxDneG54 Oyc+YNVkiOexf9KtBwcxb1 qys2lgaJe2 TpTrKKAjkvKrqQcgIXN1v3 UsDy23M63jSPmtMQWoACLl TMYeBPPqrEmirv6dtM9zEd 8+PGNvbCB3 tAI3xL2oSKIqUjP2AQfsT7 63IoKdaKFeEhxat3rkx6fs sNn4UtIbJLHngmJkhUanND B2c4QaTx31 N95zIEgwBIKvVOCvIPAjKV VyxZwyrj4iiK6mCy9+PC9j h7izxq44dL33nTV+PHRkIH R9vEtgPYsw WLWwsN8fUVqlKzI4CPPcCk CeqH64fFIoLIpbVl5klLjp eGbbEI6lOEHolvdhg444Hd Wzn3ntAEQk dHOlELouTHP2N85rx0M8ND UhYYApCHZ1gNB1iC9nuHav bjogbGVmdDsgdmVydGljYW dhZUrgK205 IHRvcDsnPlBhdGllbnQgTm HdXUb7S3FqMtn6UYBemToh PP3dyTYoKApxBx3zfTntzV uqNW6bYVKv bxhxv618QdQcm4peCKCmoR XxGKrjLNB6J98ro7K9OMPi IQIwLNL0nCB9yE6ynSpras ogbGVmdDsg brYwzQzmRYmoDYhdB719TR RvcDsnPkJpcnRoIERhdGU6 SV30DK99jXTsp0L3dUF5I7 BhZGRpbmct envkfDY7WAOdZNWaaW59Qv 1tjXihFs9rNOBdPOM6RTJy pFNqX3CzbB3hTkEwSBXaLE CxD6XxmASf VMtnC074SOjuUdB4YERxtk KbT8BuAIXobWkaAoI4g2U8 Lb9MH5E4TD06SL81jVXaj6 J3vHQ8O6Je ROKgpzgbejgctXQ4ZVNnJI MrfN45Sl6thMldCw9gDPWs ZVK8UODohJLmW3YjbX4sDo AjMDAwMDAw E9UbnOAsVTsrI869YPikDk K3NBEwanAdU7SaGNSmuKtf FvU7v1Q4Yv8FMHk5IO57BP 83dFNfm9D4 hYF0X1UcFBSlnwjxgpzryL B5UIYkRBXjxV30Im7ubVok Ao0rXUOdXFP7HIXbvXRaB0 SgrS0hEvXw PMNhTEEtH1ZqsFLdGSneC1 19SRdsVuB9EHPstbOlH3Ag PKVkhUeaNiF9p3B3Yx5GXK QmBW77QZT5 lEW6TW51GZ44L4SkKccfrK FibGU+PHRhYmxlIHdpZHRo OZqcTDQpByGmqVljFU5hZv 9yZGVyLWNv iHioiNOtKiToy9jxJQKhCY wfGJ7biHyyP4OcuMR9YKXf a3r8Fw47Y43wJ6DhqFN+PG XnjBF0nZQ7 xN5wPiDrSeL1DNthI239Im PqaKDiGiqrf3prc4hhzKx0 LbS2MWRuybEujAlrGXL1k3 VnHz30V09g IHdpZHRoPSIxNSUiIHZhbG kjgq5cjI7uLj9+PGNvbCB3 tWO3pO6lFuNwKoD4VSpdP1 49InRvcCIv Yrkzw2suu5cpaXy0UfBbIE SsvqTicStcZFR3r7EmXh10 G4OeiJfpz2AdFag6gv58nR Jia5H9sXT7 W5JmKXAtaphsuITghRfdSA 1kEEWwegoqGFPbrJ9aMVPl R5d1ZuBaRiE5LEhtK5Ghmk I0AVYhtWZn FDebUSW2A00gg7J3NZSmZB AaPIF0kSH4sI0yoSobjeow bGVmdDsgdmVydGljYWwtYW xwY368GRCv kLwrHOEfiS7xPTAgnGLjpA ljOR9lAMAehwzhYuKRZvQR XrvoORKUWETMQeGYQB66CB 51vKVqd0B0 kHM3K8TeQUTqnojpjqinuK W6FBWcVSOfxQ37bVUhYAhq Xx9xd0J8g003CAMsMCNhyY 57Yf9ayNiy QCLgnIQSaI1fcftsq6ygkj szLiJuXHXlFSx4EJt7CHOi sSahGmYaUDE2FfC4XGX8fM VviK1viDga djmdiX4bKwz+MDUvMTEvMT r4NEigrSP+TBAiOMZ8lQdc YTlxOLWoaX9kKCLxI0z5Yt HkXxD6LHkb L5ZaEOQmbqzmDa94mQ2rAr HmXvW2MSrqS4DrnkB4MZEv dMEbBCigLJL8U30vb5B5PE MwMDAwMDA7 bMP9sI3phFugraujgFMrjE tvzeBotAovTOcjOVrmT085 CBZnnIcpFqU6WCjwPMExSK 95AF50vVYd z8U8iZA3K0YvGOQygzeoaz fncQV1KDUcNIHykZ11rBOz YLxwRe5ce9L2o881CDXcUJ QtkF95Ak8u hEkaWNHftXIEoO4ppxuwh6 tpjkpwCiOrNPZyVWq9VEy2 NCAahDzzNlNcUAK2YmP5GU N9hHRwhD2c zFcoybpzwT7jXdk+TWFsZT wvdGQ+CJQqCXJ8xWpwHKqc UWUjtG2vHNRoH6m0BfWqSh Y5BNzsY3Nw IIFnqxybAd96jY4fScSyBc X7VBwgQ4FqaeQ4ACPrnFKh UYibSTN1B34iv6C1ANNsXT FeQTG4mKD7 kC3ghGrutixwrZMwmNcyuf RwpZybMZnzXQtbF123CEMk yTucRsIjS3ZhkwniDksnqO Q+PX98dl15 V2FdGoraHfs6BSNhNJE0vO P5lB8zMHYtUBykq1A8zID4 F4ElvqUyfp3nr9eiNUMxLC uxL67xkYVl z9Z4DOQogBJ5KCGrtLoyIv VzcS07Iky+MITabIhcc4Pm Ahilg9snq6kqkGm2PoEqPH IgdmFsaWdu OSB9n9SoNk46C58cJWkqJQ BaPNSeYCPnMYTlkGahmy2k fE2zAe8+TZIgwCT7iBL8cN 7tOmYxShS6 QIkrZ318NqRpuFZpHpimy6 cjj9fetMz1PvEoXPJtelXc xJlbSDU6i2TkPo06L1GgoV btb3UtFjg2 eu34gEToc0E3vIH1G8CuRJ QzavdloFWecXipWQ9xCPBz doziTTUntW6rNEGhN1a9Zr RtMzX4YCmh Y8CxigK8IZIigZAmIJYbvX BLfD6znykvp8wfyayhVoXl XMNwKQx1JIu0NQYqxCmsHw DbTUS7WfX3 WMR2lSXcaJ1pnUfradjptS 9wOyc+RHu6d1qkoXLmHY1j bZZ1YP54RV82mSPfc5I4tW K8B4AsMTVd nvxigrdzyMH8AERmWOOjzQ 02Xm7anDtxDa1hOLRtIFU6 UGTycKBkO8QymY7pYbQoIL OuWATiQ7Hw uXEsGXruN618LDxnIiG8TT NmqxGqP4HuAWHonFqbWdM0 p8U8Wb4QFR39FP80KY66aE Whq4E0uRW3 N5JwLGDwvnodoazpiPT3LI VyDJUqjM73Mv3huPrvBw4u TUSxAUJ6EYXdxVIuS3UzmT 9yOiAjMDAw GKHtN2HkqWYsCDxbN945NC wtSmM6ROHrmxFuK6VeWIGm iMuaNvJ2k8B5Ur5HFn25VJ 97GO54oGJm c4A3uXZ6S3QgGHUqkekydb bduZW3IULuNYFkqQ17Xp3r pIeaWr8yMOKtSNH3HOKxxW KwA9QgcE8u WtCwQTQgCVFpE3RluVOdWM ehM005DCzzDdD9NDThgaWv C1ZxXLBalKtsLyL1n9E6Ql 2ODWxhtiv2 O2BdIgnwiZX+TB10QSQiHD 47wQQnlNCfv6lovZz2KrPh BZMwZQE2mTfdCRjif4EcQA AtG97qySUr c2U6 (more content not included)... Normal [facility] Consent for Treatmenton 12-30 Consent for Treatment [id number]#1.0 0CD:127 Normal [facility] Heart and Vascular Office/Cl inic [...] in office. He had echocardiogram performed at [facility], which was normal. He was [...] protocol. [1] patient was then referred to [facility] and was placed on sotalol followed by [...] with speaking. 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 He is taking and tolerating his medicines well. He has had no exertional chest pain symptoms prior to his COVID infection. 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 His daughter works here at [employer] and was present for his visit. Patient is now her (more content not included)... Normal [facility] Comment on above: Result Comment: Elec tronically Signed By: Camilo STARK, Kushal Moran.rita\Date and Time Signed: 01/23/22 14:23 EDT Stress EKG Tracingson 2021 Stress EKG Tracings [id number] 05 [id number]#1. 00CD:127 Normal [facility] NM Myocardial Spect Part 2on [...] Stress Dose (mCi Tc99M Cardiolite): 29.9 Normal [facility] Consent for Treatmenton 12-30 Consent for Treatment [id number]#1.0 0CD:127 Normal [facility] CT CHEST WO CONon 01-19-2022 [...] by: LORENA ANTONIO Date: 2022-01-19 17:17 Normal [facility] HEMOGLOBINon 01-19-2022 Hemoglobin (Bld) [Mass/Vol] 13.2 g/dL Critically low 14.0-18.0 [facility] Comment on above: Performed By: #### H GB #### [facility] [address] [place] [address] Dr. Maria T Canela Pre-Certification Formon Pre-Certification Form [id number]#1. 00CD:127 Normal [facility] TSH - Thyroid Stimulating Ho mckenna, Serumon 12-31-2021 TSH Qn 1.65 m[IU]/L [facility] [address] DO Work Phone: Comment on above: Reference Range: 0.4 4 - 3.98 TSH testing is performed using different testing methodology at [facility] than at other [facility]. Direct result comparisons should only be made within the same method. Tobacco Screening.on 022 Adult depression screening assessment No [facility] [address] DO Work Phone: Fall risk assessment a) No falls within the last year [facility] [place] [address] DO Work Phone: Tobacco use status CPHS b) No [facility] [address] DO Work Phone: Outside Recordson 12-30-2021 Outside Records [id number] 20 [id number]#1.0 0CD:127 Normal [facility] Coding Summary.on 12-24-2021 Coding Summary. CD:[id number] Gh 0bWw+PGhlYWQ+KN0CHVOzM 41fwKXrtV5RN3xEEI6GDBW GNVPMPL0YIF7qwBQ3NCqgW 2VybiAv JjupfBFfIF13PCq3QPR4bP lgEZagzB3xcCAhA5s9FlKe LJ54rT76XGvaFEPwEuY2Yb ZpbjsgbWFy X7toBeWluMDxFjc+PHRhYm xlIHdpZHRoPScxMDAlJyBz aEdqRS0tDz8mDBTyOLDobW xhcHNlOiBj e3wcFYGyDCaxWJ5acWtsZ4 WmoBZ9EKBbv8w7Mj63pKG+ URMkQCA3eNuvTRxux622Zc Fuz5wdVXW5 aKMsYOdmBTI7A06gr8H6LP JpPDTvCAB9kFM6jV6zcRsh gujlG7RezNWaTbX8CKO7qA WauJ9ocOlo lsjuhB2mEfd+G21YKK1CNT WFZW6DAxu4U9DyBghdsAZ+ II21TQMgKO95wIDtrHUht3 ezvFh2QtKe RPTdRSM1oGwmKEqpb6OcTE JyT25svSUud0V5QZPjnDtc tSAjZfZjjFQ4zT2kQWzicd ycy0kborqi Wdhhh9apzu73kL74F70bYX qgNYUwEJR5BCKoEIMowZif gm0fyY1mFl4+QHoel1flx2 ntsSk5LfIh TDCqksRkqIfcSXM9c0WjPe 20O3KpnMivg7JiQty2hd95 qTVlh0N8lGN6XAcmQMDdbW 8mVWksZdS8 IHUuLmDkfZ77sIYdWZthWm 5bmJgcuCigXT2nNODgurhj ZRTpiH9fXIKntHDgaBwwSI 4wNTBpbjtm l373UoSzSNN5VDNopJTdG0 SuwQ8pShToRBEySRGkN0Um cIRqMXddG535CPotMoQ2FY NhcxUfK3Ih TZWltZjeSgK8a3K3Hd7Tl8 JmphaeRZQ4JZbxEVW6FhI5 JcZoHxR0E4QnMdr4KIMlgI wbCI1pP9Uc GDSplxysolcxdQH0EWXfMY NdaE39mNOkMOjkWn9la8L9 c577ORAqTGGliM05Qd3lqD ogMTBwdCBU rD4lambkg8cfnrvoIdCjND CxETp0LYs2EFGknYomCwWg NVF0OtK9RPK6bRUnbI0muC gvyqhzcE4f Oyc+A90uhA2wEXZ6FKL1mj jtSZCsqhXxIT15AR00W9Tm PjwvdGFibGU+PGRpdiBzdH ezSH9wAiAc h6nwi5IlPYioA4CnCCZvPW zaJcg5BBFnWTY0bSQ6lQ5x XTOtVHujs4J9pMY7U8Ckrm Muui8xu7fn SQXtFSscZ43dbQQrq2Y2AM EpbBG7IYGadOpjJaPtfL20 Oyc+SGVsjKqnv4GcKeapj3 gyf3rxgOj2 KgDmHHGleuMmkCgoWWK9f2 QjNk40N97pCNhwETTxVFFr JLSxZKXqiUrnqo5dyW7dJs 8+PGNvbCB3 nNO1sK3lZRCrNcJ7DXnzT6 25BgOdgGPuBpcup0igh7je aYn0BlIsMPIanzCqfIboEV Z9e1XyNp40 P44qUHzzMIOvEXEwEZYvEK BrwBtlgm0cmX7sNv7+PC9j d2nrdm06bR47uUC+PHRkIH C5qSjfYMao CPOfgC4rEIlhLpQ5GSXyUv FapE03yLSnELnnSp7ouWxh kQrcJM2bSDGyhzuqv825Mq Vku2bwKKFw xKGbQJoiKPQ8M23fw3W2RB XqOOVxPER0dXV4hH8ztLjz bjogbGVmdDsgdmVydGljYW xpZUtjC081 IHRvcDsnPlBhdGllbnQgTm LqMYb7S1BpMtd6ESJdpZzt VY2niARpJWbkOf8keFgcpF rxIU0lFMBv dvlbk760HtCcb5xsEXShbM EvDTbyRDO0E59qe8H9VRFb TYXhMLZ5yBT8mV0btOqxlq ogbGVmdDsg fyInnZvdPOwsQTrgH577BR RvcDsnPkJpcnRoIERhdGU6 GJ81VB87sJBir8W2pFR0P4 BhZGRpbmct dtofeFD9UVLvDRAyyX57Sb 4nhIggTw4kUDQxDQH3EUNf hELeY7KvoP8vXtDqFGPrDK TaG4SsnROh BPltQ449TCvnTaD8HZZejp DhF7JvIKEsuEzyQiP9l0R7 Yq0OR8Q1OF97XY12fDLmq8 F5fSD8X7Yl TUYleiewvywfqWD2IJSoQA OcpS14Tn0xcFleCy0fZZGz KSI6IGEiwZMsV2LvsP7lSr AjMDAwMDAw B2JmtWAgLRbsL468QYxjBg T9KALaxwSbH4XiHWXeiMlq SbD1a4T5Ri6AEVw9AW35ZQ 24dYPcz1I3 xYZ5A6LiIKDehqnhxwjbqI H5UQFpCXYxbA05Qs1mgGvr Rk6mUXLcVPN5ITTjoMGcY0 CdgO9nQwDz IRMsVIJwL8DzuGAtMQpxI5 03QNabDqN3TCOmcvTyQ8Hm RUWhxSuaMtW6r4B2Xv7NYJ FfJI98FDI5 hJU5UO62NH61B9YcKgwfbR FibGU+PHRhYmxlIHdpZHRo NZdmBOTmHzPevZasZD5lYi 9yZGVyLWNv aSpzzLAnGbTvb1ysYHRjMQ gyXM3urOpqI7FqlYJ8FHGq n3q9Hw30X14pS7HqfVW+PG EorTE4qCJ5 zJ8yLsJpSfA3NDhjE213Tt HwqWSoWwdja4xof3msnLg0 VmN3EOLzfhLkiPcmJHA9l0 QrHe87K38q IHdpZHRoPSIxNSUiIHZhbG rhtb3zlP8iXs9+PGNvbCB3 jJK7nB7yDyHvJdA9JNqtK7 49InRvcCIv Lhnin2ffb8ofdGd8DnRcEU RddqFejKwmZEK0h4SkZg18 H9EnqIsga0JxNqt9qj28xP Jbg6X9yMG5 E1QhMCBhexuroRFvqYxcMU 1hCKNqbhrsKQJoiF7aFYFb D4n6SoYqRuT1POeoZ9Inzw S4QYChoQUp GKniMWG4C10fd4O0UVYkTL EoUTX7zZA0iE1dhVixezry bGVmdDsgdmVydGljYWwtYW uzV083RPUz oGacKAZiuC7qJOCpcVTgfP irGX0pYSKifnlzHhJLDlBW CgtxCMWKKXPMCaSUTH72CC 98eKUls8B3 oIT5L1NiOSPbyqidzwitsV V5WHRhJWUxsQ94zSJhIRpr Jv2fi5F3a499DIHrEQUxuM 10Jz3ymSha AHVxhNBVvB2oidlhp3xyjc beQxEtMDUwUOn2CHv3EVTz uDxeNpWoUZG7LyX8RYU2nA VffG5anOvh knqioR5oVim+MDUvMTEvMT s6VQrsvGV+FHTaZWW7pPhd GLopKFZfhF3bOYIgG6t6Ub GcNjX3WGcp M4GuHTMpvthwXa12vH8iUn RaJwL7DXlfK8TkjfS4MMXz fDRbXCgvTNO6Q09if0F3RM MwMDAwMDA7 oVQ6qD6vmEqbubfftQPkwI zjclPksHwkZBwpCPwbL667 DXHskLaoTcR7CLbcABCaDZ 07GZ39aZJf d3V5sJG8R1EuCGOufbnjdw kyvNN4ABCsOSWliL13dNBk ZJawGg3gf2T7k319KNWsLM GvmC42Ss0f sZfuMEPooFQWdE5smnkoa9 uxkinwDhMdWXUhCDj2NIo1 FUCfrDkyQqAxUQU2TdT5RI D0zTIjtP9j bXoznjmjlA6zIqk+TWFsZT wvdGQ+WRIbDPJ4aQedGBqj SSPxpU8nHBXwT9x5KaRzOg Y2YTxtG5My AUXsggsgIo16jE7qMeZtVh G2KGzsW7UolkC2ZZQegRMi RMloTIC3V84eg4G6ESOzJR StZXM0yPS4 xQ2hpEhaoeunpDEypBcxih BdiCawEGhrOKxpR730MIRq gUbhMp67eVJfrUvziqF6V7 RkPjwvdHI+ NW07QPZtHR40eIJdnSYri7 iutPn1LiNwFSZaHKO2hQzn LVkec4RoXFCrJ34pyWTal4 U7RIBtxNpq eQGbHfFwcFR8uE0aOOdzma daa2lievcnSgnhg7rzui61 wE19A66vRMkcJXWlRNJtWB UiIHZhbGln zc4zxJ1lZn2+TVXxdBC4bV X5lC2pPvEfHrL9TUjsF256 PqYxvOWfPievc3kic9tqyG l6YpLbMPGk vbHlnUtdQMO2n6QnVj91R2 9sIHdpZHRoPSIyMCUiIHZh uUqonm9mdO3aCh1+PC9jb2 xcbj29hG86 dHI+FAReFIH0oXtjYDjsPA XdzZ5ePLmfLqE2RORuBgYz uV69rFHrIQoxTl2uzSnglZ jvFW3fBPDv cybem475GjGib9saWTEiaH HcFOcaZYD9B28bd3M6WMHa POXaLWE4cYJ8eM4smSmipy ogbGVmdDsg ikDftKeqBCipZQcqV042IJ JqbHpoGvRrrKCsV6zzbfAG YG6nHjyonBV+ADYsWSD0nW xlPSdwYWRk vB2lBYGaV1r7DqMuCuR4JT wmS5OazqR2KAKfwORjDJOj zWHQjD3veujpu5epvamrGc AwMDAwMDt0 SQq7SNXujNaaPnJrKKL2Am M1RZS2kGDffV7gnIsomnyu wX4iAlz+RklOOjwvdGQ+PH YsJEG9aEhj NIwlCILptU2oSWJmQ0w7Zv SiTcT0NTdfV9SokmZ8UVMk qWYfSXMshZHQlS7cfjohu5 xvcjogIzAw POQbGBu9SJy9RHUwzEogSb FpJKH1TeS0ZFQ8oBGyrE3r yOyhtmnnyC9sXzf+TVJOOj wvdGQ+PHRk NOG1iUweQBgaEPZvsQ7lZE UvJ7m0UoSqFfE1YUkxH2Na sxT3QWSpyVUcYBAbnHVXhK 2wvueni1tx crrpDsOiHEVeDEq4SRa3WU AccKuqZqYyZMS6HjT3JTP6 bVNzyW7ziIpuoxvdmE0uTh c+OLF1KTR6 CM12CD42Q8DcPjiicEDjjD U+PHRhYmxlIHdpZHRoPScx WXLtGcUaiPvyXT8jMp2tMD VyLWNvbGxh cHNl (more content not included)... Normal [facility] Consent for Treatmenton Consent for Treatment [id number]#1.0 0CD:127 Normal [facility] Heart and Vascular Office/Cl inic [...] in office. He had echocardiogram performed at [facility], which was normal. He was [...] with speaking. 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 He is taking and tolerating his medicines well. He has had no exertional chest pain symptoms prior to his COVID infection. 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 His daughter works here at [employer] and was present for his visit. In [...] perfusion R (more content not included)... Normal [facility] Comment on above: Result Comment: Elec tronically Signed By: Camilo STARK, Kushal Galarza\.br\Date and Time Signed: 12/05/21 15:17 EDT Progress Note-Physicianon Progress Note-Physician [id number] 00CD:127 Normal [facility] Tobacco Screening.on 021 Fall risk assessment b) One or more fall s in the last year [facility] [address] DO Work Phone: Tobacco use status [facility] b) No [facility] [address] DO Work Phone: Tobacco Screening. Yes [facility] [address] DO Work Phone: COVID-19 [facility] 10-05-19 21 SARS-CoV-2 (COVID-19) RNA PATTIE+probe Ql (Unsp spec) Not detected Normal Not Detected [facility] Comment on above: Order Comment: Healt hcare Worker?: N Result Comment: This nucleic acid amplification test was developed and its performance characteristics determined by [employer] Nucleic acid amplification tests include RT- PCR [...] result in this assay. PERFORMED BY: [address] [place] [address] PATHOLOGIST [employer] SALES REPRESENTATIVE SAMEER HARDIN M.D. Performed By: #### C ORONAVIRUS #### [facility] , Vital Signs Date Time Vital Sign Value Performing Clinician Facility 01-17-2024 15:33-0400 Body height 177.8 cm Margret Stevens MD Work Phone: [facility] 01-17-2024 15:33-0400 Body mass index (BMI) [Ratio] 51.65 kg/m2 Margret Stevens MD Work Phone: [facility] 01-17-2024 15:33-0400 Body weight 163.29 kg Margret Stevens MD Work Phone: [facility] 01-17-2024 15:33-0400 Diastolic blood pressure 84 mm[Hg] Margret Stevens MD Work Phone: [facility] 01-17-2024 15:33-0400 Heart rate 71 /min Margret Stevens MD Work Phone: [facility] 01-17-2024 15:33-0400 Systolic blood pressure 144 mm[Hg] Margret Stevens MD Work Phone: [facility] 12-15-2023 15:21-0400 Body height 177.8 cm Leonel Billy [employer] Work Phone: [facility] 12-15-2023 15:21-0400 Body mass index (BMI) [Ratio] 51.51 kg/m2 Leonel Billy [employer] Work Phone: [facility] 12-15-2023 15:21-0400 Body weight 162.84 kg Leonel Billy [employer] Work Phone: [facility] 12-15-2023 15:21-0400 Diastolic blood pressure 74 mm[Hg] Leonel Billy [employer] Work Phone: [facility] 12-15-2023 15:21-0400 Heart rate 71 /min Leonel Billy [employer] Work Phone: [facility] 12-15-2023 15:21-0400 Systolic blood pressure 134 mm[Hg] Leonel Billy [employer] Work Phone: [facility] 11-10-2023 10:44-0400 Body height 177.[address] 11-10-2023 10:44-0400 Body mass index (BMI) [Ratio] 52.8 kg/m2 [address] 11-10-2023 10:44-0400 Body weight 166.[address] 10-04-2023 13:56-0400 Body height 177.8 cm Margret Stevens MD Work Phone: [facility] 10-04-2023 13:56-0400 Body mass index (BMI) [Ratio] 52.8 kg/m2 Margret Stevens MD Work Phone: [facility] 10-04-2023 13:56-0400 Body weight 166.92 kg Margret Stevens MD Work Phone: [facility] 10-04-2023 13:56-0400 Diastolic blood pressure 64 mm[Hg] Margret Stevens MD Work Phone: [facility] 10-04-2023 13:56-0400 Heart rate 61 /min Margret Stevens MD Work Phone: [facility] 10-04-2023 13:56-0400 Systolic blood pressure 128 mm[Hg] Margret Stevens MD Work Phone: [facility] 07-19-2023 15:30-0500 Body height 177.8 cm Margret Stevens MD Work Phone: [facility] 07-19-2023 15:30-0500 Body mass index (BMI) [Ratio] 52.37 kg/m2 Margret Stevens MD Work Phone: [facility] 07-19-2023 15:30-0500 Body weight 165.56 kg Margret Stevens MD Work Phone: [facility] 07-19-2023 15:30-0500 Diastolic blood pressure 88 mm[Hg] Margret Stevens MD Work Phone: [facility] 07-19-2023 15:30-0500 Heart rate 65 /min Margret Stevens MD Work Phone: [facility] 07-19-2023 15:30-0500 Systolic blood pressure 138 mm[Hg] Margret Stevens MD Work Phone: [facility] 05-07-2023 11:45-0500 Body height 175.26 cm Kelly Jane Other [employer] Other 05-07-2023 11:45-0500 Body mass index (BMI) [Ratio] 53.3 kg/m2 Kelly Jane Other [employer] [facility] [employer] Other 05-07-2023 11:45-0500 Body temperature 97.2 [degF] Kelly Jane Other [employer] Other 05-07-2023 11:45-0500 Body weight 163.75 kg Kelly Jane Other [employer] Other 05-07-2023 11:45-0500 Diastolic blood pressure 93 mm[Hg] Kelly Lucinda Other [employer] Other 05-07-2023 11:45-0500 Respiratory rate 18 /min Kelly Jane Other [employer] Other 05-07-2023 11:45-0500 SaO2% (BldA) [Mass fraction] 95 % Kelly Jane Other [employer] Other 05-07-2023 11:45-0500 Systolic blood pressure 159 mm[Hg] Kelly Lucinda Other [employer] Other 03-08-2023 09:30-0400 Body height 175.26 cm Beena Benítez Other [employer] Other 03-08-2023 09:30-0400 Body mass index (BMI) [Ratio] 55.67 kg/m2 Beena Benítez Other [employer] Other 03-08-2023 09:30-0400 Body weight 171.01 kg Beena Benítez Other [employer] Other 03-08-2023 09:30-0400 Diastolic blood pressure 85 mm[Hg] Beena Benítez Other [employer] Other 03-08-2023 09:30-0400 Systolic blood pressure 145 mm[Hg] Beena Benítez Other [employer] Other 02-15-2023 14:33-0400 Body height 177.8 cm Beena Benítez Work Phone: [facility] [address] DO Work Phone: 02-15-2023 14:33-0400 Body mass index (BMI) [Ratio] 53.38 kg/m2 Beena Benítez Work Phone: [facility] [address] DO Work Phone: 02-15-2023 14:33-0400 Body surface area Derived from formula 2.72 m2 Beena Benítez Work Phone: [facility] [address] DO Work Phone: 02-15-2023 14:33-0400 Body weight 168.74 kg Beena Benítez Work Phone: [facility] [address] DO Work Phone: 02-15-2023 14:33-0400 Diastolic blood pressure 82 mm[Hg] Beena Benítez Work Phone: [facility] [address] DO Work Phone: 02-15-2023 14:33-0400 Heart rate 64 /min Beena Benítez Work Phone: [facility] [address] DO Work Phone: 02-15-2023 14:33-0400 Systolic blood pressure 138 mm[Hg] Beena Benítez Work Phone: [facility] [address] DO Work Phone: 11-23-2022 17:11-0400 Diastolic blood pressure 84 mm[Hg] Beena Benítez Work Phone: [facility] [address] DO Work Phone: 11-23-2022 17:11-0400 Systolic blood pressure 138 mm[Hg] Beena Benítez Work Phone: [facility] [address] DO Work Phone: 11-23-2022 15:32-0400 Body height 177.8 cm Beena Benítez Work Phone: [facility] [address] DO Work Phone: 11-23-2022 15:32-0400 Body mass index (BMI) [Ratio] 53.95 kg/m2 Beena Benítez Work Phone: [facility] [address] DO Work Phone: 11-23-2022 15:32-0400 Body surface area Derived from formula 2.73 m2 Beena Benítez Work Phone: [facility] [address] DO Work Phone: 11-23-2022 15:32-0400 Body weight 170.55 kg Beena Benítez Work Phone: [facility] [address] DO Work Phone: 11-23-2022 15:32-0400 Diastolic blood pressure 90 mm[Hg] Beena Benítez Work Phone: [facility] [address] DO Work Phone: 11-23-2022 15:32-0400 Heart rate 82 /min Beena Benítez Work Phone: [facility] [address] DO Work Phone: 11-23-2022 15:32-0400 Systolic blood pressure 148 mm[Hg] Beena Benítez Work Phone: [facility] [address] DO Work Phone: 10-05-2022 14:45-0400 Body height 177.8 cm Beena Benítez Work Phone: [facility] [address] DO Work Phone: 10-05-2022 14:45-0400 Body mass index (BMI) [Ratio] 53.81 kg/m2 Beena Benítez Work Phone: [facility] [address] DO Work Phone: 10-05-2022 14:45-0400 Body surface area Derived from formula 2.73 m2 Beena Benítez Work Phone: [facility] [address] DO Work Phone: 10-05-2022 14:45-0400 Body weight 170.1 kg Beena Benítez Work Phone: [facility] [address] DO Work Phone: 10-05-2022 14:45-0400 Diastolic blood pressure 84 mm[Hg] Beena Benítez Work Phone: [facility] [address] DO Work Phone: 10-05-2022 14:45-0400 Heart rate 52 /min Beena Benítez Work Phone: [facility] [address] DO Work Phone: 10-05-2022 14:45-0400 Systolic blood pressure 126 mm[Hg] Beena Benítez Work Phone: [facility] [address] DO Work Phone: 08-17-2022 15:25-0400 Body height 177.8 cm Beena Benítez Work Phone: [facility] [address] DO Work Phone: 08-17-2022 15:25-0400 Body mass index (BMI) [Ratio] 53.38 kg/m2 Beena Benítez Work Phone: [facility] [address] DO Work Phone: 08-17-2022 15:25-0400 Body surface area Derived from formula 2.72 m2 Beena Benítez Work Phone: [facility] [address] DO Work Phone: 08-17-2022 15:25-0400 Body weight 168.74 kg Beena Benítez Work Phone: [facility] [address] DO Work Phone: 08-17-2022 15:25-0400 Diastolic blood pressure 78 mm[Hg] Beena Benítez Work Phone: [facility] [address] DO Work Phone: 08-17-2022 15:25-0400 Heart rate 66 /min Beena Benítez Work Phone: [facility] [address] DO Work Phone: 08-17-2022 15:25-0400 Systolic blood pressure 124 mm[Hg] Beena Benítez Work Phone: [facility] [address] DO Work Phone: 07-06-2022 15:45-0500 Body height 177.8 cm Beena Benítez Work Phone: [facility] 250 DO Work Phone: 07-06-2022 15:45-0500 Body mass index (BMI) [Ratio] 53.38 kg/m2 Beena Benítez Work Phone: [facility] 250 DO Work Phone: 07-06-2022 15:45-0500 Body surface area Derived from formula 2.72 m2 Beena Benítez Work Phone: [facility] 250 DO Work Phone: 07-06-2022 15:45-0500 Body weight 168.74 kg Beena Benítez Work Phone: [facility] 250 DO Work Phone: 07-06-2022 15:45-0500 Diastolic blood pressure 80 mm[Hg] Beena Benítez Work Phone: [facility] 250 DO Work Phone: 07-06-2022 15:45-0500 Heart rate 64 /min Beena Benítez Work Phone: [facility] [email or web address] 250 DO Work Phone: 07-06-2022 15:45-0500 Systolic blood pressure 118 mm[Hg] Beena Benítez Work Phone: [facility] [employer] 250 DO Work Phone: 06-15-2022 11:15-0500 Body height 175.26 cm Beena Benítez Other [employer] Other 06-15-2022 11:15-0500 Body mass index (BMI) [Ratio] 55.81 kg/m2 Beena Benítez Other [employer] Other 06-15-2022 11:15-0500 Body weight 171.46 kg Beena Benítez Other [employer] Other 06-15-2022 11:15-0500 Diastolic blood pressure 88 mm[Hg] Beena Benítez Other [employer] Other 06-15-2022 11:15-0500 SaO2% (BldA) [Mass fraction] 97 % Beena Benítez Other [employer] Other 06-15-2022 11:15-0500 Systolic blood pressure 130 mm[Hg] Beena Benítez Other [employer] Other 03-09-2022 11:20-0400 Blood Pressure Location Kushal Page [facility] 03-09-2022 11:20-0400 Diastolic blood pressure 76 mm[Hg] Kushal Page [facility] 03-09-2022 11:20-0400 Heart rate 60 /min Kushal Page [facility] 03-09-2022 11:20-0400 Respiratory rate 18 /min Kushal Page [facility] 03-09-2022 11:20-0400 SaO2% (BldA) [Mass fraction] 98 % Kushal Page [facility] 03-09-2022 11:20-0400 Systolic blood pressure 140 mm[Hg] Kushal Page [facility] 02-05-2022 06:41-0400 Blood Pressure Location Kushal Page [facility] 02-05-2022 06:41-0400 Diastolic blood pressure 82 mm[Hg] Kushal Page [facility] 02-05-2022 06:41-0400 Heart rate 56 /min Kushal Page [facility] 02-05-2022 06:41-0400 Respiratory rate 20 /min Kushal Page [facility] 02-05-2022 06:41-0400 SaO2% (BldA) [Mass fraction] 100 % Kushal Pgae [facility] 02-05-2022 06:41-0400 Systolic blood pressure 150 mm[Hg] Kushal Page [facility] 01-23-2022 14:04-0400 Blood Pressure Location Kushal Page [facility] 01-23-2022 14:04-0400 Diastolic blood pressure 67 mm[Hg] Kushal Page [facility] 01-23-2022 14:04-0400 Heart rate 70 /min Kushal Page [facility] 01-23-2022 14:04-0400 Respiratory rate 18 /min Kushal Page [facility] 01-23-2022 14:04-0400 SaO2% (BldA) [Mass fraction] 97 % Kushal Page [facility] 01-23-2022 14:04-0400 Systolic blood pressure 140 mm[Hg] Kushal Page [facility] 12-31-2021 11:54-0400 Body height 177.8 cm Beena Benítez Work Phone: [facility] 320 DO Work Phone: 12-31-2021 11:54-0400 Body mass index (BMI) [Ratio] 52.95 kg/m2 Beena Benítez Work Phone: [facility] 320 DO Work Phone: 12-31-2021 11:54-0400 Body surface area Derived from formula 2.71 m2 Beena Benítez Work Phone: [facility] 320 DO Work Phone: 12-31-2021 11:54-0400 Body weight 167.38 kg Beena Benítez Work Phone: [facility] 320 DO Work Phone: 12-31-2021 11:54-0400 Diastolic blood pressure 84 mm[Hg] Beena Benítez Work Phone: [facility] 320 DO Work Phone: 12-31-2021 11:54-0400 Heart rate 67 /min Beena Benítez Work Phone: [facility] 320 DO Work Phone: 12-31-2021 11:54-0400 Systolic blood pressure 138 mm[Hg] Beena Benítez Work Phone: [facility] 320 DO Work Phone: 12-05-2021 15:01-0400 Blood Pressure Location Kushal Page [facility] 12-05-2021 15:01-0400 Diastolic blood pressure 69 mm[Hg] Kushal Page [facility] 12-05-2021 15:01-0400 Heart rate 70 /min Kushal Page [facility] 12-05-2021 15:01-0400 Respiratory rate 18 /min Kushal Page [facility] 12-05-2021 15:01-0400 SaO2% (BldA) [Mass fraction] 98 % Kushal Page [facility] 12-05-2021 15:01-0400 Systolic blood pressure 118 mm[Hg] Kushal Page [facility] 04-23-2021 16:19-0500 Body height 177.8 cm Beena Benítez Work Phone: [facility] 320 DO Work Phone: 04-23-2021 16:19-0500 Body mass index (BMI) [Ratio] 51.94 kg/m2 Beena Benítez Work Phone: [facility] 320 DO Work Phone: 04-23-2021 16:19-0500 Body surface area Derived from formula 2.69 m2 Beena Benítez Work Phone: [facility] 320 DO Work Phone: 04-23-2021 16:19-0500 Body weight 164.2 kg Beena Benítez Work Phone: [facility] 320 DO Work Phone: 04-23-2021 16:19-0500 Diastolic blood pressure 62 mm[Hg] Beena Benítez Work Phone: [facility] 320 DO Work Phone: 04-23-2021 16:19-0500 Heart rate 65 /min Beena Benítez Work Phone: [facility] 320 DO Work Phone: 04-23-2021 16:19-0500 Systolic blood pressure 108 mm[Hg] Beena Benítez Work Phone: [facility] 320 DO Work Phone: 10-09-2020 14:30-0400 Diastolic blood pressure 66 mm[Hg] Beena Benítez Other Phone: [facility] 10-09-2020 14:30-0400 Heart rate 50 /min Beena Benítez Other Phone: [facility] 10-09-2020 14:30-0400 Systolic blood pressure 133 mm[Hg] Beena Benítez Other Phone: [facility] 10-09-2020 13:00-0400 Body temperature 96.8 [degF] Beena Benítez Other Phone: [facility] 10-09-2020 13:00-0400 Respiratory rate 19 /min Beena Benítez Other Phone: [facility] 10-09-2020 13:00-0400 SaO2% (BldA) [Mass fraction] 98 % Beena Benítez Other Phone: [facility] 10-09-2020 02:15-0400 Body weight 159.4 kg Beena Benítez Other Phone: [facility] Encounters Encounter Date Encounter Type Care Provider Facility Start: 01-17-2024 End: 01-17-2024 Office outpatient visit 25 minutes Margret Stevens MD Work Phone: [facility] Comment on above: SOB (shortness of br eath); Coronary artery disease involving hoonah coronary artery 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; High risk medication use; Medication course changed; Paroxysmal atrial fibrillation (Multi); Ischemic cardiomyopathy; Chronic systolic congestive heart failure, NYHA class 2 (Multi); BMI 50.0-59.9, adult (Multi); Lower leg edema; Sleep apnea treated with continuous positive airway pressure (CPAP); Lipid screening Start: 01-17-2024 End: 01-17-2024 [facility] Ambulatory Start: 12-15-2023 End: 12-15-2023 Office outpatient visit 25 minutes Leonel Billy [employer] Work Phone: [facility] Comment on above: Coronary artery dise ase involving hoonah coronary artery 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 (Primary Dx); Ischemic cardiomyopathy; SOB (shortness of breath); Edema, unspecified type; Chronic systolic congestive heart failure, NYHA class 2 (Multi); Paroxysmal atrial fibrillation (Multi); Hypercoagulable state due to paroxysmal atrial fibrillation (Multi); Sleep apnea treated with continuous positive airway pressure (CPAP); Lower leg edema Start: 12-15-2023 End: 12-15-2023 ambulatory LEONEL Gutierres [facility] Ambulatory Start: 11-10-2023 End: 11-10-2023 Subsequent hospital visit by physician Serina Myers Echo/Vasc Room 2 [facility] Comment on above: SOB (shortness of br eath); Chronic systolic congestive heart failure, NYHA class 2 (Multi); Ischemic cardiomyopathy Start: 11-10-2023 End: 11-10-2023 [facility] Start: 10-04-2023 End: 10-04-2023 Office outpatient visit 25 minutes Margret Stevens MD Work Phone: [facility] Comment on above: SOB (shortness of br eath); Edema, unspecified type; Chronic systolic congestive heart failure, NYHA class 2 (Multi); Ischemic cardiomyopathy; Coronary artery disease involving hoonah coronary artery 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; Paroxysmal atrial fibrillation (Multi); Lower leg edema; High risk medication use; Hypercoagulable state due to paroxysmal atrial fibrillation (Multi); Unspecified atrial fibrillation (Multi); Sleep apnea treated with continuous positive airway pressure (CPAP); Mixed hyperlipidemia; Medication course changed Start: 10-04-2023 End: 10-04-2023 [facility] Ambulatory Start: 07-19-2023 End: 07-19-2023 ambulatory MARGRET STEVENS [facility] Ambulatory Start: 07-19-2023 End: 07-19-2023 Office outpatient visit 25 minutes Margret Stevens MD Work Phone: [facility] Comment on above: Paroxysmal atrial fi brillation (CMS/HCC); Coronary artery disease involving hoonah coronary artery 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; Ischemic cardiomyopathy; Chronic systolic congestive heart failure, NYHA class 2 (CMS/HCC); Hypercoagulable state due to paroxysmal atrial fibrillation (CMS/HCC); Medication course changed; Mixed hyperlipidemia; High risk medication use Start: 05-07-2023 End: 05-07-2023 ambulatory Kelly Lucinda Other [employer] Other Start: 05-07-2023 Office outpatient vi sit 15 minutes Kelly Jane [facility] Start: 05-07-2023 Telephone encounter Beena Benítez [facility] Start: 03-08-2023 End: 03-08-2023 ambulatory Beena Benítez Other [employer] Other Start: 03-08-2023 Office outpatient vi sit 25 minutes Beena Benítez [facility] Start: 02-15-[address] Beena Benítez Facility: Start: 02-03-2023 Rx Renewal Beena Benítez Work Phone: [facility] 250 DO Work Phone: Start: 01-28-2023 End: 01-28-2023 ambulatory Beena Benítez Other [employer] Other Start: 01-28-2023 Telephone encounter Beena Benítez [facility] Start: 12-03-[address] Beena Benítez Facility: Start: 11-30-[address] Beena Benítez Facility: Start: 11-30-2022 Patient encounter procedure Beena Benítez Work Phone: [facility] 250 DO Work Phone: Start: 11-23-2022 Office outpatient ne w 45 minutes Beena Benítez Work Phone: [facility] 250 DO Work Phone: Start: 11-23-[address] Margret Newman ty: Start: 10-27-2022 End: 10-28-[address] DOCTOR HOLDEN Facility:[facility]1 Start: 10-12-2022 Telephone encounter Beena echavarria Work Phone: [facility] 250 DO Work Phone: Start: 10-05-2022 Office outpatient vi sit 25 minutes Beena Benítez Work Phone: [facility] 250 DO Work Phone: Start: 10-05-[address] Margret Newman ty: Start: 09-22-2022 Patient encounter procedure Beena Benítez Work Phone: [facility] 250 DO Work Phone: Start: 09-17-2022 Chart Update Beena Benítez Work Phone: [facility] 250 DO Work Phone: Start: 09-17-2022 End: 09-17-2022 ambulatory Beena Benítez Other [facility] [employer] Other Start: 09-17-2022 Telephone encounter Beena Benítez [facility] Start: 09-10-[address] Beena Benítez Facility:[id number] Start: 09-08-2022 End: 09-09-2022 Pre-admission assessment Kushal Page [facility] Start: 08-17-2022 Office outpatient vi sit 25 minutes Beena Benítez Work Phone: [facility] 250 DO Work Phone: Start: 08-17-[address] Margret Newman ty: Start: 07-20-2022 End: 07-21-[address] DOCTOR HOLDEN Facility: Start: 07-06-2022 Office outpatient vi sit 25 minutes Beena Benítez Work Phone: [facility] 250 DO Work Phone: Start: 07-06-[address] Margret Newman ty: Start: 06-23-2022 End: 06-23-2022 ambulatory Beena Benítez Other [employer] Other Start: 06-23-2022 Telephone encounter Beena Benítez [facility] Start: 06-15-2022 Office outpatient vi sit 25 minutes Beena Benítez [facility] Start: 06-15-2022 End: 06-16-[address] BEENA BENÍTEZ [employer] Other Start: 06-02-2022 End: 06-02-2022 ambulatory Beena Benítez Other [employer] Other Start: 06-02-2022 Telephone encounter Beena Benítez [facility] Start: 03-09-2022 End: 03-10-2022 ambulatory XXXX NONE Facility:[facility] Start: 03-09-2022 End: 03-09-2022 Patient encounter procedure Kushal Page [facility] Start: 02-05-2022 End: 02-05-2022 ambulatory MD Kushal Page Facility:[facility] Start: 02-05-2022 End: 02-05-2022 Admission to same day surgery center Kushal Page [facility] Start: 01-28-2022 End: 01-29-2022 ambulatory MD Kushal Page Facility:[facility] Start: 01-28-2022 End: 01-28-2022 Patient encounter procedure Kushal Page [facility] Start: 01-23-2022 End: 01-24-2022 ambulatory MD Kushal Page Facility:[facility] Start: 01-23-2022 End: 01-23-2022 Patient encounter procedure Kushal Page [facility] Start: 01-21-2022 End: 04-23-2022 ambulatory MD Kushal Page Facility:[facility] Start: 01-21-2022 End: 04-22-2022 Recurring Kushal Page [facility] Start: 01-19-2022 Rx Renewal Beena Benítez Work Phone: [facility] 250 DO Work Phone: Start: 01-19-2022 End: 01-20-2022 ambulatory NONE LISTED REQUEST Facility: Start: 01-01-2022 Chart Update Beena Benítez Work Phone: [facility] 320 DO Work Phone: Start: 12-31-2021 Patient encounter procedure Beena Benítez Work Phone: [facility] 320 DO Work Phone: Start: 12-31-2021 Current tobacco non- user cad cap copd pv dm Beena Benítez Work Phone: [facility] 320 DO Work Phone: Start: 12-05-2021 End: 12-06-2021 ambulatory MD Kushal Page Facility:[facility] Start: 12-05-2021 End: 12-05-2021 Patient encounter procedure Kushal Page [facility] Start: 07-07-2021 Rx Renewal Beena Benítez Work Phone: [facility] 250 DO Work Phone: Start: 04-23-2021 Office outpatient vi sit 25 minutes Beena Benítez Work Phone: [facility] 320 DO Work Phone: Start: 10-07-2020 End: 10-09-2020 Evaluation and management of inpatient Adam Leo [place] 8 Cardio ICU 816 01 Patient encounter status Beena Benítez Work Phone: [facility] 320 DO Work Phone: Procedures Date Procedure Procedure Detail Performing Clinician Start: 01-17-2024 Ecg routine ecg w/le ast 12 lds w/i&r Margret Stevens MD Work Phone: Start: 10-04-2023 ECG 12-LEAD MARGRET PIERRE Start: [...] MARGRET STEVENS Start: 07-19-2023 Lipid panel MARGRET MOH GABBY Start: 07-19-2023 ECG 12-LEAD MARGRET PIERRE Start: [...] Work Phone: Herniated structure (morphologic abnormality) Kushal Camilo Comment on above: 2009 Total colonoscopy Beena echavarria Work Phone: Plan of Treatment Date Care Activity Detail Author Start: 03-30-2031 DTaP/Tdap/Td Vaccines (2 - Tdap) DTaP/Tdap/Td Vaccines (2 - Tdap) [facility] Start: 11-09-2024 Echocardiography Echocardiogram [facility] Start: 07-17-2024 End: 07-17-2024 Patient encounter procedure [facility] Start: 06-19-2024 End: 06-19-2024 Patient encounter procedure 06/19/2024 10:[address] [facility] [id number] [place] [address] [facility] Start: 06-18-2024 End: 07-19-2024 CBC panel - Blood by Automated count CBC Lab Routine Paroxysmal atrial fibrillation (CMS/HCC) Hypercoagulable state due to paroxysmal atrial fibrillation (CMS/HCC) Expected: 06/18/2024 (Approximate), Expires: 07/19/2024 [facility] Work Phone: Comment on above: Expected: 06/18/2024 (Approximate), Expi res: 07/19/2024 Start: 06-18-2024 End: 07-19-2024 Comprehensive metabolic 2000 panel - Serum or Plasma Comprehensive Metabolic Panel Lab Routine Paroxysmal atrial fibrillation (CMS/HCC) Coronary artery disease involving hoonah coronary artery 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 Ischemic cardiomyopathy Chronic systolic congestive heart failure, NYHA class 2 (CMS/HCC) Expected: 06/18/2024 (Approximate), Expires: 07/19/2024 [facility] Work Phone: Comment on above: Expected: 06/18/2024 (Approximate), Expi res: 07/19/2024 Start: 06-18-2024 End: 07-19-2024 Lipid 1996 panel - Serum or Plasma Lipid Panel Lab Routine Coronary artery disease involving hoonah coronary artery 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 Mixed hyperlipidemia Expected: 06/18/2024 (Approximate), Expires: 07/19/2024 [facility] Work Phone: Comment on above: Expected: 06/18/2024 (Approximate), Expi res: 07/19/2024 Start: 01-30-2024 Influenza vaccination [facility] Start: 01-17-2024 End: 01-17-2024 Patient encounter procedure 01/17/2024 3:30 PM EDT Office Visit [facility] [address] [facility] [address] [place] [address] Margret Stevens MD [address] [place] [address] [facility] Start: 01-17-2024 End: 01-16-2025 Basic metabolic 2000 panel - Serum or Plasma Basic Metabolic Panel Lab Routine Ischemic cardiomyopathy Expected: 01/17/2024 (Approximate), Expires: 01/16/2025 [facility] Work Phone: Comment on above: Expected: 01/17/2024 (Approximate), Expi res: 01/16/2025 Start: 01-17-2024 End: 01-16-2025 CBC panel - Blood by Automated count CBC Lab Routine Ischemic cardiomyopathy Expected: 01/17/2024 (Approximate), Expires: 01/16/2025 [facility] Work Phone: Comment on above: Expected: 01/17/2024 (Approximate), Expi res: 01/16/2025 Start: 01-17-2024 End: 01-16-2025 Comprehensive metabolic 2000 panel - Serum or Plasma Comprehensive Metabolic Panel Lab Routine Ischemic cardiomyopathy Expected: 01/17/2024 (Approximate), Expires: 01/16/2025 [facility] Work Phone: Comment on above: Expected: 01/17/2024 (Approximate), Expi res: 01/16/2025 Start: 01-17-2024 End: 01-16-2025 Lipid 1996 panel - Serum or Plasma Lipid Panel Lab Routine Lipid screening Expected: 01/17/2024 (Approximate), Expires: 01/16/2025 [facility] Work Phone: Comment on above: Expected: 01/17/2024 (Approximate), Expi res: 01/16/2025 Start: 12-15-2023 End: 12-15-2023 Patient encounter procedure 12/15/2023 3:00 PM EDT Office Visit [facility] [address] [facility] [address] [place] [id number] Leonel Billy, [employer] [address] [facility] [address] [place] [address] [facility] Start: 12-15-2023 End: 12-14-2024 Basic metabolic 2000 panel - Serum or Plasma Basic Metabolic Panel Lab Routine SOB (shortness of breath) Expected: 12/15/2023 (Approximate), Expires: 12/14/2024 [facility] Work Phone: Comment on above: Expected: 12/15/2023 (Approximate), Expi res: 12/14/2024 Start: 12-15-2023 End: 12-14-2024 Natriuretic peptide B [Mass/volume] in Blood B-Type Natriuretic Peptide Lab Routine SOB (shortness of breath) Expected: 12/15/2023 (Approximate), Expires: 12/14/2024 [facility] Work Phone: Comment on above: Expected: 12/15/2023 (Approximate), Expi res: 12/14/2024 Start: 11-15-2023 End: 11-15-2023 Patient encounter procedure 11/15/2023 3:30 PM EDT Office Visit [facility] [address] [facility] [address] [place] [address] Margret Stevens MD [address] [place] [address] [address] [place], [place] [id number] [facility] Start: 11-10-2023 End: 11-10-2023 Patient encounter procedure 11/10/2023 10:45 AM EDT Appointment [id number] [facility] [address] [place] [address] [facility] Start: 10-11-2023 End: 10-03-2024 Basic metabolic 2000 panel - Serum or Plasma Basic Metabolic Panel Lab Routine SOB (shortness of breath) Edema, unspecified type Chronic systolic congestive heart failure, NYHA class 2 (Multi) Ischemic cardiomyopathy Medication course changed Expected: 10/11/2023 (Approximate), Expires: 10/03/2024 [facility] Work Phone: Comment on above: Expected: 10/11/2023 (Approximate), Expi res: 10/03/2024 Start: 10-04-2023 End: 10-03-2025 [facility] Transthoracic Transthoracic Echo Complete Echocardiography Routine SOB (shortness of breath) Chronic systolic congestive heart failure, NYHA class 2 (Multi) Ischemic cardiomyopathy Expected: 10/04/2023 (Approximate), Expires: 10/03/2025 [facility] Service Area Work Phone: Comment on above: Expected: 10/04/2023 (Approximate), Expi res: 10/03/2025 Start: 08-02-2023 End: 07-19-2024 Basic metabolic 2000 panel - Serum or Plasma Basic Metabolic Panel Lab Routine Ischemic cardiomyopathy Chronic systolic congestive heart failure, NYHA class 2 (CMS/HCC) Expected: 08/02/2023 (Approximate), Expires: 07/19/2024 [facility] Service Area Work Phone: Comment on above: Expected: 08/02/2023 (Approximate), Expi res: 07/19/2024 Start: 07-19-2023 End: 07-19-2025 Heart Transthoracic Transthoracic Echo Complete Echocardiography Routine Ischemic cardiomyopathy Chronic systolic congestive heart failure, NYHA class 2 (CMS/HCC) Expected: 07/19/2023 (Approximate), Expires: 07/19/2025 [facility] Work Phone: Comment on above: Expected: 07/19/2023 (Approximate), Expi res: 07/19/2025 Start: 02-15-2023 FUV, Provider: Margret Stevens, Status: Pen, Time: 12:30 PM FUV, Provider: Margret Stevens, Status: Pen, Time: 12:30 PM -[facility] 250 DO Work Phone: Start: 01-29-2023 COVID-19 Vaccine ( season) COVID-19 Vaccine ( season) [facility] Start: 01-29-2023 Influenza vaccination Influenza Vaccine (#1) [facility] Start: 12-02-2022 HOLTER 48, Provider: VIN IZAGUIRRE [employer]TIQUE REFINISHER 1,[id number], Status: Pen, Time: 9:00 AM HOLTER 48, Provider: VIN IZAGUIRRE ANTIQUE REFINISHER 1,[id number], Status: Pen, Time: 9:00 AM -[facility] 250 DO Work Phone: Start: 11-23-2022 FUV, Provider: Margret Stevens, Status: Pen, Time: 3:00 PM FUV, Provider: Margret Stevens, Status: Pen, Time: 3:00 PM -[facility] 250 DO Work Phone: Start: 10-05-2022 FUV, Provider: Margret Stevens, Status: Pen, Time: 2:30 PM FUV, Provider: Margret Stevens, Status: Pen, Time: 2:30 PM -[facility] 250 DO Work Phone: Start: 09-10-2022 STRESS HERSON, Provider: [place] HHVI NUCLEAR 01,[id number], Status: Pen, Time: 9:00 AM STRESS HERSON, Provider: [place] HHVI NUCLEAR 01,[id number], Status: Pen, Time: 9:00 AM -[facility] 250 DO Work Phone: Start: 08-17-2022 FUV, Provider: Margret Stevens, Status: Pen, Time: 3:15 PM FUV, Provider: Margret Stevens, Status: Pen, Time: 3:15 PM -[facility] 250 DO Work Phone: Start: 10-29-2021 FUV, Provider: Adam Leo, Status: Pen, Time: 3:45 PM FUV, Provider: Adam Leo, Status: Pen, Time: 3:45 PM [facility] 320 DO Work Phone: Start: 10-09-2021 Creatinine measurement Creatinine Level [facility] Start: 10-09-2021 Diabetes mellitus screening Diabetes Screening [facility] Start: 10-09-2021 Potassium measurement Potassium Level [facility] Start: 10-09-2020 No post-op complications No post-op complications Date: 09-Oct-2020 [facility] [facility] Start: 10-09-2020 Prolonged QT interval Prolonged QT interval Date: 09-Oct-2020 [facility] Start: 2020 Arrhythmia Arrhythmia Date: 08-Oct-2020 [facility] Start: 10-07-2020 End: 2021 [facility] Comment on above: IF patient [...] (1 - 1-dose 60+ series) [facility] Start: 10-09-2007 Zoster Vaccines (1 of 2) Zoster Vaccines (1 of 2) [facility] Start: 10-09-1975 Hepatitis C screening Hepatitis C Screening [facility] Start: 10-09-1963 Pneumococcal Vaccine: 65+ Years (1 - PCV) Pneumococcal Vaccine: 65+ Years (1 - PCV) [facility] Start: 10-09-1963 Pneumococcal Vaccine: 65+ Years (1 of 2 - PCV) Pneumococcal Vaccine: 65+ Years (1 of 2 - PCV) [facility] Start: 1958 MMR Vaccines (1 of 1 - Standard series) MMR Vaccines (1 of 1 - Standard series) [facility] Start: 1957 Annual wellness visit Medicare Initial Physical (IPPE) [facility] Start: 1957 Echocardiography Echocardiogram [facility] Start: 1957 Lipid panel Lipid Panel [facility] Start: 1957 Medicare Annual Wellness Visit Medicare Annual Wellness Visit (AWV) [facility] Start: 1957 Screening for malignant neoplasm of colon [facility] End: 11-10-2023 [facility] Work Phone: Comment on above: Once for 1 Occurrences starting 11/10/19 24 until 11/10/2023 Immunizations Immunization Date Immunization Notes Care Provider Nikole turner 03-30-2021 diphtheria, tetanus toxoids and pertussis vaccine Beena Benítez [facility] Work Phone: 09-30-2020 Pfizer-BioNTech COVI D-19 Vacc 30 MCG/0.3ML Intramuscular Suspension Beena Benítez Work Phone: [facility] DO Work Phone: 09-10-2020 Pfizer-BioNTech COVI D-19 Vacc 30 MCG/0.3ML Intramuscular Suspension Beena Benítez Work Phone: -[facility] DO Work Phone: Payers Date Payer Category Payer Private Health Insurance 2021 Medicare AETNA MEDICARE A ETNA MEDICARE VALUE PLAN [id number] 2021-Present [address] [place] [address] [id number] 1957 Medicare [id number] 1957 Unknown [id number] 2.16.840.1.516528.3.579.2.1 068 1957 Unknown [id number] 2.16.840.1.226162.3.579.2.7 1957 Unknown [id number] 2.16.840.1.286983.3.579.2.7 27 1957 Unknown [id number] 2.16.840.1.694200.3.579.2.7 1957 Unknown [id number] 2.16.840.1.749309.3.579.2.7 27 1957 Unknown [id number] 2.16.840.1.291903.3.579.2.7 1957 Unknown [id number] 2.16.840.1.811733.3.579.2.7 1957 Unknown [id number] 2.16.840.1.423967.3.579.2.5 1957 Unknown [id number] 2.16.840.1.382950.3.579.2.5 1957 Unknown [id number] 2.16.840.1.909773.3.579.2.5 1957 Unknown [id number] 2.16.840.1.307314.3.579.2.5 93 1957 Unknown [id number] 2.16.840.1.283905.3.579.2.3 56 1957 Unknown [id number] 2.16.840.1.303086.3.579.2.3 56 1957 Unknown [id number] 2.16.840.1.206852.3.579.2.3 56 1957 Unknown [id number] 2.16.840.1.316475.3.579.2.3 56 1957 Unknown [id number] 2.16.840.1.509945.3.579.2.3 56 1957 Unknown [id number] 2.16.840.1.216149.3.579.2.3 56 1957 Unknown [id number] 2.16.840.1.512591.3.579.2.3 56 1957 Unknown [id number] 2.16.840.1.082211.3.579.2.1 246 1957 Unknown [id number] 2.16.840.1.605656.3.579.2.1 244 1957 Unknown [id number] 2.16.840.1.579899.3.579.2.1 244 1957 Unknown [id number] 2.16.840.1.247497.3.579.2.1 244 1957 Unknown [id number] 2.16.840.1.174081.3.579.2.1 244 Unknown Social History Date Type Detail Facility [facility] Tobacco smoking consumption unknown [facility] Start: 07-19-2023 End: 01-17-2024 Never smoker Never smoker [place] [address] DO Work Phone: Comment on above: 2-3 cups of tea dudley y, 1 soda; Start: 05-30-2020 End: 07-19-2023 Tobacco smoking status Never smoked tobacco (finding) [facility] Start: 07-19-2023 End: 01-17-2024 Sex Assigned At Male [facility] Start: 07-19-2023 Tobacco use and exposure Smokeless tobacco non-user [facility] Work Phone: Start: 07-19-2023 End: 01-17-2024 Alcohol intake Current drinker of alcohol (finding) [facility] Work Phone: Start: 07-19-2023 Alcohol Comment occasional beer [facility] Work Phone: Start: 1957 Sex Assigned At Not on file [facility] Work Phone: Start: 07-09-2023 End: 01-17-2024 Exposure to SARS-CoV-2 (event) Not sure [facility] Functional Status Date Assessment Result Facility 03-09-2022 Functional Status N/A [facility] 02-05-2022 Functional Status Yes [facility] 01-23-2022 Functional Status N/A [facility] 12-05-2021 Functional Status N/A [facility] Functional observable [facility] Mental Status Date Assessment Result Facility 10-09-2020 Cognitive functions [id number] [facility] Clinical Notes 10-07-2020 to 01-17-2024 Margret Stevens MD - 01/17/2024 3:30 PM EDTPatient InstructionsLeonel Billy APRN-ROGERIO - 12/15/2023 3:00 PM EDTPatient InstructionsMargret Stevens MD - 10/04/2023 1:45 PM EDTPatient Instructions Note Date & Type Note Facility 01-17-2024 History of Present illness Narrative Most recent office visit September 2023. At that time echocardiogram and blood work ordered. At prior visit Entresto dose was maximized. Dose of Lasix to 20 mg p.o. twice daily and added spironolactone 25 mg daily at last visit. Subjective : Accompanied by to the office. Interval review of systems is negative for chest discomfort pressure tightness heaviness palpitations lightheadedness orthopnea paroxysmal nocturnal dyspnea dependent edema or claudication TIA or CVA type symptoms or bleeding diathesis Lost 8 pounds since starting Ozempic which is at the lowest dose Reports compliance with CPAP therapy History so Far : 1. Persistent atrial [...] per 2D echocardiogram dated June 07, 2020, [place] [employer] class II, stage B heart failure. 10. Gouty arthritis. Patient remains on allopurinol, no recent recurrence. 11. Abnormal perfusion imaging showing an LV ejection fraction in the 20s, with subsequent cardiac catheterization showing LV ejection fraction of 45%, this was done at [facility] and that particular Catheterization did not [...] terminated. Only exercised for 3 minutes per Ebnja protocol. There was also blunting of blood pressure response. This is consistent with chronotropic blunting. 13. [id number]-UEUi score is 6 14.48-hour Holter monitor-minimum heart [...] were reported. Activity log was not provided 15. Echocardiogram October 2023-LVEF 45% global hypokinesis mildly dilated left atrium normal RV size and systolic function trace to mild mitral regurgitation mild tricuspid regurgitation left atrial diameter 4.5 cm LV end-systolic dimension 4.3 cm moderate to severe concentric left ventricular hypertrophy impaired diastolic filling. PA pressure not estimated because there was no appreciable tricuspid regurgitation. Objective Wt Readings from Last 3 Encounters: 01/17/24 (!) 163 kg (360 lb) 12/15/23 (!) 163 kg (359 lb) 11/10/23 (!) 167 kg (368 lb) Vitals: 01/17/24 1533 BP: 144/84 BP Location: Left arm Patient Position: Sitting Pulse: 71 Weight: (!) 163 kg (360 lb) Height: 1.778 m (5' 10 ) [...] Instructions allopurinol (ZYLOPRIM) 300 mg, oral, Daily apple cider vinegar 600 mg capsule 1 capsule, oral, 2 times daily aspirin 81 mg chewable tablet 1 tablet, oral, Daily colchicine 0.6 mg, oral, As needed, As needed DULoxetine (CYMBALTA) 60 mg, oral, Daily furosemide (LASIX) 20 mg, oral, Daily magnesium oxide (MAG-OX) 400 mg, oral, Daily metFORMIN XR (GLUCOPHAGE-XR) 750 mg, oral, Daily modafinil (PROVIGIL) 100 mg, oral, Daily multivitamin tablet 1 tablet, oral, Daily omeprazole (PRILOSEC) 20 mg, oral, As needed [START ON 01/23/2024] Ozempic 0.5 mg, subcutaneous, Once Weekly [START ON 01/23/2024] Ozempic 1 mg, subcutaneous, Once Weekly rivaroxaban (Xarelto) 20 mg tablet TAKE 1 TABLET BY MOUTH ONCE DAILY WITH BIGGEST MEAL OF THE DAY rosuvastatin (CRESTOR) 20 mg, oral, Daily sacubitriL-valsartan (Entresto) 97-103 mg tablet 1 tablet, oral, 2 times daily sotalol (BETAPACE) 80 mg, oral, 2 times daily spironolactone (ALDACTONE) 25 mg, oral, Daily No Known Allergies LABS: Lab Results Component Value Date WBC 6.7 10/07/2020 HGB 14.6 10/07/2020 HCT 43.3 10/07/2020 PLT 193 10/07/2020 ALT 31 10/07/2020 AST 23 10/07/2020 NA 139 10/09/2020 K 4.2 10/09/2020 CL 102 10/09/2020 CREATININE 0.97 10/09/2020 BUN 16 10/09/2020 CO2 28 10/09/2020 TSH 1.65 12/31/2021 INR 1.1 10/07/2020 Basic metabolic profile September 2023-sodium 137 potassium 4.5 GFR greater than 60 Patient Active Problem List Diagnosis Date Noted Never smoked cigarettes 01/17/2024 BMI 50.0-59.9, adult (Multi) 12/15/2023 Lower leg edema 10/04/2023 Sleep apnea treated [...] (shortness of breath) Follow Up In Cardiology 2. Coronary artery disease involving hoonah coronary artery 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 Follow Up In Cardiology Ozempic 0.25 mg or 0.5 mg (2 mg/3 mL) pen injector semaglutide (Ozempic) 1 mg/dose (2 mg/1.5 mL) pen injector 3. High risk medication use 4. Medication course changed 5. Paroxysmal atrial fibrillation (Multi) ECG 12 Lead Follow Up In Cardiology 6. Ischemic cardiomyopathy Basic Metabolic Panel CBC Comprehensive Metabolic Panel Basic Metabolic Panel CBC Comprehensive Metabolic Panel 7. Chronic systolic congestive heart failure, NYHA class 2 (Multi) 8. BMI 50.0-59.9, adult (Multi) 9. Lower leg edema 10. Sleep apnea treated with continuous positive airway pressure (CPAP) 11. Lipid screening Lipid Panel Lipid Panel Patient with morbid obesity, diabetes, atherosclerotic hoonah vessel coronary artery disease, hypertensive cardiomyopathy with diastolic heart failure, obstructive sleep apnea on CPAP therapy, his lower extremity edema has resolved with up titration of diuretics. LVEF unchanged compared to previous echo report. No clinical atrial fibrillation. Remains on high risk medications. EKG was reviewed. We will discontinue Ranexa in an attempt to consolidate medications does not report angina pectoris On maximum dose of Entresto Increase Ozempic to 0.5 mg subcu every week for 4 weeks, and then 1 mg subcu every week. Follow up : 6 months Provider Attestation - Scribe documentation All medical record entries made by the Scribe were at my direction and personally dictated by me. I have reviewed the chart and agree that the record accurately reflects my personal performance of the history, physical exam, discussion and plan. documented in this encounter [facility] Work Phone: 01-17-2024 Instructions Marni Grier LPN - 01/17/2024 3:30 PM EDT Please bring all medicines, vitamins, and herbal supplements with you when you come to the office. Prescriptions will not be filled unless you are compliant with your follow up appointments or have a follow up appointment scheduled as per instruction of your physician. Refills should be requested at the time of your visit. BMI was above normal measurement. Current weight: (!) 163 kg (360 lb) Weight change since last visit (-) denotes wt loss 1 lbs Weight loss needed to achieve BMI 25: 186.1 Lbs Weight loss needed to achieve BMI 30: 151.4 Lbs Provided instructions on dietary changes Provided instructions on exercise. documented in this encounter [facility] Work Phone: 12-15-2023 History of Present illness Narrative Chief Complaint I do not know if it helped Reason for Visit 1 month follow-up Patient presents to the office today for outpatient follow-up for shortness of breath, medication changes and cardiovascular testing. Last evaluated in clinic by Dr. Stevens September 2023. At that time, she added spironolactone and increase Lasix to 20 mg twice daily. The patient is an extremely difficult historian and presents today off spironolactone and only taking furosemide 20 mg daily, does not have potassium supplements. He thinks maybe he took spironolactone for 1 month but could not tell any difference A repeat echocardiogram showed LVEF 45% with global hypokinesis consistent with prior. LVH moderate/severe. Presents today ambulatory with steady gait. Accompanied by patient Patient denies any hospitalizations or significant changes to interval medical history since last office follow-up. History of Present Illness Patient is a pleasant 68-year-old gentleman who is an extremely difficult historian. He cannot tell me if his shortness of breath or edema has improved. The reports that he feels the same . His weight is down 9 pounds but relates this to starting Ozempic. He was only compliant with addition of twice daily Lasix and spironolactone for perhaps 1 month. He reports that his leg edema kind of comes and goes seems mostly to be dependent in nature. He remains compliant with his CPAP mask. He denies orthopnea or PND. He mows the lawn with a riding mower. Cares for his dog. Has no stairs at home. Denied any complaints coming in from the parking lot because I walked really slow . He reports his prior angina symptom was dyspnea on exertion and feeling like I am now . Patient reports that overall has no complaint(s) of chest pain, chest pressure/discomfort, exertional chest pressure/discomfort, fatigue, irregular heart beat, and lower extremity edema EKG in office maintaining sinus bradycardia on Betapace 80 mg twice daily, QTc 428. Creatinine 0.8. CHADS VASc 6 chronically anticoagulated full dose Xarelto with creatinine clearance greater than 60. Denies bleeding diatheses. When asked about recurrent palpitations he simply replies I do not know . Review of Systems Cardiovascular: Negative for chest pain, dyspnea on exertion, irregular heartbeat, leg swelling, near-syncope, orthopnea, palpitations, paroxysmal nocturnal dyspnea and syncope. Respiratory: Positive for shortness of breath. Visit Vitals BP 134/74 (BP Location: Right arm, Patient Position: Sitting) Pulse 71 Ht 1.778 m (5' 10 ) Wt (!) 163 kg (359 lb) BMI 51.51 kg/m Smoking Status Never BSA 2.84 m Physical Exam Vitals and nursing note reviewed. Constitutional: Appearance: Normal appearance. Cardiovascular: Rate and Rhythm: Normal rate and regular rhythm. Heart sounds: Normal heart sounds. Pulmonary: Effort: Pulmonary effort is normal. Breath sounds: Normal breath sounds. Musculoskeletal: Cervical back: Full passive range of motion without pain. Right lower leg: No edema. Left lower leg: No edema. Skin: General: Skin is cool. Neurological: Mental Status: He is alert and oriented to person, place, and time. Psychiatric: Attention and Perception: Attention normal. Mood and Affect: Mood normal. Behavior: Behavior is cooperative. No Known Allergies Current Outpatient Medications Medication Instructions allopurinol (ZYLOPRIM) 300 mg, oral, Daily apple cider vinegar 600 mg capsule 1 capsule, oral, 2 times daily aspirin 81 mg chewable tablet 1 tablet, oral, Daily colchicine 0.6 mg, oral, As needed, As needed DULoxetine (CYMBALTA) 60 mg, oral, Daily furosemide (LASIX) 20 mg, oral, Daily magnesium oxide (Mag-Ox) 400 mg (241.3 mg magnesium) tablet 1 tablet, oral, Daily metFORMIN XR (GLUCOPHAGE-XR) 750 mg, oral, Daily modafinil (PROVIGIL) 100 mg, oral, Daily multivitamin tablet 1 tablet, oral, Daily omeprazole (PRILOSEC) 20 mg, oral, As needed Ozempic 0.25 mg or 0.5 mg (2 mg/3 mL) pen injector Once Weekly ranolazine (RANEXA) 500 mg, oral, 2 times daily, Do not crush, chew, or split. rivaroxaban (Xarelto) 20 mg tablet TAKE 1 TABLET BY MOUTH ONCE DAILY WITH BIGGEST MEAL OF THE DAY rosuvastatin (CRESTOR) 20 mg, oral, Daily sacubitriL-valsartan (Entresto) 97-103 mg tablet 1 tablet, oral, 2 times daily sotalol (BETAPACE) 80 mg, oral, 2 times daily spironolactone (ALDACTONE) 25 mg, oral, Daily Assessment: A pleasant 68-year-old presents remains a very difficult historian with vague complaints of continued dyspnea on exertion. Echo shows LVEF 45% with global hypokinesis -I have instructed him to resume dose of spironolactone and continue Lasix 20 mg daily. Most recent potassium 4.5, creatinine 0.8. He does have a January 2022 cardiac cath with nonobstructive coronary artery disease, last PCI to RCA in 2019. September 2023 echo LVH moderate/severe -at times reports prior angina was dyspnea on exertion, question possible element of microvascular disease and will trial Ranexa 500 mg twice daily. Question of element of deconditioning and sedentary lifestyle. Seems reluctant to attend cardiac rehab but likely would be very beneficial. Plan: Through informed decision making process incorporating patients unique circumstances, the following treatment plan will be initiated: 1. Prescription drug management of cardiovascular medication for efficacy, adherence to treatment, side effect assessment and polypharmacy. Current treatment clinically warranted and to continue with following modifications: - Resume spironolactone 25mg daily - No potassium (you are not taking) - Continue lasix 20mg daily as you have been doing - Start Ranexa 500mg twice daily 2. Labs in one week (chem6 BNP) 3. Return for follow-up; in the interim, contact the office if new symptoms arise. Dr Stevens one month Leonel Billy MSN, [employer], PMHNP-[facility] Please excuse any errors in grammar or translation related to this dictation. Voice recognition software was utilized to prepare this document. documented in this encounter [facility] Work Phone: 12-15-2023 Instructions TAVO Clark - 12/15/2023 3:00 PM EDT Please bring all medicines, vitamins, and herbal supplements with you when you come to the office. Prescriptions will not be filled unless you are compliant with your follow up appointments or have a follow up appointment scheduled as per instruction of your physician. Refills should be requested at the time of your visit. PLAN: Through informed decision making process incorporating patients unique circumstances, the following treatment plan will be initiated: 1. Prescription drug management of cardiovascular medication for efficacy, adherence to treatment, side effect assessment and polypharmacy. Current treatment clinically warranted and to continue with following modifications: - Resume spironolactone 25mg daily - No potassium (you are not taking) - Continue lasix 20mg daily as you have been doing - Start Ranexa 500mg twice daily 2. Labs in one week (chem6 BNP) 3. Return for follow-up; in the interim, contact the office if new symptoms arise. Dr Stevens one month documented in this encounter [facility] Work Phone: 10-04-2023 Note Normal sinus rhythm poor R wave progression normal intervals no change compared to previous EKG [facility] 10-04-2023 History of Present illness [...] per 2D echocardiogram dated June 07, 2020, [place] [employer] class II, stage B heart failure. 10. Gouty arthritis. Patient remains on allopurinol, no recent recurrence. 11. Abnormal perfusion imaging showing an LV ejection fraction in the 20s, with subsequent cardiac catheterization showing LV ejection fraction of 45%, this was done at [facility] and that particular Catheterization did not [...] This is consistent with chronotropic blunting. 13. [id number] score is 6 14.48-hour Holter monitor-minimum heart [...] Metabolic Panel 5. Coronary artery disease involving hoonah coronary artery 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 6. Paroxysmal atrial [...] plan. documented in this encounter [facility] Work Phone: 10-04-2023 Instructions Judy Guillaume CMA [...] today documented in this encounter [facility] Work Phone: 07-19-2023 History of Present illness [...] per 2D echocardiogram dated June 07, 2020, [place] [employer] class II, stage B heart failure. 10. Gouty arthritis. Patient remains on allopurinol, no recent recurrence. 11. Abnormal perfusion imaging showing an LV ejection fraction in the 20s, with subsequent cardiac catheterization showing LV ejection fraction of 45%, this was done at [facility] and that particular Catheterization did not [...] This is consistent with chronotropic blunting. 13. [id number] score is 6 14.48-hour Holter monitor-minimum heart [...] redirect to the Timeline version of the [employer] Smart[employer]. Wt Readings from Last 3 Encounters: [...] Metabolic Panel 2. Coronary artery disease involving hoonah coronary artery 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 Follow Up In [...] name below, I, Clarisa Acosta LPN , Julito attest that this documentation has been prepared under the direction and in the presence of Margret Stevens MD. documented in this encounter [facility] Work Phone: 07-19-2023 Instructions Clarisa Quintanilla LPN [...] activity. documented in this encounter [facility] Work Phone: 05-07-2023 Evaluation note Encounter Date [...] the ER for worsening symptoms or concerns [employer] Other 10-09-2023 Evaluation note* Encounter Date Diagnosis [...] as directed. Feb, Coronary artery disease involving hoonah coronary artery 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 (ICD-10 - I25.10) Continue care w NO Feb, GAYLE (obstructive sleep apnea) (ICD-10 - G47.33) Continue care w Dr. Noble. [employer] Other 05-01-2023 History of Present illness Narrative* [...] per 2D echocardiogram dated June 07, 2020, [place] [employer] class II, stage B heart failure. * 10. Gouty arthritis. Patient remains on allopurinol, no recent recurrence. * 11. Abnormal perfusion imaging showing an LV ejection fraction in the 20s, with subsequent cardiac catheterization showing LV ejection fraction of 45%, this was done at [facility] and that particular Catheterization did not [...] is consistent with chronotropic blunting. * 13. [id number] score is 6 * Laboratory data from [...] prohibitively expensive-pleaseconsider Ozempic or Rybelsus-defer to primary/endocrinology. -[facility] French DO Work Phone: 1(350) 904-477105-01-2023 History of Present illness Narrative* Patient was [...] per 2D echocardiogram dated June 07, 2020, [place] [employer] class II, stage B heart failure. * 10. Gouty arthritis. Patient remains on allopurinol, no recent recurrence. * 11. Abnormal perfusion imaging showing an LV ejection fraction in the 20s, with subsequent cardiac catheterization showing LV ejection fraction of 45%, this was done at [facility] and that particular Catheterization did not [...] is consistent with chronotropic blunting. * 13. [id number] score is 6 * Laboratory data from [...] prohibitively expensive-pleaseconsider Ozempic or Rybelsus-defer to primary/endocrinology. -[facility] DO Work Phone: [phone]) 398-773005-01-2023 History of Present illness Narrative* Patient was [...] per 2D echocardiogram dated June 07, 2020, [place] [employer] class II, stage B heart failure. * 10. Gouty arthritis. Patient remains on allopurinol, no recent recurrence. * 11. Abnormal perfusion imaging showing an LV ejection fraction in the 20s, with subsequent cardiac catheterization showing LV ejection fraction of 45%, this was done at [facility] and that particular Catheterization did not [...] is consistent with chronotropic blunting. * 13. [id number]-GCMd score is 6 * Laboratory data from [...] prohibitively expensive-pleaseconsider Ozempic or Rybelsus-defer to primary/endocrinology. -[facility] DO Work Phone: 1([phone]) 644-727604-01-2023 History of Present illness Narrative* Patient with [...] per 2D echocardiogram dated June 07, 2020, [place] [employer] class II, stage B heart failure. * 10. Gouty arthritis. Patient remains on allopurinol, no recent recurrence. * 11. Abnormal perfusion imaging showing an LV ejection fraction in the 20s, with subsequent cardiac catheterization showing LV ejection fraction of 45%, this was done at [facility] and that particular Catheterization did not [...] for his unrelenting fatigue and foggy brain. -[facility] French DO Work Phone: [phone] 247-762601-16-2023 Evaluation note* Encounter Date Diagnosis Assessment Notes Treatment Notes Treatment Clinical Notes May, Type 2 diabetes mellitus with hyperglycemia, without long-term current use of insulin (ICD-10 - E11.65) chronic problem - may increase or add med based on lab results May, Essential (primary) hypertension (ICD-10 - I10) chronic and controlled adequately at this time. May, Coronary artery disease involving hoonah coronary artery 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 (ICD-10 - I25.10) May, BMI 50.0-59.9, adult (ICD-10 - Z68.43) Pt is encouraged to lose weight, change diet, and increase exercise as tolerated. [facility] [employer] Other 09-12-2022 Note [id number] 02-05-2022 Evaluation + Plan noteExtracted [...] Scheduled Tests Laboratory* Basic Metabolic Panel 06/06/21 [facility]09-08-2022 Hospital Discharge instructions Patient Education 02/05/2022 10:35:09 CV - Cardiovascular Discharge Instructions (CUSTOM) [place], [place] CARDIOVASCULAR DISCHARGE INSTRUCTIONS Diet: Resume pre-procedure [...] hours post procedure: Actoplus MetGlucophageGlucophage XR GlucovanceAvandametFortamet Uee-mbfsfwvnkPjocunKpvi-wqrqoeioo GlumetzaJanumetMetaglip RiometGlycomet *Minimal pain, soreness and/or discomfort [...] you are interested in smoking cessation, contact [facility] at [phone], ext. [phone]. In the event you are unable to reach your physician, please call [facility] at [phone] and the pad making machine operator will assist you. Seek Immediate Medical Care for: Bleeding: Apply continuous pressure to the site and Call 911. Should the arm or leg become cold, numb, blue or white call your physician immediately. Signs of infection are redness, warmth, swelling, increased tenderness, colored drainage, fever or chills Chest pain Follow Up Care 01/27/2022 09:04:57 With:Kushal Page Address: [address] [place] [id number] [phone] Business (1) When:03/09/2022 11:15:00 [facility]09-08-2022 NoteProcedure The risk/benefits of the procedure [...] Education Routine Capillary Glucose POC Saline Lock InsertKettering Health Main CampusComment on above:Result Comment: Electronically Signed By: Camilo STARK, Kushal Moran.br\Date and Time Signed: 02/05/22 06:47 [id number] Evaluation + Plan note Future Scheduled Tests Laboratory* Basic Metabolic Panel 06/06/21 [facility]05-12-2021 Hospital Discharge instructions* Follow Up Appointment 1:Physician/Dept/Service: Kaity Zapata (VIN N.PKami)Scheduled Date/Time: [id number]: VIN Romano officePhone Number: [phone] [facility]05-10-2021 History of Present illness Narrative* 65-year-old male who is followed for persistent atrial fibrillation. He underwent antiarrhythmic drug loading with sotalol October 07, 2020 and presents to the office today for follow-up evaluation. His carvedilol was discontinued due to heart rates in the 40s post drug loading. He did require cardioversion on October 09, 2020 for muslim of sinus rhythm. * Since the last [...] per 2D echocardiogram dated June 07, 2020, [place] [employer] class II, stage B heart [...] software was utilized to prepare this document. [facility] DO Work Phone: [phone] History of Present illness Narrative* 65-year-old male who is followed for persistent atrial fibrillation. He underwent antiarrhythmic drug loading with sotalol October 07, 2020 and presents to the office today for follow-up evaluation. His carvedilol was discontinued due to heart rates in the 40s post drug loading. He did require cardioversion on October 09, 2020 for muslim of sinus rhythm. * Since the last [...] per 2D echocardiogram dated June 07, 2020, [place] [employer] class II, stage B heart [...] software was utilized to prepare this document. [facility] Work Phone: Evaluation + Plan note Future Appointments Appointment Date:01/23/2022 03:00:00 PM Scheduled Provider:Kushal Page MD Location:[facility].Cardiology Clinic Appointment Type:Cardiology Follow Up (FT) Future Scheduled Tests Laboratory* Basic Metabolic Panel 06/06/21 Radiology* NM Myocardial Spect Rest/Stress 2 Day [facility]05[facility]21 [facility] Future Appointments Appointment Date:02/05/2022 08:00:00 AM Scheduled Provider: Location[facility] Appointment Type:CV Heart Cath (FT) Future Scheduled Tests Laboratory* Basic Metabolic Panel 06/06/21 Radiology* CV Cardiovascular 02[facility]05/22 [facility] Future Appointments Appointment Date:09/08/2022 03:15:00 PM Scheduled Provider:Kushal Page MD [facility] Type:Cardiology Follow Up ([facility]) Future Scheduled Tests Laboratory* Basic Metabolic Panel 06/06/21 [facility]* Musculoskeletal: ROM intact, no joint [...] wounds, or clubbingPsychological: Appropriate mood and behavior [facility] noteNo [facility] [employer] Other Evaluation note* Diagnosis Paroxysmal atrial fibrillation (CMS/HCC) Atrial fibrillation Coronary artery disease involving hoonah coronary artery 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 Ischemic cardiomyopathy Other specified forms of chronic ischemic heart disease Chronic systolic congestive heart failure, NYHA class 2 (CMS/HCC) Hypercoagulable state due to paroxysmal atrial fibrillation (CMS/HCC) Medication course changed Mixed hyperlipidemia High risk medication use documented in this encounter [facility] Work Phone: Evaluation note* Diagnosis SOB (shortness of breath) Shortness of breath Edema, unspecified type Chronic systolic congestive heart failure, NYHA class 2 (Multi) Ischemic cardiomyopathy Other specified forms of chronic ischemic heart disease Coronary artery disease involving hoonah coronary artery 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 Paroxysmal atrial fibrillation (Multi) Atrial fibrillation Lower leg edema High risk medication use Hypercoagulable state due to paroxysmal atrial fibrillation (Multi) Unspecified atrial fibrillation (Multi) Sleep apnea treated with continuous positive airway pressure (CPAP) Mixed hyperlipidemia Medication course changed documented in this encounter [facility] Work Phone: Evaluation note* Diagnosis SOB (shortness of breath) Shortness of breath Chronic systolic congestive heart failure, NYHA class 2 (Multi) Ischemic cardiomyopathy Other specified forms of chronic ischemic heart disease documented in this encounter [facility] Work Phone: Evaluation note* Diagnosis Coronary artery disease involving hoonah coronary artery 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- Primary Ischemic cardiomyopathy Other specified forms of chronic ischemic heart disease SOB (shortness of breath) Shortness of breath Edema, unspecified type Chronic systolic congestive heart failure, NYHA class 2 (Multi) Paroxysmal atrial fibrillation (Multi) Atrial fibrillation Hypercoagulable state due to paroxysmal atrial fibrillation (Multi) Sleep apnea treated with continuous positive airway pressure (CPAP) Lower leg edema documented in this encounter [facility] Work Phone: Evaluation note* Diagnosis SOB (shortness of breath) Shortness of breath Coronary artery disease involving hoonah coronary artery 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 High risk medication use Medication course changed Paroxysmal atrial fibrillation (Multi) Atrial fibrillation Ischemic cardiomyopathy Other specified forms of chronic ischemic heart disease Chronic systolic congestive heart failure, NYHA class 2 (Multi) BMI 50.0-59.9, adult (Multi) Lower leg edema Sleep apnea treated with continuous positive airway pressure (CPAP) Lipid screening Screening for lipoid disorders documented in this encounter [facility] Work Phone: History general Narrative - Reported* Type Description Date Medical History Gout Medical History Depression Medical History HTN Medical History stroke Medical History Atrial fibrillation Medical History DM Surgical History Back surgery Surgical History Hernia Surgical History Mass removed from skin of neck Surgical History heart cath with stent placed Hospitalization History See past surgical hx Hospitalization History Stroke 05/2019 [employer] Other History of Present illness Narrative* Patient is new to this provider, he is accompanied by his who works at [employer] in the cafeteria. Prior records [...] function test, and Lexiscan stress test at [facility]. He states he has absolutely no energy and is easily fatigued, he is short of breath and he has a nonproductive cough. He denies fever or chills. He isaccompanied by his who questions whether he may change his cardiology follow-up to [facility] due to proximity to home. * Patient wishes to establish care at [facility]. Predominant complaints are unrelenting fatigue, short-term [...] per 2D echocardiogram dated June 07, 2020, [place] [employer] class II, stage B heart failure. * 10. Gouty arthritis. Patient remains on allopurinol, no recent recurrence. * 11. Abnormal perfusion imaging showing an LV ejection fraction in the 20s, with subsequent cardiac catheterization showing LV ejection fraction of 45%, this was done at [facility] and that particular Catheterization did not show any flow-limiting disease. The perfusion study was done in December 2021, cardiac catheterization from January 2022 showed nonobstructive coronary artery disease of theleft system widely patent RCA stent LVEF 45% moderately dilated left ventricular chamber dimension mildly elevated LV end-diastolic pressure. * EKG from today shows normal sinus rhythm at 64 bpm IN interval 148 ms QRS duration 106 ms [...] ALT and AST mildly elevated hemoglobin 13.4. -[facility] [employer] DO Work Phone: History of Present illness Narrative* Patient with atherosclerotic hoonah vessel coronary artery disease, multiple cardiac risk [...] per 2D echocardiogram dated June 07, 2020, [place] [employer] class II, stage B heart failure. * 10. Gouty arthritis. Patient remains on allopurinol, no recent recurrence. * 11. Abnormal perfusion imaging showing an LV ejection fraction in the 20s, with subsequent cardiac catheterization showing LV ejection fraction of 45%, this was done at [facility] and that particular Catheterization did not [...] will defer to sleep medicine * Recommendations: -[facility] DO Work Phone: History of Present illness Narrative* Patient with atherosclerotic hoonah vessel coronary artery disease, multiple cardiac risk [...] per 2D echocardiogram dated June 07, 2020, [place] [employer] class II, stage B heart failure. * 10. Gouty arthritis. Patient remains on allopurinol, no recent recurrence. * 11. Abnormal perfusion imaging showing an LV ejection fraction in the 20s, with subsequent cardiac catheterization showing LV ejection fraction of 45%, this was done at [facility] and that particular Catheterization did not [...] will defer to sleep medicine * Recommendations: [facility] Work Phone: Hospital course Narrative No data available for this section [facility] Dis[facility] instructions No data available for this section [facility] HospitalProgress note No data available for this section [facility] HospitalReason for referral (narrative)* Consultation (Routine) - Authorized Specialty Diagnoses / Procedures Referred By Contac t Referred To Contact Cardiology Diagnoses SOB (shortness of breath) Coronary artery disease involving hoonah coronary artery 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 Procedures Follow Up In Cardiology Leonel Billy APRN-CNP [address] [facility] 2, [address] [address] Margret Stevens MD [address] [place] [id number] Referral ID Status Reason Start Date Expiration Date V isits Requested Visits Authorized [id number] Authorized 12/15/2023 12/14/2024 1 1 [facility] Work Phone: Reason for referral (narrative)* Consultation (Routine) - Authorized Specialty Diagnoses / Procedures Referred By Contac t Referred To Contact Cardiology Diagnoses Paroxysmal atrial fibrillation (Multi) Procedures Follow Up In Cardiology Margret Stevens MD [address] [place] [address] [address] [place] [address] Margret Stevens MD [address] [place] [phone] Referral ID Status Reason Start Date Expiration Date V isits Requested Visits Authorized [id number] Authorized 01/17/2024 01/16/2025 1 1 * Cardiovascular (Routine) - Authorized Specialty Diagnoses / Procedures Referred By Contac t Referred To Contact Diagnoses Paroxysmal atrial fibrillation (Multi) Procedures ECG 12 Lead Margret Stevens MD [address] [facility] [address] [place] [address] Referral ID Status Reason Start Date Expiration Date V isits Requested Visits Authorized [id number] Authorized 01/17/2024 01/16/2025 1 1 [facility] Work Phone: Chief Complaint Patient is here today for [...] function test, and Lexiscan stress test at [facility]. He states he has absolutely no energy andis easily fatigued, he is short of breath and he has a nonproductive cough. He denies fever or chills. He is accompanied by his who questions whether he may change his cardiology follow-up to [facility] due to proximity to home. [...] per 2D echocardiogram dated June 07, 2020, [place] [employer] class II, stage B heart failure. * 10. Gouty arthritis. * Recommendations: * 1. Continue current medications as prescribed. * 2. I discussed with the patient that he may follow-up with a sourcer in [facility] as requested. He was instructed to notify [facility] if he requires any medical records [...] for CAD/ AFIB old Dr. Leo patient.LORENA BETH is being seen for CAD/ AFIB old Dr. Leo patient.LORENA BETH is being seen for a 6 week follow-up of.LORENA CAMPOS is being seen for a 6 week follow-up of.LORENA BETH is being seen for test results.LORENA CAMPOS is being seen for test results.LORENA BRYANNACOLBY is being seen for 6-8 week follow [...] Specialty Diagnoses / Procedures Referred By Silvina t Referred To Contact Cardiology Diagnoses SOB (shortness of breath) Chronic systolic congestive heart failure, NYHA class 2 (Multi) Ischemic cardiomyopathy Procedures Transthoracic Echo Complete IN ECHO TTHRC R-T 2D W/WOM-MODE COMPL SPEC&COLR D Margret Stevens MD [address] [facility] [address] [place] [address] Referral ID Status Reason Start Date Expiration Date Visits Requested Visits Authorized [id number] Pending Review Perform Procedure 10/04/2023 10/03/2024 1 1 Specialty Diagnoses / Procedures Referred By Silvina t Referred To Contact Diagnoses Paroxysmal atrial fibrillation (Multi) Procedures ECG 12 Lead Margret Stevens MD 254 [facility] [address] [place] [address] Referral ID Status Reason Start Date Expiration Date V isits Requested Visits Authorized [id number] Authorized 10/04/2023 10/03/2024 1 1 Specialty Diagnoses / Procedures Referred By Contac t Referred To Contact Cardiology Diagnoses Ischemic cardiomyopathy Procedures Follow Up In Cardiology Margret Stevens MD [address] [place] [address] Margret Stevens MD [address] [place] [address] Referral ID Status Reason Start Date Expiration Date V isits Requested Visits Authorized [id number] Authorized 10/04/2023 10/03/2024 1 1 Specialty Diagnoses / Procedures Referred By Contac t Referred To Contact Cardiology Diagnoses Ischemic cardiomyopathy Chronic systolic congestive heart failure, NYHA class 2 (CMS/HCC) Procedures Transthoracic Echo Complete IN ECHO TTHRC R-T 2D W/WOM-MODE COMPL SPEC&COLR D Margret Stevens MD [address] [facility] [address] [place] [address] Referral ID Status Reason Start Date Expiration Date Visits Requested Visits Authorized [id number] Pending Review Perform Procedure 07/19/2023 07/18/2024 1 1 Specialty Diagnoses / Procedures Referred By Contac t Referred To Contact Diagnoses Paroxysmal atrial fibrillation (CMS/HCC) Procedures ECG 12 Lead Margret Stevens MD [address] [facility] [address] [place] [address] Referral ID Status Reason Start Date Expiration Date V isits Requested Visits Authorized [id number] Authorized 07/19/2023 07/18/2024 1 1 Specialty Diagnoses / Procedures Referred By Contac t Referred To Contact Cardiology Diagnoses Paroxysmal atrial fibrillation (CMS/HCC) Coronary artery disease involving hoonah coronary artery 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 Ischemic cardiomyopathy Procedures Follow Up In Cardiology Margret Stevens MD [address] [facility] [address] [place] [address] Margret Stevens MD [address] [place] [address] Referral ID Status Reason Start Date Expiration Date V isits Requested Visits Authorized [id number] Authorized 07/19/2023 07/18/2024 1 1 Reason 07/06/22 Carla office, scanning recent documents we have from [facility], but we do not have all of them Diagnosis 1 Coronary artery dise ase involving hoonah coronary artery 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 (I25.10) Referral Organization [facility] Felisa martines Referring Provider First Name Beena Referring Provider Last Name Jeyson Referring Provider Specialty Family [facility] Referred Organization [facility] Referred Provider Albaro Au Referred Address [address] [facility], [place],[address] Referred Provider Specialty Internal Med icine Referral Priority Routine Referral Appointment Date 2022-07-06 General Notes Gerri Davis 11:54:25 AM >received today, ins card attached along with previous [facility] note. referral faxed [...] content) DATE CREATED AUTHOR 07/24/2021 [facility] DATE CREATED AUTHOR AUTHOR'S ORGANIZ ATION 09/12/2022 [facility] DATE CREATED AUTHOR AUTHOR'S ORGANIZ ATION 09/26/2022 [facility] DATE CREATED AUTHOR AUTHOR'S ORGANIZ ATION 11/06/2022 [facility] DATE CREATED AUTHOR AUTHOR'S ORGANIZ ATION 02/16/2023 [employer] DATE CREATED AUTHOR AUTHOR'S ORGANIZ ATION 02/16/2023 [facility] DATE CREATED AUTHOR AUTHOR'S ORGANIZ ATION 12/18/2023 [facility] DATE CREATED AUTHOR AUTHOR'S ORGANIZ ATION 01/18/2024 [facility] [employer] Rout[employer] Team (unrecognized sect ion and content) Refuge Manager Relationship Specialty Start Date End Date Beena Benítez MD [address] [place] [address] [place] [address] PCP - General Family Medicine 07/19/23 Refuge Manager Relationship Specialty Start Date End Date Beena Benítez MD PCP - General Family Medicine 07/19/23 Refuge Manager Relationship Specialty Start Date End Date Beena Benítez MD PCP - General Family Medicine 07/19/23 Refuge Manager Relationship Specialty Start Date End Date Beena Benítez MD PCP - General Family Medicine 07/19/23 Refuge Manager Relationship Specialty Start Date End Date Beena Benítez MD [address] [place] [address] [place] [address] PCP - General Family Medicine 01/17/24 REASON FOR VISIT (unrecogniz ed section and content) Reason Comments Follow-up 5 month Specialty Diagnoses / Procedures Referred By Silvina nichols Referred To Contact Diagnoses Paroxysmal atrial fibrillation ([facility]/HCC) Procedures ECG 12 Lead Margret Stevens MD [address] [address] Referral ID Status Reason Start Date Expiration Date V isits Requested Visits Authorized [id number] Authorized 07/19/2023 07/18/2024 1 1 Reason Comments Follow-up Sooner OV - last mon lower edema, med change Specialty Diagnoses / Procedures Referred By Contac t Referred To Contact Cardiology Diagnoses SOB (shortness of breath) Edema, unspecified type Procedures Follow Up In Cardiology Margret Stevens MD [address] [address] Margret Stevens MD [address] [address] Referral ID Status Reason Start Date Expiration Date V isits Requested Visits Authorized [id number] Authorized 09/23/2023 09/22/2024 1 1 Specialty Diagnoses / Procedures Referred By Contac t Referred To Contact Cardiology Diagnoses SOB (shortness of breath) Chronic systolic congestive heart failure, NYHA class 2 (Multi) Ischemic cardiomyopathy Procedures Transthoracic Echo Complete IN ECHO TTHRC R-T 2D W/WOM-MODE COMPL SPEC&COLR D Margret Stevens MD [address] [place] [address] Referral ID Status Reason Start Date Expiration Date Visits Requested Visits Authorized [id number] Authorized Perform Procedure 10/04/2023 10/03/2024 1 1 Reason Comments Follow-up Echo results Specialty Diagnoses / Procedures Referred By Contac t Referred To Contact Cardiology Diagnoses Ischemic cardiomyopathy Procedures Follow Up In Cardiology Margret Stevens MD [address] [place] [address] Margret Stevens MD [address] [place] [id number] Referral ID Status Reason Start Date Expiration Date V isits Requested Visits Authorized [id number] Authorized 10/04/2023 10/03/2024 1 1 Reason Comments Follow-up 1m Specialty Diagnoses / Procedures Referred By Silvina t Referred To Contact Cardiology Diagnoses SOB (shortness of breath) Coronary artery disease involving hoonah coronary artery 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 [email or web address] provides no warranty or guarantee of the accuracy or completeness of information in this document.
[2024-07-12 07:44] LABS: Basophils Percent Auto 0.4 % (0.2-2.0); Eosinophils Absolute Auto 0.1 10^3/uL (0.0-0.7); Eosinophils Percent Auto 2.6 % (0.9-7.0); Hematocrit 40.8 % (42.0-54.0); Hemoglobin 13.7 g/dL (14.0-18.0); Immature Granulocytes Abs Auto 0.01 10^3/uL (0.00-0.03); Immature Granulocytes Pct Auto 0.2 % (0.0-0.5); Lymphocytes Absolute Auto 1.5 10^3/uL (1.2-3.8); Lymphocytes Percent Auto 30.9 % (20.5-60.0); Mean Corpuscular HGB Conc 33.6 g/dL (29.9-35.2); Mean Corpuscular Hemoglobin 30.4 pg (25.9-34.0); Mean Corpuscular Volume 90.7 fL (80.0-94.0); Mean Platelet Volume 10.6 fL (9.5-13.5); Monocytes Absolute Auto 0.5 10^3/uL (0.3-0.8); Monocytes Percent Auto 10.8 % (1.7-12.0); Neutrophils Absolute Auto 2.7 10^3/uL (1.4-6.5); Neutrophils Percent Auto 55.1 % (43.0-75.0); Platelet Count 157 10^3/uL (150-450); Red Cell Distribution Width 12.7 % (11.0-15.0)
[2024-07-12 07:46] LABS: Alanine Aminotransferase 38 U/L (16-63); Albumin Globulin Ratio 1.2; Albumin Level 3.8 g/dL (3.4-5.0); Alkaline Phosphatase 53 U/L (46-116); Aspartate Amino Transferase 23 U/L (15-37); Bilirubin Total 0.8 mg/dL (0.2-1.0); Calcium 8.8 mg/dL (8.5-10.1); Chloride 101 mmol/L (98-107); Estimated GFR (African America >60 (>=60 mL/min/1.73m^2); Estimated GFR (Non-African Ame >60 (>=60 mL/min/1.73m^2); Globulin 3.2 g/dL; Glucose 136 mg/dL (74-106); Sodium 137 mmol/L (136-145)
[2024-07-12 07:48] LABS: Chol HDL Ratio 2.1; Cholesterol 105 mg/dL (<=200); HDL Cholesterol 51 mg/dL (40-60); Triglycerides 125 mg/dL (<=150)
== END 2024-07-12 06:29 | disposition home or self-care (01) ==
LOC: LAB 06:30
PROVIDERS: PCP Family Medicine
DX: I25.5 Ischemic cardiomyopathy (principal); Z13.220 Encounter for screening for lipoid disorders
CPT/HCPCS: 36415; 80048; 80053; 80061; 85025

== ENCOUNTER 2024-08-04 07:38 | Outpatient (OUT) | payer MEDICARE, SELFPAY ==
--- OUTSIDE RECORDS SUMMARY | 2024-08-04 07:41 | XMS_ITS | CCD ---
Author Organization [facility] Care Team Providers Care 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 Name Role Phone Beena Benítez Unavailable Adam Leo Unavailable Akil Morrow Unavailable Beena Benítez Unavailable Unavailable Unavailable BEENA BENÍTEZ Primary Care Physician [phone] Beena Bení[address] Beena Benítez Primary [...] Provider Beena Benítez MD Primary Care Provider Beena Benítez MD Primary Care Provider SHILPI STEVENSA Referring Unavailable BEENA BENÍTEZ Primary Care Unavailable Beena Benítez MD Primary Care Provider MARGRET STEVENS Attending Unavailable BEENA BENÍTEZ Primary Care Unavailable STEVENSSHILPI PIERREA Attending Unavailable STEVENS, MARGRET Referring Unavailable BEENA BENÍTEZ E Primary Care Unavailable LEONEL BILLY Attending Unavailable STEVENS, MARGRET Referring Unavailable BEENA BENÍTEZ Primary Care Unavailable SHILPI STEVENSA Attending Unavailable LEONEL BILLY Referring Unavailable BEENA BENÍTEZ Primary Care Unavailable SHILPI STEVENSA Attending Unavailable STEVENS, MARGRET Referring Unavailable BEENA BENÍTEZ Primary Care Unavailable Allergies Allergy Classification Reported Allergen(s) Allergy Type Date of Onset Reaction(s) Facility (1 source) No Known Medication Allergies; Translations: [No Known Medication Allergies] Propensity to adverse reactions (disorder) [facility] Repository (10 sources) dapagliflozin; Translations: [Farxiga TABS] Drug Allergy -[facility] 250 DO Work Phone: Medications Current [...] apple cider vinegar 600 mg oral capsule (3 sources) take 1 capsule by mouth twice [...] day(s), # 90 tab(s), Refills(s) 3, Pharmacy: [facility]/pharmacy #[id number], 178, cm, 01/23/22 14:05:00 EDT, Height/Length Dosing, 170, kg, 01/23/22 14:05:00 EDT, Weight Dosing Start Date: 01/24/22 Stop Date: 01/19/23 Status: Ordered Start: 01-23-2022 take 4 tablets by mouth once P lavix 75 mg Tab 300 mg = 4 tab(s), Oral, Once, 300 mg Loading Dose, # 4 tab(s), Refills(s) 0, Pharmacy: [facility]/pharmacy #[id number], 178, cm, 01/23/22 14:05:00 EDT, Height/Length [...] DULoxetine 60 mg delayed release oral capsule (12 sources) Serotonin and Norepinephrine Reuptake Inhibitor Start: 11-05-2022 take 1 capsule by mouth once daily DULoxetine (Cymbalta) [address] capsule Take 1 capsule (60 mg) by mouth once daily. 03/01/2023 Active furosemide 20 mg oral tablet (17 sources) Loop Diuretic Start: 12-15-2023 End: 07-17-2025 take 1 tablet by mouth once daily furosemide (Lasix) 20 mg tablet Indications: SOB (shortness of breath) Take 1 tablet (20 mg) by mouth once daily. 90 tablet 3 07/17/2024 07/17/2025 Active Start: 10-04-2023 End: 10-03-2024 take 1 [...] day(s), # 90 tab(s), Refills(s) 3, Pharmacy: [facility]/pharmacy #[id number], 179, cm, 03/09/22 11:22:00 EDT, Height/Length [...] day(s), # 180 tab(s), Refills(s) 3, Pharmacy: [facility]/pharmacy #[id number], 178, cm, 06/20/21 9:09:00 EST, Height/Length [...] mg oral tablet (20 sources) Start: 12-22-2023 End: 07-17-2024 take 1 tablet by mouth once daily magnesium oxide (Mag-Ox) 400 mg (241.3 mg magnesium) tablet Indications: Unspecified atrial fibrillation (Multi) Take 1 tablet (400 mg) by mouth once daily. 90 tablet 3 07/17/2024 Active Start: 12-21-2022 take 1 tablet by [...] Start: 09-Oct-2020 End: 06-Apr-2021 Generic Substitution Allowed metFORMIN hydrochloride 500 mg oral tablet (20 [...] Substitution Allowed modafinil 100 mg oral tablet (10 sources) Sympathomimetic-like Agent Start: 01-26-2023 take 1 [...] Andreia Petersen Generic Substitution Allowed multivitamin tablet (6 sources) take 1 tablet by inocencio th [...] pen injector Indications: 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 Inject 0.5 mg [...] sources) Factor Xa Inhibitor Start: 09-21-2023 End: 07-17-2024 take 1 tablet by mouth once daily at mealtime rivaroxaban (Xarelto) 20 mg tablet Indications: Unspecified atrial fibrillation (Multi) TAKE 1 TABLET BY MOUTH ONCE DAILY WITH BIGGEST MEAL OF THE DAY 30 tablet 3 07/17/2024 Active Start: 05-15-2023 Xarelto 20 mg tablet [...] Margret Stevens MD Start : 23-Apr-2021 Active sacubitril 97 mg / valsartan 103 mg oral tablet (20 sources) Angiotensin 2 Receptor Ashely Start: 07-19-2023 End: 07-17-2024 take 1 tablet by mouth twice daily sacubitriL-valsartan (Entresto) 97-103 mg tablet Indications: Chronic systolic congestive heart failure, NYHA class 2 Take 1 tablet by mouth 2 times a day. 180 tablet 3 07/17/2024 Active Start: 11-23-2022 End: 07-19-2023 take 1 [...] tablet (20 sources) Antiarrhythmic Start: 08-20-2023 End: 07-17-2024 take 1 tablet by mouth twice daily sotalol (Betapace) 80 mg tablet Indications: Unspecified atrial fibrillation (Multi) Take 1 tablet (80 mg) by mouth 2 times a day. 180 tablet 3 07/17/2024 Active Start: 10-05-2022 take 1 tablet by [...] of breath) , 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 Take 1 tablet (500 mg) by mouth 2 times a day. Do not crush, chew, or split. 60 tablet 11 12/15/2023 01/17/2024 Discontinued (Therapy completed) rosuvastatin calcium 20 mg oral tablet (20 sources) HMG-CoA Reductase Inhibitor Start: 08-17-2022 End: 07-17-2025 take 1 tablet by mouth once daily rosuvastatin (Crestor) 20 mg tablet Indications: Mixed hyperlipidemia Take 1 tablet (20 mg) by mouth once daily. 90 tablet 3 10/04/2023 07/17/2024 Discontinued (Reorder) 1 mg dose 1.5 ml semaglutide 1.34 mg/ml pen injector (2 sources) Start: 01-23-2024 End: 01-22-2025 inject 1 mg by subcutaneous injection every week semaglutide (Ozempic) 1 mg/dose (2 mg/1.5 mL) pen injector Indications: 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 Inject 1 mg under the skin 1 (one) time per week. 3 mL 3 01/23/2024 07/17/2024 Discontinued (Dose adjustment) semaglutide (Ozempic) 0.25 mg or 0.5 mg (2 mg/3 mL) pen injector (1 source) Start: 03-26-2024 End: 07-17-2024 inject 0.5 mg by subcutaneous injection every week semaglutide (Ozempic) 0.25 mg or 0.5 mg (2 mg/3 mL) pen injector Indications: 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 Inject 0.5 mg under the skin 1 (one) time per week. 3 mL 3 03/26/2024 07/17/2024 Discontinued (Therapy completed) spironolactone 25 mg oral tablet (7 sources) Aldosterone Antagonist Start: 10-04-2023 End: 07-17-2025 take 1 tablet by mouth once daily spironolactone (Aldactone) 25 mg tablet Indications: SOB (shortness of breath) , Edema, unspecified type , Chronic systolic congestive heart failure, NYHA class 2 Take 1 tablet (25 mg) by mouth once daily. 90 tablet 3 12/15/2023 07/17/2024 Discontinued (Reorder) sulfamethoxazole 800 mg / trimethoprim 160 mg [...] 10-27-2022 2020 Chronic Coagulation and hemorrhagic disorders (13 sources) Other thrombophilia; Translations: [Secondary hypercoagulable state] Onset: 07-19-2023 07-19-2023 Chronic Conduction disorders (10 sources) Chronotropic incompetence; Translations: [Other specified conduction disorders] Chronic Congestive heart failure; nonhypertensive (20 sources) Congestive heart failure stage C; Translations: [Congestive heart failure, unspecified] Onset: 10-28-2022 07-19-2023 Chronic Coronary atherosclerosis and other heart disease (20 sources) Coronary arteriosclerosis; Translations: [Coronary atherosclerosis of unspecified type of vessel, [place] or graft] Onset: 09-10-2022 Chronic Coronary atherosclerosis [...] Gastroesophageal reflux disease 04-09-2016 Chronic Essential hypertension (20 sources) Hypertensive disorder; Translations: [Essential hypertension] Onset: [...] of anticoagulants] Episodic Other aftercare (1 source) detention (current) use of anticoagulants; Translations: [MOUNTER AUTOMATIC CURRNT USE ANTICOAGULANTS] Onset: 10-28-2022 Episodic Other aftercare (10 sources) Taking high risk medication; Translations: [Other jail (current) drug therapy] Onset: 07-19-2023 07-19-2023 Episodic Other connective tissue disease (10 sources) Muscle pain; Translations: [Myalgia and myositis, unspecified] Episodic Other infections; including parasitic (14 sources) Personal history of other infectious and parasitic diseases; Translations: [Personal history of COVID-19] Episodic Other lower respiratory disease (20 sources) Dyspnea; Translations: [Shortness of breath] Onset: 05-05-2023 05-05-2023 Episodic Other nutritional; endocrine; and metabolic disorders (4 sources) Morbid obesity; Translations: [Morbid obesity] Chronic Other nutritional; endocrine; and metabolic disorders (20 sources) Body mass index 40+ - severely obese; Translations: [Morbid obesity] Onset: 12-15-2023 12-15-2023 Chronic Other nutritional; endocrine; and metabolic disorders (3 sources) Body mass index (BMI) 50.0-59.9, adult; Translations: [Body mass index (BMI) 50.0-59.9, adult (Multi)] Onset: 12-15-2023 Chronic Daphne-; endo-; and myocarditis; cardiomyopathy (except that caused by tuberculosis or sexually transmitted disease) (20 sources) Cardiomyopathy; Translations: [Other primary cardiomyopathies] Onset: 07-20-2022 Chronic Residual codes; unclassified (17 sources) Sleep apnea; Translations: [Obstructive sleep apnea [...] Translations: [Memory loss] Episodic Residual codes; unclassified (3 sources) Edema; Translations: [Edema, unspecified] 10-04-2023 Episodic Residual codes; unclassified (3 sources) Never smoked tobacco; Translations: [Other specified health status] Onset: 01-17-2024 01-17-2024 Episodic Residual codes; unclassified (2 sources) Other specified health status; Translations: [Other specified health status] Onset: 07-17-2024 Episodic Sprains and strains (1 source) Strain of muscle, fascia and tendon of lower back, initial encounter Episodic Transient cerebral ischemia (16 sources) Transient cerebral ischemia; Translations: [Unspecified transient cerebral ischemia] Chronic Unclassified (2 sources) DRUG LOADING WITH SOTALOL 09-26-2020 Comment on above: DRUG LOADING WITH SO TALOL Unclassified (2 sources) Other persistent atrial fibrillation; Translations: [Other persistent atrial fibrillation] Onset: 05-05-2023 Past or Other Problems Problem Classification Problem Date Documented Date Episodic/Chronic Other aftercare (19 sources) Treatment changed; Translations: [Long-term (current) use of other medications] Onset: 07-19-2023 07-19-2023 Episodic Other aftercare (3 sources) Other jail (current) drug therapy; Translations: [OTH ASSISTED CURRENT DRUG THERAPY] Onset: 10-28-2022 Episodic Other lower respiratory disease (5 sources) [...] diseases] Resolved: 12-31-2021 Episodic Residual codes; unclassified (8 sources) Edema of lower leg ; Translations: [Localized edema] Onset: 10-04-2023 10-04-2023 Episodic Residual codes; unclassified (2 sources) Edema, unspecified; Translations: [Edema, unspecified] Onset: 10-04-2023 Episodic Residual codes; unclassified (2 sources) Localized edema; Translations: [Localized edema] Onset: 10-04-2023 Episodic Unclassified (16 sources) Never smoked tobacco; Translations: [Never smoker] Unclassified (16 sources) Patient status finding; Translations: [Patient new to provider] Unclassified (6 sources) Onset: 07-19-2023 Resolved: 07-17-2024 07-19-2023 Viral infection (13 sources) Disease caused by 2019-nCoV; Translations: [Other specified viral infection] Onset: 05-05-2023 05-05-2023 Episodic Results Test Name Value Interpretation Reference Range Facility ECG 12 Leadon 07-17-2024 Normal sinus rhythm 68 bpm normal intervals QTc 440 ms low volts left axis deviation anterior septal myocardial infarction not excluded isolated supraventricular premature beats are noted no change compared to EKG of 01/18/2024. [facility] Work Phone: ECG 12 Leadon 01-17-2024 Normal sinus rhythm at 71 with supraventricular premature beats. Since record of November 2023 supraventricular premature beats are now present. Low voltage complexes. QTc 456 ms KS interval normal [facility] Work Phone: TRANSTHORACIC ECHO (TTE) COM PLETEon 11-10-2023 TRANSTHORACIC ECHO (TTE) COMPLETE [address], [address] [facility] [place], [place] [address] TRANSTHORACIC ECHOCARDIOGRAM REPORT Patient Name: LORENA GOULDCOLBY Arboleda Physician: [id number] Albaro Roman MD Study Date: 11/10/2023 Ordering Provider: [id number] MARGRET STEVENS MRN/PID: [id number] Fellow: Nurse: Tigre De La Rosa RN Date of /Age: 5 1955 / 68 years Mrb Engineer: Gina Hernandez RDCS, T Gender: M Additional Staff: Height: 177.80 cm Admit Date: Weight: 166.92 kg Admission Status: BSA / BMI: 2.70 m2 / 52.80 kg/m2 Department Location: [facility] Study Type: TRANSTHORACIC ECHO (TTE) COMPLETE Diagnosis/ICD: Shortness of breath-R06.02; Chronic systolic (congestive) heart failure (CHF)-I50.22; Ischemic cardiomyopathy-I25.5 Indication: Atrial Fibrillation, CAD, PTCA-04/2020, Diabetes, Edema, HTN, Hyperlipidemia, Morbid Obesity, GAYLE CPT Codes: Echo Complete w Full Doppler-[id number] Study Detail: The following Echo studies were [...] 0.5 m/s (0.6-0.9m/s) PV Max P.2 mmHg [id number] Albaro Roman MD Electronically signed on 11/11/2023 at 6:04:53 PM Final Normal [facility] ECG 12 Leadon 10-04-2023 [facility] Work Phone: [facility] Work Phone: ECG 12 Leadon 08-16-2023 [facility] Work Phone: Office Visit (Cardiology)on 02-15-2023 Follow-up [...] Metabolic Panel; Status:Active - Retrospective Authorization; Requested for:[id number]; Abnormal EKG, Fatigue, High risk medication use, Hyperlipidemia Complete Blood Count; Status:Active - Retrospective Authorization; Requested for:[id number]; Atrial fibrillation IO EKG Electrocardiogram- 12 Lead; Status:Complete; Done: [id number] Morbid obesity with BMI of 50.0-59.9, adult Healthy Weight Tips; Status:Complete - Retrospective Authorization; Done: [id number] Some eating tips that can help you lose weight.; Status:Complete - Retrospective Authorization; Done: [id number] SocHx: Never smoker Tobacco Use Screening; Status:Complete; Done: [id number] Patient Instructions Please bring all medicines, vitamins, [...] options. He and his have joined weight [employer]. An EKG was done today, reviewed,No recent [...] per 2D echocardiogram dated June 07, 2020, [place] Heart Association class II, stage B heart failure. 10. Gouty arthritis. Patient remains on allopurinol, no recent recurrence. 11. Abnormal perfusion imaging showing an LV ejection fraction in the 20s, with subsequent cardiac catheterization showing LV ejection fraction of 45%, this was done at [facility] and that particular Catheterization did not [...] This is consistent with chronotropic blunting. 13. [id number] score is 6 14.48-hour Holter monitor-minimum heart rate 46 bpm average heart rate 66 bpm maximum heart rate 99 bpm ventricular patience (more content not included)... Normal [facility] Tobacco Screening.on 023 Fall risk assessment b) One or more fall s in the last year [facility] 250 DO Work Phone: Tobacco use status CP b) No [facility] y 250 DO Work Phone: Cardiovasc Arrhythmia Result son 11-30-2022 Cardiovasc Arrhythmia Results Reason For Visit Reason for Visit: Holter Monitor: LORENA is here for the application of a 48 hour Holter monitor. Ordering Physician: Dr. Margret Stevens MD Diagnosis: a-fib NO equipment agreement signed. LORENA understands monitor is to be returned on: 12/02/2022 Monitor number [id number] applied. Holter monitor returned and downloaded. Holter monitor returned and downloaded. 12/03/2022 Holter monitor printed and emailed to [place] [facility] and placed on Dr. Margret Stevens [...] Appointments Date/TimeProviderSpeci altySite 02/15/2023 12:30 PMMargret Stevens, [id number] [facility] [address] 250 DO Signatures Electronically signed by : Margret Stevens MD; Feb 15 2023 2:58PM EST (Author) Normal [facility] Office Visit (Cardiology)on 11-23-2022 Follow-up visit Diagnoses/Problems [...] Hrs; Status:Active - Perform Order,Retrospective Authorization; Requested for:[id number]; CHF (NYHA class II, ACC/AHA stage C) Start: Entresto 49-51 MG Oral Tablet; TAKE 1 TABLET BY MOUTH TWICE A DAY CHF (NYHA class II, ACC/AHA stage C), Ischemic heart disease with chronotropic incompetence Basic Metabolic Panel; Status:Active - Retrospective Authorization; Requested for:[id number]; Morbid obesity with BMI of 50.0-59.9, adult [...] per 2D echocardiogram dated June 07, 2020, [place] Heart Association class II, stage B heart failure. 10. Gouty arthritis. Patient remains on allopurinol, no recent recurrence. 11. Abnormal perfusion imaging showing an LV ejection fraction in the 20s, with subsequent cardiac catheterization showing LV ejection fraction of 45%, this was done at [facility] and that particular Catheterization did not [...] This is consistent with chronotropic blunting. 13. [id number] score is 6 Laboratory data from September 2022 s (more content not included)... Normal [facility] Tobacco Screening.on 023 Adult depression screening assessment No [facility] y 250 DO Work Phone: Fall risk assessment a) No falls within the last year [facility] y 250 DO Work Phone: Tobacco use status [facility]PH[facility] b) No [facility] y 250 DO Work Phone: BNPon 10-27-2022 Natriuretic peptide B (Bld) [Mass/Vol] 80.0 pg/mL Normal <=900.0 The [facility] Comment on above: Performed By: #### B MEDICAL DONATION PROFESSIONAL, CK, TSH #### [facility] Laboratory [address] [place] [address] [address] Maria T Canela CPKon 10-27-2022 CK [Catalytic activity/Vol] 302 U/L Normal 39-308 [facility] Comment on above: Performed By: #### B MEDICAL DONATION PROFESSIONAL, CK, TSH #### [facility] [address] [place] [address] [address] Maria T Canela FREE T4on 10-27-2022 Free T4 [Mass/Vol] 0.87 ng/dL Normal 0.76-1.46 The [facility] Comment on above: Performed By: #### F T4 ####[facility] [id number] [place] [address]Dr. Maria T Canela GLYCOHEMOGLOBIN A1Con 2022 ADA RECOMMENDATION SEE BELOW Normal [facility] Comment on above: Result Comment: ADA RECOMMENDED LIMIT 4.0 - 6.0 ADA THERAPEUTIC TARGET < 7.0 ACTION SUGGESTED > 7.0 Performed By: #### A 1C #### [facility] [address] [place] [address] Dr. Maria T Canela Glucose [Mass/Vol] 169 mg/dL Normal [facility] Comment on above: Performed By: #### A 1C #### [facility] [address] [place] [address] Dr. Maria T Canela HbA1c (Bld) [Mass fraction] 7.5 % Critically high 4.5-6.2 [facility] Comment on above: Performed By: #### A 1C #### [facility] [address] [place] [address] [address] Marai T Canela SED RATE WESTERGRENon 2022 SED RATE 15 mm/hr Normal <=20 [facility] Comment on above: Performed By: #### S EDR ####[facility] [id number] [place] [address]Dr. Maria T Canela TSHon 10-27-2022 TSH 1.477 uIU/mL Normal 0.358-3.740 [facility] Comment on above: Performed By: #### B MEDICAL DONATION PROFESSIONAL, CK, TSH #### [facility] [address] [place] [address] [address] Maria T Canela Office Visit (Cardiology)on [...] per 2D echocardiogram dated June 07, 2020, [place] Heart Association class II, stage B heart failure. 10. Gouty arthritis. Patient remains on allopurinol, no recent recurrence. 11. Abnormal perfusion imaging showing an LV ejection fraction in the 20s, with subsequent cardiac catheterization showing LV ejection fraction of 45%, this was done at [facility] and that particular Catheterization did not show any flow-limiting disease. The perfusion study was done in December 2021, cardiac catheterization from January 2022 showed nonobstructive coronary artery disease of the left system widely patent RCA stent LVEF 45% moderately dilated left ventricular chamber dimension mildly elevated L (more content not included)... Normal [facility] Tobacco Screening.on 023 Tobacco use status [facility]PHS b) No [facility] y 250 DO Work Phone: Heart and [...] in office. He had echocardiogram performed at [facility], which was normal. He was ordered Event [...] protocol. [1] patient was then referred to [place] and was placed on sotalol followed by [...] progressive dry (more content not included)... Normal [facility] Comment on above: Result Comment: Elec tronically Signed By: Camilo STARK, Kushal Galarza Other Comment: Appar ent pt no show Cardiac Stress Teston 2022 Cardiac Stress Test [address], [address] [place] [address] Exercise Stress Test Patient Name: LORENA CAMPOS Ordering Physician: [id number] Margret Stevens Study Date: 09/10/2022 Reading Physician: [id number] Kim Mckeon MD, [facility] MRN/PID: [id number] Supervising Physician: [id number] Kim Mckeon MD, [facility] Accession/Order#: [id number] Referring Physician: MARGRET STEVENS Date of : 1955 PCP: Beena Benítez Gender: M Fellow: Height: 177.80 cm Nurse: Tigre De La Rosa RN Weight: 168.74 kg Mrb Engineer: ROB BSA: 2.72 m2 Technologist: BMI: 53.38 kg/m2 Additional Staff: Age: 66 years cc report to: Patient Location: report to: [id number] Margret Stevens Study Type: Cardiac Stress Test Diagnosis/ICD: R94.31-Abnormal electrocardiogram [ECG] [EKG]; I25.10-Atherosclerotic heart disease; I42.9-Cardiomyopathy, unspecified; I50.9-Heart failure, unspecified; R06.02-Shortness of breath Indication: Cardiomyopathy Procedure/CPT: Stress Test Interpretation-[id number]; Stress Test Supervision-[id number] Falls Risk: Low: Patient has low risk [...] The adequate level of stress was achieved. [id number] Kim Mckeon MD, [facility] Electronically signed on 09/10/2022 at 6:25:43 PM Final Normal [facility] Cardiac Stress Test [facility] [place] [facility] [facility] 250 DO Work Phone: Office Visit [...] History of Present Illness Patient with atherosclerotic [place] vessel coronary artery disease, multiple cardiac risk [...] per 2D echocardiogram dated June 07, 2020, [place] Heart Association class II, stage B heart failure. 10. Gouty arthritis. Patient remains on allopurinol, no recent recurrence. 11. Abnormal perfusion imaging showing an LV ejection fraction in the 20s, with subsequent cardiac catheterization showing LV ejection fraction of 45%, this was done at [facility] and that particular Catheterization did not show any flow-limiting disease. The perfusion study was done in December 2021, cardiac catheterization from January 2022 showed nonobstructive coronary a (more content not included)... Normal [facility] Tobacco Screening.on 023 Fall risk assessment c) Not medically indicated -[facility] [facility] 250 DO Work Phone: Tobacco use status [facility] b) No [facility] y 250 DO Work Phone: BNPon 07-20-2022 Natriuretic peptide B (Bld) [Mass/Vol] 72.0 pg/mL Normal <=900.0 [facility] Comment on above: Performed By: #### B MP, BNP ####[facility] [id number] [place], [place] [address]Dr. Maria T Canela PROF CHEM 8 (BAS METB)on Anion gap [Moles/Vol] 11.8 mmol/L Normal [facility] Comment on above: Performed By: #### B MP, BNP ####[facility] [address] [place], [place] [address]Dr. Maria T Canela Calcium [Mass/Vol] 9.2 mg/dL Normal 8.5-10.1 [facility] Comment on above: Performed By: #### B MP, BNP ####[facility] [address] [place], [place] [address]Dr. Maria T Canela Chloride [Moles/Vol] 101 mmol/L Normal 98-107 [facility] Comment on above: Performed By: #### B MP, BNP ####[facility] [address] [place], [place] [address]Dr. Maria T Canela CO2 [Moles/Vol] 28.1 mmol/L Normal 21.0-32.0 [facility] Comment on above: Performed By: #### B MP, BNP ####[facility] [address] [place], [place] [address]Dr. Maria T Canela Creatinine [Mass/Vol] 0.82 mg/dL Normal 0.70-1.30 [facility] Comment on above: Performed By: #### B MP, BNP ####[facility] [address] [place], [place] [address]Dr. Maria T Canela EGFR-AF [place]ER >60 Normal >=60 [facility] Comment on above: Performed By: #### B MP, BNP ####[facility] [address] [id number]. Kettysahra Hilton EGFR-NON AF [place] >60 Normal >=60 [facility] Comment on above: Performed By: #### B MP, BNP ####[facility] [address] [id number]. Maria T Canela Glucose [Mass/Vol] 190 mg/dL Critically high 74-106 [facility] Comment on above: Performed By: #### B MP, BNP ####[facility] [address] [address]Dr. Maria T Canela Potassium [Moles/Vol] 4.9 mmol/L Normal 3.5-5.1 [facility] Comment on above: Performed By: #### B MP, BNP ####[facility] [address] [place], [place] [address]Dr. Maria T Canela Sodium [Moles/Vol] 136 mmol/L Normal 136-145 [facility] Comment on above: Performed By: #### B MP, BNP ####[facility] [address] [place], [place] [address]Dr. Maria T Canela Urea nitrogen [Mass/Vol] 13.0 mg/dL Normal 7.0-18.0 [facility] Comment on above: Performed By: #### B MP, BNP ####[facility] [address] [place], [place] [address]Dr. Maria T Canela Urea nitrogen/Creatinine [Mass ratio] 15.9 mg/mg Normal [facility] Comment on above: Performed By: #### B MP, BNP ####[facility] [address] [place], [place] [address]Dr. Maria T Canela Office Visit (Cardiology)on 07-06-2022 [...] IO EKG Electrocardiogram- 12 Lead; Status:Complete; Done: [id number] Cardiomyopathy, CHF (NYHA class II, ACC/AHA stage C) Start: Entresto 24-26 MG Oral Tablet; TAKE 1 TABLET BY MOUTH TWICE A DAY Basic Metabolic Panel; Status:Active - Retrospective Authorization; Requested for:[id number]; Brain Natriuretic Peptide BNP; Status:Active - Retrospective Authorization; Requested for:[id number]; CHF (NYHA class II, ACC/AHA stage C) Start: Furosemide 20 MG Oral Tablet; TAKE 0.5 TABLET Daily Morbid obesity with BMI of 50.0-59.9, adult Healthy Weight Tips; Status:Complete - Retrospective Authorization; Done: [id number] Some eating tips that can help you lose weight.; Status:Complete - Retrospective Authorization; Done: [id number] SocHx: Never smoker Tobacco Use Screening; Status:Complete; Done: [id number] Unlinked Stop: Atorvastatin Calcium 80 MG Oral [...] is accompanied by his who works at [facility] [employer] in the cafeteria. Prior records were reviewed, [...] function test, and Lexiscan stress test at [facility]. He states he has absolutely no energy and is easily fatigued, he is short of breath and he has a nonproductive cough. He denies fever or chills. He is accompanied by his who questions whether he may change his cardiology follow-up to [facility] due to proximity to home. Patient wishes to establish care at [facility]. Predominant complaints are unrelenting fatigue, short-term [...] abnormal wit (more content not included)... Normal [facility] Tobacco Screening.on 023 Adult depression screening assessment No [facility] y 250 DO Work Phone: Fall risk assessment a) No falls within the last year [facility] y 250 DO Work Phone: Tobacco use status [facility] b) No [facility] y 250 DO Work Phone: CBC AUTO DIFFon 06-15-2022 BASO # 0.1 103/ul Normal 0.0-0.1 [facility] Comment on above: Performed By: #### C BC #### [facility] [address] [place] [address] Dr. Maria T Canela Basophils/100 WBC (Bld) 0.7 % Normal 0.2-2.0 [facility] Comment on above: Performed By: #### C BC #### [facility] [address] [place] [address] Dr. Maria T Canela EO # 0.2 103/ul Normal 0.0-0.7 [facility] Comment on above: Performed By: #### C BC #### [facility] [address] [place] [address] Dr. Maria T Canela Eosinophils/100 WBC (Bld) 2.7 % Normal 0.9-7.0 [facility] Comment on above: Performed By: #### C BC #### [facility] [address] [place] [address] Dr. Maria T Canela Erythrocyte distribution width (RBC) [Ratio] 12.7 % Normal 11.0-15.0 [facility] Comment on above: Performed By: #### C BC #### [facility] [address] [place] [address] Dr. Maria T Canela Hematocrit (Bld) [Volume fraction] 39.7 % Critically low 42.0-54.0 [facility] Comment on above: Performed By: #### C BC #### [facility] [address] [place] [address] Dr. Maria T Canela Hemoglobin (Bld) [Mass/Vol] 13.4 g/dL Critically low 14.0-18.0 [facility] Comment on above: Performed By: #### C BC #### [facility] [address] [place] [address] Dr. Maria T Canela IG # 0.01 10e3/ul Normal 0.00-0.03 [facility] Comment on above: Performed By: #### C BC #### [facility] [address] [place] [address] Dr. Maria T Canela IG % 0.1 % Normal 0.0-0.5 [facility] Comment on above: Performed By: #### C BC #### [facility] [address] [place] [address] Dr. Maria T Canela LYMPH # 1.7 103/ul Normal 1.2-3.8 [facility] Comment on above: Performed By: #### C BC #### [facility] [address] [place] [address] Dr. Maria T Canela Lymphocytes/100 WBC (Bld) 25.0 % Normal 20.5-60.0 [facility] Comment on above: Performed By: #### C BC #### [facility] [address] [place] [address] Dr. Maria T Canela MANUAL DIFF REQ NO Normal [facility] Comment on above: Performed By: #### C BC #### [facility] [address] [place] [address] Dr. Maria T Canela MCH (RBC) [Entitic mass] 30.0 pg Normal 25.9-34.0 [facility] Comment on above: Performed By: #### C BC #### [facility] [address] [place] [address] Dr. Maria T Canela MCHC (RBC) [Mass/Vol] 33.8 g/dL Normal 29.9-35.2 [facility] Comment on above: Performed By: #### C BC #### [facility] [address] [place] [address] Dr. Maria T Canela MCV (RBC) [Entitic vol] 89.0 fL Normal 80.0-94.0 [facility] Comment on above: Performed By: #### C BC #### [facility] [address] [place] [address] Dr. Maria T Canela MONO # 0.6 103/ul Normal 0.3-0.8 [facility] Comment on above: Performed By: #### C BC #### [facility] [address] [place] [address] Dr. Maria T Canela Monocytes/100 WBC (Bld) 9.6 % Normal 1.7-12.0 [facility] Comment on above: Performed By: #### C BC #### [facility] [address] [place] [address] Dr. Maria T Canela NEUT # 4.1 103/ul Normal 1.4-6.5 [facility] Comment on above: Performed By: #### C BC #### [facility] [address] [place] [address] Dr. Maria T Canela Neutrophils/100 WBC (Bld) 61.9 % Normal 43.0-75.0 [facility] Comment on above: Performed By: #### C BC #### [facility] [address] [place] [address] Dr. Maria T Canela Platelet mean volume (Bld) [Entitic vol] 10.6 fL Normal 9.5-13.5 [facility] Comment on above: Performed By: #### C BC #### [facility] [address] [place] [address] Dr. Maria T Canela PLT 163 103/ul Normal 150-450 [facility] Comment on above: Performed By: #### C BC #### [facility] [address] [address] [address] Maria T Canela RBC 4.46 106/ul Critically low 4.70-6.10 [facility] Comment on above: Performed By: #### C BC #### [facility] [address] [address] [address] Maria T Canela WBC 6.7 103/ul Normal 4.0-11.0 [facility] Comment on above: Performed By: #### C BC #### [facility] [address] [address] [address] Maria T Canela GLYCOHEMOGLOBIN A1Con 2022 ADA RECOMMENDATION SEE BELOW Normal [facility] Comment on above: Result Comment: ADA RECOMMENDED LIMIT 4.0 - 6.0 ADA THERAPEUTIC TARGET < 7.0 ACTION SUGGESTED > 7.0 Performed By: #### A 1C #### [facility] [address] [place] [address] Dr. Maria T Canela Glucose [Mass/Vol] 223 mg/dL Normal [facility] Comment on above: Performed By: #### A 1C #### [facility] [address] [place] [address] Dr. Maria T Canela HbA1c (Bld) [Mass fraction] 9.4 % Critically high 4.5-6.2 [facility] Comment on above: Performed By: #### A 1C #### [facility] [address] [place] [address] Dr. Maria T Canela MICROALBUMIN, RAND URon 05-31 mALB <1.3 Normal <=30.0 [facility] Comment on above: Performed By: #### M ALBR #### [facility] [address] [place] [address] Dr. Maria T Canela PROF 14(COMP METB)on 023 Albumin [Mass/Vol] 3.9 g/dL Normal 3.4-5.0 [facility] Comment on above: Performed By: #### C MP #### [facility] [address] [place] [address] Dr. Maria T Canela Albumin/Globulin [Mass ratio] 1.2 {ratio} Normal [facility] Comment on above: Performed By: #### C MP #### [facility] [address] [place] [address] Dr. Maria T Canela ALP [Catalytic activity/Vol] 81 U/L Normal 46-116 [facility] Comment on above: Performed By: #### C MP #### [facility] [address] [address] [address] Maria T Canela ALT [Catalytic activity/Vol] 65 U/L Critically high 16-63 [facility] Comment on above: Performed By: #### C MP #### [facility] [address] [place] [address] Dr. Maria T Canela Anion gap [Moles/Vol] 12.2 mmol/L Normal [facility] Comment on above: Performed By: #### C MP #### [facility] [address] [place] [address] Dr. Maria T Canela AST [Catalytic activity/Vol] 47 U/L Critically high 15-37 [facility] Comment on above: Performed By: #### C MP #### [facility] [address] [place] [address] Dr. Maria T Canela Bilirubin [Mass/Vol] 0.5 mg/dL Normal 0.2-1.0 [facility] Comment on above: Performed By: #### C MP #### [facility] [address] [place] [address] Dr. Maria T Canela Calcium [Mass/Vol] 9.1 mg/dL Normal 8.5-10.1 [facility] Comment on above: Performed By: #### C MP #### [facility] [address] [place] [address] Dr. Maria T Canela Chloride [Moles/Vol] 98 mmol/L Normal 98-107 [facility] Comment on above: Performed By: #### C MP #### [facility] [address] [place] [address] Dr. Maria T Canela CO2 [Moles/Vol] 27.3 mmol/L Normal 21.0-32.0 [facility] Comment on above: Performed By: #### C MP #### [facility] [address] [address] [address] Maria T Canela Creatinine [Mass/Vol] 0.80 mg/dL Normal 0.70-1.30 [facility] Comment on above: Performed By: #### C MP #### [facility] [address] [address] [address] Mari aT Canela EGFR-AF [place] >60 Normal >=60 [facility] Comment on above: Performed By: #### C MP #### [facility] [address] [address] [address] Maria T Canela EGFR-NON AF [place] >60 Normal >=60 [facility] Comment on above: Performed By: #### C MP #### [facility] [address] [place] [address] Dr. Maria T Canela Globulin (S) [Mass/Vol] 3.3 g/dL Normal [facility] Comment on above: Performed By: #### C MP #### [facility] [address] [place] [address] Dr. Maria T Canela Glucose [Mass/Vol] 291 mg/dL Critically high 74-106 [facility] Comment on above: Performed By: #### C MP #### [facility] [address] [place] [address] Dr. Maria T Canela Potassium [Moles/Vol] 4.5 mmol/L Normal 3.5-5.1 [facility] Comment on above: Performed By: #### C MP #### [facility] [address] [place] [address] Dr. Maria T Canela Protein [Mass/Vol] 7.2 g/dL Normal 6.4-8.2 [facility] Comment on above: Performed By: #### C MP #### [facility] [address] [address] [address] Maria T Canela Sodium [Moles/Vol] 133 mmol/L Critically low 136-145 [facility] Comment on above: Performed By: #### C MP #### [facility] [address] [place], [place] [address] Dr. Maria T Canela Urea nitrogen [Mass/Vol] 14.0 mg/dL Normal 7.0-18.0 [facility] Comment on above: Performed By: #### C MP #### [facility] [address] [place], [place] [address] Dr. Maria T Canela Urea nitrogen/Creatinine [Mass ratio] 17.5 mg/mg Normal [facility] Comment on above: Performed By: #### C MP #### [facility] [address] [place], [place] [address] Dr. Maria T Canela Coding Summary.on 03-18-2022 Coding Summary. CD:[id number] Gh 0bWw+PGhlYWQ+UL5TULDsD 17yrEAhqE4UW2aMPT4SMGI GYNISRQ7IVV4uuBW6GWzaA 2VybiAv SbuoqAKaMX21GNl7OJZ7hE ltFTpljU9wwKFjM3a9MuLb OL74lP63XLavSLYmReA2Qi ZpbjsgbWFy V1lcCeKnjCPpRbo+PHRhYm xlIHdpZHRoPScxMDAlJyBz fIyrDA7tAf5yWJGsCIZruO xhcHNlOiBj n4lsMOMtHDdaVF1ggOgmA9 HjpHQ8MMXui3c5Lu09yHC+ MOLdVCE0pEuwOLuhs006Pq Yml0qeKWC4 rXNfDCbgWXW6L53py6X2EW UhMGCgODR8hNK6oM8lhAut rezeX3DhtNGlKaD7XVK4dN TatU4nvDac mkkymM1eZzx+C67DXI4APE NOOX6QCjj5N6PyLihedDT+ KN33VLXfFR94uAIofHWsq8 lllUv6OfHe YUSmFBK0uUppWSset6FaOT GqO02yuRPjv4Y2BWQkdWkv kCKrPeRbmIZ4bT5bNMxsmq fcb1fyjxqi Ohosk9cmmc83vT51W48lKA jxUECfUZN2WIBeQHJfyUxs ts9ekQ4zTr9+ORkts4kad6 umzGi7PgAe JGLcpaFjrTjmCJK0t5VkOg 34B0PgiCexf7BwLeq5oy94 zCOac1E6vZO6DFdzBEUbyI 8qJEpcBiS8 PMOfDjWydR65lBBfEZcsYl 4hqGuqoXmzXN4yNGNqscvf VHFjxU5iQMCgjAZyvBoqUA 4wNTBpbjtm v438TwLpEGB8KSBhtNIyM3 ZaiI4xCbYmGUOgXZOiI4Bg tKJuODlvT434TRkaMdL1LB KhjzRiW1Wy SJIeqLsxNsK5k5N1Ly8Sb7 BtdgtbJQU8IKylKLQfQyQ5 LcNnUtT5O4PvTnl5YWKbnS ruVA9yH5Zv AYJzalmkwnqhlEP4FTTaKB YgcQ58uSSyFTyyYq3nk6G7 m446MNKdBYReuC82Uq5zyV ogMTBwdCBU yN0fhvjih6whcjmvCnRdFU BiGWc5GAf7IOCmhBwcUrHq JEV7EoX9GQK2lFTywU6xvZ mbbcpjpL6k Oyc+X98kzV9rJOC3XWT0ru xtWKCoavBnHC29LQ88O1Ja PjwvdGFibGU+PGRpdiBzdH zcXP5oZfGb c1vxh8PfOLxxN7OxOHEjXT cvYcq3KYFqWAQ9hYF2oP3u ITCkCIkzn5M7mKU8M1Yfiy Vlyc8sj7vm MPTmUNxkM59mgXDxp6E5EJ GjkRJ4CYCejLlsLeIhjX17 Oyc+YOUiaAfnh0BsHoyey2 ity7qzsXl5 MtPvSZGteoXsjGsuNHA7w5 DmGi81N34uJJzkESIvUJVh KTMlDHVqpVfegl6jyC9pMs 8+PGNvbCB3 hBS8dC2pPPClYpO3VVixO6 35SkWtiUBhOeskr9hwy2oc wLm9IrUwGLGarbJmjVdyBE X0b4CzHr40 V59cERvpZESfHPUzMMFqSW PrmVoioc8wqQ7pTk5+PC9j w9wvqw98bR59zKT+PHRkIH U9yEesRVua OMErwK6tMYkmCaA8RKJbEi NfvJ41kWQqFLgtLc4bkJps vOfrGB8oEDTknyfza252Yq Hcw0slDWGv xBUbBLvaGKU5I40wf8B7MF HyHHYgCNI4ySP5aK9xjMae bjogbGVmdDsgdmVydGljYW ccXJwlZ599 IHRvcDsnPlBhdGllbnQgTm JqQTz6X9QaEul3JKAcsSqx LE6zsRCtSTrtOg3uyWwepY qsWH6bJGCw hthlv591PpTsw0ynOQDtrC LrHWktSEC6C58bq7V0DDDw EGLePSA2rAC1uE9kdFmttl ogbGVmdDsg zhInlLuiKDpqHNvqC027CI RvcDsnPkJpcnRoIERhdGU6 RX93KJ02uEYzj6C1kHP5B6 BhZGRpbmct odlfdPL0PLWwBFOenQ50Ck 4cjArwXe1jZPVeWIK8SDDq rYHcW5NkuT4hOiHkVUElMR CdR2ZerKLs GOtyK302KLmjMqP3ZPJjls SsN1ZnRYVtvTxaRiP4w4I1 Md3KH5K6RH52TR04kRIob6 P7lPX8J0Lb ZXJcaiudpgzykQL5SILyTT GunM17Eb6tcPbnJq8iMCNi JRX7LUDbuWLpN9SmlQ1qFr AjMDAwMDAw R9RxzWLlWZnbM042OPcaTn D7GLFqruMmO8OzOOAdaRjq CqB1p9U8Pq9YGFo8MG24EA 69sRHhu2K5 xFK9C7IyWFZtbvkpnjmubR B0BEHxWFQnxZ77Zc3avKpt Ze5lZHCyPKB7FLQwiURbX1 KtcX5kTwIi DISpBCCeI0DufETkJUwcI0 77UGadSoG9ZQYfrdRgZ4Gb RDHovQikDpS6h2W4Gb0GSY IaDS66MUV9 oGE2CS69EE93T5NuWrjrkA FibGU+PHRhYmxlIHdpZHRo JHirMIWnOmIxjIrpYK9jTs 9yZGVyLWNv hHzwfDSwFxBrt5jcSFVqXK jeUL8wzWacJ0UlxHB9RHWp i9k4Sb28X88cK4JiuKB+PG DumQI7yYF5 bU0uDsRgBuT1CSvzW840Ow RgnPIsEntrn7qen3hdaBn0 JrE3WMYywkGfrWmyQEX2j7 MxFv43T53k IHdpZHRoPSIxNSUiIHZhbG flrs5cqF7rNh5+PGNvbCB3 lPX8vM1qAcVeZyV9ONfmY9 49InRvcCIv Nmvyg6nan5oegNz4KvRdRO DlwtZloTqjCSK8h0JwMr28 B6PffRqeo7YlEcg2pe77mE Dgz4V9bUI0 P0GgHCVpifydjBEepOudYL 4mXQOdhrfrEGXrlU6vCKRw T3t9HbYgJeQ0RTufF4Aply L2AKQxyAIr TSrvVSB5E45dv7P8JHXlMJ FcFIG8uVP9xG1kzQygmnwd bGVmdDsgdmVydGljYWwtYW evE647UVNg pIznJWGxgP5mENZdjCPhlZ biKX5sUWQkrttsEpUHZnZP IbegRMHBEDROToSBWM90KN 39hNBkd9F3 fQK7Z9RaMAQrywnsrxuynP S5LIIcEHTjwR15wQWnOYkz Pj7zh1D1f609QESzHKPbmQ 21Yj2jyCcd SQWmcSYPkI9gedfsu0dbmq dqAkWdLTLnIDv2WDc1DTTd mSkmHmQvNWT4EaG7QHK5gX WtoA3oxDnc xeympE0dWqy+MDUvMTEvMT f7GDcpvFA+SFXbCHL2nGce DUkuWUHbcW5vXOSzN6o3Zk TjUaZ2QAcl G4GeTLWxlhsdRw66dJ2qLm ZgTiG9ZYwbO5IxpnC8SODf kYBvOEtuKJS0Y29ye2Y7FS MwMDAwMDA7 qYC5fN6fxAusqfwtvWHzbY wjqsMtxBxgSAkaIKarE157 JPBqnKqqIrP7EXoeGOEwDO 64LK18iKBr k2E7wRZ7S7TiYXAxosbtzw rwhNF5EXDiKKGknI23gJIi CPtyGa4nm4W4n565VIBlJH XrxE27Nq4k zDiyVJHsfROHbA1jgeiwn2 amcfqjKgBuNTZuXVy3UNr4 UQSzdPjpTnCfPDW1NrJ6DU Z5eFPtfH7r xDvbgvjvvU5fKjc+TWFsZT wvdGQ+JELfEAN4qKsjBItf LTLpjC7sJFTdI2d4XnOzYe B2KUdrG3Bm FZOyipjnCm20nE8tFtTrXo L6MQpsI0HoqlP3BFBwsGQp QTexFUZ6Z69dw2K8FAOxVU AlOLZ0lIK8 oP4vvYoqvfryoJQxwVodgh HyhSrlZQywIRraV689UVYl vHlkHr83xVJjkJdmwfQ9K3 RkPjwvdHI+ JE98JRWoKQ29fMSbdQUyf8 kdgMi7YtDkLEYvPVE7oPnv BAikl9UqYYGrI22aqMLzb1 K0RGPwqQcw wXFyEkSojOP2nR1dMLhati ara0bkmiqhStbdg8pyuw94 pB69K47nBRhiHJEqQSZuRI UiIHZhbGln ve7mmA5zHp1+XBLyyHZ5qE S9gV2sNaApGkR3TVnoF459 UsIcfXJyMcdmr0zcx3mfeQ w0TyXtUWSo izLvuVzsXKN5m6FgGg97X6 9sIHdpZHRoPSIyMCUiIHZh aDrvkr5syB6gKg6+PC9jb2 wvkr74kU28 dHI+FRKoEFP3tJnnMLoyWW UbtG8tQEjbYxD0DARsZpSj uT14uBVvALqhEs8vdMqhrA gdEX9mGULd lgwbz990MeAim8nmHXFyeU NzMJzfCIS2Q43ts3I7WMXq ZOTnVSB3sSC3qE4nkBhwfz ogbGVmdDsg nrYtnLcjAMikBSubM071OE VhyPteRmMvvBEkB0cgiyRC BD9vDgpwgOY+IXOtGPG4pT xlPSdwYWRk aM5aLQHjC8a7MvVdNhG1SG gkZ0NccaS9TRGpySVrRFMx jEWSaK2jyutyu8bzbochOp AwMDAwMDt0 UIo5FDQpqGhdFkCpYBO8Dt E2VLL6mQMueW8kwGyhpzdl zM8eLhu+RklOOjwvdGQ+PH NpZVI2gVoh LSuhCVJxjR0vLHGbY2m0Bj IiGfW2UBgxE0KfmvU3XZEr qKZsXIZckERAbJ4ujmrot2 xvcjogIzAw TLDaMUi9JAb1FYQalDfsCk ViGPV0SwE9DRN3jQUeiX8t mWxwbrstkO8eWwx+TVJOOj wvdGQ+PHRk XYE0tWavLGkjXBIoeX9gDY HxD5f2SfTiYqE0MXtiK5Zj scK8IRNxbFLpYMRjnYZMvF 0thztkd9lr caikMxWdOFHgLMa4WUx3OK GinWfySqItKAN2LqL3ZHG8 nJCylU8hgPvkdvkpwV4mNt c+YWV3ELX7 TN14SF22Y7IyNvfivNHawE U+PHRhYmxlIHdpZHRoPScx OOVoOvNndDoyGM8cOs9xBT VyLWNvbGxh cHNl (more content not included)... Normal [facility] Consent for Treatmenton 02-28 Consent for Treatment [id number] 0CD:[address] [facility] Heart [facility] Vascular Office/Cl inic Noteon [...] in office. He had echocardiogram performed at [facility], which was normal. He was ordered Event [...] protocol. [1] patient was then referred to [place] and was placed on sotalol followed by [...] progressive dry (more content not included)... Normal [facility] Comment on above: Result Comment: Elec tronically Signed By: Camilo STARK, Kushal Moran.br\Date and Time Signed: 03/09/22 11:29 EDT Progress Note-Physicianon Progress Note-Physician [id number]#1.0 0CD:[address] [facility] Coding Summary.on 02-10-2022 Coding Summary. CD:[id number] Gh 0bWw+PGhlYWQ+WN5ZWFLyT 63prSImlH9CU3bDFY8DREY YDLJTZG3UVE2gvLC1TLzqZ 2VybiAv RolroXSmBG87CVw3CYT7oR zdRPeguZ9clZMeL2i4TvIu NZ81gE69VRmwDEGuAbR6Pj ZpbjsgbWFy C3xlZcLvzNMhNgh+PHRhYm xlIHdpZHRoPScxMDAlJyBz vOoiEF3aUu3zCZNvNWRrwD xhcHNlOiBj l9gtDIWsZIcdAP5cuYnpZ7 RnhLK9FUOyt0b0Gz21yRJ+ HGLtVKQ5rNefHNjem637Un Tkp8ckDER9 fRObFMyzYZR4U91ho7J7UG LuONXmSZY8hOV2oL1cfBhf rtmnY8EwxBRqDpW3FQC1wN HheT4iyQpm dsomdU5oLpt+S52AKR8ACF SGCY2VUgp8B0XgVriyeUO+ CQ94FQEpCJ79cLDtkUGta2 fqqWi5HcBu IENwITG2tOugYCtvz2KnXK WxS96ryNHaq2K7CYEdqNtb xTTlQhKtvFM2kI3eMIabdb pmj5uncslw Lkkjh6dzvg58tF14B37lQT gqQWIeGPQ6ZCOwVZGqhGvo pi5zvI7lEz7+HVzzl2mbl0 fmjMt3XcBh MSRteoZhfBbwSRE1f3FbNc 97H0VurRbin2HrAql5bg26 lQGxo8G6rVQ6ZRbmKSEslQ 7zJAtrTxS8 GAPwXxNqtP24cPCyWVxlSs 1zvNlubFmpMQ3iJSMtjuhu CJYzoO8lCFBmfHKuwAgjJT 4wNTBpbjtm r427QpCvZJW8CRAyfRKmB6 LroK6cVhYiSQFbWCSvU3Wy aKBaCQjcW854OOzhUcL7TK JpokWoC9Cf AWXqeEvgAiR6r5W7Td9Ti0 CateafEBJ1MMtrBJL5DyKo RgNnIcZ9G6IzMxf5ZOXpdZ xrHY6pV3Ub HFVcvcslrnleoVF2LJRpSA VooX46bYDhPZabRj9vw0J2 k027FDRvGESurR78Sk9ufQ ogMTBwdCBU rL6yqukmv6clquxfCiSlPE HiVZd5ZZn1GHUlzIcsXvVy DGM6DlU4PJW6dCZdcN0pfF pcvtddgH4t Oyc+V10ppO4dUTC1BJB4nq rxJGCwglGiRW97II79M8Fz PjwvdGFibGU+PGRpdiBzdH jvOU4cFwBs d1bmz8SiNTdhV3HpRXEgJP bkHlg6DRRaODT4vCP1gY2u CHDpCZvsr4D8jUP4R0Iwsx Nfzx2bx2hq KZRrPDxwZ10lnCFjz8K0EI FmcSU0GYZciGdsLwRuxN24 Oyc+DSWwpWrwv1HnTytqo0 zxm9kgzGf2 HoHoBQZruaJgaEeeCWF7y9 WbVg03K58zTGleNMWlHKFe ZHJnVEKtpArwnh3zrK5gOk 8+PGNvbCB3 mVR2rA5uJTJjAbN7ZJmcO8 43WdLphYOrPmugl9yhn5gx fBm2MsJxYEAuyuQajNkyRM C8y8BsRo83 J67fBBlkPZCsSVKiCMKkNY CosYcieh7tbY8aUz7+PC9j s8mjcs54aW87xVQ+PHRkIH F3lFjlEMso BUFurZ7vYBasDlN0TEHcJi VyoS42lIWvWLwfHm2dxOcd dBjiOX1wTJXfslzmv227Kf Mts6rfEPOh iLSxNQblSFS6R98hy1C4DE MmLTCnPWQ9tVT6dW0ijAag bjogbGVmdDsgdmVydGljYW ghSTnyN886 IHRvcDsnPlBhdGllbnQgTm OpVWp7G1VjIar1DEJtyFmk SQ3kfKUjZTuwFq0vzVtfoW alZM5lBTUv qmsus727BbUav2bsMWGpyV FsRAbxXPT7F09is3X1UTYd DISdIBQ2wKJ2mY3iaNcnur ogbGVmdDsg hsRloFgfEYywGGkoF005ID RvcDsnPkJpcnRoIERhdGU6 JG31PQ75kJBxs3O7dSH0E2 BhZGRpbmct kdoogLK9ETZmKRNspJ94Yv 8iyZdhBz8tWPOmAOR0VVCb iOBkR1MgeI6cHqBqSTEjXD CpB0OnaVUq ANrkS715ZWbmWhF3XZIbwt IyC0KsWTMfjMniCaC9b3B7 Xj1DT2A4HK35OL24aYOlz6 J6oCI2O1Qc OSEtyhqtbiwwwXD0OOTjFK KqbK18Cm4lpKnrKj4kSHJi CRD2AJQcrEMvE7DdiG8pVx AjMDAwMDAw Z1LtcABsZYphB830PJkcSj K5CPMclhRxD5LrGYLmuYyd TfB0m7F1Yu6HKSz6CR32FX 51aRMaj3W0 hEH6O5RdFHBurfvndxauxL L7RJZfEYGrlC85Qm9wlRou Yl0hJTIkIGJ3PJPqjWSbG0 NoeV4oUtFu UIIvLIJhN7BfqTMsTRprW2 38IZpyScA1MVHfwrXgW5Av NFJxiOzxAvV7s5T1Ag0FQB XpVJ51NBN6 kYU2RO41VD81F0QqBmmjbP FibGU+PHRhYmxlIHdpZHRo SUjlJJLlNbNvfVctIC9eMd 9yZGVyLWNv fNkflIRwXxZmo9zmIWCiFE ooTG3kiPdsS8PrpUQ5LXCf m6n9Bm99O88wE0MycGZ+PG UohOK8lES8 wP0uJjCrWkJ3GTgyD807Kr HjtHBbDtqem1chc6dtuHz7 VnI7BOPgltUjcMikUQI2s2 AyAz05I61x IHdpZHRoPSIxNSUiIHZhbG vuvn2raX6pXa7+PGNvbCB3 lNI5oI3qUcGaWiZ3UYfsD4 49InRvcCIv Mcrxx3zcx3rdlZi7EzQmNB IosrHjwWpwSKM1z2PbBm36 D3FpyFokj2AhGjz6go15rY Pvm6W6tRF0 Q1FaHYKghzzcsEKchVsuTT 1pCFNyyqkeEGXrxB9iLNIs N1s2NsXpPxF9CEqhZ2Iplf U6BMRhzHHp NJdjTSX0E19po7M2WYLmJM FxJXD1dEJ3xW6mjHkepmlr bGVmdDsgdmVydGljYWwtYW afM670GWVj cMceNALveG9pMUOccRJnuK ymZW7bXOPfjjnhKsRVZtOL DhcsYXVYHAJZPfINIA46WB 62nZQis6R2 zRR2N0WjSEEhvvmckkrprK G3NMYgLLTiuL33pCQhOWtg Xw6vk8S8h680ORHqOXDddJ 43Hj1flEgt RJRbtBPGvJ8xpusik3vgbv tnReRbBZCcDCk8NWs8HFNq bTyiHoHdJCD7JiH7IKG8fA MgoG3ybRgj yyiugF1pAfs+MDUvMTEvMT r6KDkasFX+VIVkKXE3eDud WCnfJMBvdO0vVNWaH1u6Ci RlBwO4SZdi I7EmCICgwfexDs19qK1iSm MqDsK9NUgyP3IhjmA1HLQc sEWlWSviWFE0Q51df4V1SP MwMDAwMDA7 wTJ2sB3pcEwsqvwudDAfvZ ldzyVjrYpwJXluLXisY751 GKEhoMdlImK7ZGfxTDCxNV 51RA83aPZj d9T5vTI3U0BaQFFnfaeigz cjvAD2FSUiYKUjtD86uITq NFmgOv0gg2X6d536PXQaRB XhfX95Ay8q xYewHLDijUFGiE3ymuawh4 gndijbKdKpNWSsAEd7OUt7 KJPsbIzyJnDfVTY3EhX8WX E7fRRtsB8d pJpnyfxejT0lPkl+TWFsZT wvdGQ+OFDpVRZ2gUccZVwp DZCifA9hHYFnC3i5FrYcGx W3ESprE0If ERWmdiduBx62pQ9nVjTiYe K5NWdvJ6SmqzH8BRPpuCUz EWmpWGR6A44em7X3FYXaIJ RyOLS3yED5 sT3khWzekkaknSMbwWlvdx JiyLcsDCtxPKnqE406SGRd cDsnPkFtYnVsYXRvcnkvU2 FtZSBEYXkg T2BwO9UvqYcscBJ+PC90cj 55U2BiUoloMxz1FJGpRVF5 lLR3vH7wLYSaLDjsi9M4fA Y7H4KoyiIu yn4pp8qxYGBfMWdbM23aqY Sup6W6KRXpgIY3VKArbJie VlKiyK12Lxw+PGNvbGdyb3 KcGfeqg5yi c3dftYk9OpXmPRGgtvQmbH kbQUM0l5FwGr47K65rYDwg ZHRoPSIzMCUiIHZhbGlnbj 0ozP4eXo9+ KJYnwGR0qBQ1rU2bAkVtSe R9SHgyK563RuSbtGBcMxmz c8isl4kdtAt8CsSbGQMcud FsaWduPSJ0 l1EwYn84D9CjjVxbw8QhCj k9wm93qJOry1B9tDT3K4Fr HOGikubjwPShhRajBM4mTH BpbjtwYWRk wY2dDQVeK6z3YhZvXpV1NY ykR0GmqcP7ZUQmkSBtNXBs cNEZeC9gysrfn7cbgaknPi AwMDAwMDt0 KJm1CCPebBxiSdUtIQN1Yt B4UMB4tDKqdM7eeQfmracx pD4iZwr+CQl7b3pktJZfKA 9hzYD8MA84 ZS42qCDmo3J9kWE1C7LySR GchryubeqrfTZ5ZEMkJUYj gZ57Ku6gsEuhAu5gIREtJG O9PJPurHDn F0HukW6rYlXaUCYbXKWoT1 SmfSYiAYtmY222JLzyNmD9 NRVpabJpR0OhPHJrmMgjPd N8a1H2Bp2S SY81HJ13AN49wEUqe0D3zO C4X1SpSCQbnafpfjmgjYP1 LXLrLDKooO45Yw1qbGazBg 2uXJYlNZI6 TGYbwPUlH4QylX6mDsWpOB RnKYEsJ8WecIToDYfrA521 GZkzFwG5EZSkcaTrI3MgKR FsaWduOiB0 p4X7Rx4ZOn85SJ12PH31mX Bvh0E8gGL0A0LgZXAxvzxw kohhvAD4IAAqSJYlxB83Xh 0epKqzZd8j NMZhTDD6LTHumRAhU4VljC 0eJqXuDPRrATZrX6QieEDa HIkkP412MSwxJuC2RFSnib DjC9ZbYODw dBzbOvW0f8Q4Mf5MHPxfqa f3U3HyBilnsSF+KS05XDFw NL03iUAbbRGxb4ieoTo5Bw EwMCUnIHN0 eWxl (more content not included)... Normal [facility] Consent for Procedure/Surger yon 02-09-2022 Consent for Procedure/Surgery [id number]#1 .00CD:[address] [facility] Cardiovascular Reporton Cardiovascular Report [id number]#1. 00CD:[address] [facility] Consent for Treatmenton Consent for Treatment [id number]#1.0 0CD:[address] [facility] Inpatient Clinical Summaryon 02-05-2022 Inpatient Clinical Summary [address] [address] Clinical Summary Person Information: Name: LORENA CAMPOS Age: 66 Years : 1955 Sex: Male PCP: BEENA BENÍTEZ MD Marital Status: Phone: [phone] Race: White Ethnicity: Non- or Language: Hungarian Visit Id: Visit Reason: R94.39 R07.9, I25.10 Speciality: Acuity: Enc Type: Ambulatory/Same Day Surgery Med Service: Surgery Arrival: 02/05/2022 06:31:58 Discharge: Dispo Type: Address: [address] [place] [address] [phone] Provider Notes: Diagnosis: Problems Active Hypertension Acid [...] Kushal Page MD Consulting Physician: Referring Physician: Kuhsal Page MD Follow up: With: Address: When: Kushal Page [address] [place], [place] [id number] [phone] [facility] () 03/09/2022 11:15 AM Type Location Start [facility] Cardiology Follow Up (FT) [facility] 03/09/2022 11:15 AM 03/09/2022 11:30 AM Confirmed Patient Education Information: CV - Cardiovascular Discharge Instructions (CUSTOM) [facility] Inpatient Patient Summaryon 02-05-2022 Inpatient Patient Summary [address] [address] Patient Discharge Instructions PERSON INFORMATION Name: LORENA [...] Follow up: With: Address: When: Kushal Page [address] [place] [address] [place] [address] [phone] Business (1) 03/09/2022 11:15 AM In the event that this physician does not participate in your insurance network, please consult with your insurance company to find a nearby participating provider. Type Location Start [facility] Cardiology Follow Up (FT) FT.Cardiology [...] ti (more content not included)... Normal [facility] Operative Reporton 2 Operative Report SURGERY DATE: [...] an exchange length J-wire. Next a 4 Comoran sheath was placed without complications and flushed with Heparinized Saline. Next a 4 [place]or[place] JL5 catheter was easily engaged into the [...] exchanged over a wire for a 4 [place] 3DRC catheter. This was easily engaged into [...] exchanged over a wire for a 4 [place]or[place] angled pigtail catheter. This is easily engaged [...] and his . Jamir Hernandez Dictated: 02/05/2022 [id number] Transcribed: 02/05/2022 [facility] Comment on above: Result Comment: Elec tronically Signed By: Camilo STARK, Kushal Galarza\.br\Date and Time Signed: 02/05/22 13:41 EDT Patient Education - Texton 0 02-05-2022 Patient Education - Text [place], [place] CARDIOVASCULAR DISCHARGE INSTRUCTIONS Diet: ? Resume [...] you are interested in smoking cessation, contact [facility] at [phone], ext. [phone]. ? In the event you are unable to reach your physician, please call [facility] at [phone] and the collar shaper operator will assist you. Seek Immediate Medical Care for: ? Bleeding: Apply continuous pressure to the site and Call 911. ? Should the arm or leg become cold, numb, blue or white call your physician immediately. ? Signs of infection are redness, warmth, swelling, increased tenderness, colored drainage, fever or chills ? Chest pain ? Normal [facility] Coding Summary.on 02-03-2022 Coding Summary. CD:[id number] Gh 0bWw+PGhlYWQ+AC0WOPOvK 41siBWhcS5DS7iQEU9HIUN RENANKL2KZZ6cjLL1SBcuV 2VybiAv HkhrbPFjCU09WDn2HFI8oS ouWLpvyO6djTKtZ0f8SyPv GB78jM23WLjlEYHiIfW2Sz ZpbjsgbWFy U3zqHeKoyPLeIso+PHRhYm xlIHdpZHRoPScxMDAlJyBz uSxdWW8ePh7pLOAcFSHgkR xhcHNlOiBj o8wpWXIbQNndET5fjMdpE7 LadXT8PWMsn4m6Dr13fMB+ XMMcJZQ2cRyuJEqsu858Qs Aoc5pwAEI4 jIPnPLbwZIG5O61uk3F6OX OcZBPyYTG0qZW5dR0zkMly szggG1FwwGMvRcW0TKO2fA UuuC5qdEwt jcdtaT7dYsf+P30WLG0CDG PPPE9TMzz7Y6JdFgnocIM+ LM32JIAtZZ08yWJktPWyz3 faiLu2RaIa ELIpFHR5xPcqTZikm9RpIP FyE97hoCLeo7D3MCGygEag aPRyXqYigZJ1uG0eEStosk rca7qvjjpa Rrjqr8lnlp39cJ56K08iHH soUDLmXWY2FCJsDTExsGgl zx6jsM7uLq8+DUivf9vsy0 bgqDj4JfFb LKXqopAqtXqsMLS8d8KuZf 24G1OyfImrx4LnSav1la84 yOSrh2N4qSE2ZOdqZXCetP 0zXXbxYgA3 RKLyXeLekJ89aSLdDHymMh 3yvJukvRumNZ4kOELcwqlv JWQrbL3bXNJjuHGzvIabHJ 4wNTBpbjtm z131RhIiOMV1MRMgqMXhU0 HuwM1tZxGoABCaIIHpW4Up yVBoUTpzM622CPdjNzZ3FD XdlmTtL9Qq HXVeoZsuMvZ6q7J7Jv7Cv5 AmgopnCMF6TQnbLYL7BsL4 IbTgYeO6G5BfVbz0BLGejR miEY2uR7De JIMyaxqzkuvndMR0MBXgRG BfeW85bSHeGYnvNk3qy7B6 m681XJYeIDUasC57Kh9axW ogMTBwdCBU zG0lahdwl0qwuesiIcNmCE ScXYq4CLy5MNIgvFcvBpJg DTC2TdM7KAC7vPSvbO9buF ybayoirD8i Oyc+K43evT6oNOE2GOX7os iyOZRfoqKrPF89OL53Y3Qh PjwvdGFibGU+PGRpdiBzdH gtZX9uRlSz v2isz3XhTVkkN2GpZTEzZA ubQdo6CDGvIWG5cTT9eH1f HFUoNZfnq1V9vFI7N4Dumv Urlz6wb0wq GKWpYGdmP75bwTHdv7M5BE SvpLK6QLLyfZcpSsYbnZ61 Oyc+UGOtaYaop8NmConvf9 khk3enyUr2 RqZjHDMrmoCxyLhuAPT7u2 EsYa76O11kFNueVNMoXNVv YGMaKGZfkZxmbg4ltU8wCh 8+PGNvbCB3 sZP3pL6oUXRxSmU3DOozW6 03PbKboZHbCioqy9mqp0dh vWl3DrBiUOWokcXqsDzgJJ A2s6PnFq72 U51mAJhwYGVbVARdNTYhPI ZsbFzlpc8lfZ7xGa0+PC9j h2jtdn79dQ36zDA+PHRkIH G7nSczEUki HUZwbF6nYKnaBoO6RKBiJx EujY75qQPsOGtmRq0ihFcv hOnpNZ4gOQPhmlidq393By Zfn7oqQTBf kLGdQBdvZVI6E93io5J2WP ThZBWgAIH7lLZ8kZ2mwNjd bjogbGVmdDsgdmVydGljYW cmJCdxL163 IHRvcDsnPlBhdGllbnQgTm NdKDk3S2HuUar5JGKviEfj NS5ywEIoVRaiHt3olIkbrZ bhSK4aSTVz rbhfj586NkDer8qjKOCtfV VrDSrwYPW6T19ze0U7ENPq MGGoSFD5tAF7gD7xcIvhpx ogbGVmdDsg giKjsMbbTEnlHHihB777DB RvcDsnPkJpcnRoIERhdGU6 UW36SV19nCLzt6E4pMA0W6 BhZGRpbmct bzgacPI6FNQhMBRsrK57Wa 3zzUdbXz0tIXLaBZQ3AASt vTRoS6OuzS5eTgNaEADsSR CrU5YrjWAe MVwtS596YSiaTtI3LJSqng MkI7QcKOMnsKioAhC6k6S2 Nc3YO7Z6NG36SX68nWSfu7 O5cVB9H2Gr YURynstqkoiwaTC7OHExXW NveE03Lh7ciAnuEg5pXJRw GHT7UZQhqWOaF4TtjC8vJf AjMDAwMDAw N3ZmcNBhPUvmX685RTuvYk P3IBUvqoLtG7HjKYFqkSea WoT4b9N0Vj2COHy8FV13XV 37fLAua2Z3 iDN4A6IiBEAvxgtxvisxcR C0XSMlDPYubM59Yu4nhYyn Dt5dAAOiUBH6PXGtlARlY1 CepO4pVsGy FSNxREIrW6XewWRaZVxwC1 92FQngEsL1XZUgtxDrO6Fo QMJefMinEmR5a9U7Lh4XKU YoGR47SLU5 uRC3TM52YY00H2EvMbeonT FibGU+PHRhYmxlIHdpZHRo JKxwRQBdPuJjkGpqBZ9iTi 9yZGVyLWNv kVdxjBQoJgNwj2goLRJcFQ erBC4vgAicA3UowSX6ZTDh m4c2Fq51D95fT4ShfTH+PG LprFV8vAN6 hO2qLyOiWaG3MBkvH943Sr XatWEqCelqn0gwx5hbqEk3 TdD3YZJbtdGihZykROZ9o4 JbOu48M90r IHdpZHRoPSIxNSUiIHZhbG irbx8wqL4bQy0+PGNvbCB3 vNE3aS5pPxKdGsC4DPkfY8 49InRvcCIv Dfgkv5fdi2ofeLq6EhVkOJ KypdDjcBzfVSW5b2UuRn11 K4BooLeft2OkKlb9fa71yS Wsw9I0fPY5 T6QkIMOcxwcljQXfcQshDW 2hOZRtjkggGNDwkF4oFRFk N1j2MqDsWzT1NGbwY6Kpps L3LUNyuJZa TRaqAAL5H20rg0X1PQJtII OwCBJ8yVU9mN5ylTdscoei bGVmdDsgdmVydGljYWwtYW wyK494KXTp oZleXLEdsT3wICPppHQygN pgFY2qSDYsjjtpUuUKAbAT HvkeFOBDMGNDFmFHSZ62BL 93kPDfj6O9 qMU8P1TvELIzvetpljbdjX D8UNInSLJflX41eCSvNTzx Bu1bj4T0a897ROQgHRLguY 12Iy8rtOxq GCNbcLDHzP6jojzhw5stsx qqFxAhMPWuKKb9LEg8XAUl iPnkEmNyOVV1VrR0JLY8pU JmuT8zbDlu rerzuQ6wXmy+MDUvMTEvMT k5MXflxTY+HUEfYPJ6rMvt DPcgNORhzO4wTWEjW5n2Iq CwSkP7IAnp H1CpFSHedvwlMr04aH2uMo ZjSiA2CRkfJ7KbeyF2IIGt wUDgOEbdXDO2A62tu3R1NE MwMDAwMDA7 bDJ8yF5taFjmgrehlBXdfP tfkaYrxKfjNClvQWjkC055 ZEMxqPwxVuU6EKilNURlAS 89DI40iXLo b2H7mVP3W8EkCHXhclkimj aqzRS2ATObDCVdpS60cKFe GShgYl8wx6G3b391QBWbSJ WizV13Ki3e yFnoHBDxjFYYvZ9udifop3 qwnnutUyBoPUQvUEf6FVm1 TQCceTjbEjUlFNV6SlB5ZP O1jRKdzY2g sMpcilxmrS4wFlj+TWFsZT wvdGQ+ZEPySYU9gHwtAPgj WWYomA1eQHDiU1a3TwLoDm D6GTyyB5Ml DSJokmvdYz88iC0kVhXjAp F9DQhcK9WpyvC2QTJljYYb FZxiILL3T36sm0U4ZIHzBH NfTBL9gNF5 uM7aeWyveamhuAKwkGttan TvoEmpXMvyDIpsC388RGKa wXizRq57iSNrrRpxukT1P7 RkPjwvdHI+ IO97UZLeUW00nEWmgKTtu3 weuZg7QhQtYDVaWMS6wMii AOjtj5NgGAInA38xbMSof4 U6UUWrbJct bBPbRnUrpEP8jD9oBOeptw zni4wsklcxEvqzc4tiau79 jO51X24aAOqiQXRbCQBeSC UiIHZhbGln pe7ksD8iDx1+WQWayUN4nM B2cO6kSrQcCkO0VZnfL082 EvAwiXBmJnpfa2dwo3aqyE s6EbCrAJBx pcTszVfqSAB5u6RpJj76H9 9sIHdpZHRoPSIyMCUiIHZh sMztwk4frQ4tXi8+PC9jb2 pzob89oL03 dHI+VTYdUQV6vPqrHMajMU AwhO0eKHnvOcV7EGJvOrPc jH27xMFdDFxbGg0zeJlqnU ecGE7pJZVd heygh185AjIrt0hnIABgfM ViFKlvCGE3C37eq8N2NMEc CMKrBPY6rQC0aJ7xpLcfkd ogbGVmdDsg bpHduIjvWChbZCwdX431HH BlxGqaIeGikSLlH0dpyzBB RD1oIayuwBW+SQCcVTF9vY xlPSdwYWRk pP7pBTPqG5v8XjGaYqB2YD kqM8WsexQ9RLEebYNiVUJj iGLScE4bcgbkd3wybqzeBp AwMDAwMDt0 OXk7TONtxHnhOmTpXBC5Dd B0IHA4rWNswQ6dgKppmyvt kK6zHrf+RklOOjwvdGQ+PH VjXNS9nAqd OEovKBSjyK4dYITxS5w8Fm ZxJmN1XGrrS4ZxoqY4FUWl pNWhHWEmbMNHgY2awzpfr4 xvcjogIzAw KWTmWFl0VTa2XDPemFemDz OrLKD7SpA8OAC5vSHobN8c kWayjqgcrI9hLiy+TVJOOj wvdGQ+PHRk QBY6uJbjACjcCXZjdU7hES EkZ8a6PgDvBlM1HErlX7Mt ozM8XYSrlPJnBFHmgNIGmC 1lrruyd1vb ufhdJvRgCCKgMBt3FBd6BN KigXdpOxHpXPI6VgL3JQF1 fVQtoS3bwLuqhtvrhG9zJu c+RJO4AHG3 EO53PQ07E8PtRvkqoEJfbZ U+PHRhYmxlIHdpZHRoPScx NDJfKiIitJneGZ4tOk1iXH VyLWNvbGxh cHNl (more content not included)... Normal [facility] Outside Recordson 01-29-2022 Outside Records [id number]#1. 00CD:[address] [facility] Auto Diffon 01-28-2022 Basophils/100 WBC (Bld) 1.0 % Normal 0.0-2.0 [facility] Comment on above: Order Comment: Order Added by Discern Expert. Performed By: #### 2 956274, 3145909, 3274436, [id number] ####[address] [address] Basophils/Leukocytes Auto (Bld) [Pure # fraction] 0.0 E9/L Normal 0.0-0.2 [facility] Comment on above: Order Comment: Order Added by Discern Expert. Performed By: #### 2 468900, 3933599, 7971000, [id number] ####[address] [address] Eosinophils/100 WBC (Bld) 3.9 % Normal 0.0-8.0 [facility] Comment on above: Order Comment: Order Added by Discern Expert. Performed By: #### 2 709035, 7605457, 9144886, [id number] ####[address] [address] Eosinophils/Leukocyte s Auto (Bld) [Pure # fraction] 0.2 E9/L Normal 0.0-0.5 [facility] Comment on above: Order Comment: Order Added by Discern Expert. Performed By: #### 2 980070, 2327480, 8706215, [id number] ####[address] [address] Lymphocytes/100 WBC (Bld) 27.4 % Normal 14.0-50.0 [facility] Comment on above: Order Comment: Order Added by Discern Expert. Performed By: #### 2 035639, 3700194, 6198211, 72575233 ####[address] [address] Lymphocytes/Leukocyte s Auto (Bld) [Pure # fraction] 1.3 E9/L Normal 1.0-4.0 [facility] Comment on above: Order Comment: Order Added by Discern Expert. Performed By: #### 2 664420, 5234230, 9058086, 66745781 ####[address] [address] Monocytes/100 WBC (Bld) 8.1 % Normal 4.0-14.0 [facility] Comment on above: Order Comment: Order Added by Luis Expert. Performed By: #### 2 806357, 2805392, 1479292, 93727294 ####[address] [address] Monocytes/Leukocytes Auto (Bld) [Pure # fraction] 0.4 E9/L Normal 0.2-1.0 [facility] Comment on above: Order Comment: Order Added by Luis Expert. Performed By: #### 2 915993, 5406486, 2771498, 73486153 ####[address] [address] Neutrophils/100 WBC (Bld) 59.6 % Normal 36.0-75.0 [facility] Comment on above: Order Comment: Order Added by Luis Expert. Performed By: #### 2 014058, 2505612, 7636181, 85710853 ####[address] [address] Neutrophils/Leukocyte s Auto (Bld) [Pure # fraction] 2.9 E9/L Normal 2.0-7.5 [facility] Comment on above: Order Comment: Order Added by Luis Expert. Performed By: #### 2 034788, 4299274, 1858623, 35342462 ####[place] [address] [place] [address] BMPon 01-28-2022 Anion gap [Moles/Vol] 15 mmol/L Normal 6-[address] [facility] Comment on above: Performed By: #### 2 839108, 1503341, 3626211, 58216194 ####[facility] [address] [place] [address] Calcium [Mass/Vol] 9.2 mg/dL Normal 8.9-11.1 [facility] Comment on above: Performed By: #### 2 532387, 6048561, 6211090, [id number] ####[facility] [address] [place] [address] Chloride [Moles/Vol] 100 mmol/L Low 101-[address] [facility] Comment on above: Performed By: #### 2 010372, 5590396, 0735703, [id number] ####[facility] [address] [place] [address] CO2 [Moles/Vol] 24 mmol/L Normal 21-31 [facility] Comment on above: Performed By: #### 2 581132, 4260596, 5436921, 35274665 ####[facility] [address] [place] [address] Creatinine [Mass/Vol] 0.8 mg/dL Normal 0.5-1.[address] [facility] Comment on above: Performed By: #### 2 064775, 6736418, 8683936, [id number] ####[facility] [address] [place] [address] Glucose [Mass/Vol] 260 mg/dL High 55-199 [facility] Comment on above: Result Comment: If t his glucose result represents a fasting glucose, interpretation should refer to the following reference range: 55-99 mg/dL Performed By: #### 2 664609, 4215899, 3001490, 39354793 ####[facility] [address] [place] [address] Potassium [Moles/Vol] 4.4 mmol/L Normal 3.5-5.[address] [facility] Comment on above: Performed By: #### 2 083045, 1504307, 3387268, 82171211 ####[facility] [address] [place] [address] Sodium [Moles/Vol] 135 mmol/L Normal 135-145 [facility] Comment on above: Performed By: #### 2 649308, 3211916, 0552073, 80476206 ####[facility] [address] [place] [address] Urea nitrogen [Mass/Vol] 13 mg/dL Normal 5-21 [facility] Comment on above: Performed By: #### 2 675820, 6768456, 0958579, [id number] ####[facility] [address] [place] [address] Urea nitrogen/Creatinine [Mass ratio] 16 No Units Normal 10-20 [facility] Comment on above: Performed By: #### 2 644869, 1108695, 8363996, [id number] ####[facility] [address] [place] [address] CBC w/ Auto Diffon Erythrocyte distribution width (RBC) [Ratio] 13.9 % Normal 10.9-14.2 [facility] Comment on above: Performed By: #### 2 612371, 9215120, 0617451, [id number] ####[address] [place] [address] Hematocrit (Bld) [Volume fraction] 39.6 % Normal 37.7-49.0 [facility] Comment on above: Performed By: #### 2 585377, 2256101, 0663714, [id number] ####[facility] [address] [place] [address] Hemoglobin (Bld) [Mass/Vol] 13.5 g/dL Normal 13.5-17.5 [facility] Comment on above: Performed By: #### 2 242992, 0825433, 6126999, [id number] ####[facility] [address] [place] [address] MCH (RBC) [Entitic mass] 30.7 pg Normal 27.0-34.0 [facility] Comment on above: Performed By: #### 2 925087, 6921688, 8435947, [id number] ####[address] [address] MCHC (RBC) [Mass/Vol] 34.2 g/dL Normal 31.4-36.[address] [facility] Comment on above: Performed By: #### 2 907376, 7265857, 1577863, [id number] ####[place] [id number] MCV (RBC) [Entitic vol] 89.7 fL Normal 80.0-100.0 [facility] Comment on above: Performed By: #### 2 199406, 9371856, 6300170, [id number] ####[address] [address] Platelet mean volume (Bld) [Entitic vol] 8.9 fL Normal 6.4-10.8 [facility] Comment on above: Performed By: #### 2 094685, 5457148, 7290585, [id number] ####[address] [address] Platelets (Bld) [#/Vol] 153.0 E9/L Normal 150.0-500.0 [facility] Comment on above: Performed By: #### 2 747302, 5960104, 4719079, [id number] ####[address] [address] RBC (Bld) [#/Vol] 4.4 E12/L Normal 4.3-5.9 [facility] Comment on above: Performed By: #### 2 109804, 3330255, 9065183, [id number] ####[address] [address] WBC corrected for nucl RBC Auto (Bld) [#/Vol] 4.9 E9/L Normal 4.0-11.0 [facility] Comment on above: Performed By: #### 2 835105, 6965237, 7341986, [id number] ####[facility] [address] [place] [address] CHEMISTRYOrdered By: SYSTEM SYSTEM on 01-28-2022 Anion [...] rate/Area] mL/min/1.73 m2 Normal >=59mL/min/1. 73 m2 [facility] Chem S Glucose [Mass/Vol] 260 mg/dL High [...] [facility] Coding Summary.on 01-28-2022 Coding Summary. CD:[id number] Gh 0bWw+PGhlYWQ+TC6QFNCoE 13vxKHywQ3TQ3yWCK5CIKH BFIZRSG3LFV5fdAJ2BXdzH 2VybiAv MjhqoTQeUG93UFt4GKX0rX siVCabvA5gbUIbA9s6OxXu UV55jB62SIfaBPWhJbE4Px ZpbjsgbWFy X1nvFbObdDSgMuu+PHRhYm xlIHdpZHRoPScxMDAlJyBz tItxYC3aGp7mWILhAYCpaN xhcHNlOiBj f7pnCBXfPQxbXA3pyVlmY5 MjfHP5OTImb1k3Oa51sFL+ SEBnQHF3wZtcYMdvl443Km Llb2wlNMB8 qMJyLHqmKLN1B55gx1P4BS YyDKYbCHJ4uNQ0bG6azAua qjxgD7TseJBbQgI0PJJ1aV PzyD2oyIqx ojsfhC7uHmw+L27FTV8EQR TBAL3FGqx0E1XdQhfscVK+ GE03YNFyXW20uZFzmMBwd4 gmsWm6UnWh QKKiMYP6wIbsKIszi4YcFK VbL56qgCBwk3D1VPQplQmz yXGtFaAttRG3rT7wTTdizw pbk5joyhes Pptme5gfzb14jD18V22qPZ wgYXYkCGR5XBWfUFBntQry qo2jrO4cMb4+HRkjf3plx7 bmdVs2NoKy DGReazKefZuuNFQ0w3MrUg 58R6GkxXnwi5OiMyk8sa52 bBNxn1C6xGA1JVyxZWPtlN 6wAIidYcK5 CAHxSgBbnG38pFHkXMtaGs 8pdAoyqNmbOR6jJGCthqvt GQTojD7zUKGfoNOcgRvrHJ 4wNTBpbjtm c639YvHoFXF0SIPioEGxK4 GiuN3sWsLeNSGmUJCfH1Ij jGFjZHbbU755NWsrPgU1QK YomnTwM0Sa RNRixIoiKpC4s0H4Pi3Oj6 MrfmsvFKW2FPquRUJ8QlSl VnBlKgY0P1MqHzp3PIWqhS myUL3mC8Hk AQVpqwklyethtKN2JFKqEP ZlwS00dDTkRPbtTf2il8F1 y380CXNbTXPqxN04Jt3gdY ogMTBwdCBU uQ7wynwca0pgaeoeTmYbPR JtQNn0XAf1AAQmgEitQpVn RCC2EqG8OGC5dUVefF4uwU tytmfayH7u Oyc+Z62jbX8mPTG0VCO7gz vuPPRxzwHwAB44DL69G9Qr PjwvdGFibGU+PGRpdiBzdH qaUD3oBaKd m2bdl4YvCTmaK3YwAYMdIU vfXat7APTmBEA8gCS6uI6l OPPkWDnjn8Q2mST2S0Ddgh Nstt8wp9xv VNCeVWreK38hePPgx5S5UG UgmAK9ZIYwdUxsEbRvgR41 Oyc+PSFwxBgon4SqJlznt0 cdx1ezdBe5 GrUzCEHctfEypQdrOTF0o2 XuTn04W93qVDruAGDjWZEh GUMaJNAemYerkn7riY0zAh 8+PGNvbCB3 jMP5zI7zIPCuYiX6YZhcT9 13DsPmpQTrVtvam3ufz5bc gIz5DbSmOQAwdyOusAcmAD R8p2YsDt68 O56vTFuwJONvXIGkPILhZH JkxPxzsg2ndB6cBk5+PC9j d6jvtf63sD01lLI+PHRkIH E6wDbwEIlh IGVfvU3dINegUcR0ZVIbLx EfyV31bWZjJQspZu9prRpl sThiNF3vROGvkdnwu195Iv Hcz9joXXXm oIEmFCkhFOY3K21ot3A0PC TbIFLaNJD1fNJ3kM0lvUjt bjogbGVmdDsgdmVydGljYW btZCxvY031 IHRvcDsnPlBhdGllbnQgTm NbIXx8Q5PkHzk3AUHgzIzy PP1ofJLaYGpnDe8irSswaQ apCZ5lCEHv keqrf986IhCkt5yuEGYfjL IwNYxbPDV4N08ln3E5FMFq YIYkGSC3iDN1fW6xuYhcgx ogbGVmdDsg yhIkzIztAWjeTFmvB950JQ RvcDsnPkJpcnRoIERhdGU6 UQ53SW82xANtk4C0wGL5R9 BhZGRpbmct wudkhGK4QIIkAGMtoC00Tc 7erUtuWe8rLYTnSRZ8SFNq zJDtH3RdaD5lPqKpLIBrQQ WaR6OwaUQe HSfdM234BKleSmL4EANhae WwH5MjVMBabNjfRbO5p3M5 Sc1JS5L7ET06EH24nXBom2 V9gKZ9H0Up RZQxqvmdhduycKE6OAQfYR NlbR87Ql1ctLhiXn7kSBKs GCF4PNOtqROzH9SffY6uPf AjMDAwMDAw P3TgjZXqTWbsK365JVkgPy D1KGAwelLsS8WcYIKfhDsq BbZ0t2N3Lu4IZAf3NO37DE 98qVVnx0Z1 zPC8L7SrYMYwmsqkteufbJ Q6HVAiGEHgqP96Vc4lwUkg Yw9nIIVdGYC8KDRtkNFbW4 AoiH4kPbXy PSWyRUYgS4DpuJMsQQleN9 80HEoxUzE2VHDxzqPnG6He OTOpzWuxOxD1q9A4Gu9BPR GiVI90FKR8 yCN2HW32OZ19M9UzKcvhkX FibGU+PHRhYmxlIHdpZHRo TZgiQGSyFyNcvRhxHK0qHt 9yZGVyLWNv aNuurDWyVsTvu1ugWIWvMM ynCU9njXowB4DwjFF5JGZe l8z5Hk20I35qP4AndVK+PG VxrPN4nKR8 nN4tWlNwEvF2LKhdJ955Ak SkbALzGqxhv5wtg4bhpSr9 QqZ3RWLjozSwrQptJQG8k0 DvEo32H51y IHdpZHRoPSIxNSUiIHZhbG vsqf0twH8yYo7+PGNvbCB3 kNN4yW8vRcVnYmW1CQdrY2 49InRvcCIv Ecwhl8xkd1eucWi6WhZtMJ FsegMwmXxsRTU6l2OgSh58 V4GusFktt5JyEva2pq72qV Lau8V4oIH2 K2YmRIBebumwyHJxmOgmJQ 7aNBDfndfgYUXwrC8dQNSn D8p4ScFsRxV6ZQttA2Kvoh R2UJWccNPs HDtwQRO4D93sd5L8WIHeZX GcPWG4iXS7yZ5crOufsiqq bGVmdDsgdmVydGljYWwtYW vnM685WJAk eGcxAHBtzE8bXCOsnUCkeX laWL8rTSTeudaiNiTVNvAZ DtpdVNAVBHXWDyKIDZ14KS 80uUDdv4Y4 eTY6K1TvMOJhrmidkpipvO U2GUXqPNWytJ85bTLlKJgu Bh9ey6N1x548WIPpGWHpkW 75Ve4gjLse PQLrvLTGgZ1ewksbh1swym qnFbOyUOKxCGk8IHa7IXXw lAnaSxObDWL3SeC2XWM3rB CbrA1ljWjd jqwojC0fUzx+MDUvMTEvMT p4NNnjrQT+ZHRzFTJ1nCvy GPclFPFqkC5bBIHpV0e9Ga UxCmJ6OXqw Y2WhOPUuaxvoPu89tF1vCq WkJfX6UUvlY7KmiuS3FYPf iNHuEQdoSFA9O10nl9X3IL MwMDAwMDA7 cEJ4jT0cxBcsvtkugEOldV ikbfChnIhbVMhcFEghM518 KGPxeOfbBaL4DPgzRAHpJH 74TY06tKAt t8D9gEJ0K5DeZPUzfsuteo nrzYI5UXHmMXSsqW54fOTh ZNhmPx1jh2X6h782POKcWD LegN63Ur5x dRfxYLEwxPLPdJ3mbzwvl9 nmjeioRvAtHFJqSYq6NCx4 BJRzgSvmBjDsBWK4GzP3IU Z1uDJhpE3b hSdnprvbtZ1bEdz+TWFsZT wvdGQ+SWKdCHQ5kWtvLFja GYOaqL1kVCSkM2r4YbAcTd P3WQtlU9Kq IHAbduktEt13nC0hRoVtKg N8LPsaO8KgvlX8FZLbgHOe ZGhnFSK0C49da5F7OXUxLF HvHMN2cIH9 tM7aeKpxiswntKYvqLvgpx NqmKlwCTsaCOpbZ912ZOBb dDmlZx90xMKvcZgduxD1W2 RkPjwvdHI+ XD76YTTrOX91sXLqbLCvc9 luxKe6UqCgJSAcWHQ7kGkn WWppo4NiUDZcH50ssFOii5 I3ZYQmhAdi yAPiAfLkmFP6mV6uZVctoa xpt4uiedkyMvipp8pcyo08 mQ65A33tYRurPPDjCUYpZZ UiIHZhbGln ta0twO4wSm5+JPSvtQO5xB G5yE0uYpFvNaF7HAthO942 WeYglCVfElmef7xln0ahuW d5QiYwPLDa erMqeOznIQP1d4OvZk52U0 9sIHdpZHRoPSIyMCUiIHZh vMhoxi4wlO5hTq7+PC9jb2 qwid08lX18 dHI+FNGoDXM4wQyuSDswFA YrpS7tAQcmVoG2QUZcGjJm sK88bWKgYHafUm9ihKoteG neIV0wHVRr ikpjc062XrMiy1hfQCBhoP RfXFujLET0T87dg7O2DASd JLMlUYP2pFY8bZ7xzLpghg ogbGVmdDsg lhWtgYtaFUdkLFdgB360AT GloPkaKeRlbVVeZ8apxiIW NE0lFrludUO+YZPjAPH6bG xlPSdwYWRk dP2bOPXsO9k5BxBjAcN5MC iqB1IotgF4VJMrvDPuNHGe qROHlC4csnuoz1sijpclOq AwMDAwMDt0 QWi5WNHyjWevEuKbVUT7Hj A5JRA7qNLqnO2snTsyxowo hV3dJlb+RklOOjwvdGQ+PH TcDJS1kBvj QVkxWSNeeR1aSCSuC4r2Nc CzPsB5BWbpW4PutqK0BLFl zPUwXAOusVUTaR5tgogcz4 xvcjogIzAw WCCuXYi4OHt6DCJtwCltVn OtONY9LvT8NED0eGDsrK0j jDldiurrcG2vGwe+TVJOOj wvdGQ+PHRk OTJ6jOatQBzuNNHcnS9rBR OlP8c2CrLvPmF6XEsrG4Oq anN6EDUbmGPmDPPytDWAgR 4cpcdmv7wu werdWjVtAFStKEn3GKi3RR RmvJwrPjXbERF3HmL9OEA9 iBRdnS9sdFbtujrlnB7gTz c+CTM9NHM9 DK38PO61Y1KyGbobdXRgsD U+PHRhYmxlIHdpZHRoPScx ODVfGdTzdDvqFI3rIs2jSW VyLWNvbGxh cHNl (more content not included)... Normal [facility] Consent for Treatmenton 12-31 Consent for Treatment [id number]#1.0 0CD:[address] [facility] HEMATOLOGYOrdered By: SYSTEM SYSTEM on 01-28-2022 [...] MDRD (S/P/Bld) [Vol rate/Area] mL/min/{1.73_m2} Normal >=59 [facility] Comment on above: Order Comment: Order added by Discern Expert. Result Comment: eGFR is race adjusted. AA=. Performed By: #### 2 [id number], [id number] ####[address] [address] GFR/1.73 sq M.predicted among non-blacks MDRD (S/P/Bld) [Vol rate/Area] mL/min/{1.73_m2} Normal >=59 [facility] Comment on above: Order Comment: Order added by Discern Expert. Result Comment: Correspondence Transcriber neil kidney disease could be indicated at eGFR's of less than 60 mL/min/1.73m2. Kidney failure is indicated at less than 15 mL/min/1.73m2. Performed By: #### 2 [id number], [id number] ####[facility] [address] [place] [address] Consent for Procedure/Surger yon 01-27-2022 Consent for Procedure/Surgery [id number]#1.0 0CD:[address] [facility] Progress Note-Physicianon Progress Note-Physician [id number]#1.0 0CD:127 [facility] Pre-Certification Formon Pre-Certification Form [id number]#1.0 0CD:127 [facility] Coding Summary.on 01-23-2022 Coding Summary. CD:[id number]:[id number] Gh 0bWw+PGhlYWQ+SG6RTQCkP 36quDEoyP5RW4qPIH0BRMZ WYRPXIJ6UBU7poTT5RXibD 2VybiAv PiskgRTcTD61OKm1AEX3iV qiXMspfG2poIRvM8s7NtGk MC42hD77CLfhLXFxCpA1Wv ZpbjsgbWFy X7miYpLvjSFnDgo+PHRhYm xlIHdpZHRoPScxMDAlJyBz eYudLO9cDa7qPKZsEDGcqT xhcHNlOiBj f1opXKZyESbeOL3nkDvuY0 VlaVG1KEFlr4j9Ip78eYU+ CCIvOEU9tTzxQMbdh494Pf Hif2bcENN3 eWVbELkdPIA7R82ld9A5FF BvEXZxBMW9nCX4bW9mjPer mnscR3HfaDDsIwH6WTX2kQ DolG6ngWbw isfeaD5zEvl+L44ABP1MOM VVPT3DUzh2W8YcLsticFS+ AH88OHEgYH79lYMkvWTpk9 ygmKh1FeEp EBSwBTA6vKmfUDbtw0WgAZ RxH80xoMAwe8Z7LNGylPen wBQzLuJpqAN6vQ3aXQxbfj xga2gnlben Nuhfs0daos06jJ77B12oIE whCHLaQCA2FTIfFVRngFrd ff7kdM8zNo6+IUjhk2rlz5 ayfDj6UxDf BKLdazVnoBioYGY7d1BcWn 83R9TyvSnoz3TuJpy8ex95 rPKwz2V3cML3DVftWBIvcH 2rJHwvKxC0 NKFtXhDbyE84cIUtFBtdYq 9wjKafhSyyJN4cKQCwbpde DZIpqV0rDVWwoIGpwAazKJ 4wNTBpbjtm j815KmGhWXD4SAVjtSFeC9 LigO6qEfExLCYfZQZjV4Zc dGHgZHjgK562IFerAtR4DG KxykMuA1Nu OJBeeRoyTiO7c4G0Fm4Yp1 JwkkufNNF6RSaqZAL8SoT3 DnHfXcR0X8BnDki6KKRgjQ lgXZ6yO4Mc EBJjnomiibiizYE0NZNbOE OugS47uMCnXVnfXi2dt9P4 q085ZQFpSCJrlD81Jj4ebH ogMTBwdCBU aT4cncfov2ktuoesTiKbFZ ElQXk3QYu2USOynDezRrPt VFY6WiM7QRP9oAFbkJ0jmL eltfurlV6k Oyc+R82snK1kVGT2XCI7ft qoIZNelhDqLD28FC13B8Hh PjwvdGFibGU+PGRpdiBzdH alJE6zXzSm i8njo0FgWHxxI9OjZQSiYT njNxa3DZMbQAG0pNW7zA3a YLMiQKiet6U1pEN5D8Uvtg Accb4wv2ws QXZbDUygK19weZOkv5F7YY BpfMT8VNYzxHncYwVnbD37 Oyc+HDQvmRuqv3NvPrplz0 nmc9eftGw6 ToUeDRHymmStvCljSSF8j1 ZkUr68C45zJYmpCKGoVOFx HKFgPXUekEowvj1vlX9zGl 8+PGNvbCB3 lLD1aL8vRFCgTfQ0OJfhU9 76MpYtdNDhTdxkc2kpx5vt iKm4DjSaNLJkxaFqdNfsDN Q6c4NoKy43 N55nKFlfCTSiOIYfGAJbDN TeaIjqbq0qjT0qDr9+PC9j i5lkib35zW72uWB+PHRkIH M6jOccMCev AMWovT8vSXnbGzE2YXRtUz QdcU36bPDmKMtmZs7tqBwm wNxkBG7mERSbstebo383Tb Dto9asAFTf zDClFIubSIF9T15sp6I2VB OmLFFeJDH1sJJ5uE9amRhm bjogbGVmdDsgdmVydGljYW snOHryK380 IHRvcDsnPlBhdGllbnQgTm ZrOXd3R4CiFzm5ZMLxrOkc BK9oxVVdUZlmVd5jdFpltM vjZG1aVTCe uetfy656MdMfk8bnVWQeaX XpAMmcISA9Q74rg2A9RRGa UUHcCPC9iNE1yS0byHaluz ogbGVmdDsg ltGbxJvvPDwuGWokC472TM RvcDsnPkJpcnRoIERhdGU6 CS10SI18iJNkm1T3iSF4A1 BhZGRpbmct lnvuwNU2BDOvMXHtkG67Gu 5lxKcaJv1eWKMaRMJ7TDTg mENvY0YahK2gMvOfHIZeGN EyF1VscLYd HElgC448BWskWaT1HMEzes WcO7AcSZCarJnySmW2s1N9 Dz2AS3Y6AM66BK61eFChd1 N8xLA5B6Gz GUKrsfwrnhlviTZ6KWJcFD YvqY98Xk4xzPbhBa1iLOOx YXP1WQVfcLUeN9AspB3jVe AjMDAwMDAw Z3IiiJMiACbxC868JIygUc H6NWZgvyTyF0ElXPZxnOfw FsM5b2V6Mo6VIYm0CA52RU 09hKQks7W6 bLK1T9YjAYLwrihcpbiuoO S4GJWxEVYqhK65Nb2nhLbw Gf8vDIKoUVK2PRKftULhR4 RhdQ1mJzIb VMYmSQTvJ2UduABpBHbwE2 14HPxjNuK1RBYxrwFdU4Cs YWHwkUpwQpK3o3R7Jh6AZH MkXI11HTH2 lGM3TI47HJ66V5WvKebbaU FibGU+PHRhYmxlIHdpZHRo SGowSEGnEhEltYdyAW3yJc 9yZGVyLWNv xVfxbQRkMmOeq1arIVNpDI yjOZ9pmPqfE1NckTM5BSKc g2u2Im68W05wU8XkiTJ+PG RdgDR5wLC6 zE6zXaEqElI5JDsyD899Vr VisKEhVbamy2zct5myxXa7 PyA3CKHznyOcfMgoJTJ5d5 HzYb76F57h IHdpZHRoPSIxNSUiIHZhbG lsik8msP6xHy9+PGNvbCB3 zXI2lQ6mYaBrDgP1RTgvB2 49InRvcCIv Oiwsf4qbj1pcnTl0QaTnLU JjudLtbBouZLC6v4YfQi30 M6AboZkpv9BlYyt6de04aL Kvh3E3zSN6 J1BaLLWzsqrzxGIqaFzzQT 2nBBZdpocfJAGbgN0eVNOt N0k8OnVdGmF1TUimU4Dlou G0ZIShyGNa EHifCSW1Y65aw2Z6PLUqMF QpSZA9iRM4nM2ytKdnhtfd bGVmdDsgdmVydGljYWwtYW vpF107XAMd xVqeBHPptP0aSMOjbAUxgV puQX7tVLGqgzflFsXPCwLA UckpHKYOGKXYNyOJDC55ZU 29eDEca9V3 rDJ8S5ZyCRXfwvaxfefncU O3QTXeDOMlnL04dGRgRAvi Ai2yz6K1s363ZWJrQVKvnO 77Dt9jnIqg XSQqlOFPwW3etgsla3azwi mdTnUvPNReAIj7RCb2BREr qGpqTlWvXZF6RwG5XCP2gR VraB9lbQyg mkwxgY1eHva+MDUvMTEvMT f0TJqqeGP+NFHdMCO2iTac AEwcKICqeR6jUYJnK7k2Rr VjWeA6CWsn C4CbGRQovxnuJa52uR0mBc CdCkU7PHosF3YwmrI0OTZl jBYvMKawMFF7B18in0O6MX MwMDAwMDA7 wYH0uB5dbXlqzbhwvTLdhV zmvqUmgPodFWrmTCgwW964 ZJXvoXznOjV5DPthHUByOY 11FG10iFFz w4I2mOJ9N0EnDLTngnbffr wzdCQ4KQAoWUHhuC08kDRb WHojBx6qy1E3f857BXDnOF IydH52Du4j hWerRGTtdZUKbT9fqsvns2 nvabgtKuFkDRQuGGl1DEq6 TMTkhFkiHkJtOOT8OxN4AX P8pQYkeV5m mTqrxntrpF2uVav+TWFsZT wvdGQ+TCTpZUW6lTaoJWbg VWEyvP6hADVaG4x1AzBsVa V5OVfsI3Cp YPBkdyxuUt53kZ3aGbQnLd P0RHlrJ4IwqdY9TPCcpJZl SWnxYLY5Y88lf1G3VPRnPJ VyLMF8tXY6 qF1oaXuvumjfuXFapWrzxy YioSgyVRflQVcvN639CQAm vLqvUbGqP6DycqejJlcbkE Q+IW11td34 P8TjCbxgNqb5IHDqQVC2vN P1zZ6qWNAdGLavq7R6lFC0 I1ZgwmEvyh7nw5ilWFTyAS nxK68vxTLi x2K5VIFzoUM4IRVqdJpkIb LuwP59Zel+IPSeoBqsu9Ng Nuaok3kxn4zzsNm4IyTfHG IgdmFsaWdu WQG6a7IkTo38T73wHMnePV XnXHEtWQXfOIKlvXbxfs6j uL5wOi7+APJvjZO4mXA2kU 5fRmSlSiZ0 OUekC459EvDjsTQnGlbuc9 quy9nciTu8LoJcJVXauiNl lDzjDUQ3p6SdZy12X6XedS uha4RjHmr4 bx10jVRfb9E2rEG4V1NiAG VemaxrzBMydVmwXY2tPKCq vlyhNLEofJ5jGNXiL0v7Ep ClCqT6NXcw H2IaoyP6MINrjZNvZJDuuX XKjX9hpqpvd1ljnyxpZmUn BBKrOJs5VLd4GFSnqAfdYd SmQVX6OmX2 YFH0eKFbuG6dpDariesavA 9wOyc+JOy5f8lxoNYiRP7m rIV5QD75ZR18tRRus5Y2mR M3D1ApHACl hekowhohfEP0SEMjXTRzmL 24Nk2wcZizJg1yWAMfIVC7 WDCfnHUiF3BwhA1aYlReXF YzAASaP7Gm wNLeOVkxP014OWjaTmC5FH VplrCnN9ZaZWGlnPbdTrA7 w6W1Pn3DDR52RM28LI78aW Otp4T6pQZ4 Y9RlKZYcuvcysryeeRT4EH NwJQRunZ77Kl2qsHinSs9f ZDMcNYE5UFCvyJKrK5FqoU 9yOiAjMDAw JIUvF3FlzAThGGpqK181FZ abTpC2LUEwqnXlE5CbMJFs rZcdTvJ7c0F8Zd5TKg16ED 48PX10bSFj k2C3sXJ3F2CwUDEunnlojy gslJS4WVHgQOAtbU28Pp3x sVczKa6dQSLgMSB4DGQwjP QlE0EruW9o AkIuWPQwSZSaQ8GsiOXdPK wzQ045YUtuHoT0EQCkmnPe F4IyCIIvcEfcXjX3y2D7Nq 2TMMfctmn3 M1UoZcvehAH+LA88FIMnMG 54xONcmDWtn9eowVw5LcNr VZWrCZB3dXjjODbeg0XrEE KwM44pfNRr c2U6 (more content not included)... Normal [facility] Consent for Treatmenton 12-30 Consent for Treatment [id number]#1.0 0CD:[address] [facility] Heart and Vascular Office/Cl in Noteon 01-23-2022 Heart and Vascular Office/Clinic Note [...] in office. He had echocardiogram performed at [facility], which was normal. He was ordered Event [...] protocol. [1] patient was then referred to [place] and was placed on sotalol followed by [...] with speaking. 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 He is taking and tolerating his medicines well. He has had no exertional chest pain symptoms prior to his COVID infection. 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 His daughter works here at [employer] and was present for his visit. Patient is now her (more content not included)... Normal [facility] Comment on above: Result Comment: Elec tronically Signed By: Camilo STARK, Kushal Galarza\.rita\Date and Time Signed: 01/23/22 14:23 EDT Stress EKG Tracingson 2021 Stress EKG Tracings [id number] 05 [id number]#1. 00CD:[address] [facility] NM Myocardial Spect Part 2on 01-22-2022 [...] Stress Dose (mCi Tc99M Cardiolite): 29.[address] [facility] Consent for Treatmenton 12-30 Consent for Treatment [id number] [id number]#1.0 0CD:[address] [facility] CT CHEST WO CONon 01-19-2022 CT [...] by: LORENA ANTONIO Date: 2022-01-19 17:17 Normal [facility] HEMOGLOBINon 01-19-2022 Hemoglobin (Bld) [Mass/Vol] 13.2 g/dL Critically low 14.0-18.0 [facility] Comment on above: Performed By: #### H GB #### [facility] [address] [place] [address] Dr. Maria T Canela Pre-Certification Formon Pre-Certification Form [id number]#1. 00CD:[address] [facility] TSH - Thyroid Stimulating Ho mckenna, Serumon 12-31-2021 TSH Qn 1.65 m[IU]/L See [facility] o [facility] [address] DO Work Phone: Comment on above: Reference Range: 0.4 4 - 3.98 TSH testing is performed using different testing methodology at [facility] than at other [facility]. Direct result comparisons should only be made within the same method. Tobacco Screening.on 022 Adult depression screening assessment No [facility] [address] DO Work Phone: Fall risk assessment a) No falls within the last year [facility] [address] DO Work Phone: Tobacco use status CP b) No [facility] [employer] DO Work Phone: Outside Recordson 12-30-2021 Outside Records [id number] 20 [id number]#1.0 0CD:127 [facility] Coding Summary.on 12-24-2021 Coding Summary. CD:[id number] Gh 0bWw+PGhlYWQ+TT3OGRXqS 31hdVWulJ3IS2aXDA7QQZM BZWQEFK8QVS4fyIU2EOasO 2VybiAv SzchaTSmYF36WQi8CJD1aY twPCmntN4bhDCdV8g3CdFm CE94eP91KCcmDWAyRhW2Ea ZpbjsgbWFy L4ctRzHkoYMmFau+PHRhYm xlIHdpZHRoPScxMDAlJyBz mYewEL2jJp0gLWDyABDfkY xhcHNlOiBj t5bbCBYwFPzzRO3jfOnhB0 NgiJA6GJFfw5n6Mt24iWR+ LIKsORA0tTcpPTeow250Aa Sqr0vuYVT8 fUSyEWflLVV5K92un9X0XU DiGLWuTYJ0hIK7gD6zxFks njoeU4BfoULqOjC7LYB4hB CnsC9zcEjf jorkoQ2xWca+L32NGT4BHP OWBC4LXnj6J5EhMpyhsHA+ TM19EUGrOQ82pOZgeOIor7 bluAj1PuHc ILFhKPI0oBvvLHmlt2QzZX FfF51czGKjq8Y0ZIBviDqh yXBsSpIeyFE0sD5iXXmret drv7bwuxpc Wcdxa2xmfl00yG47F56qGI myDVSyXXS6AWGaPHWetApu yn3nmS5vGe2+CWjol8vln3 tisYa0EbCm THFtxhRseDlsSLX2k6BvZv 45Z5JyeIyjk1RsCeq3ur71 xFXdb1M8wRX6KNsbABCpnE 4qZDpsLbH0 GBDfUlBfnJ34yNFbFZqmLh 5sfJomtXluHJ3sJSKbieve XGXxtU6vMHUjqCUpuKvrLS 4wNTBpbjtm w227RaNeXNO9GVOscAEfT7 KkyC2fOhRfHFGnYZRhT2Ki cGZhTNtpQ246BOzxMhA3AA YbeuAvN4Ey NUCbeCenNnP6w2W5Hn1Jg8 KbesmiXYH3BXfjRFT7OtR5 LsPpZmZ0O1OcFub0OSSdjR sqFC8cI8Na DHFdapenjbshaKD4NCTuPW BwsF97pRYbRBpqIj7zc4M9 k694GNAtZHKgwZ59Jf8hbF ogMTBwdCBU mH2pxwbxj2xsqbczVjLePQ CnPEb8EWt9ILMsvDzoNnFd PDG9EnZ8MPU0aJWhdP3ihW aukdljiI3j Oyc+A35thY9nOFE4HZI6ce guWIWbzyStGX42XF24Q8Ys PjwvdGFibGU+PGRpdiBzdH gzDN0tWgGy y4pnp7ZsZQspL9QgFNKfXT chHzv7DXKgFKC1xXJ9iK8t PJEpPAkal6A9oGS6J0Mrld Ofhb9ac7yb APDqKEhiN74etVBxy0F2CO PruVI4UKCwdMziYhMekL33 Oyc+OAIyiHnyn2BbUufwt8 zzi1pitIg0 NjEgAMEcljSidWpjHTT1s1 IbBp99F40uQCoiHACkWZNn BWOiERMkbIdcib4glM6sJc 8+PGNvbCB3 vEG6hT5zIGYjWfE7MEmkV6 51AsVdqRMwPmjju0euz5vv lAp6LpGfAISiurQfmDckMB E4r1XcJc43 L16vKUgaRCAxHIKrTDEpZY OhiPwzlp6muV8gNr4+PC9j s9swpf13jM30sXO+PHRkIH P3wLyoJGiu ZUYdfL1qPAqtLsL6EJKeZw UilH11vLOeSZzyGq1qcOjy xYqnZC5nEZTwiwmtw461Bv Xxd1enIYEt zSZqMVrrKDK0Y61gu0L3LE NyWWEaXRZ9eFJ5hG1siTkh bjogbGVmdDsgdmVydGljYW kmDIniT937 IHRvcDsnPlBhdGllbnQgTm CoQSb2P6KfTdk0TZDksAsi SC4ysZMuQLikGx8meKbycA kwJZ9qFLIu kludl990LlSyo4wnPBWytB XtIIkfVYZ6Z60zx3U5KWYo ADVsFOE9wSV4aP9ntDomzu ogbGVmdDsg viYfnHsxYXviRHsvI854BJ RvcDsnPkJpcnRoIERhdGU6 RL53VT24tNWkc3N9qDF0W3 BhZGRpbmct urxhcAQ7DPAfQTGupQ71Ib 1wrYusXx4sGIEqYVP0HYTy hRXfQ6JkxG8mCeNxGWAtJT IhG5BzhMCg OTteX766DWugQsM5ARVvbp YxL8CzRMPtwNqtEsQ9j2N3 He8ZO4A9KG89PX32vQPmf8 V5oQH2Y0Hs MNPatjrpommmrPL3IWBlTJ HxvM68Hp3qiEanZd3cEDJt CIT1CIQplFKfB7ErcE6wFs AjMDAwMDAw L8WzhRCwMAdgZ093FHfySv T9YZEpzkKdF0MrOICqrUao TgV9m6Z8Dw2LIQt3MQ48OA 62eMMei8Y7 aGS4S2QdKAPnusroijenpR C0ACLaDVChzO81Yy1caQfm Lf1aZQSvXWE2IDPjnBKyU1 FopQ3cVsHh GQQpXTAyV2TjcZGqOJfpB9 24FSawYhR1XYVraiVcC0Vb VJEcsGlgNwA2c2U8Ar7KRR NkLF63APM7 fTC6CI27SA46C7KdVdjggW FibGU+PHRhYmxlIHdpZHRo QCelFXVyStWxxAmvXO4kMz 9yZGVyLWNv hPnuvPQmVwObr0ndYNDdBB bdRJ7zrGenM4EonJJ0AVBj s9b7Mx93Z58yC2CwqVJ+PG WpyNZ1nSX2 cV1xDnYgOwP5LBpgX652Cn YzbYHaEfewl0ope2kxmHq4 TiM6ZLZgrhWdhDcrGBH9m7 ThSn04I18p IHdpZHRoPSIxNSUiIHZhbG ltsc2gfY5dBr5+PGNvbCB3 iCM2yG8qNyEqWqV4TGbgZ8 49InRvcCIv Swhmb9pjc5lywXb0RfIzYV GtkiZzlZsvJSH8h3LcSe55 S0NurHpea6MaLtk8az25fC Gun5K5jZI4 T7FzDOQwgedflPRpgWplLU 2pKQBjezxnLUMtnM9tTBHt N3h1ZdUkQjX2FKuaJ7Rfod U9GRBkyILu CQfbOGS2T82fg3A4WJAeDH TdYGO4zZX9jJ7atKlcahss bGVmdDsgdmVydGljYWwtYW dpR498AJCq yKfyRJRjeD0cUTNthOJsbX meEO7rLBEggmdoNdHUArNJ EelgUFGJABLDIvEFWO44OS 51rCYdi1P8 zQE2R4PxFPJtfekgglwbgC F8JKQvKUDxrM99qYGnMKsj Oc2bk2I8y322LMTtYZZgzX 76Vh4evYuk VHNkjPTLuU6hxhieh0zdbj wzOzGpCDNqNCa5VUb1IBBz dSsjBwWzSMC4MoH2QPD6tZ InmT2lzWnw qhyrhI0qZxz+MDUvMTEvMT h0VOmhgBN+OPDqKVF0cUux TAiyQEFtsK3xTMPgM6z7Np IzMcG4PBfu E6KtVRTfzrwqUs29nF2tJm AeLjU2IFsnC9RrghM2LOPk kWAxFDztEUM1D52tv9B2GW MwMDAwMDA7 jMY1iP3joAgbsxbgeKWeaA cynnHqnActDRwbCBvxN879 ZJQraNtqBuI5ROtbSPLhGF 78YC95cVVv d6V3dCD8F9UeFIEyexeyaa ljpDY7TGBaHHYreY39fGPz ZRfgNb7ug7C3z108LMImIQ SulM31He6y mGbySRJdxDOQmO3vnfocn8 wynyfyUePgEHZsOCl1GHg0 GJCnvJsxViQfGXA3EsC9KP P1uWLwhX5f cLsieykzcQ4zXlo+TWFsZT wvdGQ+AJFfFRU7jGsrFJhh GXSwzB1rZRFsE6h2NcIwCl B9AFwfB6Nk PKVxvksfHr42wU8lWbKxYk R4RYdjI9SxiaR0BNIueMZg WJhcVLT2B39pq3E4QKCoGX RuZDF1qRB6 iW6fwQmctntuaOZpvMveze SqkRtyJFavHCicY313UYWo gAujUh29sHOwdTjcozF3A5 RkPjwvdHI+ JZ34QLWqKB10fAWylKZfx7 equSh5ByCjHFTrHQK7eUkt HDlsj2HtXJVoS35qjRQjs4 K1TQNyqUgx hFBpNzWmgDT1uJ3aQHkbbh ccz5jibowjKhzna9vvmv46 lF84Z33tWDfxZUXsYCVqYJ UiIHZhbGln dc8kwS0aVf1+NCChuNQ8fH X4yS9rVrViVlU4NLctT921 ZsKveUDyGhbgb2mtr6wlbK a3SzOeTAKw lsCsfDpwKOU1p7TjKe81W6 9sIHdpZHRoPSIyMCUiIHZh pEseem2etU7yPr0+PC9jb2 fmnw37sC44 dHI+CXAmTRG9vJosXQyuWO GoeD2zYDqrInN8LEQwPaRy gU71nDVnHHsiGp4gjFzbjP ykDQ5sATFs yzaqm070OrEur7ikAKCedC MwQEmgCIP8E72kt1J4TYBc SSPrSCY2lMZ2eN7kwPujqq ogbGVmdDsg zaXarWxaXXgiMJdvW172QR VnuNilLxGptPDiL8wfktOQ BR3iLzoopAL+IFFyOFD6sL xlPSdwYWRk dD4aWVPrR8t7CcEyAlP7QP ndN2YjvyG5SYHcrVSnDHZu zVUEzV1ltptmv3qxkyssGf AwMDAwMDt0 HNe9IMSkbQrqNoFxBPZ8Gg U7GGI5gOAyxZ0faLxrudrv gL9bHsu+RklOOjwvdGQ+PH GuSKS1gHdw JJgsEONsdR7dSMKmQ9e1Fx EfKbR7DWxxX2EcoyN6WXXf dMLyODSqiSUJwQ3abzayu7 xvcjogIzAw QMLpBLq2VGx7DBFwdUaeOj KnZTR3DzW7IMJ7oGHwqC8h fXzffiixaX7eHbf+TVJOOj wvdGQ+PHRk VAI8gLgxQUpvNODrwJ0gXF HgH3o5CbGnNsC1LRkhD7Pl oiF1BVUlmIHaQBGfgMJMlO 0ysvlig1vn ilucToOpJZKuXMd1ILh5ZT SuxSrfMwTmOFI6SgW1LLC4 pMNzjR0joYewbzuadD9pUu c+PGP6AWR3 DX44BX83A4UxAbiemNSabC U+PHRhYmxlIHdpZHRoPScx AWToAuZgxPgfEC0yBk8vLD VyLWNvbGxh cHNl (more content not included)... Normal [facility] Consent for Treatmenton Consent for Treatment [id number] 0CD:[address] [facility] Heart and Vascular Office/Cl inic Noteon [...] in office. He had echocardiogram performed at [facility], which was normal. He was ordered Event [...] with speaking. 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 He is taking and tolerating his medicines well. He has had no exertional chest pain symptoms prior to his COVID infection. 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 His daughter works here at [facility] and was present for his visit. [...] perfusion R (more content not included)... Normal [facility] Comment on above: Result Comment: Elec tronically Signed By: Camilo STARK, Kushal Galarza\.rita\Date and Time Signed: 12/05/21 15:17 EDT Progress Note-Physicianon Progress Note-Physician [id number]. 00CD:[address] [facility] Tobacco Screening.on 021 Fall risk assessment b) One or more fall s in the last year -[facility] [address] DO Work Phone: Tobacco use status CP b) No [facility] [address] DO Work Phone: Tobacco Screening. Yes [facility] 320 DO Work Phone: COVID-19 [facility] 10-05-19 21 SARS-CoV-2 (COVID-19) RNA PATTIE+probe Ql (Unsp spec) Not detected Normal Not Detected [facility] Comment on above: Order Comment: Healt hcare Worker?: N Result Comment: This nucleic acid amplification test was developed and its performance characteristics determined by [employer]. Nucleic acid amplification tests include RT- PCR [...] detected) result in this assay. PERFORMED BY: [facility] [address] [place] [address] PATHOLOGIST SENIOR NET PROGRAMMER SAMEER HARDIN M.D. Performed By: #### C ORONAVIRUS #### [facility] , Vital Signs Date Time Vital Sign Value Performing Clinician Facility 07-17-2024 15:22-0500 Body height 177.8 cm Margret Stevens MD Work Phone: [facility] 07-17-2024 15:22-0500 Body mass index (BMI) [Ratio] 51.65 kg/m2 Margret Stevens MD Work Phone: [facility] 07-17-2024 15:22-0500 Body weight 163.29 kg Margret Stevens MD Work Phone: [facility] 07-17-2024 15:22-0500 Diastolic blood pressure 72 mm[Hg] Margret Stevens MD Work Phone: [facility] 07-17-2024 15:22-0500 Heart rate 68 /min Margret Stevens MD Work Phone: [facility] 07-17-2024 15:22-0500 Systolic blood pressure 126 mm[Hg] Margret Stevens MD Work Phone: [facility] 01-17-2024 15:33-0400 Body height 177.8 cm Margret Stevens MD Work Phone: [facility] 01-17-2024 15:33-0400 Body mass index (BMI) [Ratio] 51.65 kg/m2 Margret Stevens MD Work Phone: [facility] 01-17-2024 15:33-0400 Body weight 163.29 kg Margret Stevens MD Work Phone: [facility] 01-17-2024 15:33-0400 Diastolic blood pressure 84 mm[Hg] Margret Stevens MD Work Phone: [facility] 01-17-2024 15:33-0400 Heart rate 71 /min Margret Stevens MD Work Phone: [facility] 01-17-2024 15:33-0400 Systolic blood pressure 144 mm[Hg] Margret Stevens MD Work Phone: [facility] 12-15-2023 15:21-0400 Body height 177.8 cm Leonel Billy PRODUCE SPECIALIST-AMUSEMENT PARK RIDE MECHANIC Work Phone: [facility] 12-15-2023 15:21-0400 Body mass index (BMI) [Ratio] 51.51 kg/m2 Leonel Billy PRODUCE SPECIALIST-AMUSEMENT PARK RIDE MECHANIC Work Phone: [facility] 12-15-2023 15:21-0400 Body weight 162.84 kg Leonel Billy PRODUCE SPECIALIST-AMUSEMENT PARK RIDE MECHANIC Work Phone: [facility] 12-15-2023 15:21-0400 Diastolic blood pressure 74 mm[Hg] Leonel Billy PRODUCE SPECIALIST-AMUSEMENT PARK RIDE MECHANIC Work Phone: [facility] 12-15-2023 15:21-0400 Heart rate 71 /min Leonel Billy PRODUCE SPECIALIST-AMUSEMENT PARK RIDE MECHANIC Work Phone: [facility] 12-15-2023 15:21-0400 Systolic blood pressure 134 mm[Hg] Leonel Billy PRODUCE SPECIALIST-AMUSEMENT PARK RIDE MECHANIC Work Phone: [facility] 11-10-2023 10:44-0400 Body height 177.[address] 11-10-2023 10:44-0400 Body mass index (BMI) [Ratio] 52.8 kg/m2 [address] 11-10-2023 10:44-0400 Body weight 166.[address] 10-04-2023 13:56-0400 Body height 177.8 cm Margret Stevens MD Work Phone: [facility] 10-04-2023 13:56-0400 Body mass index (BMI) [Ratio] 52.8 kg/m2 Margret Stevens MD Work Phone: [facility] 10-04-2023 13:56-0400 Body weight 166.92 kg Margret Stevens MD Work Phone: [facility] 10-04-2023 13:56-0400 Diastolic blood pressure 64 mm[Hg] Margret Stevens MD Work Phone: [facility] 10-04-2023 13:56-0400 Heart rate 61 /min Margret Stevens MD Work Phone: [facility] 10-04-2023 13:56-0400 Systolic blood pressure 128 mm[Hg] Margret Stevens MD Work Phone: [facility] 07-19-2023 15:30-0500 Body height 177.8 cm Margret Stevens MD Work Phone: [facility] 07-19-2023 15:30-0500 Body mass index (BMI) [Ratio] 52.37 kg/m2 Margret Stevens MD Work Phone: [facility] 07-19-2023 15:30-0500 Body weight 165.56 kg Margret Stevens MD Work Phone: [facility] 07-19-2023 15:30-0500 Diastolic blood pressure 88 mm[Hg] Margret Stevens MD Work Phone: [facility] 07-19-2023 15:30-0500 Heart rate 65 /min Margret Stevens MD Work Phone: [facility] 07-19-2023 15:30-0500 Systolic blood pressure 138 mm[Hg] Margret Stevens MD Work Phone: [facility] 05-07-2023 11:45-0500 Body height 175.26 cm Kelly Jane Other [employer] Other 05-07-2023 11:45-0500 Body mass index (BMI) [Ratio] 53.3 kg/m2 Kelly Jane Other [employer] Other 05-07-2023 11:45-0500 Body temperature 97.2 [degF] Kelly Lucinda Other [employer] Other 05-07-2023 11:45-0500 Body weight 163.75 kg Kelly Lucinda Other [employer] Other 05-07-2023 11:45-0500 Diastolic blood pressure 93 mm[Hg] Kelly Lucinda Other [employer] Other 05-07-2023 11:45-0500 Respiratory rate 18 /min Kelly Lucinda Other [employer] Other 05-07-2023 11:45-0500 SaO2% (BldA) [Mass fraction] 95 % Kelly Lucinda Other [employer] Other 05-07-2023 11:45-0500 Systolic blood pressure 159 mm[Hg] Kelly Lucinda Other [facility] Other 03-08-2023 09:30-0400 Body height 175.26 cm Beena Benítez Other [employer] Other 03-08-2023 09:30-0400 Body mass index (BMI) [Ratio] 55.67 kg/m2 Beena Benítez Other [employer] Other 03-08-2023 09:30-0400 Body weight 171.01 kg Beena Benítez Other [facility] Other 03-08-2023 09:30-0400 Diastolic blood pressure 85 mm[Hg] Beena Benítez Other [facility] Other 03-08-2023 09:30-0400 Systolic blood pressure 145 mm[Hg] Beena Benítez Other [facility] [employer] Other 02-15-2023 14:33-0400 Body height 177.8 cm Beena Benítez Work Phone: [facility] [address] DO Work Phone: 02-15-2023 14:33-0400 Body mass index (BMI) [Ratio] 53.38 kg/m2 Beena Benítez Work Phone: [facility] 250 DO Work Phone: 02-15-2023 14:33-0400 Body surface area Derived from formula 2.72 m2 Beena Benítez Work Phone: [facility] 250 DO Work Phone: 02-15-2023 14:33-0400 Body weight 168.74 kg Beena Benítez Work Phone: [facility] [address] DO Work Phone: 02-15-2023 14:33-0400 Diastolic blood pressure 82 mm[Hg] Beena Benítez Work Phone: [facility] [address] DO Work Phone: 02-15-2023 14:33-0400 Heart rate 64 /min Beena Benítez Work Phone: [facility] [address] DO Work Phone: 02-15-2023 14:33-0400 Systolic blood pressure 138 mm[Hg] Beena Benítez Work Phone: [facility] [address] DO Work Phone: 11-23-2022 17:11-0400 Diastolic blood pressure 84 mm[Hg] Beena Benítez Work Phone: [facility] [address] DO Work Phone: 11-23-2022 17:11-0400 Systolic blood pressure 138 mm[Hg] Beena Benítez Work Phone: [facility] 250 DO Work Phone: 11-23-2022 15:32-0400 Body height 177.8 cm Beena Benítez Work Phone: [facility] [address] DO Work Phone: 11-23-2022 15:32-0400 Body mass index (BMI) [Ratio] 53.95 kg/m2 Beena Benítez Work Phone: [facility] 250 DO Work Phone: 11-23-2022 15:32-0400 Body surface area Derived from formula 2.73 m2 Beena Benítez Work Phone: [facility] 250 DO Work Phone: 11-23-2022 15:32-0400 Body weight 170.55 kg Beena Benítez Work Phone: [facility] [address] DO Work Phone: 11-23-2022 15:32-0400 Diastolic blood pressure 90 mm[Hg] Beena Benítez Work Phone: [facility] 250 DO Work Phone: 11-23-2022 15:32-0400 Heart rate 82 /min Beena Benítez Work Phone: [facility] [address] DO Work Phone: 11-23-2022 15:32-0400 Systolic blood pressure 148 mm[Hg] Beena Benítez Work Phone: [facility] 250 DO Work Phone: 10-05-2022 14:45-0400 Body height 177.8 cm Beena Benítez Work Phone: [facility] 250 DO Work Phone: 10-05-2022 14:45-0400 Body mass index (BMI) [Ratio] 53.81 kg/m2 Beena Benítez Work Phone: [facility] 250 DO Work Phone: 10-05-2022 14:45-0400 Body surface area Derived from formula 2.73 m2 Beena Benítez Work Phone: [facility] 250 DO Work Phone: 10-05-2022 14:45-0400 Body weight 170.1 kg Beena Benítez Work Phone: [facility] 250 DO Work Phone: 10-05-2022 14:45-0400 Diastolic blood pressure 84 mm[Hg] Beena Benítez Work Phone: [facility] 250 DO Work Phone: 10-05-2022 14:45-0400 Heart rate 52 /min Beena Benítez Work Phone: [facility] 250 DO Work Phone: 10-05-2022 14:45-0400 Systolic blood pressure 126 mm[Hg] Beena Benítez Work Phone: [facility] 250 DO Work Phone: 08-17-2022 15:25-0400 Body height 177.8 cm Beena Benítez Work Phone: [facility] 250 DO Work Phone: 08-17-2022 15:25-0400 Body mass index (BMI) [Ratio] 53.38 kg/m2 Beena Benítez Work Phone: [facility] 250 DO Work Phone: 08-17-2022 15:25-0400 Body surface area Derived from formula 2.72 m2 Beena Benítez Work Phone: [facility] 250 DO Work Phone: 08-17-2022 15:25-0400 Body weight 168.74 kg Beena Benítez Work Phone: [facility] 250 DO Work Phone: 08-17-2022 15:25-0400 Diastolic blood pressure 78 mm[Hg] Beena Benítez Work Phone: [facility] 250 DO Work Phone: 08-17-2022 15:25-0400 Heart rate 66 /min Beena Benítez Work Phone: [facility] 250 DO Work Phone: 08-17-2022 15:25-0400 Systolic blood pressure 124 mm[Hg] Beena Benítez Work Phone: [facility] 250 DO Work Phone: 07-06-2022 15:45-0500 Body height 177.8 cm Beena Benítez Work Phone: [facility] 250 DO Work Phone: 07-06-2022 15:45-0500 Body mass index (BMI) [Ratio] 53.38 kg/m2 Beena Benítez Work Phone: [facility] 250 DO Work Phone: 07-06-2022 15:45-0500 Body surface area Derived from formula 2.72 m2 Beena Benítez Work Phone: [facility] 250 DO Work Phone: 07-06-2022 15:45-0500 Body weight 168.74 kg Beena Benítez Work Phone: [facility] 250 DO Work Phone: 07-06-2022 15:45-0500 Diastolic blood pressure 80 mm[Hg] Beena Benítez Work Phone: [facility] [employer] 250 DO Work Phone: 07-06-2022 15:45-0500 Heart rate 64 /min Beena Benítez Work Phone: [facility] [employer] 250 DO Work Phone: 07-06-2022 15:45-0500 Systolic blood pressure 118 mm[Hg] Beena Benítez Work Phone: [facility] [employer] 250 DO Work Phone: 06-15-2022 11:15-0500 Body height 175.26 cm Beena Benítez Other [facility] [employer] Other 06-15-2022 11:15-0500 Body mass index (BMI) [Ratio] 55.81 kg/m2 Beena Benítez Other [facility] [employer] Other 06-15-2022 11:15-0500 Body weight 171.46 kg Beena Benítez Other [employer] Other 06-15-2022 11:15-0500 Diastolic blood pressure 88 mm[Hg] Beena Benítez Other [employer] Other 06-15-2022 11:15-0500 SaO2% (BldA) [Mass fraction] 97 % Beena Benítez Other [employer] Other 06-15-2022 11:15-0500 Systolic blood pressure 130 mm[Hg] Beena Benítez Other [place] [employer] Other 03-09-2022 11:20-0400 Blood Pressure Location Kushal Page [facility] 03-09-2022 11:20-0400 Diastolic blood pressure 76 mm[Hg] Kushal Page [facility] 03-09-2022 11:20-0400 Heart rate 60 /min Kushal Page [facility] 03-09-2022 11:20-0400 Respiratory rate 18 /min Kushal Page [facility] 03-09-2022 11:20-0400 SaO2% (BldA) [Mass fraction] 98 % Kushal Page [facility] 03-09-2022 11:20-0400 Systolic blood pressure 140 mm[Hg] Kushal Page [facility] 02-05-2022 06:41-0400 Blood Pressure Location Kushal Page [facility] 02-05-2022 06:41-0400 Diastolic blood pressure 82 mm[Hg] Kushal Page [facility] 02-05-2022 06:41-0400 Heart rate 56 /min Kushal Page [facility] 02-05-2022 06:41-0400 Respiratory rate 20 /min Kushal Page [facility] 02-05-2022 06:41-0400 SaO2% (BldA) [Mass fraction] 100 % Kushal Page [facility] 02-05-2022 06:41-0400 Systolic blood pressure 150 mm[Hg] Kushal Page [facility] 01-23-2022 14:04-0400 Blood Pressure Location Kushal Page [facility] 01-23-2022 14:04-0400 Diastolic blood pressure 67 mm[Hg] Kushal Page [facility] 01-23-2022 14:04-0400 Heart rate 70 /min Kushal Page [facility] 01-23-2022 14:04-0400 Respiratory rate 18 /min Kushal Page [facility] 01-23-2022 14:04-0400 SaO2% (BldA) [Mass fraction] 97 % Kushal Page [facility] 01-23-2022 14:04-0400 Systolic blood pressure 140 mm[Hg] Kushal Page [facility] 12-31-2021 11:54-0400 Body height 177.8 cm Beena Benítez Work Phone: [facility] 320 DO Work Phone: 12-31-2021 11:54-0400 Body mass index (BMI) [Ratio] 52.95 kg/m2 Beena Benítez Work Phone: [facility] 320 DO Work Phone: 12-31-2021 11:54-0400 Body surface area Derived from formula 2.71 m2 Beena Benítez Work Phone: [facility] 320 DO Work Phone: 12-31-2021 11:54-0400 Body weight 167.38 kg Beena Benítez Work Phone: [facility] 320 DO Work Phone: 12-31-2021 11:54-0400 Diastolic blood pressure 84 mm[Hg] Beena Benítez Work Phone: [facility] 320 DO Work Phone: 12-31-2021 11:54-0400 Heart rate 67 /min Beena Benítez Work Phone: [facility] 320 DO Work Phone: 12-31-2021 11:54-0400 Systolic blood pressure 138 mm[Hg] Beena Benítez Work Phone: [facility] 320 DO Work Phone: 12-05-2021 15:01-0400 Blood Pressure Location Kushal Page [facility] 12-05-2021 15:01-0400 Diastolic blood pressure 69 mm[Hg] Kushal Page [facility] 12-05-2021 15:01-0400 Heart rate 70 /min Kushal Camilo [facility] 12-05-2021 15:01-0400 Respiratory rate 18 /min Kushal Page [facility] 12-05-2021 15:01-0400 SaO2% (BldA) [Mass fraction] 98 % Kushal Page [facility] 12-05-2021 15:01-0400 Systolic blood pressure 118 mm[Hg] Kushal Camilo [facility] 04-23-2021 16:19-0500 Body height 177.8 cm Beena Benítez Work Phone: [facility] 320 DO Work Phone: 04-23-2021 16:19-0500 Body mass index (BMI) [Ratio] 51.94 kg/m2 Beena Benítez Work Phone: [facility] 320 DO Work Phone: 04-23-2021 16:19-0500 Body surface area Derived from formula 2.69 m2 Beena Benítez Work Phone: [facility] 320 DO Work Phone: 04-23-2021 16:19-0500 Body weight 164.2 kg Beena Benítez Work Phone: [facility] 320 DO Work Phone: 04-23-2021 16:19-0500 Diastolic blood pressure 62 mm[Hg] Beena Benítez Work Phone: [facility] 320 DO Work Phone: 04-23-2021 16:19-0500 Heart rate 65 /min Beena Benítez Work Phone: [facility] 320 DO Work Phone: 04-23-2021 16:19-0500 Systolic blood pressure 108 mm[Hg] Beena Benítez Work Phone: [facility] 320 DO Work Phone: 10-09-2020 14:30-0400 Diastolic blood pressure 66 mm[Hg] Beena Benítez Other Phone: [facility] 10-09-2020 14:30-0400 Heart rate 50 /min Beena Benítez Other Phone: [facility] 10-09-2020 14:30-0400 Systolic blood pressure 133 mm[Hg] Beena Benítez Other Phone: [facility] 10-09-2020 13:00-0400 Body temperature 96.8 [degF] Beena Benítez Other Phone: [facility] 10-09-2020 13:00-0400 Respiratory rate 19 /min Beena Benítez Other Phone: [facility] 10-09-2020 13:00-0400 SaO2% (BldA) [Mass fraction] 98 % Beena Benítez Other Phone: [facility] 10-09-2020 02:15-0400 Body weight 159.4 kg Beena Benítez Other Phone: [facility] Encounters Encounter Date Encounter Type Care Provider Facility Start: 07-17-2024 End: 07-17-2024 Office outpatient visit 25 minutes Margret Stevens MD Work Phone: [facility] Comment on above: Persistent atrial fi brillation (Multi); Sinus node dysfunction (Multi); 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; Dyslipidemia; Primary hypertension; Chronic systolic congestive heart failure, NYHA class 2; SOB (shortness of breath); High risk medication use; Sleep apnea treated with continuous positive airway pressure (CPAP); BMI 50.0-59.9, adult (Multi); Never smoked tobacco; Unspecified atrial fibrillation (Multi); Mixed hyperlipidemia; Edema, unspecified type Start: 07-17-2024 End: 07-17-2024 ambulatory [facility] Start: 01-17-2024 End: 01-17-2024 Office outpatient visit 25 minutes Margret Stevens MD Work Phone: [facility] Comment on above: SOB (shortness of br eath); 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; High risk medication use; Medication course changed; Paroxysmal atrial fibrillation (Multi); Ischemic cardiomyopathy; Chronic systolic congestive heart failure, NYHA class 2 (Multi); BMI 50.0-59.9, adult (Multi); Lower leg edema; Sleep apnea treated with continuous positive airway pressure (CPAP); Lipid screening Start: 01-17-2024 End: 01-17-2024 ambulatory [facility] Start: 12-15-2023 End: 12-15-2023 Office outpatient visit 25 minutes Leonel Billy APRN-[employer] Work Phone: [facility] Comment on above: Coronary artery dise ase involving [place] coronary artery of [place] heart without angina pectoris (Primary Dx); Ischemic cardiomyopathy; SOB (shortness of breath); Edema, unspecified type; Chronic systolic congestive heart failure, NYHA class 2 (Multi); Paroxysmal atrial fibrillation (Multi); Hypercoagulable state due to paroxysmal atrial fibrillation (Multi); Sleep apnea treated with continuous positive airway pressure (CPAP); Lower leg edema Start: 12-15-2023 End: 12-15-2023 ambulatory LEONEL Gutierres [facility] Start: 11-10-2023 End: 11-10-2023 Subsequent hospital visit by physician Serina Myers Echo/Vasc Room 2 [facility] Comment on above: SOB (shortness of br eath); Chronic systolic congestive heart failure, NYHA class 2 (Multi); Ischemic cardiomyopathy Start: 11-10-2023 End: 11-10-[address] [facility] Start: 10-04-2023 End: 10-04-2023 Office outpatient visit 25 minutes Margret Stevens MD Work Phone: [facility] Comment on above: SOB (shortness of br eath); Edema, unspecified type; Chronic systolic congestive heart failure, NYHA class 2 (Multi); Ischemic cardiomyopathy; 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; Paroxysmal atrial fibrillation (Multi); Lower leg edema; High risk medication use; Hypercoagulable state due to paroxysmal atrial fibrillation (Multi); Unspecified atrial fibrillation (Multi); Sleep apnea treated with continuous positive airway pressure (CPAP); Mixed hyperlipidemia; Medication course changed Start: 10-04-2023 End: 10-04-2023 ambulatory [facility] Start: 07-19-2023 End: 07-19-2023 ambulatory [facility] Start: 07-19-2023 End: 07-19-2023 Office outpatient visit 25 minutes Margret Stevens MD Work Phone: [facility] Comment on above: Paroxysmal atrial fi brillation (CMS/HCC); 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; Ischemic cardiomyopathy; Chronic systolic congestive heart failure, NYHA class 2 (CMS/HCC); Hypercoagulable state due to paroxysmal atrial fibrillation (CMS/HCC); Medication course changed; Mixed hyperlipidemia; High risk medication use Start: 05-07-2023 End: 05-07-2023 ambulatory Kelly Jane Other [employer] Other Start: 05-07-2023 Office outpatient vi sit 15 minutes Kelly Jane [facility] Start: 05-07-2023 Telephone encounter Beena Benítez [facility] Start: 03-08-2023 End: 03-08-2023 ambulatory Beena Benítez Other [employer] Other Start: 03-08-2023 Office outpatient vi sit 25 minutes Beena Benítez [facility] Start: 02-15-[address] Beena Benítez Facility: Start: 02-03-2023 Rx Renewal Beena Benítez Work Phone: [facility] 250 DO Work Phone: Start: 01-28-2023 End: 01-28-2023 ambulatory Beena Benítez Other [facility] [employer] Other Start: 01-28-2023 Telephone encounter Beena Benítez [facility] Start: 12-03-[address] Beena Beníetz Facility: Start: 11-30-[address] Beena Benítez Facility: Start: 11-30-2022 Patient encounter procedure Beena Benítez Work Phone: [facility] 250 DO Work Phone: Start: 11-23-2022 Office outpatient ne w 45 minutes Beena Benítez Work Phone: [facility] 250 DO Work Phone: Start: 11-23-[address] Margret Newman ty: Start: 10-27-2022 End: 10-28-[address] DOCTOR HOLDEN Facility:[facility] Start: 10-12-2022 Telephone encounter Beena echavarria Work Phone: [facility] 250 DO Work Phone: Start: 10-05-2022 Office outpatient vi sit 25 minutes Beena Benítez Work Phone: [facility] 250 DO Work Phone: Start: 10-05-[address] Margret Newman ty: Start: 09-22-2022 Patient encounter procedure Beena Benítez Work Phone: [facility] 250 DO Work Phone: Start: 09-17-2022 Chart Update Beena Benítez Work Phone: [facility] 250 DO Work Phone: Start: 09-17-2022 End: 09-17-2022 ambulatory Beena Benítez Other [place] [employer] Other Start: 09-17-2022 Telephone encounter Beena Benítez [facility] Start: 09-10-[address] Beean Benítez Facility:[id number] Start: 09-08-2022 End: 09-09-2022 Pre-admission assessment Kushal Page [facility] Start: 08-17-2022 Office outpatient vi sit 25 minutes Beena [facility]tez [facility] Work Phone: Start: 08-17-[address] Margret Newman ty: Start: 07-20-2022 End: 07-21-[address] DOCTOR HOLDEN Facility:[facility] Start: 07-06-2022 Office outpatient vi sit 25 minutes Beena [facility]z [facility] Work Phone: Start: 07-06-[address] Margret Newman ty: Start: 06-23-2022 End: 06-23-2022 ambulatory Beena Benítez Other [facility] [employer] Other Start: 06-23-2022 Telephone encounter Beena Benítez [facility] Start: 06-15-2022 Office outpatient vi sit 25 minutes Beena Benítez [facility] Start: 06-15-2022 End: 06-16-[address] BEENA BENÍTEZ [place] [employer] [facility] Other Start: 06-02-2022 End: 06-02-2022 ambulatory Beena Benítez Other [facility] [employer] Other Start: 06-02-2022 Telephone encounter Beena BADILLO [facility] Start: 03-09-2022 End: 03-10-2022 ambulatory XXXX NONE Facility:[facility] Start: 03-09-2022 End: 03-09-2022 Patient encounter procedure Kushal Page [facility] Start: 02-05-2022 End: 02-05-2022 ambulatory MD Kushal Page Facility:[facility] Start: 02-05-2022 End: 02-05-2022 Admission to same day surgery center Kushal Page [facility] Start: 01-28-2022 End: 01-29-2022 ambulatory MD Kushal Page Facility:[facility] Start: 01-28-2022 End: 01-28-2022 Patient encounter procedure Kushal Page [facility] Start: 01-23-2022 End: 01-24-2022 ambulatory MD Kushal Page Facility:[facility] Start: 01-23-2022 End: 01-23-2022 Patient encounter procedure Kushal Page [facility] Start: 01-21-2022 End: 04-23-2022 ambulatory MD Kushal Page Facility:[facility] Start: 01-21-2022 End: 04-22-2022 Recurring Kushal Page [facility] Start: 01-19-2022 Rx Renewal Beena Benítez Work Phone: [facility] 250 DO Work Phone: Start: 01-19-2022 End: 01-20-[address] NONE LISTED REQUEST Facility: Start: 01-01-2022 Chart Update Beena Benítez Work Phone: [facility] 320 DO Work Phone: Start: 12-31-2021 Patient encounter procedure Beena Benítez Work Phone: [facility] 320 DO Work Phone: Start: 12-31-2021 Current tobacco non- user cad cap copd pv dm Beena Benítez Work Phone: [facility] 320 DO Work Phone: Start: 12-05-2021 End: 12-06-2021 ambulatory MD Kushal Page Facility:[facility] Start: 12-05-2021 End: 12-05-2021 Patient encounter procedure Kushal Page [facility] Start: 07-07-2021 Rx Renewal Beena Benítez Work Phone: [facility] 250 DO Work Phone: Start: 04-23-2021 Office outpatient vi sit 25 minutes Beena Benítez Work Phone: [facility] 320 DO Work Phone: Start: 10-07-2020 End: 10-09-2020 Evaluation and management of inpatient Adam Romano 8 Cardio ICU [id number] Patient encounter status Beena Benítez Work Phone: [facility] 320 DO Work Phone: Procedures Date Procedure Procedure Detail Performing Clinician Start: 07-17-2024 Ecg routine ecg w/le ast 12 lds w/i&r Margret Stevens MD Work Phone: Start: 01-17-2024 Ecg routine ecg w/le ast 12 lds w/i&r Margret Stevens MD Work Phone: Start: 10-04-2023 ECG 12-LEAD MARGRET PIERRE Start: 10-04-2023 FOLLOW UP IN CARDIOLOGY MARGRET STEVENS Start: 10-04-2023 Ecg routine ecg w/le ast 12 lds w/i&r Margret Stevens MD Work Phone: Start: 07-19-2023 Basic metabolic 2000 panel - Serum or Plasma MARGRETFANNY STEVENS Start: 07-19-2023 CBC panel - Blood [...] - Tdap) DTaP/Tdap/Td Vaccines (2 - Tdap) [facility] Start: 07-02-2025 End: 07-02-2025 Patient encounter procedure 07/02/2025 1:15 PM EST Office Visit [facility] [address] [place] [address] Margret Stevens MD [address] [facility] [address] [place] [address] [facility] Start: 11-09-[address] [facility] Start: 07-17-2024 End: 07-17-2024 Patient encounter procedure [facility] Start: 07-17-2024 End: 07-17-2025 Comprehensive metabolic 2000 panel - Serum or Plasma Comprehensive Metabolic Panel Lab Routine Dyslipidemia Primary hypertension Expected: 07/17/2024 (Approximate), Expires: 07/17/2025 [facility] Work Phone: Comment on above: Expected: 07/17/2024 (Approximate), Expi res: 07/17/2025 Start: 07-17-2024 End: 07-17-2025 Lipid 1996 panel - Serum or Plasma Lipid Panel Lab Routine Dyslipidemia Expected: 07/17/2024 (Approximate), Expires: 07/17/2025 [facility] Service Area Work Phone: Comment on above: Expected: 07/17/2024 (Approximate), Expi res: 07/17/2025 Start: 06-19-2024 End: 06-19-2024 Patient encounter procedure 06/19/2024 10:45 AM EST Appointment [facility] [address] [place] [id number] [facility] Start: 06-18-2024 End: 07-19-2024 CBC panel - Blood by Automated count CBC Lab Routine Paroxysmal atrial fibrillation (CMS/HCC) Hypercoagulable state due to paroxysmal atrial fibrillation (CMS/HCC) Expected: 06/18/2024 (Approximate), Expires: 07/19/2024 [facility] Work Phone: Comment on above: Expected: 06/18/2024 (Approximate), Expi res: 07/19/2024 Start: 06-18-2024 End: 07-19-2024 Comprehensive metabolic 2000 panel - Serum or Plasma Comprehensive Metabolic Panel Lab Routine Paroxysmal atrial fibrillation (CMS/HCC) 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 Ischemic cardiomyopathy Chronic systolic congestive heart failure, NYHA class 2 (CMS/HCC) Expected: 06/18/2024 (Approximate), Expires: 07/19/2024 [facility] Work Phone: Comment on above: Expected: 06/18/2024 (Approximate), Expi res: 07/19/2024 Start: 06-18-2024 End: 07-19-2024 Lipid 1996 panel - Serum or Plasma Lipid Panel Lab Routine 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 Mixed hyperlipidemia Expected: 06/18/2024 (Approximate), Expires: 07/19/2024 [facility] Work Phone: Comment on above: Expected: 06/18/2024 (Approximate), Expi res: 07/19/2024 Start: 01-30-2024 COVID-19 Vaccine ( season) COVID-19 Vaccine ( season) [facility] Start: 01-30-[address] [facility] Start: 01-17-2024 End: 01-17-2024 Patient encounter procedure 01/17/2024 3:30 PM EDT Office Visit [facility] [address] [place] [address] Margret Stevens MD [address] [facility] [address] [place], [place] [id number] [facility] Start: 01-17-2024 End: 01-16-2025 Basic metabolic 2000 panel - Serum or Plasma Basic Metabolic Panel Lab Routine Ischemic cardiomyopathy Expected: 01/17/2024 (Approximate), Expires: 01/16/2025 [facility] Work Phone: Comment on above: Expected: 01/17/2024 (Approximate), Expi res: 01/16/2025 Start: 01-17-2024 End: 01-16-2025 CBC panel - Blood by Automated count CBC Lab Routine Ischemic cardiomyopathy Expected: 01/17/2024 (Approximate), Expires: 01/16/2025 [facility] Work Phone: Comment on above: Expected: 01/17/2024 (Approximate), Expi res: 01/16/2025 Start: 01-17-2024 End: 01-16-2025 Comprehensive metabolic 2000 panel - Serum or Plasma Comprehensive Metabolic Panel Lab Routine Ischemic cardiomyopathy Expected: 01/17/2024 (Approximate), Expires: 01/16/2025 [facility] Work Phone: Comment on above: Expected: 01/17/2024 (Approximate), Expi res: 01/16/2025 Start: 01-17-2024 End: 01-16-2025 Lipid 1996 panel - Serum or Plasma Lipid Panel Lab Routine Lipid screening Expected: 01/17/2024 (Approximate), Expires: 01/16/2025 [facility] Work Phone: Comment on above: Expected: 01/17/2024 (Approximate), Expi res: 01/16/2025 Start: 12-15-2023 End: 12-15-2023 Patient encounter procedure 12/15/2023 3:00 PM EDT Office Visit [facility] [address] [place] [id number] Leonel Billy, PRODUCE SPECIALIST-AMUSEMENT PARK RIDE MECHANIC [address] [place] [address] [facility] Start: 12-15-2023 End: 12-14-2024 Basic metabolic 2000 panel - Serum or Plasma Basic Metabolic Panel Lab Routine SOB (shortness of breath) Expected: 12/15/2023 (Approximate), Expires: 12/14/2024 [facility] Work Phone: Comment on above: Expected: 12/15/2023 (Approximate), Expi res: 12/14/2024 Start: 12-15-2023 End: 12-14-2024 Natriuretic peptide B [Mass/volume] in Blood B-Type Natriuretic Peptide Lab Routine SOB (shortness of breath) Expected: 12/15/2023 (Approximate), Expires: 12/14/2024 [facility] Work Phone: Comment on above: Expected: 12/15/2023 (Approximate), Expi res: 12/14/2024 Start: 11-15-2023 End: 11-15-2023 Patient encounter procedure 11/15/2023 3:30 PM EDT Office Visit [address] [place] [address] Margret Stevens MD [address] [place] [address] [address] [place], [place] [id number] [facility] Start: 11-10-2023 End: 11-10-2023 Patient encounter procedure 11/10/2023 10:45 AM EDT Appointment [address] [place] [phone] [facility] Start: 10-11-2023 End: 10-03-2024 Basic metabolic 2000 panel - Serum or Plasma Basic Metabolic Panel Lab Routine SOB (shortness of breath) Edema, unspecified type Chronic systolic congestive heart failure, NYHA class 2 (Multi) Ischemic cardiomyopathy Medication course changed Expected: 10/11/2023 (Approximate), Expires: 10/03/2024 [facility] Work Phone: Comment on above: Expected: 10/11/2023 (Approximate), Expi res: 10/03/2024 Start: 10-04-2023 End: 10-03-2025 Heart Transthoracic Transthoracic Echo Complete Echocardiography Routine SOB (shortness of breath) Chronic systolic congestive heart failure, NYHA class 2 (Multi) Ischemic cardiomyopathy Expected: 10/04/2023 (Approximate), Expires: 10/03/2025 [facility] Work Phone: Comment on above: Expected: 10/04/2023 (Approximate), Expi res: 10/03/2025 Start: 08-02-2023 End: 07-19-2024 Basic metabolic 2000 panel - Serum or Plasma Basic Metabolic Panel Lab Routine Ischemic cardiomyopathy Chronic systolic congestive heart failure, NYHA class 2 (CMS/HCC) Expected: 08/02/2023 (Approximate), Expires: 07/19/2024 [facility] Service Area Work Phone: Comment on above: Expected: 08/02/2023 (Approximate), Expi res: 07/19/2024 Start: 07-19-2023 End: 07-19-2025 [facility] Transthoracic Transthoracic Echo Complete Echocardiography Routine Ischemic cardiomyopathy Chronic systolic congestive heart failure, NYHA class 2 (CMS/HCC) Expected: 07/19/2023 (Approximate), Expires: 07/19/2025 [facility] Work Phone: Comment on above: Expected: 07/19/2023 (Approximate), Expi res: 07/19/2025 Start: 02-15-2023 FUV, Provider: Margret Stevens, Status: Pen, Time: 12:30 PM FUV, Provider: Margret Stevens, Status: Pen, Time: 12:30 PM [facility] [address] DO Work Phone: Start: 01-29-2023 COVID-19 Vaccine ( season) COVID-19 Vaccine ( season) [facility] Start: 01-29-2023 Influenza vaccination Influenza Vaccine (#1) [facility] Start: 12-02-2022 HOLTER 48, Provider: VIN IZAGUIRRE PURE PAK MACHINE OPERATOR 1,[id number], Status: Pen, Time: 9:00 AM HOLTER 48, Provider: VIN IZAGUIRRE PURE PAK MACHINE OPERATOR 1,[id number], Status: Pen, Time: 9:00 AM [facility] 250 DO Work Phone: Start: 11-23-2022 FUV, Provider: Margret Stevens, Status: Pen, Time: 3:00 PM FUV, Provider: Margret Stevens, Status: Pen, Time: 3:00 PM [facility] 250 DO Work Phone: Start: 10-05-2022 FUV, Provider: Margret Stevens, Status: Pen, Time: 2:30 PM FUV, Provider: Margret Stevens, Status: Pen, Time: 2:30 PM -[facility] 250 DO Work Phone: Start: 09-10-2022 STRESS HERSON, Provider: CARLA HHVI NUCLEAR 01,[id number], Status: Pen, Time: 9:00 AM STRESS HERSON, Provider: CARLA HHVI NUCLEAR 01,[id number], Status: Pen, Time: 9:00 AM -[facility] 250 DO Work Phone: Start: 08-17-2022 FUV, Provider: Margret Stevens, Status: Pen, Time: 3:15 PM FUV, Provider: Margret Stevens, Status: Pen, Time: 3:15 PM -[facility] 250 DO Work Phone: Start: 10-29-2021 FUV, Provider: Adam Leo, Status: Pen, Time: 3:45 PM FUV, Provider: Adam Leo, Status: Pen, Time: 3:45 PM -[facility] 320 DO Work Phone: Start: 10-09-2021 Creatinine measurement Creatinine Level [facility] Start: 10-09-2021 Diabetes mellitus screening Diabetes Screening [facility] Start: 10-09-2021 Pot[address] measurement Potassium Level [facility] Start: 10-09-2020 No post-op complications No post-op complications Date: 09-Oct-2020 [facility] Start: 10-09-2020 Prolonged QT interval Prolonged QT interval Date: 09-Oct-2020 [facility] Start: 2020 Arrhythmia Arrhythmia Date: 08-Oct-2020 [facility] Start: 10-07-2020 End: 2021 [facility] Comment on above: IF patient HAS [...] 100 mg/dL or greater. Start: 2017 RSV High Risk: (Elderly (60+) or Population) (1 - Risk 60-74 years 1-dose series) RSV High Risk: (Elderly (60+) or Population) (1 - Risk 60-74 years 1-dose series) [facility] Start: 2017 RSV patients and/or patients aged 60+ years (1 - 1-dose 60+ series) RSV patients and/or patients aged 60+ years (1 - 1-dose 60+ series) [facility] Start: 10-09-2007 Zoster Vaccines (1 of 2) Zoster Vaccines (1 of 2) [facility] Start: 10-09-1979 DTaP/Tdap/Td Vaccines (1 - Tdap) DTaP/Tdap/Td Vaccines (1 - Tdap) [facility] Start: 1976 Pneumococcal vaccination Pneumococcal Vaccine (1 of 2 - PCV) [facility] Start: 10-09-1975 Hepatitis C screening Hepatitis C Screening [facility] Start: 10-09-1963 Pneumococcal Vaccine: 65+ Years (1 - PCV) Pneumococcal Vaccine: 65+ Years (1 - PCV) [facility] Start: 10-09-1963 Pneumococcal Vaccine: 65+ Years (1 of 2 - PCV) Pneumococcal Vaccine: 65+ Years (1 of 2 - PCV) [facility] Start: 1958 MMR Vaccines (1 of 1 - Standard series) MMR Vaccines (1 of 1 - Standard series) [facility] Start: 1957 Annual wellness visit Medicare Initial Physical (IPPE) [facility] Start: [address] [facility] Start: [address] Lipid [address] Lipid Panel [facility] Start: 1957 Medicare Annual Wellness Visit Medicare Annual Wellness Visit (AWV) [facility] Start: 1957 Screening for malignant neoplasm of colon [facility] End: 11-10-2023 [facility] Work Phone: Comment on above: Once for 1 Occurrences starting 11/10/19 24 until 11/10/2023 Immunizations Immunization Date Immunization Notes Care Provider Nikole johnny 03-30-2021 diphtheria, tetanus toxoids and pertussis vaccine Beena Benítez Work Phone: [facility] [address] DO Work Phone: 09-30-2020 Pfizer-BioNTech COVI D-19 Vacc 30 MCG/0.3ML Intramuscular Suspension Beena Benítez Work Phone: [facility] 320 DO Work Phone: 09-10-2020 Pfizer-BioNTech COVI D-19 Vacc 30 MCG/0.3ML Intramuscular Suspension Beena Benítez Work Phone: [facility] 320 DO Work Phone: Payers Date Payer Category Payer Private Health Insurance 2021 Medicare AETNA MEDICARE A ETNA MEDICARE VALUE PLAN [id number] 2021-Present [facility] [address] [place] [address] [id number] 2021 Medicare (Managed Care) [place] [id number] 1959 Medicare [id number] [id number] 1957 Unknown [id number] 2.16.840.1.655981.3.579.2. 1068 1957 Unknown [id number] 2.16.840.1.261465.3.579.2. 727 1957 Unknown [id number] 2.16.840.1.149330.3.579.2. 727 1957 Unknown [id number] 2.16.840.1.555920.3.579.2. 727 1957 Unknown [id number] 2.16.840.1.651279.3.579.2. 727 1957 Unknown [id number] 2.16.840.1.129427.3.579.2. 727 1957 Unknown [id number] 2.16.840.1.301649.3.579.2. 727 1957 Unknown [id number] 2.16.840.1.182524.3.579.2. 593 1957 Unknown [id number] 2.16.840.1.925029.3.579.2. 593 1957 Unknown [id number] 2.16.840.1.017524.3.579.2. 593 1957 Unknown [id number] 2.16840.1.511364.3.579.2. 593 1957 Unknown [id number] 2.16.840.1.139751.3.579.2. 356 1957 Unknown [id number] 2.16.840.1.249586.3.579.2. 356 1957 Unknown [id number] 2.16.840.1.106943.3.579.2. 356 1957 Unknown [id number] 2.16.840.1.445979.3.579.2. 356 1957 Unknown [id number] 2.16.840.1.534486.3.579.2. 356 1957 Unknown [id number] 2.16.840.1.968231.3.579.2. 356 1957 Unknown [id number] 2.16.840.1.561106.3.579.2. 356 1957 Unknown [id number] 2.16.840.1.134287.3.579.2. 1246 1957 Unknown [id number] 2.16.840.1.662935.3.579.2. 1244 1957 Unknown [id number] 2.16.840.1.397581.3.579.2. 1244 1957 Unknown [id number] 2.16.840.1.970853.3.579.2. 1244 1957 Unknown [id number] 2.16.840.1.344182.3.579.2. 1244 1957 Unknown [id number] 2.16.840.1.014599.3.579.2. 1244 Unknown Social History Date Type Detail Facility [facility] Tobacco smoking consumption unknown [facility] Start: 07-19-2023 End: 01-17-2024 Never smoker Never smoker [place] [address] DO Work Phone: Comment on above: 2-3 cups of tea dudley y, 1 soda; Start: 05-30-2020 End: 07-19-2023 Tobacco smoking status Never smoked tobacco (finding) [facility] Start: 07-19-2023 End: 01-17-2024 Sex Assigned At Male [facility] Start: 07-19-2023 Tobacco use and exposure Smokeless tobacco non-user [facility] Work Phone: Start: 07-19-2023 End: 01-17-2024 Alcohol intake Current drinker of alcohol (finding) [facility] Work Phone: Start: 07-19-2023 Alcohol Comment occasional beer [facility] Work Phone: Start: 1955 Sex Assigned At Not on file [facility] Work Phone: Start: 07-09-2023 End: 07-17-2024 Exposure to SARS-CoV-2 (event) Not sure [facility] Functional Status Date Assessment Result Facility 03-09-2022 Functional Status N/A [facility] 02-05-2022 Functional Status Yes [facility] 01-23-2022 Functional Status N/A [facility] 12-05-2021 Functional Status N/A [facility] Functional observable [facility] Mental Status Date Assessment Result Facility 10-09-2020 Cognitive functions [id number] [facility] Clinical Notes 10-07-2020 to 07-17-2024 Margret Stevens MD - 07/17/2024 3:30 PM ESTPatient InstructionsMargret Stevens MD - 01/17/2024 3:30 PM EDTPatient InstructionsLeonel Billy APRN-ROGERIO - 12/15/2023 3:00 PM EDTPatient Instructions Note Date & Type Note Facility 07-17-2024 History of Present illness Narrative 6-month follow-up visit.Patient with morbid obesity, diabetes, atherosclerotic [place] vessel coronary artery disease, hypertensive cardiomyopathy with diastolic heart failure, obstructive sleep apnea on CPAP therapy, his lower extremity edema has resolved with up titration of diuretics. Ozempic dose was increased to 1 mg subcu every week. Subjective : Accompanied by to the office. Reports taking Ozempic 0.5 mg subcutaneously every week No weight loss since last visit No symptoms of hypoglycemia Compliant with CPAP therapy Ozempic is getting prohibitively expensive Talked about Farxiga and Jardiance, and pros and cons. Interval review of systems is negative for chest discomfort pressure tightness heaviness palpitations lightheadedness orthopnea paroxysmal nocturnal dyspnea dependent edema or claudication TIA or CVA type symptoms or bleeding diathesis 12 point ROS is negative or non contributory except as noted. History so Far : 1. Persistent atrial [...] per 2D echocardiogram dated June 07, 2020, [place] [employer] class II, stage B heart failure. 10. Gouty arthritis. Patient remains on allopurinol, no recent recurrence. 11. Abnormal perfusion imaging showing an LV ejection fraction in the 20s, with subsequent cardiac catheterization showing LV ejection fraction of 45%, this was done at [facility] and that particular Catheterization did not [...] This is consistent with chronotropic blunting. 13. [id number] score is 6 14.48-hour Holter monitor-minimum heart [...] because there was no appreciable tricuspid regurgitation. This of breath defecogram I last office note that has a lot of the diagnoses 16. Ozempic prohibitively expensive. Objective Wt Readings from Last 3 Encounters: 07/17/24 (!) 163 kg (360 lb) 01/17/24 (!) 163 kg (360 lb) 12/15/23 (!) 163 kg (359 lb) Vitals: 07/17/24 1522 BP: 126/72 BP Location: Left arm Patient Position: Sitting Pulse: 68 Weight: (!) 163 kg (360 lb) Height: [...] Medications Medication Instructions allopurinol (ZYLOPRIM) 300 mg, Daily apple cider vinegar 600 mg capsule 1 capsule, 2 times daily aspirin 81 mg chewable tablet 1 tablet, Daily colchicine 0.6 mg, As needed DULoxetine (CYMBALTA) 60 mg, Daily furosemide (LASIX) 20 mg, oral, Daily magnesium oxide (MAG-OX) 400 mg, oral, Daily metFORMIN XR (GLUCOPHAGE-XR) 750 mg, Daily modafinil (PROVIGIL) 100 mg, Daily multivitamin tablet 1 tablet, Daily omeprazole (PRILOSEC) 20 mg, As needed rivaroxaban (Xarelto) 20 mg tablet TAKE 1 TABLET BY MOUTH ONCE DAILY WITH BIGGEST MEAL OF THE DAY rosuvastatin (CRESTOR) 20 mg, oral, Daily sacubitriL-valsartan (Entresto) 97-103 mg tablet 1 tablet, oral, 2 times daily sotalol (BETAPACE) 80 mg, oral, 2 times daily spironolactone (ALDACTONE) 25 mg, oral, Daily No Known Allergies LABS: Lipid profile July 2024-total cholesterol 105 HDL 51 LDL 29 total cholesterol to HDL ratio 2.1 triglycerides 125 sodium 137 potassium 4 BUN 15 creatinine 0.79 GFR greater than 60 liver enzymes normal Patient Active Problem List Diagnosis Date Noted Sinus node dysfunction (Multi) 07/17/2024 Dyslipidemia 07/17/2024 Primary hypertension 07/17/2024 Never smoked tobacco 01/17/2024 BMI 50.0-59.9, adult (Multi) 12/15/2023 Lower leg edema 10/04/2023 Sleep apnea treated with continuous positive airway pressure (CPAP) 10/04/2023 Hypercoagulability due to atrial fibrillation (Multi) 07/19/2023 Medication course changed 07/19/2023 Chronic systolic congestive heart failure, NYHA class 2 07/19/2023 High risk medication use 07/19/2023 Abnormal electrocardiogram 05/05/2023 Atrial fibrillation (Multi) 05/05/2023 CAD (coronary artery disease) 05/05/2023 Cardiomyopathy 05/05/2023 COVID-19 05/05/2023 SOB (shortness of breath) 05/05/2023 Assessment: 1. Persistent atrial fibrillation (Multi) Follow Up In Cardiology Follow Up In Cardiology ECG 12 Lead 2. Sinus node dysfunction (Multi) 3. 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 Follow Up In Cardiology 4. Dyslipidemia Lipid Panel Comprehensive Metabolic Panel Lipid Panel Comprehensive Metabolic Panel 5. Primary hypertension Comprehensive Metabolic Panel Comprehensive Metabolic Panel 6. Chronic systolic congestive heart failure, NYHA class 2 sacubitriL-valsartan (Entresto) 97-103 mg tablet spironolactone (Aldactone) 25 mg tablet 7. SOB (shortness of breath) furosemide (Lasix) 20 mg tablet spironolactone (Aldactone) 25 mg tablet 8. High risk medication use 9. Sleep apnea treated with continuous positive airway pressure (CPAP) 10. BMI 50.0-59.9, adult (Multi) 11. Never smoked tobacco 12. Unspecified atrial fibrillation (Multi) magnesium oxide (Mag-Ox) 400 mg (241.3 mg magnesium) tablet rivaroxaban (Xarelto) 20 mg tablet sotalol (Betapace) 80 mg tablet 13. Mixed hyperlipidemia rosuvastatin (Crestor) 20 mg tablet 14. Edema, unspecified type spironolactone (Aldactone) 25 mg tablet Clinical decision making: Multiple comorbidities cardiac risk factors atherosclerotic [place] vessel coronary artery disease diabetes and morbid obesity. Patient would be a great candidate for Farxiga or Jardiance, pros and cons discussed. Defer to Dr. Benítez. No change in cardiac medications today Blood pressure is at target Lower extremity edema has resolved or is minimal Lipid profile is at target No evidence of bleeding GFR greater than 60 Compliant with CPAP therapy Patient to discuss Jardiance and/or Farxiga with Dr. Benítez,he recalls that Jardiance was prohibitively expensive. Cost of Ozempic is prohibitive-? Weight loss clinic? Alternates Follow up : 1 year Comprehensive profile lipid profile CBC prior to next visit Provider Attestation - Scribe documentation All medical record entries made by the Scribe were at my direction and personally dictated by me. I have reviewed the chart and agree that the record accurately reflects my personal performance of the history, physical exam, discussion and plan. documented in this encounter [facility] Work Phone: 07-17-2024 Instructions Zayra Coffey RN - 07/17/2024 3:30 PM EST Please bring all medicines, vitamins, and herbal supplements with you when you come to the office. Prescriptions will not be filled unless you are compliant with your follow up appointments or have a follow up appointment scheduled as per instruction of your physician. Refills should be requested at the time of your visit. EKG done in office today Fall Prevention Education Given Farxiga 10 mg or Jardiac 25 mg (check to see how insurance would cover either medication) documented in this encounter [facility] Work Phone: 01-17-2024 History of Present illness Narrative Most [...] per 2D echocardiogram dated June 07, 2020, [place] [facility] [employer] class II, stage B heart failure. 10. Gouty arthritis. Patient remains on allopurinol, no recent recurrence. 11. Abnormal perfusion imaging showing an LV ejection fraction in the 20s, with subsequent cardiac catheterization showing LV ejection fraction of 45%, this was done at [facility] and that particular Catheterization did not [...] This is consistent with chronotropic blunting. 13. [id number] score is 6 14.48-hour Holter monitor-minimum heart [...] Never smoked cigarettes 01/17/2024 BMI 50.0-59.9, adult ([facility]) 12/15/2023 Lower leg edema 10/04/2023 Sleep apnea treated with continuous positive airway pressure (CPAP) 10/04/2023 Hypercoagulability due to atrial fibrillation ([facility]) 07/19/2023 Medication course changed 07/19/2023 Chronic systolic congestive heart failure, NYHA class 2 ([facility]) 07/19/2023 High risk medication use 07/19/2023 Abnormal electrocardiogram 05/05/2023 Atrial fibrillation (Multi) 05/05/2023 CAD (coronary artery disease) 05/05/2023 Cardiomyopathy (Multi) 05/05/2023 COVID-19 05/05/2023 SOB (shortness of breath) 05/05/2023 Assessment: 1. SOB (shortness of breath) Follow Up In Cardiology 2. 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 Follow Up In [...] Panel Patient with morbid obesity, diabetes, atherosclerotic [place] vessel coronary artery disease, hypertensive cardiomyopathy with [...] discussion and plan. documented in this encounter [facility] Work Phone: 01-17-2024 Instructions Marni Grier LPN [...] instructions on exercise. documented in this encounter [facility] Work Phone: 12-15-2023 History of Present illness [...] Dr Stevens one month Leonel Billy MSN, PRODUCE SPECIALIST-AMUSEMENT PARK RIDE MECHANIC, PMHNP-[facility] Please excuse any errors in grammar or translation related to this dictation. Voice recognition software was utilized to prepare this document. documented in this encounter [facility] Work Phone: 12-15-2023 Instructions TAVO Clark - [...] Stevens one month documented in this encounter [facility] Work Phone: 10-04-2023 Note Normal sinus rhythm poor R wave progression normal intervals no change compared to previous EKG [facility] 10-04-2023 History of Present illness Narrative [...] Patient had profound bradycardia on combination of beta-ashley and sotalol, currently remains on sotalol. 3. [...] per 2D echocardiogram dated June 07, 2020, [place] [employer] class II, stage B heart failure. 10. Gouty arthritis. Patient remains on allopurinol, no recent recurrence. 11. Abnormal perfusion imaging showing an LV ejection fraction in the 20s, with subsequent cardiac catheterization showing LV ejection fraction of 45%, this was done at [facility] and that particular Catheterization did not [...] This is consistent with chronotropic blunting. 13. [id number] score is 6 14.48-hour Holter monitor-minimum heart [...] Metabolic Panel 5. 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 6. Paroxysmal atrial [...] discussion and plan. documented in this encounter [facility] Work Phone: 10-04-2023 Instructions Judy Guillaume CMA [...] in office today documented in this encounter [facility] Work Phone: 07-19-2023 History of Present illness [...] per 2D echocardiogram dated June 07, 2020, [place] [facility] [employer] class II, stage B heart failure. 10. Gouty arthritis. Patient remains on allopurinol, no recent recurrence. 11. Abnormal perfusion imaging showing an LV ejection fraction in the 20s, with subsequent cardiac catheterization showing LV ejection fraction of 45%, this was done at [facility] and that particular Catheterization did not [...] This is consistent with chronotropic blunting. 13. [id number] score is 6 14.48-hour Holter monitor-minimum heart [...] redirect to the Timeline version of the [employer] Smart[employer]. Wt Readings from Last 3 Encounters: [...] Metabolic Panel 2. 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 Follow Up In [...] By signing my name below, I, Clarisa Julito Acosta LPN attest that this documentation has been prepared under the direction and in the presence of Margert Stevens MD. documented in this encounter [facility] Work Phone: 07-19-2023 Instructions Clarisa Quintanilla LPN [...] Increase physical activity. documented in this encounter [facility] Work Phone: 05-07-2023 Evaluation note Encounter Date [...] the ER for worsening symptoms or concerns [facility] Other 10-09-2023 Evaluation note* Encounter Date Diagnosis [...] as directed. Feb, 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 (ICD-10 - I25.10) Continue care w NO Feb, GAYLE (obstructive sleep apnea) (ICD-10 - G47.33) Continue care w Dr. Noble. [facility] Other 05-01-2023 History of Present illness Narrative* [...] per 2D echocardiogram dated June 07, 2020, [place] [employer] class II, stage B heart failure. * 10. Gouty arthritis. Patient remains on allopurinol, no recent recurrence. * 11. Abnormal perfusion imaging showing an LV ejection fraction in the 20s, with subsequent cardiac catheterization showing LV ejection fraction of 45%, this was done at [facility] and that particular Catheterization did not [...] is consistent with chronotropic blunting. * 13. [id number] score is 6 * Laboratory data from [...] prohibitively expensive-pleaseconsider Ozempic or Rybelsus-defer to primary/endocrinology. -[facility]-Carla French DO Work Phone: 1(501) 433-952005-01-2023 History of Present illness Narrative* Patient was [...] per 2D echocardiogram dated June 07, 2020, [place] [employer] class II, stage B heart failure. * 10. Gouty arthritis. Patient remains on allopurinol, no recent recurrence. * 11. Abnormal perfusion imaging showing an LV ejection fraction in the 20s, with subsequent cardiac catheterization showing LV ejection fraction of 45%, this was done at [facility] and that particular Catheterization did not [...] is consistent with chronotropic blunting. * 13. [id number] score is 6 * Laboratory data from [...] prohibitively expensive-pleaseconsider Ozempic or Rybelsus-defer to primary/endocrinology. -[facility]-Carla French DO Work Phone: 1(165) 599-533105-01-2023 History of Present illness Narrative* Patient was [...] per 2D echocardiogram dated June 07, 2020, [place] [employer] class II, stage B heart failure. * 10. Gouty arthritis. Patient remains on allopurinol, no recent recurrence. * 11. Abnormal perfusion imaging showing an LV ejection fraction in the 20s, with subsequent cardiac catheterization showing LV ejection fraction of 45%, this was done at [facility] and that particular Catheterization did not [...] is consistent with chronotropic blunting. * 13. [id number]-JLDg score is 6 * Laboratory data from [...] prohibitively expensive-pleaseconsider Ozempic or Rybelsus-defer to primary/endocrinology. -[facility]-Carla French DO Work Phone: 1(456) 215-268004-01-2023 History of Present illness Narrative* Patient with [...] per 2D echocardiogram dated June 07, 2020, [place] [employer] class II, stage B heart failure. * 10. Gouty arthritis. Patient remains on allopurinol, no recent recurrence. * 11. Abnormal perfusion imaging showing an LV ejection fraction in the 20s, with subsequent cardiac catheterization showing LV ejection fraction of 45%, this was done at [facility] and that particular Catheterization did not [...] for his unrelenting fatigue and foggy brain. -[facility]-Carla French DO Work Phone: 1(341) 824-977801-16-2023 Evaluation note* Encounter Date Diagnosis Assessment Notes Treatment Notes Treatment Clinical Notes May, Type 2 diabetes mellitus with hyperglycemia, without long-term current use of insulin (ICD-10 - E11.65) chronic problem - may increase or add med based on lab results May, Essential (primary) hypertension (ICD-10 - I10) chronic and controlled adequately at this time. May, 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 (ICD-10 - I25.10) May, BMI 50.0-59.9, adult (ICD-10 - Z68.43) Pt is encouraged to lose weight, change diet, and increase exercise as tolerated. [facility] [employer] Other 09-12-2022 Note [id number] 02-05-2022 Evaluation + Plan noteExtracted from: [...] Scheduled Tests Laboratory* Basic Metabolic Panel 06/06/21 [facility]09-08-2022 Hospital Discharge instructions Patient Education 02/05/2022 10:35:09 CV - Cardiovascular Discharge Instructions (CUSTOM) [place], [place] CARDIOVASCULAR DISCHARGE INSTRUCTIONS Diet: Resume pre-procedure [...] hours post procedure: Actoplus MetGlucophageGlucophage XR GlucovanceAvandametFortamet Sju-expteoexyZzijykCezi-bwipfmunh GlumetzaJanumetMetaglip RiometGlycomet *Minimal pain, soreness and/or discomfort [...] you are interested in smoking cessation, contact [facility] at [phone], ext. [phone]. In the event you are unable to reach your physician, please call [facility] at [phone] and the collar shaper operator will assist you. Seek Immediate Medical Care for: Bleeding: Apply continuous pressure to the site and Call 911. Should the arm or leg become cold, numb, blue or white call your physician immediately. Signs of infection are redness, warmth, swelling, increased tenderness, colored drainage, fever or chills Chest pain Follow Up Care 01/27/2022 09:04:57 With:Kushal Page Address: [address] [place] [id number] [phone] Business (1) When:03/09/2022 11:15:00 [facility]09-08-2022 NoteProcedure The risk/benefits of the procedure were [...] Education Routine Capillary Glucose POC Saline Lock InsertSt. Rita'S HospitalComment on above:Result Comment: Electronically Signed By: Camilo STARK, Kushal Moran.br\Date and Time Signed: 02/05/22 06:47 [id number] Evaluation + Plan note Future Scheduled Tests Laboratory* Basic Metabolic Panel 06/06/21 [facility]05-12-2021 Hospital Discharge instructions* Follow Up Appointment 1:Physician/Dept/Service: Kaity Zapata (VIN N.PKami)Scheduled Date/Time: :30Location: VIN Romano officePhone Number: [phone] [facility]05-10-2021 History of Present illness Narrative* 65-year-old male who is followed for persistent atrial fibrillation. He underwent antiarrhythmic drug loading with sotalol October 07, 2020 and presents to the office today for follow-up evaluation. His carvedilol was discontinued due to heart rates in the 40s post drug loading. He did require cardioversion on October 09, 2020 for voodoo of sinus rhythm. * Since the last [...] per 2D echocardiogram dated June 07, 2020, [place] [employer] class II, stage B heart [...] software was utilized to prepare this document. [facility] 320 DO Work Phone: 1([phone]) [phone] History of Present illness Narrative* 65-year-old male who is followed for persistent atrial fibrillation. He underwent antiarrhythmic drug loading with sotalol October 07, 2020 and presents to the office today for follow-up evaluation. His carvedilol was discontinued due to heart rates in the 40s post drug loading. He did require cardioversion on October 09, 2020 for voodoo of sinus rhythm. * Since the last [...] per 2D echocardiogram dated June 07, 2020, [place] [employer] class II, stage B heart [...] software was utilized to prepare this document. [facility] Work Phone: Evaluation + Plan note Future Appointments Appointment Date:01/23/2022 03:00:00 PM Scheduled Provider:Kushal Page MD Location:.[facility]iology Clinic Appointment Type:Cardiology Follow Up (FT) Future Scheduled Tests Laboratory* Basic Metabolic Panel 06/06/21 Radiology* NM Myocardial Spect Rest/Stress 2 Day 12/05/21 [facility] Future Appointments Appointment Date:02/05/2022 08:00:00 AM Scheduled Provider: [facility] (FT) Future Scheduled Tests Laboratory* Basic Metabolic Panel 06/06/21 Radiology* CV Cardiovascular 02/05/22 [facility] Future Appointments Appointment Date:09/08/2022 03:15:00 PM Scheduled Provider:Kushal Page MD [facility] Type:Cardiology Follow Up (FT) Future Scheduled Tests Laboratory* Basic Metabolic Panel 1/7/22 [facility]* Musculoskeletal: ROM intact, no joint swelling, [...] wounds, or clubbingPsychological: Appropriate mood and behavior [facility] N[facility] Other Evaluation note* Diagnosis Paroxysmal atrial fibrillation (CMS/HCC) Atrial fibrillation 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 Ischemic cardiomyopathy Other specified forms of chronic ischemic heart disease Chronic systolic congestive heart failure, NYHA class 2 (CMS/HCC) Hypercoagulable state due to paroxysmal atrial fibrillation (CMS/HCC) Medication course changed Mixed hyperlipidemia High risk medication use documented in this encounter [facility] Work Phone: Evaluation note* Diagnosis SOB (shortness of breath) Shortness of breath Edema, unspecified type Chronic systolic congestive heart failure, NYHA class 2 (Multi) Ischemic cardiomyopathy Other specified forms of chronic ischemic heart disease 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 Paroxysmal atrial fibrillation (Multi) Atrial fibrillation Lower leg edema High risk medication use Hypercoagulable state due to paroxysmal atrial fibrillation (Multi) Unspecified atrial fibrillation (Multi) Sleep apnea treated with continuous positive airway pressure (CPAP) Mixed hyperlipidemia Medication course changed documented in this encounter [facility] Work Phone: Evaluation note* Diagnosis SOB (shortness of breath) Shortness of breath Chronic systolic congestive heart failure, NYHA class 2 (Multi) Ischemic cardiomyopathy Other specified forms of chronic ischemic heart disease documented in this encounter [facility] Work Phone: Evaluation note* Diagnosis 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- Primary Ischemic cardiomyopathy [...] Lower leg edema documented in this encounter [facility] Work Phone: Evaluation note* Diagnosis SOB (shortness of breath) Shortness of breath 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 High risk medication use Medication course changed Paroxysmal atrial fibrillation (Multi) Atrial fibrillation Ischemic cardiomyopathy Other specified forms of chronic ischemic heart disease Chronic systolic congestive heart failure, NYHA class 2 (Multi) BMI 50.0-59.9, adult (Multi) Lower leg edema Sleep apnea treated with continuous positive airway pressure (CPAP) Lipid screening Screening for lipoid disorders documented in this encounter [facility] Work Phone: Evaluation note* Diagnosis Persistent atrial fibrillation (Multi) Atrial fibrillation Sinus node dysfunction (Multi) 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 Dyslipidemia Other and unspecified hyperlipidemia Primary hypertension Unspecified essential hypertension Chronic systolic congestive heart failure, NYHA class 2 SOB (shortness of breath) Shortness of breath High risk medication use Sleep apnea treated with continuous positive airway pressure (CPAP) BMI 50.0-59.9, adult (Multi) Never smoked tobacco Unspecified atrial fibrillation (Multi) Mixed hyperlipidemia Edema, unspecified type documented in this encounter [facility] Work Phone: History general Narrative - Reported* Type Description Date Medical History Gout Medical History Depression Medical History HTN Medical History stroke Medical History Atrial fibrillation Medical History DM Surgical History Back surgery Surgical History Hernia Surgical History Mass removed from skin of neck Surgical History heart cath with stent placed Hospitalization History See past surgical hx Hospitalization History Stroke 05/2019 [facility] Other History of Present illness Narrative* Patient is new to this provider, he is accompanied by his who works at [employer] in the cafeteria. Prior records were reviewed, [...] function test, and Lexiscan stress test at [facility]. He states he has absolutely no energy and is easily fatigued, he is short of breath and he has a nonproductive cough. He denies fever or chills. He isaccompanied by his who questions whether he may change his cardiology follow-up to [facility] due to proximity to home. * Patient wishes to establish care at [facility]. Predominant complaints are unrelenting fatigue, short-term [...] per 2D echocardiogram dated June 07, 2020, [place] [employer] class II, stage B heart failure. * 10. Gouty arthritis. Patient remains on allopurinol, no recent recurrence. * 11. Abnormal perfusion imaging showing an LV ejection fraction in the 20s, with subsequent cardiac catheterization showing LV ejection fraction of 45%, this was done at [facility] and that particular Catheterization did not [...] ALT and AST mildly elevated hemoglobin 13.4. [facility] 250 DO Work Phone: History of Present illness Narrative* Patient with atherosclerotic tule river vessel coronary artery disease, multiple cardiac risk [...] per 2D echocardiogram dated June 07, 2020, [place] [employer] class II, stage B heart failure. * 10. Gouty arthritis. Patient remains on allopurinol, no recent recurrence. * 11. Abnormal perfusion imaging showing an LV ejection fraction in the 20s, with subsequent cardiac catheterization showing LV ejection fraction of 45%, this was done at [facility] and that particular Catheterization did not [...] will defer to sleep medicine * Recommendations: [facility]-Carla French DO Work Phone: History of Present illness Narrative* Patient with atherosclerotic t[place] river vessel coronary artery disease, multiple cardiac risk [...] per 2D echocardiogram dated June 07, 2020, [place] [employer] class II, stage B heart failure. * 10. Gouty arthritis. Patient remains on allopurinol, no recent recurrence. * 11. Abnormal perfusion imaging showing an LV ejection fraction in the 20s, with subsequent cardiac catheterization showing LV ejection fraction of 45%, this was done at [facility] and that particular Catheterization did not [...] will defer to sleep medicine * Recommendations: [facility] Work Phone: Hospital course Narrative No data available for this section [facility] No data available for this section [facility] No data available for this section [facility] for referral (narrative)* Consultation (Routine) - Authorized Specialty Diagnoses / Procedures Referred By Contac t Referred To Contact Cardiology Diagnoses SOB (shortness of breath) 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 Procedures Follow Up In Cardiology Leonel Billy APRN-AMUSEMENT [employer] MECHANIC [address] [facility] [place] [address] Margret Stevens MD [address] [facility] [address] [place] [address] Referral ID Status Reason Start Date Expiration Date V isits Requested Visits Authorized [id number] Authorized 12/15/2023 12/14/[address] [facility] Work Phone: Reason for referral (narrative)* Consultation (Routine) - Authorized Specialty Diagnoses / Procedures Referred By Contac t Referred To Contact Cardiology Diagnoses Paroxysmal atrial fibrillation (Multi) Procedures Follow Up In Cardiology Margret Stevens MD [address] [address] Margret Stevens MD [address] [address] Referral ID Status Reason Start Date Expiration Date V isits Requested Visits Authorized [id number] Authorized 01/17/2024 01/16/2025 1 1 * Cardiovascular (Routine) - Authorized Specialty Diagnoses / Procedures Referred By Carissaac t Referred To Contact Diagnoses Paroxysmal atrial fibrillation (Multi) Procedures ECG 12 Lead Margret Stevens MD [address] [address] Referral ID Status Reason Start Date Expiration Date V isits Requested Visits Authorized [id number] Authorized 01/17/2024 01/16/[address] [facility] Work Phone: Chief Complaint Patient is here [...] function test, and Lexiscan stress test at [facility]. He states he has absolutely no energy andis easily fatigued, he is short of breath and he has a nonproductive cough. He denies fever or chills. He is accompanied by his who questions whether he may change his cardiology follow-up to [facility] due to proximity to home. * [...] per 2D echocardiogram dated June 07, 2020, [place] [employer] class II, stage B heart failure. * 10. Gouty arthritis. * Recommendations: * 1. Continue current medications as prescribed. * 2. I discussed with the patient that he may follow-up with a head inspector in [facility] as requested. He was instructed to notify [facility] if he requires any medical records to [...] COMPL SPEC&COLR D Margret Stevens MD [address] [place] [address] Referral ID Status Reason Start Date Expiration Date Visits Requested Visits Authorized [id number] Pending Review Perform Procedure 10/04/2023 10/03/2024 1 1 Specialty Diagnoses / Procedures Referred By Contac t Referred To Contact Diagnoses Paroxysmal atrial fibrillation (Multi) Procedures ECG 12 Lead Margret Stevens MD [address] [place] [address] Referral ID Status Reason Start Date Expiration Date V isits Requested Visits Authorized [id number] Authorized 10/04/2023 10/03/2024 1 1 Specialty Diagnoses / Procedures Referred By Contac t Referred To Contact Cardiology Diagnoses Ischemic cardiomyopathy Procedures Follow Up In Cardiology Margret Stevens MD [address] [facility] [address] [place] [address] Margret Stevens MD [address] [facility] [address] [place] [address] Referral ID Status Reason Start Date Expiration Date V isits Requested Visits Authorized [id number] Authorized 10/04/2023 10/03/2024 1 1 Specialty Diagnoses / Procedures Referred By Contac t Referred To Contact Cardiology Diagnoses Ischemic cardiomyopathy Chronic systolic congestive heart failure, NYHA class 2 (CMS/HCC) Procedures Transthoracic Echo Complete KS ECHO TTHRC R-T 2D W/WOM-MODE COMPL SPEC&COLR D Margret Stevens MD [address] [facility] [address] [place] [address] Referral ID Status Reason Start Date Expiration Date Visits Requested Visits Authorized [id number] Pending Review Perform Procedure 07/19/2023 07/18/2024 1 1 Specialty Diagnoses / Procedures Referred By Contac t Referred To Contact Diagnoses Paroxysmal atrial fibrillation (CMS/HCC) Procedures ECG 12 Lead Margret Stevens MD [address] [facility] [address] [place] [address] Referral ID Status Reason Start Date Expiration Date V isits Requested Visits Authorized [id number] Authorized 07/19/2023 07/18/2024 1 1 Specialty Diagnoses / Procedures Referred By Silvina t Referred To Contact Cardiology Diagnoses Paroxysmal atrial fibrillation (CMS/HCC) 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 Ischemic cardiomyopathy Procedures Follow Up In Cardiology Margret Stevens MD [address] [facility] [address] [place] [address] Margret Stevens MD [address] [place] [address] Referral ID Status Reason Start Date Expiration Date V isits Requested Visits Authorized [id number] Authorized 07/19/2023 07/18/2024 1 1 Reason 07/06/22 [place] office, scanning recent documents we have from [facility], but we do not have all of them Diagnosis 1 Coronary artery dise ase involving t[place] coronary artery of [place] heart without angina pectoris (I25.10) Referral Organization [facility] conrad Referring Provider First Name Beena Referring Provider Last Name Jeyson Referring Provider Specialty [facility] Referred Organization [facility] Referred Provider Albaro Au Referred Address [address] [place] [address] [place],[address] Referred Provider Specialty Internal Med icine Referral Priority Routine Referral Appointment Date 2022-07-06 General Notes Gerri Davis 11:54:25 AM >received today, ins card attached along with previous [facility] note. referral faxed to Gerri Stapleton 06/25/2022 [...] section and content) DATE CREATED AUTHOR 07/24/2021 [facility] DATE CREATED AUTHOR AUTHOR'S ORGANIZ ATION 09/12/2022 [facility] DATE CREATED AUTHOR AUTHOR'S ORGANIZ ATION 09/26/2022 [facility] DATE CREATED AUTHOR AUTHOR'S ORGANIZ ATION 11/06/2022 [facility] DATE CREATED AUTHOR AUTHOR'S ORGANIZ ATION 02/16/2023 [facility] DATE CREATED AUTHOR AUTHOR'S ORGANIZ ATION 02/16/2023 [facility] DATE CREATED AUTHOR AUTHOR'S ORGANIZ ATION 12/18/2023 [facility] DATE CREATED AUTHOR AUTHOR'S ORGANIZ ATION 07/18/2024 [facility] Fiscal Manager Team (unrecognized sect ion and content) 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 Relationship Specialty Start Date End Date Beena Benítez MD [address] [place] [address] [place] [address] PCP - General Family Medicine 07/19/23 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 Relationship Specialty Start Date End Date Beena Benítez MD PCP - General Family Medicine 07/19/23 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 Relationship Specialty Start Date End Date Beena Benítez MD PCP - General Family Medicine 07/19/23 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 Relationship Specialty Start Date End Date Beena Benítez MD PCP - General Family Medicine 07/19/23 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 Relationship Specialty Start Date End Date Beena Benítez MD [address] [facility] [place] [address] [place] [address] PCP - General Family Medicine 01/17/24 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 Relationship Specialty Start Date End Date Beena Benítez MD [address] [facility] [place] [address] [place] [address] PCP - General Family Medicine 01/17/24 REASON FOR VISIT (unrecogniz ed section and content) Reason Comments Follow-up 5 month Specialty Diagnoses / Procedures Referred By Contac t Referred To Contact Diagnoses Paroxysmal atrial fibrillation (CMS/HCC) Procedures ECG 12 Lead Margret Stevens MD [address] [address] Referral ID Status Reason Start Date Expiration Date V isits Requested Visits Authorized [id number] Authorized 07/19/2023 07/18/2024 1 1 Reason Comments Follow-up Sooner OV - last wed lower edema, med change Specialty Diagnoses / Procedures Referred By Contac t Referred To Contact Cardiology Diagnoses SOB (shortness of breath) Edema, unspecified type Procedures Follow Up In Cardiology Margret Stevens MD [address] [facility] [address] [place] [address] Margret Stevens MD [address] [facility] [address] [place] [address] Referral ID Status Reason Start Date Expiration Date V isits Requested Visits Authorized [id number] Authorized 09/23/2023 09/22/2024 1 1 Specialty Diagnoses / Procedures Referred By Contac t Referred To Contact Cardiology Diagnoses SOB (shortness of breath) Chronic systolic congestive heart failure, NYHA class 2 (Multi) Ischemic cardiomyopathy Procedures Transthoracic Echo Complete [place] ECHO TTHRC R-T 2D W/WOM-MODE COMPL SPEC&COLR D Margret Stevens MD [address] [place] [id number] Referral ID Status Reason Start Date Expiration Date Visits Requested Visits Authorized [id number] Authorized Perform Procedure 10/04/2023 10/03/2024 1 1 Reason Comments Follow-up Echo results Specialty Diagnoses / Procedures Referred By Contac t Referred To Contact Cardiology Diagnoses Ischemic cardiomyopathy Procedures Follow Up In Cardiology Margret Stevens MD [address] [place] [id number] Margret Stevens MD [address] [place] [phone] Referral ID Status Reason Start Date Expiration Date V isits Requested Visits Authorized [id number] Authorized 10/04/2023 10/03/2024 1 1 Reason Comments Follow-up 1m Specialty Diagnoses / Procedures Referred By Contac t Referred To Contact Cardiology Diagnoses SOB (shortness of breath) 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 Procedures Follow Up In Cardiology Leonel Billy, [employer]ODUCE SPECIALIST[employer] [address] [facility] [address], [address] [address] Margret Stevens MD [address] [place] [phone] Referral ID Status Reason Start Date Expiration Date V isits Requested Visits Authorized [id number] Authorized 12/15/2023 12/14/2024 1 1 Reason Comments Annual Exam Specialty Diagnoses / Procedures Referred By Contac t Referred To Contact Cardiology Diagnoses Paroxysmal atrial fibrillation (Multi) 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 Ischemic cardiomyopathy Procedures Follow Up In Cardiology Margret Stevens MD Phone: tel: fax: Margret Stevens MD [address] [place] [phone] Phone: tel: fax: Referral ID Status Reason Start Date Expiration Date V isits Requested Visits Authorized [id number] Authorized 07/19/2023 07/18/2024 1 1 FOR RECORDS [...] BE BASED ON THE PRIMARY CLINICAL RECORDS. [employer] provides no warranty or guarantee of the accuracy or completeness of information in this document.
[2024-08-04 08:04] LABS: Basophils Percent Auto 0.3 % (0.2-2.0); Eosinophils Absolute Auto 0.2 10^3/uL (0.0-0.7); Eosinophils Percent Auto 2.5 % (0.9-7.0); Hematocrit 40.6 % (42.0-54.0); Hemoglobin 13.8 g/dL (14.0-18.0); Immature Granulocytes Abs Auto 0.01 10^3/uL (0.00-0.03); Immature Granulocytes Pct Auto 0.1 % (0.0-0.5); Lymphocytes Absolute Auto 1.8 10^3/uL (1.2-3.8); Lymphocytes Percent Auto 27.5 % (20.5-60.0); Mean Corpuscular Hemoglobin 31.1 pg (25.9-34.0); Mean Corpuscular Volume 91.4 fL (80.0-94.0); Monocytes Absolute Auto 0.5 10^3/uL (0.3-0.8); Monocytes Percent Auto 7.9 % (1.7-12.0); Neutrophils Absolute Auto 4.1 10^3/uL (1.4-6.5); Neutrophils Percent Auto 61.7 % (43.0-75.0); Platelet Count 160 10^3/uL (150-450); Red Blood Count 4.44 10^6/uL (4.70-6.10); Red Cell Distribution Width 12.8 % (11.0-15.0); White Blood Count 6.7 10^3/uL (4.0-11.0)
[2024-08-04 08:27] LABS: Estimated Average Glucose 148 mg/dL; Glycohemoglobin A1C 6.8 % (4.5-6.2)
[2024-08-04 17:47] LABS: Creatinine Urine Random 120.26 mg/dL (20.00-300.00); Microalbumin Urine Random <1.3 mg/dL (<=30.0)
[2024-08-04 18:55] LABS: Alanine Aminotransferase 43 U/L (16-63); Anion Gap 15.5; Aspartate Amino Transferase 23 U/L (15-37); BUN Creatinine Ratio 17.7; Bilirubin Total 0.4 mg/dL (0.2-1.0); Carbon Dioxide 24.9 mmol/L (21.0-32.0); Chloride 102 mmol/L (98-107); Estimated GFR (African America >60 (>=60 mL/min/1.73m^2); Estimated GFR (Non-African Ame >60 (>=60 mL/min/1.73m^2); Glucose 128 mg/dL (74-106); Potassium 4.4 mmol/L (3.5-5.1); Sodium 138 mmol/L (136-145)
[2024-08-04 18:56] LABS: Albumin Globulin Ratio 1.2; Albumin Level 3.9 g/dL (3.4-5.0); Alkaline Phosphatase 62 U/L (46-116); Cholesterol 109 mg/dL (<=200); Globulin 3.2 g/dL; HDL Cholesterol 51 mg/dL (40-60); Total Protein 7.1 g/dL (6.4-8.2); Triglycerides 148 mg/dL (<=150); VLDL CHOLESTEROL 29.6 mg/dL
[2024-08-04 18:57] LABS: Thyroid Stimulating Hormone 2.239 uIU/mL (0.358-3.740)
== END 2024-08-04 07:39 | disposition home or self-care (01) ==
LOC: LAB 07:39
PROVIDERS: PCP Family Medicine; Visit Provider Family Medicine
DX: I25.10 Atherosclerotic heart disease of native coronary artery without angina pectoris (principal); I10 Essential (primary) hypertension; E11.9 Type 2 diabetes mellitus without complications; Z12.5 Encounter for screening for malignant neoplasm of prostate
CPT/HCPCS: 36415; 80053; 80061; 82043; 82570; 83036; 84443; 85025; G0103